=== PATIENT | female | born 1955 | race Caucasian/White ===

== ENCOUNTER → 2019-10-06 13:11 | Outpatient (CLI) | payer MEDICARE, SELFPAY ==
[2019-10-02 13:24] VITALS: BMI 34.9
--- NOTE | 2019-10-06 13:19 | CT_ITS ---
STUDY: CTA OF THE ABDOMINAL AORTA AND BILATERAL LOWER EXTREMITIES REASON FOR EXAM: Female, 64 years old. ATHEROSCLEROSIS OF AORTA, LT LEG PAIN/CRAMPING, PVD, LT LEG WORSE THAN RT, TOES ON LT FOOT TURNING BLACK, DIABETIC ULCER ON LT FOOT, HX-CVA X 2, HTN, DB -- UNABLE TO TRACE A RT PERONEAL RADIATION DOSAGE (If Supplied By Facility): CTDIvol = ( 5.81 ) mGy, DLP = ( 1579.8 ) mGycm TECHNIQUE: Axial CT angiography multi-detector data acquisition was obtained from the lung bases to the toes following intravenous administration of 75ML ISOVUE 370. Axial images and MIP images were reconstructed from the axial data set. Post-processing of the angiographic images was performed, with multiplanar reformation and 3D reconstruction. Individualized dose optimization techniques were used for this CT. TECHNICAL QUALITY: Good COMPARISON: None. Descriptors of Narrowing: None (0%) Mild (< 50%) Moderate (50-70%) Severe (70-90%) Subtotal/Total Occlusion (90-100%) Non-Evaluable (technically non-diagnostic FINDINGS: Abdominal aorta: There is mild diffuse narrowing. Celiac and superior mesenteric arteries: No demonstrated narrowing. Inferior mesenteric artery: No demonstrated narrowing. Right renal artery(arteries): No demonstrated narrowing. Left renal artery(arteries): No demonstrated narrowing. Small accessory left renal artery is patent as well. Right common iliac artery: No demonstrated narrowing. Right external iliac artery: No demonstrated narrowing. Right internal iliac artery: There is mild diffuse narrowing. Left common iliac artery: No demonstrated narrowing. Left external iliac artery: No demonstrated narrowing. Left internal iliac artery: There is mild diffuse narrowing. RIGHT LOWER EXTREMITY Right common femoral artery: There is mild diffuse narrowing. Right profundus femoris: No demonstrated narrowing. Right superficial femoral: Moderately diseased right superficial femoral artery with a focal severe (80%) stenosis of the adductor canal. Right popliteal artery: Moderately diseased right popliteal artery with a focal severe (80%) stenosis at the superior pole of the patella. Right tibioperoneal trunk: No demonstrated narrowing. Right anterior tibial artery: No demonstrated narrowing. Right posterior tibial artery: Occluded posterior tibial artery with reconstitution at the ankle by the peroneal artery. Right peroneal artery: No demonstrated narrowing. LEFT LOWER EXTREMITY Left common femoral artery: There is mild diffuse narrowing. Left profundus femoris: No demonstrated narrowing. Left superficial femoral: Moderately diffusely diseased left superficial femoral artery with a long segment occlusion at the adductor canal extending to the above-knee popliteal artery. Left popliteal artery: There is moderate diffuse narrowing. Left tibioperoneal trunk: No demonstrated narrowing. Left anterior tibial artery: No demonstrated narrowing. Left posterior tibial artery: No demonstrated narrowing. Left peroneal artery: No demonstrated narrowing. CT/CTA Abd w/Runoff W/WO Contrast IMPRESSION: 1. Mildly diseased abdominal aorta and iliac arteries. 2. No chronic mesenteric ischemia renal artery stenosis. 3. Moderately diseased right superficial femoral artery with a focal severe (80%) stenosis at the adductor canal and a moderately diseased right popliteal artery with another focal severe (80%) stenosis at the superior pole of the patella. Two-vessel runoff on the right with an occluded right posterior tibial artery with reconstitution by the peroneal artery at the ankle. 4. Moderately diseased left superficial femoral artery with a long segment occlusion extending from the adductor canal to the above-knee popliteal artery. Moderately diseased left popliteal artery. Three-vessel runoff. Electronically Signed: Andrade Ratliff MD at 16:49 EST Tel , Service support ,
[2019-10-06 13:46] LABS: CREATININE FINGERSTICK 1.8 mg/dL (0.55-1.02)
== END ==
PROVIDERS: Family Provider Internal Medicine; PCP Internal Medicine; Referring Provider Surgery Vascular Surgery; Visit Provider Surgery Vascular Surgery
DX: I70.0 Atherosclerosis of aorta (principal); I73.9 Peripheral vascular disease, unspecified
CPT/HCPCS: 75635; Q9967

== ENCOUNTER → 2019-10-10 09:51 | Outpatient (CLI) | payer MEDICARE, SELFPAY ==
[2019-10-02 13:24] VITALS: BMI 34.9
[2019-10-09 09:44] LABS: AST(SGOT) 16 U/L (15-37); Alanine Aminotransfer ALT/SGPT 29 U/L (13-56); Albumin, Serum 3.2 g/dL (3.2-5.0); Alkaline Phosphatase 103 U/L (45-117); Anion Gap 2 (5-15); BUN 45 mg/dL (7-18); BUN/Creat Ratio 26.5 RATIO (10-20); Bilirubin, Direct 0.09 mg/dL (0.00-0.30); Calcium,Total 10.1 mg/dL (8.5-10.1); Chloride 109 mmol/L (98-107); Cholesterol 193 mg/dL (200); EST Glomerular Filtration Rate 32 mL/min (>60); Est Glom Filt Rate - Afr Amer 39 mL/min (>60); Globulin 4.4 g/dL (2.2-4.2); Glucose 127 mg/dL (74-106); High Density Lipoprotein 56 mg/dL; Potassium 4.6 mmol/L (3.5-5.1); Protein, Total 7.6 g/dL (6.4-8.2); Sodium Level 140 mmol/L (136-145); Triglycerides 186 mg/dL; Very Low Density Lipoprotein 37 mg/dL (5-40)
--- NOTE | 2019-10-10 09:52 | CDU_ITS ---
Reason For Study: CVA Rt. Velocities/BP Lt. Velocities/BP Prox CCA 128.4/9.7 cm/sec. Prox CCA 88.8/16.3 cm/sec. Mid CCA 91.2/15.1 cm/sec. Mid CCA 92.5/18.8 cm/sec. Dist CCA 70.7/16.8 cm/sec. Dist CCA 68.5/16.8 cm/sec. Prox ICA 143/33.4 cm/sec. Prox ICA 64.2/20 cm/sec. Mid ICA 124.7/37.1 cm/sec. Mid ICA 102.3/32.3 cm/sec. Dist ICA 79/22.5 cm/sec. Dist ICA 109.7/32.3 cm/sec. Rt. ICA/CCA = 1.57. Lt. ICA/CCA = 1.24. Prox ECA 133.9/9.7 cm/sec. Prox ECA 112.1/6.5 cm/sec. Rt. Vert. 39.9/9.1 cm/sec. Lt. Vert. 52.2/14.5 cm/sec. Right Extracranial There is intimal thickening but no significant atherosclerotic plaque noted in the right common carotid artery. There is heterogeneous, irregular atherosclerotic plaque noted in the right internal carotid artery. There is intimal thickening but no significant atherosclerotic plaque noted in the right external carotid artery. Antegrade flow is noted in the right vertebral artery. Left Extracranial There is homogeneous, smooth atherosclerotic plaque noted in the left common carotid artery. There is intimal thickening but no significant atherosclerotic plaque noted in the left internal carotid artery. There is intimal thickening but no significant atherosclerotic plaque noted in the left external carotid artery. Antegrade flow is noted in the left vertebral artery. Procedure Carotid Duplex [id number]. Exam performed in department. Interpretation Summary Heterogenous calcific plaque with shadowing at the proximal right internal carotid 50-69% stenosis right internal carotid <50% stenosis right external carotid No hemodynamically significant plaque left internal carotid with <50% stenosis <50% stenosis left external carotid Patent, antegrade, <50% stenosis bilateral vertebrals Ordering Physician: Cristhian Glover Referring Physician: Pili Crespo M.D. Performed By: Shirley Polk RVT
== END ==
PROVIDERS: Family Provider Internal Medicine; PCP Internal Medicine; Referring Provider Internal Medicine Cardiovascular Disease; Visit Provider Internal Medicine Cardiovascular Disease
DX: E11.9 Type 2 diabetes mellitus without complications (principal); I10 Essential (primary) hypertension; E78.5 Hyperlipidemia, unspecified; Z79.4 Long term (current) use of insulin; Z86.73 Personal history of transient ischemic attack (TIA), and cerebral infarction without residual deficits
CPT/HCPCS: 36415; 80048; 80061; 80076; 93880

== ENCOUNTER → 2019-10-14 14:54 | Outpatient (CLI) | payer MEDICARE, SELFPAY ==
[2019-10-02 13:24] VITALS: BMI 34.9
--- NOTE | 2019-10-14 14:59 | ECHOD_ITS ---
Reason For Study: Abnormal EKG Procedure This was a 2D Doppler, Color Flow transthoracic echocardiogram. Exam performed in department. Left Ventricle Normal size and thickness. The estimated ejection fraction is 65 %. Stage 1 diastolic dysfunction. No regional wall motion abnormalities noted. Right Ventricle Normal size and thickness. Normal systolic function. Atria Normal left atrium. Normal right atrium. Normal atrial septum. Mitral Valve The mitral valve is structurally normal. No prolapse or stenosis seen. Mild mitral annular calcification extending into the posterior leaflet. Tricuspid Valve Normal tricuspid valve. Unable to estimate RV systolic pressure due to insufficient tricuspid regurgitant envelope. Pulmonic Valve Normal pulmonic valve. Great Vessels Normal aortic root. Normal arch. Normal inferior vena cava. Inferior vena cava collapse with sniff. Pericardium/Pleural No pericardial effusion. MMode/2D Measurements & Calculations LVIDd: 4.2 cm IVSd: 1.5 cm Ao root diam: 3.3 cm LVIDs: 2.7 cm LVPWd: 1.4 cm LA dimension: 3.5 cm RVDd: 2.7 cm FS: 35.4 % LAV(MOD-bp): 35.0 ml LA A4 area: 14.6 cm2 RA A4 area: 9.5 cm2 LAV(MOD-bp) Indexed: 18.9 ml/m2 LAV(MOD-sp2): 32.3 ml LAV(MOD-sp4): 37.2 ml Time Measurements MV dec time: 0.15 sec Doppler Measurements & Calculations MV E max fabrice: 94.8 cm/sec Lat Peak E' Fabrice: 6.8 cm/sec Med Peak E' Fabrice: 6.5 cm/sec MV A max fabrice: 124.2 cm/sec E/E' lat: 13.9 E/E' med: 14.5 MV E/A: 0.76 MV V2 max: 133.9 cm/sec MV P1/2t max fabrice: 103.0 cm/sec Ao V2 max: 142.5 cm/sec MV max P.2 mmHg MV P1/2t: 62.8 msec Ao max P.1 mmHg MV V2 mean: 74.6 cm/sec Ao V2 mean: 85.3 cm/sec MV mean P.6 mmHg MV dec slope: 480.7 cm/sec2 Ao mean P.4 mmHg MV V2 VTI: 22.0 cm MVA(P1/2t): 3.5 cm2 Ao V2 VTI: 25.2 cm LV V1 max: 109.4 cm/sec PA V2 max: 82.8 cm/sec LV V1 max P.8 mmHg LV V1 mean P.2 mmHg LV V1 mean: 68.1 cm/sec LV V1 VTI: 21.0 cm Interpretation Summary The estimated ejection fraction is 65 %. Stage 1 diastolic dysfunction. Unable to estimate RV systolic pressure due to insufficient tricuspid regurgitant envelope. Ordering Physician: Cristhian Glover Referring Physician: Cristhian Glover Performed By: Maxi Grossman RCS
== END ==
PROVIDERS: Family Provider Internal Medicine; PCP Internal Medicine; Referring Provider Internal Medicine Cardiovascular Disease; Visit Provider Internal Medicine Cardiovascular Disease
DX: R94.31 Abnormal electrocardiogram [ECG] [EKG] (principal); Z86.73 Personal history of transient ischemic attack (TIA), and cerebral infarction without residual deficits; E11.9 Type 2 diabetes mellitus without complications; G47.33 Obstructive sleep apnea (adult) (pediatric); Z79.4 Long term (current) use of insulin
CPT/HCPCS: 93306

== ENCOUNTER → 2019-10-24 10:17 | Outpatient (CLI) | payer MEDICARE, SELFPAY ==
[2019-10-02 13:24] VITALS: BMI 34.9
--- NOTE | 2019-10-24 10:20 | STEWCON_ITS ---
Reason For Study: PRE OPERATIVE Stress Results Protocol: Dobutamine Stress Echo With Definity Maximum Predicted HR: 158 bpm Target HR: 134 bpm % Maximum Predicted HR: 85 % DurationHeart Rate Stage (mm:ss) (bpm) BP Dose Comment BASELINE 87 170/70 8 CC DEFINITY FOR TEST STAGE 1 3:00 96 178/6010.00 STAGE 2 3:00 121 182/6020.00 STAGE 3 3:10 134 186/5830.00 RECOVERY 94 142/70 Stress Duration: 9:10 mm:ss Maximum Stress HR: 134 bpm Baseline Echocardiogram Findings The estimated ejection fraction is 65 %. Stress Echo Wall motion Data Resting WM Intermediate WM Stress WM Resting Wall Motion Wall Motion Stress No regional wall motion No regional wall motion abnormalities noted. abnormalities noted. EKG Data The baseline ECG displays normal sinus rhythm. The patient was titrated from 10 mcg to a maximun of 30 mcg of dobutamine during the stress. The maximum heart rate attained was 136 beats per minute. This was 86% of maximum predicted heart rate. During dobutamine infusion, there were no ST or T wave changes noted to suggest ischemia. No clinical angina was noted. No arrhythmias noted. Interpretation Summary The estimated ejection fraction is 65 %. Normal, adequate, dobutamine echocardiogram. Negative for ischemia by EKG and echocardiographic criteria. No anginal symptoms noted. No arrhythmias noted. Hypertensive blood pressure response to dobutamine. Final LVEF is 75%. Test terminated due to the attainment target heart rate. Decrease sensitivity due to poor echo windows requiring Definity agent. No complications. The study was technically difficult. Contrast injection was performed. Ordering Physician: Cristhian Glover Referring Physician: Cristhian Glover Performed By: Mila Max, JOURDAN, RVT
== END ==
PROVIDERS: Family Provider Internal Medicine; PCP Internal Medicine; Referring Provider Internal Medicine Cardiovascular Disease; Visit Provider Internal Medicine Cardiovascular Disease
DX: Z01.810 Encounter for preprocedural cardiovascular examination (principal); E11.40 Type 2 diabetes mellitus with diabetic neuropathy, unspecified; E11.65 Type 2 diabetes mellitus with hyperglycemia; E11.9 Type 2 diabetes mellitus without complications; I10 Essential (primary) hypertension; E78.5 Hyperlipidemia, unspecified; I69.359 Hemiplegia and hemiparesis following cerebral infarction affecting unspecified side; I73.9 Peripheral vascular disease, unspecified; G47.33 Obstructive sleep apnea (adult) (pediatric); Z79.4 Long term (current) use of insulin
CPT/HCPCS: 93017; 93350; J7040; Q9957; A4216; C8928

== ENCOUNTER 2019-11-27 12:27 | Emergency (ER) | payer MEDICARE, SELFPAY ==
[2019-10-02 13:24] VITALS: BMI 34.9
[2019-11-27 12:29] VITALS: BP 124/58; PULSE 85; RESP 16; TEMP 36.1; O2SAT 98; BMI 34.2
--- NOTE | 2019-11-27 12:46 | ED.VIS.GEN ---
History of Present Illness Chief Complaint: Abn Labs Detail of Chief Complaint: Dyspnea, fatigue and hemoglobin of 6.1 Informant: Patient, Significant Other, PCP Onset: Days Context: Gradual Onset Timing: Continuous Quality: Symptomatic anemia Location: Patient reports bleeding from external hemorrhoid several days ago Current Severity: No active bleeding past several days Maximum Severity: Moderate Worsened by: Blood with bowel movement Relieved by: Nothing Associated Symptoms: Fatigue, dyspnea, generalized weakness Narrative: Patient is 64-year-old woman with history of peripheral disease secondary diabetes who underwent revascularization of her left lower extremity at [facility]. She was admitted from November 05 to November 12. She was [facility]. Hemoglobin today 6.1. Was 7.5. Patient states she had significant bleeding per rectum with bright red blood secondary to hemorrhoids. She states it was much more than prior. She apparently passed clots. She complains of generalized fatigue. She does not give orthostatic symptoms. She denies anginal symptoms. She does report dyspnea with exertion. She denies bleeding from her gums. She denies blood in her urine. She is on Plavix and Eliquis because of recent surgery with placement of stent and revascularization of the left lower extremity. 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 Prior similar symptoms: No Recent Illness/Hospitalization: Yes - Past Medical History (1) Diabetic neuropathy Status: Acute (2) Constitutional obesity Status: Chronic (3) Diabetes mellitus, type II, insulin dependent Status: Chronic (4) Essential hypertension Status: Chronic (5) GERD (gastroesophageal reflux disease) Status: Chronic (6) Gastroparesis Status: Chronic (7) Hemiparesis affecting dominant side as late effect of stroke Status: Chronic (8) Hyperlipidemia Status: Chronic (9) Obstructive sleep apnea Status: Chronic Comment: Uses CPAP (10) Peripheral vascular disease Status: Chronic (11) Proliferative diabetic retinopathy associated with type 2 diabetes mellitus Status: Chronic Past Medical History - Allergies and Home Meds Allergies/Adverse Reactions: Allergies meloxicam Adverse Reaction (Intermediate, Verified 09/29/19 11:59) GI upset Sulfa (Sulfonamide Antibiotics) Adverse Reaction (Intermediate, Verified 09/29/19 11:59) Swelling Primary Care Physician: Pili Crespo MD [Primary Care Provider] - Prior records reviewed: Yes Surgical History: - - Recent placement of stent and graft left lower extremity secondary to peripheral arterial disease Lives: Spouse/ Significant Other Smoking Status: Never smoker Alcohol: None Drugs: None Review of Systems General: Reports: Malaise. Denies: Chills, Fever, Subjective, Sweats Eyes: Denies: Visual changes - bilaterally, Blurred Vision - bilaterally ENT: Denies: Rhinorrhea, Sore throat Cardiovascular: Denies: Chest pain, Palpitations Respiratory: Reports: Dyspnea, Dyspnea on exertion. Denies: Cough, Sputum, Orthopnea Gastrointestinal: Denies: Abdominal pain, Nausea, Vomiting, Diarrhea, Melena, Hematochezia Genitourinary: Denies: Dysuria, Hematuria, Frequency Musculoskeletal: Denies: Myalgias, Arthralgias, Neck pain, Back pain, Swelling, Extremity Pain, -, - Skin: Reports: Wounds - Secondary to surgery which are healing without evidence of infection. Denies: Rash Neurological: Reports: Weakness. Denies: Headache Hematologic: Reports: Easy bruising, Easy bleeding Allergy: Denies: Uticaria, Swelling of the mouth Physical Exam Vital Signs/Narrative: Vital Signs Temp Pulse Resp BP Pulse Ox 11/27/19 12:29 97 F L 85 16 124/58 H 98 Inital Vital Signs reviewed: Yes General: Well nourished, Well developed, Obese, No Acute Distress Head: Normocephalic, Atraumatic Eyes: Perrl, EOMI, Pale conjunctiva. Negative for: Scleral icterus ENT: Moist mucous membranes, No rhinorrhea, TM's clear Neck: Supple, Nontender, No lymphadenopathy, No JVD Cardiovascular: Regular rate, Regular rhythm, No murmurs, Normal S1, Normal S2 Respiratory: No distress, CTA bilaterally, Chest nontender Abdomen: Soft, Nontender, Nondistended, Normal bowel sounds Rectal: - - Evidence of external hemorrhoids. No active bleeding. Stool was brown. Back: Nontender, Normal Inspection Extremities: Nontender, No edema Skin: No rash, Pallor, - - Green of left great, fourth and fifth toe. Negative for: Cyanosis, Diaphoresis, Jaundice Neurological: Alert, Oriented x3, Cranial nerves II-XII grossly intact, Normal Strength, Normal DTR. Negative for: Normal Sensation, Normal Gait Psychological: Normal affect Diagnostic/Tx/Re-eval 11/27/19 13:00 Stool Stool Occult Blood (ANICETO) - Final Laboratory Results 11/27/19 11/27/19 11/27/19 12:54 12:54 13:00 WBC 10.2 RBC 2.43 L Hgb 6.8 L Hct 22.9 L MCV 94.2 MCH 28.0 MCHC 29.7 L RDW Std Deviation 57.4 H RDW Coeff of Petar 17.3 H Plt Count 348 MPV 10.1 Sodium 140 Potassium 4.6 Chloride 109 H Carbon Dioxide 25.0 Anion Gap 6 BUN 50 H Creatinine 1.70 H Estim Creat Clear Calc 27.14 Est GFR (MDRD) Af Amer 39 L Est GFR (MDRD) Non-Af 32 L BUN/Creatinine Ratio 29.4 H Glucose 141 H Calcium 9.6 Blood Type A POSITIVE Antibody Screen NEGATIVE Crossmatch See Detail For occult blood negative. Patient received 1 unit of blood in the emergency department. Will discharge to home. - Medical Decision Making Patient with symptomatic anemia. Will type and cross and transfuse. Suspect the anemia is due to recent surgery and bright red blood per rectum due to hemorrhoids. ED Disposition - Plan for ED Patient: Disposition: Home or Assisted Living Diagnosis: Signs and symptoms of anemia, Bleeding external hemorrhoids Instructions: Hemorrhoids Referrals: Pili Crespo MD [Primary Care Provider] - 3-5 Days if not improving
[2019-11-27 12:58] LABS: Hematocrit 22.9 % (37-47); Hemoglobin 6.8 g/dL (12.0-15.0); Mean Corp Hgb Conc 29.7 g/dL (32-36); Mean Corpuscular Volume 94.2 fL (81-99); Mean Platelet Vol. 10.1 fl (6.2-12.0); Platelet Count 348 K/mm3 (150-450); RBC Distribution Width CV 17.3 % (11.6-14.6); RBC Distribution Width SD 57.4 fl (35.1-43.9); Red Blood Count 2.43 M/mm3 (4.2-5.4); White Blood Count 10.2 K/mm3 (4.4-11.0)
[2019-11-27] MEDS: 0.9% Normal Saline 1,000 ML 150 ML IV (13:05)
[2019-11-27 13:12] LABS: Anion Gap 6 (5-15); BUN 50 mg/dL (7-18); BUN/Creat Ratio 29.4 RATIO (10-20); Calcium,Total 9.6 mg/dL (8.5-10.1); Chloride 109 mmol/L (98-107); EST Glomerular Filtration Rate 32 mL/min (>60); Est Glom Filt Rate - Afr Amer 39 mL/min (>60); Estimated Creatinine Clearance 27.14 ml/min; Glucose 141 mg/dL (74-106); Potassium 4.6 mmol/L (3.5-5.1); Sodium Level 140 mmol/L (136-145)
[2019-11-27 14:01] VITALS: BP 154/68; PULSE 89; RESP 16; TEMP 36.8; O2SAT 98
[2019-11-27 14:16] VITALS: BP 150/71; PULSE 89; RESP 18; TEMP 36.7; O2SAT 98
[2019-11-27 15:10] VITALS: BP 164/71; PULSE 85; RESP 16; TEMP 36.6; O2SAT 98
== END 2019-11-27 16:21 | disposition home or self-care (01) ==
PROVIDERS: Emergency Provider Emergency Medicine; PCP Internal Medicine
DX: D64.9 Anemia, unspecified (principal); K62.5 Hemorrhage of anus and rectum; K64.9 Unspecified hemorrhoids; E11.40 Type 2 diabetes mellitus with diabetic neuropathy, unspecified; E11.51 Type 2 diabetes mellitus with diabetic peripheral angiopathy without gangrene; E11.3599 Type 2 diabetes mellitus with proliferative diabetic retinopathy without macular edema, unspecified eye; I10 Essential (primary) hypertension; I69.359 Hemiplegia and hemiparesis following cerebral infarction affecting unspecified side; E78.5 Hyperlipidemia, unspecified; G47.33 Obstructive sleep apnea (adult) (pediatric); K21.9 Gastro-esophageal reflux disease without esophagitis; Z79.82 Long term (current) use of aspirin; Z79.4 Long term (current) use of insulin; Z79.1 Long term (current) use of non-steroidal anti-inflammatories (NSAID); Z79.899 Other long term (current) drug therapy; Z79.02 Long term (current) use of antithrombotics/antiplatelets; E66.8 Other obesity; Z88.8 Allergy status to other drugs, medicaments and biological substances; Z88.2 Allergy status to sulfonamides
CPT/HCPCS: 36430; 80048; 82274; 85027; 86850; 86900; 86901; 86920; 86922; 96360; 96361; 99284; J7030; J7040; P9016; A4216

== ENCOUNTER 2020-05-14 08:52 | Outpatient (RCR) | payer MEDICARE, SELFPAY ==
[2020-05-14 09:06] VITALS: BP 161/61; PULSE 82; RESP 16; TEMP 36.2; BMI 33.3
--- NOTE | 2020-05-14 12:00 | RAD_ITS ---
STUDY: X-RAY - LEFT FOOT CLINICAL: Female, 65 years old. non healing wound TECHNIQUE: 3 view(s) of the foot. COMPARISON: None. FINDINGS: Normal talus, calcaneus, and tarsal bones. Normal visualized subtalar, talonavicular, calcaneocuboid, tarsal and tarsometatarsal articulations. Metatarsals amputated. Normal metatarsophalangeal joint of the great toe. Normal tibial and fibular sesamoid bones. Normal interphalangeal joint of the great toe. Normal phalanges of the great toe. Normal second through fifth metatarsophalangeal joints. Normal interphalangeal joints and phalanges of the lesser toes. The soft tissue structures are unremarkable. Surgical clips anterior lower leg. Vascular calcifications. Soft tissue swelling and possible subcutaneous gas distal stump. Detail obscured by a dressing. RAD/Foot min 3 Views IMPRESSION: Subcutaneous gas cannot be excluded in the distal stump. Triple phase bone scan or MRI with contrast may be helpful. Electronically Signed: Titi Mariee MD at 17:06 EDT , Service support ,
--- NOTE | 2020-05-14 15:03 | HP.PCM_ITS ---
(1) Nonhealing surgical wound Status: Chronic Current Visit: Yes Qualifiers: Encounter type: subsequent encounter Qualified Code(s): T81.89XD - Other complications of procedures, not elsewhere classified, subsequent encounter Code(s): T81.89XA - Other complications of procedures, not elsewhere classified, initial encounter (2) Diabetic foot ulcer Status: Chronic Current Visit: Yes Qualifiers: Diabetic foot ulcer location: unspecified part of foot Diabetes mellitus type: type 2 Laterality: left Non-pressure ulcer stage: with fat layer exposed Qualified Code(s): E11.621 - Type 2 diabetes mellitus with foot ulcer; L97.522 - Non-pressure chronic ulcer of other part of left foot with fat layer exposed Code(s): E11.621 - Type 2 diabetes mellitus with foot ulcer; L97.509 - Non- pressure chronic ulcer of other part of unspecified foot with unspecified severity (3) Diabetic ulcer of foot with fat layer exposed Status: Chronic Current Visit: Yes Qualifiers: Diabetic foot ulcer location: unspecified part of foot Diabetes mellitus type: type 2 Laterality: left Qualified Code(s): E11.621 - Type 2 diabetes mellitus with foot ulcer; L97.522 - Non-pressure chronic ulcer of other part of left foot with fat layer exposed Code(s): E11.621 - Type 2 diabetes mellitus with foot ulcer; L97.502 - Non- pressure chronic ulcer of other part of unspecified foot with fat layer exposed (4) Diabetic neuropathy Status: Acute Current Visit: Yes Qualifiers: Diabetes mellitus type: type 2 Diabetes mellitus complication detail: diabetic polyneuropathy Qualified Code(s): E11.42 - Type 2 diabetes mellitus with diabetic polyneuropathy Code(s): E11.40 - Type 2 diabetes mellitus with diabetic neuropathy, unspecified (5) Diabetes mellitus, type II, insulin dependent Status: Chronic Current Visit: Yes Code(s): E11.9 - Type 2 diabetes mellitus without complications; Z79.4 - [facility] (current) use of insulin (6) History of stroke Status: Chronic Current Visit: No Code(s): Z86.73 - Personal history of transient ischemic attack (TIA), and cerebral infarction without residual deficits Comment: Left hemispheric 2004 (7) Proliferative diabetic retinopathy associated with type 2 diabetes mellitus Status: Chronic Current Visit: Yes Qualifiers: Proliferative retinopathy type: unspecified Laterality: unspecified laterality Qualified Code(s): E11.3599 - Type 2 diabetes mellitus with proliferative diabetic retinopathy without macular edema, unspecified eye Code(s): E11.3599 - Type 2 diabetes mellitus with proliferative diabetic retinopathy without macular edema, unspecified eye (8) Peripheral vascular disease Status: Chronic Current Visit: Yes Code(s): I73.9 - Peripheral vascular disease, unspecified (9) Hyperlipidemia Status: Chronic Current Visit: Yes Qualifiers: Hyperlipidemia type: unspecified Qualified Code(s): E78.5 - Hyperlipidemia, unspecified Code(s): E78.5 - Hyperlipidemia, unspecified (10) PAD (peripheral artery disease) Status: Chronic Current Visit: Yes Code(s): I73.9 - Peripheral vascular disease, unspecified (11) S/P bypass graft of extremity Status: Chronic Current Visit: Yes Code(s): Z95.828 - Presence of other vascular implants and grafts History of Present Illness Date of Service: 05/14/20 Chief Complaint: nonhealing surgical wound at site of left TMA History of Wound: Miriam is pleasant 65 yo female that presents to the wound healing center for evaluation and treatment of a dehiscence of her surgical wound site s/p left TMA which was done December 12, [address] Mendoza has been treating her since the surgery and the dehiscence of the wound. She has been treated with Aquacel Ag and Santyl most recently and has had several infections and treatment with antibiotics with a recent course of Augmentin ending a few days ago. The last xray of her foot was in March and she reports was normal. She has been seeing Dr. Mendoza every 2 weeks and she has been debriding the wound. Miriam reports that prior to surgery she underwent bypass graft of her left lower leg by Dr. Zavaleta for severe PAD and she also has a stent in her left lower leg which was also placed by Dr. Zavaleta. She also has a medical history of DM, CVA, IN and neuropathy. Her last A1C was in March 2020 and she reports that this was 6.5%. She denies any systemic signs of infection at this time. She has been wearing a surgical shoe for off loading and she had Home Health through [facility] previously but her has been doing dressings for her most recently. Past Medical History Past Medical History: Chronic Problems (Last Updated 10/02/19 @ 13:32 by Pushpa Spivey) Nonhealing surgical wound (Chronic) Diabetic foot ulcer (Chronic) Diabetic ulcer of foot with fat layer exposed (Chronic) PAD (peripheral artery disease) (Chronic) S/P bypass graft of extremity (Chronic) Diabetes mellitus, type II, insulin dependent (Chronic) Obstructive sleep apnea (Chronic) Uses CPAP Constitutional obesity (Chronic) History of stroke (Chronic 2004) Left hemispheric 2004 Abnormal EKG (Chronic) Proliferative diabetic retinopathy associated with type 2 diabetes mellitus (Chronic) Gastroparesis (Chronic) GERD (gastroesophageal reflux disease) (Chronic) Peripheral vascular disease (Chronic) Hyperlipidemia (Chronic) Essential hypertension (Chronic) 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) Balance problem (Chronic) Hemiparesis affecting dominant side as late effect of stroke (Chronic) Surgical History: - - Recent placement of stent and graft left lower extremity secondary to peripheral arterial disease Allergies/Adverse Reactions: Allergies meloxicam Adverse Reaction (Intermediate, Verified 05/14/20 09:34) GI upset Sulfa (Sulfonamide Antibiotics) Adverse Reaction (Intermediate, Verified 05/14/20 09:34) Swelling Home Medications: Ambulatory Orders Medication Instructions Recorded aspirin 325 mg tablet 325 mg PO DAILY 09/30/19 atorvastatin 20 mg tablet 20 mg PO DAILY 09/30/19 biotin 5,000 mcg disintegrating 10,000 mcg PO DAILY 09/30/19 tablet cholecalciferol (vitamin D3) 50 2,000 unit PO DAILY 09/30/19 mcg (2,000 unit) tablet ciclopirox 0.77 % topical cream 1 applic TOPICAL DAILY g 09/30/19 clobetasol 0.05 % topical ointment 1 applic TOPICAL DAILY 09/30/19 clotrimazole-betamethasone 1 1 applic TOPICAL BID 09/30/19 %-0.05 % topical cream docusate sodium 100 mg capsule 100 mg PO DAILY PRN 09/30/19 glucosamine 750 [id number] 1 tab PO DAILY tab 09/30/19 no.1 625 mg-C 30 [id number] tablet losartan 100 mg tablet 100 mg PO DAILY 09/30/19 nitroglycerin 0.4 mg sublingual 0.4 mg SUBLINGUAL Q5-15M PRN 09/30/19 tablet valacyclovir 500 mg tablet 500 mg PO DAILY 09/30/19 gabapentin 400 mg capsule 400 mg PO .COMPLEX 10/02/19 hydrochlorothiazide 12.5 mg tablet 12.5 mg PO DAILY #30 tab 10/02/19 insulin glargine 100 unit/mL (3 45 unit SC DAILY ml 10/02/19 mL) subcutaneous pen carvedilol 6.25 mg tablet 6.25 mg PO BID #180 tab 03/23/20 Apixaban [Eliquis] 5 mg PO BID 05/14/20 Ascorbic Acid [Vitamin C] 1,000 mg PO DAILY 05/14/20 Clopidogrel Bisulfate [Plavix] 75 mg PO DAILY 05/14/20 Cyanocobalamin [Vitamin B12] mcg PO DAILY@0800 05/14/20 Dulaglutide [Trulicity] mg SQ QWEEK 05/14/20 Insulin Lispro [Humalog KwikPen] 4 unit SQ TID 05/14/20 Zinc 50 mg PO DAILY 05/14/20 - Family History Maternal Family History: Family History (Last Updated 10/02/19 @ 13:24 by Pushpa Spivey) Father CAD (coronary artery disease) S/P CABG x 3 Diabetes Hypertension Myocardial infarction Mother CAD (coronary artery disease) Stented coronary artery Diabetes Myocardial infarction Hypertension Sister Diabetes Hypertension Lives: Spouse/ Significant Other Smoking Status: Never smoker Tobacco Use: Non-smoker Alcohol: None Drugs: None Review of Systems Constitutional: Denies: Chills, Fever, Weight Change Eyes: Denies: Pain, Vision Change HEENT: Denies: Difficulty Hearing, Difficulty Swallowing, Sinus Congestion Cardiovascular: Denies: Chest Pain, Palpitations Respiratory: Denies: Cough, Shortness of Breath Gastrointestinal: Denies: Diarrhea, Nausea, Vomiting Genitourinary: Denies: Dysuria, Hematuria Musculoskeletal: Reports: Foot Pain Neurological: Reports: Numbness, Tingling Hematologic/ Lymphatic: Reports: Easy Bleeding. Denies: Easy Bruising - Physical Exam Vital Signs Temp Pulse Resp BP 97.2 F L 82 16 161/61 H 05/14/20 09:06 05/14/20 09:06 05/14/20 09:06 05/14/20 09:06 General: Alert, Oriented x3, Cooperative, No apparent distress HEENT: Atraumatic, Normocephalic Oral: Moist Mucosa Lungs: Clear to auscultation Cardiovascular: Regular rate, Regular Rhythm Abdomen: Soft, Non Tender Extremities: Edema Skin: Ulcer/ Wound Wound Measurements and Assessment WC - Nurse 1 - General Ulcer Measurement Start: 05/14/20 09:06 Freq: Status: Active Protocol: Activity Type Activity Date Activity User E-Sign Co-Sign Detail Recorded Client Recorded Date Recorded By Document 05/14/20 09:06 [facility] [id number] 05/14/20 09:26 BM 05/14/20 09:06 Wound Center Nurse 1 [Ulcer Assessment] #1- L LATERAL TMA SITE -Combined with other wound No -Current Size (cm) - Length 2.4 -Current Size (cm) - Width 1.7 -Current Size (cm) - Depth 0.8 -Total Square Cm 4.08 -Date of Last Picture (Recall this 05/14/20 field) -Photo Taken Yes -Epithelialization None Present -Tunneling No -Undermining/Tunneling No -Circular Undermining No -Exudate Amt Small -Exudate Type Serous -Wound Margin Thickened -Granulation Amt None Present (0 %) -Slough/Fibrin Yes -Necrosis Amt Large (67-100%) -Necrotic Tissue Type Adherent Slough -Texture (Katarzyna-wound Skin Appearance) Assessed -Moisture (Katazryna-wound Skin Appearance Assessed ) -Color (Katarzyna-wound Skin Appearance) Assessed, Erythema -Temperature (Katarzyna-wound Skin No Abnormality Appearance) (Pt Warm) -Tenderness on Palpation (Katarzyna-wound No Skin Appearance) -Ulcer Cleansing Rinsed/ Irrigated with Saline -Foul Odor after Cleansing No -Anesthetic Used 4% Lidocaine Solution [Edema Assessment] -Lower Limb Edema Present No -Left Calf (cm) 33 -Left Ankle (cm) 21.5 WC - Nurse 2 - General Ulcer CM Notes Start: 05/14/20 09:06 Freq: Status: Active Protocol: Activity Type Activity Date Activity User E-Sign Co-Sign Detail Recorded Client Recorded Date Recorded By Document 05/14/20 10:12 MW [id number] 05/14/20 10:41 MW 05/14/20 10:12 Wound Center Nurse 2 [Procedure/Treatment] #2 left anterior / medial foot -Time 10:49 -Correct Patient Yes -Correct Side, Site, Position Yes -Correct Procedure Yes -Procedure Performed Yes -Type of Procedure Debridement -Clinical Debridement Subcutaneous -Post Debridement Size (cm) - Length 0.2 -Post Debridement Size (cm) - Width 0.4 -Post Debridement Size (cm) - Depth 0.1 -Total Square (cm) 0.08 -Wound/Ulcer Outcome Not Healed -Ulcer Cleansing Rinsed/ Irrigated with Saline -Foul Odor after Cleansing No -Bioengineered Tissue No -Bleeding Controlled with Pressure -Offloading No -Treatment Response Procedure Tolerated Well #1- L LATERAL TMA SITE -Time 10:19 -Correct Patient Yes -Correct Side, Site, Position Yes -Correct Procedure Yes -Procedure Performed Yes -Type of Procedure Debridement -Clinical Debridement Subcutaneous -Post Debridement Size (cm) - Length 2.3 -Post Debridement Size (cm) - Width 2.6 -Post Debridement Size (cm) - Depth 2.5 -Total Square (cm) 5.98 -Wound/Ulcer Outcome Not Healed -Ulcer Cleansing Rinsed/ Irrigated with Saline -Foul Odor after Cleansing No -Bioengineered Tissue No -Bleeding Controlled with Pressure -Offloading No -Treatment Response Procedure Tolerated Well [See Physician Procedure note for Specifics] Pain Scale: 0-10 Numeric [Pain] -Is Patient Pain Free? Yes Psych/Mental Status: Normal Affect, Appropriate Debridement Note Post-Debridement Measurements/Treatment WC - Nurse 2 - General Ulcer CM Notes Start: 05/14/20 09:06 Freq: Status: Active Protocol: Activity Type Activity Date Activity User E-Sign Co-Sign Detail Recorded Client Recorded Date Recorded By Document 05/14/20 10:12 MW [id number] 05/14/20 10:41 MW 05/14/20 10:12 Wound Center Nurse 2 #2 left anterior / medial foot -Time 10:49 -Correct Patient Yes -Correct Side, Site, Position Yes -Correct Procedure Yes -Procedure Performed Yes -Type of Procedure Debridement -Clinical Debridement Subcutaneous -Post Debridement Size (cm) - Length 0.2 -Post Debridement Size (cm) - Width 0.4 -Post Debridement Size (cm) - Depth 0.1 -Total Square (cm) 0.08 -Wound/Ulcer Outcome Not Healed -Ulcer Cleansing Rinsed/ Irrigated with Saline -Foul Odor after Cleansing No -Bioengineered Tissue No -Bleeding Controlled with Pressure -Offloading No -Treatment Response Procedure Tolerated Well #1- L LATERAL TMA SITE -Time 10:19 -Correct Patient Yes -Correct Side, Site, Position Yes -Correct Procedure Yes -Procedure Performed Yes -Type of Procedure Debridement -Clinical Debridement Subcutaneous -Post Debridement Size (cm) - Length 2.3 -Post Debridement Size (cm) - Width 2.6 -Post Debridement Size (cm) - Depth 2.5 -Total Square (cm) 5.98 -Wound/Ulcer Outcome Not Healed -Ulcer Cleansing Rinsed/ Irrigated with Saline -Foul Odor after Cleansing No -Bioengineered Tissue No -Bleeding Controlled with Pressure -Offloading No -Treatment Response Procedure Tolerated Well Pain Scale: 0-10 Numeric Is Patient Pain Free? Yes Wound debrided: left anterior/medial Laterality: Left Wound Grade/Stage: Kwong grade 1 Type of Debridement: Excisional debridement Anesthesia Used: 4% Lidocaine Solution Depth: Down to and including healthy tissue, in the subcutaneous layer Percentage of wound debrided: 100 Instrument Used: 3mm curette Tissue Removed: Yellow slough, devitalized tissue Severity: Fat Layer Exposed Amount of bleeding with debridement: Mild Bleeding Controlled with: Compression and gauze Patient tolerated procedure well - Additional Wound Wound debrided: Left lateral TMA site Laterality: Left Wound Grade/Stage: Kwong grade 1 Type of Debridement: Excisional debridement Anesthesia Used: 4% Lidocaine Solution Depth: Down to and including healthy tissue, in the subcutaneous layer Percentage of wound debrided: 100 Instrument Used: #15 blade, Forceps Tissue Removed: Yellow slough, devitalized tissue Severity: Fat Layer Exposed Amount of bleeding with debridement: Mild Bleeding Controlled with: Compression and gauze Patient tolerated procedure: Patient tolerated procedure well Assessment/Plan Active Problems (Last Updated 10/02/19 @ 13:32 by Pushpa Spivey) Diabetic neuropathy (Acute) Nonhealing surgical wound (Chronic) Diabetic foot ulcer (Chronic) Diabetic ulcer of foot with fat layer exposed (Chronic) PAD (peripheral artery disease) (Chronic) S/P bypass graft of extremity (Chronic) Diabetes mellitus, type II, insulin dependent (Chronic) Proliferative diabetic retinopathy associated with type 2 diabetes mellitus (Chronic) Peripheral vascular disease (Chronic) Hyperlipidemia (Chronic) Assessment: nonhealing surgical wound of left TMA complicated by diabetes and PAD s/p bypass graft of popliteal artery Plan: Kens wound was evaluated and debrided today at the wound center. Extensive fatty fibrotic tissue removed and she may need further surgical debridement under anesthesia. She was advised to contact Dr. Vergara, her podiatrists partner for possible evaluation regarding this and in the meantime we will plan on placing a wound vac to help manage heavy drainage from the wound as well as encourage granulation of the wound and ultimately healing. An xray was ordered to evaluate for any presence of osteomyelitis that may be inhibiting healing. Until approval of wound vac from insurance, will have her dress her wound with Aquacel Ag packed into the wound and then covered with ABD and gauze. She will also increase her protein intake to encourage healing. She was advised to continue offloading with surgical shoe. There was no evidence of infection at this time and she recently completed a course of Augmentin in the last few days for infection. If signs of infection present will perform wound culture. Most recent A1C from March was 6.5%. She will follow up in 1 week.
== END 2020-05-31 23:59 ==
LOC: WC 08:52
PROVIDERS: PCP Internal Medicine; Referring Provider Family Medicine; Visit Provider Family Medicine
DX: E11.621 Type 2 diabetes mellitus with foot ulcer (principal); L97.522 Non-pressure chronic ulcer of other part of left foot with fat layer exposed; E11.43 Type 2 diabetes mellitus with diabetic autonomic (poly)neuropathy; E11.3599 Type 2 diabetes mellitus with proliferative diabetic retinopathy without macular edema, unspecified eye; E11.51 Type 2 diabetes mellitus with diabetic peripheral angiopathy without gangrene; I10 Essential (primary) hypertension; E78.5 Hyperlipidemia, unspecified; K21.9 Gastro-esophageal reflux disease without esophagitis; I69.351 Hemiplegia and hemiparesis following cerebral infarction affecting right dominant side; G47.33 Obstructive sleep apnea (adult) (pediatric); Z79.4 Long term (current) use of insulin; Z79.01 Long term (current) use of anticoagulants; Z79.02 Long term (current) use of antithrombotics/antiplatelets; Z79.82 Long term (current) use of aspirin; Z79.899 Other long term (current) drug therapy; I25.2 Old myocardial infarction
CPT/HCPCS: 11042; 73630; 99213; G0463

== ENCOUNTER 2020-08-05 11:08 | Emergency (ER) | payer MEDICARE, SELFPAY ==
[2020-08-05 11:08] VITALS: BP 148/68; PULSE 69; RESP 16; TEMP 36.3; O2SAT 98; BMI 33.5
--- NOTE | 2020-08-05 11:27 | RAD_ITS ---
STUDY: X-RAY - RIGHT TIBIA AND FIBULA REASON FOR EXAM: Right tibial/fibular pain and anterior bruising after a fall today. TECHNIQUE: 2 view(s) of the tibia and fibula were obtained. COMPARISON: None. FINDINGS: Normal visualized tibia. Normal visualized fibula. There is vascular calcification. RAD/Tibia & Fibula 2 Views IMPRESSION: No demonstrated fracture. Electronically Signed: Mart Eller MD at 12:19 EST Tel , Service support ,
--- NOTE | 2020-08-05 11:27 | CT_ITS ---
STUDY: CT BRAIN WITHOUT CONTRAST REASON FOR EXAM: Female, 65 years old. TRAUMA, RECENT AMPUTATION, FELL THIS AM, HIT FACE RADIATION DOSAGE (If Supplied By Facility): CTDIvol = ( 44.99 ) mGy, DLP = ( 796.11 ) mGycm TECHNIQUE: Transaxial CT imaging of the brain was performed without administration of intravenous contrast material. Individualized dose optimization techniques were used for this CT. COMPARISON: No relevant priors. FINDINGS: Normal soft tissue structures. Normal calvarium. Normal size ventricles and extra-axial spaces for the patient''s age. Normal white matter tracts of the cerebral hemispheres. Normal basal ganglia and thalami. Normal brainstem. Normal cerebellum. There is no intracranial hemorrhage. There are no findings of an acute ischemic infarction. Normal visualized paranasal sinuses. CT/Brain/Head without Contrast IMPRESSION: Normal unenhanced CT scan of the brain. Electronically Signed: Ben Ruiz, at 12:31 EST , Service support ,
--- NOTE | 2020-08-05 11:27 | CT_ITS ---
STUDY: CT ABDOMEN AND PELVIS WITHOUT CONTRAST REASON FOR EXAM: Female, 65 years old. FALL, BRUISING ON LEFT HIP, RECENT LEFT LOWER LEG AMPUTATION, ON BLOOD THINNERS RADIATION DOSAGE (If Supplied By Facility): CTDIvol = ( 21.47 ) mGy, DLP = ( 1169.61 ) mGycm TECHNIQUE: Transaxial images were obtained from the dome of the diaphragm to the symphysis pubis without oral contrast, and without intravenous contrast. Sagittal and coronal images were reconstructed. Individualized dose optimization techniques were used for this CT. COMPARISON: None. FINDINGS: Minimal increased linear markings at the lung bases suggestive of atelectasis and/or scarring. Small pericardial effusion more prominent along the posterior aspect. Coronary artery calcification. Normal liver. Normal gallbladder and extrahepatic biliary system. Normal spleen. Normal pancreas. Normal bilateral adrenal glands. There are small bilateral nonobstructive intrarenal calculi. Normal visualized stomach. Normal small intestine. Normal colon. The appendix is visualized and appears normal. There is diffuse atherosclerotic calcification of the abdominal aorta, without a demonstrated aneurysm. Normal inferior vena cava. Normal retroperitoneum. Distended urinary bladder. Normal abdominal wall. There are diffuse degenerative changes of the visualized lumbar spine. CT/Abdomen/Pelvis without Cont IMPRESSION: Distended urinary bladder. Small pericardial effusion. Electronically Signed: Ben Ruiz, at 12:37 EST , Service support ,
--- NOTE | 2020-08-05 11:29 | ED.VIS.GEN ---
History of Present Illness Chief Complaint: Fall Narrative: Patient was discharged from the hospital yesterday after a left below the knee amputation. She was doing well however she sustained a mechanical fall while trying to transfer from the toilet. She hit her face, her right tib-fib and the left side of her abdomen. Past Medical History - Allergies and Home Meds Allergies/Adverse Reactions: Allergies meloxicam Adverse Reaction (Intermediate, Verified 08/05/20 11:08) GI upset Sulfa (Sulfonamide Antibiotics) Adverse Reaction (Intermediate, Verified 08/05/20 11:08) Swelling Primary Care Physician: Pili Crespo MD [Primary Care Provider] - Past Medical History: - - Hypertension, hypercholesterolemia, diabetes Surgical History: - - Recent placement of stent and graft left lower extremity secondary to peripheral arterial disease Smoking Status: Never smoker Review of Systems All systems negative except as indicated General: Denies: Fever Eyes: Denies: Visual changes - bilaterally Cardiovascular: Denies: Chest pain Respiratory: Denies: Dyspnea Gastrointestinal: Reports: Abdominal pain. Denies: Nausea Musculoskeletal: Denies: Myalgias Neurological: Reports: - - No loss of consciousness she has forehead abrasion with some tenderness but no headache. Denies: Headache, Weakness Endocrine: Denies: Polyuria Hematologic: Reports: Easy bruising, Easy bleeding Allergy: Denies: Swelling of the mouth, Swelling of the tongue Physical Exam Vital Signs/Narrative: Vital Signs Temp Pulse Resp BP Pulse Ox 08/05/20 11:08 97.3 F L 69 16 148/68 H 98 General: Well nourished, Well developed, - - Patient is initially sitting in the wheelchair and she appears comfortable. Head: Normocephalic Eyes: Perrl, EOMI. Negative for: Pale conjunctiva ENT: Moist mucous membranes, - - There is a left forehead abrasion which is mild Neck: Supple, - - No C-spine tenderness Cardiovascular: Regular rate, Regular rhythm Respiratory: No distress, CTA bilaterally. Negative for: Chest tenderness Abdomen: - - There is left lower small abdominal wall hematoma Back: Nontender, Normal Inspection. Negative for: CVA tenderness Extremities: - - Left below the knee amputation is wrapped I did not unwrap it since it was checked by the visiting nurse this morning. She has a right anterior tib-fib contusion Skin: Normal color, - - Abdominal wall hematoma as above Neurological: Normal Strength, Normal Sensation Diagnostic/Tx/Re-eval - Medical Decision Making Patient is a normal exam. No evidence of significant bleeding she appears well I will discharge with reassurance ED Disposition - Plan for ED Patient: Disposition: Home or Assisted Living Diagnosis: Fall, Contusion Instructions: ED Fall Uncertain Cause, ED Mechanical Fall Referrals: Pili Crespo MD [Primary Care Provider] - 3-5 Days
[2020-08-05 11:51] LABS: Absolute Lymphocyte Count 2.04 X10^3/uL (0.83-4.51); Absolute Neutrophil Count 9.9 X10^3/uL (2.0-7.7); Basophil# 0.07 X10^3/uL; Basophil% 0.5 % (0-1); Eosinophil# 0.42 X10^3/uL; Eosinophils% 3.2 % (0-5); Hematocrit 32.2 % (37-47); Hemoglobin 9.8 g/dL (12.0-15.0); Lymphocyte # 2.04 X10^3/ul (4.0); Lymphocyte % 15.6 % (19-41); Mean Corp Hgb Conc 30.4 g/dL (32-36); Mean Corpuscular Hgb 29.1 pg (27.0-32.0); Mean Corpuscular Volume 95.5 fL (81-99); Mean Platelet Vol. 9.7 fl (6.2-12.0); Monocyte# 0.65 X10^3/uL; NRBC Flagged by Analyzer 0 % (0-5); Neutrophil # 9.86 X10^3/uL (2.7-7.7); Neutrophil % 75.2 % (47-70); Platelet Count 360 K/mm3 (150-450); RBC Distribution Width CV 13.2 % (11.6-14.6); RBC Distribution Width SD 46.4 fl (35.1-43.9); Red Blood Count 3.37 M/mm3 (4.2-5.4); White Blood Count 13.1 K/mm3 (4.4-11.0)
[2020-08-05 12:08] LABS: ALB/GLOB Ratio 0.7 RATIO (0.9-2.4); AST(SGOT) 13 U/L (15-37); Alanine Aminotransfer ALT/SGPT 20 U/L (13-56); Albumin, Serum 3.2 g/dL (3.2-5.0); Alkaline Phosphatase 97 U/L (45-117); Anion Gap 6 (5-15); BUN 38 mg/dL (7-18); BUN/Creat Ratio 27.1 RATIO (10-20); Calcium,Total 9.9 mg/dL (8.5-10.1); Chloride 112 mmol/L (98-107); EST Glomerular Filtration Rate 40 mL/min (>60); Est Glom Filt Rate - Afr Amer 49 mL/min (>60); Estimated Creatinine Clearance 32.53 ml/min; Globulin 4.3 g/dL (2.2-4.2); Glucose 147 mg/dL (74-106); Potassium 4.5 mmol/L (3.5-5.1); Protein, Total 7.5 g/dL (6.4-8.2); Sodium Level 141 mmol/L (136-145)
[2020-08-05 14:15] VITALS: BP 151/63; PULSE 67; RESP 18; O2SAT 99
== END 2020-08-05 14:35 | disposition home or self-care (01) ==
PROVIDERS: Emergency Provider Emergency Medicine; PCP Internal Medicine
DX: S80.11XA Contusion of right lower leg, initial encounter (principal); S30.1XXA Contusion of abdominal wall, initial encounter; S00.81XA Abrasion of other part of head, initial encounter; W19.XXXA Unspecified fall, initial encounter; Y93.9 Activity, unspecified; Y92.9 Unspecified place or not applicable; Y99.9 Unspecified external cause status; Z79.01 Long term (current) use of anticoagulants; E11.51 Type 2 diabetes mellitus with diabetic peripheral angiopathy without gangrene; I10 Essential (primary) hypertension; E78.00 Pure hypercholesterolemia, unspecified; Z79.02 Long term (current) use of antithrombotics/antiplatelets; Z79.82 Long term (current) use of aspirin; Z79.4 Long term (current) use of insulin; Z79.899 Other long term (current) drug therapy; Z89.512 Acquired absence of left leg below knee
CPT/HCPCS: 70450; 73590; 74176; 80053; 85025; 99282; A4216

== ENCOUNTER 2021-01-03 08:37 | Inpatient (IN) | payer MEDICARE, SELFPAY ==
[2020-08-19 15:48] VITALS: BMI 33.5
[2021-01-03] VITALS (11 sets, daily range): BP systolic 122–206; BP diastolic 73–94; PULSE 76–89; RESP 12–16; TEMP 36.1–37; O2SAT 92–99; BMI 31.1; BMI 34.8; BMI 34.7
--- NOTE | 2021-01-03 08:54 | CT_ITS ---
STUDY: CT ABDOMEN AND PELVIS WITH CONTRAST REASON FOR EXAM: Female, 65 years old. Pain RADIATION DOSAGE (If Supplied By Facility): CTDIvol = ( 16.39 ) mGy, DLP = ( 1122.19 ) mGycm TECHNIQUE: Transaxial images were obtained from the dome of the diaphragm to the symphysis pubis without oral contrast. IV 100mL Isovue-300 was administered. Sagittal and coronal images were reconstructed. Individualized dose optimization techniques were used for this CT. COMPARISON: 08/05/2020. FINDINGS: Lung bases: Mild congestion/air trapping. Atelectasis/scar. Heart: Moderate volume pericardial effusion. Cardiomegaly. Coronary artery disease. Liver: Unremarkable. Gallbladder/biliary ducts: Gallbladder distended with phrygian cap. Nondilated biliary ducts. Pancreas: Unremarkable. Spleen: Unremarkable. Adrenal glands: Unremarkable. Kidneys/ureters/bladder: Obstructing right proximal 6 cm ureteral stone (axial image 55 series 2). Mild right hydroureteronephrosis. Right perinephric fat stranding and periureteral fat stranding. Distended urinary bladder without focal wall abnormality. Nondilated left ureter. Additional bilateral nonobstructing renal stones measuring up to 3 mm (axial image 32 series 2). Uterus/adnexa: Partial hysterectomy/atrophy. Large bowel/small bowel: No acute large bowel or small bowel process. Diverticulosis. Appendix: Unremarkable (axial image 81 series 2). Gastroesophageal junction/stomach: Unremarkable. Retroperitoneum/lymph nodes: No intra-abdominal free air. No ascites. No pathologically enlarged lymph nodes. Vascular: Vascular calcifications. No aneurysm. Osseous structures: Degenerative changes. No acute process. Subcutaneous/soft tissues: Minimal body wall edema/third spacing. CT/Abdomen/Pelvis W IV Cont ONLY IMPRESSION: Acute obstructing 6 mm right proximal ureteral stone with mild hydroureteronephrosis Perinephric/periureteral fat stranding concerning for infection (correlate urinalysis) Additional bilateral nonobstructing renal stones Moderate volume pericardial effusion with cardiovascular disease Mild body wall edema/third spacing Electronically Signed: Amauyr Downs DO at 10:12 EDT Tel , Service support ,
[2021-01-03] MEDS: Ondansetron 4 MG/2 ML Vial IV (09:17)
[2021-01-03] MEDS: Morphine 4 MG/ML Syringe IV ×2 (09:17→10:51)
[2021-01-03] MEDS: 0.9% Normal Saline 1,000 ML 1000 ML IV (09:17)
[2021-01-03 09:33] LABS: Absolute Lymphocyte Count 1.88 X10^3/uL (0.83-4.51); Absolute Neutrophil Count 13.8 X10^3/uL (2.0-7.7); Basophil# 0.06 X10^3/uL; Basophil% 0.4 % (0-1); Eosinophil# 0.47 X10^3/uL; Eosinophils% 2.8 % (0-5); Hematocrit 35.8 % (37-47); Hemoglobin 11.5 g/dL (12.0-15.0); Lymphocyte # 1.88 X10^3/ul (4.0); Lymphocyte % 11.1 % (19-41); Mean Corp Hgb Conc 32.1 g/dL (32-36); Mean Corpuscular Hgb 29.9 pg (27.0-32.0); Mean Platelet Vol. 10.5 fl (6.2-12.0); Monocyte# 0.66 X10^3/uL; Monocyte% 3.9 % (0-10); NRBC Flagged by Analyzer 0 % (0-5); Neutrophil # 13.82 X10^3/uL (2.7-7.7); Neutrophil % 81.3 % (47-70); Platelet Count 308 K/mm3 (150-450); RBC Distribution Width CV 14.5 % (11.6-14.6); Red Blood Count 3.85 M/mm3 (4.2-5.4)
[2021-01-03 09:43] LABS: ALB/GLOB Ratio 0.8 RATIO (0.9-2.4); AST(SGOT) 11 U/L (15-37); Alanine Aminotransfer ALT/SGPT 17 U/L (13-56); Albumin, Serum 3.4 g/dL (3.2-5.0); Alkaline Phosphatase 108 U/L (45-117); Anion Gap 3 (5-15); BUN 39 mg/dL (7-18); BUN/Creat Ratio 24.7 RATIO (10-20); Calcium,Total 10.1 mg/dL (8.5-10.1); Chloride 110 mmol/L (98-107); Creatinine, Serum 1.58 mg/dL (0.55-1.02); EST Glomerular Filtration Rate 35 mL/min (>60); Est Glom Filt Rate - Afr Amer 42 mL/min (>60); Estimated Creatinine Clearance 28.82 ml/min; Globulin 4.2 g/dL (2.2-4.2); Glucose 184 mg/dL (74-106); Potassium 4.7 mmol/L (3.5-5.1); Protein, Total 7.6 g/dL (6.4-8.2); Sodium Level 138 mmol/L (136-145)
[2021-01-03 09:50] LABS: Mucous, Urine 0 SEEN /hpf (<or=2+)
[2021-01-03 09:55] LABS: Color, Urine Yellow (Yellow); Glucose, Dipstick Normal (Normal); Ketone-Dipstick Negative (Negative); Leukocyte Esterase-Dipstick 500 /ul (Negative); Nitrite-Dipstick Negative (Negative); Occult Blood-Urine 250 /ul (Negative); Protein-Dipstick 100 mg/dl (Negative); Specific Gravity, Urine 1.015 (1.002-1.030); Urine Bilirubin Dipstick Negative (Negative); Urine Clarity Cloudy (Clear); Urine Urobilinogen Normal (Normal)
[2021-01-03 10:01] LABS: Bacteria 1+ /hpf (None Seen); Red Blood Cells-Urine 50-100 SEEN /hpf (0-5); Squamous Epithelial Cells - UA 0-5 SEEN /hpf (5-10); White Blood Cells 10-25 SEEN /hpf (0-5); Yeast-Urine 1+ /hpf (None Seen)
--- NOTE | 2021-01-03 10:01 | ED.VISSUMM ---
- ER Visit Summary Date of Service: 01/03/21 Chief Complaint: Abdominal pain History of Present Illness: The patient is a [address] Crespo. Patient reports that yesterday she had the abrupt onset of a right lower abdominal pain. She states the pain is sharp. Is 7 out of 10 currently and at worst. Nothing makes this better or worse. She has been nauseated and vomited once. No blood in her emesis. She has had dry heaves. She had 1 episode of diarrhea yesterday. No blood in her stools or black tarry stools. No dysuria or frequency. No personal history of kidney stones. She does have a family history of kidney stones. She is also still has her appendix and gallbladder. Physical Examination: Vitals: Stable. Afebrile. General: Well-nourished and well-developed. Head: Normocephalic atraumatic. Neck: Supple, no lymphadenopathy. No JVD. Nontender. Cardiovascular: Regular rate and rhythm. No murmurs. Respiratory: No respiratory distress. Clear to auscultation bilaterally. Abdominal: Soft, mild right lower quadrant tenderness to palpation, nondistended, normal bowel sounds. No guarding, rebound, or peritoneal signs. Back: Nontender. No CVA tenderness. Extremities: Nontender, no edema. Skin: Normal color, no rash. Neurologic: Alert and oriented ?3. Cranial nerves II through XII are intact. Normal strength and sensation. Psych: Normal affect. Test Results: CBC shows a white count of 17.0 with 81 segmented neutrophils, 11 lymphocytes. H&H is 11.5 and 35.8. Chem-7 shows a chloride of 110, glucose 24, BUN 39, creatinine 1.58. LFTs show an AST of 11. Urinalysis shows leukocytes, blood, 10-25 white blood cells, 50-100 red blood cells, 1+ bacteria. This was sent for culture. Lactic acid is 0.7. Clinical Impression(s) from Imaging Studies Abdomen/Pelvis CT 01/03/21 08:54 IMPRESSION: Acute obstructing 6 mm right proximal ureteral stone with mild hydroureteronephrosis Perinephric/periureteral fat stranding concerning for infection (correlate urinalysis) Additional bilateral nonobstructing renal stones Moderate volume pericardial effusion with cardiovascular disease Mild body wall edema/third spacing Electronically Signed: Amaury Downs DO at 10:12 EDT Tel , Service support , Emergency Department Course and Treatment: Patient had an IV placed. She was given a liter normal saline. She was given morphine and Zofran IV. She is resting more comfortably. She was given Rocephin IV. Treatment Plan: The patient was discussed with Dr. Carrillo and Dr. Hill. She will be admitted to the hospital for further evaluation and treatment. Disposition: Admitted in improved condition. Impression: 1. Right ureterolithiasis. 2. UTI. 3. Hypertension. This note was generated with [employer] dictation software. It may contain incorrect words, spelling, and punctuation that were not noted in review of the chart prior to signing ED Disposition - Plan for ED Patient: Referrals: Pili Crespo MD [Primary Care Provider] -
[2021-01-03] MEDS: Ceftriaxone 1 GM/50 ML BAG IV (10:51)
[2021-01-03 10:53] LABS: Lactic Acid 0.7 mmol/L (0.4-1.9)
--- NOTE | 2021-01-03 12:20 | PCM.HP.STD ---
Problem List (1) Calculus of proximal right ureter Status: Acute (2) Hydronephrosis, right Status: Acute (3) Pyelonephritis of right kidney Status: Acute Comment: Complicated pyelonephritis (4) JOSE on CPAP Status: Chronic (5) Diabetic neuropathy Status: Chronic Qualifiers: Diabetes mellitus type: type 1 Diabetes mellitus complication detail: diabetic polyneuropathy Qualified Code(s): E10.42 - Type 1 diabetes mellitus with diabetic polyneuropathy (6) Nonhealing surgical wound Status: Chronic Qualifiers: (7) Diabetic foot ulcer Status: Chronic Qualifiers: (8) Diabetic ulcer of foot with fat layer exposed Status: Chronic Qualifiers: (9) PAD (peripheral artery disease) Status: Chronic (10) S/P bypass graft of extremity Status: Chronic (11) Obstructive sleep apnea Status: Chronic Comment: Uses CPAP (12) Constitutional obesity Status: Chronic (13) History of stroke Status: Chronic Comment: Left hemispheric 2005 (14) Abnormal EKG Status: Chronic (15) Proliferative diabetic retinopathy associated with type 2 diabetes mellitus Status: Chronic Qualifiers: (16) Gastroparesis Status: Chronic (17) GERD (gastroesophageal reflux disease) Status: Chronic (18) Peripheral vascular disease Status: Chronic (19) Hyperlipidemia Status: Chronic Qualifiers: (20) Essential hypertension Status: Chronic (21) Uncontrolled type 2 diabetes with neuropathy Status: Chronic (22) Balance problem Status: Chronic (23) Hemiparesis affecting dominant side as late effect of stroke Status: Chronic (24) 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 She describes abdominal pain is constant 7-8/10 intensity with some exacerbations, localized, sharp without radiation to right groin/thigh. She had vomiting 3 times yesterday night and then dry heaving. Denies burning micturition, increased frequency, urgency or change in the amount of urine output. Denies fever chills or diaphoresis at home. In ED, blood pressure is high but no fever or chills. Blood pressure 201/87. CT abdomen shows acute obstructing 6 mm right proximal ureteral stone with mild hydroureter chronic versus and perinephric/periureteral fat stranding consistent with pyonephritis. Denies previous history of kidney stone. [] Patient has leukocytosis with left shift and elevated BUN/creatinine compared to baseline. UA positive of pyuria, RBC and LE. 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) JOSE on CPAP (Chronic) Diabetic neuropathy (Chronic) Nonhealing surgical wound (Chronic) Diabetic foot ulcer (Chronic) Diabetic ulcer of foot with fat layer exposed (Chronic) PAD (peripheral artery disease) (Chronic) S/P bypass graft of extremity (Chronic) Obstructive sleep apnea (Chronic) Uses CPAP Constitutional obesity (Chronic) History of stroke (Chronic 2004) Left hemispheric 2004 Abnormal EKG (Chronic) Proliferative diabetic retinopathy associated with type 2 diabetes mellitus (Chronic) Gastroparesis (Chronic) GERD (gastroesophageal reflux disease) (Chronic) Peripheral vascular disease (Chronic) Hyperlipidemia (Chronic) Essential hypertension (Chronic) 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) Balance problem (Chronic) Hemiparesis affecting dominant side as late effect of stroke (Chronic) Medical History: Medical History (Last Updated 08/19/20 @ 15:54 by Mariely Malhotra) JOSE on CPAP (Chronic) G47.33, Z99.89 Diabetes mellitus, type II, insulin dependent (Chronic) E11.9, Z79.4 Obstructive sleep apnea (Chronic) G47.33 Uses CPAP Constitutional obesity (Chronic) E66.8 History of stroke (Chronic) Onset Date: 2004 Z86.73 Left hemispheric 2004 Abnormal EKG (Chronic) R94.31 Proliferative diabetic retinopathy associated with type 2 diabetes mellitus (Chronic) E11.3599 Gastroparesis (Chronic) K31.84 GERD (gastroesophageal reflux disease) (Chronic) K21.9 Peripheral vascular disease (Chronic) I73.9 Hyperlipidemia (Chronic) E78.5 Essential hypertension (Chronic) I10 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) E11.40, E11.65 Balance problem (Chronic) R26.89 Hemiparesis affecting dominant side as late effect of stroke (Chronic) I69.359 Acute pain of left shoulder M25.512 Anxiety F41.9 Carpal tunnel syndrome, bilateral G56.03 Dupuytren's disease of palm M72.0 Genital herpes simplex type 1 infection A60.00 Lichen sclerosus L90.0 Reactive depression F32.9 Recurrent major depression in partial remission F33.41 Allergies meloxicam Adverse Reaction (Intermediate, Verified 01/03/21 08:37) GI upset Sulfa (Sulfonamide Antibiotics) Adverse Reaction (Intermediate, Verified 01/03/21 08:37) Swelling Home Medications: Ambulatory Orders Medication Instructions Recorded aspirin 325 mg tablet 325 mg PO DAILY 09/30/19 atorvastatin 20 mg tablet 20 mg PO QHS 09/30/19 biotin 5,000 mcg disintegrating 5,000 mcg PO QHS 09/30/19 tablet cholecalciferol (vitamin D3) 50 2,000 unit PO DAILY 09/30/19 mcg (2,000 unit) tablet ciclopirox 0.77 % topical cream 1 applic TOPICAL DAILY g 09/30/19 clobetasol 0.05 % topical ointment 1 applic TOPICAL DAILY 09/30/19 clotrimazole-betamethasone 1 1 applic TOPICAL BID 09/30/19 %-0.05 % topical cream glucosamine 750 [id number] 1 tab PO DAILY tab 09/30/19 no.1 625 mg-C 30 xe-[id number] tablet losartan 100 mg tablet 100 mg PO DAILY 09/30/19 nitroglycerin 0.4 mg sublingual 0.4 mg SUBLINGUAL Q5-15M PRN 09/30/19 tablet valacyclovir 500 mg tablet 500 mg PO DAILY 09/30/19 gabapentin 400 mg capsule 400 mg PO DAILY 10/02/19 insulin glargine 100 unit/mL (3 40 unit SC DAILY ml 10/02/19 mL) subcutaneous pen carvedilol 6.25 mg tablet 6.25 mg PO BID #180 tab 03/23/20 Apixaban [Eliquis] 5 mg PO BID 05/14/20 Ascorbic Acid [Vitamin C] 1,000 mg PO DAILY 05/14/20 Clopidogrel Bisulfate [Plavix] 75 mg PO DAILY 05/14/20 Cyanocobalamin [Vitamin B12] 1,000 mcg PO DAILY@0800 05/14/20 Insulin Lispro [Humalog KwikPen] See Protocol SQ UD 05/14/20 Zinc 50 mg PO DAILY 05/14/20 Escitalopram Oxalate [Lexapro] 20 mg PO DAILY 08/05/20 Ferrous Sulfate 325 mg PO TIDCM 08/05/20 Fluconazole [Diflucan] 200 mg PO DAILY 08/05/20 Gabapentin [Neurontin] 1,200 mg PO QHS 08/05/20 Tamsulosin HCl [Flomax] 0.4 mg PO DAILY 08/05/20 Amoxicillin/Potassium Clav 1 tablet PO BID 01/03/21 [Amox-Clav 875-125 mg Tablet] Surgical History: Surgical History (Last Reviewed 08/19/20 @ 15:49 by Mariely Malhotra) History of Z98.891 History of D&C Z98.890 Amputation of left lower extremity below knee Onset Date: ~07/20/20 S88.112A Surgical History: - - Recent placement of stent and graft left lower extremity secondary to peripheral arterial disease Smoking Status: Never smoker Tobacco Use: Non-smoker Alcohol: None Drugs: None Review of Systems Constitutional: Reports: Anorexia, Malaise, Weakness, Fatigue. Denies: Chills, Fever, Weight Change HEENT: Denies: Head Aches, Sinus Congestion, Sinus Drainage Cardiovascular: Denies: Chest Pain, Palpitations Respiratory: Denies: Cough, Shortness of breath at rest, Sputum production Gastrointestinal: Reports: Abdominal Pain, Diarrhea, Nausea, Vomiting. Denies: Hematemesis, Hematochezia, Melena Genitourinary: Denies: Dysuria, Frequency, Urgency Musculoskeletal: Reports: Foot Pain, Joint Pain, - - Left BKA. Denies: Joint Tenderness Skin: Denies: Rash, Wounds Neurological: Reports: Balance problems, Focal weakness, Incoordination, Numbness, Tingling, - - Mild right-sided weakness from previous stroke Psychiatric: Reports: Anxiety, Depression. Denies: Homicidal Ideations, Suicidal Ideations Hematologic/ Lymphatic: Denies: Easy Bruising, Easy Bleeding VTE Information - Inpt Only VTE Present on Admission: No VTE Mechan Device Prophylaxis: None VTE Pharm Prophylaxis ordered?: Yes Patient Problems: Active and Suspected Problems (Last Updated 08/19/20 @ 15:54 by Mariely Malhotra) Calculus of proximal right ureter (Acute) Hydronephrosis, right (Acute) Pyelonephritis of right kidney (Acute) Complicated pyelonephritis Objective: General: Alert, Oriented x3, Cooperative HEENT: Atraumatic, PERRLA, EOMI, Normocephalic Oral: Oral mucosa dry. No Gingival or Mucosal Lesions/ Ulcerations Neck: Supple, No JVD, Negative Carotid Bruits Lungs: Air entry diminished in bilateral lung bases. No crepitation/rhonchi. Cardiovascular: Regular rate, Regular Rhythm, Normal S1, Normal S2, No murmurs Abdomen: Bowel Sounds Present, Soft, Non Tender, Non-Distended : No renal angle tenderness. No suprapubic tenderness. Extremities: No edema, Capillary Refill Less than 3 Seconds Skin: No rashes, No breakdown Musculoskeletal: Left BKA. Mild residual right-sided weakness. Neurological:Mild weakness in right upper and lower extremity, 4/5 grade from previous stroke. Paresthesia in right leg and feet. Cranial nerves II-XII grossly intact. Psych/Mental Status: Normal Affect, Appropriate. - Physical Exam Vitals/I&O's: Vital Signs Temp Pulse Resp BP Pulse Ox 96.9 F L 89 16 201/87 H 95 01/03/21 08:37 01/03/21 08:37 01/03/21 08:37 01/03/21 08:37 01/03/21 08:37 Oxygen Delivery Method Room Air Weight: 170 lb Body Mass Index (BMI) 31.1 Intake and Output for Last 24 Hours 01/01/21 01/02/21 01/03/21 23:59 23:59 23:59 Intake Total 1000 / 1000 Balance 1000 / 1000 Laboratory Results 01/03/21 08:50: WBC 17.0 H, RBC 3.85 L, Hgb 11.5 L, Hct 35.8 L, MCV 93.0, MCH 29.9, MCHC 32.1, RDW Std Deviation 49.0 H, RDW Coeff of Petar 14.5, Plt Count 308, MPV 10.5, Immature Gran % (Auto) 0.500, Neut % (Auto) 81.3 H, Lymph % (Auto) 11.1 L, [place] % (Auto) 3.9, Eos % (Auto) 2.8, Baso % (Auto) 0.4, Absolute Neuts (auto) 13.8 H, Absolute Lymphs (auto) 1.88, Nucleated RBC % 0 01/03/21 08:50: Sodium 138, Potassium 4.7, Chloride 110 H, Carbon Dioxide 25.0, Anion Gap 3 L, BUN 39 H, Creatinine 1.58 H, Estim Creat Clear Calc 28.82, Est GFR (MDRD) Af Amer 42 L, Est GFR (MDRD) Non-Af 35 L, BUN/Creatinine Ratio 24.7 H, Glucose 184 H, Calcium 10.1, Total Bilirubin 0.40, AST 11 L, ALT 17, Alkaline Phosphatase 108, Total Protein 7.6, Albumin 3.4, Globulin 4.2, Albumin/Globulin Ratio 0.8 L 01/03/21 09:44: Urine Color Yellow, Urine Clarity Cloudy, Urine pH 6.0, Ur Specific [place] 1.015, Urine Protein 100 H, Urine Glucose (UA) Normal, Urine Ketones Negative, Urine Occult Blood 250 H, Urine Nitrite Negative, Urine Bilirubin Negative, Urine Urobilinogen Normal, Ur Leukocyte Esterase 500 H, Urine RBC 50-100 SEEN, Urine WBC 10-25 SEEN, Ur Squamous Epith Cells 0-5 SEEN, Urine Bacteria 1+, Urine Mucus 0 SEEN, Urine Yeast 1+ 01/03/21 10:25: Lactic Acid 0.7 Assessment/Plan All Active Problems (Last Updated 08/19/20 @ 15:54 by Mariely Malhotra) Calculus of proximal right ureter (Acute) Hydronephrosis, right (Acute) Pyelonephritis of right kidney (Acute) The patient is a 65 year old F with multiple comorbidities as listed above came to ED with right lumbar region abdominal pain that started yesterday evening along with nausea and vomiting since last night. CT abdomen consistent with right sided complicated pyelonephritis and right hydroureteronephrosis 1. Sepsis due to right-sided complicated pyelonephritis/upper UTI and hydronephrosis from acute obstructing 6 mm right proximal ureteric stone: Patient is being admitted in PCU. Patient lactic acid normal. Urine culture and blood culture x2 ordered. Dr. Carrillo has been consulted from ER for cystoscopy and possible right ureteric stent. IV ceftriaxone 1 g daily. IV fluid normal saline 75 mill per hour for hydration. 2. Hypertensive urgency: Patient has history of peripheral arterial disease, history of stroke: Last blood pressure 122/75. Monitor blood pressure and titrate antihypertensive medications accordingly. 3. Acute kidney injury probably from prerenal/sepsis/ATN on CKD stage IIIb : UA shows proteinuria. BUN/creatinine 39/1.58 elevated from the baseline 38/1.4. IV fluid for hydration. Monitor kidney function and electrolytes. Avoid nephrotoxic medications. 4. 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 Patient on aspirin 325 mg daily, Plavix, atorvastatin and carvedilol. Hold losartan as patient has CHAZ. 5. Diabetes mellitus type 1 complicated with diabetic nephropathy, neuropathy and retinopathy: Patient also has history of obstructive sleep apnea, dyslipidemia. History of mild coronary artery disease but never had heart cath. Last echo in October 2019 shows EF 65% with stage I diastolic dysfunction. Dobutamine stress echo negative for ischemia by EKG and echo criteria. On Lantus and short-acting insulin at home. Dose decreased according to the serum glucose in BMP. On gabapentin dosage discharge as per kidney function. 6. Multiple comorbidities include anemia of chronic disease. VTE prophylaxis: Patient on Eliquis 5 mg twice daily at home. Hold it for cystoscopy and imaging surgery but can resume after procedure. Bilateral SCDs. Living will/advanced directive/end of life care: Patient does not have living will or advanced directive. Her is power of deputy commonwealth's attorney for health. After discussion of benefits/risks procedures involved with full code, DNR CC arrest and DNR CC, the patient opted for full code but there is no improvement in 48 to 72 hours, did not wanted to be vegetable state and wanted withdrawal of life support measures. Initially, patient does want artificial life support including intubation, tube feed, ventilator and/chest compression, central venous catheter, vasopressor and DC shock if needed Total time spent in [id number] encounter in discussion of advanced directive 16 minutes. Inpatient E&M: 64522 Init Hosp L3 Procedures: 36005 Advncd Care Plan 30 Min
--- NOTE | 2021-01-03 13:42 | EKG12_ITS ---
Test Reason : Blood Pressure : / mmHG Vent. Rate : 085 BPM Atrial Rate : 085 BPM P-R Int : 216 ms QRS Dur : 082 ms QT Int : 390 ms P-R-T Axes : 054 009 100 degrees QTc Int : 464 ms Sinus rhythm with 1st degree A-V block Anterior infarct , age undetermined Abnormal ECG No previous ECGs available Confirmed by DIANNA ARCHULETA, JCARLOS ([id number]), purchase request editor CARLI WALKER ([id number]) on 01/07/2021 3:10:18 PM Referred By: LAWSON Confirmed By:JCARLOS BUSTAMANTE MD
[2021-01-03 14:02] LABS: Magnesium 2.1 mg/dL (1.6-2.6)
[2021-01-03] MEDS: 0.9% Saline Lock 10 ML Syringe IV (14:34)
[2021-01-03] MEDS: proCHLORPERazine 10 MG/2 ML Vial 5 MG IV (14:34)
[2021-01-03] MEDS: 0.9% Normal Saline 1,000 ML 75 ML IV (14:34)
[2021-01-03] MEDS: Morphine 2 MG/ML Syringe IV (14:34)
[2021-01-03] MEDS: Carvedilol 6.25 MG Tablet PO ×2 (14:53→22:02)
[2021-01-03 15:26] LABS: Bedside Glucose 202 mg/dL (70-110)
[2021-01-03] MEDS: Escitalopram Oxalate 20 MG Tablet PO (16:13)
[2021-01-03] MEDS: Cyanocobalamin 500 MCG Tablet 1000 MCG PO (16:13)
[2021-01-03] MEDS: Ascorbic Acid 500 MG Tablet 1000 MG PO (16:14)
[2021-01-03] MEDS: hydrALAZINE 50 MG Tablet PO (16:31)
[2021-01-03] MEDS: oxyCODONE 5 MG Tablet PO (16:34)
[2021-01-03] MEDS: Acetaminophen 325 MG Tablet 650 MG PO (16:34)
--- NOTE | 2021-01-03 18:02 | PCM.CONS.GEN ---
Problem List (1) Calculus of proximal right ureter Status: Acute (2) Hydronephrosis, right Status: Acute (3) Pyelonephritis of right kidney Status: Acute Comment: Complicated pyelonephritis Reason for Consult Date of Consultation: 01/03/21 Reason for Consultation: Right ureteral calculus with hydronephrosis and urinary tract infection/pyelonephritis History of Present Illness: The patient is a 65 year old F with diabetes developed acute onset right lower quadrant abdominal pain with nausea and vomiting that started yesterday. No fevers or chills. She has never had a urinary calculus prior to this. She has had intermittent urinary tract infections in the past. She denies hematuria, dysuria, urgency or frequency. She presented to the emergency room and on evaluation was identified as having a right ureteral calculus. 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) JOSE on CPAP (Chronic) Diabetic neuropathy (Chronic) Nonhealing surgical wound (Chronic) Diabetic foot ulcer (Chronic) Diabetic ulcer of foot with fat layer exposed (Chronic) PAD (peripheral artery disease) (Chronic) S/P bypass graft of extremity (Chronic) Obstructive sleep apnea (Chronic) Uses CPAP Constitutional obesity (Chronic) History of stroke (Chronic 2004) Left hemispheric 2004 Abnormal EKG (Chronic) Proliferative diabetic retinopathy associated with type 2 diabetes mellitus (Chronic) Gastroparesis (Chronic) GERD (gastroesophageal reflux disease) (Chronic) Peripheral vascular disease (Chronic) Hyperlipidemia (Chronic) Essential hypertension (Chronic) 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) E11.40, E11.65 Balance problem (Chronic) R26.89 Hemiparesis affecting dominant side as late effect of stroke (Chronic) I69.359 Acute pain of left shoulder M25.512 Anxiety F41.9 Carpal tunnel syndrome, bilateral G56.03 Dupuytren's disease of palm M72.0 Genital herpes simplex type 1 infection A60.00 Lichen sclerosus L90.0 Reactive depression F32.9 Recurrent major depression in partial remission F33.41 Allergies meloxicam Adverse Reaction (Intermediate, Verified 01/03/21 08:37) GI upset Sulfa (Sulfonamide Antibiotics) Adverse Reaction (Intermediate, Verified 01/03/21 08:37) Swelling Home Medications: Ambulatory Orders Medication Instructions Recorded aspirin 325 mg tablet 325 mg PO DAILY 09/30/19 atorvastatin 20 mg tablet 20 mg PO QHS 09/30/19 biotin 5,000 mcg disintegrating 5,000 mcg PO QHS 09/30/19 tablet cholecalciferol (vitamin D3) 50 2,000 unit PO DAILY 09/30/19 mcg (2,000 unit) tablet ciclopirox 0.77 % topical cream 1 applic TOPICAL DAILY g 09/30/19 clobetasol 0.05 % topical ointment 1 applic TOPICAL DAILY PRN 09/30/19 clotrimazole-betamethasone 1 1 applic TOPICAL BID 09/30/19 %-0.05 % topical cream glucosamine 750 do-ebukomijmb-vod 1 tab PO DAILY tab 09/30/19 no.1 625 mg-C 30 do-rown-azwz tablet losartan 100 mg tablet 100 mg PO DAILY 09/30/19 nitroglycerin 0.4 mg sublingual 0.4 mg SUBLINGUAL Q5-15M PRN 09/30/19 tablet valacyclovir 500 mg tablet 500 mg PO DAILY 09/30/19 gabapentin 400 mg capsule 400 mg PO DAILY 10/02/19 insulin glargine 100 unit/mL (3 40 unit SC DAILY ml 10/02/19 mL) subcutaneous pen carvedilol 6.25 mg tablet 6.25 mg PO BID #180 tab 03/23/20 Apixaban [Eliquis] 5 mg PO BID 05/14/20 Ascorbic Acid [Vitamin C] 1,000 mg PO DAILY 05/14/20 Clopidogrel Bisulfate [Plavix] 75 mg PO DAILY 05/14/20 Cyanocobalamin [Vitamin B12] 1,000 mcg PO DAILY@0800 05/14/20 Insulin Lispro [Humalog KwikPen] See Protocol SQ UD 05/14/20 Zinc 50 mg PO DAILY 05/14/20 Escitalopram Oxalate [Lexapro] 20 mg PO DAILY 08/05/20 Ferrous Sulfate 325 mg PO TIDCM 08/05/20 Fluconazole [Diflucan] 200 mg PO DAILY PRN 08/05/20 Gabapentin [Neurontin] 1,200 mg PO QHS 08/05/20 Surgical History: Surgical History (Last Reviewed 01/03/21 @ 18:[address] Yusra Carrillo MD) History of Z98.891 History of D&C Z98.890 Amputation of left lower extremity below knee Onset Date: ~07/20/20 S88.112A Surgical History: - - Recent placement of stent and graft left lower extremity secondary to peripheral arterial disease Smoking Status: Never smoker Tobacco Use: Non-smoker Alcohol: None Drugs: None Review of Systems Constitutional: Reports: Anorexia, Fatigue. Denies: Chills, Fever Eyes: Denies: Vision Change HEENT: Denies: Visual Changes Cardiovascular: Denies: Chest Pain, Chest Pressure Respiratory: Denies: Cough, Shortness of Breath Gastrointestinal: Reports: Abdominal Pain, Nausea, Vomiting. Denies: Constipation, Diarrhea Genitourinary: Denies: Dysuria, Frequency, Hematuria, Hesitancy, Retention, Urgency Skin: Denies: Wounds Neurological: Denies: Difficulty swallowing Endocrine: Denies: Change in Body Habitus Patient Problems: Active and Suspected Problems (Last Updated 08/19/20 @ 15:54 by Mariely Malhotra) Calculus of proximal right ureter (Acute) Hydronephrosis, right (Acute) Pyelonephritis of right kidney (Acute) Complicated pyelonephritis - Physical Exam Vitals/I&O's: Vital Signs Temp Pulse Resp BP Pulse Ox 98.5 F 78 16 174/76 H 98 01/03/21 17:22 01/03/21 17:22 01/03/21 17:22 01/03/21 17:22 01/03/21 17:22 Oxygen Flow Rate (L/min) 2 Oxygen Delivery Method Nasal Cannula Weight: 86.3 kg Body Mass Index (BMI) 34.7 Intake and Output for Last 24 Hours 01/01/21 01/02/21 01/03/21 23:59 23:59 23:59 Intake Total 1290 / 1290 Balance 1290 / 1290 General: Alert, Oriented x3, Cooperative HEENT: Atraumatic, Normocephalic Oral: Dry Mucosa Neck: Supple, Trachea Midline Lungs: Normal air movement Cardiovascular: Regular rate Abdomen: Soft, Non-Distended Skin: No rashes Musculoskeletal: No Muscle Wasting Neurological: Cranial nerves II-XII grossly intact, Neuro grossly intact Psych/Mental Status: Normal Affect, Alert and oriented to time, place, person, mood and affect Laboratory Results 01/03/21 08:50: WBC 17.0 H, RBC 3.85 L, Hgb 11.5 L, Hct 35.8 L, MCV 93.0, MCH 29.9, MCHC 32.1, RDW Std Deviation 49.0 H, RDW Coeff of Petar 14.5, Plt Count 308, MPV 10.5, Immature Gran % (Auto) 0.500, Neut % (Auto) 81.3 H, Lymph % (Auto) 11.1 L, [place] % (Auto) 3.9, Eos % (Auto) 2.8, Baso % (Auto) 0.4, Absolute Neuts (auto) 13.8 H, Absolute Lymphs (auto) 1.88, Nucleated RBC % 0 01/03/21 08:50: Sodium 138, Potassium 4.7, Chloride 110 H, Carbon Dioxide 25.0, Anion Gap 3 L, BUN 39 H, Creatinine 1.58 H, Estim Creat Clear Calc 28.82, Est GFR (MDRD) Af Amer 42 L, Est GFR (MDRD) Non-Af 35 L, BUN/Creatinine Ratio 24.7 H, Glucose 184 H, Calcium 10.1, Total Bilirubin 0.40, AST 11 L, ALT 17, Alkaline Phosphatase 108, Total Protein 7.6, Albumin 3.4, Globulin 4.2, Albumin/Globulin Ratio 0.8 L 01/03/21 08:50: Magnesium 2.1 01/03/21 09:44: Urine Color Yellow, Urine Clarity Cloudy, Urine pH 6.0, Ur Specific [place] 1.015, Urine Protein 100 H, Urine Glucose (UA) Normal, Urine Ketones Negative, Urine Occult Blood 250 H, Urine Nitrite Negative, Urine Bilirubin Negative, Urine Urobilinogen Normal, Ur Leukocyte Esterase 500 H, Urine RBC 50-100 SEEN, Urine WBC 10-25 SEEN, Ur Squamous Epith Cells 0-5 SEEN, Urine Bacteria 1+, Urine Mucus 0 SEEN, Urine Yeast 1+ 01/03/21 10:25: Lactic Acid 0.7 01/03/21 14:54: POC Glucose 202 H Current Medications Acetaminophen (Acetaminophen 325 Mg Tablet) 650 mg PO Q6H PRN PRN PRN Reason: Pain Score 1-10/Temp > 100.7 F Last Admin: 01/03/21 16:34 Dose: 650 mg Documented by: Al Hydroxide/Mg Hydroxide (Mag Hydrox/Al Hydrox/Simeth 30 Ml Udc) 30 ml PO Q6H PRN PRN PRN Reason: Gastric Burning Albuterol Sulfate (Albuterol 2.5 Mg/3 Ml Vial.Neb.) 2.5 mg INHALATION Q2H PRN PRN PRN Reason: SOB/Wheezing Apixaban (Apixaban 5 Mg Tablet) 5 mg PO BID [facility] Ascorbic Acid (Ascorbic Acid 500 Mg Tablet) 1,000 mg PO DAILY [facility] Last Admin: 01/03/21 16:14 Dose: 1,000 mg Documented by: Aspirin (Aspirin 81 Mg Tab.Chew) 81 mg [facility] Atorvastatin Calcium (Atorvastatin Calcium 20 Mg Tablet) 20 mg PO QHS [facility] Carvedilol (Carvedilol 6.25 Mg Tablet) 6.25 mg PO BID [facility] Last Admin: 01/03/21 14:53 Dose: 6.25 mg Documented by: Ciclopirox Olamine (Ciclopirox 15 Gm Tube) 1 applic TOPICAL DAILY [facility]; Protocol Clopidogrel Bisulfate (Clopidogrel Bisulfate 75 Mg Tablet) 75 mg PO DAILY [facility] Cyanocobalamin (Cyanocobalamin 500 Mcg Tablet) 1,000 mcg PO DAILY@0800 [facility] Last Admin: 01/03/21 16:13 Dose: 1,000 mcg Documented by: Escitalopram Oxalate (Escitalopram Oxalate 20 Mg Tablet) 20 mg PO DAILY [facility] Last Admin: 01/03/21 16:13 Dose: 20 mg Documented by: Ferrous Sulfate (Ferrous Sulfate 325 Mg Tablet) 325 mg PO DAILY@1200 [facility] Gabapentin (Gabapentin 400 Mg Capsule) 400 mg PO DAILY [facility] Gabapentin (Gabapentin 400 Mg Capsule) 400 mg PO QHS [facility] Hydralazine HCl (Hydralazine 20 Mg/Ml Vial) 10 mg IV Q6H PRN PRN PRN Reason: sbp>180 or dbp>120 Hydralazine HCl (Hydralazine 50 Mg Tablet) 50 mg PO TID [facility] Last Admin: 01/03/21 16:31 Dose: 50 mg Documented by: Sodium Chloride () 1,000 mls @ 75 mls/hr IV .[id number] [facility] Last Admin: 01/03/21 14:34 Dose: 75 mls/hr Documented by: Ceftriaxone Sodium (Rocephin) 1 gm in 50 mls @ 100 mls/hr IV Q24 [facility] Stop: 01/11/21 10:01 Sodium Chloride () 500 mls @ 15 mls/hr IV PRN PRN PRN Reason: Blood Transfusion Sodium Chloride () 250 mls @ 15 mls/hr IV .[id number] PRN PRN Reason: Saline Flush Sodium Chloride () 250 mls @ 15 mls/hr IV .[id number] PRN PRN Reason: Additional IVPB Infusion Insulin Glargine (Insulin Glargine 100 Units/Ml Pen) 20 units SC DAILY [facility] Morphine Sulfate (Morphine 2 Mg/Ml Syringe) 2 mg IV Q4H PRN PRN PRN Reason: Pain Score 6-10 Last Admin: 01/03/21 14:34 Dose: 2 mg Documented by: Nitroglycerin (Nitroglycerin (Inpatient Use) 0.4 Mg Tab.Subl) 0.4 mg SL Q5M PRN PRN Reason: CARDIAC/CHEST PAIN Oxycodone HCl (Oxycodone 5 Mg Tablet) 5 mg PO Q4H PRN PRN PRN Reason: Pain Score 4-5 Last Admin: 01/03/21 16:34 Dose: 5 mg Documented by: Prochlorperazine Edisylate (Prochlorperazine 10 Mg/2 Ml Vial) 5 mg IV Q4H PRN PRN PRN Reason: Breakthrough Nausea/Vomiting Last Admin: 01/03/21 14:34 Dose: 5 mg Documented by: Sodium Chloride (0.9% Saline Lock 10 Ml Syringe) 10 - 40 ml IV UD PRN PRN Reason: SALINE FLUSH Last Admin: 01/03/21 14:34 Dose: 10 ml Documented by: Tamsulosin HCl (Tamsulosin Hcl 0.4 Mg Capsule) 0.4 mg PO DAILY [facility] Assessment/Plan All Active Problems (Last Updated 08/19/20 @ 15:54 by Mariely Malhotra) Calculus of proximal right ureter (Acute) Hydronephrosis, right (Acute) Pyelonephritis of right kidney (Acute) Continue antibiotics Bladder scan postvoid residual, Howard catheter for more than 200 cc To the operating room tomorrow for cystoscopy with right ureteral stent insertion N.p.o. after midnight tonight
[2021-01-03] MEDS: 0.9% Normal Saline 1,000 ML 125 ML IV (18:56)
[2021-01-03] MEDS: Gabapentin 400 MG Capsule PO (22:02)
[2021-01-03] MEDS: Atorvastatin Calcium 20 MG Tablet PO (22:02)
[2021-01-03 23:06] LABS: Bedside Glucose 207 mg/dL (70-110)
[2021-01-04] VITALS (25 sets, daily range): BP systolic 137–174; BP diastolic 50–82; PULSE 72–105; RESP 11–18; TEMP 36.3–37.2; O2SAT 93–99; BMI 35.2
[2021-01-04] MEDS: proCHLORPERazine 10 MG/2 ML Vial 5 MG IV ×2 (01:36→05:44)
[2021-01-04] MEDS: oxyCODONE 5 MG Tablet PO (01:38)
[2021-01-04] MEDS: 0.9% Normal Saline 1,000 ML 125 ML IV ×2 (01:40→09:49)
--- NOTE | 2021-01-04 05:55 | EKG12_ITS ---
Test Reason : AM EKG Blood Pressure : / mmHG Vent. Rate : 093 BPM Atrial Rate : 093 BPM P-R Int : 208 ms QRS Dur : 070 ms QT Int : 346 ms P-R-T Axes : 046 028 099 degrees QTc Int : 430 ms Normal sinus rhythm Anteroseptal infarct , age undetermined Abnormal ECG When compared with ECG of 03-JAN-2021 14:12, MANUAL COMPARISON REQUIRED, DATA IS UNCONFIRMED Confirmed by DIANNA ARCHULETA, JCARLOS ([id number]), editorial manager CARLI WALKER ([id number]) on 01/07/2021 3:06:10 PM Referred By: LAWSON Confirmed By:JCARLOS BUSTAMATNE MD
[2021-01-04 06:20] LABS: Absolute Lymphocyte Count 1.15 X10^3/uL (0.83-4.51); Absolute Neutrophil Count 15.3 X10^3/uL (2.0-7.7); Basophil# 0.04 X10^3/uL; Basophil% 0.2 % (0-1); Eosinophil# 0.02 X10^3/uL; Eosinophils% 0.1 % (0-5); Hematocrit 32.4 % (37-47); Lymphocyte # 1.15 X10^3/ul (4.0); Lymphocyte % 6.6 % (19-41); Mean Corp Hgb Conc 30.9 g/dL (32-36); Mean Corpuscular Hgb 29.7 pg (27.0-32.0); Mean Corpuscular Volume 96.1 fL (81-99); Mean Platelet Vol. 10.2 fl (6.2-12.0); Monocyte# 0.76 X10^3/uL; Monocyte% 4.4 % (0-10); NRBC Flagged by Analyzer 0 % (0-5); Neutrophil # 15.26 X10^3/uL (2.7-7.7); Platelet Count 253 K/mm3 (150-450); RBC Distribution Width CV 14.9 % (11.6-14.6); RBC Distribution Width SD 52.8 fl (35.1-43.9); Red Blood Count 3.37 M/mm3 (4.2-5.4); White Blood Count 17.4 K/mm3 (4.4-11.0)
[2021-01-04 06:46] LABS: Anion Gap 3 (5-15); BUN 42 mg/dL (7-18); BUN/Creat Ratio 19.6 RATIO (10-20); Calcium,Total 9.7 mg/dL (8.5-10.1); Chloride 113 mmol/L (98-107); Cholesterol 146 mg/dL (200); Creatinine, Serum 2.14 mg/dL (0.55-1.02); EST Glomerular Filtration Rate 25 mL/min (>60); Est Glom Filt Rate - Afr Amer 30 mL/min (>60); Estimated Creatinine Clearance 21.28 ml/min; Glucose 233 mg/dL (74-106); High Density Lipoprotein 58 mg/dL; Potassium 5.2 mmol/L (3.5-5.1); Sodium Level 138 mmol/L (136-145); Triglycerides 147 mg/dL; Very Low Density Lipoprotein 29 mg/dL (5-40)
[2021-01-04 07:00] LABS: Bedside Glucose 225 mg/dL (70-110)
[2021-01-04] MEDS: Ceftriaxone 1 GM/50 ML BAG IV (08:55)
--- NOTE | 2021-01-04 09:31 | PCM.OPRPT ---
Problem List (1) Calculus of proximal right ureter Status: Acute (2) Hydronephrosis, right Status: Acute (3) Pyelonephritis of right kidney Status: Acute Comment: Complicated pyelonephritis Report of Operation Date of Procedure: 01/04/21 Pre-Operative Diagnosis: Right ureteral calculus with hydronephrosis and acute renal failure Post-Operative Diagnosis: Same Surgery/Procedure Performed:: Cystoscopy, right retrograde pyelogram, right ureteral stent insertion Type of Anesthesia:: None Description of Procedure: Patient is a 65-year-old female with a right ureteral calculus with hydronephrosis and renal acute renal insufficiency who presents for insertion of a right ureteral stent. Informed consent was obtained. Patient was taken to the operating room and placed on the operating room table. Anesthesia monitored the head, neck, airway, IV access and vital signs throughout the case. Once anesthesia was appropriately administered the patient was placed into dorsal lithotomy position was prepped and draped in usual sterile fashion. At this time the cystoscope was inserted through the urethra under direct visualization into the urinary bladder. At this time the right ureteral orifice was identified and intubated with a 0.035 Glidewire. The angle of the Glidewire along with blood coming from the ureteral orifice were concerning to me for appropriate positioning. I remove the Glidewire and performed a retrograde pyelogram using an 8 Pakistani cone-tip catheter and contrast. This confirmed the appropriate anatomic position of the Glidewire. The Glidewire was then reinserted, and a 6 Pakistani 24 cm stent was passed over the wire curling within the renal pelvis and the urinary bladder. The patient's bladder was then drained using an indwelling Howard catheter. The patient was then taken to the intensive care unit. There were no complications during the procedure. Grafts/Implants Used: [id number] JJ stent - Complications none - Admit VTE Documentation VTE Present on Admission: Yes VTE Mechan Device Prophylaxis: SCD's VTE Pharm Prophylaxis ordered?: Yes
[2021-01-04 09:32] LABS: Allen Test POS; Blood Gas Specimen Type ART; O2 Delivery Device ROOM AIR; SITE L RADIAL
[2021-01-04 09:34] LABS: Base Excess -5 mmol/L (-2 to +2); Bicarbonate 21.6 mmol/L (22-26); PO2 39 mmHG (75-100); Total Carbon Dioxide 23 mmol/L
--- NOTE | 2021-01-04 09:35 | NURSING ---
Gave report to Marly RHODES in ICU
[2021-01-04 09:37] LABS: SO2 67 % (95-99)
--- NOTE | 2021-01-04 10:05 | RAD_ITS ---
STUDY: X-RAY CHEST REASON FOR EXAM: Female, 65 years old. SOB TECHNIQUE: Single AP portable view of the chest. COMPARISON: None. FINDINGS: EKG leads overlie the chest The lungs are clear and expanded. There is no demonstrated pleural abnormality. Normal size heart. Normal mediastinum and andrez. Normal visualized pulmonary arteries. Normal visualized aortic arch and descending thoracic aorta. There are diffuse degenerative changes of the visualized thoracic spine. There is degenerative osteoarthritis of the bilateral shoulders. There is no demonstrated abnormality of the visualized soft tissue structures of the upper abdomen. RAD/Chest 1 View (Portable) IMPRESSION: No acute pulmonary process Electronically Signed: Ryan Cruz MD at 11:13 EDT , Service support ,
--- NOTE | 2021-01-04 10:17 | CON.PCM_ITS ---
Reason for Consult Date of Consultation: 01/04/21 Reason for Consultation: Sepsis History of Present Illness: The patient is a 65-year-old female, with a history as outlined below, who initially presented to the emergency department on January 03 with complaints of abdominal pain. Subsequent work-up including CT abdomen revealed an obstructing 6 mm right proximal ureteral stone with hydroureter and fat stranding consistent with pyelonephritis. The patient was admitted to the progressive care unit where she received supplemental IV fluids and antibiotics. In addition, she was noted to be profoundly hypertensive on admission. Nevertheless, she was maintaining appropriate oxygen saturations initially on room air. Laboratory evaluation revealed an elevated white blood cell count to 17,000. Chemistry profile was notable for a creatinine of 1.58. Urinalysis was positive for leukocyte esterase and 1+ urine bacteria. The patient was seen in consultation by urology and was taken to the OR on the morning of January 04, where she underwent cystoscopy and right ureteral stent insertion. For reasons that are not entirely clear, the patient was transferred to the medical intensive care unit postoperatively. Per the bedside anesthesia report given, the patient did receive Benadryl preoperatively for reported nausea. She was given propofol during the procedure. Postoperatively, the patient was apparently difficult to arouse and hypoxic. However, she does have a known history of sleep apnea. On arrival to the ICU, the patient was mentating appropriately, but was drowsy in keeping with having received Benadryl and propofol. She was able to be weaned quickly to 2 L/min of supplemental oxygen via nasal cannula. She is otherwise hemodynamically and clinically stable. Past Medical History Past Medical History (Chronic Problems): Chronic Problems (Last Reviewed 01/03/21 @ 18:[address] 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) JOSE on CPAP (Chronic) Diabetic neuropathy (Chronic) Nonhealing surgical wound (Chronic) Diabetic foot ulcer (Chronic) Diabetic ulcer of foot with fat layer exposed (Chronic) PAD (peripheral artery disease) (Chronic) S/P bypass graft of extremity (Chronic) Obstructive sleep apnea (Chronic) Uses CPAP Constitutional obesity (Chronic) History of stroke (Chronic 2004) Left hemispheric 2004 Abnormal EKG (Chronic) Proliferative diabetic retinopathy associated with type 2 diabetes mellitus (Chronic) Gastroparesis (Chronic) GERD (gastroesophageal reflux disease) (Chronic) Peripheral vascular disease (Chronic) Hyperlipidemia (Chronic) Essential hypertension (Chronic) 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) E11.40, E11.65 Balance problem (Chronic) R26.89 Hemiparesis affecting dominant side as late effect of stroke (Chronic) I69.359 Acute pain of left shoulder M25.512 Anxiety F41.9 Carpal tunnel syndrome, bilateral G56.03 Dupuytren's disease of palm M72.0 Genital herpes simplex type 1 infection A60.00 Lichen sclerosus L90.0 Reactive depression F32.9 Recurrent major depression in partial remission F33.41 Allergies meloxicam Adverse Reaction (Intermediate, Verified 01/03/21 08:37) GI upset Sulfa (Sulfonamide Antibiotics) Adverse Reaction (Intermediate, Verified 01/03/21 08:37) Swelling Home Medications: Ambulatory Orders Medication Instructions Recorded aspirin 325 mg tablet 325 mg PO DAILY 09/30/19 atorvastatin 20 mg tablet 20 mg PO QHS 09/30/19 biotin 5,000 mcg disintegrating 5,000 mcg PO QHS 09/30/19 tablet cholecalciferol (vitamin D3) 50 2,000 unit PO DAILY 09/30/19 mcg (2,000 unit) tablet ciclopirox 0.77 % topical cream 1 applic TOPICAL DAILY g 09/30/19 clobetasol 0.05 % topical ointment 1 applic TOPICAL DAILY PRN 09/30/19 clotrimazole-betamethasone 1 1 applic TOPICAL BID 09/30/19 %-0.05 % topical cream glucosamine 750 [id number] 1 tab PO DAILY tab 09/30/19 no.1 625 mg-C 30 lw-gmia-tpye tablet losartan 100 mg tablet 100 mg PO DAILY 09/30/19 nitroglycerin 0.4 mg sublingual 0.4 mg SUBLINGUAL Q5-15M PRN 09/30/19 tablet valacyclovir 500 mg tablet 500 mg PO DAILY 09/30/19 gabapentin 400 mg capsule 400 mg PO DAILY 10/02/19 insulin glargine 100 unit/mL (3 40 unit SC DAILY ml 10/02/19 mL) subcutaneous pen carvedilol 6.25 mg tablet 6.25 mg PO BID #180 tab 03/23/20 Apixaban [Eliquis] 5 mg PO BID 05/14/20 Ascorbic Acid [Vitamin C] 1,000 mg PO DAILY 05/14/20 Clopidogrel Bisulfate [Plavix] 75 mg PO DAILY 05/14/20 Cyanocobalamin [Vitamin B12] 1,000 mcg PO DAILY@0800 05/14/20 Insulin Lispro [Humalog KwikPen] See Protocol SQ UD 05/14/20 Zinc 50 mg PO DAILY 05/14/20 Escitalopram Oxalate [Lexapro] 20 mg PO DAILY 08/05/20 Ferrous Sulfate 325 mg PO TIDCM 08/05/20 Fluconazole [Diflucan] 200 mg PO DAILY PRN 08/05/20 Gabapentin [Neurontin] 1,200 mg PO QHS 08/05/20 Surgical History: Surgical History (Last Reviewed 01/03/21 @ 18:[address] Yusra Carrillo MD) History of Z98.891 History of D&C Z98.890 Amputation of left lower extremity below knee Onset Date: ~07/20/20 S88.112A Surgical History: - - Recent placement of stent and graft left lower extremity secondary to peripheral arterial disease Smoking Status: Never smoker Tobacco Use: Non-smoker Alcohol: None Drugs: None Review of Systems Constitutional: Denies: Chills, Fever Eyes: Denies: Blurred vision, Double vision HEENT: Denies: Head Aches, Sinus Congestion, Sinus Drainage Cardiovascular: Denies: Chest Pain, Palpitations Respiratory: Denies: Cough, Shortness of breath at rest, Sputum production Gastrointestinal: Reports: Abdominal Pain, Nausea Genitourinary: Denies: Dysuria Musculoskeletal: Reports: Back Pain. Denies: Joint Pain, Joint Tenderness Skin: Denies: Rash, Wounds Neurological: Denies: Numbness, Tingling, Focal weakness Psychiatric: Denies: Anxiety, Depression, Homicidal Ideations, Suicidal Ideations Hematologic/ Lymphatic: Denies: Easy Bruising, Easy Bleeding Patient Problems: Active and Suspected Problems (Last Reviewed 01/03/21 @ 18:[address] Yusra Carrillo MD) Calculus of proximal right ureter (Acute) Hydronephrosis, right (Acute) Pyelonephritis of right kidney (Acute) Complicated pyelonephritis Objective: The patient's most recent lab work, culture data and imaging studies have all been personally reviewed. Urine culture was positive for possible Enterococcus. Rapid coronavirus antigen testing was negative. Blood cultures are pending. - Physical Exam Vitals/I&O's: Vital Signs Temp Pulse Resp BP Pulse Ox 98.2 F 90 14 140/50 H 95 01/04/21 10:00 01/04/21 10:00 01/04/21 10:00 01/04/21 10:00 01/04/21 10:00 Oxygen Flow Rate (L/min) 2 Oxygen Delivery Method Nasal Cannula Weight: 192 lb 7.417 oz Body Mass Index (BMI) 35.2 Intake and Output for Last 24 Hours 01/02/21 01/03/21 01/04/21 23:59 23:59 23:59 Intake Total 1833.75 / 1833.75 1891.67 / 1891.67 Output Total 600 / 625 635 / 635 Balance 1233.75 / 1208.75 1256.67 / 1256.67 General: Alert, Cooperative, No apparent distress HEENT: Atraumatic, PERRLA, Normocephalic Oral: No Gingival or Mucosal Lesions/ Ulcerations Neck: Supple, No Nodes, Trachea Midline Lungs: No rhonchi, No wheeze, No rales, Diminished Cardiovascular: Regular rate, Regular Rhythm Abdomen: Bowel Sounds Present, Soft, Non Tender, Obese Extremities: No clubbing, No cyanosis, No edema, - - Lower extremity amputation Skin: No breakdown Musculoskeletal: No Tenderness to Palpation of Joints or Extremities Lymphatic: No Cervical, Supraclavicular, or Inguinal Adenopathy Neurological: Cranial nerves II-XII grossly intact, Neuro grossly intact Psych/Mental Status: Normal Affect Labs (Last 48 Hours) 01/03/21 01/03/21 01/03/21 08:50 08:50 08:50 WBC 17.0 H RBC 3.85 L Hgb 11.5 L Hct 35.8 L MCV 93.0 MCH 29.9 MCHC 32.1 RDW Std Deviation 49.0 H RDW Coeff of Petar 14.5 Plt Count 308 MPV 10.5 Immature Gran % (Auto) 0.500 Neut % (Auto) 81.3 H Lymph % (Auto) 11.1 L [place] % (Auto) 3.9 Eos % (Auto) 2.8 Baso % (Auto) 0.4 Absolute Neuts (auto) 13.8 H Absolute Lymphs (auto) 1.88 Nucleated RBC % 0 Specimen Type Sample Site pH Bicarbonate Actual Total CO2 Base Excess O2 Saturation ABG pCO2 ABG pO2 Tim Test O2 Delivery Device Crit Call To/Read Back Blood Gas Notified Whom Blood Gas Notified Time Sodium 138 Potassium 4.7 Chloride 110 H Carbon Dioxide 25.0 Anion Gap 3 L BUN 39 H Creatinine 1.58 H Estim Creat Clear Calc 28.82 Est GFR (MDRD) Af Amer 42 L Est GFR (MDRD) Non-Af 35 L BUN/Creatinine Ratio 24.7 H Glucose 184 H Lactic Acid Calcium 10.1 Magnesium 2.1 Total Bilirubin 0.40 AST 11 L ALT 17 Alkaline Phosphatase 108 Total Protein 7.6 Albumin 3.4 Globulin 4.2 Albumin/Globulin Ratio 0.8 L Triglycerides Cholesterol LDL Cholesterol VLDL Cholesterol HDL Cholesterol Urine Color Urine Clarity Urine pH Ur Specific [place] Urine Protein Urine Glucose (UA) Urine Ketones Urine Occult Blood Urine Nitrite Urine Bilirubin Urine Urobilinogen Ur Leukocyte Esterase Urine RBC Urine WBC Ur Squamous Epith Cells Urine Bacteria Urine Mucus Urine Yeast POC Glucose 01/03/21 01/03/21 01/03/21 09:44 10:25 14:54 WBC RBC Hgb Hct MCV MCH MCHC RDW Std Deviation RDW Coeff of Pet[place] Plt Count MPV Immature Gran % (Auto) Neut % (Auto) Lymph % (Auto) [place] % (Auto) Eos % (Auto) Baso % (Auto) Absolute Neuts (auto) Absolute Lymphs (auto) Nucleated RBC % Specimen Type Sample Site pH Bicarbonate Actual Total CO2 Base Excess O2 Saturation ABG pCO2 ABG pO2 Tim Test O2 Delivery Device Crit Call To/Read Back Blood Gas Notified Whom Blood Gas Notified Time Sodium Potassium Chloride Carbon Dioxide Anion Gap BUN Creatinine Estim Creat Clear Calc Est GFR (MDRD) Af Amer Est GFR (MDRD) Non-Af BUN/Creatinine Ratio Glucose Lactic Acid 0.7 Calcium Magnesium Total Bilirubin AST ALT Alkaline Phosphatase Total Protein Albumin Globulin Albumin/Globulin Ratio Triglycerides Cholesterol LDL Cholesterol VLDL Cholesterol HDL Cholesterol Urine Color Yellow Urine Clarity Cloudy Urine pH 6.0 Ur Specific [place] 1.015 Urine Protein 100 H Urine Glucose (UA) Normal Urine Ketones Negative Urine Occult Blood 250 H Urine Nitrite Negative Urine Bilirubin Negative Urine Urobilinogen Normal Ur Leukocyte Esterase 500 H Urine RBC 50-100 SEEN Urine WBC 10-25 SEEN Ur Squamous Epith Cells 0-5 SEEN Urine Bacteria 1+ Urine Mucus 0 SEEN Urine Yeast 1+ POC Glucose 202 H 01/03/21 01/04/21 01/04/21 22:00 06:05 06:05 WBC 17.4 H RBC 3.37 L Hgb 10.0 L Hct 32.4 L MCV 96.1 MCH 29.7 MCHC 30.9 L RDW Std Deviation 52.8 H RDW Coeff of Petar 14.9 H Plt Count 253 MPV 10.2 Immature Gran % (Auto) 0.700 Neut % (Auto) 88.0 H Lymph % (Auto) 6.6 L [place] % (Auto) 4.4 Eos % (Auto) 0.1 Baso % (Auto) 0.2 Absolute Neuts (auto) 15.3 H Absolute Lymphs (auto) 1.15 Nucleated RBC % 0 Specimen Type Sample Site pH Bicarbonate Actual Total CO2 Base Excess O2 Saturation ABG pCO2 ABG pO2 Tim Test O2 Delivery Device Crit Call To/Read Back Blood Gas Notified Whom Blood Gas Notified Time Sodium 138 Potassium 5.2 H Chloride 113 H Carbon Dioxide 22.0 Anion Gap 3 L BUN 42 H Creatinine 2.14 H Estim Creat Clear Calc 21.28 Est GFR (MDRD) Af Amer 30 L Est GFR (MDRD) Non-Af 25 L BUN/Creatinine Ratio 19.6 Glucose 233 H Lactic Acid Calcium 9.7 Magnesium Total Bilirubin AST ALT Alkaline Phosphatase Total Protein Albumin Globulin Albumin/Globulin Ratio Triglycerides 147 Cholesterol 146 LDL Cholesterol 59 VLDL Cholesterol 29 HDL Cholesterol 58 Urine Color Urine Clarity Urine pH Ur Specific [place] Urine Protein Urine Glucose (UA) Urine Ketones Urine Occult Blood Urine Nitrite Urine Bilirubin Urine Urobilinogen Ur Leukocyte Esterase Urine RBC Urine WBC Ur Squamous Epith Cells Urine Bacteria Urine Mucus Urine Yeast POC Glucose 207 H 01/04/21 01/04/21 06:39 08:55 WBC RBC Hgb Hct MCV MCH MCHC RDW Std Deviation RDW Coeff of [place] Plt Count MPV Immature Gran % (Auto) Neut % (Auto) Lymph % (Auto) [place] % (Auto) Eos % (Auto) Baso % (Auto) Absolute Neuts (auto) Absolute Lymphs (auto) Nucleated RBC % Specimen Type ART Sample Site L RADIAL pH 7.30 L Bicarbonate Actual 21.6 L Total CO2 23 Base Excess -5 L O2 Saturation 67 L ABG pCO2 44.0 ABG pO2 39 L* Tim Test POS O2 Delivery Device ROOM AIR Crit Call To/Read Back Yes Blood Gas Notified Whom DEHORTA Blood Gas Notified Time 0856 Sodium Potassium Chloride Carbon Dioxide Anion Gap BUN Creatinine Estim Creat Clear Calc Est GFR (MDRD) Af Amer Est GFR (MDRD) Non-Af BUN/Creatinine Ratio Glucose Lactic Acid Calcium Magnesium Total Bilirubin AST ALT Alkaline Phosphatase Total Protein Albumin Globulin Albumin/Globulin Ratio Triglycerides Cholesterol LDL Cholesterol VLDL Cholesterol HDL Cholesterol Urine Color Urine Clarity Urine pH Ur Specific [place] Urine Protein Urine Glucose (UA) Urine Ketones Urine Occult Blood Urine Nitrite Urine Bilirubin Urine Urobilinogen Ur Leukocyte Esterase Urine RBC Urine WBC Ur Squamous Epith Cells Urine Bacteria Urine Mucus Urine Yeast POC Glucose 225 H Microbiology 01/03/21 09:44 Urine, Clean Catch Urine Culture - Preliminary GPC Poss Enterococcus sp 01/04/21 06:40 Mucosa - Nose SARS-CoV-2 Antigen (Rapid) - Final Clinical Impression(s) from Imaging Studies Abdomen/Pelvis CT 01/03/21 08:54 IMPRESSION: Acute obstructing 6 mm right proximal ureteral stone with mild hydroureteronephrosis Perinephric/periureteral fat stranding concerning for infection (correlate urinalysis) Additional bilateral nonobstructing renal stones Moderate volume pericardial effusion with cardiovascular disease Mild body wall edema/third spacing Electronically Signed: Amaury Downs DO at 10:12 EDT Tel , Service support , Current Medications Acetaminophen (Acetaminophen 325 Mg Tablet) 650 mg PO Q6H PRN PRN PRN Reason: Pain Score 1-10/Temp > 100.7 F Last Admin: 01/03/21 16:34 Dose: 650 mg Documented by: Albuterol Sulfate (Albuterol 2.5 Mg/3 Ml Vial.Neb.) 2.5 mg INHALATION Q2H PRN PRN PRN Reason: SOB/Wheezing Apixaban (Apixaban 5 Mg Tablet) 5 mg PO BID [facility] Last Admin: 01/04/21 10:02 Dose: Not Given Documented by: Ascorbic Acid (Ascorbic Acid 500 Mg Tablet) 1,000 mg PO DAILY [facility] Last Admin: 01/03/21 16:14 Dose: 1,000 mg Documented by: Aspirin (Aspirin 81 Mg Tab.Chew) [facility] Atorvastatin Calcium (Atorvastatin Calcium 20 Mg Tablet) 20 mg PO QHS [facility] Last Admin: 01/03/21 22:02 Dose: 20 mg Documented by: Carvedilol (Carvedilol 6.25 Mg Tablet) 6.25 mg PO BID [facility] Last Admin: 01/03/21 22:02 Dose: 6.25 mg Documented by: Ciclopirox Olamine (Ciclopirox 15 Gm Tube) 1 applic TOPICAL DAILY [facility]; Protocol Clopidogrel Bisulfate (Clopidogrel Bisulfate 75 Mg Tablet) 75 mg PO DAILY [facility] Cyanocobalamin (Cyanocobalamin 500 Mcg Tablet) 1,000 mcg PO DAILY@0800 [facility] Last Admin: 01/03/21 16:13 Dose: 1,000 mcg Documented by: Escitalopram Oxalate (Escitalopram Oxalate 20 Mg Tablet) 20 mg PO DAILY [facility] Last Admin: 01/03/21 16:13 Dose: 20 mg Documented by: Ferrous Sulfate (Ferrous Sulfate 325 Mg Tablet) 325 mg PO DAILY@1200 [facility] Gabapentin (Gabapentin 400 Mg Capsule) 400 mg PO DAILY [facility] Gabapentin (Gabapentin 400 Mg Capsule) 400 mg PO QHS [facility] Last Admin: 01/03/21 22:02 Dose: 400 mg Documented by: Hydralazine HCl (Hydralazine 20 Mg/Ml Vial) 10 mg IV Q6H PRN PRN PRN Reason: sbp>180 or dbp>120 Hydralazine HCl (Hydralazine 50 Mg Tablet) 50 mg PO TID [facility] Last Admin: 01/04/21 06:46 Dose: Not Given Documented by: Sodium Chloride () 500 mls @ 15 mls/hr IV PRN PRN PRN Reason: Blood Transfusion Sodium Chloride () 250 mls @ 15 mls/hr IV .[id number] PRN PRN Reason: Saline Flush Sodium Chloride () 250 mls @ 15 mls/hr IV .[id number] PRN PRN Reason: Additional IVPB Infusion Sodium Chloride () 1,000 mls @ 125 mls/hr IV .Q8H [facility] Last Admin: 01/04/21 09:49 Dose: 125 mls/hr Documented by: Ampicillin Sodium/Sulbactam (Sodium 3 gm/ Sodium Chloride) 112 mls @ 150 mls/hr IV Q12 [facility] Insulin Glargine (Insulin Glargine 100 Units/Ml Pen) 20 units SC DAILY [facility] Morphine Sulfate (Morphine 2 Mg/Ml Syringe) 2 mg IV Q4H PRN PRN PRN Reason: Pain Score 6-10 Last Admin: 01/03/21 14:34 Dose: 2 mg Documented by: Nitroglycerin (Nitroglycerin (Inpatient Use) 0.4 Mg Tab.Subl) 0.4 mg SL Q5M PRN PRN Reason: CARDIAC/CHEST PAIN Nystatin (Nystatin Powder 15gm Bottle) 1 applic TOPICAL BID [facility]; Protocol Oxycodone HCl (Oxycodone 5 Mg Tablet) 5 mg PO Q4H PRN PRN PRN Reason: Pain Score 4-5 Last Admin: 01/04/21 01:38 Dose: 5 mg Documented by: Prochlorperazine Edisylate (Prochlorperazine 10 Mg/2 Ml Vial) 5 mg IV Q4H PRN PRN PRN Reason: Breakthrough Nausea/Vomiting Last Admin: 01/04/21 05:44 Dose: 5 mg Documented by: Sodium Chloride (0.9% Saline Lock 10 Ml Syringe) 10 - 40 ml IV UD PRN PRN Reason: SALINE FLUSH Last Admin: 01/03/21 14:34 Dose: 10 ml Documented by: Tamsulosin HCl (Tamsulosin Hcl 0.4 Mg Capsule) 0.4 mg PO DAILY [facility] Assessment/Plan Active and Suspected Problems (Last Reviewed 01/03/21 @ 18:[address] Yusra Carrillo MD) Calculus of proximal right ureter (Acute) Hydronephrosis, right (Acute) Pyelonephritis of right kidney (Acute) Complicated pyelonephritis RECOMMENDATIONS: 1. Continue antimicrobials while awaiting finalized infectious work-up. 2. Continue systemic anticoagulation. 3. Recommend discontinuation of morphine given renal insufficiency. 4. Wean oxygen to maintain saturations at or above 90%. 5. Encourage incentive spirometer use and mobilize patient as tolerated. 6. Nocturnal CPAP therapy can be offered to the patient while admitted to the hospital. 7. The patient is medically stable for transfer out of the intensive care unit. Will sign off from a critical care perspective. IMPRESSIONS: 1. Sepsis secondary to pyelonephritis The patient remains hemodynamically stable. Plan to continue current supportive measures including antimicrobials as ordered. The patient is now status post ureteral stent placement. 2. Post anesthesia somnolence and hypoxia I would anticipate the patient to be somnolent given that she received Benadryl and propofol for the procedure. Her hypoxia was likely secondary to respiratory depression produced by the aforementioned medications coupled with the fact that she has underlying sleep disordered breathing. Nevertheless, the patient recovered without any form of noninvasive positive pressure ventilatory support needing to be utilized. She is currently maintaining appropriate oxygen satura tions on 2 L/min. Recommend encouraging incentive spirometer use. Wean oxygen to maintain saturations at or above 90%. 3. Obesity/hypertension/peripheral arterial disease/diabetic foot ulcer/diabetes mellitus/obstructive sleep apnea Complicates care, management, recovery and prognosis. Continue home medications as indicated. Although the patient is currently prescribed nocturnal CPAP therapy, her use has been inconsistent. Nevertheless, empiric CPAP therapy can be utilized while the patient is admitted to the hospital on a nightly basis. This note was generated with [employer] dictation software. It may contain incorrect words, spelling, and punctuation that were not noted in checking the note before signing. Inpatient E&M: 15152 Init Hosp L2
[2021-01-04] MEDS: Nystatin Powder 15gm Bottle 1 APPLIC TOPICAL ×2 (11:07→22:11)
[2021-01-04] MEDS: Clopidogrel Bisulfate 75 MG Tablet PO (11:10)
[2021-01-04] MEDS: Aspirin 81 MG TAB.CHEW PO (11:10)
[2021-01-04] MEDS: Carvedilol 6.25 MG Tablet PO ×2 (11:11→22:11)
[2021-01-04] MEDS: Tamsulosin HCl 0.4 MG Capsule PO (11:11)
[2021-01-04] MEDS: Ferrous Sulfate 325 MG Tablet PO (11:12)
[2021-01-04] MEDS: Gabapentin 400 MG Capsule PO ×2 (11:12→22:11)
[2021-01-04] MEDS: Sodium Polystyrene Sulfonate 15 GM/60 ML UDC 30 GM PO (11:16)
[2021-01-04 12:26] LABS: Bedside Glucose 221 mg/dL (70-110)
--- NOTE | 2021-01-04 12:47 | PN_ITS ---
Patient Problems: Active and Suspected Problems (Last Reviewed 01/03/21 @ 18:[address] Yusra Carrillo MD) Calculus of proximal right ureter (Acute) Hydronephrosis, right (Acute) Pyelonephritis of right kidney (Acute) Complicated pyelonephritis Reason for Visit: Follow-up for sepsis secondary to pyelonephritis from infected obstructing right proximal ureteric stone Objective: Anesthesiologist Dr. Saleem called me from OR that patient oxygen dropped down in the 80s, patient short of breath and was put on 100% rebreather. Patient blood pressure was also elevated 174/82. ABG 7.3 0/44/39 on room air. Medically consistent with non-anion gap metabolic acidosis with mild respiratory acidosis. Patient history of obstructive sleep apnea usually she is good on CPAP. Patient was transferred to ICU. No ST changes stable, BP 144/74, heart rate 79, pulse ox 97% on 2 L of oxygen. Normal nonlabored respiratory On physical exam General: Alert, Oriented x3, Cooperative HEENT: Atraumatic, PERRLA, EOMI, Normocephalic Oral: Oral mucosa dry. No Gingival or Mucosal Lesions/ Ulcerations Neck: Supple, No JVD, Negative Carotid Bruits Lungs: Air entry diminished in bilateral lung bases. No crepitation/rhonchi. Cardiovascular: Regular rate, Regular Rhythm, Normal S1, Normal S2, No murmurs Abdomen: Bowel Sounds Present, Soft, Non Tender, Non-Distended : No renal angle tenderness. No suprapubic tenderness. Extremities: No edema, Capillary Refill Less than 3 Seconds Skin: No rashes, No breakdown Musculoskeletal: Left BKA. Mild residual right-sided weakness. Neurological:Mild weakness in right upper and lower extremity, 4/5 grade from previous stroke. Paresthesia in right leg and feet. Cranial nerves II-XII grossly intact. Psych/Mental Status: Normal Affect, Appropriate. Vitals/I&O's: Vital Signs Temp Pulse Resp BP Pulse Ox 98.9 F 79 12 144/74 H 97 01/04/21 12:00 01/04/21 12:00 01/04/21 12:00 01/04/21 12:00 01/04/21 12:00 Oxygen Flow Rate (L/min) 2 Oxygen Delivery Method Nasal Cannula Weight: 192 lb 7.417 oz Body Mass Index (BMI) 35.2 Intake and Output for Last 24 Hours 01/02/21 01/03/21 01/04/21 23:59 23:59 23:59 Intake Total 1833.75 / 1833.75 2399.92 / 2399.92 Output Total 600 / 625 705 / 705 Balance 1233.75 / 1208.75 1694.92 / 1694.92 Microbiology Past 72 Hours 01/03/21 09:44 Urine, Clean Catch Urine Culture - Preliminary GPC Poss Enterococcus sp 01/04/21 06:40 Mucosa - Nose SARS-CoV-2 Antigen (Rapid) - Final Laboratory Results 01/03/21 08:50: Magnesium 2.1 01/03/21 14:54: POC Glucose 202 H 01/03/21 22:00: POC Glucose 207 H 01/04/21 06:05: WBC 17.4 H, RBC 3.37 L, Hgb 10.0 L, Hct 32.4 L, MCV 96.1, MCH 29.7, MCHC 30.9 L, RDW Std Deviation 52.8 H, RDW Coeff of Petar 14.9 H, Plt Count 253, MPV 10.2, Immature Gran % (Auto) 0.700, Neut % (Auto) 88.0 H, Lymph % (Auto) 6.6 L, [place] % (Auto) 4.4, Eos % (Auto) 0.1, Baso % (Auto) 0.2, Absolute Neuts (auto) 15.3 H, Absolute Lymphs (auto) 1.15, Nucleated RBC % 0 01/04/21 06:05: Sodium 138, Potassium 5.2 H, Chloride 113 H, Carbon Dioxide 22.0, Anion Gap 3 L, BUN 42 H, Creatinine 2.14 H, Estim Creat Clear Calc 21.28, Est GFR (MDRD) Af Amer 30 L, Est GFR (MDRD) Non-Af 25 L, BUN/Creatinine Ratio 19.6, Glucose 233 H, Calcium 9.7, Triglycerides 147, Cholesterol 146, LDL Emelina sterol 59, VLDL Cholesterol 29, HDL Cholesterol 58 01/04/21 06:39: POC Glucose 225 H 01/04/21 08:55: Specimen Type ART, Sample Site L RADIAL, pH 7.30 L, Bicarbonate Actual 21.6 L, Total CO2 23, Base Excess -5 L, O2 Saturation 67 L, ABG pCO2 44.0, ABG pO2 39 L*, Tim Test POS, O2 Delivery Device ROOM AIR, Crit Call To/Read Back Yes, Blood Gas Notified Whom MARTHA Blood Gas Notified Time 0856 01/04/21 12:18: POC Glucose 221 H Current Medications Acetaminophen (Acetaminophen 325 Mg Tablet) 650 mg PO Q6H PRN PRN PRN Reason: Pain Score 1-10/Temp > 100.7 F Last Admin: 01/03/21 16:34 Dose: 650 mg Documented by: Albuterol Sulfate (Albuterol 2.5 Mg/3 Ml Vial.Neb.) 2.5 mg INHALATION Q2H PRN PRN PRN Reason: SOB/Wheezing Apixaban (Apixaban 5 Mg Tablet) 5 mg PO BID [facility] Last Admin: 01/04/21 10:02 Dose: Not Given Documented by: Ascorbic Acid (Ascorbic Acid 500 Mg Tablet) 1,000 mg PO DAILY [facility] Last Admin: 01/04/21 11:12 Dose: Not Given Documented by: Aspirin (Aspirin 81 Mg Tab.Chew) 81 mg PO DAILYCM [facility] Last Admin: 01/04/21 11:10 Dose: 81 mg Documented by: Atorvastatin Calcium (Atorvastatin Calcium 20 Mg Tablet) 20 mg PO QHS [facility] Last Admin: 01/03/21 22:02 Dose: 20 mg Documented by: Carvedilol (Carvedilol 6.25 Mg Tablet) 6.25 mg PO BID [facility] Last Admin: 01/04/21 11:11 Dose: 6.25 mg Documented by: Ciclopirox Olamine (Ciclopirox 15 Gm Tube) 1 applic TOPICAL DAILY [facility]; Protocol Clopidogrel Bisulfate (Clopidogrel Bisulfate 75 Mg Tablet) 75 mg PO DAILY [facility] Last Admin: 01/04/21 11:10 Dose: 75 mg Documented by: Cyanocobalamin (Cyanocobalamin 500 Mcg Tablet) 1,000 mcg PO DAILY@0800 [facility] Last Admin: 01/04/21 11:11 Dose: Not Given Documented by: Dextrose (Dextrose 50%-Water 25 Gm/50 Ml Disp.Syrin) 0 gm IV X1 PRN; Protocol PRN Reason: Hypoglycemia Escitalopram Oxalate (Escitalopram Oxalate 20 Mg Tablet) 20 mg PO DAILY [facility] Last Admin: 01/04/21 11:12 Dose: Not Given Documented by: Ferrous Sulfate (Ferrous Sulfate 325 Mg Tablet) 325 mg PO DAILY@1200 [facility] Last Admin: 01/04/21 11:12 Dose: 325 mg Documented by: Gabapentin (Gabapentin 400 Mg Capsule) 400 mg PO DAILY [facility] Last Admin: 01/04/21 11:12 Dose: 400 mg Documented by: Gabapentin (Gabapentin 400 Mg Capsule) 400 mg PO QHS [facility] Last Admin: 01/03/21 22:02 Dose: 400 mg Documented by: Glucagon (Glucagon 1 Mg/Ml Syringe) 1 mg IM .X1 PRN PRN Reason: Hypoglycemia Hydralazine HCl (Hydralazine 20 Mg/Ml Vial) 10 mg IV Q6H PRN PRN PRN Reason: sbp>180 or dbp>120 Hydralazine HCl (Hydralazine 50 Mg Tablet) 50 mg PO TID [facility] Last Admin: 01/04/21 06:46 Dose: Not Given Documented by: Sodium Chloride () 500 mls @ 15 mls/hr IV PRN PRN PRN Reason: Blood Transfusion Sodium Chloride () 250 mls @ 15 mls/hr IV .[id number] PRN PRN Reason: Saline Flush Sodium Chloride () 250 mls @ 15 mls/hr IV .[id number] PRN PRN Reason: Additional IVPB Infusion Sodium Chloride () 1,000 mls @ 125 mls/hr IV .Q8H [facility] Last Infusion: 01/04/21 11:50 Dose: 125 mls/hr Documented by: Ampicillin Sodium/Sulbactam (Sodium 3 gm/ Sodium Chloride) 112 mls @ 150 mls/hr IV Q12 [facility] Last Infusion: 01/04/21 11:50 Dose: Infused Documented by: Insulin Glargine (Insulin Glargine 100 Units/Ml Pen) 40 units SC DAILY [facility] Insulin Glargine (Insulin Glargine 100 Units/Ml Pen) 10 units SC X1 ONE Stop: 01/04/21 12:35 Insulin Human Lispro (Insulin Lispro 100 Unit/Ml Insuln.Pen) 0 unit SC ACHS [facility]; Protocol Morphine Sulfate (Morphine 2 Mg/Ml Syringe) 2 mg IV Q4H PRN PRN PRN Reason: Pain Score 6-10 Last Admin: 01/03/21 14:34 Dose: 2 mg Documented by: Nitroglycerin (Nitroglycerin (Inpatient Use) 0.4 Mg Tab.Subl) 0.4 mg SL Q5M PRN PRN Reason: CARDIAC/CHEST PAIN Nystatin (Nystatin Powder 15gm Bottle) 1 applic TOPICAL BID [facility]; Protocol Last Admin: 01/04/21 11:07 Dose: 1 applic Documented by: Oxycodone HCl (Oxycodone 5 Mg Tablet) 5 mg PO Q4H PRN PRN PRN Reason: Pain Score 4-5 Last Admin: 01/04/21 01:38 Dose: 5 mg Documented by: Prochlorperazine Edisylate (Prochlorperazine 10 Mg/2 Ml Vial) 5 mg IV Q4H PRN PRN PRN Reason: Breakthrough Nausea/Vomiting Last Admin: 01/04/21 05:44 Dose: 5 mg Documented by: Sodium Chloride (0.9% Saline Lock 10 Ml Syringe) 10 - 40 ml IV UD PRN PRN Reason: SALINE FLUSH Last Admin: 01/03/21 14:34 Dose: 10 ml Documented by: Tamsulosin HCl (Tamsulosin Hcl 0.4 Mg Capsule) 0.4 mg PO DAILY [facility] Last Admin: 01/04/21 11:11 Dose: 0.4 mg Documented by: STROKE Vital Signs/Narrative: Vital Signs Temp Pulse Resp BP BP Pulse Ox 01/04/21 12:00 98.9 F 79 12 144/74 H 97 01/04/21 11:38 77 01/04/21 11:00 82 13 137/64 H 96 01/04/21 10:30 98.1 F 85 12 138/71 H 96 01/04/21 10:15 98.4 F 87 13 141/55 H 96 01/04/21 10:00 98.2 F 90 14 140/50 H 95 01/04/21 09:50 93 01/04/21 09:45 98.4 F 90 14 148/70 H 94 01/04/21 09:35 98.6 F 94 17 153/60 H 99 Medical Necessity - Tobacco Use Smoking Status: Never smoker Tobacco Use: Non-smoker Assessment/Plan All Active Problems (Last Reviewed 01/03/21 @ 18:[address] Yusra Carrillo MD) Calculus of proximal right ureter (Acute) Hydronephrosis, right (Acute) Pyelonephritis of right kidney (Acute) The patient is a 65 year old F with multiple comorbidities as listed above came to ED with right lumbar region abdominal pain that started yesterday evening along with nausea and vomiting since last night. CT abdomen consistent with right sided complicated pyelonephritis and right hydroureteronephrosis 1. Sepsis due to right-sided complicated pyelonephritis/upper UTI and hydroureteronephrosis from acute obstructing 6 mm right proximal ureteric stone: Patient was initially admitted in PCU but transferred to ICU when she got hypoxic in PACU room.. Patient lactic acid normal. Dr. Carrillo was consulted. Initially started on IV ceftriaxone but changed to Unasyn today. On IV fluid for renal perfusion. 4: WBC count similar but urine culture shows GPC possible Enterococcus 1000- 10,000 colonies. Although count is not high but will treat with IV Unasyn to cover Enterococcus. Urine culture count may be low because of right ureteric obstruction and not proper drainage at time of urine collection. Blood cultures x2 are pending. Patient had cystoscopy with right ureteral stent insertion on 01/04. Discussed with ID. 2. Hypertensive urgency: Patient has history of peripheral arterial disease, history of stroke: Last blood pressure 122/75. Monitor blood pressure and titrate antihypertensive medications accordingly. /: Blood pressure is controlled. 12 Lead EKG showed sinus rhythm at 85 bpm with first-degree AV block with old anterior infarct. QTC 464 ms. 3. Acute kidney injury probably from prerenal/sepsis/ATN on CKD stage IIIb : UA shows proteinuria. BUN/creatinine 39/1.58 elevated from the baseline 38/1.4. IV fluid for hydration. Monitor kidney function and electrolytes. Avoid nephrotoxic medications. 01/04: BUN/creatinine elevated. Continue IV fluid normal saline. K5.2. Mild hyperkalemia, Kayexalate 30 g 1 dose given. 4. 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 Patient on aspirin 325 mg daily, Plavix, atorvastatin and carvedilol. Hold losartan as patient has CHAZ. Eliquis is temporarily held because patient had hematuria in Howadr catheter. Resume Eliquis once hematuria is controlled. 5. Diabetes mellitus type 1 complicated with diabetic nephropathy, neuropathy and retinopathy: Patient also has history of obstructive sleep apnea, dyslipide arielle. History of mild coronary artery disease but never had heart cath. Last echo in October 2019 shows EF 65% with stage I diastolic dysfunction. Dobutamine stress echo negative for ischemia by EKG and echo criteria. On Lantus and short-acting insulin at home. Dose decreased according to the serum glucose in BMP. On gabapentin dosage discharge as per kidney function. 01/04: Hyperglycemia: Lantus increased 6. Multiple comorbidities include anemia of chronic disease. VTE prophylaxis: Patient on Eliquis 5 mg twice daily at home. Hold it for cystoscopy and imaging surgery but can resume after procedure. Bilateral SCDs. Total time of the visit including total time spent in counseling or coordination of care, (more than 50% of the total time, spent in obtaining medical information from nurses and other ancillary care providers,explaining to the patient about labs, imaging, diagnosis and management), discussion with consultants none anesthesiologist, review of labs and imaging is 30 minutes. Living will/advanced directive/end of life care: Patient does not have living will or advanced directive. Her is power of trademark attorney for health. After discussion of benefits/risks procedures involved with full code, DNR CC arrest and DNR CC, the patient opted for full code but there is no improvement in 48 to 72 hours, did not wanted to be vegetable state and wanted withdrawal of life support measures. Initially, patient does want artificial life support including intubation, tube feed, ventilator and/chest compression, central venous catheter, vasopressor and DC shock if needed Inpatient E&M: 04123 [facility] L3
--- NOTE | 2021-01-04 13:41 | CON.PCM_ITS ---
Problem List (1) Pyelonephritis of right kidney Status: Acute Comment: Complicated pyelonephritis Reason for Consult: pyelo Consulted by: Dr. Hill History of Present Illness: The patient is a 65 year old F presented 01/03 with one day of not feeling well, nausea, R flank pain. No fever or chills. No dysuria. Urine was darker than usual. Came to ED, found to have CHAZ, obstructing R sided stone. Admitted on ceftriaxone, changed to unasyn, taken to OR by Dr. Carrillo today for stent placement. Now in icu, feeling better. Reports recently on 10 day course of augmentin, then changed to amoxicillin due to diarrhea, completed course for toenail infection on 01/02. Diarrhea resolved. Full ROS performed and neg except as noted above. - Medical History Past Medical History (Chronic Problems): Chronic Problems (Last Reviewed 01/03/21 @ 18:[address] 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) JOSE on CPAP (Chronic) Diabetic neuropathy (Chronic) Nonhealing surgical wound (Chronic) Diabetic foot ulcer (Chronic) Diabetic ulcer of foot with fat layer exposed (Chronic) PAD (peripheral artery disease) (Chronic) S/P bypass graft of extremity (Chronic) Obstructive sleep apnea (Chronic) Uses CPAP Constitutional obesity (Chronic) History of stroke (Chronic 2004) Left hemispheric 2004 Abnormal EKG (Chronic) Proliferative diabetic retinopathy associated with type 2 diabetes mellitus (Chronic) Gastroparesis (Chronic) GERD (gastroesophageal reflux disease) (Chronic) Peripheral vascular disease (Chronic) Hyperlipidemia (Chronic) Essential hypertension (Chronic) 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) Balance problem (Chronic) Hemiparesis affecting dominant side as late effect of stroke (Chronic) Allergies/Adverse Reactions: Allergies meloxicam Adverse Reaction (Intermediate, Verified 01/03/21 08:37) GI upset Sulfa (Sulfonamide Antibiotics) Adverse Reaction (Intermediate, Verified 01/03/21 08:37) Swelling Home Medications: Ambulatory Orders Medication Instructions Recorded aspirin 325 mg tablet 325 mg PO DAILY 09/30/19 atorvastatin 20 mg tablet 20 mg PO QHS 09/30/19 biotin 5,000 mcg disintegrating 5,000 mcg PO QHS 09/30/19 tablet cholecalciferol (vitamin D3) 50 2,000 unit PO DAILY 09/30/19 mcg (2,000 unit) tablet ciclopirox 0.77 % topical cream 1 applic TOPICAL DAILY g 09/30/19 clobetasol 0.05 % topical ointment 1 applic TOPICAL DAILY PRN 09/30/19 clotrimazole-betamethasone 1 1 applic TOPICAL BID 09/30/19 %-0.05 % topical cream glucosamine 750 [id number] 1 tab PO DAILY tab 09/30/19 no.1 625 mg-C 30 [id number] tablet losartan 100 mg tablet 100 mg PO DAILY 09/30/19 nitroglycerin 0.4 mg sublingual 0.4 mg SUBLINGUAL Q5-15M PRN 09/30/19 tablet valacyclovir 500 mg tablet 500 mg PO DAILY 09/30/19 gabapentin 400 mg capsule 400 mg PO DAILY 10/02/19 insulin glargine 100 unit/mL (3 40 unit SC DAILY ml 10/02/19 mL) subcutaneous pen carvedilol 6.25 mg tablet 6.25 mg PO BID #180 tab 03/23/20 Apixaban [Eliquis] 5 mg PO BID 05/14/20 Ascorbic Acid [Vitamin C] 1,000 mg PO DAILY 05/14/20 Clopidogrel Bisulfate [Plavix] 75 mg PO DAILY 05/14/20 Cyanocobalamin [Vitamin B12] 1,000 mcg PO DAILY@0800 05/14/20 Insulin Lispro [Humalog KwikPen] See Protocol SQ UD 05/14/20 Zinc 50 mg PO DAILY 05/14/20 Escitalopram Oxalate [Lexapro] 20 mg PO DAILY 08/05/20 Ferrous Sulfate 325 mg PO TIDCM 08/05/20 Fluconazole [Diflucan] 200 mg PO DAILY PRN 08/05/20 Gabapentin [Neurontin] 1,200 mg PO QHS 08/05/20 - Social History Tobacco Use: non-smoker Vital Signs Temp Pulse Resp BP Pulse Ox 98.9 F 78 12 155/71 H 97 01/04/21 12:00 01/04/21 13:00 01/04/21 13:00 01/04/21 13:00 01/04/21 13:00 Oxygen Flow Rate (L/min) 2 Oxygen Delivery Method Nasal Cannula Weight: 87.3 kg Body Mass Index (BMI) 35.2 Microbiology Past 72 Hours 01/03/21 09:44 Urine Culture - Preliminary Urine, Clean Catch GPC Poss Enterococcus sp 01/04/21 06:40 SARS-CoV-2 Antigen (Rapid) - Final Mucosa - Nose Laboratory Tests Past 24 Hrs 01/03/21 01/04/21 01/04/21 08:50 06:05 06:05 WBC 17.4 H RBC 3.37 L Hgb 10.0 L Hct 32.4 L MCV 96.1 MCH 29.7 MCHC 30.9 L RDW Std Deviation 52.8 H RDW Coeff of Petar 14.9 H Plt Count 253 MPV 10.2 Immature Gran % (Auto) 0.700 Neut % (Auto) 88.0 H Lymph % (Auto) 6.6 L [place] % (Auto) 4.4 Eos % (Auto) 0.1 Baso % (Auto) 0.2 Absolute Neuts (auto) 15.3 H Absolute Lymphs (auto) 1.15 Nucleated RBC % 0 Specimen Type Sample Site pH Bicarbonate Actual Total CO2 Base Excess O2 Saturation ABG pCO2 ABG pO2 Tim Test O2 Delivery Device Crit Call To/Read Back Blood Gas Notified Whom Blood Gas Notified Time Sodium 138 Potassium 5.2 H Chloride 113 H Carbon Dioxide 22.0 Anion Gap 3 L BUN 42 H Creatinine 2.14 H Estim Creat Clear Calc 21.28 Est GFR (MDRD) Af Amer 30 L Est GFR (MDRD) Non-Af 25 L BUN/Creatinine Ratio 19.6 Glucose 233 H Calcium 9.7 Magnesium 2.1 Triglycerides 147 Cholesterol 146 LDL Cholesterol 59 VLDL Cholesterol 29 HDL Cholesterol 58 01/04/21 08:55 WBC RBC Hgb Hct MCV MCH MCHC RDW Std Deviation RDW Coeff of Petar Plt Count MPV Immature Gran % (Auto) Neut % (Auto) Lymph % (Auto) [place] % (Auto) Eos % (Auto) Baso % (Auto) Absolute Neuts (auto) Absolute Lymphs (auto) Nucleated RBC % Specimen Type ART Sample Site L RADIAL pH 7.30 L Bicarbonate Actual 21.6 L Total CO2 23 Base Excess -5 L O2 Saturation 67 L ABG pCO2 44.0 ABG pO2 39 L* Tim Test POS O2 Delivery Device ROOM AIR Crit Call To/Read Back Yes Blood Gas Notified Whom DEHORTA Blood Gas Notified Time 0856 Sodium Potassium Chloride Carbon Dioxide Anion Gap BUN Creatinine Estim Creat Clear Calc Est GFR (MDRD) Af Amer Est GFR (MDRD) Non-Af BUN/Creatinine Ratio Glucose Calcium Magnesium Triglycerides Cholesterol LDL Cholesterol VLDL Cholesterol HDL Cholesterol - Other Studies Radiology: [] reviewed Other Studies: [] Route of nutrition/ use of supplements: [] Nutritional Intake: [] IV Site: [] Howard Catheter: [] - Physical Exam General: Alert, Oriented x3, Cooperative, No apparent distress HEENT: Atraumatic, PERRLA, EOMI Neck: Supple, No Nodes Lungs: Clear to auscultation, Normal air movement Cardiovascular: Regular rate, Regular Rhythm Abdomen: Soft, Non Tender, Non-Distended Extremities: No edema Skin: No rashes IV Site: Peripheral, without redness Musculoskeletal: No Tenderness to Palpation of Joints or Extremities Neurological: Cranial nerves II-XII grossly intact - Assessment/Plan Antibiotics: [] Assessment/Plan: [] Active and Suspected Problems (Last Reviewed 01/03/21 @ 18:[address] Yusra Carrillo MD) Calculus of proximal right ureter (Acute) Hydronephrosis, right (Acute) Pyelonephritis of right kidney (Acute) Complicated pyelonephritis R sided pyelo due to obstructing stone - small amount of enterococcus seen in urine cx. On 01/02, finished 2 weeks of augmentin and amoxicillin, so concern that any enterococcus would be resistant to PCNs. Taken to OR this AM 01/04/[address] Carrillo for R sided stent placement. Will check another urine cx to see if the yield is higher now that stent is in place. Cont unasyn, will add vanc. Has not gotten covid vaccine, test was neg here, no known recent exposures. Recommended she get vaccine. Will follow, thank you, d/w Dr. Hill.
--- NOTE | 2021-01-04 14:12 | CASEMGMT ---
CARMELO NUNEZ assessment: Face to Face with patient for initial transition planning/care coordination assessment. RN ENRIQUE introduced self and role at [facility], pt voices understanding and consents to assessment. Pt is sitting up in bed in no distress on 2L nc. Pt is A/Ox4 and answers all questions appropriately. Pt does fall back to sleep when not stimulated verbally. Care providers, pharmacy, and demographics verified. Presentation: Abd pain into right side, N/V that started yesterday after eating Admitting dx: Infected right ureteral stone, pyelo PCP: Zak Specialists: Lorena uro-will now f/u s/p surgery Preferred Pharmacy: [facility] Prescription Benefit: Anthem[facility] Living Will/HPOA: Pt states does not have LW/HPOA but states does have info at home and 'we just need to do it.' LNOK: Arvin Thomas, ; Wendie Castro, mother Living Arrangements: Pt states lives with in 1 story home and states no concerns at home. Pt states is independent with ADL's. Transportation: Pt states drives and states no transportation concerns. DME/HHC: Pt states has the following DME: cane, walker, w/c, grab bars, shower chair, and cpap but unsure what DME company it's set up through. Pt states no need for any further DME. Pt states has been to [facility], also states has had HHC in the past. Pt states no concerns with going home at time of discharge. Pt is disabled. Pt states does not smoke cigarettes or drink ETOH. Pt states no further concerns/needs. CM to follow for any further discharge planning/needs. Advised pt to ask for CM if any further questions/concerns/needs arise, voices understanding. Pt Goal: Home Plan[place] CARMELO NUNEZ
--- NOTE | 2021-01-04 14:33 | CASEMGMT ---
Palliative screening tool completed d/t pt being strata 3 and pt does not meet criteria for palliative c/s via [facility] palliative screening tool. Dario RHODES CM
--- NOTE | 2021-01-04 15:03 | PCM.RX.CS ---
Consult Pharmacy has been consulted to manage selected antiobiotic: Vancomycin Type of Consult: New start Suspected Infection: Other Labs: Sodium 138 mmol/L (136-145) 01/04/21 06:05 Potassium 5.2 mmol/L (3.5-5.1) H 01/04/21 06:05 Chloride 113 mmol/L (98-107) H 01/04/21 06:05 Carbon Dioxide 22.0 mmol/L (21.0-32.0) 01/04/21 06:05 Anion Gap 3 (5-15) L 01/04/21 06:05 BUN 42 mg/dL (7-18) H 01/04/21 06:05 Creatinine 2.14 mg/dL (0.55-1.02) H 01/04/21 06:05 Est GFR (MDRD) Af Amer 30 mL/min (>60) L 01/04/21 06:05 Est GFR (MDRD) Non-Af 25 mL/min (>60) L 01/04/21 06:05 BUN/Creatinine Ratio 19.6 RATIO (10-20) 01/04/21 06:05 Glucose 233 mg/dL (74-106) H 01/04/21 06:05 Microbiology: Microbiology 01/03/21 09:44 Urine, Clean Catch Urine Culture - Preliminary GPC Poss Enterococcus sp 01/04/21 06:40 Mucosa - Nose SARS-CoV-2 Antigen (Rapid) - Final Weight used for dosin.3 kg Estimated Creatinine Clearance: 27.6ML/MIN Goal Trough: 15-20 mcg/mL Pharmacy Plan for Drug Dosing: Give initial load dose (25mg/kg) of 2000mg IV x1, then continue with 1000mg IV q24h. Will check a trough level before the 3rd total dose. Pharmacy Service will continue to monitor and adjust dosing as required. Follow-Up Labs: Trough Vancomycin Labs to be done on [date and time ordered]: 01/06/21 14:30
[2021-01-04 16:51] LABS: Bedside Glucose 188 mg/dL (70-110)
[2021-01-04] MEDS: 0.9% Saline Lock 10 ML Syringe IV (16:56)
[2021-01-04] MEDS: Insulin Lispro 100 UNIT/ML INSULN.PEN SC (16:56)
[2021-01-04] MEDS: Atorvastatin Calcium 20 MG Tablet PO (22:11)
[2021-01-04] MEDS: hydrALAZINE 50 MG Tablet PO (22:11)
--- NOTE | 2021-01-04 22:13 | CPS ---
Patient's home PAP setup at bedside. Settings AutoPAP 5-15. Patient does not use oxygen with home setup, but with patient on oxygen currently OPERATIONS SYSTEMS SPECIALIST bled 2L O2 into her machine. Will monitor throughout night.
[2021-01-04 23:21] LABS: Bedside Glucose 120 mg/dL (70-110)
[2021-01-05] VITALS (13 sets, daily range): BP systolic 119–152; BP diastolic 51–67; PULSE 64–95; RESP 15–20; TEMP 36.8–37.6; O2SAT 85–95
[2021-01-05] MEDS: hydrALAZINE 50 MG Tablet PO ×2 (06:58→21:46)
[2021-01-05 07:10] LABS: Bedside Glucose 90 mg/dL (70-110)
[2021-01-05 08:58] LABS: Absolute Lymphocyte Count 2.09 X10^3/uL (0.83-4.51); Absolute Neutrophil Count 10.9 X10^3/uL (2.0-7.7); Basophil# 0.04 X10^3/uL; Basophil% 0.3 % (0-1); Eosinophil# 0.29 X10^3/uL; Hematocrit 27.8 % (37-47); Hemoglobin 8.7 g/dL (12.0-15.0); Lymphocyte # 2.09 X10^3/ul (4.0); Lymphocyte % 14.5 % (19-41); Mean Corp Hgb Conc 31.3 g/dL (32-36); Mean Corpuscular Hgb 29.9 pg (27.0-32.0); Mean Corpuscular Volume 95.5 fL (81-99); Mean Platelet Vol. 10.9 fl (6.2-12.0); Monocyte# 1.06 X10^3/uL; Monocyte% 7.3 % (0-10); NRBC Flagged by Analyzer 0 % (0-5); Neutrophil # 10.89 X10^3/uL (2.7-7.7); Neutrophil % 75.3 % (47-70); Platelet Count 145 K/mm3 (150-450); RBC Distribution Width SD 51.9 fl (35.1-43.9); Red Blood Count 2.91 M/mm3 (4.2-5.4); White Blood Count 14.5 K/mm3 (4.4-11.0)
[2021-01-05 09:14] LABS: Anion Gap 5 (5-15); BUN 44 mg/dL (7-18); BUN/Creat Ratio 21.9 RATIO (10-20); Calcium,Total 9.2 mg/dL (8.5-10.1); Chloride 112 mmol/L (98-107); Creatinine, Serum 2.01 mg/dL (0.55-1.02); EST Glomerular Filtration Rate 27 mL/min (>60); Est Glom Filt Rate - Afr Amer 32 mL/min (>60); Estimated Creatinine Clearance 22.66 ml/min; Glucose 94 mg/dL (74-106); Potassium 4.1 mmol/L (3.5-5.1); Sodium Level 139 mmol/L (136-145)
--- NOTE | 2021-01-05 09:43 | PN_ITS ---
Patient Problems: Active and Suspected Problems (Last Reviewed 01/03/21 @ 18:[address] Yusra Carrillo MD) Calculus of proximal right ureter (Acute) Hydronephrosis, right (Acute) Pyelonephritis of right kidney (Acute) Complicated pyelonephritis Reason for Visit: Follow-up for pyelonephritis. Hematuria and acute anemia due to blood loss. Objective: No fever or chills. T-max 99.6 Fahrenheit. On exam General: Alert, Oriented x3, Cooperative HEENT: Atraumatic, PERRLA, EOMI, Normocephalic Oral: No Gingival or Mucosal Lesions/ Ulcerations Neck: Supple, No JVD, Negative Carotid Bruits Lungs: Air entry diminished in bilateral lung bases. No crepitation/rhonchi Cardiovascular: Regular rate, Regular Rhythm, Normal S1, Normal S2, No murmurs Abdomen: Bowel Sounds Present, Soft, Non Tender, Non-Distended : Continuous bladder irrigation. Urine clear on Howard tube. No renal angle tenderness. Extremities: No edema, Capillary Refill Less than 3 Seconds Skin: No rashes, No breakdown Musculoskeletal: No Tenderness to Palpation of Joints or Extremities Neurological: Cranial nerves II-XII grossly intact, Deep Tendon Reflexes 2+/4 and Symmetrical, Neuro grossly intact Psych/Mental Status: Normal Affect, Appropriate. Vitals/I&O's: Vital Signs Temp Pulse Resp BP Pulse Ox 98.2 F 91 18 119/51 L 94 01/05/21 09:34 01/05/21 09:34 01/05/21 09:34 01/05/21 09:34 01/05/21 09:34 Oxygen Flow Rate (L/min) 4 Oxygen Delivery Method Nasal Cannula Weight: 197 lb 12.074 oz Body Mass Index (BMI) 35.2 Intake and Output for Last 24 Hours 01/03/21 01/04/21 01/05/21 23:59 23:59 23:59 Intake Total 1833.75 / 1833.75 3906.92 / 3906.92 240 / 240 Output Total 600 / 625 1205 / 1205 275 / 275 Balance 1233.75 / 1208.75 2701.92 / 2701.92 -35 / -35 Microbiology Past 72 Hours 01/03/21 09:44 Urine, Clean Catch Urine Culture - Preliminary GPC Poss Enterococcus sp 01/04/21 06:40 Mucosa - Nose SARS-CoV-2 Antigen (Rapid) - Final Laboratory Results 01/04/21 08:55: Specimen Type ART, Sample Site L RADIAL, pH 7.30 L, Bicarbonate Actual 21.6 L, Total CO2 23, Base Excess -5 L, O2 Saturation 67 L, ABG pCO2 44.0, ABG pO2 39 L*, Tim Test POS, O2 Delivery Device ROOM AIR, Crit Call To/Read Back Yes, Blood Gas Notified Whom MARTHA Blood Gas Notified Time 0856 01/04/21 12:18: POC Glucose 221 H 01/04/21 16:45: POC Glucose 188 H 01/04/21 22:09: POC Glucose 120 H 01/05/21 06:57: POC Glucose 90 01/05/21 08:32: WBC 14.5 H, RBC 2.91 L, Hgb 8.7 L, Hct 27.8 L, MCV 95.5, MCH 29.9, MCHC 31.3 L, RDW Std Deviation 51.9 H, RDW Coeff of Petar 15.0 H, Plt Count 145 L, MPV 10.9, Immature Gran % (Auto) 0.600, Neut % (Auto) 75.3 H, Lymph % (Auto) 14.5 L, [place] % (Auto) 7.3, Eos % (Auto) 2.0, Baso % (Auto) 0.3, Absolute Neuts (auto) 10.9 H, Absolute Lymphs (auto) 2.09, Nucleated RBC % 0 01/05/21 08:32: Sodium 139, Potassium 4.1, Chloride 112 H, Carbon Dioxide 22.0, Anion Gap 5, BUN 44 H, Creatinine 2.01 H, Estim Creat Clear Calc 22.66, Est GFR (MDRD) Af Amer 32 L, Est GFR (MDRD) Non-Af 27 L, BUN/Creatinine Ratio 21.9 H, Glucose 94, Calcium 9.2 Current Medications Acetaminophen (Acetaminophen 325 Mg Tablet) 650 mg PO Q6H PRN PRN PRN Reason: Pain Score 1-10/Temp > 100.7 F Last Admin: 01/03/21 16:34 Dose: 650 mg Documented by: Albuterol Sulfate (Albuterol 2.5 Mg/3 Ml Vial.Neb.) 2.5 mg INHALATION Q2H PRN PRN PRN Reason: SOB/Wheezing Ascorbic Acid (Ascorbic Acid 500 Mg Tablet) 1,000 mg PO DAILY [facility] Last Admin: 01/04/21 11:12 Dose: Not Given Documented by: Aspirin (Aspirin 81 Mg Tab.Chew) 81 mg PO DAILY [facility] Atorvastatin Calcium (Atorvastatin Calcium 20 Mg Tablet) 20 mg PO QHS [facility] Last Admin: 01/04/21 22:11 Dose: 20 mg Documented by: Carvedilol (Carvedilol 6.25 Mg Tablet) 6.25 mg PO BID [facility] Last Admin: 01/04/21 22:11 Dose: 6.25 mg Documented by: Cyanocobalamin (Cyanocobalamin 500 Mcg Tablet) 1,000 mcg PO DAILY@0800 [facility] Last Admin: 01/04/21 11:11 Dose: Not Given Documented by: Dextrose (Dextrose 50%-Water 25 Gm/50 Ml Disp.Syrin) 0 gm IV X1 PRN; Protocol PRN Reason: Hypoglycemia Escitalopram Oxalate (Escitalopram Oxalate 20 Mg Tablet) 20 mg PO DAILY [facility] Last Admin: 01/04/21 11:12 Dose: Not Given Documented by: Ferrous Sulfate (Ferrous Sulfate 325 Mg Tablet) 325 mg PO DAILY@1200 [facility] Last Admin: 01/04/21 11:12 Dose: 325 mg Documented by: Gabapentin (Gabapentin 400 Mg Capsule) 400 mg PO DAILY [facility] Last Admin: 01/04/21 11:12 Dose: 400 mg Documented by: Gabapentin (Gabapentin 400 Mg Capsule) 400 mg PO QHS [facility] Last Admin: 01/04/21 22:11 Dose: 400 mg Documented by: Glucagon (Glucagon 1 Mg/Ml Syringe) 1 mg IM .X1 PRN PRN Reason: Hypoglycemia Hydralazine HCl (Hydralazine 20 Mg/Ml Vial) 10 mg IV Q6H PRN PRN PRN Reason: sbp>180 or dbp>120 Hydralazine HCl (Hydralazine 50 Mg Tablet) 50 mg PO TID [facility] Last Admin: 01/05/21 06:58 Dose: 50 mg Documented by: Sodium Chloride () 500 mls @ 15 mls/hr IV PRN PRN PRN Reason: Blood Transfusion Sodium Chloride () 250 mls @ 15 mls/hr IV .[id number] PRN PRN Reason: Saline Flush Sodium Chloride () 250 mls @ 15 mls/hr IV .[id number] PRN PRN Reason: Additional IVPB Infusion Ampicillin Sodium/Sulbactam (Sodium 3 gm/ Sodium Chloride) 112 mls @ 150 mls/hr IV Q12 [facility] Last Infusion: 01/04/21 22:51 Dose: Infused Documented by: Vancomycin IV Pharmacy to Dose (1 each/ Sodium Chloride) 500 mls @ 250 mls/hr IV X1 PRN; Protocol PRN Reason: Rx to Dose Vancomycin HCl (Vancomycin) 1,000 mg in 200 mls @ 200 mls/hr IV Q24H [facility] Iron Sucrose 200 mg/ Sodium (Chloride) 110 mls @ 220 mls/hr IV X1 [facility] Stop: 01/05/21 10:11 Insulin Glargine (Insulin Glargine 100 Units/Ml Pen) 30 units SC DAILY [facility] Insulin Human Lispro (Insulin Lispro 100 Unit/Ml Insuln.Pen) 0 unit SC ACHS [facility]; Protocol Last Admin: 01/05/21 06:59 Dose: Not Given Documented by: Morphine Sulfate (Morphine 2 Mg/Ml Syringe) 2 mg IV Q4H PRN PRN PRN Reason: Pain Score 6-10 Last Admin: 01/03/21 14:34 Dose: 2 mg Documented by: Nitroglycerin (Nitroglycerin (Inpatient Use) 0.4 Mg Tab.Subl) 0.4 mg SL Q5M PRN PRN Reason: CARDIAC/CHEST PAIN Nystatin (Nystatin Powder 15gm Bottle) 1 applic TOPICAL BID [facility]; Protocol Last Admin: 01/04/21 22:11 Dose: 1 applic Documented by: Oxycodone HCl (Oxycodone 5 Mg Tablet) 5 mg PO Q4H PRN PRN PRN Reason: Pain Score 4-5 Last Admin: 01/04/21 01:38 Dose: 5 mg Documented by: Pantoprazole Sodium (Pantoprazole Sodium 40 Mg Tablet) 40 mg PO DAILY [facility] Prochlorperazine Edisylate (Prochlorperazine 10 Mg/2 Ml Vial) 5 mg IV Q4H PRN PRN PRN Reason: Breakthrough Nausea/Vomiting Last Admin: 01/04/21 05:44 Dose: 5 mg Documented by: Senna/Docusate Sodium (Senna/Docusate Sodium 1 Tablet) 2 tablet PO BID [facility] Stop: 01/07/21 10:01 Sodium Chloride (0.9% Saline Lock 10 Ml Syringe) 10 - 40 ml IV UD PRN PRN Reason: SALINE FLUSH Last Admin: 01/04/21 16:56 Dose: 10 ml Documented by: Tamsulosin HCl (Tamsulosin Hcl 0.4 Mg Capsule) 0.4 mg PO DAILY [facility] Last Admin: 01/04/21 11:11 Dose: 0.4 mg Documented by: STROKE Vital Signs/Narrative: Vital Signs Temp Pulse Resp BP Pulse Ox 01/05/21 09:34 98.2 F 91 18 119/51 L 94 01/05/21 07:51 64 01/05/21 07:01 95 01/05/21 06:58 88 Medical Necessity - Tobacco Use Smoking Status: Never smoker Tobacco Use: Non-smoker Assessment/Plan All Active Problems (Last Reviewed 01/03/21 @ 18:[address] Yusra Carrillo MD) Calculus of proximal right ureter (Acute) Hydronephrosis, right (Acute) Pyelonephritis of right kidney (Acute) The patient is a 65 year old F with multiple comorbidities as listed above came to ED with right lumbar region abdominal pain that started yesterday evening along with nausea and vomiting since last night. CT abdomen consistent with right sided complicated pyelonephritis and right hydroureteronephrosis 1. Sepsis due to right-sided complicated pyelonephritis/upper UTI and hydroureteronephrosis from acute obstructing 6 mm right proximal ureteric stone: Patient was initially admitted in PCU but transferred to ICU when she got hypoxic in PACU room.. Patient lactic acid normal. Dr. Carrillo was consulted. Initially started on IV ceftriaxone but changed to Unasyn today. On IV fluid for renal perfusion. 01/04: WBC count similar but urine culture shows GPC possible Enterococcus 1000- 10,000 colonies. Although count is not high but will treat with IV Unasyn to cover Enterococcus. Urine culture count may be low because of right ureteric obstruction and not proper drainage at time of urine collection. Blood cultures x2 are pending. Patient had cystoscopy with right ureteral stent insertion on 01/04. 01/05: ID note reviewed. Continue antibiotic. Repeat urine culture preliminary shows no growth. 2. Acute anemia due to blood loss, hematuria after stent placement: Hemoglobin dropped from 11.5-8.1. 200 mg IV iron sucrose given. Plavix discontinued. Eliquis already discontinued yesterday. Continue baby aspirin for now. Urine is almost clear. Hopefully, H&H is stabilized. Monitor H&H at night and then daily tomorrow a.m. Hypertensive urgency: Patient has history of peripheral arterial disease, history of stroke: Last blood pressure 122/75. Monitor blood pressure and titrate antihypertensive medications accordingly. 01/04: Blood pressure is controlled. 12 Lead EKG showed sinus rhythm at 85 bpm with first-degree AV block with old anterior infarct. QTC 464 ms. 3. Acute kidney injury probably from prerenal/sepsis/ATN on CKD stage IIIb : UA shows proteinuria. BUN/creatinine 39/1.58 elevated from the baseline 38/1.4. IV fluid for hydration. Monitor kidney function and electrolytes. Avoid nephrotoxic medications. 01/04: BUN/creatinine elevated. Continue IV fluid normal saline. K5.2. Mild hyperkalemia, Kayexalate 30 g 1 dose given. 01/05: Improvement in creatinine trend. 4. 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 Patient on aspirin 325 mg daily, Plavix, atorvastatin and carvedilol. Hold losartan as patient has CHAZ. Eliquis is temporarily held because patient had hematuria in Howard catheter. Resume Eliquis once hematuria is controlled. 5. Diabetes mellitus type 1 complicated with diabetic nephropathy, neuropathy and retinopathy: Patient also has history of obstructive sleep apnea, dyslipidemia. History of mild coronary artery disease but never had heart cath. Last echo in October 2019 shows EF 65% with stage I diastolic dysfunction. Dobutamine stress echo negative for ischemia by EKG and echo criteria. On Lantus and short-acting insulin at home. Dose decreased according to the serum glucose in BMP. On gabapentin dosage discharge as per kidney function. 01/04: Hyperglycemia: Lantus increased 01/05 glucose is controlled. 6. Multiple comorbidities include anemia of chronic disease. VTE prophylaxis: Patient on Eliquis 5 mg twice daily at home. Hold it for cystoscopy and imaging surgery but can resume after procedure. Bilateral SCDs. Living will/advanced directive/end of life care: Patient does not have living will or advanced directive. Her is power of erisa attorney for health. After discussion of benefits/risks procedures involved with full code, DNR CC arrest and DNR CC, the patient opted for full code but there is no improvement in 48 to 72 hours, did not wanted to be vegetable state and wanted withdrawal of life support measures. Initially, patient does want artificial life support including intubation, tube feed, ventilator and/chest compression, central venous catheter, vasopressor and DC shock if needed Inpatient E&M: 78618 Subs Hosp L2
[2021-01-05] MEDS: Cyanocobalamin 500 MCG Tablet 1000 MCG PO (09:55)
[2021-01-05] MEDS: Tamsulosin HCl 0.4 MG Capsule PO (09:58)
[2021-01-05] MEDS: Ascorbic Acid 500 MG Tablet 1000 MG PO (09:58)
[2021-01-05] MEDS: Aspirin 81 MG TAB.CHEW PO (09:58)
[2021-01-05] MEDS: Senna/Docusate Sodium 1 Tablet 2 TABLET PO ×2 (09:58→21:48)
[2021-01-05] MEDS: Carvedilol 6.25 MG Tablet PO ×2 (09:58→21:46)
[2021-01-05] MEDS: Pantoprazole Sodium 40 MG Tablet PO (09:58)
[2021-01-05] MEDS: Escitalopram Oxalate 20 MG Tablet PO (09:58)
[2021-01-05] MEDS: Gabapentin 400 MG Capsule PO ×2 (09:59→21:48)
--- NOTE | 2021-01-05 10:02 | PCM.PN.ID ---
Patient Problems: Active and Suspected Problems (Last Reviewed 01/03/21 @ 18:[address] Yusra Carrillo MD) Calculus of proximal right ureter (Acute) Hydronephrosis, right (Acute) Pyelonephritis of right kidney (Acute) Complicated pyelonephritis Subjective: Feeling better today, R flank pain improved, no fever, no n/v/d - Physical Exam Vitals/I&O's: Vital Signs Temp Pulse Resp BP Pulse Ox 98.2 F 91 18 119/51 L 94 01/05/21 09:34 01/05/21 09:34 01/05/21 09:34 01/05/21 09:34 01/05/21 09:34 Oxygen Flow Rate (L/min) 4 Oxygen Delivery Method Nasal Cannula Weight: 89.7 kg Body Mass Index (BMI) 35.2 Intake and Output for Last 24 Hours 01/03/21 01/04/21 01/05/21 23:59 23:59 23:59 Intake Total 1833.75 / 1833.75 3906.92 / 3906.92 240 / 240 Output Total 600 / 625 1205 / 1205 275 / 275 Balance 1233.75 / 1208.75 2701.92 / 2701.92 -35 / -35 General: Alert, Cooperative, No apparent distress Lungs: Clear to auscultation, Normal air movement Cardiovascular: Regular rate, Regular Rhythm Abdomen: Soft, Non Tender, Non-Distended Skin: No rashes Microbiology Past 72 Hours 01/03/21 09:44 Urine, Clean Catch Urine Culture - Preliminary GPC Poss Enterococcus sp 01/04/21 06:40 Mucosa - Nose SARS-CoV-2 Antigen (Rapid) - Final Laboratory Results 01/04/21 12:18: POC Glucose 221 H 01/04/21 16:45: POC Glucose 188 H 01/04/21 22:09: POC Glucose 120 H 01/05/21 06:57: POC Glucose 90 01/05/21 08:32: WBC 14.5 H, RBC 2.91 L, Hgb 8.7 L, Hct 27.8 L, MCV 95.5, MCH 29.9, MCHC 31.3 L, RDW Std Deviation 51.9 H, RDW Coeff of Petar 15.0 H, Plt Count 145 L, MPV 10.9, Immature Gran % (Auto) 0.600, Neut % (Auto) 75.3 H, Lymph % (Auto) 14.5 L, [place] % (Auto) 7.3, Eos % (Auto) 2.0, Baso % (Auto) 0.3, Absolute Neuts (auto) 10.9 H, Absolute Lymphs (auto) 2.09, Nucleated RBC % 0 01/05/21 08:32: Sodium 139, Potassium 4.1, Chloride 112 H, Carbon Dioxide 22.0, Anion Gap 5, BUN 44 H, Creatinine 2.01 H, Estim Creat Clear Calc 22.66, Est GFR (MDRD) Af Amer 32 L, Est GFR (MDRD) Non-Af 27 L, BUN/Creatinine Ratio 21.9 H, Glucose 94, Calcium 9.2 Current Medications Acetaminophen (Acetaminophen 325 Mg Tablet) 650 mg PO Q6H PRN PRN PRN Reason: Pain Score 1-10/Temp > 100.7 F Last Admin: 01/03/21 16:34 Dose: 650 mg Documented by: Albuterol Sulfate (Albuterol 2.5 Mg/3 Ml Vial.Neb.) 2.5 mg INHALATION Q2H PRN PRN PRN Reason: SOB/Wheezing Ascorbic Acid (Ascorbic Acid 500 Mg Tablet) 1,000 mg PO DAILY [facility] Last Admin: 01/05/21 09:58 Dose: 1,000 mg Documented by: Aspirin (Aspirin 81 Mg Tab.Chew) 81 mg PO DAILY [facility] Last Admin: 01/05/21 09:58 Dose: 81 mg Documented by: Atorvastatin Calcium (Atorvastatin Calcium 20 Mg Tablet) 20 mg PO QHS [facility] Last Admin: 01/04/21 22:11 Dose: 20 mg Documented by: Carvedilol (Carvedilol 6.25 Mg Tablet) 6.25 mg PO BID [facility] Last Admin: 01/05/21 09:58 Dose: 6.25 mg Documented by: Cyanocobalamin (Cyanocobalamin 500 Mcg Tablet) 1,000 mcg PO DAILY@0800 [facility] Last Admin: 01/05/21 09:55 Dose: 1,000 mcg Documented by: Dextrose (Dextrose 50%-Water 25 Gm/50 Ml Disp.Syrin) 0 gm IV X1 PRN; Protocol PRN Reason: Hypoglycemia Escitalopram Oxalate (Escitalopram Oxalate 20 Mg Tablet) 20 mg PO DAILY [facility] Last Admin: 01/05/21 09:58 Dose: 20 mg Documented by: Ferrous Sulfate (Ferrous Sulfate 325 Mg Tablet) 325 mg PO DAILY@1200 [facility] Last Admin: 01/04/21 11:12 Dose: 325 mg Documented by: Gabapentin (Gabapentin 400 Mg Capsule) 400 mg PO DAILY [facility] Last Admin: 01/05/21 09:59 Dose: 400 mg Documented by: Gabapentin (Gabapentin 400 Mg Capsule) 400 mg PO QHS [facility] Last Admin: 01/04/21 22:11 Dose: 400 mg Documented by: Glucagon (Glucagon 1 Mg/Ml Syringe) 1 mg IM .X1 PRN PRN Reason: Hypoglycemia Hydralazine HCl (Hydralazine 20 Mg/Ml Vial) 10 mg IV Q6H PRN PRN PRN Reason: sbp>180 or dbp>120 Hydralazine HCl (Hydralazine 50 Mg Tablet) 50 mg PO TID [facility] Last Admin: 01/05/21 06:58 Dose: 50 mg Documented by: Sodium Chloride () 500 mls @ 15 mls/hr IV PRN PRN PRN Reason: Blood Transfusion Sodium Chloride () 250 mls @ 15 mls/hr IV .[id number] PRN PRN Reason: Saline Flush Sodium Chloride () 250 mls @ 15 mls/hr IV .[id number] PRN PRN Reason: Additional IVPB Infusion Ampicillin Sodium/Sulbactam (Sodium 3 gm/ Sodium Chloride) 112 mls @ 150 mls/hr IV Q12 [facility] Last Admin: 01/05/21 10:01 Dose: 150 mls/hr Documented by: Vancomycin IV Pharmacy to Dose (1 each/ Sodium Chloride) 500 mls @ 250 mls/hr IV X1 PRN; Protocol PRN Reason: Rx to Dose Vancomycin HCl (Vancomycin) 1,000 mg in 200 mls @ 200 mls/hr IV Q24H [facility] Ferric Sodium Gluconate Complex 250 mg/ Sodium Chloride 270 mls @ 135 mls/hr IV X1 [facility] Stop: 01/05/21 12:59 Insulin Glargine (Insulin Glargine 100 Units/Ml Pen) 30 units SC DAILY [facility] Insulin Human Lispro (Insulin Lispro 100 Unit/Ml Insuln.Pen) 0 unit SC ACHS [facility]; Protocol Last Admin: 01/05/21 06:59 Dose: Not Given Documented by: Morphine Sulfate (Morphine 2 Mg/Ml Syringe) 2 mg IV Q4H PRN PRN PRN Reason: Pain Score 6-10 Last Admin: 01/03/21 14:34 Dose: 2 mg Documented by: Nitroglycerin (Nitroglycerin (Inpatient Use) 0.4 Mg Tab.Subl) 0.4 mg SL Q5M PRN PRN Reason: CARDIAC/CHEST PAIN Nystatin (Nystatin Powder 15gm Bottle) 1 applic TOPICAL BID [facility]; Protocol Last Admin: 01/04/21 22:11 Dose: 1 applic Documented by: Oxycodone HCl (Oxycodone 5 Mg Tablet) 5 mg PO Q4H PRN PRN PRN Reason: Pain Score 4-5 Last Admin: 01/04/21 01:38 Dose: 5 mg Documented by: Pantoprazole Sodium (Pantoprazole Sodium 40 Mg Tablet) 40 mg PO DAILY [facility] Last Admin: 01/05/21 09:58 Dose: 40 mg Documented by: Prochlorperazine Edisylate (Prochlorperazine 10 Mg/2 Ml Vial) 5 mg IV Q4H PRN PRN PRN Reason: Breakthrough Nausea/Vomiting Last Admin: 01/04/21 05:44 Dose: 5 mg Documented by: Senna/Docusate Sodium (Senna/Docusate Sodium 1 Tablet) 2 tablet PO BID [facility] Stop: 01/07/21 10:01 Last Admin: 01/05/21 09:58 Dose: 2 tablet Documented by: Sodium Chloride (0.9% Saline Lock 10 Ml Syringe) 10 - 40 ml IV UD PRN PRN Reason: SALINE FLUSH Last Admin: 01/04/21 16:56 Dose: 10 ml Documented by: Tamsulosin HCl (Tamsulosin Hcl 0.4 Mg Capsule) 0.4 mg PO DAILY [facility] Last Admin: 01/05/21 09:58 Dose: 0.4 mg Documented by: Medical Necessity - Tobacco Use Smoking Status: Never smoker Tobacco Use: Non-smoker Route of nutrition/ use of supplements: [] Nutritional Intake: [] IV Site: [] Howard Catheter: [] - Assessment/Plan Antibiotics: [] Assessment/Plan: [] Active and Suspected Problems (Last Reviewed 01/03/21 @ 18:[address] Yusra Carrillo MD) Calculus of proximal right ureter (Acute) Hydronephrosis, right (Acute) Pyelonephritis of right kidney (Acute) Complicated pyelonephritis R sided pyelo due to obstructing stone - small amount of enterococcus seen in urine cx. On 01/02, finished 2 weeks of augmentin and amoxicillin, so concern that any enterococcus would be resistant to PCNs. Taken to OR 01/04/[address] Carrillo for R sided stent placement. Ordered another urine cx to see if the yield is higher now that stent is in place. Cont unasyn, vanc. Plan on narrowing abx once susc are back and d/c home on po abx. Cr slightly improved this AM. Has not gotten covid vaccine, test was neg here, no known recent exposures. Recommended she get vaccine. Will follow
[2021-01-05] MEDS: Ferrous Sulfate 325 MG Tablet PO (10:05)
[2021-01-05] MEDS: Nystatin Powder 15gm Bottle 1 APPLIC TOPICAL ×2 (10:10→21:47)
[2021-01-05 11:36] LABS: Bedside Glucose 124 mg/dL (70-110)
[2021-01-05] MEDS: Sodium Ferric Gluconat 250 MG in 0.9% Normal Saline 250 ML 135 MG IV (11:41)
[2021-01-05 13:20] LABS: Hematocrit 26.3 % (37-47); Hemoglobin 8.1 g/dL (12.0-15.0)
[2021-01-05] MEDS: Vancomycin IV 1,000 MG/200 ML BAG 200 MG IV (14:59)
--- NOTE | 2021-01-05 15:39 | PCM.PN.GU ---
Physical Exam Subjective: Feeling much better today. Nausea resolved, flank pain decreased to dull pain. Eating now. Not short of breath. - Physical Exam Vital Signs Temp 99.6 F H 01/05/21 14:45 Pulse 87 01/05/21 15:00 Resp 15 01/05/21 14:45 BP 120/55 L 01/05/21 14:45 Pulse Ox 92 01/05/21 14:45 Intake & Output 01/03/21 01/04/21 01/05/21 23:59 23:59 23:59 Intake Total 1833.75 / 1833.75 3906.92 / 3906.92 862 / 862 Output Total 600 / 625 1205 / 1205 955 / 955 Balance 1233.75 / 1208.75 2701.92 / 2701.92 -93 / -93 Weight: 86.3 kg 87.3 kg 89.7 kg Intake: Oral 460 / 460 720 / 720 480 / 480 Intake, IV Amount 1373.75 / 1373.75 3186.92 / 3186.92 382 / 382 0.9% Normal Saline 1,000 ML @ 1000 / 1000 1000 mls/hr IV .Q1H [facility] Rx#: [id number] 0.9% Normal Saline 1,000 ML @ 2372.92 / 2372.92 125 mls/hr IV .Q8H [facility] Rx#: [id number] 0.9% Normal Saline 1,000 ML @ 323.75 / 323.75 75 mls/hr IV .[id number] [facility] Rx#: [id number] Ferrlecit (GEQ) 250 MG In 0.9% 270 / 270 Normal Saline 250 ML @ 135 mls/ hr IV X1 [facility] Rx#:[id number] Rocephin 1 gm In 50 ml @ 100 50 / 50 mls/hr IV Q24 [facility] Rx#:[id number] Rocephin 1 gm In 50 ml @ 100 50 / 50 mls/hr IV X1 [facility] Rx#:[id number] Unasyn 3 GM In 0.9% Normal 224 / 224 112 / 112 Saline 100 ML @ 150 mls/hr IV Q12 [facility] Rx#:[id number] Vancomycin IV 1,000 MG/20 ML In 540 / 540 0.9% Normal Saline 500 ML @ 250 mls/hr IV X1 [facility] Rx#: [id number] Output: Urine 600 / 625 1205 / 1205 955 / 955 Other: Intake, Continuous Bladder 2,700 Irrigation Output, Continuous Bladder 2,615 Irrigation General: Alert, Oriented x3, Cooperative, No apparent distress HEENT: Atraumatic, Normocephalic Oral: Moist Mucosa Neck: Supple, Trachea Midline Lungs: Normal air movement Cardiovascular: Regular rate Abdomen: Soft, Non Tender Rectal: Exam deferred Groin: - - reaves with pink tinged fluid, CBI at slow drip Extremities: - - left BKA. Skin: No rashes Neurological: Neuro grossly intact Psych/Mental Status: Normal Affect Microbiology Past 72 Hours 01/03/21 15:13 Blood Culture - Preliminary Blood Culture (Wb) - Anticubital Right No growth in 48 hours. 01/03/21 09:44 Urine Culture - Preliminary Urine, Clean Catch GPC Poss Enterococcus sp Yeast Like Organism 01/04/21 13:40 Urine Culture - Preliminary Urine Catheter - Reaves Culture exhibits no growth. 01/04/21 06:40 SARS-CoV-2 Antigen (Rapid) - Final Mucosa - Nose Laboratory Tests Past 24 Hrs 01/05/21 01/05/21 01/05/21 08:32 08:32 13:05 WBC 14.5 H RBC 2.91 L Hgb 8.7 L 8.1 L Hct 27.8 L 26.3 L MCV 95.5 MCH 29.9 MCHC 31.3 L RDW Std Deviation 51.9 H RDW Coeff of Petar 15.0 H Plt Count 145 L MPV 10.9 Immature Gran % (Auto) 0.600 Neut % (Auto) 75.3 H Lymph % (Auto) 14.5 L [place] % (Auto) 7.3 Eos % (Auto) 2.0 Baso % (Auto) 0.3 Absolute Neuts (auto) 10.9 H Absolute Lymphs (auto) 2.09 Nucleated RBC % 0 Sodium 139 Potassium 4.1 Chloride 112 H Carbon Dioxide 22.0 Anion Gap 5 BUN 44 H Creatinine 2.01 H Estim Creat Clear Calc 22.66 Est GFR (MDRD) Af Amer 32 L Est GFR (MDRD) Non-Af 27 L BUN/Creatinine Ratio 21.9 H Glucose 94 Calcium 9.2 Medical Necessity - Tobacco Use Smoking Status: Never smoker Tobacco Use: Non-smoker Assessment/Plan All Active Problems (Last Reviewed 01/03/21 @ 18:[address] Yusra Carrillo MD) Calculus of proximal right ureter (Acute) Hydronephrosis, right (Acute) Pyelonephritis of right kidney (Acute) CBI turned off, will plan to keep reaves catheter until tomorrow morning if urine remains clear continue antibiotics per ID continue supportive care, follow labs will need surgical intervention for stone in 2-3 weeks
[2021-01-05 16:35] LABS: Bedside Glucose 147 mg/dL (70-110)
[2021-01-05 20:45] LABS: Hematocrit 25.1 % (37-47); Hemoglobin 7.6 g/dL (12.0-15.0)
[2021-01-05] MEDS: Atorvastatin Calcium 20 MG Tablet PO (21:48)
[2021-01-05] MEDS: 0.9% Saline Lock 10 ML Syringe IV (21:51)
[2021-01-05 22:25] LABS: Bedside Glucose 123 mg/dL (70-110)
[2021-01-06] VITALS (12 sets, daily range): BP systolic 111–151; BP diastolic 55–72; PULSE 63–95; RESP 16–18; TEMP 36.7–37; O2SAT 92–98
[2021-01-06 00:02] LABS: Hemoglobin 7.4 g/dL (12.0-15.0)
--- NOTE | 2021-01-06 00:27 | NURSING ---
CBI restarted after discussion with charge nurse and reviewing Dr Carrillo's notes. Assessments on hematuria at time of ceasing CBI described as pink in both Dr's note and shift assessment, whereas this shift, hematuria has been dark red. Order to restart CBI if hematuria returns. CBI therefore restarted and running slow. Within 5 minutes pink in color.
[2021-01-06 05:34] LABS: Absolute Lymphocyte Count 2.04 X10^3/uL (0.83-4.51); Absolute Neutrophil Count 9.1 X10^3/uL (2.0-7.7); Basophil# 0.03 X10^3/uL; Basophil% 0.2 % (0-1); Eosinophil# 0.26 X10^3/uL; Eosinophils% 2.1 % (0-5); Hematocrit 25.9 % (37-47); Hemoglobin 7.7 g/dL (12.0-15.0); Lymphocyte # 2.04 X10^3/ul (4.0); Lymphocyte % 16.6 % (19-41); Mean Corp Hgb Conc 29.7 g/dL (32-36); Mean Corpuscular Hgb 29.2 pg (27.0-32.0); Mean Corpuscular Volume 98.1 fL (81-99); Mean Platelet Vol. 10.9 fl (6.2-12.0); Monocyte# 0.83 X10^3/uL; Monocyte% 6.7 % (0-10); NRBC Flagged by Analyzer 0 % (0-5); Neutrophil # 9.07 X10^3/uL (2.7-7.7); Neutrophil % 73.8 % (47-70); Platelet Count 176 K/mm3 (150-450); RBC Distribution Width CV 14.6 % (11.6-14.6); RBC Distribution Width SD 52.3 fl (35.1-43.9); Red Blood Count 2.64 M/mm3 (4.2-5.4); White Blood Count 12.3 K/mm3 (4.4-11.0)
[2021-01-06 05:52] LABS: Anion Gap 6 (5-15); BUN 51 mg/dL (7-18); BUN/Creat Ratio 23.4 RATIO (10-20); Chloride 112 mmol/L (98-107); Creatinine, Serum 2.18 mg/dL (0.55-1.02); EST Glomerular Filtration Rate 24 mL/min (>60); Est Glom Filt Rate - Afr Amer 29 mL/min (>60); Estimated Creatinine Clearance 20.89 ml/min; Glucose 99 mg/dL (74-106); Sodium Level 139 mmol/L (136-145)
[2021-01-06] MEDS: Morphine 2 MG/ML Syringe IV ×2 (06:31→15:33)
[2021-01-06] MEDS: 0.9% Saline Lock 10 ML Syringe IV ×2 (06:32→08:36)
[2021-01-06] MEDS: proCHLORPERazine 10 MG/2 ML Vial 5 MG IV ×2 (06:32→15:37)
[2021-01-06] MEDS: hydrALAZINE 50 MG Tablet PO ×3 (06:39→21:43)
[2021-01-06 07:00] LABS: Bedside Glucose 95 mg/dL (70-110)
--- NOTE | 2021-01-06 08:10 | PN_ITS ---
Physical Exam Subjective: Feeling ok this morning. Not drinking very much. Had a little more flank pain this morning, but it has subsided. We talked about stent pain and bladder spasms. - Physical Exam Vital Signs Temp 98.3 F 01/06/21 03:11 Pulse 88 01/06/21 06:39 Resp 18 01/06/21 03:11 BP 151/66 H 01/06/21 06:39 Pulse Ox 98 01/06/21 07:40 Intake & Output 01/04/21 01/05/21 01/06/21 23:59 23:59 23:59 Intake Total 3906.92 / 3906.92 1574 / 1874 300 / 300 Output Total 1205 / 1205 1080 / 1330 800 / 800 Balance 2701.92 / 2701.92 494 / 544 -500 / -500 Weight: 87.3 kg 89.7 kg 92.6 kg Intake: Oral 720 / 720 880 / 1180 300 / 300 Intake, IV Amount 3186.92 / 3186.92 694 / 694 0.9% Normal Saline 1,000 ML @ 2372.92 / 2372.92 125 mls/hr IV .Q8H [facility] Rx#: [id number] Ferrlecit (GEQ) 250 MG In 0.9% 270 / 270 Normal Saline 250 ML @ 135 mls/ hr IV X1 ONE Rx#:[id number] Rocephin 1 gm In 50 ml @ 100 50 / 50 mls/hr IV Q24 [facility] Rx#:[id number] Unasyn 3 GM In 0.9% Normal 224 / 224 224 / 224 Saline 100 ML @ 150 mls/hr IV Q12 [facility] Rx#:[id number] Vancomycin 1,000 mg In 200 ml @ 200 / 200 200 mls/hr IV Q24H [facility] Rx#: [id number] Vancomycin IV 1,000 MG/20 ML In 540 / 540 0.9% Normal Saline 500 ML @ 250 mls/hr IV X1 ONE Rx#: [id number] Output: Urine 1205 / 1205 1080 / 1330 800 / 800 Other: Intake, Continuous Bladder 2,700 3,000 Irrigation Output, Continuous Bladder 2,615 3,550 Irrigation General: Alert, Oriented x3, Cooperative, No apparent distress HEENT: Atraumatic, Normocephalic Oral: Dry Mucosa Neck: Supple, Trachea Midline Lungs: Normal air movement Cardiovascular: Regular rate Abdomen: Soft, Non Tender Rectal: Exam deferred Extremities: - - SCD on right lower extremity Skin: No rashes Musculoskeletal: No Muscle Wasting Neurological: Cranial nerves II-XII grossly intact, Neuro grossly intact Psych/Mental Status: Normal Affect Comment: urine clear CBI slow drip Microbiology Past 72 Hours 01/03/21 16:09 Blood Culture - Preliminary Blood Culture (Wb) - Anticubital Right No growth in 48 hours. 01/03/21 15:13 Blood Culture - Preliminary Blood Culture (Wb) - Anticubital Right No growth in 48 hours. 01/03/21 09:44 Urine Culture - Preliminary Urine, Clean Catch GPC Poss Enterococcus sp Yeast Like Organism 01/04/21 13:40 Urine Culture - Preliminary Urine Catheter - Reaves Culture exhibits no growth. 01/04/21 06:40 SARS-CoV-2 Antigen (Rapid) - Final Mucosa - Nose Laboratory Tests Past 24 Hrs 01/05/21 01/05/21 01/05/21 08:32 08:32 13:05 WBC 14.5 H RBC 2.91 L Hgb 8.7 L 8.1 L Hct 27.8 L 26.3 L MCV 95.5 MCH 29.9 MCHC 31.3 L RDW Std Deviation 51.9 H RDW Coeff of Petar 15.0 H Plt Count 145 L MPV 10.9 Immature Gran % (Auto) 0.600 Neut % (Auto) 75.3 H Lymph % (Auto) 14.5 L Wilson % (Auto) 7.3 Eos % (Auto) 2.0 Baso % (Auto) 0.3 Absolute Neuts (auto) 10.9 H Absolute Lymphs (auto) 2.09 Nucleated RBC % 0 Sodium 139 Potassium 4.1 Chloride 112 H Carbon Dioxide 22.0 Anion Gap 5 BUN 44 H Creatinine 2.01 H Estim Creat Clear Calc 22.66 Est GFR (MDRD) Af Amer 32 L Est GFR (MDRD) Non-Af 27 L BUN/Creatinine Ratio 21.9 H Glucose 94 Calcium 9.2 01/05/21 01/06/21 01/06/21 20:35 00:00 05:22 WBC 12.3 H RBC 2.64 L Hgb 7.6 L 7.4 L 7.7 L Hct 25.1 L 24.0 L 25.9 L MCV 98.1 MCH 29.2 MCHC 29.7 L D RDW Std Deviation 52.3 H RDW Coeff of Petar 14.6 Plt Count 176 MPV 10.9 Immature Gran % (Auto) 0.600 Neut % (Auto) 73.8 H Lymph % (Auto) 16.6 L Wilson % (Auto) 6.7 Eos % (Auto) 2.1 Baso % (Auto) 0.2 Absolute Neuts (auto) 9.1 H Absolute Lymphs (auto) 2.04 Nucleated RBC % 0 Sodium Potassium Chloride Carbon Dioxide Anion Gap BUN Creatinine Estim Creat Clear Calc Est GFR (MDRD) Af Amer Est GFR (MDRD) Non-Af BUN/Creatinine Ratio Glucose Calcium 01/06/21 05:22 WBC RBC Hgb Hct MCV MCH MCHC RDW Std Deviation RDW Coeff of Petar Plt Count MPV Immature Gran % (Auto) Neut % (Auto) Lymph % (Auto) Wilson % (Auto) Eos % (Auto) Baso % (Auto) Absolute Neuts (auto) Absolute Lymphs (auto) Nucleated RBC % Sodium 139 Potassium 4.0 Chloride 112 H Carbon Dioxide 21.0 Anion Gap 6 BUN 51 H Creatinine 2.18 H Estim Creat Clear Calc 20.89 Est GFR (MDRD) Af Amer 29 L Est GFR (MDRD) Non-Af 24 L BUN/Creatinine Ratio 23.4 H Glucose 99 Calcium 9.0 Medical Necessity - Tobacco Use Smoking Status: Never smoker Tobacco Use: Non-smoker Assessment/Plan All Active Problems (Last Reviewed 01/03/21 @ 18:[address] Yusra Carrillo MD) Calculus of proximal right ureter (Acute) Hydronephrosis, right (Acute) Pyelonephritis of right kidney (Acute) Increase hydration and follow hgb will order labs for this afternoon 500cc bolus now and await further recommendations per hospitalist CBI stopped again. Will recheck at noon and if still clear, will consider reaves removal with post-void residual
[2021-01-06] MEDS: Cyanocobalamin 500 MCG Tablet 1000 MCG PO (08:39)
[2021-01-06] MEDS: Carvedilol 6.25 MG Tablet PO ×2 (09:03→21:42)
[2021-01-06] MEDS: Senna/Docusate Sodium 1 Tablet 2 TABLET PO ×2 (09:03→21:42)
[2021-01-06] MEDS: Pantoprazole Sodium 40 MG Tablet PO (09:03)
[2021-01-06] MEDS: Ascorbic Acid 500 MG Tablet 1000 MG PO (09:03)
[2021-01-06] MEDS: Tamsulosin HCl 0.4 MG Capsule PO (09:03)
[2021-01-06] MEDS: Gabapentin 400 MG Capsule PO ×2 (09:03→21:42)
[2021-01-06] MEDS: Escitalopram Oxalate 20 MG Tablet PO (09:03)
[2021-01-06] MEDS: Aspirin 81 MG TAB.CHEW PO (09:04)
[2021-01-06] MEDS: Nystatin Powder 15gm Bottle 1 APPLIC TOPICAL ×2 (09:04→21:42)
[2021-01-06] MEDS: Sodium Ferric Gluconat 250 MG in 0.9% Normal Saline 250 ML 135 MG IV (10:50)
[2021-01-06] MEDS: Ferrous Sulfate 325 MG Tablet PO (11:12)
[2021-01-06] MEDS: Insulin Lispro 100 UNIT/ML INSULN.PEN SC ×3 (11:13→21:47)
[2021-01-06 11:21] LABS: Bedside Glucose 158 mg/dL (70-110)
[2021-01-06 14:23] LABS: Hematocrit 25.8 % (37-47)
[2021-01-06] MEDS: Vancomycin IV 1,000 MG/200 ML BAG 200 MG IV (14:46)
[2021-01-06 15:03] LABS: Anion Gap 6 (5-15); BUN 52 mg/dL (7-18); BUN/Creat Ratio 25.5 RATIO (10-20); Calcium,Total 9.1 mg/dL (8.5-10.1); Chloride 111 mmol/L (98-107); Creatinine, Serum 2.04 mg/dL (0.55-1.02); EST Glomerular Filtration Rate 26 mL/min (>60); Est Glom Filt Rate - Afr Amer 32 mL/min (>60); Estimated Creatinine Clearance 22.32 ml/min; Glucose 147 mg/dL (74-106); Potassium 3.9 mmol/L (3.5-5.1); Sodium Level 137 mmol/L (136-145)
--- NOTE | 2021-01-06 15:16 | PCM.PN.HOSP ---
Patient Problems: Active and Suspected Problems (Last Reviewed 01/03/21 @ 18:[address] Yusra Carrillo MD) Calculus of proximal right ureter (Acute) Hydronephrosis, right (Acute) Pyelonephritis of right kidney (Acute) Complicated pyelonephritis Objective: No fever or chills. No tachycardia. Urine is dark yellow/pinkish in color but no clot. CBI is discontinued by urologist. Complains of pain right lumbar area probably ureteric spasm. On exam General: Alert, Oriented x3, Cooperative HEENT: Atraumatic, PERRLA, EOMI, Normocephalic Oral: No Gingival or Mucosal Lesions/ Ulcerations Neck: Supple, No JVD, Negative Carotid Bruits Lungs: Air entry diminished in bilateral lung bases. No crepitation/rhonchi Cardiovascular: Regular rate, Regular Rhythm, Normal S1, Normal S2, No murmurs Abdomen: Bowel Sounds Present, Soft, Non Tender, Non-Distended : Dark-colored urine. No renal angle tenderness. Extremities: No edema, Capillary Refill Less than 3 Seconds Skin: No rashes, No breakdown Musculoskeletal: No Tenderness to Palpation of Joints or Extremities Neurological: Cranial nerves II-XII grossly intact, Deep Tendon Reflexes 2+/4 and Symmetrical, Neuro grossly intact Psych/Mental Status: Normal Affect, Appropriate. Vitals/I&O's: Vital Signs Temp Pulse Resp BP Pulse Ox 98.5 F 95 18 126/67 H 95 01/06/21 09:10 01/06/21 11:12 01/06/21 09:10 01/06/21 09:10 01/06/21 09:10 Oxygen Flow Rate (L/min) 3 Oxygen Delivery Method Room Air Weight: 204 lb 2.369 oz Body Mass Index (BMI) 35.2 Intake and Output for Last 24 Hours 01/04/21 01/05/21 01/06/21 23:59 23:59 23:59 Intake Total 3906.92 / 3906.92 1574 / 1874 1682 / 1682 Output Total 1205 / 1205 1080 / 1330 1000 / 1000 Balance 2701.92 / 2701.92 494 / 544 682 / 682 Microbiology Past 72 Hours 01/03/21 09:44 Urine, Clean Catch Urine Culture - Final GPC Poss Enterococcus sp Yeast, not Sury albicans 01/03/21 16:09 Blood Culture (Wb) - Anticubital Right Blood Culture - Preliminary No growth in 48 hours. 01/03/21 15:13 Blood Culture (Wb) - Anticubital Right Blood Culture - Preliminary No growth in 48 hours. 01/04/21 13:40 Urine Catheter - Howard Urine Culture - Preliminary Culture exhibits no growth. 01/04/21 06:40 Mucosa - Nose SARS-CoV-2 Antigen (Rapid) - Final Laboratory Results 01/05/21 16:14: POC Glucose 147 H 01/05/21 20:35: Hgb 7.6 L, Hct 25.1 L 01/05/21 21:45: POC Glucose 123 H 01/06/21 00:00: Hgb 7.4 L, Hct 24.0 L 01/06/21 05:22: WBC 12.3 H, RBC 2.64 L, Hgb 7.7 L, Hct 25.9 L, MCV 98.1, MCH 29.2, MCHC 29.7 L D, RDW Std Deviation 52.3 H, RDW Coeff of Petar 14.6, Plt Count 176, MPV 10.9, Immature Gran % (Auto) 0.600, Neut % (Auto) 73.8 H, Lymph % (Auto) 16.6 L, [place] % (Auto) 6.7, Eos % (Auto) 2.1, Baso % (Auto) 0.2, Absolute Neuts (auto) 9.1 H, Absolute Lymphs (auto) 2.04, Nucleated RBC % 0 01/06/21 05:22: Sodium 139, Potassium 4.0, Chloride 112 H, Carbon Dioxide 21.0, Anion Gap 6, BUN 51 H, Creatinine 2.18 H, Estim Creat Clear Calc 20.89, Est GFR (MDRD) Af Amer 29 L, Est GFR (MDRD) Non-Af 24 L, BUN/Creatinine Ratio 23.4 H, Glucose 99, Calcium 9.0 01/06/21 06:44: POC Glucose 95 01/06/21 11:07: POC Glucose 158 H 01/06/21 14:15: Vancomycin Trough 22.0 H 01/06/21 14:15: Hgb 8.0 L, Hct 25.8 L 01/06/21 14:15: Sodium 137, Potassium 3.9, Chloride 111 H, Carbon Dioxide 20.0 L, Anion Gap 6, BUN 52 H, Creatinine 2.04 H, Estim Creat Clear Calc 22.32, Est GFR (MDRD) Af Amer 32 L, Est GFR (MDRD) Non-Af 26 L, BUN/Creatinine Ratio 25.5 H, Glucose 147 H, Calcium 9.1 Current Medications Acetaminophen (Acetaminophen 325 Mg Tablet) 650 mg PO Q6H PRN PRN PRN Reason: Pain Score 1-10/Temp > 100.7 F Last Admin: 01/03/21 16:34 Dose: 650 mg Documented by: Albuterol Sulfate (Albuterol 2.5 Mg/3 Ml Vial.Neb.) 2.5 mg INHALATION Q2H PRN PRN PRN Reason: SOB/Wheezing Ascorbic Acid (Ascorbic Acid 500 Mg Tablet) 1,000 mg PO DAILY [facility] [place] Last Admin: 01/06/21 09:03 Dose: 1,000 mg Documented by: Aspirin (Aspirin 81 Mg Tab.Chew) 81 mg PO DAILY [facility] [place] Last Admin: 01/06/21 09:04 Dose: 81 mg Documented by: Atorvastatin Calcium (Atorvastatin Calcium 20 Mg Tablet) 20 mg PO QHS [facility] [place] Last Admin: 01/05/21 21:48 Dose: 20 mg Documented by: Carvedilol (Carvedilol 6.25 Mg Tablet) 6.25 mg PO BID [facility] [place] Last Admin: 01/06/21 09:03 Dose: 6.25 mg Documented by: Cyanocobalamin (Cyanocobalamin 500 Mcg Tablet) 1,000 mcg PO DAILY@0800 [facility] [place] Last Admin: 01/06/21 08:39 Dose: 1,000 mcg Documented by: Dextrose (Dextrose 50%-Water 25 Gm/50 Ml Disp.Syrin) 0 gm IV X1 PRN; Protocol PRN Reason: Hypoglycemia Escitalopram Oxalate (Escitalopram Oxalate 20 Mg Tablet) 20 mg PO DAILY [facility] [place] Last Admin: 01/06/21 09:03 Dose: 20 mg Documented by: Ferrous Sulfate (Ferrous Sulfate 325 Mg Tablet) 325 mg PO DAILY@1200 [facility] [place] Last Admin: 01/06/21 11:12 Dose: 325 mg Documented by: Gabapentin (Gabapentin 400 Mg Capsule) 400 mg PO DAILY [facility] [place] Last Admin: 01/06/21 09:03 Dose: 400 mg Documented by: Gabapentin (Gabapentin 400 Mg Capsule) 400 mg PO QHS [facility] [place] Last Admin: 01/05/21 21:48 Dose: 400 mg Documented by: Glucagon (Glucagon 1 Mg/Ml Syringe) 1 mg IM .X1 PRN PRN Reason: Hypoglycemia Hydralazine HCl (Hydralazine 20 Mg/Ml Vial) 10 mg IV Q6H PRN PRN PRN Reason: sbp>180 or dbp>120 Hydralazine HCl (Hydralazine 50 Mg Tablet) 50 mg PO TID [facility] [place] Last Admin: 01/06/21 11:12 Dose: 50 mg Documented by: Sodium Chloride () 250 mls @ 15 mls/hr IV .[id number] PRN PRN Reason: Saline Flush Sodium Chloride () 250 mls @ 15 mls/hr IV .[id number] PRN PRN Reason: Additional IVPB Infusion Ampicillin Sodium/Sulbactam (Sodium 3 gm/ Sodium Chloride) 112 mls @ 150 mls/hr IV Q12 [facility] [place] Last Infusion: 01/06/21 10:00 Dose: Infused Documented by: Vancomycin IV Pharmacy to Dose (1 each/ Sodium Chloride) 500 mls @ 250 mls/hr IV X1 PRN; Protocol PRN Reason: Rx to Dose Vancomycin HCl (Vancomycin) 1,000 mg in 200 mls @ 200 mls/hr IV Q24H [facility] [place] Last Admin: 01/06/21 14:46 Dose: 200 mls/hr Documented by: Insulin Glargine (Insulin Glargine 100 Units/Ml Pen) 30 units SC DAILY [facility] [place] Last Admin: 01/06/21 09:01 Dose: 30 u Documented by: Insulin Human Lispro (Insulin Lispro 100 Unit/Ml Insuln.Pen) 0 unit SC ACHS [facility] [place]; Protocol Last Admin: 01/06/21 11:13 Dose: 2 u Documented by: Morphine Sulfate (Morphine 2 Mg/Ml Syringe) 2 mg IV Q4H PRN PRN PRN Reason: Pain Score 6-10 Last Admin: 01/06/21 06:31 Dose: 2 mg Documented by: Nitroglycerin (Nitroglycerin (Inpatient Use) 0.4 Mg Tab.Subl) 0.4 mg SL Q5M PRN PRN Reason: CARDIAC/CHEST PAIN Nystatin (Nystatin Powder 15gm Bottle) 1 applic TOPICAL BID [facility] [place]; Protocol Last Admin: 01/06/21 09:04 Dose: 1 applic Documented by: Oxycodone HCl (Oxycodone 5 Mg Tablet) 5 mg PO Q4H PRN PRN PRN Reason: Pain Score 4-5 Last Admin: 01/04/21 01:38 Dose: 5 mg Documented by: Pantoprazole Sodium (Pantoprazole Sodium 40 Mg Tablet) 40 mg PO DAILY [facility] [place] Last Admin: 01/06/21 09:03 Dose: 40 mg Documented by: Prochlorperazine Edisylate (Prochlorperazine 10 Mg/2 Ml Vial) 5 mg IV Q4H PRN PRN PRN Reason: Breakthrough Nausea/Vomiting Last Admin: 01/06/21 06:32 Dose: 5 mg Documented by: Senna/Docusate Sodium (Senna/Docusate Sodium 1 Tablet) 2 tablet PO BID [facility] [place] Stop: 01/07/21 10:01 Last Admin: 01/06/21 09:03 Dose: 2 tablet Documented by: Sodium Chloride (0.9% Saline Lock 10 Ml Syringe) 10 - 40 ml IV UD PRN PRN Reason: SALINE FLUSH Last Admin: 01/06/21 08:36 Dose: 10 ml Documented by: Tamsulosin HCl (Tamsulosin Hcl 0.4 Mg Capsule) 0.4 mg PO DAILY [facility] [place] Last Admin: 01/06/21 09:03 Dose: 0.4 mg Documented by: Medical Necessity - Tobacco Use Smoking Status: Never smoker Tobacco Use: Non-smoker Assessment/Plan All Active Problems (Last Reviewed 01/03/21 @ 18:[address] Yusra Carrillo MD) Calculus of proximal right ureter (Acute) Hydronephrosis, right (Acute) Pyelonephritis of right kidney (Acute) The patient is a 65 year old F with multiple comorbidities as listed above came to ED with right lumbar region abdominal pain that started yesterday evening along with nausea and vomiting since last night. CT abdomen consistent with right sided complicated pyelonephritis and right hydroureteronephrosis 1. Sepsis due to right-sided complicated pyelonephritis/upper UTI and hydroureteronephrosis from acute obstructing 6 mm right proximal ureteric stone: Patient was initially admitted in PCU but transferred to ICU when she got hypoxic in PACU room.. Patient lactic acid normal. Dr. Carrillo was consulted. Initially started on IV ceftriaxone but changed to Unasyn today. On IV fluid for renal perfusion. 01/04: WBC count similar but urine culture shows GPC possible Enterococcus 1000-10,000 colonies. Although count is not high but will treat with IV Unasyn to cover Enterococcus. Urine culture count may be low because of right ureteric obstruction and not proper drainage at time of urine collection. Blood cultures x2 are pending. Patient had cystoscopy with right ureteral stent insertion on 01/04. 01/05: ID note reviewed. Continue antibiotic. Repeat urine culture preliminary shows no growth. 01/06: Urine culture shows GPC possible Enterococcus and yeast with repeat urine culture no growth. Antibiotic changed to Unasyn. Vancomycin discontinued as patient did not had fever chills, leukocytosis improving. 2. Acute anemia due to blood loss, hematuria after stent placement: Hemoglobin dropped from 11.5-8.1. 200 mg IV iron sucrose given. Plavix discontinued. Eliquis already discontinued yesterday. Continue baby aspirin for now. Urine is almost clear. Hopefully, H&H is stabilized. Monitor H&H at night and then daily tomorrow a.m. 01/06: H&H is stable at 8.0. Iron infusion given. Hypertensive urgency: Patient has history of peripheral arterial disease, history of stroke: Last blood pressure 122/75. Monitor blood pressure and titrate antihypertensive medications accordingly. 01/04: Blood pressure is controlled. 12 Lead EKG showed sinus rhythm at 85 bpm with first-degree AV block with old anterior infarct. QTC 464 ms. 3. Acute kidney injury probably from prerenal/sepsis/ATN on CKD stage IIIb : UA shows proteinuria. BUN/creatinine 39/1.58 elevated from the baseline 38/1.4. IV fluid for hydration. Monitor kidney function and electrolytes. Avoid nephrotoxic medications. 01/04: BUN/creatinine elevated. Continue IV fluid normal saline. K5.2. Mild hyperkalemia, Kayexalate 30 g 1 dose given. 01/05: Improvement in creatinine trend. 01/06: Improvement in creatinine. Continue IV fluid half-normal saline 4. 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 Patient on aspirin 325 mg daily, Plavix, atorvastatin and carvedilol. Hold losartan as patient has CHAZ. Eliquis is temporarily held because patient had hematuria in Howard catheter. Resume Eliquis once hematuria is controlled. 5. Diabetes mellitus type 1 complicated with diabetic nephropathy, neuropathy and retinopathy: Patient also has history of obstructive sleep apnea, dyslipidemia. History of mild coronary artery disease but never had heart cath. Last echo in October 2019 shows EF 65% with stage I diastolic dysfunction. Dobutamine stress echo negative for ischemia by EKG and echo criteria. On Lantus and short-acting insulin at home. Dose decreased according to the serum glucose in BMP. On gabapentin dosage discharge as per kidney function. 01/06: Glucose is controlled. 6. Multiple comorbidities include anemia of chronic disease. VTE prophylaxis: Patient on Eliquis 5 mg twice daily at home. Hold it for cystoscopy and imaging surgery but can resume after procedure. Bilateral SCDs. Living will/advanced directive/end of life care: Patient does not have living will or advanced directive. Her is power of geothermal field technician for health. After discussion of benefits/risks procedures involved with full code, DNR CC arrest and DNR CC, the patient opted for full code but there is no improvement in 48 to 72 hours, did not wanted to be vegetable state and wanted withdrawal of life support measures. Initially, patient does want artificial life support including intubation, tube feed, ventilator and/chest compression, central venous catheter, vasopressor and DC shock if needed Inpatient E&M: [id number] [facility] L2
[2021-01-06] MEDS: 0.45% Normal Saline 1,000 ML 75 ML IV (15:52)
[2021-01-06 17:20] LABS: Bedside Glucose 174 mg/dL (70-110)
[2021-01-06] MEDS: Acetaminophen 325 MG Tablet 650 MG PO (17:30)
[2021-01-06] MEDS: oxyCODONE 5 MG Tablet PO (17:30)
[2021-01-06] MEDS: Atorvastatin Calcium 20 MG Tablet PO (21:52)
[2021-01-06 22:10] LABS: Bedside Glucose 164 mg/dL (70-110)
[2021-01-07] VITALS (19 sets, daily range): BP systolic 106–162; BP diastolic 47–76; PULSE 64–88; RESP 15–18; TEMP 36.6–37.1; O2SAT 91–97
[2021-01-07] MEDS: hydrALAZINE 50 MG Tablet PO ×2 (05:50→21:29)
[2021-01-07 06:17] LABS: Absolute Lymphocyte Count 2.18 X10^3/uL (0.83-4.51); Absolute Neutrophil Count 7.7 X10^3/uL (2.0-7.7); Basophil# 0.03 X10^3/uL; Basophil% 0.3 % (0-1); Eosinophils% 5.2 % (0-5); Hemoglobin 7.1 g/dL (12.0-15.0); Lymphocyte # 2.18 X10^3/ul (4.0); Lymphocyte % 18.8 % (19-41); Mean Corp Hgb Conc 29.6 g/dL (32-36); Mean Corpuscular Hgb 29.3 pg (27.0-32.0); Mean Corpuscular Volume 99.2 fL (81-99); Mean Platelet Vol. 11.1 fl (6.2-12.0); Monocyte# 0.99 X10^3/uL; Monocyte% 8.5 % (0-10); NRBC Flagged by Analyzer 0 % (0-5); Neutrophil % 66.5 % (47-70); Platelet Count 191 K/mm3 (150-450); RBC Distribution Width CV 14.7 % (11.6-14.6); RBC Distribution Width SD 53.5 fl (35.1-43.9); Red Blood Count 2.42 M/mm3 (4.2-5.4); White Blood Count 11.6 K/mm3 (4.4-11.0)
[2021-01-07 06:46] LABS: Bedside Glucose 84 mg/dL (70-110)
[2021-01-07 06:59] LABS: Anion Gap 9 (5-15); BUN 51 mg/dL (7-18); BUN/Creat Ratio 24.8 RATIO (10-20); Calcium,Total 8.9 mg/dL (8.5-10.1); Chloride 109 mmol/L (98-107); Creatinine, Serum 2.06 mg/dL (0.55-1.02); EST Glomerular Filtration Rate 26 mL/min (>60); Est Glom Filt Rate - Afr Amer 31 mL/min (>60); Estimated Creatinine Clearance 22.11 ml/min; Glucose 74 mg/dL (74-106); Potassium 3.7 mmol/L (3.5-5.1); Sodium Level 137 mmol/L (136-145)
[2021-01-07] MEDS: Lactated Ringers 1,000 ML 999 ML IV (08:01)
[2021-01-07] MEDS: Nystatin Powder 15gm Bottle 1 APPLIC TOPICAL ×2 (08:04→21:31)
[2021-01-07] MEDS: Ascorbic Acid 500 MG Tablet 1000 MG PO (08:04)
[2021-01-07] MEDS: Pantoprazole Sodium 40 MG Tablet PO (08:04)
[2021-01-07] MEDS: Gabapentin 400 MG Capsule PO ×2 (08:04→21:29)
[2021-01-07] MEDS: Tamsulosin HCl 0.4 MG Capsule PO (08:04)
[2021-01-07] MEDS: Carvedilol 6.25 MG Tablet PO ×2 (08:05→21:28)
[2021-01-07] MEDS: Cyanocobalamin 500 MCG Tablet 1000 MCG PO (08:05)
[2021-01-07] MEDS: Escitalopram Oxalate 20 MG Tablet PO (08:06)
[2021-01-07] MEDS: Furosemide 100 MG/10 ML Vial 60 MG IV (08:21)
--- NOTE | 2021-01-07 08:56 | PCM.PN.HOSP ---
Patient Problems: Active and Suspected Problems (Last Reviewed 01/03/21 @ 18:[address] Yusra Carrillo MD) Calculus of proximal right ureter (Acute) Hydronephrosis, right (Acute) Pyelonephritis of right kidney (Acute) Complicated pyelonephritis CHAZ (acute kidney injury) (Acute) Reason for Visit: Follow-up for right pyelonephritis from infected stone, anemia and acute kidney injury on CKD Objective: No fever or chills. T-max 99.6 Fahrenheit on 01/05. No hypotension. No hypoxia or tachypnea. Patient is retaining fluid and is more puffy. Had 100 mL output in the last 12 hours. Discussed with the multimedia coordinator and urologist. Hemoglobin is low 7.1, dropped from 8 even the patient had 2 iron infusion. 1 L of Ringer lactate bolus, Lasix 60 mg IV 1 dose ordered. 1 unit of PRBC transfusion ordered. Baby aspirin on hold. Physical exam General: Alert, Oriented x3, Cooperative HEENT: Atraumatic, PERRLA, EOMI, Normocephalic Oral: No Gingival or Mucosal Lesions/ Ulcerations Neck: Supple, No JVD, Negative Carotid Bruits Lungs: Air entry diminished in bilateral lung bases. No crepitation/rhonchi Cardiovascular: Regular rate, Regular Rhythm, Normal S1, Normal S2, No murmurs Abdomen: Bowel Sounds Present, Soft, Non Tender, Non-Distended : Good urine output after irrigation, light yellow color. No renal angle tenderness. No suprapubic tenderness. Extremities: Edematous upper extremities and lower legs. Mild periorbital edema. Capillary Refill Less than 3 Seconds Skin: No rashes, No breakdown Musculoskeletal: No Tenderness to Palpation of Joints or Extremities Neurological: Cranial nerves II-XII grossly intact, Deep Tendon Reflexes 2+/4 and Symmetrical, Neuro grossly intact Psych/Mental Status: Normal Affect, Appropriate. Vitals/I&O's: Vital Signs Temp Pulse Resp BP Pulse Ox 98.1 F 78 18 106/47 L 92 01/07/21 07:59 01/07/21 07:59 01/07/21 07:59 01/07/21 07:59 01/07/21 07:59 Oxygen Flow Rate (L/min) 3 Oxygen Delivery Method Room Air Weight: 208 lb 15.971 oz Body Mass Index (BMI) 35.2 Intake and Output for Last 24 Hours 01/05/21 01/06/21 01/07/21 23:59 23:59 23:59 Intake Total 1574 / 1874 2451.5 / 2451.5 542.5 / 542.5 Output Total 1080 / 1330 1250 / 1250 400 / 400 Balance 494 / 544 1201.5 / 1201.5 142.5 / 142.5 Microbiology Past 72 Hours 01/03/21 09:44 Urine, Clean Catch Urine Culture - Final GPC Poss Enterococcus sp Yeast, not Sury albicans 01/04/21 13:40 Urine Catheter - Howard Urine Culture - Final Culture exhibits no growth. 01/03/21 16:09 Blood Culture (Wb) - Anticubital Right Blood Culture - Preliminary No growth in 48 hours. 01/03/21 15:13 Blood Culture (Wb) - Anticubital Right Blood Culture - Preliminary No growth in 48 hours. 01/04/21 06:40 Mucosa - Nose SARS-CoV-2 Antigen (Rapid) - Final Laboratory Results 01/06/21 11:07: POC Glucose 158 H 01/06/21 14:15: Vancomycin Trough 22.0 H 01/06/21 14:15: Hgb 8.0 L, Hct 25.8 L 01/06/21 14:15: Sodium 137, Potassium 3.9, Chloride 111 H, Carbon Dioxide 20.0 L, Anion Gap 6, BUN 52 H, Creatinine 2.04 H, Estim Creat Clear Calc 22.32, Est GFR (MDRD) Af Amer 32 L, Est GFR (MDRD) Non-Af 26 L, BUN/Creatinine Ratio 25.5 H, Glucose 147 H, Calcium 9.1 01/06/21 17:13: POC Glucose 174 H 01/06/21 21:41: POC Glucose 164 H 01/07/21 05:30: WBC 11.6 H, RBC 2.42 L, Hgb 7.1 L, Hct 24.0 L, MCV 99.2 H, MCH 29.3, MCHC 29.6 L, RDW Std Deviation 53.5 H, RDW Coeff of Petar 14.7 H, Plt Count 191, MPV 11.1, Immature Gran % (Auto) 0.700, Neut % (Auto) 66.5, Lymph % (Auto) 18.8 L, Jack % (Auto) 8.5, Eos % (Auto) 5.2 H, Baso % (Auto) 0.3, Absolute Neuts (auto) 7.7, Absolute Lymphs (auto) 2.18, Nucleated RBC % 0 01/07/21 05:30: Sodium 137, Potassium 3.7, Chloride 109 H, Carbon Dioxide 19.0 L, Anion Gap 9, BUN 51 H, Creatinine 2.06 H, Estim Creat Clear Calc 22.11, Est GFR (MDRD) Af Amer 31 L, Est GFR (MDRD) Non-Af 26 L, BUN/Creatinine Ratio 24.8 H, Glucose 74, Calcium 8.9 01/07/21 06:38: POC Glucose 84 Current Medications Acetaminophen (Acetaminophen 325 Mg Tablet) 650 mg PO Q6H PRN PRN PRN Reason: Pain Score 1-10/Temp > 100.7 F Last Admin: 01/06/21 17:30 Dose: 650 mg Documented by: Albuterol Sulfate (Albuterol 2.5 Mg/3 Ml Vial.Neb.) 2.5 mg INHALATION Q2H PRN PRN PRN Reason: SOB/Wheezing Ascorbic Acid (Ascorbic Acid 500 Mg Tablet) 1,000 mg PO DAILY [facility] Last Admin: 01/07/21 08:04 Dose: 1,000 mg Documented by: Atorvastatin Calcium (Atorvastatin Calcium 20 Mg Tablet) 20 mg PO QHS [facility] Last Admin: 01/06/21 21:52 Dose: 20 mg Documented by: Carvedilol (Carvedilol 6.25 Mg Tablet) 6.25 mg PO BID [facility] Last Admin: 01/07/21 08:05 Dose: 6.25 mg Documented by: Cyanocobalamin (Cyanocobalamin 500 Mcg Tablet) 1,000 mcg PO DAILY@0800 [facility] Last Admin: 01/07/21 08:05 Dose: 1,000 mcg Documented by: Dextrose (Dextrose 50%-Water 25 Gm/50 Ml Disp.Syrin) 0 gm IV X1 PRN; Protocol PRN Reason: Hypoglycemia Escitalopram Oxalate (Escitalopram Oxalate 20 Mg Tablet) 20 mg PO DAILY [facility] Last Admin: 01/07/21 08:06 Dose: 20 mg Documented by: Ferrous Sulfate (Ferrous Sulfate 325 Mg Tablet) 325 mg PO DAILY@1200 [facility] Last Admin: 01/06/21 11:12 Dose: 325 mg Documented by: Gabapentin (Gabapentin 400 Mg Capsule) 400 mg PO DAILY [facility] Last Admin: 01/07/21 08:04 Dose: 400 mg Documented by: Gabapentin (Gabapentin 400 Mg Capsule) 400 mg PO QHS [facility] Last Admin: 01/06/21 21:42 Dose: 400 mg Documented by: Glucagon (Glucagon 1 Mg/Ml Syringe) 1 mg IM .X1 PRN PRN Reason: Hypoglycemia Hydralazine HCl (Hydralazine 20 Mg/Ml Vial) 10 mg IV Q6H PRN PRN PRN Reason: sbp>180 or dbp>120 Hydralazine HCl (Hydralazine 50 Mg Tablet) 50 mg PO TID [facility] Last Admin: 01/07/21 05:50 Dose: 50 mg Documented by: Sodium Chloride () 250 mls @ 15 mls/hr IV .[id number] PRN PRN Reason: Saline Flush Sodium Chloride () 250 mls @ 15 mls/hr IV .[id number] PRN PRN Reason: Additional IVPB Infusion Ampicillin Sodium/Sulbactam (Sodium 3 gm/ Sodium Chloride) 112 mls @ 150 mls/hr IV Q12 [facility] Last Admin: 01/07/21 08:17 Dose: 150 mls/hr Documented by: Insulin Glargine (Insulin Glargine 100 Units/Ml Pen) 30 units SC DAILY [facility] Last Admin: 01/07/21 08:09 Dose: 30 u Documented by: Insulin Human Lispro (Insulin Lispro 100 Unit/Ml Insuln.Pen) 0 unit SC ACHS [facility]; Protocol Last Admin: 01/07/21 06:39 Dose: Not Given Documented by: Morphine Sulfate (Morphine 2 Mg/Ml Syringe) 2 mg IV Q4H PRN PRN PRN Reason: Pain Score 6-10 Last Admin: 01/06/21 15:33 Dose: 2 mg Documented by: Nitroglycerin (Nitroglycerin (Inpatient Use) 0.4 Mg Tab.Subl) 0.4 mg SL Q5M PRN PRN Reason: CARDIAC/CHEST PAIN Nystatin (Nystatin Powder 15gm Bottle) 1 applic TOPICAL BID [facility]; Protocol Last Admin: 01/07/21 08:04 Dose: 1 applic Documented by: Oxycodone HCl (Oxycodone 5 Mg Tablet) 5 mg PO Q4H PRN PRN PRN Reason: Pain Score 4-5 Last Admin: 01/06/21 17:30 Dose: 5 mg Documented by: Pantoprazole Sodium (Pantoprazole Sodium 40 Mg Tablet) 40 mg PO DAILY [facility] Last Admin: 01/07/21 08:04 Dose: 40 mg Documented by: Prochlorperazine Edisylate (Prochlorperazine 10 Mg/2 Ml Vial) 5 mg IV Q4H PRN PRN PRN Reason: Breakthrough Nausea/Vomiting Last Admin: 01/06/21 15:37 Dose: 5 mg Documented by: Senna/Docusate Sodium (Senna/Docusate Sodium 1 Tablet) 2 tablet PO BID [facility] Stop: 01/07/21 10:01 Last Admin: 01/07/21 08:01 Dose: Not Given Documented by: Sodium Chloride (0.9% Saline Lock 10 Ml Syringe) 10 - 40 ml IV UD PRN PRN Reason: SALINE FLUSH Last Admin: 01/06/21 08:36 Dose: 10 ml Documented by: Tamsulosin HCl (Tamsulosin Hcl 0.4 Mg Capsule) 0.4 mg PO DAILY [facility] Last Admin: 01/07/21 08:04 Dose: 0.4 mg Documented by: STROKE Vital Signs/Narrative: Vital Signs Temp Pulse Resp BP Pulse Ox 01/07/21 07:59 98.1 F 78 18 106/47 L 92 01/07/21 07:52 76 01/07/21 06:51 76 01/07/21 05:50 69 111/58 L Medical Necessity - Tobacco Use Smoking Status: Never smoker Tobacco Use: Non-smoker Assessment/Plan All Active Problems (Last Reviewed 01/03/21 @ 18:[address] Yusra Carrillo MD) Calculus of proximal right ureter (Acute) Hydronephrosis, right (Acute) Pyelonephritis of right kidney (Acute) CHAZ (acute kidney injury) (Acute) The patient is a 65 year old F with multiple comorbidities as listed above came to ED with right lumbar region abdominal pain that started yesterday evening along with nausea and vomiting since last night. CT abdomen consistent with right sided complicated pyelonephritis and right hydroureteronephrosis 1. Sepsis due to right-sided complicated pyelonephritis/upper UTI and hydroureteronephrosis from acute obstructing 6 mm right proximal ureteric stone: Patient was initially admitted in PCU but transferred to ICU when she got hypoxic in PACU room.. Patient lactic acid normal. Dr. Carrillo was consulted. Initially started on IV ceftriaxone but changed to Unasyn today. On IV fluid for renal perfusion. 01/04: WBC count similar but urine culture shows GPC possible Enterococcus 1000-10,000 colonies. Although count is not high but will treat with IV Unasyn to cover Enterococcus. Urine culture count may be low because of right ureteric obstruction and not proper drainage at time of urine collection. Blood cultures x2 are pending. Patient had cystoscopy with right ureteral stent insertion on 01/04. 01/05: ID note reviewed. Continue antibiotic. Repeat urine culture preliminary shows no growth. 01/06: Urine culture shows GPC possible Enterococcus and yeast with repeat urine culture no growth. Antibiotic changed to Unasyn. Vancomycin discontinued as patient did not had fever chills, leukocytosis improving. 01/07: Seen by ID, continue Unasyn. I called microbiology lab and it seems Enterococcus is vancomycin sensitive. 2. Acute anemia due to blood loss, hematuria after stent placement: Hemoglobin dropped from 11.5-8.1. 200 mg IV iron sucrose given. Plavix discontinued. Eliquis already discontinued yesterday. Continue baby aspirin for now. Urine is almost clear. Hopefully, H&H is stabilized. Monitor H&H at night and then daily tomorrow a.m. 01/06: H&H is stable at 8.0. Iron infusion given. 01/07: Severe anemia, hemoglobin 7.1. 1 unit of PRBC ordered and transfused. Monitor CBC. Aspirin discontinued for now . Hypertensive urgency: Patient has history of peripheral arterial disease, history of stroke: Last blood pressure 122/75. Monitor blood pressure and titrate antihypertensive medications accordingly. 01/04: Blood pressure is controlled. 12 Lead EKG showed sinus rhythm at 85 bpm with first-degree AV block with old anterior infarct. QTC 464 ms. 4. Acute kidney injury probably from prerenal/sepsis/ATN/CIARAN on CKD stage IIIb : UA shows proteinuria. BUN/creatinine 39/1.58 elevated from the baseline 38/1.4. IV fluid for hydration. Monitor kidney function and electrolytes. Avoid nephrotoxic medications. 01/04: BUN/creatinine elevated. Continue IV fluid normal saline. K5.2. Mild hyperkalemia, Kayexalate 30 g 1 dose given. 01/05: Improvement in creatinine trend. 01/06: Improvement in creatinine. Continue IV fluid half-normal saline 01/07: Creatinine remains same but patient oliguric 100 mL in last 24 hours. Superintendent Pier consulted. 1 L of LR bolus, Lasix 60 mg IV and Howard catheter was flushed/irrigated. 1200 mL urine output since morning. 5. 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 Patient on aspirin 325 mg daily, Plavix, atorvastatin and carvedilol. Hold losartan as patient has CHAZ. Eliquis is temporarily held because patient had hematuria in Howard catheter. Resume Eliquis once hematuria is controlled. 6. Diabetes mellitus type 1 complicated with diabetic nephropathy, neuropathy and retinopathy: Patient also has history of obstructive sleep apnea, dyslipidemia. History of mild coronary artery disease but never had heart cath. Last echo in October 2019 shows EF 65% with stage I diastolic dysfunction. Dobutamine stress echo negative for ischemia by EKG and echo criteria. On Lantus and short-acting insulin at home. Dose decreased according to the serum glucose in BMP. On gabapentin dosage discharge as per kidney function. 01/06: Glucose is controlled. 7. Multiple comorbidities include anemia of chronic disease. VTE prophylaxis: Patient on Eliquis 5 mg twice daily at home. Hold it for cystoscopy and imaging surgery but can resume after procedure. Bilateral SCDs. Total time of the visit including total time spent in counseling or coordination of care, (more than 50% of the total time, spent in obtaining medical information from nurses and other ancillary care providers,explaining to the patient about labs, imaging, diagnosis and management), discussion with multimedia coordinator, urologist and ID, review of labs and imaging is 30 minutes. Living will/advanced directive/end of life care: Patient does not have living will or advanced directive. Her is power of research attorney for health. After discussion of benefits/risks procedures involved with full code, DNR CC arrest and DNR CC, the patient opted for full code but there is no improvement in 48 to 72 hours, did not wanted to be vegetable state and wanted withdrawal of life support measures. Initially, patient does want artificial life support including intubation, tube feed, ventilator and/chest compression, central venous catheter, vasopressor and DC shock if needed Inpatient E&M: 42347 Subs Hosp L3
--- NOTE | 2021-01-07 09:10 | PCM.CONS.R ---
Problem List (1) CHAZ (acute kidney injury) Status: Acute Consultation - Renal 01/07/21 PCP/ Referring MD: Requesting physician: [] Primary care physician: Dr. Pili Crespo MD Reason for Consultation:: CHAZ - History of Present Illness History of Present Illness: The patient is a 65 year old F Who was admitted to the hospital few days ago with abdominal pain and flank pain. Nephrology consultation for acute renal failure. Ongoing diagnosis including right-sided pyelonephritis, obstructive nephropathy status post stenting, enterococcus UTI, acute renal failure. She was also in the ICU briefly due to lactic acidosis but now on the floor. Today she denies any complaints. Appears edematous - Allergies Allergies: Allergies meloxicam Adverse Reaction (Intermediate, Verified 01/03/21 08:37) GI upset Sulfa (Sulfonamide Antibiotics) Adverse Reaction (Intermediate, Verified 01/03/21 08:37) Swelling - Current Medications Current Medications: Current Medications Acetaminophen (Acetaminophen 325 Mg Tablet) 650 mg PO Q6H PRN PRN PRN Reason: Pain Score 1-10/Temp > 100.7 F Last Admin: 01/06/21 17:30 Dose: 650 mg Documented by: Albuterol Sulfate (Albuterol 2.5 Mg/3 Ml Vial.Neb.) 2.5 mg INHALATION Q2H PRN PRN PRN Reason: SOB/Wheezing Ascorbic Acid (Ascorbic Acid 500 Mg Tablet) 1,000 mg PO DAILY [facility] Last Admin: 01/07/21 08:04 Dose: 1,000 mg Documented by: Atorvastatin Calcium (Atorvastatin Calcium 20 Mg Tablet) 20 mg PO QHS [facility] Last Admin: 01/06/21 21:52 Dose: 20 mg Documented by: Carvedilol (Carvedilol 6.25 Mg Tablet) 6.25 mg PO BID [facility] Last Admin: 01/07/21 08:05 Dose: 6.25 mg Documented by: Cyanocobalamin (Cyanocobalamin 500 Mcg Tablet) 1,000 mcg PO DAILY@0800 [facility] Last Admin: 01/07/21 08:05 Dose: 1,000 mcg Documented by: Dextrose (Dextrose 50%-Water 25 Gm/50 Ml Disp.Syrin) 0 gm IV X1 PRN; Protocol PRN Reason: Hypoglycemia Escitalopram Oxalate (Escitalopram Oxalate 20 Mg Tablet) 20 mg PO DAILY [facility] Last Admin: 01/07/21 08:06 Dose: 20 mg Documented by: Ferrous Sulfate (Ferrous Sulfate 325 Mg Tablet) 325 mg PO DAILY@1200 [facility] Last Admin: 01/06/21 11:12 Dose: 325 mg Documented by: Gabapentin (Gabapentin 400 Mg Capsule) 400 mg PO DAILY [facility] Last Admin: 01/07/21 08:04 Dose: 400 mg Documented by: Gabapentin (Gabapentin 400 Mg Capsule) 400 mg PO QHS [facility] Last Admin: 01/06/21 21:42 Dose: 400 mg Documented by: Glucagon (Glucagon 1 Mg/Ml Syringe) 1 mg IM .X1 PRN PRN Reason: Hypoglycemia Hydralazine HCl (Hydralazine 20 Mg/Ml Vial) 10 mg IV Q6H PRN PRN PRN Reason: sbp>180 or dbp>120 Hydralazine HCl (Hydralazine 50 Mg Tablet) 50 mg PO TID [facility] Last Admin: 01/07/21 05:50 Dose: 50 mg Documented by: Sodium Chloride () 250 mls @ 15 mls/hr IV .[id number] PRN PRN Reason: Saline Flush Sodium Chloride () 250 mls @ 15 mls/hr IV .[id number] PRN PRN Reason: Additional IVPB Infusion Ampicillin Sodium/Sulbactam (Sodium 3 gm/ Sodium Chloride) 112 mls @ 150 mls/hr IV Q12 [facility] Last Admin: 01/07/21 08:17 Dose: 150 mls/hr Documented by: Insulin Glargine (Insulin Glargine 100 Units/Ml Pen) 30 units SC DAILY [facility] Last Admin: 01/07/21 08:09 Dose: 30 u Documented by: Insulin Human Lispro (Insulin Lispro 100 Unit/Ml Insuln.Pen) 0 unit SC ACHS [facility]; Protocol Last Admin: 01/07/21 06:39 Dose: Not Given Documented by: Morphine Sulfate (Morphine 2 Mg/Ml Syringe) 2 mg IV Q4H PRN PRN PRN Reason: Pain Score 6-10 Last Admin: 01/06/21 15:33 Dose: 2 mg Documented by: Nitroglycerin (Nitroglycerin (Inpatient Use) 0.4 Mg Tab.Subl) 0.4 mg SL Q5M PRN PRN Reason: CARDIAC/CHEST PAIN Nystatin (Nystatin Powder 15gm Bottle) 1 applic TOPICAL BID [facility]; Protocol Last Admin: 01/07/21 08:04 Dose: 1 applic Documented by: Oxycodone HCl (Oxycodone 5 Mg Tablet) 5 mg PO Q4H PRN PRN PRN Reason: Pain Score 4-5 Last Admin: 01/06/21 17:30 Dose: 5 mg Documented by: Pantoprazole Sodium (Pantoprazole Sodium 40 Mg Tablet) 40 mg PO DAILY [facility] Last Admin: 01/07/21 08:04 Dose: 40 mg Documented by: Prochlorperazine Edisylate (Prochlorperazine 10 Mg/2 Ml Vial) 5 mg IV Q4H PRN PRN PRN Reason: Breakthrough Nausea/Vomiting Last Admin: 01/06/21 15:37 Dose: 5 mg Documented by: Senna/Docusate Sodium (Senna/Docusate Sodium 1 Tablet) 2 tablet PO BID [facility] Stop: 01/07/21 10:01 Last Admin: 01/07/21 08:01 Dose: Not Given Documented by: Sodium Chloride (0.9% Saline Lock 10 Ml Syringe) 10 - 40 ml IV UD PRN PRN Reason: SALINE FLUSH Last Admin: 01/06/21 08:36 Dose: 10 ml Documented by: Tamsulosin HCl (Tamsulosin Hcl 0.4 Mg Capsule) 0.4 mg PO DAILY [facility] Last Admin: 01/07/21 08:04 Dose: 0.4 mg Documented by: - Past Medical History Past Medical History (Chronic Problems): Chronic Problems (Last Reviewed 01/03/21 @ 18:[address] 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) JOSE on CPAP (Chronic) Diabetic neuropathy (Chronic) Nonhealing surgical wound (Chronic) Diabetic foot ulcer (Chronic) Diabetic ulcer of foot with fat layer exposed (Chronic) PAD (peripheral artery disease) (Chronic) S/P bypass graft of extremity (Chronic) Obstructive sleep apnea (Chronic) Uses CPAP Constitutional obesity (Chronic) History of stroke (Chronic 2004) Left hemispheric 2004 Abnormal EKG (Chronic) Proliferative diabetic retinopathy associated with type 2 diabetes mellitus (Chronic) Gastroparesis (Chronic) GERD (gastroesophageal reflux disease) (Chronic) Peripheral vascular disease (Chronic) Hyperlipidemia (Chronic) Essential hypertension (Chronic) 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) Balance problem (Chronic) Hemiparesis affecting dominant side as late effect of stroke (Chronic) - Past Surgical History Surgical History: - - Recent placement of stent and graft left lower extremity secondary to peripheral arterial disease - Social History Smoking Status: Never smoker Alcohol: None Drugs: None Review of Systems Constitutional: Denies: Chills, Fever, Weight Change HEENT: Denies: Head Aches, Sinus Congestion, Sinus Drainage Cardiovascular: Denies: Chest Pain, Palpitations Respiratory: Denies: Cough, Shortness of breath at rest, Sputum production Gastrointestinal: Denies: Abdominal Pain, Nausea, Vomiting Genitourinary: Denies: Dysuria Musculoskeletal: Denies: Joint Pain, Joint Tenderness Skin: Denies: Rash, Wounds Neurological: Denies: Numbness, Tingling, Focal weakness Psychiatric: Denies: Anxiety, Depression, Homicidal Ideations, Suicidal Ideations Hematologic/ Lymphatic: Denies: Easy Bruising, Easy Bleeding Patient Problems: Active and Suspected Problems (Last Reviewed 01/03/21 @ 18:[address] Yusra Carrillo MD) Calculus of proximal right ureter (Acute) Hydronephrosis, right (Acute) Pyelonephritis of right kidney (Acute) Complicated pyelonephritis - Physical Exam Vitals/I&O's: Vital Signs Temp Pulse Resp BP Pulse Ox 98.1 F 78 18 106/47 L 92 01/07/21 07:59 01/07/21 07:59 01/07/21 07:59 01/07/21 07:59 01/07/21 07:59 Oxygen Flow Rate (L/min) 3 Oxygen Delivery Method Room Air Weight: 94.8 kg Body Mass Index (BMI) 35.2 Intake and Output for Last 24 Hours 01/05/21 01/06/21 01/07/21 23:59 23:59 23:59 Intake Total 1574 / 1874 2451.5 / 2451.5 542.5 / 542.5 Output Total 1080 / 1330 1250 / 1250 400 / 400 Balance 494 / 544 1201.5 / 1201.5 142.5 / 142.5 General: Alert, Oriented x3, Cooperative HEENT: Atraumatic, PERRLA, EOMI, Normocephalic Neck: Supple, No JVD, Negative Carotid Bruits Lungs: Clear to auscultation, Normal air movement Cardiovascular: Regular rate, No murmurs Abdomen: Bowel Sounds Present, Soft, Non Tender Extremities: Capillary Refill Less than 3 Seconds, Edema Skin: No rashes, No breakdown Musculoskeletal: No Tenderness to Palpation of Joints or Extremities Neurological: Cranial nerves II-XII grossly intact Psych/Mental Status: Normal Affect, Appropriate Microbiology Past 72 Hours 01/03/21 09:44 Urine, Clean Catch Urine Culture - Final GPC Poss Enterococcus sp Yeast, not Sury albicans 01/04/21 13:40 Urine Catheter - Howard Urine Culture - Final Culture exhibits no growth. 01/03/21 16:09 Blood Culture (Wb) - Anticubital Right Blood Culture - Preliminary No growth in 48 hours. 01/03/21 15:13 Blood Culture (Wb) - Anticubital Right Blood Culture - Preliminary No growth in 48 hours. 01/04/21 06:40 Mucosa - Nose SARS-CoV-2 Antigen (Rapid) - Final Laboratory Results 01/06/21 11:07: POC Glucose 158 H 01/06/21 14:15: Vancomycin Trough 22.0 H 01/06/21 14:15: Hgb 8.0 L, Hct 25.8 L 01/06/21 14:15: Sodium 137, Potassium 3.9, Chloride 111 H, Carbon Dioxide 20.0 L, Anion Gap 6, BUN 52 H, Creatinine 2.04 H, Estim Creat Clear Calc 22.32, Est GFR (MDRD) Af Amer 32 L, Est GFR (MDRD) Non-Af 26 L, BUN/Creatinine Ratio 25.5 H, Glucose 147 H, Calcium 9.1 01/06/21 17:13: POC Glucose 174 H 01/06/21 21:41: POC Glucose 164 H 01/07/21 05:30: WBC 11.6 H, RBC 2.42 L, Hgb 7.1 L, Hct 24.0 L, MCV 99.2 H, MCH 29.3, MCHC 29.6 L, RDW Std Deviation 53.5 H, RDW Coeff of Petar 14.7 H, Plt Count 191, MPV 11.1, Immature Gran % (Auto) 0.700, Neut % (Auto) 66.5, Lymph % (Auto) 18.8 L, [place] % (Auto) 8.5, Eos % (Auto) 5.2 H, Baso % (Auto) 0.3, Absolute Neuts (auto) 7.7, Absolute Lymphs (auto) 2.18, Nucleated RBC % 0 01/07/21 05:30: Sodium 137, Potassium 3.7, Chloride 109 H, Carbon Dioxide 19.0 L, Anion Gap 9, BUN 51 H, Creatinine 2.06 H, Estim Creat Clear Calc 22.11, Est GFR (MDRD) Af Amer 31 L, Est GFR (MDRD) Non-Af 26 L, BUN/Creatinine Ratio 24.8 H, Glucose 74, Calcium 8.9 01/07/21 06:38: POC Glucose 84 Current Medications Acetaminophen (Acetaminophen 325 Mg Tablet) 650 mg PO Q6H PRN PRN PRN Reason: Pain Score 1-10/Temp > 100.7 F Last Admin: 01/06/21 17:30 Dose: 650 mg Documented by: Albuterol Sulfate (Albuterol 2.5 Mg/3 Ml Vial.Neb.) 2.5 mg INHALATION Q2H PRN PRN PRN Reason: SOB/Wheezing Ascorbic Acid (Ascorbic Acid 500 Mg Tablet) 1,000 mg PO DAILY [facility] Last Admin: 01/07/21 08:04 Dose: 1,000 mg Documented by: Atorvastatin Calcium (Atorvastatin Calcium 20 Mg Tablet) 20 mg PO QHS [facility] Last Admin: 01/06/21 21:52 Dose: 20 mg Documented by: Carvedilol (Carvedilol 6.25 Mg Tablet) 6.25 mg PO BID [facility] Last Admin: 01/07/21 08:05 Dose: 6.25 mg Documented by: Cyanocobalamin (Cyanocobalamin 500 Mcg Tablet) 1,000 mcg PO DAILY@0800 [facility] Last Admin: 01/07/21 08:05 Dose: 1,000 mcg Documented by: Dextrose (Dextrose 50%-Water 25 Gm/50 Ml Disp.Syrin) 0 gm IV X1 PRN; Protocol PRN Reason: Hypoglycemia Escitalopram Oxalate (Escitalopram Oxalate 20 Mg Tablet) 20 mg PO DAILY [facility] Last Admin: 01/07/21 08:06 Dose: 20 mg Documented by: Ferrous Sulfate (Ferrous Sulfate 325 Mg Tablet) 325 mg PO DAILY@1200 [facility] Last Admin: 01/06/21 11:12 Dose: 325 mg Documented by: Gabapentin (Gabapentin 400 Mg Capsule) 400 mg PO DAILY [facility] Last Admin: 01/07/21 08:04 Dose: 400 mg Documented by: Gabapentin (Gabapentin 400 Mg Capsule) 400 mg PO QHS [facility] Last Admin: 01/06/21 21:42 Dose: 400 mg Documented by: Glucagon (Glucagon 1 Mg/Ml Syringe) 1 mg IM .X1 PRN PRN Reason: Hypoglycemia Hydralazine HCl (Hydralazine 20 Mg/Ml Vial) 10 mg IV Q6H PRN PRN PRN Reason: sbp>180 or dbp>120 Hydralazine HCl (Hydralazine 50 Mg Tablet) 50 mg PO TID [facility] Last Admin: 01/07/21 05:50 Dose: 50 mg Documented by: Sodium Chloride () 250 mls @ 15 mls/hr IV .[id number] PRN PRN Reason: Saline Flush Sodium Chloride () 250 mls @ 15 mls/hr IV .[id number] PRN PRN Reason: Additional IVPB Infusion Ampicillin Sodium/Sulbactam (Sodium 3 gm/ Sodium Chloride) 112 mls @ 150 mls/hr IV Q12 [facility] Last Admin: 01/07/21 08:17 Dose: 150 mls/hr Documented by: Insulin Glargine (Insulin Glargine 100 Units/Ml Pen) 30 units SC DAILY [facility] Last Admin: 01/07/21 08:09 Dose: 30 u Documented by: Insulin Human Lispro (Insulin Lispro 100 Unit/Ml Insuln.Pen) 0 unit SC ACHS [facility]; Protocol Last Admin: 01/07/21 06:39 Dose: Not Given Documented by: Morphine Sulfate (Morphine 2 Mg/Ml Syringe) 2 mg IV Q4H PRN PRN PRN Reason: Pain Score 6-10 Last Admin: 01/06/21 15:33 Dose: 2 mg Documented by: Nitroglycerin (Nitroglycerin (Inpatient Use) 0.4 Mg Tab.Subl) 0.4 mg SL Q5M PRN PRN Reason: CARDIAC/CHEST PAIN Nystatin (Nystatin Powder 15gm Bottle) 1 applic TOPICAL BID [facility]; Protocol Last Admin: 01/07/21 08:04 Dose: 1 applic Documented by: Oxycodone HCl (Oxycodone 5 Mg Tablet) 5 mg PO Q4H PRN PRN PRN Reason: Pain Score 4-5 Last Admin: 01/06/21 17:30 Dose: 5 mg Documented by: Pantoprazole Sodium (Pantoprazole Sodium 40 Mg Tablet) 40 mg PO DAILY [facility] Last Admin: 01/07/21 08:04 Dose: 40 mg Documented by: Prochlorperazine Edisylate (Prochlorperazine 10 Mg/2 Ml Vial) 5 mg IV Q4H PRN PRN PRN Reason: Breakthrough Nausea/Vomiting Last Admin: 01/06/21 15:37 Dose: 5 mg Documented by: Senna/Docusate Sodium (Senna/Docusate Sodium 1 Tablet) 2 tablet PO BID [facility] Stop: 01/07/21 10:01 Last Admin: 01/07/21 08:01 Dose: Not Given Documented by: Sodium Chloride (0.9% Saline Lock 10 Ml Syringe) 10 - 40 ml IV UD PRN PRN Reason: SALINE FLUSH Last Admin: 01/06/21 08:36 Dose: 10 ml Documented by: Tamsulosin HCl (Tamsulosin Hcl 0.4 Mg Capsule) 0.4 mg PO DAILY [facility] Last Admin: 01/07/21 08:04 Dose: 0.4 mg Documented by: Assessment/Plan All Active Problems (Last Reviewed 01/03/21 @ 18:[address] Yusra Carrillo MD) Calculus of proximal right ureter (Acute) Hydronephrosis, right (Acute) Pyelonephritis of right kidney (Acute) CHAZ (acute kidney injury) (Acute) Acute renal failure. CKD stage IIIa. Baseline creatinine seems to be around 1.4 as of August 2020. Admitted with a creatinine of 2.0 and has stayed on the same. She was on bladder irrigation until yesterday, stopped today. Since yesterday there is not much urine output. A bladder scan was done and as per staff there was only about 1 50 cc of urine Urine analysis shows leukocytes consistent with urinary tract infection She did get a contrast study on admission which was a CT study She is also on vancomycin with levels at 22 Possible ATN. We'll try Lasix challenge. Flush Howard catheter.
[2021-01-07 11:26] LABS: Bedside Glucose 124 mg/dL (70-110)
--- NOTE | 2021-01-07 11:28 | NURSING ---
this rn into pts room to get consent for blood. pt states she does not want blood unless we can verify that the donated blood is free of the covid 19 vaccine. informed pt that this rn will call blood bank to see what can be found out. blood bank states they will call the [facility] and get back to me with what they find out.
--- NOTE | 2021-01-07 12:00 | NURSING ---
pt has talked with and agrees to receive blood
--- NOTE | 2021-01-07 12:45 | PN_ITS ---
Physical Exam Subjective: Feeling much better today. No nausea. Minimal irritation from reaves catheter. Lots of urine out after reaves was irrigated. - Physical Exam Vital Signs Temp 98.1 F 01/07/21 07:59 Pulse 78 01/07/21 07:59 Resp 18 01/07/21 07:59 BP 106/47 L 01/07/21 07:59 Pulse Ox 91 01/07/21 11:28 Intake & Output 01/05/21 01/06/21 01/07/21 23:59 23:59 23:59 Intake Total 1574 / 1874 2451.5 / 2451.5 1654.5 / 1654.5 Output Total 1080 / 1330 1250 / 1250 400 / 400 Balance 494 / 544 1201.5 / 1201.5 1254.5 / 1254.5 Weight: 89.7 kg 92.6 kg 94.8 kg Intake: Oral 880 / 1180 300 / 300 Intake, IV Amount 694 / 694 2151.5 / 2151.5 1654.5 / 1654.5 0.45% Normal Saline 1,000 ML @ 457.5 / 457.5 542.5 / 542.5 75 mls/hr IV .[id number] [facility] Rx#: [id number] 0.9% Normal Saline 500 ML @ 999 500 / 500 mls/hr IV Q30M ONE Rx#: [id number] 0.9% Normal Saline 500 ML @ 999 500 / 500 mls/hr IV X1 ONE Rx#:[id number] Ferrlecit (GEQ) 250 MG In 0.9% 270 / 270 Normal Saline 250 ML @ 135 mls/ hr IV X1 ONE Rx#:[id number] Ferrlecit (GEQ) 250 MG In 0.9% 270 / 270 Normal Saline 250 ML @ 135 mls/ hr IV X1 ONE Rx#:[id number] Lactated Ringers 1,000 ML @ 999 1000 / 1000 mls/hr IV .Q1H1M [facility] Rx#: [id number] Unasyn 3 GM In 0.9% Normal 224 / 224 224 / 224 112 / 112 Saline 100 ML @ 150 mls/hr IV Q12 [facility] Rx#:[id number] Vancomycin 1,000 mg In 200 ml @ 200 / 200 200 / 200 200 mls/hr IV Q24H [facility] Rx#: [id number] Output: Urine 1080 / 1330 1250 / 1250 400 / 400 Other: Intake, Continuous Bladder 2,700 3,000 Irrigation Output, Continuous Bladder 2,615 3,550 Irrigation General: Alert, Oriented x3, Cooperative, No apparent distress HEENT: Atraumatic, Normocephalic Oral: Moist Mucosa Neck: Supple, Trachea Midline Lungs: Normal air movement Cardiovascular: Regular rate Abdomen: Soft, - - urine clear, CBI is off since yesterday Musculoskeletal: No Muscle Wasting Neurological: Cranial nerves II-XII grossly intact, Neuro grossly intact Psych/Mental Status: Normal Affect Microbiology Past 72 Hours 01/03/21 09:44 Urine Culture - Final Urine, Clean Catch GPC Poss Enterococcus sp Yeast, not Sury albicans 01/04/21 13:40 Urine Culture - Final Urine Catheter - Reaves Culture exhibits no growth. 01/03/21 16:09 Blood Culture - Preliminary Blood Culture (Wb) - Anticubital Right No growth in 48 hours. 01/03/21 15:13 Blood Culture - Preliminary Blood Culture (Wb) - Anticubital Right No growth in 48 hours. Laboratory Tests Past 24 Hrs 01/06/21 01/06/21 01/06/21 14:15 14:15 14:15 WBC RBC Hgb 8.0 L Hct 25.8 L MCV MCH MCHC RDW Std Deviation RDW Coeff of Petar Plt Count MPV Immature Gran % (Auto) Neut % (Auto) Lymph % (Auto) [place] % (Auto) Eos % (Auto) Baso % (Auto) Absolute Neuts (auto) Absolute Lymphs (auto) Nucleated RBC % Sodium 137 Potassium 3.9 Chloride 111 H Carbon Dioxide 20.0 L Anion Gap 6 BUN 52 H Creatinine 2.04 H Estim Creat Clear Calc 22.32 Est GFR (MDRD) Af Amer 32 L Est GFR (MDRD) Non-Af 26 L BUN/Creatinine Ratio 25.5 H Glucose 147 H Calcium 9.1 Vancomycin Trough 22.0 H Blood Type Antibody Screen Crossmatch 01/07/21 01/07/21 01/07/21 05:30 05:30 09:19 WBC 11.6 H RBC 2.42 L Hgb 7.1 L Hct 24.0 L MCV 99.2 H MCH 29.3 MCHC 29.6 L RDW Std Deviation 53.5 H RDW Coeff of Petar 14.7 H Plt Count 191 MPV 11.1 Immature Gran % (Auto) 0.700 Neut % (Auto) 66.5 Lymph % (Auto) 18.8 L [place] % (Auto) 8.5 Eos % (Auto) 5.2 H Baso % (Auto) 0.3 Absolute Neuts (auto) 7.7 Absolute Lymphs (auto) 2.18 Nucleated RBC % 0 Sodium 137 Potassium 3.7 Chloride 109 H Carbon Dioxide 19.0 L Anion Gap 9 BUN 51 H Creatinine 2.06 H Estim Creat Clear Calc 22.11 Est GFR (MDRD) Af Amer 31 L Est GFR (MDRD) Non-Af 26 L BUN/Creatinine Ratio 24.8 H Glucose 74 Calcium 8.9 Vancomycin Trough Blood Type A POSITIVE Antibody Screen NEGATIVE Crossmatch See Detail Medical Necessity - Tobacco Use Smoking Status: Never smoker Tobacco Use: Non-smoker Assessment/Plan All Active Problems (Last Reviewed 01/03/21 @ 18:[address] Yusra Carrillo MD) Calculus of proximal right ureter (Acute) Hydronephrosis, right (Acute) Pyelonephritis of right kidney (Acute) CHAZ (acute kidney injury) (Acute) D/C reaves when ok with nephrology and will check bladder scan PVR afterwards will plan to schedule for ureteroscopy and laser lithotripsy for 2-3 weeks after discharge
[2021-01-07] MEDS: Ferrous Sulfate 325 MG Tablet PO (13:56)
--- NOTE | 2021-01-07 14:11 | PN.ID_ITS ---
Patient Problems: Active and Suspected Problems (Last Reviewed 01/03/21 @ 18:[address] Yusra Carrillo MD) Calculus of proximal right ureter (Acute) Hydronephrosis, right (Acute) Pyelonephritis of right kidney (Acute) Complicated pyelonephritis CHAZ (acute kidney injury) (Acute) Subjective: Patient is alert overall clinically stable out of bed to a chair. On Unasyn 3 g IV every 12 hours. Microbiological data reviewed. The most recent urine culture was no growth. Patient currently has a three-way Howard catheter in place Objective: Alert does not appear toxic lungs are clear heart exam S1-S2 abdomen is obese but soft. - Physical Exam Vitals/I&O's: Vital Signs Temp Pulse Resp BP Pulse Ox 98.2 F 84 18 135/61 H 92 01/07/21 13:48 01/07/21 13:57 01/07/21 13:48 01/07/21 13:57 01/07/21 13:48 Oxygen Flow Rate (L/min) 3 Oxygen Delivery Method Room Air Weight: 94.8 kg Body Mass Index (BMI) 35.2 Intake and Output for Last 24 Hours 01/05/21 01/06/21 01/07/21 23:59 23:59 23:59 Intake Total 1574 / 1874 2451.5 / 2451.5 1654.5 / 1654.5 Output Total 1080 / 1330 1250 / 1250 1200 / 1200 Balance 494 / 544 1201.5 / 1201.5 454.5 / 454.5 Microbiology Past 72 Hours 01/03/21 09:44 Urine, Clean Catch Urine Culture - Final GPC Poss Enterococcus sp Yeast, not Sury albicans 01/04/21 13:40 Urine Catheter - Howard Urine Culture - Final Culture exhibits no growth. 01/03/21 16:09 Blood Culture (Wb) - Anticubital Right Blood Culture - Preliminary No growth in 48 hours. 01/03/21 15:13 Blood Culture (Wb) - Anticubital Right Blood Culture - Preliminary No growth in 48 hours. Laboratory Results 01/06/21 14:15: Vancomycin Trough 22.0 H 01/06/21 14:15: Hgb 8.0 L, Hct 25.8 L 01/06/21 14:15: Sodium 137, Potassium 3.9, Chloride 111 H, Carbon Dioxide 20.0 L , Anion Gap 6, BUN 52 H, Creatinine 2.04 H, Estim Creat Clear Calc 22.32, Est GFR (MDRD) Af Amer 32 L, Est GFR (MDRD) Non-Af 26 L, BUN/Creatinine Ratio 25.5 H , Glucose 147 H, Calcium 9.1 01/06/21 17:13: POC Glucose 174 H 01/06/21 21:41: POC Glucose 164 H 01/07/21 05:30: WBC 11.6 H, RBC 2.42 L, Hgb 7.1 L, Hct 24.0 L, MCV 99.2 H, MCH 29.3, MCHC 29.6 L, RDW Std Deviation 53.5 H, RDW Coeff of Petar 14.7 H, Plt Count 191, MPV 11.1, Immature Gran % (Auto) 0.700, Neut % (Auto) 66.5, Lymph % (Auto) 18.8 L, [place] % (Auto) 8.5, Eos % (Auto) 5.2 H, Baso % (Auto) 0.3, Absolute Neuts (auto) 7.7, Absolute Lymphs (auto) 2.18, Nucleated RBC % 0 01/07/21 05:30: Sodium 137, Potassium 3.7, Chloride 109 H, Carbon Dioxide 19.0 L , Anion Gap 9, BUN 51 H, Creatinine 2.06 H, Estim Creat Clear Calc 22.11, Est GFR (MDRD) Af Amer 31 L, Est GFR (MDRD) Non-Af 26 L, BUN/Creatinine Ratio 24.8 H , Glucose 74, Calcium 8.9 01/07/21 06:38: POC Glucose 84 01/07/21 09:19: Blood Type A POSITIVE, Antibody Screen NEGATIVE, Crossmatch See Detail 01/07/21 11:21: POC Glucose 124 H Current Medications Acetaminophen (Acetaminophen 325 Mg Tablet) 650 mg PO Q6H PRN PRN PRN Reason: Pain Score 1-10/Temp > 100.7 F Last Admin: 01/06/21 17:30 Dose: 650 mg Documented by: Albuterol Sulfate (Albuterol 2.5 Mg/3 Ml Vial.Neb.) 2.5 mg INHALATION Q2H PRN PRN PRN Reason: SOB/Wheezing Ascorbic Acid (Ascorbic Acid 500 Mg Tablet) 1,000 mg PO DAILY [facility] Last Admin: 01/07/21 08:04 Dose: 1,000 mg Documented by: Atorvastatin Calcium (Atorvastatin Calcium 20 Mg Tablet) 20 mg PO QHS [facility] Last Admin: 01/06/21 21:52 Dose: 20 mg Documented by: Carvedilol (Carvedilol 6.25 Mg Tablet) 6.25 mg PO BID [facility] Last Admin: 01/07/21 08:05 Dose: 6.25 mg Documented by: Cyanocobalamin (Cyanocobalamin 500 Mcg Tablet) 1,000 mcg PO DAILY@0800 [facility] Last Admin: 01/07/21 08:05 Dose: 1,000 mcg Documented by: Dextrose (Dextrose 50%-Water 25 Gm/50 Ml Disp.Syrin) 0 gm IV X1 PRN; Protocol PRN Reason: Hypoglycemia Escitalopram Oxalate (Escitalopram Oxalate 20 Mg Tablet) 20 mg PO DAILY [facility] Last Admin: 01/07/21 08:06 Dose: 20 mg Documented by: Ferrous Sulfate (Ferrous Sulfate 325 Mg Tablet) 325 mg PO DAILY@1200 [facility] Last Admin: 01/07/21 13:56 Dose: 325 mg Documented by: Gabapentin (Gabapentin 400 Mg Capsule) 400 mg PO DAILY [facility] Last Admin: 01/07/21 08:04 Dose: 400 mg Documented by: Gabapentin (Gabapentin 400 Mg Capsule) 400 mg PO QHS [facility] Last Admin: 01/06/21 21:42 Dose: 400 mg Documented by: Glucagon (Glucagon 1 Mg/Ml Syringe) 1 mg IM .X1 PRN PRN Reason: Hypoglycemia Hydralazine HCl (Hydralazine 20 Mg/Ml Vial) 10 mg IV Q6H PRN PRN PRN Reason: sbp>180 or dbp>120 Hydralazine HCl (Hydralazine 50 Mg Tablet) 50 mg PO TID [facility] Last Admin: 01/07/21 13:57 Dose: Not Given Documented by: Sodium Chloride () 250 mls @ 15 mls/hr IV .[id number] PRN PRN Reason: Saline Flush Sodium Chloride () 250 mls @ 15 mls/hr IV .[id number] PRN PRN Reason: Additional IVPB Infusion Ampicillin Sodium/Sulbactam (Sodium 3 gm/ Sodium Chloride) 112 mls @ 150 mls/hr IV Q12 [facility] Last Infusion: 01/07/21 09:05 Dose: Infused Documented by: Insulin Glargine (Insulin Glargine 100 Units/Ml Pen) 30 units SC DAILY [facility] Last Admin: 01/07/21 08:09 Dose: 30 u Documented by: Insulin Human Lispro (Insulin Lispro 100 Unit/Ml Insuln.Pen) 0 unit SC ACHS [facility]; Protocol Last Admin: 01/07/21 11:27 Dose: Not Given Documented by: Morphine Sulfate (Morphine 2 Mg/Ml Syringe) 2 mg IV Q4H PRN PRN PRN Reason: Pain Score 6-10 Last Admin: 01/06/21 15:33 Dose: 2 mg Documented by: Nitroglycerin (Nitroglycerin (Inpatient Use) 0.4 Mg Tab.Subl) 0.4 mg SL Q5M PRN PRN Reason: CARDIAC/CHEST PAIN Nystatin (Nystatin Powder 15gm Bottle) 1 applic TOPICAL BID [facility]; Protocol Last Admin: 01/07/21 08:04 Dose: 1 applic Documented by: Oxycodone HCl (Oxycodone 5 Mg Tablet) 5 mg PO Q4H PRN PRN PRN Reason: Pain Score 4-5 Last Admin: 01/06/21 17:30 Dose: 5 mg Documented by: Pantoprazole Sodium (Pantoprazole Sodium 40 Mg Tablet) 40 mg PO DAILY [facility] Last Admin: 01/07/21 08:04 Dose: 40 mg Documented by: Prochlorperazine Edisylate (Prochlorperazine 10 Mg/2 Ml Vial) 5 mg IV Q4H PRN PRN PRN Reason: Breakthrough Nausea/Vomiting Last Admin: 01/06/21 15:37 Dose: 5 mg Documented by: Sodium Chloride (0.9% Saline Lock 10 Ml Syringe) 10 - 40 ml IV UD PRN PRN Reason: SALINE FLUSH Last Admin: 01/06/21 08:36 Dose: 10 ml Documented by: Tamsulosin HCl (Tamsulosin Hcl 0.4 Mg Capsule) 0.4 mg PO DAILY [facility] Last Admin: 01/07/21 08:04 Dose: 0.4 mg Documented by: Medical Necessity - Tobacco Use Smoking Status: Never smoker Tobacco Use: Non-smoker Route of nutrition/ use of supplements: [] Nutritional Intake: [] IV Site: [] Howard Catheter: [] - Assessment/Plan Antibiotics: [] Assessment/Plan: [] Active and Suspected Problems (Last Reviewed 01/03/21 @ 18:[address] Yusra Carrillo MD) Calculus of proximal right ureter (Acute) Hydronephrosis, right (Acute) Pyelonephritis of right kidney (Acute) Complicated pyelonephritis CHAZ (acute kidney injury) (Acute) Currently on Unasyn. Continue supportive care.
[2021-01-07] MEDS: proCHLORPERazine 10 MG/2 ML Vial 5 MG IV (14:20)
[2021-01-07] MEDS: 0.9% Saline Lock 10 ML Syringe IV ×2 (14:21→17:09)
[2021-01-07] MEDS: Morphine 2 MG/ML Syringe IV (14:22)
[2021-01-07 17:20] LABS: Bedside Glucose 93 mg/dL (70-110)
[2021-01-07] MEDS: Atorvastatin Calcium 20 MG Tablet PO (21:28)
[2021-01-07 22:15] LABS: Bedside Glucose 130 mg/dL (70-110)
[2021-01-08] VITALS (14 sets, daily range): BP systolic 139–154; BP diastolic 55–87; PULSE 69–91; RESP 15–18; TEMP 36.6–36.9; O2SAT 96–97
[2021-01-08] MEDS: hydrALAZINE 50 MG Tablet PO ×2 (06:44→21:53)
[2021-01-08 07:05] LABS: Bedside Glucose 74 mg/dL (70-110)
[2021-01-08] MEDS: Cyanocobalamin 500 MCG Tablet 1000 MCG PO (08:11)
[2021-01-08] MEDS: Carvedilol 6.25 MG Tablet PO ×2 (08:11→21:52)
[2021-01-08] MEDS: Tamsulosin HCl 0.4 MG Capsule PO (08:12)
[2021-01-08] MEDS: Nystatin Powder 15gm Bottle 1 APPLIC TOPICAL ×2 (08:13→21:54)
[2021-01-08] MEDS: Escitalopram Oxalate 20 MG Tablet PO (08:13)
[2021-01-08] MEDS: Ascorbic Acid 500 MG Tablet 1000 MG PO (08:14)
[2021-01-08] MEDS: Gabapentin 400 MG Capsule PO ×2 (08:14→21:54)
[2021-01-08] MEDS: Pantoprazole Sodium 40 MG Tablet PO (08:14)
[2021-01-08 09:42] LABS: Absolute Lymphocyte Count 1.21 X10^3/uL (0.83-4.51); Absolute Neutrophil Count 10.2 X10^3/uL (2.0-7.7); Basophil# 0.03 X10^3/uL; Basophil% 0.2 % (0-1); Eosinophil# 0.49 X10^3/uL; Eosinophils% 3.8 % (0-5); Hemoglobin 8.5 g/dL (12.0-15.0); Lymphocyte # 1.21 X10^3/ul (4.0); Lymphocyte % 9.4 % (19-41); Mean Corp Hgb Conc 31.5 g/dL (32-36); Mean Corpuscular Hgb 29.7 pg (27.0-32.0); Mean Corpuscular Volume 94.4 fL (81-99); Mean Platelet Vol. 10.8 fl (6.2-12.0); Monocyte# 0.87 X10^3/uL; Monocyte% 6.7 % (0-10); NRBC Flagged by Analyzer 0 % (0-5); Neutrophil # 10.24 X10^3/uL (2.7-7.7); Neutrophil % 79.1 % (47-70); Platelet Count 213 K/mm3 (150-450); RBC Distribution Width CV 14.7 % (11.6-14.6); RBC Distribution Width SD 50.7 fl (35.1-43.9); Red Blood Count 2.86 M/mm3 (4.2-5.4); White Blood Count 12.9 K/mm3 (4.4-11.0)
[2021-01-08 11:31] LABS: Bedside Glucose 138 mg/dL (70-110)
[2021-01-08] MEDS: Acetaminophen 325 MG Tablet 650 MG PO (11:45)
--- NOTE | 2021-01-08 12:39 | PCM.PN.REN ---
Patient Problems: Active and Suspected Problems (Last Reviewed 01/03/21 @ 18:[address] Yusra Carrillo MD) Calculus of proximal right ureter (Acute) Hydronephrosis, right (Acute) Pyelonephritis of right kidney (Acute) Complicated pyelonephritis CHAZ (acute kidney injury) (Acute) Subjective: Patient is doing well. hematuria resolved No N/V/SOB - Physical Exam Vitals/I&O's: Vital Signs Temp Pulse Resp BP Pulse Ox 97.9 F 87 18 143/81 H 97 01/08/21 09:00 01/08/21 09:00 01/08/21 09:00 01/08/21 09:00 01/08/21 09:00 Oxygen Flow Rate (L/min) 3 Oxygen Delivery Method Room Air Weight: 94.8 kg Body Mass Index (BMI) 35.2 Intake and Output for Last 24 Hours 01/06/21 01/07/21 01/08/21 23:59 23:59 23:59 Intake Total 2451.5 / 2451.5 2166.5 / 2266.5 552 / 552 Output Total 1250 / 1250 1200 / 1450 750 / 750 Balance 1201.5 / 1201.5 966.5 / 816.5 -198 / -198 General: Alert, Oriented x3 HEENT: Atraumatic Oral: Moist Mucosa Neck: Supple, No JVD Lungs: Clear to auscultation, Normal air movement, No rhonchi Cardiovascular: Regular rate, Regular Rhythm, Normal S1, Normal S2 Abdomen: Bowel Sounds Present, Soft, Non Tender, Non-Distended Extremities: No clubbing, No cyanosis, Edema - +1 edema Skin: No rashes Neurological: Cranial nerves II-XII grossly intact, Neuro grossly intact Psych/Mental Status: Normal Affect Microbiology Past 72 Hours 01/03/21 09:44 Urine, Clean Catch Urine Culture - Final GPC Poss Enterococcus sp Yeast, not Sury albicans 01/04/21 13:40 Urine Catheter - Howard Urine Culture - Final Culture exhibits no growth. 01/03/21 16:09 Blood Culture (Wb) - Anticubital Right Blood Culture - Preliminary No growth in 48 hours. 01/03/21 15:13 Blood Culture (Wb) - Anticubital Right Blood Culture - Preliminary No growth in 48 hours. Laboratory Results 01/07/21 09:19: Blood Type A POSITIVE, Antibody Screen NEGATIVE, Crossmatch See Detail 01/07/21 16:26: POC Glucose 93 01/07/21 21:50: POC Glucose 130 H 01/08/21 06:46: POC Glucose 74 01/08/21 09:11: WBC 12.9 H, RBC 2.86 L, Hgb 8.5 L, Hct 27.0 L, MCV 94.4, MCH 29.7, MCHC 31.5 L D, RDW Std Deviation 50.7 H, RDW Coeff of Petar 14.7 H, Plt Count 213, MPV 10.8, Immature Gran % (Auto) 0.800, Neut % (Auto) 79.1 H, Lymph % (Auto) 9.4 L, [place] % (Auto) 6.7, Eos % (Auto) 3.8, Baso % (Auto) 0.2, Absolute Neuts (auto) 10.2 H, Absolute Lymphs (auto) 1.21, Nucleated RBC % 0 01/08/21 09:11: Sodium Pending, Potassium Pending, Chloride Pending, Carbon Dioxide Pending, Anion Gap Pending, BUN Pending, Creatinine Pending, Est GFR (MDRD) Af Amer Pending, Est GFR (MDRD) Non-Af Pending, BUN/Creatinine Ratio Pending, Glucose Pending, Calcium Pending, Magnesium Pending, Total Bilirubin Pending, AST Pending, ALT Pending, Alkaline Phosphatase Pending, Total Protein Pending, Albumin Pending 01/08/21 11:24: POC Glucose 138 H Current Medications Acetaminophen (Acetaminophen 325 Mg Tablet) 650 mg PO Q6H PRN PRN PRN Reason: Pain Score 1-10/Temp > 100.7 F Last Admin: 01/08/21 11:45 Dose: 650 mg Documented by: Albuterol Sulfate (Albuterol 2.5 Mg/3 Ml Vial.Neb.) 2.5 mg INHALATION Q2H PRN PRN PRN Reason: SOB/Wheezing Ascorbic Acid (Ascorbic Acid 500 Mg Tablet) 1,000 mg PO DAILY [facility] Last Admin: 01/08/21 08:14 Dose: 1,000 mg Documented by: Aspirin (Aspirin E.C. 81 Mg Tablet) 81 mg PO DAILY@0800 [facility] Aspirin (Aspirin E.C. 81 Mg Tablet) 81 mg PO X1 ONE Stop: 01/08/21 12:37 Atorvastatin Calcium (Atorvastatin Calcium 20 Mg Tablet) 20 mg PO QHS [facility] Last Admin: 01/07/21 21:28 Dose: 20 mg Documented by: Carvedilol (Carvedilol 6.25 Mg Tablet) 6.25 mg PO BID [facility] Last Admin: 01/08/21 08:11 Dose: 6.25 mg Documented by: Cyanocobalamin (Cyanocobalamin 500 Mcg Tablet) 1,000 mcg PO DAILY@0800 [facility] Last Admin: 01/08/21 08:11 Dose: 1,000 mcg Documented by: Dextrose (Dextrose 50%-Water 25 Gm/50 Ml Disp.Syrin) 0 gm IV X1 PRN; Protocol PRN Reason: Hypoglycemia Escitalopram Oxalate (Escitalopram Oxalate 20 Mg Tablet) 20 mg PO DAILY [facility] Last Admin: 01/08/21 08:13 Dose: 20 mg Documented by: Ferrous Sulfate (Ferrous Sulfate 325 Mg Tablet) 325 mg PO DAILY@1200 [facility] Last Admin: 01/07/21 13:56 Dose: 325 mg Documented by: Gabapentin (Gabapentin 400 Mg Capsule) 400 mg PO DAILY [facility] Last Admin: 01/08/21 08:14 Dose: 400 mg Documented by: Gabapentin (Gabapentin 400 Mg Capsule) 400 mg PO QHS [facility] Last Admin: 01/07/21 21:29 Dose: 400 mg Documented by: Glucagon (Glucagon 1 Mg/Ml Syringe) 1 mg IM .X1 PRN PRN Reason: Hypoglycemia Hydralazine HCl (Hydralazine 20 Mg/Ml Vial) 10 mg IV Q6H PRN PRN PRN Reason: sbp>180 or dbp>120 Hydralazine HCl (Hydralazine 50 Mg Tablet) 50 mg PO TID [facility] Last Admin: 01/08/21 06:44 Dose: 50 mg Documented by: Sodium Chloride () 250 mls @ 15 mls/hr IV .[id number] PRN PRN Reason: Saline Flush Sodium Chloride () 250 mls @ 15 mls/hr IV .[id number] PRN PRN Reason: Additional IVPB Infusion Ampicillin Sodium/Sulbactam (Sodium 3 gm/ Sodium Chloride) 112 mls @ 150 mls/hr IV Q12 [facility] Last Infusion: 01/08/21 10:23 Dose: Infused Documented by: Insulin Glargine (Insulin Glargine 100 Units/Ml Pen) 30 units SC DAILY [facility] Last Admin: 01/08/21 08:17 Dose: 74 u Documented by: Insulin Human Lispro (Insulin Lispro 100 Unit/Ml Insuln.Pen) 0 unit SC [facility]; Protocol Last Admin: 01/08/21 11:41 Dose: Not Given Documented by: Morphine Sulfate (Morphine 2 Mg/Ml Syringe) 2 mg IV Q4H PRN PRN PRN Reason: Pain Score 6-10 Last Admin: 01/07/21 14:22 Dose: 2 mg Documented by: Nitroglycerin (Nitroglycerin (Inpatient Use) 0.4 Mg Tab.Subl) 0.4 mg SL Q5M PRN PRN Reason: CARDIAC/CHEST PAIN Nystatin (Nystatin Powder 15gm Bottle) 1 applic TOPICAL BID [facility]; Protocol Last Admin: 01/08/21 08:13 Dose: 1 applic Documented by: Oxycodone HCl (Oxycodone 5 Mg Tablet) 5 mg PO Q4H PRN PRN PRN Reason: Pain Score 4-5 Last Admin: 01/06/21 17:30 Dose: 5 mg Documented by: Pantoprazole Sodium (Pantoprazole Sodium 40 Mg Tablet) 40 mg PO DAILY [facility] Last Admin: 01/08/21 08:14 Dose: 40 mg Documented by: Prochlorperazine Edisylate (Prochlorperazine 10 Mg/2 Ml Vial) 5 mg IV Q4H PRN PRN PRN Reason: Breakthrough Nausea/Vomiting Last Admin: 01/07/21 14:20 Dose: 5 mg Documented by: Sodium Chloride (0.9% Saline Lock 10 Ml Syringe) 10 - 40 ml IV UD PRN PRN Reason: SALINE FLUSH Last Admin: 01/07/21 17:09 Dose: 10 ml Documented by: Tamsulosin HCl (Tamsulosin Hcl 0.4 Mg Capsule) 0.4 mg PO DAILY [facility] Last Admin: 01/08/21 08:12 Dose: 0.4 mg Documented by: Medical Necessity - Tobacco Use Smoking Status: Never smoker Tobacco Use: Non-smoker Assessment/Plan All Active Problems (Last Reviewed 01/03/21 @ 18:[address] 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 urology is following. resolved. UTI: Abx as per primary service Will continue to follow d/w Dr. Sergio Alicia MD .
[2021-01-08 13:16] LABS: ALB/GLOB Ratio 0.7 RATIO (0.9-2.4); AST(SGOT) 11 U/L (15-37); Alanine Aminotransfer ALT/SGPT 11 U/L (13-56); Albumin, Serum 2.5 g/dL (3.2-5.0); Alkaline Phosphatase 73 U/L (45-117); Anion Gap 6 (5-15); BUN 48 mg/dL (7-18); BUN/Creat Ratio 24.9 RATIO (10-20); Calcium,Total 9.3 mg/dL (8.5-10.1); Chloride 108 mmol/L (98-107); Creatinine, Serum 1.93 mg/dL (0.55-1.02); EST Glomerular Filtration Rate 28 mL/min (>60); Est Glom Filt Rate - Afr Amer 34 mL/min (>60); Globulin 3.8 g/dL (2.2-4.2); Glucose 132 mg/dL (74-106); Magnesium 2.1 mg/dL (1.6-2.6); Potassium 3.8 mmol/L (3.5-5.1); Protein, Total 6.3 g/dL (6.4-8.2); Sodium Level 136 mmol/L (136-145)
[2021-01-08] MEDS: Ferrous Sulfate 325 MG Tablet PO (13:29)
[2021-01-08] MEDS: APIXABAN 2.5 MG TABLET PO ×2 (13:59→21:53)
[2021-01-08] MEDS: oxyCODONE 5 MG Tablet PO (14:23)
--- NOTE | 2021-01-08 16:28 | PCM.PN.HOSP ---
Patient Problems: Active and Suspected Problems (Last Reviewed 01/03/21 @ 18:[address] Yusra Carrillo MD) Calculus of proximal right ureter (Acute) Hydronephrosis, right (Acute) Pyelonephritis of right kidney (Acute) Complicated pyelonephritis CHAZ (acute kidney injury) (Acute) Reason for Visit: Follow-up for secondary right proximal ureteric stone, Enterococcus UTI, CHAZ and acute anemia from blood loss Objective: Hematuria has resolved. Urine is clear on the catheter. H&H improved to 8.5. General: Alert, Oriented x3, Cooperative HEENT: Atraumatic, PERRLA, EOMI, Normocephalic Oral: No Gingival or Mucosal Lesions/ Ulcerations Neck: Supple, No JVD, Negative Carotid Bruits Lungs: Air entry diminished in bilateral lung bases. No crepitation/rhonchi Cardiovascular: Regular rate, Regular Rhythm, Normal S1, Normal S2, No murmurs Abdomen: Bowel Sounds Present, Soft, Non Tender, Non-Distended : Catheter clear urine. CBI is stopped. Extremities: Mild edema however right leg and upper extremities., Capillary Refill Less than 3 Seconds Skin: No rashes, No breakdown Musculoskeletal: No Tenderness to Palpation of Joints or Extremities Neurological: Cranial nerves II-XII grossly intact, Deep Tendon Reflexes 2+/4 and Symmetrical, Neuro grossly intact Psych/Mental Status: Normal Affect, Appropriate. Vitals/I&O's: Vital Signs Temp Pulse Resp BP Pulse Ox 97.8 F 81 18 139/87 H 96 01/08/21 15:00 01/08/21 15:00 01/08/21 15:00 01/08/21 15:00 01/08/21 15:00 Oxygen Flow Rate (L/min) 3 Oxygen Delivery Method Room Air Weight: 208 lb 15.971 oz Body Mass Index (BMI) 35.2 Intake and Output for Last 24 Hours 01/06/21 01/07/21 01/08/21 23:59 23:59 23:59 Intake Total 2451.5 / 2451.5 2166.5 / 2266.5 552 / 552 Output Total 1250 / 1250 1200 / 1450 750 / 750 Balance 1201.5 / 1201.5 966.5 / 816.5 -198 / -198 Microbiology Past 72 Hours 01/03/21 16:09 Blood Culture (Wb) - Anticubital Right Blood Culture - Final No growth in 5 days. 01/03/21 15:13 Blood Culture (Wb) - Anticubital Right Blood Culture - Final No growth in 5 days. 01/03/21 09:44 Urine, Clean Catch Urine Culture - Final GPC Poss Enterococcus sp Yeast, not Sury albicans 01/04/21 13:40 Urine Catheter - Howard Urine Culture - Final Culture exhibits no growth. Laboratory Results 01/07/21 16:26: POC Glucose 93 01/07/21 21:50: POC Glucose 130 H 01/08/21 06:46: POC Glucose 74 01/08/21 09:11: WBC 12.9 H, RBC 2.86 L, Hgb 8.5 L, Hct 27.0 L, MCV 94.4, MCH 29.7, MCHC 31.5 L D, RDW Std Deviation 50.7 H, RDW Coeff of Petar 14.7 H, Plt Count 213, MPV 10.8, Immature Gran % (Auto) 0.800, Neut % (Auto) 79.1 H, Lymph % (Auto) 9.4 L, [place] % (Auto) 6.7, Eos % (Auto) 3.8, Baso % (Auto) 0.2, Absolute Neuts (auto) 10.2 H, Absolute Lymphs (auto) 1.21, Nucleated RBC % 0 01/08/21 09:11: Sodium 136, Potassium 3.8, Chloride 108 H, Carbon Dioxide 22.0, Anion Gap 6, BUN 48 H, Creatinine 1.93 H, Estim Creat Clear Calc 23.60, Est GFR (MDRD) Af Amer 34 L, Est GFR (MDRD) Non-Af 28 L, BUN/Creatinine Ratio 24.9 H, Glucose 132 H, Calcium 9.3, Magnesium 2.1, Total Bilirubin 0.40, AST 11 L, ALT 11 L, Alkaline Phosphatase 73, Total Protein 6.3 L, Albumin 2.5 L, Globulin 3.8, Albumin/Globulin Ratio 0.7 L 01/08/21 11:24: POC Glucose 138 H Current Medications Acetaminophen (Acetaminophen 325 Mg Tablet) 650 mg PO Q6H PRN PRN PRN Reason: Pain Score 1-10/Temp > 100.7 F Last Admin: 01/08/21 11:45 Dose: 650 mg Documented by: Albuterol Sulfate (Albuterol 2.5 Mg/3 Ml Vial.Neb.) 2.5 mg INHALATION Q2H PRN PRN PRN Reason: SOB/Wheezing Apixaban (Apixaban 2.5 Mg Tablet) 2.5 mg PO Q12 [facility] Last Admin: 01/08/21 13:59 Dose: 2.5 mg Documented by: Ascorbic Acid (Ascorbic Acid 500 Mg Tablet) 1,000 mg PO DAILY [facility] Last Admin: 01/08/21 08:14 Dose: 1,000 mg Documented by: Atorvastatin Calcium (Atorvastatin Calcium 20 Mg Tablet) 20 mg PO QHS [facility] Last Admin: 01/07/21 21:28 Dose: 20 mg Documented by: Carvedilol (Carvedilol 6.25 Mg Tablet) 6.25 mg PO BID [facility] Last Admin: 01/08/21 08:11 Dose: 6.25 mg Documented by: Cyanocobalamin (Cyanocobalamin 500 Mcg Tablet) 1,000 mcg PO DAILY@0800 [facility] Last Admin: 01/08/21 08:11 Dose: 1,000 mcg Documented by: Dextrose (Dextrose 50%-Water 25 Gm/50 Ml Disp.Syrin) 0 gm IV X1 PRN; Protocol PRN Reason: Hypoglycemia Escitalopram Oxalate (Escitalopram Oxalate 20 Mg Tablet) 20 mg PO DAILY [facility] Last Admin: 01/08/21 08:13 Dose: 20 mg Documented by: Ferrous Sulfate (Ferrous Sulfate 325 Mg Tablet) 325 mg PO DAILY@1200 [facility] Last Admin: 01/08/21 13:29 Dose: 325 mg Documented by: Furosemide (Furosemide 40 Mg Tablet) 40 mg PO DAILY [facility] Gabapentin (Gabapentin 400 Mg Capsule) 400 mg PO DAILY [facility] Last Admin: 01/08/21 08:14 Dose: 400 mg Documented by: Gabapentin (Gabapentin 400 Mg Capsule) 400 mg PO QHS [facility] Last Admin: 01/07/21 21:29 Dose: 400 mg Documented by: Glucagon (Glucagon 1 Mg/Ml Syringe) 1 mg IM .X1 PRN PRN Reason: Hypoglycemia Hydralazine HCl (Hydralazine 20 Mg/Ml Vial) 10 mg IV Q6H PRN PRN PRN Reason: sbp>180 or dbp>120 Hydralazine HCl (Hydralazine 50 Mg Tablet) 50 mg PO TID [facility] Last Admin: 01/08/21 14:00 Dose: Not Given Documented by: Sodium Chloride () 250 mls @ 15 mls/hr IV .[id number] PRN PRN Reason: Saline Flush Sodium Chloride () 250 mls @ 15 mls/hr IV .[id number] PRN PRN Reason: Additional IVPB Infusion Ampicillin Sodium/Sulbactam (Sodium 3 gm/ Sodium Chloride) 112 mls @ 150 mls/hr IV Q12 [facility] Last Infusion: 01/08/21 10:23 Dose: Infused Documented by: Insulin Glargine (Insulin Glargine 100 Units/Ml Pen) 30 units SC DAILY [facility] Last Admin: 01/08/21 08:17 Dose: 74 u Documented by: Insulin Human Lispro (Insulin Lispro 100 Unit/Ml Insuln.Pen) 0 unit SC ACHS [facility]; Protocol Last Admin: 01/08/21 11:41 Dose: Not Given Documented by: Morphine Sulfate (Morphine 2 Mg/Ml Syringe) 2 mg IV Q4H PRN PRN PRN Reason: Pain Score 6-10 Last Admin: 01/07/21 14:22 Dose: 2 mg Documented by: Nitroglycerin (Nitroglycerin (Inpatient Use) 0.4 Mg Tab.Subl) 0.4 mg SL Q5M PRN PRN Reason: CARDIAC/CHEST PAIN Nystatin (Nystatin Powder 15gm Bottle) 1 applic TOPICAL BID [facility]; Protocol Last Admin: 01/08/21 08:13 Dose: 1 applic Documented by: Oxycodone HCl (Oxycodone 5 Mg Tablet) 5 mg PO Q4H PRN PRN PRN Reason: Pain Score 4-5 Last Admin: 01/08/21 14:23 Dose: 5 mg Documented by: Pantoprazole Sodium (Pantoprazole Sodium 40 Mg Tablet) 40 mg PO DAILY [facility] Last Admin: 01/08/21 08:14 Dose: 40 mg Documented by: Prochlorperazine Edisylate (Prochlorperazine 10 Mg/2 Ml Vial) 5 mg IV Q4H PRN PRN PRN Reason: Breakthrough Nausea/Vomiting Last Admin: 01/07/21 14:20 Dose: 5 mg Documented by: Sodium Chloride (0.9% Saline Lock 10 Ml Syringe) 10 - 40 ml IV UD PRN PRN Reason: SALINE FLUSH Last Admin: 01/07/21 17:09 Dose: 10 ml Documented by: Tamsulosin HCl (Tamsulosin Hcl 0.4 Mg Capsule) 0.4 mg PO DAILY [facility] Last Admin: 01/08/21 08:12 Dose: 0.4 mg Documented by: STROKE Vital Signs/Narrative: Vital Signs Temp Pulse Resp BP Pulse Ox 01/08/21 15:00 97.8 F 81 18 139/87 H 96 Medical Necessity - Tobacco Use Smoking Status: Never smoker Tobacco Use: Non-smoker Assessment/Plan All Active Problems (Last Reviewed 01/03/21 @ 18:[address] Yusra Carrillo MD) Calculus of proximal right ureter (Acute) Hydronephrosis, right (Acute) Pyelonephritis of right kidney (Acute) CHAZ (acute kidney injury) (Acute) The patient is a 65 year old F with multiple comorbidities as listed above came to ED with right lumbar region abdominal pain that started yesterday evening along with nausea and vomiting since last night. CT abdomen consistent with right sided complicated pyelonephritis and right hydroureteronephrosis 1. Sepsis due to right-sided complicated pyelonephritis/upper UTI and hydroureteronephrosis from acute obstructing 6 mm right proximal ureteric stone: Patient was initially admitted in PCU but transferred to ICU when she got hypoxic in PACU room.. Patient lactic acid normal. Dr. Carrillo was consulted. Initially started on IV ceftriaxone but changed to Unasyn today. On IV fluid for renal perfusion. 01/04: WBC count similar but urine culture shows GPC possible Enterococcus 1000-10,000 colonies. Although count is not high but will treat with IV Unasyn to cover Enterococcus. Urine culture count may be low because of right ureteric obstruction and not proper drainage at time of urine collection. Blood cultures x2 are pending. Patient had cystoscopy with right ureteral stent insertion on 01/04. 01/05: ID note reviewed. Continue antibiotic. Repeat urine culture preliminary shows no growth. 01/06: Urine culture shows GPC possible Enterococcus and yeast with repeat urine culture no growth. Antibiotic changed to Unasyn. Vancomycin discontinued as patient did not had fever chills, leukocytosis improving. 01/07: Seen by ID, continue Unasyn. I called microbiology lab and it seems Enterococcus is vancomycin sensitive. 2. Acute anemia due to blood loss, hematuria after stent placement: Hemoglobin dropped from 11.5-8.1. 200 mg IV iron sucrose given. Plavix discontinued. Eliquis already discontinued yesterday. Continue baby aspirin for now. Urine is almost clear. Hopefully, H&H is stabilized. Monitor H&H at night and then daily tomorrow a.m. 01/06: H&H is stable at 8.0. Iron infusion given. 01/07: Severe anemia, hemoglobin 7.1. 1 unit of PRBC ordered and transfused. Monitor CBC. Aspirin discontinued for now 01/08: Hemoglobin is improved to 8.5. Started on low-dose Eliquis 2.5 mg twice daily with plan to increase to therapeutic 5 mg twice daily tomorrow. Consider starting aspirin after 3 days of full dose of Eliquis to be on the cautious side. . Hypertensive urgency: Patient has history of peripheral arterial disease, history of stroke: Last blood pressure 122/75. Monitor blood pressure and titrate antihypertensive medications accordingly. 01/04: Blood pressure is controlled. 12 Lead EKG showed sinus rhythm at 85 bpm with first-degree AV block with old anterior infarct. QTC 464 ms. 4. Acute kidney injury probably from prerenal/sepsis/ATN/CIARAN on CKD stage IIIb : UA shows proteinuria. BUN/creatinine 39/1.58 elevated from the baseline 38/1.4. IV fluid for hydration. Monitor kidney function and electrolytes. Avoid nephrotoxic medications. 01/04: BUN/creatinine elevated. Continue IV fluid normal saline. K5.2. Mild hyperkalemia, Kayexalate 30 g 1 dose given. 01/05: Improvement in creatinine trend. 01/06: Improvement in creatinine. Continue IV fluid half-normal saline 01/07: Creatinine remains same but patient oliguric 100 mL in last 24 hours. Associate Professor Of English consulted. 1 L of LR bolus, Lasix 60 mg IV and Howard catheter was flushed/irrigated. 1200 mL urine output since morning. 01/08: Improvement in creatinine 1.9. Watch for hematuria after start of Eliquis with plan to remove catheter tomorrow a.m. and discharge if no hematuria. 5. 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 Patient on aspirin 325 mg daily, Plavix, atorvastatin and carvedilol. Hold losartan as patient has CHAZ. Eliquis is temporarily held because patient had hematuria in Howard catheter. 6. Diabetes mellitus type 1 complicated with diabetic nephropathy, neuropathy and retinopathy: Patient also has history of obstructive sleep apnea, dyslipidemia. History of mild coronary artery disease but never had heart cath. Last echo in October 2019 shows EF 65% with stage I diastolic dysfunction. Dobutamine stress echo negative for ischemia by EKG and echo criteria. On Lantus and short-acting insulin at home. Dose decreased according to the serum glucose in BMP. On gabapentin dosage discharge as per kidney function. 01/06: Glucose is controlled. 7. Multiple comorbidities include anemia of chronic disease. VTE prophylaxis: Patient on Eliquis 5 mg twice daily at home. Hold it for cystoscopy and imaging surgery but can resume after procedure. Bilateral SCDs. Total time of the visit including total time spent in counseling or coordination of care, (more than 50% of the total time, spent in obtaining medical information from nurses and other ancillary care providers,explaining to the patient about labs, imaging, diagnosis and management), discussion with merchandise flow team leader, urologist and ID, review of labs and imaging is 30 minutes. Living will/advanced directive/end of life care: Patient does not have living will or advanced directive. Her is power of assistant county attorney for health. After discussion of benefits/risks procedures involved with full code, DNR CC arrest and DNR CC, the patient opted for full code but there is no improvement in 48 to 72 hours, did not wanted to be vegetable state and wanted withdrawal of life support measures. Initially, patient does want artificial life support including intubation, tube feed, ventilator and/chest compression, central venous catheter, vasopressor and DC shock if needed Microbiology Past 72 Hours 01/03/21 16:09 Blood Culture (Wb) - Anticubital Right Blood Culture - Final No growth in 5 days. 01/03/21 15:13 Blood Culture (Wb) - Anticubital Right Blood Culture - Final No growth in 5 days. 01/03/21 09:44 Urine, Clean Catch Urine Culture - Final GPC Poss Enterococcus sp Yeast, not Sury albicans 01/04/21 13:40 Urine Catheter - Howard Urine Culture - Final Culture exhibits no growth. Laboratory Results 01/07/21 16:26: POC Glucose 93 01/07/21 21:50: POC Glucose 130 H 01/08/21 06:46: POC Glucose 74 01/08/21 09:11: WBC 12.9 H, RBC 2.86 L, Hgb 8.5 L, Hct 27.0 L, MCV 94.4, MCH 29.7, MCHC 31.5 L D, RDW Std Deviation 50.7 H, RDW Coeff of Petar 14.7 H, Plt Count 213, MPV 10.8, Immature Gran % (Auto) 0.800, Neut % (Auto) 79.1 H, Lymph % (Auto) 9.4 L, [place] % (Auto) 6.7, Eos % (Auto) 3.8, Baso % (Auto) 0.2, Absolute Neuts (auto) 10.2 H, Absolute Lymphs (auto) 1.21, Nucleated RBC % 0 01/08/21 09:11: Sodium 136, Potassium 3.8, Chloride 108 H, Carbon Dioxide 22.0, Anion Gap 6, BUN 48 H, Creatinine 1.93 H, Estim Creat Clear Calc 23.60, Est GFR (MDRD) Af Amer 34 L, Est GFR (MDRD) Non-Af 28 L, BUN/Creatinine Ratio 24.9 H, Glucose 132 H, Calcium 9.3, Magnesium 2.1, Total Bilirubin 0.40, AST 11 L, ALT 11 L, Alkaline Phosphatase 73, Total Protein 6.3 L, Albumin 2.5 L, Globulin 3.8, Albumin/Globulin Ratio 0.7 L 01/08/21 11:24: POC Glucose 138 H Inpatient E&M: 99562 Subs Hosp L2
[2021-01-08 16:50] LABS: Bedside Glucose 137 mg/dL (70-110)
[2021-01-08] MEDS: Atorvastatin Calcium 20 MG Tablet PO (21:53)
[2021-01-08 22:21] LABS: Bedside Glucose 120 mg/dL (70-110)
[2021-01-09] VITALS (7 sets, daily range): BP systolic 138–157; BP diastolic 49–59; PULSE 75–81; RESP 18; TEMP 36.2–36.8; O2SAT 92–95
[2021-01-09] MEDS: 0.9% Saline Lock 10 ML Syringe IV (06:28)
[2021-01-09] MEDS: hydrALAZINE 50 MG Tablet PO (06:29)
[2021-01-09 06:33] LABS: Absolute Lymphocyte Count 1.21 X10^3/uL (0.83-4.51); Absolute Neutrophil Count 11.8 X10^3/uL (2.0-7.7); Basophil# 0.03 X10^3/uL; Basophil% 0.2 % (0-1); Eosinophil# 0.29 X10^3/uL; Hematocrit 26.1 % (37-47); Hemoglobin 8.2 g/dL (12.0-15.0); Lymphocyte # 1.21 X10^3/ul (4.0); Lymphocyte % 8.2 % (19-41); Mean Corp Hgb Conc 31.4 g/dL (32-36); Mean Corpuscular Hgb 29.7 pg (27.0-32.0); Mean Corpuscular Volume 94.6 fL (81-99); Mean Platelet Vol. 10.5 fl (6.2-12.0); Monocyte# 1.28 X10^3/uL; Monocyte% 8.7 % (0-10); NRBC Flagged by Analyzer 0 % (0-5); Neutrophil # 11.77 X10^3/uL (2.7-7.7); Neutrophil % 80.2 % (47-70); Platelet Count 218 K/mm3 (150-450); RBC Distribution Width CV 14.6 % (11.6-14.6); RBC Distribution Width SD 50.4 fl (35.1-43.9); Red Blood Count 2.76 M/mm3 (4.2-5.4); White Blood Count 14.7 K/mm3 (4.4-11.0)
[2021-01-09 06:55] LABS: Bedside Glucose 95 mg/dL (70-110)
[2021-01-09 07:08] LABS: Anion Gap 8 (5-15); BUN 45 mg/dL (7-18); Calcium,Total 9.3 mg/dL (8.5-10.1); Chloride 108 mmol/L (98-107); EST Glomerular Filtration Rate 30 mL/min (>60); Est Glom Filt Rate - Afr Amer 37 mL/min (>60); Glucose 94 mg/dL (74-106); Potassium 3.6 mmol/L (3.5-5.1); Sodium Level 136 mmol/L (136-145)
[2021-01-09] MEDS: Acetaminophen 325 MG Tablet 650 MG PO (08:34)
[2021-01-09] MEDS: Cyanocobalamin 500 MCG Tablet 1000 MCG PO (08:35)
--- NOTE | 2021-01-09 10:04 | DCINST_ITS ---
- Discharge Diagnoses Current Active Problems: Current Active and Chronic Problems (Last Reviewed 01/03/21 @ 18:[address] Yusra Carrillo MD) Calculus of proximal right ureter (Acute) Hydronephrosis, right (Acute) Pyelonephritis of right kidney (Acute) Complicated pyelonephritis Diabetes mellitus type 1 with atherosclerosis of arteries of extremities (Chronic) CHAZ (acute kidney injury) (Acute) JOSE on CPAP (Chronic) Diabetic neuropathy (Chronic) Nonhealing surgical wound (Chronic) Diabetic foot ulcer (Chronic) Diabetic ulcer of foot with fat layer exposed (Chronic) PAD (peripheral artery disease) (Chronic) S/P bypass graft of extremity (Chronic) Obstructive sleep apnea (Chronic) Uses CPAP Constitutional obesity (Chronic) History of stroke (Chronic 2004) Left hemispheric 2004 Abnormal EKG (Chronic) Proliferative diabetic retinopathy associated with type 2 diabetes mellitus (Chronic) Gastroparesis (Chronic) GERD (gastroesophageal reflux disease) (Chronic) Peripheral vascular disease (Chronic) Hyperlipidemia (Chronic) Essential hypertension (Chronic) 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) Balance problem (Chronic) Hemiparesis affecting dominant side as late effect of stroke (Chronic) You will use the following diet at home:: Calorie/Carbohydrate Controlled (specify 1200, 1400, etc), Cardiac Your food should be the consistency of: Regular Discharge Activity: May Not Drive Call your doctor if you observe: Fever of 101 or Higher, Numbness or Tingling, Inability to urinate, Inability to have a bowel movement, Shortness of breath, Dizziness, Fainting spells, Swelling in the ankles, Chest pain, Prolonged hicc oughing, Increased palpitations (irregular heartbeat), Calf discomfort, Uncontrolled pain Allergies/Adverse Reactions: Allergies meloxicam Adverse Reaction (Intermediate, Verified 01/03/21 08:37) GI upset Sulfa (Sulfonamide Antibiotics) Adverse Reaction (Intermediate, Verified 01/03/21 08:37) Swelling Medications to take at Discharge atorvastatin 20 mg tablet 20 mg PO QHS 09/30/19 biotin 5,000 mcg disintegrating tablet 5,000 mcg PO QHS 09/30/19 cholecalciferol (vitamin D3) 50 mcg (2,000 unit) tablet 2,000 unit PO DAILY 09/30/19 clobetasol 0.05 % topical ointment 1 applic TOPICAL DAILY PRN 09/30/19 glucosamine 750 [id number] no.1 625 mg-C 30 [id number] tablet 1 tab PO DAILY tab 09/30/19 nitroglycerin 0.4 mg sublingual tablet 0.4 mg SUBLINGUAL Q5-15M PRN 09/30/19 valacyclovir 500 mg tablet 500 mg PO DAILY 09/30/19 gabapentin 400 mg capsule 400 mg PO DAILY 10/02/19 carvedilol 6.25 mg tablet 6.25 mg PO BID #180 tab 03/23/20 Apixaban [Eliquis] 5 mg PO BID 05/14/20 Cyanocobalamin [Vitamin B12] 1,000 mcg PO DAILY@0800 05/14/20 Insulin Lispro [Humalog KwikPen] See Protocol SQ UD 05/14/20 Zinc 50 mg PO DAILY 05/14/20 Escitalopram Oxalate [Lexapro] 20 mg PO DAILY 08/05/20 Gabapentin [Neurontin] 1,200 mg PO QHS 08/05/20 Ascorbic Acid [Vitamin C] 1,000 mg PO DAILY #30 tablet 01/09/21 Aspirin [Aspirin EC] 81 mg PO DAILY #30 tablet. 01/09/21 Ferrous Sulfate 325 mg PO DAILY@1200 #60 tablet 01/09/21 Furosemide [Lasix] 40 mg PO DAILY #10 tablet 01/09/21 Insulin Glargine [Lantus SoloStar Pen] 30 unit SC DAILY #0 ml 01/09/21 Losartan Potassium 100 mg PO DAILY #0 01/09/21 Nystatin Powder [Mycostatin Powder] 1 applic TOPICAL BID #1 bottle 01/09/21 Oxycodone [Oxyir] 5 mg PO Q4H PRN PRN 2 Days #7 tablet 01/09/21 Pantoprazole Sodium [Protonix] 40 mg PO DAILY #30 tablet 01/09/21 Tamsulosin HCl [Flomax] 0.4 mg PO DAILY #30 capsule 01/09/21 hydrALAZINE [Apresoline] 50 mg PO BID #60 tablet 01/09/21 The following prescriptions were given: hydrALAZINE [Apresoline] 50 mg PO BID #60 tablet Transmission Status: Pending to [facility] Aspirin [Aspirin EC] 81 mg PO DAILY #30 tablet. Transmission Status: Pending to [facility] Ferrous Sulfate 325 mg PO DAILY@1200 #60 tablet Transmission Status: Pending to [facility] Tamsulosin HCl [Flomax] 0.4 mg PO DAILY #30 capsule Transmission Status: Pending to [facility] Furosemide [Lasix] 40 mg PO DAILY #10 tablet Transmission Status: Pending to [facility] Nystatin Powder [Mycostatin Powder] 1 applic TOPICAL BID #1 bottle Transmission Status: Pending to [facility] Oxycodone [Oxyir] 5 mg PO Q4H PRN PRN 2 Days #7 tablet PRN Reason: Pain Score 6-10 Transmission Status: Sent to [facility] Pantoprazole Sodium [Protonix] 40 mg PO DAILY #30 tablet Transmission Status: Pending to [facility] Ascorbic Acid [Vitamin C] 1,000 mg PO DAILY #30 tablet Transmission Status: Pending to [facility] Primary Care Physician: Pili Crespo MD [Primary Care Provider] - Please follow up with your Primary Care Physician in: in 2-3 weeks Test Results: Test results from this visit will be discussed in further detail at your follow- up appointment, if applicable. Please Follow Up With: Yusra Carrillo MD When: in 1-2 weeks Please Follow Up With: Aldo Maria MD When: in 2 weeks
--- NOTE | 2021-01-09 10:06 | DS.PCM_ITS ---
Discharge Date and Diagnosis - Problem List Patient Problems: Active and Suspected Problems (Last Reviewed 01/03/21 @ 18:[address] Yusra Carrillo MD) Calculus of proximal right ureter (Acute) Hydronephrosis, right (Acute) Pyelonephritis of right kidney (Acute) Complicated pyelonephritis CHAZ (acute kidney injury) (Acute) Date of Admission: 01/03/21 Date of Discharge: 01/09/21 - Primary Discharge Diagnosis Acute Problems: Active Problems (Last Reviewed 01/03/21 @ 18:[address] Yusra Carrillo MD) Calculus of proximal right ureter (Acute) Hydronephrosis, right (Acute) Pyelonephritis of right kidney (Acute) Complicated pyelonephritis CHAZ (acute kidney injury) (Acute) - Secondary Discharge Diagnosis Chronic Problems: Chronic Problems (Last Reviewed 01/03/21 @ 18:[address] 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) JOSE on CPAP (Chronic) Diabetic neuropathy (Chronic) Nonhealing surgical wound (Chronic) Diabetic foot ulcer (Chronic) Diabetic ulcer of foot with fat layer exposed (Chronic) PAD (peripheral artery disease) (Chronic) S/P bypass graft of extremity (Chronic) Obstructive sleep apnea (Chronic) Uses CPAP Constitutional obesity (Chronic) History of stroke (Chronic 2004) Left hemispheric 2004 Abnormal EKG (Chronic) Proliferative diabetic retinopathy associated with type 2 diabetes mellitus (Chronic) Gastroparesis (Chronic) GERD (gastroesophageal reflux disease) (Chronic) Peripheral vascular disease (Chronic) Hyperlipidemia (Chronic) Essential hypertension (Chronic) 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 CT abdomen consistent with right sided complicated pyelonephritis and right hydroureteronephrosis 1. Sepsis due to right-sided complicated pyelonephritis/upper UTI and hydroureteronephrosis from acute obstructing 6 mm right proximal ureteric stone: Patient was initially admitted in PCU but transferred to ICU when she got hypoxic in PACU room.. Patient lactic acid normal. Dr. Carrillo was consulted. Initially started on IV ceftriaxone but changed to Unasyn today. On IV fluid for renal perfusion. First urine culture shows Enterococcus faecalis [id number] colonies was thought low because of right ureteric obstruction therefore repeat urine culture obtained but did show no growth. Patient had antibiotic initially ceftriaxone which changed to Unasyn after seeing Enterococcus. ID changed to vancomycin and then subsequently again to Unasyn. I talked to ID Dr. Gallegos and he said patient does not need any antibiotic further. 2. Acute anemia due to blood loss, hematuria after stent placement: Hemoglobin dropped from 11.5-8.1. 200 mg IV iron sucrose given. Plavix discontinued. Eliquis already discontinued yesterday. Continue baby aspirin for now. Urine is almost clear. Subsequently patient had hematuria after the procedure, right ureteric stent and required iron infusion and 1 unit of PRBC transfusion. After that hemoglobin remained stable. Her anticoagulant regimen aspirin, Plavix and Eliquis were discontinued and then Eliquis resumed on 01/08 and she tolerated well without hematuria. Discharged on full dose of Eliquis 5 mg twice daily and advised to add baby aspirin on 01/01:14 days if there is no further hematuria. 3. Hypertensive urgency: Patient has history of peripheral arterial disease, history of stroke: Last blood pressure 122/75. Monitor blood pressure and titrate antihypertensive medications accordingly. Blood pressure is controlled. 12 Lead EKG showed sinus rhythm at 85 bpm with first-degree AV block with old anterior infarct. QTC 464 ms. 4. Acute kidney injury probably from prerenal/sepsis/ATN/CIARAN on CKD stage IIIb : UA shows proteinuria. BUN/creatinine 39/1.58 elevated from the baseline 38/1.4. IV fluid for hydration. Monitor kidney function and electrolytes. Avoid nephrotoxic medications. Patient had mild hyperkalemia for which Kayexalate 30 g was given. Patient might have CHAZ from ATN, CIARAN/sepsis and oil producer was consulted. Patient had Ringer lactate and half-normal saline boluses. After that, started on IV Lasix by oil producer. Discharged on 10 days more of Lasix with instruction to follow-up [place] oil producer in about 2 weeks to repeat outpatient CBC and BMP. Triple-lumen Howard catheter removed 5. 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 Patient on aspirin 325 mg daily, Plavix, atorvastatin and carvedilol. Hold losartan as patient has CHAZ. Anticoagulants, aspirin, Plavix and Eliquis were hold due to hematuria and subsequently Eliquis resumed as mentioned above 6. Diabetes mellitus type 1 complicated with diabetic nephropathy, neuropathy and retinopathy: Patient also has history of obstructive sleep apnea, dyslipidemia. History of mild coronary artery disease but never had heart cath. Last echo in October 2019 shows EF 65% with stage I diastolic dysfunction. Dobutamine stress echo negative for ischemia by EKG and echo criteria. On Lantus and short-acting insulin at home. Dose decreased according to the serum glucose in BMP. On gabapentin dosage discharge as per kidney function. Glucose is controlled. 7. Multiple comorbidities include anemia of chronic disease. VTE prophylaxis: Patient on Eliquis 5 mg twice daily at home. Hold it for cystoscopy and imaging surgery but can resume after procedure. Bilateral SCDs. Discharge medication reconciliation done. Discharge follow-up instructions completed. Discharge process discussed with the patient and all questions were answered to patient's satisfaction. Total time spent, exact 35 minutes on discharge meds reconciliation, exa mination, discussion about anticoagulant resumption, no further requirement of antibiotic, coordination of care with nurses and ancillary staff, review of imaging and blood test and discussion with the patient on follow-up instructions Living will/advanced directive/end of life care: Patient does not have living will or advanced directive. Her is power of litigation attorney associate for health. After discussion of benefits/risks procedures involved with full code, DNR CC arrest and DNR CC, the patient opted for full code but there is no improvement in 48 to 72 hours, did not wanted to be vegetable state and wanted withdrawal of life support measures. Initially, patient does want artificial life support including intubation, tube feed, ventilator and/chest compression, central venous catheter, vasopressor and DC shock if needed Patient Problems: Active and Suspected Problems (Last Reviewed 01/03/21 @ 18:[address] Yusra Carrillo MD) Calculus of proximal right ureter (Acute) Hydronephrosis, right (Acute) Pyelonephritis of right kidney (Acute) Complicated pyelonephritis CHAZ (acute kidney injury) (Acute) Objective: Hematuria has resolved. Urine on the catheter has dark sediment, but no blood/hematuria. H&H is stable. Physical exam: General: Alert, Oriented x3, Cooperative HEENT: Atraumatic, PERRLA, EOMI, Normocephalic Oral: No Gingival or Mucosal Lesions/ Ulcerations Neck: Supple, No JVD, Negative Carotid Bruits Lungs: Air entry diminished in bilateral lung bases. No crepitation/rhonchi Cardiovascular: Regular rate, Regular Rhythm, Normal S1, Normal S2, No murmurs Abdomen: Bowel Sounds Present, Soft, Non Tender, Non-Distended : Howard catheter with thick sediment but no hematuria. Howard catheter removed Extremities: Edema over upper and lower extremity improved., Capillary Refill Less than 3 Seconds Skin: No rashes, No breakdown Musculoskeletal: No Tenderness to Palpation of Joints or Extremities Neurological: Cranial nerves II-XII grossly intact, Deep Tendon Reflexes 2+/4 and Symmetrical, Neuro grossly intact Psych/Mental Status: Normal Affect, Appropriate. - Physical Exam Vitals/I&O's: Vital Signs Temp Pulse Resp BP Pulse Ox 97.2 F L 75 18 140/49 H 92 01/09/21 10:02 01/09/21 10:02 01/09/21 10:02 01/09/21 10:02 01/09/21 10:02 Oxygen Flow Rate (L/min) 3 Oxygen Delivery Method Room Air Weight: 208 lb 1.862 oz Body Mass Index (BMI) 35.2 Intake and Output for Last 24 Hours 01/07/21 01/08/21 01/09/21 23:59 23:59 23:59 Intake Total 2166.5 / 2266.5 1024 / 1524 1200 / 1200 Output Total 1200 / 1450 1225 / 1525 550 / 550 Balance 966.5 / 816.5 -201 / -1 650 / 650 Microbiology Past 72 Hours 01/03/21 09:44 Urine, Clean Catch Urine Culture - Final Enterococcus faecalis Yeast, not Sury albicans 01/03/21 16:09 Blood Culture (Wb) - Anticubital Right Blood Culture - Final No growth in 5 days. 01/03/21 15:13 Blood Culture (Wb) - Anticubital Right Blood Culture - Final No growth in 5 days. 01/04/21 13:40 Urine Catheter - Howard Urine Culture - Final Culture exhibits no growth. Laboratory Results 01/08/21 09:11: Sodium 136, Potassium 3.8, Chloride 108 H, Carbon Dioxide 22.0, Anion Gap 6, BUN 48 H, Creatinine 1.93 H, Estim Creat Clear Calc 23.60, Est GFR (MDRD) Af Amer 34 L, Est GFR (MDRD) Non-Af 28 L, BUN/Creatinine Ratio 24.9 H, Glucose 132 H, Calcium 9.3, Magnesium 2.1, Total Bilirubin 0.40, AST 11 L, ALT 11 L, Alkaline Phosphatase 73, Total Protein 6.3 L, Albumin 2.5 L, Globulin 3.8, Albumin/Globulin Ratio 0.7 L 01/08/21 11:24: POC Glucose 138 H 01/08/21 15:58: POC Glucose 137 H 01/08/21 21:46: POC Glucose 120 H 01/09/21 05:57: WBC 14.7 H, RBC 2.76 L, Hgb 8.2 L, Hct 26.1 L, MCV 94.6, MCH 29.7, MCHC 31.4 L, RDW Std Deviation 50.4 H, RDW Coeff of Petar 14.6, Plt Count 218, MPV 10.5, Immature Gran % (Auto) 0.700, Neut % (Auto) 80.2 H, Lymph % (Auto) 8.2 L, [place] % (Auto) 8.7, Eos % (Auto) 2.0, Baso % (Auto) 0.2, Absolute Neuts (auto) 11.8 H, Absolute Lymphs (auto) 1.21, Nucleated RBC % 0 01/09/21 05:57: Sodium 136, Potassium 3.6, Chloride 108 H, Carbon Dioxide 20.0 L , Anion Gap 8, BUN 45 H, Creatinine 1.80 H, Estim Creat Clear Calc 25.30, Est GFR (MDRD) Af Amer 37 L, Est GFR (MDRD) Non-Af 30 L, BUN/Creatinine Ratio 25.0 H , Glucose 94, Calcium 9.3 01/09/21 06:31: POC Glucose 95 Current Medications Acetaminophen (Acetaminophen 325 Mg Tablet) 650 mg PO Q6H PRN PRN PRN Reason: Pain Score 1-10/Temp > 100.7 F Last Admin: 01/09/21 08:34 Dose: 650 mg Documented by: Albuterol Sulfate (Albuterol 2.5 Mg/3 Ml Vial.Neb.) 2.5 mg INHALATION Q2H PRN PRN PRN Reason: SOB/Wheezing Apixaban (Apixaban 5 Mg Tablet) 5 mg PO Q12 ON LICENSE OF [facility] Ascorbic Acid (Ascorbic Acid 500 Mg Tablet) 1,000 mg PO DAILY ON LICENSE OF [facility] Last Admin: 01/08/21 08:14 Dose: 1,000 mg Documented by: Atorvastatin Calcium (Atorvastatin Calcium 20 Mg Tablet) 20 mg PO QHS ON LICENSE OF [facility] Last Admin: 01/08/21 21:53 Dose: 20 mg Documented by: Carvedilol (Carvedilol 6.25 Mg Tablet) 6.25 mg PO BID ON LICENSE OF [facility] Last Admin: 01/08/21 21:52 Dose: 6.25 mg Documented by: Cyanocobalamin (Cyanocobalamin 500 Mcg Tablet) 1,000 mcg PO DAILY@0800 ON LICENSE OF [facility] Last Admin: 01/09/21 08:35 Dose: 1,000 mcg Documented by: Dextrose (Dextrose 50%-Water 25 Gm/50 Ml Disp.Syrin) 0 gm IV X1 PRN; Protocol PRN Reason: Hypoglycemia Escitalopram Oxalate (Escitalopram Oxalate 20 Mg Tablet) 20 mg PO DAILY ON LICENSE OF [facility] Last Admin: 01/08/21 08:13 Dose: 20 mg Documented by: Ferrous Sulfate (Ferrous Sulfate 325 Mg Tablet) 325 mg PO DAILY@1200 ON LICENSE OF [facility] Last Admin: 01/08/21 13:29 Dose: 325 mg Documented by: Furosemide (Furosemide 40 Mg Tablet) 40 mg PO DAILY ON LICENSE OF [facility] Gabapentin (Gabapentin 400 Mg Capsule) 400 mg PO DAILY ON LICENSE OF [facility] Last Admin: 01/08/21 08:14 Dose: 400 mg Documented by: Gabapentin (Gabapentin 400 Mg Capsule) 400 mg PO QHS ON LICENSE OF [facility] Last Admin: 01/08/21 21:54 Dose: 400 mg Documented by: Glucagon (Glucagon 1 Mg/Ml Syringe) 1 mg IM .X1 PRN PRN Reason: Hypoglycemia Hydralazine HCl (Hydralazine 20 Mg/Ml Vial) 10 mg IV Q6H PRN PRN PRN Reason: sbp>180 or dbp>120 Hydralazine HCl (Hydralazine 50 Mg Tablet) 50 mg PO TID ON LICENSE OF [facility] Last Admin: 01/09/21 06:29 Dose: 50 mg Documented by: Sodium Chloride () 250 mls @ 15 mls/hr IV .[id number] PRN PRN Reason: Saline Flush Sodium Chloride () 250 mls @ 15 mls/hr IV .[id number] PRN PRN Reason: Additional IVPB Infusion Ampicillin Sodium/Sulbactam (Sodium 3 gm/ Sodium Chloride) 112 mls @ 150 mls/hr IV Q12 ON LICENSE OF [facility] Last Infusion: 01/08/21 23:00 Dose: Infused Documented by: Insulin Glargine (Insulin Glargine 100 Units/Ml Pen) 30 units SC DAILY ON LICENSE OF [facility] Last Admin: 01/08/21 08:17 Dose: 74 u Documented by: Insulin Human Lispro (Insulin Lispro 100 Unit/Ml Insuln.Pen) 0 unit SC ACHS ON LICENSE OF [facility]; Protocol Last Admin: 01/09/21 06:35 Dose: Not Given Documented by: Morphine Sulfate (Morphine 2 Mg/Ml Syringe) 2 mg IV Q4H PRN PRN PRN Reason: Pain Score 6-10 Last Admin: 01/07/21 14:22 Dose: 2 mg Documented by: Nitroglycerin (Nitroglycerin (Inpatient Use) 0.4 Mg Tab.Subl) 0.4 mg SL Q5M PRN PRN Reason: CARDIAC/CHEST PAIN Nystatin (Nystatin Powder 15gm Bottle) 1 applic TOPICAL BID ON LICENSE OF [facility]; Protocol Last Admin: 01/08/21 21:54 Dose: 1 applic Documented by: Oxycodone HCl (Oxycodone 5 Mg Tablet) 5 mg PO Q4H PRN PRN PRN Reason: Pain Score 4-5 Last Admin: 01/08/21 14:23 Dose: 5 mg Documented by: Pantoprazole Sodium (Pantoprazole Sodium 40 Mg Tablet) 40 mg PO DAILY ON LICENSE OF [facility] Last Admin: 01/08/21 08:14 Dose: 40 mg Documented by: Prochlorperazine Edisylate (Prochlorperazine 10 Mg/2 Ml Vial) 5 mg IV Q4H PRN PRN PRN Reason: Breakthrough Nausea/Vomiting Last Admin: 01/07/21 14:20 Dose: 5 mg Documented by: Sodium Chloride (0.9% Saline Lock 10 Ml Syringe) 10 - 40 ml IV UD PRN PRN Reason: SALINE FLUSH Last Admin: 01/09/21 06:28 Dose: 10 ml Documented by: Tamsulosin HCl (Tamsulosin Hcl 0.4 Mg Capsule) 0.4 mg PO DAILY ON LICENSE OF [facility] Last Admin: 01/08/21 08:12 Dose: 0.4 mg Documented by: Discharge Activity: May Not Drive Call your doctor if you observe: Fever of 101 or Higher, Numbness or Tingling, Inability to urinate, Inability to have a bowel movement, Shortness of breath, Dizziness, Fainting spells, Swelling in the ankles, Chest pain, Prolonged hiccoughing, Increased palpitations (irregular heartbeat), Calf discomfort, Uncontrolled pain Home Medications: Medications to take at Discharge atorvastatin 20 mg tablet 20 mg PO QHS 09/30/19 biotin 5,000 mcg disintegrating tablet 5,000 mcg PO QHS 09/30/19 cholecalciferol (vitamin D3) 50 mcg (2,000 unit) tablet 2,000 unit PO DAILY 09/30/19 clobetasol 0.05 % topical ointment 1 applic TOPICAL DAILY PRN 09/30/19 glucosamine 750 [id number]-neo no.1 625 mg-C 30 dd-rhsh-bxnd tablet 1 tab PO DAILY tab 09/30/19 nitroglycerin 0.4 mg sublingual tablet 0.4 mg SUBLINGUAL Q5-15M PRN 09/30/19 valacyclovir 500 mg tablet 500 mg PO DAILY 09/30/19 gabapentin 400 mg capsule 400 mg PO DAILY 10/02/19 carvedilol 6.25 mg tablet 6.25 mg PO BID #180 tab 03/23/20 Apixaban [Eliquis] 5 mg PO BID 05/14/20 Cyanocobalamin [Vitamin B12] 1,000 mcg PO DAILY@0800 05/14/20 Insulin Lispro [Humalog KwikPen] See Protocol SQ UD 05/14/20 Zinc 50 mg PO DAILY 05/14/20 Escitalopram Oxalate [Lexapro] 20 mg PO DAILY 08/05/20 Gabapentin [Neurontin] 1,200 mg PO QHS 08/05/20 Ascorbic Acid [Vitamin C] 1,000 mg PO DAILY #30 tablet 01/09/21 Aspirin [Aspirin EC] 81 mg PO DAILY #30 tablet. 01/09/21 Ferrous Sulfate 325 mg PO DAILY@1200 #60 tablet 01/09/21 Furosemide [Lasix] 40 mg PO DAILY #10 tablet 01/09/21 Insulin Glargine [Lantus SoloStar Pen] 30 unit SC DAILY #0 ml 01/09/21 Losartan Potassium 100 mg PO DAILY #0 04/11/21 Nystatin Powder [Mycostatin Powder] 1 applic TOPICAL BID #1 bottle 01/09/21 Oxycodone [Oxyir] 5 mg PO Q4H PRN PRN 2 Days #7 tablet 01/09/21 Pantoprazole Sodium [Protonix] 40 mg PO DAILY #30 tablet 01/09/21 Tamsulosin HCl [Flomax] 0.4 mg PO DAILY #30 capsule 01/09/21 hydrALAZINE [Apresoline] 50 mg PO BID #60 tablet 01/09/21 Following Prescriptions Were Given to Patient: hydrALAZINE [Apresoline] 50 mg PO BID #60 tablet Transmission Status: Received by [facility] Aspirin [Aspirin EC] 81 mg PO DAILY #30 tablet.dr Transmission [facility] Ferrous Sulfate 325 mg PO DAILY@1200 #60 tablet Transmission Status: [facility] Tamsulosin HCl [Flomax] 0.4 mg PO DAILY #30 capsule Transmission [facility]: [facility] Furosemide [Lasix] 40 mg PO DAILY #10 tablet Transmission Status: [facility] Nystatin Powder [Mycostatin Powder] 1 applic TOPICAL BID #1 bottle Transmission Status: [facility] Oxycodone [Oxyir] 5 mg PO Q4H PRN PRN 2 Days #7 tablet PRN Reason: Pain Score 6-10 Transmission Status: [facility] Pantoprazole Sodium [Protonix] 40 mg PO DAILY #30 tablet Transmission Status: [facility] Ascorbic Acid [Vitamin C] 1,000 mg PO DAILY #30 tablet Transmission Status: [facility] Primary Care Physician: Pili Crespo MD [Primary Care Provider] - Please follow up with your Primary Care Physician in: in 2-3 weeks Please Follow Up With: Yusra Carrillo MD When: in 1-2 weeks Please Follow Up With: Aldo Maria MD When: in 2 weeks Medical Necessity - Tobacco Use Smoking Status: Never smoker Tobacco Use: Non-smoker Meaningful Use Info Meaningful Use Diagnoses (Choose all that apply): None applicable Inpatient E&M: [id number] [facility]
[2021-01-09] MEDS: Carvedilol 6.25 MG Tablet PO (10:08)
[2021-01-09] MEDS: Nystatin Powder 15gm Bottle 1 APPLIC TOPICAL (10:08)
[2021-01-09] MEDS: Tamsulosin HCl 0.4 MG Capsule PO (10:08)
[2021-01-09] MEDS: Furosemide 40 MG Tablet PO (10:08)
[2021-01-09] MEDS: Pantoprazole Sodium 40 MG Tablet PO (10:08)
[2021-01-09] MEDS: Gabapentin 400 MG Capsule PO (10:08)
[2021-01-09] MEDS: Ascorbic Acid 500 MG Tablet 1000 MG PO (10:09)
[2021-01-09] MEDS: APIXABAN 5 MG TABLET PO (10:10)
[2021-01-09] MEDS: Escitalopram Oxalate 20 MG Tablet PO (10:38)
[2021-01-09] MEDS: Ferrous Sulfate 325 MG Tablet PO (11:21)
[2021-01-09 11:40] LABS: Bedside Glucose 143 mg/dL (70-110)
--- NOTE | 2021-01-10 15:38 | CASEMGMT ---
CARMELO NUNEZ Discharge Follow-up Phone Call: LIN: Kade Strata: 3 Call Date: 01/10/21 Discharge Date: 01/09/21 Time of Call: 1540 Duration: 3 min Admitting Diagnosis: Infected right ureteric stone CARMELO NUNEZ completed follow-up phone call after recent hospitalization. Patient states she thinks she came home too soon. States she has been needing assistance with transfers and had to call rescue squad last night to get patient off [facility]. Patient states she is doing better to today. Rates her pain 2/10. Patient had no questions or concerns regarding discharge instructions. Patient was able to fill prescriptions without any issues. Patient has follow-up appt scheduled with PCP and will make appts with urologist and structural engineer. Patient had no further questions or concerns at this time.
== END 2021-01-09 12:06 | disposition home or self-care (01) | DRG 854 ==
LOC: ED 09:26 → PCU 11:55 → ICU 01-04 09:32 → PCU 01-04 17:38
PROVIDERS: Internal Medicine Infectious Disease; Nurse Practitioner Family; Urology; Admitting Provider Internal Medicine; Emergency Provider Emergency Medicine; PCP Internal Medicine; Visit Provider Internal Medicine
PROC: 0T768DZ Dilation of Right Ureter with Intraluminal Device, Via Natural or Artificial Opening Endoscopic (ICD-10-PCS; principal; 2021-01-04 08:40)
DX: A41.9 Sepsis, unspecified organism (principal); N13.6 Pyonephrosis; I69.351 Hemiplegia and hemiparesis following cerebral infarction affecting right dominant side; D62 Acute posthemorrhagic anemia; N13.8 Other obstructive and reflux uropathy; N17.9 Acute kidney failure, unspecified; B95.2 Enterococcus as the cause of diseases classified elsewhere; R09.02 Hypoxemia; T41.1X5A Adverse effect of intravenous anesthetics, initial encounter; Y92.234 Operating room of hospital as the place of occurrence of the external cause; E87.5 Hyperkalemia; I16.0 Hypertensive urgency; I12.9 Hypertensive chronic kidney disease with stage 1 through stage 4 chronic kidney disease, or unspecified chronic kidney disease; E10.22 Type 1 diabetes mellitus with diabetic chronic kidney disease; N18.32 Chronic kidney disease, stage 3b; D63.8 Anemia in other chronic diseases classified elsewhere; E10.65 Type 1 diabetes mellitus with hyperglycemia; E10.51 Type 1 diabetes mellitus with diabetic peripheral angiopathy without gangrene; E10.42 Type 1 diabetes mellitus with diabetic polyneuropathy; E10.3599 Type 1 diabetes mellitus with proliferative diabetic retinopathy without macular edema, unspecified eye; Z20.822 Contact with and (suspected) exposure to COVID-19; I25.10 Atherosclerotic heart disease of native coronary artery without angina pectoris; E78.5 Hyperlipidemia, unspecified; K21.9 Gastro-esophageal reflux disease without esophagitis; F33.41 Major depressive disorder, recurrent, in partial remission; G47.33 Obstructive sleep apnea (adult) (pediatric); E66.8 Other obesity; Z68.35 Body mass index [BMI] 35.0-35.9, adult; Z79.01 Long term (current) use of anticoagulants; Z79.4 Long term (current) use of insulin; Z79.82 Long term (current) use of aspirin; Z79.02 Long term (current) use of antithrombotics/antiplatelets; Z79.899 Other long term (current) drug therapy; I25.2 Old myocardial infarction; Z87.440 Personal history of urinary (tract) infections; Z86.31 Personal history of diabetic foot ulcer; Z89.512 Acquired absence of left leg below knee
CPT/HCPCS: 36415; 36600; 71045; 74177; 76000; 80048; 80053; 80061; 80202; 81001; 82803; 82962; 83605; 83735; 85014; 85018; 85025; 86850; 86900; 86901; 86920; 86922; 87040; 87086; 87088; 87186; 87426; 93005; 97110; 97116; 97162; 97167; 97530; 97535; 99251; 99283; J7030; J7040; J7050; J7120; P9016; Q9967; A4216; C2617; G0463; J0295; J1940; J2405; J2916

== ENCOUNTER → 2021-01-18 07:10 | Outpatient (CLI) | payer MEDICARE, SELFPAY ==
[2021-01-04 08:30] VITALS: BMI 35.2
--- NOTE | 2021-01-18 07:17 | CT_ITS ---
STUDY: CT ABDOMEN AND PELVIS WITHOUT CONTRAST REASON FOR EXAM: Female, 65 years old. URETERAL STONES/HYDRONEPHROSIS RADIATION DOSAGE (If Supplied By Facility): CTDIvol = ( 19.42 ) mGy, DLP = ( 984.85 ) mGycm TECHNIQUE: Transaxial images were obtained from the dome of the diaphragm to the symphysis pubis without oral contrast, and without intravenous contrast. Sagittal and coronal images were reconstructed. Individualized dose optimization techniques were used for this CT. COMPARISON: Comparison is made with prior study 01/03/2021. FINDINGS: Stable mild increased markings at the lung bases slightly more prominent on the left side. Small pericardial effusion. Coronary artery calcification. Normal liver. Normal gallbladder and extrahepatic biliary system. Normal spleen. Normal pancreas. Normal bilateral adrenal glands. A right-sided double-J stent catheter is in situ. There is a 3 mm calculus in the posterior calyx of the midportion of the right kidney. No significant hydronephrosis is seen. Tiny calculus in the upper pole calyx of the left kidney. Tiny calculi in the mid and lower pole calyces of the left kidney. Normal visualized stomach. Normal small intestine. Normal colon. The appendix is visualized and appears normal. There is diffuse atherosclerotic calcification of the abdominal aorta and its major visceral branches, without a demonstrated aneurysm. Normal inferior vena cava. Normal retroperitoneum. Normal urinary bladder. The distal tip of the right double-J stent catheter is seen within the right side of the bladder. Normal abdominal wall. There are diffuse degenerative changes of the visualized lumbar spine. CT/Abdomen/Pelvis without Cont IMPRESSION: Small bilateral nonobstructive intrarenal calculi. Status post placement of a right-sided double-J stent catheter. The previously seen calculus in the mid right ureter is not seen at this time. Electronically Signed: Ben Ruiz MD at 8:38 EDT , Service support ,
[2021-01-18 08:23] LABS: Absolute Lymphocyte Count 2.03 X10^3/uL (0.83-4.51); Absolute Neutrophil Count 8.9 X10^3/uL (2.0-7.7); Basophil# 0.05 X10^3/uL; Basophil% 0.4 % (0-1); Eosinophil# 0.59 X10^3/uL; Eosinophils% 4.8 % (0-5); Hematocrit 30.9 % (37-47); Hemoglobin 9.2 g/dL (12.0-15.0); Lymphocyte # 2.03 X10^3/ul (0.83-4.51); Lymphocyte % 16.3 % (19-41); Mean Corp Hgb Conc 29.8 g/dL (32-36); Mean Corpuscular Hgb 29.7 pg (27.0-32.0); Mean Corpuscular Volume 99.7 fL (81-99); Monocyte% 6.4 % (0-10); NRBC Flagged by Analyzer 0 % (0-5); Neutrophil # 8.87 X10^3/uL (2.7-7.7); Neutrophil % 71.5 % (47-70); Platelet Count 300 K/mm3 (150-450); RBC Distribution Width CV 14.1 % (11.6-14.6); White Blood Count 12.4 K/mm3 (4.4-11.0)
[2021-01-18 08:46] LABS: ALB/GLOB Ratio 0.6 RATIO (0.9-2.4); AST(SGOT) 12 U/L (15-37); Alanine Aminotransfer ALT/SGPT 18 U/L (13-56); Albumin, Serum 2.7 g/dL (3.2-5.0); Alkaline Phosphatase 82 U/L (45-117); Anion Gap 5 (5-15); BUN 26 mg/dL (7-18); Calcium,Total 9.6 mg/dL (8.5-10.1); Chloride 106 mmol/L (98-107); Creatinine, Serum 1.63 mg/dL (0.55-1.02); EST Glomerular Filtration Rate 34 mL/min (>60); Est Glom Filt Rate - Afr Amer 41 mL/min (>60); Globulin 4.2 g/dL (2.2-4.2); Glucose 115 mg/dL (74-106); Potassium 4.1 mmol/L (3.5-5.1); Protein, Total 6.9 g/dL (6.4-8.2); Sodium Level 141 mmol/L (136-145)
== END ==
PROVIDERS: PCP Internal Medicine; Referring Provider Urology; Visit Provider Urology
DX: N13.2 Hydronephrosis with renal and ureteral calculous obstruction (principal)
CPT/HCPCS: 36415; 74176; 80053; 85025

== ENCOUNTER 2021-01-25 08:58 | Day surgery (SDC) | payer MEDICARE, SELFPAY ==
[2021-01-04 08:30] VITALS: BMI 35.2
--- NOTE | 2021-01-25 | CALC_PTH ---
PATIENT: TRISTAN WHITEHEAD [place] [facility] [id number] AGE/SX: 65/F ROOM: RE01/25/[address]: Dr. Yusra Carrillo MD : 1955 BED: DIS: 01/25/2021 SPEC #: [id number] RECD: 01/25/21 13:18 STATUS: CHARLOTTE GUSMAN #: [id number] STEFANIA: 01/25/21 00:[address]: Yusra Carrillo DEPT: SURGICAL PATHOLOGY RECD BY: Diomedes Mccormick ENTERED: 01/26/21 09:30 SP TYPE: Calculi OTHR DR: Dr. Pili Crespo MD Tissues: CALCULI Procedures: Surgery Specimen Level I HEADER OPERATION: Cysto, ureteroscopy, later lithotripsy, ureteral stent change PRE-OP DIAGNOSIS: Calculus of proximal right ureter; hydronephrosis TISSUE SUBMITTED: Right ureteral calculi GROSS DIAGNOSIS Fragments of stone, clinically right ureteral calculi. SJ:ivette 01/26/21 COMMENT The calculus is submitted in its entirety for chemical stone analysis. The results from this study will be reported separately. GROSS DESCRIPTION Received without fixative labeled with the patient's name and designated right ureteral calculi. The specimen consists of three fragments of brownish-black stone measuring in aggregate 0.5 x 0.5 x 0.2 cm. The entire specimen is submitted for stone analysis. / CHIQUITA:ivette 01/26/21 CPT: 68657
[2021-01-25 09:41] LABS: Bedside Glucose 113 mg/dL (70-110)
--- NOTE | 2021-01-25 10:13 | HP.PCM_ITS ---
HPI - General General Date of Admission: 01/03/21 HPI Narrative TRISTAN WHITEHEAD, is a 65 F who presents for definitive intervention for right ureteral stone [facility] Medical History Abnormal EKG Acute pain of left shoulder Anxiety Balance problem Carpal tunnel syndrome, bilateral Constitutional obesity Dupuytren's disease of palm Essential hypertension Gastroparesis Genital herpes simplex type 1 infection GERD (gastroesophageal reflux disease) Hemiparesis affecting dominant side as late effect of stroke History of stroke (2004) Hyperlipidemia Lichen sclerosus Obstructive sleep apnea JOSE on CPAP Peripheral vascular disease Proliferative diabetic retinopathy associated with type 2 diabetes mellitus Reactive depression Recurrent major 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 Home Medications atorvastatin 20 mg tablet 20 mg PO QHS 09/30/19 [History Last Taken 01/02/21] biotin 5,000 mcg disintegrating tablet 5,000 mcg PO QHS 09/30/19 [History Last Taken 01/02/21] cholecalciferol (vitamin D3) 50 mcg (2,000 unit) tablet 2,000 unit PO DAILY 09/30/19 [History Last Taken 01/02/21] clobetasol 0.05 % topical ointment 1 applic TOPICAL DAILY PRN 09/30/19 [History Last Taken 01/02/21] glucosamine 750 ys-neodjayrda-fau no.1 625 mg-C 30 [id number]-kqqz-[id number] tablet 1 tab PO DAILY tab 09/30/19 [History Last Taken 01/02/21] nitroglycerin 0.4 mg sublingual tablet 0.4 mg SUBLINGUAL Q5-15M PRN 09/30/19 [History Last Taken Unknown] valacyclovir 500 mg tablet 500 mg PO DAILY 09/30/19 [History Last Taken 01/19] gabapentin 400 mg capsule 400 mg PO DAILY 10/02/19 [History Last Taken 08/05/20] carvedilol 6.25 mg tablet 6.25 mg PO BID #180 tab 03/23/20 [Rx Last Taken 01/02/21] apixaban 5 mg PO BID 05/14/20 [History Last Taken 01/02/21] cyanocobalamin (vitamin B-12) 1,000 mcg PO DAILY@0800 05/14/20 [History Last Taken 01/02/21] insulin lispro See Protocol SQ UD 05/14/20 [History Last Taken Unknown] zinc 50 mg PO DAILY 05/14/20 [History Last Taken 01/02/21] escitalopram oxalate 20 mg PO DAILY 08/05/20 [History Last Taken 01/02/21] gabapentin 1,200 mg PO QHS 08/05/20 [History Last Taken 01/02/21] ascorbic acid (vitamin C) 1,000 mg PO DAILY #30 tablet 01/09/21 [Rx Last Taken Unknown] aspirin 81 mg PO DAILY #30 tablet. 01/09/21 [Rx Last Taken Unknown] ferrous sulfate 325 mg PO DAILY@1200 #60 tablet 01/09/21 [Rx Last Taken Unknown] furosemide 40 mg PO DAILY #10 tablet 01/09/21 [Rx Last Taken Unknown] hydralazine 50 mg PO BID #60 tablet 01/09/21 [Rx Last Taken Unknown] insulin glargine 30 unit SC DAILY #0 ml 01/09/21 [Rx Last Taken 01/02/21] nystatin 1 applic TOPICAL BID #1 bottle 01/09/21 [Rx Last Taken Unknown] pantoprazole 40 mg PO DAILY #30 tablet 01/09/21 [Rx Last Taken Unknown] tamsulosin 0.4 mg PO DAILY #30 capsule 01/09/21 [Rx Last Taken Unknown] Allergy/AdvReac Type Severity Reaction Status Date / Time meloxicam AdvReac Intermediate GI upset Verified 01/21/21 15:41 Sulfa (Sulfonamide AdvReac Intermediate Swelling Verified 01/21/21 15:41 Antibiotics) Family History Father CAD (coronary artery disease) S/P CABG x 3 Diabetes Hypertension Myocardial infarction Mother CAD (coronary artery disease) Stented coronary artery Diabetes Myocardial infarction several Hypertension Sister Diabetes Hypertension Surgical History Amputation of left lower extremity below knee (~07/20/20) History of History of D&C Social History Smoking Status: Never smoker ROS Constitutional Constitutional: Reports systems reviewed and no addt'l complaints, except as documented Eyes Eyes: Reports systems reviewed and no addt'l complaints, except as documented ENT HEENT: Reports systems reviewed and no addt'l complaints, except as documented Cardiovascular Cardiovascular: Reports systems reviewed and no addt'l complaints, except as documented Respiratory/Chest Respiratory/Chest: Reports systems reviewed and no addt'l complaints, except as documented Gastrointestinal Gastrointestinal: Reports abdominal pain, nausea and vomiting Genitourinary Genitourinary: Reports flank pain and urinary urgency Musculoskeletal Musculoskeletal: Reports systems reviewed and no addt'l complaints, except as documented Integumentary Integumentary: Reports systems reviewed and no addt'l complaints, except as documented Neurologic Neurologic: Reports systems reviewed and no addt'l complaints, except as d ocumented Psychiatric Psychiatric: Reports systems reviewed and no addt'l complaints, except as documented Allergic/Immunologic Allergic/Immunologic: Reports systems reviewed and no addt'l complaints, except as documented Physical Exam Const alert and oriented x3 General Appearance: cooperative and comfortable Orientation / Consciousness: awake, oriented to person, oriented to place and oriented to time HEENT normocephalic, head/scalp atraumatic and hearing grossly normal bilaterally Head and Scalp: normocephalic and atraumatic Eyes General Eye: normal appearance of both eyes Eyelid: eyelids normal Conjunctiva: conjunctiva normal Neck General: normal visual inspection Resp normal respiratory effort and normal air movement Effort and Inspection: able to speak in complete sentences and symmetric chest movement Cardio regular rate and regular rhythm GI soft to palpation, non-tender and non-distended Palpation: soft Rectal Exam: deferred Narrative: right CVA tenderness Skin no rashes or lesions noted General Skin Exam: no breakdown Hair: normal Nails: normal Neuro oriented x3 and CN's II-XII intact bilaterally Sensorium / Orientation: awake, alert, oriented to person and oriented to place Psych mental status grossly normal Lab / Micro Data Labs: Laboratory Results - last 24 hr 01/25/21 09:35 POC Glucose 113 H Micro: Microbiology 01/24/21 10:05 SARS-CoV-2 Antigen (Rapid) - Final Interface Orders Assessment & Plan Assessment/Plan (1) Calculus of proximal right ureter: Status: Acute Code(s): N20.1 - Calculus of ureter Plan: plan for cystoscopy, ureteroscopy and laser lithotripy with stent change on the right side. informed consent obtained. (2) Hydronephrosis, right: Status: Acute Code(s): N13.30 - Unspecified hydronephrosis Procedure Criteria Procedure Type: Elective COVID Risk Discussion: The surgeon/proceduralist and patient have discussed in detail the risk of exposure to and/or potential harm posed by the COVID-19 virus with having a surgery/procedure at this time versus the risk of delaying the surgery/procedure. It is not possible to know either the risk of delaying the surgery or procedure or chance of getting an infection with perfect accuracy, but a joint decision was made between the patient and the surgeon/proceduralist to proceed at this time with the scheduled surgery/procedure as indicated on the consent form.
[2021-01-25] MEDS: Cefazolin 2 GM in 0.9% Normal Saline 100 ML IV (10:22)
--- NOTE | 2021-01-25 11:16 | PCM.OPRPT ---
Problems Associated Problem List Diagnoses (1) Calculus of proximal right ureter: (2) Hydronephrosis, right: Report of Operation Date of Procedure: 01/25/21 Pre-Operative Diagnosis: Right ureteral calculus, hydronephrosis Post-Operative Diagnosis: Same Surgery/Procedure Performed:: Cystoscopy, left retrograde pyelogram, left ureteroscopy, holmium laser lithotripsy and left ureteral stent change Type of Anesthesia: General Specimen's removed: Ureteral stones Description of Procedure: The patient is a 65-year-old female who previously underwent a cystoscopy with right ureteral stent insertion for a right ureteral stone with obstruction and infection. She now presents for definitive management of her stone. Her preoperative culture was negative. Informed consent was obtained. The patient was taken to the operating room and placed on the operating room table. Anesthesia monitored the head, neck, airway, IV access and vital signs throughout the case. Once anesthesia was appropriately ministered the patient was placed into dorsal lithotomy position was prepped and draped in usual sterile fashion. A cystoscope was inserted through the urethra under direct visualization into the urinary bladder. The right ureteral stent was observed and pulled to the urethral meatus. A 0.035 Glidewire was inserted through the stent into the renal pelvis without difficulty. This stent was then removed. A retrograde pyelogram was then performed under fluoroscopic visualization using a Pollack catheter. There is a question of a proximal stone identified. A second 0.035 Glidewire was passed into the ureteral orifice with access to the renal pelvis as well. The flexible ureteroscope was inserted over the wire into the ureter without difficulty. The stone was identified in the proximal ureter. It was lasered with the holmium laser fiber into small fragments which then passed into the urinary bladder. Ureteroscopy revealed no further ureteral calculi. At this time the safety wire was used along with the cystoscope to place a new 6 x 24 JJ stent. Good positioning was achieved in the renal pelvis as well as the urinary bladder is visualized on fluoroscopy and directly. Patient's bladder was then emptied and the case was terminated. The cystoscope was removed. The patient was awakened and taken to the recovery room in good condition. There were no complications during this procedure. Grafts/Implants Used: 6 x 24 JJ stent Complications None Admit VTE Documentation VTE Present on Admission: Yes VTE Mechan Device Prophylaxis: SCD's VTE Pharm Prophylaxis ordered?: No Reason prophylaxis not ordered:: Treatment Not Indicated
[2021-01-25 11:18] VITALS: BP 142/66; BP 153/67; PULSE 80; RESP 14; TEMP 36.1; O2SAT 87
--- NOTE | 2021-01-25 11:21 | PCM.DC ---
Discharge Instructions Outpatient Procedure Reason For Visit: RT CYSTO URETEROSCOPY RETRO LASER STENT CHANGE Diet Discharge Diet: 1999 Calorie Control Diet Activity Discharge Activity: Return to Normal Activity and May not drive while taking narcotic pain medications. May resume sexual activity in: No Restrictions Dressing / Incision Call your doctor if you observe: Fever of 101 or Higher, Inability to urinate, Inability to have a bowel movement, Calf discomfort and Uncontrolled pain Follow Up Care Please Follow Up With: Yusra Carrillo MD When: Call office for appointment to be seen in 2 weeks for stent removal Test Results: Test results from this visit will be discussed in further detail at your follow-up appointment, if applicable. Discharge Plan Admission Attending Provider: Yusra Carrillo Primary Care Provider: Pili Crespo Discharge Orders/Prescriptions Prescriptions: New ciprofloxacin HCl [Cipro] 250 mg tablet 250 mg PO BID 5 Days Qty: 10 RF: 0 oxycodone-acetaminophen [Percocet] 5-325 mg tablet 2 tab PO Q8H PRN (Reason: pain) 3 Days Qty: 10 RF: 0 Continued valacyclovir [Valtrex] 500 mg tablet 500 mg PO DAILY RF: 0 nitroglycerin 0.4 mg tablet, sublingual 0.4 mg SUBLINGUAL Q5-15M PRN (Reason: CHEST PAIN) RF: 0 atorvastatin 20 mg tablet 20 mg PO QHS RF: 0 clobetasol 0.05 % ointment 1 applic TOPICAL DAILY PRN (Reason: vaginal bleeding) RF: 0 biotin 5,000 mcg tablet,disintegrating 5,000 mcg PO QHS RF: 0 [id number]-vyzq-[id number]-gianluca-bosw [Glucosamine-Chondroitin Complx] 750-625-30 mg tablet 1 tab PO DAILY RF: 0 cholecalciferol (vitamin D3) 2,000 unit tablet 2,000 unit PO DAILY RF: 0 gabapentin 400 mg capsule 400 mg PO DAILY RF: 0 cyanocobalamin (vitamin B-12) 500 MCG tablet 1,000 mcg PO DAILY@0800 RF: 0 zinc 50 MG tablet 50 mg PO DAILY RF: 0 insulin lispro 100 UNIT/ML insulin pen See Protocol unit SQ UD RF: 0 apixaban 5 MG tablet 5 mg PO BID RF: 0 gabapentin 400 MG capsule 1,200 mg PO QHS RF: 0 escitalopram oxalate 20 MG tablet 20 mg PO DAILY RF: 0 furosemide 40 MG tablet 40 mg PO DAILY Qty: 10 RF: 0 tamsulosin 0.4 MG capsule 0.4 mg PO DAILY Qty: 30 RF: 0 pantoprazole 40 MG tablet 40 mg PO DAILY Qty: 30 RF: 0 ferrous sulfate 325 MG tablet 325 mg PO DAILY@1200 Qty: 60 RF: 0 hydralazine 50 MG tablet 50 mg PO BID Qty: 60 RF: 0 nystatin 1 APPLIC bottle 1 applic TOPICAL BID Qty: 1 RF: 0 ascorbic acid (vitamin C) 1,000 MG tablet 1,000 mg PO DAILY Qty: 30 RF: 0 insulin glargine 100 unit/mL (3 mL) insulin pen 30 unit SC DAILY Qty: 0 RF: 0 aspirin 81 MG tablet,delayed release (DR/EC) 81 mg PO DAILY Qty: 30 RF: 0 carvedilol 6.25 mg tablet 6.25 mg PO BID Qty: 180 RF: 3 Referrals: Pili Crespo MD [Primary Care Provider] - Disposition Patient Disposition: Home, self care
[2021-01-25 11:30] VITALS: BP 130/60; BP 153/67; PULSE 78; RESP 16; O2SAT 92
[2021-01-25 11:45] VITALS: BP 132/61; BP 153/67; PULSE 79; RESP 16; TEMP 36.2; O2SAT 95
[2021-01-25 12:45] VITALS: BP 127/55; BP 153/67; PULSE 81; RESP 16; TEMP 36.1; O2SAT 92
[2021-01-25 14:30] VITALS: BP 151/70; BP 153/67; PULSE 63; RESP 16; TEMP 36.2; O2SAT 99
[2021-02-03 11:25] LABS: Source RIGHT URETER
[2021-02-03 11:34] LABS: Ca Oxalate, Monohydrate 80
[2021-02-03 11:36] LABS: Ca Oxalate, Dihydrate 20
== END 2021-01-25 15:05 | disposition home or self-care (01) ==
LOC: SDC 08:59 → AC 10:16
PROVIDERS: PCP Internal Medicine; Referring Provider Urology; Visit Provider Urology
PROC: 0TJ98ZZ Inspection of Ureter, Via Natural or Artificial Opening Endoscopic (ICD-10-PCS; CPT 52352; principal; 2021-01-25 10:25)
DX: N13.2 Hydronephrosis with renal and ureteral calculous obstruction (principal); Z20.822 Contact with and (suspected) exposure to COVID-19; I12.9 Hypertensive chronic kidney disease with stage 1 through stage 4 chronic kidney disease, or unspecified chronic kidney disease; E11.22 Type 2 diabetes mellitus with diabetic chronic kidney disease; N18.30 Chronic kidney disease, stage 3 unspecified; I69.351 Hemiplegia and hemiparesis following cerebral infarction affecting right dominant side; I69.319 Unspecified symptoms and signs involving cognitive functions following cerebral infarction; E11.51 Type 2 diabetes mellitus with diabetic peripheral angiopathy without gangrene; E11.65 Type 2 diabetes mellitus with hyperglycemia; E11.40 Type 2 diabetes mellitus with diabetic neuropathy, unspecified; E78.5 Hyperlipidemia, unspecified; G47.33 Obstructive sleep apnea (adult) (pediatric); K21.9 Gastro-esophageal reflux disease without esophagitis; F33.41 Major depressive disorder, recurrent, in partial remission; F41.9 Anxiety disorder, unspecified; Z78.0 Asymptomatic menopausal state; Z79.4 Long term (current) use of insulin; Z79.01 Long term (current) use of anticoagulants; Z79.82 Long term (current) use of aspirin; Z79.899 Other long term (current) drug therapy
CPT/HCPCS: 00918; 52356; 76000; 82360; 82962; 87426; 88300; C9803; J7120; C2617; J2405

== ENCOUNTER → 2024-07-28 | Outpatient (CLI) | payer MEDICARE, SELFPAY | END | disposition home or self-care (01) | LOC: LAB 12:26 | PROVIDERS: PCP Internal Medicine; Referring Provider Internal Medicine Nephrology; Visit Provider Internal Medicine Nephrology | DX: N18.32 Chronic kidney disease, stage 3b (principal) | CPT/HCPCS: 82043; 82570 ==

== ENCOUNTER → 2024-11-12 | Outpatient (CLI) | payer MEDICARE, SELFPAY ==
[2024-11-12 12:14] LABS: Albumin, Serum 3.1 g/dL (3.2-5.0); BUN 38 mg/dL (7-18); Calcium,Total 9.9 mg/dL (8.5-10.1); Chloride 110 mmol/L (98-107); Creatinine, Serum 1.46 mg/dL (0.55-1.02); EST Glomerular Filtration Rate 38 mL/min (>60); Est Glom Filt Rate - Afr Amer 46 mL/min (>60); Glucose 120 mg/dL (74-106); Phosphorus 2.4 mg/dL (2.5-4.9); Potassium 4.5 mmol/L (3.5-5.1); Sodium Level 142 mmol/L (136-145)
[2024-11-12 12:15] LABS: PTHIN 286.9 pg/mL (18.4-80.1)
[2024-11-12 12:19] LABS: Vitamin D,25 Hydroxy 35.4 ng/mL
== END | disposition home or self-care (01) ==
LOC: LAB 10:59
PROVIDERS: PCP Internal Medicine; Referring Provider Internal Medicine Nephrology; Visit Provider Internal Medicine Nephrology
DX: N18.32 Chronic kidney disease, stage 3b (principal); E83.52 Hypercalcemia
CPT/HCPCS: 36415; 80069; 82306; 83970

== ENCOUNTER 2024-12-21 14:02 | Emergency (ER) | payer MEDICARE, SELFPAY ==
[2024-12-21 14:03] VITALS: BP 167/78; PULSE 95; RESP 16; TEMP 37.4; O2SAT 95; BMI 32.1
--- NOTE | 2024-12-21 14:22 | EX.ED.DYSGE1 ---
HPI <MADELYN Reyes - Last Filed: 12/21/24 18:11> History of Present Illness Chief Complaint: Nausea/Vomiting Narrative Narrative: Patient presenting today due to nausea and vomiting she has had intermittently over the past 2 weeks. She does have a history of gastroparesis, CKD, HTN, HLD, GERD, and T2DM. She has seen gastroenterology in the past but does not currently follow with them. She has been taking Zofran with minimal relief of her symptoms. She also reports a cough over the last few days, her is currently sick with flulike symptoms. She reports that she has also had a mild cough. She denies fevers, chills, abdominal pain, previous abdominal surgeries, hematemesis, blood in the stool, diarrhea, and urinary symptoms. [facility] <MADELYN Reyes - Last Filed: 12/21/24 18:11> [facility] Medical History JOSE on CPAP Obstructive sleep apnea Constitutional obesity History of stroke (2004) Abnormal EKG Anxiety Recurrent major depression in partial remission Reactive depression Lichen sclerosus Genital herpes simplex type 1 infection Dupuytren's disease of palm Proliferative diabetic retinopathy associated with type 2 diabetes mellitus Gastroparesis GERD (gastroesophageal reflux disease) Peripheral vascular disease Hyperlipidemia Essential hypertension Acute pain of left shoulder Carpal tunnel syndrome, bilateral Uncontrolled type 2 diabetes with neuropathy Balance problem Hemiparesis affecting dominant side as late effect of stroke Home Medications ?Medication ?Instructions ?Recorded ?Last Taken ?Type atorvastatin 20 mg tablet 20 mg PO QHS cholesterol 09/30/19 01/02/21 History biotin 5,000 mcg disintegrating 5,000 mcg PO QHS dry skin 09/30/19 01/02/21 History tablet cholecalciferol (vitamin D3) 50 2,000 unit PO DAILY supplement 09/30/19 01/02/21 History mcg (2,000 unit) tablet clobetasol 0.05 % topical ointment 1 applic topical DAILY PRN vaginal 09/30/19 01/02/21 History bleeding glucosamine 750 [id number] 1 tab PO DAILY joint pain 09/30/19 01/02/21 History no.1 625 mg-C 30 [id number] tablet (Glucosamine-Chondroitin Complex) nitroglycerin 0.4 mg sublingual 0.4 mg sublingual Q5-15M PRN CHEST 09/30/19 Unknown History tablet PAIN valacyclovir 500 mg tablet 500 mg PO DAILY herpes simplex 1 09/30/19 01/02/21 History (Valtrex) gabapentin 400 mg capsule 400 mg PO DAILY neuropathy 10/02/19 08/05/20 History cyanocobalamin (vitamin B-12) 500 1,000 mcg PO DAILY@0800 supplement 05/14/20 01/02/21 History mcg tablet insulin lispro 100 unit/mL See Protocol SQ UD 05/14/20 Unknown History subcutaneous pen zinc 50 mg tablet 50 mg PO DAILY supplement 05/14/20 01/02/21 History escitalopram oxalate 20 mg tablet 20 mg PO DAILY mood stabilizer 08/05/20 01/02/21 History gabapentin 400 mg capsule 1,200 mg PO QHS neuropathy 08/05/20 01/02/21 History ascorbic acid (vitamin C) 1,000 mg 1,000 mg PO DAILY supplement #30 01/09/21 Unknown Rx tablet tabs aspirin 81 mg tablet,delayed 81 mg PO DAILY ##30 01/09/21 Unknown Rx release ferrous sulfate 325 mg (65 mg 325 mg PO DAILY@1200 #60 tabs 01/09/21 Unknown Rx iron) tablet furosemide 40 mg tablet 40 mg PO DAILY #10 tabs 01/09/21 Unknown Rx hydralazine 50 mg tablet 50 mg PO BID #60 tabs 01/09/21 Unknown Rx insulin glargine 100 unit/mL (3 30 unit (0.3 mL) subcut DAILY 01/09/21 01/02/21 Rx mL) subcutaneous pen insulin #0 mL nystatin 100,000 unit/gram topical 1 applic topical BID #1 BOTTLE 01/09/21 Unknown Rx powder pantoprazole 40 mg tablet,delayed 40 mg PO DAILY #30 tabs 01/09/21 Unknown Rx release tamsulosin 0.4 mg capsule 0.4 mg PO DAILY #30 CAPSULES 01/09/21 Unknown Rx ciprofloxacin HCl 250 mg tablet 250 mg PO BID 5 days #10 tabs 01/25/21 Unknown Rx (Cipro) oxycodone-acetaminophen 5 mg-325 2 tab PO Q8H PRN pain 3 days #10 01/25/21 Unknown Rx mg tablet (Percocet) tabs cetirizine 10 mg capsule (All Day 10 mg PO DAILY PRN 02/10/21 Unknown History Allergy (cetirizine)) carvedilol 6.25 mg tablet 6.25 mg PO BID #180 tabs 02/25/21 Unknown Rx apixaban 5 mg tablet 5 mg PO BID blood thinner #180 tabs 05/30/21 Unknown Rx metoclopramide HCl 10 mg tablet 10 mg PO Q6H PRN nausea and 12/21/24 Unknown Rx (Reglan) vomiting 5 days #20 tabs Allergy/AdvReac Type Severity Reaction Status Date / Time meloxicam AdvReac Intermediate GI upset Verified 12/21/24 14:03 Sulfa (Sulfonamide AdvReac Intermediate Swelling Verified 12/21/24 14:03 Antibiotics) Family History Father CAD (coronary artery disease) S/P CABG x 3 Diabetes Hypertension Myocardial infarction Mother CAD (coronary artery disease) Stented coronary artery Diabetes Myocardial infarction several Hypertension Sister Diabetes Hypertension Surgical History Amputation of left lower extremity below knee (~07/20/20) History of D&C History of Social History Smoking Status: Never smoker ROS <MADELYN Reyes - Last Filed: 12/21/24 18:11> ROS ED Constitutional Constitutional ED: Denies chills or fever(s) Cardiovascular Cardiovascular: Denies chest pain Respiratory/Chest Respiratory/Chest: Reports cough; Denies dyspnea Gastrointestinal Gastrointestinal: Reports nausea and vomiting; Denies abdominal pain or diarrhea Genitourinary Genitourinary ED: Denies dysuria, hematuria or urinary urgency Musculoskeletal Musculoskeletal: Denies arthralgias or myalgias Integumentary Denies rash Neurologic Neurologic: Denies weakness EXAM <MADELYN Reyes - Last Filed: 12/21/24 18:11> Physical Exam Const Vital Signs: 12/21/24 14:03 12/21/24 15:54 Temperature 99.3 F H 98.5 F Temperature Source Oral Pulse Rate 95 87 Respiratory Rate 16 16 Blood Pressure 167/78 H 147/65 H Blood Pressure Mean 107 92 Pulse Ox 95 96 Oxygen Delivery Method Room Air Positive well nourished, well developed and no apparent distress General Appearance ED: well developed HEENT Reports normocephalic, head/scalp atraumatic and dry mucous membranes Mouth ED: Yes dry mucous membranes Mouth: dry mucous membranes Eyes PERRL and EOMs intact bilaterally Neck full ROM and supple Chest Wall inspection of chest normal Resp normal respiratory effort and clear to auscultation bilaterally Cardio regular rate and regular rhythm GI soft to palpation, non-distended and no masses GI Narrative: Minimal generalized tenderness to palpation, no rigidity or guarding. Back/Spine normal ROM and normal to inspection Extremity normal to inspection and full ROM Neuro oriented x3, CN's II-XII intact bilaterally, moves all extremities, no focal motor deficits and no sensory deficits noted Sensorium / Orientation: awake and alert Psych mental status grossly normal and thought process normal Skin no rashes or lesions noted and no wounds <Dr. Cristopher Aparicio MD - Last Filed: 12/21/24 18:14> Physical Exam Const Vital Signs: 12/21/24 14:03 12/21/24 15:54 Temperature 99.3 F H 98.5 F Temperature Source Oral Pulse Rate 95 87 Respiratory Rate 16 16 Blood Pressure 167/78 H 147/65 H Blood Pressure Mean 107 92 Pulse Ox 95 96 Oxygen Delivery Method Room Air MDM <MADELYN Reyes - Last Filed: 12/21/24 18:11> [facility] Narrative Medical decision making narrative: Patient presenting today due to nausea and intermittent vomiting she has had over the past 2 weeks or so. She reports that she did have some vomiting at the beginning of her illness but now is just having dry heaves intermittently. She has had no recent vomiting. She does report decreased appetite. She does have a history of gastroparesis. She reports that this has happened in the past, she has been taking Zofran with minimal relief of her symptoms. She does appear dry, she will be given IV fluids and Reglan. She does have minimal abdominal tenderness on exam but denies having any abdominal pain. I do not feel that abdominal imaging is indicated at this time. CBC shows a hemoglobin of 9.6, this is consistent with previous labs. Her CO2 is slightly low at 18.3, creatinine 1.38 which is consistent with previous labs. No CHAZ, no electrolyte derangement. On examination she does report improvement of her symptoms, she is tolerating p.o. fluids. I do suspect that she has a viral illness given her has also been sick, COVID/influenza/RSV swab obtained and is positive for COVID-19. I will give her a prescription for Reglan. Supportive care measures were discussed, recommended she follow-up with her PCP in the next 5 to 7 days. She will be discharged home in stable condition. I have personally performed a face to face assessment of the patient and have reviewed the KIANNA Note. I performed a substantive portion of the visit including all aspects of the following. My garcia findings include: History is remarkable for not feeling well for the past 2 to 3 weeks. She has extreme nausea with poor p.o. intake. She does endorse thirst dry mouth decreased urine output. She denies vomiting. She states her is ill with viral-like symptoms. She denies headache, visual, ocular auditory symptoms. Denies cough or shortness of breath. She denies dysuria, frequency, urgency or hematuria. Exam is remarkable for no eye contact during the history and physical. Blood pressure is elevated. Temperature is 99.3. This is elevated but not a fever by definition. HEENT exam is remarkable dry mucosa. Lungs are good auscultation with symmetric breath sounds. Heart is regular. Rate is normal. There is no murmur, gallop or rub. Abdomen reveals minimal tenderness. There is no guarding or peritoneal findings. Bowel sounds are slightly diminished. She has a nonfocal neurologic exam. There are no dermatologic lesions noted. Medical Decision Making clinically patient appears deep hydrated and depressed. Appropriate blood work was obtained to assess renal function, electrolytes as well as white count differential. Other additions or changes: Patient is seen by nephrology Dr. Sharon Barnes for kidney disease due to hypertension. She also has been seen by urology for calculus of the proximal right ureter. She has history of kidney injury on multiple visits. Lab Data Attestation: I reviewed the patient's lab results. Labs: Laboratory Results - last 24 hr 12/21/24 14:07 WBC 9.7 RBC 3.42 L Hgb 9.6 L Hct 30.2 L MCV 88.3 MCH 28.1 MCHC 31.8 L RDW Std Deviation 45.8 H RDW Coeff of Petar 14.2 Plt Count 257 MPV 9.9 Immature Gran % (Auto) 0.600 Neut % (Auto) 80.9 H Lymph % (Auto) 10.0 L Kenedy % (Auto) 8.2 Eos % (Auto) 0.1 Baso % (Auto) 0.2 Absolute Neuts (auto) 7.9 H Absolute Lymphs (auto) 0.97 Nucleated RBC % 0 Sodium 135 Potassium 4.4 Chloride 102 Carbon Dioxide 18.3 L Anion Gap 15 BUN 22 H Creatinine 1.38 H Estim Creat Clear Calc 38.66 L Est GFR (MDRD) Non-Af 42 L BUN/Creatinine Ratio 15.9 Glucose 143 H Calcium 9.9 Total Bilirubin 0.35 AST 15 ALT 5 Alkaline Phosphatase 73 Total Protein 6.5 Albumin 3.4 Globulin 3.2 Albumin/Globulin Ratio 1.1 Lipase 22 <Dr. Cristopher Aparicio MD - Last Filed: 12/21/24 18:14> MDM MDM Narrative Medical decision making narrative: I have personally performed a face to face assessment of the patient and have reviewed the KIANNA Note. I performed a substantive portion of the visit including all aspects of the following. My garcia findings include: History is remarkable for not feeling well for the past 2 to 3 weeks. She has extreme nausea with poor p.o. intake. She does endorse thirst dry mouth decreased urine output. She denies vomiting. She states her is ill with viral-like symptoms. She denies headache, visual, ocular auditory symptoms. Denies cough or shortness of breath. She denies dysuria, frequency, urgency or hematuria. Exam is remarkable for no eye contact during the history and physical. Blood pressure is elevated. Temperature is 99.3. This is elevated but not a fever by definition. HEENT exam is remarkable dry mucosa. Lungs are good auscultation with symmetric breath sounds. Heart is regular. Rate is normal. There is no murmur, gallop or rub. Abdomen reveals minimal tenderness. There is no guarding or peritoneal findings. Bowel sounds are slightly diminished. She has a nonfocal neurologic exam. There are no dermatologic lesions noted. Medical Decision Making clinically patient appears deep hydrated and depressed. Appropriate blood work was obtained to assess renal function, electrolytes as well as white count differential. Other additions or changes: Patient is seen by nephrology Dr. Sharon Barnes for kidney disease due to hypertension. She also has been seen by urology for calculus of the proximal right ureter. She has history of kidney injury on multiple visits. History & Record Review Additional record(s) reviewed:: Prior outpatient record, Prior ED visit and Prior labs Lab Data Lab results narrative: CBC reveals a anemia with microcytic indices. BUN and creatinine are elevated at 22 and 1.38. CO2 is 18.3 with an anion gap of 15.Prior creatinine on November 12, 2024 was 1.46. Rapid antigen for COVID, RSV and influenza was positive for COVID. Labs: Laboratory Results - last 24 hr 12/21/24 14:07 WBC 9.7 RBC 3.42 L Hgb 9.6 L Hct 30.2 L MCV 88.3 MCH 28.1 MCHC 31.8 L RDW Std Deviation 45.8 H RDW Coeff of Petar 14.2 Plt Count 257 MPV 9.9 Immature Gran % (Auto) 0.600 Neut % (Auto) 80.9 H Lymph % (Auto) 10.0 L Kenedy % (Auto) 8.2 Eos % (Auto) 0.1 Baso % (Auto) 0.2 Absolute Neuts (auto) 7.9 H Absolute Lymphs (auto) 0.97 Nucleated RBC % 0 Sodium 135 Potassium 4.4 Chloride 102 Carbon Dioxide 18.3 L Anion Gap 15 BUN 22 H Creatinine 1.38 H Estim Creat Clear Calc 38.66 L Est GFR (MDRD) Non-Af 42 L BUN/Creatinine Ratio 15.9 Glucose 143 H Calcium 9.9 Total Bilirubin 0.35 AST 15 ALT 5 Alkaline Phosphatase 73 Total Protein 6.5 Albumin 3.4 Globulin 3.2 Albumin/Globulin Ratio 1.1 Lipase 22 Discharge Plan Triage Chief Complaint: Nausea/Vomiting ED Midlevel Provider: Sultana Leroy ED Provider: Cristopher Aparicio Dx/Rx/DC Orders Clinical Impression: COVID-19 virus infection, Uncontrolled type 2 diabetes with neuropathy, Essential hypertension, Creatinine elevation, Metabolic acidosis, Nausea, Gastroparesis Instructions: Coronavirus Disease 2019 (COVID-19): Caring for Yourself or Others, ED Vomiting (Adult) Prescriptions: New metoclopramide HCl [Reglan] 10 mg tablet 10 mg PO Q6H PRN (Reason: nausea and vomiting) 5 Days Qty: 20 0RF No Action valacyclovir [Valtrex] 500 mg tablet 500 mg PO DAILY nitroglycerin 0.4 mg tablet, sublingual 0.4 mg sublingual Q5-15M PRN (Reason: CHEST PAIN) Rx Instructions: until response; do not exceed 3 doses per episode atorvastatin 20 mg tablet 20 mg PO QHS clobetasol 0.05 % ointment 1 applic TOPICAL DAILY PRN (Reason: vaginal bleeding) Rx Instructions: perineium biotin 5,000 mcg tablet,disintegrating 5,000 mcg PO QHS [id number] [Glucosamine-Chondroitin Complx] 750-625-30 mg tablet 1 tab PO DAILY Rx Instructions: give after food/meal cholecalciferol (vitamin D3) 2,000 unit tablet 2,000 unit PO DAILY gabapentin 400 mg capsule 400 mg PO DAILY All Day Allergy (cetirizine) 10 mg capsule 10 mg PO DAILY PRN cyanocobalamin (vitamin B-12) 500 MCG tablet 1,000 mcg PO DAILY@0800 zinc 50 MG tablet 50 mg PO DAILY insulin lispro 100 UNIT/ML insulin pen See Protocol SQ UD Protocol: 6. Sliding Scale Insulin Custom Condition: 150-200 Dose/Route: 2 Condition: 201-250 Dose/Route: 4 Condition: 251-300 Dose/Route: 6 Condition: 301 Dose/Route: CALL DR Protocol Text: Custom Sliding Scale gabapentin 400 MG capsule 1,200 mg PO QHS escitalopram oxalate 20 MG tablet 20 mg PO DAILY furosemide 40 MG tablet 40 mg PO DAILY Qty: 10 0RF tamsulosin 0.4 MG capsule 0.4 mg PO DAILY Qty: 30 0RF pantoprazole 40 MG tablet 40 mg PO DAILY Qty: 30 0RF ferrous sulfate 325 MG tablet 325 mg PO DAILY@1200 Qty: 60 0RF hydralazine 50 MG tablet 50 mg PO BID Qty: 60 0RF Rx Instructions: Hold for SBP less than 120 mmHg Patient on hydralazine in place of losartan which is on hold nystatin 1 APPLIC bottle 1 applic TOPICAL BID Qty: 1 0RF Protocol: *Topical Application Instructions APPLICATION INSTRUCTIONS: apply to abd/groin area ascorbic acid (vitamin C) 1,000 MG tablet 1,000 mg PO DAILY Qty: 30 0RF insulin glargine 100 unit/mL (3 mL) insulin pen 30 unit SC DAILY Qty: 0 0RF Rx Instructions: Hold if glucose less than 130 mg/dl aspirin 81 MG tablet,delayed release (DR/EC) 81 mg PO DAILY Qty: 30 0RF Rx Instructions: Start from 01/13/2021 if no bleeding from urine ciprofloxacin HCl [Cipro] 250 mg tablet 250 mg PO BID 5 Days Qty: 10 0RF oxycodone-acetaminophen [Percocet] 5-325 mg tablet 2 tab PO Q8H PRN (Reason: pain) 3 Days Qty: 10 0RF carvedilol 6.25 mg tablet 6.25 mg PO BID Qty: 180 3RF Rx Instructions: must administer with a meal/food apixaban 5 mg tablet 5 mg PO BID Qty: 180 3RF Primary Care Provider: Pili Crespo Referrals: Pili Crespo MD [Primary Care Provider] - 3-5 Days if not improving Activity Restrictions/Additional Instructions: Follow-up with your PCP. Stay well-hydrated. Return for any worsening symptoms. Print Language: German Disposition Disposition: Home, Self Care Discharge Date/Time: 12/21/24 15:55
[2024-12-21 14:39] LABS: Absolute Lymphocyte Count 0.97 X10^3/uL (0.83-4.51); Absolute Neutrophil Count 7.9 X10^3/uL (2.0-7.7); Basophil# 0.02 X10^3/uL; Basophil% 0.2 % (0-1); Eosinophil# 0.01 X10^3/uL; Eosinophils% 0.1 % (0-5); Hematocrit 30.2 % (37-47); Hemoglobin 9.6 g/dL (12.0-15.0); Lymphocyte # 0.97 X10^3/ul (0.83-4.51); Mean Corp Hgb Conc 31.8 g/dL (32-36); Mean Corpuscular Hgb 28.1 pg (27.0-32.0); Mean Corpuscular Volume 88.3 fL (81-99); Mean Platelet Vol. 9.9 fl (6.2-12.0); Monocyte% 8.2 % (0-10); NRBC Flagged by Analyzer 0 % (0-5); Neutrophil # 7.87 X10^3/uL (2.7-7.7); Neutrophil % 80.9 % (47-70); POSITIVE MORPHOLOGY YES; Platelet Count 257 K/mm3 (150-450); RBC Distribution Width CV 14.2 % (11.6-14.6); RBC Distribution Width SD 45.8 fl (35.1-43.9); Red Blood Count 3.42 M/mm3 (4.2-5.4); White Blood Count 9.7 K/mm3 (4.4-11.0)
[2024-12-21] MEDS: 0.9% Normal Saline (1000mL) 1,000 ML 999 ML IV (14:39)
[2024-12-21] MEDS: Metoclopramide 10 MG/2 ML Vial 5 MG IV (14:39)
[2024-12-21 14:41] LABS: Differential Indicated SCAN CRITERIA MET
[2024-12-21 14:57] LABS: Lipase 22 U/L (13-75)
[2024-12-21 15:04] LABS: ALB/GLOB Ratio 1.1 RATIO (0.9-2.4); AST(SGOT) 15 U/L (<=31); Alanine Aminotransfer ALT/SGPT 5 U/L (<=34); Albumin, Serum 3.4 g/dL (3.4-4.8); Alkaline Phosphatase 73 U/L (35-104); Anion Gap 15 (5-15); BUN 22 mg/dL (4-19); BUN/Creat Ratio 15.9 RATIO (10-20); Calcium,Total 9.9 mg/dL (7.6-11.0); Carbon Dioxide 18.3 mmol/L (21.0-32.0); Chloride 102 mmol/L (98-108); Creatinine, Serum 1.38 mg/dL (0.70-1.20); EST Glomerular Filtration Rate 42 (>60); Estimated Creatinine Clearance 38.66 ml/min (50-250); Globulin 3.2 g/dL (2.2-4.2); Glucose 143 mg/dL (70-99); Potassium 4.4 mmol/L (3.3-5.1); Protein, Total 6.5 g/dL (5.9-8.4); Sodium Level 135 mmol/L (133-145); Total Bilirubin 0.35 mg/dL (0.00-1.30)
[2024-12-21 15:54] VITALS: BP 147/65; PULSE 87; RESP 16; TEMP 36.9; O2SAT 96
== END 2024-12-21 15:55 | disposition home or self-care (01) ==
PROVIDERS: Physician Assistant; Emergency Provider Emergency Medicine; PCP Internal Medicine; Visit Provider Emergency Medicine
DX: U07.1 COVID-19 (principal); E11.3599 Type 2 diabetes mellitus with proliferative diabetic retinopathy without macular edema, unspecified eye; I69.359 Hemiplegia and hemiparesis following cerebral infarction affecting unspecified side; E11.43 Type 2 diabetes mellitus with diabetic autonomic (poly)neuropathy; E11.22 Type 2 diabetes mellitus with diabetic chronic kidney disease; E11.51 Type 2 diabetes mellitus with diabetic peripheral angiopathy without gangrene; E87.20 Acidosis, unspecified; I12.9 Hypertensive chronic kidney disease with stage 1 through stage 4 chronic kidney disease, or unspecified chronic kidney disease; N18.9 Chronic kidney disease, unspecified; K31.84 Gastroparesis; R10.819 Abdominal tenderness, unspecified site; E78.5 Hyperlipidemia, unspecified; R79.89 Other specified abnormal findings of blood chemistry; G47.33 Obstructive sleep apnea (adult) (pediatric); K21.9 Gastro-esophageal reflux disease without esophagitis
CPT/HCPCS: 80053; 83690; 85025; 87631; 96361; 96374; 99285

== ENCOUNTER → 2025-02-09 | Outpatient (CLI) | payer MEDICARE, SELFPAY ==
[2025-02-09 14:58] LABS: Hematocrit 30.5 % (37-47); Hemoglobin 9.3 g/dL (12.0-15.0); Mean Corp Hgb Conc 30.5 g/dL (32-36); Mean Corpuscular Hgb 27.5 pg (27.0-32.0); Mean Corpuscular Volume 90.2 fL (81-99); Mean Platelet Vol. 9.7 fl (6.2-12.0); Platelet Count 218 K/mm3 (150-450); RBC Distribution Width CV 15.5 % (11.6-14.6); RBC Distribution Width SD 51.1 fl (35.1-43.9); Red Blood Count 3.38 M/mm3 (4.2-5.4); White Blood Count 6.6 K/mm3 (4.4-11.0)
[2025-02-09 15:41] LABS: PTHIN 208 pg/mL (11-61)
[2025-02-09 15:58] LABS: Albumin, Serum 3.9 g/dL (3.4-4.8); Anion Gap 10 (5-15); BUN 32 mg/dL (4-19); BUN/Creat Ratio 19.9 RATIO (10-20); Calcium,Total 10.4 mg/dL (7.6-11.0); Carbon Dioxide 22.5 mmol/L (21.0-32.0); Chloride 107 mmol/L (98-108); EST Glomerular Filtration Rate 35 (>60); Glucose 65 mg/dL (70-99); Phosphorus 3.6 mg/dL (2.7-4.5); Potassium 4.8 mmol/L (3.3-5.1); Sodium Level 140 mmol/L (133-145)
== END | disposition home or self-care (01) ==
PROVIDERS: PCP Internal Medicine; Referring Provider Internal Medicine Nephrology; Visit Provider Internal Medicine Nephrology
DX: N18.32 Chronic kidney disease, stage 3b (principal); E83.52 Hypercalcemia; N25.81 Secondary hyperparathyroidism of renal origin
CPT/HCPCS: 36415; 80069; 82306; 83970; 85027

== ENCOUNTER → 2025-06-13 | Outpatient (CLI) | payer MEDICARE, SELFPAY ==
--- OUTSIDE RECORDS SUMMARY | 2025-06-13 10:43 | XMS RPT_ITS | CCD ---
Author Organization [facility] Care Team Providers Care Ground Service Equipment Mechanic Name Role Phone Earl Shepherd MD Primary Care Provider [facility], Keti Unavailable Testrake, Frederic Unavailable Kishman DPM, Leti Unavailable Kishman DPM, Leti Unavailable Kishman DPM, Leti Unavailable Armond Chapa Unavailable Ibrahima Ng RN Unavailable Unavailabl e Earl Shepherd MD Primary Care Provider [facility], Keti Unavailable Testraandres, Frederic Unavailable Kishman DPM, Leti Unavailable Kishman DPM, Leti Unavailable Kishman DPM, Leti Unavailable Armond Chapa Unavailable William RHODES, Alexandre Unavailable Earl Shepherd MD Primary Care Provider [facility], Keti Unavailable Testraandres, Frederic Unavailable Kishman DPM, Leti Unavailable Kishman DPM, Leti Unavailable Kishman DPM, Leti Unavailable Armond Chapa Unavailable Ibrahima RHODES, Stan Keen Unavailable Unavailabl e William RN, Alexandre Unavailable William RN, Alexandre Unavailable Stella RN, Alexandre A Unavailable Felipe Carranza RN Unavailable Unavailable January RN, Francisca Velázquez Unavailable January RN, Francisca Velázquez Unavailable [facility], Keti Unavailable Felipe Carranza RN Unavailable Unavailable Stella RN, Alexandre A Unavailable Sammi ARCHULETA, Armond Davis Unavailable Earl Shepherd MD Primary Care Provider [facility], [place] Unavailable Moses BODY ART TECHNICIAN, Prabhakar Unavailable Unavailable Villatoro SHEAR OPERATOR AUTOMATIC.FILLING HAULER WEAVING, Nichelle Unavailable Brooke SHEAR OPERATOR AUTOMATIC.COMMUNICABLE DISEASE SPECIALIST, Rhina Unavailable PROVIDER, UNKNOWN Referring Unavailable TALAMPAS, EARL D Primary Care Unavailable ODIN DOBBINS Admitting Unavailable ODIN DOBBINS Attending Unavailable TALAMPAS, EARL D Primary Care Unavailable LETI ROGER Attending Unavailable TALAMPAS, EARL D Primary Care Unavailable LETI ROGER Attending Unavailable TALAMPAS, EARL D Primary Care Unavailable LETI ROGER Referring Unavailable TALAMPAS, EARL D Primary Care Unavailable LETI ROGER Attending Unavailable TALAMPAS, EARL D Primary Care Unavailable ODIN DOBBINS Attending Unavailable JAY JAYSHMAN, LETI Referring Unavailable TALAMPAS, EARL D Primary Care Unavailable LETI ROGER Referring Unavailable TALAMPAS, EARL D Primary Care Unavailable Brooke SHEAR OPERATOR AUTOMATIC.COMMUNICABLE DISEASE SPECIALIST, Rhina Unavailable Brooke SHEAR OPERATOR AUTOMATIC.COMMUNICABLE DISEASE SPECIALIST, Rhina Unavailable Brooke SHEAR OPERATOR AUTOMATIC.COMMUNICABLE DISEASE SPECIALIST, Rhina Unavailable Zak ARCHULETA, Dr. Earl Holguin Primary Care Provider Dr. Sharon Barnes DO Attending Provider Dr. Sharon Barnes DO Referring Provider Dr. Cristopher Aparicio MD Emergency Provider Dr. Cristopher Aparicio MD Attending Provider [phone] SHEAR OPERATOR AUTOMATIC.FILLING HAULER WEAVING, Nichelle Unavailable TALAMPAS, EARL D Primary Care Unavailable VILLATORO, NICHELLE Referring Unavailable TALAMPAS, EARL D Primary Care Unavailable VILLATORONICHELLE Attending Unavailable VILLATORO, NICHELLE Referring Unavailable TALAMPAS, EARL D Primary Care Unavailable ODIN DOBBNIS Attending Unavailable TALAMPAS, EARL D Primary Care Unavailable LETI ROGER Referring Unavailable TALAMPAS, EARL D Primary Care Unavailable TALAMPAS, EARL D Primary Care Unavailable REJI GORE Referring Unavailable TALAMPAS, EARL D Primary Care Unavailable VILLATORODIANEI Attending Unavailable TALAMPAS, EARL D Primary Care Unavailable TALAMPAS, EARL D Primary Care Unavailable TALAMPAS, EARL D Attending Unavailable TALAMPAS, EARL D Primary Care Unavailable TALAMPAS, EARL D Attending Unavailable TALAMPAS, EARL D Primary Care Unavailable TALAMPAS, EARL D Referring Unavailable TALAMPAS, EARL D Primary Care Unavailable RHINA CARRASCO Attending Unavailable TALAMPAS, EARL D Primary Care Unavailable TALAMPAS, EARL D Referring Unavailable TALAMPAS, EARL D Primary Care Unavailable TALAMPAS, EARL D Primary Care Unavailable VILLATORODIANEI Attending Unavailable TALAMPAS, EARL D Primary Care Unavailable VILLATORONICHELLE Attending Unavailable VILLATORO, NICHELLE Referring Unavailable TALAMPAS, EARL D Primary Care Unavailable TALAMPAS, EARL D Referring Unavailable TALAMPAS, EARL D Primary Care Unavailable ODIN DOBBINS Referring Unavailable TALAMPAS, EARL D Primary Care Unavailable ODIN DOBBINS Referring Unavailable TALAMPAS, EARL D Primary Care Unavailable ODIN DOBBINS Attending Unavailable TALAMPAS, EARL D Primary Care Unavailable Sharon Barnes Referring Unavailable Sharon Barnes Attending Unavailable Talampas, Earl D Primary Care Unavailable Cristopher Aparicio Attending Unavailable Talampas, Earl D Primary Care Unavailable Talampas, Earl D Primary Care Unavailable Sharon Barnes Attending Unavailable Sharon Barnes Referring Unavailable Sharon Barnse Attending Unavailable Talampas, Earl D Primary Care Unavailable Sharon Barnes Referring Unavailable Sharon Barnes Attending Unavailable Talampas, Earl D Primary Care Unavailable Allergies Allergy Classification Reported Allergen(s) Allergy Type Date of Onset Reaction(s) Facility NSAIDs (3 sources) meloxicam Drug Allergy 6 GI Upset [facility] Work Phone: Sulfonamides (antibiotic) (3 sources) Sulfonamides (Antibiotic) Drug Allergy 5 [facility] Work Phone: (20 sources) meloxicam; Translations: [MELOXICAM] Drug Allergy 6 GI Upset [facility] Work Phone: (20 sources) Sulfonamides (Antibiotic); Translations: [SULFA (SULFONAMIDE ANTIBIOTICS)] Drug Allergy 5 [facility] Work Phone: (2 sources) Sulfonamides (Antibiotic) Propensity to adverse reactions 5 [facility] (1 source) meloxicam Drug Allergy 5 [facility] (1 source) Sulfonamides (Antibiotic) Drug allergy (disorder) 5 [facility] Medications Current Medications Medication Drug Class(es) Dates Sig (Normalized) Sig (Original) acetaminophen 325 mg / oxyCODONE hydrochloride 5 mg oral tablet (2 sources) Opioid Agonist Start: 01-25-2021 take 2 tablets by mouth every eight hours as needed for pain Oxycodone-Acetam inophen (Percocet) 5-325 mg tablet Active 2 {tbl} PO Q8H as needed for pain 10 3 January 25, 2021 acyclovir 400 mg oral tablet (20 sources) Herpesvirus Nucleoside Analog DNA Polymerase Inhibitor, Herpes Simplex Virus Nucleoside Analog DNA Polymerase Inhibitor, Herpes Zoster Virus Nucleoside Analog DNA Polymerase Inhibitor Start: 01-16-2025 End: 03-30-2025 take 1 tablet by mouth twice daily acyclovir (ZOVIRAX) 400 mg tablet Indications: Genital herpes simplex type 1 infection Take 1 tablet by mouth two times a day. 60 tablet 3 03/30/2025 Active Start: 03-17-2024 End: 01-14-2025 take 1 tablet by mouth twice daily acyclovir (ZOVIRAX) 400 mg tablet Indications: Genital herpes simplex type 1 infection Take 1 tablet by mouth two times a day. 180 tablet 3 03/17/2024 01/14/2025 Discontinued [id number] 200 actuat albuterol 0.09 mg/actuat metered dose inhaler (20 sources) beta2-Adrenergic Agonist Start: 10-27-2024 take 1-2 puff(s) by inhalation four times daily as needed for wheezing albuterol HFA (PROVENTIL HFA) 90 mcg/actuation inhaler Indications: Pneumonia of left lower lobe due to infectious organism Inhale 1-2 Puffs as instructed four times a day as needed for wheezing/shortness of breath. 1 Each 10/27/2024 Active amoxicillin 875 mg / clavulanate 125 mg oral tablet (8 sources) Penicillin-class Antibacterial Start: 10-23-2024 End: 11-01-2024 take 1 tablet by mouth twice daily amoxicillin-clavulanat e potassium (AUGMENTIN) 875-125 mg per tablet Indications: Pneumonia of left lower lobe due to infectious organism Take 1 tablet by mouth two times a day for 5 days. 10 tablet 10/27/2024 11/01/2024 Active Start: 09-17-2024 End: 09-27-2024 take 1 tablet by mouth every twelve hours amoxicillin-clavulanate potassium (AUGMENTIN) 500-125 mg per tablet Take 1 tablet by mouth every 12 hours for 10 days. 20 tablet 09/17/2024 09/27/2024 Active apixaban 5 mg oral tablet (20 sources) Factor Xa Inhibitor Start: 05-14-2020 End: 10-10-2024 take 1 tablet by mouth twice daily Apixaban 5 mg tablet Active 5 mg PO TWICE A DAY May 30, 2021 3:30pm Comment on above: Take 1 tablet by maximus twice daily. Take 1 tablet by maximus th two times a day. ascorbic acid 1000 mg oral tablet (20 sources) Vitamin C Start: 05-14-2020 End: 01-09-2021 take 1 tablet by mouth once daily Ascorbic Acid (Vitamin C) 1,000 MG tablet Active 1000 mg PO DAILY January 09, 2021 10:00am take 2 tablets by mouth once annmarie ly ascorbic acid, vitamin C, (VITAMIN C) 500 mg tablet Take 1,000 mg by mouth once daily. Active Comment on above: Take 1,000 mg by maximus once daily. aspirin 81 mg delayed release oral tablet (20 sources) Platelet Aggregation Inhibitor, Nonsteroidal Anti-inflammatory Drug Start: 01-09-2021 take 1 tablet by mouth once daily aspirin, enteric coated (ASPIRIN, ENTERIC COATED) 81 mg EC tablet Indications: Hemiparesis affecting dominant side as late effect of stroke (HCC) Take 1 tablet by mouth once daily. 01/14/2021 Active Start: 09-30-2019 End: 01-09-2021 take 1 tablet by mouth once daily Aspirin 325 mg tablet Discontinued 325 mg PO DAILY September 30, 2019 1:00am January 09, 2021 9:52am Comment on above: Take 1 tablet by maximus th once daily. atorvastatin 40 mg oral tablet (20 sources) HMG-CoA Reductase Inhibitor Start: 06-19-20 End: 03-30-20 take 1 tablet by mouth once daily at bedtime for hyperlipidemia atorvastatin (LIPITOR) 40 mg tablet Take 1 tablet by mouth daily at bedtime. For cholesterol. 30 tablet 3 03/30/2025 Active Start: 05-07-2024 End: 08-11-2024 take 2 tablets by mouth once daily atorvastatin (LIPITOR) 20 mg tablet Take 2 tablets by mouth once daily. 90 tablet 3 05/07/2024 08/11/2024 Discontinued (Duplicate Entry) Start: 09-30-2019 End: 05-07-2024 take 1 tablet by mouth at bedtime Atorvastatin 20 mg tablet Active 20 mg PO AT BEDTIME September 30, 2019 1:00am Comment on above: Take 1 tablet by maximus th once daily. B complex w-C no.20/folic acid (B COMPLEX WITH C 20-FOLIC ACID ORAL) (20 sources) take 1 tablet by mouth once daily B complex w-C no.20/folic acid (B COMPLEX WITH C 20-FOLIC ACID ORAL) Take 1 tablet by mouth once daily. Suspended take 1 tablet by mouth once dale y B complex w-C no.20/folic acid (B COMPLEX WITH C 20-FOLIC ACID ORAL) Take 1 tablet by mouth once daily. Active take 1 tablet by mouth once dale y B complex w-C no.20/folic acid (B COMPLEX WITH C 20-FOLIC ACID ORAL) Take 1 tablet by mouth once daily. 0 Active Comment on above: Take 1 tablet by maximus th once daily. bacitracin zinc 0.5 unt/mg topical ointment (20 sources) Start: 2 bacitracin zinc 500 unit/gram ointment Apply to affected area twice daily. As directed for affected area till healed 28 g 10/12/2021 Active Comment on above: Apply to affected ar ea twice daily. As directed for affected area till healed biotin 5 mg disintegrating oral tablet (20 sources) Start: 9 End: 5 take 1 tablet by mouth at bedtime Biotin 5,000 mcg tablet,disintegrati ng Active 5000 ug PO AT BEDTIME September 30, 2019 1:00am Comment on above: Take 1 tablet by maximus th once daily. Blood-Glucose Meter,Continuous (DEXCOM G7 ENVELOPE SEALER) misc (20 sources) Start: 3 Blood-Glucose Meter,Continuous (DEXCOM G7 ENVELOPE SEALER) misc Indications: Type 2 diabetes mellitus with stage 3b chronic kidney disease, with long-term current use of insulin (HCC) Use to check blood sugar at least four (4) times daily. 1 Each 01/02/2023 Suspended Start: 01-02-2023 Blood-Glucose Meter,Continuous (DEXCOM G7 ENVELOPE SEALER) misc Indications: Type 2 diabetes mellitus with stage 3b chronic kidney disease, with long-term current use of insulin (HCC) Use to check blood sugar at least four (4) times daily. 1 Each 01/02/2023 Active Start: 01-02-2023 Blood-Glucose Meter,Continuous (DEXCOM G7 ENVELOPE SEALER) misc Indications: Type 2 diabetes mellitus with stage 3b chronic kidney disease, with long-term current use of insulin (HCC) Use to check blood sugar at least four (4) times daily. 1 Each 0 01/02/2023 Active Comment on above: Use to check blood s ugar at least four (4) times daily. Blood-Glucose Sensor (DEXCOM G7 SENSOR) jackson (20 sources) Start: 04-16-2025 Blood-Glucose Sensor (DEXCOM G7 SENSOR) jackson Indications: Type 2 diabetes mellitus with stage 3b chronic kidney disease, with long-term current use of insulin (HCC) Apply new sensor every ten (10) days. 9 each 3 04/16/2025 Active Start: 03-19-2024 End: 04-16-2025 Blood-Glucose Sensor (DEXCOM G7 SENSOR) jackson Indications: Type 2 diabetes mellitus with stage 3b chronic kidney disease, with long-term current use of insulin (HCC) Apply new sensor every ten (10) days. 9 Each 03/19/2024 04/16/2025 Discontinued Start: 03-19-2024 Blood-Glucose Sensor (DEXCOM G7 SENSOR) jackson Indications: Type 2 diabetes mellitus with stage 3b chronic kidney disease, with long-term current use of insulin (HCC) Apply new sensor every ten (10) days. 9 Each 03/19/2024 Suspended Start: 03-19-2024 Blood-Glucose Sensor (DEXCOM G7 SENSOR) jackson Indications: Type 2 diabetes mellitus with stage 3b chronic kidney disease, with long-term current use of insulin (HCC) Apply new sensor every ten (10) days. 9 Each 03/19/2024 Active Start: 12-12-2023 End: 03-19-2024 Blood-Glucose Sensor (DEXCOM G7 SENSOR) jackson Indications: Type 2 diabetes mellitus with stage 3b chronic kidney disease, with long-term current use of insulin (HCC) Apply new sensor every ten (10) days. 9 Each 12/12/2023 03/19/2024 Discontinued Start: 12-12-2023 Blood-Glucose Sensor (DEXCOM G7 SENSOR) jackson Indications: Type 2 diabetes mellitus with stage 3b chronic kidney disease, with long-term current use of insulin (HCC) Apply new sensor every ten (10) days. 9 Each 12/12/2023 Active Start: 01-02-2023 End: 12-12-2023 Blood-Glucose Sensor (DEXCOM G7 SENSOR) jackson Indications: Type 2 diabetes mellitus with stage 3b chronic kidney disease, with long-term current use of insulin (HCC) Apply new sensor every ten (10) days. 9 Each 01/02/2023 12/12/2023 Discontinued Start: 01-02-2023 Blood-Glucose Sensor (DEXCOM G7 SENSOR) jackson Indications: Type 2 diabetes mellitus with stage 3b chronic kidney disease, with long-term current use of insulin (HCC) Apply new sensor every ten (10) days. 9 Each 01/02/2023 Active Comment on above: Apply new sensor kar ry ten (10) days. 24 hr buPROPion hydrochloride 150 mg extended release oral tablet (20 sources) Aminoketone Start: End: 5 take 1 tablet by mouth once daily buPROPion XL (WELLBUTRIN XL) 150 mg 24 hr tablet Indications: Moderate episode of recurrent major depressive disorder (HCC) Take 1 tablet by mouth once daily. 30 tablet 3 03/30/2025 Active Start: 03-28-2021 End: 12-12-2023 take 1 tablet by mouth once daily in the morning buPROPion SR (WELLBUTRIN SR) 150 mg 12 hr tablet Indications: Moderate episode of recurrent major depressive disorder (HCC) Take 1 tablet by mouth every morning. 90 tablet 3 03/30/2022 12/12/2023 Discontinued Comment on above: Take 1 tablet by maximus every morning. carvedilol 6.25 mg oral tablet (20 sources) alpha-Adrenergic Coty, beta-Adrenergic Coty Start: 0 End: 5 take 1 tablet by mouth twice daily at mealtime carvedilol (COREG) 6.25 mg tablet Indications: Essential hypertension , Hemiparesis affecting dominant side as late effect of stroke (HCC) Take 1 tablet by mouth two times a day with meals. 60 tablet 3 03/30/2025 Active Start: 10-02-2019 End: 10-28-2019 take 1 tablet by mouth twice daily at mealtime Carvedilol 3.125 mg tablet Discontinued 3.125 mg PO TWICE A DAY 180 October 24, 2019 11:32am October 28, 2019 2:55pm must administer with a meal/food Comment on above: Take 1 tablet by maximus twice daily with meals. Take 1 tablet by maximus two times a day with meals. cetirizine hydrochloride 10 mg oral tablet (20 sources) Histamine-1 Receptor Antagonist Start: 2 take 1 tablet by mouth once daily as needed cetirizine (ZYRTEC) 10 mg tablet Take 1 tablet by mouth once daily as needed. 10/12/2021 Active Start: 02-10-2021 take 1 capsule by mo [facility] once daily as needed Cetirizine (All Day Allergy (Cetirizine)) 10 mg capsule Active 10 mg PO DAILY as needed February 10, 2021 12:00am Comment on above: Take 1 tablet by maximus once daily as needed. cholecalciferol 0.05 mg oral tablet (20 sources) Vitamin D Start: 09-30-20 19 take 1 tablet by mouth once daily Cholecalciferol (Vitamin D3) 2,000 unit tablet Active 2000 U PO DAILY September 30, 2019 1:00am End: 08-11-2024 take 1 capsule by mouth once daily Cholecalciferol, Vitamin D3, 50 mcg (2,000 unit) cap Take 1 capsule by mouth once daily. 08/11/2024 Discontinued Comment on above: Take 1 capsule by [facility] once daily. ciclopirox 7.7 mg/ml topical cream (20 sources) Start: 03-17-2024 ciclopirox (LOPROX) 0.77 % cream Indications: Candidal intertrigo Apply to affected area two times a day. For 2 to 4 weeks till rash resolves. May treat recurrences for rash under abdominal pannus 30 g 1 03/17/2024 Active Start: 09-20-2020 End: 03-17-2024 ciclopirox (LOPROX) 0.77 % s fpc Apply 1 application to affected area once daily. Okay in skin folds as discussed. 60 mL 1 09/20/2020 03/17/2024 Discontinued Start: 09-30-2019 End: 01-09-2021 Ciclopirox (Loprox (As Olami ne)) 0.77 % cream Discontinued 1 NMA TOPICAL DAILY September 30, 2019 1:00am January 09, 2021 9:55am Comment on above: Apply 1 application to affected area once daily. Okay in skin folds as discussed. ciprofloxacin 250 mg oral tablet (2 sources) Quinolone Antimicrobial Start: 01-26-20 21 take 1 tablet by mouth twice daily Ciprofloxacin Hcl (Cipro) 250 mg tablet Active 250 mg PO TWICE A DAY 10 January 25, 2021 12:00am clobetasol propionate 0.0005 mg/mg topical ointment (20 sources) Corticosteroid Start: 04-04-20 End: 12-12-19 24 clobetasol (TEMOVATE) 0.05 % ointment Apply nightly to affected area for 8-12 weeks, then 1-3x weekly for maintenance 30 g 5 12/12/2023 Active Start: 10-13-2019 End: 04-01-2023 clobetasol (TEMOVATE) 0.05 % ointment Apply nightly to affected area for 8-12 weeks, then 1-3x weekly for maintenance 30 g 5 10/13/2019 04/01/2023 Discontinued Start: 09-30-2019 Clobetasol 0.0 5 % ointment Active 1 NMA TOPICAL DAILY as needed for vaginal bleeding September 30, 2019 1:00am perineium Comment on above: Apply nightly to aff ected area for 8-12 weeks, then 1-3x weekly for maintenance clopidogrel 75 mg oral tablet (20 sources) P2Y12 Platelet Inhibitor Start: End: take 1 tablet by mouth once daily clopidogrel (PLAVIX) 75 mg tablet Take 1 tablet by mouth once daily. 30 tablet 3 03/30/2025 07/28/2025 Active Start: 05-14-2020 End: 01-09-2021 take 1 tablet by mouth once daily Clopidogrel 75 MG tablet Discontinued 75 mg PO DAILY May 14, 2020 12:00am January 09, 2021 9:52am doxycycline monohydrate 100 mg oral tablet (4 sources) Tetracycline-class Drug Start: 10-23-2024 End: 11-01-2024 take 1 tablet by mouth twice daily doxycycline monohydrate 100 mg tablet Indications: Pneumonia of left lower lobe due to infectious organism Take 1 tablet by mouth two times a day for 5 days. 10 tablet 10/27/2024 11/01/2024 Active dulaglutide (TRULICITY) 4.5 mg/0.5 mL pen injector (20 sources) Start: 09-10-2024 inject 4.5 mg by subcutaneous injection every week dulaglutide (TRULICITY) 4.5 mg/0.5 mL pen injector Indications: Type 2 diabetes mellitus with stage 3b chronic kidney disease, with long-term current use of insulin (HCC) Inject 4.5 mg subcutaneously one time a week. Gets through [facility]. 8 mL 3 09/10/2024 Suspended Start: 09-10-2024 inject 4.5 mg by sub cutaneous injection every week dulaglutide (TRULICITY) 4.5 mg/0.5 mL pen injector Indications: Type 2 diabetes mellitus with stage 3b chronic kidney disease, with long-term current use of insulin (HCC) Inject 4.5 mg subcutaneously one time a week. Gets through [facility]. 8 mL 3 09/10/2024 Active Start: 09-01-2024 End: 09-10-2024 inject 4.5 mg by subcutaneous injection every week dulaglutide (TRULICITY) 4.5 mg/0.5 mL pen injector Indications: Type 2 diabetes mellitus with stage 3b chronic kidney disease, with long-term current use of insulin (HCC) Inject 4.5 mg subcutaneously one time a week. Gets through [facility]. 8 mL 3 09/01/2024 09/10/2024 Discontinued Start: 09-01-2024 inject 4.5 mg by sub cutaneous injection every week dulaglutide (TRULICITY) 4.5 mg/0.5 mL pen injector Indications: Type 2 diabetes mellitus with stage 3b chronic kidney disease, with long-term current use of insulin (HCC) Inject 4.5 mg subcutaneously one time a week. Gets through [facility]. 8 mL 3 09/01/2024 Active Start: 06-04-2024 End: 09-01-2024 inject 4.5 mg by subcutaneous injection every week dulaglutide (TRULICITY) 4.5 mg/0.5 mL pen injector Indications: Type 2 diabetes mellitus with stage 3b chronic kidney disease, with long-term current use of insulin (HCC) Inject 4.5 mg subcutaneously one time a week. Gets through [facility] [employer]. 8 mL 2 06/04/2024 09/01/2024 Discontinued Start: 06-04-2024 inject 4.5 mg by sub cutaneous injection every week dulaglutide (TRULICITY) 4.5 mg/0.5 mL pen injector Indications: Type 2 diabetes mellitus with stage 3b chronic kidney disease, with long-term current use of insulin (HCC) Inject 4.5 mg subcutaneously one time a week. Gets through [facility]. 8 mL 2 06/04/2024 Active escitalopram 20 mg oral tablet (20 sources) Serotonin Reuptake Inhibitor Start: 01-07-2025 End: 03-30-2025 take 1 tablet by mouth once daily escitalopram oxalate (LEXAPRO) 20 mg tablet Indications: Moderate episode of recurrent major depressive disorder (HCC) Take 1 tablet by mouth once daily. 30 tablet 3 03/30/2025 Active Start: 07-22-2024 End: 12-19-2024 take 1 tablet by mouth once daily escitalopram oxalate (LEXAPRO) 20 mg tablet Indications: Moderate episode of recurrent major depressive disorder (HCC) Take 1 tablet by mouth once daily. 30 tablet 3 07/22/2024 12/19/2024 Discontinued (Discontinued by Patient) Start: 06-13-2024 End: 07-22-2024 take 1 tablet by mouth once daily escitalopram oxalate (LEXAPRO) 10 mg tablet Indications: Moderate episode of recurrent major depressive disorder (HCC) Take 1 tablet by mouth once daily. 90 tablet 3 06/13/2024 07/22/2024 Discontinued Start: 08-05-2020 End: 05-07-2024 take 1 tablet by mouth once daily escitalopram oxalate (LEXAPRO) 20 mg tablet Indications: Moderate episode of recurrent major depressive disorder (HCC) Take 1 tablet by mouth once daily. 90 tablet 3 12/12/2023 05/07/2024 Discontinued (Course of therapy completed) Comment on above: Take 1 tablet by maximus th once daily. fluticasone propionate 0.05 mg/actuat metered dose nasal spray (20 sources) Corticosteroid Start: 10-27-19 take 2 spray(s) by mouth once daily fluticasone (FLONASE) 50 mcg/actuation nasal spray Indications: Pneumonia of left lower lobe due to infectious organism Use 2 Sprays in each nostril once daily. Rinse mouth after use. 1 Each 10/27/2024 Active furosemide 40 mg oral tablet (20 sources) Loop Diuretic Start: 01-10-20 End: 08-11-20 24 take 1 tablet by mouth once daily Furosemide 40 MG tablet Active 40 mg PO DAILY January 09, 2021 12:00am Comment on above: Take 1 tablet by maximus th once daily. gabapentin 400 mg oral capsule (20 sources) Anti-epileptic Agent Start: 03-19-20 End: 11-10-19 26 take 2 capsules by mouth once, then take 2 capsules by mouth once daily at bedtime gabapentin (NEURONTIN) 400 mg capsule Indications: Type 2 diabetes mellitus with diabetic neuropathy, with long-term current use of insulin (HCC) , 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) , Pain of left lower extremity , Unilateral complete BKA, left, sequela (HCC) Take 2 capsules by mouth every afternoon AND 2 capsules daily at bedtime. Do all this for 180 days. 360 capsule 1 05/14/2025 11/10/2025 Active Start: 10-29-2023 End: 09-12-2024 take 1 capsule by mouth twice daily, then take 2 capsules by mouth once daily at bedtime gabapentin (NEURONTIN) 400 mg capsule Indications: Type 2 diabetes mellitus with diabetic neuropathy, with long-term current use of insulin (HCC) Take 1 capsule by mouth two times a day AND 2 capsules daily at bedtime. Do all this for 90 days. 360 capsule 05/02/2024 Active Start: 05-23-2023 End: 08-21-2023 take 1 capsule by mouth twice daily, then take 2 capsules by mouth once daily at bedtime gabapentin (NEURONTIN) 400 mg capsule Take 1 capsule by mouth twice daily AND 2 capsules daily at bedtime. Do all this for 90 days. 360 capsule 0 05/23/2023 Active Start: 08-05-2020 take 3 capsules by m outh at bedtime Gabapentin 400 MG capsule Active 1200 mg PO AT BEDTIME August 05, 2020 1:00am Start: 10-02-2019 End: 05-05-2025 take 1 capsule by mouth once, then take 2 capsules by mouth once daily at bedtime gabapentin (NEURONTIN) 400 mg capsule Indications: Type 2 diabetes mellitus with diabetic neuropathy, with long-term current use of insulin (HCC) Take 1 capsule by mouth every afternoon AND 2 capsules daily at bedtime. Do all this for 180 days. 270 capsule 1 11/06/2024 03/19/2025 Discontinued Start: 09-30-2019 End: 10-02-2019 take 3 capsules by mouth in the evening Gabapentin 400 mg capsule Discontinued 400 mg PO .COMPLEX September 30, 2019 1:00am October 02, 2019 2:29pm 400 mg PO 2 capsules in the am and 3 capsules in the evening; Comment on above: Take 1 capsule by mo uth every morning AND 3 capsules daily at bedtime. Take 1 capsule by mo uth every afternoon AND 2 capsules daily at bedtime. Take 1 capsule by mo uth twice daily AND 2 capsules daily at bedtime. Do all this for 90 days. Take 1 capsule by mo uth two times a day AND 2 capsules daily at bedtime. Do all this for 90 days. Take 1 capsule by mo uth two times a day AND 2 capsules daily at bedtime. Do all this for 15 days. [id number] ang-Bosw (Glucosamine-Chondroit in Complx) 750-625-30 mg tablet (2 sources) Start: [id number] -Dank-Bosw (Glucosamine-Chondro itin Complx) 750-625-30 mg tablet Active 1 {tbl} PO DAILY September 30, 2019 1:00am give after food/meal hydrALAZINE hydrochloride 50 mg oral tablet (20 sources) Arteriolar Vasodilator Start: take 1 tablet by mouth twice daily hydrALAZINE (APRESOLINE) 50 mg tablet Indications: Essential hypertension Take 1 tablet by mouth two times a day. Hold for SBP less than 120mm HG 180 tablet 3 04/19/2025 Active Start: 01-14-2021 End: 11-05-2024 take 1 tablet by mouth twice daily hydrALAZINE (APRESOLINE) 50 mg tablet Indications: Essential hypertension Take 1 tablet by mouth two times a day. Hold for SBP less than 120mm HG 180 tablet 3 11/06/2024 Active Start: 01-09-2021 Hydralazine 50 MG tablet Active 50 mg PO TWICE A DAY 60 January 09, 2021 12:00am Hold for SBP less than 120 mmHg Patient on hydralazine in place of losartan which is on hold Comment on above: Take 1 tablet by maximus th twice daily. Hold for SBP less than 120mm HG Take 1 tablet by maximus th two times a day. Hold for SBP less than 120mm HG hydrocortisone 25 mg/ml topical cream (1 source) Corticosteroid Start: 2021 End: 2021 hydrocortisone (ANUSOL-HC) 2.5 % rectal cream by RECTAL route twice daily for 7 days. 28 g 0 05/25/2022 06/01/2022 Active Comment on above: by RECTAL route twic e daily for 7 days. 3 ml insulin glargine 100 unt/ml pen injector (20 sources) Insulin Analog Start: 2023 End: 2023 inject 26 [IU] by subcutaneous injection once daily in the morning insulin glargine 100 unit/mL (3 mL) Indications: Type 2 diabetes mellitus with diabetic neuropathy, with long-term current use of insulin (HCC) Inject 26 Units subcutaneously every morning. (Basaglar) Patient assistance medication. 30 mL 3 09/10/2024 Active Start: 06-08-2021 End: 06-04-2024 insulin glargine (LANTUS IDA OSTAR, BASAGLAR KWIKPEN) 100 unit/mL (3 mL) Indications: Type 2 diabetes mellitus with diabetic neuropathy, with long-term current use of insulin (HCC) Inject 30 Units subcutaneously every morning. 15 mL 5 06/08/2021 06/04/2024 Discontinued (Adjust Sig - Block E-Cancel) Start: 06-08-2021 insulin glargi ne (LANTUS SOLOSTAR, BASAGLAR KWIKPEN) 100 unit/mL (3 mL) Indications: Type 2 diabetes mellitus with diabetic neuropathy, with long-term current use of insulin (HCC) Inject 30 Units subcutaneously every morning. 15 mL 5 06/08/2021 Active Start: 01-09-2021 Insulin Glargi ne 100 unit/mL (3 mL) insulin pen Active 30 U SC DAILY 0 January 09, 2021 10:00am Hold if glucose less than 130 mg/dl Start: 10-02-2019 End: 01-09-2021 Insulin Glargine (Lantus Ida ostar U-100 Insulin) 100 unit/mL (3 mL) insulin pen Discontinued 40 U SC DAILY October 02, 2019 2:28pm January 09, 2021 10:00am Start: 09-30-2019 End: 10-02-2019 Insulin Glargine (Lantus Ida ostar U-100 Insulin) 100 unit/mL (3 mL) insulin pen Discontinued 23 U SC .at bedtime September 30, 2019 1:00am October 02, 2019 2:29pm Comment on above: Inject 30 Units subc utaneously every morning. 3 ml insulin lispro 100 unt/ml pen injector (20 sources) Insulin Analog Start: 08-13-2024 End: 09-10-2024 insulin lispro (HUMALOG KWIKPEN) 100 unit/mL Indications: Type 2 diabetes mellitus with diabetic neuropathy, with long-term current use of insulin (HCC) Inject 8 units with breakfast and 4 units with evening meal as directed. Patient assistance medication. 15 mL 3 09/10/2024 Active Start: 05-07-2024 End: 08-13-2024 insulin lispro (HUMALOG KWIK PEN) 100 unit/mL Indications: Type 2 diabetes mellitus with diabetic neuropathy, with long-term current use of insulin (HCC) Inject 10 units with breakfast and 4 units with evening meal as directed. Patient assistance medication. 05/07/2024 08/13/2024 Discontinued (Adjust Sig - Block E-Cancel) Start: 05-14-2020 End: 05-07-2024 Insulin Lispro 100 UNIT/ML i nsulin pen Active 0 U SQ DIRECTED May 14, 2020 12:00am Please contact the information source for Protocol details. Comment on above: Inject 4 Units subcu taneously three times daily before meals. Utilize per sliding scale, max of 20 units per day. Pt assistance med magnesium oxide 500 mg oral tablet (20 sources) take 1 tablet by mouth once daily for constipation Magnesium Oxide 500 mg tab Take 1 tablet by mouth once daily. For constipation Active Comment on above: Take 1 tablet by maximus th once daily. For constipation metoclopramide 10 mg oral tablet (2 sources) Dopamine-2 Receptor Antagonist Start: 2024 take 1 tablet by mouth every six hours as needed for nausea and vomiting Metoclopramide Hcl (Reglan) 10 mg tablet Active 10 mg PO EVERY 6 HOURS as needed for nausea and vomiting 17 02December 21, 2024 12:00am nitroglycerin 0.4 mg sublingual tablet (20 sources) Nitrate Vasodilator Start: 2018 End: 2024 nitroglycerin sublingual (NITROQUICK) 0.4 mg SL tablet Dissolve 1 tablet under the tongue as needed. As directed 25 tablet 1 03/30/2025 Active Start: 09-30-2019 Nitroglycerin 0.4 mg tablet, sublingual Active 0.4 mg SL every 5 to 15 minutes as needed for CHEST PAIN September 30, 2019 1:00am until response; do not exceed 3 doses per episode Comment on above: Dissolve 0.4 mg unde r the tongue as needed. As directed Dissolve 1 tablet un kimmie the tongue as needed. As directed nystatin 100 unt/mg topical powder (20 sources) Polyene Antifungal Start: 04-09-2025 nystatin (MYCOSTATIN) powder Indications: Candidal intertrigo Apply 1 application to affected area two times a day as needed. For prevention 60 g 3 04/09/2025 Active Start: 01-07-2025 End: 03-30-2025 nystatin (MYCOSTATIN) powder Indications: Candidal intertrigo Apply 1 application to affected area two times a day as needed. For prevention 60 g 3 01/07/2025 03/30/2025 Discontinued Start: 07-27-2021 End: 06-13-2023 nystatin (MYCOSTATIN) powder Apply 1 application to affected area twice daily as needed. For prevention 60 g 3 06/13/2023 Active Start: 01-09-2021 Nystatin 1 FAISAL LIC bottle Active 1 NMA TOPICAL TWICE A DAY January 09, 2021 12:00am Please contact the information source for Protocol details. Comment on above: Apply 1 application to affected area twice daily as needed. For prevention ondansetron 4 mg oral tablet (15 sources) Serotonin-3 Receptor Antagonist Start: take 1 tablet by mouth every eight hours as needed for nausea ondansetron (ZOFRAN) 4 mg tablet Indications: Nausea and vomiting, unspecified vomiting type Take 1 tablet by mouth every 8 hours as needed for nausea/vomiting. 20 tablet 12/19/2024 Active pantoprazole 40 mg delayed release oral tablet (20 sources) Proton Pump Inhibitor Start: End: take 1 tablet by mouth once daily pantoprazole DR (PROTONIX) 40 mg tablet Indications: Gastroesophageal reflux disease without esophagitis Take 1 tablet by mouth once daily. 30 tablet 3 03/30/2025 Active Comment on above: Take 1 tablet by maximus once daily. polyethylene glycol 3350 02974 mg powder for oral solution (20 sources) Osmotic Laxative Start: polyethylene glycol 3350 (MIRALAX) 17 gram/dose powder Take 17 g by mouth as directed. 08/07/2017 Active Comment on above: Take 17 g by mouth a s directed. saccharomyces boulardii 250 mg oral capsule (20 sources) Start: End: take 1 capsule by mouth twice daily Saccharomyces boulardii (FLORASTOR) 250 mg capsule Indications: Pneumonia of left lower lobe due to infectious organism Take 1 capsule by mouth two times a day. 60 capsule 11/03/2024 Active tamsulosin hydrochloride 0.4 mg oral capsule (20 sources) alpha-Adrenergic Coty Start: 024 End: 025 take 2 capsules by mouth once daily tamsulosin (FLOMAX) 0.4 mg Take 2 capsules by mouth once daily. 60 capsule 3 03/30/2025 Active Start: 01-09-2021 End: 06-13-2024 take 1 capsule by mouth once daily Tamsulosin 0.4 MG capsule Active 0.4 mg PO DAILY January 09, 2021 12:00am Comment on above: Take 1 capsule by mo [facility] once daily. tirzepatide (MOUNJARO) 5 mg/0.5 mL pen injector (2 sources) Start: 04-02-20 inject 5 mg by subcutaneous injection every week tirzepatide (MOUNJARO) 5 mg/0.5 mL pen injector Inject 5 mg subcutaneously one time a week. 2 mL 3 04/02/2024 Active traMADol hydrochloride 50 mg oral tablet (4 sources) Opioid Agonist Start: 03-17-20 End: 03-24-20 take 1 tablet by mouth twice daily as needed for pain traMADol (ULTRAM) 50 mg tablet Indications: Right hip pain Take 1 tablet by mouth two times a day as needed for pain for up to 7 days. 14 tablet 0 03/17/2024 03/24/2024 Active Start: 06-13-2023 End: 06-20-2023 take 1 tablet by mouth twice daily as needed for pain traMADol (ULTRAM) 50 mg tablet Indications: Right hip pain Take 1 tablet by mouth twice daily as needed for pain for up to 7 days. 14 tablet 0 06/13/2023 06/20/2023 Active Comment on above: Take 1 tablet by maximus twice daily as needed for pain for up to 7 days. valACYclovir 500 mg oral tablet (20 sources) Herpesvirus Nucleoside Analog DNA Polymerase Inhibitor, Herpes Simplex Virus Nucleoside Analog DNA Polymerase Inhibitor, Herpes Zoster Virus Nucleoside Analog DNA Polymerase Inhibitor Start: 09-30-20 End: 03-17-20 take 1 tablet by mouth once daily Valacyclovir (Valtrex) 500 mg tablet Active 500 mg PO DAILY September 30, 2019 1:00am Comment on above: Take 1 tablet by maximus once daily. May increase to 2 pills twice daily for 5 days as directed for acute outbreaks. vitamin b12 0.5 mg oral tablet (20 sources) Vitamin B12 Start: 05-14-20 20 take 2 tablets by mouth once daily Cyanocobalamin (Vitamin B-12) 500 MCG tablet Active 1000 ug PO DAILY@0800 May 14, 2020 12:00am cyanocobalamin, vitamin B-12, 5,000 mcg subl Dissolve under the tongue once daily. Active Comment on above: Dissolve under the t ongue once daily. Zinc (20 sources) Start: 05-14-2020 take 1 tablet by mouth once daily Zinc 50 MG tablet Active 50 mg PO DAILY May 14, 2020 12:00am End: 08-11-2024 Zinc 50 mg tab Take by mouth once daily. 08/11/2024 Discontinued Zinc 50 mg tab T ligia by mouth once daily. Active Zinc 50 mg tab T ligia by mouth once daily. 0 Active Comment on above: Take by mouth once d aily. Completed/Discontinued Medications Medication Drug Class(es) Dates Sig (Normalized) Sig (Original) alendronic acid 70 mg oral tablet (11 sources) Bisphosphonate Start: 01-02-2023 End: 06-13-2023 take 1 tablet by mouth every week in the morning alendronate (FOSAMAX) 70 mg tablet Indications: Osteoporosis without current pathological fracture, unspecified osteoporosis type Take 1 tablet by mouth one time a week. In AM with cup of water on empty stomach. Nothing else by mouth and stay upright for 30 min. 12 tablet 2 01/02/2023 06/13/2023 Discontinued Comment on above: Take 1 tablet by maxmius th one time a week. In AM with cup of water on empty stomach. Nothing else by mouth and stay upright for 30 min. benzonatate 100 mg oral capsule (14 sources) Non-narcotic Antitussive Start: 10-27-2024 End: 03-19-2025 take 1 capsule by mouth three times daily as needed benzonatate (TESSALON PERLE) 100 mg capsule Indications: Nausea and vomiting, unspecified vomiting type Take 1-2 capsules by mouth three times a day as needed. 60 capsule 1 12/19/2024 03/19/2025 Discontinued berberine/herbal complex no.18 (BERBERINE-HERBAL COMB NO.18 ORAL) (20 sources) End: 10-09-2024 take 1200 mg by mouth once daily berberine/herbal complex no.18 (BERBERINE-HERBAL COMB NO.18 ORAL) Take 1,200 mg by mouth once daily. 10/09/2024 Discontinued take 1200 mg by mouth once daily berberine/herbal complex no.18 (BERBERINE- HERBAL COMB NO.18 ORAL) Take 1,200 mg by mouth once daily. Active take 1200 mg by mouth once daily berberine/herbal complex no.18 (BERBERINE- HERBAL COMB NO.18 ORAL) Take 1,200 mg by mouth once daily. 0 Active Comment on above: Take 1,200 mg by maximus th once daily. betamethasone 0.5 mg/ml / clotrimazole 10 mg/ml topical cream (20 sources) Azole Antifungal, Corticosteroid Start: 09-20-2020 End: 06-13-2023 clotrimazole-betamethas one (LOTRISONE) cream Apply 1 application to affected area twice daily. Avoid skin folds 15 g 1 09/20/2020 06/13/2023 Discontinued Start: 09-30-2019 End: 01-09-2021 Clotrimazole-Betamethasone ( Lotrisone) 1-0.05 % cream Discontinued 1 NMA TOPICAL TWICE A DAY September 30, 2019 1:00am January 09, 2021 9:54am Comment on above: Apply 1 application to affected area twice daily. Avoid skin folds 0.5 ml dulaglutide 3 mg/ml auto-injector (20 sources) GLP-1 Receptor Agonist Start: End: inject 1.5 mg by subcutaneous injection once dulaglutide (TRULICITY) 1.5 mg/0.5 mL pen injector Inject 1.5 mg subcutaneously every Sunday. Patient assistance medication 2 mL 11 06/13/2021 04/02/2024 Discontinued Comment on above: Inject 1.5 mg subcut aneously every Sunday. Patient assistance medication dulaglutide (TRULICITY) 3 mg/0.5 mL pen injector (9 sources) Start: End: inject 3 mg by subcutaneous injection every week dulaglutide (TRULICITY) 3 mg/0.5 mL pen injector Indications: Type 2 diabetes mellitus with stage 3b chronic kidney disease, with long-term current use of insulin (HCC) Inject 3 mg subcutaneously one time a week. 8 mL 2 04/04/2024 06/04/2024 Discontinued Start: 04-04-2024 inject 3 mg by subcu taneous injection every week dulaglutide (TRULICITY) 3 mg/0.5 mL pen injector Indications: Type 2 diabetes mellitus with stage 3b chronic kidney disease, with long-term current use of insulin (HCC) Inject 3 mg subcutaneously one time a week. 8 mL 2 04/04/2024 Active ferrous sulfate 325 mg oral tablet (20 sources) Start: 01-09-2021 End: 08-11-2024 take 1 tablet by mouth once ferrous sulfate 325 mg (65 mg iron) tablet Take 1 tablet by mouth every Sunday, Sunday, and Sunday. 12/12/2023 08/11/2024 Discontinued Start: 01-09-2021 take 1 tablet by maximus th once daily Ferrous Sulfate 325 MG tablet Active 325 mg PO DAILY@1200 60 January 09, 2021 12:00am Start: 08-05-2020 End: 01-09-2021 take 1 tablet by mouth three times daily at mealtime Ferrous Sulfate 325 MG tablet Discontinued 325 mg PO 3 TIMES DAILY WITH MEALS August 05, 2020 1:00am January 09, 2021 9:58am Comment on above: Take 1 tablet by maximus th once daily. Take 1 tablet by maximus th every Sunday,Sunday,Sunday. Take 1 tablet by maximus th every Sunday, Sunday, and Sunday. fluconazole 150 mg oral tablet (3 sources) Azole Antifungal Start: End: take 1 tablet by mouth once fluconazole (DIFLUCAN) 150 mg tablet Take 1 tablet by mouth one time only for 1 dose. 1 tablet 09/17/2024 09/17/2024 Start: 08-05-2020 End: 01-09-2021 take 1 tablet by mouth once daily as needed Fluconazole 200 MG tablet Discontinued 200 mg PO DAILY as needed for yeast infection August 05, 2020 1:00am January 09, 2021 9:53am GLUC PETIT/CHONDRO PETIT A/VIT C/M N (GLUCOSAMINE 1500 COMPLEX ORAL) (20 sources) End: 06-13-2024 GLUC PETIT/CHONDRO PETIT A/VIT C/M N (GLUCOSAMINE 1500 COMPLEX ORAL) Take 1 tablet by mouth once daily. 06/13/2024 Discontinued GLUC PETIT/CHONDRO PETIT A/VIT C/MN (GLUCOSAMINE 1500 COMPLEX ORAL) Take 1 tablet by mouth once daily. Active GLUC PETIT/CHONDRO PETIT A/VIT C/MN (GLUCOSAMINE 1500 COMPLEX ORAL) Take 1 tablet by mouth once daily. 0 Active Comment on above: Take 1 tablet by maximus th once daily. guaifenesin/pseudoephe drne HCl (MUCINEX D ORAL) (8 sources) End: 12-19-2024 guaifenesin/pseudoephedrne HCl (MUCINEX D ORAL) Take by mouth. 12/19/2024 Discontinued guaifenesin/pseu doephedrne HCl (MUCINEX D ORAL) Take by mouth. Active insulin lispro (HUMALOG KWIKPEN) 100 unit/mL (20 sources) Start: 09-21-2021 inject 4 [IU] by subcutaneous injection three times daily before mealtime, then inject 20 [IU] by subcutaneous injection once daily insulin lispro (HUMALOG KWIKPEN) 100 unit/mL Indications: Type 2 diabetes mellitus with diabetic neuropathy, with long-term current use of insulin (HCC) Inject 4 Units subcutaneously three times daily before meals. Utilize per sliding scale, max of 20 units per day. Pt assistance med 5 Pen 2 09/21/2021 Active Comment on above: Inject 4 Units subcu taneously three times daily before meals. Utilize per sliding scale, max of 20 units per day. Pt assistance med 10 ml lidocaine hydrochloride 10 mg/ml injection (2 sources) Antiarrhythmic, Amide Local Anesthetic Start: 01-24-2023 End: 01-24-2023 lidocaine (PF) 10 mg/mL (1 %) 1 mL injection (XYLOCAINE) Start: 01-24-2023 End: 01-24-2023 lidocaine (PF) 10 mg/mL (1 % ) 1 mL injection (XYLOCAINE) losartan potassium 100 mg oral tablet (2 sources) Angiotensin 2 Receptor Coty Start: 09-30-2019 End: 01-09-2021 take 1 tablet by mouth once daily Losartan 100 mg tablet Discontinued 100 mg PO DAILY September 30, 2019 1:00am January 09, 2021 10:00am mupirocin 0.02 mg/mg topical ointment (20 sources) RNA Synthetase Inhibitor Antibacterial Start: 12-10-2020 End: 06-13-2023 mupirocin (BACTROBAN) 2 % ointment Apply to affected area once daily. 30 g 1 12/10/2020 06/13/2023 Discontinued Comment on above: Apply to affected ar ea once daily. oxyCODONE hydrochloride 5 mg oral tablet (20 sources) Opioid Agonist Start: 01-09-2021 End: 12-11-2022 take 1 tablet by mouth every four hours as needed for pain Oxycodone 5 MG tablet Discontinued 5 mg PO EVERY 4 HOURS NEEDED as needed for Pain Score 6-10 7 2 January 09, 2021 January 10, 2021 12:00am January 11, 2021 12:03am Comment on above: Take 1 tablet by maximus th every 4 hours as needed. predniSONE 10 mg oral tablet (8 sources) Start: 11-03-2024 End: 12-19-2024 predniSONE (DELTASONE) 10 mg tablet Indications: Pneumonia of left lower lobe due to infectious organism Take 40 mg x 3 days, 20 mg x 3 days, 10 mg x 3 days. Take with food, once daily 21 tablet 11/03/2024 12/19/2024 Discontinued 1 ml triamcinolone acetonide 40 mg/ml injection (2 sources) Corticosteroid Start: 01-24-2023 End: 01-24-2023 triamcinolone acetonide 40 mg injection (KeNALog 40) Start: 01-24-2023 End: 01-24-2023 triamcinolone acetonide 40 m g injection (KeNALog 40) Problems Active Problems Problem Classification Problem Date Documented Date Episodic/Chronic Acute and unspecified renal failure (2 sources) Acute renal failure syndrome; Translations: [Acute kidney failure, unspecified] 01-07-2021 Episodic Administrative/social admission (2 sources) Financial circumstances change; Translations: [Problem related to housing and economic circumstances, unspecified] 05-01-2024 Episodic Anxiety disorders (20 sources) Anxiety; Translations: [Anxiety disorder, unspecified] Onset: 5 06-11-2020 Chronic Calculus of urinary tract (2 sources) Ureteric stone; Translations: [Calculus of ureter] 01-03-2021 Episodic Chronic kidney disease (2 sources) Chronic kidney disease; Translations: [Chronic kidney disease, stage 3b] Onset: Chronic ulcer of skin (4 sources) Non-pressure chronic ulcer of other part of right foot limited to breakdown of skin; Translations: [Ulcer of other part of foot] Onset: 4 11-20-2024 Chronic Complications of surgical procedures or medical care (2 sources) Non-healing surgical wound; Translations: [Other complications of procedures, not elsewhere classified, initial encounter] 01-03-2021 Episodic Deficiency and other anemia (1 source) Anemia; Translations: [Anemia, unspecified] 2024 Episodic Deficiency and other anemia (1 source) Anemia, unspecified; Translations: [Anemia, unspecified] Onset: 5 Episodic Diabetes mellitus with complications (20 sources) Type 2 diabetes mellitus; Translations: [Type 2 diabetes mellitus with diabetic neuropathy, unspecified] Onset: 5 Resolved: 1 06-11-2020 Chronic Diabetes mellitus without complication (1 source) Insulin treated type 2 diabetes mellitus 03-19-2025 Chronic Diabetes mellitus without complication (1 source) Hyperglycemia; Translations: [Hyperglycemia, unspecified] Episodic Diabetes mellitus without complication (1 source) Diabetes mellitus without complication; Translations: [Type 2 diabetes mellitus with stage 3b chronic kidney disease, with long-term current use of insulin (HCC)] Onset: 2 Diseases of white blood cells (20 sources) Leukocytosis; Translations: [Elevated white blood cell count, unspecified] Onset: 0 12-11-2019 Chronic Disorders of lipid metabolism (20 sources) Hyperlipidemia; Translations: [Hyperlipidemia, unspecified] Onset: 6 06-11-2020 Chronic E Codes: Fall (2 sources) Fall; Translations: [Unspecified fall, initial encounter] 08-06-2020 Episodic Esophageal disorders (20 sources) Gastroesophageal reflux disease; Translations: [Gastro-esophageal reflux disease without esophagitis] Onset: 8 06-11-2020 Chronic Essential hypertension (20 sources) Essential hypertension; Translations: [Essential (primary) hypertension] Onset: 6 06-11-2020 Chronic Fluid and electrolyte disorders (2 sources) Metabolic acidosis; Translations: [Metabolic acidosis] 12-21-2024 Episodic Hemorrhoids (2 sources) Bleeding external hemorrhoids; Translations: [Residual hemorrhoidal skin tags] 11-28-2019 Episodic Hypertension with complications and secondary hypertension (20 sources) Chronic kidney disease due to hypertension; Translations: [Hypertensive chronic kidney disease with stage 1 through stage 4 chronic kidney disease, or unspecified chronic kidney disease] Onset: 2 09-21-2022 Chronic Infective arthritis and osteomyelitis (except that caused by tuberculosis or sexually transmitted disease) (3 sources) Acute osteomyelitis of right foot; Translations: [Other acute osteomyelitis, right ankle and foot] Onset: 5 09-25-2024 Chronic Late effects of cerebrovascular disease (20 sources) 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; Translations: [Hemiplegia and hemiparesis following cerebral infarction affecting unspecified side] Onset: 5 Chronic Malaise and fatigue (2 sources) Fatigue; Translations: [Other fatigue] 02-10-2021 Episodic Mood disorders (20 sources) Recurrent major depression in partial remission; Translations: [Major depressive disorder, recurrent, in partial remission] Onset: 6 Resolved: 0 06-11-2020 Chronic Open wounds of extremities (3 sources) Amputated left lower limb below knee; Translations: [Complete traumatic amputation at level between knee and ankle, left lower leg, sequela] Onset: 5 03-19-2025 Chronic Osteoporosis (3 sources) Osteoporosis; Translations: [Age-related osteoporosis without current pathological fracture] Onset: 4 Chronic Other aftercare (7 sources) Patient encounter status; Translations: [Encounter for therapeutic drug level monitoring] 06-13-2023 Episodic Other bone disease and musculoskeletal deformities (20 sources) 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; Translations: [Acquired absence of left leg below knee] Onset: 0 07-20-2020 Chronic Other bone disease and musculoskeletal deformities (5 sources) Amputee; Translations: [Acquired absence of limb, unspecified] 09-17-2024 Chronic Other bone disease and musculoskeletal deformities (1 source) Absence of lower limb; Translations: [Acquired absence of left leg below knee] 09-29-2024 Chronic Other bone disease and musculoskeletal deformities (2 sources) Acquired absence of limb, unspecified; Translations: [Hx of amputation] Onset: 4 Chronic Other bone disease and musculoskeletal deformities (2 sources) Acquired absence of left leg below knee; Translations: [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)] Onset: 0 Chronic Other circulatory disease (2 sources) History of cardiovascular surgery; Translations: [Presence of other vascular implants and grafts] 05-14-2020 Chronic Other connective tissue disease (20 sources) Disorder of skeletal muscle; Translations: [Other symptoms and signs involving the musculoskeletal system] 04-09-2021 Episodic Other connective tissue disease (5 sources) Triggering of digit; Translations: [Trigger finger, right middle finger] Episodic Other connective tissue disease (3 sources) Pain in left lower limb; Translations: [Pain in left leg] 03-19-2025 Episodic Other connective tissue disease (1 source) Pain in left leg; Translations: [Pain of left lower extremity] Onset: 5 Episodic Other diseases of kidney and ureters (1 source) Secondary hyperparathyroidism of renal origin; Translations: [Secondary hyperparathyroidism of renal origin] Onset: 5 Chronic Other diseases of kidney and ureters (2 sources) Hydronephrosis; Translations: [Unspecified hydronephrosis] 01-03-2021 Episodic Other disorders of stomach and duodenum (2 sources) Gastroparesis syndrome; Translations: [Gastroparesis] 09-29-2019 Episodic Other eye disorders (1 source) Obstruction of lacrimal canaliculus; Translations: [Acquired stenosis of bilateral nasolacrimal duct] 06-13-2023 Episodic Other eye disorders (1 source) Red eye; Translations: [Other specified disorders of eye and adnexa] 04-03-2024 Episodic Other gastrointestinal disorders (1 source) Constipation; Translations: [Constipation, unspecified] 2024 Episodic Other gastrointestinal disorders (1 source) Abdominal bloating; Translations: [Abdominal distension (gaseous)] 2024 Episodic Other injuries and conditions due to external causes (2 sources) Contusion; Translations: [Other injury of unspecified body region, initial encounter] 08-06-2020 Episodic Other lower respiratory disease (2 sources) Cough; Translations: [Acute cough] 10-23-2024 Episodic Other nervous system disorders (20 sources) Bilateral carpal tunnel syndrome; Translations: [Carpal tunnel syndrome, bilateral upper limbs] Onset: 6 05-04-2016 Chronic Other nervous system disorders (2 sources) Phantom limb syndrome with pain; Translations: [Phantom limb syndrome with pain] 03-19-2025 Chronic Other nervous system disorders (1 source) Phantom limb syndrome with pain; Translations: [Phantom limb syndrome with pain (HCC)] Onset: 5 Chronic Other non-traumatic joint disorders (2 sources) Pain in right hip joint; Translations: [Pain in right hip] 06-13-2023 Episodic Other nutritional; endocrine; and metabolic disorders (20 sources) Obese class I; Translations: [Obesity, unspecified] Onset: 0 12-11-2019 Chronic Other nutritional; endocrine; and metabolic disorders (4 sources) Severe obesity; Translations: [Morbid (severe) obesity due to excess calories] Onset: 5 2024 Chronic Other nutritional; endocrine; and metabolic disorders (1 source) Hypercalcemia; Translations: [Hypercalcemia] 2024 Chronic Other nutritional; endocrine; and metabolic disorders (1 source) Morbid (severe) obesity due to excess calories; Translations: [Class 2 severe obesity due to excess calories with serious comorbidity and body mass index (BMI) of 36.0 to 36.9 in adult ([facility])] Onset: 5 Chronic Other nutritional; endocrine; and metabolic disorders (1 source) Body mass index (BMI) 36.0-36.9, adult; Translations: [Class 2 severe obesity due to excess calories with serious comorbidity and body mass index (BMI) of 36.0 to 36.9 in adult ([facility])] Onset: 5 Chronic Other nutritional; endocrine; and metabolic disorders (1 source) Hypercalcemia; Translations: [Hypercalcemia] Onset: 4 Chronic Other nutritional; endocrine; and metabolic disorders (1 source) Weight gain; Translations: [Abnormal weight gain] 2024 Episodic Other skin disorders (20 sources) Lichen sclerosus et atrophicus; Translations: [Circumscribed scleroderma] Onset: 8 03-19-2018 Chronic Other skin disorders (2 sources) Skin eschar; Translations: [Changes in skin texture] 11-20-2024 Episodic Other skin disorders (1 source) Changes in skin texture; Translations: [Eschar] Onset: 5 Episodic Peripheral and visceral atherosclerosis (20 sources) Peripheral vascular disease; Translations: [Peripheral vascular disease, unspecified] Onset: 6 06-11-2020 Chronic Residual codes; unclassified (20 sources) Obstructive sleep apnea syndrome; Translations: [Obstructive sleep apnea (adult) (pediatric)] Onset: 5 10-09-2024 Chronic Comment on above: Uses CPAP Residual codes; unclassified (2 sources) Postmenopausal state; Translations: [Asymptomatic menopausal state] Episodic Residual codes; unclassified (3 sources) Other specified health status; Translations: [Other specified conditions influencing health status] Onset: 5 05-14-2024 Episodic Residual codes; unclassified (1 source) Needs assistance with community resources; Translations: [Other specified health status] 05-27-2024 Episodic Residual codes; unclassified (2 sources) Creatinine level - finding 12-21-2024 Episodic Residual codes; unclassified (2 sources) Sign; Translations: [Other general symptoms and signs] 11-28-2019 Episodic Residual codes; unclassified (1 source) Does not perform personal care activity; Translations: [Other specified health status] 03-19-2025 Episodic Unclassified (1 source) New Patient Onset: 4 Unclassified (1 source) Patient encounter status 06-02-2025 Unclassified (1 source) Class 2 severe obesity due to excess calories with serious comorbidity and body mass index (BMI) of 36.0 to 36.9 in adult (HCC); Translations: [Class 2 severe obesity due to excess calories with serious comorbidity and body mass index (BMI) of 36.0 to 36.9 in adult (HCC)] Onset: 5 Unclassified (1 source) Acute cough; Translations: [Acute cough] Onset: 5 Urinary tract infections (2 sources) Pyelonephritis; Translations: [Tubulo-interstitial nephritis, not specified as acute or chronic] 01-03-2021 Episodic Comment on above: Complicated pyelonep hritis Viral infection (20 sources) Genital Herpes simplex type 1 infection; Translations: [Herpesviral infection of urogenital system, unspecified] Onset: 5 Chronic Viral infection (3 sources) Acute viral disease; Translations: [Viral infection, unspecified] 12-19-2024 Episodic Past or Other Problems Problem Classification Problem Date Documented Da te Episodic/Chronic Abdominal pain (20 sources) Epigastric pain; Translations: [Epigastric pain] Onset: 8 Resolved: 0 03-05-2020 Episodic Gangrene (20 sources) Gangrenous disorder; Translations: [Gangrene, not elsewhere classified] Onset: 0 Resolved: 0 03-05-2020 Episodic Genitourinary symptoms and ill-defined conditions (20 sources) Retention of urine; Translations: [Retention of urine, unspecified] Onset: 0 07-24-2020 Episodic Immunizations and screening for infectious disease (1 source) Encounter for immunization; Translations: [Encounter for immunization] Onset: 5 Episodic Mycoses (3 sources) Candidal intertrigo; Translations: [Candidiasis of skin and nail] Onset: 5 2024 Episodic Nausea and vomiting (5 sources) Nausea and vomiting; Translations: [Nausea with vomiting, unspecified] Onset: 5 12-19-2024 Episodic Other aftercare (4 sources) longterm (current) use of insulin; Translations: [Type 2 diabetes mellitus with diabetic neuropathy, with long-term current use of insulin (HCC)] Onset: 0 Episodic Other circulatory disease (20 sources) History of cerebrovascular accident; Translations: [Personal history of transient ischemic attack (TIA), and cerebral infarction without residual deficits] Onset: 5 02-03-2016 Episodic Comment on above: Left hemispheric 200 5 Other circulatory disease (20 sources) Lower limb ischemia; Translations: [Other disorder of circulatory system] Onset: 0 Resolved: 0 11-12-2019 Episodic Other connective tissue disease (20 sources) Dupuytren's disease of palm; Translations: [Palmar fascial fibromatosis [Dupuytren]] Onset: 5 10-15-2014 Episodic Other connective tissue disease (1 source) Other symptoms and signs involving the musculoskeletal system; Translations: [Muscular deconditioning] Onset: 1 Episodic Other disorders of stomach and duodenum (20 sources) Nonulcer dyspepsia; Translations: [Functional dyspepsia] Onset: 8 11-20-2017 Episodic Other gastrointestinal disorders (20 sources) Diarrhea of presumed infectious origin; Translations: [Diarrhea, unspecified] Onset: 0 Resolved: 0 03-05-2020 Episodic Other gastrointestinal disorders (1 source) Constipation, unspecified; Translations: [Constipation, unspecified constipation type] Onset: 5 Episodic Other nervous system disorders (20 sources) Impairment of balance; Translations: [Other abnormalities of gait and mobility] Onset: 5 Resolved: 0 03-05-2020 Episodic Other non-traumatic joint disorders (20 sources) Pain in left shoulder; Translations: [Pain in joint, shoulder region] Onset: 7 Resolved: 0 03-05-2020 Episodic Other nutritional; endocrine; and metabolic disorders (20 sources) Constitutional obesity; Translations: [Other obesity] Onset: 6 Resolved: 0 03-05-2020 Chronic Other nutritional; endocrine; and metabolic disorders (1 source) Abnormal weight gain; Translations: [Weight gain] Onset: 4 Episodic Other screening for suspected conditions (not mental disorders or infectious disease) (20 sources) Electrocardiogram abnormal; Translations: [Abnormal electrocardiogram [ECG] [EKG]] Onset: 6 02-03-2016 Episodic Pneumonia (except that caused by tuberculosis or sexually transmitted disease) (5 sources) Community acquired pneumonia; Translations: [Pneumonia, unspecified organism] Onset: 5 10-23-2024 Episodic Unclassified (1 source) PAD (peripheral artery disease) ([facility]) 11-20-2024 Unclassified (1 source) Ulcer of toe of right foot, limited to breakdown of skin ([facility]) 11-20-2024 Unclassified (1 source) 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 03-19-2025 Unclassified (1 source) Amputated left lower limb below knee 03-19-2025 Results Test Name Value Interpretation Reference Range Facility CNOVon 06-02-2025 CNOV Office Visit ([facility]) MIRIAM THOMAS ([id number]) 1955 F Date Time Provider Department 06/02/25 10:00 AM NICHELLE VILLATORO [facility] During your visit today, we recorded the following information about you: Pulse Respiration Blood pressure 75/minute 16/minute 130/58 Nichelle Villatoro, SHEAR [employer]ATOR [employer] 06/02/2025 10:34 AM Signed SUBJECTIVE: RSV Vaccine(1 - Risk 60-74 years 1-dose series) Never done DTaP,Tdap,Td Vaccine(2 - Td or Tdap) due on 10/01/2018 Diabetic Foot Exam due on 06/13/2024 HbA1C due on 12/11/2024 Dilated Retinal Exam due on 05/21/2025 Influenza Vaccine(1) due on 06/01/2025 LDL Cholesterol due on 06/13/2025 Mammogram Screening due on 09/05/2025 HPI Miriam Thomas is a 70 year old female. 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 (Hcc) Recurrent Major Depression in Partial Remission Functional Dyspepsia Gastroesophageal Reflux Disease Diabetic Gastroparesis (Hcc) Lichen Sclerosus Type 2 Diabetes Mellitus With Diabetic Peripheral Angiopathy and Gangrene, With Long-Term Current Use of Insulin ([facility]) Obesity, Class I, Bmi 30-34.9 Leukocytosis Type 2 Diabetes Mellitus With Stage 3b Chronic Kidney Disease, With Long-Term Current Use of Insulin ([facility]) Hx of Bka, Left ([facility]) Urinary Retention Muscular Deconditioning Moderate Episode of Recurrent Major Depressive Disorder (Hcc) Hypertensive Ckd (Chronic Kidney Disease) Jose (Obstructive Sleep Apnea) Class 2 Severe Obesity Due to Excess Calories With Serious Comorbidity and Body Mass Index (Bmi) of 36.0 to 36.9 in Adult (Hcc) The patient is a 70-year-old female with chronic kidney disease, depression, and status post left lower extremity amputation, presenting for routine follow-up and medication management. Angioplasty: - Miriam Thomas underwent angioplasty with balloon angioplasty performed by Dr. Dobbins at [facility] in [place]. - Currently on dual antiplatelet therapy with Plavix and aspirin, as well as atorvastatin. - Previously on Eliquis, switched to Plavix post-procedure. - Advised to continue Plavix for 6 months and aspirin indefinitely. - Follow-up appointment with Dr. Dobbins scheduled for June 11. Depression: - Miriam reports improvement in depressive symptoms, stating depression is kind of lifted. Amputation: - Miriam has a history of leg amputation approximately 5 years ago. She has done well with home health care PT and OT, feeling well. Patient's last HgA1C was Hemoglobin A1C (%) Date Value 06/13/2024 6.1 12/11/2023 6.1 05/09/2021 5.4 06/09/2020 6.3 ) Last 14 Encounter BP Readings: Date: BP: 06/02/2025 130/58 03/19/2025 137/71 01/07/2025 130/58 12/05/2024 118/52 11/03/2024 118/70 10/27/2024 110/66 10/23/2024 102/67 10/09/2024 132/66 09/30/2024 159/70 09/29/2024 122/62 06/13/2024 157/70 04/03/2024 146/68 03/17/2024 108/58 06/13/2023 130/54 Hyperlipidemia. Ms. Thomas reports doing well on current therapy. Her most recent lipid panels are: Cholesterol, Total (mg/dL) Date Value 12/11/2023 157 12/07/2022 151 09/20/2020 145 05/31/2019 198 Total Cholesterol, Nonfasting (mg/dL) Date Value 06/13/2024 153 HDL Cholesterol (mg/dL) Date Value 12/11/2023 55 12/07/2022 44 09/20/2020 51 05/31/2019 54 HDL Cholesterol, Nonfasting (mg/dL) Date Value 06/13/2024 48 LDL Cholesterol, Calculated (mg/dL) Date Value 12/11/2023 78 12/07/2022 83 09/20/2020 71 05/31/2019 91 LDL Cholesterol Calculated, Nonfasting (mg/dL) Date Value 06/13/2024 72 Triglyceride (mg/dL) Date Value 12/11/2023 119 12/07/2022 118 09/20/2020 114 05/31/2019 263 Triglycerides, Nonfasting (mg/dL) Date Value 06/13/2024 167 ROS Objective BP 130/58 Pulse 75 Resp 16 SpO2 97% Physical Exam Vitals and nursing note reviewed. Constitutional: Appearance: Normal appearance. HENT: Head: Normocephalic and atraumatic. Right Ear: Tympanic membrane and ear canal normal. Left Ear: Ear canal normal. Mouth/Throat: Lips: [place]. Mouth: Mucous membranes are moist. Pharynx: Oropharynx is clear. Tonsils: No tonsillar exudate. Eyes: Conjunctiva/sclera: Conjunctivae normal. Cardiovascular: Rate and Rhythm: Normal rate and regular rhythm. Heart sounds: Normal heart sounds. Pulmonary: Effort: Pulmonary effort is normal. Breath sounds: Normal breath sounds. Skin: General: Skin is warm and dry. Neurologic (more content not included)... Normal [facility] 03-30-2025 [facility] MIRIAM THOMAS ([id number]) 1955 F Date Time Provider Department 03/30/25 EARL SHEPHERD [facility] During your visit today, we recorded the following information about you: Justyna Stewart LPN 03/30/2025 3:29 PM Signed Serina moctezuma [facility] calls to report they would like to get pt's meds that are not prn or insulin, synced. Serina is requesting orders to go to [facility]. Please review Nystatin powder order and change to a 30 day supply. Prescription Refill Information The patient has been identified by name and date of : Yes Caregiver verified no other encounters exist for this prescription request: Yes Caregiver confirmed with patient/requestor that no other refills are due, in the near future, with this provider at this time: Yes The last office visit in the department: 03/19/25 Does the patient have a future office visit with this provider/department: Yes 06/02/25 Requested Prescriptions Pending Prescriptions Disp Refills acyclovir (ZOVIRAX) 400 mg tablet 60 tablet 3 Sig: Take 1 tablet by mouth two times a day. atorvastatin (LIPITOR) 40 mg tablet 30 tablet 3 Sig: Take 1 tablet by mouth daily at bedtime. For cholesterol. buPROPion XL (WELLBUTRIN XL) 150 mg 24 hr tablet 30 tablet 3 Sig: Take 1 tablet by mouth once daily. carvedilol (COREG) 6.25 mg tablet 60 tablet 3 Sig: Take 1 tablet by mouth two times a day with meals. clopidogrel (PLAVIX) 75 mg tablet 30 tablet 3 Sig: Take 1 tablet by mouth once daily. escitalopram oxalate (LEXAPRO) 20 mg tablet 30 tablet 3 Sig: Take 1 tablet by mouth once daily. nystatin (MYCOSTATIN) powder 60 g 3 Sig: Apply 1 application to affected area two times a day as needed. For prevention pantoprazole DR (PROTONIX) 40 mg tablet 30 tablet 3 Sig: Take 1 tablet by mouth once daily. tamsulosin (FLOMAX) 0.4 mg 60 capsule 3 Sig: Take 2 capsules by mouth once daily. Justyna Stewart LPN March 30, 2025 3:28 PM Earl Shepherd MD 03/30/2025 8:29 PM Signed Amount for nystatin powder depends on how much she needs per week and/or month--how long dose current amount dispensed last? The following approved medication requests have been transmitted electronically. Requested Prescriptions Pending Prescriptions Disp Refills nystatin (MYCOSTATIN) powder 60 g 3 Sig: Apply 1 application to affected area two times a day as needed. For prevention Signed Prescriptions Disp Refills acyclovir (ZOVIRAX) 400 mg tablet 60 tablet 3 Sig: Take 1 tablet by mouth two times a day. Authorizing Provider: EARL SHEPHERD atorvastatin (LIPITOR) 40 mg tablet 30 tablet 3 Sig: Take 1 tablet by mouth daily at bedtime. For cholesterol. Authorizing Provider: EARL SHEPHERD buPROPion XL (WELLBUTRIN XL) 150 mg 24 hr tablet 30 tablet 3 Sig: Take 1 tablet by mouth once daily. Authorizing Provider: EARL SHEPHERD carvedilol (COREG) 6.25 mg tablet 60 tablet 3 Sig: Take 1 tablet by mouth two times a day with meals. Authorizing Provider: EARL SHEPHERD clopidogrel (PLAVIX) 75 mg tablet 30 tablet 3 Sig: Take 1 tablet by mouth once daily. Authorizing Provider: EARL SHEPHERD escitalopram oxalate (LEXAPRO) 20 mg tablet 30 tablet 3 Sig: Take 1 tablet by mouth once daily. Authorizing Provider: EARL SHEPHERD pantoprazole DR (PROTONIX) 40 mg tablet 30 tablet 3 Sig: Take 1 tablet by mouth once daily. Authorizing Provider: EARL SHEPHERD tamsulosin (FLOMAX) 0.4 mg 60 capsule 3 Sig: Take 2 capsules by mouth once daily. Authorizing Provider: EARL SHEPHERD MD Russell, Julia, LPN 03/31/2025 9:55 AM Signed Attempted to contact patient. Call was answered but noted a lot of static and call was dropped during conversation. Message left asking for Counts include [facility] beds at the [facility] nurse to return call. Earl Shepherd MD 04/09/2025 3:23 PM Signed Sent the nystatin powder as was pended since no reply from HH regarding how much needed per month. Can update RX in the future if determine needs more per month The following approved medication requests have been transmitted electronically. Requested Prescriptions Signed Prescriptions Disp Refills acyclovir (ZOVIRAX) 400 mg tablet 60 tablet 3 Sig: Take 1 tablet by mouth two times a day. Authorizing Provider: EARL SHEPHERD atorvastatin (LIPITOR) 40 mg tablet 30 tablet 3 Sig: Take 1 tablet by mouth daily at bedtime. For cholesterol. Authorizing Provider: EARL SHEPHERD buPROPion XL (WELLBUTRIN XL) 150 mg 24 hr tablet 30 tablet 3 Sig: Take 1 tablet by mouth once daily. Authorizing Provider: EARL SHEPHERD carvedilol (COREG) 6.25 mg tablet 60 tablet 3 Sig: Take 1 tablet by mouth two times a day with meals. Authorizing Provider: EARL SHEPHERD clopidogrel (PLAVIX) 75 mg tablet 30 tablet 3 Sig: Take 1 tablet by mouth once daily. Authorizing Provider: EARL SHEPHERD (more content not included)... Normal [facility] 03-26-2025 [facility] Telephone ([facility]) MIRIAM THOMAS ([id number]) 1955 F Date Time Provider Department 03/26/25 EARL SHEPHERD [facility] During your visit today, we recorded the following information about you: Lizzie Mason RN 03/26/2025 12:24 PM Signed Pushpa from [facility] calls and states that she visited patient today and opened skilled service for detention, PT, and OT. Pushpa added OT when she visited patient. No call back needed unless there are questions. CARMELO Mooney Terri, SHEAR [employer] 03/26/2025 1:10 PM Signed ANIL Szymanski [facility]. Allergies As of Date: 03/26/2025 Noted Allergy Reaction MELOXICAM 06/22/2016 8 - GI Upset SULFA (SULFONAMIDE ANTIBIOTICS) 10/15/2014 7 - Swelling Comments: Facial swelling, shortness of breath. Date Reviewed: 03/19/2025 Reviewed by: Kayla Cardozo LPN - Fully Assessed Reason for Visit: Home Health Orders [Other] Prescriptions as of 03/26/2025 - gabapentin (NEURONTIN) 400 mg capsule Take 2 capsules by mouth every afternoon AND 2 capsules daily at bedtime. Do all this for 180 days. - buPROPion XL (WELLBUTRIN XL) 150 mg 24 hr tablet Take 1 tablet by mouth once daily. - acyclovir (ZOVIRAX) 400 mg tablet Take 1 tablet by mouth two times a day. - escitalopram oxalate (LEXAPRO) 20 mg tablet Take 1 tablet by mouth once daily. - nystatin (MYCOSTATIN) powder Apply 1 application to affected area two times a day as needed. For prevention - ondansetron (ZOFRAN) 4 mg tablet Take 1 tablet by mouth every 8 hours as needed for nausea/vomiting. - carvedilol (COREG) 6.25 mg tablet Take 1 tablet by mouth two times a day with meals. - hydrALAZINE (APRESOLINE) 50 mg tablet Take 1 tablet by mouth two times a day. Hold for SBP less than 120mm HG - Saccharomyces boulardii (FLORASTOR) 250 mg capsule Take 1 capsule by mouth two times a day. - albuterol HFA (PROVENTIL HFA) 90 mcg/actuation inhaler Inhale 1-2 Puffs as instructed four times a day as needed for wheezing/shortness of breath. - fluticasone (FLONASE) 50 mcg/actuation nasal spray Use 2 Sprays in each nostril once daily. Rinse mouth after use. - clopidogrel (PLAVIX) 75 mg tablet Take 1 tablet by mouth once daily. - dulaglutide (TRULICITY) 4.5 mg/0.5 mL pen injector Inject 4.5 mg subcutaneously one time a week. Gets [facility]. - insulin glargine 100 unit/mL (3 mL) Inject 26 Units subcutaneously every morning. (Basaglar) Patient assistance medication. - insulin lispro (HUMALOG KWIKPEN) 100 unit/mL Inject 8 units with breakfast and 4 units with evening meal as directed. Patient assistance medication. - atorvastatin (LIPITOR) 40 mg tablet Take 1 tablet by mouth daily at bedtime. For cholesterol. - tamsulosin (FLOMAX) 0.4 mg Take 2 capsules by mouth once daily. - Blood-Glucose Sensor (Planspot G7 SENSOR) jackson Apply new sensor every ten (10) days. - ciclopirox (LOPROX) 0.77 % cream Apply to affected area two times a day. For 2 to 4 weeks till rash resolves. May treat recurrences for rash under abdominal pannus - blood sugar diagnostic (BLOOD GLUCOSE TEST) test strip Test blood sugar(s) 3 to 4 times daily. Dx: Other DM Code E11.51 Insulin: Yes One touch or Accucheck strips or strips covered by her insurance. - Lancets Test blood sugar(s) 3 to 4 times daily. Dx: Other DM Code E11.51 Insulin: Yes - clobetasol (TEMOVATE) 0.05 % ointment Apply nightly to affected area for 8-12 weeks, then 1-3x weekly for maintenance - pantoprazole DR (PROTONIX) 40 mg tablet Take 1 tablet by mouth once daily. - B complex w-C no.20/folic acid (B COMPLEX WITH C 20-FOLIC ACID ORAL) Take 1 tablet by mouth once daily. - Magnesium Oxide 500 mg tab Take 1 tablet by mouth once daily. For constipation - Blood-Glucose Meter,Continuous (DEXCOM G7 ENVELOPE SEALER) [facility] Use to check blood sugar at least four (4) times daily. - nitroglycerin sublingual (NITROQUICK) 0.4 mg SL tablet Dissolve 1 tablet under the tongue as needed. As directed - insulin needles, DISPOSABLE, (PEN NEEDLE) 31 gauge x 5/16 Use one needle per dose. 5 per day. - bacitracin zinc 500 unit/gram ointment Apply to affected area twice daily. As directed for affected area till healed - cetirizine (ZYRTEC) 10 mg tablet Take 1 tablet by mouth once daily as needed. - aspirin, enteric coated (ASPIRIN, ENTERIC COATED) 81 mg EC tablet Take 1 tablet by mouth once daily. - cyanocobalamin, vitamin B-12, 5,000 mcg subl Dissolve under the tongue once daily. - ascorbic acid, vitamin C, (VITAMIN C) 500 mg tablet Take 1,000 mg by mouth once daily. - polyethylene glycol 3350 (MIRALAX) 17 gram/dose powder Take 17 g by mouth as directed. Meds Comments as of 12/16/2019: 12/16/19 The medications are managed by this patient by: PATIENT Zulay Tejeda Pharm-T Problem List As Of Date 03/26/2025 Noted Resolved Hemiparesis affecting domin (more content not included)... Normal [facility] Janice 03-23-2025 BGN Telephone (MAYANKWSSu) MIRIAM THOMAS ([id number]) 1955 F Date Time Provider Department 03/23/25 SAUNDRA JOHNSON During your visit today, we recorded the following information about you: Saundra Johnson, DIRECTOR OF HOUSING AND ENERGY SERVICES 03/23/2025 10:17 AM Signed Sw connected with patient and noted that she would mail patient home care coordinator, [facility] Older Adult Resource Guide, and Care [employer], [employer] information. Patient notes that she is looking at services to help with light meal prep and light housekeeping. Sw will mail info to patient home to make connection with different resources to find out about assistance options that would be beneficial. Allergies As of Date: 03/23/2025 Noted Allergy Reaction MELOXICAM 06/22/2016 8 - GI Upset SULFA (SULFONAMIDE ANTIBIOTICS) 10/15/2014 7 - Swelling Comments: Facial swelling, shortness of breath. Date Reviewed: 03/19/2025 Reviewed by: Kayla Cardozo LPN - Fully Assessed Prescriptions as of 03/23/2025 - gabapentin (NEURONTIN) 400 mg capsule Take 2 capsules by mouth every afternoon AND 2 capsules daily at bedtime. Do all this for 180 days. - buPROPion XL (WELLBUTRIN XL) 150 mg 24 hr tablet Take 1 tablet by mouth once daily. - acyclovir (ZOVIRAX) 400 mg tablet Take 1 tablet by mouth two times a day. - escitalopram oxalate (LEXAPRO) 20 mg tablet Take 1 tablet by mouth once daily. - nystatin (MYCOSTATIN) powder Apply 1 application to affected area two times a day as needed. For prevention - ondansetron (ZOFRAN) 4 mg tablet Take 1 tablet by mouth every 8 hours as needed for nausea/vomiting. - carvedilol (COREG) 6.25 mg tablet Take 1 tablet by mouth two times a day with meals. - hydrALAZINE (APRESOLINE) 50 mg tablet Take 1 tablet by mouth two times a day. Hold for SBP less than 120mm HG - Saccharomyces boulardii (FLORASTOR) 250 mg capsule Take 1 capsule by mouth two times a day. - albuterol HFA (PROVENTIL HFA) 90 mcg/actuation inhaler Inhale 1-2 Puffs as instructed four times a day as needed for wheezing/shortness of breath. - fluticasone (FLONASE) 50 mcg/actuation nasal spray Use 2 Sprays in each nostril once daily. Rinse mouth after use. - clopidogrel (PLAVIX) 75 mg tablet Take 1 tablet by mouth once daily. - dulaglutide (TRULICITY) 4.5 mg/0.5 mL pen injector Inject 4.5 mg subcutaneously one time a week. Gets through [facility]. - insulin glargine 100 unit/mL (3 mL) Inject 26 Units subcutaneously every morning. (Basaglar) Patient assistance medication. - insulin lispro (HUMALOG KWIKPEN) 100 unit/mL Inject 8 units with breakfast and 4 units with evening meal as directed. Patient assistance medication. - atorvastatin (LIPITOR) 40 mg tablet Take 1 tablet by mouth daily at bedtime. For cholesterol. - tamsulosin (FLOMAX) 0.4 mg Take 2 capsules by mouth once daily. - Blood-Glucose Sensor (DEXCOM G7 SENSOR) jackson Apply new sensor every ten (10) days. - ciclopirox (LOPROX) 0.77 % cream Apply to affected area two times a day. For 2 to 4 weeks till rash resolves. May treat recurrences for rash under abdominal pannus - blood sugar diagnostic (BLOOD GLUCOSE TEST) test strip Test blood sugar(s) 3 to 4 times daily. Dx: Other DM Code E11.51 Insulin: Yes One touch or Accucheck strips or strips covered by her insurance. - Lancets Test blood sugar(s) 3 to 4 times daily. Dx: Other DM Code E11.51 Insulin: Yes - clobetasol (TEMOVATE) 0.05 % ointment Apply nightly to affected area for 8-12 weeks, then 1-3x weekly for maintenance - pantoprazole DR (PROTONIX) 40 mg tablet Take 1 tablet by mouth once daily. - B complex w-C no.20/folic acid (B COMPLEX WITH C 20-FOLIC ACID ORAL) Take 1 tablet by mouth once daily. - Magnesium Oxide 500 mg tab Take 1 tablet by mouth once daily. For constipation - Blood-Glucose Meter,Continuous (DEXCOM G7 ENVELOPE SEALER) misc Use to check blood sugar at least four (4) times daily. - nitroglycerin sublingual (NITROQUICK) 0.4 mg SL tablet Dissolve 1 tablet under the tongue as needed. As directed - insulin needles, DISPOSABLE, (PEN NEEDLE) 31 gauge x 5/16 Use one needle per dose. 5 per day. - bacitracin zinc 500 unit/gram ointment Apply to affected area twice daily. As directed for affected area till healed - cetirizine (ZYRTEC) 10 mg tablet Take 1 tablet by mouth once daily as needed. - aspirin, enteric coated (ASPIRIN, ENTERIC COATED) 81 mg EC tablet Take 1 tablet by mouth once daily. - cyanocobalamin, vitamin B-12, 5,000 mcg subl Dissolve under the tongue once daily. - ascorbic acid, vitamin C, (VITAMIN C) 500 mg tablet Take 1,000 mg by mouth once daily. - polyethylene glycol 3350 (MIRALAX) 17 gram/dose powder Take 17 g by mouth as directed. Meds Comments as of 12/16/2019: 12/16/19 The medications are managed by this patient by: PATIENT Zulay Tejeda Pharm-T Problem List As Of Date (more content not included)... Normal [facility] CNOVon 03-19-2025 CNOV Office Visit (INTMWS) MIRIAM THOMAS ([id number]) 1955 F Date Time Provider Department 03/19/25 9:00 AM NICHELLE VILLATORO INTMWS During your visit today, we recorded the following information about you: Pulse Respiration Blood pressure 80/minute 16/minute 137/71 Nichelle Villatoro APRN.[employer] 03/19/2025 10:07 AM Signed SUBJECTIVE: RSV Vaccine(1 - Risk 60-74 years 1-dose series) Never done DTaP,Tdap,Td Vaccine(2 - Td or Tdap) due on 10/01/2018 Diabetic Foot Exam due on 06/13/2024 HbA1C due on 12/11/2024 Mammogram Screening due on 09/05/2025 HPI Miriam Thomas is a 70 year old female. 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 (Hcc) Recurrent Major Depression in Partial Remission Functional Dyspepsia Gastroesophageal Reflux Disease Diabetic Gastroparesis (Hcc) Lichen Sclerosus Type 2 Diabetes Mellitus With Diabetic Peripheral Angiopathy and Gangrene, With Long-Term Current Use of Insulin ([facility]) Obesity, Class I, Bmi 30-34.9 Leukocytosis Type 2 Diabetes Mellitus With Stage 3b Chronic Kidney Disease, With Long-Term Current Use of Insulin ([facility]) Hx of Bka, Left ([facility]) Urinary Retention Muscular Deconditioning Moderate Episode of Recurrent Major Depressive Disorder ([facility]) Hypertensive Ckd (Chronic Kidney Disease) Jose (Obstructive Sleep Apnea) Presents for a follow-up visit. Miriam Thomas is a 70-year-old female with a history of stage 4 CKD, DM, and depression, presenting for evaluation of home care needs and management of phantom limb pain. Home Care Needs: - Miriam requires assistance with meal preparation and light housekeeping. - , age 77 with heart disease function, currently provides most assistance, adversely affecting his health. - Difficulty ambulating due to unilateral leg amputation; uses a wheelchair. - Has a prosthetic leg but experiences significant pain and phantom limb pain when using it. - Needs assistance with dressing and some bathroom activities. - House is not set up for wheelchair accessibility; experiences difficulty in the kitchen. - Sleeps in a recliner chair; does not use a walker. - Has made medication errors; requests assistance with medication management. Phantom Limb Pain: - Experiences phantom limb pain when using prosthetic leg. - Currently taking gabapentin 400 mg in the morning and 800 mg at bedtime; sometimes takes an additional 400 mg in the afternoon. - Reports gabapentin is not providing adequate relief. Depression: - Feels that health issues are a burden on her and marriage. - Taking bupropion 150 mg in the evening and Lexapro in the morning. Patient's last HgA1C was Hemoglobin A1C (%) Date Value 06/13/2024 6.1 12/11/2023 6.1 05/09/2021 5.4 06/09/2020 6.3 ) Last 14 Encounter BP Readings: Date: BP: 03/19/2025 137/71 01/07/2025 130/58 12/05/2024 118/52 11/03/2024 118/70 10/27/2024 110/66 10/23/2024 102/67 10/09/2024 132/66 09/30/2024 159/70 09/29/2024 122/62 06/13/2024 157/70 04/03/2024 146/68 03/17/2024 108/58 06/13/2023 130/54 05/15/2023 118/68 ROS Constitutional: (+) weakness, (+) fatigue, (+) drowsiness Respiratory: (+) exertional dyspnea Musculoskeletal: (+) ambulation difficulty, (+) leg pain, (+) falls Neurological: (+) phantom limb pain, (+) limb twitching Psychiatric: (+) depressed mood Objective BP 137/71 Pulse 80 Resp 16 Physical Exam Vitals and nursing note reviewed. Constitutional: Appearance: Normal appearance. HENT: Head: Normocephalic and atraumatic. Right Ear: Tympanic membrane and ear canal normal. Left Ear: Ear canal normal. A middle ear effusion (serous) is present. Nose: Mucosal edema present. Mouth/Throat: Lips: [place]. Mouth: Mucous membranes are moist. Pharynx: Oropharynx is clear. Tonsils: No tonsillar exudate. Eyes: Conjunctiva/sclera: Conjunctivae normal. Cardiovascular: Rate and Rhythm: Normal rate and regular rhythm. Heart sounds: Normal heart sounds. Pulmonary: Effort: Pulmonary effort is normal. Breath sounds: Normal breath sounds. Skin: General: Skin is warm and dry. Neurological: General: No focal deficit present. Mental Status: She is alert and oriented to person, place, and time. ALLERGIES Allergen Reactions Meloxicam GI Upset Sulfa (Sulfonamide * Swelling Facial swelling, shortness of breath. Medications acyclovir (ZOVIRAX) 400 mg tablet Take 1 tablet by mout (more content not included)... [facility] Tele[facility] (HCSIND) MIRIAM THOMAS ([id number]) 1955 F Date Time Provider Department 03/19/25 DONOVAN HARMONIND During your visit today, we recorded the following information about you: Donovan Harmon, PSS 03/19/2025 11:51 AM Signed Thank you for the referral of your patient to [facility]. At this time, we are at capacity and are unable to accept your patient. In order to help your patient receive quality home care, we have included reputable agencies that service this area: [facility] - , [place] [address] [facility] - . Please contact this agency and they will work with your patient to arrange timely services. Thank you, Donovan Harmon, PSS 03/19/2025 11:50 AM Nichelle Villatoro APRN.[employer] 03/19/2025 5:01 PM Signed Please see below, send referral as noted Kayla Cardozo LPN 03/19/2025 5:17 PM Signed Referral sent to [facility] at fax number provided. Allergies As of Date: 03/19/2025 Noted Allergy Reaction MELOXICAM 06/22/2016 8 - GI Upset SULFA (SULFONAMIDE ANTIBIOTICS) 10/15/2014 7 - Swelling Comments: Facial swelling, shortness of breath. Date Reviewed: 03/19/2025 Reviewed by: Kayla Cardozo LPN - Fully Assessed Reason for Visit: Home Care [[id number]] Cmt: Declined Prescriptions as of 03/19/2025 - gabapentin (NEURONTIN) 400 mg capsule Take 2 capsules by mouth every afternoon AND 2 capsules daily at bedtime. Do all this for 180 days. - buPROPion XL (WELLBUTRIN XL) 150 mg 24 hr tablet Take 1 tablet by mouth once daily. - acyclovir (ZOVIRAX) 400 mg tablet Take 1 tablet by mouth two times a day. - escitalopram oxalate (LEXAPRO) 20 mg tablet Take 1 tablet by mouth once daily. - nystatin (MYCOSTATIN) powder Apply 1 application to affected area two times a day as needed. For prevention - ondansetron (ZOFRAN) 4 mg tablet Take 1 tablet by mouth every 8 hours as needed for nausea/vomiting. - carvedilol (COREG) 6.25 mg tablet Take 1 tablet by mouth two times a day with meals. - hydrALAZINE (APRESOLINE) 50 mg tablet Take 1 tablet by mouth two times a day. Hold for SBP less than 120mm HG - Saccharomyces boulardii (FLORASTOR) 250 mg capsule Take 1 capsule by mouth two times a day. - albuterol HFA (PROVENTIL HFA) 90 mcg/actuation inhaler Inhale 1-2 Puffs as instructed four times a day as needed for wheezing/shortness of breath. - fluticasone (FLONASE) 50 mcg/actuation nasal spray Use 2 Sprays in each nostril once daily. Rinse mouth after use. - clopidogrel (PLAVIX) 75 mg tablet Take 1 tablet by mouth once daily. - dulaglutide (TRULICITY) 4.5 mg/0.5 mL pen injector Inject 4.5 mg subcutaneously one time a week. Gets through [facility]. - insulin glargine 100 unit/mL (3 mL) Inject 26 Units subcutaneously every morning. (Basaglar) Patient assistance medication. - insulin lispro (HUMALOG KWIKPEN) 100 unit/mL Inject 8 units with breakfast and 4 units with evening meal as directed. Patient assistance medication. - atorvastatin (LIPITOR) 40 mg tablet Take 1 tablet by mouth daily at bedtime. For cholesterol. - tamsulosin (FLOMAX) 0.4 mg Take 2 capsules by mouth once daily. - Blood-Glucose Sensor (Planspot G7 SENSOR) jackson Apply new sensor every ten (10) days. - ciclopirox (LOPROX) 0.77 % cream Apply to affected area two times a day. For 2 to 4 weeks till rash resolves. May treat recurrences for rash under abdominal pannus - blood sugar diagnostic (BLOOD GLUCOSE TEST) test strip Test blood sugar(s) 3 to 4 times daily. Dx: Other DM Code E11.51 Insulin: Yes One touch or Accucheck strips or strips covered by her insurance. - Lancets Test blood sugar(s) 3 to 4 times daily. Dx: Other DM Code E11.51 Insulin: Yes - clobetasol (TEMOVATE) 0.05 % ointment Apply nightly to affected area for 8-12 weeks, then 1-3x weekly for maintenance - pantoprazole DR (PROTONIX) 40 mg tablet Take 1 tablet by mouth once daily. - B complex w-C no.20/folic acid (B COMPLEX WITH C 20-FOLIC ACID ORAL) Take 1 tablet by mouth once daily. - Magnesium Oxide 500 mg tab Take 1 tablet by mouth once daily. For constipation - Blood-Glucose Meter,Continuous (DEXB2B-Center G7 ENVELOPE SEALER) misc Use to check blood sugar at least four (4) times daily. - nitroglycerin sublingual (NITROQUICK) 0.4 mg SL tablet Dissolve 1 tablet under the tongue as needed. As directed - insulin needles, DISPOSABLE, (PEN NEEDLE) 31 gauge x 5/16 Use one needle per dose. 5 per day. - bacitracin zinc 500 unit/gram ointment Apply to affected area twice daily. As directed for affected area till healed - cetirizine (ZYRTEC) 10 mg tablet Take 1 tablet by mouth once daily as needed. - aspirin, enteric coated (ASPIRIN, ENTERIC COATED) 81 mg EC tablet Take 1 tablet by mouth once daily. - cyanocobalamin, vitamin B-12, 5,000 mcg subl Disso (more content not included)... Normal [facility] Anion gap in Serum or Plasma Ordered By: Sharon Barnes on 02-09-2025 Anion gap [Moles/Vol] 10 mmol/L - [facility] BUN/creatinine ratioOrdered By: Sharon Barnes on 02-09-2025 Urea nitrogen/Creatinine [Mass ratio] 19.9 mg/mg - [facility] CBC-Complete Blood Cnt No Di ffon 02-09-2025 Erythrocyte distribution width (RBC) [Ratio] 15.5 % High 11.6-14.6 [facility] Comment on above: Performed By: #### L 509.1000, L500.3600, L100.0500, L506.1001 #### [facility] [address] [place], [address] Hematocrit (Bld) [Volume fraction] 30.5 % Low 37-47 [facility] Comment on above: Performed By: #### L 509.1000, L500.3600, L100.0500, L506.1001 #### [facility] [address] [place], [address] Hemoglobin (Bld) [Mass/Vol] 9.3 g/dL Low 12.0-15.0 [facility] Comment on above: Performed By: #### L 509.1000, L500.3600, L100.0500, L506.1001 #### [facility] [address] [place], [address] MCH (RBC) [Entitic mass] 27.5 pg Normal 27.0-32.0 [facility] Comment on above: Performed By: #### L 509.1000, L500.3600, L100.0500, L506.1001 #### [facility] [address] [place], [address] MCHC (RBC) [Mass/Vol] 30.5 g/dL Low 32-36 [facility] Comment on above: Performed By: #### L 509.1000, L500.3600, L100.0500, L506.1001 #### [facility] [address] [place], [address] MCV (RBC) [Entitic vol] 90.2 fL Normal 81-99 [facility] Comment on above: Performed By: #### L 509.1000, L500.3600, L100.0500, L506.1001 #### [facility] [address] [place], [address] Platelet mean volume (Bld) [Entitic vol] 9.7 fL Normal 6.2-12.0 [facility] Comment on above: Performed By: #### L 509.1000, L500.3600, L100.0500, L506.1001 #### [facility] [address] [place], [address] Platelets (Bld) [#/Vol] 218 10*3/uL Normal 150-450 [facility] Comment on above: Performed By: #### L 509.1000, L500.3600, L100.0500, L506.1001 #### [facility] [address] [place], [address] RBC (Bld) [#/Vol] 3.38 10*6/uL Low 4.2-5.4 [facility] Comment on above: Performed By: #### L 509.1000, L500.3600, L100.0500, L506.1001 #### [facility] [address] [place], [address] RDW SD 51.1 fl High 35.1-43.9 [facility] Comment on above: Performed By: #### L 509.1000, L500.3600, L100.0500, L506.1001 #### [facility] [address] [place], [address] WBC (Bld) [#/Vol] 6.6 10*3/uL Normal 4.4-11.0 [facility] Comment on above: Performed By: #### L 509.1000, L500.3600, L100.0500, L506.1001 #### [facility] [address] [place], [address] Carbon dioxide, total [Moles /volume] in Central venous bloodOrdered By: Sharon Barnes on 02-09-2025 CO2 [Moles/Vol] 22.5 mmol/L 21.0-32.0 [facility] Chloride assayOrdered By: Mare Barnes on 02-09-2025 Chloride [Moles/Vol] 107 mmol/L 98-108 [facility] Erythrocyte distribution wid th ratioOrdered By: Sharon Barnes on 02-09-2025 Erythrocyte distribution width (RBC) [Ratio] 15.5 % High 11.6-14.6 [facility] Erythrocyte distribution wid th standard deviationOrdered By: Sharon Barnes on 02-09-2025 Erythrocyte distribution width (RBC) [Ratio] 51.1 fl High 35.1-43.9 [facility] Glomerular filtration rate ( GFR) estimation/1.73 sq m using serum, plasma, or whole bOrdered By: Sharon Barnes on 02-09-2025 GFR/1.73 sq M.predicted among non-blacks MDRD (S/P/Bld) [Vol rate/Area] 35 mL/min/{1.73_m2} Low >60 [facility] Comment on above: mL/min/1.73m2 CKD-EP I Creatinine Equation (2020) Hematocrit Auto (Bld) [Volum e fraction]Ordered By: Sharon Barnes on 02-09-2025 Hematocrit (Bld) [Volume fraction] 30.5 % Low 37-47 [facility] Hemoglobin measurementOrdere d By: Sharon Barnes on 02-09-2025 Hemoglobin (Bld) [Mass/Vol] 9.3 g/dL Low 12.0-15.0 [facility] MCV (mean corpuscular volume ) determinationOrdered By: Sharon Barnes on 02-09-2025 MCV (RBC) [Entitic vol] 90.2 fL 81-99 [facility] Mean corpuscular hemoglobin (MCH) determinationOrdered By: Sharon Barnes on 02-09-2025 MCH (RBC) [Entitic mass] 27.5 pg 27.0-32.0 [facility] Mean corpuscular hemoglobin concentration (MCHC) determinationOrdered By: Sharon Barnes on 02-09-2025 MCHC (RBC) [Mass/Vol] 30.5 g/dL Low 32-36 [facility] Mean platelet volume determi nationOrdered By: Sharon Barnes on 02-09-2025 Platelet mean volume (Bld) [Entitic vol] 9.7 fL 6.2-12.0 [facility] PTHINon 02-09-2025 PTH 208 pg/mL High 11-61 [facility] Comment on above: Performed By: #### L 500.3600, L506.1000, L509.1000 #### [facility] [address] [place], [address] Platelet countOrdered By: Mare Barnes on 02-09-2025 Platelets (Bld) [#/Vol] 218 10*3/uL 150-450 [facility] Potassium measurement (mass/ volume)Ordered By: Sharon Barnes on 02-09-2025 Potassium (Unsp spec) [Mass/Vol] 4.8 mmol/L 3.3-5.1 [facility] RBC Auto (Bld) [#/Vol]Ordere d By: Sharon Barnes on 02-09-2025 RBC (Bld) [#/Vol] 3.38 10*6/uL Low 4.2-5.4 [facility] Renal Profileon 02-09-2025 Albumin [Mass/Vol] 3.9 g/dL Normal 3.4-4.8 [facility] Comment on above: Performed By: #### L 500.3600, L506.1000, L509.1000 #### [facility] [address] [place], [address] BUN/CRE 19.9 RATIO Normal 10-20 [facility] Comment on above: Performed By: #### L 500.3600, L506.1000, L509.1000 #### [facility] [address] [place], [address] Calcium [Mass/Vol] 10.4 mg/dL Normal 7.6-11.0 [facility] Comment on above: Performed By: #### L 500.3600, L506.1000, L509.1000 #### [facility] [address] [place], [address] Chloride [Moles/Vol] 107 mmol/L Normal 98-108 [facility] Comment on above: Performed By: #### L 500.3600, L506.1000, L509.1000 #### [facility] [address] [place], [address] CO2 [Moles/Vol] 22.5 mmol/L Normal 21.0-32.0 [facility] Comment on above: Performed By: #### L 500.3600, L506.1000, L509.1000 #### [facility] [address] [place], [address] Creatinine [Mass/Vol] 1.60 mg/dL High 0.70-1.20 [facility] Comment on above: Performed By: #### L 500.3600, L506.1000, L509.1000 #### [facility] [address] [place], [address] GAP 10 Normal 5-15 [facility] Comment on above: Performed By: #### L 500.3600, L506.1000, L509.1000 #### [facility] [address] [place], [address] GFR/1.73 sq M.predicted among non-blacks MDRD (S/P/Bld) [Vol rate/Area] 35 mL/min/{1.73_m2} Low >60 [facility] [facility] Comment on above: Result Comment: mL/m in/1.73m2 CKD-EPI Creatinine Equation (2020) Performed By: #### L 500.3600, L506.1000, L509.1000 #### [facility] [address] [place], [address] Glucose [Mass/Vol] 65 mg/dL Low 70-99 [facility] Comment on above: Performed By: #### L 500.3600, L506.1000, L509.1000 #### [facility] [address] [place], [address] Phosphate [Mass/Vol] 3.6 mg/dL Normal 2.7-4.5 [facility] Comment on above: Performed By: #### L 500.3600, L506.1000, L509.1000 #### [facility] [address] [place], [address] Potassium [Moles/Vol] 4.8 mmol/L Normal 3.3-5.1 [facility] Comment on above: Performed By: #### L 500.3600, L506.1000, L509.1000 #### [facility] [address] [place], [address] Sodium [Moles/Vol] 140 mmol/L Normal 133-145 [facility] Comment on above: Performed By: #### L 500.3600, L506.1000, L509.1000 #### [facility] [address] [place], [address] Urea nitrogen [Mass/Vol] 32 mg/dL High 01-17 [facility] Comment on above: Performed By: #### L 500.3600, L506.1000, L509.1000 #### [facility] [address] [place], [address] Serum creatinine measurement (mass/volume)Ordered By: Sharon Barnes on 02-09-2025 Creatinine [Mass/Vol] 1.60 mg/dL High 0.70-1.20 [facility] Serum glucose measurement (m ass/volume)Ordered By: Sharon Barnes on 02-09-2025 Glucose [Mass/Vol] 65 mg/dL Low 70-99 [facility] Serum or plasma albumin ishaan urement (mass/volume)Ordered By: Sharon Barnes on 02-09-2025 Albumin [Mass/Vol] 3.9 g/dL 3.4-4.8 [facility] Serum or plasma calcium ishaan urement (mass/volume)Ordered By: Sharon Barnes on 02-09-2025 Calcium [Mass/Vol] 10.4 mg/dL 7.6-11.0 [facility] Serum or plasma urea nitroge n measurement (mass/volume)Ordered By: Sharon Barnes on 02-09-2025 Urea nitrogen [Mass/Vol] 32 mg/dL High 01-17 [facility] Sodium levelOrdered By: Alena Barnes on 02-09-2025 Sodium [Moles/Vol] 140 mmol/L 133-145 [facility] Vitamin D,25 Hydroxyon 02-09 Vitamin D 25-OH 39.0 ng/mL Normal 30-100 [facility] Comment on above: Result Comment: Cesilia min D Status Deficiency: <20 ng/mL (50nmol/L) Insufficiency: 20-30 ng/mL (50-75 nmol/L) Sufficiency: 30-100 ng/mL (75-250 nmol/L) Toxicity: >100 ng/mL (>250 nmol/L) Performed By: #### L 500.3600, L506.1000, L509.1000 #### [facility] [address] [place], [place], [address] White blood cell (WBC) count Ordered By: Sharon Barnes on 02-09-2025 WBC (Bld) [#/Vol] 6.6 10*3/uL 4.4-11.0 [facility] ALBUMIN/CREATININE RATIO, UR INEon 01-23-2025 Albumin DL <= 20 mg/L (U) [Mass/Vol] 33.8 mg/L Normal [facility] Comment on above: Order Comment: Speci men Type: URINE SPECIMENOrdering Facility: [facility] Address: [address] [place] [address] Performed By: #### U ACR ####[facility] LABCLIA [id number] [place] [address] [place] Albumin/Creatinine (U) [Mass ratio] 48 mg/g High <30 [facility] Comment on above: Order Comment: Speci men Type: URINE SPECIMENOrdering Facility: [facility] Address: [address] [place] [address] Result Comment: Adul t Male and Female Nephrotic Criteria: <30 mg/g is considered normal to mildly increased 30-300 mg/g is considered moderately increased >300 mg/g is considered severely increased KDIGO. (2013). KDIGO 2012 Clinical Practice Guideline for the Evaluation and Management of Chronic Kidney Disease. Official Journal of the International Society of Nephrology, 3(1), 1-150. Performed By: #### U ACR ####[facility] LABCLIA [id number] [address] [place] [address] [place] Creatinine (U) [Mass/Vol] 69.7 mg/dL Normal 20.0-300.0 [facility] Comment on above: Order Comment: Speci men Type: URINE SPECIMENOrdering Facility: [facility] Address: [address] [place] [address] Performed By: #### U ACR ####[facility] LABCLIA [id number] [address] [place] [address] [place] Bacteria Ur Culton Bacteria identified Cx Nom (U) ORGANISM ID: 1 >=100,000 CFU/ml Mixed microbiota No further workup. Mixed microbiota can be due to???urine???contami nation with skin bacteria at time of collection or presence of a long-term urinary catheter. If a new culture is needed, please consider re-education of the patient on proper midstream co llection technique or straight catheterization for???urine???collec tion. Normal [facility] Comment on above: Performed By: #### 6 30-4 ####[facility] LABCLIA [id number] [address] [place] [address] [place] Urinalysis complete panel (U )on 01-23-2025 BACTERIA UL >9821 High Negative [facility] Comment on above: Order Comment: Speci men Type: URINE SPECIMENOrdering Facility: [facility] Address: [address] [place] [address] Performed By: #### 2 4356-8 ####[facility] LABCLIA [id number] [address] [place] [address] [place] Bilirubin Ql (U) Negative Normal Negative [facility] Comment on above: Order Comment: Speci men Type: URINE SPECIMENOrdering Facility: [facility] Address: [address] [place] [address] Performed By: #### 2 4356-8 ####[facility] LABCLIA [id number] [facility] [address] [place] [address] [place] Clarity (Unsp spec) Cloudy Abnormal Clear [facility] Comment on above: Order Comment: Speci men Type: URINE SPECIMENOrdering Facility: [facility] Address: [address] [place] [address] Performed By: #### 2 4356-8 ####[facility] LABCLIA [id number] [address], [facility] [place] Color (U) Yellow Normal Yellow [facility] Comment on above: Order Comment: Speci men Type: URINE SPECIMENOrdering Facility: [facility] Address: [address] [place] [address] Performed By: #### 2 4356-8 ####[facility] LABCLIA [id number] [place] [address] [place] Epithelial cells LM.HPF (Urine sed) [#/Area] None Seen Normal [facility] Comment on above: Order Comment: Speci men Type: URINE SPECIMENOrdering Facility: [facility] Address: [address] [place] [address] Performed By: #### 2 4356-8 ####[facility] LABCLIA [id number] [place] [address] [place] Glucose Test strip (U) [Mass/Vol] Negative Normal Negative [facility] Comment on above: Order Comment: Speci men Type: URINE SPECIMENOrdering Facility: [facility] Address: [address] [place], [place] [address] Performed By: #### 2 4356-8 ####[facility] LABCLIA [id number] [place] [address] [place] Hemoglobin Ql (U) Negative Normal Negative [facility] Comment on above: Order Comment: Speci men Type: URINE SPECIMENOrdering Facility: [facility] Address: [address] [place] [address] Performed By: #### 2 4356-8 ####[facility] LABCLIA [id number] [place] [address] [place] Hyaline casts (Urine sed) [#/Area] 1-3 /LPF Abnormal 0 /LPF [facility] Comment on above: Order Comment: Speci men Type: URINE SPECIMENOrdering Facility: [facility] Address: [address] [place] [address] Performed By: #### 2 4356-8 ####[facility] LABCLIA [id number] [place] [address] [place] Ketones Ql (U) Negative Normal Negative [facility] Comment on above: Order Comment: Speci men Type: URINE SPECIMENOrdering Facility: [facility] Address: [address] [place] [address] Performed By: #### 2 4356-8 ####[facility] LABCLIA [id number] [place] [address] [place] Leukocyte esterase Test strip Ql (U) 3+ Abnormal Negative [facility] Comment on above: Order Comment: Speci men Type: URINE SPECIMENOrdering Facility: [facility] Address: [address] [place] [address] Performed By: #### 2 4356-8 ####[facility] LABCLIA [id number] [place] [address] [place] Nitrite Ql (U) Negative Normal Negative [facility] Comment on above: Order Comment: Speci men Type: URINE SPECIMENOrdering Facility: [facility] Address: [address] [place] [address] Performed By: #### 2 4356-8 ####[facility] LABCLIA [id number] [place] [address] [place] pH (U) 5.5 [pH] Normal <8.5 [facility] Comment on above: Order Comment: Speci men Type: URINE SPECIMENOrdering Facility: [facility] Address: [address] [place] [address] Performed By: #### 2 4356-8 ####[facility] LABIA [id number] [place] [address] [place] Protein (U) [Mass/Vol] Negative Normal Negative [facility] Comment on above: Order Comment: Speci men Type: URINE SPECIMENOrdering Facility: [facility] Address: [address] [place] [address] Performed By: #### 2 4356-8 ####[facility] [id number] [place] [address] [place] RBC LM.HPF (Urine sed) [#/Area] 0-2 /HPF Normal 0-2 /HPF [facility] Comment on above: Order Comment: Speci men Type: URINE SPECIMENOrdering Facility: [facility] Address: [address] [place] [address] Performed By: #### 2 4356-8 ####[facility] [id number] [place] [address] [place] Specific gravity (U) [Rel density] 1.012 Normal 1.005-1.030 [facility] Comment on above: Order Comment: Speci men Type: URINE SPECIMENOrdering Facility: [facility] Address: [address] [place] [address] Performed By: #### 2 4356-8 ####[facility] LABIA [id number] [place] [address] [place] Urobilinogen Ql (U) 0.2 EU/dL Normal 0.2-1.0 EU/dL [facility] Comment on above: Order Comment: Speci men Type: URINE SPECIMENOrdering Facility: [facility] Address: [address] [place] [address] Performed By: #### 2 4356-8 ####[facility] LABIA [id number] [place] [address] [place] WBC LM.HPF (Urine sed) [#/Area] /[HPF] Abnormal 0-5 /HPF [facility] Comment on above: Order Comment: Speci men Type: URINE SPECIMENOrdering Facility: [facility] Address: [address] [facility] [place] [address] Performed By: #### 2 4356-8 ####[facility] LABCLIA [id number] [place] [id number] [facility] [place] CNOVon 01-07-2025 CNOV Office Visit (INTMWS) MIRIAM THOMAS ([id number]) 1955 F Date Time Provider Department 01/07/25 3:40 PM EARL SHEPHERD INTMWS During your visit today, we recorded the following information about you: Pulse Respiration Blood pressure Weight 89/minute 14/minute 130/58 79.9 kg Earl Shepherd MD 01/23/2025 1:20 AM Signed This note was created using [employer]. Subjective HISTORY Miriam Thomas is a 69 year old lady here for Medicare Annual Wellness Visit , yearly exam and follow up appointment. Miriam is a 69-year-old female, with a history of depression, lichen sclerosus, and chronic pain, presenting for a Medicare Annual Wellness Visit. Miriam reports persistent discomfort and pressure in the rectal and vaginal areas, exacerbated by prolonged sitting. She uses a lift chair at home and frequently shifts positions to alleviate discomfort. She has tried various cushions, including a donut pillow, but finds them only partially effective. She denies any prolapse issues. Miriam has experienced multiple health issues since October, starting with an angioplasty on October 10. She subsequently developed pneumonia and COVID-19, leading to a prolonged period of illness. She reports a loss of taste and a significant decrease in appetite during this time. She also reports a recent episode of severe constipation about two weeks ago, which was unresponsive to four days of Miralax. She eventually achieved relief after increasing the dosage as advised by a pharmacist. She attributes the constipation to decreased mobility and plans to continue using Miralax to prevent recurrence. Miriam also notes chronic cloudy urine without associated dysuria or urgency. She took Azo for a few days, but the cloudiness persisted after discontinuation. She is currently taking Wellbutrin in the evening for depression. She was previously on escitalopram but is unsure why she stopped taking it. She reports feeling better in the spring due to increased sunlight exposure. She also uses nystatin powder for intertrigo in skin folds, including under the breasts, and has been using cornstarch to keep these areas dry. She inquires about the use of antiperspirant for this purpose. She follows up with a job spotter, Dr. Barnes, at [facility], who monitors her kidney function and anemia. She reports that her blood glucose levels were elevated while on a steroid for lichen sclerosus but are usually well-controlled. She expresses interest in making her new puppy a therapy dog to help with anxiety when her is not around. She reports feeling like an easy target when alone in public places. PAST MEDICAL HISTORY Diagnosis Date Anxiety Arthritis Depression MARITZA exposure in utero Diabetes mellitus ([facility]) 1986 Diabetic neuropathy ([facility]) Gangrene ([facility]) Heart attack ([facility]) [address] [facility] Herniated disc Hypertension Muscular deconditioning PVD (peripheral vascular disease) 10/2019 S/P BKA (below knee amputation) unilateral, left ([facility]) Sleep apnea cpap Snoring Stroke ([facility]) 11/2004 and 05/2005 x 2, right sided weakness Current Outpatient Medications Medication Sig ondansetron (ZOFRAN) 4 mg tablet Take 1 tablet by mouth every 8 hours as needed for nausea/vomiting. benzonatate (TESSALON PERLE) 100 mg capsule Take 1-2 capsules by mouth three times a day as needed. carvedilol (COREG) 6.25 mg tablet Take 1 tablet by mouth two times a day with meals. hydrALAZINE (APRESOLINE) 50 mg tablet Take 1 tablet by mouth two times a day. Hold for SBP less than 120mm HG gabapentin (NEURONTIN) 400 mg capsule Take 1 capsule by mouth every afternoon AND 2 capsules daily at bedtime. Do all this for 180 days. Saccharomyces boulardii (FLORASTOR) 250 mg capsule Take 1 capsule by mouth two times a day. albuterol HFA (PROVENTIL HFA) 90 mcg/actuation inhaler Inhale 1-2 Puffs as instructed four times a day as needed for wheezing/shortness of breath. fluticasone (FLONASE) 50 mcg/actuation nasal spray Use 2 Sprays in each nostril once daily. Rinse mouth after use. clopidogrel (PLAVIX) 75 mg tablet Take 1 tablet by mouth once daily. dulaglutide (TRULICITY) 4.5 mg/0.5 mL pen injector Inject 4.5 mg subcutaneously one time a week. Gets through [employer]. insulin glargine 100 unit/mL (3 mL) Inject 26 Units subcutaneously every morning. (Basaglar) Patient assistance medication. insulin lispro (HUMALOG KWIKPEN) 100 unit/mL Inject 8 units with breakfast and 4 units with evening meal as directed. Patient assistance medication. atorvastatin (LIPITOR) 40 mg tablet Take 1 tablet by mouth daily at bedtime. For cholesterol. buPROPion XL (WELLBUTRIN XL) 150 mg 24 hr tablet Take 1 tablet by mouth once daily. tamsulosin (FLOMAX) 0.4 mg Take 2 capsules by mouth once daily. Blood-Glucose Sensor (DEXCOM G7 SENSO (more content not included)... Normal [facility] Absolute lymphocyte countOrd ered By: Sultana Leroy on 12-21-2024 Lymphocytes Auto (Unsp spec) [#/Vol] 0.97 10*3/uL 0.83-4.51 [facility] Absolute neutrophil countOrd ered By: Sultana Leroy on 12-21-2024 Neutrophils (Bld) [#/Vol] 7.9 10*3/uL High 2.0-7.7 [facility] Anion gap in Serum or Plasma Ordered By: Sultana Leroy on 12-21-2024 Anion gap [Moles/Vol] 15 mmol/L 5-15 [facility] Automated lymphocyte count a s percentage of total leukocytesOrdered By: Sultana Leroy on 12-21-2024 Lymphocytes/100 WBC Auto (Unsp spec) 10.0 % Low 19-41 [facility] BUN/creatinine ratioOrdered By: Sultana Leroy on 12-21-2024 Urea nitrogen/Creatinine [Mass ratio] 15.9 mg/mg 10-20 [facility] Basophil percentageOrdered B y: Sultana Leroy on 12-21-2024 Basophils/100 WBC (Bld) 0.2 % 0-1 [facility] Bilirubin, totalOrdered By: Sultana Leroy on 12-21-2024 Bilirubin [Mass/Vol] 0.35 mg/dL 0.00-1.30 [facility] CBC W/Diff, Automatedon 11-30 Absolute Lymph 0.97 X10 3/uL Normal 0.83-4.51 [facility] Comment on above: Performed By: #### L 100.0100, L500.4050, L501.2450 #### [facility] [address] [place], [address] Absolute Neut 7.9 X10 3/uL High 2.0-7.7 [facility] Comment on above: Performed By: #### L 100.0100, L500.4050, L501.2450 #### [facility] [address] [place], [address] Basophils/100 WBC (Bld) 0.2 % Normal 0-1 [facility] Comment on above: Performed By: #### L 100.0100, L500.4050, L501.2450 #### [facility] [address] [place], [address] Eosinophils/100 WBC (Bld) 0.1 % Normal 0-5 [facility] Comment on above: Performed By: #### L 100.0100, L500.4050, L501.2450 #### [facility] [address] [place], [address] Erythrocyte distribution width (RBC) [Ratio] 14.2 % Normal 11.6-14.6 [facility] Comment on above: Performed By: #### L 100.0100, L500.4050, L501.2450 #### [facility] [address] [place], [address] Hematocrit (Bld) [Volume fraction] 30.2 % Low 37-47 [facility] Comment on above: Performed By: #### L 100.0100, L500.4050, L501.2450 #### [facility] [address] [place], [address] Hemoglobin (Bld) [Mass/Vol] 9.6 g/dL Low 12.0-15.0 [facility] Comment on above: Performed By: #### L 100.0100, L500.4050, L501.2450 #### [facility] [address] [place], [address] IG% 0.600 Normal 0.0-0.9 [facility] Comment on above: Result Comment: IG% - Immature Granulocytes (promyelocytes, myelocytes and metamyelocytes) > 1% indicates that a LEFT SHIFT is Present. Performed By: #### L 100.0100, L500.4050, L501.2450 #### [facility] [address] [place], [address] Lymphocytes/100 WBC (Bld) 10.0 % Low 19-41 [facility] Comment on above: Performed By: #### L 100.0100, L500.4050, L501.2450 #### [facility] [address] [place], [address] MCH (RBC) [Entitic mass] 28.1 pg Normal 27.0-32.0 [facility] Comment on above: Performed By: #### L 100.0100, L500.4050, L501.2450 #### [facility] [address] [place], [address] MCHC (RBC) [Mass/Vol] 31.8 g/dL Low 32-36 [facility] Comment on above: Performed By: #### L 100.0100, L500.4050, L501.2450 #### [facility] [address] [place], [address] MCV (RBC) [Entitic vol] 88.3 fL Normal 81-99 [facility] Comment on above: Performed By: #### L 100.0100, L500.4050, L501.2450 #### [facility] [address] [place], [address] Monocytes/100 WBC (Bld) 8.2 % Normal 0-10 [facility] Comment on above: Performed By: #### L 100.0100, L500.4050, L501.2450 #### [facility] [address] [place], [address] Neutrophils/100 WBC (Bld) 80.9 % High 47-70 [facility] Comment on above: Performed By: #### L 100.0100, L500.4050, L501.2450 #### [facility] [address] [place], [address] Nucleated RBC (Bld) [#/Vol] 0 10*3/uL Normal 0-5 [facility] Comment on above: Performed By: #### L 100.0100, L500.4050, L501.2450 #### [facility] [address] [place], [address] Platelet mean volume (Bld) [Entitic vol] 9.9 fL Normal 6.2-12.0 [facility] Comment on above: Performed By: #### L 100.0100, L500.4050, L501.2450 #### [facility] [address] [place], [address] Platelets (Bld) [#/Vol] 257 10*3/uL Normal 150-450 [facility] Comment on above: Performed By: #### L 100.0100, L500.4050, L501.2450 #### [facility] [address] [place], [address] RBC (Bld) [#/Vol] 3.42 10*6/uL Low 4.2-5.4 [facility] Comment on above: Performed By: #### L 100.0100, L500.4050, L501.2450 #### [facility] [address] [place], [address] RDW SD 45.8 fl High 35.1-43.9 [facility] Comment on above: Performed By: #### L 100.0100, L500.4050, L501.2450 #### [facility] [address] [place], [address] WBC (Bld) [#/Vol] 9.7 10*3/uL Normal 4.4-11.0 [facility] Comment on above: Performed By: #### L 100.0100, L500.4050, L501.2450 #### [facility] [address] [place], [address] Carbon dioxide, total [Moles /volume] in Central venous bloodOrdered By: Sultana Leroy on 12-21-2024 CO2 [Moles/Vol] 18.3 mmol/L Low 21.0-32.0 [facility] Chloride assayOrdered By: Britnay Leroy on 12-21-2024 Chloride [Moles/Vol] 102 mmol/L 98-108 [facility] Comprehensive Metabolic Prof ilon 12-21-2024 Albumin [Mass/Vol] 3.4 g/dL Normal 3.4-4.8 [facility] Comment on above: Performed By: #### L 100.0100, L500.4050, L501.2450 #### [facility] [address] [place], [address] Albumin/Globulin [Mass ratio] 1.1 {ratio} Normal 0.9-2.4 [facility] Comment on above: Performed By: #### L 100.0100, L500.4050, L501.2450 #### [facility] [address] [place], [address] ALK PHOS 73 U/L Normal 35-104 [facility] [facility] Comment on above: Performed By: #### L 100.0100, L500.4050, L501.2450 #### [facility] [address] [place], [address] ALT [Catalytic activity/Vol] 5 U/L Normal <=34 [facility] Comment on above: Performed By: #### L 100.0100, L500.4050, L501.2450 #### [facility] [address] [place], [address] AST [Catalytic activity/Vol] 15 U/L Normal <=31 [facility] Comment on above: Performed By: #### L 100.0100, L500.4050, L501.2450 #### [facility] [address] [place], [address] Bilirubin [Mass/Vol] 0.35 mg/dL Normal 0.00-1.30 [facility] Comment on above: Performed By: #### L 100.0100, L500.4050, L501.2450 #### [facility] [address] [place], [address] BUN/CRE 15.9 RATIO Normal 10-20 [facility] Comment on above: Performed By: #### L 100.0100, L500.4050, L501.2450 #### [facility] [address] [place], [address] Calcium [Mass/Vol] 9.9 mg/dL Normal 7.6-11.0 [facility] Comment on above: Performed By: #### L 100.0100, L500.4050, L501.2450 #### [facility] [address] [place], [address] Chloride [Moles/Vol] 102 mmol/L Normal 98-108 [facility] Comment on above: Performed By: #### L 100.0100, L500.4050, L501.2450 #### [facility] [address] [place], [address] CO2 [Moles/Vol] 18.3 mmol/L Low 21.0-32.0 [facility] Comment on above: Performed By: #### L 100.0100, L500.4050, L501.2450 #### [facility] [address] [place], [address] Creatinine [Mass/Vol] 1.38 mg/dL High 0.70-1.20 [facility] Comment on above: Performed By: #### L 100.0100, L500.4050, L501.2450 #### [facility] [address] [place], [address] ECRCL 38.66 ml/min Low 50-250 [facility] Comment on above: Performed By: #### L 100.0100, L500.4050, L501.2450 #### [facility] [address] [place], [address] GAP 15 Normal 5-15 [facility] Comment on above: Performed By: #### L 100.0100, L500.4050, L501.2450 #### [facility] [address] [place], [address] GFR/1.73 sq M.predicted among non-blacks MDRD (S/P/Bld) [Vol rate/Area] 42 mL/min/{1.73_m2} Low >60 [facility] Comment on above: Result Comment: mL/m in/1.73m2 CKD-EPI Creatinine Equation (2020) Performed By: #### L 100.0100, L500.4050, L501.2450 #### [facility] [address] [place], [address] Globulin (S) [Mass/Vol] 3.2 g/dL Normal 2.2-4.2 [facility] Comment on above: Performed By: #### L 100.0100, L500.4050, L501.2450 #### [facility] [address] [place], [address] Glucose [Mass/Vol] 143 mg/dL High 70-99 [facility] Comment on above: Performed By: #### L 100.0100, L500.4050, L501.2450 #### [facility] [address] [place], [address] Potassium [Moles/Vol] 4.4 mmol/L Normal 3.3-5.1 [facility] Comment on above: Performed By: #### L 100.0100, L500.4050, L501.2450 #### [facility] [address] [place], [address] Sodium [Moles/Vol] 135 mmol/L Normal 133-145 [facility] Comment on above: Performed By: #### L 100.0100, L500.4050, L501.2450 #### [facility] [address] [place], [address] T PROT 6.5 g/dL Normal 5.9-8.4 [facility] Comment on above: Performed By: #### L 100.0100, L500.4050, L501.2450 #### [facility] [address] [place], [address] Urea nitrogen [Mass/Vol] 22 mg/dL High 4-19 [facility] Comment on above: Performed By: #### L 100.0100, L500.4050, L501.2450 #### [facility] [address] [place], [address] Emergency Department Summary on 12-21-2024 Emergency Department Summary [facility] Medical Records Department [address] [place] [address] Emergency Department Summary 12/21/24 MR#: [id number] Acct: [id number] Name: MIRIAM THOMAS Rep #: [id number] : 1955 69 From: Sultana JOSHI PCP: Dr. Earl Shepherd MD Status:DEP ER Location: ED HPI History of Present Illness Chief Complaint: Nausea/Vomiting Narrative Narrative: Patient presenting today due to nausea and vomiting she has had intermittently over the past 2 weeks. She does have a history of gastroparesis, CKD, HTN, HLD, GERD, and T2DM. She has seen gastroenterology in the past but does not currently follow with them. She has been taking Zofran with minimal relief of her symptoms. She also reports a cough over the last few days, her is currently sick with flulike symptoms. She reports that she has also had a mild cough. She denies fevers, chills, abdominal pain, previous abdominal surgeries, hematemesis, blood in the stool, diarrhea, and urinary symptoms. [facility] Medical History JOSE on CPAP Obstructive sleep apnea Constitutional obesity History of stroke (2004) Abnormal EKG Anxiety Recurrent major depression in partial remission Reactive depression Lichen sclerosus Genital herpes simplex type 1 infection Dupuytren's disease of palm Proliferative diabetic retinopathy associated with type 2 diabetes mellitus Gastroparesis GERD (gastroesophageal reflux disease) Peripheral vascular disease Hyperlipidemia Essential hypertension Acute pain of left shoulder Carpal tunnel syndrome, bilateral Uncontrolled type 2 diabetes with neuropathy Balance problem Hemiparesis affecting dominant side as late effect of stroke Home Medications ???Medication ???Instructions ???Recorded ???Last Taken ???Type atorvastatin 20 mg tablet 20 mg PO QHS cholesterol 09/30/19 01/02/21 History biotin 5,000 mcg disintegrating 5,000 mcg PO QHS dry skin 09/30/19 01/02/21 History tablet cholecalciferol (vitamin D3) 50 2,000 unit PO DAILY supplement 01/02/21 History mcg (2,000 unit) tablet clobetasol 0.05 % topical ointment 1 applic topical DAILY PRN vagin al 09/30/19 01/02/21 History bleeding glucosamine 750 [id number] 1 tab PO DAILY joint pain 9 01/02/21 History no.1 625 mg-C 30 rx-tewl-nroy tablet (Glucosamine-Chondro itin Complex) nitroglycerin 0.4 mg sublingual 0.4 mg sublingual Q5-15M PRN CHEST 09/30/19 Unknown History tablet PAIN valacyclovir 500 mg tablet 500 mg PO DAILY herpes simplex 1 1 01/02/21 History (Valtrex) gabapentin 400 mg capsule 400 mg PO DAILY neuropathy 0 08/05/20 History cyanocobalamin (vitamin B-12) 500 1,000 mcg PO DAILY@0800 supplemen t 05/14/20 01/02/21 History mcg tablet insulin lispro 100 unit/mL See Protocol SQ UD 05/14/20 Unknow n History subcutaneous pen zinc 50 mg tablet 50 mg PO DAILY supplement 05/14/20 01/02/21 History escitalopram oxalate 20 mg tablet 20 mg PO DAILY mood stabilizer 01/02/21 History gabapentin 400 mg capsule 1,200 mg PO QHS neuropathy 0 01/02/21 History ascorbic acid (vitamin C) 1,000 mg 1,000 mg PO DAILY supplement #30 01/09/21 Unknown Rx tablet tabs aspirin 81 mg tablet,delayed 81 mg PO DAILY ##30 01/09/21 Unkno wn Rx release ferrous sulfate 325 mg (65 mg 325 mg PO DAILY@1200 #60 tabs 12/30 10/21 Unknown Rx iron) tablet furosemide 40 mg tablet 40 mg PO DAILY #10 tabs 01/09/21 U nknown Rx hydralazine 50 mg tablet 50 mg PO BID #60 tabs 01/09/21 Unk nown Rx insulin glargine 100 unit/mL (3 30 unit (0.3 mL) subcut DAILY 12/3001/02/21 Rx mL) subcutaneous pen insulin #0 mL nystatin 100,000 unit/gram topical 1 applic topical BID #1 BOTTLE 0 01/09/21 Unknown Rx powder pantoprazole 40 mg tablet,delayed 40 mg PO DAILY #30 tabs 01/09/21 Unknown Rx release tamsulosin 0.4 mg capsule 0.4 mg PO DAILY #30 CAPSULES 01/09 Unknown Rx ciprofloxacin HCl 250 mg tablet 250 mg PO BID 5 days #10 tabs 12/31 04/20 Unknown Rx (Cipro) oxycodone-acetaminop hen 5 mg-325 2 tab PO Q8H PRN pain 3 days #10 0 01/25/21 Unknown Rx mg tablet (Percocet) tabs cetirizine 10 mg capsule (All Day 10 mg PO DAILY PRN 02/10/21 Unkno wn History Allergy (cetirizine)) carvedilol 6.25 mg tablet 6.25 mg PO BID #180 tabs 02/25/21 Unknown Rx apixaban 5 mg tablet 5 mg PO BID blood thinner #180 tab s 05/30/21 Unknown Rx metoclopramide HCl 10 mg tablet 10 mg PO Q6H PRN nausea and Unknown Rx (Reglan) vomiting 5 days #20 tabs Allergy/AdvReac Type Severity Reaction Status Date / Time meloxicam AdvReac Intermediate GI upset Verified 12/21/24 14:03 Sulfa (Sulfonamide AdvReac Intermediate Swelli (more content not included)... Normal [facility] Eosinophil percentageOrdered By: Sultana Leroy on 12-21-2024 Eosinophils/100 WBC (Bld) 0.1 % 0-5 [facility] Erythrocyte distribution wid th ratioOrdered By: Sultana Leroy on 12-21-2024 Erythrocyte distribution width (RBC) [Ratio] 14.2 % 11.6-14.6 [facility] Erythrocyte distribution wid th standard deviationOrdered By: Sultana Leroy on 12-21-2024 Erythrocyte distribution width (RBC) [Entitic vol] 45.8 fL High 35.1-43.9 [facility] Erythrocyte distribution width (RBC) [Ratio] 45.8 fl High 35.1-43.9 [facility] Estimation of creatinine lisa aranceOrdered By: Sultana Leroy on 12-21-2024 Estimated Creatinine Clearance Calc 38.66 ml/min Low 50-250 [facility] GFR/1.73 sq M.predicted jenaro g non-blacks MDRD (S/P/Bld) [Vol rate/Area]Ordered By: Sultana Leroy on 12-21-2024 Estimated GFR (MDRD) Non-Af Amer 42 Low >60 [facility] Comment on above: mL/min/1.73m2 CKD-EP I Creatinine Equation (2020) Glomerular filtration rate ( GFR) estimation/1.73 sq m using serum, plasma, or whole bOrdered By: Sultana Leroy on 12-21-2024 GFR/1.73 sq M.predicted among non-blacks MDRD (S/P/Bld) [Vol rate/Area] 42 mL/min/{1.73_m2} Low >60 [facility] Comment on above: mL/min/1.73m2 CKD-EP I Creatinine Equation (2020) Hematocrit Auto (Bld) [Volum e fraction]Ordered By: Sultana Leroy on 12-21-2024 Hematocrit (Bld) [Volume fraction] 30.2 % Low 37-47 [facility] Hemoglobin measurementOrdere d By: Sultana Leroy on 12-21-2024 Hemoglobin (Bld) [Mass/Vol] 9.6 g/dL Low 12.0-15.0 [facility] Immature granulocytes/100 WB C Auto (Bld)Ordered By: Sultana Leroy on 12-21-2024 Immature granulocytes/100 WBC (Bld) 0.600 % 0.0-0.9 [facility] Comment on above: IG% - Immature Granu locytes (promyelocytes, myelocytes and metamyelocytes) > 1% indicates that a LEFT SHIFT is Present. Influenza virus A and B and SARS-CoV-2 (COVID-19) and Respiratory syncytial virus RNAOrdered By: Sultana Leroy on 12-21-2024 SARS-CoV-2 (COVID-19) RNA SOFY+probe Ql (Unsp spec) [facility] - Chemistry and C hemistry - challengeOrdered By: Sultana Leroy on 12-21-2024 AST [Catalytic activity/Vol] 15 U/L <32 [facility] Lipaseon 12-21-2024 Lipase [Catalytic activity/Vol] 22 U/L Normal 13-75 [facility] Comment on above: Result Comment: Promies alvarez note: LIPASE revised reference range effective 23. New Lipase methodology. Expected to produce lower values than the previous assay method. NEW Reference Range: 13 - 75 U/L Performed By: #### L 100.0100, L500.4050, L501.2450 #### [facility] [address] [place], [address] Lipase measurementOrdered By : Sultana Leroy on 12-21-2024 Lipase [Catalytic activity/Vol] 22 U/L 13-75 [facility] Comment on above: Please note:LIPASE r evised reference range effective 23. New Lipase methodology. Expected to produce lower values than the previous assay method. NEW Reference Range: 13 - 75 U/L Lymphocytes Auto (Unsp spec) [#/Vol]Ordered By: Sultana Leroy on 12-21-2024 Lymphocytes (Bld) [#/Vol] 0.97 10*3/uL 0.83-4.51 [facility] Lymphocytes/100 WBC Auto (Un sp spec)Ordered By: Sultana Leroy on 12-21-2024 Lymphocytes/100 WBC (Bld) 10.0 % Low 19-41 [facility] M100.678on 12-21-2024 M100.678 Pending SARS-CoV-2 (COVID 19) A Positive A INFLUENZA A Negative INFLUENZA B Negative RSV PCR Negative Normal [facility] Comment on above: Performed By: #### M 100.678 #### [facility] [address] [place], [address] MCV (mean corpuscular volume ) determinationOrdered By: Sultana Leroy on 12-21-2024 MCV (RBC) [Entitic vol] 88.3 fL 81-99 [facility] Mean corpuscular hemoglobin (MCH) determinationOrdered By: Sultana Leroy on 12-21-2024 MCH (RBC) [Entitic mass] 28.1 pg 27.0-32.0 [facility] Mean corpuscular hemoglobin concentration (MCHC) determinationOrdered By: Sultana Leroy on 12-21-2024 MCHC (RBC) [Mass/Vol] 31.8 g/dL Low 32-36 [facility] Mean platelet volume determi nationOrdered By: Sultana Leroy on 12-21-2024 Platelet mean volume (Bld) [Entitic vol] 9.9 fL 6.2-12.0 [facility] Monocyte percentageOrdered B y: Sultana Leroy on 12-21-2024 Monocytes/100 WBC (Bld) 8.2 % 0-10 [facility] Neutrophil percentageOrdered By: Sultana Leroy on 12-21-2024 Neutrophils/100 WBC (Bld) 80.9 % High 47-70 [facility] Nucleated red blood cell per centageOrdered By: Sultana Leroy on 12-21-2024 Nucleated RBC/100 WBC (Bld) [Ratio] 0 % 0-5 [facility] Platelet countOrdered By: Britany Leroy on 12-21-2024 Platelets (Bld) [#/Vol] 257 10*3/uL 150-450 [facility] Potassium (Unsp spec) [Mass/ Vol]Ordered By: Sultana Leroy on 12-21-2024 Potassium [Moles/Vol] 4.4 mmol/L 3.3-5.1 [facility] Potassium measurement (mass/ volume)Ordered By: Sultana Leroy on 12-21-2024 Potassium (Unsp spec) [Mass/Vol] 4.4 mmol/L 3.3-5.1 [facility] RBC Auto (Bld) [#/Vol]Ordere d By: Sultana Leroy on 12-21-2024 RBC (Bld) [#/Vol] 3.42 10*6/uL Low 4.2-5.4 [facility] Serum creatinine measurement (mass/volume)Ordered By: Sultana Leroy on 12-21-2024 Creatinine [Mass/Vol] 1.38 mg/dL High 0.70-1.20 [facility] Serum globulin measurementOr dered By: Sultana Leroy on 12-21-2024 Globulin (S) [Mass/Vol] 3.2 g/dL 2.2-4.2 [facility] Serum glucose measurement (m ass/volume)Ordered By: Sultana Leroy on 12-21-2024 Glucose [Mass/Vol] 143 mg/dL High 70-99 [facility] Serum or plasma alanine gay otransferase (ALT) measurementOrdered By: Sultana Leroy on 12-21-2024 ALT [Catalytic activity/Vol] 5 U/L <35 [facility] Serum or plasma albumin ishaan urement (mass/volume)Ordered By: Sultana Leroy on 12-21-2024 Albumin [Mass/Vol] 3.4 g/dL 3.4-4.8 [facility] Serum or plasma albumin/glob ulin mass ratioOrdered By: Sultana Leroy on 12-21-2024 Albumin/Globulin [Mass ratio] 1.1 {ratio} 0.9-2.4 [facility] Serum or plasma alkaline carolyn sphatase measurementOrdered By: Sultana Leroy on 12-21-2024 ALP [Catalytic activity/Vol] 73 U/L 35-104 [facility] Serum or plasma calcium ishaan urement (mass/volume)Ordered By: Sultana Leroy on 12-21-2024 Calcium [Mass/Vol] 9.9 mg/dL 7.6-11.0 [facility] Serum or plasma urea nitroge n measurement (mass/volume)Ordered By: Sultana Leroy on 12-21-2024 Urea nitrogen [Mass/Vol] 22 mg/dL High 4-19 [facility] Sodium levelOrdered By: Rashid Leroy on 12-21-2024 Sodium [Moles/Vol] 135 mmol/L 133-145 [facility] Total proteinOrdered By: Cruzito Leroy on 12-21-2024 Protein [Mass/Vol] 6.5 g/dL 5.9-8.4 [facility] White blood cell (WBC) count Ordered By: Sultana Leroy on 12-21-2024 WBC (Bld) [#/Vol] 9.7 10*3/uL 4.4-11.0 [facility] CNOVon 12-05-2024 CNOV Office Visit ([facility]) MIRIAM THOMAS ([id number]) 1955 F Date Time Provider Department 12/05/24 9:15 AM ODIN DOBBINS During your visit today, we recorded the following information about you: Odin Dobbins MD 12/27/2024 7:02 PM Signed Duplicate encounter Allergies As of Date: 12/05/2024 Noted Allergy Reaction MELOXICAM 06/22/2016 8 - GI Upset SULFA (SULFONAMIDE ANTIBIOTICS) 10/15/2014 7 - Swelling Comments: Facial swelling, shortness of breath. Date Reviewed: 12/05/2024 Reviewed by: Asia Mcginnis O[facility] - Fully Assessed Reason for Visit: Established Patient [175] Primary Visit Diagnosis:PVD (peripheral vascular disease) [I73.9] Prescriptions as of 12/27/2024 - ondansetron (ZOFRAN) 4 mg tablet Take 1 tablet by mouth every 8 hours as needed for nausea/vomiting. - benzonatate (TESSALON PERLE) 100 mg capsule Take 1-2 capsules by mouth three times a day as needed. - carvedilol (COREG) 6.25 mg tablet Take 1 tablet by mouth two times a day with meals. - hydrALAZINE (APRESOLINE) 50 mg tablet Take 1 tablet by mouth two times a day. Hold for SBP less than 120mm HG - gabapentin (NEURONTIN) 400 mg capsule Take 1 capsule by mouth every afternoon AND 2 capsules daily at bedtime. Do all this for 180 days. - Saccharomyces boulardii (FLORASTOR) 250 mg capsule Take 1 capsule by mouth two times a day. - albuterol HFA (PROVENTIL HFA) 90 mcg/actuation inhaler Inhale 1-2 Puffs as instructed four times a day as needed for wheezing/shortness of breath. - fluticasone (FLONASE) 50 mcg/actuation nasal spray Use 2 Sprays in each nostril once daily. Rinse mouth after use. - clopidogrel (PLAVIX) 75 mg tablet Take 1 tablet by mouth once daily. - dulaglutide (TRULICITY) 4.5 mg/0.5 mL pen injector Inject 4.5 mg subcutaneously one time a week. Gets through [facility]. - insulin glargine 100 unit/mL (3 mL) Inject 26 Units subcutaneously every morning. (Basaglar) Patient assistance medication. - insulin lispro (HUMALOG KWIKPEN) 100 unit/mL Inject 8 units with breakfast and 4 units with evening meal as directed. Patient assistance medication. - atorvastatin (LIPITOR) 40 mg tablet Take 1 tablet by mouth daily at bedtime. For cholesterol. - buPROPion XL (WELLBUTRIN XL) 150 mg 24 hr tablet Take 1 tablet by mouth once daily. - tamsulosin (FLOMAX) 0.4 mg Take 2 capsules by mouth once daily. - Blood-Glucose Sensor (Planspot G7 SENSOR) jackson Apply new sensor every ten (10) days. - ciclopirox (LOPROX) 0.77 % cream Apply to affected area two times a day. For 2 to 4 weeks till rash resolves. May treat recurrences for rash under abdominal pannus - acyclovir (ZOVIRAX) 400 mg tablet Take 1 tablet by mouth two times a day. - blood sugar diagnostic (BLOOD GLUCOSE TEST) test strip Test blood sugar(s) 3 to 4 times daily. Dx: Other DM Code E11.51 Insulin: Yes One touch or Accucheck strips or strips covered by her insurance. - Lancets Test blood sugar(s) 3 to 4 times daily. Dx: Other DM Code E11.51 Insulin: Yes - clobetasol (TEMOVATE) 0.05 % ointment Apply nightly to affected area for 8-12 weeks, then 1-3x weekly for maintenance - pantoprazole DR (PROTONIX) 40 mg tablet Take 1 tablet by mouth once daily. - nystatin (MYCOSTATIN) powder Apply 1 application to affected area twice daily as needed. For prevention - B complex w-C no.20/folic acid (B COMPLEX WITH C 20-FOLIC ACID ORAL) Take 1 tablet by mouth once daily. - Magnesium Oxide 500 mg tab Take 1 tablet by mouth once daily. For constipation - Blood-Glucose Meter,Continuous (DEXCOM G7 ENVELOPE SEALER) misc Use to check blood sugar at least four (4) times daily. - nitroglycerin sublingual (NITROQUICK) 0.4 mg SL tablet Dissolve 1 tablet under the tongue as needed. As directed - insulin needles, DISPOSABLE, (PEN NEEDLE) 31 gauge x 5/16 Use one needle per dose. 5 per day. - bacitracin zinc 500 unit/gram ointment Apply to affected area twice daily. As directed for affected area till healed - cetirizine (ZYRTEC) 10 mg tablet Take 1 tablet by mouth once daily as needed. - aspirin, enteric coated (ASPIRIN, ENTERIC COATED) 81 mg EC tablet Take 1 tablet by mouth once daily. - cyanocobalamin, vitamin B-12, 5,000 mcg subl Dissolve under the tongue once daily. - ascorbic acid, vitamin C, (VITAMIN C) 500 mg tablet Take 1,000 mg by mouth once daily. - polyethylene glycol 3350 (MIRALAX) 17 gram/dose powder Take 17 g by mouth as directed. 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 Normal [facility] CNOV Office Visit ([facility]) MIRIAM THOMAS ([id number]) 1955 F Date Time Provider Department 12/05/24 9:00 AM ODIN DOBBINS During your visit today, we recorded the following information about you: Pulse Blood pressure 71/minute 118/52 Odin Dobbins MD 12/27/2024 6:19 PM Signed Surgery/Procedure Date: 10/10/2024 Surgeon(s)/Procedura list(s) and Tubular Stock Glass Bulb Machine Former(s): Surgeons and Role: * Odin Dobbins MD - Primary INTERVENTIONAL PROCEDURE: Ultrasound-guided left common femoral access Aorta and pelvic angiogram with CO2, radiographic interpretation Right lower extremity angiogram with CO2, radiographic interpretation Balloon angioplasty of right Mid popliteal artery with 6x60 [facility] ESTABLISHED CLINIC VISIT Miriam Thomas [id number] HISTORY OF PRESENT ILLNESS: Ms. Thomas is a 69 year old female seen in clinic today for follow up for PAD s/p RLE angiogram with popliteal DCB. Depression has improved from 25 to 52 status post. No new rest pain or wounds. Improved color and warmth to foot. Vascular health status: Antiplatelet / Anticoagulation: ASA 81 mg and Clopidogrel (Plavix) 75 mg Statin or PCSK9i: atorvastatin Past Vascular Surgeries: Recent Surgeries this specialty 10/10/2024 (8w) ANGIOGRAM EXTREMITY UNILATERAL RADIOLOGICAL (Right) Odin Dobbins MD - Posted 07/20/2020 (4yr) AMPUTATION BELOW KNEE EXTREMITY LOWER (Left) Stacy Salomon; Livier Garza (Res); Jeanmarie Senior (Res) - Posted 11/04/2019 (5yr) EVACUATION CLOT ARTERIAL WITH INCISION LOWER EXTREMITY (Left), EMBOLECTOMY AORTOILIAC ARTERY VIA LEG INCISION (Left), REVASC ENDOVASC PERCUT FEM/POP ART W/TRANS STENT PLAC?T W/ANGIO/W/IN THE SAME VESSEL WHEN PERFORM (Left), TRANSCATHETER THERAPY ARTERIAL INFUSION FOR THROMBOLYSIS OTHER THAN CORONARY W/ RADIOLOGICAL SUPERVISION/INTERPRE TATION INITIAL TREATMENT DAY (Left), ANGIOGRAM EXTREMITY BILATERAL RADIOLOGICAL (Left), AORTOGRAM ABDOMINAL (Left) Mart Zavaleta - Posted MEDICATIONS: carvedilol (COREG) 6.25 mg tablet Take 1 tablet by mouth two times a day with meals. hydrALAZINE (APRESOLINE) 50 mg tablet Take 1 tablet by mouth two times a day. Hold for SBP less than 120mm HG gabapentin (NEURONTIN) 400 mg capsule Take 1 capsule by mouth every afternoon AND 2 capsules daily at bedtime. Do all this for 180 days. benzonatate (TESSALON PERLE) 100 mg capsule Take 1-2 capsules by mouth three times a day as needed. albuterol HFA (PROVENTIL HFA) 90 mcg/actuation inhaler Inhale 1-2 Puffs as instructed four times a day as needed for wheezing/shortness of breath. fluticasone (FLONASE) 50 mcg/actuation nasal spray Use 2 Sprays in each nostril once daily. Rinse mouth after use. clopidogrel (PLAVIX) 75 mg tablet Take 1 tablet by mouth once daily. dulaglutide (TRULICITY) 4.5 mg/0.5 mL pen injector Inject 4.5 mg subcutaneously one time a week. Gets through [employer] [facility]. insulin glargine 100 unit/mL (3 mL) Inject 26 Units subcutaneously every morning. (Basaglar) Patient assistance medication. insulin lispro (HUMALOG KWIKPEN) 100 unit/mL Inject 8 units with breakfast and 4 units with evening meal as directed. Patient assistance medication. atorvastatin (LIPITOR) 40 mg tablet Take 1 tablet by mouth daily at bedtime. For cholesterol. buPROPion XL (WELLBUTRIN XL) 150 mg 24 hr tablet Take 1 tablet by mouth once daily. tamsulosin (FLOMAX) 0.4 mg Take 2 capsules by mouth once daily. Blood-Glucose Sensor (Planspot G7 SENSOR) jackson Apply new sensor every ten (10) days. ciclopirox (LOPROX) 0.77 % cream Apply to affected area two times a day. For 2 to 4 weeks till rash resolves. May treat recurrences for rash under abdominal pannus acyclovir (ZOVIRAX) 400 mg tablet Take 1 tablet by mouth two times a day. blood sugar diagnostic (BLOOD GLUCOSE TEST) test strip Test blood sugar(s) 3 to 4 times daily. Dx: Other DM Code E11.51 Insulin: Yes One touch or Accucheck strips or strips covered by her insurance. Lancets Test blood sugar(s) 3 to 4 times daily. Dx: Other DM Code E11.51 Insulin: Yes clobetasol (TEMOVATE) 0.05 % ointment Apply nightly to affected area for 8-12 weeks, then 1-3x weekly for maintenance pantoprazole DR (PROTONIX) 40 mg tablet Take 1 tablet by mouth once daily. nystatin (MYCOSTATIN) powder Apply 1 application to affected area twice daily as needed. For prevention B complex w-C no.20/folic acid (B COMPLEX WITH C 20-FOLIC ACID ORAL) Take 1 tablet by mouth once daily. Magnesium Oxide 500 mg tab Take 1 tablet by mouth once daily. For constipation Blood-Glucose Meter,Continuous (DEXCOM G7 ENVELOPE SEALER) misc Use to check blood sugar at least four (4) times daily. nitroglycerin sublingual (NITROQUICK) 0.4 mg SL tablet Dissolve 1 tablet under the tongue as needed. As directed insulin needles, DISPOSABLE, (PEN NEEDLE) 31 gauge x 5/16 (more content not included)... Normal [facility] C-REACTIVE PROTEINon 025 CRP [Mass/Vol] 1.9 mg/dL High NINF - 0.9 mg/dL [facility] CBC panel Auto (Bld)on 11-20 Erythrocyte distribution width (RBC) [Ratio] 15 % 11.5 - 15.0 % [facility] Hematocrit (Bld) [Volume fraction] 30.6 % Low 36.0 - 46.0 % [facility] Hemoglobin (Bld) [Mass/Vol] 9.2 g/dL Low 11.5 - 15.5 g/dL [facility] Interpretation and review of laboratory results Abnormal [facility] MCH (RBC) [Entitic mass] 27.8 pg 26.0 - 34.0 pg [facility] MCHC (RBC) [Mass/Vol] 30.1 g/dL Low 30.5 - 36.0 g/dL [facility] MCV (RBC) [Entitic vol] 92.4 fL 80.0 - 100.0 fL [facility] Nucleated RBC (Bld) [#/Vol] NINF [facility] Platelet mean volume (Bld) [Entitic vol] 10.4 fL 9.0 - 12.7 fL [facility] Platelets (Bld) [#/Vol] 230 10*3/uL [facility] RBC (Bld) [#/Vol] 3.31 10*6/uL Low 3.90 - 5.2 0 m/uL [facility] WBC (Bld) [#/Vol] 8.43 10*3/uL [facility] Erythrocyte distribution width (RBC) [Ratio] 15.0 % Normal 11.5-15.0 [facility] Comment on above: Order Comment: Speci men Type: BLOOD SPECIMENOrdering Facility: [facility] Address: [address] [place] [address] Performed By: #### 5 8410-2 ####[facility] LABORATORYCLIA [id number] [address] OF [facility] Hematocrit (Bld) [Volume fraction] 30.6 % Low 36.0-46.0 [facility] Comment on above: Order Comment: Speci men Type: BLOOD SPECIMENOrdering Facility: [facility] Address: [address] [place] [address] Performed By: #### 5 8410-2 ####[facility] LABORATORYCLIA [id number] [address] [place] Hemoglobin (Bld) [Mass/Vol] 9.2 g/dL Low 11.5-15.5 [facility] Comment on above: Order Comment: Speci men Type: BLOOD SPECIMENOrdering Facility: [facility] Address: [address] [place] [address] Performed By: #### 5 8410-2 ####[facility] LABORATORYCLIA [id number] [address] [place] MCH (RBC) [Entitic mass] 27.8 pg Normal 26.0-34.0 [facility] Comment on above: Order Comment: Speci men Type: BLOOD SPECIMENOrdering Facility: [facility] Address: [address] [place] [address] Performed By: #### 5 8410-2 ####[facility] LABORATORYCLIA [id number] [address] [place] MCHC (RBC) [Mass/Vol] 30.1 g/dL Low 30.5-36.0 [facility] Comment on above: Order Comment: Speci men Type: BLOOD SPECIMENOrdering Facility: [facility] Address: [address] [place] [address] Performed By: #### 5 8410-2 ####[facility] LABORATORYCLIA [id number] [address] MCV (RBC) [Entitic vol] 92.4 fL Normal 80.0-100.0 [facility] Comment on above: Order Comment: Speci men Type: BLOOD SPECIMENOrdering Facility: [facility] Address: [address] [place] [address] Performed By: #### 5 8410-2 ####[facility] LABORATORYCLIA [id number] [address] OF [place] Nucleated RBC (Bld) [#/Vol] 10*3/uL Normal <0.01 [facility] Comment on above: Order Comment: Speci men Type: BLOOD SPECIMENOrdering Facility: [facility] Address: [address] [place] [address] Performed By: #### 5 8410-2 ####[facility] LABORATORYCLIA [id number] [address] Platelet mean volume (Bld) [Entitic vol] 10.4 fL Normal 9.0-12.7 [facility] Comment on above: Order Comment: Speci men Type: BLOOD SPECIMENOrdering Facility: [facility] Address: [address] [place] [address] Performed By: #### 5 8410-2 ####[facility] LABORATORYCLIA [id number] [address] [place] Platelets (Bld) [#/Vol] 230 10*3/uL Normal 150-400 [facility] Comment on above: Order Comment: Speci men Type: BLOOD SPECIMENOrdering Facility: [facility] Address: [address] [place] [address] Performed By: #### 5 8410-2 ####[facility] LABORATORYCLIA [id number] [address] [place] RBC (Bld) [#/Vol] 3.31 10*6/uL Low 3.90-5.20 [facility] Comment on above: Order Comment: Specana maria hess Type: BLOOD SPECIMENOrdering Facility: [facility] Address: [address] [place], [place] [id number] Performed By: #### 5 8410-2 ####[facility] LABORATORYCLIA [id number] [address] OF [facility] WBC (Bld) [#/Vol] 8.43 10*3/uL Normal 3.70-11.00 [facility] Comment on above: Order Comment: Specana maria hess Type: BLOOD SPECIMENOrdering Facility: [facility] Address: [address] [id number] Performed By: #### 5 8410-2 ####[facility] LABORATORYCLIA [id number] [place] [id number] [facility] CNOVon 11-20-2024 CNOV Office Visit ([id number]) MIRIAM THOMAS ([id number]) 1955 F Date Time Provider Department 11/20/24 3:15 PM LETI ROGER [id number] During your visit today, we recorded the following information about you: Respiration Weight Height 18/minute 82.1 kg 1.575 m Leti Roger DPM 11/20/2024 5:30 PM Signed Chief Complaint: Right 2nd digit wound/discoloration HPI: This 69 year old female with PMH indicated below presents for follow up right foot. Patient has missed or cancelled last appointments due to weather and then pneumonia. States that did have surgery with vascular, Dr Dobbins on 10/10/24 with balloon angioplasty of the popliteal right LE. States that foot has been improving since that time. Coloration has improved. Did have MRI completed. States that was on a couple rounds of antibiotics for her pneumonia. States she has been ambulating in normal shoe gear. She denies constitutional symptoms at this time. No other pedal complaints. Last HgbA1c% is 5.7% PCP: Earl Shepherd MD: PAST MEDICAL HISTORY Diagnosis Date Anxiety Arthritis Depression MARITZA exposure in utero Diabetes mellitus ([facility]) 1986 Diabetic neuropathy ([facility]) Gangrene ([facility]) Heart attack ([facility]) [address] [employer] [address] Adalberto Power [place] Herniated disc Hypertension Muscular deconditioning PVD (peripheral vascular disease) ([facility]) 10/2019 S/P BKA (below knee amputation) unilateral, left ([facility]) Sleep apnea cpap Snoring Stroke ([facility]) 11/2004 and 05/2005 x 2, right sided weakness : Current Outpatient Medications Medication Sig carvedilol (COREG) 6.25 mg tablet Take 1 tablet by mouth two times a day with meals. hydrALAZINE (APRESOLINE) 50 mg tablet Take 1 tablet by mouth two times a day. Hold for SBP less than 120mm HG gabapentin (NEURONTIN) 400 mg capsule Take 1 capsule by mouth every afternoon AND 2 capsules daily at bedtime. Do all this for 180 days. guaifenesin/pseudoep hedrne HCl (MUCINEX D ORAL) Take by mouth. Saccharomyces boulardii (FLORASTOR) 250 mg capsule Take 1 capsule by mouth two times a day. predniSONE (DELTASONE) 10 mg tablet Take 40 mg x 3 days, 20 mg x 3 days, 10 mg x 3 days. Take with food, once daily benzonatate (TESSALON PERLE) 100 mg capsule Take 1-2 capsules by mouth three times a day as needed. albuterol HFA (PROVENTIL HFA) 90 mcg/actuation inhaler Inhale 1-2 Puffs as instructed four times a day as needed for wheezing/shortness of breath. fluticasone (FLONASE) 50 mcg/actuation nasal spray Use 2 Sprays in each nostril once daily. Rinse mouth after use. clopidogrel (PLAVIX) 75 mg tablet Take 1 tablet by mouth once daily. dulaglutide (TRULICITY) 4.5 mg/0.5 mL pen injector Inject 4.5 mg subcutaneously one time a week. Gets through [employer]. insulin glargine 100 unit/mL (3 mL) Inject 26 Units subcutaneously every morning. (Basaglar) Patient assistance medication. insulin lispro (HUMALOG KWIKPEN) 100 unit/mL Inject 8 units with breakfast and 4 units with evening meal as directed. Patient assistance medication. escitalopram oxalate (LEXAPRO) 20 mg tablet Take 1 tablet by mouth once daily. atorvastatin (LIPITOR) 40 mg tablet Take 1 tablet by mouth daily at bedtime. For cholesterol. buPROPion XL (WELLBUTRIN XL) 150 mg 24 hr tablet Take 1 tablet by mouth once daily. tamsulosin (FLOMAX) 0.4 mg Take 2 capsules by mouth once daily. Blood-Glucose Sensor (DEXCOM G7 SENSOR) jackson Apply new sensor every ten (10) days. ciclopirox (LOPROX) 0.77 % cream Apply to affected area two times a day. For 2 to 4 weeks till rash resolves. May treat recurrences for rash under abdominal pannus acyclovir (ZOVIRAX) 400 mg tablet Take 1 tablet by mouth two times a day. blood sugar diagnostic (BLOOD GLUCOSE TEST) test strip Test blood sugar(s) 3 to 4 times daily. Dx: Other DM Code E11.51 Insulin: Yes One touch or Accucheck strips or strips covered by her insurance. Lancets Test blood sugar(s) 3 to 4 times daily. Dx: Other DM Code E11.51 Insulin: Yes clobetasol (TEMOVATE) 0.05 % ointment Apply nightly to affected area for 8-12 weeks, then 1-3x weekly for maintenance pantoprazole DR (PROTONIX) 40 mg tablet Take 1 tablet by mouth once daily. nystatin (MYCOSTATIN) powder Apply 1 application to affected area twice daily as needed. For prevention B complex w-C no.20/folic acid (B COMPLEX WITH C 20-FOLIC ACID ORAL) Take 1 tablet by mouth once daily. Magnesium Oxide 500 mg tab Take 1 tablet by mouth once daily. For constipation Blood-Glucose Meter,Continuous (DEXCOM G7 ENVELOPE SEALER) [facility] Use to check blood sugar at least four (4) times daily. nitroglycerin sublingual (NITROQUICK) 0.4 mg SL tablet Dissolve 1 tablet under the tongue as needed. As directed insulin needles, DISPOSABLE, (PEN NEEDLE) 31 gauge x 5/16 Use one needle per dose. 5 per day. bacitracin zinc 500 unit/gram ointment Apply to affected area twice (more content not included)... Normal [facility] CRP [facility]20[facility] CRP [Mass/Vol] 1.9 mg/dL High <0.9 [facility] Comment on above: Order Comment: Speci men Type: BLOOD SPECIMEN [facility] Address: [address] [place] [address] Performed By: #### 1 988-5 #### [facility] CLIA [id number] [address] [place], [place] [id number] [place] [address] [place] OF [facility] CRP [Mass/Vol]on 11-20-2024 Interpretation and review of laboratory results Abnormal [facility] ESR Westergren method (Bld) [Velocity]on 11-20-2024 ESR (Bld) [Velocity] 27 mm/h High 0-20 [facility] Comment on above: Order Comment: Speci men Type: BLOOD SPECIMEN [facility] Address: [address] [place] [address] Performed By: #### 4 537-7 #### [facility] CLIA [id number] [address] [place] [address] [place] XR Foot - right AP and Later al and obliqueon 11-20-2024 [facility] Radiology Study observation (narrative) [facility] 34-YF-Addusec DOrdered By: Dank Barnes on 11-12-2024 Vitamin D 25-Hydroxy 35.4 ng/mL [facility] Comment on above: Vitamin D 25(OH) Sta tus Range Deficiency <20 ng/mL (50nmol/L) Insufficiency 20 - 30 ng/mL (50 - 75 nmol/L) Sufficiency 30 - 100 ng/mL (75 - 250 nmol/L) Toxicity >100 ng/mL (>250 nmol/L) Blood urea nitrogen (BUN)/cr eatinine ratioOrdered By: Sharon Barnes on 11-12-2024 Urea nitrogen/Creatinine [Mass ratio] 26.0 mg/mg High 07-20 [facility] Carbon dioxide measurementOr dered By: Sharon Barnes on 11-12-2024 CO2 [Moles/Vol] 26.0 mmol/L 21.0-32.0 [facility] Chloride measurementOrdered By: Sharon Barnes on 11-12-2024 Chloride [Moles/Vol] 110 mmol/L High 98-107 [facility] Estimated glomerular filtrat ion rate (GFR) AmericanOrdered By: Sharon Barnes on 11-12-2024 Estimated GFR (MDRD) Amer 46 mL/min Low >60 [facility] Comment on above: GFR Calc Glomerular filtration rate ( GFR) estimationOrdered By: Sharon Barnes on 11-12-2024 Estimated GFR (MDRD) Non-Af Amer 38 mL/min Low >60 [facility] Comment on above: Non- GFR Calc GFR/1.73 sq M.predicted among non-blacks MDRD (S/P/Bld) [Vol rate/Area] 38 mL/min/{1.73_m2} Low >60 [facility] Comment on above: Non- GFR Calc Glucose measurementOrdered B y: Sharon Barnes on 11-12-2024 Glucose [Mass/Vol] 120 mg/dL High 74-106 [facility] Comment on above: Fasting Glucose resu lt from 100 to 125 mg/dL suggests IMPAIRED HOMEOSTASIS per A.D.A. criteria. Intact parathyroid hormone ( iPTH) measurementOrdered By: Sharon Barnes on 11-12-2024 Parathyroid Hormone (Intact) 286.9 pg/mL High 18.4-80.1 [facility] PTHINon 11-12-2024 PTH 286.9 pg/mL High 18.4-80.1 [facility] Comment on above: Performed By: #### L 500.3600, L506.1000, L509.1000 #### [facility] Laboratory [address] [place], [place] [address], [address] PVR ANK PRESS UNL VAS LABon 11-12-2024 PVR ANK PRESS UNL VAS LAB Non-Invasive Vascular Laboratory [facility] Lower Extremity Arterial Physiology Study Unilateral - Right Date of service/time: 11/12/2024 9:55:41 AM Name: MRS. MIRIAM THOMAS Date of : 1955 Age: 69 years Gender: F Clinical Indication Right popliteal artery angioplasty 10/10/2024. TECHNIQUE -------- An arterial physiological examination was performed, including measurement of blood pressures using continuous wave Doppler and recording of plethysmographic with or without Doppler waveforms at the below-mentioned limb segments. FINDINGS -------- RIGHT SIDE AT REST Right Doppler Waveforms Dorsalis pedis: Monophasic. Right Pressures Brachial: 165 mmHg Ankle dorsalis pedis: 255 mmHg AYDEE: 1.55 Non-compressible arteries. Ankle posterior tibial: 255 mmHg AYDEE: 1.55 Non-compressible arteries. Digit: 52 mmHg Right PVR Waveforms Ankle: Mildly dampened. Digit: Mildly dampened. LEFT SIDE AT REST Left Pressures Brachial: 162 mmHg Left PVR Waveforms Ankle: Below knee amputation. IMPRESSION RIGHT SIDE Resting right ankle brachial index: 1.55 Non-compressible arteries, AYDEE not accurate. Right toe brachial index: 0.32 Non-compressible vessels, results called by PVR tracings. Abnormal toe brachial index at rest is evidence of peripheral artery disease. Right ankle: Mild disease at rest. LEFT SIDE Resting left ankle brachial index: Below knee amputation. Technologist: Gina Schneider RVT, [facility] Ordering physician: ODIN DOBBINS Interpreting physician: Lauro Caputo MD, CARLA [employer] Medical Image : [id number] [employer] See Link below for Image Normal [facility] Phosphorus measurementOrdere d By: Sharon Barnes on 11-12-2024 Phosphorus Level 2.4 mg/dL Low 2.5-4.9 [facility] Potassium measurementOrdered By: Sharon Barnes on 11-12-2024 Potassium [Moles/Vol] 4.5 mmol/L 3.5-5.1 [facility] Renal Profileon 11-12-2024 Albumin [Mass/Vol] 3.1 g/dL Low 3.2-5.0 [facility] Comment on above: Performed By: #### L 500.3600, L506.1000, L509.1000 #### [facility] Laboratory [address] [place], [address] BUN/CRE 26.0 RATIO High 10-20 [facility] Comment on above: Performed By: #### L 500.3600, L506.1000, L509.1000 #### [facility] Laboratory [address] [place], [address] CA,Total 9.9 mg/dL Normal 8.5-10.1 [facility] Comment on above: Performed By: #### L 500.3600, L506.1000, L509.1000 #### [facility] Laboratory [address] [place], [address] Chloride [Moles/Vol] 110 mmol/L High 98-107 [facility] Comment on above: Performed By: #### L 500.3600, L506.1000, L509.1000 #### [facility] [address] [place], [address] CO2 [Moles/Vol] 26.0 mmol/L Normal 21.0-32.0 [facility] Comment on above: Performed By: #### L 500.3600, L506.1000, L509.1000 #### [facility] Laboratory [address] [place], [address] Creatinine [Mass/Vol] 1.46 mg/dL High 0.55-1.02 [facility] Comment on above: Result Comment: The validity of the calculated GFR GFRAA in patients over 70 years has not been determined. Clinical correlation is essential. Performed By: #### L 500.3600, L506.1000, L509.1000 #### [facility] [address] [place], [address] EST GFR - AA 46 mL/min Low >60 [facility] Comment on above: Result Comment: Afri can [place] GFR Calc Performed By: #### L 500.3600, L506.1000, L509.1000 #### [facility] Laboratory [address] [place], [address] GFR/1.73 sq M.predicted among non-blacks MDRD (S/P/Bld) [Vol rate/Area] 38 mL/min/{1.73_m2} Low >60 [facility] Comment on above: Result Comment: Non- GFR Calc Performed By: #### L 500.3600, L506.1000, L509.1000 #### [facility] Laboratory [address] [place], [address] Glucose [Mass/Vol] 120 mg/dL High 74-106 [facility] Comment on above: Result Comment: Fast ing Glucose result from 100 to 125 mg/dL suggests IMPAIRED HOMEOSTASIS per A.D.A. criteria. Performed By: #### L 500.3600, L506.1000, L509.1000 #### [facility] [address] [place], [address] Phosphate [Mass/Vol] 2.4 mg/dL Low 2.5-4.9 [facility] Comment on above: Performed By: #### L 500.3600, L506.1000, L509.1000 #### [facility] [address] [place], [address] Potassium [Moles/Vol] 4.5 mmol/L Normal 3.5-5.1 [facility] Comment on above: Performed By: #### L 500.3600, L506.1000, L509.1000 #### [facility] [address] [place], [address] Sodium [Moles/Vol] 142 mmol/L Normal 136-145 [facility] Comment on above: Performed By: #### L 500.3600, L506.1000, L509.1000 #### [facility] [address] [place], [address] Urea nitrogen [Mass/Vol] 38 mg/dL High 7-18 [facility] Comment on above: Performed By: #### L 500.3600, L506.1000, L509.1000 #### [facility] Laboratory [address] [place], [address] Serum or plasma albumin ishaan urement (mass/volume)Ordered By: Sharon Barnes on 11-12-2024 Albumin [Mass/Vol] 3.1 g/dL Low 3.2-5.0 [facility] Serum or plasma calcium ishaan urement (mass/volume)Ordered By: Sharon Barnes on 11-12-2024 Calcium [Mass/Vol] 9.9 mg/dL 8.5-10.1 [facility] Serum or plasma creatinine m easurement (mass/volume)Ordered By: Sharon Barnes on 11-12-2024 Creatinine [Mass/Vol] 1.46 mg/dL High 0.55-1.02 [facility] Comment on above: The validity of the calculated GFR & GFRAA in patients over 70 years has not been determined. Clinical correlation is essential. Serum or plasma urea nitroge n measurement (mass/volume)Ordered By: Sharon Barnes on 11-12-2024 Urea nitrogen [Mass/Vol] 38 mg/dL High 04-17 [facility] Sodium levelOrdered By: Alena Barnes on 11-12-2024 Sodium [Moles/Vol] 142 mmol/L 136-145 [facility] US LEG ARTERIAL PERIPH UNL V LABon 11-12-2024 US LEG ARTERIAL PERIPH UNL VAS LAB Non-Invasive Vascular Laboratory [facility] Lower Extremity Arterial Duplex Unilateral - Right Date of service/time: 11/12/2024 9:56:31 AM Name: MIRIAM THOMAS Date of : 1955 Age: 69 years Gender: F Clinical Indication Right popliteal artery angioplasty 10/10/2024. TECHNIQUE -------- An arterial duplex ultrasound examination was performed, including grayscale imaging and color Doppler and spectral Doppler examination of the below mentioned arteries. FINDINGS -------- RIGHT ARTERIES External iliac distal: PSV: 154 cm/s. EDV: 21 cm/s. Multiphasic waveform. Common femoral proximal: PSV: 165 cm/s. EDV: 20 cm/s. Multiphasic waveform. Common femoral mid: PSV: 158 cm/s. EDV: 0 cm/s. Multiphasic waveform. Common femoral distal: PSV: 143 cm/s. EDV: 15 cm/s. Multiphasic waveform. Profunda femoral proximal: PSV: 110 cm/s. EDV: 0 cm/s. Multiphasic waveform. Superficial femoral origin: PSV: 139 cm/s. EDV: 9 cm/s. Multiphasic waveform. Superficial femoral proximal: PSV: 171 cm/s. EDV: 0 cm/s. Multiphasic waveform. Superficial femoral mid: PSV: 148 cm/s. EDV: 0 cm/s. Multiphasic waveform. Superficial femoral distal: PSV: 106 cm/s. EDV: 0 cm/s. Multiphasic waveform. Popliteal proximal: PSV: 178 cm/s. EDV: 11 cm/s. Multiphasic waveform. Popliteal mid: PSV: 134 cm/s. EDV: 0 cm/s. Multiphasic waveform. Popliteal distal: PSV: 110 cm/s. EDV: 14 cm/s. Multiphasic waveform. Posterior tibial mid: PSV: 42 cm/s. EDV: 10 cm/s. Monophasic, intermediate resistive waveform. Posterior tibial distal: PSV: 90 cm/s. EDV: 22 cm/s. Monophasic, intermediate resistive waveform. Peroneal proximal: PSV: 73 cm/s. EDV: 11 cm/s. Multiphasic waveform. Peroneal mid: PSV: 72 cm/s. EDV: 11 cm/s. Multiphasic waveform. Peroneal distal: PSV: 28 cm/s. EDV: 8 cm/s. Monophasic, intermediate resistive waveform. Anterior tibial proximal: PSV: 103 cm/s. EDV: 14 cm/s. Monophasic, high resistive waveform. Anterior tibial mid: PSV: 94 cm/s. EDV: 17 cm/s. Monophasic, intermediate resistive waveform. Anterior tibial distal: PSV: 130 cm/s. EDV: 27 cm/s. Monophasic, intermediate resistive waveform. VESSEL/GRAFT Tibioperoneal trunk mid: PSV: 76 cm/s. EDV: 0 cm/s. Multiphasic waveform. IMPRESSION RIGHT SIDE External iliac artery distal: plaque noted without evidence of hemodynamically significant stenosis . Common femoral artery : plaque noted without evidence of hemodynamically significant stenosis . Profunda femoral artery proximal: plaque noted without evidence of hemodynamically significant stenosis . Superficial femoral artery, Popliteal artery and Tibioperoneal trunk : plaque noted without evidence of hemodynamically significant stenosis . Posterior tibial artery proximal: occluded . Reconstitutes mid calf. Collaterals mid to distal calf. Peroneal artery and Anterior tibial artery : plaque noted without evidence of hemodynamically significant stenosis . Technologist: Gina Schneider RVT, [facility] Ordering physician: ODIN DOBBINS Interpreting physician: Lauro Caputo MD, CARLA Final [employer] Medical Image : [id number] [employer]ISUID See Link below for Image Normal [facility] Vitamin D,25 Hydroxyon 11-12 Vitamin D 25-OH 35.4 ng/mL Normal [facility] Comment on above: Result Comment: Cesilia min D 25(OH) Status Range Deficiency <20 ng/mL (50nmol/L) Insufficiency 20 - 30 ng/mL (50 - 75 nmol/L) Sufficiency 30 - 100 ng/mL (75 - 250 nmol/L) Toxicity >100 ng/mL (>250 nmol/L) Performed By: #### L 500.3600, L506.1000, L509.1000 #### [facility] [address] [place], [address] CNOVon 11-03-2024 CNOV Office Visit (INTMWS) MIRIAM THOMAS ([id number]) 1955 F Date Time Provider Department 11/03/24 2:00 PM NICHELLE VILLATORO INTMWS During your visit today, we recorded the following information about you: Pulse Respiration Blood pressure 80/minute 16/minute 118/70 Nichelle Villatoro, SHEAR OPERATOR [employer] 11/03/2024 4:07 PM Addendum SUBJECTIVE: Pneumococcal Vaccine: 50+(2 of 2 - PCV) due on 10/01/2005 RSV Vaccine(1 - Risk 60-74 years 1-dose series) Never done DTaP,Tdap,Td Vaccine(2 - Td or Tdap) due on 10/01/2018 Influenza Vaccine(1) due on 06/01/2024 Diabetic Foot Exam due on 06/13/2024 Advance Directive Discussion due on 10/01/2024 HPI Miriam Thomas is a 69 year old female. 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 (Hcc) Recurrent Major Depression in Partial Remission ([facility]) Functional Dyspepsia Gastroesophageal Reflux Disease Diabetic Gastroparesis (Hcc) ([facility]) Lichen Sclerosus Type 2 Diabetes Mellitus With Diabetic Peripheral Angiopathy and Gangrene, With Long-Term Current Use of Insulin ([facility]) Obesity, Class I, Bmi 30-34.9 Leukocytosis Type 2 Diabetes Mellitus With Stage 3b Chronic Kidney Disease, With Long-Term Current Use of Insulin ([facility]) Hx of Bka, Left ([facility]) Urinary Retention Muscular Deconditioning Moderate Episode of Recurrent Major Depressive Disorder (Hcc) Hypertensive Ckd (Chronic Kidney Disease) Jose (Obstructive Sleep Apnea) Presents for a follow-up visit regarding pneumonia. Since last seen she underwent lower extremity angiogram 10/10/2024 wit Odin Dobbins MD at [facility]. Seen at [facility] 10/23/2024 for an acute cough. Chest x-ray completed and concerning for pneumonia, patchy left lower lobe opacities. She was treated with doxycycline and Augmentin. Today notes she continues to cough a lot, disrupting sleep. Unable to sleep in her bed due to coughing. Has been sleeping in a recliner. Currently without fever. Notes shortness of breath on exertion. No orthopnea. No current wheezing. Some ear fullness. No pain. Has completed antibiotics. Notes some loose stools/diarrhea with this. No history of asthma or COPD. S Uses CGM, glucose has been well-controlled. Uses CGM, glucose has been well controlled. Patient's last HgA1C was Hemoglobin A1C (%) Date Value 06/13/2024 6.1 12/11/2023 6.1 05/09/2021 5.4 06/09/2020 6.3 ) Last 3 Encounter BP Readings: Date: BP: 10/23/2024 102/67 10/09/2024 132/66 09/30/2024 159/70 Review of Systems Constitutional: Negative. Objective BP 118/70 Pulse 80 Resp 16 Physical Exam Vitals and nursing note reviewed. Constitutional: Appearance: Normal appearance. HENT: Head: Normocephalic and atraumatic. Right Ear: Tympanic membrane and ear canal normal. Left Ear: Ear canal normal. A middle ear effusion (serous) is present. Nose: Mucosal edema present. Mouth/Throat: Lips: [place]. Mouth: Mucous membranes are moist. Pharynx: Oropharynx is clear. Tonsils: No tonsillar exudate. Eyes: Conjunctiva/sclera: Conjunctivae normal. Cardiovascular: Rate and Rhythm: Normal rate and regular rhythm. Heart sounds: Normal heart sounds. Pulmonary: Effort: Pulmonary effort is normal. Breath sounds: Normal breath sounds. Skin: General: Skin is warm and dry. Neurological: General: No focal deficit present. Mental Status: She is alert and oriented to person, place, and time. ALLERGIES Allergen Reactions Meloxicam GI Upset Sulfa (Sulfonamide * Swelling Facial swelling, shortness of breath. Medications guaifenesin/pseudoep hedrne HCl (MUCINEX D ORAL) Take by mouth. benzonatate (TESSALON PERLE) 100 mg capsule Take 1-2 capsules by mouth three times a day as needed. albuterol HFA (PROVENTIL HFA) 90 mcg/actuation inhaler Inhale 1-2 Puffs as instructed four times a day as needed for wheezing/shortness of breath. fluticasone (FLONASE) 50 mcg/actuation nasal spray Use 2 Sprays in each nostril once daily. Rinse mouth after use. clopidogrel (PLAVIX) 75 mg tablet Take 1 tablet by mouth once daily. dulaglutide (TRULICITY) 4.5 mg/0.5 mL pen injector Inject 4.5 mg subcutaneously one time a week. Gets through [facility]. insulin glargine 100 unit/mL (3 mL) Inject 26 Units subcutaneously every morning. (Basaglar) Patient assistance medication. insulin lispro (HUMALOG KWIKPEN) 100 unit/mL Inject 8 units with breakfast and 4 units with evening meal as directed. Patient (more content not included)... Normal [facility] XR CHEST 2V FRONTAL/LATon XR CHEST 2V FRONTAL/LAT * * *Final Repor t* * * DATE OF EXAM: Nov 03 2024 3:08PM WOX [id number] - XR CHEST 2V FRONTAL/LAT / PROCEDURE REASON: Pneumonia of left lower lobe due to infectious organism * * * * Physician Interpretation * * * * EXAMINATION: CHEST RADIOGRAPH (2 VIEW FRONTAL and LATERAL) CLINICAL HISTORY: Pneumonia of left lower lobe due to infectious organism MQ: XC2_6 EXAM DATE/TIME: 11/03/2024 3:08 PM COMPARISON: 10/23/2024 RESULT: Lines, tubes, and devices: None. Lungs and pleura: No consolidation. No lung mass. No pleural effusion. No pneumothorax. Cardiomediastinal silhouette: Normal cardiomediastinal silhouette. Bones and soft tissues: Unremarkable. IMPRESSION: No residual infiltrate. Chemical Process Operator: PSCB Transcribe Date/Time: Nov 03 2024 3:16P Dictated by : DEEDEE LILLY MD This examination was interpreted and the report reviewed and electronically signed by: DEEDEE LILLY MD on Nov 03 2024 3:18PM EST [id number] Normal [facility] XR Chest PA and Lateralon IMPRESSION: No residual infiltrate. Chemical Process Operator: SARA Transcribe Date/Time: Nov 03 2024 3:16P Dictated by : DEEDEE LILLY MD This examination was interpreted and the report reviewed and electronically signed by: DEEDEE LILLY MD on Nov 03 2024 3:18PM [facility] DIVISION OF RADIOLOGY * * *Final Report* * * DATE OF EXAM: Nov 03 2024 3:08PM WOX [id number] - XR CHEST 2V FRONTAL/LAT / PROCEDURE REASON: Pneumonia of left lower lobe due to infectious organism * * * * Physician Interpretation * * * * EXAMINATION: CHEST RADIOGRAPH (2 VIEW FRONTAL & LATERAL) CLINICAL HISTORY: Pneumonia of left lower lobe due to infectious organism MQ: XC2_6 EXAM DATE/TIME: 11/03/2024 3:08 PM COMPARISON: 10/23/2024 RESULT: Lines, tubes, and devices: None. Lungs and pleura: No consolidation. No lung mass. No pleural effusion. No pneumothorax. Cardiomediastinal silhouette: Normal cardiomediastinal silhouette. Bones and soft tissues: Unremarkable. DIVISION OF RADIOLOGY Provider, [facility] [place] - 11/03/2024 * * *Final Report* * * DATE OF EXAM: Nov 03 2024 3:08PM WOX [id number] - XR CHEST 2V FRONTAL/LAT / PROCEDURE REASON: Pneumonia of left lower lobe due to infectious organism * * * * Physician Interpretation * * * * EXAMINATION: CHEST RADIOGRAPH (2 VIEW FRONTAL & LATERAL) CLINICAL HISTORY: Pneumonia of left lower lobe due to infectious organism MQ: XC2_6 EXAM DATE/TIME: 11/03/2024 3:08 PM COMPARISON: 10/23/2024 RESULT: Lines, tubes, and devices: None. Lungs and pleura: No consolidation. No lung mass. No pleural effusion. No pneumothorax. Cardiomediastinal silhouette: Normal cardiomediastinal silhouette. Bones and soft tissues: Unremarkable. IMPRESSION IMPRESSION: No residual infiltrate. Chemical Process Operator: SARA Transcribe Date/Time: Nov 03 2024 3:16P Dictated by : DEEDEE LILLY MD This examination was interpreted and the report reviewed and electronically signed by: DEEDEE LILLY MD on Nov 03 2024 3:18PM [facility] Radiology Study observation (narrative) [facility] XR Chest PA and LateralOrder ed By: [facility] Provider on 11-03-2024 [facility] CNOVon 10-27-2024 CNOV Office Visit (INTMWS) MIRIAM THOMAS ([id number]) 1955 F Date Time Provider Department 10/27/24 12:00 PM NICHELLE VILLATORO INTMWS During your visit today, we recorded the following information about you: Pulse Blood pressure 73/minute 110/66 Nichelle Villatoro, TONIA.FILLING [employer] 10/27/2024 12:54 PM Signed SUBJECTIVE: Pneumococcal Vaccine: 50+(2 of 2 - PCV) due on 10/01/2005 RSV Vaccine(1 - Risk 60-74 years 1-dose series) Never done DTaP,Tdap,Td Vaccine(2 - Td or Tdap) due on 10/01/2018 Influenza Vaccine(1) due on 06/01/2024 Diabetic Foot Exam due on 06/13/2024 Advance Directive Discussion due on 10/01/2024 HPI Miriam Thomas is a 69 year old female. 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 ([facility]) Recurrent Major Depression in Partial Remission ([facility]) Functional Dyspepsia Gastroesophageal Reflux Disease Diabetic Gastroparesis ([facility]) ([facility]) Lichen Sclerosus Type 2 Diabetes Mellitus With Diabetic Peripheral Angiopathy and Gangrene, With Long-Term Current Use of Insulin ([facility]) Obesity, Class I, Bmi 30-34.9 Leukocytosis Type 2 Diabetes Mellitus With Stage 3b Chronic Kidney Disease, With Long-Term Current Use of Insulin (Hcc) Hx of Bka, Left (Hcc) Urinary Retention Muscular Deconditioning Moderate Episode of Recurrent Major Depressive Disorder (Hcc) Hypertensive Ckd (Chronic Kidney Disease) Jose (Obstructive Sleep Apnea) Presents for routine visit today. Since last seen she underwent lower extremity angiogram 10/10/2024 wit Odin Dobbins MD at [facility]. Seen at [facility] 10/23/2024 for an acute cough. Chest x-ray completed and concerning for pneumonia, patchy left lower lobe opacities. She was treated with doxycycline and Augmentin. Today notes she continues to cough a lot, disrupting sleep. Unable to sleep in her bed due to coughing. Has been sleeping in a recliner. Currently without fever. Notes shortness of breath on exertion. No orthopnea. Occasionally wheezing. No history of asthma or COPD. She notes left ear is popping. Uses CGM, glucose has been well-controlled. Uses CGM, glucose has been well controlled. Patient's last HgA1C was Hemoglobin A1C (%) Date Value 06/13/2024 6.1 12/11/2023 6.1 05/09/2021 5.4 06/09/2020 6.3 ) Last 3 Encounter BP Readings: Date: BP: 10/23/2024 102/67 10/09/2024 132/66 09/30/2024 159/70 Review of Systems Constitutional: Negative. Objective BP 110/66 Pulse 73 SpO2 96% Physical Exam Vitals and nursing note reviewed. Constitutional: Appearance: Normal appearance. HENT: Head: Normocephalic and atraumatic. Right Ear: Tympanic membrane and ear canal normal. Left Ear: Ear canal normal. A middle ear effusion (serous) is present. Nose: Mucosal edema and rhinorrhea present. Rhinorrhea is clear. Mouth/Throat: Lips: [place]. Mouth: Mucous membranes are moist. Pharynx: Oropharynx is clear. Tonsils: No tonsillar exudate. Eyes: Conjunctiva/sclera: Conjunctivae normal. Cardiovascular: Rate and Rhythm: Normal rate and regular rhythm. Heart sounds: Normal heart sounds. Pulmonary: Effort: Pulmonary effort is normal. Breath sounds: Rhonchi present. Comments: scattered rhonchi, diminished at bases Skin: General: Skin is warm and dry. Neurological: General: No focal deficit present. Mental Status: She is alert and oriented to person, place, and time. ALLERGIES Allergen Reactions Meloxicam GI Upset Sulfa (Sulfonamide * Swelling Facial swelling, shortness of breath. Medications clopidogrel (PLAVIX) 75 mg tablet Take 1 tablet by mouth once daily. dulaglutide (TRULICITY) 4.5 mg/0.5 mL pen injector Inject 4.5 mg subcutaneously one time a week. Gets through [facility]. insulin glargine 100 unit/mL (3 mL) Inject 26 Units subcutaneously every morning. (Basaglar) Patient assistance medication. insulin lispro (HUMALOG KWIKPEN) 100 unit/mL Inject 8 units with breakfast and 4 units with evening meal as directed. Patient assistance medication. escitalopram oxalate (LEXAPRO) 20 mg tablet Take 1 tablet by mouth once daily. atorvastatin (LIPITOR) 40 mg tablet Take 1 tablet by mouth daily at bedtime. For cholesterol. buPROPion XL (WELLBUTRIN XL) 150 mg 24 hr tablet Take 1 tablet by mouth once daily. tamsulosin (FLOMAX) 0.4 mg Take 2 capsules by mouth once daily. gabapentin (NEURONTIN) 400 mg capsule Take 1 capsule by mouth two times a day AND 2 capsules daily at be (more content not included)... Normal [facility] CNOVon 10-23-2024 CNOV Office Visit (UCTR) MIRIAM THOMAS ([id number]) 1955 F Date Time Provider Department 10/23/24 9:45 AM REJI GORE [facility] During your visit today, we recorded the following information about you: Temperature Pulse Respiration Blood pressure 97 degrees 75/minute 20/minute 102/67 Reji Gore APRN.COMMUNICABLE DISEASE SPECIALIST 10/23/2024 10:54 AM Signed Subjective HPI Nontoxic-appearing 69-year-old female presents urgent care chief complaint cough chest congestion sinus pressure. Duration of symptoms 1 week. Associated symptoms listed above. was sick previously with similar signs symptoms. Presents today because it feels like it is moving into her chest. States cough is becoming productive. Denies any chest pain shortness of breath or hemoptysis. No pleuritic pain. No fevers. Past medical history prescription medications allergies reviewed. .Patient presents with: Cough: Head and chest congestion x1 week PAST MEDICAL HISTORY Diagnosis Date Anxiety Arthritis Depression MARITZA exposure in utero Diabetes mellitus ([facility]) 1986 Diabetic neuropathy ([facility]) Gangrene ([facility]) Heart attack ([facility]) [address] Adalberto Power [place] Herniated disc Hypertension Muscular deconditioning PVD (peripheral vascular disease) ([facility]) 10/2019 S/P BKA (below knee amputation) unilateral, left ([facility]) Sleep apnea cpap Snoring Stroke ([facility]) 11/2004 and 05/2005 x 2, right sided weakness PAST SURGICAL HISTORY Procedure Laterality Date AMPUTATION OF LOWER LEG Left 07/20/2020 L BKA ANESTH,BRACHIAL/FEMO RAL ARTERIOGRAM Left 11/04/2019 Left femoral arteriogram with stenting of left superficial femoral artery. Attempted left popliteal artery thromboembolectomy. Left anterior tibial thromboembolectomy @ [facility] by Dr. Zavaleta AORTOGRAM AND LEG RUNOFF 11/04/2019 1. Abdominal aortogram with bilateral selective lower extremity carbon dioxide runoff @ [facility] by Dr Zavaleta DELIVERY ONLY 1980, 1983, 1985 , low transverse, x 3 COLONOSCOPY FLX DX W/COLLJ SPEC WHEN PFRMD 02/17/16 Colonoscopy (MAC) ESOPHAGOGASTRODUODEN OSCOPY TRANSORAL DIAGNOSTIC 11/26/2017 EGD ESOPHAGOGASTRODUODEN OSCOPY TRANSORAL DIAGNOSTIC 01/14/2018 EGD PAST SURGICAL HISTORY OF last one in 2006 DANDC, multiple x4 PAST SURGICAL HISTORY OF Left 2000 ganglion cyst removed left wrist PAST SURGICAL HISTORY OF Bilateral 07/2013 cataracts TRANSMETATARSAL AMPUTATION/OANDP Left 12/12/2019 Transmetatarsal amputation with tendoachilles lengthening left lower extremity ALLERGIES Meloxicam and Sulfa (Sulfonamide Antibiotics) MEDICATIONS clopidogrel (PLAVIX) 75 mg tablet Take 1 tablet by mouth once daily. dulaglutide (TRULICITY) 4.5 mg/0.5 mL pen injector Inject 4.5 mg subcutaneously one time a week. Gets through [employer]. insulin glargine 100 unit/mL (3 mL) Inject 26 Units subcutaneously every morning. (Basaglar) Patient assistance medication. insulin lispro (HUMALOG KWIKPEN) 100 unit/mL Inject 8 units with breakfast and 4 units with evening meal as directed. Patient assistance medication. escitalopram oxalate (LEXAPRO) 20 mg tablet Take 1 tablet by mouth once daily. atorvastatin (LIPITOR) 40 mg tablet Take 1 tablet by mouth daily at bedtime. For cholesterol. buPROPion XL (WELLBUTRIN XL) 150 mg 24 hr tablet Take 1 tablet by mouth once daily. tamsulosin (FLOMAX) 0.4 mg Take 2 capsules by mouth once daily. gabapentin (NEURONTIN) 400 mg capsule Take 1 capsule by mouth two times a day AND 2 capsules daily at bedtime. Do all this for 90 days. (Patient taking differently: Take 1 capsule by mouth in the afternoon AND 2 capsules daily at bedtime. Do all this for 90 days.) Blood-Glucose Sensor (Planspot G7 SENSOR) jackson Apply new sensor every ten (10) days. ciclopirox (LOPROX) 0.77 % cream Apply to affected area two times a day. For 2 to 4 weeks till rash resolves. May treat recurrences for rash under abdominal pannus acyclovir (ZOVIRAX) 400 mg tablet Take 1 tablet by mouth two times a day. blood sugar diagnostic (BLOOD GLUCOSE TEST) test strip Test blood sugar(s) 3 to 4 times daily. Dx: Other DM Code E11.51 Insulin: Yes One touch or Accucheck strips or strips covered by her insurance. Lancets Test blood sugar(s) 3 to 4 times daily. Dx: Other DM Code E11.51 Insulin: Yes clobetasol (TEMOVATE) 0.05 % ointment Apply nightly to affected area for 8-12 weeks, then 1-3x weekly for maintenance hydrALAZINE (APRESOLINE) 50 mg tablet Take 1 tablet by mouth two times a day. Hold for SBP less than 120mm HG pantoprazole DR (PROTONIX) 40 mg tablet Take 1 tablet by mouth once daily. carvedilol (COREG) 6.25 mg tablet Take 1 tablet by mouth two times a day with meals. nystatin (MYCOSTATIN) powder Apply 1 application to affected area twice daily as needed. For prevention B complex w-C no.20/folic acid (B COMPLEX W (more content not included)... Normal [facility] Janice 10-23-2024 CNPN Telephone (AGWG1) MIRIAM THOMAS ([id number]) 1955 F Date Time Provider Department 10/23/24 LETI ROGER AGHWG1 During your visit today, we recorded the following information about you: Leti Roger DPM 10/23/2024 12:19 PM Signed Can you please call patient and see how she is doing? I have not seen her since had vascular procedure and MRI was concerning for infection to the tip of the toes. Looks like she cancelled appointment with me today and may have pneumonia. How are the toes looking? INGE Enriquez Karuna 10/23/2024 1:59 PM Signed Toes are not wet still have black scab and are warm and she is scheduled for another pvr on nov 12 [place] location then see Dr Cohen on nov 17 Do you want to see after these or do you want to see sooner if she is feeling better Leit Macdonald DPM 10/23/2024 2:05 PM Signed Sooner if she is feeling better. INGE Enriquez Patty 10/23/2024 2:08 PM Signed Spoke with patient told her to call me when she is feeling better and I would work her in to be seen Karuna Mims Allergies As of Date: 10/23/2024 Noted Allergy Reaction MELOXICAM 06/22/2016 8 - GI Upset SULFA (SULFONAMIDE ANTIBIOTICS) 10/15/2014 7 - Swelling Comments: Facial swelling, shortness of breath. Date Reviewed: 10/23/2024 Reviewed by: Reji Gore APRN.COMMUNICABLE DISEASE SPECIALIST - Fully Assessed Prescriptions as of 10/23/2024 - amoxicillin-clavulan ate potassium (AUGMENTIN) 875-125 mg per tablet Take 1 tablet by mouth two times a day for 5 days. - doxycycline monohydrate 100 mg tablet Take 1 tablet by mouth two times a day for 5 days. - clopidogrel (PLAVIX) 75 mg tablet Take 1 tablet by mouth once daily. - dulaglutide (TRULICITY) 4.5 mg/0.5 mL pen injector Inject 4.5 mg subcutaneously one time a week. Gets through [facility]. - insulin glargine 100 unit/mL (3 mL) Inject 26 Units subcutaneously every morning. (Basaglar) Patient assistance medication. - insulin lispro (HUMALOG KWIKPEN) 100 unit/mL Inject 8 units with breakfast and 4 units with evening meal as directed. Patient assistance medication. - escitalopram oxalate (LEXAPRO) 20 mg tablet Take 1 tablet by mouth once daily. - atorvastatin (LIPITOR) 40 mg tablet Take 1 tablet by mouth daily at bedtime. For cholesterol. - buPROPion XL (WELLBUTRIN XL) 150 mg 24 hr tablet Take 1 tablet by mouth once daily. - tamsulosin (FLOMAX) 0.4 mg Take 2 capsules by mouth once daily. - gabapentin (NEURONTIN) 400 mg capsule Take 1 capsule by mouth two times a day AND 2 capsules daily at bedtime. Do all this for 90 days. - Blood-Glucose Sensor (Planspot G7 SENSOR) jackson Apply new sensor every ten (10) days. - ciclopirox (LOPROX) 0.77 % cream Apply to affected area two times a day. For 2 to 4 weeks till rash resolves. May treat recurrences for rash under abdominal pannus - acyclovir (ZOVIRAX) 400 mg tablet Take 1 tablet by mouth two times a day. - blood sugar diagnostic (BLOOD GLUCOSE TEST) test strip Test blood sugar(s) 3 to 4 times daily. Dx: Other DM Code E11.51 Insulin: Yes One touch or Accucheck strips or strips covered by her insurance. - Lancets Test blood sugar(s) 3 to 4 times daily. Dx: Other DM Code E11.51 Insulin: Yes - clobetasol (TEMOVATE) 0.05 % ointment Apply nightly to affected area for 8-12 weeks, then 1-3x weekly for maintenance - hydrALAZINE (APRESOLINE) 50 mg tablet Take 1 tablet by mouth two times a day. Hold for SBP less than 120mm HG - pantoprazole DR (PROTONIX) 40 mg tablet Take 1 tablet by mouth once daily. - carvedilol (COREG) 6.25 mg tablet Take 1 tablet by mouth two times a day with meals. - nystatin (MYCOSTATIN) powder Apply 1 application to affected area twice daily as needed. For prevention - B complex w-C no.20/folic acid (B COMPLEX WITH C 20-FOLIC ACID ORAL) Take 1 tablet by mouth once daily. - Magnesium Oxide 500 mg tab Take 1 tablet by mouth once daily. For constipation - Blood-Glucose Meter,Continuous (DEXCOM G7 ENVELOPE SEALER) [facility] Use to check blood sugar at least four (4) times daily. - nitroglycerin sublingual (NITROQUICK) 0.4 mg SL tablet Dissolve 1 tablet under the tongue as needed. As directed - insulin needles, DISPOSABLE, (PEN NEEDLE) 31 gauge x 5/16 Use one needle per dose. 5 per day. - bacitracin zinc 500 unit/gram ointment Apply to affected area twice daily. As directed for affected area till healed - cetirizine (ZYRTEC) 10 mg tablet Take 1 tablet by mouth once daily as needed. - aspirin, enteric coated (ASPIRIN, ENTERIC COATED) 81 mg EC tablet Take 1 tablet by mouth once daily. - cyanocobalamin, vitamin B-12, 5,000 mcg subl Dissolve under the tongue once daily. - ascorbic acid, vitamin C, (VITAMIN C) 500 mg tablet Take 1,000 mg by mouth once daily. - biotin 5,000 mcg ODT (more content not included)... Normal [facility] XR CHEST 2V FRONTAL/LATon XR CHEST 2V FRONTAL/LAT * * *Final Repor t* * * DATE OF EXAM: Oct 23 2024 10:31AM WOX 5291 - XR CHEST 2V FRONTAL/LAT / PROCEDURE REASON: Acute cough * * * * Physician Interpretation * * * * EXAMINATION: CHEST RADIOGRAPH (2 VIEW FRONTAL and LATERAL) CLINICAL HISTORY: Acute cough MQ: XC2_6 EXAM DATE/TIME: 10/23/2024 10:31 AM COMPARISON: Radiograph 07/22/2020 RESULT: Lines, tubes, and devices: None. Lungs and pleura: Patchy left lower lobe opacity, concerning for pneumonia. Cardiomediastinal silhouette: Normal cardiomediastinal silhouette. Bones and soft tissues: Multilevel degenerative changes of the thoracic spine. IMPRESSION: Patchy left lower lobe opacities concerning for pneumonia. COMMUNICATION: Communicated with REJI GORE on 10/23/2024 10:39 AM via My[employer] staff message. Chemical Process Operator: PSCB Transcribe Date/Time: Oct 23 2024 10:35A Dictated by : AMADA WYATT MD This examination was interpreted and the report reviewed and electronically signed by: AMADA WYATT MD on Oct 23 2024 10:42AM EST [id number] Normal [facility] XR Chest PA and Lateralon IMPRESSION: Patchy left lower lobe opacities concerning for pneumonia. COMMUNICATION: Communicated with REJI GORE on 10/23/2024 10:39 AM via My[employer] staff message. Chemical Process Operator: PSCB Transcribe Date/Time: Oct 23 2024 10:35A Dictated by : AMADA WYATT MD This examination was interpreted and the report reviewed and electronically signed by: AMADA WYATT MD on Oct 23 2024 10:42AM EST DIVISION OF RADIOLOGY * * *Final Report* * * DATE OF EXAM: Oct 23 2024 10:31AM WOX 5291 - XR CHEST 2V FRONTAL/LAT / PROCEDURE REASON: Acute cough * * * * Physician Interpretation * * * * EXAMINATION: CHEST RADIOGRAPH (2 VIEW FRONTAL & LATERAL) CLINICAL HISTORY: Acute cough MQ: XC2_6 EXAM DATE/TIME: 10/23/2024 10:31 AM COMPARISON: Radiograph 07/22/2020 RESULT: Lines, tubes, and devices: None. Lungs and pleura: Patchy left lower lobe opacity, concerning for pneumonia. Cardiomediastinal silhouette: Normal cardiomediastinal silhouette. Bones and soft tissues: Multilevel degenerative changes of the thoracic spine. DIVISION OF RADIOLOGY Provider, [facility] [place] - 10/23/2024 * * *Final Report* * * DATE OF EXAM: Oct 23 2024 10:31AM WOX 5291 - XR CHEST 2V FRONTAL/LAT / PROCEDURE REASON: Acute cough * * * * Physician Interpretation * * * * EXAMINATION: CHEST RADIOGRAPH (2 VIEW FRONTAL & LATERAL) CLINICAL HISTORY: Acute cough MQ: XC2_6 EXAM DATE/TIME: 10/23/2024 10:31 AM COMPARISON: Radiograph 07/22/2020 RESULT: Lines, tubes, and devices: None. Lungs and pleura: Patchy left lower lobe opacity, concerning for pneumonia. Cardiomediastinal silhouette: Normal cardiomediastinal silhouette. Bones and soft tissues: Multilevel degenerative changes of the thoracic spine. IMPRESSION IMPRESSION: Patchy left lower lobe opacities concerning for pneumonia. COMMUNICATION: Communicated with REJI GORE on 10/23/2024 10:39 AM via My[employer] staff message. Chemical Process Operator: SARA Transcribe Date/Time: Oct 23 2024 10:35A Dictated by : AMADA WYATT MD This examination was interpreted and the report reviewed and electronically signed by: AMADA WYATT MD on Oct 23 2024 10:42AM EST [facility] Radiology Study observation (narrative) Krystina holguin [facility] XR Chest PA and LateralOrder ed By: [facility] Provider on 10-23-2024 [facility] CNPNon 10-17-2024 CNPN Telephone (INTMWS) MIRIAM THOMAS ([id number]) 1955 F Date Time Provider Department 10/17/24 EARL SHEPHERD INTMWS During your visit today, we recorded the following information about you: Elana Paredes LPN 10/17/2024 10:56 AM Signed Pt calling to check status on the [employer] Parking Permit. Pt advised was done on 10-15-24. Pt will watch her mail for this. Elana Paredes LPN Allergies As of Date: 10/17/2024 Noted Allergy Reaction MELOXICAM 06/22/2016 8 - GI Upset SULFA (SULFONAMIDE ANTIBIOTICS) 10/15/2014 7 - Swelling Comments: Facial swelling, shortness of breath. Date Reviewed: 10/10/2024 Reviewed by: Samanta Rutledge RN - Fully Assessed Reason for Visit: handicap placard [Other] Prescriptions as of 10/17/2024 - clopidogrel (PLAVIX) 75 mg tablet Take 1 tablet by mouth once daily. - dulaglutide (TRULICITY) 4.5 mg/0.5 mL pen injector Inject 4.5 mg subcutaneously one time a week. Gets through [facility]. - insulin glargine 100 unit/mL (3 mL) Inject 26 Units subcutaneously every morning. (Basaglar) Patient assistance medication. - insulin lispro (HUMALOG KWIKPEN) 100 unit/mL Inject 8 units with breakfast and 4 units with evening meal as directed. Patient assistance medication. - escitalopram oxalate (LEXAPRO) 20 mg tablet Take 1 tablet by mouth once daily. - atorvastatin (LIPITOR) 40 mg tablet Take 1 tablet by mouth daily at bedtime. For cholesterol. - buPROPion XL (WELLBUTRIN XL) 150 mg 24 hr tablet Take 1 tablet by mouth once daily. - tamsulosin (FLOMAX) 0.4 mg Take 2 capsules by mouth once daily. - gabapentin (NEURONTIN) 400 mg capsule Take 1 capsule by mouth two times a day AND 2 capsules daily at bedtime. Do all this for 90 days. - Blood-Glucose Sensor (Planspot G7 SENSOR) jackson Apply new sensor every ten (10) days. - ciclopirox (LOPROX) 0.77 % cream Apply to affected area two times a day. For 2 to 4 weeks till rash resolves. May treat recurrences for rash under abdominal pannus - acyclovir (ZOVIRAX) 400 mg tablet Take 1 tablet by mouth two times a day. - blood sugar diagnostic (BLOOD GLUCOSE TEST) test strip Test blood sugar(s) 3 to 4 times daily. Dx: Other DM Code E11.51 Insulin: Yes One touch or Accucheck strips or strips covered by her insurance. - Lancets Test blood sugar(s) 3 to 4 times daily. Dx: Other DM Code E11.51 Insulin: Yes - clobetasol (TEMOVATE) 0.05 % ointment Apply nightly to affected area for 8-12 weeks, then 1-3x weekly for maintenance - hydrALAZINE (APRESOLINE) 50 mg tablet Take 1 tablet by mouth two times a day. Hold for SBP less than 120mm HG - pantoprazole DR (PROTONIX) 40 mg tablet Take 1 tablet by mouth once daily. - carvedilol (COREG) 6.25 mg tablet Take 1 tablet by mouth two times a day with meals. - nystatin (MYCOSTATIN) powder Apply 1 application to affected area twice daily as needed. For prevention - B complex w-C no.20/folic acid (B COMPLEX WITH C 20-FOLIC ACID ORAL) Take 1 tablet by mouth once daily. - Magnesium Oxide 500 mg tab Take 1 tablet by mouth once daily. For constipation - Blood-Glucose Meter,Continuous (DEXCOM G7 ENVELOPE SEALER) misc Use to check blood sugar at least four (4) times daily. - nitroglycerin sublingual (NITROQUICK) 0.4 mg SL tablet Dissolve 1 tablet under the tongue as needed. As directed - insulin needles, DISPOSABLE, (PEN NEEDLE) 31 gauge x 5/16 Use one needle per dose. 5 per day. - bacitracin zinc 500 unit/gram ointment Apply to affected area twice daily. As directed for affected area till healed - cetirizine (ZYRTEC) 10 mg tablet Take 1 tablet by mouth once daily as needed. - aspirin, enteric coated (ASPIRIN, ENTERIC COATED) 81 mg EC tablet Take 1 tablet by mouth once daily. - cyanocobalamin, vitamin B-12, 5,000 mcg subl Dissolve under the tongue once daily. - ascorbic acid, vitamin C, (VITAMIN C) 500 mg tablet Take 1,000 mg by mouth once daily. - biotin 5,000 mcg ODT Take 1 tablet by mouth once daily. - polyethylene glycol 3350 (MIRALAX) 17 gram/dose powder Take 17 g by mouth as directed. 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 Normal [facility] BRIEF OP NOTon 10-10-2024 BRIEF OP NOT HNO ID: [id number] Author: ODIN DOBBINS MD Service: Vascular Surgery Author Type: Physician Type: Brief Op Note Filed: 10/10/2024 16:11 Note Text: BRIEF OPERATIVE / PROCEDURE NOTE LOG ID: [id number] Surgery/Procedure Date: 10/10/2024 Incision/Procedure Start Time: 9:23 AM Incision Close/Procedure End Time: 10:21 AM Surgeon(s)/Procedura list(s) and Tubular Stock Glass Bulb Machine Former(s): Surgeons and Role: * Odin Dobbins MD - Primary No Additional Staff Procedure(s): ANGIOGRAM EXTREMITY UNILATERAL RADIOLOGICAL: 02014 (CPT?) [place] Angio: Access: L NARROW GAUGE OPERATOR Closure: Angioseal Contrast: 10 cc Fluorotime: 7.7 min, 57.4 mGy Anesthesia: Procedural Sedation Findings: see op note Pulses: LLE: Palpable DP / BiP PT Medications: Current Outpatient Medications on File Prior to Encounter Medication Sig insulin glargine 100 unit/mL (3 mL) Inject 26 Units subcutaneously every morning. (Basaglar) Patient assistance medication. insulin lispro (HUMALOG KWIKPEN) 100 unit/mL Inject 8 units with breakfast and 4 units with evening meal as directed. Patient assistance medication. escitalopram oxalate (LEXAPRO) 20 mg tablet Take 1 tablet by mouth once daily. atorvastatin (LIPITOR) 40 mg tablet Take 1 tablet by mouth daily at bedtime. For cholesterol. buPROPion XL (WELLBUTRIN XL) 150 mg 24 hr tablet Take 1 tablet by mouth once daily. tamsulosin (FLOMAX) 0.4 mg Take 2 capsules by mouth once daily. gabapentin (NEURONTIN) 400 mg capsule Take 1 capsule by mouth two times a day AND 2 capsules daily at bedtime. Do all this for 90 days. (Patient taking differently: Take 1 capsule by mouth in the afternoon AND 2 capsules daily at bedtime. Do all this for 90 days.) acyclovir (ZOVIRAX) 400 mg tablet Take 1 tablet by mouth two times a day. blood sugar diagnostic (BLOOD GLUCOSE TEST) test strip Test blood sugar(s) 3 to 4 times daily. Dx: Other DM Code E11.51 Insulin: Yes One touch or Accucheck strips or strips covered by her insurance. hydrALAZINE (APRESOLINE) 50 mg tablet Take 1 tablet by mouth two times a day. Hold for SBP less than 120mm HG pantoprazole DR (PROTONIX) 40 mg tablet Take 1 tablet by mouth once daily. carvedilol (COREG) 6.25 mg tablet Take 1 tablet by mouth two times a day with meals. B complex w-C no.20/folic acid (B COMPLEX WITH C 20-FOLIC ACID ORAL) Take 1 tablet by mouth once daily. Magnesium Oxide 500 mg tab Take 1 tablet by mouth once daily. For constipation Blood-Glucose Meter,Continuous (DEXCOM G7 ENVELOPE SEALER) misc Use to check blood sugar at least four (4) times daily. aspirin, enteric coated (ASPIRIN, ENTERIC COATED) 81 mg EC tablet Take 1 tablet by mouth once daily. cyanocobalamin, vitamin B-12, 5,000 mcg subl Dissolve under the tongue once daily. ascorbic acid, vitamin C, (VITAMIN C) 500 mg tablet Take 1,000 mg by mouth once daily. biotin 5,000 mcg ODT Take 1 tablet by mouth once daily. dulaglutide (TRULICITY) 4.5 mg/0.5 mL pen injector Inject 4.5 mg subcutaneously one time a week. Gets through [facility]. Blood-Glucose Sensor (DEXCOM G7 SENSOR) jackson Apply new sensor every ten (10) days. ciclopirox (LOPROX) 0.77 % cream Apply to affected area two times a day. For 2 to 4 weeks till rash resolves. May treat recurrences for rash under abdominal pannus Lancets Test blood sugar(s) 3 to 4 times daily. Dx: Other DM Code E11.51 Insulin: Yes clobetasol (TEMOVATE) 0.05 % ointment Apply nightly to affected area for 8-12 weeks, then 1-3x weekly for maintenance apixaban (ELIQUIS) 5 mg tab(s) Take 1 tablet by mouth two times a day. (Patient not taking: Reported on 10/09/2024) nystatin (MYCOSTATIN) powder Apply 1 application to affected area twice daily as needed. For prevention nitroglycerin sublingual (NITROQUICK) 0.4 mg SL tablet Dissolve 1 tablet under the tongue as needed. As directed insulin needles, DISPOSABLE, (PEN NEEDLE) 31 gauge x 5/16 Use one needle per dose. 5 per day. bacitracin zinc 500 unit/gram ointment Apply to affected area twice daily. As directed for affected area till healed cetirizine (ZYRTEC) 10 mg tablet Take 1 tablet by mouth once daily as needed. polyethylene glycol 3350 (MIRALAX) 17 gram/dose powder Take 17 g by mouth as directed. Estimated Blood Loss: Minimal Specimens: * No specimens in log * Implants: Implant Name Type Inv. Item Serial No. Vp Biology Lot No. LRB No. Used Action DEVICE ANGIO-SEAL VIP 6FR .035IN COLLAGEN 70CM CLOSURE VALUELINK GUIDEWIRE - [id number] Implant DEVICE ANGIO-SEAL VIP 6FR .035IN COLLAGEN 70CM CLOSURE VALUELINK GUIDEWIRE [employer] [facility] [facility] [id number] Left 1 Implanted Complications: None Pre-Op/Pre-Procedure Diagnosis: PAD with gangrene Post-Op/Post-Procedu re Diagnosis: Same as Preop SIGNATURE: Odin Dobbins MD PATIENT NAME: Miriam Thomas DATE: October 10, 2024 TIME: 10:30 AM PAGER/CONTACT #: Vascular Surgery Normal [facility] Basic metabolic 2000 panelon 10-10-2024 Anion gap [Moles/Vol] 11 mmol/L Normal 8-15 [facility] Comment on above: Order Comment: Speci men Type: BLOOD SPECIMEN Ordering Facility: [facility] Address: [address] [place] [address] Performed By: #### 2 4321-2 #### [facility] CLIA [id number] [address] [place] [address] [place] Calcium [Mass/Vol] 10.6 mg/dL High 8.5-10.2 [facility] Comment on above: Order Comment: Tari hess Type: BLOOD SPECIMEN Ordering Facility: [facility] Address: [address] [place] [address] Performed By: #### 2 4321-2 #### [facility] CLIA [id number] [address] Chloride [Moles/Vol] 106 mmol/L Normal 98-107 [facility] Comment on above: Order Comment: Tari hess Type: BLOOD SPECIMEN Ordering Facility: [facility] Address: [address] [place] [address] Performed By: #### 2 4321-2 #### [facility] CLIA [id number] [address] [place] CO2 [Moles/Vol] 23 mmol/L Normal 22-30 [facility] Comment on above: Order Comment: Tari men Type: BLOOD SPECIMEN Ordering Facility: [facility] Address: [address] [place] [address] Performed By: #### 2 4321-2 #### [facility] CLIA [id number] [address] Creatinine [Mass/Vol] 1.61 mg/dL High 0.58-0.96 [facility] Comment on above: Order Comment: Tari men Type: BLOOD SPECIMEN Ordering Facility: [facility] Address: [address] [place] [address] Performed By: #### 2 4321-2 #### [facility] CLIA [id number] [address] Creatinine and Glomerular filtration rate.predicted panel (S/P/Bld) 35 mL/min/1.73m??? Low >=60 [facility] Comment on above: Order Comment: Tari hess Type: BLOOD SPECIMEN Ordering Facility: [facility] Address: [address] [place] [address] Result Comment: Conchita mated Glomerular Filtration Rate (eGFR) is calculated using the 2020 CKD-EPI creatinine equation. This equation utilizes serum creatinine, sex, and age as parameters. The creatinine assay has traceable calibration to isotope dilution-mass spectrometry. Refer to KDIGO guidelines for clinical interpretation. In patients with unstable renal function, e.g. those with acute kidney injury, the eGFR may not accurately reflect actual GFR. Performed By: #### 2 4321-2 #### [facility] CLIA [id number] [address] [place] [address] [place] Glucose [Mass/Vol] 148 mg/dL High 74-99 [facility] Comment on above: Order Comment: Tari hess Type: BLOOD SPECIMEN Ordering Facility: [facility] Address: [address] [place] [address] Result Comment: The [place] Diabetes Association (ADA) provides guidance for cutoff values for fasting glucose and random glucose. The ADA defines fasting as no caloric intake for at least 8 hours. Fasting plasma glucose results between 100 to 125 mg/dL indicate increased risk for diabetes (prediabetes). Fasting plasma glucose results greater than or equal to 126 mg/dL meet the criteria for diagnosis of diabetes. In the absence of unequivocal hyperglycemia, results should be confirmed by repeat testing. In a patient with classic symptoms of hyperglycemia or hyperglycemic crisis, random plasma glucose results greater than or equal to 200 mg/dL meet the criteria for diagnosis of diabetes. Reference: Standards of Medical Care in Diabetes 2016, [place] [employer]. Diabetes Care. 2016.39(Suppl 1). Performed By: #### 2 4321-2 #### [facility] CLIA [id number] [address] [place] [address] [place] Potassium [Moles/Vol] 4.5 mmol/L Normal 3.7-5.1 [facility] Comment on above: Order Comment: Tari hess Type: BLOOD SPECIMEN Ordering Facility: [facility] Address: [address] [place] [address] Performed By: #### 2 4321-2 #### [facility] CLIA [id number] [address] [place] [address] [place] Sodium [Moles/Vol] 140 mmol/L Normal 136-144 [facility] Comment on above: Order Comment: Tari hess Type: BLOOD SPECIMEN Ordering Facility: [facility] Address: [address] [place] [address] Performed By: #### 2 4321-2 #### [facility] CLIA [id number] [address] [place] [address] [place] Urea nitrogen [Mass/Vol] 25 mg/dL High 7-21 [facility] Comment on above: Order Comment: Tari hess Type: BLOOD SPECIMEN Ordering Facility: [facility] Address: [address] [place] [address] Performed By: #### 2 4321-2 #### [facility] CLIA [id number] [address] CBC panel Auto (Bld)on 10-10 Erythrocyte distribution width (RBC) [Ratio] 14.5 % Normal 11.5-15.0 [facility] Comment on above: Order Comment: Speci men Type: BLOOD SPECIMEN Ordering Facility: [facility] Address: [address] [place] [address] Performed By: #### 5 8410-2 #### [facility] CLIA [id number] [address] Hematocrit (Bld) [Volume fraction] 29.4 % Low 36.0-46.0 [facility] Comment on above: Order Comment: Speci men Type: BLOOD SPECIMEN Ordering Facility: [facility] Address: [address] [place] [address] Performed By: #### 5 8410-2 #### [facility] CLIA [id number] [address] Hemoglobin (Bld) [Mass/Vol] 9.2 g/dL Low 11.5-15.5 [facility] Comment on above: Order Comment: Speci men Type: BLOOD SPECIMEN Ordering Facility: [facility] Address: [address] [place] [address] Performed By: #### 5 8410-2 #### [facility] CLIA [id number] [address] MCH (RBC) [Entitic mass] 28.7 pg Normal 26.0-34.0 [facility] Comment on above: Order Comment: Speci men Type: BLOOD SPECIMEN Ordering Facility: [facility] Address: [address] [place] [address] Performed By: #### 5 8410-2 #### [facility] CLIA [id number] [address] MCHC (RBC) [Mass/Vol] 31.3 g/dL Normal 30.5-36.0 [facility] Comment on above: Order Comment: Speci men Type: BLOOD SPECIMEN Ordering Facility: [facility] Address: [address] [place] [address] Performed By: #### 5 8410-2 #### [facility] CLIA [id number] [address] MCV (RBC) [Entitic vol] 91.6 fL Normal 80.0-100.0 M [facility] Comment on above: Order Comment: Speci men Type: BLOOD SPECIMEN Ordering Facility: [facility] Address: [address] [place] [address] Performed By: #### 5 8410-2 #### [facility] CLIA [id number] [address] Nucleated RBC (Bld) [#/Vol] 10*3/uL Normal <0.01 [facility] Comment on above: Order Comment: Speci men Type: BLOOD SPECIMEN Ordering Facility: [facility] Address: [address] [place] [address] Performed By: #### 5 8410-2 #### [facility] CLIA [id number] [address] [place] Platelet mean volume (Bld) [Entitic vol] 10.4 fL Normal 9.0-12.7 [facility] Comment on above: Order Comment: Speci men Type: BLOOD SPECIMEN Ordering Facility: [facility] Address: [address] [place] [address] Performed By: #### 5 8410-2 #### [facility] CLIA [id number] [address] Platelets (Bld) [#/Vol] 257 10*3/uL Normal 150-400 [facility] Comment on above: Order Comment: Speci men Type: BLOOD SPECIMEN Ordering Facility: [facility] Address: [address] [place] [address] Performed By: #### 5 8410-2 #### [facility] CLIA [id number] [address] [place] RBC (Bld) [#/Vol] 3.21 10*6/uL Low 3.90-5.20 [facility] Comment on above: Order Comment: Speci men Type: BLOOD SPECIMEN Ordering Facility: [facility] Address: [address] [place] [address] Performed By: #### 5 8410-2 #### [facility] CLIA [id number] [address] WBC (Bld) [#/Vol] 8.70 10*3/uL Normal 3.70-11.00 [facility] Comment on above: Order Comment: Speci men Type: BLOOD SPECIMEN Ordering Facility: [facility] Address: [address] [place] [id number] Performed By: #### 5 8410-2 #### [facility] CLIA [id number] [address] OPERATIVE NOon 10-10-2024 OPERATIVE NO HNO ID: [id number] Author: ODIN DOBBINS MD Service: Vascular Surgery Author Type: Physician Type: Operative Report Filed: 10/10/2024 12:16 Note Text: OPERATIVE/PROCEDURE REPORT LOG ID: [id number] Surgery/Procedure Date: 10/10/2024 Incision/Procedure Start Time: 9:23 AM Incision Close/Procedure End Time: 10:21 AM Surgeon(s)/Procedura list(s) and Tubular Stock Glass Bulb Machine Former(s): Surgeons and Role: * Odin Dobbins MD - Primary No Additional Staff INTERVENTIONAL PROCEDURE: Ultrasound-guided left common femoral access Aorta and pelvic angiogram with CO2, radiographic interpretation Right lower extremity angiogram with CO2, radiographic interpretation Balloon angioplasty of right Mid popliteal artery with 6x60 IN.PACT PROCEDURE INDICATION: 69 year old female who presents for angiogram with possible intervention for PAD with right digit gangrene. Prior to performing right lower extremity arteriogram with possible endovascular revascularization (atherectomy/yacht captain/roberth nt) the risks and benefits of this planned approach were discussed with the patient in detail including but not limited to bleeding, arterial injury, infection, TX, contrast nephropathy, distal embolization and limb loss. We also discussed that the outcome of the arteriogram may be that open surgery to address the arterial disease. Alternatives of continued medical therapy and observation were discussed as well. Ms. Thomas expressed a clear understanding of our discussion as well as the procedure and alternatives and agreed to proceed with an arteriogram. Anesthesia: Procedural Sedation PROCEDURAL DETAILS The patient was taken to the endovascular suite and laid supine on the table. A huddle was performed with the surgery and nursing teams confirming the patient as Miriam Thomas with a date of 1955, the correct medical record number, allergies, as well as and nature and laterality of the procedure. The patient received IV sedation performed by the nurse and overseen by the performing physician. The patient received preoperative antibiotics. The bilateral groins were prepped and draped in the usual sterile fashion. Ultrasound guidance was used during the procedure to establish and assess the patency of the common femoral artery to be punctured. Using local anesthesia and a micropuncture system the left common femoral artery was accessed using real-time sonography. Needle entry into the artery was visualized with ultrasound and permanent ultrasound images were obtained. A 5-Yemeni sheath was exchanged into the NARROW GAUGE OPERATOR over a stiff glide wire. The wire and a curved flush catheter were advanced into the distal abdominal aorta and a diagnostic aorto-biiliac arteriogram was performed. Next, up and over access was obtained. With the catheter positioned in the contralateral external iliac artery, angiography with runoff to the foot was performed with selected DSA runs completed in a stepwise fashion. A 6F sheath was then exchanged up and over the aortic bifurcation into the contralateral common femoral artery. Systemic heparin was administered with redosing as appropriate for the remainder of the case. There was a focal short segment greater than 70% stenosis at the mid above-knee popliteal artery and P1. The right popliteal stenosis was crossed with a glidewire wire and ballooned with a 6 mm X 60 mm DCB Completion arteriogram revealed flow through the intervened upon segment improved with a technically satisfactory result and no evidence of significant residual stenosis. The long sheath was exchanged for a short sheath and the wire was removed. Protamine was administered to reverse the anticoagulation. A Angioseal closure device was used and additional manual pressure was held until hemostasis achieved. On-table duplex ultrasound was performed confirming no access site pseudoaneurysm, dissection, or occlusion. The patient tolerated the procedure well and was taken to the PACU in stable condition. ARTERIOGRAM FINDINGS: Aorta: No Stenosis Right Lower Extremity: Common iliac artery: No Stenosis, Diffuse, Calcified External iliac artery:No Stenosis, Calcified Common femoral artery: No Stenosis, Calcified Profunda femoral artery: No Stenosis Superficial femoral artery: No Stenosis, Calcified Popliteal artery: Focal 70% stenosis at P1 Lower leg and foot runoff: Anterior tibial artery: No Stenosis, Calcified Tibioperoneal trunk: No Stenosis Peroneal artery: No Stenosis Posterior tibial artery: Chronic Total Occlusion, recannulation through the peroneal collateral at the ankle Left Lower Extremity: Common iliac artery: No Stenosis External iliac artery: No Stenosis Common femoral artery: No Stenosis Pre-Op/Pre-Procedure Diagnosis: PAD with digit gangrene Post-Op/Post-Procedu re Diagnosis: Same Estimated Blood Loss: 5 mls Specimens: None Implantable Devices: Implant Name Type Inv. Item Serial No. Manufac (more content not included)... [facility] 10-09-2024 [facility] Tele[facility] ([facility]) MIRIAM THOMAS ([id number]) 1955 F Date Time Provider Department 10/09/24 DANYELL GRIER [facility] During your visit today, we recorded the following information about you: Danyell Grier RN 10/09/2024 9:56 AM Signed LM with patient. NPO after MN, may takes meds with sips of water. You will receive a call the day before with an arrival and procedure time. Will need someone to bring you and take you home. Entrance A to the 1st floor surg area. Follow any instructions given regarding blood thinner and Trulicity. Allergies As of Date: 10/09/2024 Noted Allergy Reaction MELOXICAM 06/22/2016 8 - GI Upset SULFA (SULFONAMIDE ANTIBIOTICS) 10/15/2014 7 - Swelling Comments: Facial swelling, shortness of breath. Date Reviewed: 10/09/2024 Reviewed by: Holly James APRN.COMMUNICABLE DISEASE SPECIALIST - Fully Assessed Prescriptions as of 10/09/2024 - dulaglutide (TRULICITY) 4.5 mg/0.5 mL pen injector Inject 4.5 mg subcutaneously one time a week. Gets through [employer]. - insulin glargine 100 unit/mL (3 mL) Inject 26 Units subcutaneously every morning. (Basaglar) Patient assistance medication. - insulin lispro (HUMALOG KWIKPEN) 100 unit/mL Inject 8 units with breakfast and 4 units with evening meal as directed. Patient assistance medication. - escitalopram oxalate (LEXAPRO) 20 mg tablet Take 1 tablet by mouth once daily. - atorvastatin (LIPITOR) 40 mg tablet Take 1 tablet by mouth daily at bedtime. For cholesterol. - buPROPion XL (WELLBUTRIN XL) 150 mg 24 hr tablet Take 1 tablet by mouth once daily. - tamsulosin (FLOMAX) 0.4 mg Take 2 capsules by mouth once daily. - gabapentin (NEURONTIN) 400 mg capsule Take 1 capsule by mouth two times a day AND 2 capsules daily at bedtime. Do all this for 90 days. - Blood-Glucose Sensor (Planspot G7 SENSOR) jackson Apply new sensor every ten (10) days. - ciclopirox (LOPROX) 0.77 % cream Apply to affected area two times a day. For 2 to 4 weeks till rash resolves. May treat recurrences for rash under abdominal pannus - acyclovir (ZOVIRAX) 400 mg tablet Take 1 tablet by mouth two times a day. - blood sugar diagnostic (BLOOD GLUCOSE TEST) test strip Test blood sugar(s) 3 to 4 times daily. Dx: Other DM Code E11.51 Insulin: Yes One touch or Accucheck strips or strips covered by her insurance. - Lancets Test blood sugar(s) 3 to 4 times daily. Dx: Other DM Code E11.51 Insulin: Yes - clobetasol (TEMOVATE) 0.05 % ointment Apply nightly to affected area for 8-12 weeks, then 1-3x weekly for maintenance - apixaban (ELIQUIS) 5 mg tab(s) Take 1 tablet by mouth two times a day. - hydrALAZINE (APRESOLINE) 50 mg tablet Take 1 tablet by mouth two times a day. Hold for SBP less than 120mm HG - pantoprazole DR (PROTONIX) 40 mg tablet Take 1 tablet by mouth once daily. - carvedilol (COREG) 6.25 mg tablet Take 1 tablet by mouth two times a day with meals. - nystatin (MYCOSTATIN) powder Apply 1 application to affected area twice daily as needed. For prevention - B complex w-C no.20/folic acid (B COMPLEX WITH C 20-FOLIC ACID ORAL) Take 1 tablet by mouth once daily. - Magnesium Oxide 500 mg tab Take 1 tablet by mouth once daily. For constipation - Blood-Glucose Meter,Continuous (DEXCOM G7 ENVELOPE SEALER) misc Use to check blood sugar at least four (4) times daily. - nitroglycerin sublingual (NITROQUICK) 0.4 mg SL tablet Dissolve 1 tablet under the tongue as needed. As directed - insulin needles, DISPOSABLE, (PEN NEEDLE) 31 gauge x 5/16 Use one needle per dose. 5 per day. - bacitracin zinc 500 unit/gram ointment Apply to affected area twice daily. As directed for affected area till healed - cetirizine (ZYRTEC) 10 mg tablet Take 1 tablet by mouth once daily as needed. - aspirin, enteric coated (ASPIRIN, ENTERIC COATED) 81 mg EC tablet Take 1 tablet by mouth once daily. - cyanocobalamin, vitamin B-12, 5,000 mcg subl Dissolve under the tongue once daily. - ascorbic acid, vitamin C, (VITAMIN C) 500 mg tablet Take 1,000 mg by mouth once daily. - biotin 5,000 mcg ODT Take 1 tablet by mouth once daily. - polyethylene glycol 3350 (MIRALAX) 17 gram/dose powder Take 17 g by mouth as directed. Meds Comments as of 12/16/2019: 12/16/19 The medications are managed by this patient by: PATIENT Zulay Tejeda Pharm-T Problem List As Of Date 10/09/2024 Noted Resolved Hemiparesis affecting dominant side as late eff*10/15/2014 Type 2 diabetes mellitus with peripheral neurop*10/15/2014 01/16/2019 Dupuytren's disease of palm [M72.0] 10/15/2014 Genital herpes simplex type 1 infection [A60.00]10/15/2014 Anxiety [F41.9] 10/15/2014 Balance problem [R26.89] 10/15/2014 03/05/2020 Diabetic ulcer of left foot associated with tristen*12/21/2015 01/31/2017 Type 2 diabetes mellitus with diabetic neuropat*12/22/2015 Reactive depression [F32.9] 12/28/2015 03/05/2020 Essential hypertension [I (more content not included)... [facility] Telephone ([facility]) MIRIAM THOMAS ([id number]) 1955 F Date Time Provider Department 10/09/24 HOLLY JAMES During your visit today, we recorded the following information about you: Holly James APRN.BG 10/09/2024 10:16 AM Signed Please request most recent OV and cardiac testing, DOS is tomorrow, please request urgent if possible. [facility] Sari Meredith LPN 10/09/2024 12:19 PM Signed Phoned [facility] and they will be faxing over records. Sari Meredith LPN Awaiting fax Sari Meredith LPN 10/09/2024 1:03 PM Signed Office visit and cardiac testing received and placed on providers desk. Sari Meredith LPN Allergies As of Date: 10/09/2024 Noted Allergy Reaction MELOXICAM 06/22/2016 8 - GI Upset SULFA (SULFONAMIDE ANTIBIOTICS) 10/15/2014 7 - Swelling Comments: Facial swelling, shortness of breath. Date Reviewed: 10/09/2024 Reviewed by: Holly James APRN.BG - Fully Assessed Reason for Visit: Request Outside Medical Records [[id number]] Prescriptions as of 10/16/2024 - clopidogrel (PLAVIX) 75 mg tablet Take 1 tablet by mouth once daily. - dulaglutide (TRULICITY) 4.5 mg/0.5 mL pen injector Inject 4.5 mg subcutaneously one time a week. Gets through [employer]. - insulin glargine 100 unit/mL (3 mL) Inject 26 Units subcutaneously every morning. (Basaglar) Patient assistance medication. - insulin lispro (HUMALOG KWIKPEN) 100 unit/mL Inject 8 units with breakfast and 4 units with evening meal as directed. Patient assistance medication. - escitalopram oxalate (LEXAPRO) 20 mg tablet Take 1 tablet by mouth once daily. - atorvastatin (LIPITOR) 40 mg tablet Take 1 tablet by mouth daily at bedtime. For cholesterol. - buPROPion XL (WELLBUTRIN XL) 150 mg 24 hr tablet Take 1 tablet by mouth once daily. - tamsulosin (FLOMAX) 0.4 mg Take 2 capsules by mouth once daily. - gabapentin (NEURONTIN) 400 mg capsule Take 1 capsule by mouth two times a day AND 2 capsules daily at bedtime. Do all this for 90 days. - Blood-Glucose Sensor (Planspot G7 SENSOR) jackson Apply new sensor every ten (10) days. - ciclopirox (LOPROX) 0.77 % cream Apply to affected area two times a day. For 2 to 4 weeks till rash resolves. May treat recurrences for rash under abdominal pannus - acyclovir (ZOVIRAX) 400 mg tablet Take 1 tablet by mouth two times a day. - blood sugar diagnostic (BLOOD GLUCOSE TEST) test strip Test blood sugar(s) 3 to 4 times daily. Dx: Other DM Code E11.51 Insulin: Yes One touch or Accucheck strips or strips covered by her insurance. - Lancets Test blood sugar(s) 3 to 4 times daily. Dx: Other DM Code E11.51 Insulin: Yes - clobetasol (TEMOVATE) 0.05 % ointment Apply nightly to affected area for 8-12 weeks, then 1-3x weekly for maintenance - hydrALAZINE (APRESOLINE) 50 mg tablet Take 1 tablet by mouth two times a day. Hold for SBP less than 120mm HG - pantoprazole DR (PROTONIX) 40 mg tablet Take 1 tablet by mouth once daily. - carvedilol (COREG) 6.25 mg tablet Take 1 tablet by mouth two times a day with meals. - nystatin (MYCOSTATIN) powder Apply 1 application to affected area twice daily as needed. For prevention - B complex w-C no.20/folic acid (B COMPLEX WITH C 20-FOLIC ACID ORAL) Take 1 tablet by mouth once daily. - Magnesium Oxide 500 mg tab Take 1 tablet by mouth once daily. For constipation - Blood-Glucose Meter,Continuous (DEXB2B-Center G7 ENVELOPE SEALER) [facility] Use to check blood sugar at least four (4) times daily. - nitroglycerin sublingual (NITROQUICK) 0.4 mg SL tablet Dissolve 1 tablet under the tongue as needed. As directed - insulin needles, DISPOSABLE, (PEN NEEDLE) 31 gauge x 5/16 Use one needle per dose. 5 per day. - bacitracin zinc 500 unit/gram ointment Apply to affected area twice daily. As directed for affected area till healed - cetirizine (ZYRTEC) 10 mg tablet Take 1 tablet by mouth once daily as needed. - aspirin, enteric coated (ASPIRIN, ENTERIC COATED) 81 mg EC tablet Take 1 tablet by mouth once daily. - cyanocobalamin, vitamin B-12, 5,000 mcg subl Dissolve under the tongue once daily. - ascorbic acid, vitamin C, (VITAMIN C) 500 mg tablet Take 1,000 mg by mouth once daily. - biotin 5,000 mcg ODT Take 1 tablet by mouth once daily. - polyethylene glycol 3350 (MIRALAX) 17 gram/dose powder Take 17 g by mouth as directed. Meds Comments as of 12/16/2019: 12/16/19 The medications are managed by this patient by: PATIENT Zulay Eber Tejeda Pharm-T Problem List As Of Date 10/09/2024 Noted Resolved Hemiparesis affecting dominant side as late eff*10/15/2014 Type 2 diabetes mellitus with peripheral neurop*10/15/2014 01/16/2019 Dupuytren's disease of palm [M72.0] 10/15/2014 Genital herpes simplex type 1 infection [A60.00]10/15/2014 Anxiety [F41.9] 10/15/2014 Balance problem [R26.89] 10/15/2014 03/05/2020 Diabetic ulcer of left foot ass (more content not included)... Normal [facility] HISTORY PHYSICALon 5 HISTORY PHYSICAL HNO ID: [id number] Author: HOLLY JAMES APRN.BG Service: ? 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 ([facility]) Assessment: hx, and with left BKA, pt can transfer with stand by assist Essential hypertension Assessment: controlled on rx Last 14 BP Last 14 Encounter BP Readings: Date: BP: 10/09/2024 132/66 09/29/2024 122/62 06/13/2024 157/70 04/03/2024 146/68 03/17/2024 108/58 06/13/2023 130/54 05/15/2023 118/68 04/10/2023 136/82 12/11/2022 122/64 10/12/2021 132/62 10/05/2020 130/70 09/20/2020 150/90 08/31/2020 118/64 08/16/2020 106/58 Hyperlipidemia Assessment: c/w statin Hypertensive CKD (chronic kidney disease) Assessment: Creatinine Date Value Ref Range Status 06/13/2024 1.78 (H) 0.58 - 0.96 mg/dL Final 12/11/2023 1.68 (H) 0.58 - 0.96 mg/dL Final 12/07/2022 1.93 (H) 0.58 - 0.96 mg/dL Final 05/09/2021 1.77 (H) 0.58 - 0.96 mg/dL Final PVD (peripheral vascular disease) ([facility]) Assessment: following vascular, pending procedure, Most recent PVRs showing a TBI on the right of 0.15 with severely diminished waveforms. Previously underwent left leg angiogram with intervention SFA stenting with Dr. 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 Gastroesophageal reflux disease Assessment: controlled on rx Urinary retention Assessment: controlled on rx Type 2 diabetes mellitus with stage 3b chronic kidney disease, with long-term current use of insulin ([facility]) Assessment: IDDM Hemoglobin A1C (%) Date Value 06/13/2024 6.1 05/09/2021 5.4 Leukocytosis Assessment: chronic WBC Date Value Ref Range Status 12/11/2023 9.99 3.70 - 11.00 k/uL Final Recurrent major depression in partial remission ([facility]) Assessment: stable on rx per pt Obesity, Class I, BMI 30-34.9 Assessment: Body mass index is 33.11 kg/m?. JOSE (obstructive sleep apnea) Assessment: cwcp Olsen Activity Status Index: METS: Climb a flight of stairs or walk up a hill (5.50 METs) DASI Score: 5.5 Patient denies any chest pain or undue shortness of breath with the above physical activity. Clinical Frailty Scale: 1. Very fit STOP-Bang Score: Denies snoring loudly Denies feeling tired, fatigued, or sleepy during the daytime Has not been observed to stop breathing or choking/gasping during sleep Denies having high blood pressure BMI less than or equal to 35 kg/m2 Patient 50 years old or younger Does not have a large neck STOP-Bang Score: 0 [id number] Score: Hypertension history: Yes Stroke/TIA/thromboem bolism history: Yes Vascular disease history: Yes Diabetes history: Yes [id number] Score: ANESTHESIA FINDINGS: Intubation History: No history of difficult intubation Significant Anesthesia Considerations: none Airway History: No history of difficult airway I - PHYSICAL EVALUATION AIRWAY Patient intubated: No. Tracheostomy tube not present Mallampati: II. TM distance: >3 FB. Neck ROM: full ROM without neurological symptoms. Mouth opening: adequate. Short neck: no. Thick neck: no Ortiz present: no Lip Bite Test: I Microretrognathia/Mi cronagthia/Recessed Chin: No DENTAL Dental findings: teeth intact. Additional comments: +caps/back. II - ANESTHESIA PLAN Anesthetic Plan: other Beta Coty Monitoring Plan Post Procedure Analgesic Plan Prepared for Surgery: optimally prepared for surgery, pending [see comment]. CONSULTS: Patient does not require consults for optimization at this time Planned Anesthetic: other anesthesia choice The Following Tests/Procedures Have Been Initiated: No orders of the defined types were placed in this encounter. REASON FOR VISIT: Miriam Thomas is a 69 year old female who is scheduled for Procedure(s): ANGIOGRAM EXTREMITY UNILATERAL RADIOLOGICAL (Right) at the request of Odin Hanley MD for consultation. My final recommendation will be communicated back to the requesting physician by way of shared medical record or letter. Subjective The patient has the following: COVID-19 Immunization Status Discontinued - Covid-19 Vaccine Discontinued 12/12/2023 Frequency changed to Never by Earl Shepherd MD (Patient Preference - Does not want COVID vaccine. Never had COVID infection) 12/11/2022 Postponed until 12/12/2023 by Earl Shepherd MD (Declined at this time) 04/09/2021 Postponed until 04/09/2022 by Earl Shepherd MD (Declined at this time - Woried about potential side effects; depression and anxiety also) (more content not included)... Normal [facility] MR Foot - right WO contrasto n 10-09-2024 IMPRESSION: 1. Marrow signal abnormality in the tuft of the second toe consistent with osteomyelitis. 2. Marrow signal abnormality in the the third toe tuft, nonspecific, and can be seen with early osteomyelitis. 3. Minimal marrow signal changes in the saulo of the first, fourth and fifth toes likely reactive in nature. Chemical Process Operator: PSYCHIATRICB Transcribe Date/Time: Oct 09 2024 10:35A Dictated by : ARINA DELANEY MD This examination was interpreted and the report reviewed and electronically signed by: ARINA DELANEY MD on Oct 09 2024 10:49AM [facility] DIVISION OF RADIOLOGY * * *Final Report* * * DATE OF EXAM: Oct 09 2024 9:55AM [facility] 0195 - MRI FOOT/TOES WO IVCON RT / PROCEDURE REASON: Other acute osteomyelitis of right foot (HCC) * * * * Physician Interpretation * * * * MRI FOOT/TOES WO IVCON RT HISTORY: Ulcers on the first through third toes. TECHNIQUE: Routine MRI of the forefoot ; COMPARISON: Foot radiographs dated 09/17/2024 RESULT: BONE MARROW: There is homogeneously decreased T1 signal in the tuft of the second toe and increased T2 signal throughout the distal phalanx of the second toe. There is discordant marrow signal in the tuft of the third toe with mildly decreased patchy T1 signal and increased T2 signal in the tuft of the third toe. Minimal amount of increased T2 signal without T1 signal changes are noted at the saulo of the first, fourth and fifth toes. Bone marrow signal intensity is otherwise within normal limits without evidence of fracture, osteomyelitis or marrow replacing lesion. CARTILAGE: No discrete articular cartilage abnormalities seen. TENDONS: The flexor and extensor tendons are intact and normal appearing. PLANTAR PLATES: The plantar plates are intact appearing. JOINT FLUID: No significant joint effusion seen. INTERMETATARSAL SPACES: No evidence of Peter's neuroma. LISFRANC LIGAMENT: Intact PLANTAR APONEUROSIS: The visualized portions of the plantar aponeurosis in within normal limits. MUSCLES: Increased T2 signal and fatty atrophy likely due to chronic diabetic changes. OTHER: No other significant abnormality identified. DIVISION OF RADIOLOGY Provider, [facility] [place] - 10/09/2024 * * *Final Report* * * DATE OF EXAM: Oct 09 2024 9:55AM [facility] 0195 - MRI FOOT/TOES WO IVCON RT / PROCEDURE REASON: Other acute osteomyelitis of right foot (HCC) * * * * Physician Interpretation * * * * MRI FOOT/TOES WO IVCON RT HISTORY: Ulcers on the first through third toes. TECHNIQUE: Routine MRI of the forefoot ; COMPARISON: Foot radiographs dated 09/17/2024 RESULT: BONE MARROW: There is homogeneously decreased T1 signal in the tuft of the second toe and increased T2 signal throughout the distal phalanx of the second toe. There is discordant marrow signal in the tuft of the third toe with mildly decreased patchy T1 signal and increased T2 signal in the tuft of the third toe. Minimal amount of increased T2 signal without T1 signal changes are noted at the saulo of the first, fourth and fifth toes. Bone marrow signal intensity is otherwise within normal limits without evidence of fracture, osteomyelitis or marrow replacing lesion. CARTILAGE: No discrete articular cartilage abnormalities seen. TENDONS: The flexor and extensor tendons are intact and normal appearing. PLANTAR PLATES: The plantar plates are intact appearing. JOINT FLUID: No significant joint effusion seen. INTERMETATARSAL SPACES: No evidence of Peter's neuroma. LISFRANC LIGAMENT: Intact PLANTAR APONEUROSIS: The visualized portions of the plantar aponeurosis in within normal limits. MUSCLES: Increased T2 signal and fatty atrophy likely due to chronic diabetic changes. OTHER: No other significant abnormality identified. IMPRESSION IMPRESSION: 1. Marrow signal abnormality in the tuft of the second toe consistent with osteomyelitis. 2. Marrow signal abnormality in the the third toe tuft, nonspecific, and can be seen with early osteomyelitis. 3. Minimal marrow signal changes in the saulo of the first, fourth and fifth toes likely reactive in nature. Chemical Process Operator: SARA Transcribe Date/Time: Oct 09 2024 10:35A Dictated by : ARINA DELANEY MD This examination was interpreted and the report reviewed and electronically signed by: ARINA DELANEY MD on Oct 09 2024 10:49AM EST [facility] Radiology Study observation (narrative) [facility] MR Foot - right WO contrastO rdered By: [facility] Provider on 10-09-2024 [facility] MRI FOOT/TOES WO IVCON RTon 10-09-2024 MRI FOOT/TOES WO IVCON RT * * *Final Report* * * DATE OF EXAM: Oct 09 2024 9:55AM [facility] 0195 - MRI FOOT/TOES WO IVCON RT / PROCEDURE REASON: Other acute osteomyelitis of right foot (HCC) * * * * Physician Interpretation * * * * MRI FOOT/TOES WO IVCON RT HISTORY: Ulcers on the first through third toes. TECHNIQUE: Routine MRI of the forefoot ; COMPARISON: Foot radiographs dated 09/17/2024 RESULT: BONE MARROW: There is homogeneously decreased T1 signal in the tuft of the second toe and increased T2 signal throughout the distal phalanx of the second toe. There is discordant marrow signal in the tuft of the third toe with mildly decreased patchy T1 signal and increased T2 signal in the tuft of the third toe. Minimal amount of increased T2 signal without T1 signal changes are noted at the saulo of the first, fourth and fifth toes. Bone marrow signal intensity is otherwise within normal limits without evidence of fracture, osteomyelitis or marrow replacing lesion. CARTILAGE: No discrete articular cartilage abnormalities seen. TENDONS: The flexor and extensor tendons are intact and normal appearing. PLANTAR PLATES: The plantar plates are intact appearing. JOINT FLUID: No significant joint effusion seen. INTERMETATARSAL SPACES: No evidence of Peter's neuroma. LISFRANC LIGAMENT: Intact PLANTAR APONEUROSIS: The visualized portions of the plantar aponeurosis in within normal limits. MUSCLES: Increased T2 signal and fatty atrophy likely due to chronic diabetic changes. OTHER: No other significant abnormality identified. IMPRESSION: 1. Marrow signal abnormality in the tuft of the second toe consistent with osteomyelitis. 2. Marrow signal abnormality in the the third toe tuft, nonspecific, and can be seen with early osteomyelitis. 3. Minimal marrow signal changes in the saulo of the first, fourth and fifth toes likely reactive in nature. Chemical Process Operator: PSCB Transcribe Date/Time: Oct 09 2024 10:35A Dictated by : ARINA DELANEY MD This examination was interpreted and the report reviewed and electronically signed by: ARINA DELANEY MD on Oct 09 2024 10:49AM EST [id number] Normal [facility] CNPNon 10-08-2024 CNPN Telephone (VASSMD) MIRIAM THOMAS ([id number]) 1955 F Date Time Provider Department 10/08/24 ODIN DOBBINS During your visit today, we recorded the following information about you: Ina Rankin 10/08/2024 12:01 PM Signed PT is requesting a return call to go over medication and insulin instructions for the morning of her up coming procedure. Call [phone]. Lyudmila Tijerina RN 10/08/2024 1:22 PM Signed Spoke with patient medication instructions reviewed. Per Dr. Dobbins ok to take 1/2 her normal am dose of long acting insulin. Will hold short acting insulin and has been holding Eliquis as advised. Patient will have PAT testing tomorrow. Allergies As of Date: 10/08/2024 Noted Allergy Reaction MELOXICAM 06/22/2016 8 - GI Upset SULFA (SULFONAMIDE ANTIBIOTICS) 10/15/2014 7 - Swelling Comments: Facial swelling, shortness of breath. Date Reviewed: 10/02/2024 Reviewed by: Leti Roger DPM - Fully Assessed Reason for Visit: Patient Question [5777] Prescriptions as of 10/09/2024 - dulaglutide (TRULICITY) 4.5 mg/0.5 mL pen injector Inject 4.5 mg subcutaneously one time a week. Gets through [facility]. - insulin glargine 100 unit/mL (3 mL) Inject 26 Units subcutaneously every morning. (Basaglar) Patient assistance medication. - insulin lispro (HUMALOG KWIKPEN) 100 unit/mL Inject 8 units with breakfast and 4 units with evening meal as directed. Patient assistance medication. - escitalopram oxalate (LEXAPRO) 20 mg tablet Take 1 tablet by mouth once daily. - atorvastatin (LIPITOR) 40 mg tablet Take 1 tablet by mouth daily at bedtime. For cholesterol. - buPROPion XL (WELLBUTRIN XL) 150 mg 24 hr tablet Take 1 tablet by mouth once daily. - tamsulosin (FLOMAX) 0.4 mg Take 2 capsules by mouth once daily. - gabapentin (NEURONTIN) 400 mg capsule Take 1 capsule by mouth two times a day AND 2 capsules daily at bedtime. Do all this for 90 days. - Blood-Glucose Sensor (Planspot G7 SENSOR) jackson Apply new sensor every ten (10) days. - ciclopirox (LOPROX) 0.77 % cream Apply to affected area two times a day. For 2 to 4 weeks till rash resolves. May treat recurrences for rash under abdominal pannus - acyclovir (ZOVIRAX) 400 mg tablet Take 1 tablet by mouth two times a day. - blood sugar diagnostic (BLOOD GLUCOSE TEST) test strip Test blood sugar(s) 3 to 4 times daily. Dx: Other DM Code E11.51 Insulin: Yes One touch or Accucheck strips or strips covered by her insurance. - Lancets Test blood sugar(s) 3 to 4 times daily. Dx: Other DM Code E11.51 Insulin: Yes - clobetasol (TEMOVATE) 0.05 % ointment Apply nightly to affected area for 8-12 weeks, then 1-3x weekly for maintenance - apixaban (ELIQUIS) 5 mg tab(s) Take 1 tablet by mouth two times a day. - hydrALAZINE (APRESOLINE) 50 mg tablet Take 1 tablet by mouth two times a day. Hold for SBP less than 120mm HG - pantoprazole DR (PROTONIX) 40 mg tablet Take 1 tablet by mouth once daily. - carvedilol (COREG) 6.25 mg tablet Take 1 tablet by mouth two times a day with meals. - nystatin (MYCOSTATIN) powder Apply 1 application to affected area twice daily as needed. For prevention - B complex w-C no.20/folic acid (B COMPLEX WITH C 20-FOLIC ACID ORAL) Take 1 tablet by mouth once daily. - Magnesium Oxide 500 mg tab Take 1 tablet by mouth once daily. For constipation - Blood-Glucose Meter,Continuous (DEXCOM G7 ENVELOPE SEALER) misc Use to check blood sugar at least four (4) times daily. - nitroglycerin sublingual (NITROQUICK) 0.4 mg SL tablet Dissolve 1 tablet under the tongue as needed. As directed - insulin needles, DISPOSABLE, (PEN NEEDLE) 31 gauge x 5/16 Use one needle per dose. 5 per day. - bacitracin zinc 500 unit/gram ointment Apply to affected area twice daily. As directed for affected area till healed - cetirizine (ZYRTEC) 10 mg tablet Take 1 tablet by mouth once daily as needed. - aspirin, enteric coated (ASPIRIN, ENTERIC COATED) 81 mg EC tablet Take 1 tablet by mouth once daily. - cyanocobalamin, vitamin B-12, 5,000 mcg subl Dissolve under the tongue once daily. - ascorbic acid, vitamin C, (VITAMIN C) 500 mg tablet Take 1,000 mg by mouth once daily. - biotin 5,000 mcg ODT Take 1 tablet by mouth once daily. - polyethylene glycol 3350 (MIRALAX) 17 gram/dose powder Take 17 g by mouth as directed. 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 Normal [facility] Janice 10-03-2024 CNPN Telephone (INTMWS) MIRIAM THOMAS ([id number]) 1955 F Date Time Provider Department 10/03/24 EARL SHEPHERD During your visit today, we recorded the following information about you: Haley Huang RN 10/03/2024 11:56 AM Signed Patient requesting handicap placard renewal. Patient would like this mailed to her once completed. Address on record has been verified as correct. CARMELO Dinero [place], [place] 10/15/2024 10:25 AM Signed Mailed to patient Ana Worley MA Allergies As of Date: 10/03/2024 Noted Allergy Reaction MELOXICAM 06/22/2016 8 - GI Upset SULFA (SULFONAMIDE ANTIBIOTICS) 10/15/2014 7 - Swelling Comments: Facial swelling, shortness of breath. Date Reviewed: 10/02/2024 Reviewed by: Leti Roger DPM - Fully Assessed Reason for Visit: Handicap Placard Request [Other] Prescriptions as of 10/15/2024 - clopidogrel (PLAVIX) 75 mg tablet Take 1 tablet by mouth once daily. - dulaglutide (TRULICITY) 4.5 mg/0.5 mL pen injector Inject 4.5 mg subcutaneously one time a week. Gets through [facility]. - insulin glargine 100 unit/mL (3 mL) Inject 26 Units subcutaneously every morning. (Basaglar) Patient assistance medication. - insulin lispro (HUMALOG KWIKPEN) 100 unit/mL Inject 8 units with breakfast and 4 units with evening meal as directed. Patient assistance medication. - escitalopram oxalate (LEXAPRO) 20 mg tablet Take 1 tablet by mouth once daily. - atorvastatin (LIPITOR) 40 mg tablet Take 1 tablet by mouth daily at bedtime. For cholesterol. - buPROPion XL (WELLBUTRIN XL) 150 mg 24 hr tablet Take 1 tablet by mouth once daily. - tamsulosin (FLOMAX) 0.4 mg Take 2 capsules by mouth once daily. - gabapentin (NEURONTIN) 400 mg capsule Take 1 capsule by mouth two times a day AND 2 capsules daily at bedtime. Do all this for 90 days. - Blood-Glucose Sensor (DEXCOM G7 SENSOR) jackson Apply new sensor every ten (10) days. - ciclopirox (LOPROX) 0.77 % cream Apply to affected area two times a day. For 2 to 4 weeks till rash resolves. May treat recurrences for rash under abdominal pannus - acyclovir (ZOVIRAX) 400 mg tablet Take 1 tablet by mouth two times a day. - blood sugar diagnostic (BLOOD GLUCOSE TEST) test strip Test blood sugar(s) 3 to 4 times daily. Dx: Other DM Code E11.51 Insulin: Yes One touch or Accucheck strips or strips covered by her insurance. - Lancets Test blood sugar(s) 3 to 4 times daily. Dx: Other DM Code E11.51 Insulin: Yes - clobetasol (TEMOVATE) 0.05 % ointment Apply nightly to affected area for 8-12 weeks, then 1-3x weekly for maintenance - hydrALAZINE (APRESOLINE) 50 mg tablet Take 1 tablet by mouth two times a day. Hold for SBP less than 120mm HG - pantoprazole DR (PROTONIX) 40 mg tablet Take 1 tablet by mouth once daily. - carvedilol (COREG) 6.25 mg tablet Take 1 tablet by mouth two times a day with meals. - nystatin (MYCOSTATIN) powder Apply 1 application to affected area twice daily as needed. For prevention - B complex w-C no.20/folic acid (B COMPLEX WITH C 20-FOLIC ACID ORAL) Take 1 tablet by mouth once daily. - Magnesium Oxide 500 mg tab Take 1 tablet by mouth once daily. For constipation - Blood-Glucose Meter,Continuous (DEXCOM G7 ENVELOPE SEALER) [facility] Use to check blood sugar at least four (4) times daily. - nitroglycerin sublingual (NITROQUICK) 0.4 mg SL tablet Dissolve 1 tablet under the tongue as needed. As directed - insulin needles, DISPOSABLE, (PEN NEEDLE) 31 gauge x 5/16 Use one needle per dose. 5 per day. - bacitracin zinc 500 unit/gram ointment Apply to affected area twice daily. As directed for affected area till healed - cetirizine (ZYRTEC) 10 mg tablet Take 1 tablet by mouth once daily as needed. - aspirin, enteric coated (ASPIRIN, ENTERIC COATED) 81 mg EC tablet Take 1 tablet by mouth once daily. - cyanocobalamin, vitamin B-12, 5,000 mcg subl Dissolve under the tongue once daily. - ascorbic acid, vitamin C, (VITAMIN C) 500 mg tablet Take 1,000 mg by mouth once daily. - biotin 5,000 mcg ODT Take 1 tablet by mouth once daily. - polyethylene glycol 3350 (MIRALAX) 17 gram/dose powder Take 17 g by mouth as directed. 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 Normal [facility] CNOVon 10-02-2024 CNOV Office Visit (AGHWG1) MIRIAM THOMAS ([id number]) 1955 F Date Time Provider Department 10/02/24 2:00 PM LETI ROGER [id number] During your visit today, we recorded the following information about you: Respiration Weight Height 18/minute 82.1 kg 1.575 m Leti Roger DPM 10/06/2024 2:10 PM Signed Chief Complaint: Right 2nd digit wound/discoloration HPI: This 69 year old female with PMH indicated below presents complaining of changes to her right 2nd digit. Patient is here to review her PVRs and discuss plan for right second digit ulcer. Of note she is status post BKA to the left lower extremity due to PAD. Patient was referred to vascular since last visit by me due to her PVR results. She is scheduled for angiogram for October 10. She states that since last visit the hallux cut from her cutting her nails has now turned into a small wound. She is also concerned that the third toe is also starting to change colors too. She denies any pain to the site. She states she has been applying Betadine and covering with bandage daily. States she has been ambulating in normal shoe gear. She denies constitutional symptoms at this time. No other pedal complaints. Last HgbA1c% is 5.7% PCP: Earl Shepherd MD: PAST MEDICAL HISTORY Diagnosis Date Anxiety Arthritis Depression MARITZA exposure in utero Diabetes mellitus ([facility]) 1986 Diabetic neuropathy ([facility]) Gangrene ([facility]) Heart attack ([facility]) [address] Adalberto Power [place] Herniated disc Hypertension Muscular deconditioning PVD (peripheral vascular disease) ([facility]) 10/2019 S/P BKA (below knee amputation) unilateral, left ([facility]) Sleep apnea cpap Snoring Stroke ([facility]) 11/2004 and 05/2005 x 2, right sided weakness : Current Outpatient Medications Medication Sig dulaglutide (TRULICITY) 4.5 mg/0.5 mL pen injector Inject 4.5 mg subcutaneously one time a week. Gets through [facility]. insulin glargine 100 unit/mL (3 mL) Inject 26 Units subcutaneously every morning. (Basaglar) Patient assistance medication. insulin lispro (HUMALOG KWIKPEN) 100 unit/mL Inject 8 units with breakfast and 4 units with evening meal as directed. Patient assistance medication. escitalopram oxalate (LEXAPRO) 20 mg tablet Take 1 tablet by mouth once daily. atorvastatin (LIPITOR) 40 mg tablet Take 1 tablet by mouth daily at bedtime. For cholesterol. buPROPion XL (WELLBUTRIN XL) 150 mg 24 hr tablet Take 1 tablet by mouth once daily. tamsulosin (FLOMAX) 0.4 mg Take 2 capsules by mouth once daily. Blood-Glucose Sensor (Planspot G7 SENSOR) jackson Apply new sensor every ten (10) days. ciclopirox (LOPROX) 0.77 % cream Apply to affected area two times a day. For 2 to 4 weeks till rash resolves. May treat recurrences for rash under abdominal pannus acyclovir (ZOVIRAX) 400 mg tablet Take 1 tablet by mouth two times a day. blood sugar diagnostic (BLOOD GLUCOSE TEST) test strip Test blood sugar(s) 3 to 4 times daily. Dx: Other DM Code E11.51 Insulin: Yes One touch or Accucheck strips or strips covered by her insurance. Lancets Test blood sugar(s) 3 to 4 times daily. Dx: Other DM Code E11.51 Insulin: Yes clobetasol (TEMOVATE) 0.05 % ointment Apply nightly to affected area for 8-12 weeks, then 1-3x weekly for maintenance apixaban (ELIQUIS) 5 mg tab(s) Take 1 tablet by mouth two times a day. hydrALAZINE (APRESOLINE) 50 mg tablet Take 1 tablet by mouth two times a day. Hold for SBP less than 120mm HG pantoprazole DR (PROTONIX) 40 mg tablet Take 1 tablet by mouth once daily. carvedilol (COREG) 6.25 mg tablet Take 1 tablet by mouth two times a day with meals. nystatin (MYCOSTATIN) powder Apply 1 application to affected area twice daily as needed. For prevention B complex w-C no.20/folic acid (B COMPLEX WITH C 20-FOLIC ACID ORAL) Take 1 tablet by mouth once daily. Magnesium Oxide 500 mg tab Take 1 tablet by mouth once daily. For constipation Blood-Glucose Meter,Continuous (DEXCOM G7 ENVELOPE SEALER) [facility] Use to check blood sugar at least four (4) times daily. nitroglycerin sublingual (NITROQUICK) 0.4 mg SL tablet Dissolve 1 tablet under the tongue as needed. As directed insulin needles, DISPOSABLE, (PEN NEEDLE) 31 gauge x 5/16 Use one needle per dose. 5 per day. bacitracin zinc 500 unit/gram ointment Apply to affected area twice daily. As directed for affected area till healed cetirizine (ZYRTEC) 10 mg tablet Take 1 tablet by mouth once daily as needed. aspirin, enteric coated (ASPIRIN, ENTERIC COATED) 81 mg EC tablet Take 1 tablet by mouth once daily. cyanocobalamin, vitamin B-12, 5,000 mcg subl Dissolve under the tongue once daily. ascorbic acid, vitamin C, (VITAMIN C) 500 mg tablet Take 1,000 mg by mouth once daily. biotin 5,000 mcg ODT Take 1 tablet by mouth once daily. polyethylene glycol 3350 (MIRALAX) 17 gram/dose powder Take 17 g by mouth as directed. g (more content not included)... Normal [facility] CNCOon 09-30-2024 CNCO Letter Text Normal [facility] CNOVon 09-29-2024 CNOV Office Visit (AGVASACC) MIRIAM THOMAS ([id number]) 1955 F Date Time Provider Department 09/29/24 1:30 PM ODIN DOBBINS During your visit today, we recorded the following information about you: Pulse Blood pressure Weight Height 70/minute 122/62 82.2 kg 1.575 m Odin Dobbins MD 09/29/2024 5:00 PM Signed [facility] [place] DEPARTMENT OF VASCULAR SURGERY OUTPATIENT VISIT DATE September 29, 2024 OUTPATIENT VISIT TYPE CONSULTATION PRIMARY CARE PHYSICIAN: Earl Shepherd MD REFERRING PROVIDER: Leti Roger [address] [facility] [address] [facility] [address] Consult requested for an opinion regarding the evaluation and treatment of the above. My final impression and recommendations will be communicated back to the requesting physician by way of the shared medical record or letter via US mail. CHIEF COMPLAINT: Right digit dry gangrene HISTORY OF PRESENT ILLNESS: The patient is a 69-year-old female presenting with a non-healing wound and vascular insufficiency in the right lower extremity. The wound began as a red deedee on the toe months ago and has since been treated with antibiotic creams and bandages without significant improvement. Most recent PVRs showing a TBI on the right of 0.15 with severely diminished waveforms. Previously underwent left leg angiogram with intervention SFA stenting with Dr. 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 History of Type 2 Diabetes and previous strokes with residual weakness predominantly affecting her left side. Additionally, there is chronic kidney disease limiting the use of contrast in vascular imaging studies. Vascular health status: Antiplatelet / Anticoagulation: Coumadin Statin or PCSK9i: atorvastatin Past Vascular Surgeries: Recent Surgeries this specialty 07/20/2020 (4yr) AMPUTATION BELOW KNEE EXTREMITY LOWER (Left) Stacy Salomon MD; Livier Garza MD; Jeanmarie Senior DO - Posted 11/04/2019 (4yr) EVACUATION CLOT ARTERIAL WITH INCISION LOWER EXTREMITY; EMBOLECTOMY AORTOILIAC ARTERY VIA LEG INCISION; REVASC ENDOVASC PERCUT FEM/POP ART W/TRANS STENT PLAC?T W/ANGIO/W/IN THE SAME VESSEL WHEN PERFORM; TRANSCATHETER THERAPY ARTERIAL INFUSION FOR THROMBOLYSIS OTHER THAN CORONARY W/ RADIOLOGICAL SUPERVISION/INTERPRE TATION INITIAL TREATMENT DAY; ANGIOGRAM EXTREMITY BILATERAL RADIOLOGICAL; AORTOGRAM ABDOMINAL (Left; Left; Left; Left; Left; Left) Mart Zavaleta MD - Posted MEDICATIONS: dulaglutide (TRULICITY) 4.5 mg/0.5 mL pen injector Inject 4.5 mg subcutaneously one time a week. Gets through [facility]. insulin glargine 100 unit/mL (3 mL) Inject 26 Units subcutaneously every morning. (Basaglar) Patient assistance medication. insulin lispro (HUMALOG KWIKPEN) 100 unit/mL Inject 8 units with breakfast and 4 units with evening meal as directed. Patient assistance medication. escitalopram oxalate (LEXAPRO) 20 mg tablet Take 1 tablet by mouth once daily. atorvastatin (LIPITOR) 40 mg tablet Take 1 tablet by mouth daily at bedtime. For cholesterol. buPROPion XL (WELLBUTRIN XL) 150 mg 24 hr tablet Take 1 tablet by mouth once daily. tamsulosin (FLOMAX) 0.4 mg Take 2 capsules by mouth once daily. gabapentin (NEURONTIN) 400 mg capsule Take 1 capsule by mouth two times a day AND 2 capsules daily at bedtime. Do all this for 90 days. (Patient taking differently: Take 1 capsule by mouth in the afternoon AND 2 capsules daily at bedtime. Do all this for 90 days.) Blood-Glucose Sensor (Planspot G7 SENSOR) jackson Apply new sensor every ten (10) days. ciclopirox (LOPROX) 0.77 % cream Apply to affected area two times a day. For 2 to 4 weeks till rash resolves. May treat recurrences for rash under abdominal pannus acyclovir (ZOVIRAX) 400 mg tablet Take 1 tablet by mouth two times a day. blood sugar diagnostic (BLOOD GLUCOSE TEST) test strip Test blood sugar(s) 3 to 4 times daily. Dx: Other DM Code E11.51 Insulin: Yes One touch or Accucheck strips or strips covered by her insurance. Lancets Test blood sugar(s) 3 to 4 times daily. Dx: Other DM Code E11.51 Insulin: Yes clobetasol (TEMOVATE) 0.05 % ointment Apply nightly to affected area for 8-12 weeks, then 1-3x weekly for maintenance apixaban (ELIQUIS) 5 mg tab(s) Take 1 tablet by mouth two times a day. hydrALAZINE (APRESOLINE) 50 mg tablet Take 1 tablet by mouth two times a day. Hold for SBP less than 120mm HG pantoprazole DR (PROTONIX) 40 mg tablet Take 1 tablet by mouth once daily. carvedilol (COREG) 6.25 mg tablet Take 1 tablet by mouth two times a day with meals. nystatin (MYCOSTATIN) powder Apply 1 application to affected area twice daily as needed. For prevention B complex w-C no.20/folic acid (B COMPLEX WITH C 20-FOLIC ACID ORAL) Take 1 tablet by mouth once daily. Magnesium Oxide 500 mg tab Take 1 tablet by mouth o (more content not included)... Normal [facility] 09-25-2024 BGN Telephone (AGPOB1) MIRIAM THOMAS ([id number]) 1955 F Date Time Provider Department 09/25/24 LETI ROGER During your visit today, we recorded the following information about you: Leti Roger DPM 09/25/2024 10:13 AM Signed Phoned pt to review results of xray as well as PVRs. Radiologist read xray as concerning for bone infection of the distal phalanx. Pt with superficial wound without dactylitis. No systemic signs of infection. PVRs concerning for significant PAD. Needs vascular evaluation. Discussed options for the above. DIscussed that inpt work up would be the most efficient for these issues. Pt wants to avoid being admitted at this point. Understands that this could delay care. MRI ordered for right foot to eval for OM. Consult placed with vascular for further eval INGE Enriquez Plug Wirer Karuna Mims 09/25/2024 10:47 AM Signed Vascular can see Saturday 09/29 at 130pm and mri 10/09/24 at 930am Patient notified Karuna Johnson Plug Wirer Ppg Allergies As of Date: 09/25/2024 Noted Allergy Reaction MELOXICAM 06/22/2016 8 - GI Upset SULFA (SULFONAMIDE ANTIBIOTICS) 10/15/2014 7 - Swelling Comments: Facial swelling, shortness of breath. Date Reviewed: 09/17/2024 Reviewed by: Roosevelt Montoya MA - Fully Assessed Reason for Visit: Results [95] Primary Visit Diagnosis:PAD (peripheral artery disease) ([facility]) [I73.9] Other Visit Diagnoses:Diabetic ulcer of toe of right foot associated with type 2 diabetes mellitus, limited to breakdown of skin ([facility]) [E11.621, L97.511] Type 2 diabetes mellitus with diabetic neuropathy, with long-term current use of insulin ([facility]) [E11.40, Z79.4] Other acute osteomyelitis of right foot ([facility]) [M86.171] Order(s):CONSULT TO VASCULAR SURGERY [9042] Order #: [id number]: 1 FUTURE MRI FOOT/TOES WO IVCON RIGHT [4986488] Order #: [id number] FUTURE Prescriptions as of 09/25/2024 - amoxicillin-clavulan ate potassium (AUGMENTIN) 500-125 mg per tablet Take 1 tablet by mouth every 12 hours for 10 days. - dulaglutide (TRULICITY) 4.5 mg/0.5 mL pen injector Inject 4.5 mg subcutaneously one time a week. Gets through [facility]. - insulin glargine 100 unit/mL (3 mL) Inject 26 Units subcutaneously every morning. (Basaglar) Patient assistance medication. - insulin lispro (HUMALOG KWIKPEN) 100 unit/mL Inject 8 units with breakfast and 4 units with evening meal as directed. Patient assistance medication. - escitalopram oxalate (LEXAPRO) 20 mg tablet Take 1 tablet by mouth once daily. - atorvastatin (LIPITOR) 40 mg tablet Take 1 tablet by mouth daily at bedtime. For cholesterol. - buPROPion XL (WELLBUTRIN XL) 150 mg 24 hr tablet Take 1 tablet by mouth once daily. - tamsulosin (FLOMAX) 0.4 mg Take 2 capsules by mouth once daily. - gabapentin (NEURONTIN) 400 mg capsule Take 1 capsule by mouth two times a day AND 2 capsules daily at bedtime. Do all this for 90 days. - Blood-Glucose Sensor (Planspot G7 SENSOR) jackson Apply new sensor every ten (10) days. - ciclopirox (LOPROX) 0.77 % cream Apply to affected area two times a day. For 2 to 4 weeks till rash resolves. May treat recurrences for rash under abdominal pannus - acyclovir (ZOVIRAX) 400 mg tablet Take 1 tablet by mouth two times a day. - blood sugar diagnostic (BLOOD GLUCOSE TEST) test strip Test blood sugar(s) 3 to 4 times daily. Dx: Other DM Code E11.51 Insulin: Yes One touch or Accucheck strips or strips covered by her insurance. - Lancets Test blood sugar(s) 3 to 4 times daily. Dx: Other DM Code E11.51 Insulin: Yes - clobetasol (TEMOVATE) 0.05 % ointment Apply nightly to affected area for 8-12 weeks, then 1-3x weekly for maintenance - apixaban (ELIQUIS) 5 mg tab(s) Take 1 tablet by mouth two times a day. - hydrALAZINE (APRESOLINE) 50 mg tablet Take 1 tablet by mouth two times a day. Hold for SBP less than 120mm HG - pantoprazole DR (PROTONIX) 40 mg tablet Take 1 tablet by mouth once daily. - carvedilol (COREG) 6.25 mg tablet Take 1 tablet by mouth two times a day with meals. - nystatin (MYCOSTATIN) powder Apply 1 application to affected area twice daily as needed. For prevention - B complex w-C no.20/folic acid (B COMPLEX WITH C 20-FOLIC ACID ORAL) Take 1 tablet by mouth once daily. - berberine/herbal complex no.18 (BERBERINE-HERBAL COMB NO.18 ORAL) Take 1,200 mg by mouth once daily. - Magnesium Oxide 500 mg tab Take 1 tablet by mouth once daily. For constipation - Blood-Glucose Meter,Continuous (DEXCOM G7 ENVELOPE SEALER) misc Use to check blood sugar at least four (4) times daily. - nitroglycerin sublingual (NITROQUICK) 0.4 mg SL tablet Dissolve 1 tablet under the tongue as needed. As directed - insulin needles, DISPOSABLE, (PEN NEEDLE) 31 gauge x 5/16 Use one needle per dose. 5 per day. - bacitracin zinc 500 unit/gram ointment Apply to affected area twice daily. A (more content not included)... Normal [facility] US ARTERIAL PVR LOWERon 12-2 US ARTERIAL PVR LOWER * * *Final Report* * * DATE OF EXAM: Sep 22 2024 2:46PM MDU 1107 - US ARTERIAL PVR LOWER / PROCEDURE REASON: multiple diagnoses * * * * Physician Interpretation * * * * BILATERAL LOWER EXTREMITY ARTERIAL PVR INDICATION:Diabetic ulcer of toe of right foot associated with type 2 diabetes mellitus, limited to breakdown of skin TECHNIQUE: Bilateral lower extremity arterial PVR. Pulse volume recording was performed at the level of the second digit of both hands with and without radial artery compression. RESULT: Right side: Ankle (DP) index:Noncompressibl e. Ankle (PT) index:Noncompressibl e Digit index: 0.15, markedly abnormally diminished Left side: Status post left below the knee amputation DOPPLER ARTERIAL FLOW SIGNALS: Right-sided Doppler tracings are markedly abnormally widened in the posterior tibial and dorsalis pedis arteries and moderately abnormally dampened and widened in the femoral and popliteal arteries. Doppler tracings were obtained on the left for the femoral and popliteal arteries. Left femoral artery Doppler tracing is mildly abnormally widened but otherwise appears normal. The left popliteal artery Doppler tracing is moderately abnormally widened and dampened. PULSE VOLUME RECORDINGS (PVR): Right post volume recordings shows slowed rise times and some abnormal dampening at all levels. The right digit pulse volume recording is markedly abnormally flattened. The left low thigh pulse volume recording is mildly abnormally dampened. IMPRESSION: MODERATE TO MARKED DIFFUSE DISEASE ON THE RIGHT INCREASING DISTALLY. Comparison with 12/13/2020 pulse volume recording shows marked worsening of right digit pressure index at 0.15 now, versus 0.65 previously. Comparison of right pulse volume recordings shows marked dampening and slowing of rise times at all levels compared with previously Chemical Process Operator: SARA Transcribe Date/Time: Sep 22 2024 3:03P Dictated by : JACI JACKSON MD This examination was interpreted and the report reviewed and electronically signed by: JACI JACKSON MD on Sep 22 2024 3:24PM EST [id number] [facility] Lower extremity arteryon 09-22-2024 IMPRESSION: MODERATE TO MARKED DIFFUSE DISEASE ON THE RIGHT INCREASING DISTALLY. Comparison with 12/13/2020 pulse volume recording shows marked worsening of right digit pressure index at 0.15 now, versus 0.65 previously. Comparison of right pulse volume recordings shows marked dampening and slowing of rise times at all levels compared with previously Chemical Process Operator: SARA Transcribe Date/Time: Sep 22 2024 3:03P Dictated by : JACI JACKSON MD This examination was interpreted and the report reviewed and electronically signed by: JACI JACKSON MD on Sep 22 2024 3:24PM [facility] * * *Final Report* * * DATE OF EXAM: Sep 22 2024 2:46PM JOSTIN 1107 - ARTERIAL PVR LOWER / PROCEDURE REASON: multiple diagnoses * * * * Physician Interpretation * * * * BILATERAL LOWER EXTREMITY ARTERIAL PVR INDICATION:Diabetic ulcer of toe of right foot associated with type 2 diabetes mellitus, limited to breakdown of skin TECHNIQUE: Bilateral lower extremity arterial PVR. Pulse volume recording was performed at the level of the second digit of both hands with and without radial artery compression. RESULT: Right side: Ankle (DP) index:Noncompressibl e. Ankle (PT) index:Noncompressibl e Digit index: 0.15, markedly abnormally diminished Left side: Status post left below the knee amputation DOPPLER ARTERIAL FLOW SIGNALS: Right-sided Doppler tracings are markedly abnormally widened in the posterior tibial and dorsalis pedis arteries and moderately abnormally dampened and widened in the femoral and popliteal arteries. Doppler tracings were obtained on the left for the femoral and popliteal arteries. Left femoral artery Doppler tracing is mildly abnormally widened but otherwise appears normal. The left popliteal artery Doppler tracing is moderately abnormally widened and dampened. PULSE VOLUME RECORDINGS (PVR): Right post volume recordings shows slowed rise times and some abnormal dampening at all levels. The right digit pulse volume recording is markedly abnormally flattened. The left low thigh pulse volume recording is mildly abnormally dampened. [facility] Provider, [facility] [place] - 09/22/2024 * * *Final Report* * * DATE OF EXAM: Sep 22 2024 2:46PM MDU 1107 - US ARTERIAL PVR LOWER / PROCEDURE REASON: multiple diagnoses * * * * Physician Interpretation * * * * BILATERAL LOWER EXTREMITY ARTERIAL PVR INDICATION:Diabetic ulcer of toe of right foot associated with type 2 diabetes mellitus, limited to breakdown of skin TECHNIQUE: Bilateral lower extremity arterial PVR. Pulse volume recording was performed at the level of the second digit of both hands with and without radial artery compression. RESULT: Right side: Ankle (DP) index:Noncompressibl e. Ankle (PT) index:Noncompressibl e Digit index: 0.15, markedly abnormally diminished Left side: Status post left below the knee amputation DOPPLER ARTERIAL FLOW SIGNALS: Right-sided Doppler tracings are markedly abnormally widened in the posterior tibial and dorsalis pedis arteries and moderately abnormally dampened and widened in the femoral and popliteal arteries. Doppler tracings were obtained on the left for the femoral and popliteal arteries. Left femoral artery Doppler tracing is mildly abnormally widened but otherwise appears normal. The left popliteal artery Doppler tracing is moderately abnormally widened and dampened. PULSE VOLUME RECORDINGS (PVR): Right post volume recordings shows slowed rise times and some abnormal dampening at all levels. The right digit pulse volume recording is markedly abnormally flattened. The left low thigh pulse volume recording is mildly abnormally dampened. IMPRESSION IMPRESSION: MODERATE TO MARKED DIFFUSE DISEASE ON THE RIGHT INCREASING DISTALLY. Comparison with 12/13/2020 pulse volume recording shows marked worsening of right digit pressure index at 0.15 now, versus 0.65 previously. Comparison of right pulse volume recordings shows marked dampening and slowing of rise times at all levels compared with previously Chemical Process Operator: SARA Transcribe Date/Time: Sep 22 2024 3:03P Dictated by : JACI JACKSON MD This examination was interpreted and the report reviewed and electronically signed by: JACI JACKSON MD on Sep 22 2024 3:24PM [facility] Radiology Study observation (narrative) [facility] US Lower extremity arteryOrd ered By: [facility]cf Provider on 09-22-2024 [facility] XR Foot - right AP and Later al and obliqueOrdered By: Ccf Provider on 09-21-2024 Interpretation and review of laboratory results Abnormal [facility] Radiology Result ACTIONABLE Abnormal [facility] Comment on above: This report contains an incidental or actionable finding. This finding may be a new finding separate from the reason your provider ordered the imaging test or it may be an already known finding that needs additional or continued follow-up. Because of this incidental or actionable finding, you may need another test (imaging or a different type of test). Please contact your provider for the next steps. [facility] XR Foot - right AP and Later al and obliqueon 09-21-2024 IMPRESSION: Osteomyelitis 2nd toe distal phalanx tuft. Appropriate clinical follow-up recommended ACTIONABLE RESULT: FOLLOW-UP Acuity: Actionable Findings: Musculoskeletal/Rheu matologic System Routing Code: MSK_1 Recommendation: Unlisted Recommendation (see report) Time Frame: Additional evaluation as described in the impression COMMUNICATION: Results will be communicated with the ordering provider via [email or web address] staff message or phone message by [facility] within 2 business days of report finalization. --END OF FINDING-- Chemical Process Operator: SARA Transcribe Date/Time: Sep 21 2024 1:34A Dictated by : ALIA ERICKSON MD This examination was interpreted and the report reviewed and electronically signed by: ALIA ERICKSON MD on Sep 21 2024 1:39AM [facility] [place] * * *Final Report* * * DATE OF EXAM: Sep 17 2024 10:36AM ATX [id number] - XR FOOT 3V AP/LAT/OBL RT / PROCEDURE REASON: multiple diagnoses * * * * Physician Interpretation * * * * TECHNIQUE: XR FOOT 3V AP/LAT/OBL RT EXAM DATE: 09/17/2024 10:36 AM COMPARISON STUDIES: 03/24/2021 CLINICAL HISTORY: 2nd toe wound RESULT: Osseous erosion involving the distal tuft of the 2nd toe distal phalanx with adjacent soft tissue defect, concerning for osteomyelitis. Mild 1st MTP joint degenerative change. Chronic periosteal thickening 4th metatarsal. No acute fracture or dislocation. Lateral deviation of the 1st toe distal phalanx at the IP joint. Arterial calcifications. Large Achilles enthesophyte and plantar heel spur. [facility] [place] Provider, [facility] [place] - 09/21/2024 * * *Final Report* * * DATE OF EXAM: Sep 17 2024 10:36AM KERI [id number] - XR FOOT 3V AP/LAT/OBL RT / PROCEDURE REASON: multiple diagnoses * * * * Physician Interpretation * * * * TECHNIQUE: XR FOOT 3V AP/LAT/OBL RT EXAM DATE: 09/17/2024 10:36 AM COMPARISON STUDIES: 03/24/2021 CLINICAL HISTORY: 2nd toe wound RESULT: Osseous erosion involving the distal tuft of the 2nd toe distal phalanx with adjacent soft tissue defect, concerning for osteomyelitis. Mild 1st MTP joint degenerative change. Chronic periosteal thickening 4th metatarsal. No acute fracture or dislocation. Lateral deviation of the 1st toe distal phalanx at the IP joint. Arterial calcifications. Large Achilles enthesophyte and plantar heel spur. IMPRESSION IMPRESSION: Osteomyelitis 2nd toe distal phalanx tuft. Appropriate clinical follow-up recommended ACTIONABLE RESULT: FOLLOW-UP Acuity: Actionable Findings: Musculoskeletal/Rheu matologic System Routing Code: MSK_1 Recommendation: Unlisted Recommendation (see report) Time Frame: Additional evaluation as described in the impression COMMUNICATION: Results will be communicated with the ordering provider via [email or web address] staff message or phone message by [facility] within 2 business days of report finalization. --END OF FINDING-- Chemical Process Operator: SARA Transcribe Date/Time: Sep 21 2024 1:34A Dictated by : ALIA ERICKSON MD This examination was interpreted and the report reviewed and electronically signed by: ALIA ERICKSON MD on Sep 21 2024 1:39AM [facility] CNOVon 09-17-2024 CNOV Office Visit (AGOTAL) MIRIAM THOMAS ([id number]) 1955 F Date Time Provider Department 09/17/24 9:30 AM DARSHANPARVIZLETI During your visit today, we recorded the following information about you: Respiration Weight Height 18/minute 90.7 kg 1.575 m Leti RogerULISESOsmani 09/21/2024 4:36 PM Signed Chief Complaint: Right 2nd digit wound/discoloration HPI: This 69 year old female with PMH indicated below presents complaining of changes to her right 2nd digit. . patient is accompanied to visit by her . She relates that a couple months ago she started developing a wound to the distal tip of her right second digit after trimming her toenail and noticing that the toenail was digging into her skin. She was treating it with an antibiotic ointment, and it seemed to be healing appropriately. However, over the past several days, she noticed increased redness,/dark purple discoloration to her second digit. She relates no pain with the digit and minimal drainage. She denies fevers, chills, nausea, vomiting or other acute signs of infection. She does admit to having a history of PAD, which led to a left below-knee amputation in the past on the left. No other pedal complaints. Last HgbA1c% is 5.7% PCP: Earl Shepherd MD: PAST MEDICAL HISTORY Diagnosis Date Anxiety Arthritis Depression MARITZA exposure in utero Diabetes mellitus ([facility]) 1986 Diabetic neuropathy ([facility]) Gangrene ([facility]) Heart attack ([facility]) [address] Adalberto Power [place] Herniated disc Hypertension Muscular deconditioning PVD (peripheral vascular disease) ([facility]) 10/2019 S/P BKA (below knee amputation) unilateral, left ([facility]) Sleep apnea cpap Snoring Stroke ([facility]) 11/2004 and 05/2005 x 2, right sided weakness : Current Outpatient Medications Medication Sig dulaglutide (TRULICITY) 4.5 mg/0.5 mL pen injector Inject 4.5 mg subcutaneously one time a week. Gets through [employer]. insulin glargine 100 unit/mL (3 mL) Inject 26 Units subcutaneously every morning. (Basaglar) Patient assistance medication. insulin lispro (HUMALOG KWIKPEN) 100 unit/mL Inject 8 units with breakfast and 4 units with evening meal as directed. Patient assistance medication. escitalopram oxalate (LEXAPRO) 20 mg tablet Take 1 tablet by mouth once daily. atorvastatin (LIPITOR) 40 mg tablet Take 1 tablet by mouth daily at bedtime. For cholesterol. buPROPion XL (WELLBUTRIN XL) 150 mg 24 hr tablet Take 1 tablet by mouth once daily. tamsulosin (FLOMAX) 0.4 mg Take 2 capsules by mouth once daily. Blood-Glucose Sensor (DEXCOM G7 SENSOR) jackson Apply new sensor every ten (10) days. ciclopirox (LOPROX) 0.77 % cream Apply to affected area two times a day. For 2 to 4 weeks till rash resolves. May treat recurrences for rash under abdominal pannus acyclovir (ZOVIRAX) 400 mg tablet Take 1 tablet by mouth two times a day. blood sugar diagnostic (BLOOD GLUCOSE TEST) test strip Test blood sugar(s) 3 to 4 times daily. Dx: Other DM Code E11.51 Insulin: Yes One touch or Accucheck strips or strips covered by her insurance. Lancets Test blood sugar(s) 3 to 4 times daily. Dx: Other DM Code E11.51 Insulin: Yes clobetasol (TEMOVATE) 0.05 % ointment Apply nightly to affected area for 8-12 weeks, then 1-3x weekly for maintenance apixaban (ELIQUIS) 5 mg tab(s) Take 1 tablet by mouth two times a day. hydrALAZINE (APRESOLINE) 50 mg tablet Take 1 tablet by mouth two times a day. Hold for SBP less than 120mm HG pantoprazole DR (PROTONIX) 40 mg tablet Take 1 tablet by mouth once daily. carvedilol (COREG) 6.25 mg tablet Take 1 tablet by mouth two times a day with meals. nystatin (MYCOSTATIN) powder Apply 1 application to affected area twice daily as needed. For prevention B complex w-C no.20/folic acid (B COMPLEX WITH C 20-FOLIC ACID ORAL) Take 1 tablet by mouth once daily. berberine/herbal complex no.18 (BERBERINE-HERBAL COMB NO.18 ORAL) Take 1,200 mg by mouth once daily. Magnesium Oxide 500 mg tab Take 1 tablet by mouth once daily. For constipation Blood-Glucose Meter,Continuous (DEXCOM G7 ENVELOPE SEALER) misc Use to check blood sugar at least four (4) times daily. nitroglycerin sublingual (NITROQUICK) 0.4 mg SL tablet Dissolve 1 tablet under the tongue as needed. As directed insulin needles, DISPOSABLE, (PEN NEEDLE) 31 gauge x 5/16 Use one needle per dose. 5 per day. bacitracin zinc 500 unit/gram ointment Apply to affected area twice daily. As directed for affected area till healed cetirizine (ZYRTEC) 10 mg tablet Take 1 tablet by mouth once daily as needed. aspirin, enteric coated (ASPIRIN, ENTERIC COATED) 81 mg EC tablet Take 1 tablet by mouth once daily. cyanocobalamin, vitamin B-12, 5,000 mcg subl Dissolve under the tongue once daily. ascorbic acid, vitamin C, (VITAMIN C) 500 mg tablet Take 1,000 mg by mouth once daily. biotin 5,000 mcg ODT (more content not included)... Normal [facility] XR FOOT 3V AP/LAT/OBL RTon 1 11-18-2023 XR FOOT 3V AP/LAT/OBL RT * * *Final Report* * * DATE OF EXAM: Sep 17 2024 10:36AM KERI [id number] - XR FOOT 3V AP/LAT/OBL RT / PROCEDURE REASON: multiple diagnoses * * * * Physician Interpretation * * * * TECHNIQUE: XR FOOT 3V AP/LAT/OBL RT EXAM DATE: 09/17/2024 10:36 AM COMPARISON STUDIES: 03/24/2021 CLINICAL HISTORY: 2nd toe wound RESULT: Osseous erosion involving the distal tuft of the 2nd toe distal phalanx with adjacent soft tissue defect, concerning for osteomyelitis. Mild 1st MTP joint degenerative change. Chronic periosteal thickening 4th metatarsal. No acute fracture or dislocation. Lateral deviation of the 1st toe distal phalanx at the IP joint. Arterial calcifications. Large Achilles enthesophyte and plantar heel spur. IMPRESSION: Osteomyelitis 2nd toe distal phalanx tuft. Appropriate clinical follow-up recommended ACTIONABLE RESULT: FOLLOW-UP Acuity: Actionable Findings: Musculoskeletal/Rheu matologic System Routing Code: MSK_1 Recommendation: Unlisted Recommendation (see report) Time Frame: Additional evaluation as described in the impression COMMUNICATION: Results will be communicated with the ordering provider via [email or web address] staff message or phone message by [facility] within 2 business days of report finalization. --END OF FINDING-- Chemical Process Operator: SARA Transcribe Date/Time: Sep 21 2024 1:34A Dictated by : ALIA ERICKOSN MD This examination was interpreted and the report reviewed and electronically signed by: ALIA ERICKSON MD on Sep 21 2024 1:39AM EST [id number] CN ACTIONABLE Invalid Interpretation Code [facility] XR Foot - right AP and Later al and obliqueon 09-17-2024 Radiology Study observation (narrative) Krystina holguni [facility] 09-16-2024 CNPN Telephone (AGPOB1) MIRIAM THOMAS ([id number]) 1955 F Date Time Provider Department 09/16/24 AG ORTH AGPOB1 During your visit today, we recorded the following information about you: Elizabeth Plug Wirer FelicitaKaruna 09/16/2024 9:32 AM Signed ----- Message from Brigitte Weems sent at 09/16/2024 9:18 AM EST ----- Regarding: Orthopedics / Foot: RFV Not Found / RFV Not Found In Schd Tool Contact: Orthopedics / Foot: RFV Not Found / RFV Not Found In Schd Tool Patient has been identified by name and Date of (Y/N): y Patient: Miriam Thomas Date of : 1955 Previous Provider Seen: Dr Roger Body Part(s) Identified: R 2nd toe Diagnosis/Reason For Visit: patient wants to see Dr Roger for R 2nd toe; thinks it may be dying as it is blackening Reason for the call/escalation: per sched tool If reason for call/escalation is discharge from ED/ER or Hospital, which facility was the patient seen at: n/a Was an appointment scheduled (Y/N): n Person calling if other than patient: n/a Return call to if other than patient: n/a Best contact number: [phone] Thank you, Brigitte Fairchild September 16, 2024 9:18 AM Elizabeth Plug Wirer FelicitaKaruna 09/16/2024 9:32 AM Signed Spoke with patient and appointment was made Karuna Johnson [place] [facility] Allergies As of Date: 09/16/2024 Noted Allergy Reaction MELOXICAM 06/22/2016 8 - GI Upset SULFA (SULFONAMIDE ANTIBIOTICS) 10/15/2014 7 - Swelling Comments: Facial swelling, shortness of breath. Date Reviewed: 06/13/2024 Reviewed by: Rhina Carrasco APRN.COMMUNICABLE DISEASE SPECIALIST - Fully Assessed Prescriptions as of 09/16/2024 - dulaglutide (TRULICITY) 4.5 mg/0.5 mL pen injector Inject 4.5 mg subcutaneously one time a week. Gets through [employer]. - insulin glargine 100 unit/mL (3 mL) Inject 26 Units subcutaneously every morning. (Basaglar) Patient assistance medication. - insulin lispro (HUMALOG KWIKPEN) 100 unit/mL Inject 8 units with breakfast and 4 units with evening meal as directed. Patient assistance medication. - escitalopram oxalate (LEXAPRO) 20 mg tablet Take 1 tablet by mouth once daily. - atorvastatin (LIPITOR) 40 mg tablet Take 1 tablet by mouth daily at bedtime. For cholesterol. - buPROPion XL (WELLBUTRIN XL) 150 mg 24 hr tablet Take 1 tablet by mouth once daily. - tamsulosin (FLOMAX) 0.4 mg Take 2 capsules by mouth once daily. - gabapentin (NEURONTIN) 400 mg capsule Take 1 capsule by mouth two times a day AND 2 capsules daily at bedtime. Do all this for 90 days. - Blood-Glucose Sensor ([employer] G7 SENSOR) jackson Apply new sensor every ten (10) days. - ciclopirox (LOPROX) 0.77 % cream Apply to affected area two times a day. For 2 to 4 weeks till rash resolves. May treat recurrences for rash under abdominal pannus - acyclovir (ZOVIRAX) 400 mg tablet Take 1 tablet by mouth two times a day. - blood sugar diagnostic (BLOOD GLUCOSE TEST) test strip Test blood sugar(s) 3 to 4 times daily. Dx: Other DM Code E11.51 Insulin: Yes One touch or Accucheck strips or strips covered by her insurance. - Lancets Test blood sugar(s) 3 to 4 times daily. Dx: Other DM Code E11.51 Insulin: Yes - clobetasol (TEMOVATE) 0.05 % ointment Apply nightly to affected area for 8-12 weeks, then 1-3x weekly for maintenance - apixaban (ELIQUIS) 5 mg tab(s) Take 1 tablet by mouth two times a day. - hydrALAZINE (APRESOLINE) 50 mg tablet Take 1 tablet by mouth two times a day. Hold for SBP less than 120mm HG - pantoprazole DR (PROTONIX) 40 mg tablet Take 1 tablet by mouth once daily. - carvedilol (COREG) 6.25 mg tablet Take 1 tablet by mouth two times a day with meals. - nystatin (MYCOSTATIN) powder Apply 1 application to affected area twice daily as needed. For prevention - B complex w-C no.20/folic acid (B COMPLEX WITH C 20-FOLIC ACID ORAL) Take 1 tablet by mouth once daily. - berberine/herbal complex no.18 (BERBERINE-HERBAL COMB NO.18 ORAL) Take 1,200 mg by mouth once daily. - Magnesium Oxide 500 mg tab Take 1 tablet by mouth once daily. For constipation - Blood-Glucose Meter,Continuous (DEXCOM G7 ENVELOPE SEALER) [facility] Use to check blood sugar at least four (4) times daily. - nitroglycerin sublingual (NITROQUICK) 0.4 mg SL tablet Dissolve 1 tablet under the tongue as needed. As directed - insulin needles, DISPOSABLE, (PEN NEEDLE) 31 gauge x 5/16 Use one needle per dose. 5 per day. - bacitracin zinc 500 unit/gram ointment Apply to affected area twice daily. As directed for affected area till healed - cetirizine (ZYRTEC) 10 mg tablet Take 1 tablet by mouth once daily as needed. - aspirin, enteric coated (ASPIRIN, ENTERIC COATED) 81 mg EC tablet Take 1 tablet by mouth once daily. - cyanocobalamin, vitamin B-12, 5,000 mcg subl Dissolve under the tongue once daily. - ascorbic acid, vitamin C, (VITAMIN C) 500 mg tablet Take 1,000 mg (more content not included)... Normal [facility] SCREENINGon 09-05-2024 [facility] SCREENING * * *Final Report* * * DATE OF EXAM: Sep 05 2024 12:57PM [facility] 0581 - [facility] SCREENING / PROCEDURE REASON: Encounter for screening mammogram for breast cancer * * * * Physician Interpretation * * * * RESULT: [facility] [address] [id number] #[id number] - [facility] SCREENING HISTORY: Patient is 69 years old and is seen for screening,is asymptomatic in the left breast and a palpable abnormality in the right breast. Patient states no personal history of breast cancer. Patient states no personal history of other cancers. COMPARISON STUDIES: The present examination has been compared to prior imaging studies dated 09/17/2018 (mammogram), 09/18/2019 (mammogram), 10/13/2020 (mammogram) and 08/07/2022 (mammogram). MAMMOGRAM TECHNIQUE: The study was acquired using full field digital technology and interpreted from soft copy. Computer-aided detection was utilized by the radiologist in the interpretation of this examination. MAMMOGRAM FINDINGS: There are scattered areas of fibroglandular density. No suspicious masses, calcifications or other abnormalities are seen in either breast. There are no significant changes from the prior study. IMPRESSION: There is no mammographic evidence of malignancy. Routine screening mammogram is recommended. Annual mammogram will be due in 1 year. BI-RADS Category 1: Negative RISK: Based on the Tyrer-Cuzick (TC) risk assessment model, this patient has a 3.0% lifetime risk of developing breast cancer, meaning they are at average risk for developing breast cancer. However, this is only an estimate based on available history provided on the patient's questionnaire. We encourage all patients to talk with their providers about these results, further recommendations for managing breast health, and appropriate supplemental screening options if the patient has dense breast tissue. Interpreting Radiologist: Sandi Calles M.D. Electronically signed on: 09/08/2024 Chemical Process Operator: MAGDA Transcribe Date/Time: Sep 05 2024 12:32P Dictated by: SANDI CALLES MD This examination was interpreted and the report reviewed and electronically signed by: SANDI CALLES MD on Sep 08 2024 12:47PM EST [id number] CN Normal [facility] 07-30-2024 CNPN Telephone ([facility]) MIRIAM THOMAS ([id number]) 1955 F Date Time Provider Department 07/30/24 ADELAIDE ANN During your visit today, we recorded the following information about you: Adelaide Ann [facility] 07/30/2024 9:12 AM Signed Patient was scheduled with PharmD for a virtual visit on 07/23 but had to cancel. Sent Talkablehart message earlier though has not yet reviewed. Primary Care Pharmacy Rescheduling Outreach Call center, please contact patient and reschedule telephone and virtual visit for Diabetes management within ~3 week(s). (Visit length: 30 minutes) Thank you, Adelaide Ann [facility] 07/30/2024 9:11 AM Long [place] 07/30/2024 9:28 AM Signed 1st attempt to reschedule. Called and lmom. Long [facility] 07/31/2024 9:24 AM Signed 2nd attempt to reschedule. Called and lmom. Sent Talkablehart message. Disha Martines [facility] 07/31/2024 10:20 AM Signed Pt. tammy'd call and was scheduled for 08/11/24. Allergies As of Date: 07/30/2024 Noted Allergy Reaction MELOXICAM 06/22/2016 8 - GI Upset SULFA (SULFONAMIDE ANTIBIOTICS) 10/15/2014 7 - Swelling Comments: Facial swelling, shortness of breath. Date Reviewed: 06/13/2024 Reviewed by: Rhina Carrasco APRN.COMMUNICABLE DISEASE SPECIALIST - Fully Assessed Reason for Visit: Appointment [186] Cmt: Primary care reschedule Prescriptions as of 07/31/2024 - escitalopram oxalate (LEXAPRO) 20 mg tablet Take 1 tablet by mouth once daily. - atorvastatin (LIPITOR) 40 mg tablet Take 1 tablet by mouth daily at bedtime. For cholesterol. - buPROPion XL (WELLBUTRIN XL) 150 mg 24 hr tablet Take 1 tablet by mouth once daily. - tamsulosin (FLOMAX) 0.4 mg Take 2 capsules by mouth once daily. - dulaglutide (TRULICITY) 4.5 mg/0.5 mL pen injector Inject 4.5 mg subcutaneously one time a week. Gets through [facility]. - insulin glargine 100 unit/mL (3 mL) Inject 26 Units subcutaneously every morning. - atorvastatin (LIPITOR) 20 mg tablet Take 2 tablets by mouth once daily. - insulin lispro (HUMALOG KWIKPEN) 100 unit/mL Inject 10 units with breakfast and 4 units with evening meal as directed. Patient assistance medication. - gabapentin (NEURONTIN) 400 mg capsule Take 1 capsule by mouth two times a day AND 2 capsules daily at bedtime. Do all this for 90 days. - Blood-Glucose Sensor (Planspot G7 SENSOR) jcakson Apply new sensor every ten (10) days. - ciclopirox (LOPROX) 0.77 % cream Apply to affected area two times a day. For 2 to 4 weeks till rash resolves. May treat recurrences for rash under abdominal pannus - acyclovir (ZOVIRAX) 400 mg tablet Take 1 tablet by mouth two times a day. - blood sugar diagnostic (BLOOD GLUCOSE TEST) test strip Test blood sugar(s) 3 to 4 times daily. Dx: Other DM Code E11.51 Insulin: Yes One touch or Accucheck strips or strips covered by her insurance. - Lancets Test blood sugar(s) 3 to 4 times daily. Dx: Other DM Code E11.51 Insulin: Yes - clobetasol (TEMOVATE) 0.05 % ointment Apply nightly to affected area for 8-12 weeks, then 1-3x weekly for maintenance - apixaban (ELIQUIS) 5 mg tab(s) Take 1 tablet by mouth two times a day. - ferrous sulfate 325 mg (65 mg iron) tablet Take 1 tablet by mouth every Sunday, Sunday, and Sunday. - furosemide (LASIX) 40 mg tablet Take 1 tablet by mouth once daily. - hydrALAZINE (APRESOLINE) 50 mg tablet Take 1 tablet by mouth two times a day. Hold for SBP less than 120mm HG - pantoprazole DR (PROTONIX) 40 mg tablet Take 1 tablet by mouth once daily. - carvedilol (COREG) 6.25 mg tablet Take 1 tablet by mouth two times a day with meals. - nystatin (MYCOSTATIN) powder Apply 1 application to affected area twice daily as needed. For prevention - B complex w-C no.20/folic acid (B COMPLEX WITH C 20-FOLIC ACID ORAL) Take 1 tablet by mouth once daily. - berberine/herbal complex no.18 (BERBERINE-HERBAL COMB NO.18 ORAL) Take 1,200 mg by mouth once daily. - Magnesium Oxide 500 mg tab Take 1 tablet by mouth once daily. For constipation - Blood-Glucose Meter,Continuous (DEXCOM G7 ENVELOPE SEALER) [facility] Use to check blood sugar at least four (4) times daily. - nitroglycerin sublingual (NITROQUICK) 0.4 mg SL tablet Dissolve 1 tablet under the tongue as needed. As directed - insulin needles, DISPOSABLE, (PEN NEEDLE) 31 gauge x 5/16 Use one needle per dose. 5 per day. - bacitracin zinc 500 unit/gram ointment Apply to affected area twice daily. As directed for affected area till healed - cetirizine (ZYRTEC) 10 mg tablet Take 1 tablet by mouth once daily as needed. - aspirin, enteric coated (ASPIRIN, ENTERIC COATED) 81 mg EC tablet Take 1 tablet by mouth once daily. - Zinc 50 mg tab Take by mouth once daily. - cyanocobalamin, vitamin B-12, 5,000 mcg subl Dissolve under the tongue once daily. - ascorbic acid, vitamin C, (VITAMIN C) 500 mg tablet Take 1,000 mg by mouth once daily. - biotin 5,000 mcg OD (more content not included)... Normal [facility] Microalb:Creat Ratio,Random URon 07-28-2024 Creatinine [Mass/Vol] 100.00 mg/dL Normal NO RANGE EST . [facility] Comment on above: Performed By: #### L 502.0250 #### [facility] [address] [place], [address] MALB:CRE 185.0 mg/g CRE High <30 mg/g CRE [facility] Comment on above: Performed By: #### L 502.0250 #### [facility] [address] [place], [place], [id number] MICROALBUMIN,UR 185.0 mg/L Normal NO RANGE EST. [facility] Comment on above: Performed By: #### L 502.0250 #### [facility] [address] [place], [address] CNPNon 07-21-2024 CNPN Telephone (INT[facility]) MIRIAM THOMAS ([id number]) 1955 F Date Time Provider Department 07/21/24 EARL SHEPHERD INTMWS During your visit today, we recorded the following information about you: Haley Huang RN 07/21/2024 4:41 PM Signed Patient calling in with an update. States she was ordered and began Wellbutrin and Lexapro on 06/13/24 for depressed mood. Reports she has no improvement. Reports she has been in bed for 3 days. Little appetite. No N/V/D or other sx's. Has only had about 20 ounces of fluid all day (4:40pm in afternoon now).; 8 oz coffee and 12 oz jose water. Reports her blood sugars have been a little low and she plans to increase her healthy snacks. No SI/HI. She states she was told to call in if no improvement. Please advise patient. Thank you. Rhina Carrasco APRN.COMMUNICABLE DISEASE SPECIALIST 07/22/2024 7:23 AM Signed Please return call and let her know there is room to increase both Lexapro and Wellbutrin, I would recommend we start by increasing her Lexapro to 20 mg daily, please see if she is agreeable. Haley Huang RN 07/22/2024 8:31 AM Signed Patient given provider's message below and agreeable to Lexapro increase. Uses [employer]. Please call patient with any further updates. Thank you. Allergies As of Date: 07/21/2024 Noted Allergy Reaction MELOXICAM 06/22/2016 8 - GI Upset SULFA (SULFONAMIDE ANTIBIOTICS) 10/15/2014 7 - Swelling Comments: Facial swelling, shortness of breath. 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 - atorvastatin (LIPITOR) 40 mg tablet Take 1 tablet by mouth daily at bedtime. For cholesterol. - buPROPion XL (WELLBUTRIN XL) 150 mg 24 hr tablet Take 1 tablet by mouth once daily. - tamsulosin (FLOMAX) 0.4 mg Take 2 capsules by mouth once daily. - dulaglutide (TRULICITY) 4.5 mg/0.5 mL pen injector Inject 4.5 mg subcutaneously one time a week. Gets through [facility]. - insulin glargine 100 unit/mL (3 mL) Inject 26 Units subcutaneously every morning. - atorvastatin (LIPITOR) 20 mg tablet Take 2 tablets by mouth once daily. - insulin lispro (HUMALOG KWIKPEN) 100 unit/mL Inject 10 units with breakfast and 4 units with evening meal as directed. Patient assistance medication. - gabapentin (NEURONTIN) 400 mg capsule Take 1 capsule by mouth two times a day AND 2 capsules daily at bedtime. Do all this for 90 days. - Blood-Glucose Sensor (Planspot G7 SENSOR) jackson Apply new sensor every ten (10) days. - ciclopirox (LOPROX) 0.77 % cream Apply to affected area two times a day. For 2 to 4 weeks till rash resolves. May treat recurrences for rash under abdominal pannus - acyclovir (ZOVIRAX) 400 mg tablet Take 1 tablet by mouth two times a day. - blood sugar diagnostic (BLOOD GLUCOSE TEST) test strip Test blood sugar(s) 3 to 4 times daily. Dx: Other DM Code E11.51 Insulin: Yes One touch or Accucheck strips or strips covered by her insurance. - Lancets Test blood sugar(s) 3 to 4 times daily. Dx: Other DM Code E11.51 Insulin: Yes - clobetasol (TEMOVATE) 0.05 % ointment Apply nightly to affected area for 8-12 weeks, then 1-3x weekly for maintenance - apixaban (ELIQUIS) 5 mg tab(s) Take 1 tablet by mouth two times a day. - ferrous sulfate 325 mg (65 mg iron) tablet Take 1 tablet by mouth every Sunday, Sunday, and Sunday. - furosemide (LASIX) 40 mg tablet Take 1 tablet by mouth once daily. - hydrALAZINE (APRESOLINE) 50 mg tablet Take 1 tablet by mouth two times a day. Hold for SBP less than 120mm HG - pantoprazole DR (PROTONIX) 40 mg tablet Take 1 tablet by mouth once daily. - carvedilol (COREG) 6.25 mg tablet Take 1 tablet by mouth two times a day with meals. - nystatin (MYCOSTATIN) powder Apply 1 application to affected area twice daily as needed. For prevention - B complex w-C no.20/folic acid (B COMPLEX WITH C 20-FOLIC ACID ORAL) Take 1 tablet by mouth once daily. - berberine/herbal complex no.18 (BERBERINE-HERBAL COMB NO.18 ORAL) Take 1,200 mg by mouth once daily. - Magnesium Oxide 500 mg tab Take 1 tablet by mouth once daily. For constipation - Blood-Glucose Meter,Continuous (DEXCOM G7 ENVELOPE SEALER) [facility] Use to check blood sugar at least four (4) times daily. - nitroglycerin sublingual (NITROQUICK) 0.4 mg SL tablet Dissolve 1 tablet under the tongue as needed. As directed - insulin needles, DISPOSABLE, (PEN NEEDLE) 31 gauge x 5/16 Use one needle per dose. 5 per day. - bacitracin zinc 500 unit/gram ointment Apply to affected area twice dale (more content not included)... Normal [facility] Janice 06-24-2024 [facility] Telephone ([facility]) MIRIAM THOMAS ([id number]) 1955 F Date Time Provider Department 06/24/24 RHINA CARRASCO During your visit today, we recorded the following information about you: Rhina Carrasco APRN.CNP 06/24/2024 12:42 PM Signed Rhina Carrasco APRN.CNP 06/27/2024 4:12 PM Signed Addended by: RHINA CARRASCO on: 06/27/2024 04:12 PM Modules accepted: Orders Allergies As of Date: 06/24/2024 Noted Allergy Reaction MELOXICAM 06/22/2016 8 - GI Upset SULFA (SULFONAMIDE ANTIBIOTICS) 10/15/2014 7 - Swelling Comments: Facial swelling, shortness of breath. Date Reviewed: 06/13/2024 Reviewed by: Rhina Carrasco APRN.CNP - Fully Assessed Reason for Visit: Results [95] Primary Visit Diagnosis:Encounter for therapeutic drug monitoring [Z51.81] Other Visit Diagnosis:Hyperparat hyroid (HCC) [E21.3] Order(s):BASIC METABOLIC PANEL [SQBMP] Order #: [id number] FUTURE CONSULT TO ENDOCRINOLOGY [9007] Order #: [id number]: 1 FUTURE Prescriptions as of 06/27/2024 - atorvastatin (LIPITOR) 40 mg tablet Take 1 tablet by mouth daily at bedtime. For cholesterol. - escitalopram oxalate (LEXAPRO) 10 mg tablet Take 1 tablet by mouth once daily. - buPROPion XL (WELLBUTRIN XL) 150 mg 24 hr tablet Take 1 tablet by mouth once daily. - tamsulosin (FLOMAX) 0.4 mg Take 2 capsules by mouth once daily. - dulaglutide (TRULICITY) 4.5 mg/0.5 mL pen injector Inject 4.5 mg subcutaneously one time a week. Gets through [facility]. - insulin glargine 100 unit/mL (3 mL) Inject 26 Units subcutaneously every morning. - atorvastatin (LIPITOR) 20 mg tablet Take 2 tablets by mouth once daily. - insulin lispro (HUMALOG KWIKPEN) 100 unit/mL Inject 10 units with breakfast and 4 units with evening meal as directed. Patient assistance medication. - gabapentin (NEURONTIN) 400 mg capsule Take 1 capsule by mouth two times a day AND 2 capsules daily at bedtime. Do all this for 90 days. - Blood-Glucose Sensor (DEXCOM G7 SENSOR) jackson Apply new sensor every ten (10) days. - ciclopirox (LOPROX) 0.77 % cream Apply to affected area two times a day. For 2 to 4 weeks till rash resolves. May treat recurrences for rash under abdominal pannus - acyclovir (ZOVIRAX) 400 mg tablet Take 1 tablet by mouth two times a day. - blood sugar diagnostic (BLOOD GLUCOSE TEST) test strip Test blood sugar(s) 3 to 4 times daily. Dx: Other DM Code E11.51 Insulin: Yes One touch or Accucheck strips or strips covered by her insurance. - Lancets Test blood sugar(s) 3 to 4 times daily. Dx: Other DM Code E11.51 Insulin: Yes - clobetasol (TEMOVATE) 0.05 % ointment Apply nightly to affected area for 8-12 weeks, then 1-3x weekly for maintenance - apixaban (ELIQUIS) 5 mg tab(s) Take 1 tablet by mouth two times a day. - ferrous sulfate 325 mg (65 mg iron) tablet Take 1 tablet by mouth every Sunday, Sunday, and Sunday. - furosemide (LASIX) 40 mg tablet Take 1 tablet by mouth once daily. - hydrALAZINE (APRESOLINE) 50 mg tablet Take 1 tablet by mouth two times a day. Hold for SBP less than 120mm HG - pantoprazole DR (PROTONIX) 40 mg tablet Take 1 tablet by mouth once daily. - carvedilol (COREG) 6.25 mg tablet Take 1 tablet by mouth two times a day with meals. - nystatin (MYCOSTATIN) powder Apply 1 application to affected area twice daily as needed. For prevention - B complex w-C no.20/folic acid (B COMPLEX WITH C 20-FOLIC ACID ORAL) Take 1 tablet by mouth once daily. - berberine/herbal complex no.18 (BERBERINE-HERBAL COMB NO.18 ORAL) Take 1,200 mg by mouth once daily. - Magnesium Oxide 500 mg tab Take 1 tablet by mouth once daily. For constipation - Blood-Glucose Meter,Continuous (DEXCOM G7 ENVELOPE SEALER) misc Use to check blood sugar at least four (4) times daily. - nitroglycerin sublingual (NITROQUICK) 0.4 mg SL tablet Dissolve 1 tablet under the tongue as needed. As directed - insulin needles, DISPOSABLE, (PEN NEEDLE) 31 gauge x 5/16 Use one needle per dose. 5 per day. - bacitracin zinc 500 unit/gram ointment Apply to affected area twice daily. As directed for affected area till healed - cetirizine (ZYRTEC) 10 mg tablet Take 1 tablet by mouth once daily as needed. - aspirin, enteric coated (ASPIRIN, ENTERIC COATED) 81 mg EC tablet Take 1 tablet by mouth once daily. - Zinc 50 mg tab Take by mouth once daily. - cyanocobalamin, vitamin B-12, 5,000 mcg subl Dissolve under the tongue once daily. - ascorbic acid, vitamin C, (VITAMIN C) 500 mg tablet Take 1,000 mg by mouth once daily. - biotin 5,000 mcg ODT Take 1 tablet by mouth once daily. - Cholecalciferol, Vitamin D3, 50 mcg (2,000 unit) cap Take 1 capsule by mouth once daily. - polyethylene glycol 3350 (MIRALAX) 17 gram/dose powder Take 17 g by mouth as directed. Meds Comments as of 12/16/2019: 12/16/19 The medications are managed by this patient by: PATIENT Zulay Weems (more content not included)... Normal [facility] 25(OH)D3 SerPl-[facility] 2023 25-hydroxyvitamin D3 [Mass/Vol] 51.0 ng/mL Normal 31.0-80.0 [facility] Comment on above: Order Comment: Speci men Type: BLOOD SPECIMENOrdering Facility: [facility] Address: [address] [place] [address] Performed By: #### 1 989-3 ####[facility] LABCLIA [id number] [place] [address] [place] CNOVon 06-13-2024 CNOV Office Visit (INTMWS) MIRIAM THOMAS ([id number]) 1955 F Date Time Provider Department 06/13/24 1:00 PM RHINA CARRASCO During your visit today, we recorded the following information about you: Pulse Respiration Blood pressure Weight 82/minute 16/minute 157/70 90.7 kg Rhina Carrasco APRN.COMMUNICABLE DISEASE SPECIALIST 06/13/2024 1:58 PM Signed SUBJECTIVE Miriam Thomas is a 69 year old female here today for a check up on her medical problems. Chief Complaint Patient presents with: F/U 6 Month HPI Miriam Thomas is a 69 year old female. She is an established patient of Earl Shepherd MD. Here today for a 6 month follow up. Seen with Earl Shepherd MD 12/11. History of depression, type 2 DM, CKD, HTN, GERD, BKA. Having some eye issues lately, retinal issues. Right eye clear, left eye blurred. Following with pharmD for help with DM management. Some urinary issues still, trouble with starting stream, feels like she is emptying incompletely. Has been on tamsulosin for a while. Fall and winter are hard for her mood huerta, would like to start back on depression medication. Working on building strength and stamina, wants to be more mobile. Her medications were reviewed today and her list is now up to date. Medications Current Outpatient Medications Medication Sig dulaglutide (TRULICITY) 4.5 mg/0.5 mL pen injector Inject 4.5 mg subcutaneously one time a week. Gets through [facility]. insulin glargine 100 unit/mL (3 mL) Inject 26 Units subcutaneously every morning. atorvastatin (LIPITOR) 20 mg tablet Take 2 tablets by mouth once daily. insulin lispro (HUMALOG KWIKPEN) 100 unit/mL Inject 10 units with breakfast and 4 units with evening meal as directed. Patient assistance medication. gabapentin (NEURONTIN) 400 mg capsule Take 1 capsule by mouth two times a day AND 2 capsules daily at bedtime. Do all this for 90 days. (Patient taking differently: Take 1 capsule by mouth in the afternoon AND 2 capsules daily at bedtime. Do all this for 90 days.) Blood-Glucose Sensor (DEXCOM G7 SENSOR) jackson Apply new sensor every ten (10) days. ciclopirox (LOPROX) 0.77 % cream Apply to affected area two times a day. For 2 to 4 weeks till rash resolves. May treat recurrences for rash under abdominal pannus acyclovir (ZOVIRAX) 400 mg tablet Take 1 tablet by mouth two times a day. blood sugar diagnostic (BLOOD GLUCOSE TEST) test strip Test blood sugar(s) 3 to 4 times daily. Dx: Other DM Code E11.51 Insulin: Yes One touch or Accucheck strips or strips covered by her insurance. Lancets Test blood sugar(s) 3 to 4 times daily. Dx: Other DM Code E11.51 Insulin: Yes clobetasol (TEMOVATE) 0.05 % ointment Apply nightly to affected area for 8-12 weeks, then 1-3x weekly for maintenance apixaban (ELIQUIS) 5 mg tab(s) Take 1 tablet by mouth two times a day. furosemide (LASIX) 40 mg tablet Take 1 tablet by mouth once daily. hydrALAZINE (APRESOLINE) 50 mg tablet Take 1 tablet by mouth two times a day. Hold for SBP less than 120mm HG pantoprazole DR (PROTONIX) 40 mg tablet Take 1 tablet by mouth once daily. carvedilol (COREG) 6.25 mg tablet Take 1 tablet by mouth two times a day with meals. nystatin (MYCOSTATIN) powder Apply 1 application to affected area twice daily as needed. For prevention B complex w-C no.20/folic acid (B COMPLEX WITH C 20-FOLIC ACID ORAL) Take 1 tablet by mouth once daily. berberine/herbal complex no.18 (BERBERINE-HERBAL COMB NO.18 ORAL) Take 1,200 mg by mouth once daily. Magnesium Oxide 500 mg tab Take 1 tablet by mouth once daily. For constipation Blood-Glucose Meter,Continuous (DEXCOM G7 ENVELOPE SEALER) misc Use to check blood sugar at least four (4) times daily. nitroglycerin sublingual (NITROQUICK) 0.4 mg SL tablet Dissolve 1 tablet under the tongue as needed. As directed insulin needles, DISPOSABLE, (PEN NEEDLE) 31 gauge x 5/16 Use one needle per dose. 5 per day. bacitracin zinc 500 unit/gram ointment Apply to affected area twice daily. As directed for affected area till healed cetirizine (ZYRTEC) 10 mg tablet Take 1 tablet by mouth once daily as needed. aspirin, enteric coated (ASPIRIN, ENTERIC COATED) 81 mg EC tablet Take 1 tablet by mouth once daily. Zinc 50 mg tab Take by mouth once daily. cyanocobalamin, vitamin B-12, 5,000 mcg subl Dissolve under the tongue once daily. ascorbic acid, vitamin C, (VITAMIN C) 500 mg tablet Take 1,000 mg by mouth once daily. biotin 5,000 mcg ODT Take 1 tablet by mouth once daily. Cholecalciferol, Vitamin D3, 50 mcg (2,000 unit) cap Take 1 capsule by mouth once daily. polyethylene glycol 3350 (MIRALAX) 17 gram/dose powder Take 17 g by mouth as directed. escitalopram oxalate (LEXAPRO) 10 mg tablet Take 1 tablet by mouth once daily. buPROPion XL (WELLBUTRIN XL) 150 mg 24 hr tablet Take 1 tablet by mouth once daily. tamsulosin (FLOMAX) 0.4 mg Take 2 capsules by (more content not included)... Normal [facility] Calcium.ionized [Moles/Vol]o n 06-13-2024 Calcium.ionized (Bld) [Mass/Vol] 1.45 mmol/L High 1.08-1.30 [facility] Comment on above: Order Comment: Speci men Type: BLOOD SPECIMENOrdering Facility: [facility] Address: [address] [place] [address] Performed By: #### 1 995-0 ####[facility] LABIA [id number] [place] [address] [place] Calcium.ionized adjusted to pH 7.4 (Bld) [Moles/Vol] 1.46 mmol/L High 1.08-1.30 [facility] Comment on above: Order Comment: Speci men Type: BLOOD SPECIMENOrdering Facility: [facility] Address: [address] [place] [address] Performed By: #### 1 995-0 ####[facility] LABCLIA [id number] [id number], [place] [address] [place] Comprehensive metabolic 2000 panelon 06-13-2024 Albumin [Mass/Vol] 4.4 g/dL Normal 3.9-4.[address] [facility] Comment on above: Order Comment: Speci men Type: BLOOD SPECIMENOrdering Facility: [facility] Address: [address] [place] [address] Performed By: #### 2 4323-8, 2885-2, 2730-8 ####[facility] LABCLIA [id number] [place] [address] [place] ALP [Catalytic activity/Vol] 100 U/L Normal 34-123 [facility] Comment on above: Order Comment: Speci men Type: BLOOD SPECIMENOrdering Facility: [facility] Address: [address] [place] [address] Performed By: #### 2 4323-8, 2885-2, 2730-8 ####[facility] LABCLIA [id number] [place] [address] [place] ALT [Catalytic activity/Vol] 21 U/L Normal 7-38 [facility] Comment on above: Order Comment: Speci men Type: BLOOD SPECIMENOrdering Facility: [facility] Address: [address] [place] [address] Performed By: #### 2 4323-8, 2885-2, 2730-8 ####[facility] LABCLIA [id number] [place] [address] [place] Anion gap [Moles/Vol] 12 mmol/L Normal 8-15 [facility] Comment on above: Order Comment: Speci men Type: BLOOD SPECIMENOrdering Facility: [facility] Address: [address] [place] [address] Performed By: #### 2 4323-8, 2885-2, 273-8 ####[facility] LABCLIA [id number] [place] [id number] [place] AST [Catalytic activity/Vol] 15 U/L Normal 13-35 [facility] Comment on above: Order Comment: Speci men Type: BLOOD SPECIMENOrdering Facility: [facility] Address: [address] [place] [address] Performed By: #### 2 4323-8, 2884-2, 2731-05 ####[facility] LABCLIA [id number] [place] [address] [place] Bilirubin [Mass/Vol] 0.2 mg/dL Normal 0.2-1.3 [facility] Comment on above: Order Comment: Speci men Type: BLOOD SPECIMENOrdering Facility: [facility] Address: [address] [place] [address] Performed By: #### 2 4323-8, 2, 2731-05 ####[facility] LABCLIA [id number] [place] [address] [place] Calcium [Mass/Vol] 11.3 mg/dL High 8.5-10.[address] [facility] Comment on above: Order Comment: Speci men Type: BLOOD SPECIMENOrdering Facility: [facility] Address: [address] [place] [address] Performed By: #### 2 4323-8, 2, 2731-05 ####[facility] LABCLIA [id number] [place] [address] [place] Chloride [Moles/Vol] 107 mmol/L Normal 98-107 [facility] Comment on above: Order Comment: Speci men Type: BLOOD SPECIMENOrdering Facility: [facility] Address: [address] [place] [address] Performed By: #### 2 4323-8, 2, 2731-05 ####[facility] LABCLIA [id number] [address] [address] [place] CO2 [Moles/Vol] 24 mmol/L Normal 22-30 [facility] Comment on above: Order Comment: Speci men Type: BLOOD SPECIMENOrdering Facility: [facility] Address: [address] [place] [id number] Performed By: #### 2 4323-8, 2884-2, 2731-05 ####[facility] LABCLIA [id number] [address] [address] [place] Creatinine [Mass/Vol] 1.78 mg/dL High 0.58-0.96 [facility] Comment on above: Order Comment: Speci men Type: BLOOD SPECIMENOrdering Facility: [facility] Address: [address] [place] [address] Performed By: #### 2 4323-8, 2884-2, 2731-05 ####[facility] LABCLIA [id number] [place] [address] [place] Creatinine and Glomerular filtration rate.predicted panel (S/P/Bld) 31 mL/min/1.73m??? Low >=60 [facility] Comment on above: Order Comment: Speci men Type: BLOOD SPECIMENOrdering Facility: [facility] Address: [address] [place] [address] Result Comment: Conchita mated Glomerular Filtration Rate (eGFR) is calculated using the 2020 CKD-EPI creatinine equation. This equation utilizes serum creatinine, sex, and age as parameters. The creatinine assay has traceable calibration to isotope dilution-mass spectrometry. Refer to KDIGO guidelines for clinical interpretation. In patients with unstable renal function, e.g. those with acute kidney injury, the eGFR may not accurately reflect actual GFR. Performed By: #### 2 4323-8, 2884-2, 2731-05 ####[facility] LABIA [id number] [place] [id number] [place] Glucose [Mass/Vol] 125 mg/dL High 74-[address] [facility] Comment on above: Order Comment: Speci men Type: BLOOD SPECIMENOrdering Facility: [facility] Address: [address] [place] [address] Result Comment: The [place] Diabetes Association (ADA) provides guidance for cutoff values for fasting glucose and random glucose. The ADA defines fasting as no caloric intake for at least 8 hours. Fasting plasma glucose results between 100 to 125 mg/dL indicate increased risk for diabetes (prediabetes). Fasting plasma glucose results greater than or equal to 126 mg/dL meet the criteria for diagnosis of diabetes. In the absence of unequivocal hyperglycemia, results should be confirmed by repeat testing. In a patient with classic symptoms of hyperglycemia or hyperglycemic crisis, random plasma glucose results greater than or equal to 200 mg/dL meet the criteria for diagnosis of diabetes. Reference: Standards of Medical Care in Diabetes 2016, [place] Diabetes Association. Diabetes Care. 2016.39(Suppl 1). Performed By: #### 2 4323-8, 288-2, 2731-05 ####[facility] LABIA [id number] [place] [address] [place] Potassium [Moles/Vol] 5.2 mmol/L High 3.7-5.1 [facility] Comment on above: Order Comment: Speci men Type: BLOOD SPECIMENOrdering Facility: [facility] Address: [address] [place] [address] Performed By: #### 2 4323-8, 2882, 2731-05 ####[facility] [id number] [place] [address] [place] Sodium [Moles/Vol] 143 mmol/L Normal 136-[address] [facility] Comment on above: Order Comment: Speci men Type: BLOOD SPECIMENOrdering Facility: [facility] Address: [address] [place] [address] Performed By: #### 2 4323-8, 288-2, 2731-05 ####[facility] LABIA [id number] [place] [address] [place] Urea nitrogen [Mass/Vol] 38 mg/dL High 7-21 [facility] Comment on above: Order Comment: Speci men Type: BLOOD SPECIMENOrdering Facility: [facility] Address: [address] [place] [address] Performed By: #### 2 4323-8, 2885-2, 2731-8 ####[facility] LABIA [id number] [address] OF [facility] HbA1c (Bld)on 06-13-2024 Average glucose Estimated from glycated hemoglobin (Bld) [Mass/Vol] 128 mg/dL Normal [facility] Comment on above: Order Comment: Tari hess Type: BLOOD SPECIMENOrdering Facility: [facility] Address: [address] [place] [address] Result Comment: eAG: (Estimated average glucose) is a calculated value from HgbA1c and is financial services representative of the average blood glucose level in the last 2-3 month period. Performed By: #### 5 5454-3 ####[facility] [id number] [address] OF [facility] HbA1c (Bld) [Mass fraction] 6.1 % High 4.3-5.6 [facility] Comment on above: Order Comment: Tari hess Type: BLOOD SPECIMENOrdering Facility: [facility] Address: [address] [place] [address] Result Comment: [place] Diabetes Association guidelines indicate that patients with HgbA1c in the range 5.7-6.4% are at increased risk for development of diabetes, and intervention by lifestyle modification may be beneficial. HgbA1c greater or equal to 6.5% is considered diagnostic of diabetes. Performed By: #### 5 5454-3 ####[facility] LABIA [id number] [address] [place] LIPID PANEL, NONFASTINGon Cholesterol [Mass/Vol] 153 mg/dL Normal <200 [facility] Comment on above: Order Comment: Tari hess Type: BLOOD SPECIMENOrdering Facility: [facility] Address: [address] [place] [address] Result Comment: <200 mg/dL, Desirable 200-239 mg/dL, Borderline high >239 mg/dL, High Performed By: #### L IPNF, 2776-1, 3023-, 3050-0 ####[facility] LABCLIA [id number] [address] [place] HDL CHOLESTEROL, NF 48 mg/dL Normal >39 [facility] Comment on above: Order Comment: Speci men Type: BLOOD SPECIMENOrdering Facility: [facility] Address: [address] [place] [address] Result Comment: 40-5 9 mg/dL, Acceptable >59 mg/dL, High: Negative risk factor for coronary heart disease <40 mg/dL, Low: Positive risk factor for coronary heart disease Performed By: #### L IPNF, 2776-, 3024-03, 0 ####[facility] LABCLIA [id number] [address] OF [facility] LDL CHOLESTEROL, NF 72 mg/dL Normal <100 [facility] Comment on above: Order Comment: Speci men Type: BLOOD SPECIMENOrdering Facility: [facility] Address: [address] [place] [address] Result Comment: <100 mg/dL, Optimal 100-129 mg/dL, Near optimal/above optimal 130-159 mg/dL, Borderline high 160-189 mg/dL, High >189 mg/dL, Very high Secondary prevention optimal LDL Cholesterol levels are recommended to be < 70 mg/dL Performed By: #### L IPNF, 2776-, 3024-03, 3050-0 ####[facility] LABCLIA [id number] [address] [place] LDL/HDL RATIO, NF 1.50 mg/dL Normal <2.54 [facility] Comment on above: Order Comment: Speci men Type: BLOOD SPECIMENOrdering Facility: [facility] Address: [address] [place] [address] Result Comment: Refe rence: 1. National Cholesterol Education Program ATP III Guideline At-A-Glance Quick Desk Reference: National Heart, Lung, and Blood [place]. National Institutes of Health. 2001: NIH Publication No. 01-3305. 2. An International Atherosclerosis Society position paper: global recommendations for the management of dyslipidemia: executive summary, Atherosclerosis. 2014: 232(2):410-413. Performed By: #### L JASS, 7-1, 3023-7, 305-0 ####[facility] LABCLIA [id number] [address] [address] [place] NON HDL CHOL, NF 105 mg/dL Normal <130 [facility] Comment on above: Order Comment: Speci men Type: BLOOD SPECIMENOrdering Facility: [facility] Address: [address] [place] [address] Result Comment: <130 mg/dL, Optimal 130-159 mg/dL, Near optimal/above optimal 160-189 mg/dL, Borderline high 190-219 mg/dL, High >219 mg/dL, Very high Secondary prevention optimal non HDL Cholesterol levels are recommended to be <100 mg/dL Performed By: #### L JASS, 2776-, 3024-03, 305-0 ####[facility] LABCLIA [id number] [place] [address] [place] T CHOL/HDL RATIO NF 3.19 mg/dL Normal <5.10 [facility] Comment on above: Order Comment: Tari hess Type: BLOOD SPECIMENOrdering Facility: [facility] Address: [address] [place] [address] Performed By: #### L JASS, 2776-, 3024-03, 305-0 ####[facility] LABCLIA [id number] [address] [address] [place] TRIGLYCERIDES, NF 167 mg/dL High <150 [facility] Comment on above: Order Comment: Tari hess Type: BLOOD SPECIMENOrdering Facility: [facility] Address: [address] [place] [address] Result Comment: <150 mg/dL, Normal 150-199 mg/dL, Borderline high 200-499 mg/dL, High >499 mg/dL, Very high Performed By: #### L IPNF, 2777-1, 3024-7, 3051-0 ####[facility] LABCLIA [id number] [address] [address] [place] VLDL CHOLESTEROL, NF 33 mg/dL High <30 [facility] Comment on above: Order Comment: Speci men Type: BLOOD SPECIMENOrdering Facility: [facility] Address: [address] [place] [address] Performed By: #### L IPNF, 2777-1, 3024-7, 3051-0 ####[facility] LABCLIA [id number] [place] [address] [place] PROTEIN ELECTROPHORESIS SERU M (P)on 06-13-2024 Albumin [Mass/Vol] 4.20 g/dL Normal 3.43-5.[address] [facility] Comment on above: Order Comment: Speci men Type: BLOOD SPECIMENOrdering Facility: [facility] Address: [address] [place] [address] Performed By: #### L [id number] ####[facility] LABCLIA [id number] [place] [address] [place] Alpha 1 globulin Elph [Mass/Vol] 0.35 g/dL Normal 0.18-0.43 [facility] Comment on above: Order Comment: Speci men Type: BLOOD SPECIMENOrdering Facility: [facility] Address: [address] [place] [address] Performed By: #### L [id number] ####[facility] LABCLIA [id number] [address] [address] [place] Alpha 2 globulin Elph [Mass/Vol] 0.82 g/dL Normal 0.42-0.98 [facility] Comment on above: Order Comment: Speci men Type: BLOOD SPECIMENOrdering Facility: [facility] Address: [address] [place] [address] Performed By: #### L [id number] ####[facility] LABCLIA [id number] [place] [address] [place] Beta globulin Elph [Mass/Vol] 0.79 g/dL Normal 0.61-1.17 [facility] Comment on above: Order Comment: Speci men Type: BLOOD SPECIMENOrdering Facility: [facility] Address: [address] [place] [address] Performed By: #### L [id number] ####[facility] LABCLIA [id number] [place] [address] [place] Gamma globulin Elph [Mass/Vol] 0.83 g/dL Normal 0.53-1.51 [facility] Comment on above: Order Comment: Speci men Type: BLOOD SPECIMENOrdering Facility: [facility] Address: [address] [place] [address] Performed By: #### L [id number] ####[facility] LABIA [id number] [place] [address] [place] M-PROTEIN LOCATION Normal [facility] Comment on above: Order Comment: Speci men Type: BLOOD SPECIMENOrdering Facility: [facility] Address: [address] [place] [address] Result Comment: Not Applicable. Performed By: #### L [id number] ####[facility] LABIA [id number] [place] [address] [place] Protein Fractions [Interp] No definitive M protein is identified on protein electrophoresis. Normal No definitive M protein is identified on protein electrophores is. [facility] Comment on above: Order Comment: Speci men Type: BLOOD SPECIMENOrdering Facility: [facility] Address: [address] [place] [address] Performed By: #### L [id number] ####[facility] LABIA [id number] [place] [address] [place] Protein.monoclonal Elph [Mass/Vol] 0.00 g/dL Normal <=0.00 [facility] Comment on above: Order Comment: Speci men Type: BLOOD SPECIMENOrdering Facility: [facility] Address: [address] [place] [address] Performed By: #### L [id number] ####[facility] LABCLIA [id number] [place] [address] [place] SPE STAFF REVIEW Reviewed by Dr. Davy Agarwal MD [facility] [place] Comment on above: Order Comment: Speci men Type: BLOOD SPECIMENOrdering Facility: [facility] Address: [address] [place] [address] Performed By: #### L [id number] ####[facility] LABIA [id number] [place] [address] [place] PTH-Intact SerPl-mCncon - Parathyrin.intact [Mass/Vol] 151 pg/mL High 15-65 [facility] Comment on above: Order Comment: Speci men Type: BLOOD SPECIMENOrdering Facility: [facility] Address: [address] [place] [address] Performed By: #### 2 4323-8, 2885-2, 2731-8 ####[facility] LABIA [id number] [place] [address] [place] Phosphate SerPl-mCncon 06-13 Phosphate [Mass/Vol] 3.1 mg/dL Normal 2.7-4.8 [facility] Comment on above: Order Comment: Speci men Type: BLOOD SPECIMENOrdering Facility: [facility] Address: [address] [place] [address] Performed By: #### L IPNF, 2777-1, 3024-7, 3051-0 ####[facility] LABCLIA [id number] [place] [address] [place] Prot SerPl-mCncon 06-13-2024 Protein [Mass/Vol] 7.0 g/dL Normal 6.3-8.[address] [facility] Comment on above: Order Comment: Speci men Type: BLOOD SPECIMENOrdering Facility: [facility] Address: [address] [place] [address] Performed By: #### 2 4323-8, 2885-2, 2731-8 ####[facility] LABCLIA [id number] [place] [address] [place] Prot Ur-mCncon 06-13-2024 Protein (U) [Mass/Vol] 12 mg/dL Normal 0-20 [facility] Comment on above: Order Comment: Speci men Type: URINE SPECIMENOrdering Facility: [facility] Address: [address] [place] [address] Performed By: #### 2 888-6 ####[facility] LABCLIA [id number] [place] [address] [place] T3Free SerPl-mCncon 06-13-20 24 Free T3 [Mass/Vol] 2.2 pg/mL Low 2.3-4.[address] [facility] Comment on above: Order Comment: Speci men Type: BLOOD SPECIMENOrdering Facility: [facility] Address: [address] [place] [address] Performed By: #### L IPNF, 2777-1, 3024-7, 3051-0 ####[facility] LABCLIA [id number] [place] [address] [place] T4 Free SerPl-mCncon 024 Free T4 [Mass/Vol] 1.2 ng/dL Normal 0.9-1.[address] [facility] Comment on above: Order Comment: Speci men Type: BLOOD SPECIMENOrdering Facility: [facility] Address: [address] [place] [address] Performed By: #### L IPNF, 2777-1, 3024-7, 3051-0 ####[facility] LABCLIA [id number] [place] [address] [place] URINE PROTEIN ELECTROPHORESI S RANDOM (P)on 06-13-2024 Albumin Elph (U) [Mass fraction] 54.99 % Normal [facility] Comment on above: Order Comment: Speci men Type: URINE SPECIMENOrdering Facility: [facility] Address: [address] [place] [address] Performed By: #### L [id number] ####[facility] LABCLIA [id number] [place] [address] [place] Alpha 1 globulin Elph (U) [Mass fraction] 5.55 % Normal [facility] Comment on above: Order Comment: Speci men Type: URINE SPECIMENOrdering Facility: [facility] Address: [address] [place] [address] Performed By: #### L [id number] ####[facility] LABCLIA [id number] [place] [address] [place] Alpha 2 globulin Elph (U) [Mass fraction] 13.75 % Normal [facility] Comment on above: Order Comment: Speci men Type: URINE SPECIMENOrdering Facility: [facility] Address: [address] [place] [address] Performed By: #### L [id number] ####[facility] LABIA [id number] [place] [address] [place] Beta globulin Elph (U) [Mass fraction] 13.37 % Normal [facility] Comment on above: Order Comment: Speci men Type: URINE SPECIMENOrdering Facility: [facility] Address: [address] [place] [address] Performed By: #### L [id number] ####[facility] LABCLIA [id number] [place] [address] [place] Gamma globulin Elph (U) [Mass fraction] 12.34 % Normal [facility] Comment on above: Order Comment: Speci men Type: URINE SPECIMENOrdering Facility: [facility] Address: [address] [place] [address] Performed By: #### L [id number] ####[facility] LABIA [id number] [address] STATES OF [facility] INTERPRETATION COMMENT FOR PROTEIN ELECTROPHORESIS The absence of M-protein on urine protein electrophoresis does not entirely exclude the presence of monoclonal gammopathy in urine. Monoclonal protein analysis (immunofixation), a more definitive test to exclude monoclonal gammopathy, may be requested on this specimen if clinically indicated. Normal [facility] Comment on above: Order Comment: Speci men Type: URINE SPECIMENOrdering Facility: [facility] Address: [address] [place] [address] Performed By: #### L [id number] ####[facility] [id number] [address] [place] Protein Fractions Elph Octavio (U) [Interp] No definitive M protein is identified on protein electrophoresis. Normal No definitive M protein is identified on protein electrophores is. [facility] Comment on above: Order Comment: Speci men Type: URINE SPECIMENOrdering Facility: [facility] Address: [address] [place] [address] Performed By: #### L [id number] ####[facility] [id number] [address] [place] STAFF REVIEW (URINE ELECTRO) Reviewed by Dr. Davy Agarwal MD Normal [facility] Comment on above: Order Comment: Speci men Type: URINE SPECIMENOrdering Facility: [facility] Address: [address] [place] [address] Performed By: #### L [id number] ####[facility] [id number] [address] [place] CNPShari 04-25-2024 CNPCharley Telephone (AGPOB1) MIRIAM THOMAS ([id number]) 1955 F Date Time Provider Department 04/25/24 AG ORTH AGPOB1 During your visit today, we recorded the following information about you: Karuna Jaramillo 04/25/2024 1:07 PM Signed ----- Message from Bindu Medina sent at 04/25/2024 12:16 PM EDT ----- Regarding: Orthopedics / Leti Roger (INGE) Foot: Wound / Unable To Schedule Dx Patient has been identified by name and Date of (Y/N): y Patient: Miriam Thomas Date of : 1955 Previous Provider Seen: Kelly Body Part(s) Identified: Right foot Diagnosis/Reason For Visit: pressure sores/wounds Reason for the call/escalation: patient needs to be seen by Kelly for right foot pressure sores. Per scheduling tool appointment center cannot schedule. If reason for call/escalation is discharge from ED/ER or Hospital, which facility was the patient seen at: na Was an appointment scheduled (Y/N): no Person calling if other than patient: patient Return call to if other than patient: patient Best contact number: [phone] Thank you, Bindu Medina April 25, 2024 12:17 PM Karuna Jaramillo 04/25/2024 1:[address] Roger wants patient seen at the wound center next week Serina Samaniego 04/25/2024 1:40 PM Signed Patient is scheduled for 8-1@915am. I called and talked with the patient. Serina Nunes Allergies As of Date: 04/25/2024 Noted Allergy Reaction MELOXICAM 06/22/2016 8 - GI Upset SULFA (SULFONAMIDE ANTIBIOTICS) 10/15/2014 7 - Swelling Comments: Facial swelling, shortness of breath. Date Reviewed: 04/03/2024 Reviewed by: Inna Roblero - Fully Assessed Reason for Visit: Appointment [186] Prescriptions as of 04/25/2024 - dulaglutide (TRULICITY) 3 mg/0.5 mL pen injector Inject 3 mg subcutaneously one time a week. - Blood-Glucose Sensor (Planspot G7 SENSOR) jackson Apply new sensor every ten (10) days. - ciclopirox (LOPROX) 0.77 % cream Apply to affected area two times a day. For 2 to 4 weeks till rash resolves. May treat recurrences for rash under abdominal pannus - acyclovir (ZOVIRAX) 400 mg tablet Take 1 tablet by mouth two times a day. - blood sugar diagnostic (BLOOD GLUCOSE TEST) test strip Test blood sugar(s) 3 to 4 times daily. Dx: Other DM Code E11.51 Insulin: Yes One touch or Accucheck strips or strips covered by her insurance. - Lancets Test blood sugar(s) 3 to 4 times daily. Dx: Other DM Code E11.51 Insulin: Yes - atorvastatin (LIPITOR) 20 mg tablet Take 1 tablet by mouth once daily. - clobetasol (TEMOVATE) 0.05 % ointment Apply nightly to affected area for 8-12 weeks, then 1-3x weekly for maintenance - escitalopram oxalate (LEXAPRO) 20 mg tablet Take 1 tablet by mouth once daily. - apixaban (ELIQUIS) 5 mg tab(s) Take 1 tablet by mouth two times a day. - ferrous sulfate 325 mg (65 mg iron) tablet Take 1 tablet by mouth every Sunday, Sunday, and Sunday. - furosemide (LASIX) 40 mg tablet Take 1 tablet by mouth once daily. - hydrALAZINE (APRESOLINE) 50 mg tablet Take 1 tablet by mouth two times a day. Hold for SBP less than 120mm HG - pantoprazole DR (PROTONIX) 40 mg tablet Take 1 tablet by mouth once daily. - gabapentin (NEURONTIN) 400 mg capsule Take 1 capsule by mouth two times a day AND 2 capsules daily at bedtime. Do all this for 90 days. - carvedilol (COREG) 6.25 mg tablet Take 1 tablet by mouth two times a day with meals. - tamsulosin (FLOMAX) 0.4 mg Take 1 capsule by mouth once daily. - nystatin (MYCOSTATIN) powder Apply 1 application to affected area twice daily as needed. For prevention - B complex w-C no.20/folic acid (B COMPLEX WITH C 20-FOLIC ACID ORAL) Take 1 tablet by mouth once daily. - berberine/herbal complex no.18 (BERBERINE-HERBAL COMB NO.18 ORAL) Take 1,200 mg by mouth once daily. - Magnesium Oxide 500 mg tab Take 1 tablet by mouth once daily. For constipation - Blood-Glucose Meter,Continuous (DEXCOM G7 ENVELOPE SEALER) misc Use to check blood sugar at least four (4) times daily. - nitroglycerin sublingual (NITROQUICK) 0.4 mg SL tablet Dissolve 1 tablet under the tongue as needed. As directed - insulin needles, DISPOSABLE, (PEN NEEDLE) 31 gauge x 5/16 Use one needle per dose. 5 per day. - bacitracin zinc 500 unit/gram ointment Apply to affected area twice daily. As directed for affected area till healed - cetirizine (ZYRTEC) 10 mg tablet Take 1 tablet by mouth once daily as needed. - insulin lispro (HUMALOG KWIKPEN) 100 unit/mL Inject 4 Units subcutaneously three times daily before meals. Utilize per sliding scale, max of 20 units per day. Pt assistance med - insulin glargine (LANTUS SOLOSTAR, BASAGLAR KWIKPEN) 100 unit/mL (3 mL) Inject 30 Units subcutaneously every morning. - aspirin, enteric coated (ASPIRIN, ENTERIC COATED) 8 (more content not included)... Normal [facility] No Panel Informationon 12-18 [facility] ARNULFO SCREENINGon 08-07-2022 [facility] US ARTERIAL PVR LOWERon 11-29 US ARTERIAL PVR LOWER Final Report DATE OF EXAM: Dec 13 2020 10:14AM [id number] - US ARTERIAL PVR LOWER / PROCEDURE REASON: pad Physician Interpretation Non-Invasive Vascular Laboratory [facility] Lower Extremity Arterial Physiology Study Bilateral/Complete Date of service/time: 12/13/2020 9:26:00 AM Name: MRS. MIRIAM THOMAS Date of : 1955 Age: 65 years Gender: F Medical History Tobacco: No Myocardial infarction: Yes Stroke: Yes PAD: Yes Hypertension: Yes Diabetes: Yes Clinical Indication Leg/foot ulceration. TECHNIQUE -------- An arterial physiological examination was performed, including measurement of blood pressures using continuous wave Doppler and recording of plethysmographic with or without Doppler waveforms at the below-mentioned limb segments. FINDINGS -------- RIGHT SIDE AT REST Right Pressures Brachial: 176 mmHg High thigh: greater than 254 mmHg Non-compressible arteries. Low thigh: 229 mmHg Partially non-compressible arteries. Calf: greater than 254 mmHg Non-compressible arteries. Ankle dorsalis pedis: 181 mmHg AYDEE: 1.03 Ankle posterior tibial: 191 mmHg AYDEE: 1.09 Digit: 114 mmHg Right PVR Waveforms High thigh: Normal. Low thigh: Normal. Calf: Normal. Ankle: Mildly dampened. Transmetatarsal: Mildly dampened. Digit: Mildly dampened. LEFT SIDE AT REST Left Pressures Brachial: 170 mmHg High thigh: greater than 254 mmHg Non-compressible arteries. Low thigh: 140 mmHg Calf: 69 mmHg Ankle dorsalis pedis: Below knee amputation. Ankle posterior tibial: Below knee amputation. Left PVR Waveforms High thigh: Normal. Low thigh: Mildly dampened. Calf: Moderately dampened. Ankle: Below knee amputation. IMPRESSION RIGHT SIDE Resting right ankle brachial index: 1.09 Right toe brachial index: 0.65 Normal ankle brachial index at rest in the right leg. Abnormal toe brachial index at rest is evidence of peripheral artery disease. Right ankle: Borderline abnormal at rest. Right small vessel disease versus vasoconstriction. LEFT SIDE Left ankle: Unable to determine severity of disease. Left BKA. Left distal superficial femoral and/or popliteal disease. Left infrapopliteal disease. Technologist: Saundra Joaquin T Ordering physician: LETI ROGER Interpreting physician: Stacy Salomon MD Final RP Chemical Process Operator: GEETA Transcribe Date/Time: Dec 13 2020 9:26A Dictated by : STACY SALOMON MD This examination was interpreted and the report reviewed and electronically signed by: STACY SALOMON MD on Dec 13 2020 1:38PM EST Normal [facility] XR CHEST 1V FRONTALon 2019 XR CHEST 1V FRONTAL Final Report DATE OF EXAM: Jul 22 2020 12:37PM [id number] - XR CHEST 1V FRONTAL / PROCEDURE REASON: Shortness of breath Physician Interpretation EXAMINATION: CHEST RADIOGRAPH (SINGLE VIEW AP OR PA) CLINICAL HISTORY: Shortness of breath MQ: XC1_5 Comparison: 12/10/2019 RESULT: Lines, tubes, and devices: None. Lungs and pleura: Linear band of subsegmental atelectasis at the right lower lobe. There is slight elevation of the right hemidiaphragm. No pneumonia or sizable pleural effusion. Cardiomediastinal silhouette: Normal cardiomediastinal silhouette. Other: No acute bony abnormality. IMPRESSION: No acute radiographic abnormality. Chemical Process Operator: SARA Transcribe Date/Time: Jul 22 2020 1:04P Dictated by : AIDE GROSSMAN MD This examination was interpreted and the report reviewed and electronically signed by: AIDE GROSSMAN MD on Jul 22 2020 1:07PM EST Normal [facility] Basic Metabolic Panelon 06-01 Anion gap [Moles/Vol] 8 mmol/L Low 9-18 [facility] Comment on above: Performed By: #### B MP #### [facility] [address] [place], [place] [address] Calcium [Mass/Vol] 10.0 mg/dL Normal 8.5-10.2 [facility] Comment on above: Performed By: #### B MP #### [facility] [address] [place], [place] [address] Chloride [Moles/Vol] 110 mmol/L High 97-105 [facility] Comment on above: Performed By: #### B MP #### [facility] [address] [place], [place] [address] CO2 [Moles/Vol] 24 mmol/L Normal 22-30 [facility] Comment on above: Performed By: #### B MP #### [facility] [address] [place], [place] [address] Creatinine [Mass/Vol] 1.53 mg/dL High 0.58-0.96 [facility] Comment on above: Performed By: #### B MP #### [facility] [address] [place], [place] [address] Glucose [Mass/Vol] 86 mg/dL Normal 74-99 [facility] Comment on above: Result Comment: The [place] Diabetes Association (ADA) provides guidance for cutoff values for fasting glucose and random glucose. The ADA defines fasting as no caloric intake for at least 8 hours.Fasting plasma glucose results between 100 to 125 mg/dL indicate increased risk for diabetes (prediabetes). Fasting plasma glucose results greater than or equal to 126 mg/dL meet the criteria for diagnosis of diabetes. In the absence of unequivocal hyperglycemia, results should be confirmed by repeat testing. In a patient with classic symptoms of hyperglycemia or hyperglycemic crisis, random plasma glucose results greater than or equal to 200 mg/dL meet the criteria for diagnosis of diabetes. Reference: Standards of Medical Care in Diabetes 2016; [place] [employer]. Diabetes Care. 2016;39(Suppl 1). Performed By: #### B MP #### [address] [address] Potassium [Moles/Vol] 4.4 mmol/L Normal 3.7-5.1 [facility] Comment on above: Performed By: #### B MP #### [facility] [address] [place], [place] [address] Sodium [Moles/Vol] 142 mmol/L Normal 136-144 [facility] Comment on above: Performed By: #### B MP #### [address] [address] Urea nitrogen [Mass/Vol] 37 mg/dL High 7-21 [facility] Comment on above: Performed By: #### B MP #### [facility] [address] [place], [place] [address] Glucose Meteron 06-11-2020 Glucose [Mass/Vol] 105 mg/dL High 70-99 [facility] Comment on above: Result Comment: CARMELO WRIGHT Performed By: #### C RP3 #### [facility] [address] [place], [place] [address] Hemogramon 06-11-2020 Erythrocyte distribution width (RBC) [Ratio] 13.2 % Normal 11.7-14.4 [facility] Comment on above: Performed By: #### C RP3 #### [facility] [address] [place] [address] Hematocrit (Bld) [Volume fraction] 26.8 % Low 34.1-44.9 [facility] Comment on above: Performed By: #### C RP3 #### [facility] [address] [place], [place] [address] Hemoglobin (Bld) [Mass/Vol] 8.4 g/dL Low 11.2-15.7 [facility] Comment on above: Performed By: #### C RP3 #### [facility] [address] [place] [address] MCH (RBC) [Entitic mass] 29.9 pg Normal 25.6-32.2 [facility] Comment on above: Performed By: #### C RP3 #### [facility] [address] [place] [address] MCHC 31.3 % Low 31.6-34.8 [facility] Comment on above: Performed By: #### C RP3 #### [facility] [address] [place] [address] MCV (RBC) [Entitic vol] 95.4 fL High 79.4-94.8 [facility] Comment on above: Performed By: #### C RP3 #### [facility] [address] [place] [address] Platelet mean volume (Bld) [Entitic vol] 9.7 fL Normal 9.4-12.3 [facility] Comment on above: Performed By: #### C RP3 #### [facility] [address] [place] [address] Platelets (Bld) [#/Vol] 305 10*3/uL Normal 182-369 [facility] Comment on above: Performed By: #### C RP3 #### [facility] [address] [place] [address] RBC 2.81 mil/cmm Low 3.93-5.22 [facility] Comment on above: Performed By: #### C RP3 #### [facility] [address] [place] [address] RDW SD 45.6 fl Normal 36.4-46.3 [facility] Comment on above: Performed By: #### C RP3 #### [facility] [address] [place], [place] [address] WBC (Bld) [#/Vol] 11.15 10*3/uL High 3.98-10.04 [facility] Comment on above: Performed By: #### C RP3 #### [place] [address] MDRD GFRon 06-11-2020 GFR/1.73 sq M.predicted among non-blacks MDRD (S/P/Bld) [Vol rate/Area] 34.25 mL/min/{1.73_m2} Normal >60mL/min/1.7 3m2 [facility] Comment on above: Result Comment: If t he patient is , multiply the result by 1.210. Performed By: #### G FR #### [place] [address] Basic Metabolic Panelon 06-01 Anion gap [Moles/Vol] 9 mmol/L Normal 9-18 [facility] Comment on above: Performed By: #### B MP #### [place] [address] Calcium [Mass/Vol] 10.3 mg/dL High 8.5-10.2 [facility] Comment on above: Performed By: #### B MP #### [place] [address] Chloride [Moles/Vol] 106 mmol/L High 97-105 [facility] Comment on above: Performed By: #### B MP #### [place] [address] CO2 [Moles/Vol] 24 mmol/L Normal 22-30 [facility] Comment on above: Performed By: #### B MP #### [address] [address] Creatinine [Mass/Vol] 1.52 mg/dL High 0.58-0.96 [facility] Comment on above: Performed By: #### B MP #### [facility] [address] [place], [place] [address] Glucose [Mass/Vol] 90 mg/dL Normal 74-99 [facility] Comment on above: Result Comment: The [place] Diabetes Association (ADA) provides guidance for cutoff values for fasting glucose and random glucose. The ADA defines fasting as no caloric intake for at least 8 hours.Fasting plasma glucose results between 100 to 125 mg/dL indicate increased risk for diabetes (prediabetes). Fasting plasma glucose results greater than or equal to 126 mg/dL meet the criteria for diagnosis of diabetes. In the absence of unequivocal hyperglycemia, results should be confirmed by repeat testing. In a patient with classic symptoms of hyperglycemia or hyperglycemic crisis, random plasma glucose results greater than or equal to 200 mg/dL meet the criteria for diagnosis of diabetes. Reference: Standards of Medical Care in Diabetes 2016; [place] [employer]. Diabetes Care. 2016;39(Suppl 1). Performed By: #### B MP #### [address] [address] Potassium [Moles/Vol] 4.2 mmol/L Normal 3.7-5.1 [facility] Comment on above: Performed By: #### B MP #### [facility] [address] [place], [place] [address] Sodium [Moles/Vol] 139 mmol/L Normal 136-144 [facility] Comment on above: Performed By: #### B MP #### [facility] [address] [place], [place] [address] Urea nitrogen [Mass/Vol] 34 mg/dL High 7-21 [facility] Comment on above: Performed By: #### B MP #### [facility] [address] [place], [place] [address] Hemogramon 06-10-2020 Erythrocyte distribution width (RBC) [Ratio] 13.2 % Normal 11.7-14.4 [facility] Comment on above: Performed By: #### C BC1 #### [facility] [address] [place], [place] [address] Hematocrit (Bld) [Volume fraction] 29.5 % Low 34.1-44.9 [facility] Comment on above: Performed By: #### C BC1 #### [facility] [address] [place] [address] Hemoglobin (Bld) [Mass/Vol] 9.4 g/dL Low 11.2-15.7 [facility] Comment on above: Performed By: #### C BC1 #### [facility] [address] [place] [address] MCH (RBC) [Entitic mass] 30.5 pg Normal 25.6-32.2 [facility] Comment on above: Performed By: #### C BC1 #### [facility] [address] [place] [address] MCHC 31.9 % Normal 31.6-34.8 [facility] Comment on above: Performed By: #### C BC1 #### [facility] [address] [place] [address] MCV (RBC) [Entitic vol] 95.8 fL High 79.4-94.8 [facility] Comment on above: Performed By: #### C BC1 #### [facility] [address] [place] [address] Platelet mean volume (Bld) [Entitic vol] 9.6 fL Normal 9.4-12.3 [facility] Comment on above: Performed By: #### C BC1 #### [facility] [address] [place] [address] Platelets (Bld) [#/Vol] 331 10*3/uL Normal 182-369 [facility] Comment on above: Performed By: #### C BC1 #### [facility] [address] [place] [address] RBC 3.08 mil/cmm Low 3.93-5.22 [facility] Comment on above: Performed By: #### C BC1 #### [facility] [address] [place] [address] RDW SD 46.0 fl Normal 36.4-46.3 [facility] Comment on above: Performed By: #### C BC1 #### [place] [address] WBC (Bld) [#/Vol] 10.10 10*3/uL High 3.98-10.04 [facility] Comment on above: Performed By: #### C BC1 #### [facility] [address] [place], [place] [address] Vancomycin,Randomon 06-10-20 20 Vancomycin,Random 14.3 ug/mL Normal 10.0-20.0 [facility] Comment on above: Result Comment: Refe rence ranges and high/low indicator flags are provided as general guidelines only. The treating physician must determine appropriate target levels/dosing based on the specific clinical situation. Performed By: #### C BC1 #### [facility] [address] [place], [place] [address] Basic Metabolic Panelon Anion gap [Moles/Vol] 8 mmol/L Low 9-18 [facility] Comment on above: Performed By: #### C RP3 #### [facility] [address] [place], [place] [address] Calcium [Mass/Vol] 9.9 mg/dL Normal 8.5-10.2 [facility] Comment on above: Performed By: #### C RP3 #### [facility] [address] [place], [place] [address] Chloride [Moles/Vol] 110 mmol/L High 97-105 [facility] Comment on above: Performed By: #### C RP3 #### [facility] [address] [place], [place] [address] CO2 [Moles/Vol] 23 mmol/L Normal 22-30 [facility] Comment on above: Performed By: #### C RP3 #### [facility] [address] [place], [place] [address] Creatinine [Mass/Vol] 1.53 mg/dL High 0.58-0.96 [facility] Comment on above: Performed By: #### C RP3 #### [facility] [address] [place], [place] [address] Glucose [Mass/Vol] 118 mg/dL High 74-99 [facility] Comment on above: Result Comment: The [place] Diabetes Association (ADA) provides guidance for cutoff values for fasting glucose and random glucose. The ADA defines fasting as no caloric intake for at least 8 hours.Fasting plasma glucose results between 100 to 125 mg/dL indicate increased risk for diabetes (prediabetes). Fasting plasma glucose results greater than or equal to 126 mg/dL meet the criteria for diagnosis of diabetes. In the absence of unequivocal hyperglycemia, results should be confirmed by repeat testing. In a patient with classic symptoms of hyperglycemia or hyperglycemic crisis, random plasma glucose results greater than or equal to 200 mg/dL meet the criteria for diagnosis of diabetes. Reference: Standards of Medical Care in Diabetes 2016; [place] [employer]. Diabetes Care. 2016;39(Suppl 1). Performed By: #### C RP3 #### [facility] [address] [place], [place] [address] Potassium [Moles/Vol] 4.4 mmol/L Normal 3.7-5.1 [facility] Comment on above: Performed By: #### C RP3 #### [facility] [address] [place], [place] [address] Sodium [Moles/Vol] 141 mmol/L Normal 136-144 [facility] Comment on above: Performed By: #### C RP3 #### [facility] [address] [place], [place] [address] Urea nitrogen [Mass/Vol] 37 mg/dL High 7-21 [facility] Comment on above: Performed By: #### C RP3 #### [address] [address] Coronavirus 2019on 0 SARS-CoV-2 (COVID-19) RNA SOFY+probe Ql (Unsp spec) Negative Normal [facility] Comment on above: Result Comment: Nega tive for COVID19 (SARS CoV2) by PCR. This test was developed and its performance characteristics determined by [facility]'s [facility] [place]. This test has been authorized by FDA under an Emergency Use Authorization (EUA). This test has been validated in accordance with the FDA's Guidance Document Policy for Diagnostics Testing in Laboratories Certified to Perform High Complexity Testing under CLIA prior to Emergency use Authorization for Coronavirus Disease 2019 during the Public Health Emergency issued on November 29, 2019. Performing Laboratory: [facility] [address] [place] [address] Performed By: #### C RP3 #### [facility] [address] [place] [address] Hemogramon 06-09-2020 Erythrocyte distribution width (RBC) [Ratio] 13.2 % Normal 11.7-14.4 [facility] Comment on above: Performed By: #### C BC1 #### [facility] [address] [place] [address] Hematocrit (Bld) [Volume fraction] 27.6 % Low 34.1-44.9 [facility] Comment on above: Performed By: #### C BC1 #### [facility] [address] [place] [address] Hemoglobin (Bld) [Mass/Vol] 8.9 g/dL Low 11.2-15.7 [facility] Comment on above: Performed By: #### C BC1 #### [place] [address] MCH (RBC) [Entitic mass] 30.8 pg Normal 25.6-32.2 [facility] Comment on above: Performed By: #### C BC1 #### [facility] [address] [place] [address] MCHC 32.2 % Normal 31.6-34.8 [facility] Comment on above: Performed By: #### C BC1 #### [place] [address] MCV (RBC) [Entitic vol] 95.5 fL High 79.4-94.8 [facility] Comment on above: Performed By: #### C BC1 #### [facility] [address] [place] [address] Platelet mean volume (Bld) [Entitic vol] 9.7 fL Normal 9.4-12.3 [facility] Comment on above: Performed By: #### C BC1 #### [place] [address] Platelets (Bld) [#/Vol] 320 10*3/uL Normal 182-369 [facility] Comment on above: Performed By: #### C BC1 #### [facility] [address] [place] [address] RBC 2.89 mil/cmm Low 3.93-5.22 [facility] Comment on above: Performed By: #### C BC1 #### [facility] [address] [place] [id number] RDW SD 46.4 fl High 36.4-46.3 [facility] Comment on above: Performed By: #### C BC1 #### [facility] [address] [place] [address] WBC (Bld) [#/Vol] 11.24 10*3/uL High 3.98-10.04 [facility] Comment on above: Performed By: #### C BC1 #### [facility] [address] [place] [address] Hgb A1con 06-09-2020 Glucose [Mass/Vol] 134 mg/dL Normal [facility] Comment on above: Performed By: #### H A1C #### [facility] [address] [place] [address] HbA1c (Bld) [Mass fraction] 6.3 % High 4.0-5.6 [facility] Comment on above: Result Comment: [place] Diabetes Association guidelines indicate that the patients with HgA1c in the range 5.7 ? 6.4% are at increased risk for development of diabetes, and intervention by lifestyle modification may be beneficial. HgA1c greater or equal to 6.5% is considered diagnostic of diabetes. Performed By: #### H A1C #### [facility] [address] [place] [id number] Protimeon 06-09-2020 INR Coag (PPP) [Relative time] 1.05 {INR} Normal 0.90-1.30 [facility] Comment on above: Result Comment: Cesilia min K Antagonist (VKA) Therapeutic Range: INR 2 to 3 (Target INR of 2.5) Note: For patients treated with VKA drugs, such as warfarin, the [place] [employer] 2012 Guideline recommends a therapeutic INR range of 2 to 3 (target INR of 2.5). This recommendation includes high-risk patients with antiphospholipid syndrome with previous arterial or venous thromboembolism, current-generation mechanical or bioprosthetic aortic heart valve replacement. Note: Patients with mechanical aortic valve replacement and additional risk factors for thromboembolic events (atrial fibrillation, previous thromboembolism, LV dysfunction, hypercoagulable conditions) or an older generation mechanical AVR (i.e., ball in-Cage) or any mechanical MVR should have a INR therapeutic range of 2.5 to 3.5 target INR of 3). Brittany GH, et al. Chest 2012; 141:7S-47S Gwen RA et al. [facility] 2017; 70: 252-289 Performed By: #### C BC1 #### [place] [address] PT Coag (PPP) [Time] 10.9 s Normal 9.7-13.0 [facility] Comment on above: Performed By: #### C BC1 #### [place] [address] Type and Screenon 06-09-2020 ABO group Nom (Bld) A Normal [facility] Comment on above: Performed By: #### T &S #### [place] [address] Comment See Below Normal [facility] Comment on above: Result Comment: Scre en &/or Xmatch expires in 3 days at 12 midnight. Redraw patient at that time. Performed By: #### T &S #### [place] [address] RH Type Positive Normal [facility] Comment on above: Performed By: #### T &S #### [place] [address] Basic Metabolic Panelon Anion gap [Moles/Vol] 10 mmol/L Normal 9-18 [facility] Comment on above: Performed By: #### B MP #### [place] [address] Calcium [Mass/Vol] 10.7 mg/dL High 8.5-10.2 [facility] Comment on above: Performed By: #### B MP #### [facility] [address] [place], [place] [address] Chloride [Moles/Vol] 106 mmol/L High 97-105 [facility] Comment on above: Performed By: #### B MP #### [facility] [address] [place], [place] [address] CO2 [Moles/Vol] 24 mmol/L Normal 22-30 [facility] Comment on above: Performed By: #### B MP #### [facility] [address] [place], [place] [address] Creatinine [Mass/Vol] 1.31 mg/dL High 0.58-0.96 [facility] Comment on above: Performed By: #### B MP #### [facility] [address] [place], [place] [address] Glucose [Mass/Vol] 143 mg/dL High 74-99 [facility] Comment on above: Result Comment: The [place] Diabetes Association (ADA) provides guidance for cutoff values for fasting glucose and random glucose. The ADA defines fasting as no caloric intake for at least 8 hours.Fasting plasma glucose results between 100 to 125 mg/dL indicate increased risk for diabetes (prediabetes). Fasting plasma glucose results greater than or equal to 126 mg/dL meet the criteria for diagnosis of diabetes. In the absence of unequivocal hyperglycemia, results should be confirmed by repeat testing. In a patient with classic symptoms of hyperglycemia or hyperglycemic crisis, random plasma glucose results greater than or equal to 200 mg/dL meet the criteria for diagnosis of diabetes. Reference: Standards of Medical Care in Diabetes 2016; [place] [employer]. Diabetes Care. 2016;39(Suppl 1). Performed By: #### B MP #### [facility] [address] [place], [place] [address] Potassium [Moles/Vol] 4.9 mmol/L Normal 3.7-5.1 [facility] Comment on above: Performed By: #### B MP #### [facility] [address] [place], [place] [address] Sodium [Moles/Vol] 140 mmol/L Normal 136-144 [facility] Comment on above: Performed By: #### B MP #### [facility] [address] [place], [place] [address] Urea nitrogen [Mass/Vol] 40 mg/dL High 7-21 [facility] Comment on above: Performed By: #### B MP #### [facility] [address] [place] [address] CRPon 06-08-2020 CRP 1.9 mg/dL High 0.0-0.8 [facility] Comment on above: Performed By: #### C RP3 #### [facility] [address] [place] [address] Cult Bloodon 06-08-2020 Cult Blood Test performed at [facility] No growth Normal [facility] Comment on above: Performed By: #### C _BLO #### [place] [address] Performed By: #### C BC1 #### [place] [address] Cult and Smr MELBA and AERon 0 06-08-2020 Cult and Smr MELBA and AER Test performed at [facility] Moderate Mixed skin jason. Moderate Mixed anaerobic jason. No Bacteroides fragilis group isolated. No Clostridium perfringens isolated. Many Mixed jason Few Polymorphonuclear leukocytes Rare Mononuclear cells ORGANISM: *Staphylococcus aureus (ID: 1) Rare Oxacillin-susceptibl e staphylococci are susceptible to other penicillinase-stable penicillins, beta-lactam/beta-lac tamase inhibitor combinations, anti-staphylococcal cephems and carbapenems. ORGANISM: *Haemophilus parainfluenzae (ID: 2) Many Beta-lactamase negative Normal [facility] Comment on above: Performed By: #### C _ANA #### [facility] [address] [place] [address] Hemogramon 06-08-2020 Erythrocyte distribution width (RBC) [Ratio] 13.1 % Normal 11.7-14.4 [facility] Comment on above: Performed By: #### C BC1 #### [place] [address] Hematocrit (Bld) [Volume fraction] 32.5 % Low 34.1-44.9 [facility] Comment on above: Performed By: #### C BC1 #### [address] [address] Hemoglobin (Bld) [Mass/Vol] 10.6 g/dL Low 11.2-15.7 [facility] Comment on above: Performed By: #### C BC1 #### [facility] [address] [place] [address] MCH (RBC) [Entitic mass] 30.9 pg Normal 25.6-32.2 [facility] Comment on above: Performed By: #### C BC1 #### [facility] [address] [place] [address] MCHC 32.6 % Normal 31.6-34.8 [facility] Comment on above: Performed By: #### C BC1 #### [facility] [address] [place] [address] MCV (RBC) [Entitic vol] 94.8 fL Normal 79.4-94.8 [facility] Comment on above: Performed By: #### C BC1 #### [facility] [address] [place] [address] Platelet mean volume (Bld) [Entitic vol] 9.8 fL Normal 9.4-12.3 [facility] Comment on above: Performed By: #### C BC1 #### [facility] [address] [place] [address] Platelets (Bld) [#/Vol] 375 10*3/uL High 182-369 [facility] Comment on above: Performed By: #### C BC1 #### [facility] [address] [place] [address] RBC 3.43 mil/cmm Low 3.93-5.22 [facility] Comment on above: Performed By: #### C BC1 #### [facility] [address] [place] [address] RDW SD 44.9 fl Normal 36.4-46.3 [facility] Comment on above: Performed By: #### C BC1 #### [place] [address] WBC (Bld) [#/Vol] 13.01 10*3/uL High 3.98-10.04 [facility] Comment on above: Performed By: #### C BC1 #### [facility] [address] [place], [place] [address] Sed Rateon 06-08-2020 Sed Rate 60 mm/hr High 0-20 [facility] Comment on above: Performed By: #### C BC1 #### [facility] [address] [place], [place] [address] MRI FOOT/TOES WO IVCON LTon 05-26-2020 MRI FOOT/TOES WO IVCON LT Final Report DATE OF EXAM: May 26 2020 6:39PM GRM [id number] - MRI FOOT/TOES WO IVCON LT / PROCEDURE REASON: multiple diagnoses Physician Interpretation EXAMINATION: MRI FOOT/TOES WO IVCON LT CLINICAL HISTORY: Inpatient / ED: Infection Outpatient: Gangrene (HCC) Skin ulcer of left foot with fat layer exposed (HCC) Pt s/p TMA - eval for possible OM distal amp sites non-healing wound left foot s/p TMA 20, eval for OM +DM Technique: Multiplanar multisequence noncontrast imaging of the left foot. Exam Date: 05/26/2020 6:39 PM Comparison: Radiograph Contrast: None RESULT: There has been prior transmetatarsal amputation. There is mildly increased T2/edema like signal within the remaining stump of the first metatarsal. No significant loss of normal fatty marrow signal. This is therefore likely reactive. Mildly increased T2/edema like signal within the distal aspect of the remaining second metatarsal without loss of normal fatty marrow signal. There is moderately increased T2 signal/edema within the residual portion of the third metatarsal. The distal third demonstrates diminished T1 signal. This may represent osteomyelitis. (Series 2 image 13 and series 6 image 15). There is abnormal increased T2 signal/marrow edema of the fourth metatarsal with corresponding decreased T1 fatty marrow signal. This may also represent osteomyelitis. Minimally increased T2/edema like signal of the residual fifth metatarsal without loss of normal T1 fatty marrow signal. There appears to be a soft tissue ulceration along the lateral aspect of the amputation stump. Within the limited constraints of a noncontrast MRI, there is no obvious abscess collection. The hindfoot demonstrates no specific marrow signal abnormality. IMPRESSION: 1. Signal abnormality of the distal aspect of the residual of the third and fourth metatarsals as detailed above. This may represent osteomyelitis. 2. Additional findings as detailed above Chemical Process Operator: PSCB Transcribe Date/Time: May 27 2020 12:05P Dictated by : HAWK LING MD This examination was interpreted and the report reviewed and electronically signed by: HAWK LING MD on May 27 2020 12:13PM EST Normal [facility] US ARTERIAL PVR LOWERon 08-2 US ARTERIAL PVR LOWER Final Report DATE OF EXAM: May 26 2020 1:26PM [id number] - US ARTERIAL PVR LOWER / PROCEDURE REASON: PAD Physician Interpretation Non-Invasive Vascular Laboratory [facility] Lower Extremity Arterial Physiology Study Bilateral/Complete Date of service/time: 05/26/2020 12:19:00 PM Name: MRS. MIRIAM THOMAS Date of : 1955 Age: 65 years Gender: F Medical History Tobacco: No Myocardial infarction: Yes Stroke: Yes PAD: Yes Hypertension: Yes Diabetes: Yes Clinical Indication PAD. Post procedure surveillance left SFA stent, left Popliteal and EMMANUEL thrombectomy. TECHNIQUE -------- An arterial physiological examination was performed, including measurement of blood pressures using continuous wave Doppler and recording of plethysmographic with or without Doppler waveforms at the below-mentioned limb segments. FINDINGS -------- RIGHT SIDE AT REST Right Pressures Brachial: 180 mmHg Calf: greater than 254 mmHg Ankle dorsalis pedis: 199 mmHg AYDEE: 1.11 Ankle posterior tibial: greater than 254 mmHg AYDEE: 1.41 Non-compressible arteries, AYDEE not accurate. Right PVR Waveforms Calf: Mildly dampened. Ankle: Mildly dampened. Digit: Mildly dampened. LEFT SIDE AT REST Left Pressures Brachial: 179 mmHg Calf: greater than 254 mmHg Ankle dorsalis pedis: 98 mmHg AYDEE: 0.54 Ankle posterior tibial: 105 mmHg AYDEE: 0.58 Digit: Transmetatarsal amputation. Left PVR Waveforms Calf: Moderately dampened. Ankle: Moderately dampened. Transmetatarsal: Transmetatarsal amputation. Digit: Transmetatarsal amputation. IMPRESSION Compared to prior study of 12/10/2019, post op right AYDEE 1.1, left AYDEE 1.04. RIGHT SIDE Resting right ankle brachial index: 1.41 Non-compressible arteries, AYDEE not accurate. Normal ankle brachial index at rest in the right leg. Right ankle: Normal at rest. LEFT SIDE Resting left ankle brachial index: 0.58 Abnormal ankle brachial index at rest diagnostic of peripheral artery disease. Left ankle: Moderate disease at rest. Left distal superficial femoral and/or popliteal disease. Technologist: Lola Rodriguez RVT Ordering physician: LETI ROGER Interpreting physician: Crystal Hooper MD Final RP Chemical Process Operator: GEETA Transcribe Date/Time: May 26 2020 12:19P Dictated by : CRYSTAL HOOPER MD This examination was interpreted and the report reviewed and electronically signed by: CRYSTAL HOOPER MD on May 26 2020 5:10PM EST Normal [facility] Cult and Smr MELBA and AERon 0 04-22-2020 Cult and Smr MELBA and AER Test performed at [facility] Many Mixed skin jason. No anaerobic organisms cultured Rare Mixed jason Rare Mononuclear cells Normal [facility] Comment on above: Performed By: #### C RP3 #### [place] [address] No Panel Information [facility] Vital Signs Date Time Vital Sign Value Performing Clinician Facility 06-11-2025 13:04-0400 Diastolic blood pressure 67 mm[Hg] Odin Dobbins MD Work Phone: [facility] 06-11-2025 13:04-0400 Heart rate 75 /min Odin Dobbins MD Work Phone: [facility] 06-11-2025 13:04-0400 SaO2% (BldA) [Mass fraction] 95 % Odin Dobbins MD Work Phone: [facility] 06-11-2025 13:04-0400 Systolic blood pressure 146 mm[Hg] Odin Dobbins MD Work Phone: [facility] 06-02-2025 09:52-0400 Diastolic blood pressure 58 mm[Hg] Nichelle Villatoro SHEAR OPERATOR AUTOMATIC[employer] Work Phone: [facility] 06-02-2025 09:52-0400 Heart rate 75 /min Nichelle Villatoro SHEAR OPERATOR AUTOMATIC.[employer] Work Phone: [facility] 06-02-2025 09:52-0400 Respiratory rate 16 /min Nichelle Villatoro SHEAR OPERATOR AUTOMATIC.[employer] Work Phone: [facility] 06-02-2025 09:52-0400 SaO2% (BldA) [Mass fraction] 97 % Nichelle Villatoro SHEAR OPERATOR AUTOMATIC.[employer] Work Phone: [facility] 06-02-2025 09:52-0400 Systolic blood pressure 130 mm[Hg] Nichelle Villatoro SHEAR OPERATOR AUTOMATIC.[employer] Work Phone: [facility] 03-19-2025 09:15-0400 Diastolic blood pressure 71 mm[Hg] Nichelle Villatoro SHEAR OPERATOR AUTOMATIC.[employer] Work Phone: [facility] 03-19-2025 09:15-0400 Heart rate 80 /min Nichelle Villatoro SHEAR OPERATOR AUTOMATIC.[employer] Work Phone: [facility] 03-19-2025 09:15-0400 Respiratory rate 16 /min Nichelle Villatoro SHEAR OPERATOR AUTOMATIC.[employer] Work Phone: [facility] 03-19-2025 09:15-0400 Systolic blood pressure 137 mm[Hg] Nichelle Villatoro SHEAR OPERATOR AUTOMATIC.[employer] Work Phone: [facility] 12-21-2024 15:54-0400 Body temperature 98.5 [degF] Dr. Earl Shepherd MD Work Phone: [facility] 12-21-2024 15:54-0400 Diastolic blood pressure 65 mm[Hg] Dr. Earl Shepherd MD Work Phone: [facility] 12-21-2024 15:54-0400 Heart rate 87 /min Dr. Earl Shepherd MD Work Phone: [facility] 12-21-2024 15:54-0400 Respiratory rate 16 /min Dr. Earl Shepherd MD Work Phone: [facility] 12-21-2024 15:54-0400 SaO2% (BldA) [Mass fraction] 96 % Dr. Earl Shepherd MD Work Phone: [facility] 12-21-2024 15:54-0400 Systolic blood pressure 147 mm[Hg] Dr. Earl Shepherd MD Work Phone: [facility] 12-21-2024 14:03-0400 Body height 157.[address] Earl Shepherd MD Work Phone: [facility] 12-21-2024 14:03-0400 Body mass index (BMI) [Ratio] 32.1 kg/m2 Dr. Earl Shepherd MD Work Phone: [facility] 12-21-2024 14:03-0400 Body weight 79.[address] Earl Shepherd MD Work Phone: [facility] 12-05-2024 09:05-0500 Diastolic blood pressure 52 mm[Hg] Odin Dobbins MD Work Phone: [facility] 12-05-2024 09:05-0500 Heart rate 71 /min Odin Dobbins MD Work Phone: [facility] 12-05-2024 09:05-0500 SaO2% (BldA) [Mass fraction] 94 % Odin Dobbins MD Work Phone: [facility] 12-05-2024 09:05-0500 Systolic blood pressure 118 mm[Hg] Odin Dobbins MD Work Phone: [facility] 11-20-2024 15:11-0500 Body height 157.5 cm Leti Roger DPM Work Phone: [facility] 11-20-2024 15:11-0500 Body mass index (BMI) [Ratio] 33.11 kg/m2 Leti Roger DPM Work Phone: [facility] 11-20-2024 15:11-0500 Body weight 82.1 kg Leti Roger DPM Work Phone: [facility] 11-20-2024 15:11-0500 Respiratory rate 18 /min Leti Roger DPM Work Phone: [facility] 11-03-2024 14:00-0500 Diastolic blood pressure 70 mm[Hg] Nichelle Villatoro SHEAR OPERATOR AUTOMATIC.[employer] Work Phone: [facility] 11-03-2024 14:00-0500 Heart rate 80 /min Nichelle Villatoro SHEAR OPERATOR AUTOMATIC.[employer] Work Phone: [facility] 11-03-2024 14:00-0500 Respiratory rate 16 /min Nichelle Villatoro SHEAR OPERATOR AUTOMATIC.[employer] Work Phone: [facility] 11-03-2024 14:00-0500 Systolic blood pressure 118 mm[Hg] Nichelle Villatoro SHEAR OPERATOR AUTOMATIC.[employer] Work Phone: [facility] 10-27-2024 11:56-0500 Diastolic blood pressure 66 mm[Hg] Nichelle Villatoro SHEAR OPERATOR AUTOMATIC.[employer] Work Phone: [facility] 10-27-2024 11:56-0500 Heart rate 73 /min Nichelle Villatoro SHEAR OPERATOR AUTOMATIC.[employer] Work Phone: [facility] 10-27-2024 11:56-0500 SaO2% (BldA) [Mass fraction] 96 % Nichelle Villatoro SHEAR OPERATOR AUTOMATIC.[employer] Work Phone: [facility] 10-27-2024 11:56-0500 Systolic blood pressure 110 mm[Hg] Nichelle Villatoro SHEAR OPERATOR AUTOMATIC.[employer] Work Phone: [facility] 10-23-2024 10:01-0500 Body temperature 97 [degF] Reji Gore SHEAR OPERATOR AUTOMATIC.COMMUNICABLE DISEASE SPECIALIST Work Phone: [facility] 10-23-2024 10:01-0500 Diastolic blood pressure 67 mm[Hg] Reji Gore SHEAR OPERATOR AUTOMATIC.COMMUNICABLE DISEASE SPECIALIST Work Phone: [facility] 10-23-2024 10:01-0500 Heart rate 75 /min Reji Gore SHEAR OPERATOR AUTOMATIC.COMMUNICABLE DISEASE SPECIALIST Work Phone: [facility] 10-23-2024 10:01-0500 Respiratory rate 20 /min Reji Gore SHEAR OPERATOR AUTOMATIC.COMMUNICABLE DISEASE SPECIALIST Work Phone: [facility] 10-23-2024 10:01-0500 SaO2% (BldA) [Mass fraction] 95 % Reji Gore SHEAR OPERATOR AUTOMATIC.COMMUNICABLE DISEASE SPECIALIST Work Phone: [facility] 10-23-2024 10:01-0500 Systolic blood pressure 102 mm[Hg] Reji Gore SHEAR OPERATOR AUTOMATIC.COMMUNICABLE DISEASE SPECIALIST Work Phone: [facility] 10-09-2024 08:27-0500 Body height 157.5 cm Pacc 1 Work Phone: [facility] 10-09-2024 08:27-0500 Body mass index (BMI) [Ratio] 33.11 kg/m2 Pacc 1 Work Phone: [facility] 10-09-2024 08:27-0500 Body temperature 98.2 [degF] Pacc 1 Work Phone: [facility] 10-09-2024 08:27-0500 Body weight 82.1 kg Pacc 1 Work Phone: [facility] 10-09-2024 08:27-0500 Diastolic blood pressure 66 mm[Hg] Pacc 1 Work Phone: [facility] 10-09-2024 08:27-0500 Heart rate 84 /min Pacc 1 Work Phone: [facility] 10-09-2024 08:27-0500 Respiratory rate 14 /min Pacc 1 Work Phone: [facility] 10-09-2024 08:27-0500 SaO2% (BldA) [Mass fraction] 97 % Pacc 1 Work Phone: [facility] 10-09-2024 08:27-0500 Systolic blood pressure 132 mm[Hg] Pacc 1 Work Phone: [facility] 10-02-2024 14:13-0500 Body height 157.5 cm Leti Kiconcetta DPM Work Phone: [facility] 10-02-2024 14:13-0500 Body mass index (BMI) [Ratio] 33.11 kg/m2 Leti Zamarripaconcetta DPM Work Phone: [facility] 10-02-2024 14:13-0500 Body weight 82.1 kg Leti Zamarripaconcetta DPM Work Phone: [facility] 10-02-2024 14:13-0500 Respiratory rate 18 /min Leti Jay Jayconcetta DPM Work Phone: [facility] 09-29-2024 13:35-0500 Body height 157.5 cm Odin Dobbins MD Work Phone: [facility] Comment on above: patient reports 09-29-2024 13:35-0500 Body mass index (BMI) [Ratio] 33.14 kg/m2 Odin Dobbins MD Work Phone: [facility] 09-29-2024 13:35-0500 Body weight 82.19 kg Odin Dobbins MD Work Phone: [facility] 09-29-2024 13:35-0500 Diastolic blood pressure 62 mm[Hg] Odin Dobbins MD Work Phone: [facility] 09-29-2024 13:35-0500 Heart rate 70 /min Odin Dobbins MD Work Phone: [facility] 09-29-2024 13:35-0500 SaO2% (BldA) [Mass fraction] 96 % Odin Dobbins MD Work Phone: [facility] 09-29-2024 13:35-0500 Systolic blood pressure 122 mm[Hg] Odin Dobbins MD Work Phone: [facility] 09-17-2024 09:38-0500 Body height 157.5 cm Leti Jay Jayconcetta DPM Work Phone: [facility] 09-17-2024 09:38-0500 Body mass index (BMI) [Ratio] 36.58 kg/m2 Leti Roger DPM Work Phone: [facility] 09-17-2024 09:38-0500 Body weight 90.72 kg Leti Roger DPM Work Phone: [facility] 09-17-2024 09:38-0500 Respiratory rate 18 /min Leti Roger DPM Work Phone: [facility] 06-13-2024 13:02-0400 Diastolic blood pressure 70 mm[Hg] Rhina Brooke SHEAR OPERATOR AUTOMATIC.COMMUNICABLE DISEASE SPECIALIST Work Phone: [facility] 06-13-2024 13:02-0400 Heart rate 82 /min Rhina Brooke SHEAR OPERATOR AUTOMATIC.COMMUNICABLE DISEASE SPECIALIST Work Phone: [facility] 06-13-2024 13:02-0400 Systolic blood pressure 157 mm[Hg] Rhina Brooke SHEAR OPERATOR AUTOMATIC.COMMUNICABLE DISEASE SPECIALIST Work Phone: [facility] 06-13-2024 12:56-0400 Body mass index (BMI) [Ratio] 36.57 kg/m2 Rhina Brooke SHEAR OPERATOR AUTOMATIC.COMMUNICABLE DISEASE SPECIALIST Work Phone: [facility] 06-13-2024 12:56-0400 Body weight 90.7 kg Rhina Brooke SHEAR OPERATOR AUTOMATIC.COMMUNICABLE DISEASE SPECIALIST Work Phone: [facility] 06-13-2024 12:56-0400 Respiratory rate 16 /min Rhina Brooke SHEAR OPERATOR AUTOMATIC.COMMUNICABLE DISEASE SPECIALIST Work Phone: [facility] 04-03-2024 09:25-0400 Body temperature 97.81 [degF] Anju Darien SHEAR OPERATOR AUTOMATIC.COMMUNICABLE DISEASE SPECIALIST Work Phone: [facility] 04-03-2024 09:25-0400 Diastolic blood pressure 68 mm[Hg] Anju Darien SHEAR OPERATOR AUTOMATIC.COMMUNICABLE DISEASE SPECIALIST Work Phone: [facility] 04-03-2024 09:25-0400 Heart rate 78 /min Anju Darien SHEAR OPERATOR AUTOMATIC.COMMUNICABLE DISEASE SPECIALIST Work Phone: [facility] 04-03-2024 09:25-0400 Respiratory rate 16 /min Anju Ledezma SHEAR OPERATOR AUTOMATIC.COMMUNICABLE DISEASE SPECIALIST Work Phone: [facility] 04-03-2024 09:25-0400 SaO2% (BldA) [Mass fraction] 95 % Anju Ledezma SHEAR OPERATOR AUTOMATIC.COMMUNICABLE DISEASE SPECIALIST Work Phone: [facility] 04-03-2024 09:25-0400 Systolic blood pressure 146 mm[Hg] Anju Ledezma SHEAR OPERATOR AUTOMATIC.COMMUNICABLE DISEASE SPECIALIST Work Phone: [facility] 03-17-2024 17:42-0400 Body mass index (BMI) [Ratio] 36.95 kg/m2 Earl Shepherd MD Work Phone: [facility] 03-17-2024 17:42-0400 Body temperature 97.7 [degF] Earl Shepherd MD Work Phone: [facility] 03-17-2024 17:42-0400 Body weight 91.63 kg Earl Shepherd MD Work Phone: [facility] 03-17-2024 17:42-0400 Diastolic blood pressure 58 mm[Hg] Earl Shepherd MD Work Phone: [facility] 03-17-2024 17:42-0400 Heart rate 82 /min Earl Shepherd MD Work Phone: [facility] 03-17-2024 17:42-0400 Respiratory rate 18 /min Earl Shepherd MD Work Phone: [facility] 03-17-2024 17:42-0400 SaO2% (BldA) [Mass fraction] 98 % Earl Shepherd MD Work Phone: [facility] 03-17-2024 17:42-0400 Systolic blood pressure 108 mm[Hg] Earl Shepherd MD Work Phone: [facility] 06-13-2023 13:06-0400 Body weight 89.36 kg Rhina Carrasco SHEAR OPERATOR AUTOMATIC.COMMUNICABLE DISEASE SPECIALIST Work Phone: [facility] 06-13-2023 13:06-0400 Diastolic blood pressure 54 mm[Hg] Rhina Brooke SHEAR OPERATOR AUTOMATIC.COMMUNICABLE DISEASE SPECIALIST Work Phone: [facility] 06-13-2023 13:06-0400 Heart rate 77 /min Rhina Brooke SHEAR OPERATOR AUTOMATIC.COMMUNICABLE DISEASE SPECIALIST Work Phone: [facility] 06-13-2023 13:06-0400 SaO2% (BldA) [Mass fraction] 96 % Rhina Brooke SHEAR OPERATOR AUTOMATIC.COMMUNICABLE DISEASE SPECIALIST Work Phone: [facility] 06-13-2023 13:06-0400 Systolic blood pressure 130 mm[Hg] Rhina Brooke SHEAR OPERATOR AUTOMATIC.COMMUNICABLE DISEASE SPECIALIST Work Phone: [facility] 01-24-2023 14:41-0400 Body height 157.5 cm Moiz Ritter Jr., MD Work Phone: [facility] 01-24-2023 14:41-0400 Body weight 78.93 kg Moiz Ritter Jr., MD Work Phone: [facility] 01-24-2023 14:41-0400 Respiratory rate 18 /min Moiz Ritter Jr., MD Work Phone: [facility] 12-11-2022 15:52-0400 Body temperature 97.3 [degF] Earl Shepherd MD Work Phone: [facility] 12-11-2022 15:52-0400 Diastolic blood pressure 64 mm[Hg] Earl Shepherd MD Work Phone: [facility] 12-11-2022 15:52-0400 Heart rate 76 /min Earl Shepherd MD Work Phone: [facility] 12-11-2022 15:52-0400 Respiratory rate 18 /min Earl Shepherd MD Work Phone: [facility] 12-11-2022 15:52-0400 SaO2% (BldA) [Mass fraction] 99 % Earl Shepherd MD Work Phone: [facility] 12-11-2022 15:52-0400 Systolic blood pressure 122 mm[Hg] Earl Shehperd MD Work Phone: [facility] Encounters Encounter Date Encounter Type Care Provider Facility Start: 06-11-2025 End: 06-11-2025 Patient encounter procedure Odin Dobbins MD Work Phone: [facility] Comment on above: PVD (peripheral vasc ular disease) (Primary Dx) Start: 06-08-2025 ambulatory Earl Shepherd [facility] y:[facility] Start: 06-02-2025 End: 06-02-2025 Office outpatient visit 25 minutes Nichelle Villatoro APRN.[employer] Work Phone: [facility] [place] Comment on above: Type 2 diabetes dariana itus with stage 3b chronic kidney disease, with long-term current use of insulin (HCC) (Primary Dx); Screening for diabetic retinopathy; Encounter for immunization; Encounter for screening mammogram for breast cancer; Class 2 severe obesity due to excess calories with serious comorbidity and body mass index (BMI) of 36.0 to 36.9 in adult ([facility]); Proliferative diabetic retinopathy associated with type 2 diabetes mellitus, macular edema presence unspecified, unspecified laterality ([facility]) Start: 06-02-2025 End: 06-02-2025 ambulatory NICHELLE VILLATORO Facility:[facility] Start: 05-14-2025 End: 05-14-2025 Refill Earl Shepherd MD Work Phone: [facility] [place] Comment on above: Refill Request (NEW PHARMACY/) Start: 04-16-2025 End: 04-16-2025 Refill Earl Shepherd MD Work Phone: [facility] [place] Comment on above: Refill Request Start: 04-15-2025 End: 04-16-2025 Refill Nichelle Villatoro APRN.[employer] Work Phone: [facility] [place] Comment on above: Refill Request Start: 03-30-2025 End: 04-09-2025 Refill Earl Shepherd MD Work Phone: [facility] [place] Comment on above: Refill Request Medication Question Start: 03-26-2025 End: 03-26-2025 Telephone encounter Earl Shepherd MD Work Phone: [facility] [place] Comment on above: Home Health Orders Start: 03-23-2025 End: 03-23-2025 Telephone encounter Saundra VILLANUEVA Navigation Start: 03-19-2025 End: 03-19-2025 Telephone encounter Donovan Harmon PSS [facility] [place] [facility] Comment on above: Home Care (Declined) Start: 03-19-2025 End: 03-19-2025 Office outpatient visit 25 minutes Nichelle Villatoro SHEAR OPERATOR AUTOMATIC.[employer] Work Phone: Internal Medicine [place] Comment on above: Self-care deficit (P rimary Dx); Moderate episode of recurrent major depressive disorder (HCC); Type 2 diabetes mellitus with diabetic neuropathy, with long-term current use of insulin (HCC); 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); Pain of left lower extremity; Type 2 diabetes mellitus with stage 3b chronic kidney disease, with long-term current use of insulin (HCC); Phantom limb syndrome with pain (HCC); Unilateral complete BKA, left, sequela (HCC) Start: 03-19-2025 End: 03-19-2025 ambulatory NICHELLE VILLATORO Facility:[facility] Start: 02-11-2025 End: 02-11-2025 Refill Earl Shepherd MD Work Phone: Internal Medicine [place] Comment on above: Refill Request Start: 02-09-2025 End: 02-09-[address] Earl Shepherd MD Work Phone: [facility] Work Phone: Start: 02-09-2025 End: 02-09-[address] Sharon Barnes DO -Laboratory Work Phone: Start: 02-09-2025 End: 02-09-2025 ambulatory Sharon Barnes Facility:[facility] Start: 01-23-2025 End: 01-23-2025 ambulatory EARL SHEPHERD Facility:[facility] Start: 01-14-2025 End: 01-16-2025 Refill Earl Shepherd MD Work Phone: Internal Medicine [place] Comment on above: Refill Request Start: 01-07-2025 End: 01-07-2025 ambulatory EARL SHEPHERD Facility:[facility] Start: 01-07-2025 Patient encounter procedure EARL SHEPHERD [facility] Start: 12-27-2024 End: 12-27-2024 ambulatory Earl Shepherd MD Work Phone: Internal Medicine [place] Comment on above: Urinary Symptoms Start: 12-21-2024 End: 12-21-2024 Emergency department patient visit Dr. Earl Shepherd MD Work Phone: -Emergency Department Work Phone: Start: 12-19-2024 End: 12-19-2024 ambulatory EARL SHEPHERD Facility:[facility] Start: 12-19-2024 End: 12-19-2024 Office outpatient visit 25 minutes Earl Shepherd MD Work Phone: Internal Medicine [place] Comment on above: Acute viral syndrome (Primary Dx); Nausea and vomiting, unspecified vomiting type; Hemiparesis affecting dominant side as late effect of stroke ([facility]); Type 2 diabetes mellitus with stage 3b chronic kidney disease, with long-term current use of insulin ([facility]) Start: 12-05-2024 End: 12-05-2024 Patient encounter procedure Odin Dobbins MD Work Phone: Vascular Surgery Comment on above: PVD (peripheral vasc ular disease) (Primary Dx) Start: 12-05-2024 End: 12-05-2024 ambulatory ODIN DOBBINS Facility:[facility] Start: 11-20-2024 End: 11-20-2024 ambulatory LETI ROGER Facility:[facility] Start: 11-20-2024 End: 11-20-2024 Patient encounter procedure Leti Roger DPM Work Phone: [facility] Comment on above: Eschar (Primary Dx); PAD (peripheral artery disease) ([facility]); Type 2 diabetes mellitus with diabetic neuropathy, with long-term current use of insulin ([facility]); Hx of amputation; Ulcer of toe of right foot, limited to breakdown of skin ([facility]); Type 2 diabetes mellitus with diabetic peripheral angiopathy without gangrene, unspecified whether alf insulin use (HCC) [E11.51] Start: 11-20-2024 End: 11-20-2024 ambulatory LETI ROGER [facility] Start: 11-19-2024 End: 11-21-2024 Refill Nichelle Villatoro SHEAR OPERATOR [employer] Work Phone: Internal Medicine [place] Comment on above: Refill Request Start: 11-12-2024 End: 11-12-[address] Sharon Barnes DO -Laboratory Work Phone: Start: 11-12-2024 End: 11-12-2024 ambulatory ODIN DOBBINS Facility:[facility] Start: 11-12-2024 End: 11-12-2024 ambulatory Sharon Barnes Facility:[facility] Start: 11-05-2024 End: 11-07-2024 Refill Earl Shepherd MD Work Phone: Internal Medicine [place] Comment on above: Refill Request Start: 11-03-2024 End: 11-03-2024 Subsequent hospital visit by physician Xr [facility] [place] Work Phone: Radiology Comment on above: Pneumonia of left lo wer lobe due to infectious organism [J18.9] Start: 11-03-2024 End: 11-03-2024 Office outpatient visit 15 minutes Nichelle Villatoro SHEAR OPERATOR AUT[employer]AT[employer] Work Phone: Internal Medicine [place] Comment on above: Pneumonia of left lo wer lobe due to infectious organism (Primary Dx) Start: 11-03-2024 End: 11-03-2024 ambulatory [facility] Facility:[facility] Start: 10-27-2024 End: 10-27-2024 ambulatory [facility] Facility:[facility] Start: 10-27-2024 End: 10-27-2024 Office outpatient visit 15 minutes Nichelle Villatoro SHEAR OPERATOR AUTOMAT[employer] Work Phone: Internal Medicine [place] Comment on above: Pneumonia of left lo wer lobe due to infectious organism (Primary Dx) Start: 10-23-2024 End: 10-23-2024 Telephone encounter Leti Roger DPM Work Phone: [facility] Start: 10-23-2024 End: 10-23-2024 Subsequent hospital visit by physician Xr [facility] [place] Work Phone: Radiology Comment on above: Acute cough [R05.1] Start: 10-23-2024 End: 10-23-2024 ambulatory EARL SHPEHERD Facility:[facility] Start: 10-23-2024 End: 10-23-2024 Office outpatient visit 25 minutes Reji Gore APRN.COMMUNICABLE DISEASE SPECIALIST Work Phone: [facility] Comment on above: Acute cough (Primary Dx); Community acquired pneumonia, unspecified laterality Start: 10-17-2024 End: 10-17-2024 Telephone encounter Earl Shepherd MD Work Phone: Internal Medicine [place] Comment on above: handicap placard Start: 10-10-2024 End: 10-10-2024 Orders Only Odin Dobbins MD Work Phone: Vascular Surgery Comment on above: PVD (peripheral vasc ular disease) (HCC) (Primary Dx) Start: 10-09-2024 End: 10-16-2024 Telephone encounter Danyell Grier RN [facility] Record Tester Comment on above: Request Outside [facility] Start: 10-09-2024 End: 10-09-2024 Admission to establishment [facility] [place] 1 Work Phone: Pre Anesthesia Start: 10-09-2024 End: 10-09-2024 ambulatory EARL Ezio [facility] Facility:[facility] Start: 10-09-2024 End: 10-09-2024 Anesthesia consultation [facility] [place] 1 Work Phone: Pre Anesthesia Comment on above: Pre-operative examin ation (Primary Dx); Diabetic gastroparesis (HCC) (HCC); Hemiparesis affecting dominant side as late effect of stroke (HCC); Essential hypertension; Mixed hyperlipidemia; Hypertensive chronic kidney disease, unspecified CKD stage; PVD (peripheral vascular disease) (HCC); Gastroesophageal reflux disease, unspecified whether esophagitis present; Urinary retention; Type 2 diabetes mellitus with stage 3b chronic kidney disease, with long-term current use of insulin (HCC); Leukemoid reaction; Recurrent major depression in partial remission (HCC); Obesity, Class I, BMI 30-34.9; JOSE (obstructive sleep apnea) Start: 10-09-2024 End: 10-09-2024 Preprocedural examination done [facility] [place] 1 Work Phone: [facility] Start: 10-09-2024 End: 10-09-2024 Subsequent hospital visit by physician Mri Radio [facility] (I-Stat/1.5t) Work Phone: Radiology Comment on above: Other acute osteomye litis of right foot ([facility]) [M86.171] Start: 10-08-2024 End: 10-08-2024 Telephone encounter Odin Dobbins MD Work Phone: Vascular Surgery Comment on above: Patient Question Start: 10-03-2024 End: 10-13-2024 Telephone encounter Earl Shepherd MD Work Phone: Internal Medicine [place] Comment on above: Handicap Placard Req uest Start: 10-02-2024 End: 10-02-2024 ambulatory LETI ROGER Facility:[facility] Start: 10-02-2024 End: 10-02-2024 Patient encounter procedure Leti Roger DPM Work Phone: [facility] Comment on above: PAD (peripheral elver ry disease) ([facility]) (Primary Dx); Type 2 diabetes mellitus with diabetic neuropathy, with long-term current use of insulin (HCC); Diabetic ulcer of toe of right foot associated with type 2 diabetes mellitus, limited to breakdown of skin (HCC) Start: 09-30-2024 End: 09-30-2024 Orders Only Odin Dobbins MD Work Phone: Vascular Surgery Comment on above: PAD (peripheral elver ry disease) (HCC) (Primary Dx) Start: 09-29-2024 End: 09-29-2024 Patient encounter procedure Odin Dobbins MD Work Phone: [facility] Comment on above: PVD (peripheral vasc ular disease) (HCC) (Primary Dx); Type 2 diabetes mellitus with stage 3b chronic kidney disease, with long-term current use of insulin (HCC); Type 2 diabetes mellitus with diabetic peripheral angiopathy with gangrene; Acquired absence of left leg below knee Start: 09-29-2024 End: 09-29-2024 ambulatory ODIN DOBBINS Facility:[facility] Start: 09-25-2024 End: 09-25-2024 Telephone encounter Leti Roger DPM Work Phone: [facility] Comment on above: Results Start: 09-22-2024 ambulatory UNKNOWN PROVIDER Facili ty:[facility] Start: 09-22-2024 End: 09-22-2024 Subsequent hospital visit by physician [facility] 1 Work Phone: Radiology Comment on above: Type 2 diabetes dariana itus with diabetic neuropathy, with long- term current use of insulin (HCC) [E11.40, Z79.4] Start: 09-17-2024 End: 09-17-2024 Subsequent hospital visit by physician Joanne Mirza [facility] Comment on above: Type 2 diabetes dariana itus with diabetic neuropathy, with long- term current use of insulin (HCC) [E11.40, Z79.4] Start: 09-17-2024 End: 09-17-2024 ambulatory LETI ROGER Facility:[facility] Start: 09-17-2024 End: 09-17-2024 Patient encounter procedure Leti Roger DPM Work Phone: [facility] Comment on above: Diabetic ulcer of to e of right foot associated with type 2 diabetes mellitus, limited to breakdown of skin (HCC) (Primary Dx); Type 2 diabetes mellitus with diabetic neuropathy, with long-term current use of insulin (HCC); PAD (peripheral artery disease) ([facility]); Hx of amputation Start: 09-16-2024 End: 09-16-2024 Telephone encounter Tucker Sanchez Work Phone: [facility] Start: 09-08-2024 End: 09-09-2024 ambulatory Francisca Neslon RN Work Phone: Online Marketing Coordinator Management Comment on above: CDM (Chronic Disease Management routine call/) Start: 09-05-2024 End: 09-05-2024 ambulatory EARL SHEPHERD Facility:[facility] Start: 09-05-2024 End: 09-05-2024 Subsequent hospital visit by physician Screen Mammo [facility] Comment on above: Encounter for screen ing mammogram for breast cancer [Z12.31] Start: 08-20-2024 End: 09-10-2024 ambulatory Earl Shepherd MD Work Phone: Internal Medicine [place] [phone] Comment on above: Patient Assistance P randolph (Basaglar Kwikpen u100 Humalog Kwikpen U100 Trulicity 4.5mg/0.5mL (SHILOH RENEWAL)) Start: 08-13-2024 End: 08-13-2024 Orders Only Adelaide Ann [facility] Work Phone: [facility] Comment on above: Type 2 diabetes dariana itus with diabetic neuropathy, with long- term current use of insulin (HCC) Start: 08-11-2024 End: 08-11-2024 Patient encounter procedure Adelaide Ann [facility] Work Phone: [facility] Comment on above: Type 2 diabetes dariana itus with stage 3b chronic kidney disease, with long-term current use of insulin (HCC) (Primary Dx); Medication management Start: 08-11-2024 End: 08-11-2024 Telemedicine consultation with patient Adelaide Ann [facility] Work Phone: [facility] Start: 08-11-2024 End: 08-11-2024 ambulatory Francisca Nelson RN Work Phone: Online Marketing Coordinator Management Comment on above: CDM (Chronic Disease Management routine call/) Start: 07-30-2024 End: 07-30-2024 Telephone encounter Adelaide Ann [facility] Work Phone: [facility] Comment on above: Appointment (Primary care reschedule) Start: 07-28-2024 End: 07-28-2024 E-mail encounter from caregiver Adelaide Ann [facility] Work Phone: [facility] Start: 07-28-2024 End: 07-28-2024 Patient encounter procedure Adelaide Ann [facility] Work Phone: [facility] Comment on above: Diabetes visit with pharmacist Start: 07-28-2024 End: 07-28-2024 ambulatory Sharon Barnes Facility:[facility] Start: 07-25-2024 End: 07-28-2024 ambulatory Francisca Nelson RN Work Phone: Online Marketing Coordinator Management Comment on above: CDM (Chronic Disease Management routine call/) Start: 07-21-2024 End: 07-22-2024 Telephone encounter Earl Shepherd MD Work Phone: Internal Medicine [place] Comment on above: Patient Update Start: 06-26-2024 End: 06-27-2024 ambulatory Francisca Nelson RN Work Phone: Online Marketing Coordinator Management Comment on above: CDM (Chronic Disease Management routine call/) Start: 06-24-2024 End: 06-24-2024 Telephone encounter Rhina Carrasco APRN.COMMUNICABLE DISEASE SPECIALIST Work Phone: Internal Medicine [place] Comment on above: Results Start: 06-19-2024 End: 06-19-2024 Refill Earl Shepherd MD Work Phone: Internal Medicine [place] Comment on above: Refill Request Start: 06-13-2024 End: 06-13-2024 Patient encounter procedure Rhina Carrasco APRN.COMMUNICABLE DISEASE SPECIALIST Work Phone: Internal Medicine [place] Comment on above: Type 2 diabetes dariana itus with stage 3b chronic kidney disease, with long-term current use of insulin (HCC) (Primary Dx); Moderate episode of recurrent major depressive disorder (HCC); Essential hypertension; Gastroesophageal reflux disease without esophagitis; Mixed hyperlipidemia; Proliferative diabetic retinopathy associated with type 2 diabetes mellitus, macular edema presence unspecified, unspecified laterality (HCC); Muscular deconditioning; Hx of BKA, left ([facility]) Start: 06-13-2024 End: 06-13-2024 ambulatory EARL SHEPHERD Facility:[facility] Start: 06-04-2024 End: 06-04-2024 Patient encounter procedure Adelaide Ann [facility] Work Phone: [facility] Comment on above: Type 2 diabetes dariana itus with stage 3b chronic kidney disease, with long-term current use of insulin (HCC) (Primary Dx); Type 2 diabetes mellitus with diabetic neuropathy, with long-term current use of insulin (HCC) Start: 06-04-2024 End: 06-04-2024 Telemedicine consultation with patient Adelaide [facility] Work Phone: [facility] Start: 06-04-2024 End: 06-04-2024 ambulatory EARL SHEPHERD Facility:[facility] Start: 05-29-2024 End: 05-30-2024 ambulatory Francisca Nelson RN Work Phone: Online Marketing Coordinator Management Comment on above: CDM (Chronic Disease Management routine call/) Start: 05-27-2024 End: 05-27-2024 Follow-up encounter Prabhakar NGUYEN [facility] Social Work Comment on above: Need for follow-up b y health care social worker (Primary Dx); Needs assistance with community resources Start: 05-14-2024 Follow-up encounter Prabhakar BAILEY [facility] Social Work Comment on above: Need for follow-up b y health care social worker (Primary Dx) Start: 05-07-2024 End: 05-07-2024 Patient encounter procedure Adelaide Ann [facility] Work Phone: [facility] Comment on above: Type 2 diabetes dariana itus with stage 3b chronic kidney disease, with long-term current use of insulin (HCC) (Primary Dx); Medication management; Type 2 diabetes mellitus with diabetic neuropathy, with long-term current use of insulin (HCC) Start: 05-07-2024 End: 05-07-2024 Telemedicine consultation with patient Adelaide [facility] Work Phone: [facility] Start: 05-02-2024 Refill Nichelle Villatoro APRN.CNS Work Phone: Internal Medicine [place] Comment on above: Refill Request Start: 05-01-2024 Social Work [address]ar NGUYEN [facility] Social Work Comment on above: Change in financial circumstances (Primary Dx) Start: 04-29-2024 ambulatory Francisca J May R N Work Phone: Online Marketing Coordinator Management Comment on above: CDM (Chronic Disease Management routine call/) Start: 04-25-2024 Telephone encounter Ag Orth Work Phone: [facility] Comment on above: Appointment Start: 04-03-2024 End: 04-03-2024 Patient encounter procedure Anju Ledezma APRN.COMMUNICABLE DISEASE SPECIALIST Work Phone: [facility] Comment on above: Red eye (Primary Dx) Start: 04-02-2024 Telephone encounter Adelaide domínguez [facility] Work Phone: [facility] Comment on above: Mounjaro Start: 04-02-2024 End: 04-02-2024 Patient encounter procedure Adelaide Ann [facility] Work Phone: [facility] Comment on above: Type 2 diabetes dariana itus with stage 3b chronic kidney disease, with long-term current use of insulin ([facility]) (Primary Dx); Medication management Start: 04-02-2024 End: 04-02-2024 Telemedicine consultation with patient [facility] Work Phone: [facility] Start: 04-01-2024 ambulatory Francisca Velázquez May R N Work Phone: Online Marketing Coordinator Management Comment on above: CDM (Chronic Disease Management routine call/) Start: 03-19-2024 Refill Earl mayfield MD Work Phone: Internal Medicine [place] Comment on above: Refill Request Start: 2024 Telephone encounter Earl hull MD Work Phone: [facility] Comment on above: Primary Care Pha[employer] cy Start: 03-17-2024 End: 03-17-2024 Office outpatient visit 40 minutes Earl Shepherd MD Work Phone: Internal Medicine [place] Comment on above: Trigger middle finge r of right hand (Primary Dx); Trigger ring finger of right hand; Class 2 severe obesity due to excess calories with serious comorbidity and body mass index (BMI) of 36.0 to 36.9 in adult (HCC); Type 2 diabetes mellitus with diabetic neuropathy, with long-term current use of insulin ([facility]); Weight gain; Constipation, unspecified constipation type; Candidal intertrigo; Genital herpes simplex type 1 infection; Right hip pain; Anemia, unspecified type; Osteoporosis without current pathological fracture, unspecified osteoporosis type; Type 2 diabetes mellitus with stage 3b chronic kidney disease, with long-term current use of insulin ([facility]); Hypercalcemia; Abdominal bloating; Hx of BKA, left ([facility]); PVD (peripheral vascular disease) ([facility]) Start: 03-14-2024 Telephone encounter Earl hull MD Work Phone: Internal Medicine [place] Comment on above: Appointment Start: 03-12-2024 ambulatory [facility] [place] Start: 03-12-2024 Patient encounter procedure [facility] [place] Comment on above: Population Health Na vigation Outreach ( Care Gaps) Start: 03-03-2024 ambulatory Francisca Velázquez May R N Work Phone: Online Marketing Coordinator Management Comment on above: CDM (Chronic Disease Management routine call/) Start: 02-01-2024 ambulatory Francisca Nelson R N Work Phone: Online Marketing Coordinator Management Comment on above: CDM (Chronic Disease Management routine call/) Start: 01-10-2024 Telephone encounter Earl hull MD Work Phone: Internal Medicine [place] Comment on above: Orders Start: 01-01-2024 ambulatory Khushboo Graves RN Work Phone: [facility] Start: 01-01-2024 Follow-up encounter Khushboo rivera RN Work Phone: Online Marketing Coordinator Management Comment on above: Community Monitoring Outreach (Follow up ) Start: 12-31-2023 ambulatory Khushboo Graves RN Work Phone: [facility] Start: 12-31-2023 Follow-up encounter Khushboo rivera RN Work Phone: Online Marketing Coordinator Management Comment on above: Community Monitoring Outreach (Follow up) Start: 12-21-2023 Telephone encounter Earl hull MD Work Phone: Internal Medicine [place] Comment on above: Patient Request Start: 12-12-2023 End: 12-12-2023 Office outpatient visit 25 minutes Earl Shepherd MD Work Phone: Internal Medicine [place] Comment on above: Moderate episode of recurrent major depressive disorder (HCC) (Primary Dx); Type 2 diabetes mellitus with stage 3b chronic kidney disease, with long-term current use of insulin (HCC); Essential hypertension; Hemiparesis affecting dominant side as late effect of stroke (HCC); Gastroesophageal reflux disease without esophagitis; Genital herpes simplex type 1 infection; Encounter for immunization Start: 12-03-2023 ambulatory Francisca Michel RN Ambul atory Care Management Comment on above: CDM (Community Monit oring Outreach Call) Start: 11-19-2023 ambulatory Khushboo Graves RN Work Phone: [email or web address] [email or web address] Start: 11-19-2023 Follow-up encounter Khushobo rivera RN Work Phone: Online Marketing Coordinator Management Comment on above: Community Monitoring Outreach (Follow up ) Start: 11-16-2023 ambulatory Khushboo Graves RN Work Phone: [facility] [employer] Start: 11-16-2023 Follow-up encounter Khushboo rivera RN Work Phone: Online Marketing Coordinator Management Comment on above: Community Monitoring Outreach (Follow up ) Start: 11-05-2023 Refill Nichelle Villatoro SHEAR OPERATOR AUTOMATIC.FILLING [employer] Work Phone: Internal Medicine [place] Comment on above: Refill Request Start: 09-14-2023 ambulatory Felipe Carranza RN Amb ulatory Care Management Comment on above: CDM (Telephonic Outr each ) Start: 08-02-2023 Refill Rhina Brooke SHEAR OPERATOR AUTOMATIC.COMMUNICABLE DISEASE SPECIALIST Work Phone: Online Marketing Coordinator Management Comment on above: Refill Request Start: 07-22-2023 Refill Rhina Cristobalr SHEAR OPERATOR AUTOMATIC.COMMUNICABLE DISEASE SPECIALIST Work Phone: Online Marketing Coordinator Management Comment on above: Refill Request Start: 07-18-2023 ambulatory Francisca Peterson Work Phone: Online Marketing Coordinator Management Comment on above: CDM (Check in call ) Start: 06-13-2023 End: 06-13-2023 Patient encounter procedure Rhina Carrasco APRN.COMMUNICABLE DISEASE SPECIALIST Work Phone: Internal Medicine [place] Comment on above: Right hip pain (Prim parker Dx); Hypertensive chronic kidney disease, unspecified CKD stage; Hx of BKA, left (HCC); Obstruction of tear duct of both sides; Type 2 diabetes mellitus with diabetic neuropathy, with long-term current use of insulin (HCC); Proliferative diabetic retinopathy of both 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, unspecified proliferative retinopathy type (HCC); PVD (peripheral vascular disease) (HCC); Mixed hyperlipidemia; Encounter for therapeutic drug monitoring Start: 05-18-2023 Telephone encounter Twyla hopson APRN.COMMUNICABLE DISEASE SPECIALIST Work Phone: OB/Gynecology Comment on above: Results Start: 05-17-2023 ambulatory Francisca J May R N Work Phone: Online Marketing Coordinator Management Comment on above: CDM (Check in call/) Start: 05-12-2023 ambulatory Earl mayfield MD Work Phone: Internal Medicine [place] Comment on above: Gabapentin Start: 05-10-2023 Refill Ealr mayfield MD Work Phone: Internal Medicine [place] Comment on above: Refill Request Start: 04-19-2023 ambulatory Francisca J May R N Work Phone: Online Marketing Coordinator Management Comment on above: CDM (Check in call/) Start: 04-01-2023 Refill Earl mayfield MD Work Phone: Internal Medicine [place] Comment on above: Refill Request Start: 03-21-2023 ambulatory Francisca J May R N Work Phone: Online Marketing Coordinator Management Comment on above: CDM (Check in call/) Start: 01-25-2023 ambulatory Felipe Carranza RN Amb ulatory Care Management Comment on above: CDM (Telephonic Outr each) Start: 01-24-2023 End: 01-24-2023 Patient encounter procedure Moiz Ritter MD Work Phone: [facility] Comment on above: Trigger middle finge r of right hand (Primary Dx); Trigger ring finger of right hand Start: 01-02-2023 Telephone encounter Earl hull MD Work Phone: [facility] [place] Comment on above: Patient Update Start: 12-27-2022 ambulatory Felipe Carranza RN Amb ulatory Care Management Comment on above: CDM (Telephonic Outr each) Start: 12-27-2022 Telephone encounter Earl hull MD Work Phone: [facility] [place] Comment on above: results Start: 12-26-2022 ambulatory Felipe Carranza RN Amb ulatory Care Management Comment on above: CDM (Telephonic Outr each) Start: 12-18-2022 End: 12-18-2022 Subsequent hospital visit by physician Bone Density [facility] Work Phone: Radiology Comment on above: Asymptomatic postmen opausal status [Z78.0] Start: 12-11-2022 End: 12-11-2022 Office outpatient visit 40 minutes Earl Shepherd MD Work Phone: [facility] [place] Comment on above: Type 2 diabetes dariana itus with stage 3b chronic kidney disease, with long-term current use of insulin (HCC) (Primary Dx); Moderate episode of recurrent major depressive disorder (HCC); Essential hypertension; Hemiparesis affecting dominant side as late effect of stroke (HCC); Gastroesophageal reflux disease without esophagitis; Genital herpes simplex type 1 infection; Asymptomatic postmenopausal status Start: 12-07-2022 Telephone encounter Nichelle marte SHEAR OPERATOR AUTOMATIC.[employer] Work Phone: [facility] [place] Comment on above: Lab Orders Start: 11-11-2022 ambulatory Alexandre Douglas RN Work Phone: Online Marketing Coordinator Management Comment on above: CDM outreach (CDM te lephonic outreach ) Start: 11-07-2022 Refill Nichelle Villatoro APRN.[employer]ING [employer] Work Phone: [facility] [place] Comment on above: Refill Request Start: 10-19-2022 ambulatory Alexandre Douglas RN Work Phone: Online Marketing Coordinator Management Comment on above: CDM outreach (CDM es calation f/u ) Start: 10-19-2022 Telephone encounter Pedro preston COMMUNICABLE DISEASE SPECIALIST Work Phone: [facility] Comment on above: Initial Consult (Urg ent Dispatch) Start: 10-18-2022 ambulatory Maria Guadalupe Barlow MD Work Phone: Virtual Medicine Comment on above: Hyperglycemia (Prima ry Dx) Start: 10-18-2022 Telemedicine consult ation with patient Maria Guadalupe Barlow MD Work Phone: MAIN VIRTUAL VISIT Start: 09-11-2022 ambulatory Alexandre Thomas RN Work Phone: Online Marketing Coordinator Management Comment on above: CDM outreach (CDM te lephonic outreach ) Start: 08-30-2022 Telephone encounter Saundra BAILEY Navigation Comment on above: Patient Assistance Start: 08-09-2022 Refill Alexandre Thomas RN Work Phone: Online Marketing Coordinator Management Comment on above: Refill Request Start: 08-07-2022 End: 08-07-2022 Refill Earl Shepherd MD Work Phone: [facility] [place] Comment on above: Medication Problem Community monitoring outreach (CDM telephonic outreach ) Encounter for screen ing mammogram for breast cancer [Z12.31] Start: 07-24-2022 ambulatory Alexia Chav[facility] Comment on above: Population Health Na vigation Outreach (/[place] Care Gaps) Start: 07-20-2022 ambulatory Ibrahima Ng RN Am bulatory Care Management Comment on above: Community Monitoring Outreach Start: 07-04-2022 ambulatory Ibrahima Ng RN Am bulatory Care Management Comment on above: Community Monitoring Outreach Start: 07-03-2022 ambulatory Ibrahima Ng RN Am bulatory Care Management Comment on above: Community Monitoring Outreach Start: 06-02-2022 ambulatory Ibrahima Ng RN Am bulatory Care Management Comment on above: Community Monitoring Outreach Start: 05-25-2022 Telephone encounter Earl hull MD Work Phone: [facility] [place] Comment on above: Patient Question Start: 05-19-2022 Refill Nichelle Villatoro APRN.CNS Work Phone: [facility] [place] Comment on above: Refill Request Start: 05-15-2022 ambulatory Ibrahima Ng RN Am [facility] Comment on above: Community Monitoring Outreach Start: 04-28-2022 ambulatory Ibrahima Ng RN [facility] Comment on above: Community Monitoring Outreach (CKD Telephonic CDM Outreach) Start: 04-12-2022 ambulatory Ibrahima Ng RN Am [facility] Comment on above: Community Monitoring Outreach (CKD Telephonic CDM Outreach) Start: 04-11-2022 Refill Earl mayfield MD Work Phone: [facility] [place] Comment on above: Refill Request Start: 03-30-2022 Refill Earl mayfield MD Work Phone: [facility] [place] Comment on above: Refill Request Start: 03-23-2022 Telephone encounter Earl hull MD Work Phone: [facility] [place] Comment on above: Prescription Quest[facility] n Start: 03-20-2022 ambulatory Ibrahima Ng RN Am bul[facility] Care Management Comment on above: Community Monitoring Outreach (CKD CDM Outreach) Start: 03-02-2022 ambulatory [facility] Comment on above: Refill Request Start: 02-24-2022 ambulatory Ibrahima Ng RN Am bul[facility] Care Management Comment on above: Community Monitoring Outreach (CKD Telephonic CDM Outreach) Start: 01-30-2022 ambulatory Ibrahima Ng RN Am bulatory Care Management Comment on above: Community Monitoring Outreach (CKD CDM Outreach) Start: 01-24-2022 Refill Earl mayfield MD Work Phone: [facility] [place] Comment on above: Refill Request Start: 12-30-2021 Refill Earl mayfield MD Work Phone: [facility] [place] Comment on above: Refill Request Procedures Date Procedure Procedure Detail Performing Clinician Start: 02-09-[address] Earl Shepherd MD Work Phone: Start: 02-09-2025 Serum inorganic phos phate measurement Dr. Earl Shepherd MD Work Phone: Start: 02-09-2025 Vitamin D, 25-hydrox y measurement Dr. Earl Shepherd MD Work Phone: Comment on above: Vitamin D StatusDefi ciency: <20 ng/mL (50nmol/L)Insufficiency: 20-30 ng/mL (50-75 nmol/L)Sufficiency: 30-100 ng/mL (75-250 nmol/L)Toxicity: >100 ng/mL (>250 nmol/L) Start: 12-21-[address] Earl Shepherd MD Work Phone: Start: 12-21-2024 SARS-CoV-2, Influenz a & RSV (PCR) Dr. Earl Shepherd MD Work Phone: Start: 11-20-2024 Radex foot complete minimum 3 views Leti Roger DPM Work Phone: Start: 11-12-2024 Assay of phosphorus inorganic Dr. Earl Shepherd MD Work Phone: Start: 11-12-2024 Measurement of renal function Dr. Earl Shepherd MD Work Phone: Comment on above: GFR Calc Start: 11-12-[address] Earl Shepherd MD Work Phone: Start: 11-12-2024 Vitamin D, 25-hydrox y measurement Dr. Earl Shepherd MD Work Phone: Comment on above: Vitamin D 25(OH) Sta tus Range Deficiency <20 ng/mL (50nmol/L) Insufficiency 20 - 30 ng/mL (50 - 75 nmol/L) Sufficiency 30 - 100 ng/mL (75 - 250 nmol/L) Toxicity >100 ng/mL (>250 nmol/L) Start: 11-03-2024 Radiologic exam ches t 2 views Nichelle Villatoro SHEAR OPERATOR AUTOMATIC.[employer] Work Phone: Start: 10-23-2024 Radiologic exam ches t 2 views Reji Coffeyasha SHEAR OPERATOR AUTOMATIC.COMMUNICABLE DISEASE SPECIALIST Work Phone: Start: 10-09-2024 Mri lower extrem oth /thn jt w/o contr matrl Leti Roger DPM Work Phone: Start: 09-22-2024 Non-invasive physiol ogic study extremity 3 levls Leti Roger DPM Work Phone: Start: 01-24-2023 End: 01-24-2023 Injection 1 tendon sheath/ligament aponeurosis Moiz Ritter MD Work Phone: Start: 12-18-2022 Dxa bone density esteban dy 1/> sites axial skel Earl Shepherd MD Work Phone: Start: 08-07-2022 End: 08-07-2022 Mammography Bulk Order Provider Start: 10-13-2020 Mammography Earl camara MD Work Phone: Start: 06-09-2020 Antibody screen Comment on above: Performed By: #### T &S #### [place] [id number] Start: 02-17-2016 Colonoscopy Earl camara MD Work Phone: Plan of Treatment Date Care Activity Detail Author Start: 06-11-2026 End: 06-11-2026 US Lower extremity artery US LEG ARTERIAL PERIPH UNL [facility] Vascular Lab Routine PVD (peripheral vascular disease) Expected: 06/11/2026 (Approximate), Expires: 06/11/2026 [facility] Work Phone: Comment on above: Expected: 06/11/2026 (Approximate), Expi res: 06/11/2026 Start: 06-11-2026 End: 06-11-2026 US.doppler Extremity arteries - bilateral for physiologic artery study PVR ANK PRESS KIRSTIE [facility] Vascular Lab Routine PVD (peripheral vascular disease) Expected: 06/11/2026, Expires: 06/11/2026 [facility] Comment on above: Expected: 06/11/2026, Expires: Start: 06-02-2026 Annual PCP Team Chronic Disease Visit Annual PCP Team Chronic Disease Visit [facility] Start: 03-19-2026 Annual PCP Team Chronic Disease Visit Annual PCP Team Chronic Disease Visit [facility] Start: 02-16-2026 Colonoscopy COLONOSCOPY [facility] Start: 02-16-2026 COLORECTAL CANCER SCREENING COLORECTAL CANCER SCREENING [facility] Start: 02-16-2026 Screening for malignant neoplasm of colon [facility] Start: 01-23-2026 Hepatitis B screening Urine Albumin:Creatinine Ratio [facility] Start: 01-07-2026 Annual PCP Team Chronic Disease Visit Annual PCP Team Chronic Disease Visit [facility] Start: 01-07-2026 Pneumococcal Vaccine: 50+ (2 of 2 - PCV) Pneumococcal Vaccine: 50+ (2 of 2 - PCV) [facility] Comment on above: Postponed from 10/01/2005 (Declined at t his time) Start: 12-19-2025 Annual PCP Team Chronic Disease Visit Annual PCP Team Chronic Disease Visit [facility] Start: 12-18-2025 End: 12-18-2025 Patient encounter procedure 12/18/2025 11:00 AM EDT Office Visit [facility] [place] [address] [place] [address] Earl Shepherd MD [address] [place], [place] [address] 3 month f/u [facility] [place] Comment on above: 3 month f/u Start: 12-05-2025 BP Controlled (<130/80) BP Controlled (<130/80) [facility] Start: 11-20-2025 Complete blood count Hemoglobin/Hematocrit [facility] Start: 11-03-2025 BP Controlled (<130/80) BP Controlled (<130/80) [facility] Start: 10-27-2025 BP Controlled (<130/80) BP Controlled (<130/80) [facility] Start: 10-23-2025 BP Controlled (<130/80) BP Controlled (<130/80) [facility] Start: 10-10-2025 Complete blood count Hemoglobin/Hematocrit [facility] Start: 10-10-2025 Creatinine measurement Serum Creatinine [facility] Start: 09-29-2025 BP Controlled (<130/80) BP Controlled (<130/80) [facility] Start: 09-29-2025 End: 09-29-2025 Patient encounter procedure 09/29/2025 1:10 PM EST Appointment Mammogram [address] [place] [address] Mammogram Start: 09-18-2025 End: 09-18-2025 Patient encounter procedure 09/18/2025 11:00 AM EST Office Visit [facility] [place] [address] [facility] [place] [address] Nichelle Villatoro APRN.[employer]LLING [employer] [address] [place] [address] 3 month f/u [facility] [place] Comment on above: 3 month f/u Start: 09-05-2025 Screening for malignant neoplasm of breast Mammogram Screening [facility] Start: 06-13-2025 Annual PCP Team Chronic Disease Visit Annual PCP Team Chronic Disease Visit [facility] Start: 06-13-2025 Creatinine measurement Serum Creatinine [facility] Start: 06-13-2025 Hepatitis B surface antibody level LDL Cholesterol [facility] Start: 06-11-2025 End: 06-11-2025 Patient encounter procedure Vascular Surgery Comment on above: PVR AND 6 MONTH FOLLOW UP Start: 06-07-2025 End: 12-05-2025 US Lower extremity artery - bilateral PVR ANK/LOPEZ/TOE [facility] Vascular Lab Routine PVD (peripheral vascular disease) (HCC) Expected: 06/07/2025, Expires: 12/05/2025 [facility] Work Phone: Comment on above: Expected: 06/07/2025, Expires: Start: 06-02-2025 End: 09-01-2025 Hemoglobin A1c in Blood HEMOGLOBIN A1C Lab Routine Type 2 diabetes mellitus with stage 3b chronic kidney disease, with long-term current use of insulin (HCC) Expected: 06/02/2025, Expires: 09/01/2025 [facility] Work Phone: Comment on above: Expected: 06/02/2025, Expires: Start: 06-02-2025 End: 09-01-2025 LIPID PANEL, NONFASTING LIPID PANEL, NONFASTING Lab Routine Type 2 diabetes mellitus with stage 3b chronic kidney disease, with long-term current use of insulin (HCC) Expected: 06/02/2025, Expires: 09/01/2025 [facility] Comment on above: Expected: 06/02/2025, Expires: Start: 06-02-2025 End: 06-02-2025 Patient encounter procedure [facility] [place] Comment on above: 3 month f/u Start: 06-01-2025 Influenza vaccination [facility] Start: 05-21-2025 Glaucoma screening Dilated Retinal Exam [facility] Start: 03-30-2025 Influenza vaccination Influenza Vaccine (#1) [facility] Comment on above: Postponed from 06/01/2024 (Declined at t his time) Start: 03-17-2025 Annual PCP Team Chronic Disease Visit Annual PCP Team Chronic Disease Visit [facility] Start: 03-17-2025 BP Controlled (<130/80) BP Controlled (<130/80) [facility] Start: 02-09-2025 End: 02-09-2025 Patient encounter procedure 02/09/2025 1:00 PM EDT [facility] [address] [place], [place] [id number] Adelaide Ann, [facility] [address] [place] [id number] DM f/up [facility] Comment on above: DM f/up Start: 02-06-2025 Glaucoma screening Dilated Retinal Exam [facility] Start: 01-07-2025 End: 01-07-2025 Patient encounter procedure 01/07/2025 3:40 PM EDT Office Visit [facility] [place] [address] [place], [place] [id number] Earl Shepherd MD [address] [place] [address] yearly medicare wellness exam [facility] [place] Comment on above: yearly medicare wellness exam Start: 12-21-2024 [facility] Start: 12-19-2024 End: 12-19-2024 Patient encounter procedure 12/19/2024 1:00 PM EDT Office Visit [facility] [place] [address] [place] [address] Earl Shepherd MD [address] [place] [address] 1 year follow up [facility] [place] Comment on above: 1 year follow up Start: 12-18-2024 End: 12-18-2024 Patient encounter procedure 12/18/2024 2:30 PM EDT Office Visit [facility] [address] [place], [place] [id number] Leti Roger DPM [address] [address] rt foot time ok'd by LK [facility] Comment on above: rt foot time ok'd by LK Start: 12-11-2024 Annual PCP Team Chronic Disease Visit Annual PCP Team Chronic Disease Visit [facility] Start: 12-11-2024 Hemoglobin A1c measurement HbA1C [facility] Start: 12-10-2024 Complete blood count Hemoglobin/Hematocrit [facility] Start: 12-10-2024 Creatinine measurement Serum Creatinine [facility] Start: 12-10-2024 Hepatitis B screening Urine Albumin:Creatinine Ratio [facility] Start: 12-10-2024 Hepatitis B surface antibody level LDL Cholesterol [facility] Start: 12-05-2024 End: 12-05-2024 Patient encounter procedure 12/05/2024 9:15 AM EST Office Visit Vascular Surgery [address] [address] Odin Dobbins MD [address] [place] [address] Follow up from surgery Vascular Surgery Comment on above: Follow up from surgery Start: 11-20-2024 End: 02-19-2025 Erythrocyte sedimentation rate [facility] Work Phone: Comment on above: Expected: 11/20/2024, Expires: Start: 11-17-2024 End: 11-17-2024 Patient encounter procedure 11/17/2024 10:30 AM EST Office Visit [facility] [address] [place], [place] [phone] Twila Petit, SHEAR OPERATOR AUTOMATIC.COMMUNICABLE DISEASE SPECIALIST [facility] [address] [place], [place] [phone] PO to review testing [facility] Comment on above: PO to review testing Start: 11-12-2024 End: 11-12-2024 Patient encounter procedure Vasculary Surgery Comment on above: PVD (peripheral vascular disease) ([facility]) [I73.9] Start: 11-10-2024 End: 10-10-2025 US Lower extremity artery US LEG ARTERIAL PERIPH UNL [facility] Vascular Lab Routine PVD (peripheral vascular disease) (HCC) Expected: 11/10/2024 (Approximate), Expires: 10/10/2025 [facility] Work Phone: Comment on above: Expected: 11/10/2024 (Approximate), Expi res: 10/10/2025 Start: 11-10-2024 End: 10-10-2025 US.doppler Extremity arteries - bilateral for physiologic artery study PVR ANK PRESS KIRSTIE [facility] Vascular Lab Routine PVD (peripheral vascular disease) (HCC) Expected: 11/10/2024 (Approximate), Expires: 10/10/2025 [facility] Comment on above: Expected: 11/10/2024 (Approximate), Expi res: 10/10/2025 Start: 11-10-2024 End: 11-10-2024 Patient encounter procedure 11/10/2024 1:40 PM EST Office Visit [facility] [place] [address] [place], [place] [id number] Xochitl Gavin, SHEAR OPERATOR AUTOMATIC.COMMUNICABLE DISEASE SPECIALIST [address] [place] [address] follow up [facility] [place] Comment on above: follow up Start: 11-03-2024 End: 11-03-2024 Patient encounter procedure 11/03/2024 2:00 PM EST Office Visit [facility] [place] [address] [facility] [place] [address] Nichelle Villatoro, SHEAR OPERATOR AUTOMATIC.[employer] [address] [facility] [address] follow up [facility] [place] Comment on above: follow up Start: 10-27-2024 End: 10-27-2024 Patient encounter procedure 10/27/2024 12:00 PM EST Office Visit [facility] [place] [address] [place] [address] Nichelle Villatoro, SHEAR OPERATOR AUTOMATIC.[employer] [address] [facility] [place] [address] f/u chest congestion and cough [facility] [place] Comment on above: f/u chest congestion and cough Start: 10-23-2024 End: 10-23-2024 Patient encounter procedure 10/23/2024 11:00 AM EST Office Visit [facility] [address] [place] [address] Leti Roger, ULISESM [address] [phone] rt foot 2nd and 3rd toes [facility] Comment on above: rt foot 2nd and 3rd toes Start: 10-16-2024 End: 10-16-2024 Patient encounter procedure 10/16/2024 1:00 PM EST Office Visit [facility] [address] [place] [address] Leti Roger, DPM [address] [phone] rt foot 2nd and 3rd toes [facility] Comment on above: rt foot 2nd and 3rd toes Start: 10-10-2024 End: 10-10-2024 Admission to same day surgery center 10/10/2024 9:00 AM EST - 10/10/2024 11:20 AM EST [facility] Record Tester [address] [place] [address], [place] [address] Odin Dobbins MD [address] [place] [address] ANGIOGRAM EXTREMITY UNILATERAL RADIOLOGICAL [facility] Record Tester Comment on above: ANGIOGRAM EXTREMITY UNILATERAL RADIOLOGI [facility] Start: 10-10-2024 Subsequent hospital visit by physician 10/10/2024 9:00 AM EST Hospital Encounter [facility] [address] [place] [address] Odin Dobbins MD [address] [place] [address] PAD (peripheral artery disease) (HCC) [I73.9] [facility] Record Tester Comment on above: PAD (peripheral artery disease) (HCC) [I 73.9] Start: 10-10-2024 End: 10-10-2024 Angiography extremity unilateral rs&i ME CATH Start: 10-09-2024 End: 10-09-2024 Patient encounter procedure 10/09/2024 9:30 AM EST Appointment Radiology [address] [place] [address] MRI FOOT/TOES WO IVCON Other acute osteomyelitis of right foot (HCC) [M86.171] *SCHEDULED W/ GAYATHRI IN OFFICE Radiology Comment on above: MRI FOOT/TOES WO IVCON Other acute osteo myelitis of right foot (HCC) [M86.171] *SCHEDULED W/ GAYATHRI IN OFFICE Start: 10-09-2024 Subsequent hospital visit by physician 10/09/2024 9:30 AM EST Hospital Encounter Radiology [address] [place] [address] Other acute osteomyelitis of right foot (HCC) [M86.171] Radiology Comment on above: Other acute osteomyelitis of right foot (HCC) [M86.171] Start: 10-09-2024 End: 10-09-2024 Anesthesia consultation 10/09/2024 8:40 AM EST PAT Pre Anesthesia [address] [facility] [place] [address] 1, [facility] [place] [address] [place] [address] pre op Pre Anesthesia Comment on above: pre op Start: 10-02-2024 End: 10-02-2024 Patient encounter procedure 10/02/2024 2:00 PM EST Office Visit [facility] [address] [place] [address] Leti Roger, INGE [address] [facility] [place] [address] [place], [place] [phone] R 2nd toe- PVR results- ok Karuna R [facility] Comment on above: R 2nd toe- PVR results- ok Karuna R Start: 10-01-2024 Advance Directive Discussion Advance Directive Discussion [facility] Start: 09-29-2024 End: 09-29-2024 Patient encounter procedure 09/29/2024 1:30 PM EST Office Visit [facility] [address] [place] [address] Odin Dobbins MD [address] [facility], [address] [address] PVD, Diabetic ulcer of toe of right foot ref by Dr Roger; 09/25/2024 MRI foot toes w/o IV con right [facility] Comment on above: PVD, Diabetic ulcer of toe of right foot ref by Dr Roger; 09/25/2024 MRI foot toes w/o IV con right Start: 09-22-2024 End: 09-22-2024 Patient encounter procedure 09/22/2024 1:15 PM EST Appointment Radiology [address] [place] [address] US ARTERIAL PVR LOWER, Type 2 diabetes mellitus with diabetic neuropathy, with long-term current use of... Radiology Comment on above: US ARTERIAL PVR LOWER, Type 2 diabetes m ellitus with diabetic neuropathy, with long-term current use of... Start: 09-17-2024 End: 09-17-2024 Patient encounter procedure 09/17/2024 9:30 AM EST Office Visit [facility] [address] [place] [address] [address] [place] [phone] Leti Roger, INGE [address] [place] [address] [place] [id number] R 2nd toe [facility] Comment on above: R 2nd toe Start: 09-05-2024 End: 09-05-2024 Patient encounter procedure 09/05/2024 12:30 PM EST Appointment Mammogram [address] [place] [address] Mammogram Start: 07-23-2024 End: 07-23-2024 Patient encounter procedure 07/23/2024 1:00 PM EDT [facility] [address] [place], [place] [phone] Adelaide Ann, [facility] [address] [place] [phone] DM f/up [facility] Comment on above: DM f/up Start: 07-08-2024 End: 10-07-2024 Basic metabolic 2000 panel - Serum or Plasma BASIC METABOLIC PANEL Lab Routine Encounter for therapeutic drug monitoring Expected: 07/08/2024, Expires: 10/07/2024 [facility] Work Phone: Comment on above: Expected: 07/08/2024, Expires: Start: 06-13-2024 3 comp foot exam completed Diabetic Foot Exam [facility] Start: 06-13-2024 Annual PCP Team Chronic Disease Visit Annual PCP Team Chronic Disease Visit [facility] Start: 06-13-2024 BP Controlled (<130/80) BP Controlled (<130/80) [facility] Start: 06-13-2024 Diabetic foot examination Diabetic Foot Exam [facility] Start: 06-13-2024 End: 09-12-2024 Hemoglobin A1c in Blood [facility] Work Phone: Comment on above: Expected: 06/13/2024, Expires: Start: 06-13-2024 End: 09-12-2024 LIPID PANEL, NONFASTING [facility] Comment on above: Expected: 06/13/2024, Expires: 4 Start: 06-13-2024 End: 06-13-2024 Patient encounter procedure 06/13/2024 1:00 PM EDT Office Visit [facility] [place] [address] [place] [address] Rhina Carrasco APRN.COMMUNICABLE DISEASE SPECIALIST [address] [place], [place] [id number] 6 month follow up [facility] [place] Comment on above: 6 month follow up Start: 06-12-2024 Hemoglobin A1c measurement HbA1C [facility] Start: 06-07-2024 End: 09-06-2024 Comprehensive metabolic 2000 panel - Serum or Plasma COMPREHENSIVE METABOLIC PANEL Lab Routine Type 2 diabetes mellitus with stage 3b chronic kidney disease, with long-term current use of insulin (HCC) Expected: 06/07/2024, Expires: 09/06/2024 [facility] Comment on above: Expected: 06/07/2024, Expires: 4 Start: 06-07-2024 End: 09-06-2024 Lipid 1996 panel - Serum or Plasma LIPID PANEL BASIC Lab Routine Type 2 diabetes mellitus with stage 3b chronic kidney disease, with long-term current use of insulin (HCC) Expected: 06/07/2024, Expires: 09/06/2024 [facility] Work Phone: Comment on above: Expected: 06/07/2024, Expires: Start: 06-04-2024 End: 06-04-2024 Patient encounter procedure 06/04/2024 2:00 PM EDT [facility] [address] [place] [address] Adelaide Ann, [facility] [address] [place] [address] DM [facility] Comment on above: DM f/up Start: 06-01-2024 Influenza vaccination [facility] Start: 05-15-2024 BP CONTROLLED (<130/80) BP CONTROLLED (<130/80) [facility] Start: 05-15-2024 Glaucoma screening Dilated Retinal Exam [facility] Start: 05-15-2024 Hepatitis C antibody, confirmatory test Dilated Retinal Exam [facility] Start: 05-07-2024 End: 05-07-2024 Patient encounter procedure 05/07/2024 1:00 PM EDT [facility] [address] [place] [address] [place] [place] [id number] DM and med review; 60 mins per [facility] Comment on above: DM and med review; 60 mins per [place] Start: 05-01-2024 End: 05-01-2024 Patient encounter procedure 05/01/2024 9:30 AM EDT Office Visit [facility] [address] [place] [address] Hugo December,N.COMMUNICABLE DISEASE SPECIALIST [address] [place], [place] [id number] right foot [facility] Comment on above: right foot Start: 04-02-2024 End: 04-02-2024 Patient encounter procedure 04/02/2024 11:00 AM EDT [facility] [address] [place] [address] [place] [address] [place] [address] [facility] Comment on above: [facility] Start: 03-30-2024 Influenza vaccination Influenza Vaccine (#1) [facility] Comment on above: Postponed from 06/01/2023 (Declined at t his time) Start: 03-17-2024 End: 03-17-2024 Patient encounter procedure 03/17/2024 6:00 PM EDT Office Visit [facility] [address] [place] [address] Earl Shepherd MD [address], [place] [phone] personal matter. Okay'd by [facility] Comment on above: personal matter. Okay'd by T Start: 03-17-2024 End: 06-16-2024 25-hydroxyvitamin D3 [Mass/volume] in Serum or Plasma VITAMIN D 25 HYDROXY Lab Routine Osteoporosis without current pathological fracture, unspecified osteoporosis type Type 2 diabetes mellitus with stage 3b chronic kidney disease, with long-term current use of insulin (HCC) Expected: 03/17/2024, Expires: 06/16/2024 [facility] Comment on above: Expected: 03/17/2024, Expires: Start: 03-17-2024 End: 06-16-2024 Calcium.ionized [Moles/volume] in Blood CALCIUM, IONIZED Lab Routine Hypercalcemia Expected: 03/17/2024, Expires: 06/16/2024 [facility] Comment on above: Expected: 03/17/2024, Expires: Start: 03-17-2024 End: 06-16-2024 CBC panel - Blood by Automated count COMPLETE BLOOD COUNT Lab Routine Anemia, unspecified type Expected: 03/17/2024, Expires: 06/16/2024 [facility] Comment on above: Expected: 03/17/2024, Expires: Start: 03-17-2024 End: 06-16-2024 Cobalamin (Vitamin B12) [Mass/volume] in Serum or Plasma VITAMIN B12 Lab Routine Anemia, unspecified type Expected: 03/17/2024, Expires: 06/16/2024 [facility] Comment on above: Expected: 03/17/2024, Expires: Start: 03-17-2024 End: 06-16-2024 Comprehensive metabolic 2000 panel - Serum or Plasma COMPREHENSIVE METABOLIC PANEL Lab Routine Type 2 diabetes mellitus with diabetic neuropathy, with long-term current use of insulin (HCC) Expected: 03/17/2024, Expires: 06/16/2024 [facility] Work Phone: Comment on above: Expected: 03/17/2024, Expires: 4 Start: 03-17-2024 End: 06-16-2024 Ferritin [Mass/volume] in Serum or Plasma FERRITIN Lab Routine Anemia, unspecified type Expected: 03/17/2024, Expires: 06/16/2024 [facility] Comment on above: Expected: 03/17/2024, Expires: Start: 03-17-2024 End: 06-16-2024 Folate [Mass/volume] in Serum or Plasma FOLATE, SERUM Lab Routine Anemia, unspecified type Expected: 03/17/2024, Expires: 06/16/2024 [facility] Comment on above: Expected: 03/17/2024, Expires: Start: 03-17-2024 End: 06-16-2024 Iron and Iron binding capacity panel - Serum or Plasma IRON AND TIBC Lab Routine Anemia, unspecified type Expected: 03/17/2024, Expires: 06/16/2024 [facility] Comment on above: Expected: 03/17/2024, Expires: Start: 03-17-2024 End: 06-16-2024 Parathyrin.intact [Mass/volume] in Serum or Plasma PTH INTACT Lab Routine Hypercalcemia Expected: 03/17/2024, Expires: 06/16/2024 [facility] Comment on above: Expected: 03/17/2024, Expires: Start: 03-17-2024 End: 06-16-2024 Phosphate [Mass/volume] in Serum or Plasma PHOSPHORUS INORGANIC Lab Routine Hypercalcemia Expected: 03/17/2024, Expires: 06/16/2024 [facility] Comment on above: Expected: 03/17/2024, Expires: 4 Start: 03-17-2024 End: 06-16-2024 PROTEIN ELECT RND UR W/INTERP PROTEIN ELECT RND UR W/INTERP Lab Routine Hypercalcemia Expected: 03/17/2024, Expires: 06/16/2024 [facility] Comment on above: Expected: 03/17/2024, Expires: Start: 03-17-2024 End: 06-16-2024 PROTEIN ELECTROPHORESIS SERUM W/INTERP PROTEIN ELECTROPHORESIS SERUM W/INTERP Lab Routine Hypercalcemia Expected: 03/17/2024, Expires: 06/16/2024 [facility] Comment on above: Expected: 03/17/2024, Expires: Start: 03-17-2024 End: 06-16-2024 Thyrotropin [Units/volume] in Serum or Plasma THYROID STIMULATING HORMONE Lab Routine Weight gain Constipation, unspecified constipation type Expected: 03/17/2024, Expires: 06/16/2024 [facility] Comment on above: Expected: 03/17/2024, Expires: 4 Start: 03-17-2024 End: 06-16-2024 Thyroxine (T4) free [Mass/volume] in Serum or Plasma T4 FREE/FREE THYROXINE Lab Routine Weight gain Constipation, unspecified constipation type Expected: 03/17/2024, Expires: 06/16/2024 [facility] Comment on above: Expected: 03/17/2024, Expires: Start: 03-17-2024 End: 06-16-2024 Triiodothyronine (T3) Free [Mass/volume] in Serum or Plasma T3, FREE Lab Routine Weight gain Constipation, unspecified constipation type Expected: 03/17/2024, Expires: 06/16/2024 [facility] Comment on above: Expected: 03/17/2024, Expires: Start: 12-12-2023 ANNUAL PCP TEAM CHRONIC DISEASE VISIT ANNUAL PCP TEAM CHRONIC DISEASE VISIT [facility] Start: 12-12-2023 BP CONTROLLED (<130/80) BP CONTROLLED (<130/80) [facility] Start: 12-12-2023 COVID-19 VACCINE (#1) COVID-19 VACCINE (#1) [facility] Comment on above: Postponed from 1957 (Declined at t his time) Start: 12-12-2023 Pneumococcal Vaccine: 65+ (2 - PCV) Pneumococcal Vaccine: 65+ (2 - PCV) [facility] Comment on above: Postponed from 10/01/2005 (Declined at t his time) Start: 12-12-2023 Pneumococcal Vaccine: 65+ (2 of 2 - PCV) Pneumococcal Vaccine: 65+ (2 of 2 - PCV) [facility] Comment on above: Postponed from 10/01/2005 (Declined at t his time) Start: 12-12-2023 PNEUMOCOCCAL: 65+ (2 - PCV) PNEUMOCOCCAL: 65+ (2 - PCV) [facility] Comment on above: Postponed from 10/01/2005 (Declined at t his time) Start: 12-12-2023 Urine microalbumin profile [facility] Comment on above: Postponed from 10/01/2018 (Declined at t his time) Start: 12-08-2023 Complete blood count Hemoglobin/Hematocrit [facility] Start: 12-08-2023 Creatinine measurement Serum Creatinine [facility] Start: 12-08-2023 HEMOGLOBIN/HEMATOCRIT HEMOGLOBIN/HEMATOCRIT [facility] Start: 12-08-2023 Hepatitis B surface antibody level LDL CHOLESTEROL [facility] Start: 12-08-2023 SERUM CREATININE SERUM CREATININE [facility] Start: 11-30-2023 End: 01-30-2024 ALBUMIN/CREAT RATIO RND UR ALBUMIN/CREAT RATIO RND UR Lab Routine Type 2 diabetes mellitus with diabetic neuropathy, with long-term current use of insulin (HCC) Expected: 11/30/2023, Expires: 01/30/2024 [facility] Work Phone: Comment on above: Expected: 11/30/2023, Expires: 4 Start: 11-30-2023 End: 01-30-2024 CBC W Auto Differential panel - Blood CBC + DIFF Lab Routine Encounter for therapeutic drug monitoring Expected: 11/30/2023, Expires: 01/30/2024 [facility] Work Phone: Comment on above: Expected: 11/30/2023, Expires: 4 Start: 11-30-2023 End: 01-30-2024 Comprehensive metabolic 2000 panel - Serum or Plasma COMP METABOLIC PANEL Lab Routine Encounter for therapeutic drug monitoring Expected: 11/30/2023, Expires: 01/30/2024 [facility] Work Phone: Comment on above: Expected: 11/30/2023, Expires: 4 Start: 11-30-2023 End: 01-30-2024 Hemoglobin A1c in Blood HGB A1C Lab Routine Type 2 diabetes mellitus with diabetic neuropathy, with long-term current use of insulin (HCC) Encounter for therapeutic drug monitoring Expected: 11/30/2023, Expires: 01/30/2024 [facility] Work Phone: Comment on above: Expected: 11/30/2023, Expires: 4 Start: 11-30-2023 End: 01-30-2024 Lipid 1996 panel - Serum or Plasma LIPID PANEL BASIC Lab Routine Type 2 diabetes mellitus with diabetic neuropathy, with long-term current use of insulin (HCC) Mixed hyperlipidemia Expected: 11/30/2023, Expires: 01/30/2024 [facility] Work Phone: Comment on above: Expected: 11/30/2023, Expires: 4 Start: 11-30-2023 End: 01-30-2024 Magnesium [Mass/volume] in Serum or Plasma MAGNESIUM BLD Lab Routine Encounter for therapeutic drug monitoring Expected: 11/30/2023, Expires: 01/30/2024 [facility] Work Phone: Comment on above: Expected: 11/30/2023, Expires: 4 Start: 10-01-2023 Advance Directive Discussion Advance Directive Discussion [facility] Start: 08-07-2023 Mammography [facility] Start: 08-07-2023 Screening for malignant neoplasm of breast Mammogram Screening [facility] Start: 06-09-2023 Hemoglobin A1c measurement HbA1C [facility] Start: 06-09-2023 Hemoglobin A1c/Hemoglobin.total in Blood HBA1C [facility] Start: 06-01-2023 Influenza vaccination [facility] Start: 03-30-2023 Influenza vaccination INFLUENZA (#1) [facility] Comment on above: Postponed from 06/01/2022 (Declined at t his time) Start: 12-07-2022 End: 02-06-2023 ALBUMIN/CREAT RATIO RND UR [facility] Work Phone: Comment on above: Expected: 12/07/2022, Expires: 3 Start: 12-07-2022 End: 02-06-2023 CBC panel - Blood by Automated count [facility] Work Phone: Comment on above: Expected: 12/07/2022, Expires: 3 Start: 12-07-2022 End: 02-06-2023 Comprehensive metabolic 2000 panel - Serum or Plasma [facility] Work Phone: Comment on above: Expected: 12/07/2022, Expires: 3 Start: 12-07-2022 End: 02-06-2023 Hemoglobin A1c in Blood [facility] Work Phone: Comment on above: Expected: 12/07/2022, Expires: 3 Start: 12-07-2022 End: 02-06-2023 Lipid 1996 panel - Serum or Plasma [facility] Work Phone: Comment on above: Expected: 12/07/2022, Expires: 3 Start: 10-12-2022 ANNUAL PCP TEAM CHRONIC DISEASE VISIT ANNUAL PCP TEAM CHRONIC DISEASE VISIT [facility] Start: 10-01-2022 ADVANCE DIRECTIVE DISCUSSION ADVANCE DIRECTIVE DISCUSSION [facility] Start: 07-26-2022 End: 09-25-2022 ALBUMIN/CREAT RATIO RND UR ALBUMIN/CREAT RATIO RND UR Lab Routine Type 2 diabetes mellitus with diabetic neuropathy, with long-term current use of insulin (HCC) Expected: 07/26/2022, Expires: 09/25/2022 [facility] Work Phone: Comment on above: Expected: 07/26/2022, Expires: 2 Start: 07-26-2022 End: 09-25-2022 CBC panel - Blood by Automated count CBC Lab Routine Essential hypertension Expected: 07/26/2022, Expires: 09/25/2022 [facility] Work Phone: Comment on above: Expected: 07/26/2022, Expires: 2 Start: 07-26-2022 End: 09-25-2022 Comprehensive metabolic 2000 panel - Serum or Plasma COMP METABOLIC PANEL Lab Routine Mixed hyperlipidemia Essential hypertension Expected: 07/26/2022, Expires: 09/25/2022 [facility] Work Phone: Comment on above: Expected: 07/26/2022, Expires: 2 Start: 07-26-2022 End: 09-25-2022 Hemoglobin A1c in Blood HGB A1C Lab Routine Type 2 diabetes mellitus with diabetic neuropathy, with long-term current use of insulin (HCC) Expected: 07/26/2022 (Approximate), Expires: 09/25/2022 [facility] Work Phone: Comment on above: Expected: 07/26/2022 (Approximate), Expi res: 09/25/2022 Start: 07-26-2022 End: 09-25-2022 Lipid 1996 panel - Serum or Plasma LIPID PANEL BASIC Lab Routine Mixed hyperlipidemia Expected: 07/26/2022, Expires: 09/25/2022 [facility] Work Phone: Comment on above: Expected: 07/26/2022, Expires: 2 Start: 06-01-2022 Influenza vaccination [facility] Start: 05-09-2022 HEMOGLOBIN/HEMATOCRIT HEMOGLOBIN/HEMATOCRIT [facility] Start: 05-09-2022 SERUM CREATININE SERUM CREATININE [facility] Start: 04-09-2022 COVID-19 VACCINE (#1) COVID-19 VACCINE (#1) [facility] Comment on above: Postponed from 1962 (Declined at t his time) Start: 04-09-2022 COVID-19 VACCINE (1) COVID-19 VACCINE (1) [facility] Comment on above: Postponed from 1962 (Declined at t his time) Start: 03-28-2022 BP CONTROLLED (<130/80) BP CONTROLLED (<130/80) [facility] Start: 2022 ADVANCE DIRECTIVE DISCUSSION ADVANCE DIRECTIVE DISCUSSION [facility] Start: 2022 BONE DENSITY BONE DENSITY [facility] Start: 12-10-2021 3 comp foot exam completed DIABETIC FOOT EXAM [facility] Start: 11-09-2021 Hemoglobin A1c/Hemoglobin.total in Blood HBA1C [facility] Start: 10-13-2021 Mammography MAMMOGRAM [facility] Start: 09-20-2021 Hepatitis B surface antibody level LDL CHOLESTEROL [facility] Start: 08-11-2021 Hepatitis C antibody, confirmatory test DILATED RETINAL EXAM [facility] Start: 03-01-2021 HPV TESTING HPV TESTING [facility] Start: 03-01-2021 PAP TESTING PAP TESTING [facility] Start: 10-01-2018 Urine microalbumin profile [facility] Start: 2017 Hepatitis B Vaccine (1 of 3 - Risk 3-dose series) Hepatitis B Vaccine (1 of 3 - Risk 3-dose series) [facility] Start: 2017 RSV Vaccine (1 - 1-dose 60+ series) RSV Vaccine (1 - 1-dose 60+ series) [facility] Start: 2017 RSV Vaccine (1 - Risk 60-74 years 1-dose series) RSV Vaccine (1 - Risk 60-74 years 1-dose series) [facility] Start: 10-01-2005 PNEUMOCOCCAL (2 - PCV) PNEUMOCOCCAL (2 - PCV) [facility] Start: 10-01-2005 Pneumococcal Vaccine: 50+ (2 of 2 - PCV) Pneumococcal Vaccine: 50+ (2 of 2 - PCV) [facility] Start: 10-01-2005 Pneumococcal Vaccine: 65+ (2 of 2 - PCV) Pneumococcal Vaccine: 65+ (2 of 2 - PCV) [facility] Start: 10-01-2005 PNEUMOCOCCAL: 65+ (2 - PCV) PNEUMOCOCCAL: 65+ (2 - PCV) [facility] Start: 2002 COLOGUARD (FIT-DNA) COLOGUARD (FIT-DNA) [facility] Start: [address] COLONOGRAPHY [facility] Start: 2002 FECAL OCCULT BLOOD FECAL OCCULT BLOOD [facility] Start: 2002 Screening for malignant neoplasm of colon [facility] Start: 2002 SIGMOIDOSCOPY SIGMOIDOSCOPY [facility] Start: 1975 HIV SCREENING HIV SCREENING [facility] Start: 1957 COVID-19 VACCINE (#1) COVID-19 VACCINE (#1) [facility] End: 09-19-2025 DBT Breast - bilateral screening ARNULFO SCREENING W MISHA Radiology Routine Encounter for screening mammogram for breast cancer 1 Occurrences starting 08/20/2024 until 09/19/2025 [facility] Work Phone: Comment on above: 1 Occurrences starting 08/20/2024 until 09/19/2025 End: 07-02-2026 DBT Breast - bilateral screening ARNULFO SCREENING W MISHA Radiology Routine Encounter for screening mammogram for breast cancer 1 Occurrences starting 06/02/2025 until 07/02/2026 [facility] Comment on above: 1 Occurrences starting 06/02/2025 until 07/02/2026 MG Breast Screening ARNULFO SCREENIN G Radiology Routine Encounter for screening mammogram for breast cancer 09/05/2024 12:57 PM EST [facility] Work Phone: End: 10-25-2025 MR Foot - right WO contrast MRI FOOT/TOES WO IVCON RIGHT Radiology IVAN Other acute osteomyelitis of right foot (HCC) 1 Occurrences starting 09/25/2024 until 10/25/2025 [facility] Work Phone: Comment on above: 1 Occurrences starting 09/25/2024 until 10/25/2025 Patient Education Coronavirus Di sease 2019 (COVID-19): Caring for Yourself or Others ED Vomiting (Adult) [facility] Work Phone: Patient referral [facility] Work Phone: End: 10-17-2025 US Lower extremity artery US ARTERIAL PVR LOWER Radiology IVAN Type 2 diabetes mellitus with diabetic neuropathy, with long-term current use of insulin (HCC) PAD (peripheral artery disease) (HCC) Diabetic ulcer of toe of right foot associated with type 2 diabetes mellitus, 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 1 Occurrences starting 09/17/2024 until 10/17/2025 [facility] Work Phone: Comment on above: 1 Occurrences starting 09/17/2024 until 10/17/2025 End: 11-26-2025 XR Chest PA and Lateral XR CHEST 2V FRONTAL/LAT Radiology STAT Pneumonia of left lower lobe due to infectious organism 1 Occurrences starting 10/27/2024 until 11/26/2025 [facility] Work Phone: Comment on above: 1 Occurrences starting 10/27/2024 until 11/26/2025 End: 09-17-2024 XR Foot - right AP and Lateral and oblique [facility] Work Phone: Comment on above: 1 Occurrences starting 09/17/2024 until 09/17/2024 [facility] Immunizations Immunization Date Immunization Notes Care Provider Therese eckert 09-20-2020 influenza, injectabl e, quadrivalent, contains preservative Earl Shepherd MD Work Phone: [facility] Work Phone: 09-20-2020 influenza virus vacc ine, unspecified formulation Rhina Carrasco APRN.CNP Work Phone: [facility] 08-01-2019 zoster vaccine recombinant Earl Shepherd MD Work Phone: [facility] 07-11-2019 influenza (HD-IIV4) vaccine, age 65+ yr, high dose, quadrivalent, PF (FLUZONE HIGH-DOSE) Felipe Carranza RN [facility] 05-03-2019 zoster vaccine recombinant Earl Shepherd MD Work Phone: [facility] 07-06-2018 influenza, seasonal, injectable Earl Shepherd MD Work Phone: [facility] 06-30-2017 influenza, injectabl e, quadrivalent, contains preservative Earl Shepherd MD Work Phone: [facility] 07-03-2016 influenza, injectabl e, quadrivalent, contains preservative Earl Shepherd MD Work Phone: [facility] 07-10-2014 influenza virus vacc ine, whole virus Earl Shepherd MD Work Phone: [facility] 07-23-2013 influenza, seasonal, injectable Earl Shepherd MD Work Phone: [facility] 06-11-2012 influenza, seasonal, injectable Earl Shepherd MD Work Phone: [facility] 10-01-2008 tetanus toxoid, redu sana diphtheria toxoid, and acellular pertussis vaccine, adsorbed Earl Shepherd MD Work Phone: [facility] 10-01-2004 pneumococcal polysaccharide vaccine, 23 valent Earl Shepherd MD Work Phone: [facility] 10-01-1996 pneumococcal polysaccharide vaccine, 23 valent Earl Shepherd MD Work Phone: [facility] Payers Date Payer Category Payer Self-pay 2023 Medicare (Managed Care) [employer]en [employer] HMO [id number] 2019 Medicare [employer] [id number] 2019-Present [phone] [address] [place] [address] Medicare [id number] 2017 Unknown [id number] 2017 Unknown 2015 Medicare [id number] Unknown [id number] Unknown [id number] Unknown [id number] Unknown [id number] Unknown [id number] Social History Date Type Detail Facility Start: 10-15-2014 End: 01-24-2023 Tobacco smoking status NHIS Never smoked tobacco [facility] Start: 10-15-2014 End: 01-24-2023 Tobacco use and exposure Smokeless tobacco non-user [facility] Start: 11-09-2021 End: 06-11-2025 Alcohol intake Current drinker of alcohol (finding) [facility] Start: 03-26-2021 End: 12-08-2022 History SDOH Alcohol Frequency 1 [facility] Start: 03-01-2016 History SDOH Alcohol Comment Rarely [facility] Start: 03-26-2021 End: 12-08-2022 History SDOH Social Connections Phone 5 [facility] Start: 03-26-2021 End: 12-08-2022 History SDOH Social Connections Get Together 2 [facility] Start: 03-26-2021 End: 12-08-2022 History SDOH Social Connections Living 3 [facility] Start: 03-26-2021 End: 12-08-2022 History SDOH Physical Activity DPW 0 [facility] Start: 03-26-2021 Education 12 [facility] Start: 1955 Sex Assigned At Not on file [facility] Start: 07-28-2022 End: 08-07-2022 Exposure to SARS-CoV-2 (event) Not sure [facility] Start: 12-08-2022 History SDOH Financial 4 [facility] Start: 12-07-2022 End: 06-13-2023 History of Social function [facility] Start: 12-07-2022 End: 06-13-2023 Social connection and isolation panel [facility] Do you belong to any clubs or organizations such as episcopalian groups, unions, fraternal or athletic groups, or school groups? No [facility] Are you now , , , , never or living with a partner? [facility] How often to you hav e a drink containing alcohol? Monthly or less [facility] Start: 09-01-2012 How many standard drinks containing alcohol do you have on a typical day? Patient does not drink [facility] How often do you hav e 6 or more drinks on 1 occasion? Never [facility] How hard is it for y ou to pay for the very basics like food, housing, medical care, and heating Not very hard [facility] Do you feel stress - tense, restless, nervous, or anxious, or unable to sleep at night because your mind is troubled all the time - these days [OSQ] Very much [facility] (I/We) worried wheth er (my/our) food would run out before (I/we) got money to buy more. Never true [facility] How hard is it for y ou to pay for the very basics like food, housing, medical care, and heating Somewhat hard [facility] Do you feel stress - tense, restless, nervous, or anxious, or unable to sleep at night because your mind is troubled all the time - these days [OSQ] To some extent [facility] Do you feel stress - tense, restless, nervous, or anxious, or unable to sleep at night because your mind is troubled all the time - these days [OSQ] Rather much [facility] Start: 01-03-2021 None None [facility] Start: 05-14-2020 Spouse/ Significant Other Spouse/ Significant Other [facility] Start: 01-21-2021 Non-smoker Non-smoker [facility] Start: 12-21-2024 Sex Female (finding) [facility] Start: 1955 Sex Assigned At Female [facility] Medical Equipment Procedure Code Equipment Code Equipment Origin al Text Equipment Identifier Dates Cystoscopy, with retrograde pyelogram, ureteroscopy, laser procedure, and stent inser STENT,URETERAL PIGTAIL [id number] FDA Start: 01-25-2021 Cystoscopy, with retrograde pyelogram, ureteroscopy, laser procedure, and stent inser STENT,URETERAL PIGTAIL [id number] FDA Start: 01-25-2021 Cystoscopic insertion of stent STENT,URETERAL PIGTAIL [id number] FDA Start: 01-04-2021 Cystoscopic insertion of stent STENT,URETERAL PIGTAIL [id number] FDA Start: 01-04-2021 Stent Innova 6mm 150mm 130cm Vascular Self Expand Radiopaque Hybrid Cell - [id number] Start: 11-04-2019 [id number], [id number], [id number], [id number], [id number] Start: 09-02-2020 End: 01-11-2024 Comment on above: Test blood sugar(s) 3 to 4 times daily. Dx: Other DM Code E11.51 Insulin: Yes One touch or Accucheck Use one needle per d ose. 5 per day. Test blood sugar(s) 3 to 4 times daily. Dx: Other DM Code E11.51 Insulin: Yes Test blood sugar(s) 3 to 4 times daily. Dx: Other DM Code E11.51 Insulin: Yes One touch or Accucheck strips or strips covered by her insurance. Device Angio-Sea l Vip 6fr .035in Collagen 70cm Closure Valuelink Guidewire - [id number] Start: 10-10-2024 Goals Date Patient Goal Desired Activity /State Personal health goal Comment on above: Formatting of this n ote might be different from the original. Patient has the following Chronic Kidney Disease goals: Two PCP visits annually, Nephrology visit annually, and Renal panel twice annually Education provided and reviewed with patient - sent on 02/22/23 CKD LAI Education - CKD (ALL) Patient will meet these goals by: 02-23-24 (describe interventions done by PCC) Formatting of this n ote might be different from the original. Patient has the following general goals: Two PCP visits annually Patient Stated goal: To become more Independent. Patient is trying to use the prosthesis more and wheelchair less. Patient will meet these goals by 02-23-24 (describe interventions done by PCC) Formatting of this n ote might be different from the original. Patient has the following Chronic Kidney Disease goals: Two PCP visits annually, Nephrology visit annually, and Renal panel twice annually Education provided and reviewed with patient - sent on 02/22/23 CKD LAI Education - CKD (ALL) Patient will meet these goals by: 02-23-24 (describe interventions done by PCC) Instructed on adequate hydration. Francisca Nelson RN July 18, 2023 Personal health goal Comment on above: Formatting of this n ote might be different from the original. Patient has the following High Blood Pressure/Hypertension Goals: Two PCP Visits annually HTN Education given and reviewed with patient --sent on 03/21/23 Checking your Blood Pressure at Home Patient will meet these goals by (describe interventions done by PCC) Formatting of this n ote might be different from the original. Patient has the following High Blood Pressure/Hypertension Goals: Two PCP Visits annually HTN Education given and reviewed with patient --sent on 03/21/23 Checking your Blood Pressure at Home Patient will meet these goals by (describe interventions done by PCC) Personal health goal Comment on above: Formatting of this n ote might be different from the original. This patient has the following Diabetes Health Maintenance goals: HBA1C drawn in last 10 months, Annual PCP visit, HBA1C < 8, Diabetic yearly eye screening, Diabetic foot exam, Medication Adherence, Consult to Diabetes education., and If Hba1c >= 8 referral to pharmacy This patient has the following education goals: Diet Modification: Plate Method, Diet Modification: Added Sugars in Drinks, Blood Sugar Monitoring: How to, Blood Sugar Monitoring: Importance of, Signs and Symptoms of low blood sugar/how to manage low blood sugar , Medication Compliance, and Understanding Medication Patient will meet these goals by: 09/30/24 (describe interventions done by PCC) Formatting of this n ote is different from the original. This patient has the following Diabetes Health Maintenance goals: HBA1C drawn in last 10 months, Annual PCP visit, HBA1C < 8, Diabetic yearly eye screening, Diabetic foot exam, Medication Adherence, Consult to Diabetes education., and If Hba1c >= 8 referral to pharmacy This patient has the following education goals: Diet Modification: Plate Method, Diet Modification: Added Sugars in Drinks, Blood Sugar Monitoring: How to, Blood Sugar Monitoring: Importance of, Signs and Symptoms of low blood sugar/how to manage low blood sugar , Medication Compliance, and Understanding Medication Patient will meet these goals by: 09/30/24 (describe interventions done by PCC) Hemoglobin A1C (%) Date Value 12/07/2022 5.7 05/09/2021 5.4 Personal health goal Personal health goal Comment on above: Formatting of this n ote might be different from the original. Patient has the following general goals: Two PCP visits annually Patient Stated goal: to lose weight and get better DM control Patient will meet these goals by 09/30/24 (describe interventions done by PCC) Comment on above: Formatting of this n ote might be different from the original. 11/19/20 Pt stated Improved Health and physical functioning Comment on above: Formatting of this n ote might be different from the original. Improved Health and physical functioning, prevent falls Comment on above: Formatting of this n ote might be different from the original. Strengthen upper body Comment on above: Formatting of this n ote might be different from the original. Patient has the following Chronic Kidney Disease goals: Two PCP visits annually, Nephrology visit annually, and Renal panel twice annually Education provided and reviewed with patient - sent on 02/22/23 CKD LAI Education - CKD (ALL) Patient will meet these goals by: 02-23-24 (describe interventions done by PCC) Comment on above: Formatting of this n ote might be different from the original. Patient has the following general goals: Two PCP visits annually Patient Stated goal: To become more Independent. Patient is trying to use the prosthesis more and wheelchair less. Patient will meet these goals by 02-23-24 (describe interventions done by PCC) Comment on above: Formatting of this n ote might be different from the original. Patient has the following High Blood Pressure/Hypertension Goals: Two PCP Visits annually HTN Education given and reviewed with patient --sent on 03/21/23 Checking your Blood Pressure at Home Patient will meet these goals by (describe interventions done by PCC) Functional Status Date Assessment Result Facility 12-17-2024 Total score [AUDIT-C] 0 12/18/19 25 9:28 AM Abimbola Corcoran LPN [facility] 12-17-2024 How often to you hav e a drink containing alcohol? Never 12/17/2024 9:28 AM Abimbola Corcoran LPN Never [facility] 12-17-2024 Functional status Patient does n ot drink 12/17/2024 9:28 AM Abimbola Corcoran LPN Patient does not drink [facility] 12-17-2024 How often do you hav e 6 or more drinks on 1 occasion? Never 12/17/2024 9:28 AM Abimbola Corcoran LPN Never [facility] 07-24-2020 Are you deaf, or do you have serious difficulty hearing No 07/24/2020 2:31 PM Brianna Sanchez RN No [facility] 07-24-2020 Are you blind, or do you have serious difficulty seeing, even when wearing glasses No 07/24/2020 2:31 PM Brianna Sanchez RN No [facility] 07-24-2020 Do you have serious difficulty walking or climbing stairs Yes 07/24/2020 2:31 PM Brianna Sanchez, CARMELO Yes [facility] 07-24-2020 Do you have difficul ty dressing or bathing No 07/24/2020 2:31 PM EDT Brianna Lorenzo, CARMELO No [facility] 07-24-2020 Because of a physica l, mental, or emotional condition, do you have difficulty doing errands alone such as visiting a physician's office or shopping Yes 07/24/2020 2:31 PM EDT Brianna Lorenzo, RN Yes [facility] Mental Status Date Assessment Result Facility 07-24-2020 Because of a physica l, mental, or emotional condition, do you have serious difficulty concentrating, remembering, or making decisions No 07/24/2020 2:31 PM EDT Brianna Lorenzo, CARMELO No [facility] Clinical Notes 06-08-2020 to 06-11-2025 Odin Dobbins MD - 06/11/2025 1:09 PM EDTPatient InstructionsNichelle Villatoro APRN.[employer] - 06/02/2025 10:00 AM EDTTelephone Encounter - Nichelle Villatoro APRN.[employer] - 05/14/2025 4:41 PM EDT Note Date & Type Note Facility 06-11-2025 History of Present illness Narrative Images from the original note were not included. Surgery/Procedure Date: 10/10/2024 Surgeon(s)/Proceduralist(s) and Tubular Stock Glass Bulb Machine Former(s): Surgeons and Role: * Odin Dobbins MD - Primary INTERVENTIONAL PROCEDURE: Ultrasound-guided left common femoral access Aorta and pelvic angiogram with CO2, radiographic interpretation Right lower extremity angiogram with CO2, radiographic interpretation Balloon angioplasty of right Mid popliteal artery with 6x60 [facility] ESTABLISHED CLINIC VISIT Miriam Thomas [id number] HISTORY OF PRESENT ILLNESS: Ms. Thomas is a 70 year old female seen in clinic today for follow up for PAD 8 months status post right lower extremity angiogram with mid popliteal DCB. Preoperative toe pressure was 25 normal TBI and waveforms on PVR today with a toe pressure of 152 mmHg. No new complaints at this time. Vascular health status: Antiplatelet / Anticoagulation: ASA 81 mg and Clopidogrel (Plavix) 75 mg Statin or PCSK9i: atorvastatin Past Vascular Surgeries: Recent Surgeries this specialty 10/10/2024 (8mo) ANGIOGRAM EXTREMITY UNILATERAL RADIOLOGICAL (Right) Odin Dobbins MD - Posted 07/20/2020 (4yr) AMPUTATION BELOW KNEE EXTREMITY LOWER (Left) Stacy Salomon; Livier Garza (Res); Jeanmarie Senior (Res) - Posted 11/04/2019 (5yr) EVACUATION CLOT ARTERIAL WITH INCISION LOWER EXTREMITY (Left), EMBOLECTOMY AORTOILIAC ARTERY VIA LEG INCISION (Left), REVASC ENDOVASC PERCUT FEM/POP ART W/TRANS STENT PLAC T W/ANGIO/W/IN THE SAME VESSEL WHEN PERFORM (Left), TRANSCATHETER THERAPY ARTERIAL INFUSION FOR THROMBOLYSIS OTHER THAN CORONARY W/ RADIOLOGICAL SUPERVISION/INTERPRETATION INITIAL TREATMENT DAY (Left), ANGIOGRAM EXTREMITY BILATERAL RADIOLOGICAL (Left), AORTOGRAM ABDOMINAL (Left) Mart Zavaleta - Posted MEDICATIONS: gabapentin (NEURONTIN) 400 mg capsule Take 2 capsules by mouth every afternoon AND 2 capsules daily at bedtime. Do all this for 180 days. hydrALAZINE (APRESOLINE) 50 mg tablet Take 1 tablet by mouth two times a day. Hold for SBP less than 120mm HG Blood-Glucose Sensor (Planspot G7 SENSOR) jackson Apply new sensor every ten (10) days. nystatin (MYCOSTATIN) powder Apply 1 application to affected area two times a day as needed. For prevention nitroglycerin sublingual (NITROQUICK) 0.4 mg SL tablet Dissolve 1 tablet under the tongue as needed. As directed acyclovir (ZOVIRAX) 400 mg tablet Take 1 tablet by mouth two times a day. atorvastatin (LIPITOR) 40 mg tablet Take 1 tablet by mouth daily at bedtime. For cholesterol. buPROPion XL (WELLBUTRIN XL) 150 mg 24 hr tablet Take 1 tablet by mouth once daily. carvedilol (COREG) 6.25 mg tablet Take 1 tablet by mouth two times a day with meals. escitalopram oxalate (LEXAPRO) 20 mg tablet Take 1 tablet by mouth once daily. pantoprazole DR (PROTONIX) 40 mg tablet Take 1 tablet by mouth once daily. tamsulosin (FLOMAX) 0.4 mg Take 2 capsules by mouth once daily. ondansetron (ZOFRAN) 4 mg tablet Take 1 tablet by mouth every 8 hours as needed for nausea/vomiting. Saccharomyces boulardii (FLORASTOR) 250 mg capsule Take 1 capsule by mouth two times a day. albuterol HFA (PROVENTIL HFA) 90 mcg/actuation inhaler Inhale 1-2 Puffs as instructed four times a day as needed for wheezing/shortness of breath. fluticasone (FLONASE) 50 mcg/actuation nasal spray Use 2 Sprays in each nostril once daily. Rinse mouth after use. dulaglutide (TRULICITY) 4.5 mg/0.5 mL pen injector Inject 4.5 mg subcutaneously one time a week. Gets through [facility]. insulin glargine 100 unit/mL (3 mL) Inject 26 Units subcutaneously every morning. (Basaglar) Patient assistance medication. insulin lispro (HUMALOG KWIKPEN) 100 unit/mL Inject 8 units with breakfast and 4 units with evening meal as directed. Patient assistance medication. ciclopirox (LOPROX) 0.77 % cream Apply to affected area two times a day. For 2 to 4 weeks till rash resolves. May treat recurrences for rash under abdominal pannus blood sugar diagnostic (BLOOD GLUCOSE TEST) test strip Test blood sugar(s) 3 to 4 times daily. Dx: Other DM Code E11.51 Insulin: Yes One touch or Accucheck strips or strips covered by her insurance. Lancets Test blood sugar(s) 3 to 4 times daily. Dx: Other DM Code E11.51 Insulin: Yes clobetasol (TEMOVATE) 0.05 % ointment Apply nightly to affected area for 8-12 weeks, then 1-3x weekly for maintenance B complex w-C no.20/folic acid (B COMPLEX WITH C 20-FOLIC ACID ORAL) Take 1 tablet by mouth once daily. Magnesium Oxide 500 mg tab Take 1 tablet by mouth once daily. For constipation Blood-Glucose Meter,Continuous (DEXCOM G7 ENVELOPE SEALER) misc Use to check blood sugar at least four (4) times daily. insulin needles, DISPOSABLE, (PEN NEEDLE) 31 gauge x 5/16 Use one needle per dose. 5 per day. bacitracin zinc 500 unit/gram ointment Apply to affected area twice daily. As directed for affected area till healed cetirizine (ZYRTEC) 10 mg tablet Take 1 tablet by mouth once daily as needed. aspirin, enteric coated (ASPIRIN, ENTERIC COATED) 81 mg EC tablet Take 1 tablet by mouth once daily. cyanocobalamin, vitamin B-12, 5,000 mcg subl Dissolve under the tongue once daily. ascorbic acid, vitamin C, (VITAMIN C) 500 mg tablet Take 1,000 mg by mouth once daily. polyethylene glycol 3350 (MIRALAX) 17 gram/dose powder Take 17 g by mouth as directed. clopidogrel (PLAVIX) 75 mg tablet Take 1 tablet by mouth once daily. SOCIAL HISTORY: SOCIAL HISTORY[1] PAST MEDICAL HISTORY: PAST MEDICAL HISTORY Diagnosis Date Anxiety Arthritis Depression MARITZA exposure in utero Diabetes mellitus ([facility]) 1986 Diabetic neuropathy ([facility]) Gangrene ([facility]) Heart attack ([facility]) [address] [facility] Herniated disc Hypertension Muscular deconditioning PVD (peripheral vascular disease) 10/2019 S/P BKA (below knee amputation) unilateral, left ([facility]) Sleep apnea cpap Snoring Stroke ([facility]) 11/2004 and 05/2005 x 2, right sided weakness PAST SURGICAL HISTORY: PAST SURGICAL HISTORY Procedure Laterality Date AMPUTATION OF LOWER LEG Left 07/20/2020 L BKA ANESTH,BRACHIAL/FEMORAL ARTERIOGRAM Left 11/04/2019 Left femoral arteriogram with stenting of left superficial femoral artery. Attempted left popliteal artery thromboembolectomy. Left anterior tibial thromboembolectomy @ [facility] by Dr. Zavaleta ANGIO ABDOMINAL AORTA LOW EXTR 10/10/2024 1. Aorta and pelvic angiogram with CO2, radiographic interpretation 2. Right lower extremity angiogram with CO2, radiographic interpretation 3. Balloon angioplasty of right Mid popliteal artery with 6x60 IN.PACT AORTOGRAM AND LEG RUNOFF 11/04/2019 1. Abdominal aortogram with bilateral selective lower extremity carbon dioxide runoff @ [facility] by Dr Zavaleta DELIVERY ONLY 1980, 1983, 1985 , low transverse, x 3 COLONOSCOPY FLX DX W/COLLJ SPEC WHEN PFRMD 02/17/2016 Colonoscopy (MAC) ESOPHAGOGASTRODUODENOSCOPY TRANSORAL DIAGNOSTIC 11/26/2017 EGD ESOPHAGOGASTRODUODENOSCOPY TRANSORAL DIAGNOSTIC 01/14/2018 EGD PAST SURGICAL HISTORY OF last one in 2006 D&C, multiple x4 PAST SURGICAL HISTORY OF Left 2000 ganglion cyst removed left wrist PAST SURGICAL HISTORY OF Bilateral 07/2013 cataracts TRANSMETATARSAL AMPUTATION/O&P Left 12/12/2019 Transmetatarsal amputation with tendoachilles lengthening left lower extremity ALLERGIES: ALLERGIES Allergen Reactions Meloxicam GI Upset Sulfa (Sulfonamide * Swelling Facial swelling, shortness of breath. Targeted ROS Comprehensive system review of systems did not reveal any pertinent positives or negatives except per HPI PHYSICAL EXAM: Focused Physical Exam: BP 146/67 Pulse 75 SpO2 95% General: WDWN in NAD Pulmonary: Non-labored on RA Coronary: Regular rate, no CAMERON or JVD Extremities: Normal range of motion Vascular: Biphasic right popliteal PT, palpable DP DIAGNOSTIC TESTS REVIEWED FOR TODAY'S VISIT: Most recent labs and imaging results IMAGING RESULTS: 06/11/2025 PVR 11/12/2024 Arterial duplex and PVR ASSESSMENT AND PLAN: Miriam Thomas is a 70 year old female seen in follow up for PAD with R digit wound. Normal TBI on PVR today. No wound or rest pain. Palpable DP pulse. We discussed the options for management and all questions answered, Ms. Thomas reflected understanding and agreement to the plan as outlined below. - Continue aspirin 81 mg daily indefinitely as well as high dose statin - Continue cardiovascular risk factor modification with blood pressure control and asa/statin therapy as tolerated at the direction of Earl Shepherd MD - Follow up in 1 year with right lower extremity arterial duplex and PVR, sooner if symptoms develop Odin Dobbins MD Vascular Surgery Staff Medical Decision Making: Problems: Low: Stable chronic illness Data: Unique test(s) ordered: 2 Risk: Moderate: Drug management Medical Decision Making Level: 3 - Low This note may have been partially generated using the Miew voice recognition system as well as artificial intelligence technology. While every effort was made to correct voice recognition errors, kindly be aware that some errors may occasionally occur. [1] Social History Tobacco Use Smoking status: Never Smokeless tobacco: Never Vaping Use Vaping status: Never Used Substance Use Topics Alcohol use: Yes Comment: Rarely Drug use: No documented in this encounter [facility] 06-02-2025 Instructions Nichelle Villatoro APRN.[employer] - 06/02/2025 10:27 AM EDT - Continue taking Plavix and aspirin (dual antiplatelet therapy) through June, completing six months of therapy as prescribed by your vascular surgeon at [facility] in [place]. - After finishing Plavix, stay on aspirin indefinitely as recommended. - Keep taking your high-dose atorvastatin (cholesterol medicine) every day. - Attend your follow-up visit with Dr. Dobbins on June 11 at [facility] in [place] to review your progress and next steps. - Blood was drawn today for A1c and cholesterol checks (non-fasting); we will review these results at your next appointment. - Consider getting your annual flu shot at a pharmacy or clinic--Medicare usually covers it. documented in this encounter [facility] 06-02-2025 History of Present illness Narrative SUBJECTIVE: RSV Vaccine(1 - Risk 60-74 years 1-dose series) Never done DTaP,Tdap,Td Vaccine(2 - Td or Tdap) due on 10/01/2018 Diabetic Foot Exam due on 06/13/2024 HbA1C due on 12/11/2024 Dilated Retinal Exam due on 05/21/2025 Influenza Vaccine(1) due on 06/01/2025 LDL Cholesterol due on 06/13/2025 Mammogram Screening due on 09/05/2025 HPI Miriam Thomas is a 70 year old female. 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 ([facility]) Recurrent Major Depression in Partial Remission Functional Dyspepsia Gastroesophageal Reflux Disease Diabetic Gastroparesis ([facility]) Lichen Sclerosus Type 2 Diabetes Mellitus With Diabetic Peripheral Angiopathy and Gangrene, With Long-Term Current Use of Insulin ([facility]) Obesity, Class I, Bmi 30-34.9 Leukocytosis Type 2 Diabetes Mellitus With Stage 3b Chronic Kidney Disease, With Long-Term Current Use of Insulin ([facility]) Hx of Bka, Left ([facility]) Urinary Retention Muscular Deconditioning Moderate Episode of Recurrent Major Depressive Disorder ([facility]) Hypertensive Ckd (Chronic Kidney Disease) Jose (Obstructive Sleep Apnea) Class 2 Severe Obesity Due to Excess Calories With Serious Comorbidity and Body Mass Index (Bmi) of 36.0 to 36.9 in Adult ([facility]) The patient is a 70-year-old female with chronic kidney disease, depression, and status post left lower extremity amputation, presenting for routine follow-up and medication management. Angioplasty: - Miriam Thomas underwent angioplasty with balloon angioplasty performed by Dr. Dobbins at [facility] in [place]. - Currently on dual antiplatelet therapy with Plavix and aspirin, as well as atorvastatin. - Previously on Eliquis, switched to Plavix post-procedure. - Advised to continue Plavix for 6 months and aspirin indefinitely. - Follow-up appointment with Dr. Dobbins scheduled for June 11. Depression: - Miriam reports improvement in depressive symptoms, stating depression is kind of lifted. Amputation: - Miriam has a history of leg amputation approximately 5 years ago. She has done well with home health care PT and OT, feeling well. Patient's last HgA1C was Hemoglobin A1C (%) Date Value 06/13/2024 6.1 12/11/2023 6.1 05/09/2021 5.4 06/09/2020 6.3 ) Last 14 Encounter BP Readings: Date: BP: 06/02/2025 130/58 03/19/2025 137/71 01/07/2025 130/58 12/05/2024 118/52 11/03/2024 118/70 10/27/2024 110/66 10/23/2024 102/67 10/09/2024 132/66 09/30/2024 159/70 09/29/2024 122/62 06/13/2024 157/70 04/03/2024 146/68 03/17/2024 108/58 06/13/2023 130/54 Hyperlipidemia. Ms. Thomas reports doing well on current therapy. Her most recent lipid panels are: Cholesterol, Total (mg/dL) Date Value 12/11/2023 157 12/07/2022 151 09/20/2020 145 05/31/2019 198 Total Cholesterol, Nonfasting (mg/dL) Date Value 06/13/2024 153 HDL Cholesterol (mg/dL) Date Value 12/11/2023 55 12/07/2022 44 09/20/2020 51 05/31/2019 54 HDL Cholesterol, Nonfasting (mg/dL) Date Value 06/13/2024 48 LDL Cholesterol, Calculated (mg/dL) Date Value 12/11/2023 78 12/07/2022 83 09/20/2020 71 05/31/2019 91 LDL Cholesterol Calculated, Nonfasting (mg/dL) Date Value 06/13/2024 72 Triglyceride (mg/dL) Date Value 12/11/2023 119 12/07/2022 118 09/20/2020 114 05/31/2019 263 Triglycerides, Nonfasting (mg/dL) Date Value 06/13/2024 167 ROS Objective BP 130/58 Pulse 75 Resp 16 SpO2 97% Physical Exam Vitals and nursing note reviewed. Constitutional: Appearance: Normal appearance. HENT: Head: Normocephalic and atraumatic. Right Ear: Tympanic membrane and ear canal normal. Left Ear: Ear canal normal. Mouth/Throat: Lips: [place]. Mouth: Mucous membranes are moist. Pharynx: Oropharynx is clear. Tonsils: No tonsillar exudate. Eyes: Conjunctiva/sclera: Conjunctivae normal. Cardiovascular: Rate and Rhythm: Normal rate and regular rhythm. Heart sounds: Normal heart sounds. Pulmonary: Effort: Pulmonary effort is normal. Breath sounds: Normal breath sounds. Skin: General: Skin is warm and dry. Neurological: General: No focal deficit present. Mental Status: She is alert and oriented to person, place, and time. ALLERGIES Allergen Reactions Meloxicam GI Upset Sulfa (Sulfonamide * Swelling Facial swelling, shortness of breath. Medications gabapentin (NEURONTIN) 400 mg capsule Take 2 capsules by mouth every afternoon AND 2 capsules daily at bedtime. Do all this for 180 days. hydrALAZINE (APRESOLINE) 50 mg tablet Take 1 tablet by mouth two times a day. Hold for SBP less than 120mm HG Blood-Glucose Sensor (DEXCOM G7 SENSOR) jackson Apply new sensor every ten (10) days. nystatin (MYCOSTATIN) powder Apply 1 application to affected area two times a day as needed. For prevention nitroglycerin sublingual (NITROQUICK) 0.4 mg SL tablet Dissolve 1 tablet under the tongue as needed. As directed acyclovir (ZOVIRAX) 400 mg tablet Take 1 tablet by mouth two times a day. atorvastatin (LIPITOR) 40 mg tablet Take 1 tablet by mouth daily at bedtime. For cholesterol. buPROPion XL (WELLBUTRIN XL) 150 mg 24 hr tablet Take 1 tablet by mouth once daily. carvedilol (COREG) 6.25 mg tablet Take 1 tablet by mouth two times a day with meals. escitalopram oxalate (LEXAPRO) 20 mg tablet Take 1 tablet by mouth once daily. pantoprazole DR (PROTONIX) 40 mg tablet Take 1 tablet by mouth once daily. tamsulosin (FLOMAX) 0.4 mg Take 2 capsules by mouth once daily. ondansetron (ZOFRAN) 4 mg tablet Take 1 tablet by mouth every 8 hours as needed for nausea/vomiting. albuterol HFA (PROVENTIL HFA) 90 mcg/actuation inhaler Inhale 1-2 Puffs as instructed four times a day as needed for wheezing/shortness of breath. fluticasone (FLONASE) 50 mcg/actuation nasal spray Use 2 Sprays in each nostril once daily. Rinse mouth after use. dulaglutide (TRULICITY) 4.5 mg/0.5 mL pen injector Inject 4.5 mg subcutaneously one time a week. Gets through [facility]. insulin glargine 100 unit/mL (3 mL) Inject 26 Units subcutaneously every morning. (Basaglar) Patient assistance medication. insulin lispro (HUMALOG KWIKPEN) 100 unit/mL Inject 8 units with breakfast and 4 units with evening meal as directed. Patient assistance medication. ciclopirox (LOPROX) 0.77 % cream Apply to affected area two times a day. For 2 to 4 weeks till rash resolves. May treat recurrences for rash under abdominal pannus blood sugar diagnostic (BLOOD GLUCOSE TEST) test strip Test blood sugar(s) 3 to 4 times daily. Dx: Other DM Code E11.51 Insulin: Yes One touch or Accucheck strips or strips covered by her insurance. Lancets Test blood sugar(s) 3 to 4 times daily. Dx: Other DM Code E11.51 Insulin: Yes clobetasol (TEMOVATE) 0.05 % ointment Apply nightly to affected area for 8-12 weeks, then 1-3x weekly for maintenance B complex w-C no.20/folic acid (B COMPLEX WITH C 20-FOLIC ACID ORAL) Take 1 tablet by mouth once daily. Magnesium Oxide 500 mg tab Take 1 tablet by mouth once daily. For constipation Blood-Glucose Meter,Continuous (DEXCOM G7 ENVELOPE SEALER) misc Use to check blood sugar at least four (4) times daily. insulin needles, DISPOSABLE, (PEN NEEDLE) 31 gauge x 02/13 Use one needle per dose. 5 per day. bacitracin zinc 500 unit/gram ointment Apply to affected area twice daily. As directed for affected area till healed cetirizine (ZYRTEC) 10 mg tablet Take 1 tablet by mouth once daily as needed. aspirin, enteric coated (ASPIRIN, ENTERIC COATED) 81 mg EC tablet Take 1 tablet by mouth once daily. cyanocobalamin, vitamin B-12, 5,000 mcg subl Dissolve under the tongue once daily. ascorbic acid, vitamin C, (VITAMIN C) 500 mg tablet Take 1,000 mg by mouth once daily. polyethylene glycol 3350 (MIRALAX) 17 gram/dose powder Take 17 g by mouth as directed. clopidogrel (PLAVIX) 75 mg tablet Take 1 tablet by mouth once daily. Saccharomyces boulardii (FLORASTOR) 250 mg capsule Take 1 capsule by mouth two times a day. PAST MEDICAL HISTORY Diagnosis Date Anxiety Arthritis Depression MARITZA exposure in utero Diabetes mellitus (HCC) 1986 Diabetic neuropathy (HCC) Gangrene (HCC) Heart attack ([facility]) [address] Adalberto Power [place] Herniated disc Hypertension Muscular deconditioning PVD (peripheral vascular disease) 10/2019 S/P BKA (below knee amputation) unilateral, left (HCC) Sleep apnea cpap Snoring Stroke ([facility]) 11/2004 and 05/2005 x 2, right sided weakness Social History Tobacco Use Smoking status: Never Smokeless tobacco: Never Vaping Use Vaping status: Never Used Substance Use Topics Alcohol use: Yes Comment: Rarely Drug use: No Latest Ref Rng 12/11/2023 06/13/2024 10/10/2024 WBC 3.70 - 11.00 k/uL 9.99 8.70 RBC 3.90 - 5.20 m/uL 3.17 (L) 3.21 (L) Hemoglobin 11.5 - 15.5 g/dL 9.6 (L) 9.2 (L) Hematocrit 36.0 - 46.0 % 31.0 (L) 29.4 (L) MCV 80.0 - 100.0 fL 97.8 91.6 MCH 26.0 - 34.0 pg 30.3 28.7 MCHC 30.5 - 36.0 g/dL 31.0 31.3 RDW-CV 11.5 - 15.0 % 14.2 14.5 Platelet Count 150 - 400 k/uL 256 257 MPV 9.0 - 12.7 fL 10.5 10.4 Neut% % 65.1 Abs Neut (ANC) 1.45 - 7.50 k/uL 6.50 Lymph% % 22.1 Abs Lymph 1.00 - 4.00 k/uL 2.21 [place]% % 6.8 Abs [place] <0.87 k/uL 0.68 Eosin% % 5.1 Abs Eosin <0.46 k/uL 0.51 (H) Baso% % 0.4 Abs Baso <0.11 k/uL 0.04 Immature Gran % % 0.5 IMMATURE GRANS (ABS) <0.10 k/uL 0.05 NRBC /100 WBC 0.0 Absolute nRBC <0.01 k/uL <0.01 <0.01 DTYPE Auto Protein, Total 6.3 - 8.0 g/dL 6.8 7.0 Protein, Total 6.3 - 8.0 g/dL 7.0 Albumin 3.9 - 4.9 g/dL 4.1 4.4 Calcium 8.5 - 10.2 mg/dL 11.0 (H) 11.3 (H) 10.6 (H) Bilirubin, Total 0.2 - 1.3 mg/dL 0.2 0.2 Alkaline Phosphatase 34 - 123 U/L 83 100 AST 13 - 35 U/L 19 15 ALT 7 - 38 U/L 18 21 Glucose 74 - 99 mg/dL 133 (H) 125 (H) 148 (H) BUN 7 - 21 mg/dL 37 (H) 38 (H) 25 (H) Creatinine 0.58 - 0.96 mg/dL 1.68 (H) 1.78 (H) 1.61 (H) Sodium 136 - 144 mmol/L 142 143 140 Potassium 3.7 - 5.1 mmol/L 4.9 5.2 (H) 4.5 Chloride 98 - 107 mmol/L 106 (H) 107 106 CO2 22 - 30 mmol/L 25 24 23 Anion Gap 8 - 15 mmol/L 11 12 11 eGFR >=60 mL/min/1.73m 33 (L) 31 (L) 35 (L) Cholesterol, Total <200 mg/dL 157 Triglyceride <150 mg/dL 119 HDL Cholesterol >39 mg/dL 55 Non HDL Cholesterol <130 mg/dL 102 Fasting Time hrs 11 VLDL Cholesterol <30 mg/dL 24 TC:HDL Ratio <5.10 2.85 LDL Cholesterol <100 mg/dL 78 LDL:HDL Ratio <2.54 1.42 Albumin 3.43 - 5.41 g/dL 4.20 Alpha 1 Globulin 0.18 - 0.43 g/dL 0.35 Alpha 2 Globulin 0.42 - 0.98 g/dL 0.82 Beta Globulin 0.61 - 1.17 g/dL 0.79 Gamma Globulin 0.53 - 1.51 g/dL 0.83 Interpretation (Prot Electro) No definitive M protein is identified on protein electrophoresis. No definitive M protein is identified on protein electrophoresis. M-Protein Location -- M-Protein Concentration <=0.00 g/dL 0.00 SPE Staff Review Reviewed by Dr. Davy Agarwal MD Total Cholesterol, Nonfasting <200 mg/dL 153 Triglycerides, Nonfasting <150 mg/dL 167 (H) HDL Cholesterol, Nonfasting >39 mg/dL 48 LDL Cholesterol, Nonfasting <100 mg/dL 72 Non HDL Cholesterol, Nonfasting <130 mg/dL 105 VLDL Cholesterol, Nonfasting <30 mg/dL 33 (H) Total Chol/HDL Ratio, Nonfasting <5.10 mg/dL 3.19 LDL/HDL Ratio, Nonfasting <2.54 mg/dL 1.50 Albumin, Urine (Prot Electro) % 54.99 Alpha 1 Globulin, Urine % 5.55 Alpha 2 Globulin, Urine % 13.75 Beta Globulin, Urine % 13.37 Gamma Globulin, Urine % 12.34 Interpretation (Urine Electro) No definitive M protein is identified on protein electrophoresis. No definitive M protein is identified on protein electrophoresis. Interpretation Comment for Protein Electrophoresis The absence of M-protein on urine protein electrophoresis does not entirely exclude the presence of monoclonal gammopathy in urine. Monoclonal protein analysis (immunofixation), a more definitive test to exclude monoclonal gammopathy, may be requested on this specimen if clinically indicated. Staff Review (Urine Electro) Reviewed by Dr. Davy Agarwal MD Creatinine, Ur Random (UCRR) 20.0 - 300.0 mg/dL 63.7 Albumin, Urine Random mg/L 71.8 Albumin/Creat Ratio <30 mg/g 113 (H) Hemoglobin A1C 4.3 - 5.6 % 6.1 (H) 6.1 (H) Estimated Average Glucose mg/dL 128 128 Normalized Calcium 1.08 - 1.30 mmol/L 1.46 (H) Ionized Calcium 1.08 - 1.30 mmol/L 1.45 (H) Magnesium 1.7 - 2.3 mg/dL 2.4 (H) Free T4 0.9 - 1.7 ng/dL 1.2 Free T3 2.3 - 4.1 pg/mL 2.2 (L) Vitamin D 25 Hydroxy 31.0 - 80.0 ng/mL 51.0 PTH, Intact 15 - 65 pg/mL 151 (H) Phosphorus 2.7 - 4.8 mg/dL 3.1 Protein, Urine Random 0 - 20 mg/dL 12 Glucose, Point of Care 74 - 99 mg/dL 194 ! 1. Type 2 diabetes mellitus with stage 3b chronic kidney disease, with long-term current use of insulin ([facility]) (E11.22) - Order A1c and cholesterol labs today. 2. Screening for diabetic retinopathy (Z13.5) 3. Proliferative diabetic retinopathy associated with type 2 diabetes mellitus, macular edema presence unspecified, unspecified laterality ([facility]) (E11.3599) - is under regular ophthalmologic care. 4. Encounter for immunization (Z23) - Discussed flu vaccine, including rationale for annual updates based on global surveillance and strain prediction; reviewed typical efficacy range and timing of flu season. - Advised to consider flu vaccination, which is covered by Medicare; can be obtained at local pharmacy. - Reviewed additional infection prevention strategies: hand hygiene, use of hand farm machinery mechanic, and avoiding close contact with symptomatic individuals. 5. Encounter for screening mammogram for breast cancer (Z12.31) 6. Class 2 severe obesity due to excess calories with serious comorbidity and body mass index (BMI) of 36.0 to 36.9 in adult ([facility]) (E66.812) Endorse portion control, plant-based diet such as Mediterranean diet, and activity as tolerated. Nichelle Villatoro APRN.CNS Medical Decision Making: Problems: Moderate: 2+ stable chronic illnesses Data: Unique test result(s) reviewed: 3+ Unique test(s) ordered: 2 Risk: Low: Low risk from testing/treatment Medical Decision Making Level: 4 - Moderate documented in this encounter [facility] 06-02-2025 Note HNO ID: [id number] Author: NICHELLE VLILATORO APRN.[employer] Service: ? Author Type: Nurse Specialist Type: Progress Notes Filed: 06/02/2025 10:34 Note Text: SUBJECTIVE: RSV Vaccine(1 - Risk 60-74 years 1-dose series) Never done DTaP,Tdap,Td Vaccine(2 - Td or Tdap) due on 10/01/2018 Diabetic Foot Exam due on 06/13/2024 HbA1C due on 12/11/2024 Dilated Retinal Exam due on 05/21/2025 Influenza Vaccine(1) due on 06/01/2025 LDL Cholesterol due on 06/13/2025 Mammogram Screening due on 09/05/2025 HPI Miriam Thomas is a 70 year old female. 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 ([facility]) Recurrent Major Depression in Partial Remission Functional Dyspepsia Gastroesophageal Reflux Disease Diabetic Gastroparesis ([facility]) Lichen Sclerosus Type 2 Diabetes Mellitus With Diabetic Peripheral Angiopathy and Gangrene, With Long-Term Current Use of Insulin ([facility]) Obesity, Class I, Bmi 30-34.9 Leukocytosis Type 2 Diabetes Mellitus With Stage 3b Chronic Kidney Disease, With Long-Term Current Use of Insulin ([facility]) Hx of Bka, Left ([facility]) Urinary Retention Muscular Deconditioning Moderate Episode of Recurrent Major Depressive Disorder ([facility]) Hypertensive Ckd (Chronic Kidney Disease) Jose (Obstructive Sleep Apnea) Class 2 Severe Obesity Due to Excess Calories With Serious Comorbidity and Body Mass Index (Bmi) of 36.0 to 36.9 in Adult ([facility]) The patient is a 70-year-old female with chronic kidney disease, depression, and status post left lower extremity amputation, presenting for routine follow-up and medication management. Angioplasty: - Miriam Thomas underwent angioplasty with balloon angioplasty performed by Dr. Dobbins at [facility] in [place]. - Currently on dual antiplatelet therapy with Plavix and aspirin, as well as atorvastatin. - Previously on Eliquis, switched to Plavix post-procedure. - Advised to continue Plavix for 6 months and aspirin indefinitely. - Follow-up appointment with Dr. Dobbins scheduled for June 11. Depression: - Miriam reports improvement in depressive symptoms, stating depression is kind of lifted. Amputation: - Miriam has a history of leg amputation approximately 5 years ago. She has done well with home health care PT and OT, feeling well. Patient's last HgA1C was Hemoglobin A1C (%) Date Value 06/13/2024 6.1 12/11/2023 6.1 05/09/2021 5.4 06/09/2020 6.3 ) Last 14 Encounter BP Readings: Date: BP: 06/02/2025 130/58 03/19/2025 137/71 01/07/2025 130/58 12/05/2024 118/52 11/03/2024 118/70 10/27/2024 110/66 10/23/2024 102/67 10/09/2024 132/66 09/30/2024 159/70 09/29/2024 122/62 06/13/2024 157/70 04/03/2024 146/68 03/17/2024 108/58 06/13/2023 130/54 Hyperlipidemia. Ms. Thomas reports doing well on current therapy. Her most recent lipid panels are: Cholesterol, Total (mg/dL) Date Value 12/11/2023 157 12/07/2022 151 09/20/2020 145 05/31/2019 198 Total Cholesterol, Nonfasting (mg/dL) Date Value 06/13/2024 153 HDL Cholesterol (mg/dL) Date Value 12/11/2023 55 12/07/2022 44 09/20/2020 51 05/31/2019 54 HDL Cholesterol, Nonfasting (mg/dL) Date Value 06/13/2024 48 LDL Cholesterol, Calculated (mg/dL) Date Value 12/11/2023 78 12/07/2022 83 09/20/2020 71 05/31/2019 91 LDL Cholesterol Calculated, Nonfasting (mg/dL) Date Value 06/13/2024 72 Triglyceride (mg/dL) Date Value 12/11/2023 119 12/07/2022 118 09/20/2020 114 05/31/2019 263 Triglycerides, Nonfasting (mg/dL) Date Value 06/13/2024 167 ROS Objective BP 130/58 Pulse 75 Resp 16 SpO2 97% Physical Exam Vitals and nursing note reviewed. Constitutional: Appearance: Normal appearance. HENT: Head: Normocephalic and atraumatic. Right Ear: Tympanic membrane and ear canal normal. Left Ear: Ear canal normal. Mouth/Throat: Lips: [place]. Mouth: Mucous membranes are moist. Pharynx: Oropharynx is clear. Tonsils: No tonsillar exudate. Eyes: Conjunctiva/sclera: Conjunctivae normal. Cardiovascular: Rate and Rhythm: Normal rate and regular rhythm. Heart sounds: Normal heart sounds. Pulmonary: Effort: Pulmonary effort is normal. Breath sounds: Normal breath sounds. Skin: General: Skin is warm and dry. Neurological: General: No focal deficit present. Mental Status: She is alert and oriented to person, place, and time. ALLERGIES Allergen Reactions Meloxicam GI Upset Sulfa (Sulfonamide * Swelling Facial swelling, shortness of breath. Medica (more content not included)... [facility] 05-14-2025 Telephone encounter Note ok [facility] 05-14-2025 Miscellaneous Notes ok Patient wanting RX transferred to [facility]. Patient has been identified by name and date of : Yes Patient phones for refill(s): Requested Prescriptions Pending Prescriptions Disp Refills gabapentin (NEURONTIN) 400 mg capsule 360 capsule 1 Sig: Take 2 capsules by mouth every afternoon AND 2 capsules daily at bedtime. Do all this for 180 days. Date of last office visit in primary care: 03/19/2025 Date of next office visit in primary care: 06/02/2025 Please advise. Thank you. Didi Chawla LPN. Prescription Refill Information The patient has been identified by name and date of : Yes Caregiver verified no other encounters exist for this prescription request: Yes Caregiver confirmed with patient/requestor that no other refills are due, in the near future, with this provider at this time: Yes The last office visit in the department: 03/19/25 Does the patient have a future office visit with this provider/department: Yes Requested Prescriptions Pending Prescriptions Disp Refills gabapentin (NEURONTIN) 400 mg capsule 360 capsule 1 Sig: Take 2 capsules by mouth every afternoon AND 2 capsules daily at bedtime. Do all this for 180 days. Briseyda Santana May 14, 2025 11:51 AM documented in this encounter [facility] 05-14-2025 Telephone encounter Note Patient wanting RX transferred to [facility]. Patient has been identified by name and date of : Yes Patient phones for refill(s): Requested Prescriptions Pending Prescriptions Disp Refills gabapentin (NEURONTIN) 400 mg capsule 360 capsule 1 Sig: Take 2 capsules by mouth every afternoon AND 2 capsules daily at bedtime. Do all this for 180 days. Date of last office visit in primary care: 03/19/2025 Date of next office visit in primary care: 06/02/2025 Please advise. Thank you. Didi Chawla LPN. [facility] 05-14-2025 Telephone encounter Note Prescription Refill Information The patient has been identified by name and date of : Yes Caregiver verified no other encounters exist for this prescription request: Yes Caregiver confirmed with patient/requestor that no other refills are due, in the near future, with this provider at this time: Yes The last office visit in the department: 03/19/25 Does the patient have a future office visit with this provider/department: Yes Requested Prescriptions Pending Prescriptions Disp Refills gabapentin (NEURONTIN) 400 mg capsule 360 capsule 1 Sig: Take 2 capsules by mouth every afternoon AND 2 capsules daily at bedtime. Do all this for 180 days. Briseyda Santana May 14, 2025 11:51 AM [facility] 04-16-2025 Telephone encounter Note Patient has been identified by name and date of : Yes Patient phones for refill(s): Requested Prescriptions Pending Prescriptions Disp Refills Blood-Glucose Sensor (DEXCOM G7 SENSOR) jackson 9 each 3 Sig: Apply new sensor every ten (10) days. Date of last office visit in primary care: 03/19/2025 Date of next office visit in primary care: 06/02/2025 Please advise. Thank you. Didi Chawla LPN. [facility] 04-16-2025 Miscellaneous Notes Patient has been identified by name and date of : Yes Patient phones for refill(s): Requested Prescriptions Pending Prescriptions Disp Refills Blood-Glucose Sensor (DEXCOM G7 SENSOR) jackson 9 each 3 Sig: Apply new sensor every ten (10) days. Date of last office visit in primary care: 03/19/2025 Date of next office visit in primary care: 06/02/2025 Please advise. Thank you. Didi Chawla LPN. documented in this encounter [facility] 04-09-2025 Telephone encounter Note Sent the nystatin powder as was pended since no reply from HH regarding how much needed per month. Can update RX in the future if determine needs more per month The following approved medication requests have been transmitted electronically. Requested Prescriptions Signed Prescriptions Disp Refills acyclovir (ZOVIRAX) 400 mg tablet 60 tablet 3 Sig: Take 1 tablet by mouth two times a day. Authorizing Provider: EARL SHPEHERD atorvastatin (LIPITOR) 40 mg tablet 30 tablet 3 Sig: Take 1 tablet by mouth daily at bedtime. For cholesterol. Authorizing Provider: EARL SHEPHERD buPROPion XL (WELLBUTRIN XL) 150 mg 24 hr tablet 30 tablet 3 Sig: Take 1 tablet by mouth once daily. Authorizing Provider: EARL SHEPHERD carvedilol (COREG) 6.25 mg tablet 60 tablet 3 Sig: Take 1 tablet by mouth two times a day with meals. Authorizing Provider: EARL SHEPHERD clopidogrel (PLAVIX) 75 mg tablet 30 tablet 3 Sig: Take 1 tablet by mouth once daily. Authorizing Provider: EARL SHEPHERD escitalopram oxalate (LEXAPRO) 20 mg tablet 30 tablet 3 Sig: Take 1 tablet by mouth once daily. Authorizing Provider: EARL SHEPHERD nystatin (MYCOSTATIN) powder 60 g 3 Sig: Apply 1 application to affected area two times a day as needed. For prevention Authorizing Provider: EARL SHEPHERD pantoprazole DR (PROTONIX) 40 mg tablet 30 tablet 3 Sig: Take 1 tablet by mouth once daily. Authorizing Provider: EARL SHEPHERD tamsulosin (FLOMAX) 0.4 mg 60 capsule 3 Sig: Take 2 capsules by mouth once daily. Authorizing Provider: EARL SHEPHERD MD [facility] 04-09-2025 Miscellaneous Notes Sent the nystatin powder as was pended since no reply from regarding how much needed per month. Can update RX in the future if determine needs more per month The following approved medication requests have been transmitted electronically. Requested Prescriptions Signed Prescriptions Disp Refills acyclovir (ZOVIRAX) 400 mg tablet 60 tablet 3 Sig: Take 1 tablet by mouth two times a day. Authorizing Provider: EARL SHEPHERD atorvastatin (LIPITOR) 40 mg tablet 30 tablet 3 Sig: Take 1 tablet by mouth daily at bedtime. For cholesterol. Authorizing Provider: EARL SHEPHERD buPROPion XL (WELLBUTRIN XL) 150 mg 24 hr tablet 30 tablet 3 Sig: Take 1 tablet by mouth once daily. Authorizing Provider: EARL SHEPHERD carvedilol (COREG) 6.25 mg tablet 60 tablet 3 Sig: Take 1 tablet by mouth two times a day with meals. Authorizing Provider: EARL SHEPHERD clopidogrel (PLAVIX) 75 mg tablet 30 tablet 3 Sig: Take 1 tablet by mouth once daily. Authorizing Provider: EARL SHEPHERD escitalopram oxalate (LEXAPRO) 20 mg tablet 30 tablet 3 Sig: Take 1 tablet by mouth once daily. Authorizing Provider: EARL SHEPHERD nystatin (MYCOSTATIN) powder 60 g 3 Sig: Apply 1 application to affected area two times a day as needed. For prevention Authorizing Provider: EARL SHEPHERD pantoprazole DR (PROTONIX) 40 mg tablet 30 tablet 3 Sig: Take 1 tablet by mouth once daily. Authorizing Provider: EARL SHEPHERD tamsulosin (FLOMAX) 0.4 mg 60 capsule 3 Sig: Take 2 capsules by mouth once daily. Authorizing Provider: EARL SHEPHERD MD Attempted to contact patient. Call was answered but noted a lot of static and call was dropped during conversation. Message left asking for [facility] health nurse to return call. Amount for nystatin powder depends on how much she needs per week and/or month--how long dose current amount dispensed last? The following approved medication requests have been transmitted electronically. Requested Prescriptions Pending Prescriptions Disp Refills nystatin (MYCOSTATIN) powder 60 g 3 Sig: Apply 1 application to affected area two times a day as needed. For prevention Signed Prescriptions Disp Refills acyclovir (ZOVIRAX) 400 mg tablet 60 tablet 3 Sig: Take 1 tablet by mouth two times a day. Authorizing Provider: EARL SHEPHERD atorvastatin (LIPITOR) 40 mg tablet 30 tablet 3 Sig: Take 1 tablet by mouth daily at bedtime. For cholesterol. Authorizing Provider: EARL SHEPHERD buPROPion XL (WELLBUTRIN XL) 150 mg 24 hr tablet 30 tablet 3 Sig: Take 1 tablet by mouth once daily. Authorizing Provider: EARL SHEPHERD carvedilol (COREG) 6.25 mg tablet 60 tablet 3 Sig: Take 1 tablet by mouth two times a day with meals. Authorizing Provider: EARL SHEPHERD clopidogrel (PLAVIX) 75 mg tablet 30 tablet 3 Sig: Take 1 tablet by mouth once daily. Authorizing Provider: EARL SHEPHERD escitalopram oxalate (LEXAPRO) 20 mg tablet 30 tablet 3 Sig: Take 1 tablet by mouth once daily. Authorizing Provider: EARL SHEPHERD pantoprazole DR (PROTONIX) 40 mg tablet 30 tablet 3 Sig: Take 1 tablet by mouth once daily. Authorizing Provider: EARL SHEPHERD tamsulosin (FLOMAX) 0.4 mg 60 capsule 3 Sig: Take 2 capsules by mouth once daily. Authorizing Provider: EARL SHEPHERD MD Serina with [facility] calls to report they would like to get pt's meds that are not prn or insulin, synced. Serina is requesting orders to go to [facility]. Please review Nystatin powder order and change to a 30 day supply. Prescription Refill Information The patient has been identified by name and date of : Yes Caregiver verified no other encounters exist for this prescription request: Yes Caregiver confirmed with patient/requestor that no other refills are due, in the near future, with this provider at this time: Yes The last office visit in the department: 03/19/25 Does the patient have a future office visit with this provider/department: Yes 06/02/25 Requested Prescriptions Pending Prescriptions Disp Refills acyclovir (ZOVIRAX) 400 mg tablet 60 tablet 3 Sig: Take 1 tablet by mouth two times a day. atorvastatin (LIPITOR) 40 mg tablet 30 tablet 3 Sig: Take 1 tablet by mouth daily at bedtime. For cholesterol. buPROPion XL (WELLBUTRIN XL) 150 mg 24 hr tablet 30 tablet 3 Sig: Take 1 tablet by mouth once daily. carvedilol (COREG) 6.25 mg tablet 60 tablet 3 Sig: Take 1 tablet by mouth two times a day with meals. clopidogrel (PLAVIX) 75 mg tablet 30 tablet 3 Sig: Take 1 tablet by mouth once daily. escitalopram oxalate (LEXAPRO) 20 mg tablet 30 tablet 3 Sig: Take 1 tablet by mouth once daily. nystatin (MYCOSTATIN) powder 60 g 3 Sig: Apply 1 application to affected area two times a day as needed. For prevention pantoprazole DR (PROTONIX) 40 mg tablet 30 tablet 3 Sig: Take 1 tablet by mouth once daily. tamsulosin (FLOMAX) 0.4 mg 60 capsule 3 Sig: Take 2 capsules by mouth once daily. Justyna Stewart LPN March 30, 2025 3:28 PM documented in this encounter [facility] 03-31-2025 Telephone encounter Note Attempted to contact patient. Call was answered but noted a lot of static and call was dropped during conversation. Message left asking for Counts include [facility] beds at the [facility] nurse to return call. [facility] 03-30-2025 Telephone encounter Note Amount for nystatin powder depends on how much she needs per week and/or month--how long dose current amount dispensed last? The following approved medication requests have been transmitted electronically. Requested Prescriptions Pending Prescriptions Disp Refills nystatin (MYCOSTATIN) powder 60 g 3 Sig: Apply 1 application to affected area two times a day as needed. For prevention Signed Prescriptions Disp Refills acyclovir (ZOVIRAX) 400 mg tablet 60 tablet 3 Sig: Take 1 tablet by mouth two times a day. Authorizing Provider: EARL SHEPHERD atorvastatin (LIPITOR) 40 mg tablet 30 tablet 3 Sig: Take 1 tablet by mouth daily at bedtime. For cholesterol. Authorizing Provider: EARL SHEPHERD buPROPion XL (WELLBUTRIN XL) 150 mg 24 hr tablet 30 tablet 3 Sig: Take 1 tablet by mouth once daily. Authorizing Provider: EARL SHEPHERD carvedilol (COREG) 6.25 mg tablet 60 tablet 3 Sig: Take 1 tablet by mouth two times a day with meals. Authorizing Provider: EARL SHEPHERD clopidogrel (PLAVIX) 75 mg tablet 30 tablet 3 Sig: Take 1 tablet by mouth once daily. Authorizing Provider: EARL SHEPHERD escitalopram oxalate (LEXAPRO) 20 mg tablet 30 tablet 3 Sig: Take 1 tablet by mouth once daily. Authorizing Provider: EARL SHEPHERD pantoprazole DR (PROTONIX) 40 mg tablet 30 tablet 3 Sig: Take 1 tablet by mouth once daily. Authorizing Provider: ERAL SHEPHERD tamsulosin (FLOMAX) 0.4 mg 60 capsule 3 Sig: Take 2 capsules by mouth once daily. Authorizing Provider: EARL SHEPHERD MD [facility] 03-30-2025 Telephone encounter Note Serina with [facility] calls to report they would like to get pt's meds that are not prn or insulin, synced. Serina is requesting orders to go to [facility]. Please review Nystatin powder order and change to a 30 day supply. Prescription Refill Information The patient has been identified by name and date of : Yes Caregiver verified no other encounters exist for this prescription request: Yes Caregiver confirmed with patient/requestor that no other refills are due, in the near future, with this provider at this time: Yes The last office visit in the department: 03/19/25 Does the patient have a future office visit with this provider/department: Yes 06/02/25 Requested Prescriptions Pending Prescriptions Disp Refills acyclovir (ZOVIRAX) 400 mg tablet 60 tablet 3 Sig: Take 1 tablet by mouth two times a day. atorvastatin (LIPITOR) 40 mg tablet 30 tablet 3 Sig: Take 1 tablet by mouth daily at bedtime. For cholesterol. buPROPion XL (WELLBUTRIN XL) 150 mg 24 hr tablet 30 tablet 3 Sig: Take 1 tablet by mouth once daily. carvedilol (COREG) 6.25 mg tablet 60 tablet 3 Sig: Take 1 tablet by mouth two times a day with meals. clopidogrel (PLAVIX) 75 mg tablet 30 tablet 3 Sig: Take 1 tablet by mouth once daily. escitalopram oxalate (LEXAPRO) 20 mg tablet 30 tablet 3 Sig: Take 1 tablet by mouth once daily. nystatin (MYCOSTATIN) powder 60 g 3 Sig: Apply 1 application to affected area two times a day as needed. For prevention pantoprazole DR (PROTONIX) 40 mg tablet 30 tablet 3 Sig: Take 1 tablet by mouth once daily. tamsulosin (FLOMAX) 0.4 mg 60 capsule 3 Sig: Take 2 capsules by mouth once daily. Justyna Stewart LPN March 30, 2025 3:28 PM [facility] 03-30-2025 Telephone encounter Note Prescription Refill Information The patient has been identified by name and date of : Yes Caregiver verified no other encounters exist for this prescription request: Yes Caregiver confirmed with patient/requestor that no other refills are due, in the near future, with this provider at this time: Yes The last office visit in the department: 03/19/25 Does the patient have a future office visit with this provider/department: Yes Requested Prescriptions Pending Prescriptions Disp Refills nitroglycerin sublingual (NITROQUICK) 0.4 mg SL tablet 25 tablet 1 Sig: Dissolve 1 tablet under the tongue as needed. As directed Kayla Cardozo LPN March 30, 2025 1:49 PM [facility] 03-30-2025 Miscellaneous Notes Prescription Refill Information The patient has been identified by name and date of : Yes Caregiver verified no other encounters exist for this prescription request: Yes Caregiver confirmed with patient/requestor that no other refills are due, in the near future, with this provider at this time: Yes The last office visit in the department: 03/19/25 Does the patient have a future office visit with this provider/department: Yes Requested Prescriptions Pending Prescriptions Disp Refills nitroglycerin sublingual (NITROQUICK) 0.4 mg SL tablet 25 tablet 1 Sig: Dissolve 1 tablet under the tongue as needed. As directed Kayla Cardozo LPN March 30, 2025 1:49 PM documented in this encounter [facility] 03-26-2025 Telephone encounter Note Noted, [facility]. [facility] 03-26-2025 Miscellaneous Notes Noted, [facility]. Pushpa from [employer] calls and states that she visited patient today and opened skilled service for detention, PT, and OT. Pushpa added OT when she visited patient. No call back needed unless there are questions. Lizzie Mason RN documented in this encounter [facility] 03-26-2025 Telephone encounter Note Pushpa from [facility] calls and states that she visited patient today and opened skilled service for detention, PT, and OT. Pushpa added OT when she visited patient. No call back needed unless there are questions. Lizzie Mason RN [facility] 03-23-2025 Telephone encounter Note Sw connected with patient and noted that she would mail patient home care coordinator, [employer] [facility] Adult Resource Guide, and Care Patrol, [facility] information. Patient notes that she is looking at services to help with light meal prep and light housekeeping. Sw will mail info to patient home to make connection with different resources to find out about assistance options that would be beneficial. [facility] 03-23-2025 Miscellaneous Notes Faby connected with patient and noted that she would mail patient home care coordinator, [facility] Older Adult Resource Guide, and Care Patdina, [facility] information. Patient notes that she is looking at services to help with light meal prep and light housekeeping. Sw will mail info to patient home to make connection with different resources to find out about assistance options that would be beneficial. documented in this encounter [facility] 03-19-2025 Telephone encounter Note Referral sent to [facility] at fax number provided. [facility] 03-19-2025 Miscellaneous Notes Referral sent to [facility] at fax number provided. Please see below, send referral as noted Thank you for the referral of your patient to [facility]. At this time, we are at capacity and are unable to accept your patient. In order to help your patient receive quality home care, we have included reputable agencies that service this area: [facility] - , [place] [facility] - . Please contact this agency and they will work with your patient to arrange timely services. Thank you, TASHA Estrada 03/19/2025 11:50 AM documented in this encounter [facility] 03-19-2025 Telephone encounter Note Please see below, send referral as noted [facility] 03-19-2025 Telephone encounter Note Thank you for the referral of your patient to [facility]. At this time, we are at capacity and are unable to accept your patient. In order to help your patient receive quality home care, we have included reputable agencies that service this area: [facility] - , [place] [facility] - . Please contact this agency and they will work with your patient to arrange timely services. Thank you, TASHA Estrada 03/19/2025 11:50 AM [facility] 03-19-2025 Instructions Nichelle Villatoro APRN.CNS - 03/19/2025 10:00 AM EDT - Increase your gabapentin to two tablets in the morning and two tablets at bedtime; monitor for any increased drowsiness or other side effects and call our office in one week to report how you re tolerating it. - Expect a call from health care social worker Saundra Jhaveri within the next few days. [facility] Home care should call to arrange home care services, including light housekeeping, meal preparation, and assistance with filling your morning/evening pill organizer. - Arrange home-based physical therapy through the home health service to rebuild strength, improve transfers, and support ongoing prosthetic use. - Contact Maylin (your prosthetic provider) to schedule a follow-up appointment for adjustment of your leg prosthesis and management of phantom-limb pain. - Aim for about 64 ounces of fluid (water or other kidney-friendly beverages) each day to help support your kidney function. Will hold off on increasing bupropion for now. documented in this encounter [facility] 03-19-2025 Note HNO ID: [id number] Author: NICHELLE VILLATORO APRN.CNS Service: ? Author Type: Nurse Specialist Type: Progress Notes Filed: 03/19/2025 10:07 Note Text: SUBJECTIVE: RSV Vaccine(1 - Risk 60-74 years 1-dose series) Never done DTaP,Tdap,Td Vaccine(2 - Td or Tdap) due on 10/01/2018 Diabetic Foot Exam due on 06/13/2024 HbA1C due on 12/11/2024 Mammogram Screening due on 09/05/2025 HPI Miriam Thomas is a 70 year old female. 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 (Hcc) Recurrent Major Depression in Partial Remission Functional Dyspepsia Gastroesophageal Reflux Disease Diabetic Gastroparesis (Hcc) Lichen Sclerosus Type 2 Diabetes Mellitus With Diabetic Peripheral Angiopathy and Gangrene, With Long-Term Current Use of Insulin ([facility]) Obesity, Class I, Bmi 30-34.9 Leukocytosis Type 2 Diabetes Mellitus With Stage 3b Chronic Kidney Disease, With Long-Term Current Use of Insulin ([facility]) Hx of Bka, Left ([facility]) Urinary Retention Muscular Deconditioning Moderate Episode of Recurrent Major Depressive Disorder ([facility]) Hypertensive Ckd (Chronic Kidney Disease) Jose (Obstructive Sleep Apnea) Presents for a follow-up visit. Miriam Thomas is a 70-year-old female with a history of stage 4 CKD, DM, and depression, presenting for evaluation of home care needs and management of phantom limb pain. Home Care Needs: - Miriam requires assistance with meal preparation and light housekeeping. - , age 77 with heart disease function, currently provides most assistance, adversely affecting his health. - Difficulty ambulating due to unilateral leg amputation; uses a wheelchair. - Has a prosthetic leg but experiences significant pain and phantom limb pain when using it. - Needs assistance with dressing and some bathroom activities. - House is not set up for wheelchair accessibility; experiences difficulty in the kitchen. - Sleeps in a recliner chair; does not use a walker. - Has made medication errors; requests assistance with medication management. Phantom Limb Pain: - Experiences phantom limb pain when using prosthetic leg. - Currently taking gabapentin 400 mg in the morning and 800 mg at bedtime; sometimes takes an additional 400 mg in the afternoon. - Reports gabapentin is not providing adequate relief. Depression: - Feels that health issues are a burden on her and marriage. - Taking bupropion 150 mg in the evening and Lexapro in the morning. Patient's last HgA1C was Hemoglobin A1C (%) Date Value 06/13/2024 6.1 12/11/2023 6.1 05/09/2021 5.4 06/09/2020 6.3 ) Last 14 Encounter BP Readings: Date: BP: 03/19/2025 137/71 01/07/2025 130/58 12/05/2024 118/52 11/03/2024 118/70 10/27/2024 110/66 10/23/2024 102/67 10/09/2024 132/66 09/30/2024 159/70 09/29/2024 122/62 06/13/2024 157/70 04/03/2024 146/68 03/17/2024 108/58 06/13/2023 130/54 05/15/2023 118/68 ROS Constitutional: (+) weakness, (+) fatigue, (+) drowsiness Respiratory: (+) exertional dyspnea Musculoskeletal: (+) ambulation difficulty, (+) leg pain, (+) falls Neurological: (+) phantom limb pain, (+) limb twitching Psychiatric: (+) depressed mood Objective BP 137/71 Pulse 80 Resp 16 Physical Exam Vitals and nursing note reviewed. Constitutional: Appearance: Normal appearance. HENT: Head: Normocephalic and atraumatic. Right Ear: Tympanic membrane and ear canal normal. Left Ear: Ear canal normal. A middle ear effusion (serous) is present. Nose: Mucosal edema present. Mouth/Throat: Lips: [place]. Mouth: Mucous membranes are moist. Pharynx: Oropharynx is clear. Tonsils: No tonsillar exudate. Eyes: Conjunctiva/sclera: Conjunctivae normal. Cardiovascular: Rate and Rhythm: Normal rate and regular rhythm. Heart sounds: Normal heart sounds. Pulmonary: Effort: Pulmonary effort is normal. Breath sounds: Normal breath sounds. Skin: General: Skin is warm and dry. Neurological: General: No focal deficit present. Mental Status: She is alert and oriented to person, place, and time. ALLERGIES Allergen Reactions Meloxicam GI Upset Sulfa (Sulfonamide * Swelling Facial swelling, shortness of breath. Medications acyclovir (ZOVIRAX) 400 mg tablet Take 1 tablet by mouth two times a day. escitalopram oxalate (LEXAPRO) 20 mg tablet Take 1 tablet by mouth once daily. nystatin (MYCOSTATIN) powder Apply 1 application to affected area two times a day as needed. For prevention ondansetron (ZOFRAN) 4 mg tablet (more content not included)... [facility] 03-19-2025 History of Present illness Narrative SUBJECTIVE: RSV Vaccine(1 - Risk 60-74 years 1-dose series) Never done DTaP,Tdap,Td Vaccine(2 - Td or Tdap) due on 10/01/2018 Diabetic Foot Exam due on 06/13/2024 HbA1C due on 12/11/2024 Mammogram Screening due on 09/05/2025 HPI Miriam Thomas is a 70 year old female. 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 (Hcc) Recurrent Major Depression in Partial Remission Functional Dyspepsia Gastroesophageal Reflux Disease Diabetic Gastroparesis (Hcc) Lichen Sclerosus Type 2 Diabetes Mellitus With Diabetic Peripheral Angiopathy and Gangrene, With Long-Term Current Use of Insulin (Hcc) Obesity, Class I, Bmi 30-34.9 Leukocytosis Type 2 Diabetes Mellitus With Stage 3b Chronic Kidney Disease, With Long-Term Current Use of Insulin (Hcc) Hx of Bka, Left (Hcc) Urinary Retention Muscular Deconditioning Moderate Episode of Recurrent Major Depressive Disorder (Hcc) Hypertensive Ckd (Chronic Kidney Disease) Jose (Obstructive Sleep Apnea) Presents for a follow-up visit. Miriam Thomas is a 70-year-old female with a history of stage 4 CKD, DM, and depression, presenting for evaluation of home care needs and management of phantom limb pain. Home Care Needs: - Miriam requires assistance with meal preparation and light housekeeping. - , age 77 with heart disease function, currently provides most assistance, adversely affecting his health. - Difficulty ambulating due to unilateral leg amputation; uses a wheelchair. - Has a prosthetic leg but experiences significant pain and phantom limb pain when using it. - Needs assistance with dressing and some bathroom activities. - House is not set up for wheelchair accessibility; experiences difficulty in the kitchen. - Sleeps in a recliner chair; does not use a walker. - Has made medication errors; requests assistance with medication management. Phantom Limb Pain: - Experiences phantom limb pain when using prosthetic leg. - Currently taking gabapentin 400 mg in the morning and 800 mg at bedtime; sometimes takes an additional 400 mg in the afternoon. - Reports gabapentin is not providing adequate relief. Depression: - Feels that health issues are a burden on her and marriage. - Taking bupropion 150 mg in the evening and Lexapro in the morning. Patient's last HgA1C was Hemoglobin A1C (%) Date Value 06/13/2024 6.1 12/11/2023 6.1 05/09/2021 5.4 06/09/2020 6.3 ) Last 14 Encounter BP Readings: Date: BP: 03/19/2025 137/71 01/07/2025 130/58 12/05/2024 118/52 11/03/2024 118/70 10/27/2024 110/66 10/23/2024 102/67 10/09/2024 132/66 09/30/2024 159/70 09/29/2024 122/62 06/13/2024 157/70 04/03/2024 146/68 03/17/2024 108/58 06/13/2023 130/54 05/15/2023 118/68 ROS Constitutional: (+) weakness, (+) fatigue, (+) drowsiness Respiratory: (+) exertional dyspnea Musculoskeletal: (+) ambulation difficulty, (+) leg pain, (+) falls Neurological: (+) phantom limb pain, (+) limb twitching Psychiatric: (+) depressed mood Objective BP 137/71 Pulse 80 Resp 16 Physical Exam Vitals and nursing note reviewed. Constitutional: Appearance: Normal appearance. HENT: Head: Normocephalic and atraumatic. Right Ear: Tympanic membrane and ear canal normal. Left Ear: Ear canal normal. A middle ear effusion (serous) is present. Nose: Mucosal edema present. Mouth/Throat: Lips: [place]. Mouth: Mucous membranes are moist. Pharynx: Oropharynx is clear. Tonsils: No tonsillar exudate. Eyes: Conjunctiva/sclera: Conjunctivae normal. Cardiovascular: Rate and Rhythm: Normal rate and regular rhythm. Heart sounds: Normal heart sounds. Pulmonary: Effort: Pulmonary effort is normal. Breath sounds: Normal breath sounds. Skin: General: Skin is warm and dry. Neurological: General: No focal deficit present. Mental Status: She is alert and oriented to person, place, and time. ALLERGIES Allergen Reactions Meloxicam GI Upset Sulfa (Sulfonamide * Swelling Facial swelling, shortness of breath. Medications acyclovir (ZOVIRAX) 400 mg tablet Take 1 tablet by mouth two times a day. escitalopram oxalate (LEXAPRO) 20 mg tablet Take 1 tablet by mouth once daily. nystatin (MYCOSTATIN) powder Apply 1 application to affected area two times a day as needed. For prevention ondansetron (ZOFRAN) 4 mg tablet Take 1 tablet by mouth every 8 hours as needed for nausea/vomiting. carvedilol (COREG) 6.25 mg tablet Take 1 tablet by mouth two times a day with meals. hydrALAZINE (APRESOLINE) 50 mg tablet Take 1 tablet by mouth two times a day. Hold for SBP less than 120mm HG gabapentin (NEURONTIN) 400 mg capsule Take 1 capsule by mouth every afternoon AND 2 capsules daily at bedtime. Do all this for 180 days. albuterol HFA (PROVENTIL HFA) 90 mcg/actuation inhaler Inhale 1-2 Puffs as instructed four times a day as needed for wheezing/shortness of breath. fluticasone (FLONASE) 50 mcg/actuation nasal spray Use 2 Sprays in each nostril once daily. Rinse mouth after use. clopidogrel (PLAVIX) 75 mg tablet Take 1 tablet by mouth once daily. dulaglutide (TRULICITY) 4.5 mg/0.5 mL pen injector Inject 4.5 mg subcutaneously one time a week. Gets through [facility]. insulin glargine 100 unit/mL (3 mL) Inject 26 Units subcutaneously every morning. (Basaglar) Patient assistance medication. insulin lispro (HUMALOG KWIKPEN) 100 unit/mL Inject 8 units with breakfast and 4 units with evening meal as directed. Patient assistance medication. atorvastatin (LIPITOR) 40 mg tablet Take 1 tablet by mouth daily at bedtime. For cholesterol. buPROPion XL (WELLBUTRIN XL) 150 mg 24 hr tablet Take 1 tablet by mouth once daily. tamsulosin (FLOMAX) 0.4 mg Take 2 capsules by mouth once daily. Blood-Glucose Sensor (DEXCOM G7 SENSOR) jackson Apply new sensor every ten (10) days. ciclopirox (LOPROX) 0.77 % cream Apply to affected area two times a day. For 2 to 4 weeks till rash resolves. May treat recurrences for rash under abdominal pannus blood sugar diagnostic (BLOOD GLUCOSE TEST) test strip Test blood sugar(s) 3 to 4 times daily. Dx: Other DM Code E11.51 Insulin: Yes One touch or Accucheck strips or strips covered by her insurance. Lancets Test blood sugar(s) 3 to 4 times daily. Dx: Other DM Code E11.51 Insulin: Yes clobetasol (TEMOVATE) 0.05 % ointment Apply nightly to affected area for 8-12 weeks, then 1-3x weekly for maintenance pantoprazole DR (PROTONIX) 40 mg tablet Take 1 tablet by mouth once daily. B complex w-C no.20/folic acid (B COMPLEX WITH C 20-FOLIC ACID ORAL) Take 1 tablet by mouth once daily. Magnesium Oxide 500 mg tab Take 1 tablet by mouth once daily. For constipation Blood-Glucose Meter,Continuous (DEXCOM G7 ENVELOPE SEALER) misc Use to check blood sugar at least four (4) times daily. nitroglycerin sublingual (NITROQUICK) 0.4 mg SL tablet Dissolve 1 tablet under the tongue as needed. As directed insulin needles, DISPOSABLE, (PEN NEEDLE) 31 gauge x 5/16 Use one needle per dose. 5 per day. bacitracin zinc 500 unit/gram ointment Apply to affected area twice daily. As directed for affected area till healed cetirizine (ZYRTEC) 10 mg tablet Take 1 tablet by mouth once daily as needed. aspirin, enteric coated (ASPIRIN, ENTERIC COATED) 81 mg EC tablet Take 1 tablet by mouth once daily. cyanocobalamin, vitamin B-12, 5,000 mcg subl Dissolve under the tongue once daily. ascorbic acid, vitamin C, (VITAMIN C) 500 mg tablet Take 1,000 mg by mouth once daily. polyethylene glycol 3350 (MIRALAX) 17 gram/dose powder Take 17 g by mouth as directed. benzonatate (TESSALON PERLE) 100 mg capsule Take 1-2 capsules by mouth three times a day as needed. (Patient not taking: Reported on 01/07/2025) Saccharomyces boulardii (FLORASTOR) 250 mg capsule Take 1 capsule by mouth two times a day. PAST MEDICAL HISTORY Diagnosis Date Anxiety Arthritis Depression MARITZA exposure in utero Diabetes mellitus (HCC) 1986 Diabetic neuropathy (HCC) Gangrene (HCC) Heart attack (HCC) [address] [employer] [place] Herniated disc Hypertension Muscular deconditioning PVD (peripheral vascular disease) 10/2019 S/P BKA (below knee amputation) unilateral, left (HCC) Sleep apnea cpap Snoring Stroke ([facility]) 11/2004 and 05/2005 x 2, right sided weakness Social History Tobacco Use Smoking status: Never Smokeless tobacco: Never Vaping Use Vaping status: Never Used Substance Use Topics Alcohol use: Yes Comment: Rarely Drug use: No Latest Ref Rng 12/11/2023 06/13/2024 10/10/2024 WBC 3.70 - 11.00 k/uL 9.99 8.70 RBC 3.90 - 5.20 m/uL 3.17 (L) 3.21 (L) Hemoglobin 11.5 - 15.5 g/dL 9.6 (L) 9.2 (L) Hematocrit 36.0 - 46.0 % 31.0 (L) 29.4 (L) MCV 80.0 - 100.0 fL 97.8 91.6 MCH 26.0 - 34.0 pg 30.3 28.7 MCHC 30.5 - 36.0 g/dL 31.0 31.3 RDW-CV 11.5 - 15.0 % 14.2 14.5 Platelet Count 150 - 400 k/uL 256 257 MPV 9.0 - 12.7 fL 10.5 10.4 Neut% % 65.1 Abs Neut (ANC) 1.45 - 7.50 k/uL 6.50 Lymph% % 22.1 Abs Lymph 1.00 - 4.00 k/uL 2.21 [place]% % 6.8 Abs [place] <0.87 k/uL 0.68 Eosin% % 5.1 Abs Eosin <0.46 k/uL 0.51 (H) Baso% % 0.4 Abs Baso <0.11 k/uL 0.04 Immature Gran % % 0.5 IMMATURE GRANS (ABS) <0.10 k/uL 0.05 NRBC /100 WBC 0.0 Absolute nRBC <0.01 k/uL <0.01 <0.01 DTYPE Auto Protein, Total 6.3 - 8.0 g/dL 6.8 7.0 Protein, Total 6.3 - 8.0 g/dL 7.0 Albumin 3.9 - 4.9 g/dL 4.1 4.4 Calcium 8.5 - 10.2 mg/dL 11.0 (H) 11.3 (H) 10.6 (H) Bilirubin, Total 0.2 - 1.3 mg/dL 0.2 0.2 Alkaline Phosphatase 34 - 123 U/L 83 100 AST 13 - 35 U/L 19 15 ALT 7 - 38 U/L 18 21 Glucose 74 - 99 mg/dL 133 (H) 125 (H) 148 (H) BUN 7 - 21 mg/dL 37 (H) 38 (H) 25 (H) Creatinine 0.58 - 0.96 mg/dL 1.68 (H) 1.78 (H) 1.61 (H) Sodium 136 - 144 mmol/L 142 143 140 Potassium 3.7 - 5.1 mmol/L 4.9 5.2 (H) 4.5 Chloride 98 - 107 mmol/L 106 (H) 107 106 CO2 22 - 30 mmol/L 25 24 23 Anion Gap 8 - 15 mmol/L 11 12 11 eGFR >=60 mL/min/1.73m 33 (L) 31 (L) 35 (L) Cholesterol, Total <200 mg/dL 157 Triglyceride <150 mg/dL 119 HDL Cholesterol >39 mg/dL 55 Non HDL Cholesterol <130 mg/dL 102 Fasting Time hrs 11 VLDL Cholesterol <30 mg/dL 24 TC:HDL Ratio <5.10 2.85 LDL Cholesterol <100 mg/dL 78 LDL:HDL Ratio <2.54 1.42 Albumin 3.43 - 5.41 g/dL 4.20 Alpha 1 Globulin 0.18 - 0.43 g/dL 0.35 Alpha 2 Globulin 0.42 - 0.98 g/dL 0.82 Beta Globulin 0.61 - 1.17 g/dL 0.79 Gamma Globulin 0.53 - 1.51 g/dL 0.83 Interpretation (Prot Electro) No definitive M protein is identified on protein electrophoresis. No definitive M protein is identified on protein electrophoresis. M-Protein Location -- M-Protein Concentration <=0.00 g/dL 0.00 SPE Staff Review Reviewed by Dr. Davy Agarwal MD Total Cholesterol, Nonfasting <200 mg/dL 153 Triglycerides, Nonfasting <150 mg/dL 167 (H) HDL Cholesterol, Nonfasting >39 mg/dL 48 LDL Cholesterol, Nonfasting <100 mg/dL 72 Non HDL Cholesterol, Nonfasting <130 mg/dL 105 VLDL Cholesterol, Nonfasting <30 mg/dL 33 (H) Total Chol/HDL Ratio, Nonfasting <5.10 mg/dL 3.19 LDL/HDL Ratio, Nonfasting <2.54 mg/dL 1.50 Albumin, Urine (Prot Electro) % 54.99 Alpha 1 Globulin, Urine % 5.55 Alpha 2 Globulin, Urine % 13.75 Beta Globulin, Urine % 13.37 Gamma Globulin, Urine % 12.34 Interpretation (Urine Electro) No definitive M protein is identified on protein electrophoresis. No definitive M protein is identified on protein electrophoresis. Interpretation Comment for Protein Electrophoresis The absence of M-protein on urine protein electrophoresis does not entirely exclude the presence of monoclonal gammopathy in urine. Monoclonal protein analysis (immunofixation), a more definitive test to exclude monoclonal gammopathy, may be requested on this specimen if clinically indicated. Staff Review (Urine Electro) Reviewed by Dr. Davy Agarwal MD Creatinine, Ur Random (UCRR) 20.0 - 300.0 mg/dL 63.7 Albumin, Urine Random mg/L 71.8 Albumin/Creat Ratio <30 mg/g 113 (H) Hemoglobin A1C 4.3 - 5.6 % 6.1 (H) 6.1 (H) Estimated Average Glucose mg/dL 128 128 Normalized Calcium 1.08 - 1.30 mmol/L 1.46 (H) Ionized Calcium 1.08 - 1.30 mmol/L 1.45 (H) Magnesium 1.7 - 2.3 mg/dL 2.4 (H) Free T4 0.9 - 1.7 ng/dL 1.2 Free T3 2.3 - 4.1 pg/mL 2.2 (L) Vitamin D 25 Hydroxy 31.0 - 80.0 ng/mL 51.0 PTH, Intact 15 - 65 pg/mL 151 (H) Phosphorus 2.7 - 4.8 mg/dL 3.1 Protein, Urine Random 0 - 20 mg/dL 12 Glucose, Point of Care 74 - 99 mg/dL 194 ! 1. Moderate episode of recurrent major depressive disorder (HCC) (F33.1) - Current treatment includes bupropion 150 mg in the evening and escitalopram in the morning. Increased gabapentin which should help with anxiety. Will hold off on additional changes at this time. Bupropion at current dose, would not increase at this time due to kidney function 2. Type 2 diabetes mellitus with diabetic neuropathy, with long-term current use of insulin (HCC) (E11.40) 3. Type 2 diabetes mellitus with stage 3b chronic kidney disease, with long-term current use of insulin ([facility]) (E11.22) - Managed with Trulicity and Basaglar. - Advised to maintain adequate hydration, aiming for approximately 64 ounces of fluid daily to support kidney function. - Patient has attended dialysis education classes; discussed the importance of hydration to potentially delay progression to dialysis. - Follow-up with job spotter Dr. Barnes. 4. Self-care deficit (Z78.9) - requires assistance with dressing, toileting, and meal preparation. - Referral to [facility] for evaluation and initiation of home health services. - best worker Saundra Jhaveri will contact the patient to discuss additional community resources for light housekeeping and medication management. 5. 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) (Z89.512) 6. Unilateral complete BKA, left, sequela (HCC) (S88.112S) - experiences difficulty using prosthetic limb due to pain and deconditioning. - Referral to physical therapy for home-based rehabilitation to improve strength and mobility. - Advised to follow up with prosthetic provider [employer] for adjustments and guidance on prosthetic use. 7. Pain of left lower extremity (M79.605) 8. Phantom limb syndrome with pain (HCC) (G54.6) - Current medication includes gabapentin 400 mg in the morning and 800 mg at bedtime. - Increased gabapentin to 800 mg BID to improve pain management. - Discussed the importance of consistent medication use to stay ahead of pain and facilitate increased activity levels. Nichelle Villatoro, SHEAR OPERATOR [employer] Medical Decision Making: Problems: Moderate: 1+ chronic illnesses with change and 2+ stable chronic illnesses Risk: Moderate: Drug management Medical Decision Making Level: 4 - Moderate documented in this encounter [facility] 01-15-2025 Telephone encounter Note Patient has been identified by name and date of : Yes Patient phones for refill(s): Requested Prescriptions Pending Prescriptions Disp Refills acyclovir (ZOVIRAX) 400 mg tablet 180 tablet 3 Sig: Take 1 tablet by mouth two times a day. Date of last office visit in primary care: 01/07/2025 Date of next office visit in primary care: Visit date not found Please advise. Thank you. Didi Chawla LPN. [facility] 01-15-2025 Miscellaneous Notes Patient has been identified by name and date of : Yes Patient phones for refill(s): Requested Prescriptions Pending Prescriptions Disp Refills acyclovir (ZOVIRAX) 400 mg tablet 180 tablet 3 Sig: Take 1 tablet by mouth two times a day. Date of last office visit in primary care: 01/07/2025 Date of next office visit in primary care: Visit date not found Please advise. Thank you. Didi Chawla LPN. documented in this encounter [facility] 01-07-2025 Note HNO ID: [id number] Author: EARL SHEPHERD MD Service: ? Author Type: Physician Type: Progress Notes Filed: 01/23/2025 01:20 Note Text: This note was created using Men Rock[employer]. Subjective HISTORY Miriam Thomas is a 69 year old lady here for Medicare Annual Wellness Visit , yearly exam and follow up appointment. Miriam is a 69-year-old female, with a history of depression, lichen sclerosus, and chronic pain, presenting for a Medicare Annual Wellness Visit. Miriam reports persistent discomfort and pressure in the rectal and vaginal areas, exacerbated by prolonged sitting. She uses a lift chair at home and frequently shifts positions to alleviate discomfort. She has tried various cushions, including a donut pillow, but finds them only partially effective. She denies any prolapse issues. Miriam has experienced multiple health issues since October, starting with an angioplasty on October 10. She subsequently developed pneumonia and COVID-19, leading to a prolonged period of illness. She reports a loss of taste and a significant decrease in appetite during this time. She also reports a recent episode of severe constipation about two weeks ago, which was unresponsive to four days of Miralax. She eventually achieved relief after increasing the dosage as advised by a pharmacist. She attributes the constipation to decreased mobility and plans to continue using Miralax to prevent recurrence. Miriam also notes chronic cloudy urine without associated dysuria or urgency. She took Azo for a few days, but the cloudiness persisted after discontinuation. She is currently taking Wellbutrin in the evening for depression. She was previously on escitalopram but is unsure why she stopped taking it. She reports feeling better in the spring due to increased sunlight exposure. She also uses nystatin powder for intertrigo in skin folds, including under the breasts, and has been using cornstarch to keep these areas dry. She inquires about the use of antiperspirant for this purpose. She follows up with a job spotter, Dr. Barnes, at [facility], who monitors her kidney function and anemia. She reports that her blood glucose levels were elevated while on a steroid for lichen sclerosus but are usually well-controlled. She expresses interest in making her new puppy a therapy dog to help with anxiety when her is not around. She reports feeling like an easy target when alone in public places. PAST MEDICAL HISTORY Diagnosis Date Anxiety Arthritis Depression MARITZA exposure in utero Diabetes mellitus ([facility]) 1986 Diabetic neuropathy ([facility]) Gangrene ([facility]) Heart attack ([facility]) [address] Adalberto Power [place] Herniated disc Hypertension Muscular deconditioning PVD (peripheral vascular disease) 10/2019 S/P BKA (below knee amputation) unilateral, left (HCC) Sleep apnea cpap Snoring Stroke ([facility]) 11/2004 and 05/2005 x 2, right sided weakness Current Outpatient Medications Medication Sig ondansetron (ZOFRAN) 4 mg tablet Take 1 tablet by mouth every 8 hours as needed for nausea/vomiting. benzonatate (TESSALON PERLE) 100 mg capsule Take 1-2 capsules by mouth three times a day as needed. carvedilol (COREG) 6.25 mg tablet Take 1 tablet by mouth two times a day with meals. hydrALAZINE (APRESOLINE) 50 mg tablet Take 1 tablet by mouth two times a day. Hold for SBP less than 120mm HG gabapentin (NEURONTIN) 400 mg capsule Take 1 capsule by mouth every afternoon AND 2 capsules daily at bedtime. Do all this for 180 days. Saccharomyces boulardii (FLORASTOR) 250 mg capsule Take 1 capsule by mouth two times a day. albuterol HFA (PROVENTIL HFA) 90 mcg/actuation inhaler Inhale 1-2 Puffs as instructed four times a day as needed for wheezing/shortness of breath. fluticasone (FLONASE) 50 mcg/actuation nasal spray Use 2 Sprays in each nostril once daily. Rinse mouth after use. clopidogrel (PLAVIX) 75 mg tablet Take 1 tablet by mouth once daily. dulaglutide (TRULICITY) 4.5 mg/0.5 mL pen injector Inject 4.5 mg subcutaneously one time a week. Gets [facility]. insulin glargine 100 unit/mL (3 mL) Inject 26 Units subcutaneously every morning. (Basaglar) Patient assistance medication. insulin lispro (HUMALOG KWIKPEN) 100 unit/mL Inject 8 units with breakfast and 4 units with evening meal as directed. Patient assistance medication. atorvastatin (LIPITOR) 40 mg tablet Take 1 tablet by mouth daily at bedtime. For cholesterol. buPROPion XL (WELLBUTRIN XL) 150 mg 24 hr tablet Take 1 tablet by mouth once daily. tamsulosin (FLOMAX) 0.4 mg Take 2 capsules by mouth once daily. Blood-Glucose Sensor (Planspot G7 SENSOR) jackson Apply new sensor every ten (10) days. ciclopirox (LOPROX) 0.77 % cream Apply to affected area two times a day. For 2 to 4 weeks till rash resolves. May treat recurrences for rash under abdominal pannus acyclovir (ZOVIRAX) 400 mg tablet Take 1 tablet by m (more content not included)... [facility] 12-27-2024 Note HNO ID: [id number] Author: ODIN DOBBINS MD Service: ? Author Type: Physician Type: Progress Notes Filed: 12/27/2024 19:02 Note Text: Duplicate encounter [facility] 12-27-2024 Telephone encounter Note Patient calls to request antibiotic for possible UTI. Nurse triage completed. Protocol recommends see provider within 24 hours. Offered same day with available provider. Patient declines. Will go to [facility] at her convenience. Care advice reviewed with verbalized understanding. Reason for Disposition [1] Pain or burning with passing urine (urination) AND [2] female Age > 50 years Answer Assessment - Initial Assessment Questions 1. SYMPTOM: Cloudy urine and Pain with urination. Using Azo with some relief. 2. ONSET: In the night. 3. PAIN: Moderate 4. CAUSE: Patient believes a UTI. 5. OTHER SYMPTOMS: Pain with urination. No blood in urine, fever, flank pain. Answer Assessment - Initial Assessment Questions 1. SYMPTOM: Cloudy urine and Pain with urination. Using Azo with some relief. 2. ONSET: In the night. 3. PAIN: Moderate 4. CAUSE: Patient believes a UTI. 5. OTHER SYMPTOMS: Pain with urination. No blood in urine, fever, flank pain. Protocols used: Urinary [id number], Urination Pain - Yyicfr-SMSOO-[id number] [facility] 12-27-2024 Miscellaneous Notes Patient calls to request antibiotic for possible UTI. Nurse triage completed. Protocol recommends see provider within 24 hours. Offered same day with available provider. Patient declines. Will go to [facility] at her convenience. Care advice reviewed with verbalized understanding. Reason for Disposition [1] Pain or burning with passing urine (urination) AND [2] female Age > 50 years Answer Assessment - Initial Assessment Questions 1. SYMPTOM: Cloudy urine and Pain with urination. Using Azo with some relief. 2. ONSET: In the night. 3. PAIN: Moderate 4. CAUSE: Patient believes a UTI. 5. OTHER SYMPTOMS: Pain with urination. No blood in urine, fever, flank pain. Answer Assessment - Initial Assessment Questions 1. SYMPTOM: Cloudy urine and Pain with urination. Using Azo with some relief. 2. ONSET: In the night. 3. PAIN: Moderate 4. CAUSE: Patient believes a UTI. 5. OTHER SYMPTOMS: Pain with urination. No blood in urine, fever, flank pain. Protocols used: Urinary Hsabuabu-EMJVQ-AK, Urination Pain - Fkttak-[id number]-KO documented in this encounter [facility] 12-19-2024 Instructions Earl Shepherd MD - 12/19/2024 1:27 PM EDT - Take Zofran 4 mg tablets for nausea as needed, up to every 8 hours; prescription sent to [facility] in [place]. - Take Tessalon Perles for cough as needed; prescription sent to [facility] in [place]. - Stay hydrated by sipping fluids like broth, juice, or Gatorade with sugar every 15-30 minutes. - Avoid dairy products containing lactose to help manage diarrhea. - Monitor your symptoms; if you become too weak to eat or drink, go to the ER. - Next appointment is on January 07. documented in this encounter [facility] 12-19-2024 Note HNO ID: [id number] Author: EARL SHEPHERD MD Service: ? Author Type: Physician Type: Progress Notes Filed: 12/19/2024 13:36 Note Text: VIRTUAL VISIT PROGRESS NOTE This is a virtual visit using ZipZapom Video Visit. It required patient-provider interaction for the medical decision making as documented below. I have communicated my name and active licensure. The patient's identity and physical location were verified at the time of this visit. Either the patient or their legal financial services representative has been informed of the risks and benefits of -- and alternatives to -- treatment through a remote evaluation and consents to proceed with the evaluation remotely. Miriam Thomas is a 69 year old female seen for acute illness: Miriam is a 69-year-old female, with a recent history of pneumonia, presenting with symptoms of nasal congestion, nausea, emesis, and diarrhea. Miriam reports onset of symptoms beginning approximately 1.5 weeks ago, initially presenting with a cough that progressed to nasal congestion. Over the past week, she has experienced nausea, emesis, and diarrhea, accompanied by chills. She notes persistent nasal congestion with significant drainage and postnasal drip, as well as a productive cough. She denies otalgia, otic pressure, pharyngitis, or wheezing. She reports frontal sinus pressure with associated cephalalgia and mild tenderness in the maxillary sinuses. She denies dyspnea but reports fatigue from coughing and prolonged recumbency. Miriam has been unable to maintain adequate hydration and nutrition, finding it difficult to consume fluids such as Gatorade and 7-Up, and unable to tolerate nutritional drinks like Ensure or Boost due to nausea. She has managed to ingest small amounts of food, including three saltine crackers last night, but experienced gagging several hours later. She denies current use of antiemetic medications. Diarrhea is reported at a frequency of 2-3 times per day, with watery and very soft stools. She denies abdominal pain or pressure. Miriam has a recent history of pneumonia in October and November, from which she was recovering before the onset of current symptoms. She also mentions that her 's father is similarly ill. HISTORY REVIEWED (electronic chart updated): PAST MEDICAL HISTORY Diagnosis Date Anxiety Arthritis Depression MARITZA exposure in utero Diabetes mellitus ([facility]) 1986 Diabetic neuropathy ([facility]) Gangrene ([facility]) Heart attack ([facility]) [address] Adalberto Power [place] Herniated disc Hypertension Muscular deconditioning PVD (peripheral vascular disease) ([facility]) 10/2019 S/P BKA (below knee amputation) unilateral, left ([facility]) Sleep apnea cpap Snoring Stroke ([facility]) 11/2004 and 05/2005 x 2, right sided weakness PAST SURGICAL HISTORY Procedure Laterality Date AMPUTATION OF LOWER LEG Left 07/20/2020 L BKA ANESTH,BRACHIAL/FEMORAL ARTERIOGRAM Left 11/04/2019 Left femoral arteriogram with stenting of left superficial femoral artery. Attempted left popliteal artery thromboembolectomy. Left anterior tibial thromboembolectomy @ [facility] by Dr. Zavaleta ANGIO ABDOMINAL AORTA LOW EXTR 10/10/2024 1. Aorta and pelvic angiogram with CO2, radiographic interpretation 2. Right lower extremity angiogram with CO2, radiographic interpretation 3. Balloon angioplasty of right Mid popliteal artery with 6x60 IN.PACT AORTOGRAM AND LEG RUNOFF 11/04/2019 1. Abdominal aortogram with bilateral selective lower extremity carbon dioxide runoff @ [facility] by Dr Zavaleta DELIVERY ONLY 1980, 1983, 1985 , low transverse, x 3 COLONOSCOPY FLX DX W/COLLJ SPEC WHEN PFRMD 02/17/2016 Colonoscopy (MAC) ESOPHAGOGASTRODUODENOSCOPY TRANSORAL DIAGNOSTIC 11/26/2017 EGD ESOPHAGOGASTRODUODENOSCOPY TRANSORAL DIAGNOSTIC 01/14/2018 EGD PAST SURGICAL HISTORY OF last one in 2006 DANDC, multiple x4 PAST SURGICAL HISTORY OF Left 2000 ganglion cyst removed left wrist PAST SURGICAL HISTORY OF Bilateral 07/2013 cataracts TRANSMETATARSAL AMPUTATION/OANDP Left 12/12/2019 Transmetatarsal amputation with tendoachilles lengthening left lower extremity FAMILY HISTORY Problem Relation Age of Onset Hypertension Mother Diabetes Mother Lipids Mother Hypertension Father Diabetes Father Lipids Father Heart Father Triple bypass other (AAA) Father Cancer Paternal Grandmother uterine cancer Social History Tobacco Use Smoking status: Never Smokeless tobacco: Never Vaping Use Vaping status: Never Used Substance Use Topics Alcohol use: Yes Comment: Rarely Drug use: No Current Outpatient Medications Medication Sig carvedilol (COREG) 6.25 mg tablet Take 1 tablet by mouth two times a day with meals. hydrALAZINE (APRESOLINE) 50 mg tablet Take 1 tablet by mouth two times a day. Hold for SBP less than 120mm HG gabapentin (NEURONTIN) 400 mg capsule Take 1 capsule by mouth every afternoon AND (more content not included)... [facility] 12-19-2024 History of Present illness Narrative VIRTUAL VISIT PROGRESS NOTE This is a virtual visit using Unirisx Zoom Video Visit. It required patient-provider interaction for the medical decision making as documented below. I have communicated my name and active licensure. The patient's identity and physical location were verified at the time of this visit. Either the patient or their legal financial services representative has been informed of the risks and benefits of -- and alternatives to -- treatment through a remote evaluation and consents to proceed with the evaluation remotely. Miriam Thomas is a 69 year old female seen for acute illness: Miriam is a 69-year-old female, with a recent history of pneumonia, presenting with symptoms of nasal congestion, nausea, emesis, and diarrhea. Miriam reports onset of symptoms beginning approximately 1.5 weeks ago, initially presenting with a cough that progressed to nasal congestion. Over the past week, she has experienced nausea, emesis, and diarrhea, accompanied by chills. She notes persistent nasal congestion with significant drainage and postnasal drip, as well as a productive cough. She denies otalgia, otic pressure, pharyngitis, or wheezing. She reports frontal sinus pressure with associated cephalalgia and mild tenderness in the maxillary sinuses. She denies dyspnea but reports fatigue from coughing and prolonged recumbency. Miriam has been unable to maintain adequate hydration and nutrition, finding it difficult to consume fluids such as Gatorade and 7-Up, and unable to tolerate nutritional drinks like Ensure or Boost due to nausea. She has managed to ingest small amounts of food, including three saltine crackers last night, but experienced gagging several hours later. She denies current use of antiemetic medications. Diarrhea is reported at a frequency of 2-3 times per day, with watery and very soft stools. She denies abdominal pain or pressure. Miriam has a recent history of pneumonia in October and November, from which she was recovering before the onset of current symptoms. She also mentions that her 's father is similarly ill. HISTORY REVIEWED (electronic chart updated): PAST MEDICAL HISTORY Diagnosis Date Anxiety Arthritis Depression MARITZA exposure in utero Diabetes mellitus ([facility]) 1986 Diabetic neuropathy ([facility]) Gangrene ([facility]) Heart attack ([facility]) [address] Adalberto Power [place] Herniated disc Hypertension Muscular deconditioning PVD (peripheral vascular disease) ([facility]) 10/2019 S/P BKA (below knee amputation) unilateral, left ([facility]) Sleep apnea cpap Snoring Stroke ([facility]) 11/2004 and 05/2005 x 2, right sided weakness PAST SURGICAL HISTORY Procedure Laterality Date AMPUTATION OF LOWER LEG Left 07/20/2020 L BKA ANESTH,BRACHIAL/FEMORAL ARTERIOGRAM Left 11/04/2019 Left femoral arteriogram with stenting of left superficial femoral artery. Attempted left popliteal artery thromboembolectomy. Left anterior tibial thromboembolectomy @ [facility] by Dr. Zavaleta ANGIO ABDOMINAL AORTA LOW EXTR 10/10/2024 1. Aorta and pelvic angiogram with CO2, radiographic interpretation 2. Right lower extremity angiogram with CO2, radiographic interpretation 3. Balloon angioplasty of right Mid popliteal artery with 6x60 IN.PACT AORTOGRAM AND LEG RUNOFF 11/04/2019 1. Abdominal aortogram with bilateral selective lower extremity carbon dioxide runoff @ [facility] by Dr Zavaleta DELIVERY ONLY 1980, 1983, 1985 , low transverse, x 3 COLONOSCOPY FLX DX W/COLLJ SPEC WHEN PFRMD 02/17/2016 Colonoscopy (MAC) ESOPHAGOGASTRODUODENOSCOPY TRANSORAL DIAGNOSTIC 11/26/2017 EGD ESOPHAGOGASTRODUODENOSCOPY TRANSORAL DIAGNOSTIC 01/14/2018 EGD PAST SURGICAL HISTORY OF last one in 2006 D&C, multiple x4 PAST SURGICAL HISTORY OF Left 2000 ganglion cyst removed left wrist PAST SURGICAL HISTORY OF Bilateral 07/2013 cataracts TRANSMETATARSAL AMPUTATION/O&P Left 12/12/2019 Transmetatarsal amputation with tendoachilles lengthening left lower extremity FAMILY HISTORY Problem Relation Age of Onset Hypertension Mother Diabetes Mother Lipids Mother Hypertension Father Diabetes Father Lipids Father Heart Father Triple bypass other (AAA) Father Cancer Paternal Grandmother uterine cancer Social History Tobacco Use Smoking status: Never Smokeless tobacco: Never Vaping Use Vaping status: Never Used Substance Use Topics Alcohol use: Yes Comment: Rarely Drug use: No Current Outpatient Medications Medication Sig carvedilol (COREG) 6.25 mg tablet Take 1 tablet by mouth two times a day with meals. hydrALAZINE (APRESOLINE) 50 mg tablet Take 1 tablet by mouth two times a day. Hold for SBP less than 120mm HG gabapentin (NEURONTIN) 400 mg capsule Take 1 capsule by mouth every afternoon AND 2 capsules daily at bedtime. Do all this for 180 days. guaifenesin/pseudoephedrne HCl (MUCINEX D ORAL) Take by mouth. Saccharomyces boulardii (FLORASTOR) 250 mg capsule Take 1 capsule by mouth two times a day. predniSONE (DELTASONE) 10 mg tablet Take 40 mg x 3 days, 20 mg x 3 days, 10 mg x 3 days. Take with food, once daily benzonatate (TESSALON PERLE) 100 mg capsule Take 1-2 capsules by mouth three times a day as needed. albuterol HFA (PROVENTIL HFA) 90 mcg/actuation inhaler Inhale 1-2 Puffs as instructed four times a day as needed for wheezing/shortness of breath. fluticasone (FLONASE) 50 mcg/actuation nasal spray Use 2 Sprays in each nostril once daily. Rinse mouth after use. clopidogrel (PLAVIX) 75 mg tablet Take 1 tablet by mouth once daily. dulaglutide (TRULICITY) 4.5 mg/0.5 mL pen injector Inject 4.5 mg subcutaneously one time a week. Gets through [facility]. insulin glargine 100 unit/mL (3 mL) Inject 26 Units subcutaneously every morning. (Basaglar) Patient assistance medication. insulin lispro (HUMALOG KWIKPEN) 100 unit/mL Inject 8 units with breakfast and 4 units with evening meal as directed. Patient assistance medication. escitalopram oxalate (LEXAPRO) 20 mg tablet Take 1 tablet by mouth once daily. atorvastatin (LIPITOR) 40 mg tablet Take 1 tablet by mouth daily at bedtime. For cholesterol. buPROPion XL (WELLBUTRIN XL) 150 mg 24 hr tablet Take 1 tablet by mouth once daily. tamsulosin (FLOMAX) 0.4 mg Take 2 capsules by mouth once daily. Blood-Glucose Sensor (Planspot G7 SENSOR) jackson Apply new sensor every ten (10) days. ciclopirox (LOPROX) 0.77 % cream Apply to affected area two times a day. For 2 to 4 weeks till rash resolves. May treat recurrences for rash under abdominal pannus acyclovir (ZOVIRAX) 400 mg tablet Take 1 tablet by mouth two times a day. blood sugar diagnostic (BLOOD GLUCOSE TEST) test strip Test blood sugar(s) 3 to 4 times daily. Dx: Other DM Code E11.51 Insulin: Yes One touch or Accucheck strips or strips covered by her insurance. Lancets Test blood sugar(s) 3 to 4 times daily. Dx: Other DM Code E11.51 Insulin: Yes clobetasol (TEMOVATE) 0.05 % ointment Apply nightly to affected area for 8-12 weeks, then 1-3x weekly for maintenance pantoprazole DR (PROTONIX) 40 mg tablet Take 1 tablet by mouth once daily. nystatin (MYCOSTATIN) powder Apply 1 application to affected area twice daily as needed. For prevention B complex w-C no.20/folic acid (B COMPLEX WITH C 20-FOLIC ACID ORAL) Take 1 tablet by mouth once daily. Magnesium Oxide 500 mg tab Take 1 tablet by mouth once daily. For constipation Blood-Glucose Meter,Continuous (DEXCOM G7 ENVELOPE SEALER) [facility] Use to check blood sugar at least four (4) times daily. nitroglycerin sublingual (NITROQUICK) 0.4 mg SL tablet Dissolve 1 tablet under the tongue as needed. As directed insulin needles, DISPOSABLE, (PEN NEEDLE) 31 gauge x 5/16 Use one needle per dose. 5 per day. bacitracin zinc 500 unit/gram ointment Apply to affected area twice daily. As directed for affected area till healed cetirizine (ZYRTEC) 10 mg tablet Take 1 tablet by mouth once daily as needed. aspirin, enteric coated (ASPIRIN, ENTERIC COATED) 81 mg EC tablet Take 1 tablet by mouth once daily. cyanocobalamin, vitamin B-12, 5,000 mcg subl Dissolve under the tongue once daily. ascorbic acid, vitamin C, (VITAMIN C) 500 mg tablet Take 1,000 mg by mouth once daily. biotin 5,000 mcg ODT Take 1 tablet by mouth once daily. polyethylene glycol 3350 (MIRALAX) 17 gram/dose powder Take 17 g by mouth as directed. No current facility-administered medications for this visit. ALLERGIES Allergen Reactions Meloxicam GI Upset Sulfa (Sulfonamide * Swelling Facial swelling, shortness of breath. REVIEW OF SYSTEMS: As noted in HPI Constitutional: (-) fever, (+) chills, (+) fatigue Head: (+) headache Ears/Nose/Mouth/Throat: (+) congestion, (+) post nasal drip, (-) ear pain, (-) sore throat Respiratory: (+) cough, (+) phlegm, (-) wheezing, (-) shortness of breath Gastrointestinal: (+) nausea, (+) vomiting, (+) diarrhea, (-) abdominal pain PHYSICAL EXAMINATION: VIDEO EXAM: (if completed, performed via video enabled technology) GENERAL: alert and appropriate, in no distress, well-hydrated, well nourished, appears tired, and coughs occasionally HEAD: normocephalic, no abnormality or lesion noted EYES: no injection and visual acuity is grossly normal RESPIRATORY: breathing non-labored ASSESSMENT and PLAN: # Acute viral syndrome (B34.9) # Nausea and vomiting, unspecified vomiting type (R11.2) - Symptoms include nasal congestion, cough, nausea, vomiting, and diarrhea; onset approximately one week ago. - No otalgia, wheezing, or dyspnea reported; mild frontal and maxillary sinus tenderness noted. - Differential diagnosis includes viral etiology such as norovirus or influenza; bacterial infection less likely due to absence of severe pain, pressure, and fever. - Prescribed Zofran 4 mg tablets, to be taken every 8 hours as needed for nausea; 20 tablets dispensed. - Prescribed Tessalon Perles, 60 capsules with one refill, for cough management. - Advised to maintain hydration with small, frequent sips of fluids such as broth and juice; avoid lactose-containing products. - Monitor for signs of dehydration or inability to maintain oral intake; instructed to seek emergency care if symptoms worsen. - Follow-up appointment scheduled for January 07. There are no Patient Instructions on file for this visit. Earl Shepherd MD documented in this encounter [facility] 12-05-2024 Note HNO ID: [id number] Author: ODIN DOBBINS MD Service: ? Author Type: Physician Type: Progress Notes Filed: 12/27/2024 18:19 Note Text: Surgery/Procedure Date: 10/10/2024 Surgeon(s)/Proceduralist(s) and Tubular Stock Glass Bulb Machine Former(s): Surgeons and Role: * Odin Dobbins MD - Primary INTERVENTIONAL PROCEDURE: Ultrasound-guided left common femoral access Aorta and pelvic angiogram with CO2, radiographic interpretation Right lower extremity angiogram with CO2, radiographic interpretation Balloon angioplasty of right Mid popliteal artery with 6x60 [facility] EST[facility]LISHED CLINIC VISIT Miriam Thomas [id number] HISTORY OF PRESENT ILLNESS: Ms. Thomas is a 69 year old female seen in clinic today for follow up for PAD s/p RLE angiogram with popliteal DCB. Depression has improved from 25 to 52 status post. No new rest pain or wounds. Improved color and warmth to foot. Vascular health status: Antiplatelet / Anticoagulation: ASA 81 mg and Clopidogrel (Plavix) 75 mg Statin or PCSK9i: atorvastatin Past Vascular Surgeries: Recent Surgeries this specialty 10/10/2024 (8w) ANGIOGRAM EXTREMITY UNILATERAL RADIOLOGICAL (Right) Odin Dobbins MD - Posted 07/20/2020 (4yr) AMPUTATION BELOW KNEE EXTREMITY LOWER (Left) Stacy Salomon; Livier Garza (Res); Jeanmarie Senior (Res) - Posted 11/04/2019 (5yr) EVACUATION CLOT ARTERIAL WITH INCISION LOWER EXTREMITY (Left), EMBOLECTOMY AORTOILIAC ARTERY VIA LEG INCISION (Left), REVASC ENDOVASC PERCUT FEM/POP ART W/TRANS STENT PLAC?T W/ANGIO/W/IN THE SAME VESSEL WHEN PERFORM (Left), TRANSCATHETER THERAPY ARTERIAL INFUSION FOR THROMBOLYSIS OTHER THAN CORONARY W/ RADIOLOGICAL SUPERVISION/INTERPRETATION INITIAL TREATMENT DAY (Left), ANGIOGRAM EXTREMITY BILATERAL RADIOLOGICAL (Left), AORTOGRAM ABDOMINAL (Left) Mart Zavaleta - Posted MEDICATIONS: carvedilol (COREG) 6.25 mg tablet Take 1 tablet by mouth two times a day with meals. hydrALAZINE (APRESOLINE) 50 mg tablet Take 1 tablet by mouth two times a day. Hold for SBP less than 120mm HG gabapentin (NEURONTIN) 400 mg capsule Take 1 capsule by mouth every afternoon AND 2 capsules daily at bedtime. Do all this for 180 days. benzonatate (TESSALON PERLE) 100 mg capsule Take 1-2 capsules by mouth three times a day as needed. albuterol HFA (PROVENTIL HFA) 90 mcg/actuation inhaler Inhale 1-2 Puffs as instructed four times a day as needed for wheezing/shortness of breath. fluticasone (FLONASE) 50 mcg/actuation nasal spray Use 2 Sprays in each nostril once daily. Rinse mouth after use. clopidogrel (PLAVIX) 75 mg tablet Take 1 tablet by mouth once daily. dulaglutide (TRULICITY) 4.5 mg/0.5 mL pen injector Inject 4.5 mg subcutaneously one time a week. Gets through [facility]. insulin glargine 100 unit/mL (3 mL) Inject 26 Units subcutaneously every morning. (Basaglar) Patient assistance medication. insulin lispro (HUMALOG KWIKPEN) 100 unit/mL Inject 8 units with breakfast and 4 units with evening meal as directed. Patient assistance medication. atorvastatin (LIPITOR) 40 mg tablet Take 1 tablet by mouth daily at bedtime. For cholesterol. buPROPion XL (WELLBUTRIN XL) 150 mg 24 hr tablet Take 1 tablet by mouth once daily. tamsulosin (FLOMAX) 0.4 mg Take 2 capsules by mouth once daily. Blood-Glucose Sensor (DEXCOM G7 SENSOR) jackson Apply new sensor every ten (10) days. ciclopirox (LOPROX) 0.77 % cream Apply to affected area two times a day. For 2 to 4 weeks till rash resolves. May treat recurrences for rash under abdominal pannus acyclovir (ZOVIRAX) 400 mg tablet Take 1 tablet by mouth two times a day. blood sugar diagnostic (BLOOD GLUCOSE TEST) test strip Test blood sugar(s) 3 to 4 times daily. Dx: Other DM Code E11.51 Insulin: Yes One touch or Accucheck strips or strips covered by her insurance. Lancets Test blood sugar(s) 3 to 4 times daily. Dx: Other DM Code E11.51 Insulin: Yes clobetasol (TEMOVATE) 0.05 % ointment Apply nightly to affected area for 8-12 weeks, then 1-3x weekly for maintenance pantoprazole DR (PROTONIX) 40 mg tablet Take 1 tablet by mouth once daily. nystatin (MYCOSTATIN) powder Apply 1 application to affected area twice daily as needed. For prevention B complex w-C no.20/folic acid (B COMPLEX WITH C 20-FOLIC ACID ORAL) Take 1 tablet by mouth once daily. Magnesium Oxide 500 mg tab Take 1 tablet by mouth once daily. For constipation Blood-Glucose Meter,Continuous (DEXCOM G7 ENVELOPE SEALER) misc Use to check blood sugar at least four (4) times daily. nitroglycerin sublingual (NITROQUICK) 0.4 mg SL tablet Dissolve 1 tablet under the tongue as needed. As directed insulin needles, DISPOSABLE, (PEN NEEDLE) 31 gauge x 5/16 Use one needle per dose. 5 per day. bacitracin zinc 500 unit/gram ointment Apply to affected area twice daily. As directed for affected area till healed cetirizine (ZYRTEC) 10 mg tablet Take 1 tablet by mouth once daily a (more content not included)... [facility] 12-05-2024 History of Present illness Narrative Images from the original note were not included. Surgery/Procedure Date: 10/10/2024 Surgeon(s)/Proceduralist(s) and Tubular Stock Glass Bulb Machine Former(s): Surgeons and Role: * Odin Dobbins MD - Primary INTERVENTIONAL PROCEDURE: Ultrasound-guided left common femoral access Aorta and pelvic angiogram with CO2, radiographic interpretation Right lower extremity angiogram with CO2, radiographic interpretation Balloon angioplasty of right Mid popliteal artery with 6x60 [facility]IN[facility] VISIT Miriam Thomas [id number] HISTORY OF PRESENT ILLNESS: Ms. Thomas is a 69 year old female seen in clinic today for follow up for PAD s/p RLE angiogram with popliteal DCB. Depression has improved from 25 to 52 status post. No new rest pain or wounds. Improved color and warmth to foot. Vascular health status: Antiplatelet / Anticoagulation: ASA 81 mg and Clopidogrel (Plavix) 75 mg Statin or PCSK9i: atorvastatin Past Vascular Surgeries: Recent Surgeries this specialty 10/10/2024 (8w) ANGIOGRAM EXTREMITY UNILATERAL RADIOLOGICAL (Right) Odin Dobbins MD - Posted 07/20/2020 (4yr) AMPUTATION BELOW KNEE EXTREMITY LOWER (Left) Stacy Salomon; Livier Garza (Res); Jeanmarie Senior (Res) - Posted 11/04/2019 (5yr) EVACUATION CLOT ARTERIAL WITH INCISION LOWER EXTREMITY (Left), EMBOLECTOMY AORTOILIAC ARTERY VIA LEG INCISION (Left), REVASC ENDOVASC PERCUT FEM/POP ART W/TRANS STENT PLAC T W/ANGIO/W/IN THE SAME VESSEL WHEN PERFORM (Left), TRANSCATHETER THERAPY ARTERIAL INFUSION FOR THROMBOLYSIS OTHER THAN CORONARY W/ RADIOLOGICAL SUPERVISION/INTERPRETATION INITIAL TREATMENT DAY (Left), ANGIOGRAM EXTREMITY BILATERAL RADIOLOGICAL (Left), AORTOGRAM ABDOMINAL (Left) Mart Zavaleta - Posted MEDICATIONS: carvedilol (COREG) 6.25 mg tablet Take 1 tablet by mouth two times a day with meals. hydrALAZINE (APRESOLINE) 50 mg tablet Take 1 tablet by mouth two times a day. Hold for SBP less than 120mm HG gabapentin (NEURONTIN) 400 mg capsule Take 1 capsule by mouth every afternoon AND 2 capsules daily at bedtime. Do all this for 180 days. benzonatate (TESSALON PERLE) 100 mg capsule Take 1-2 capsules by mouth three times a day as needed. albuterol HFA (PROVENTIL HFA) 90 mcg/actuation inhaler Inhale 1-2 Puffs as instructed four times a day as needed for wheezing/shortness of breath. fluticasone (FLONASE) 50 mcg/actuation nasal spray Use 2 Sprays in each nostril once daily. Rinse mouth after use. clopidogrel (PLAVIX) 75 mg tablet Take 1 tablet by mouth once daily. dulaglutide (TRULICITY) 4.5 mg/0.5 mL pen injector Inject 4.5 mg subcutaneously one time a week. Gets through [facility]. insulin glargine 100 unit/mL (3 mL) Inject 26 Units subcutaneously every morning. (Basaglar) Patient assistance medication. insulin lispro (HUMALOG KWIKPEN) 100 unit/mL Inject 8 units with breakfast and 4 units with evening meal as directed. Patient assistance medication. atorvastatin (LIPITOR) 40 mg tablet Take 1 tablet by mouth daily at bedtime. For cholesterol. buPROPion XL (WELLBUTRIN XL) 150 mg 24 hr tablet Take 1 tablet by mouth once daily. tamsulosin (FLOMAX) 0.4 mg Take 2 capsules by mouth once daily. Blood-Glucose Sensor (DEXCOM G7 SENSOR) jackson Apply new sensor every ten (10) days. ciclopirox (LOPROX) 0.77 % cream Apply to affected area two times a day. For 2 to 4 weeks till rash resolves. May treat recurrences for rash under abdominal pannus acyclovir (ZOVIRAX) 400 mg tablet Take 1 tablet by mouth two times a day. blood sugar diagnostic (BLOOD GLUCOSE TEST) test strip Test blood sugar(s) 3 to 4 times daily. Dx: Other DM Code E11.51 Insulin: Yes One touch or Accucheck strips or strips covered by her insurance. Lancets Test blood sugar(s) 3 to 4 times daily. Dx: Other DM Code E11.51 Insulin: Yes clobetasol (TEMOVATE) 0.05 % ointment Apply nightly to affected area for 8-12 weeks, then 1-3x weekly for maintenance pantoprazole DR (PROTONIX) 40 mg tablet Take 1 tablet by mouth once daily. nystatin (MYCOSTATIN) powder Apply 1 application to affected area twice daily as needed. For prevention B complex w-C no.20/folic acid (B COMPLEX WITH C 20-FOLIC ACID ORAL) Take 1 tablet by mouth once daily. Magnesium Oxide 500 mg tab Take 1 tablet by mouth once daily. For constipation Blood-Glucose Meter,Continuous (DEXCOM G7 ENVELOPE SEALER) [facility] Use to check blood sugar at least four (4) times daily. nitroglycerin sublingual (NITROQUICK) 0.4 mg SL tablet Dissolve 1 tablet under the tongue as needed. As directed insulin needles, DISPOSABLE, (PEN NEEDLE) 31 gauge x /16 Use one needle per dose. 5 per day. bacitracin zinc 500 unit/gram ointment Apply to affected area twice daily. As directed for affected area till healed cetirizine (ZYRTEC) 10 mg tablet Take 1 tablet by mouth once daily as needed. aspirin, enteric coated (ASPIRIN, ENTERIC COATED) 81 mg EC tablet Take 1 tablet by mouth once daily. cyanocobalamin, vitamin B-12, 5,000 mcg subl Dissolve under the tongue once daily. ascorbic acid, vitamin C, (VITAMIN C) 500 mg tablet Take 1,000 mg by mouth once daily. polyethylene glycol 3350 (MIRALAX) 17 gram/dose powder Take 17 g by mouth as directed. guaifenesin/pseudoephedrne HCl (MUCINEX D ORAL) Take by mouth. Saccharomyces boulardii (FLORASTOR) 250 mg capsule Take 1 capsule by mouth two times a day. predniSONE (DELTASONE) 10 mg tablet Take 40 mg x 3 days, 20 mg x 3 days, 10 mg x 3 days. Take with food, once daily escitalopram oxalate (LEXAPRO) 20 mg tablet Take 1 tablet by mouth once daily. biotin 5,000 mcg ODT Take 1 tablet by mouth once daily. SOCIAL HISTORY: Social History Tobacco Use Smoking status: Never Smokeless tobacco: Never Vaping Use Vaping status: Never Used Substance Use Topics Alcohol use: Yes Comment: Rarely Drug use: No PAST MEDICAL HISTORY: PAST MEDICAL HISTORY Diagnosis Date Anxiety Arthritis Depression MARITZA exposure in utero Diabetes mellitus ([facility]) 1986 Diabetic neuropathy ([facility]) Gangrene ([facility]) Heart attack ([facility]) [address] [employer] [address] Adalberto Power [place] Herniated disc Hypertension Muscular deconditioning PVD (peripheral vascular disease) ([facility]) 10/2019 S/P BKA (below knee amputation) unilateral, left ([facility]) Sleep apnea cpap Snoring Stroke ([facility]) 11/2004 and 05/2005 x 2, right sided weakness PAST SURGICAL HISTORY: PAST SURGICAL HISTORY Procedure Laterality Date AMPUTATION OF LOWER LEG Left 07/20/2020 L BKA ANESTH,BRACHIAL/FEMORAL ARTERIOGRAM Left 11/04/2019 Left femoral arteriogram with stenting of left superficial femoral artery. Attempted left popliteal artery thromboembolectomy. Left anterior tibial thromboembolectomy @ [facility] by Dr. Zavaleta ANGIO ABDOMINAL AORTA LOW EXTR 10/10/2024 1. Aorta and pelvic angiogram with CO2, radiographic interpretation 2. Right lower extremity angiogram with CO2, radiographic interpretation 3. Balloon angioplasty of right Mid popliteal artery with 6x60 IN.PACT AORTOGRAM AND LEG RUNOFF 11/04/2019 1. Abdominal aortogram with bilateral selective lower extremity carbon dioxide runoff @ [facility] by Dr Zavaleta DELIVERY ONLY 1980, 1983, 1985 , low transverse, x 3 COLONOSCOPY FLX DX W/COLLJ SPEC WHEN PFRMD 02/17/2016 Colonoscopy (MAC) ESOPHAGOGASTRODUODENOSCOPY TRANSORAL DIAGNOSTIC 11/26/2017 EGD ESOPHAGOGASTRODUODENOSCOPY TRANSORAL DIAGNOSTIC 01/14/2018 EGD PAST SURGICAL HISTORY OF last one in 2006 D&C, multiple x4 PAST SURGICAL HISTORY OF Left 2000 ganglion cyst removed left wrist PAST SURGICAL HISTORY OF Bilateral 07/2013 cataracts TRANSMETATARSAL AMPUTATION/O&P Left 12/12/2019 Transmetatarsal amputation with tendoachilles lengthening left lower extremity ALLERGIES: ALLERGIES Allergen Reactions Meloxicam GI Upset Sulfa (Sulfonamide * Swelling Facial swelling, shortness of breath. Targeted ROS Comprehensive system review of systems did not reveal any pertinent positives or negatives except per HPI PHYSICAL EXAM: Focused Physical Exam: BP 118/52 Pulse 71 SpO2 94% General: WDWN in NAD Pulmonary: Non-labored on RA Coronary: Regular rate, no CAMERON or JVD Extremities: Normal range of motion Vascular: Strong biphasic right popliteal, PT, DP DIAGNOSTIC TESTS REVIEWED FOR TODAY'S VISIT: Most recent labs and imaging results IMAGING RESULTS: 11/12/2024 Arterial duplex and PVR 09/22/2025 PVR right digit pressure index at 0.15 absolute pressure 25 ASSESSMENT AND PLAN: Miriam Thomas is a 69 year old female seen in follow up for PAD status post right lower extremity angiogram with intervention. Doing well postoperatively without rest pain or wound. Noted improved warmth, odor and the patient to right foot. We discussed the options for management and all questions answered, Ms. Thomas reflected understanding and agreement to the plan as outlined below. -Continue DAPT for 6 months and aspirin 81 mg indefinitely as well as high-dose statin at direction of PCP - Follow up in 6 months with repeat testing, sooner if symptoms develop or worsen. Odin Dobbins MD Vascular Surgery Staff 12/05/2024 documented in this encounter [facility] 11-20-2024 Note HNO ID: [id number] Author: LETI ROGER DPM Service: ? Author Type: Physician Type: Progress Notes Filed: 11/20/2024 17:30 Note Text: Chief Complaint: Right 2nd digit wound/discoloration HPI: This 69 year old female with PMH indicated below presents for follow up right foot. Patient has missed or cancelled last appointments due to weather and then pneumonia. States that did have surgery with vascular, Dr Dobbins on 10/10/24 with balloon angioplasty of the popliteal right LE. States that foot has been improving since that time. Coloration has improved. Did have MRI completed. States that was on a couple rounds of antibiotics for her pneumonia. States she has been ambulating in normal shoe gear. She denies constitutional symptoms at this time. No other pedal complaints. Last HgbA1c% is 5.7% PCP: Earl Shepherd MD: PAST MEDICAL HISTORY Diagnosis Date Anxiety Arthritis Depression MARITZA exposure in utero Diabetes mellitus ([facility]) 1986 Diabetic neuropathy ([facility]) Gangrene ([facility]) Heart attack ([facility]) [address] Glover Marcelle [place] Herniated disc Hypertension Muscular deconditioning PVD (peripheral vascular disease) ([facility]) 10/2019 S/P BKA (below knee amputation) unilateral, left ([facility]) Sleep apnea cpap Snoring Stroke ([facility]) 11/2004 and 05/2005 x 2, right sided weakness : Current Outpatient Medications Medication Sig carvedilol (COREG) 6.25 mg tablet Take 1 tablet by mouth two times a day with meals. hydrALAZINE (APRESOLINE) 50 mg tablet Take 1 tablet by mouth two times a day. Hold for SBP less than 120mm HG gabapentin (NEURONTIN) 400 mg capsule Take 1 capsule by mouth every afternoon AND 2 capsules daily at bedtime. Do all this for 180 days. guaifenesin/pseudoephedrne HCl (MUCINEX D ORAL) Take by mouth. Saccharomyces boulardii (FLORASTOR) 250 mg capsule Take 1 capsule by mouth two times a day. predniSONE (DELTASONE) 10 mg tablet Take 40 mg x 3 days, 20 mg x 3 days, 10 mg x 3 days. Take with food, once daily benzonatate (TESSALON PERLE) 100 mg capsule Take 1-2 capsules by mouth three times a day as needed. albuterol HFA (PROVENTIL HFA) 90 mcg/actuation inhaler Inhale 1-2 Puffs as instructed four times a day as needed for wheezing/shortness of breath. fluticasone (FLONASE) 50 mcg/actuation nasal spray Use 2 Sprays in each nostril once daily. Rinse mouth after use. clopidogrel (PLAVIX) 75 mg tablet Take 1 tablet by mouth once daily. dulaglutide (TRULICITY) 4.5 mg/0.5 mL pen injector Inject 4.5 mg subcutaneously one time a week. Gets through [employer]. insulin glargine 100 unit/mL (3 mL) Inject 26 Units subcutaneously every morning. (Basaglar) Patient assistance medication. insulin lispro (HUMALOG KWIKPEN) 100 unit/mL Inject 8 units with breakfast and 4 units with evening meal as directed. Patient assistance medication. escitalopram oxalate (LEXAPRO) 20 mg tablet Take 1 tablet by mouth once daily. atorvastatin (LIPITOR) 40 mg tablet Take 1 tablet by mouth daily at bedtime. For cholesterol. buPROPion XL (WELLBUTRIN XL) 150 mg 24 hr tablet Take 1 tablet by mouth once daily. tamsulosin (FLOMAX) 0.4 mg Take 2 capsules by mouth once daily. Blood-Glucose Sensor (Planspot G7 SENSOR) jackson Apply new sensor every ten (10) days. ciclopirox (LOPROX) 0.77 % cream Apply to affected area two times a day. For 2 to 4 weeks till rash resolves. May treat recurrences for rash under abdominal pannus acyclovir (ZOVIRAX) 400 mg tablet Take 1 tablet by mouth two times a day. blood sugar diagnostic (BLOOD GLUCOSE TEST) test strip Test blood sugar(s) 3 to 4 times daily. Dx: Other DM Code E11.51 Insulin: Yes One touch or Accucheck strips or strips covered by her insurance. Lancets Test blood sugar(s) 3 to 4 times daily. Dx: Other DM Code E11.51 Insulin: Yes clobetasol (TEMOVATE) 0.05 % ointment Apply nightly to affected area for 8-12 weeks, then 1-3x weekly for maintenance pantoprazole DR (PROTONIX) 40 mg tablet Take 1 tablet by mouth once daily. nystatin (MYCOSTATIN) powder Apply 1 application to affected area twice daily as needed. For prevention B complex w-C no.20/folic acid (B COMPLEX WITH C 20-FOLIC ACID ORAL) Take 1 tablet by mouth once daily. Magnesium Oxide 500 mg tab Take 1 tablet by mouth once daily. For constipation Blood-Glucose Meter,Continuous (DEXCOM G7 ENVELOPE SEALER) misc Use to check blood sugar at least four (4) times daily. nitroglycerin sublingual (NITROQUICK) 0.4 mg SL tablet Dissolve 1 tablet under the tongue as needed. As directed insulin needles, DISPOSABLE, (PEN NEEDLE) 31 gauge x 5/16 Use one needle per dose. 5 per day. bacitracin zinc 500 unit/gram ointment Apply to affected area twice daily. As directed for affected area till healed cetirizine (ZYRTEC) 10 mg tablet Take 1 tablet by mouth once daily as needed. aspirin, enteric coated (ASPIRIN, ENTERIC COATED) 81 mg EC tablet Take 1 tablet by mouth once daily. cyanocob (more content not included)... [facility] 11-20-2024 History of Present illness Narrative Chief Complaint: Right 2nd digit wound/discoloration HPI: This 69 year old female with PMH indicated below presents for follow up right foot. Patient has missed or cancelled last appointments due to weather and then pneumonia. States that did have surgery with vascular, Dr Dobbins on 10/10/24 with balloon angioplasty of the popliteal right LE. States that foot has been improving since that time. Coloration has improved. Did have MRI completed. States that was on a couple rounds of antibiotics for her pneumonia. States she has been ambulating in normal shoe gear. She denies constitutional symptoms at this time. No other pedal complaints. Last HgbA1c% is 5.7% PCP: Earl Shepherd MD: PAST MEDICAL HISTORY Diagnosis Date Anxiety Arthritis Depression MARITZA exposure in utero Diabetes mellitus (HCC) 1986 Diabetic neuropathy (HCC) Gangrene (HCC) Heart attack (HCC) [address] [address] Adalberto Power [place] Herniated disc Hypertension Muscular deconditioning PVD (peripheral vascular disease) ([facility]) 10/2019 S/P BKA (below knee amputation) unilateral, left ([facility]) Sleep apnea cpap Snoring Stroke ([facility]) 11/2004 and 05/2005 x 2, right sided weakness : Current Outpatient Medications Medication Sig carvedilol (COREG) 6.25 mg tablet Take 1 tablet by mouth two times a day with meals. hydrALAZINE (APRESOLINE) 50 mg tablet Take 1 tablet by mouth two times a day. Hold for SBP less than 120mm HG gabapentin (NEURONTIN) 400 mg capsule Take 1 capsule by mouth every afternoon AND 2 capsules daily at bedtime. Do all this for 180 days. guaifenesin/pseudoephedrne HCl (MUCINEX D ORAL) Take by mouth. Saccharomyces boulardii (FLORASTOR) 250 mg capsule Take 1 capsule by mouth two times a day. predniSONE (DELTASONE) 10 mg tablet Take 40 mg x 3 days, 20 mg x 3 days, 10 mg x 3 days. Take with food, once daily benzonatate (TESSALON PERLE) 100 mg capsule Take 1-2 capsules by mouth three times a day as needed. albuterol HFA (PROVENTIL HFA) 90 mcg/actuation inhaler Inhale 1-2 Puffs as instructed four times a day as needed for wheezing/shortness of breath. fluticasone (FLONASE) 50 mcg/actuation nasal spray Use 2 Sprays in each nostril once daily. Rinse mouth after use. clopidogrel (PLAVIX) 75 mg tablet Take 1 tablet by mouth once daily. dulaglutide (TRULICITY) 4.5 mg/0.5 mL pen injector Inject 4.5 mg subcutaneously one time a week. Gets through [facility]. insulin glargine 100 unit/mL (3 mL) Inject 26 Units subcutaneously every morning. (Basaglar) Patient assistance medication. insulin lispro (HUMALOG KWIKPEN) 100 unit/mL Inject 8 units with breakfast and 4 units with evening meal as directed. Patient assistance medication. escitalopram oxalate (LEXAPRO) 20 mg tablet Take 1 tablet by mouth once daily. atorvastatin (LIPITOR) 40 mg tablet Take 1 tablet by mouth daily at bedtime. For cholesterol. buPROPion XL (WELLBUTRIN XL) 150 mg 24 hr tablet Take 1 tablet by mouth once daily. tamsulosin (FLOMAX) 0.4 mg Take 2 capsules by mouth once daily. Blood-Glucose Sensor (DEXCOM G7 SENSOR) jackson Apply new sensor every ten (10) days. ciclopirox (LOPROX) 0.77 % cream Apply to affected area two times a day. For 2 to 4 weeks till rash resolves. May treat recurrences for rash under abdominal pannus acyclovir (ZOVIRAX) 400 mg tablet Take 1 tablet by mouth two times a day. blood sugar diagnostic (BLOOD GLUCOSE TEST) test strip Test blood sugar(s) 3 to 4 times daily. Dx: Other DM Code E11.51 Insulin: Yes One touch or Accucheck strips or strips covered by her insurance. Lancets Test blood sugar(s) 3 to 4 times daily. Dx: Other DM Code E11.51 Insulin: Yes clobetasol (TEMOVATE) 0.05 % ointment Apply nightly to affected area for 8-12 weeks, then 1-3x weekly for maintenance pantoprazole DR (PROTONIX) 40 mg tablet Take 1 tablet by mouth once daily. nystatin (MYCOSTATIN) powder Apply 1 application to affected area twice daily as needed. For prevention B complex w-C no.20/folic acid (B COMPLEX WITH C 20-FOLIC ACID ORAL) Take 1 tablet by mouth once daily. Magnesium Oxide 500 mg tab Take 1 tablet by mouth once daily. For constipation Blood-Glucose Meter,Continuous (DEXCOM G7 ENVELOPE SEALER) misc Use to check blood sugar at least four (4) times daily. nitroglycerin sublingual (NITROQUICK) 0.4 mg SL tablet Dissolve 1 tablet under the tongue as needed. As directed insulin needles, DISPOSABLE, (PEN NEEDLE) 31 gauge x 5/16 Use one needle per dose. 5 per day. bacitracin zinc 500 unit/gram ointment Apply to affected area twice daily. As directed for affected area till healed cetirizine (ZYRTEC) 10 mg tablet Take 1 tablet by mouth once daily as needed. aspirin, enteric coated (ASPIRIN, ENTERIC COATED) 81 mg EC tablet Take 1 tablet by mouth once daily. cyanocobalamin, vitamin B-12, 5,000 mcg subl Dissolve under the tongue once daily. ascorbic acid, vitamin C, (VITAMIN C) 500 mg tablet Take 1,000 mg by mouth once daily. biotin 5,000 mcg ODT Take 1 tablet by mouth once daily. polyethylene glycol 3350 (MIRALAX) 17 gram/dose powder Take 17 g by mouth as directed. No current facility-administered medications for this visit. : ALLERGIES Allergen Reactions Meloxicam GI Upset Sulfa (Sulfonamide * Swelling Facial swelling, shortness of breath. : REVIEW OF SYSTEMS See tech note MSK: + as noted in HPI. Physical Exam: Patient is alert and oriented x 3 in NAD. Patient is a 69 year old female who appears well developed, well nourished and with good attention to hygiene and body habitus. Resp 18 Ht 157.5 cm (5' 2) Wt 82.1 kg (181 lb) BMI 33.11 kg/m Right lower extremity focused examination, left below-knee amputation. Vascular: DP and PT pulses are nonpalpable. CFT less than 5 seconds to all digits. Skin temperature is warm to warm from proximal to distal. Hair growth is absent. No significant edema. No varicosities noted. No increase in warmth noted to the right second digit Neuro: Light touch intact. Protective sensation absent pedal sites via [place] 5.07 monofilament. Derm: Skin texture and turgor within normal limits. Toenails 1 through 5 of the right foot are mildly elongated. Webspaces 1-4 clean, dry, intact. Small area of hemorrhagic tissue to the distal medial aspect of the right distal tip of the hallux. Loose eschar noted to the distal tip of the second digit under the nail plate. Upon debridement, no wound is noted. Intact skin underlying. Previously noted purpura discoloration noted to the distal tip of the third digit right foot has resolved. No drainage noted. No malodor. No exposed bone or tendon. No cellulitis. No acute signs of infection. Musculoskeletal/Orthopaedic: General foot morphology: Decreased medial longitudinal arch +5/5 muscle strength Dorsiflexion, Plantarflexion, Inversion, Eversion ROM of the 1st MTPJ is decreased without pain or crepitus. ROM of the MTJ/STJ is decreased without pain or crepitus. Ankle joint ROM is decreased no pain on palpation to the right second digit BKA left LE PVR: 11/12/2024 INDINGS -------- RIGHT SIDE AT REST Right Doppler Waveforms Dorsalis pedis: Monophasic. Right Pressures Brachial: 165 mmHg Ankle dorsalis pedis: 255 mmHg AYDEE: 1.55 Non-compressible arteries. Ankle posterior tibial: 255 mmHg AYDEE: 1.55 Non-compressible arteries. Digit: 52 mmHg Right PVR Waveforms Ankle: Mildly dampened. Digit: Mildly dampened. LEFT SIDE AT REST Left Pressures Brachial: 162 mmHg Left PVR Waveforms Ankle: Below knee amputation. IMPRESSION RIGHT SIDE Resting right ankle brachial index: 1.55 Non-compressible arteries, AYDEE not accurate. Right toe brachial index: 0.32 Non-compressible vessels, results called by PVR tracings. Abnormal toe brachial index at rest is evidence of peripheral artery disease. Right ankle: Mild disease at rest. LEFT SIDE Resting left ankle brachial index: Below knee amputation. MRI right foot: 10/09/2024 IMPRESSION: 1. Marrow signal abnormality in the tuft of the second toe consistent with osteomyelitis. 2. Marrow signal abnormality in the the third toe tuft, nonspecific, and can be seen with early osteomyelitis. 3. Minimal marrow signal changes in the saulo of the first, fourth and fifth toes likely reactive in nature. Radiographs: 3 views right foot were obtained and evaluated Radiographic evaluation: Area of bony lysis to the distal 2nd digit distal phalanx is again noted without significant change. + significant vascular calcifications are noted. Degenerative changes noted to the 1st MTPJ and midfoot. ASSESSMENT: This 69 year old female patient presents today with PAD, status post left lower extremity BKA, with healed wounds to the 2nd toe, and eschar hallux Plan: - A history and physical examination were preformed. The patient was educated on clinical and radiographic findings, diagnosis and treatment plans. Patient state that she understands all that has been explained and all questions were answered to her apparent satisfaction. - Etiology and treatment options were discussed with the patient. -Patient appears much improved today. No open wounds - Reviewed MRI with patient. Question of osteomyelitis to distal phalanx of 2nd toe - xrays appear stable and wound has healed. May have been ischemic necrosis. Will obtain ESR, CRP and CBC for screening. -Educated on signs and symptoms to watch for and instructed to call if any should arise. Follow-up 3-4 weeks. Consider repeat MRI pending clinical eval Leti Roger DPM documented in this encounter [facility] 11-20-2024 Note Radiographs: 3 views right foot were obtained and evaluated Radiographic evaluation: Area of bony lysis to the distal 2nd digit distal phalanx is again noted without significant change. + significant vascular calcifications are noted. Degenerative changes noted to the 1st MTPJ and midfoot. [facility] 11-20-2024 Telephone encounter Note The following approved medication requests have been transmitted electronically. Requested Prescriptions Pending Prescriptions Disp Refills carvedilol (COREG) 6.25 mg tablet 180 tablet 3 Sig: Take 1 tablet by mouth two times a day with meals. Earl Shepherd MD [facility] 11-20-2024 Miscellaneous Notes The following approved medication requests have been transmitted electronically. Requested Prescriptions Pending Prescriptions Disp Refills carvedilol (COREG) 6.25 mg tablet 180 tablet 3 Sig: Take 1 tablet by mouth two times a day with meals. Earl Shepherd MD Patient has been identified by name and date of : Yes Patient phones for refill(s): Requested Prescriptions Pending Prescriptions Disp Refills carvedilol (COREG) 6.25 mg tablet 180 tablet 3 Sig: Take 1 tablet by mouth two times a day with meals. Date of last office visit in primary care: 11/03/2024 Date of next office visit in primary care: 12/19/2024 Please advise. Thank you. Didi Chawla LPN.\ documented in this encounter [facility] 11-20-2024 Telephone encounter Note Patient has been identified by name and date of : Yes Patient phones for refill(s): Requested Prescriptions Pending Prescriptions Disp Refills carvedilol (COREG) 6.25 mg tablet 180 tablet 3 Sig: Take 1 tablet by mouth two times a day with meals. Date of last office visit in primary care: 11/03/2024 Date of next office visit in primary care: 12/19/2024 Please advise. Thank you. Didi Chawla LPN.\ [facility] 11-06-2024 Telephone encounter Note Sent as noted how patient taking it Correct me if wrong The following approved medication requests have been transmitted electronically. Requested Prescriptions Signed Prescriptions Disp Refills gabapentin (NEURONTIN) 400 mg capsule 270 capsule 1 Sig: Take 1 capsule by mouth every afternoon AND 2 capsules daily at bedtime. Do all this for 180 days. Authorizing Provider: EARL SHEPHERD MD [facility] 11-06-2024 Miscellaneous Notes Sent as noted how patient taking it Correct me if wrong The following approved medication requests have been transmitted electronically. Requested Prescriptions Signed Prescriptions Disp Refills gabapentin (NEURONTIN) 400 mg capsule 270 capsule 1 Sig: Take 1 capsule by mouth every afternoon AND 2 capsules daily at bedtime. Do all this for 180 days. Authorizing Provider: EARL SHEPHERD MD The patient has been identified by name and date of : Yes Caregiver verified no other encounters exist for this prescription request: Yes Caregiver confirmed with patient/requestor that no other refills are due, in the near future, with this provider at this time: Yes The last office visit in the department: 11/03/2024 Does the patient have a future office visit with this provider/department: Yes 11/10/2024 Requested Prescriptions Pending Prescriptions Disp Refills gabapentin (NEURONTIN) 400 mg capsule 270 capsule 1 Sig: Take 1 capsule by mouth in the afternoon AND 2 capsules daily at bedtime. Do all this for 90 days. Elana Paredes LPN November 06, 2024 7:50 AM documented in this encounter [facility] 11-06-2024 Telephone encounter Note The following approved medication requests have been transmitted electronically. Requested Prescriptions Signed Prescriptions Disp Refills hydrALAZINE (APRESOLINE) 50 mg tablet 180 tablet 3 Sig: Take 1 tablet by mouth two times a day. Hold for SBP less than 120mm HG Authorizing Provider: EARL SHEPHERD MD [facility] 11-06-2024 Miscellaneous Notes The following approved medication requests have been transmitted electronically. Requested Prescriptions Signed Prescriptions Disp Refills hydrALAZINE (APRESOLINE) 50 mg tablet 180 tablet 3 Sig: Take 1 tablet by mouth two times a day. Hold for SBP less than 120mm HG Authorizing Provider: EARL SHEPHERD MD documented in this encounter [facility] 11-06-2024 Telephone encounter Note The patient has been identified by name and date of : Yes Caregiver verified no other encounters exist for this prescription request: Yes Caregiver confirmed with patient/requestor that no other refills are due, in the near future, with this provider at this time: Yes The last office visit in the department: 11/03/2024 Does the patient have a future office visit with this provider/department: Yes 11/10/2024 Requested Prescriptions Pending Prescriptions Disp Refills gabapentin (NEURONTIN) 400 mg capsule 270 capsule 1 Sig: Take 1 capsule by mouth in the afternoon AND 2 capsules daily at bedtime. Do all this for 90 days. Elana Paredes LPN November 06, 2024 7:50 AM [facility] 11-03-2024 History of Present illness Narrative Radiology Service Progress Note PATIENT NAME: Miriam Thomas DATE OF SERVICE: November 03, 2024 TIME: 3:08 PM PATIENT IDENTITY VERIFICATION COMPLETED USING TWO (2) IDENTIFIERS: Name and Date of confirmed by patient verbally. FALL SCREENING: Has the patient had 2 falls in the last year or 1 fall with injury or currently using an Ambulatory Assistive Device (Walker, Cane, Wheelchair, Crutches, etc.)? Yes, Patient High Risk for Falls What interventions were put in place to prevent falls during this visit? Offered Assistance with Transfers/Clothing, Instructed Patient to Remain Seated (Not on Exam Table) Until Exam, and Increased Observations by Caregivers PATIENT GENDER DATA: Assigned female at . status: : No status: NO. PATIENT RELEVANT IMPLANT DATA REVIEWED: Not Applicable PATIENT PRESENTS WITH AN IMPLANTABLE OR ATTACHED URGENT CARE: No RADIOLOGY DEPARTMENT: General X-ray: Exam(s) Completed: Chest X-Ray PERIPHERAL IV DATA: Not applicable SIGNED BY: Myron Quiroga November 03, 2024 3:08 PM documented in this encounter [facility] 11-03-2024 Note HNO ID: [id number] Author: RHONA ESTEVEZ Tech Service: ? Author Type: Technologist Type: Progress Notes Filed: 11/03/2024 15:09 Note Text: Radiology Service Progress Note PATIENT NAME: Miriam Thomas DATE OF SERVICE: November 03, 2024 TIME: 3:08 PM PATIENT IDENTITY VERIFICATION COMPLETED USING TWO (2) IDENTIFIERS: Name and Date of confirmed by patient verbally. FALL SCREENING: Has the patient had 2 falls in the last year or 1 fall with injury or currently using an Ambulatory Assistive Device (Walker, Cane, Wheelchair, Crutches, etc.)? Yes, Patient High Risk for Falls What interventions were put in place to prevent falls during this visit? Offered Assistance with Transfers/Clothing, Instructed Patient to Remain Seated (Not on Exam Table) Until Exam, and Increased Observations by Caregivers PATIENT GENDER DATA: Assigned female at . status: : No status: NO. PATIENT RELEVANT IMPLANT DATA REVIEWED: Not Applicable PATIENT PRESENTS WITH AN IMPLANTABLE OR ATTACHED URGENT CARE: No RADIOLOGY DEPARTMENT: General X-ray: Exam(s) Completed: Chest X-Ray PERIPHERAL IV DATA: Not applicable SIGNED BY: Myron Quiroga November 03, 2024 3:08 PM [facility] 11-03-2024 Note HNO ID: [id number] Author: NICHELLE VILLATORO APRN.[employer] Service: ? Author Type: Nurse Specialist Type: Progress Notes Filed: 11/03/2024 16:07 Note Text: SUBJECTIVE: Pneumococcal Vaccine: 50+(2 of 2 - PCV) due on 10/01/2005 RSV Vaccine(1 - Risk 60-74 years 1-dose series) Never done DTaP,Tdap,Td Vaccine(2 - Td or Tdap) due on 10/01/2018 Influenza Vaccine(1) due on 06/01/2024 Diabetic Foot Exam due on 06/13/2024 Advance Directive Discussion due on 10/01/2024 HPI Miriam Thomas is a 69 year old female. 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 ([facility]) Recurrent Major Depression in Partial Remission ([facility]) Functional Dyspepsia Gastroesophageal Reflux Disease Diabetic Gastroparesis ([facility]) ([facility]) Lichen Sclerosus Type 2 Diabetes Mellitus With Diabetic Peripheral Angiopathy and Gangrene, With Long-Term Current Use of Insulin ([facility]) Obesity, Class I, Bmi 30-34.9 Leukocytosis Type 2 Diabetes Mellitus With Stage 3b Chronic Kidney Disease, With Long-Term Current Use of Insulin ([facility]) Hx of Bka, Left ([facility]) Urinary Retention Muscular Deconditioning Moderate Episode of Recurrent Major Depressive Disorder ([facility]) Hypertensive Ckd (Chronic Kidney Disease) Jose (Obstructive Sleep Apnea) Presents for a follow-up visit regarding pneumonia. Since last seen she underwent lower extremity angiogram 10/10/2024 wit Odin Dobbins MD at [facility]. Seen at [facility] 10/23/2024 for an acute cough. Chest x-ray completed and concerning for pneumonia, patchy left lower lobe opacities. She was treated with doxycycline and Augmentin. Today notes she continues to cough a lot, disrupting sleep. Unable to sleep in her bed due to coughing. Has been sleeping in a recliner. Currently without fever. Notes shortness of breath on exertion. No orthopnea. No current wheezing. Some ear fullness. No pain. Has completed antibiotics. Notes some loose stools/diarrhea with this. No history of asthma or COPD. S Uses CGM, glucose has been well-controlled. Uses CGM, glucose has been well controlled. Patient's last HgA1C was Hemoglobin A1C (%) Date Value 06/13/2024 6.1 12/11/2023 6.1 05/09/2021 5.4 06/09/2020 6.3 ) Last 3 Encounter BP Readings: Date: BP: 10/23/2024 102/67 10/09/2024 132/66 09/30/2024 159/70 Review of Systems Constitutional: Negative. Objective BP 118/70 Pulse 80 Resp 16 Physical Exam Vitals and nursing note reviewed. Constitutional: Appearance: Normal appearance. HENT: Head: Normocephalic and atraumatic. Right Ear: Tympanic membrane and ear canal normal. Left Ear: Ear canal normal. A middle ear effusion (serous) is present. Nose: Mucosal edema present. Mouth/Throat: Lips: [place]. Mouth: Mucous membranes are moist. Pharynx: Oropharynx is clear. Tonsils: No tonsillar exudate. Eyes: Conjunctiva/sclera: Conjunctivae normal. Cardiovascular: Rate and Rhythm: Normal rate and regular rhythm. Heart sounds: Normal heart sounds. Pulmonary: Effort: Pulmonary effort is normal. Breath sounds: Normal breath sounds. Skin: General: Skin is warm and dry. Neurological: General: No focal deficit present. Mental Status: She is alert and oriented to person, place, and time. ALLERGIES Allergen Reactions Meloxicam GI Upset Sulfa (Sulfonamide * Swelling Facial swelling, shortness of breath. Medications guaifenesin/pseudoephedrne HCl (MUCINEX D ORAL) Take by mouth. benzonatate (TESSALON PERLE) 100 mg capsule Take 1-2 capsules by mouth three times a day as needed. albuterol HFA (PROVENTIL HFA) 90 mcg/actuation inhaler Inhale 1-2 Puffs as instructed four times a day as needed for wheezing/shortness of breath. fluticasone (FLONASE) 50 mcg/actuation nasal spray Use 2 Sprays in each nostril once daily. Rinse mouth after use. clopidogrel (PLAVIX) 75 mg tablet Take 1 tablet by mouth once daily. dulaglutide (TRULICITY) 4.5 mg/0.5 mL pen injector Inject 4.5 mg subcutaneously one time a week. Gets through [facility]. insulin glargine 100 unit/mL (3 mL) Inject 26 Units subcutaneously every morning. (Basaglar) Patient assistance medication. insulin lispro (HUMALOG KWIKPEN) 100 unit/mL Inject 8 units with breakfast and 4 units with evening meal as directed. Patient assistance medication. escitalopram oxalate (LEXAPRO) 20 mg tablet Take 1 tablet by mouth once daily. atorvastatin (LIPITOR) 40 mg tablet Take 1 tablet by mouth daily at bedtime. For cholesterol. buPROPion XL (WELLBUTRIN XL) 150 mg 24 hr (more content not included)... [facility] 11-03-2024 History of Present illness Narrative SUBJECTIVE: Pneumococcal Vaccine: 50+(2 of 2 - PCV) due on 10/01/2005 RSV Vaccine(1 - Risk 60-74 years 1-dose series) Never done DTaP,Tdap,Td Vaccine(2 - Td or Tdap) due on 10/01/2018 Influenza Vaccine(1) due on 06/01/2024 Diabetic Foot Exam due on 06/13/2024 Advance Directive Discussion due on 10/01/2024 HPI Miriam Thomas is a 69 year old female. 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 ([facility]) Recurrent Major Depression in Partial Remission ([facility]) Functional Dyspepsia Gastroesophageal Reflux Disease Diabetic Gastroparesis ([facility]) ([facility]) Lichen Sclerosus Type 2 Diabetes Mellitus With Diabetic Peripheral Angiopathy and Gangrene, With Long-Term Current Use of Insulin (Hcc) Obesity, Class I, Bmi 30-34.9 Leukocytosis Type 2 Diabetes Mellitus With Stage 3b Chronic Kidney Disease, With Long-Term Current Use of Insulin (Hcc) Hx of Bka, Left (Hcc) Urinary Retention Muscular Deconditioning Moderate Episode of Recurrent Major Depressive Disorder (Hcc) Hypertensive Ckd (Chronic Kidney Disease) Jose (Obstructive Sleep Apnea) Presents for a follow-up visit regarding pneumonia. Since last seen she underwent lower extremity angiogram 10/10/2024 wit Odin Dobbins MD at [facility]. Seen at [facility] 10/23/2024 for an acute cough. Chest x-ray completed and concerning for pneumonia, patchy left lower lobe opacities. She was treated with doxycycline and Augmentin. Today notes she continues to cough a lot, disrupting sleep. Unable to sleep in her bed due to coughing. Has been sleeping in a recliner. Currently without fever. Notes shortness of breath on exertion. No orthopnea. No current wheezing. Some ear fullness. No pain. Has completed antibiotics. Notes some loose stools/diarrhea with this. No history of asthma or COPD. S Uses CGM, glucose has been well-controlled. Uses CGM, glucose has been well controlled. Patient's last HgA1C was Hemoglobin A1C (%) Date Value 06/13/2024 6.1 12/11/2023 6.1 05/09/2021 5.4 06/09/2020 6.3 ) Last 3 Encounter BP Readings: Date: BP: 10/23/2024 102/67 10/09/2024 132/66 09/30/2024 159/70 Review of Systems Constitutional: Negative. Objective BP 118/70 Pulse 80 Resp 16 Physical Exam Vitals and nursing note reviewed. Constitutional: Appearance: Normal appearance. HENT: Head: Normocephalic and atraumatic. Right Ear: Tympanic membrane and ear canal normal. Left Ear: Ear canal normal. A middle ear effusion (serous) is present. Nose: Mucosal edema present. Mouth/Throat: Lips: [place]. Mouth: Mucous membranes are moist. Pharynx: Oropharynx is clear. Tonsils: No tonsillar exudate. Eyes: Conjunctiva/sclera: Conjunctivae normal. Cardiovascular: Rate and Rhythm: Normal rate and regular rhythm. Heart sounds: Normal heart sounds. Pulmonary: Effort: Pulmonary effort is normal. Breath sounds: Normal breath sounds. Skin: General: Skin is warm and dry. Neurological: General: No focal deficit present. Mental Status: She is alert and oriented to person, place, and time. ALLERGIES Allergen Reactions Meloxicam GI Upset Sulfa (Sulfonamide * Swelling Facial swelling, shortness of breath. Medications guaifenesin/pseudoephedrne HCl (MUCINEX D ORAL) Take by mouth. benzonatate (TESSALON PERLE) 100 mg capsule Take 1-2 capsules by mouth three times a day as needed. albuterol HFA (PROVENTIL HFA) 90 mcg/actuation inhaler Inhale 1-2 Puffs as instructed four times a day as needed for wheezing/shortness of breath. fluticasone (FLONASE) 50 mcg/actuation nasal spray Use 2 Sprays in each nostril once daily. Rinse mouth after use. clopidogrel (PLAVIX) 75 mg tablet Take 1 tablet by mouth once daily. dulaglutide (TRULICITY) 4.5 mg/0.5 mL pen injector Inject 4.5 mg subcutaneously one time a week. Gets through [facility]. insulin glargine 100 unit/mL (3 mL) Inject 26 Units subcutaneously every morning. (Basaglar) Patient assistance medication. insulin lispro (HUMALOG KWIKPEN) 100 unit/mL Inject 8 units with breakfast and 4 units with evening meal as directed. Patient assistance medication. escitalopram oxalate (LEXAPRO) 20 mg tablet Take 1 tablet by mouth once daily. atorvastatin (LIPITOR) 40 mg tablet Take 1 tablet by mouth daily at bedtime. For cholesterol. buPROPion XL (WELLBUTRIN XL) 150 mg 24 hr tablet Take 1 tablet by mouth once daily. tamsulosin (FLOMAX) 0.4 mg Take 2 capsules by mouth once daily. Blood-Glucose Sensor (ClickFoxCOM G7 SENSOR) jackson Apply new sensor every ten (10) days. ciclopirox (LOPROX) 0.77 % cream Apply to affected area two times a day. For 2 to 4 weeks till rash resolves. May treat recurrences for rash under abdominal pannus acyclovir (ZOVIRAX) 400 mg tablet Take 1 tablet by mouth two times a day. blood sugar diagnostic (BLOOD GLUCOSE TEST) test strip Test blood sugar(s) 3 to 4 times daily. Dx: Other DM Code E11.51 Insulin: Yes One touch or Accucheck strips or strips covered by her insurance. Lancets Test blood sugar(s) 3 to 4 times daily. Dx: Other DM Code E11.51 Insulin: Yes clobetasol (TEMOVATE) 0.05 % ointment Apply nightly to affected area for 8-12 weeks, then 1-3x weekly for maintenance hydrALAZINE (APRESOLINE) 50 mg tablet Take 1 tablet by mouth two times a day. Hold for SBP less than 120mm HG pantoprazole DR (PROTONIX) 40 mg tablet Take 1 tablet by mouth once daily. carvedilol (COREG) 6.25 mg tablet Take 1 tablet by mouth two times a day with meals. nystatin (MYCOSTATIN) powder Apply 1 application to affected area twice daily as needed. For prevention B complex w-C no.20/folic acid (B COMPLEX WITH C 20-FOLIC ACID ORAL) Take 1 tablet by mouth once daily. Magnesium Oxide 500 mg tab Take 1 tablet by mouth once daily. For constipation Blood-Glucose Meter,Continuous (DEXCOM G7 ENVELOPE SEALER) [facility] Use to check blood sugar at least four (4) times daily. nitroglycerin sublingual (NITROQUICK) 0.4 mg SL tablet Dissolve 1 tablet under the tongue as needed. As directed insulin needles, DISPOSABLE, (PEN NEEDLE) 31 gauge x 5/16 Use one needle per dose. 5 per day. bacitracin zinc 500 unit/gram ointment Apply to affected area twice daily. As directed for affected area till healed cetirizine (ZYRTEC) 10 mg tablet Take 1 tablet by mouth once daily as needed. aspirin, enteric coated (ASPIRIN, ENTERIC COATED) 81 mg EC tablet Take 1 tablet by mouth once daily. cyanocobalamin, vitamin B-12, 5,000 mcg subl Dissolve under the tongue once daily. ascorbic acid, vitamin C, (VITAMIN C) 500 mg tablet Take 1,000 mg by mouth once daily. biotin 5,000 mcg ODT Take 1 tablet by mouth once daily. polyethylene glycol 3350 (MIRALAX) 17 gram/dose powder Take 17 g by mouth as directed. gabapentin (NEURONTIN) 400 mg capsule Take 1 capsule by mouth two times a day AND 2 capsules daily at bedtime. Do all this for 90 days. (Patient taking differently: Take 1 capsule by mouth in the afternoon AND 2 capsules daily at bedtime. Do all this for 90 days.) PAST MEDICAL HISTORY Diagnosis Date Anxiety Arthritis Depression MARITZA exposure in utero Diabetes mellitus ([facility]) 1986 Diabetic neuropathy ([facility]) Gangrene ([facility]) Heart attack ([facility]) [address] Adalberto [employer] [place] Herniated disc Hypertension Muscular deconditioning PVD (peripheral vascular disease) ([facility]) 10/2019 S/P BKA (below knee amputation) unilateral, left ([facility]) Sleep apnea cpap Snoring Stroke ([facility]) 11/2004 and 05/2005 x 2, right sided weakness Social History Tobacco Use Smoking status: Never Smokeless tobacco: Never Vaping Use Vaping status: Never Used Substance Use Topics Alcohol use: Yes Comment: Rarely Drug use: No Latest Ref Rng 12/11/2023 06/13/2024 10/10/2024 WBC 3.70 - 11.00 k/uL 9.99 8.70 RBC 3.90 - 5.20 m/uL 3.17 (L) 3.21 (L) Hemoglobin 11.5 - 15.5 g/dL 9.6 (L) 9.2 (L) Hematocrit 36.0 - 46.0 % 31.0 (L) 29.4 (L) MCV 80.0 - 100.0 fL 97.8 91.6 MCH 26.0 - 34.0 pg 30.3 28.7 MCHC 30.5 - 36.0 g/dL 31.0 31.3 RDW-CV 11.5 - 15.0 % 14.2 14.5 Platelet Count 150 - 400 k/uL 256 257 MPV 9.0 - 12.7 fL 10.5 10.4 Neut% % 65.1 Abs Neut (ANC) 1.45 - 7.50 k/uL 6.50 Lymph% % 22.1 Abs Lymph 1.00 - 4.00 k/uL 2.21 [place]% % 6.8 Abs [place] <0.87 k/uL 0.68 Eosin% % 5.1 Abs Eosin <0.46 k/uL 0.51 (H) Baso% % 0.4 Abs Baso <0.11 k/uL 0.04 Immature Gran % % 0.5 IMMATURE GRANS (ABS) <0.10 k/uL 0.05 NRBC /100 WBC 0.0 Absolute nRBC <0.01 k/uL <0.01 <0.01 DTYPE Auto Protein, Total 6.3 - 8.0 g/dL 6.8 7.0 Protein, Total 6.3 - 8.0 g/dL 7.0 Albumin 3.9 - 4.9 g/dL 4.1 4.4 Calcium 8.5 - 10.2 mg/dL 11.0 (H) 11.3 (H) 10.6 (H) Bilirubin, Total 0.2 - 1.3 mg/dL 0.2 0.2 Alkaline Phosphatase 34 - 123 U/L 83 100 AST 13 - 35 U/L 19 15 ALT 7 - 38 U/L 18 21 Glucose 74 - 99 mg/dL 133 (H) 125 (H) 148 (H) BUN 7 - 21 mg/dL 37 (H) 38 (H) 25 (H) Creatinine 0.58 - 0.96 mg/dL 1.68 (H) 1.78 (H) 1.61 (H) Sodium 136 - 144 mmol/L 142 143 140 Potassium 3.7 - 5.1 mmol/L 4.9 5.2 (H) 4.5 Chloride 98 - 107 mmol/L 106 (H) 107 106 CO2 22 - 30 mmol/L 25 24 23 Anion Gap 8 - 15 mmol/L 11 12 11 eGFR >=60 mL/min/1.73m 33 (L) 31 (L) 35 (L) Cholesterol, Total <200 mg/dL 157 Triglyceride <150 mg/dL 119 HDL Cholesterol >39 mg/dL 55 Non HDL Cholesterol <130 mg/dL 102 Fasting Time hrs 11 VLDL Cholesterol <30 mg/dL 24 TC:HDL Ratio <5.10 2.85 LDL Cholesterol <100 mg/dL 78 LDL:HDL Ratio <2.54 1.42 Albumin 3.43 - 5.41 g/dL 4.20 Alpha 1 Globulin 0.18 - 0.43 g/dL 0.35 Alpha 2 Globulin 0.42 - 0.98 g/dL 0.82 Beta Globulin 0.61 - 1.17 g/dL 0.79 Gamma Globulin 0.53 - 1.51 g/dL 0.83 Interpretation (Prot Electro) No definitive M protein is identified on protein electrophoresis. No definitive M protein is identified on protein electrophoresis. M-Protein Location -- M-Protein Concentration <=0.00 g/dL 0.00 SPE Staff Review Reviewed by Dr. Davy Agarwal MD Total Cholesterol, Nonfasting <200 mg/dL 153 Triglycerides, Nonfasting <150 mg/dL 167 (H) HDL Cholesterol, Nonfasting >39 mg/dL 48 LDL Cholesterol, Nonfasting <100 mg/dL 72 Non HDL Cholesterol, Nonfasting <130 mg/dL 105 VLDL Cholesterol, Nonfasting <30 mg/dL 33 (H) Total Chol/HDL Ratio, Nonfasting <5.10 mg/dL 3.19 LDL/HDL Ratio, Nonfasting <2.54 mg/dL 1.50 Albumin, Urine (Prot Electro) % 54.99 Alpha 1 Globulin, Urine % 5.55 Alpha 2 Globulin, Urine % 13.75 Beta Globulin, Urine % 13.37 Gamma Globulin, Urine % 12.34 Interpretation (Urine Electro) No definitive M protein is identified on protein electrophoresis. No definitive M protein is identified on protein electrophoresis. Interpretation Comment for Protein Electrophoresis The absence of M-protein on urine protein electrophoresis does not entirely exclude the presence of monoclonal gammopathy in urine. Monoclonal protein analysis (immunofixation), a more definitive test to exclude monoclonal gammopathy, may be requested on this specimen if clinically indicated. Staff Review (Urine Electro) Reviewed by Dr. Davy Agarwal MD Creatinine, Ur Random (UCRR) 20.0 - 300.0 mg/dL 63.7 Albumin, Urine Random mg/L 71.8 Albumin/Creat Ratio <30 mg/g 113 (H) Hemoglobin A1C 4.3 - 5.6 % 6.1 (H) 6.1 (H) Estimated Average Glucose mg/dL 128 128 Normalized Calcium 1.08 - 1.30 mmol/L 1.46 (H) Ionized Calcium 1.08 - 1.30 mmol/L 1.45 (H) Magnesium 1.7 - 2.3 mg/dL 2.4 (H) Free T4 0.9 - 1.7 ng/dL 1.2 Free T3 2.3 - 4.1 pg/mL 2.2 (L) Vitamin D 25 Hydroxy 31.0 - 80.0 ng/mL 51.0 PTH, Intact 15 - 65 pg/mL 151 (H) Phosphorus 2.7 - 4.8 mg/dL 3.1 Protein, Urine Random 0 - 20 mg/dL 12 Glucose, Point of Care 74 - 99 mg/dL 194 ! ASSESSMENT/PLAN: 1. Pneumonia of left lower lobe due to infectious organism - ICD9: 486, ICD10: J18.9 Endorse supportive care. She has completed antibiotics. Will complete chest x-ray today, can extend or add alternate if needed. Chest x-ray looks clear, no residual infiltrate is noted. Continue with Flonase for nasal congestion and left ear fullness. Continue with benzonatate for cough suppression. Has only used albuterol once since last year. Recommend every 6 hours as needed for cough. Will add prednisone tapering dose for poorly controlled cough at this time. She will let us know if blood sugars are running greater than 200, can add 2 units of long-acting insulin if needed for glucose greater than 200. . Recheck in 1 week. Nichelle Villatoro APRN.[employer] Medical Decision Making: Problems: Low: Acute, uncomplicated illness or injury Data: Unique test result(s) reviewed: 1 Risk: Moderate: Drug management Medical Decision Making Level: 3 - Low documented in this encounter [facility] 10-27-2024 History of Present illness Narrative SUBJECTIVE: Pneumococcal Vaccine: 50+(2 of 2 - PCV) due on 10/01/2005 RSV Vaccine(1 - Risk 60-74 years 1-dose series) Never done DTaP,Tdap,Td Vaccine(2 - Td or Tdap) due on 10/01/2018 Influenza Vaccine(1) due on 06/01/2024 Diabetic Foot Exam due on 06/13/2024 Advance Directive Discussion due on 10/01/2024 HPI Miriam Thomas is a 69 year old female. 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 ([facility]) Recurrent Major Depression in Partial Remission ([facility]) Functional Dyspepsia Gastroesophageal Reflux Disease Diabetic Gastroparesis ([facility]) ([facility]) Lichen Sclerosus Type 2 Diabetes Mellitus With Diabetic Peripheral Angiopathy and Gangrene, With Long-Term Current Use of Insulin ([facility]cc) Obesity, Class I, Bmi 30-34.9 Leukocytosis Type 2 Diabetes Mellitus With Stage 3b Chronic Kidney Disease, With Long-Term Current Use of Insulin (Hcc) Hx of Bka, Left (Hcc) Urinary Retention Muscular Deconditioning Moderate Episode of Recurrent Major Depressive Disorder (Hcc) Hypertensive Ckd (Chronic Kidney Disease) Jose (Obstructive Sleep Apnea) Presents for routine visit today. Since last seen she underwent lower extremity angiogram 10/10/2024 wit Odin Dobbins MD at [facility]. Seen at [facility] 10/23/2024 for an acute cough. Chest x-ray completed and concerning for pneumonia, patchy left lower lobe opacities. She was treated with doxycycline and Augmentin. Today notes she continues to cough a lot, disrupting sleep. Unable to sleep in her bed due to coughing. Has been sleeping in a recliner. Currently without fever. Notes shortness of breath on exertion. No orthopnea. Occasionally wheezing. No history of asthma or COPD. She notes left ear is popping. Uses CGM, glucose has been well-controlled. Uses CGM, glucose has been well controlled. Patient's last HgA1C was Hemoglobin A1C (%) Date Value 06/13/2024 6.1 12/11/2023 6.1 05/09/2021 5.4 06/09/2020 6.3 ) Last 3 Encounter BP Readings: Date: BP: 10/23/2024 102/67 10/09/2024 132/66 09/30/2024 159/70 Review of Systems Constitutional: Negative. Objective BP 110/66 Pulse 73 SpO2 96% Physical Exam Vitals and nursing note reviewed. Constitutional: Appearance: Normal appearance. HENT: Head: Normocephalic and atraumatic. Right Ear: Tympanic membrane and ear canal normal. Left Ear: Ear canal normal. A middle ear effusion (serous) is present. Nose: Mucosal edema and rhinorrhea present. Rhinorrhea is clear. Mouth/Throat: Lips: [place]. Mouth: Mucous membranes are moist. Pharynx: Oropharynx is clear. Tonsils: No tonsillar exudate. Eyes: Conjunctiva/sclera: Conjunctivae normal. Cardiovascular: Rate and Rhythm: Normal rate and regular rhythm. Heart sounds: Normal heart sounds. Pulmonary: Effort: Pulmonary effort is normal. Breath sounds: Rhonchi present. Comments: scattered rhonchi, diminished at bases Skin: General: Skin is warm and dry. Neurological: General: No focal deficit present. Mental Status: She is alert and oriented to person, place, and time. ALLERGIES Allergen Reactions Meloxicam GI Upset Sulfa (Sulfonamide * Swelling Facial swelling, shortness of breath. Medications clopidogrel (PLAVIX) 75 mg tablet Take 1 tablet by mouth once daily. dulaglutide (TRULICITY) 4.5 mg/0.5 mL pen injector Inject 4.5 mg subcutaneously one time a week. Gets through [facility]. insulin glargine 100 unit/mL (3 mL) Inject 26 Units subcutaneously every morning. (Basaglar) Patient assistance medication. insulin lispro (HUMALOG KWIKPEN) 100 unit/mL Inject 8 units with breakfast and 4 units with evening meal as directed. Patient assistance medication. escitalopram oxalate (LEXAPRO) 20 mg tablet Take 1 tablet by mouth once daily. atorvastatin (LIPITOR) 40 mg tablet Take 1 tablet by mouth daily at bedtime. For cholesterol. buPROPion XL (WELLBUTRIN XL) 150 mg 24 hr tablet Take 1 tablet by mouth once daily. tamsulosin (FLOMAX) 0.4 mg Take 2 capsules by mouth once daily. gabapentin (NEURONTIN) 400 mg capsule Take 1 capsule by mouth two times a day AND 2 capsules daily at bedtime. Do all this for 90 days. (Patient taking differently: Take 1 capsule by mouth in the afternoon AND 2 capsules daily at bedtime. Do all this for 90 days.) Blood-Glucose Sensor (ClickFox[employer] G7 SENSOR) jackson Apply new sensor every ten (10) days. ciclopirox (LOPROX) 0.77 % cream Apply to affected area two times a day. For 2 to 4 weeks till rash resolves. May treat recurrences for rash under abdominal pannus acyclovir (ZOVIRAX) 400 mg tablet Take 1 tablet by mouth two times a day. blood sugar diagnostic (BLOOD GLUCOSE TEST) test strip Test blood sugar(s) 3 to 4 times daily. Dx: Other DM Code E11.51 Insulin: Yes One touch or Accucheck strips or strips covered by her insurance. Lancets Test blood sugar(s) 3 to 4 times daily. Dx: Other DM Code E11.51 Insulin: Yes clobetasol (TEMOVATE) 0.05 % ointment Apply nightly to affected area for 8-12 weeks, then 1-3x weekly for maintenance hydrALAZINE (APRESOLINE) 50 mg tablet Take 1 tablet by mouth two times a day. Hold for SBP less than 120mm HG pantoprazole DR (PROTONIX) 40 mg tablet Take 1 tablet by mouth once daily. carvedilol (COREG) 6.25 mg tablet Take 1 tablet by mouth two times a day with meals. nystatin (MYCOSTATIN) powder Apply 1 application to affected area twice daily as needed. For prevention B complex w-C no.20/folic acid (B COMPLEX WITH C 20-FOLIC ACID ORAL) Take 1 tablet by mouth once daily. Magnesium Oxide 500 mg tab Take 1 tablet by mouth once daily. For constipation Blood-Glucose Meter,Continuous (Planspot G7 ENVELOPE SEALER) misc Use to check blood sugar at least four (4) times daily. nitroglycerin sublingual (NITROQUICK) 0.4 mg SL tablet Dissolve 1 tablet under the tongue as needed. As directed insulin needles, DISPOSABLE, (PEN NEEDLE) 31 gauge x 5/16 Use one needle per dose. 5 per day. bacitracin zinc 500 unit/gram ointment Apply to affected area twice daily. As directed for affected area till healed cetirizine (ZYRTEC) 10 mg tablet Take 1 tablet by mouth once daily as needed. aspirin, enteric coated (ASPIRIN, ENTERIC COATED) 81 mg EC tablet Take 1 tablet by mouth once daily. cyanocobalamin, vitamin B-12, 5,000 mcg subl Dissolve under the tongue once daily. ascorbic acid, vitamin C, (VITAMIN C) 500 mg tablet Take 1,000 mg by mouth once daily. biotin 5,000 mcg ODT Take 1 tablet by mouth once daily. polyethylene glycol 3350 (MIRALAX) 17 gram/dose powder Take 17 g by mouth as directed. amoxicillin-clavulanate potassium (AUGMENTIN) 875-125 mg per tablet Take 1 tablet by mouth two times a day for 5 days. doxycycline monohydrate 100 mg tablet Take 1 tablet by mouth two times a day for 5 days. benzonatate (TESSALON PERLE) 100 mg capsule Take 1-2 capsules by mouth three times a day as needed. albuterol HFA (PROVENTIL HFA) 90 mcg/actuation inhaler Inhale 1-2 Puffs as instructed four times a day as needed for wheezing/shortness of breath. fluticasone (FLONASE) 50 mcg/actuation nasal spray Use 2 Sprays in each nostril once daily. Rinse mouth after use. PAST MEDICAL HISTORY Diagnosis Date Anxiety Arthritis Depression MARITZA exposure in utero Diabetes mellitus ([facility]) 1986 Diabetic neuropathy ([facility]) Gangrene ([facility]) Heart attack ([facility]) [address] Adalberto Power [place] Herniated disc Hypertension Muscular deconditioning PVD (peripheral vascular disease) ([facility]) 10/2019 S/P BKA (below knee amputation) unilateral, left ([facility]) Sleep apnea cpap Snoring Stroke ([facility]) 11/2004 and 05/2005 x 2, right sided weakness Social History Tobacco Use Smoking status: Never Smokeless tobacco: Never Vaping Use Vaping status: Never Used Substance Use Topics Alcohol use: Yes Comment: Rarely Drug use: No Latest Ref Rng 12/11/2023 06/13/2024 10/10/2024 WBC 3.70 - 11.00 k/uL 9.99 8.70 RBC 3.90 - 5.20 m/uL 3.17 (L) 3.21 (L) Hemoglobin 11.5 - 15.5 g/dL 9.6 (L) 9.2 (L) Hematocrit 36.0 - 46.0 % 31.0 (L) 29.4 (L) MCV 80.0 - 100.0 fL 97.8 91.6 MCH 26.0 - 34.0 pg 30.3 28.7 MCHC 30.5 - 36.0 g/dL 31.0 31.3 RDW-CV 11.5 - 15.0 % 14.2 14.5 Platelet Count 150 - 400 k/uL 256 257 MPV 9.0 - 12.7 fL 10.5 10.4 Neut% % 65.1 Abs Neut (ANC) 1.45 - 7.50 k/uL 6.50 Lymph% % 22.1 Abs Lymph 1.00 - 4.00 k/uL 2.21 [place]% % 6.8 Abs [place] <0.87 k/uL 0.68 Eosin% % 5.1 Abs Eosin <0.46 k/uL 0.51 (H) Baso% % 0.4 Abs Baso <0.11 k/uL 0.04 Immature Gran % % 0.5 IMMATURE GRANS (ABS) <0.10 k/uL 0.05 NRBC /100 WBC 0.0 Absolute nRBC <0.01 k/uL <0.01 <0.01 DTYPE Auto Protein, Total 6.3 - 8.0 g/dL 6.8 7.0 Protein, Total 6.3 - 8.0 g/dL 7.0 Albumin 3.9 - 4.9 g/dL 4.1 4.4 Calcium 8.5 - 10.2 mg/dL 11.0 (H) 11.3 (H) 10.6 (H) Bilirubin, Total 0.2 - 1.3 mg/dL 0.2 0.2 Alkaline Phosphatase 34 - 123 U/L 83 100 AST 13 - 35 U/L 19 15 ALT 7 - 38 U/L 18 21 Glucose 74 - 99 mg/dL 133 (H) 125 (H) 148 (H) BUN 7 - 21 mg/dL 37 (H) 38 (H) 25 (H) Creatinine 0.58 - 0.96 mg/dL 1.68 (H) 1.78 (H) 1.61 (H) Sodium 136 - 144 mmol/L 142 143 140 Potassium 3.7 - 5.1 mmol/L 4.9 5.2 (H) 4.5 Chloride 98 - 107 mmol/L 106 (H) 107 106 CO2 22 - 30 mmol/L 25 24 23 Anion Gap 8 - 15 mmol/L 11 12 11 eGFR >=60 mL/min/1.73m 33 (L) 31 (L) 35 (L) Cholesterol, Total <200 mg/dL 157 Triglyceride <150 mg/dL 119 HDL Cholesterol >39 mg/dL 55 Non HDL Cholesterol <130 mg/dL 102 Fasting Time hrs 11 VLDL Cholesterol <30 mg/dL 24 TC:HDL Ratio <5.10 2.85 LDL Cholesterol <100 mg/dL 78 LDL:HDL Ratio <2.54 1.42 Albumin 3.43 - 5.41 g/dL 4.20 Alpha 1 Globulin 0.18 - 0.43 g/dL 0.35 Alpha 2 Globulin 0.42 - 0.98 g/dL 0.82 Beta Globulin 0.61 - 1.17 g/dL 0.79 Gamma Globulin 0.53 - 1.51 g/dL 0.83 Interpretation (Prot Electro) No definitive M protein is identified on protein electrophoresis. No definitive M protein is identified on protein electrophoresis. M-Protein Location -- M-Protein Concentration <=0.00 g/dL 0.00 SPE Staff Review Reviewed by Dr. Davy Agarwal MD Total Cholesterol, Nonfasting <200 mg/dL 153 Triglycerides, Nonfasting <150 mg/dL 167 (H) HDL Cholesterol, Nonfasting >39 mg/dL 48 LDL Cholesterol, Nonfasting <100 mg/dL 72 Non HDL Cholesterol, Nonfasting <130 mg/dL 105 VLDL Cholesterol, Nonfasting <30 mg/dL 33 (H) Total Chol/HDL Ratio, Nonfasting <5.10 mg/dL 3.19 LDL/HDL Ratio, Nonfasting <2.54 mg/dL 1.50 Albumin, Urine (Prot Electro) % 54.99 Alpha 1 Globulin, Urine % 5.55 Alpha 2 Globulin, Urine % 13.75 Beta Globulin, Urine % 13.37 Gamma Globulin, Urine % 12.34 Interpretation (Urine Electro) No definitive M protein is identified on protein electrophoresis. No definitive M protein is identified on protein electrophoresis. Interpretation Comment for Protein Electrophoresis The absence of M-protein on urine protein electrophoresis does not entirely exclude the presence of monoclonal gammopathy in urine. Monoclonal protein analysis (immunofixation), a more definitive test to exclude monoclonal gammopathy, may be requested on this specimen if clinically indicated. Staff Review (Urine Electro) Reviewed by Dr. Davy Agarwal MD Creatinine, Ur Random (UCRR) 20.0 - 300.0 mg/dL 63.7 Albumin, Urine Random mg/L 71.8 Albumin/Creat Ratio <30 mg/g 113 (H) Hemoglobin A1C 4.3 - 5.6 % 6.1 (H) 6.1 (H) Estimated Average Glucose mg/dL 128 128 Normalized Calcium 1.08 - 1.30 mmol/L 1.46 (H) Ionized Calcium 1.08 - 1.30 mmol/L 1.45 (H) Magnesium 1.7 - 2.3 mg/dL 2.4 (H) Free T4 0.9 - 1.7 ng/dL 1.2 Free T3 2.3 - 4.1 pg/mL 2.2 (L) Vitamin D 25 Hydroxy 31.0 - 80.0 ng/mL 51.0 PTH, Intact 15 - 65 pg/mL 151 (H) Phosphorus 2.7 - 4.8 mg/dL 3.1 Protein, Urine Random 0 - 20 mg/dL 12 Glucose, Point of Care 74 - 99 mg/dL 194 ! ASSESSMENT/PLAN: 1. Pneumonia of left lower lobe due to infectious organism - ICD9: 486, ICD10: J18.9 Endorse supportive care. Extend antibiotics an additional 5 days for a total of 10 days of treatment. Add Flonase for nasal congestion and left ear fullness. Add benzonatate and albuterol inhaler for difficult to control cough. Consider addition of prednisone if not sufficient, will let us know in 1-2 days. Recheck in 1 week. - XR CHEST 2V FRONTAL/LAT - AMOXICILLIN 875 MG-POTASSIUM CLAVULANATE 125 MG TABLET - DOXYCYCLINE MONOHYDRATE 100 MG TABLET - BENZONATATE 100 MG CAPSULE - ALBUTEROL SULFATE HFA 90 MCG/ACTUATION AEROSOL INHALER - FLUTICASONE PROPIONATE 50 MCG/ACTUATION NASAL SPRAY,SUSPENSION Nichelle Villatoro APRN.[employer] Medical Decision Making: Problems: Low: Acute, uncomplicated illness or injury Data: Unique test result(s) reviewed: 1 Unique test(s) ordered: 1 Risk: Moderate: Drug management Medical Decision Making Level: 3 - Low documented in this encounter [facility] 10-27-2024 Note HNO ID: [id number] Author: NICHELLE VILLATORO APRN.[employer] Service: ? Author Type: Nurse Specialist Type: Progress Notes Filed: 10/27/2024 12:54 Note Text: SUBJECTIVE: Pneumococcal Vaccine: 50+(2 of 2 - PCV) due on 10/01/2005 RSV Vaccine(1 - Risk 60-74 years 1-dose series) Never done DTaP,Tdap,Td Vaccine(2 - Td or Tdap) due on 10/01/2018 Influenza Vaccine(1) due on 06/01/2024 Diabetic Foot Exam due on 06/13/2024 Advance Directive Discussion due on 10/01/2024 EKATERINA Miriam Thomas is a 69 year old female. 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 ([facility]) Recurrent Major Depression in Partial Remission ([facility]) Functional Dyspepsia Gastroesophageal Reflux Disease Diabetic Gastroparesis ([facility]) ([facility]) Lichen Sclerosus Type 2 Diabetes Mellitus With Diabetic Peripheral Angiopathy and Gangrene, With Long-Term Current Use of Insulin ([facility]) Obesity, Class I, Bmi 30-34.9 Leukocytosis Type 2 Diabetes Mellitus With Stage 3b Chronic Kidney Disease, With Long-Term Current Use of Insulin ([facility]) Hx of Bka, Left ([facility]) Urinary Retention Muscular Deconditioning Moderate Episode of Recurrent Major Depressive Disorder ([facility]) Hypertensive Ckd (Chronic Kidney Disease) Jose (Obstructive Sleep Apnea) Presents for routine visit today. Since last seen she underwent lower extremity angiogram 10/10/2024 wit Odin Dobbins MD at [facility]. Seen at [facility] 10/23/2024 for an acute cough. Chest x-ray completed and concerning for pneumonia, patchy left lower lobe opacities. She was treated with doxycycline and Augmentin. Today notes she continues to cough a lot, disrupting sleep. Unable to sleep in her bed due to coughing. Has been sleeping in a recliner. Currently without fever. Notes shortness of breath on exertion. No orthopnea. Occasionally wheezing. No history of asthma or COPD. She notes left ear is popping. Uses CGM, glucose has been well-controlled. Uses CGM, glucose has been well controlled. Patient's last HgA1C was Hemoglobin A1C (%) Date Value 06/13/2024 6.1 12/11/2023 6.1 05/09/2021 5.4 06/09/2020 6.3 ) Last 3 Encounter BP Readings: Date: BP: 10/23/2024 102/67 10/09/2024 132/66 09/30/2024 159/70 Review of Systems Constitutional: Negative. Objective BP 110/66 Pulse 73 SpO2 96% Physical Exam Vitals and nursing note reviewed. Constitutional: Appearance: Normal appearance. HENT: Head: Normocephalic and atraumatic. Right Ear: Tympanic membrane and ear canal normal. Left Ear: Ear canal normal. A middle ear effusion (serous) is present. Nose: Mucosal edema and rhinorrhea present. Rhinorrhea is clear. Mouth/Throat: Lips: [place]. Mouth: Mucous membranes are moist. Pharynx: Oropharynx is clear. Tonsils: No tonsillar exudate. Eyes: Conjunctiva/sclera: Conjunctivae normal. Cardiovascular: Rate and Rhythm: Normal rate and regular rhythm. Heart sounds: Normal heart sounds. Pulmonary: Effort: Pulmonary effort is normal. Breath sounds: Rhonchi present. Comments: scattered rhonchi, diminished at bases Skin: General: Skin is warm and dry. Neurological: General: No focal deficit present. Mental Status: She is alert and oriented to person, place, and time. ALLERGIES Allergen Reactions Meloxicam GI Upset Sulfa (Sulfonamide * Swelling Facial swelling, shortness of breath. Medications clopidogrel (PLAVIX) 75 mg tablet Take 1 tablet by mouth once daily. dulaglutide (TRULICITY) 4.5 mg/0.5 mL pen injector Inject 4.5 mg subcutaneously one time a week. Gets through [employer]. insulin glargine 100 unit/mL (3 mL) Inject 26 Units subcutaneously every morning. (Basaglar) Patient assistance medication. insulin lispro (HUMALOG KWIKPEN) 100 unit/mL Inject 8 units with breakfast and 4 units with evening meal as directed. Patient assistance medication. escitalopram oxalate (LEXAPRO) 20 mg tablet Take 1 tablet by mouth once daily. atorvastatin (LIPITOR) 40 mg tablet Take 1 tablet by mouth daily at bedtime. For cholesterol. buPROPion XL (WELLBUTRIN XL) 150 mg 24 hr tablet Take 1 tablet by mouth once daily. tamsulosin (FLOMAX) 0.4 mg Take 2 capsules by mouth once daily. gabapentin (NEURONTIN) 400 mg capsule Take 1 capsule by mouth two times a day AND 2 capsules daily at bedtime. Do all this for 90 days. (Patient taking differently: Take 1 capsule by mouth in the afternoon AND 2 capsules daily at bedtime. Do all this for 90 days.) Blood-Glucose Sensor (DEXCOM G7 SENSOR) jackson Apply new sens (more content not included)... [facility] 10-23-2024 Miscellaneous Notes Spoke with patient told her to call me when she is feeling better and I would work her in to be seen Karuna Mims Sooner if she is feeling better. Leti Roger DPM Toes are not wet still have black scab and are warm and she is scheduled for another pvr on nov [address] [place] [address] then see Dr Cohen on nov 17 Do you want to see after these or do you want to see sooner if she is feeling better Karuna Mims Can you please call patient and see how she is doing? I have not seen her since had vascular procedure and MRI was concerning for infection to the tip of the toes. Looks like she cancelled appointment with me today and may have pneumonia. How are the toes looking? Leti Roger DPM documented in this encounter [facility] 10-23-2024 Telephone encounter Note Spoke with patient told her to call me when she is feeling better and I would work her in to be seen Karuna Mims [facility] 10-23-2024 Telephone encounter Note Sooner if she is feeling better. Leti Roger DPM [facility] Work Phone: 10-23-2024 Telephone encounter Note Toes are not wet still have black scab and are warm and she is scheduled for another pvr on nov [address] [place] [address] see [address] Cohen on nov 17 Do you want to see after these or do you want to see sooner if she is feeling better Karuna [place] [facility] 10-23-2024 Telephone encounter Note Can you please call patient and see how she is doing? I have not seen her since had vascular procedure and MRI was concerning for infection to the tip of the toes. Looks like she cancelled appointment with me today and may have pneumonia. How are the toes looking? Leti Roger DPM [facility] 10-23-2024 History of Present illness Narrative Radiology Service Progress Note PATIENT NAME: Miriam Thomas DATE OF SERVICE: October 23, 2024 TIME: 10:20 AM PATIENT IDENTITY VERIFICATION COMPLETED USING TWO (2) IDENTIFIERS: Name and Date of confirmed by patient verbally. FALL SCREENING: Has the patient had 2 falls in the last year or 1 fall with injury or currently using an Ambulatory Assistive Device (Walker, Cane, Wheelchair, Crutches, etc.)? Yes, Patient High Risk for Falls What interventions were put in place to prevent falls during this visit? done in electric chair PATIENT GENDER DATA: Assigned female at . status: : No status: NO. PATIENT RELEVANT IMPLANT DATA REVIEWED: Not Applicable PATIENT PRESENTS WITH AN IMPLANTABLE OR ATTACHED URGENT CARE: No RADIOLOGY DEPARTMENT: General X-ray: Exam(s) Completed: Chest X-Ray PERIPHERAL IV DATA: Not applicable SIGNED BY: RT Tania(Zach) October 23, 2024 10:31 AM documented in this encounter [facility] 10-23-2024 Note HNO ID: [id number] Author: STAN JAMES RT(R) Service: Radiology Author Type: Technologist Type: Progress Notes Filed: 10/23/2024 10:31 Note Text: Radiology Service Progress Note PATIENT NAME: Miriam Thomas DATE OF SERVICE: October 23, 2024 TIME: 10:20 AM PATIENT IDENTITY VERIFICATION COMPLETED USING TWO (2) IDENTIFIERS: Name and Date of confirmed by patient verbally. FALL SCREENING: Has the patient had 2 falls in the last year or 1 fall with injury or currently using an Ambulatory Assistive Device (Walker, Cane, Wheelchair, Crutches, etc.)? Yes, Patient High Risk for Falls What interventions were put in place to prevent falls during this visit? done in electric chair PATIENT GENDER DATA: Assigned female at . status: : No status: NO. PATIENT RELEVANT IMPLANT DATA REVIEWED: Not Applicable PATIENT PRESENTS WITH AN IMPLANTABLE OR ATTACHED URGENT CARE: No RADIOLOGY DEPARTMENT: General X-ray: Exam(s) Completed: Chest X-Ray PERIPHERAL IV DATA: Not applicable SIGNED BY: RT Tania(R) October 23, 2024 10:31 AM [facility] 10-23-2024 Note HNO ID: [id number] Author: REJI GORE APRN.COMMUNICABLE DISEASE SPECIALIST Service: ? Author Type: Nurse Practitioner Type: Progress Notes Filed: 10/23/2024 10:54 Note Text: Subjective HPI Nontoxic-appearing 69-year-old female presents urgent care chief complaint cough chest congestion sinus pressure. Duration of symptoms 1 week. Associated symptoms listed above. was sick previously with similar signs symptoms. Presents today because it feels like it is moving into her chest. States cough is becoming productive. Denies any chest pain shortness of breath or hemoptysis. No pleuritic pain. No fevers. Past medical history prescription medications allergies reviewed. .Patient presents with: Cough: Head and chest congestion x1 week PAST MEDICAL HISTORY Diagnosis Date Anxiety Arthritis Depression MARITZA exposure in utero Diabetes mellitus ([facility]) 1986 Diabetic neuropathy ([facility]) Gangrene ([facility]) Heart attack ([facility]) [address] Adalberto Power [place] Herniated disc Hypertension Muscular deconditioning PVD (peripheral vascular disease) ([facility]) 10/2019 S/P BKA (below knee amputation) unilateral, left ([facility]) Sleep apnea cpap Snoring Stroke ([facility]) 11/2004 and 05/2005 x 2, right sided weakness PAST SURGICAL HISTORY Procedure Laterality Date AMPUTATION OF LOWER LEG Left 07/20/2020 L BKA ANESTH,BRACHIAL/FEMORAL ARTERIOGRAM Left 11/04/2019 Left femoral arteriogram with stenting of left superficial femoral artery. Attempted left popliteal artery thromboembolectomy. Left anterior tibial thromboembolectomy @ [facility] by Dr. Zavaleta AORTOGRAM AND LEG RUNOFF 11/04/2019 1. Abdominal aortogram with bilateral selective lower extremity carbon dioxide runoff @ [facility] by Dr Zavaleta DELIVERY ONLY 1980, 1983, 1985 , low transverse, x 3 COLONOSCOPY FLX DX W/COLLJ SPEC WHEN PFRMD 02/17/16 Colonoscopy (MAC) ESOPHAGOGASTRODUODENOSCOPY TRANSORAL DIAGNOSTIC 11/26/2017 EGD ESOPHAGOGASTRODUODENOSCOPY TRANSORAL DIAGNOSTIC 01/14/2018 EGD PAST SURGICAL HISTORY OF last one in 2006 DANDC, multiple x4 PAST SURGICAL HISTORY OF Left 2000 ganglion cyst removed left wrist PAST SURGICAL HISTORY OF Bilateral 07/2013 cataracts TRANSMETATARSAL AMPUTATION/OANDP Left 12/12/2019 Transmetatarsal amputation with tendoachilles lengthening left lower extremity ALLERGIES Meloxicam and Sulfa (Sulfonamide Antibiotics) MEDICATIONS clopidogrel (PLAVIX) 75 mg tablet Take 1 tablet by mouth once daily. dulaglutide (TRULICITY) 4.5 mg/0.5 mL pen injector Inject 4.5 mg subcutaneously one time a week. Gets through [employer]. insulin glargine 100 unit/mL (3 mL) Inject 26 Units subcutaneously every morning. (Basaglar) Patient assistance medication. insulin lispro (HUMALOG KWIKPEN) 100 unit/mL Inject 8 units with breakfast and 4 units with evening meal as directed. Patient assistance medication. escitalopram oxalate (LEXAPRO) 20 mg tablet Take 1 tablet by mouth once daily. atorvastatin (LIPITOR) 40 mg tablet Take 1 tablet by mouth daily at bedtime. For cholesterol. buPROPion XL (WELLBUTRIN XL) 150 mg 24 hr tablet Take 1 tablet by mouth once daily. tamsulosin (FLOMAX) 0.4 mg Take 2 capsules by mouth once daily. gabapentin (NEURONTIN) 400 mg capsule Take 1 capsule by mouth two times a day AND 2 capsules daily at bedtime. Do all this for 90 days. (Patient taking differently: Take 1 capsule by mouth in the afternoon AND 2 capsules daily at bedtime. Do all this for 90 days.) Blood-Glucose Sensor (Pl[employer] G7 SENSOR) jackson Apply new sensor every ten (10) days. ciclopirox (LOPROX) 0.77 % cream Apply to affected area two times a day. For 2 to 4 weeks till rash resolves. May treat recurrences for rash under abdominal pannus acyclovir (ZOVIRAX) 400 mg tablet Take 1 tablet by mouth two times a day. blood sugar diagnostic (BLOOD GLUCOSE TEST) test strip Test blood sugar(s) 3 to 4 times daily. Dx: Other DM Code E11.51 Insulin: Yes One touch or Accucheck strips or strips covered by her insurance. Lancets Test blood sugar(s) 3 to 4 times daily. Dx: Other DM Code E11.51 Insulin: Yes clobetasol (TEMOVATE) 0.05 % ointment Apply nightly to affected area for 8-12 weeks, then 1-3x weekly for maintenance hydrALAZINE (APRESOLINE) 50 mg tablet Take 1 tablet by mouth two times a day. Hold for SBP less than 120mm HG pantoprazole DR (PROTONIX) 40 mg tablet Take 1 tablet by mouth once daily. carvedilol (COREG) 6.25 mg tablet Take 1 tablet by mouth two times a day with meals. nystatin (MYCOSTATIN) powder Apply 1 application to affected area twice daily as needed. For prevention B complex w-C no.20/folic acid (B COMPLEX WITH C 20-FOLIC ACID ORAL) Take 1 tablet by mouth once daily. Magnesium Oxide 500 mg tab Take 1 tablet by mouth once daily. For constipation Blood-Glucose Meter,Continuous (DEXCOM G7 ENVELOPE SEALER) [facility] Use to check blood sugar at least four (4) times daily. nitroglycer (more content not included)... [facility] 10-23-2024 History of Present illness Narrative Subjective HPI Nontoxic-appearing 69-year-old female presents urgent care chief complaint cough chest congestion sinus pressure. Duration of symptoms 1 week. Associated symptoms listed above. was sick previously with similar signs symptoms. Presents today because it feels like it is moving into her chest. States cough is becoming productive. Denies any chest pain shortness of breath or hemoptysis. No pleuritic pain. No fevers. Past medical history prescription medications allergies reviewed. .Patient presents with: Cough: Head and chest congestion x1 week PAST MEDICAL HISTORY Diagnosis Date Anxiety Arthritis Depression MARITZA exposure in utero Diabetes mellitus ([facility]) 1986 Diabetic neuropathy ([facility]) Gangrene ([facility]) Heart attack ([facility]) [address] Adalberto Power [place] Herniated disc Hypertension Muscular deconditioning PVD (peripheral vascular disease) ([facility]) 10/2019 S/P BKA (below knee amputation) unilateral, left ([facility]) Sleep apnea cpap Snoring Stroke ([facility]) 11/2004 and 05/2005 x 2, right sided weakness PAST SURGICAL HISTORY Procedure Laterality Date AMPUTATION OF LOWER LEG Left 07/20/2020 L BKA ANESTH,BRACHIAL/FEMORAL ARTERIOGRAM Left 11/04/2019 Left femoral arteriogram with stenting of left superficial femoral artery. Attempted left popliteal artery thromboembolectomy. Left anterior tibial thromboembolectomy @ [facility] by Dr. Zavaleta AORTOGRAM AND LEG RUNOFF 11/04/2019 1. Abdominal aortogram with bilateral selective lower extremity carbon dioxide runoff @ [facility] by Dr Zavaleta DELIVERY ONLY 1980, 1983, 1985 , low transverse, x 3 COLONOSCOPY FLX DX W/COLLJ SPEC WHEN PFRMD 02/17/16 Colonoscopy (MAC) ESOPHAGOGASTRODUODENOSCOPY TRANSORAL DIAGNOSTIC 11/26/2017 EGD ESOPHAGOGASTRODUODENOSCOPY TRANSORAL DIAGNOSTIC 01/14/2018 EGD PAST SURGICAL HISTORY OF last one in 2006 D&C, multiple x4 PAST SURGICAL HISTORY OF Left 2000 ganglion cyst removed left wrist PAST SURGICAL HISTORY OF Bilateral 07/2013 cataracts TRANSMETATARSAL AMPUTATION/O&P Left 12/12/2019 Transmetatarsal amputation with tendoachilles lengthening left lower extremity ALLERGIES Meloxicam and Sulfa (Sulfonamide Antibiotics) MEDICATIONS clopidogrel (PLAVIX) 75 mg tablet Take 1 tablet by mouth once daily. dulaglutide (TRULICITY) 4.5 mg/0.5 mL pen injector Inject 4.5 mg subcutaneously one time a week. Gets through [facility]. insulin glargine 100 unit/mL (3 mL) Inject 26 Units subcutaneously every morning. (Basaglar) Patient assistance medication. insulin lispro (HUMALOG KWIKPEN) 100 unit/mL Inject 8 units with breakfast and 4 units with evening meal as directed. Patient assistance medication. escitalopram oxalate (LEXAPRO) 20 mg tablet Take 1 tablet by mouth once daily. atorvastatin (LIPITOR) 40 mg tablet Take 1 tablet by mouth daily at bedtime. For cholesterol. buPROPion XL (WELLBUTRIN XL) 150 mg 24 hr tablet Take 1 tablet by mouth once daily. tamsulosin (FLOMAX) 0.4 mg Take 2 capsules by mouth once daily. gabapentin (NEURONTIN) 400 mg capsule Take 1 capsule by mouth two times a day AND 2 capsules daily at bedtime. Do all this for 90 days. (Patient taking differently: Take 1 capsule by mouth in the afternoon AND 2 capsules daily at bedtime. Do all this for 90 days.) Blood-Glucose Sensor (DEXCOM G7 SENSOR) jackson Apply new sensor every ten (10) days. ciclopirox (LOPROX) 0.77 % cream Apply to affected area two times a day. For 2 to 4 weeks till rash resolves. May treat recurrences for rash under abdominal pannus acyclovir (ZOVIRAX) 400 mg tablet Take 1 tablet by mouth two times a day. blood sugar diagnostic (BLOOD GLUCOSE TEST) test strip Test blood sugar(s) 3 to 4 times daily. Dx: Other DM Code E11.51 Insulin: Yes One touch or Accucheck strips or strips covered by her insurance. Lancets Test blood sugar(s) 3 to 4 times daily. Dx: Other DM Code E11.51 Insulin: Yes clobetasol (TEMOVATE) 0.05 % ointment Apply nightly to affected area for 8-12 weeks, then 1-3x weekly for maintenance hydrALAZINE (APRESOLINE) 50 mg tablet Take 1 tablet by mouth two times a day. Hold for SBP less than 120mm HG pantoprazole DR (PROTONIX) 40 mg tablet Take 1 tablet by mouth once daily. carvedilol (COREG) 6.25 mg tablet Take 1 tablet by mouth two times a day with meals. nystatin (MYCOSTATIN) powder Apply 1 application to affected area twice daily as needed. For prevention B complex w-C no.20/folic acid (B COMPLEX WITH C 20-FOLIC ACID ORAL) Take 1 tablet by mouth once daily. Magnesium Oxide 500 mg tab Take 1 tablet by mouth once daily. For constipation Blood-Glucose Meter,Continuous (DEXCOM G7 ENVELOPE SEALER) misc Use to check blood sugar at least four (4) times daily. nitroglycerin sublingual (NITROQUICK) 0.4 mg SL tablet Dissolve 1 tablet under the tongue as needed. As directed insulin needles, DISPOSABLE, (PEN NEEDLE) 31 gauge x 5/16 Use one needle per dose. 5 per day. bacitracin zinc 500 unit/gram ointment Apply to affected area twice daily. As directed for affected area till healed cetirizine (ZYRTEC) 10 mg tablet Take 1 tablet by mouth once daily as needed. aspirin, enteric coated (ASPIRIN, ENTERIC COATED) 81 mg EC tablet Take 1 tablet by mouth once daily. cyanocobalamin, vitamin B-12, 5,000 mcg subl Dissolve under the tongue once daily. ascorbic acid, vitamin C, (VITAMIN C) 500 mg tablet Take 1,000 mg by mouth once daily. biotin 5,000 mcg ODT Take 1 tablet by mouth once daily. polyethylene glycol 3350 (MIRALAX) 17 gram/dose powder Take 17 g by mouth as directed. FAMILY HISTORY Problem Relation Age of Onset Hypertension Mother Diabetes Mother Lipids Mother Hypertension Father Diabetes Father Lipids Father Heart Father Triple bypass other (AAA) Father Cancer Paternal Grandmother uterine cancer Social History Tobacco Use Smoking status: Never Smokeless tobacco: Never Vaping Use Vaping status: Never Used Substance Use Topics Alcohol use: Yes Comment: Rarely Drug use: No BP 102/67 Pulse 75 Temp 36.1 C (97 F) Resp 20 SpO2 95% Review of Systems Constitutional: Positive for malaise/fatigue. Negative for chills and fever. HENT: Positive for congestion and sinus pain. Negative for ear discharge, ear pain and sore throat. Eyes: Negative for blurred vision, pain, discharge and redness. Respiratory: Positive for cough and sputum production. Negative for hemoptysis, shortness of breath, wheezing and stridor. Cardiovascular: Negative for chest pain. Gastrointestinal: Negative for abdominal pain, diarrhea, nausea and vomiting. Musculoskeletal: Positive for myalgias. Skin: Negative for itching and rash. Neurological: Negative for dizziness and headaches. Objective Physical Exam Constitutional: General: She is not in acute distress. Appearance: She is not diaphoretic. HENT: Head: Normocephalic. Jaw: No trismus, tenderness, swelling or pain on movement. Right Ear: Tympanic membrane, ear canal and external ear normal. Left Ear: Tympanic membrane, ear canal and external ear normal. Nose: Congestion present. Right Sinus: Maxillary sinus tenderness present. Left Sinus: Maxillary sinus tenderness present. Mouth/Throat: Mouth: Mucous membranes are moist. Pharynx: Oropharynx is clear. Uvula midline. No pharyngeal swelling, oropharyngeal exudate, posterior oropharyngeal erythema or uvula swelling. Eyes: Conjunctiva/sclera: Conjunctivae normal. Pupils: Pupils are equal, round, and reactive to light. Cardiovascular: Rate and Rhythm: Normal rate and regular rhythm. Heart sounds: Normal heart sounds. Pulmonary: Effort: Pulmonary effort is normal. No tachypnea, accessory muscle usage or respiratory distress. Breath sounds: No stridor. Rhonchi present. No wheezing or rales. Abdominal: General: There is no distension. Palpations: Abdomen is soft. Tenderness: There is no abdominal tenderness. There is no guarding or rebound. Musculoskeletal: Cervical back: Normal range of motion and neck supple. No edema, erythema, rigidity or tenderness. No pain with movement. Normal range of motion. Lymphadenopathy: Cervical: No cervical adenopathy. Skin: General: Skin is warm and dry. Neurological: Mental Status: She is alert and oriented to person, place, and time. ASSESSMENT/PLAN: 1. Acute cough - ICD9: 786.2, ICD10: R05.1 (primary diagnosis) - XR CHEST 2V FRONTAL/LAT 2. Community acquired pneumonia, unspecified laterality - ICD9: 486, ICD10: J18.9 IMPRESSION: Patchy left lower lobe opacities concerning for pneumonia. COMMUNICATION: Communicated with REJI GORE on 10/23/2024 10:39 AM via [employer] staff message. Diagnosed with CAP. Placed on dual therapy due to comorbidities. GFR of 35 on October 10. Placed on Augmentin doxycycline. Follow-up with PCP 2 to 3 days reevaluation. Red flags discussed. Patient was educated on supportive therapies. Patient will follow up with primary care provider as needed. Patient was instructed to immediately proceed to emergency room for any new, worsening, or symptoms lasting longer than anticipated. The patient's clinical presentation is otherwise unremarkable at this time. Based on exam and clinical finding, the patient is stable for discharge. Plan of care was discussed with patient. Patient verbalizes understanding and agrees to plan of care. This note was generated using Miew software. It may contain errors in wording, punctuation, or spelling. Reji Gore APRN.BG documented in this encounter [facility] 10-17-2024 Telephone encounter Note Pt calling to check status on the Handicap Parking Permit. Pt advised was done on 10-15-24. Pt will watch her mail for this. Elana Paredes LPN [facility] 10-17-2024 Miscellaneous Notes Pt calling to check status on the Handicap Parking Permit. Pt advised was done on 10-15-24. Pt will watch her mail for this. Elana Paredes LPN documented in this encounter [facility] 10-09-2024 Telephone encounter Note Office visit and cardiac testing received and placed on providers desk. Sari Meredith LPN [facility] 10-09-2024 Miscellaneous Notes Office visit and cardiac testing received and placed on providers desk. Sari Meredith LPN Phoned [facility] and they will be faxing over records. Sari Meredith LPN Awaiting fax Please request most recent OV and cardiac testing, DOS is tomorrow, please request urgent if possible. [facility] documented in this encounter [facility] 10-09-2024 Telephone encounter Note Phoned [facility] and they will be faxing over records. Sari Meredith LPN Awaiting fax [facility] 10-09-2024 Telephone encounter Note Please request most recent OV and cardiac testing, DOS is tomorrow, please request urgent if possible. [facility] 10-09-2024 Telephone encounter Note LM with patient. NPO after MN, may takes meds with sips of water. You will receive a call the day before with an arrival and procedure time. Will need someone to bring you and take you home. Entrance A to the 1st floor surg area. Follow any instructions given regarding blood thinner and Trulicity. [facility] 10-09-2024 Miscellaneous Notes LM with patient. NPO after MN, may takes meds with sips of water. You will receive a call the day before with an arrival and procedure time. Will need someone to bring you and take you home. Entrance A to the 1st floor surg area. Follow any instructions given regarding blood thinner and Trulicity. documented in this encounter [facility] 10-09-2024 History of Present illness Narrative Radiology Service Progress Note PATIENT NAME: Miriam Thomas DATE OF SERVICE: October 09, 2024 TIME: 9:45 AM PATIENT IDENTITY VERIFICATION COMPLETED USING TWO (2) IDENTIFIERS: Name and Date of confirmed by patient verbally. FALL SCREENING: Has the patient had 2 falls in the last year or 1 fall with injury or currently using an Ambulatory Assistive Device (Walker, Cane, Wheelchair, Crutches, etc.)? Yes, Patient High Risk for Falls What interventions were put in place to prevent falls during this visit? Instructed Patient to Call for Help if Needed, Offered Assistance with Transfers/Clothing, Instructed Patient to Remain Seated (Not on Exam Table) Until Exam, and Increased Observations by Caregivers PATIENT GENDER DATA: Female. status: : No status: NO. PATIENT RELEVANT IMPLANT DATA REVIEWED: Yes PATIENT PRESENTS WITH AN IMPLANTABLE OR ATTACHED URGENT CARE: No RADIOLOGY DEPARTMENT: MR; Exam(s) Completed: Lower MSK: Forefoot/Midfoot, right PERIPHERAL IV DATA: Not applicable SIGNED BY: RT Adenike(Zach) October 09, 2024 9:45 AM documented in this encounter [facility] 10-09-2024 Note HNO ID: [id number] Author: BRITTNEY LIANG RT(R) Service: ? Author Type: Technologist Type: Progress Notes Filed: 10/09/2024 09:46 Note Text: Radiology Service Progress Note PATIENT NAME: Miriam Thomas DATE OF SERVICE: October 09, 2024 TIME: 9:45 AM PATIENT IDENTITY VERIFICATION COMPLETED USING TWO (2) IDENTIFIERS: Name and Date of confirmed by patient verbally. FALL SCREENING: Has the patient had 2 falls in the last year or 1 fall with injury or currently using an Ambulatory Assistive Device (Walker, Cane, Wheelchair, Crutches, etc.)? Yes, Patient High Risk for Falls What interventions were put in place to prevent falls during this visit? Instructed Patient to Call for Help if Needed, Offered Assistance with Transfers/Clothing, Instructed Patient to Remain Seated (Not on Exam Table) Until Exam, and Increased Observations by Caregivers PATIENT GENDER DATA: Female. status: : No status: NO. PATIENT RELEVANT IMPLANT DATA REVIEWED: Yes PATIENT PRESENTS WITH AN IMPLANTABLE OR ATTACHED URGENT CARE: No RADIOLOGY DEPARTMENT: MR; Exam(s) Completed: Lower MSK: Forefoot/Midfoot, right PERIPHERAL IV DATA: Not applicable SIGNED BY: RT Adenike(Zach) October 09, 2024 9:45 AM [facility] 10-09-2024 Instructions Holly James APRN.BG - 10/09/2024 8:45 AM EST Images from the original note were not included. [facility] PATIENT PREOPERATIVE INSTRUCTIONS No ref. provider found has scheduled you for your procedure at this surgery center: [facility]: [phone] -- [address] [facility] [id number]. Please read below carefully for your personalized instructions. Dietary Restrictions: - Nothing to eat or drink after midnight except for a sip of water with approved medications. No red/purple coloring and no creamer/sugar Medications: Unless instructed differently below, stay on all of your medications until your surgery. If you start any new medications after today's visit, please contact your surgeon. Pre-Surgery Med Instructions Medication Instructions dulaglutide (TRULICITY) 4.5 mg/0.5 mL pen injector Stop 7 days before surgery insulin glargine 100 unit/mL (3 mL) Insulin: Do not take the morning of surgery. Take 75% of your usual dose the night before surgery if possible. If not possible, take full dose the night before surgery. insulin lispro (HUMALOG KWIKPEN) 100 unit/mL Do not take the day of surgery escitalopram oxalate (LEXAPRO) 20 mg tablet Take the day of surgery with a small sip of water atorvastatin (LIPITOR) 40 mg tablet Take the day of surgery with a small sip of water buPROPion XL (WELLBUTRIN XL) 150 mg 24 hr tablet Take the day of surgery with a small sip of water tamsulosin (FLOMAX) 0.4 mg Take the day of surgery with a small sip of water gabapentin (NEURONTIN) 400 mg capsule Take the day of surgery with a small sip of water Blood-Glucose Sensor (DEXCOM G7 SENSOR) jackson ciclopirox (LOPROX) 0.77 % cream Do not take the day of surgery acyclovir (ZOVIRAX) 400 mg tablet IF needed blood sugar diagnostic (BLOOD GLUCOSE TEST) test strip clobetasol (TEMOVATE) 0.05 % ointment Do not take the day of surgery hydrALAZINE (APRESOLINE) 50 mg tablet Take the day of surgery with a small sip of water pantoprazole DR (PROTONIX) 40 mg tablet Take the day of surgery with a small sip of water carvedilol (COREG) 6.25 mg tablet Take the day of surgery with a small sip of water nystatin (MYCOSTATIN) powder Do not take the day of surgery B complex w-C no.20/folic acid (B COMPLEX WITH C 20-FOLIC ACID ORAL) Stop 7 days before surgery Magnesium Oxide 500 mg tab Stop 7 days before surgery Blood-Glucose Meter,Continuous (DEXCOM G7 ENVELOPE SEALER) misc nitroglycerin sublingual (NITROQUICK) 0.4 mg SL tablet IF needed bacitracin zinc 500 unit/gram ointment Do not take the day of surgery cetirizine (ZYRTEC) 10 mg tablet IF needed aspirin, enteric coated (ASPIRIN, ENTERIC COATED) 81 mg EC tablet Stop 7 days before surgery cyanocobalamin, vitamin B-12, 5,000 mcg subl Stop 7 days before surgery ascorbic acid, vitamin C, (VITAMIN C) 500 mg tablet Stop 7 days before surgery biotin 5,000 mcg ODT Stop 7 days before surgery polyethylene glycol 3350 (MIRALAX) 17 gram/dose powder Do not take the day of surgery If you start any new medications after today's visit, please contact the surgeon's office. If you are currently using a [id number] injectable or oral medication for diabetes or weight loss such as Dulaglutide (Trulicity), Exenatide (Byetta, Bydureon), Liraglutide (Victoza, Saxenda), Semaglutide (Ozempic, Wegovy, Rybelsus), or Tirzepatide (Mounjaro), the medicine should be stopped at least 7 days before surgery. These medicines can cause food to remain in your stomach for a very long time and increase the risks from surgery and anesthesia. Not stopping the medication for a long enough time may result in your surgery being rescheduled. Blood Thinning Medications: - Stop NSAIDS (Ibuprofen, Advil, Aleve, Motrin, Celebrex, Mobic, etc.) 7 days before surgery, as directed by your surgeon. - Stop Aspirin 7 days before surgery, as directed by your surgeon. - Stop ALL herbal and dietary supplements 7 days before surgery. - You may take Tylenol (Acetaminophen) or any of your pain medications that do not contain aspirin or NSAIDS as needed. Important Reminders: - Candy, mints, and tobacco products are NOT permitted the morning of surgery. - Hearing aids, dentures and glasses may be worn the morning of surgery. - NO jewelry, body piercings, makeup, hairpins or contacts are to be worn the day of surgery. If you develop symptoms such as a fever, cold, or flu, or have other changes to your health within TWO DAYS of scheduled surgery or the morning of surgery, please contact the surgery center above. Personal Belongings: -Please have photo ID and insurance cards. -If you do not have a copy of advance directives on file with us, please bring a copy with you on the day of surgery. - Leave ALL valuables and money at home or with family members. - Please bring high-quality footwear, such as sneakers, to the hospital for ambulating post-surgery. For Outpatient Procedures: - YOU MUST HAVE A RESPONSIBLE GARNETTER TAKE YOU HOME. A LINE PULLER OR CAFE LEAD CANNOT BE MADE A RESPONSIBLE GARNETTER. - We recommend that a responsible person stays with you overnight to take care of you. - You cannot stay in a hotel alone after outpatient surgery. You will not be permitted to have your surgery, if you do not have someone to take care of you. Arrival Time for Surgery: - The Surgery Center or hospital where you are having surgery will call the afternoon before surgery (or Sunday for Sunday surgery) with a scheduled arrival time. - If you have not heard by 4 pm, please contact the surgery center above. Please be aware that emergency situations arise, which may delay or change your surgical time. If this happens, we will notify you as soon as possible and regret any inconvenience. If you already have an Advance Directive, please fax a copy to [phone] or email to for it to be added to your chart. If you do not have an Advance Directive, you can find the appropriate form and more information at [email or web address]. We recommend that you complete the Advance Directive form found on the website and bring it with you the day of your surgery. It can be witnessed and scanned into your chart that day. Holly James APRN.BG documented in this encounter [facility] 10-09-2024 History and physical note Images from the original note were not included. [facility] HISTORY AND PHYSICAL EXAMINATION SERVICE DATE: 10/09/2024 SERVICE TIME: 6:52 AM PRIMARY CARE PHYSICIAN: Earl Shepherd MD Assessment Patient has the following medical conditions which may affect raphael-operative course: Diabetic gastroparesis (HCC) Assessment: NPO after MN Hemiparesis affecting dominant side as late effect of stroke (HCC) Assessment: hx, and with left BKA, pt can transfer with stand by assist Essential hypertension Assessment: controlled on rx Last 14 BP Last 14 Encounter BP Readings: Date: BP: 10/09/2024 132/66 09/29/2024 122/62 06/13/2024 157/70 04/03/2024 146/68 03/17/2024 108/58 06/13/2023 130/54 05/15/2023 118/68 04/10/2023 136/82 12/11/2022 122/64 10/12/2021 132/62 10/05/2020 130/70 09/20/2020 150/90 08/31/2020 118/64 08/16/2020 106/58 Hyperlipidemia Assessment: c/w statin Hypertensive CKD (chronic kidney disease) Assessment: Creatinine Date Value Ref Range Status 06/13/2024 1.78 (H) 0.58 - 0.96 mg/dL Final 12/11/2023 1.68 (H) 0.58 - 0.96 mg/dL Final 12/07/2022 1.93 (H) 0.58 - 0.96 mg/dL Final 05/09/2021 1.77 (H) 0.58 - 0.96 mg/dL Final PVD (peripheral vascular disease) ([facility]) Assessment: following vascular, pending procedure, Most recent PVRs showing a TBI on the right of 0.15 with severely diminished waveforms. Previously underwent left leg angiogram with intervention SFA stenting with Dr. 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 Gastroesophageal reflux disease Assessment: controlled on rx Urinary retention Assessment: controlled on rx Type 2 diabetes mellitus with stage 3b chronic kidney disease, with long-term current use of insulin (HCC) Assessment: IDDM Hemoglobin A1C (%) Date Value 06/13/2024 6.1 05/09/2021 5.4 Leukocytosis Assessment: chronic WBC Date Value Ref Range Status 12/11/2023 9.99 3.70 - 11.00 k/uL Final Recurrent major depression in partial remission (HCC) Assessment: stable on rx per pt Obesity, Class I, BMI 30-34.9 Assessment: Body mass index is 33.11 kg/m . JOSE (obstructive sleep apnea) Assessment: cwcp Olsen Activity Status Index: METS: Climb a flight of stairs or walk up a hill (5.50 METs) DASI Score: 5.5 Patient denies any chest pain or undue shortness of breath with the above physical activity. Clinical Frailty Scale: 1. Very fit STOP-Bang Score: Denies snoring loudly Denies feeling tired, fatigued, or sleepy during the daytime Has not been observed to stop breathing or choking/gasping during sleep Denies having high blood pressure BMI less than or equal to 35 kg/m^2 Patient 50 years old or younger Does not have a large neck STOP-Bang Score: 0 [id number] Score: Hypertension history: Yes Stroke/TIA/thromboembolism history: Yes Vascular disease history: Yes Diabetes history: Yes [id number] Score: ANESTHESIA FINDINGS: Intubation History: No history of difficult intubation Significant Anesthesia Considerations: none Airway History: No history of difficult airway I - PHYSICAL EVALUATION AIRWAY Patient intubated: No. Tracheostomy tube not present Mallampati: II. TM distance: >3 FB. Neck ROM: full ROM without neurological symptoms. Mouth opening: adequate. Short neck: no. Thick neck: no Ortiz present: no Lip Bite Test: I Microretrognathia/Micronagthia/Re cessed Chin: No DENTAL Dental findings: teeth intact. Additional comments: +caps/back. II - ANESTHESIA PLAN Anesthetic Plan: other Beta Coty Monitoring Plan Post Procedure Analgesic Plan Prepared for Surgery: optimally prepared for surgery, pending [see comment]. CONSULTS: Patient does not require consults for optimization at this time Planned Anesthetic: other anesthesia choice The Following Tests/Procedures Have Been Initiated: No orders of the defined types were placed in this encounter. REASON FOR VISIT: Miriam Thomas is a 69 year old female who is scheduled for Procedure(s): ANGIOGRAM EXTREMITY UNILATERAL RADIOLOGICAL (Left) at the request of @[email or web address]@ for consultation. My final recommendation will be communicated back to the requesting physician by way of shared medical record or letter. Subjective The patient has the following: COVID-19 Immunization Status Discontinued - Covid-19 Vaccine Discontinued 12/12/2023 Frequency changed to Never by Earl Shepherd MD (Patient Preference - Does not want COVID vaccine. Never had COVID infection) 12/11/2022 Postponed until 12/12/2023 by Earl Shepherd MD (Declined at this time) 04/09/2021 Postponed until 04/09/2022 by Earl Shepherd MD (Declined at this time - Woried about potential side effects; depression and anxiety also) Only the first 3 history entries have been loaded, but more history exists. CHIEF COMPLAINT: Pre-op exam HPI: Miriam Thomas is a 69 year old seen for PAC due to scheduled above surgery because of PAD. 09/29/24, Odin Hanley MD HISTORY OF PRESENT ILLNESS: The patient is a 69-year-old female presenting with a non-healing wound and vascular insufficiency in the right lower extremity. The wound began as a red deedee on the toe months ago and has since been treated with antibiotic creams and bandages without significant improvement. Most recent PVRs showing a TBI on the right of 0.15 with severely diminished waveforms. Previously underwent left leg angiogram with intervention SFA stenting with Dr. 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 History of Type 2 Diabetes and previous strokes with residual weakness predominantly affecting her left side. Additionally, there is chronic kidney disease limiting the use of contrast in vascular imaging studies. Vascular health status: Antiplatelet / Anticoagulation: Coumadin Statin or PCSK9i: atorvastatin REVIEW OF SYSTEMS: General: No weight loss, malaise or fevers. Neurological: Positive for: strokes. Patient's stroke is with residual deficits. Negative for: cerebral palsy, delirium, dementia, headaches, impaired sensorium, multiple sclerosis, Parkinson's disease, peripheral neuropathy, seizures and TIA. Respiratory: Positive for: obstructive sleep apnea and CPAP/BiPAP compliant. Negative for: asthma, COPD, pneumonia within 6 weeks, tobacco use and URI < 2 weeks. Cardiovascular: See HPI. Positive for: hyperlipidemia (on rx), hypertension (on rx) and PVD (revascularization) Negative for: abdominal aortic aneurysm, AICD/PPM, angina, anticoagulation therapy, arrhythmia, atrial fibrillation, CAD, chest pain, CHF, congenital heart defect, DVT/PE, open heart surgery and valve surgery. GI: Positive for: dysphagia (intermittently when eating and talking at the same time) and GERD Negative for: abdominal pain, esophageal stricture, hepatitis, irritable bowel syndrome, inflammatory bowel disease, liver disease, nausea, vomiting and ETOH >2 drinks/day. : +retention, on rx Positive for: urinary incontinence (OAB) and renal failure (following nephro). Patient's renal failure is chronic. Negative for: nephrolithiasis and urinary tract infection. OFFICE RN: Negative for abnormal vaginal bleeding, abnormal vaginal discharge. Endocrine: Positive for: diabetes mellitus. Patient's diabetes mellitus is controlled by insulin and weekly injectable. Negative for: hypothyroidism. Hematology: Positive for: bruises/bleeds easily and chronic anti-coagulation/platelet meds. Patient is on anti-coagulation/platelet medication(s): DOAC and Aspirin. Negative for: anemia and transfusion of at least 4 units within 72 hours prior to surgery. Oncology: No history of CA metastasis, chemo within 30 days, or radiotherapy within 90 days. No history of oncological symptoms or problems. Psych: Positive for: anxiety (on rx) and depression (on rx). Negative for: Marijuana Use. Musculoskeletal: Left BKA Positive for: joint pain. Skin: +toes, diabetic ulcer, following wound care Implanted Devices: No implanted devices. PAST MEDICAL HISTORY Diagnosis Date Anxiety Arthritis Depression MARITZA exposure in utero Diabetes mellitus ([facility]) 1986 Diabetic neuropathy ([facility]) Gangrene ([facility]) Heart attack ([facility]) [address] Adalberto Power [place] Herniated disc Hypertension Muscular deconditioning PVD (peripheral vascular disease) ([facility]) 10/2019 S/P BKA (below knee amputation) unilateral, left ([facility]) Sleep apnea cpap Snoring Stroke ([facility]) 11/2004 and 05/2005 x 2, right sided weakness PAST SURGICAL HISTORY Procedure Laterality Date AMPUTATION OF LOWER LEG Left 07/20/2020 L BKA ANESTH,BRACHIAL/FEMORAL ARTERIOGRAM Left 11/04/2019 Left femoral arteriogram with stenting of left superficial femoral artery. Attempted left popliteal artery thromboembolectomy. Left anterior tibial thromboembolectomy @ [facility] by Dr. Zavaleta AORTOGRAM AND LEG RUNOFF 11/04/2019 1. Abdominal aortogram with bilateral selective lower extremity carbon dioxide runoff @ [facility] by Dr Zavaleta DELIVERY ONLY 1980, 1983, 1985 , low transverse, x 3 COLONOSCOPY FLX DX W/COLLJ SPEC WHEN PFRMD 02/17/16 Colonoscopy (MAC) ESOPHAGOGASTRODUODENOSCOPY TRANSORAL DIAGNOSTIC 11/26/2017 EGD ESOPHAGOGASTRODUODENOSCOPY TRANSORAL DIAGNOSTIC 01/14/2018 EGD PAST SURGICAL HISTORY OF last one in 2006 D&C, multiple x4 PAST SURGICAL HISTORY OF Left 2000 ganglion cyst removed left wrist PAST SURGICAL HISTORY OF Bilateral 07/2013 cataracts TRANSMETATARSAL AMPUTATION/O&P Left 12/12/2019 Transmetatarsal amputation with tendoachilles lengthening left lower extremity FAMILY HISTORY Problem Relation Age of Onset Hypertension Mother Diabetes Mother Lipids Mother Hypertension Father Diabetes Father Lipids Father Heart Father Triple bypass other (AAA) Father Cancer Paternal Grandmother uterine cancer Social History Tobacco Use Smoking status: Never Smokeless tobacco: Never Vaping Use Vaping status: Never Used Substance Use Topics Alcohol use: Yes Comment: Rarely Drug use: No Prior to Admission medications as of 10/09/24 1003 Medication Sig Last Dose Taking dulaglutide (TRULICITY) 4.5 mg/0.5 mL pen injector Inject 4.5 mg subcutaneously one time a week. Gets through [facility] Cares. Taking Yes insulin glargine 100 unit/mL (3 mL) Inject 26 Units subcutaneously every morning. (Basaglar) Patient assistance medication. Taking Yes insulin lispro (HUMALOG KWIKPEN) 100 unit/mL Inject 8 units with breakfast and 4 units with evening meal as directed. Patient assistance medication. Taking Yes escitalopram oxalate (LEXAPRO) 20 mg tablet Take 1 tablet by mouth once daily. Taking Yes atorvastatin (LIPITOR) 40 mg tablet Take 1 tablet by mouth daily at bedtime. For cholesterol. Taking Yes buPROPion XL (WELLBUTRIN XL) 150 mg 24 hr tablet Take 1 tablet by mouth once daily. Taking Yes tamsulosin (FLOMAX) 0.4 mg Take 2 capsules by mouth once daily. Taking Yes gabapentin (NEURONTIN) 400 mg capsule Take 1 capsule by mouth two times a day AND 2 capsules daily at bedtime. Do all this for 90 days. Patient taking differently: Take 1 capsule by mouth in the afternoon AND 2 capsules daily at bedtime. Do all this for 90 days. Yes Blood-Glucose Sensor ([employer] G7 SENSOR) jackson Apply new sensor every ten (10) days. Taking Yes ciclopirox (LOPROX) 0.77 % cream Apply to affected area two times a day. For 2 to 4 weeks till rash resolves. May treat recurrences for rash under abdominal pannus Taking Yes acyclovir (ZOVIRAX) 400 mg tablet Take 1 tablet by mouth two times a day. Taking Yes blood sugar diagnostic (BLOOD GLUCOSE TEST) test strip Test blood sugar(s) 3 to 4 times daily. Dx: Other DM Code E11.51 Insulin: Yes One touch or Accucheck strips or strips covered by her insurance. Taking Yes clobetasol (TEMOVATE) 0.05 % ointment Apply nightly to affected area for 8-12 weeks, then 1-3x weekly for maintenance Taking Yes hydrALAZINE (APRESOLINE) 50 mg tablet Take 1 tablet by mouth two times a day. Hold for SBP less than 120mm HG Taking Yes pantoprazole DR (PROTONIX) 40 mg tablet Take 1 tablet by mouth once daily. Taking Yes carvedilol (COREG) 6.25 mg tablet Take 1 tablet by mouth two times a day with meals. Taking Yes nystatin (MYCOSTATIN) powder Apply 1 application to affected area twice daily as needed. For prevention Taking Yes B complex w-C no.20/folic acid (B COMPLEX WITH C 20-FOLIC ACID ORAL) Take 1 tablet by mouth once daily. Taking Yes Magnesium Oxide 500 mg tab Take 1 tablet by mouth once daily. For constipation Taking Yes Blood-Glucose Meter,Continuous (DEXCOM G7 ENVELOPE SEALER) misc Use to check blood sugar at least four (4) times daily. Taking Yes nitroglycerin sublingual (NITROQUICK) 0.4 mg SL tablet Dissolve 1 tablet under the tongue as needed. As directed Taking Yes bacitracin zinc 500 unit/gram ointment Apply to affected area twice daily. As directed for affected area till healed Taking Yes cetirizine (ZYRTEC) 10 mg tablet Take 1 tablet by mouth once daily as needed. Taking Yes aspirin, enteric coated (ASPIRIN, ENTERIC COATED) 81 mg EC tablet Take 1 tablet by mouth once daily. Taking Yes cyanocobalamin, vitamin B-12, 5,000 mcg subl Dissolve under the tongue once daily. Taking Yes ascorbic acid, vitamin C, (VITAMIN C) 500 mg tablet Take 1,000 mg by mouth once daily. Taking Yes biotin 5,000 mcg ODT Take 1 tablet by mouth once daily. Taking Yes polyethylene glycol 3350 (MIRALAX) 17 gram/dose powder Take 17 g by mouth as directed. Taking Yes Lancets Test blood sugar(s) 3 to 4 times daily. Dx: Other DM Code E11.51 Insulin: Yes apixaban (ELIQUIS) 5 mg tab(s) Take 1 tablet by mouth two times a day. Patient not taking: Reported on 10/09/2024 Not Taking insulin needles, DISPOSABLE, (PEN NEEDLE) 31 gauge x 02/13 Use one needle per dose. 5 per day. Medication Comments documented by Zulay Tejeda on 12/16/2019 at 0947. 12/16/19 The medications are managed by this patient by: PATIENT Zulay Tejeda Pharm-T ALLERGIES Allergen Reactions Meloxicam GI Upset Sulfa (Sulfonamide * Swelling Facial swelling, shortness of breath. Objective PHYSICAL EXAM: General: alert and oriented (x3) and healthy appearance. Pertinent negatives noted - not distressed. Skin: normal color, no rash or lesions. HEENT: EOM intact and pupils equal round. Pertinent negatives noted - no carotid bruit. Cardiovascular: regular rate and rhythm, normal S1 and S2, no rub, murmurs, or gallop. Respiratory: normal breath sounds, no wheezes or crackles. No chest wall deformity or tenderness. Abdomen: soft. Pertinent negatives noted - not tender. Extremities: no deformity, no edema or tenderness, no joint swelling or clubbing. Neurological: normal cognition and motor skills. Gait normal. No weakness or sensory deficit. PAIN ASSESSMENT: VITALS: BP 132/66 Pulse 84 Temp (Src) 98.2 (Temporal) Resp 14 Ht 5' 2 (1.58m) Wt 181 lb (82.1kg) SpO2 97% BMI 33.10 kg/(m^2). Diagnostic tests reviewed for today's visit: Lab Value Units Date High Low HB No results within date range. HCT No results within date range. WBC No results within date range. PLT No results within date range. NA 143 mmol/L 06/13/2024 144 136 K 5.2 mmol/L 06/13/2024 5.1 3.7 GLUC 125 mg/dL 06/13/2024 99 74 BUN 38 mg/dL 06/13/2024 21 7 CREAT 1.78 mg/dL 06/13/2024 0.96 0.58 PTSEC No results within date range. INR No results within date range. APTT No results within date range. ALT 21 U/L 06/13/2024 38 7 AST 15 U/L 06/13/2024 35 13 TBILI 0.2 mg/dL 06/13/2024 1.3 0.2 TSH No results within date range. Lab Value Units Date High Low HCGQT No results within date range. UHCG No results within date range. HCG, BODY* No results within date range. Lab Value Units Date High Low ABORHD No results within date range. ABSCREEN No results within date range. Hemoglobin A1C (%) Date Value 06/13/2024 6.1 12/11/2023 6.1 12/07/2022 5.7 05/09/2021 5.4 06/09/2020 6.3 03/02/2020 6.7 12/05/2019 6.1 05/31/2019 9.3 Hemoglobin A1C (POCT) (%) Date Value 09/03/2019 11.3 No results found for this or any previous visit (from the past 8760 hour(s)). No results found for this or any previous visit (from the past 62819 hour(s)). Instructions Given to Patient: Instructions located in the after visit summary. Patient given verbal and written preop instructions and voices comprehension and compliance. SIGNATURE: Holly James APRN.CNP PATIENT NAME: Miriam Thomas DATE: October 09, 2024 TIME: 8:42 AM PAGER/CONTACT #: [facility] 10-09-2024 History and physical note Images from the original note were not included. [facility] HISTORY AND PHYSICAL EXAMINATION SERVICE DATE: 10/09/2024 SERVICE TIME: 6:52 AM PRIMARY CARE PHYSICIAN: Earl Shepherd MD Assessment Patient has the following medical conditions which may affect raphael-operative course: Diabetic gastroparesis (HCC) Assessment: NPO after MN Hemiparesis affecting dominant side as late effect of stroke (HCC) Assessment: hx, and with left BKA, pt can transfer with stand by assist Essential hypertension Assessment: controlled on rx Last 14 BP Last 14 Encounter BP Readings: Date: BP: 10/09/2024 132/66 09/29/2024 122/62 06/13/2024 157/70 04/03/2024 146/68 03/17/2024 108/58 06/13/2023 130/54 05/15/2023 118/68 04/10/2023 136/82 12/11/2022 122/64 10/12/2021 132/62 10/05/2020 130/70 09/20/2020 150/90 08/31/2020 118/64 08/16/2020 106/58 Hyperlipidemia Assessment: c/w statin Hypertensive CKD (chronic kidney disease) Assessment: Creatinine Date Value Ref Range Status 06/13/2024 1.78 (H) 0.58 - 0.96 mg/dL Final 12/11/2023 1.68 (H) 0.58 - 0.96 mg/dL Final 12/07/2022 1.93 (H) 0.58 - 0.96 mg/dL Final 05/09/2021 1.77 (H) 0.58 - 0.96 mg/dL Final PVD (peripheral vascular disease) ([facility]) Assessment: following vascular, pending procedure, Most recent PVRs showing a TBI on the right of 0.15 with severely diminished waveforms. Previously underwent left leg angiogram with intervention SFA stenting with Dr. 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 Gastroesophageal reflux disease Assessment: controlled on rx Urinary retention Assessment: controlled on rx Type 2 diabetes mellitus with stage 3b chronic kidney disease, with long-term current use of insulin ([facility]) Assessment: IDDM Hemoglobin A1C (%) Date Value 06/13/2024 6.1 05/09/2021 5.4 Leukocytosis Assessment: chronic WBC Date Value Ref Range Status 12/11/2023 9.99 3.70 - 11.00 k/uL Final Recurrent major depression in partial remission (HCC) Assessment: stable on rx per pt Obesity, Class I, BMI 30-34.9 Assessment: Body mass index is 33.11 kg/m . JOSE (obstructive sleep apnea) Assessment: [facility] Activity Status Index: METS: Climb a flight of stairs or walk up a hill (5.50 METs) DASI Score: 5.5 Patient denies any chest pain or undue shortness of breath with the above physical activity. Clinical Frailty Scale: 1. Very fit STOP-Bang Score: Denies snoring loudly Denies feeling tired, fatigued, or sleepy during the daytime Has not been observed to stop breathing or choking/gasping during sleep Denies having high blood pressure BMI less than or equal to 35 kg/m^2 Patient 50 years old or younger Does not have a large neck STOP-Bang Score: 0 [id number] Score: Hypertension history: Yes Stroke/TIA/thromboembolism history: Yes Vascular disease history: Yes Diabetes history: Yes [id number] Score: ANESTHESIA FINDINGS: Intubation History: No history of difficult intubation Significant Anesthesia Considerations: none Airway History: No history of difficult airway I - PHYSICAL EVALUATION AIRWAY Patient intubated: No. Tracheostomy tube not present Mallampati: II. TM distance: >3 FB. Neck ROM: full ROM without neurological symptoms. Mouth opening: adequate. Short neck: no. Thick neck: no Ortiz present: no Lip Bite Test: I Microretrognathia/Micronagthia/Re cessed Chin: No DENTAL Dental findings: teeth intact. Additional comments: +caps/back. II - ANESTHESIA PLAN Anesthetic Plan: other Beta Coty Monitoring Plan Post Procedure Analgesic Plan Prepared for Surgery: optimally prepared for surgery, pending [see comment]. CONSULTS: Patient does not require consults for optimization at this time Planned Anesthetic: other anesthesia choice The Following Tests/Procedures Have Been Initiated: No orders of the defined types were placed in this encounter. REASON FOR VISIT: Miriam Thomas is a 69 year old female who is scheduled for Procedure(s): ANGIOGRAM EXTREMITY UNILATERAL RADIOLOGICAL (Left) at the request of @[email or web address]@ for consultation. My final recommendation will be communicated back to the requesting physician by way of shared medical record or letter. Subjective The patient has the following: COVID-19 Immunization Status Discontinued - Covid-19 Vaccine Discontinued 12/12/2023 Frequency changed to Never by Earl Shepherd MD (Patient Preference - Does not want COVID vaccine. Never had COVID infection) 12/11/2022 Postponed until 12/12/2023 by Earl Shepherd MD (Declined at this time) 04/09/2021 Postponed until 04/09/2022 by Earl Shepherd MD (Declined at this time - Woried about potential side effects; depression and anxiety also) Only the first 3 history entries have been loaded, but more history exists. CHIEF COMPLAINT: Pre-op exam HPI: Miriam Thomas is a 69 year old seen for PAC due to scheduled above surgery because of PAD. 09/29/24, Odin Hanley MD HISTORY OF PRESENT ILLNESS: The patient is a 69-year-old female presenting with a non-healing wound and vascular insufficiency in the right lower extremity. The wound began as a red deedee on the toe months ago and has since been treated with antibiotic creams and bandages without significant improvement. Most recent PVRs showing a TBI on the right of 0.15 with severely diminished waveforms. Previously underwent left leg angiogram with intervention SFA stenting with Dr. 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 History of Type 2 Diabetes and previous strokes with residual weakness predominantly affecting her left side. Additionally, there is chronic kidney disease limiting the use of contrast in vascular imaging studies. Vascular health status: Antiplatelet / Anticoagulation: Coumadin Statin or PCSK9i: atorvastatin REVIEW OF SYSTEMS: General: No weight loss, malaise or fevers. Neurological: Positive for: strokes. Patient's stroke is with residual deficits. Negative for: cerebral palsy, delirium, dementia, headaches, impaired sensorium, multiple sclerosis, Parkinson's disease, peripheral neuropathy, seizures and TIA. Respiratory: Positive for: obstructive sleep apnea and CPAP/BiPAP compliant. Negative for: asthma, COPD, pneumonia within 6 weeks, tobacco use and URI < 2 weeks. Cardiovascular: See HPI. Positive for: hyperlipidemia (on rx), hypertension (on rx) and PVD (revascularization) Negative for: abdominal aortic aneurysm, AICD/PPM, angina, anticoagulation therapy, arrhythmia, atrial fibrillation, CAD, chest pain, CHF, congenital heart defect, DVT/PE, open heart surgery and valve surgery. GI: Positive for: dysphagia (intermittently when eating and talking at the same time) and GERD Negative for: abdominal pain, esophageal stricture, hepatitis, irritable bowel syndrome, inflammatory bowel disease, liver disease, nausea, vomiting and ETOH >2 drinks/day. : +retention, on rx Positive for: urinary incontinence (OAB) and renal failure (following nephro). Patient's renal failure is chronic. Negative for: nephrolithiasis and urinary tract infection. OFFICE RN: Negative for abnormal vaginal bleeding, abnormal vaginal discharge. Endocrine: Positive for: diabetes mellitus. Patient's diabetes mellitus is controlled by insulin and weekly injectable. Negative for: hypothyroidism. Hematology: Positive for: bruises/bleeds easily and chronic anti-coagulation/platelet meds. Patient is on anti-coagulation/platelet medication(s): DOAC and Aspirin. Negative for: anemia and transfusion of at least 4 units within 72 hours prior to surgery. Oncology: No history of CA metastasis, chemo within 30 days, or radiotherapy within 90 days. No history of oncological symptoms or problems. Psych: Positive for: anxiety (on rx) and depression (on rx). Negative for: Marijuana Use. Musculoskeletal: Left BKA Positive for: joint pain. Skin: +toes, diabetic ulcer, following wound care Implanted Devices: No implanted devices. PAST MEDICAL HISTORY Diagnosis Date Anxiety Arthritis Depression MARITZA exposure in utero Diabetes mellitus ([facility]) 1986 Diabetic neuropathy ([facility]) Gangrene ([facility]) Heart attack ([facility]) [address] [address] Adalberto Power [place] Herniated disc Hypertension Muscular deconditioning PVD (peripheral vascular disease) ([facility]) 10/2019 S/P BKA (below knee amputation) unilateral, left ([facility]) Sleep apnea cpap Snoring Stroke ([facility]) 11/2004 and 05/2005 x 2, right sided weakness PAST SURGICAL HISTORY Procedure Laterality Date AMPUTATION OF LOWER LEG Left 07/20/2020 L BKA ANESTH,BRACHIAL/FEMORAL ARTERIOGRAM Left 11/04/2019 Left femoral arteriogram with stenting of left superficial femoral artery. Attempted left popliteal artery thromboembolectomy. Left anterior tibial thromboembolectomy @ [facility] by Dr. Zavaleta AORTOGRAM AND LEG RUNOFF 11/04/2019 1. Abdominal aortogram with bilateral selective lower extremity carbon dioxide runoff @ [facility] by Dr Zavaleta DELIVERY ONLY 1980, 1983, 1985 , low transverse, x 3 COLONOSCOPY FLX DX W/COLLJ SPEC WHEN PFRMD 02/17/16 Colonoscopy (MAC) ESOPHAGOGASTRODUODENOSCOPY TRANSORAL DIAGNOSTIC 11/26/2017 EGD ESOPHAGOGASTRODUODENOSCOPY TRANSORAL DIAGNOSTIC 01/14/2018 EGD PAST SURGICAL HISTORY OF last one in 2006 D&C, multiple x4 PAST SURGICAL HISTORY OF Left 2000 ganglion cyst removed left wrist PAST SURGICAL HISTORY OF Bilateral 07/2013 cataracts TRANSMETATARSAL AMPUTATION/O&P Left 12/12/2019 Transmetatarsal amputation with tendoachilles lengthening left lower extremity FAMILY HISTORY Problem Relation Age of Onset Hypertension Mother Diabetes Mother Lipids Mother Hypertension Father Diabetes Father Lipids Father Heart Father Triple bypass other (AAA) Father Cancer Paternal Grandmother uterine cancer Social History Tobacco Use Smoking status: Never Smokeless tobacco: Never Vaping Use Vaping status: Never Used Substance Use Topics Alcohol use: Yes Comment: Rarely Drug use: No Prior to Admission medications as of 10/09/24 1003 Medication Sig Last Dose Taking dulaglutide (TRULICITY) 4.5 mg/0.5 mL pen injector Inject 4.5 mg subcutaneously one time a week. Gets through [employer]. Taking Yes insulin glargine 100 unit/mL (3 mL) Inject 26 Units subcutaneously every morning. (Basaglar) Patient assistance medication. Taking Yes insulin lispro (HUMALOG KWIKPEN) 100 unit/mL Inject 8 units with breakfast and 4 units with evening meal as directed. Patient assistance medication. Taking Yes escitalopram oxalate (LEXAPRO) 20 mg tablet Take 1 tablet by mouth once daily. Taking Yes atorvastatin (LIPITOR) 40 mg tablet Take 1 tablet by mouth daily at bedtime. For cholesterol. Taking Yes buPROPion XL (WELLBUTRIN XL) 150 mg 24 hr tablet Take 1 tablet by mouth once daily. Taking Yes tamsulosin (FLOMAX) 0.4 mg Take 2 capsules by mouth once daily. Taking Yes gabapentin (NEURONTIN) 400 mg capsule Take 1 capsule by mouth two times a day AND 2 capsules daily at bedtime. Do all this for 90 days. Patient taking differently: Take 1 capsule by mouth in the afternoon AND 2 capsules daily at bedtime. Do all this for 90 days. Yes Blood-Glucose Sensor (Click[employer] G7 SENSOR) jackson Apply new sensor every ten (10) days. Taking Yes ciclopirox (LOPROX) 0.77 % cream Apply to affected area two times a day. For 2 to 4 weeks till rash resolves. May treat recurrences for rash under abdominal pannus Taking Yes acyclovir (ZOVIRAX) 400 mg tablet Take 1 tablet by mouth two times a day. Taking Yes blood sugar diagnostic (BLOOD GLUCOSE TEST) test strip Test blood sugar(s) 3 to 4 times daily. Dx: Other DM Code E11.51 Insulin: Yes One touch or Accucheck strips or strips covered by her insurance. Taking Yes clobetasol (TEMOVATE) 0.05 % ointment Apply nightly to affected area for 8-12 weeks, then 1-3x weekly for maintenance Taking Yes hydrALAZINE (APRESOLINE) 50 mg tablet Take 1 tablet by mouth two times a day. Hold for SBP less than 120mm HG Taking Yes pantoprazole DR (PROTONIX) 40 mg tablet Take 1 tablet by mouth once daily. Taking Yes carvedilol (COREG) 6.25 mg tablet Take 1 tablet by mouth two times a day with meals. Taking Yes nystatin (MYCOSTATIN) powder Apply 1 application to affected area twice daily as needed. For prevention Taking Yes B complex w-C no.20/folic acid (B COMPLEX WITH C 20-FOLIC ACID ORAL) Take 1 tablet by mouth once daily. Taking Yes Magnesium Oxide 500 mg tab Take 1 tablet by mouth once daily. For constipation Taking Yes Blood-Glucose Meter,Continuous (Planspot G7 ENVELOPE SEALER) misc Use to check blood sugar at least four (4) times daily. Taking Yes nitroglycerin sublingual (NITROQUICK) 0.4 mg SL tablet Dissolve 1 tablet under the tongue as needed. As directed Taking Yes bacitracin zinc 500 unit/gram ointment Apply to affected area twice daily. As directed for affected area till healed Taking Yes cetirizine (ZYRTEC) 10 mg tablet Take 1 tablet by mouth once daily as needed. Taking Yes aspirin, enteric coated (ASPIRIN, ENTERIC COATED) 81 mg EC tablet Take 1 tablet by mouth once daily. Taking Yes cyanocobalamin, vitamin B-12, 5,000 mcg subl Dissolve under the tongue once daily. Taking Yes ascorbic acid, vitamin C, (VITAMIN C) 500 mg tablet Take 1,000 mg by mouth once daily. Taking Yes biotin 5,000 mcg ODT Take 1 tablet by mouth once daily. Taking Yes polyethylene glycol 3350 (MIRALAX) 17 gram/dose powder Take 17 g by mouth as directed. Taking Yes Lancets Test blood sugar(s) 3 to 4 times daily. Dx: Other DM Code E11.51 Insulin: Yes apixaban (ELIQUIS) 5 mg tab(s) Take 1 tablet by mouth two times a day. Patient not taking: Reported on 10/09/2024 Not Taking insulin needles, DISPOSABLE, (PEN NEEDLE) 31 gauge x 5/16 Use one needle per dose. 5 per day. Medication Comments documented by Zulay Tejeda on 12/16/2019 at 0947. 12/16/19 The medications are managed by this patient by: PATIENT Zulay Velázquez Nikhil Pharm-T ALLERGIES Allergen Reactions Meloxicam GI Upset Sulfa (Sulfonamide * Swelling Facial swelling, shortness of breath. Objective PHYSICAL EXAM: General: alert and oriented (x3) and healthy appearance. Pertinent negatives noted - not distressed. Skin: normal color, no rash or lesions. HEENT: EOM intact and pupils equal round. Pertinent negatives noted - no carotid bruit. Cardiovascular: regular rate and rhythm, normal S1 and S2, no rub, murmurs, or gallop. Respiratory: normal breath sounds, no wheezes or crackles. No chest wall deformity or tenderness. Abdomen: soft. Pertinent negatives noted - not tender. Extremities: no deformity, no edema or tenderness, no joint swelling or clubbing. Neurological: normal cognition and motor skills. Gait normal. No weakness or sensory deficit. PAIN ASSESSMENT: VITALS: BP 132/66 Pulse 84 Temp (Src) 98.2 (Temporal) Resp 14 Ht 5' 2 (1.58m) Wt 181 lb (82.1kg) SpO2 97% BMI 33.10 kg/(m^2). Diagnostic tests reviewed for today's visit: Lab Value Units Date High Low HB No results within date range. HCT No results within date range. WBC No results within date range. PLT No results within date range. NA 143 mmol/L 06/13/2024 144 136 K 5.2 mmol/L 06/13/2024 5.1 3.7 GLUC 125 mg/dL 06/13/2024 99 74 BUN 38 mg/dL 06/13/2024 21 7 CREAT 1.78 mg/dL 06/13/2024 0.96 0.58 PTSEC No results within date range. INR No results within date range. APTT No results within date range. ALT 21 U/L 06/13/2024 38 7 AST 15 U/L 06/13/2024 35 13 TBILI 0.2 mg/dL 06/13/2024 1.3 0.2 TSH No results within date range. Lab Value Units Date High Low HCGQT No results within date range. UHCG No results within date range. HCG, BODY* No results within date range. Lab Value Units Date High Low ABORHD No results within date range. ABSCREEN No results within date range. Hemoglobin A1C (%) Date Value 06/13/2024 6.1 12/11/2023 6.1 12/07/2022 5.7 05/09/2021 5.4 06/09/2020 6.3 03/02/2020 6.7 12/05/2019 6.1 05/31/2019 9.3 Hemoglobin A1C (POCT) (%) Date Value 09/03/2019 11.3 No results found for this or any previous visit (from the past 8760 hour(s)). No results found for this or any previous visit (from the past 18869 hour(s)). Instructions Given to Patient: Instructions located in the after visit summary. Patient given verbal and written preop instructions and voices comprehension and compliance. SIGNATURE: Holly James APRN.CNP PATIENT NAME: Miriam Thomas DATE: October 09, 2024 TIME: 8:42 AM PAGER/CONTACT #: documented in this encounter [facility] 10-08-2024 Telephone encounter Note Spoke with patient medication instructions reviewed. Per Dr. Alexandria castro to take 1/2 her normal am dose of long acting insulin. Will hold short acting insulin and has been holding Eliquis as advised. Patient will have PAT testing tomorrow. [facility] 10-08-2024 Miscellaneous Notes Spoke with patient medication instructions reviewed. Per Dr. Alexandria castro to take 1/2 her normal am dose of long acting insulin. Will hold short acting insulin and has been holding Eliquis as advised. Patient will have PAT testing tomorrow. PT is requesting a return call to go over medication and insulin instructions for the morning of her up coming procedure. Call [phone]. documented in this encounter [facility] 10-08-2024 Telephone encounter Note PT is requesting a return call to go over medication and insulin instructions for the morning of her up coming procedure. Call [phone]. [facility] 10-03-2024 Telephone encounter Note Patient requesting handicap placard renewal. Patient would like this mailed to her once completed. Address on record has been verified as correct. Haley Huang RN [facility] 10-03-2024 Miscellaneous Notes Patient requesting handicap placard renewal. Patient would like this mailed to her once completed. Address on record has been verified as correct. Haley Huang RN documented in this encounter [facility] 10-02-2024 Instructions Maddi Gordon DPM - 10/02/2024 2:51 PM EST Continue betadine to the toe wounds Please follow up with the MRI Please monitor feet for any changes to the feet including more drainage, swelling, redness. Follow up with Vascular surgery for angiogram on 10/10/2023 documented in this encounter [facility] 10-02-2024 Note HNO ID: [id number] Author: LETI ROGER DPM Service: ? Author Type: Physician Type: Progress Notes Filed: 10/06/2024 14:10 Note Text: Chief Complaint: Right 2nd digit wound/discoloration HPI: This 69 year old female with PMH indicated below presents complaining of changes to her right 2nd digit. Patient is here to review her PVRs and discuss plan for right second digit ulcer. Of note she is status post BKA to the left lower extremity due to PAD. Patient was referred to vascular since last visit by me due to her PVR results. She is scheduled for angiogram for October 10. She states that since last visit the hallux cut from her cutting her nails has now turned into a small wound. She is also concerned that the third toe is also starting to change colors too. She denies any pain to the site. She states she has been applying Betadine and covering with bandage daily. States she has been ambulating in normal shoe gear. She denies constitutional symptoms at this time. No other pedal complaints. Last HgbA1c% is 5.7% PCP: Earl Shepherd MD: PAST MEDICAL HISTORY Diagnosis Date Anxiety Arthritis Depression MARITZA exposure in utero Diabetes mellitus ([facility]) 1986 Diabetic neuropathy ([facility]) Gangrene ([facility]) Heart attack ([facility]) [address] Adalberto Power [place] Herniated disc Hypertension Muscular deconditioning PVD (peripheral vascular disease) ([facility]) 10/2019 S/P BKA (below knee amputation) unilateral, left ([facility]) Sleep apnea cpap Snoring Stroke ([facility]) 11/2004 and 05/2005 x 2, right sided weakness : Current Outpatient Medications Medication Sig dulaglutide (TRULICITY) 4.5 mg/0.5 mL pen injector Inject 4.5 mg subcutaneously one time a week. Gets through [employer]. insulin glargine 100 unit/mL (3 mL) Inject 26 Units subcutaneously every morning. (Basaglar) Patient assistance medication. insulin lispro (HUMALOG KWIKPEN) 100 unit/mL Inject 8 units with breakfast and 4 units with evening meal as directed. Patient assistance medication. escitalopram oxalate (LEXAPRO) 20 mg tablet Take 1 tablet by mouth once daily. atorvastatin (LIPITOR) 40 mg tablet Take 1 tablet by mouth daily at bedtime. For cholesterol. buPROPion XL (WELLBUTRIN XL) 150 mg 24 hr tablet Take 1 tablet by mouth once daily. tamsulosin (FLOMAX) 0.4 mg Take 2 capsules by mouth once daily. Blood-Glucose Sensor (ClickFoxCOM G7 SENSOR) jackson Apply new sensor every ten (10) days. ciclopirox (LOPROX) 0.77 % cream Apply to affected area two times a day. For 2 to 4 weeks till rash resolves. May treat recurrences for rash under abdominal pannus acyclovir (ZOVIRAX) 400 mg tablet Take 1 tablet by mouth two times a day. blood sugar diagnostic (BLOOD GLUCOSE TEST) test strip Test blood sugar(s) 3 to 4 times daily. Dx: Other DM Code E11.51 Insulin: Yes One touch or Accucheck strips or strips covered by her insurance. Lancets Test blood sugar(s) 3 to 4 times daily. Dx: Other DM Code E11.51 Insulin: Yes clobetasol (TEMOVATE) 0.05 % ointment Apply nightly to affected area for 8-12 weeks, then 1-3x weekly for maintenance apixaban (ELIQUIS) 5 mg tab(s) Take 1 tablet by mouth two times a day. hydrALAZINE (APRESOLINE) 50 mg tablet Take 1 tablet by mouth two times a day. Hold for SBP less than 120mm HG pantoprazole DR (PROTONIX) 40 mg tablet Take 1 tablet by mouth once daily. carvedilol (COREG) 6.25 mg tablet Take 1 tablet by mouth two times a day with meals. nystatin (MYCOSTATIN) powder Apply 1 application to affected area twice daily as needed. For prevention B complex w-C no.20/folic acid (B COMPLEX WITH C 20-FOLIC ACID ORAL) Take 1 tablet by mouth once daily. Magnesium Oxide 500 mg tab Take 1 tablet by mouth once daily. For constipation Blood-Glucose Meter,Continuous (DEXCOM G7 ENVELOPE SEALER) misc Use to check blood sugar at least four (4) times daily. nitroglycerin sublingual (NITROQUICK) 0.4 mg SL tablet Dissolve 1 tablet under the tongue as needed. As directed insulin needles, DISPOSABLE, (PEN NEEDLE) 31 gauge x 5/16 Use one needle per dose. 5 per day. bacitracin zinc 500 unit/gram ointment Apply to affected area twice daily. As directed for affected area till healed cetirizine (ZYRTEC) 10 mg tablet Take 1 tablet by mouth once daily as needed. aspirin, enteric coated (ASPIRIN, ENTERIC COATED) 81 mg EC tablet Take 1 tablet by mouth once daily. cyanocobalamin, vitamin B-12, 5,000 mcg subl Dissolve under the tongue once daily. ascorbic acid, vitamin C, (VITAMIN C) 500 mg tablet Take 1,000 mg by mouth once daily. biotin 5,000 mcg ODT Take 1 tablet by mouth once daily. polyethylene glycol 3350 (MIRALAX) 17 gram/dose powder Take 17 g by mouth as directed. gabapentin (NEURONTIN) 400 mg capsule Take 1 capsule by mouth two times a day AND 2 capsules daily at bedtime. Do all this for 90 days. (Patient taking differently: Take 1 capsule by mouth in the afternoon AND 2 capsules daily at bedtime. (more content not included)... [facility] 10-02-2024 History of Present illness Narrative Chief Complaint: Right 2nd digit wound/discoloration HPI: This 69 year old female with PMH indicated below presents complaining of changes to her right 2nd digit. Patient is here to review her PVRs and discuss plan for right second digit ulcer. Of note she is status post BKA to the left lower extremity due to PAD. Patient was referred to vascular since last visit by me due to her PVR results. She is scheduled for angiogram for October 10. She states that since last visit the hallux cut from her cutting her nails has now turned into a small wound. She is also concerned that the third toe is also starting to change colors too. She denies any pain to the site. She states she has been applying Betadine and covering with bandage daily. States she has been ambulating in normal shoe gear. She denies constitutional symptoms at this time. No other pedal complaints. Last HgbA1c% is 5.7% PCP: Earl Shepherd MD: PAST MEDICAL HISTORY Diagnosis Date Anxiety Arthritis Depression MARITZA exposure in utero Diabetes mellitus ([facility]) 1986 Diabetic neuropathy ([facility]) Gangrene ([facility]) Heart attack ([facility]) [address] [employer] [address] Adalberto Power [place] Herniated disc Hypertension Muscular deconditioning PVD (peripheral vascular disease) ([facility]) 10/2019 S/P BKA (below knee amputation) unilateral, left ([facility]) Sleep apnea cpap Snoring Stroke ([facility]) 11/2004 and 05/2005 x 2, right sided weakness : Current Outpatient Medications Medication Sig dulaglutide (TRULICITY) 4.5 mg/0.5 mL pen injector Inject 4.5 mg subcutaneously one time a week. Gets through [facility]. insulin glargine 100 unit/mL (3 mL) Inject 26 Units subcutaneously every morning. (Basaglar) Patient assistance medication. insulin lispro (HUMALOG KWIKPEN) 100 unit/mL Inject 8 units with breakfast and 4 units with evening meal as directed. Patient assistance medication. escitalopram oxalate (LEXAPRO) 20 mg tablet Take 1 tablet by mouth once daily. atorvastatin (LIPITOR) 40 mg tablet Take 1 tablet by mouth daily at bedtime. For cholesterol. buPROPion XL (WELLBUTRIN XL) 150 mg 24 hr tablet Take 1 tablet by mouth once daily. tamsulosin (FLOMAX) 0.4 mg Take 2 capsules by mouth once daily. Blood-Glucose Sensor (Planspot G7 SENSOR) jackson Apply new sensor every ten (10) days. ciclopirox (LOPROX) 0.77 % cream Apply to affected area two times a day. For 2 to 4 weeks till rash resolves. May treat recurrences for rash under abdominal pannus acyclovir (ZOVIRAX) 400 mg tablet Take 1 tablet by mouth two times a day. blood sugar diagnostic (BLOOD GLUCOSE TEST) test strip Test blood sugar(s) 3 to 4 times daily. Dx: Other DM Code E11.51 Insulin: Yes One touch or Accucheck strips or strips covered by her insurance. Lancets Test blood sugar(s) 3 to 4 times daily. Dx: Other DM Code E11.51 Insulin: Yes clobetasol (TEMOVATE) 0.05 % ointment Apply nightly to affected area for 8-12 weeks, then 1-3x weekly for maintenance apixaban (ELIQUIS) 5 mg tab(s) Take 1 tablet by mouth two times a day. hydrALAZINE (APRESOLINE) 50 mg tablet Take 1 tablet by mouth two times a day. Hold for SBP less than 120mm HG pantoprazole DR (PROTONIX) 40 mg tablet Take 1 tablet by mouth once daily. carvedilol (COREG) 6.25 mg tablet Take 1 tablet by mouth two times a day with meals. nystatin (MYCOSTATIN) powder Apply 1 application to affected area twice daily as needed. For prevention B complex w-C no.20/folic acid (B COMPLEX WITH C 20-FOLIC ACID ORAL) Take 1 tablet by mouth once daily. Magnesium Oxide 500 mg tab Take 1 tablet by mouth once daily. For constipation Blood-Glucose Meter,Continuous (DEXCOM G7 ENVELOPE SEALER) misc Use to check blood sugar at least four (4) times daily. nitroglycerin sublingual (NITROQUICK) 0.4 mg SL tablet Dissolve 1 tablet under the tongue as needed. As directed insulin needles, DISPOSABLE, (PEN NEEDLE) 31 gauge x 5/16 Use one needle per dose. 5 per day. bacitracin zinc 500 unit/gram ointment Apply to affected area twice daily. As directed for affected area till healed cetirizine (ZYRTEC) 10 mg tablet Take 1 tablet by mouth once daily as needed. aspirin, enteric coated (ASPIRIN, ENTERIC COATED) 81 mg EC tablet Take 1 tablet by mouth once daily. cyanocobalamin, vitamin B-12, 5,000 mcg subl Dissolve under the tongue once daily. ascorbic acid, vitamin C, (VITAMIN C) 500 mg tablet Take 1,000 mg by mouth once daily. biotin 5,000 mcg ODT Take 1 tablet by mouth once daily. polyethylene glycol 3350 (MIRALAX) 17 gram/dose powder Take 17 g by mouth as directed. gabapentin (NEURONTIN) 400 mg capsule Take 1 capsule by mouth two times a day AND 2 capsules daily at bedtime. Do all this for 90 days. (Patient taking differently: Take 1 capsule by mouth in the afternoon AND 2 capsules daily at bedtime. Do all this for 90 days.) berberine/herbal complex no.18 (BERBERINE-HERBAL COMB NO.18 ORAL) Take 1,200 mg by mouth once daily. No current facility-administered medications for this visit. : ALLERGIES Allergen Reactions Meloxicam GI Upset Sulfa (Sulfonamide * Swelling Facial swelling, shortness of breath. : REVIEW OF SYSTEMS See tech note MSK: + as noted in HPI. Physical Exam: Patient is alert and oriented x 3 in NADPatient is a 69 year old female who appears well developed, well nourished and with good attention to hygiene and body habitus. Resp 18 Ht 157.5 cm (5' 2) Wt 82.1 kg (181 lb) BMI 33.11 kg/m Right lower extremity focused examination, left below-knee amputation. Vascular: DP and PT pulses are nonpalpable. CFT less than 5 seconds to all digits. Skin temperature is warm to cool from proximal to distal. Hair growth is absent. Minimal edema to right second digit. No varicosities noted. No increase in warmth noted to the right second digit Neuro: Light touch intact. Protective sensation absent pedal sites via [place] 5.07 monofilament. Derm: Skin texture and turgor within normal limits. Toenails 1 through 5 of the right foot are mildly thickened. Webspaces 1-4 clean, dry, intact. There is a small wound noted to the medial aspect of the right distal tip of the hallux that is starting to form an eschar, there is a stable eschar noted to the distal tip of the second digit to the level of the DIPJ. There is also purpura discoloration noted to the distal tip of the third digit right foot. No drainage noted. No malodor. No exposed bone or tendon. No cellulitis. No acute signs of infection. Musculoskeletal/Orthopaedic: General foot morphology: Decreased medial longitudinal arch +5/5 muscle strength Dorsiflexion, Plantarflexion, Inversion, Eversion ROM of the 1st MTPJ is decreased without pain or crepitus. ROM of the MTJ/STJ is decreased without pain or crepitus. Ankle joint ROM is decreased no pain on palpation to the right second digit BKA left LE Last XR Foot - Impression Only XR FOOT GENERAL 3V AP/LAT/OBL RIGHT Exam End: 09/17/2024 10:36 AM (Final result) Impression: IMPRESSION: Osteomyelitis 2nd toe distal phalanx tuft. Appropriate clinical follow-up recommended ACTIONABLE RESULT: FOLLOW-UP Acuity: Actionable Findings: Musculoskeletal/Rheumatologic System Routing Code: MSK_1 Recommendation: Unlisted Recommendation (see report) Time Frame: Additional evaluation as described in the impression... PVR September 22, 2024 IMPRESSION: MODERATE TO MARKED DIFFUSE DISEASE ON THE RIGHT INCREASING DISTALLY. Comparison with 12/13/2020 pulse volume recording shows marked worsening of right digit pressure index at 0.15 now, versus 0.65 previously. Comparison of right pulse volume recordings shows marked dampening and slowing of rise times at all levels compared with previously ASSESSMENT: This 69 year old female patient presents today with PAD, status post left lower extremity BKA, with stable necrotic changes to distal tips of digits 1 and 2 now with concerns for changes to digit 3 to the right foot. Plan: - A history and physical examination were preformed. The patient was educated on clinical and radiographic findings, diagnosis and treatment plans. Patient state that she understands all that has been explained and all questions were answered to her apparent satisfaction. - Etiology and treatment options were discussed with the patient. -Reviewed PVRs with patient showing arterial disease to the right lower extremity. Has seen vascular and is scheduled for angio -Continue local wound care with Betadine DSD daily. Advised patient to keep site clean and dry. -We will obtain MRI as x-ray did show concern for osteomyelitis to the distal tip of the second digit. Clinical does not appear like osteo. -Educated on signs and symptoms to watch for and instructed to call if any should arise. Follow-up 2 weeks. Maddi Gordon DPM PGY3 Patient was seen, evaluated, discussed and treated with the above resident, all garcia components of the exam and treatment were reviewed. I agree with the findings and treatment plan as outlined the above note. Leti Roger DPM documented in this encounter [facility] 09-29-2024 Note HNO ID: [id number] Author: ODIN DOBBINS MD Service: ? Author Type: Physician Type: Progress Notes Filed: 09/29/2024 17:00 Note Text: Heart , Vascular and Thoracic [place] DEPARTMENT OF VASCULAR SURGERY OUTPATIENT VISIT DATE September 29, 2024 OUTPATIENT VISIT TYPE CONSULTATION PRIMARY CARE PHYSICIAN: Earl Shepherd MD REFERRING PROVIDER: Leti Roger [address] [address] Consult requested for an opinion regarding the evaluation and treatment of the above. My final impression and recommendations will be communicated back to the requesting physician by way of the shared medical record or letter via US mail. CHIEF COMPLAINT: Right digit dry gangrene HISTORY OF PRESENT ILLNESS: The patient is a 69-year-old female presenting with a non-healing wound and vascular insufficiency in the right lower extremity. The wound began as a red deedee on the toe months ago and has since been treated with antibiotic creams and bandages without significant improvement. Most recent PVRs showing a TBI on the right of 0.15 with severely diminished waveforms. Previously underwent left leg angiogram with intervention SFA stenting with Dr. 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 History of Type 2 Diabetes and previous strokes with residual weakness predominantly affecting her left side. Additionally, there is chronic kidney disease limiting the use of contrast in vascular imaging studies. Vascular health status: Antiplatelet / Anticoagulation: Coumadin Statin or PCSK9i: atorvastatin Past Vascular Surgeries: Recent Surgeries this specialty 07/20/2020 (4yr) AMPUTATION BELOW KNEE EXTREMITY LOWER (Left) Stacy Salomon MD; Livier Garza MD; Jeanmarie Senior DO - Posted 11/04/2019 (4yr) EVACUATION CLOT ARTERIAL WITH INCISION LOWER EXTREMITY; EMBOLECTOMY AORTOILIAC ARTERY VIA LEG INCISION; REVASC ENDOVASC PERCUT FEM/POP ART W/TRANS STENT PLAC?T W/ANGIO/W/IN THE SAME VESSEL WHEN PERFORM; TRANSCATHETER THERAPY ARTERIAL INFUSION FOR THROMBOLYSIS OTHER THAN CORONARY W/ RADIOLOGICAL SUPERVISION/INTERPRETATION INITIAL TREATMENT DAY; ANGIOGRAM EXTREMITY BILATERAL RADIOLOGICAL; AORTOGRAM ABDOMINAL (Left; Left; Left; Left; Left; Left) Mart Zavaleta MD - Posted MEDICATIONS: dulaglutide (TRULICITY) 4.5 mg/0.5 mL pen injector Inject 4.5 mg subcutaneously one time a week. Gets through [facility]. insulin glargine 100 unit/mL (3 mL) Inject 26 Units subcutaneously every morning. (Basaglar) Patient assistance medication. insulin lispro (HUMALOG KWIKPEN) 100 unit/mL Inject 8 units with breakfast and 4 units with evening meal as directed. Patient assistance medication. escitalopram oxalate (LEXAPRO) 20 mg tablet Take 1 tablet by mouth once daily. atorvastatin (LIPITOR) 40 mg tablet Take 1 tablet by mouth daily at bedtime. For cholesterol. buPROPion XL (WELLBUTRIN XL) 150 mg 24 hr tablet Take 1 tablet by mouth once daily. tamsulosin (FLOMAX) 0.4 mg Take 2 capsules by mouth once daily. gabapentin (NEURONTIN) 400 mg capsule Take 1 capsule by mouth two times a day AND 2 capsules daily at bedtime. Do all this for 90 days. (Patient taking differently: Take 1 capsule by mouth in the afternoon AND 2 capsules daily at bedtime. Do all this for 90 days.) Blood-Glucose Sensor (Planspot G7 SENSOR) jackson Apply new sensor every ten (10) days. ciclopirox (LOPROX) 0.77 % cream Apply to affected area two times a day. For 2 to 4 weeks till rash resolves. May treat recurrences for rash under abdominal pannus acyclovir (ZOVIRAX) 400 mg tablet Take 1 tablet by mouth two times a day. blood sugar diagnostic (BLOOD GLUCOSE TEST) test strip Test blood sugar(s) 3 to 4 times daily. Dx: Other DM Code E11.51 Insulin: Yes One touch or Accucheck strips or strips covered by her insurance. Lancets Test blood sugar(s) 3 to 4 times daily. Dx: Other DM Code E11.51 Insulin: Yes clobetasol (TEMOVATE) 0.05 % ointment Apply nightly to affected area for 8-12 weeks, then 1-3x weekly for maintenance apixaban (ELIQUIS) 5 mg tab(s) Take 1 tablet by mouth two times a day. hydrALAZINE (APRESOLINE) 50 mg tablet Take 1 tablet by mouth two times a day. Hold for SBP less than 120mm HG pantoprazole DR (PROTONIX) 40 mg tablet Take 1 tablet by mouth once daily. carvedilol (COREG) 6.25 mg tablet Take 1 tablet by mouth two times a day with meals. nystatin (MYCOSTATIN) powder Apply 1 application to affected area twice daily as needed. For prevention B complex w-C no.20/folic acid (B COMPLEX WITH C 20-FOLIC ACID ORAL) Take 1 tablet by mouth once daily. Magnesium Oxide 500 mg tab Take 1 tablet by mouth once daily. For constipation Blood-Glucose Meter,Continuous (DEXCOM G7 ENVELOPE SEALER) misc Use to check blood sugar at least four (4) times daily. nitroglycerin sublingual (NITROQUICK) 0.4 mg SL tablet Dissolve 1 tablet under the tongue as needed. As directed insulin (more content not included)... [facility] 09-29-2024 History of Present illness Narrative Images from the original note were not included. Heart , Vascular and Thoracic [place] DEPARTMENT OF VASCULAR SURGERY OUTPATIENT VISIT DATE September 29, 2024 OUTPATIENT VISIT TYPE CONSULTATION PRIMARY CARE PHYSICIAN: Earl Shepherd MD REFERRING PROVIDER: Leit Roger [address] [facility] [address] [facility] [id number] Consult requested for an opinion regarding the evaluation and treatment of the above. My final impression and recommendations will be communicated back to the requesting physician by way of the shared medical record or letter via [place] mail. CHIEF COMPLAINT: Right digit dry gangrene HISTORY OF PRESENT ILLNESS: The patient is a 69-year-old female presenting with a non-healing wound and vascular insufficiency in the right lower extremity. The wound began as a red deedee on the toe months ago and has since been treated with antibiotic creams and bandages without significant improvement. Most recent PVRs showing a TBI on the right of 0.15 with severely diminished waveforms. Previously underwent left leg angiogram with intervention SFA stenting with Dr. 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 History of Type 2 Diabetes and previous strokes with residual weakness predominantly affecting her left side. Additionally, there is chronic kidney disease limiting the use of contrast in vascular imaging studies. Vascular health status: Antiplatelet / Anticoagulation: Coumadin Statin or PCSK9i: atorvastatin Past Vascular Surgeries: Recent Surgeries this specialty 07/20/2020 (4yr) AMPUTATION BELOW KNEE EXTREMITY LOWER (Left) Stacy Salomon MD; Livier Garza MD; Jeanmarie Senior DO - Posted 11/04/2019 (4yr) EVACUATION CLOT ARTERIAL WITH INCISION LOWER EXTREMITY; EMBOLECTOMY AORTOILIAC ARTERY VIA LEG INCISION; REVASC ENDOVASC PERCUT FEM/POP ART W/TRANS STENT PLAC T W/ANGIO/W/IN THE SAME VESSEL WHEN PERFORM; TRANSCATHETER THERAPY ARTERIAL INFUSION FOR THROMBOLYSIS OTHER THAN CORONARY W/ RADIOLOGICAL SUPERVISION/INTERPRETATION INITIAL TREATMENT DAY; ANGIOGRAM EXTREMITY BILATERAL RADIOLOGICAL; AORTOGRAM ABDOMINAL (Left; Left; Left; Left; Left; Left) Mart Zavaleta MD - Posted MEDICATIONS: dulaglutide (TRULICITY) 4.5 mg/0.5 mL pen injector Inject 4.5 mg subcutaneously one time a week. Gets through [facility]. insulin glargine 100 unit/mL (3 mL) Inject 26 Units subcutaneously every morning. (Basaglar) Patient assistance medication. insulin lispro (HUMALOG KWIKPEN) 100 unit/mL Inject 8 units with breakfast and 4 units with evening meal as directed. Patient assistance medication. escitalopram oxalate (LEXAPRO) 20 mg tablet Take 1 tablet by mouth once daily. atorvastatin (LIPITOR) 40 mg tablet Take 1 tablet by mouth daily at bedtime. For cholesterol. buPROPion XL (WELLBUTRIN XL) 150 mg 24 hr tablet Take 1 tablet by mouth once daily. tamsulosin (FLOMAX) 0.4 mg Take 2 capsules by mouth once daily. gabapentin (NEURONTIN) 400 mg capsule Take 1 capsule by mouth two times a day AND 2 capsules daily at bedtime. Do all this for 90 days. (Patient taking differently: Take 1 capsule by mouth in the afternoon AND 2 capsules daily at bedtime. Do all this for 90 days.) Blood-Glucose Sensor (DEXCOM G7 SENSOR) jackson Apply new sensor every ten (10) days. ciclopirox (LOPROX) 0.77 % cream Apply to affected area two times a day. For 2 to 4 weeks till rash resolves. May treat recurrences for rash under abdominal pannus acyclovir (ZOVIRAX) 400 mg tablet Take 1 tablet by mouth two times a day. blood sugar diagnostic (BLOOD GLUCOSE TEST) test strip Test blood sugar(s) 3 to 4 times daily. Dx: Other DM Code E11.51 Insulin: Yes One touch or Accucheck strips or strips covered by her insurance. Lancets Test blood sugar(s) 3 to 4 times daily. Dx: Other DM Code E11.51 Insulin: Yes clobetasol (TEMOVATE) 0.05 % ointment Apply nightly to affected area for 8-12 weeks, then 1-3x weekly for maintenance apixaban (ELIQUIS) 5 mg tab(s) Take 1 tablet by mouth two times a day. hydrALAZINE (APRESOLINE) 50 mg tablet Take 1 tablet by mouth two times a day. Hold for SBP less than 120mm HG pantoprazole DR (PROTONIX) 40 mg tablet Take 1 tablet by mouth once daily. carvedilol (COREG) 6.25 mg tablet Take 1 tablet by mouth two times a day with meals. nystatin (MYCOSTATIN) powder Apply 1 application to affected area twice daily as needed. For prevention B complex w-C no.20/folic acid (B COMPLEX WITH C 20-FOLIC ACID ORAL) Take 1 tablet by mouth once daily. Magnesium Oxide 500 mg tab Take 1 tablet by mouth once daily. For constipation Blood-Glucose Meter,Continuous (DEXCOM G7 ENVELOPE SEALER) misc Use to check blood sugar at least four (4) times daily. nitroglycerin sublingual (NITROQUICK) 0.4 mg SL tablet Dissolve 1 tablet under the tongue as needed. As directed insulin needles, DISPOSABLE, (PEN NEEDLE) 31 gauge x 5/16 Use one needle per dose. 5 per day. cetirizine (ZYRTEC) 10 mg tablet Take 1 tablet by mouth once daily as needed. aspirin, enteric coated (ASPIRIN, ENTERIC COATED) 81 mg EC tablet Take 1 tablet by mouth once daily. cyanocobalamin, vitamin B-12, 5,000 mcg subl Dissolve under the tongue once daily. ascorbic acid, vitamin C, (VITAMIN C) 500 mg tablet Take 1,000 mg by mouth once daily. polyethylene glycol 3350 (MIRALAX) 17 gram/dose powder Take 17 g by mouth as directed. berberine/herbal complex no.18 (BERBERINE-HERBAL COMB NO.18 ORAL) Take 1,200 mg by mouth once daily. bacitracin zinc 500 unit/gram ointment Apply to affected area twice daily. As directed for affected area till healed (Patient not taking: Reported on 09/29/2024) biotin 5,000 mcg ODT Take 1 tablet by mouth once daily. (Patient not taking: Reported on 09/29/2024) SOCIAL HISTORY: - Functional Status: Limited mobility, utilizes RLE for transferring - Family: Present with , Ed, who provides support. Social History Tobacco Use Smoking status: Never Smokeless tobacco: Never Vaping Use Vaping status: Never Used Substance Use Topics Alcohol use: Yes Comment: Rarely Drug use: No PAST MEDICAL HISTORY: PAST MEDICAL HISTORY Diagnosis Date Anxiety Arthritis Depression MARITZA exposure in utero Diabetes mellitus ([facility]) 1986 Diabetic neuropathy ([facility]) Gangrene ([facility]) Heart attack ([facility]) [address] Adalberto Power [place] Herniated disc Hypertension Muscular deconditioning PVD (peripheral vascular disease) ([facility]) 10/2019 S/P BKA (below knee amputation) unilateral, left ([facility]) Sleep apnea cpap Snoring Stroke ([facility]) 11/2004 and 05/2005 x 2, right sided weakness PAST SURGICAL HISTORY: PAST SURGICAL HISTORY Procedure Laterality Date AMPUTATION OF LOWER LEG Left 07/20/2020 L BKA ANESTH,BRACHIAL/FEMORAL ARTERIOGRAM Left 11/04/2019 Left femoral arteriogram with stenting of left superficial femoral artery. Attempted left popliteal artery thromboembolectomy. Left anterior tibial thromboembolectomy @ [facility] by Dr. Zavaleta AORTOGRAM AND LEG RUNOFF 11/04/2019 1. Abdominal aortogram with bilateral selective lower extremity carbon dioxide runoff @ [facility] by Dr Zavaleta DELIVERY ONLY 1980, 1983, 1985 , low transverse, x 3 COLONOSCOPY FLX DX W/COLLJ SPEC WHEN PFRMD 02/17/16 Colonoscopy (MAC) ESOPHAGOGASTRODUODENOSCOPY TRANSORAL DIAGNOSTIC 11/26/2017 EGD ESOPHAGOGASTRODUODENOSCOPY TRANSORAL DIAGNOSTIC 01/14/2018 EGD PAST SURGICAL HISTORY OF last one in 2006 D&C, multiple x4 PAST SURGICAL HISTORY OF Left 2000 ganglion cyst removed left wrist PAST SURGICAL HISTORY OF Bilateral 07/2013 cataracts TRANSMETATARSAL AMPUTATION/O&P Left 12/12/2019 Transmetatarsal amputation with tendoachilles lengthening left lower extremity FAMILY HISTORY FAMILY HISTORY Problem Relation Age of Onset Hypertension Mother Diabetes Mother Lipids Mother Hypertension Father Diabetes Father Lipids Father Heart Father Triple bypass other (AAA) Father Cancer Paternal Grandmother uterine cancer ALLERGIES: ALLERGIES Allergen Reactions Meloxicam GI Upset Sulfa (Sulfonamide * Swelling Facial swelling, shortness of breath. COMPLETE REVIEW OF SYSTEMS Comprehensive 11 system review of systems did not reveal any pertinent positives or negatives except per HPI PHYSICAL EXAM: VITALS: BP 122/62 Pulse 70 Ht 5' 2[patient reports[ (1.58m) Wt 181 lb 3.2 oz (82.2kg) SpO2 96% BMI 33.13 kg/(m^2). General: WDWN in NAD Neurologic: Awake, alert and oriented Skin: Normal color HEENT: NCAT, No icterus Carotid: Bruits - none. Pulmonary: Clear to auscultation, non-labored on RA Coronary: Regular rate, no murmurs, JVD Abdomen: Soft, non-tender Extremities: Dry gangrene with ulceration of the right second digit as well as right hallux, L BKA clean, dry, incision intact. No s/s of infection Vascular: Brachial Radial Femoral Popliteal Dorsalis Pedis Posterior Tibial Right Palpable +2 Palpable +2 Palpable +2 Biphasic Signal Biphasic Signal Monophasic Signal Left Palpable +2 Palpable +2 Palpable +1 Palpable 0 BKA BKA DIAGNOSTIC TESTS REVIEWED FOR TODAY'S VISIT: Most recent labs and imaging results IMAGING RESULTS: 09/22/2024 ultrasound PVR IMPRESSION: MODERATE TO MARKED DIFFUSE DISEASE ON THE RIGHT INCREASING DISTALLY. Comparison with 12/13/2020 pulse volume recording shows marked worsening of right digit pressure index at 0.15 now absolute pressure 25, versus 0.65 (114 mmHg) previously. Comparison of right pulse volume recordings shows marked dampening and slowing of rise times at all levels compared with previously 12/13/2020 ultrasound arterial PVR IMPRESSION RIGHT SIDE Resting right ankle brachial index: 1.09 Right toe brachial index: 0.65 Normal ankle brachial index at rest in the right leg. Abnormal toe brachial index at rest is evidence of peripheral artery disease. Right small vessel disease versus vasoconstriction. LEFT SIDE Left ankle: Unable to determine severity of disease. Left BKA. Left distal superficial femoral and/or popliteal disease. Left infrapopliteal disease. ASSESSMENT AND PLAN: 69-year-old female with a history of peripheral artery disease and type 2 diabetes mellitus presenting with non-healing wounds and vascular insufficiency in the right lower extremity. The patient's previous vascular interventions, including left SFA stent and subsequent BKA. Will plan for CO2 angiography to mitigate renal toxicity given patient's most recent GFR places her at CKD 3B. Given the chronicity and progressive nature of the disease, an invasive intervention could be necessary contingent upon angiographic studies to inform a therapeutic approach, possibly involving further endovascular treatment or bypass grafting if suitable targets are viable. Non-Healing Wound On Toenail: Peripheral Artery Disease: Chronic kidney disease, stage 3 unspecified (N18.30): - RLE angiogram with CO2 and possible intervention - Discussed alternatives include bypass surgery if significant targets exist. Patient was informed about the potential risks, including vessel injury and need for further intervention versus amputation. Consent obtained after discussing risks and benefits with the patient. -Patient instructed to hold Eliquis for 3 days prior to intervention Type 2 diabetes mellitus with diabetic peripheral angiopathy with gangrene (E11.52): Glycemic control remains critical in facilitating wound healing and managing peripheral vascular progression. We discussed the options for management and all questions answered, Ms. Thomas reflected understanding and agreement to the plan as outlined above. Thank you for the opportunity to contribute to Ms. Thomas's care. Please do not hesitate to call with any questions or concerns. Odin Dobbins MD Vascular Surgery Staff This note may have been partially generated using the Miew voice recognition system as well as artificial intelligence technology. While every effort was made to correct voice recognition errors, kindly be aware that some errors may occasionally occur. Medical Decision Making: Problems: High: Chronic illness with severe change Data: Unique source(s) for external note(s) reviewed: 1 Unique test result(s) reviewed: 2 Risk: High: Decision on elective major surgery w/ risk factors Medical Decision Making Level: 5 - High documented in this encounter [facility] 09-25-2024 Telephone encounter Note Vascular can see Saturday 09/29 at 130pm and mri 10/09/24 at 930am Patient notified Karuna Johnson [place] [facility] 09-25-2024 Miscellaneous Notes Vascular can see Saturday 09/29 at 130pm and mri 10/09/24 at 930am Patient notified Karuna Johnson [place] [facility] Phoned pt to review results of xray as well as PVRs. Radiologist read xray as concerning for bone infection of the distal phalanx. Pt with superficial wound without dactylitis. No systemic signs of infection. PVRs concerning for significant PAD. Needs vascular evaluation. Discussed options for the above. DIscussed that inpt work up would be the most efficient for these issues. Pt wants to avoid being admitted at this point. Understands that this could delay care. MRI ordered for right foot to eval for OM. Consult placed with vascular for further eval Leti Roger DPM documented in this encounter [facility] 09-25-2024 Telephone encounter Note Phoned pt to review results of xray as well as PVRs. Radiologist read xray as concerning for bone infection of the distal phalanx. Pt with superficial wound without dactylitis. No systemic signs of infection. PVRs concerning for significant PAD. Needs vascular evaluation. Discussed options for the above. DIscussed that inpt work up would be the most efficient for these issues. Pt wants to avoid being admitted at this point. Understands that this could delay care. MRI ordered for right foot to eval for OM. Consult placed with vascular for further eval Leti Roger DPM [facility] 09-22-2024 History of Present illness Narrative Radiology Service Progress Note PATIENT NAME: Miriam Thomas DATE OF SERVICE: September 22, 2024 TIME: 2:47 PM PATIENT IDENTITY VERIFICATION COMPLETED USING TWO (2) IDENTIFIERS: Name and Date of confirmed by patient verbally. FALL SCREENING: Has the patient had 2 falls in the last year or 1 fall with injury or currently using an Ambulatory Assistive Device (Walker, Cane, Wheelchair, Crutches, etc.)? Yes, Patient High Risk for Falls What interventions were put in place to prevent falls during this visit? [place] Risk Wristband Applied, Instructed Patient to Call for Help if Needed, Offered Assistance with Transfers/Clothing, Instructed Patient to Remain Seated (Not on Exam Table) Until Exam, and Increased Observations by Caregivers PATIENT GENDER DATA: Female. status: : No status: NO. PATIENT RELEVANT IMPLANT DATA REVIEWED: Not Applicable PATIENT PRESENTS WITH AN IMPLANTABLE OR ATTACHED URGENT CARE: No RADIOLOGY DEPARTMENT: Ultrasound PERIPHERAL IV DATA: Not applicable SIGNED BY: Jeff Hunter RDMS September 22, 2024 2:47 PM documented in this encounter [facility] 09-22-2024 Note HNO ID: [id number] Author: JEFF HUNTER RDMS Service: ? Author Type: Technologist Type: Progress Notes Filed: 09/22/2024 14:48 Note Text: Radiology Service Progress Note PATIENT NAME: Miriam Thomas DATE OF SERVICE: September 22, 2024 TIME: 2:47 PM PATIENT IDENTITY VERIFICATION COMPLETED USING TWO (2) IDENTIFIERS: Name and Date of confirmed by patient verbally. FALL SCREENING: Has the patient had 2 falls in the last year or 1 fall with injury or currently using an Ambulatory Assistive Device (Walker, Cane, Wheelchair, Crutches, etc.)? Yes, Patient High Risk for Falls What interventions were put in place to prevent falls during this visit? [place] Risk Wristband Applied, Instructed Patient to Call for Help if Needed, Offered Assistance with Transfers/Clothing, Instructed Patient to Remain Seated (Not on Exam Table) Until Exam, and Increased Observations by Caregivers PATIENT GENDER DATA: Female. status: : No status: NO. PATIENT RELEVANT IMPLANT DATA REVIEWED: Not Applicable PATIENT PRESENTS WITH AN IMPLANTABLE OR ATTACHED URGENT CARE: No RADIOLOGY DEPARTMENT: Ultrasound PERIPHERAL IV DATA: Not applicable SIGNED BY: Jeff Hunter RDMS September 22, 2024 2:47 PM [facility] 09-17-2024 History of Present illness Narrative Radiology Service Progress Note PATIENT NAME: Miriam Thomas DATE OF SERVICE: September 17, 2024 TIME: 10:26 AM PATIENT IDENTITY VERIFICATION COMPLETED USING TWO (2) IDENTIFIERS: Name and Date of confirmed by patient verbally and Name and Date of confirmed by identification band. FALL SCREENING: Has the patient had 2 falls in the last year or 1 fall with injury or currently using an Ambulatory Assistive Device (Walker, Cane, Wheelchair, Crutches, etc.)? No PATIENT GENDER DATA: Female. status: : No status: NO. PATIENT RELEVANT IMPLANT DATA REVIEWED: Yes PATIENT PRESENTS WITH AN IMPLANTABLE OR ATTACHED URGENT CARE: No RADIOLOGY DEPARTMENT: General X-ray: Exam(s) Completed: Lower Extremity X-Ray(s): Foot, Right PERIPHERAL IV DATA: Not applicable SIGNED BY: RT Lovely(Zach) September 17, 2024 10:26 AM documented in this encounter [facility] 09-17-2024 Note HNO ID: [id number] Author: BRITTNEY SOTO RT(R) Service: Radiology Author Type: Technologist Type: Progress Notes Filed: 09/17/2024 10:27 Note Text: Radiology Service Progress Note PATIENT NAME: Miriam Thomas DATE OF SERVICE: September 17, 2024 TIME: 10:26 AM PATIENT IDENTITY VERIFICATION COMPLETED USING TWO (2) IDENTIFIERS: Name and Date of confirmed by patient verbally and Name and Date of confirmed by identification band. FALL SCREENING: Has the patient had 2 falls in the last year or 1 fall with injury or currently using an Ambulatory Assistive Device (Walker, Cane, Wheelchair, Crutches, etc.)? No PATIENT GENDER DATA: Female. status: : No status: NO. PATIENT RELEVANT IMPLANT DATA REVIEWED: Yes PATIENT PRESENTS WITH AN IMPLANTABLE OR ATTACHED URGENT CARE: No RADIOLOGY DEPARTMENT: General X-ray: Exam(s) Completed: Lower Extremity X-Ray(s): Foot, Right PERIPHERAL IV DATA: Not applicable SIGNED BY: RT Lovely(R) September 17, 2024 10:26 AM [facility] 09-17-2024 Note HNO ID: [id number] Author: LETI ROGER DPM Service: ? Author Type: Physician Type: Progress Notes Filed: 09/21/2024 16:36 Note Text: Chief Complaint: Right 2nd digit wound/discoloration HPI: This 69 year old female with PMH indicated below presents complaining of changes to her right 2nd digit. . patient is accompanied to visit by her . She relates that a couple months ago she started developing a wound to the distal tip of her right second digit after trimming her toenail and noticing that the toenail was digging into her skin. She was treating it with an antibiotic ointment, and it seemed to be healing appropriately. However, over the past several days, she noticed increased redness,/dark purple discoloration to her second digit. She relates no pain with the digit and minimal drainage. She denies fevers, chills, nausea, vomiting or other acute signs of infection. She does admit to having a history of PAD, which led to a left below-knee amputation in the past on the left. No other pedal complaints. Last HgbA1c% is 5.7% PCP: Earl Shepherd MD: PAST MEDICAL HISTORY Diagnosis Date Anxiety Arthritis Depression MARITZA exposure in utero Diabetes mellitus ([facility]) 1986 Diabetic neuropathy ([facility]) Gangrene ([facility]) Heart attack ([facility]) [address] [address] Adalberto Power [place] Herniated disc Hypertension Muscular deconditioning PVD (peripheral vascular disease) ([facility]) 10/2019 S/P BKA (below knee amputation) unilateral, left ([facility]) Sleep apnea cpap Snoring Stroke ([facility]) 11/2004 and 05/2005 x 2, right sided weakness : Current Outpatient Medications Medication Sig dulaglutide (TRULICITY) 4.5 mg/0.5 mL pen injector Inject 4.5 mg subcutaneously one time a week. Gets through [facility]. insulin glargine 100 unit/mL (3 mL) Inject 26 Units subcutaneously every morning. (Basaglar) Patient assistance medication. insulin lispro (HUMALOG KWIKPEN) 100 unit/mL Inject 8 units with breakfast and 4 units with evening meal as directed. Patient assistance medication. escitalopram oxalate (LEXAPRO) 20 mg tablet Take 1 tablet by mouth once daily. atorvastatin (LIPITOR) 40 mg tablet Take 1 tablet by mouth daily at bedtime. For cholesterol. buPROPion XL (WELLBUTRIN XL) 150 mg 24 hr tablet Take 1 tablet by mouth once daily. tamsulosin (FLOMAX) 0.4 mg Take 2 capsules by mouth once daily. Blood-Glucose Sensor (Planspot G7 SENSOR) jackson Apply new sensor every ten (10) days. ciclopirox (LOPROX) 0.77 % cream Apply to affected area two times a day. For 2 to 4 weeks till rash resolves. May treat recurrences for rash under abdominal pannus acyclovir (ZOVIRAX) 400 mg tablet Take 1 tablet by mouth two times a day. blood sugar diagnostic (BLOOD GLUCOSE TEST) test strip Test blood sugar(s) 3 to 4 times daily. Dx: Other DM Code E11.51 Insulin: Yes One touch or Accucheck strips or strips covered by her insurance. Lancets Test blood sugar(s) 3 to 4 times daily. Dx: Other DM Code E11.51 Insulin: Yes clobetasol (TEMOVATE) 0.05 % ointment Apply nightly to affected area for 8-12 weeks, then 1-3x weekly for maintenance apixaban (ELIQUIS) 5 mg tab(s) Take 1 tablet by mouth two times a day. hydrALAZINE (APRESOLINE) 50 mg tablet Take 1 tablet by mouth two times a day. Hold for SBP less than 120mm HG pantoprazole DR (PROTONIX) 40 mg tablet Take 1 tablet by mouth once daily. carvedilol (COREG) 6.25 mg tablet Take 1 tablet by mouth two times a day with meals. nystatin (MYCOSTATIN) powder Apply 1 application to affected area twice daily as needed. For prevention B complex w-C no.20/folic acid (B COMPLEX WITH C 20-FOLIC ACID ORAL) Take 1 tablet by mouth once daily. berberine/herbal complex no.18 (BERBERINE-HERBAL COMB NO.18 ORAL) Take 1,200 mg by mouth once daily. Magnesium Oxide 500 mg tab Take 1 tablet by mouth once daily. For constipation Blood-Glucose Meter,Continuous (DEXCOM G7 ENVELOPE SEALER) misc Use to check blood sugar at least four (4) times daily. nitroglycerin sublingual (NITROQUICK) 0.4 mg SL tablet Dissolve 1 tablet under the tongue as needed. As directed insulin needles, DISPOSABLE, (PEN NEEDLE) 31 gauge x 5/16 Use one needle per dose. 5 per day. bacitracin zinc 500 unit/gram ointment Apply to affected area twice daily. As directed for affected area till healed cetirizine (ZYRTEC) 10 mg tablet Take 1 tablet by mouth once daily as needed. aspirin, enteric coated (ASPIRIN, ENTERIC COATED) 81 mg EC tablet Take 1 tablet by mouth once daily. cyanocobalamin, vitamin B-12, 5,000 mcg subl Dissolve under the tongue once daily. ascorbic acid, vitamin C, (VITAMIN C) 500 mg tablet Take 1,000 mg by mouth once daily. biotin 5,000 mcg ODT Take 1 tablet by mouth once daily. polyethylene glycol 3350 (MIRALAX) 17 gram/dose powder Take 17 g by mouth as directed. gabapentin (NEURONTIN) 400 mg capsule Take 1 capsule by mouth two times a day AND 2 capsules daily at bedtime. Do all (more content not included)... [facility] 09-17-2024 History of Present illness Narrative Chief Complaint: Right 2nd digit wound/discoloration HPI: This 69 year old female with PMH indicated below presents complaining of changes to her right 2nd digit. . patient is accompanied to visit by her . She relates that a couple months ago she started developing a wound to the distal tip of her right second digit after trimming her toenail and noticing that the toenail was digging into her skin. She was treating it with an antibiotic ointment, and it seemed to be healing appropriately. However, over the past several days, she noticed increased redness,/dark purple discoloration to her second digit. She relates no pain with the digit and minimal drainage. She denies fevers, chills, nausea, vomiting or other acute signs of infection. She does admit to having a history of PAD, which led to a left below-knee amputation in the past on the left. No other pedal complaints. Last HgbA1c% is 5.7% PCP: Earl Shepherd MD: PAST MEDICAL HISTORY Diagnosis Date Anxiety Arthritis Depression MARITZA exposure in utero Diabetes mellitus ([facility]) 1986 Diabetic neuropathy ([facility]) Gangrene ([facility]) Heart attack ([facility]) [address] [address] Adalberto Power [place] Herniated disc Hypertension Muscular deconditioning PVD (peripheral vascular disease) ([facility]) 10/2019 S/P BKA (below knee amputation) unilateral, left ([facility]) Sleep apnea cpap Snoring Stroke ([facility]) 11/2004 and 05/2005 x 2, right sided weakness : Current Outpatient Medications Medication Sig dulaglutide (TRULICITY) 4.5 mg/0.5 mL pen injector Inject 4.5 mg subcutaneously one time a week. Gets through [facility]. insulin glargine 100 unit/mL (3 mL) Inject 26 Units subcutaneously every morning. (Basaglar) Patient assistance medication. insulin lispro (HUMALOG KWIKPEN) 100 unit/mL Inject 8 units with breakfast and 4 units with evening meal as directed. Patient assistance medication. escitalopram oxalate (LEXAPRO) 20 mg tablet Take 1 tablet by mouth once daily. atorvastatin (LIPITOR) 40 mg tablet Take 1 tablet by mouth daily at bedtime. For cholesterol. buPROPion XL (WELLBUTRIN XL) 150 mg 24 hr tablet Take 1 tablet by mouth once daily. tamsulosin (FLOMAX) 0.4 mg Take 2 capsules by mouth once daily. Blood-Glucose Sensor (Planspot G7 SENSOR) jackson Apply new sensor every ten (10) days. ciclopirox (LOPROX) 0.77 % cream Apply to affected area two times a day. For 2 to 4 weeks till rash resolves. May treat recurrences for rash under abdominal pannus acyclovir (ZOVIRAX) 400 mg tablet Take 1 tablet by mouth two times a day. blood sugar diagnostic (BLOOD GLUCOSE TEST) test strip Test blood sugar(s) 3 to 4 times daily. Dx: Other DM Code E11.51 Insulin: Yes One touch or Accucheck strips or strips covered by her insurance. Lancets Test blood sugar(s) 3 to 4 times daily. Dx: Other DM Code E11.51 Insulin: Yes clobetasol (TEMOVATE) 0.05 % ointment Apply nightly to affected area for 8-12 weeks, then 1-3x weekly for maintenance apixaban (ELIQUIS) 5 mg tab(s) Take 1 tablet by mouth two times a day. hydrALAZINE (APRESOLINE) 50 mg tablet Take 1 tablet by mouth two times a day. Hold for SBP less than 120mm HG pantoprazole DR (PROTONIX) 40 mg tablet Take 1 tablet by mouth once daily. carvedilol (COREG) 6.25 mg tablet Take 1 tablet by mouth two times a day with meals. nystatin (MYCOSTATIN) powder Apply 1 application to affected area twice daily as needed. For prevention B complex w-C no.20/folic acid (B COMPLEX WITH C 20-FOLIC ACID ORAL) Take 1 tablet by mouth once daily. berberine/herbal complex no.18 (BERBERINE-HERBAL COMB NO.18 ORAL) Take 1,200 mg by mouth once daily. Magnesium Oxide 500 mg tab Take 1 tablet by mouth once daily. For constipation Blood-Glucose Meter,Continuous (DEXCOM G7 ENVELOPE SEALER) [facility] Use to check blood sugar at least four (4) times daily. nitroglycerin sublingual (NITROQUICK) 0.4 mg SL tablet Dissolve 1 tablet under the tongue as needed. As directed insulin needles, DISPOSABLE, (PEN NEEDLE) 31 gauge x 5/16 Use one needle per dose. 5 per day. bacitracin zinc 500 unit/gram ointment Apply to affected area twice daily. As directed for affected area till healed cetirizine (ZYRTEC) 10 mg tablet Take 1 tablet by mouth once daily as needed. aspirin, enteric coated (ASPIRIN, ENTERIC COATED) 81 mg EC tablet Take 1 tablet by mouth once daily. cyanocobalamin, vitamin B-12, 5,000 mcg subl Dissolve under the tongue once daily. ascorbic acid, vitamin C, (VITAMIN C) 500 mg tablet Take 1,000 mg by mouth once daily. biotin 5,000 mcg ODT Take 1 tablet by mouth once daily. polyethylene glycol 3350 (MIRALAX) 17 gram/dose powder Take 17 g by mouth as directed. gabapentin (NEURONTIN) 400 mg capsule Take 1 capsule by mouth two times a day AND 2 capsules daily at bedtime. Do all this for 90 days. (Patient taking differently: Take 1 capsule by mouth in the afternoon AND 2 capsules daily at bedtime. Do all this for 90 days.) No current facility-administered medications for this visit. : ALLERGIES Allergen Reactions Meloxicam GI Upset Sulfa (Sulfonamide * Swelling Facial swelling, shortness of breath. : PAST SURGICAL HISTORY Procedure Laterality Date AMPUTATION OF LOWER LEG Left 07/20/2020 L BKA ANESTH,BRACHIAL/FEMORAL ARTERIOGRAM Left 11/04/2019 Left femoral arteriogram with stenting of left superficial femoral artery. Attempted left popliteal artery thromboembolectomy. Left anterior tibial thromboembolectomy @ [facility] by Dr. Zavaleta AORTOGRAM AND LEG RUNOFF 11/04/2019 1. Abdominal aortogram with bilateral selective lower extremity carbon dioxide runoff @ [facility] by Dr Zavaleta DELIVERY ONLY 1980, 1983, 1985 , low transverse, x 3 COLONOSCOPY FLX DX W/COLLJ SPEC WHEN PFRMD 02/17/16 Colonoscopy (MAC) ESOPHAGOGASTRODUODENOSCOPY TRANSORAL DIAGNOSTIC 11/26/2017 EGD ESOPHAGOGASTRODUODENOSCOPY TRANSORAL DIAGNOSTIC 01/14/2018 EGD PAST SURGICAL HISTORY OF last one in 2006 D&C, multiple x4 PAST SURGICAL HISTORY OF Left 2000 ganglion cyst removed left wrist PAST SURGICAL HISTORY OF Bilateral 07/2013 cataracts TRANSMETATARSAL AMPUTATION/O&P Left 12/12/2019 Transmetatarsal amputation with tendoachilles lengthening left lower extremity FAMILY HISTORY Problem Relation Age of Onset Hypertension Mother Diabetes Mother Lipids Mother Hypertension Father Diabetes Father Lipids Father Heart Father Triple bypass other (AAA) Father Cancer Paternal Grandmother uterine cancer : Social History Tobacco Use Smoking status: Never Smokeless tobacco: Never Vaping Use Vaping status: Never Used Substance Use Topics Alcohol use: Yes Comment: Rarely Drug use: No REVIEW OF SYSTEMS See tech note MSK: + as noted in HPI. Physical Exam: Patient is alert and oriented x 3 in NADPatient is a 69 year old female who appears well developed, well nourished and with good attention to hygiene and body habitus. Resp 18 Ht 157.5 cm (5' 2) Wt 90.7 kg (200 lb) BMI 36.58 kg/m Right lower extremity focused examination, left below-knee amputation. Vascular: DP and PT pulses are nonpalpable. CFT less than 5 seconds to all digits. Skin temperature is warm to warm from proximal to distal. Hair growth is absent. Minimal edema to right second digit. No varicosities noted. Mild increase in warmth noted to the right second digit Neuro: Light touch intact. Protective sensation absent pedal sites via [place] 5.07 monofilament. Derm: Skin texture and turgor within normal limits. Toenails 1 through 5 of the right foot are mildly thickened. The right second digit toenail is thickened and incurvated distally, and loosely attached to the nailbed distally. Webspaces 1-4 clean, dry, intact. There is a small wound to the distal tip of the right second digit that is superficial in nature and does not probe to bone. Minimal serous drainage appreciated. The distal tip of the right second digit is erythematous and a deep violaceous color that extends to the level of the proximal interphalangeal joint. No other rashes, subcutaneous nodules or open lesions noted. No ascending cellulitis or lymphangitis Musculoskeletal/Orthopaedic: General foot morphology: Decreased medial longitudinal arch +5/5 muscle strength Dorsiflexion, Plantarflexion, Inversion, Eversion ROM of the 1st MTPJ is decreased without pain or crepitus. ROM of the MTJ/STJ is decreased without pain or crepitus. Ankle joint ROM is decreased no pain on palpation to the right second digit BKA left LE Radiographs: 3 views right foot were ordered ASSESSMENT: This 69 year old female patient presents today with PAD vs cellulitic changes to the right 2nd digit. Plan: - A comprehensive history and physical examination were preformed. The patient was educated on clinical and radiographic findings, diagnosis and treatment plans. Patient state that she understands all that has been explained and all questions were answered to her apparent satisfaction. - Etiology and treatment options were discussed with the patient. -Recommend patient obtain xrays to evaluation for bone infection following the visit today. Radiographs ordered. Suspicion of bone infection is low due to clinical appearance of the toe - does not appear dactylic and wound appears superficial -Concern for PAD. Order placed for noninvasive vascular studies (PVR's, TBIs). -Due to concern for infection, prescription placed for Augmentin. Take as prescribed. -Continue painting the right second digit with Betadine daily. Return to clinic in 2 weeks. Go to ED with worsening signs of infection, systemic signs of infection. Aries Mahmood DPM, PGY2 Patient was seen, evaluated, discussed and treated with the above resident, all garcia components of the exam and treatment were reviewed. I agree with the findings and treatment plan as outlined the above note. Leti Roger DPM documented in this encounter [facility] 09-16-2024 Telephone encounter Note Spoke with patient and appointment was made Karuna Mims [facility] 09-16-2024 Telephone encounter Note ----- Message from Brigitte Weems sent at 09/16/2024 9:18 AM EST ----- Regarding: Orthopedics / Foot: RFV Not Found / RFV Not Found In Schd Tool Contact: Orthopedics / Foot: RFV Not Found / RFV Not Found In Schd Tool Patient has been identified by name and Date of (Y/N): y Patient: Miriam Thomas Date of : 1955 Previous Provider Seen: Dr Roger Body Part(s) Identified: R 2nd toe Diagnosis/Reason For Visit: patient wants to see Dr Roger for R 2nd toe; thinks it may be dying as it is blackening Reason for the call/escalation: per sched tool If reason for call/escalation is discharge from ED/ER or Hospital, which facility was the patient seen at: n/a Was an appointment scheduled (Y/N): n Person calling if other than patient: n/a Return call to if other than patient: n/a Best contact number: [phone] Thank you, Brigitte Fairchild September 16, 2024 9:18 AM [facility] 09-16-2024 Miscellaneous Notes Spoke with patient and appointment was made Karuna Mims ----- Message from Brigitte Weems sent at 09/16/2024 9:18 AM EST ----- Regarding: Orthopedics / Foot: RFV Not Found / RFV Not Found In Schd Tool Contact: Orthopedics / Foot: RFV Not Found / RFV Not Found In Schd Tool Patient has been identified by name and Date of (Y/N): y Patient: Miriam Thomas Date of : 1955 Previous Provider Seen: Dr Roger Body Part(s) Identified: R 2nd toe Diagnosis/Reason For Visit: patient wants to see Dr Roger for R 2nd toe; thinks it may be dying as it is blackening Reason for the call/escalation: per sched tool If reason for call/escalation is discharge from ED/ER or Hospital, which facility was the patient seen at: n/a Was an appointment scheduled (Y/N): n Person calling if other than patient: n/a Return call to if other than patient: n/a Best contact number: [phone] Thank you, Brigitte Fairchild September 16, 2024 9:18 AM documented in this encounter [facility] 09-10-2024 Note HNO ID: [id number] Author: ?, ?, ? Service: ? Author Type: ? Type: Progress Notes Filed: 09/10/2024 11:07 Note Text: Patient has been approved with [facility] for medication(s) Basaglar,Trulicity, and Humalog through 09/30/25. Patient [facility] ID is : PAE- [id number] Below is fax sent to PAP Team alerting of patient approval in program through 09/30/25. PAP Team will reach out to [facility] to make aware of approval. [facility] 09-10-2024 History of Present illness Narrative Images from the original note were not included. Patient has been approved with [facility] for medication(s) Basaglar,Trulicity, and Humalog through 09/30/25. Patient [facility] ID is : PAE- [id number] Below is fax sent to PAP Team alerting of patient approval in program through 09/30/25. PAP Team will reach out to [facility] to make aware of approval. Signed form faxed back to Patient Assistance Program as requested. Form printed and on PCP desk for signature. Images from the original note were not included. 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 STATUS OF APPLICATION: Can be viewed under the encounter Additional Documentation > SmartForms: [facility] RX AMB CLINIC PATIENT ASSISTANCE Completed forms sent to providers for signatures and/or to scorer helper will be available under Scanned Documents. The finalized form can be found under PAP_Medication Name_Complete. PAP Solar Sales Consultant Team will submit and track progress on the completed PAP application. Please do NOT fax to scorer helper unless directed by the PAP Solar Sales Consultant Team. Please see SmartForm described above for specifics. Please DO NOT close this encounter. Sent to patient: Sent mychart to be signed 08/20/24 - Sent to prescriber: Scanned and routed to provider 08/20/24 - (will need [facility] to send rxs to [facility]) Sent to scorer helper: faxed to [facility] 09/01/24 - not received sent 09/09/24 Scripts for Basaglar, Humalog, and Trulicity sent to [facility] at electronics warfare technician's request. The following approved medication requests have been transmitted electronically. Requested Prescriptions Signed Prescriptions Disp Refills dulaglutide (TRULICITY) 4.5 mg/0.5 mL pen injector 8 mL 3 Sig: Inject 4.5 mg subcutaneously one time a week. Gets through [facility] [employer]. insulin glargine 100 unit/mL (3 mL) 45 mL 2 Sig: Inject 26 Units subcutaneously every morning. (Basaglar) Patient assistance medication. insulin lispro (HUMALOG KWIKPEN) 100 unit/mL 15 mL 3 Sig: Inject 8 units with breakfast and 4 units with evening meal as directed. Patient assistance medication. Adelaide Ann RPh Called patient and informed her that [facility] Cares meds (Basaglar, Humalog, Trulicity) were approved through 2024. She appreciated the call. Scripts sent to [facility]. The following approved medication requests have been transmitted electronically. Requested Prescriptions Signed Prescriptions Disp Refills dulaglutide (TRULICITY) 4.5 mg/0.5 mL pen injector 8 mL 3 Sig: Inject 4.5 mg subcutaneously one time a week. Gets through [employer]. insulin glargine 100 unit/mL (3 mL) 30 mL 3 Sig: Inject 26 Units subcutaneously every morning. (Basaglar) Patient assistance medication. insulin lispro (HUMALOG KWIKPEN) 100 unit/mL 15 mL 3 Sig: Inject 8 units with breakfast and 4 units with evening meal as directed. Patient assistance medication. Adelaide Ann RPh documented in this encounter [facility] 09-09-2024 Note HNO ID: [id number] Author: FRANCISCA NELSON RN Service: ? Author Type: Registered Nurse Type: Progress Notes Filed: 09/09/2024 15:44 Note Text: CDM Telephonic Outreach Provider Action/FYI CDM Outreach notes: CKD3 , HTN, DM 2nd attempt this cycle 06/26/24 last [facility] CDM contact. Contacted for: Routine Telephonic Outreach Contact made with patient: No, left message. Francisca Nelson RN September 09, 2024 3:43 PM [facility] 09-09-2024 History of Present illness Narrative CDM Telephonic Outreach Provider Action/FYI CDM Outreach notes: CKD3 , HTN, DM 2nd attempt this cycle 06/26/24 last [facility] CDM contact. Contacted for: Routine Telephonic Outreach Contact made with patient: No, left message. Francisca Nelson RN September 09, 2024 3:43 PM CDM Telephonic Outreach Provider Action/FYI Contacted for: Routine Telephonic Outreach Contact made with patient: No, left message. Francisca Nelson RN September 08, 2024 1:02 PM documented in this encounter [facility] 09-08-2024 Note HNO ID: [id number] Author: FRANCISCA NELSON RN Service: ? Author Type: Registered Nurse Type: Progress Notes Filed: 09/09/2024 15:44 Note Text: CDM Telephonic Outreach Provider Action/FYI Contacted for: Routine Telephonic Outreach Contact made with patient: No, left message. Francisca Nelson RN September 08, 2024 1:02 PM [facility] 09-08-2024 Note Patient Outreach (AM [facility]) MIRIAM THOMAS ([id number]) 1955 F Date Time Provider Department 09/08/24 FRANCISCA NELSON [facility] During your visit today, we recorded the following information about you: Francisca Nelson RN 09/09/2024 3:44 PM Signed CDM Telephonic Outreach Provider Action/FYI Contacted for: Routine Telephonic Outreach Contact made with patient: No, left message. Francisca Nelson RN September 08, 2024 1:02 PM Francisca Nelson RN 09/09/2024 3:44 PM Signed CDM Telephonic Outreach Provider Action/FYI CDM Outreach notes: CKD3 , HTN, DM 2nd attempt this cycle 06/26/24 last [facility] CDM contact. Contacted for: Routine Telephonic Outreach Contact made with patient: No, left message. Francisca Nelson RN September 09, 2024 3:43 PM Allergies As of Date: 09/08/2024 Noted Allergy Reaction MELOXICAM 06/22/2016 8 - GI Upset SULFA (SULFONAMIDE ANTIBIOTICS) 10/15/2014 7 - Swelling Comments: Facial swelling, shortness of breath. Date Reviewed: 06/13/2024 Reviewed by: Rhina Carrasco APRN.COMMUNICABLE DISEASE SPECIALIST - Fully Assessed Reason for Visit: CDM [Other] Cmt: Chronic Disease Management routine call Prescriptions as of 09/29/2024 - dulaglutide (TRULICITY) 4.5 mg/0.5 mL pen injector Inject 4.5 mg subcutaneously one time a week. Gets through [facility]. - insulin glargine 100 unit/mL (3 mL) Inject 26 Units subcutaneously every morning. (Basaglar) Patient assistance medication. - insulin lispro (HUMALOG KWIKPEN) 100 unit/mL Inject 8 units with breakfast and 4 units with evening meal as directed. Patient assistance medication. - escitalopram oxalate (LEXAPRO) 20 mg tablet Take 1 tablet by mouth once daily. - atorvastatin (LIPITOR) 40 mg tablet Take 1 tablet by mouth daily at bedtime. For cholesterol. - buPROPion XL (WELLBUTRIN XL) 150 mg 24 hr tablet Take 1 tablet by mouth once daily. - tamsulosin (FLOMAX) 0.4 mg Take 2 capsules by mouth once daily. - gabapentin (NEURONTIN) 400 mg capsule Take 1 capsule by mouth two times a day AND 2 capsules daily at bedtime. Do all this for 90 days. - Blood-Glucose Sensor (Planspot G7 SENSOR) jackson Apply new sensor every ten (10) days. - ciclopirox (LOPROX) 0.77 % cream Apply to affected area two times a day. For 2 to 4 weeks till rash resolves. May treat recurrences for rash under abdominal pannus - acyclovir (ZOVIRAX) 400 mg tablet Take 1 tablet by mouth two times a day. - blood sugar diagnostic (BLOOD GLUCOSE TEST) test strip Test blood sugar(s) 3 to 4 times daily. Dx: Other DM Code E11.51 Insulin: Yes One touch or Accucheck strips or strips covered by her insurance. - Lancets Test blood sugar(s) 3 to 4 times daily. Dx: Other DM Code E11.51 Insulin: Yes - clobetasol (TEMOVATE) 0.05 % ointment Apply nightly to affected area for 8-12 weeks, then 1-3x weekly for maintenance - apixaban (ELIQUIS) 5 mg tab(s) Take 1 tablet by mouth two times a day. - hydrALAZINE (APRESOLINE) 50 mg tablet Take 1 tablet by mouth two times a day. Hold for SBP less than 120mm HG - pantoprazole DR (PROTONIX) 40 mg tablet Take 1 tablet by mouth once daily. - carvedilol (COREG) 6.25 mg tablet Take 1 tablet by mouth two times a day with meals. - nystatin (MYCOSTATIN) powder Apply 1 application to affected area twice daily as needed. For prevention - B complex w-C no.20/folic acid (B COMPLEX WITH C 20-FOLIC ACID ORAL) Take 1 tablet by mouth once daily. - berberine/herbal complex no.18 (BERBERINE-HERBAL COMB NO.18 ORAL) Take 1,200 mg by mouth once daily. - Magnesium Oxide 500 mg tab Take 1 tablet by mouth once daily. For constipation - Blood-Glucose Meter,Continuous (DEXCOM G7 ENVELOPE SEALER) misc Use to check blood sugar at least four (4) times daily. - nitroglycerin sublingual (NITROQUICK) 0.4 mg SL tablet Dissolve 1 tablet under the tongue as needed. As directed - insulin needles, DISPOSABLE, (PEN NEEDLE) 31 gauge x 5/16 Use one needle per dose. 5 per day. - bacitracin zinc 500 unit/gram ointment Apply to affected area twice daily. As directed for affected area till healed - cetirizine (ZYRTEC) 10 mg tablet Take 1 tablet by mouth once daily as needed. - aspirin, enteric coated (ASPIRIN, ENTERIC COATED) 81 mg EC tablet Take 1 tablet by mouth once daily. - cyanocobalamin, vitamin B-12, 5,000 mcg subl Dissolve under the tongue once daily. - ascorbic acid, vitamin C, (VITAMIN C) 500 mg tablet Take 1,000 mg by mouth once daily. - biotin 5,000 mcg ODT Take 1 tablet by mouth once daily. - polyethylene glycol 3350 (MIRALAX) 17 gram/dose powder Take 17 g by mouth as directed. 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 [facility] 09-05-2024 History of Present illness Narrative Radiology Service Progress Note PATIENT NAME: Miriam Thomas DATE OF SERVICE: September 05, 2024 TIME: 2:56 PM PATIENT IDENTITY VERIFICATION COMPLETED USING TWO (2) IDENTIFIERS: Name and Date of confirmed by patient verbally. FALL SCREENING: Has the patient had 2 falls in the last year or 1 fall with injury or currently using an Ambulatory Assistive Device (Walker, Cane, Wheelchair, Crutches, etc.)? No PATIENT GENDER DATA: Female. status: : No status: NO. PATIENT RELEVANT IMPLANT DATA REVIEWED: Not Applicable PATIENT PRESENTS WITH AN IMPLANTABLE OR ATTACHED URGENT CARE: No RADIOLOGY DEPARTMENT: Mammography PERIPHERAL IV DATA: Not applicable SIGNED BY: RT Ovidio(Zach) September 05, 2024 2:56 PM documented in this encounter [facility] 09-05-2024 Note HNO ID: [id number] Author: CARLIE SMITH RT(Zach) Service: ? Author Type: Technologist Type: Progress Notes Filed: 09/05/2024 14:56 Note Text: Radiology Service Progress Note PATIENT NAME: Miriam Thomas DATE OF SERVICE: September 05, 2024 TIME: 2:56 PM PATIENT IDENTITY VERIFICATION COMPLETED USING TWO (2) IDENTIFIERS: Name and Date of confirmed by patient verbally. FALL SCREENING: Has the patient had 2 falls in the last year or 1 fall with injury or currently using an Ambulatory Assistive Device (Walker, Cane, Wheelchair, Crutches, etc.)? No PATIENT GENDER DATA: Female. status: : No status: NO. PATIENT RELEVANT IMPLANT DATA REVIEWED: Not Applicable PATIENT PRESENTS WITH AN IMPLANTABLE OR ATTACHED URGENT CARE: No RADIOLOGY DEPARTMENT: Mammography PERIPHERAL IV DATA: Not applicable SIGNED BY: RT Ovidio(R) September 05, 2024 2:56 PM [facility] 08-25-2024 Note HNO ID: [id number] Author: ABIMBOLA DEWEY LPN Service: ? Author Type: LICENSED NURSE Type: Progress Notes Filed: 09/10/2024 11:07 Note Text: Signed form faxed back to Patient Assistance Program as requested. [facility] 08-22-2024 Note HNO ID: [id number] Author: ABIMBOLA DEWEY LPN Service: ? Author Type: LICENSED NURSE Type: Progress Notes Filed: 08/22/2024 09:33 Note Text: Form printed and on PCP desk for signature. [facility] 08-20-2024 Note HNO ID: [id number] Author: ?, ?, ? Service: ? Author Type: ? 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 STATUS OF APPLICATION: Can be viewed under the encounter Additional Documentation > SmartForms: [facility] PATIENT ASSISTANCE Completed forms sent to providers for signatures and/or to scorer helper will be available under Scanned Documents. The finalized form can be found under PAP_Medication Name_Complete. PAP Solar Sales Consultant Team will submit and track progress on the completed PAP application. Please do NOT fax to scorer helper unless directed by the PAP Solar Sales Consultant Team. Please see SmartForm described above for specifics. Please DO NOT close this encounter. Sent to patient: Sent mychart to be signed 08/20/24 - Sent to prescriber: Scanned and routed to provider 08/20/24 [facility] (will need [facility] to send rxs to [facility]) Sent to scorer helper: faxed to [facility] 09/01/24 not received sent 09/09/24 -[facility] 08-20-2024 Miscellaneous Notes Addended by: ADELAIDE ANN on: 09/10/2024 04:18 PM Modules accepted: Orders documented in this encounter [facility] 08-20-2024 Note Addended by: ADELAIDE ANN on: 09/10/2024 04:18 PM Modules accepted: Orders [facility] 08-20-2024 Note HNO ID: [id number] Author: ADELAIDE ANN RPh Service: ? Author Type: Pharmacist Type: Progress Notes Filed: 09/10/2024 11:07 Note Text: Scripts for Basaglar, Humalog, and Trulicity sent to [facility] at electronics warfare technician's request. The following approved medication requests have been transmitted electronically. Requested Prescriptions Signed Prescriptions Disp Refills dulaglutide (TRULICITY) 4.5 mg/0.5 mL pen injector 8 mL 3 Sig: Inject 4.5 mg subcutaneously one time a week. Gets through [facility] [employer]. insulin glargine 100 unit/mL (3 mL) 45 mL 2 Sig: Inject 26 Units subcutaneously every morning. (Basaglar) Patient assistance medication. insulin lispro (HUMALOG KWIKPEN) 100 unit/mL 15 mL 3 Sig: Inject 8 units with breakfast and 4 units with evening meal as directed. Patient assistance medication. Adelaide Ann RPh [facility] 08-20-2024 Note HNO ID: [id number] Author: ADELAIDE ANN RPh Service: ? Author Type: Pharmacist Type: Progress Notes Filed: 09/10/2024 16:18 Note Text: Called patient and informed her that [facility] Cares meds (Basaglar, Humalog, Trulicity) were approved through 2024. She appreciated the call. Scripts sent to [facility]. The following approved medication requests have been transmitted electronically. Requested Prescriptions Signed Prescriptions Disp Refills dulaglutide (TRULICITY) 4.5 mg/0.5 mL pen injector 8 mL 3 Sig: Inject 4.5 mg subcutaneously one time a week. Gets through [facility] [employer]. insulin glargine 100 unit/mL (3 mL) 30 mL 3 Sig: Inject 26 Units subcutaneously every morning. (Basaglar) Patient assistance medication. insulin lispro (HUMALOG KWIKPEN) 100 unit/mL 15 mL 3 Sig: Inject 8 units with breakfast and 4 units with evening meal as directed. Patient assistance medication. Adelaide Landinfabby [facility] 08-20-2024 Note Patient Outreach (AM [facility]) MIRIAM THOMAS ([id number]) 1955 F Date Time Provider Department 08/20/24 ADELAIDE ANN RADHA During your visit today, we recorded the following information about you: Seth, Adelaide [facility] 09/10/2024 11:07 AM Signed Scripts for Basaglar, Humalog, and Trulicity sent to [facility] at electronics warfare technician's request. The following approved medication requests have been transmitted electronically. Requested Prescriptions Signed Prescriptions Disp Refills dulaglutide (TRULICITY) 4.5 mg/0.5 mL pen injector 8 mL 3 Sig: Inject 4.5 mg subcutaneously one time a week. Gets through [facility] [employer]. insulin glargine 100 unit/mL (3 mL) 45 mL 2 Sig: Inject 26 Units subcutaneously every morning. (Basaglar) Patient assistance medication. insulin lispro (HUMALOG KWIKPEN) 100 unit/mL 15 mL 3 Sig: Inject 8 units with breakfast and 4 units with evening meal as directed. Patient assistance medication. Adelaide Ann [facility] Seth, Adelaide [facility] 09/10/2024 4:18 PM Signed Called patient and informed her that [facility] C[employer] meds (Basaglar, Humalog, Trulicity) were approved through 2024. She appreciated the call. Scripts sent to [facility]. The following approved medication requests have been transmitted electronically. Requested Prescriptions Signed Prescriptions Disp Refills dulaglutide (TRULICITY) 4.5 mg/0.5 mL pen injector 8 mL 3 Sig: Inject 4.5 mg subcutaneously one time a week. Gets through [facility] [employer]. insulin glargine 100 unit/mL (3 mL) 30 mL 3 Sig: Inject 26 Units subcutaneously every morning. (Basaglar) Patient assistance medication. insulin lispro (HUMALOG KWIKPEN) 100 unit/mL 15 mL 3 Sig: Inject 8 units with breakfast and 4 units with evening meal as directed. Patient assistance medication. 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 STATUS OF APPLICATION: Can be viewed under the encounter Additional Documentation > SmartForms: [facility] RX AMB CLINIC PATIENT ASSISTANCE Completed forms sent to providers for signatures and/or to scorer helper will be available under Scanned Documents. The finalized form can be found under PAP_Medication Name_Complete. PAP Solar Sales Consultant Team will submit and track progress on the completed PAP application. Please do NOT fax to scorer helper unless directed by the PAP Solar Sales Consultant Team. Please see SmartForm described above for specifics. Please DO NOT close this encounter. Sent to patient: Sent mychart to be signed 08/20/24 - Sent to prescriber: Scanned and routed to provider 08/20/24 - (will need [facility] to send rxs to [facility]) Sent to scorer helper: faxed to [facility] 09/01/24 - not received sent 09/09/24 - Abimbola Dewey LPN 08/22/2024 9:33 AM Signed Form printed and on PCP desk for signature. Abimbola Dewey LPN 09/10/2024 11:07 AM Signed Signed form faxed back to Patient Assistance Program as requested. Hayley Gudino 09/10/2024 11:07 AM Signed Patient has been approved with [facility] for medication(s) Basaglar,Trulicity, and Humalog through 09/30/25. Patient [facility] ID is : PAE- [id number] Below is fax sent to PAP Team alerting of patient approval in program through 09/30/25. PAP Team will reach out to [facility] to make aware of approval. Allergies As of Date: 08/20/2024 Noted Allergy Reaction MELOXICAM 06/22/2016 8 - GI Upset SULFA (SULFONAMIDE ANTIBIOTICS) 10/15/2014 7 - Swelling Comments: Facial swelling, shortness of breath. Date Reviewed: 06/13/2024 Reviewed by: Rhina Carrasco APRN.COMMUNICABLE DISEASE SPECIALIST - Fully Assessed Reason for Visit: Patient Assistance Program [Other] Cmt: Basaglar Kwikpen u100 Humalog Kwikpen U100 Trulicity 4.5mg/0.5mL ([facility] RENEWAL) Visit Diagnoses:Type 2 diabetes mellitus with stage 3b chronic kidney disease, with long-term current use of insulin (HCC) [E11.22, N18.32, Z79.4] Type 2 diabetes mellitus with diabetic neuropathy, with long-term current use of insulin (HCC) [E11.40, Z79.4] Order(s):Order #: [id number] Order #: [id number] Order #: [id number] Prescriptions as of 04/07/2025 - nitroglycerin sublingual (NITROQUICK) 0.4 mg SL tablet Dissolve 1 tablet under the tongue as needed. As directed - acyclovir (ZOVIRAX) 400 mg tablet Take 1 tablet by mouth two times a day. - atorvastatin (LIPITOR) 40 mg tablet Take 1 tablet by mouth daily at bedtime. For cholesterol. - buPROPion XL (WELLBUTRIN XL) 150 mg 24 hr tablet Take 1 tablet by mouth once daily. - carvedilol (COREG) 6.25 mg tablet Take 1 tablet by mouth two times a day with meals. - clopidogrel (PLAVIX) 75 mg tablet Take 1 tablet by mouth once daily. - escitalopram oxalate (LEXAPRO) 20 mg tablet Take 1 tab (more content not included)... [facility] 08-20-2024 Note Patient Outreach (IN [facility]) MIRIAM THOMAS ([id number]) 1955 F Date Time Provider Department 08/20/24 EARL SHEPHERD During your visit today, we recorded the following information about you: Allergies As of Date: 08/20/2024 Noted Allergy Reaction MELOXICAM 06/22/2016 8 - GI Upset SULFA (SULFONAMIDE ANTIBIOTICS) 10/15/2014 7 - Swelling Comments: Facial swelling, shortness of breath. Date Reviewed: 06/13/2024 Reviewed by: Rhina Carrasco APRN.COMMUNICABLE DISEASE SPECIALIST - Fully Assessed Visit Diagnosis:Encounter for screening mammogram for breast cancer [Z12.31] Order(s):[facility] SCREENING [facility] MISHA [[id number]] Order #: [id number] FUTURE Prescriptions as of 08/25/2024 - insulin lispro (HUMALOG KWIKPEN) 100 unit/mL Inject 8 units with breakfast and 4 units with evening meal as directed. Patient assistance medication. - escitalopram oxalate (LEXAPRO) 20 mg tablet Take 1 tablet by mouth once daily. - atorvastatin (LIPITOR) 40 mg tablet Take 1 tablet by mouth daily at bedtime. For cholesterol. - buPROPion XL (WELLBUTRIN XL) 150 mg 24 hr tablet Take 1 tablet by mouth once daily. - tamsulosin (FLOMAX) 0.4 mg Take 2 capsules by mouth once daily. - dulaglutide (TRULICITY) 4.5 mg/0.5 mL pen injector Inject 4.5 mg subcutaneously one time a week. Gets through [facility]. - insulin glargine 100 unit/mL (3 mL) Inject 26 Units subcutaneously every morning. - gabapentin (NEURONTIN) 400 mg capsule Take 1 capsule by mouth two times a day AND 2 capsules daily at bedtime. Do all this for 90 days. - Blood-Glucose Sensor (DEXCOM G7 SENSOR) jackson Apply new sensor every ten (10) days. - ciclopirox (LOPROX) 0.77 % cream Apply to affected area two times a day. For 2 to 4 weeks till rash resolves. May treat recurrences for rash under abdominal pannus - acyclovir (ZOVIRAX) 400 mg tablet Take 1 tablet by mouth two times a day. - blood sugar diagnostic (BLOOD GLUCOSE TEST) test strip Test blood sugar(s) 3 to 4 times daily. Dx: Other DM Code E11.51 Insulin: Yes One touch or Accucheck strips or strips covered by her insurance. - Lancets Test blood sugar(s) 3 to 4 times daily. Dx: Other DM Code E11.51 Insulin: Yes - clobetasol (TEMOVATE) 0.05 % ointment Apply nightly to affected area for 8-12 weeks, then 1-3x weekly for maintenance - apixaban (ELIQUIS) 5 mg tab(s) Take 1 tablet by mouth two times a day. - hydrALAZINE (APRESOLINE) 50 mg tablet Take 1 tablet by mouth two times a day. Hold for SBP less than 120mm HG - pantoprazole DR (PROTONIX) 40 mg tablet Take 1 tablet by mouth once daily. - carvedilol (COREG) 6.25 mg tablet Take 1 tablet by mouth two times a day with meals. - nystatin (MYCOSTATIN) powder Apply 1 application to affected area twice daily as needed. For prevention - B complex w-C no.20/folic acid (B COMPLEX WITH C 20-FOLIC ACID ORAL) Take 1 tablet by mouth once daily. - berberine/herbal complex no.18 (BERBERINE-HERBAL COMB NO.18 ORAL) Take 1,200 mg by mouth once daily. - Magnesium Oxide 500 mg tab Take 1 tablet by mouth once daily. For constipation - Blood-Glucose Meter,Continuous (DEXCOM G7 ENVELOPE SEALER) [facility] Use to check blood sugar at least four (4) times daily. - nitroglycerin sublingual (NITROQUICK) 0.4 mg SL tablet Dissolve 1 tablet under the tongue as needed. As directed - insulin needles, DISPOSABLE, (PEN NEEDLE) 31 gauge x 5/16 Use one needle per dose. 5 per day. - bacitracin zinc 500 unit/gram ointment Apply to affected area twice daily. As directed for affected area till healed - cetirizine (ZYRTEC) 10 mg tablet Take 1 tablet by mouth once daily as needed. - aspirin, enteric coated (ASPIRIN, ENTERIC COATED) 81 mg EC tablet Take 1 tablet by mouth once daily. - cyanocobalamin, vitamin B-12, 5,000 mcg subl Dissolve under the tongue once daily. - ascorbic acid, vitamin C, (VITAMIN C) 500 mg tablet Take 1,000 mg by mouth once daily. - biotin 5,000 mcg ODT Take 1 tablet by mouth once daily. - polyethylene glycol 3350 (MIRALAX) 17 gram/dose powder Take 17 g by mouth as directed. Meds Comments as of 12/16/2019: 12/16/19 The medications are managed by this patient by: PATIENT Zulay J Cortelli Pharm-T Problem List As Of Date 08/20/2024 Noted Resolved Hemiparesis affecting dominant side as late eff*10/15/2014 Type 2 diabetes mellitus with peripheral neurop*10/15/2014 01/16/2019 Dupuytren's disease of palm [M72.0] 10/15/2014 Genital herpes simplex type 1 infection [A60.00]10/15/2014 Anxiety [F41.9] 10/15/2014 Balance problem [R26.89] 10/15/2014 03/05/2020 Diabetic ulcer of left foot associated with tristen*12/21/2015 01/31/2017 Type 2 diabetes mellitus with diabetic neuropat*12/22/2015 Reactive depression [F32.9] 12/28/2015 03/05/2020 Essential hypertension [I10] 02/03/2016 Hyperlipidemia [E78.5] 02/03/2016 Constitutional obesity [E66.89] 02/03/2016 03/05/2020 PVD (peripheral va (more content not included)... [facility] 08-11-2024 History of Present illness Narrative Primary Care Pharmacy Visit CC (Reason for Consult): Diabetes (E11.22, N18.32, Z79.4) Type 2 diabetes mellitus with stage 3b chronic kidney disease, with long-term current use of insulin ([facility]) (primary encounter diagnosis) Goal: A1c < 8% Last Collaborating Provider Visit: 06/13/24 Miriam Thomas is a 69 year old female presenting for follow up visit virtually. Patient consents to pharmacy collaborative practice agreement. Interim Events: 03/17: PCP referred to pharmacy. 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 Barnes, with [facility]. She suggested getting off vitamin D3, calcium citrate, furosemide. States she was told she could get off tamsulosin if she wanted to - said it was started when she was in a [facility] and was experiencing urinary retention. Currently taking 1 capsule daily. Started in 2019 for urinary retention. She isn't sure if she still needs it and nephro told her she could try without. Often wakes up sometime between 3-4 AM. Takes a couple hours to fall asleep. Wondering if any of her meds make her drowsy (she gets drowsy after taking medication). Feels tired most mornings. Has had this for a while but seems to be getting worse. Not sure if it is an ADR of medication, a side effect of depression, or because she doesn't sleep well. Current DM Medications: Dulaglutide (Trulicity) 4.5mg weekly on Mondays Insulin glargine (Basaglar) 26 units daily QAM Insulin lispro (Humalog) 10 units with breakfast and 4 units with dinner Past DM medications: Metformin (GI upset) Glipizide Jardiance (yeast infxns) CGM Data Sensor usage: ? (Goal >70%) Hypoglycemia events: 3%, ? events; has had some low sugars reach 56 mg/dL; usually happens before lunch, has confirmed with fingerstick, still <70 mg/dL Date range Overall AVG 12a-6a 6a-12p 12p-6p 6p-12a TIME IN RANGE 14 day (%) 7 day ABOVE 1 14 day IN (80-180) 96 30 day BELOW 3 90 day Preventative Medications: On HEIDI/ARB: No On Statin: Yes ROS: Patient denies CP, SOB, RANDLE, blurred vision, dizziness or lightheadedness Patient denies symptoms of hypoglycemia (sweating, anxiety, palpitations, hunger, and tremor) Patient denies symptoms of hyperglycemia (polyuria, polydipsia, polyphagia) Patient denies potential medication adverse effects MEDICATIONS: Pill bottles are not present. Adherence: denies missed doses. Pharmacy: [facility] [address] [place] [phone] [facility] [phone] Rx coverage: Payor: [facility] [facility] [employer] / Plan: [employer] [facility] MEDICARE ADVANTAGE HMO / Product Type: HMO / Medications affordable? 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 ([facility]) Recurrent Major Depression in Partial Remission ([facility]) Functional Dyspepsia Gastroesophageal Reflux Disease Diabetic Gastroparesis ([facility]) ([facility]) Lichen Sclerosus Type 2 Diabetes Mellitus With Diabetic Peripheral Angiopathy Without Gangrene, With Long-Term Current Use of Insulin ([facility]) Obesity, Class I, Bmi 30-34.9 Leukocytosis Type 2 Diabetes Mellitus With Stage 3b Chronic Kidney Disease, With Long-Term Current Use of Insulin ([facility]) Hx of Bka, Left ([facility]) Urinary Retention Muscular Deconditioning Moderate Episode of Recurrent Major Depressive Disorder ([facility]) Hypertensive Ckd (Chronic Kidney Disease) PAST MEDICAL HISTORY Diagnosis Date Anxiety Arthritis Depression MARITZA exposure in utero Diabetes mellitus ([facility]) 1986 Diabetic neuropathy ([facility]) Gangrene ([facility]) Heart attack ([facility]) [address] Adalberto [employer] [place] Herniated disc Hypertension Muscular deconditioning PVD (peripheral vascular disease) ([facility]) 10/2019 S/P BKA (below knee amputation) unilateral, left ([facility]) Sleep apnea cpap Snoring Stroke ([facility]) 11/2004 and 05/2005 x 2, right sided weakness Past medical history reviewed. ALLERGIES Allergen Reactions Meloxicam GI Upset Sulfa (Sulfonamide * Swelling Facial swelling, shortness of breath. Medication List Medication Directions Comments Action/Plan acyclovir (ZOVIRAX) 400 mg tablet Take 1 tablet by mouth two times a day. Taking BID apixaban (ELIQUIS) 5 mg tab(s) Take 1 tablet by mouth two times a day. Taking BID ascorbic acid, vitamin C, (VITAMIN C) 500 mg tablet Take 1,000 mg by mouth once daily. Taking QAM aspirin, enteric coated (ASPIRIN, ENTERIC COATED) 81 mg EC tablet Take 1 tablet by mouth once daily. Taking QAM atorvastatin (LIPITOR) 20 mg tablet Take 2 tablets by mouth once daily. Thinks she has a 40mg tablet Removed from med list atorvastatin (LIPITOR) 40 mg tablet Take 1 tablet by mouth daily at bedtime. For cholesterol. Taking 40mg QPM B complex w-C no.20/folic acid (B COMPLEX WITH C 20-FOLIC ACID ORAL) Take 1 tablet by mouth once daily. Taking QAM bacitracin zinc 500 unit/gram ointment Apply to affected area twice daily. As directed for affected area till healed Uses PRN berberine/herbal complex no.18 (BERBERINE-HERBAL COMB NO.18 ORAL) Take 1,200 mg by mouth once daily. Taking QAM biotin 5,000 mcg ODT Take 1 tablet by mouth once daily. Taking QPM blood sugar diagnostic (BLOOD GLUCOSE TEST) test strip Test blood sugar(s) 3 to 4 times daily. Dx: Other DM Code E11.51 Insulin: Yes One touch or Accucheck strips or strips covered by her insurance. supplies Blood-Glucose Meter,Continuous (DEXCOM G7 ENVELOPE SEALER) [facility] Use to check blood sugar at least four (4) times daily. supplies Blood-Glucose Sensor (DEXCOM G7 SENSOR) jackson Apply new sensor every ten (10) days. supplies buPROPion XL (WELLBUTRIN XL) 150 mg 24 hr tablet Take 1 tablet by mouth once daily. Taking QAM carvedilol (COREG) 6.25 mg tablet Take 1 tablet by mouth two times a day with meals. Taking BID cetirizine (ZYRTEC) 10 mg tablet Take 1 tablet by mouth once daily as needed. Using PRN Cholecalciferol, Vitamin D3, 50 mcg (2,000 unit) cap Take 1 capsule by mouth once daily. Not taking; stopped by nephro ciclopirox (LOPROX) 0.77 % cream Apply to affected area two times a day. For 2 to 4 weeks till rash resolves. May treat recurrences for rash under abdominal pannus PRN clobetasol (TEMOVATE) 0.05 % ointment Apply nightly to affected area for 8-12 weeks, then 1-3x weekly for maintenance PRN cyanocobalamin, vitamin B-12, 5,000 mcg subl Dissolve under the tongue once daily. Taking QAM dulaglutide (TRULICITY) 4.5 mg/0.5 mL pen injector Inject 4.5 mg subcutaneously one time a week. Gets through [facility]. taking escitalopram oxalate (LEXAPRO) 20 mg tablet Take 1 tablet by mouth once daily. Taking QAM ferrous sulfate 325 mg (65 mg iron) tablet Take 1 tablet by mouth every Sunday, Sunday, and Sunday. Patient not taking: Reported on 03/17/2024 Not taking, caused too much constipation and GI pain Removed from med list furosemide (LASIX) 40 mg tablet Take 1 tablet by mouth once daily. Nephro stopped Removed from med list gabapentin (NEURONTIN) 400 mg capsule Take 1 capsule by mouth two times a day AND 2 capsules daily at bedtime. Do all this for 90 days. Patient taking differently: Take 1 capsule by mouth in the afternoon AND 2 capsules daily at bedtime. Do all this for 90 days. Taking 1 cap in the afternoon and 2 at night; will sometimes take an extra tablet hydrALAZINE (APRESOLINE) 50 mg tablet Take 1 tablet by mouth two times a day. Hold for SBP less than 120mm HG Taking as directed BID, taking it most days insulin glargine 100 unit/mL (3 mL) Inject 26 Units subcutaneously every morning. taking insulin lispro (HUMALOG KWIKPEN) 100 unit/mL Inject 10 units with breakfast and 4 units with evening meal as directed. Patient assistance medication. taking insulin needles, DISPOSABLE, (PEN NEEDLE) 31 gauge x 5/16 Use one needle per dose. 5 per day. supplies Lancets Test blood sugar(s) 3 to 4 times daily. Dx: Other DM Code E11.51 Insulin: Yes supplies Magnesium Oxide 500 mg tab Take 1 tablet by mouth once daily. For constipation Taking QAM nitroglycerin sublingual (NITROQUICK) 0.4 mg SL tablet Dissolve 1 tablet under the tongue as needed. As directed PRN nystatin (MYCOSTATIN) powder Apply 1 application to affected area twice daily as needed. For prevention PRN pantoprazole DR (PROTONIX) 40 mg tablet Take 1 tablet by mouth once daily. Taking QAM polyethylene glycol 3350 (MIRALAX) 17 gram/dose powder Take 17 g by mouth as directed. PRN tamsulosin (FLOMAX) 0.4 mg Take 2 capsules by mouth once daily. Taking 1 capsule QAM Zinc 50 mg tab Take by mouth once daily. Stopped taking Removed from med list Rx meds not listed in EPIC: none OTCs: none Herbals: none Exam: There were no vitals taken for this visit. Last 3 Encounter BP Readings: Date: BP: 06/13/2024 157/70 04/03/2024 146/68 03/17/2024 108/58 Wt: 90.7 kg (199 lb 15.3 oz) BMI: 36.57 kg/(m^2) LABS: Reviewed Lab Results Component Value Date HBA1C 6.1 06/13/2024 HBA1C 6.1 12/11/2023 HBA1C 5.7 12/07/2022 HBA1C 5.4 05/09/2021 HBA1C 6.3 06/09/2020 HBA1C 6.7 03/02/2020 CMP: Glucose 125 06/13/2024 BUN 38 06/13/2024 Creatinine 1.78 06/13/2024 Sodium (I-STAT) 143 06/13/2024 Potassium (I-STAT) 5.2 06/13/2024 Chloride 107 06/13/2024 CO2 24 06/13/2024 Protein, Total 7.0 06/13/2024 Albumin 4.4 06/13/2024 Calcium 11.3 06/13/2024 Alkaline Phosphatase 100 06/13/2024 Bilirubin, Total 0.2 06/13/2024 AST 15 06/13/2024 ALT 21 06/13/2024 eGFR 31 Lab Results Component Value Date CHOL 153 06/13/2024 CHOL 157 12/11/2023 CHOL 145 09/20/2020 LDL 72 06/13/2024 LDL 71 09/20/2020 HDL 48 06/13/2024 HDL 55 12/11/2023 HDL 51 09/20/2020 TG 167 06/13/2024 TG 119 12/11/2023 TG 114 09/20/2020 The ASCVD Risk score (Tiera EDGE, et al., 2019) failed to calculate for the following reasons: The patient has a prior TX or stroke diagnosis Albumin/Creat Ratio (mg/g) Date Value 12/11/2023 113 (H) PHARMACOTHERAPY ASSESSMENT/PLAN: 1. Type 2 diabetes mellitus with stage 3b chronic kidney disease, with long-term current use of insulin ([facility]) - ICD9: 250.40, 585.3, V58.67, ICD10: E11.22, N18.32, Z79.4 A1c goal < 8%; controlled (last A1c 6.1%); TIR at goal; having some lows before lunch so will decrease breakfast insulin; overall feeling well; f/up in 6 mo or sooner if needed DECREASE breakfast Humalog dose to 8 units (new regimen is 8 units with breakfast and 4 units with dinner) Continue current medications Advised to let me know if still having issues with low sugar Will reach out to PAP electronics warfare technician to make sure patient on PAP renewal list for 2024 (Basaglar, Trulicity, Humalog) 2. Medication management - ICD9: V58.69, ICD10: Z79.899 Reviewed all medications, indications, dosing, frequency, administration with patient. Medication list updated as described above. Drowsiness as possible ADR --> Patient feels tired mid-morning after taking AM medications. Did med review, suggested switching escitalopram to evening to see if that helps Nephro recently stopped furosemide, vitamin D, and calcium --> med list updated. Neprho also suggested getting off tamsulosin --> suggested to patient to try decreasing to 1 capsule every other day for 1 week then stop and monitor if sx of urinary retention return Follow-up Patient is scheduled to see PCP team on 12/19. Patient to have f/up with PharmD team on 02/09. Patient verbalized understanding of instructions. Adelaide Ann PharmD, [facility] Primary Care Clinical Pharmacist Time spent: 24 mins documented in this encounter [facility] 08-11-2024 Note HNO ID: [id number] Author: ADELAIDE ANN RPh Service: ? Author Type: Pharmacist Type: Progress Notes Filed: 08/11/2024 15:42 Note Text: Primary Care Pharmacy Visit CC (Reason for Consult): Diabetes (E11.22, N18.32, Z79.4) Type 2 diabetes mellitus with stage 3b chronic kidney disease, with long-term current use of insulin ([facility]) (primary encounter diagnosis) Goal: A1c < 8% Last Collaborating Provider Visit: 06/13/24 Miriam Thomas is a 69 year old female presenting for follow up visit virtually. Patient consents to pharmacy collaborative practice agreement. Interim Events: 03/17: PCP referred to pharmacy. 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 Barnes, with [facility]. She suggested getting off vitamin D3, calcium citrate, furosemide. States she was told she could get off tamsulosin if she wanted to - said it was started when she was in a [facility] and was experiencing urinary retention. Currently taking 1 capsule daily. Started in 2019 for urinary retention. She isn't sure if she still needs it and nephro told her she could try without. Often wakes up sometime between 3-4 AM. Takes a couple hours to fall asleep. Wondering if any of her meds make her drowsy (she gets drowsy after taking medication). Feels tired most mornings. Has had this for a while but seems to be getting worse. Not sure if it is an ADR of medication, a side effect of depression, or because she doesn't sleep well. Current DM Medications: Dulaglutide (Trulicity) 4.5mg weekly on Mondays Insulin glargine (Basaglar) 26 units daily QAM Insulin lispro (Humalog) 10 units with breakfast and 4 units with dinner Past DM medications: Metformin (GI upset) Glipizide Jardiance (yeast infxns) CGM Data Sensor usage: ? (Goal >70%) Hypoglycemia events: 3%, ? events; has had some low sugars reach 56 mg/dL; usually happens before lunch, has confirmed with fingerstick, still <70 mg/dL Date range Overall AVG 12a-6a 6a-12p 12p-6p 6p-12a TIME IN RANGE 14 day (%) 7 day ABOVE 1 14 day IN (80-180) 96 30 day BELOW 3 90 day Preventative Medications: On HEIDI/ARB: No On Statin: Yes ROS: Patient denies CP, SOB, RANDLE, blurred vision, dizziness or lightheadedness Patient denies symptoms of hypoglycemia (sweating, anxiety, palpitations, hunger, and tremor) Patient denies symptoms of hyperglycemia (polyuria, polydipsia, polyphagia) Patient denies potential medication adverse effects MEDICATIONS: Pill bottles are not present. Adherence: denies missed doses. Pharmacy: [facility] [address] [place] [phone] [facility] [phone] Rx coverage: Payor: [employer] / Plan: [employer] ADVANTAGE HMO / Product Type: HMO / Medications affordable? 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 ([facility]) Recurrent Major Depression in Partial Remission ([facility]) Functional Dyspepsia Gastroesophageal Reflux Disease Diabetic Gastroparesis ([facility]) ([facility]) Lichen Sclerosus Type 2 Diabetes Mellitus With Diabetic Peripheral Angiopathy Without Gangrene, With Long-Term Current Use of Insulin ([facility]) Obesity, Class I, Bmi 30-34.9 Leukocytosis Type 2 Diabetes Mellitus With Stage 3b Chronic Kidney Disease, With Long-Term Current Use of Insulin ([facility]) Hx of Bka, Left ([facility]) Urinary Retention Muscular Deconditioning Moderate Episode of Recurrent Major Depressive Disorder ([facility]) Hypertensive Ckd (Chronic Kidney Disease) PAST MEDICAL HISTORY Diagnosis Date Anxiety Arthritis Depression MARITZA exposure in utero Diabetes mellitus ([facility]) 1986 Diabetic neuropathy ([facility]) Gangrene ([facility]) Heart attack ([facility]) [address] Adalberto [employer] [place] Herniated disc Hypertension Muscular deconditioning PVD (peripheral vascular disease) ([facility]) 10/2019 S/P BKA (below knee amputation) unilateral, left ([facility]) Sleep apnea cpap Snoring Stroke ([facility]) 11/2004 and 05/2005 x 2, right sided weakness Past medical history reviewed. ALLERGIES Allergen Reactions Meloxicam GI Upset Sulfa (Sulfonamide * (more content not included)... [facility] 08-11-2024 Note HNO ID: [id number] Author: FRANCISCA NELSON RN Service: ? Author Type: Registered Nurse Type: Progress Notes Filed: 08/11/2024 11:20 Note Text: CDM Telephonic Outreach Provider Action/FYI CDM Outreach notes: CKD3 , HTN, DM 3rd attempt this cycle 06/26/24 last P[facility] CDM contact. Contacted for: Routine Telephonic Outreach Contact made with patient: No, left message. Francisca Nelson RN August 11, 2024 11:19 AM [facility] 08-11-2024 History of Present illness Narrative CDM Telephonic Outreach Provider Action/FYI CDM Outreach notes: CKD3 , HTN, DM 3rd attempt this cycle 06/26/24 last PCC CDM contact. Contacted for: Routine Telephonic Outreach Contact made with patient: No, left message. Francisca Nelson RN August 11, 2024 11:19 AM documented in this encounter [facility] 08-11-2024 Note Patient Outreach (AM [facility]) MIRIAM THOMAS ([id number]) 1955 F Date Time Provider Department 08/11/24 FRANCISCA NELSON [facility] [place] your visit today, we recorded the following information about you: Francisca Nelson RN 08/11/2024 11:20 AM Signed CDM Telephonic Outreach Provider Action/FYI CDM Outreach notes: CKD3 , HTN, DM 3rd attempt this cycle 06/26/24 last PCC CDM contact. Contacted for: Routine Telephonic Outreach Contact made with patient: No, left message. Francisca Nelson RN August 11, 2024 11:19 AM Allergies As of Date: 08/11/2024 Noted Allergy Reaction MELOXICAM 06/22/2016 8 - GI Upset SULFA (SULFONAMIDE ANTIBIOTICS) 10/15/2014 7 - Swelling Comments: Facial swelling, shortness of breath. Date Reviewed: 06/13/2024 Reviewed by: Rhina Carrasco APRN.COMMUNICABLE DISEASE SPECIALIST - Fully Assessed Reason for Visit: CDM [Other] Cmt: Chronic Disease Management routine call Prescriptions as of 08/11/2024 - escitalopram oxalate (LEXAPRO) 20 mg tablet Take 1 tablet by mouth once daily. - atorvastatin (LIPITOR) 40 mg tablet Take 1 tablet by mouth daily at bedtime. For cholesterol. - buPROPion XL (WELLBUTRIN XL) 150 mg 24 hr tablet Take 1 tablet by mouth once daily. - tamsulosin (FLOMAX) 0.4 mg Take 2 capsules by mouth once daily. - dulaglutide (TRULICITY) 4.5 mg/0.5 mL pen injector Inject 4.5 mg subcutaneously one time a week. Gets through [facility]. - insulin glargine 100 unit/mL (3 mL) Inject 26 Units subcutaneously every morning. - atorvastatin (LIPITOR) 20 mg tablet Take 2 tablets by mouth once daily. - insulin lispro (HUMALOG KWIKPEN) 100 unit/mL Inject 10 units with breakfast and 4 units with evening meal as directed. Patient assistance medication. - gabapentin (NEURONTIN) 400 mg capsule Take 1 capsule by mouth two times a day AND 2 capsules daily at bedtime. Do all this for 90 days. - Blood-Glucose Sensor (Planspot G7 SENSOR) jackson Apply new sensor every ten (10) days. - ciclopirox (LOPROX) 0.77 % cream Apply to affected area two times a day. For 2 to 4 weeks till rash resolves. May treat recurrences for rash under abdominal pannus - acyclovir (ZOVIRAX) 400 mg tablet Take 1 tablet by mouth two times a day. - blood sugar diagnostic (BLOOD GLUCOSE TEST) test strip Test blood sugar(s) 3 to 4 times daily. Dx: Other DM Code E11.51 Insulin: Yes One touch or Accucheck strips or strips covered by her insurance. - Lancets Test blood sugar(s) 3 to 4 times daily. Dx: Other DM Code E11.51 Insulin: Yes - clobetasol (TEMOVATE) 0.05 % ointment Apply nightly to affected area for 8-12 weeks, then 1-3x weekly for maintenance - apixaban (ELIQUIS) 5 mg tab(s) Take 1 tablet by mouth two times a day. - ferrous sulfate 325 mg (65 mg iron) tablet Take 1 tablet by mouth every Sunday, Sunday, and Sunday. - furosemide (LASIX) 40 mg tablet Take 1 tablet by mouth once daily. - hydrALAZINE (APRESOLINE) 50 mg tablet Take 1 tablet by mouth two times a day. Hold for SBP less than 120mm HG - pantoprazole DR (PROTONIX) 40 mg tablet Take 1 tablet by mouth once daily. - carvedilol (COREG) 6.25 mg tablet Take 1 tablet by mouth two times a day with meals. - nystatin (MYCOSTATIN) powder Apply 1 application to affected area twice daily as needed. For prevention - B complex w-C no.20/folic acid (B COMPLEX WITH C 20-FOLIC ACID ORAL) Take 1 tablet by mouth once daily. - berberine/herbal complex no.18 (BERBERINE-HERBAL COMB NO.18 ORAL) Take 1,200 mg by mouth once daily. - Magnesium Oxide 500 mg tab Take 1 tablet by mouth once daily. For constipation - Blood-Glucose Meter,Continuous ([employer] G7 ENVELOPE SEALER) misc Use to check blood sugar at least four (4) times daily. - nitroglycerin sublingual (NITROQUICK) 0.4 mg SL tablet Dissolve 1 tablet under the tongue as needed. As directed - insulin needles, DISPOSABLE, (PEN NEEDLE) 31 gauge x 5/16 Use one needle per dose. 5 per day. - bacitracin zinc 500 unit/gram ointment Apply to affected area twice daily. As directed for affected area till healed - cetirizine (ZYRTEC) 10 mg tablet Take 1 tablet by mouth once daily as needed. - aspirin, enteric coated (ASPIRIN, ENTERIC COATED) 81 mg EC tablet Take 1 tablet by mouth once daily. - Zinc 50 mg tab Take by mouth once daily. - cyanocobalamin, vitamin B-12, 5,000 mcg subl Dissolve under the tongue once daily. - ascorbic acid, vitamin C, (VITAMIN C) 500 mg tablet Take 1,000 mg by mouth once daily. - biotin 5,000 mcg ODT Take 1 tablet by mouth once daily. - Cholecalciferol, Vitamin D3, 50 mcg (2,000 unit) cap Take 1 capsule by mouth once daily. - polyethylene glycol 3350 (MIRALAX) 17 gram/dose powder Take 17 g by mouth as directed. Meds Comments as of 12/16/2019: 12/16/19 The medications are managed by this patient by: PATIENT Zulay Tejeda Pharm-T Problem List As Of Date 08/11/2024 Noted Resolved (more content not included)... [facility] 07-30-2024 Miscellaneous Notes 1st attempt to reschedule. Called and lmom. Patient was scheduled with PharmD for a virtual visit on 07/23 but had to cancel. Sent MyChart message earlier though has not yet reviewed. Primary Care Pharmacy Rescheduling Outreach Call center, please contact patient and reschedule telephone and virtual visit for Diabetes management within ~3 week(s). (Visit length: 30 minutes) Thank you, Adelaide Ann RP 07/30/2024 9:11 AM documented in this encounter [facility] 07-30-2024 Telephone encounter Note 1st attempt to reschedule. Called and lmom. [facility] 07-30-2024 Telephone encounter Note Patient was scheduled with PharmD for a virtual visit on 07/23 but had to cancel. Sent MyChart message earlier though has not yet reviewed. Primary Care Pharmacy Rescheduling Outreach Call center, please contact patient and reschedule telephone and virtual visit for Diabetes management within ~3 week(s). (Visit length: 30 minutes) Thank you, Adelaide Ann [facility] 07/30/2024 9:11 AM [facility] Work Phone: 07-28-2024 Note HNO ID: [id number] Author: FRANCISCA NELSON RN Service: ? Author Type: Registered Nurse Type: Progress Notes Filed: 07/28/2024 13:56 Note Text: CDM Telephonic Outreach Provider Action/FYI CDM Outreach notes: CKD3 , HTN, DM 2nd attempt this cycle 06/26/24 last PCC CDM contact. Contacted for: Routine Telephonic Outreach Contact made with patient: No, left message. Francisca Nelson RN July 28, 2024 1:56 PM [facility] 07-25-2024 Note HNO ID: [id number] Author: FRANCISCA NELSON RN Service: ? Author Type: Registered Nurse Type: Progress Notes Filed: 07/28/2024 13:56 Note Text: CDM Telephonic Outreach Provider Action/FYI Contacted for: Routine Telephonic Outreach Contact made with patient: No, left message. Francisca Nelson RN July 25, 2024 2:28 PM [facility] 07-25-2024 Note Patient Outreach (AM [facility]) MIRIAM THOMAS ([id number]) 1955 F Date Time Provider Department 07/25/24 FRANCISCA NELSON [facility] [place] During your visit today, we recorded the following information about you: Francisca Nelson RN 07/28/2024 1:56 PM Signed CDM Telephonic Outreach Provider Action/FYI Contacted for: Routine Telephonic Outreach Contact made with patient: No, left message. Francisca Nelson RN July 25, 2024 2:28 PM Francisca Nelson RN 07/28/2024 1:56 PM Signed CDM Telephonic Outreach Provider Action/FYI CDM Outreach notes: CKD3 , HTN, DM 2nd attempt this cycle 06/26/24 last PCC CDM contact. Contacted for: Routine Telephonic Outreach Contact made with patient: No, left message. Francisca Nelson RN July 28, 2024 1:56 PM Allergies As of Date: 07/25/2024 Noted Allergy Reaction MELOXICAM 06/22/2016 8 - GI Upset SULFA (SULFONAMIDE ANTIBIOTICS) 10/15/2014 7 - Swelling Comments: Facial swelling, shortness of breath. Date Reviewed: 06/13/2024 Reviewed by: Rhina Carrasco APRN.COMMUNICABLE DISEASE SPECIALIST - Fully Assessed Reason for Visit: CDM [Other] Cmt: Chronic Disease Management routine call Prescriptions as of 07/28/2024 - escitalopram oxalate (LEXAPRO) 20 mg tablet Take 1 tablet by mouth once daily. - atorvastatin (LIPITOR) 40 mg tablet Take 1 tablet by mouth daily at bedtime. For cholesterol. - buPROPion XL (WELLBUTRIN XL) 150 mg 24 hr tablet Take 1 tablet by mouth once daily. - tamsulosin (FLOMAX) 0.4 mg Take 2 capsules by mouth once daily. - dulaglutide (TRULICITY) 4.5 mg/0.5 mL pen injector Inject 4.5 mg subcutaneously one time a week. Gets through [facility]. - insulin glargine 100 unit/mL (3 mL) Inject 26 Units subcutaneously every morning. - atorvastatin (LIPITOR) 20 mg tablet Take 2 tablets by mouth once daily. - insulin lispro (HUMALOG KWIKPEN) 100 unit/mL Inject 10 units with breakfast and 4 units with evening meal as directed. Patient assistance medication. - gabapentin (NEURONTIN) 400 mg capsule Take 1 capsule by mouth two times a day AND 2 capsules daily at bedtime. Do all this for 90 days. - Blood-Glucose Sensor (Planspot G7 SENSOR) jackson Apply new sensor every ten (10) days. - ciclopirox (LOPROX) 0.77 % cream Apply to affected area two times a day. For 2 to 4 weeks till rash resolves. May treat recurrences for rash under abdominal pannus - acyclovir (ZOVIRAX) 400 mg tablet Take 1 tablet by mouth two times a day. - blood sugar diagnostic (BLOOD GLUCOSE TEST) test strip Test blood sugar(s) 3 to 4 times daily. Dx: Other DM Code E11.51 Insulin: Yes One touch or Accucheck strips or strips covered by her insurance. - Lancets Test blood sugar(s) 3 to 4 times daily. Dx: Other DM Code E11.51 Insulin: Yes - clobetasol (TEMOVATE) 0.05 % ointment Apply nightly to affected area for 8-12 weeks, then 1-3x weekly for maintenance - apixaban (ELIQUIS) 5 mg tab(s) Take 1 tablet by mouth two times a day. - ferrous sulfate 325 mg (65 mg iron) tablet Take 1 tablet by mouth every Sunday, Sunday, and Sunday. - furosemide (LASIX) 40 mg tablet Take 1 tablet by mouth once daily. - hydrALAZINE (APRESOLINE) 50 mg tablet Take 1 tablet by mouth two times a day. Hold for SBP less than 120mm HG - pantoprazole DR (PROTONIX) 40 mg tablet Take 1 tablet by mouth once daily. - carvedilol (COREG) 6.25 mg tablet Take 1 tablet by mouth two times a day with meals. - nystatin (MYCOSTATIN) powder Apply 1 application to affected area twice daily as needed. For prevention - B complex w-C no.20/folic acid (B COMPLEX WITH C 20-FOLIC ACID ORAL) Take 1 tablet by mouth once daily. - berberine/herbal complex no.18 (BERBERINE-HERBAL COMB NO.18 ORAL) Take 1,200 mg by mouth once daily. - Magnesium Oxide 500 mg tab Take 1 tablet by mouth once daily. For constipation - Blood-Glucose Meter,Continuous (Planspot G7 ENVELOPE SEALER) [facility] Use to check blood sugar at least four (4) times daily. - nitroglycerin sublingual (NITROQUICK) 0.4 mg SL tablet Dissolve 1 tablet under the tongue as needed. As directed - insulin needles, DISPOSABLE, (PEN NEEDLE) 31 gauge x 5/16 Use one needle per dose. 5 per day. - bacitracin zinc 500 unit/gram ointment Apply to affected area twice daily. As directed for affected area till healed - cetirizine (ZYRTEC) 10 mg tablet Take 1 tablet by mouth once daily as needed. - aspirin, enteric coated (ASPIRIN, ENTERIC COATED) 81 mg EC tablet Take 1 tablet by mouth once daily. - Zinc 50 mg tab Take by mouth once daily. - cyanocobalamin, vitamin B-12, 5,000 mcg subl Dissolve under the tongue once daily. - ascorbic acid, vitamin C, (VITAMIN C) 500 mg tablet Take 1,000 mg by mouth once daily. - biotin 5,000 mcg ODT Take 1 tablet by mouth once daily. - Cholecalciferol, Vitamin D3, 50 mcg (2,000 unit) cap Take 1 capsule by mouth once daily. - polyethylene glycol 3350 (MIRALAX) 17 gram/ (more content not included)... [facility] 07-22-2024 Telephone encounter Note Patient given provider's message below and agreeable to Lexapro increase. Uses [facility]. Please call patient with any further updates. Thank you. [facility] 07-22-2024 Miscellaneous Notes Patient given provider's message below and agreeable to Lexapro increase. Uses [facility]. Please call patient with any further updates. Thank you. Please return call and let her know there is room to increase both Lexapro and Wellbutrin, I would recommend we start by increasing her Lexapro to 20 mg daily, please see if she is agreeable. Patient calling in with an update. States she was ordered and began Wellbutrin and Lexapro on 06/13/24 for depressed mood. Reports she has no improvement. Reports she has been in bed for 3 days. Little appetite. No N/V/D or other sx's. Has only had about 20 ounces of fluid all day (4:40pm in afternoon now).; 8 oz coffee and 12 oz jose water. Reports her blood sugars have been a little low and she plans to increase her healthy snacks. No SI/HI. She states she was told to call in if no improvement. Please advise patient. Thank you. documented in this encounter [facility] 07-22-2024 Telephone encounter Note Please return call and let her know there is room to increase both Lexapro and Wellbutrin, I would recommend we start by increasing her Lexapro to 20 mg daily, please see if she is agreeable. [facility] 07-21-2024 Telephone encounter Note Patient calling in with an update. States she was ordered and began Wellbutrin and Lexapro on 06/13/24 for depressed mood. Reports she has no improvement. Reports she has been in bed for 3 days. Little appetite. No N/V/D or other sx's. Has only had about 20 ounces of fluid all day (4:40pm in afternoon now).; 8 oz coffee and 12 oz jose water. Reports her blood sugars have been a little low and she plans to increase her healthy snacks. No SI/HI. She states she was told to call in if no improvement. Please advise patient. Thank you. [facility] 06-27-2024 Note HNO ID: [id number] Author: FRANCISCA NELSON RN Service: ? Author Type: Registered Nurse Type: Progress Notes Filed: 06/27/2024 11:37 Note Text: CDM Telephonic Outreach Provider Action/FYI CDM Outreach notes: CKD3 , HTN, DM Patient reports restarted Wellbutrin and Lexapro - has appointments with pharmacist and Kidney Medicine Dr Barnes at [facility] hospital system Sleep provider noted SPO2 with CPAP 87% - patient scheduled for a breathing test. Endorses S[facility]. Discussed PULM rehabilitation and home SPO2 testing. Contacted for: Routine Telephonic Outreach Contact made with patient: Yes Patient identified by name and date of . Discussed care with patient Are you experiencing any new or worsening symptoms you need to talk about today? Yes Based on dispute resolution specialist, the following disposition is advised: No symptoms or symptoms present, not severe. Routed to: No Action Needed LAI Education Provided this Outreach: Yes Francisca Nelson RN June 27, 2024 11:34 AM [facility] 06-26-2024 Note HNO ID: [id number] Author: FRANCISCA NELSON RN Service: ? Author Type: Registered Nurse Type: Progress Notes Filed: 06/27/2024 11:37 Note Text: CDM Telephonic Outreach Provider Action/FYI Contacted for: Routine Telephonic Outreach Contact made with patient: No, left message. Francisca Nelson RN June 26, 2024 4:25 PM [facility] 06-26-2024 Note Patient Outreach (AM [facility]) MIRIAM THOMAS ([id number]) 1955 F Date Time Provider [facility] [place] your visit today, we recorded the following information about you: Francisca Nelson RN 06/27/2024 11:37 AM Signed CDM Telephonic Outreach Provider Action/FYI Contacted for: Routine Telephonic Outreach Contact made with patient: No, left message. Francisca Nelson RN June 26, 2024 4:25 PM Francisca Nelson RN 06/27/2024 11:37 AM Signed CD Telephonic Outreach Provider Action/FYI CDM Outreach notes: CKD3 , HTN, DM Patient reports restarted Wellbutrin and Lexapro - has appointments with pharmacist and Kidney Medicine Dr Barnes at [facility] Sleep provider noted SPO2 with CPAP 87% - patient scheduled for a breathing test. Endorses SILVA. Discussed PULM rehabilitation and home SPO2 testing. Contacted for: Routine Telephonic Outreach Contact made with patient: Yes Patient identified by name and date of . Discussed care with patient Are you experiencing any new or worsening symptoms you need to talk about today? Yes Based on dispute resolution specialist, the following disposition is advised: No symptoms or symptoms present, not severe. Routed to: No Action Needed LAI Education Provided this Outreach: Yes Francisca Nelson RN June 27, 2024 11:34 AM Allergies As of Date: 06/26/2024 Noted Allergy Reaction MELOXICAM 06/22/2016 8 - GI Upset SULFA (SULFONAMIDE ANTIBIOTICS) 10/15/2014 7 - Swelling Comments: Facial swelling, shortness of breath. Date Reviewed: 06/13/2024 Reviewed by: Rhina Carrasco APRN.COMMUNICABLE DISEASE SPECIALIST - Fully Assessed Reason for Visit: CDM [Other] Cmt: Chronic Disease Management routine call Prescriptions as of 06/27/2024 - atorvastatin (LIPITOR) 40 mg tablet Take 1 tablet by mouth daily at bedtime. For cholesterol. - escitalopram oxalate (LEXAPRO) 10 mg tablet Take 1 tablet by mouth once daily. - buPROPion XL (WELLBUTRIN XL) 150 mg 24 hr tablet Take 1 tablet by mouth once daily. - tamsulosin (FLOMAX) 0.4 mg Take 2 capsules by mouth once daily. - dulaglutide (TRULICITY) 4.5 mg/0.5 mL pen injector Inject 4.5 mg subcutaneously one time a week. Gets through [facility]. - insulin glargine 100 unit/mL (3 mL) Inject 26 Units subcutaneously every morning. - atorvastatin (LIPITOR) 20 mg tablet Take 2 tablets by mouth once daily. - insulin lispro (HUMALOG KWIKPEN) 100 unit/mL Inject 10 units with breakfast and 4 units with evening meal as directed. Patient assistance medication. - gabapentin (NEURONTIN) 400 mg capsule Take 1 capsule by mouth two times a day AND 2 capsules daily at bedtime. Do all this for 90 days. - Blood-Glucose Sensor (Planspot G7 SENSOR) jackson Apply new sensor every ten (10) days. - ciclopirox (LOPROX) 0.77 % cream Apply to affected area two times a day. For 2 to 4 weeks till rash resolves. May treat recurrences for rash under abdominal pannus - acyclovir (ZOVIRAX) 400 mg tablet Take 1 tablet by mouth two times a day. - blood sugar diagnostic (BLOOD GLUCOSE TEST) test strip Test blood sugar(s) 3 to 4 times daily. Dx: Other DM Code E11.51 Insulin: Yes One touch or Accucheck strips or strips covered by her insurance. - Lancets Test blood sugar(s) 3 to 4 times daily. Dx: Other DM Code E11.51 Insulin: Yes - clobetasol (TEMOVATE) 0.05 % ointment Apply nightly to affected area for 8-12 weeks, then 1-3x weekly for maintenance - apixaban (ELIQUIS) 5 mg tab(s) Take 1 tablet by mouth two times a day. - ferrous sulfate 325 mg (65 mg iron) tablet Take 1 tablet by mouth every Sunday, Sunday, and Sunday. - furosemide (LASIX) 40 mg tablet Take 1 tablet by mouth once daily. - hydrALAZINE (APRESOLINE) 50 mg tablet Take 1 tablet by mouth two times a day. Hold for SBP less than 120mm HG - pantoprazole DR (PROTONIX) 40 mg tablet Take 1 tablet by mouth once daily. - carvedilol (COREG) 6.25 mg tablet Take 1 tablet by mouth two times a day with meals. - nystatin (MYCOSTATIN) powder Apply 1 application to affected area twice daily as needed. For prevention - B complex w-C no.20/folic acid (B COMPLEX WITH C 20-FOLIC ACID ORAL) Take 1 tablet by mouth once daily. - berberine/herbal complex no.18 (BERBERINE-HERBAL COMB NO.18 ORAL) Take 1,200 mg by mouth once daily. - Magnesium Oxide 500 mg tab Take 1 tablet by mouth once daily. For constipation - Blood-Glucose Meter,Continuous (Planspot G7 ENVELOPE SEALER) [facility] Use to check blood sugar at least four (4) times daily. - nitroglycerin sublingual (NITROQUICK) 0.4 mg SL tablet Dissolve 1 tablet under the tongue as needed. As directed - insulin needles, DISPOSABLE, (PEN NEEDLE) 31 gauge x 5/16 Use one needle per dose. 5 per day. - bacitracin zinc 500 unit/gram ointment Apply to affected area twice daily. As directed for affected area till healed - cetirizine (ZY (more content not included)... [facility] 06-24-2024 Telephone encounter Note [facility] 06-24-2024 Miscellaneous Notes documented in this encounter [facility] 06-19-2024 Telephone encounter Note Patient calls and states that she needs a 90 day prescription for atorvastatin 40 mg to be sent to [facility]. Previous prescription was only for 45 days because it was 20 mg with directions to take 2 tablets daily. Atorvastatin 40 mg pended. The patient has been identified by name and date of : Yes Caregiver verified no other encounters exist for this prescription request: Yes Caregiver confirmed with patient/requestor that no other refills are due, in the near future, with this provider at this time: Yes The last office visit in the department: 06/13/2024 Does the patient have a future office visit with this provider/department: Yes 12/19/2024 Requested Prescriptions Pending Prescriptions Disp Refills atorvastatin (LIPITOR) 40 mg tablet 90 tablet 3 Sig: Take 1 tablet by mouth daily at bedtime. For cholesterol. Lizzie Mason RN June 19, 2024 9:54 AM [facility] 06-19-2024 Miscellaneous Notes Patient calls and states that she needs a 90 day prescription for atorvastatin 40 mg to be sent to [facility]. Previous prescription was only for 45 days because it was 20 mg with directions to take 2 tablets daily. Atorvastatin 40 mg pended. The patient has been identified by name and date of : Yes Caregiver verified no other encounters exist for this prescription request: Yes Caregiver confirmed with patient/requestor that no other refills are due, in the near future, with this provider at this time: Yes The last office visit in the department: 06/13/2024 Does the patient have a future office visit with this provider/department: Yes 12/19/2024 Requested Prescriptions Pending Prescriptions Disp Refills atorvastatin (LIPITOR) 40 mg tablet 90 tablet 3 Sig: Take 1 tablet by mouth daily at bedtime. For cholesterol. Lizzie Mason RN June 19, 2024 9:54 AM documented in this encounter [facility] 06-13-2024 Instructions Rhina Carrasco APRN.COMMUNICABLE DISEASE SPECIALIST - 06/13/2024 1:28 PM EDT We will add back Wellbutrin at 150 mg daily and Lexapro 10 mg daily to help with mood. Room to increase both if needed, just let us know. Increase the tamsulosin to 2 pills daily. If not helpful then let us know. Referral to the kidney doctor, Dr. Barnes. Get blood work today. documented in this encounter [facility] 06-13-2024 Note HNO ID: [id number] Author: RHINA CARRASCO APRN.BG Service: ? Author Type: Nurse Practitioner Type: Progress Notes Filed: 06/13/2024 13:58 Note Text: SUBJECTIVE Miriam Thomas is a 69 year old female here today for a check up on her medical problems. Chief Complaint Patient presents with: F/U 6 Month HPI Miriam Thomas is a 69 year old female. She is an established patient of Earl Shepherd MD. Here today for a 6 month follow up. Seen with Earl Shepherd MD 12/11. History of depression, type 2 DM, CKD, HTN, GERD, BKA. Having some eye issues lately, retinal issues. Right eye clear, left eye blurred. Following with pharmD for help with DM management. Some urinary issues still, trouble with starting stream, feels like she is emptying incompletely. Has been on tamsulosin for a while. Fall and winter are hard for her mood huerta, would like to start back on depression medication. Working on building strength and stamina, wants to be more mobile. Her medications were reviewed today and her list is now up to date. Medications Current Outpatient Medications Medication Sig dulaglutide (TRULICITY) 4.5 mg/0.5 mL pen injector Inject 4.5 mg subcutaneously one time a week. Gets through [facility]. insulin glargine 100 unit/mL (3 mL) Inject 26 Units subcutaneously every morning. atorvastatin (LIPITOR) 20 mg tablet Take 2 tablets by mouth once daily. insulin lispro (HUMALOG KWIKPEN) 100 unit/mL Inject 10 units with breakfast and 4 units with evening meal as directed. Patient assistance medication. gabapentin (NEURONTIN) 400 mg capsule Take 1 capsule by mouth two times a day AND 2 capsules daily at bedtime. Do all this for 90 days. (Patient taking differently: Take 1 capsule by mouth in the afternoon AND 2 capsules daily at bedtime. Do all this for 90 days.) Blood-Glucose Sensor (DEXCOM G7 SENSOR) jackson Apply new sensor every ten (10) days. ciclopirox (LOPROX) 0.77 % cream Apply to affected area two times a day. For 2 to 4 weeks till rash resolves. May treat recurrences for rash under abdominal pannus acyclovir (ZOVIRAX) 400 mg tablet Take 1 tablet by mouth two times a day. blood sugar diagnostic (BLOOD GLUCOSE TEST) test strip Test blood sugar(s) 3 to 4 times daily. Dx: Other DM Code E11.51 Insulin: Yes One touch or Accucheck strips or strips covered by her insurance. Lancets Test blood sugar(s) 3 to 4 times daily. Dx: Other DM Code E11.51 Insulin: Yes clobetasol (TEMOVATE) 0.05 % ointment Apply nightly to affected area for 8-12 weeks, then 1-3x weekly for maintenance apixaban (ELIQUIS) 5 mg tab(s) Take 1 tablet by mouth two times a day. furosemide (LASIX) 40 mg tablet Take 1 tablet by mouth once daily. hydrALAZINE (APRESOLINE) 50 mg tablet Take 1 tablet by mouth two times a day. Hold for SBP less than 120mm HG pantoprazole DR (PROTONIX) 40 mg tablet Take 1 tablet by mouth once daily. carvedilol (COREG) 6.25 mg tablet Take 1 tablet by mouth two times a day with meals. nystatin (MYCOSTATIN) powder Apply 1 application to affected area twice daily as needed. For prevention B complex w-C no.20/folic acid (B COMPLEX WITH C 20-FOLIC ACID ORAL) Take 1 tablet by mouth once daily. berberine/herbal complex no.18 (BERBERINE-HERBAL COMB NO.18 ORAL) Take 1,200 mg by mouth once daily. Magnesium Oxide 500 mg tab Take 1 tablet by mouth once daily. For constipation Blood-Glucose Meter,Continuous (DEXCOM G7 ENVELOPE SEALER) misc Use to check blood sugar at least four (4) times daily. nitroglycerin sublingual (NITROQUICK) 0.4 mg SL tablet Dissolve 1 tablet under the tongue as needed. As directed insulin needles, DISPOSABLE, (PEN NEEDLE) 31 gauge x 5/16 Use one needle per dose. 5 per day. bacitracin zinc 500 unit/gram ointment Apply to affected area twice daily. As directed for affected area till healed cetirizine (ZYRTEC) 10 mg tablet Take 1 tablet by mouth once daily as needed. aspirin, enteric coated (ASPIRIN, ENTERIC COATED) 81 mg EC tablet Take 1 tablet by mouth once daily. Zinc 50 mg tab Take by mouth once daily. cyanocobalamin, vitamin B-12, 5,000 mcg subl Dissolve under the tongue once daily. ascorbic acid, vitamin C, (VITAMIN C) 500 mg tablet Take 1,000 mg by mouth once daily. biotin 5,000 mcg ODT Take 1 tablet by mouth once daily. Cholecalciferol, Vitamin D3, 50 mcg (2,000 unit) cap Take 1 capsule by mouth once daily. polyethylene glycol 3350 (MIRALAX) 17 gram/dose powder Take 17 g by mouth as directed. escitalopram oxalate (LEXAPRO) 10 mg tablet Take 1 tablet by mouth once daily. buPROPion XL (WELLBUTRIN XL) 150 mg 24 hr tablet Take 1 tablet by mouth once daily. tamsulosin (FLOMAX) 0.4 mg Take 2 capsules by mouth once daily. ferrous sulfate 325 mg (65 mg iron) tablet Take 1 tablet by mouth every Sunday, Sunday, and Sunday. (Patient not taking: Reported on 03/17/2024) No current facility-administered medications for this visit. ALLERGIES Allergen Reac (more content not included)... [facility] 06-13-2024 History of Present illness Narrative SUBJECTIVE Miriam Thomas is a 69 year old female here today for a check up on her medical problems. Chief Complaint Patient presents with: F/U 6 Month HPI Miriam Thomas is a 69 year old female. She is an established patient of Earl Shepherd MD. Here today for a 6 month follow up. Seen with Earl Shepherd MD 12/11. History of depression, type 2 DM, CKD, HTN, GERD, BKA. Having some eye issues lately, retinal issues. Right eye clear, left eye blurred. Following with pharmD for help with DM management. Some urinary issues still, trouble with starting stream, feels like she is emptying incompletely. Has been on tamsulosin for a while. Fall and winter are hard for her mood huerta, would like to start back on depression medication. Working on building strength and stamina, wants to be more mobile. Her medications were reviewed today and her list is now up to date. \ Medications Current Outpatient Medications Medication Sig dulaglutide (TRULICITY) 4.5 mg/0.5 mL pen injector Inject 4.5 mg subcutaneously one time a week. Gets through [facility]. insulin glargine 100 unit/mL (3 mL) Inject 26 Units subcutaneously every morning. atorvastatin (LIPITOR) 20 mg tablet Take 2 tablets by mouth once daily. insulin lispro (HUMALOG KWIKPEN) 100 unit/mL Inject 10 units with breakfast and 4 units with evening meal as directed. Patient assistance medication. gabapentin (NEURONTIN) 400 mg capsule Take 1 capsule by mouth two times a day AND 2 capsules daily at bedtime. Do all this for 90 days. (Patient taking differently: Take 1 capsule by mouth in the afternoon AND 2 capsules daily at bedtime. Do all this for 90 days.) Blood-Glucose Sensor (ClickFoxCOM G7 SENSOR) jackson Apply new sensor every ten (10) days. ciclopirox (LOPROX) 0.77 % cream Apply to affected area two times a day. For 2 to 4 weeks till rash resolves. May treat recurrences for rash under abdominal pannus acyclovir (ZOVIRAX) 400 mg tablet Take 1 tablet by mouth two times a day. blood sugar diagnostic (BLOOD GLUCOSE TEST) test strip Test blood sugar(s) 3 to 4 times daily. Dx: Other DM Code E11.51 Insulin: Yes One touch or Accucheck strips or strips covered by her insurance. Lancets Test blood sugar(s) 3 to 4 times daily. Dx: Other DM Code E11.51 Insulin: Yes clobetasol (TEMOVATE) 0.05 % ointment Apply nightly to affected area for 8-12 weeks, then 1-3x weekly for maintenance apixaban (ELIQUIS) 5 mg tab(s) Take 1 tablet by mouth two times a day. furosemide (LASIX) 40 mg tablet Take 1 tablet by mouth once daily. hydrALAZINE (APRESOLINE) 50 mg tablet Take 1 tablet by mouth two times a day. Hold for SBP less than 120mm HG pantoprazole DR (PROTONIX) 40 mg tablet Take 1 tablet by mouth once daily. carvedilol (COREG) 6.25 mg tablet Take 1 tablet by mouth two times a day with meals. nystatin (MYCOSTATIN) powder Apply 1 application to affected area twice daily as needed. For prevention B complex w-C no.20/folic acid (B COMPLEX WITH C 20-FOLIC ACID ORAL) Take 1 tablet by mouth once daily. berberine/herbal complex no.18 (BERBERINE-HERBAL COMB NO.18 ORAL) Take 1,200 mg by mouth once daily. Magnesium Oxide 500 mg tab Take 1 tablet by mouth once daily. For constipation Blood-Glucose Meter,Continuous (DEXCOM G7 ENVELOPE SEALER) misc Use to check blood sugar at least four (4) times daily. nitroglycerin sublingual (NITROQUICK) 0.4 mg SL tablet Dissolve 1 tablet under the tongue as needed. As directed insulin needles, DISPOSABLE, (PEN NEEDLE) 31 gauge x 5/16 Use one needle per dose. 5 per day. bacitracin zinc 500 unit/gram ointment Apply to affected area twice daily. As directed for affected area till healed cetirizine (ZYRTEC) 10 mg tablet Take 1 tablet by mouth once daily as needed. aspirin, enteric coated (ASPIRIN, ENTERIC COATED) 81 mg EC tablet Take 1 tablet by mouth once daily. Zinc 50 mg tab Take by mouth once daily. cyanocobalamin, vitamin B-12, 5,000 mcg subl Dissolve under the tongue once daily. ascorbic acid, vitamin C, (VITAMIN C) 500 mg tablet Take 1,000 mg by mouth once daily. biotin 5,000 mcg ODT Take 1 tablet by mouth once daily. Cholecalciferol, Vitamin D3, 50 mcg (2,000 unit) cap Take 1 capsule by mouth once daily. polyethylene glycol 3350 (MIRALAX) 17 gram/dose powder Take 17 g by mouth as directed. escitalopram oxalate (LEXAPRO) 10 mg tablet Take 1 tablet by mouth once daily. buPROPion XL (WELLBUTRIN XL) 150 mg 24 hr tablet Take 1 tablet by mouth once daily. tamsulosin (FLOMAX) 0.4 mg Take 2 capsules by mouth once daily. ferrous sulfate 325 mg (65 mg iron) tablet Take 1 tablet by mouth every Sunday, Sunday, and Sunday. (Patient not taking: Reported on 03/17/2024) No current facility-administered medications for this visit. ALLERGIES Allergen Reactions Meloxicam GI Upset Sulfa (Sulfonamide * Swelling Facial swelling, shortness of breath. ACTIVE PROBLEM LIST Hypertensive Ckd (Chronic Kidney Disease) - 09/21/2022 Moderate Episode of Recurrent Major Depressive Disorder ([facility]) - 04/09/2021 Comment: Exacerbated with ongoing medical issues,financial stressors,etc (see HPI). Muscular Deconditioning Urinary Retention - 07/24/2020 Hx of Bka, Left ([facility]) - 07/20/2020 Type 2 Diabetes Mellitus With Stage 3b Chronic Kidney Disease, With Long-Term Current Use of Insulin ([facility]) - 03/05/2020 Leukocytosis - 12/11/2019 Obesity, Class I, Bmi 30-34.9 - 12/09/2019 Type 2 Diabetes Mellitus With Diabetic Peripheral Angiopathy Without Gangrene, With Long-Term Current Use of Insulin ([facility]) - 01/20/2019 Lichen Sclerosus - 03/19/2018 Diabetic Gastroparesis ([facility]) ([facility]) - 12/26/2017 Functional Dyspepsia - 11/20/2017 Comment: Added automatically from request for surgery [id number] Gastroesophageal Reflux Disease - 11/20/2017 Comment: Added automatically from request for surgery [id number] Recurrent Major Depression in Partial Remission ([facility]) - 11/15/2017 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 ([facility]) - 07/30/2017 Carpal Tunnel Syndrome, Bilateral - 05/04/2016 Essential Hypertension - 02/03/2016 Hyperlipidemia - 02/03/2016 Pvd (Peripheral Vascular Disease) ([facility]) - 02/03/2016 Abnormal Ekg - 02/03/2016 H/O: Stroke - 02/03/2016 Type 2 Diabetes Mellitus With Diabetic Neuropathy, With Long-Term Current Use of Insulin ([facility]) - 12/22/2015 Hemiparesis Affecting Dominant Side As Late Effect of Stroke ([facility]) - 10/15/2014 Dupuytren's Disease of Palm - 10/15/2014 Genital Herpes Simplex Type 1 Infection - 10/15/2014 Anxiety - 10/15/2014 Social History Tobacco Use Smoking status: Never Smokeless tobacco: Never Vaping Use Vaping status: Never Used Substance Use Topics Alcohol use: Yes Comment: Rarely Drug use: No Review of Systems Respiratory: Negative. Cardiovascular: Negative. OBJECTIVE BP 157/70 Pulse 82 Resp 16 Wt 199 lb 15.3 oz (90.7kg) Physical Exam Vitals and nursing note reviewed. Constitutional: General: She is awake. She is not in acute distress. Appearance: Normal appearance. She is well-developed and well-groomed. She is not ill-appearing, toxic-appearing or diaphoretic. HENT: Head: Normocephalic. Right Ear: External ear normal. Left Ear: External ear normal. Nose: Nose normal. Eyes: General: Vision grossly intact. Conjunctiva/sclera: Conjunctivae normal. Pupils: Pupils are equal, round, and reactive to light. Neck: Vascular: No JVD. Trachea: Trachea normal. Cardiovascular: Rate and Rhythm: Normal rate and regular rhythm. Pulses: Normal pulses. Heart sounds: Normal heart sounds. No murmur heard. Pulmonary: Effort: Pulmonary effort is normal. No accessory muscle usage, prolonged expiration or respiratory distress. Breath sounds: Normal breath sounds. Musculoskeletal: Cervical back: Neck supple. Left Lower Extremity: Left leg is amputated below knee. Skin: General: Skin is warm and dry. Capillary Refill: Capillary refill takes less than 2 seconds. Neurological: General: No focal deficit present. Mental Status: She is alert and oriented to person, place, and time. Mental status is at baseline. Psychiatric: Attention and Perception: Attention and perception normal. Mood and Affect: Mood and affect normal. Speech: Speech normal. Behavior: Behavior normal. Behavior is cooperative. Thought Content: Thought content normal. Cognition and Memory: Cognition and memory normal. Judgment: Judgment normal. ASSESSMENT/PLAN: 1. Type 2 diabetes mellitus with stage 3b chronic kidney disease, with long-term current use of insulin (HCC) - ICD9: 250.40, 585.3, V58.67, ICD10: E11.22, N18.32, Z79.4 (primary diagnosis) - Controlled, due for labs - Continue current medications - Counseled on healthy diet and regular exercise - Discussed need for and benefit of weight loss. BMI 36.57 kg/(m^2) - following with pharmD - eGFR: 33 Due for labs - Counseled on avoiding NSAIDs, adequate hydration - Counseled on low sodium diet - CONSULT TO NEPHROLOGY - HEMOGLOBIN A1C - LIPID PANEL, NONFASTING 2. Moderate episode of recurrent major depressive disorder (HCC) - ICD9: 296.32, ICD10: F33.1 Restart on Lexapro and Wellbutrin, tolerated well in the past. - ESCITALOPRAM 10 MG TABLET - BUPROPION XL 150 MG TAB 3. Essential hypertension - ICD9: 401.9, ICD10: I10 - Factors affecting control: lack of exercise - Continue current medications - Recommend home blood pressure monitoring, to bring results to next visit - Encouraged sodium restriction, DASH or Mediterranean diet - Recommend regular aerobic exercise 4. Gastroesophageal reflux disease without esophagitis - ICD9: 530.81, ICD10: K21.9 Stable. 5. Mixed hyperlipidemia - ICD9: 272.2, ICD10: E78.2 - Control undetermined, due for labs - Counseled on healthy diet and regular exercise 6. Proliferative diabetic retinopathy associated with type 2 diabetes mellitus, macular edema presence unspecified, unspecified laterality (HCC) - ICD9: 250.50, 362.02, ICD10: E11.3599 Following with eye provider. 7. Muscular deconditioning - ICD9: 781.99, ICD10: R29.898 Discussed strategies to implement at home to build strength and stability. 8. Hx of BKA, left (HCC) - ICD9: V49.75, ICD10: Z89.512 See above. Portions of this note have been entered by ancillary staff. I have reviewed and when necessary edited, so that they are an adequate record of my encounter with this patient Please note that parts of this document were created using voice recognition software and therefore may contain grammatical errors. Patient verbalizes understanding of instructions from today's visit and in agreement with treatment plan. Questions answered. Agrees to call the office if questions, concerns of issues with acute symptoms not improving or if they worsen. See diagnoses and orders for additional plan(s). Allergies and medications were reviewed, list was updated, and refills given if needed. Past medical, surgical, social, and family history reviewed and updated as appropriate. Encouraged proper diet & exercise as well as compliance with taking medications. Age-appropriate health preventative measures were discussed. Return if symptoms worsen or fail to improve, for Keep next scheduled appointment.. Rhina Carrasco APRN-BG documented in this encounter [facility] 06-04-2024 History of Present illness Narrative Primary Care Pharmacy Visit CC (Reason for Consult): Diabetes (E11.22, N18.32, Z79.4) Type 2 diabetes mellitus with stage 3b chronic kidney disease, with long-term current use of insulin (HCC) (primary encounter diagnosis) Goal: A1c < 8% Last Collaborating Provider Visit: 03/17/24 Miriam Thomas is a 69 year old female presenting for follow up visit telephone call. Patient consents to pharmacy collaborative practice agreement. Interim Events: 03/17: PCP referred to pharmacy. Referral comments = Work with PharmD to see if can help with med adjustment and help with weight loss 04/02: Trulicity switched to Mounjaro for better weight loss potential; patient later said Mounjaro was unaffordable so Trulicity increased to 3mg weekly 05/07: mealtime insulin shot added with dinner; atorvastatin increased HPI: Patient wants to continue to lose weight. Not feeling as bloated lately. Sugars have come down. Increased atorvastatin - no muscle aches or pains. Current DM Medications: Dulaglutide (Trulicity) 3mg weekly on Mondays Insulin glargine (Basaglar) 30 units daily QAM Insulin lispro (Humalog) 10 units with breakfast and 4 units with dinner Past DM medications: Metformin (GI upset) Glipizide Jardiance (yeast infxns) CGM Data Sensor usage: ? (Goal >70%) Hypoglycemia events: 1%, 1 events - Yesterday for breakfast had a sugar free applesauce, was delayed to eat lunch and started to feel low (59 mg/dL) Date range Overall AVG 12a-6a 6a-12p 12p-6p 6p-12a TIME IN RANGE 14 day (%) 7 day ABOVE 12 14 day 141 IN (70-180) 87 30 day BELOW 1 90 day Preventative Medications: On HEIDI/ARB: No On Statin: Yes ROS: Patient denies CP, SOB, RANDLE, blurred vision, dizziness or lightheadedness Patient denies symptoms of hypoglycemia (sweating, anxiety, palpitations, hunger, and tremor) Patient denies symptoms of hyperglycemia (polyuria, polydipsia, polyphagia) Patient denies potential medication adverse effects DIET/EXERCISE/SOCIAL Hx: At night, if needs a snack is eating rice cakes MEDICATIONS: Pill bottles are not present. Adherence: denies missed doses. Pharmacy: [facility] [address] [place] [phone] [facility] [phone] Rx coverage: Payor: [employer] / Plan: [employer] MEDICARE ADVANTAGE HMO / Product Type: HMO / Medications affordable? 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 ([facility]) Recurrent Major Depression in Partial Remission ([facility]) Functional Dyspepsia Gastroesophageal Reflux Disease Diabetic Gastroparesis ([facility]) ([facility]) Lichen Sclerosus Type 2 Diabetes Mellitus With Diabetic Peripheral Angiopathy Without Gangrene, With Long-Term Current Use of Insulin ([facility]) Obesity, Class I, Bmi 30-34.9 Leukocytosis Type 2 Diabetes Mellitus With Stage 3b Chronic Kidney Disease, With Long-Term Current Use of Insulin ([facility]) Hx of Bka, Left ([facility]) Urinary Retention Muscular Deconditioning Moderate Episode of Recurrent Major Depressive Disorder ([facility]) Hypertensive Ckd (Chronic Kidney Disease) PAST MEDICAL HISTORY No date: Anxiety No date: Arthritis No date: Depression No date: MARITZA exposure in utero 1986: Diabetes mellitus ([facility]) No date: Diabetic neuropathy ([facility]) No date: Gangrene ([facility]) 2009: Heart attack ([facility]) 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 [place] No date: Herniated disc No date: Hypertension No date: Muscular deconditioning 10/2019: PVD (peripheral vascular disease) ([facility]) No date: S/P BKA (below knee amputation) unilateral, left ([facility]) No date: Sleep apnea Comment: cpap No date: Snoring 11/2004 and 05/2005: Stroke ([facility]) Comment: x 2, right sided weakness Past medical history reviewed. ALLERGIES Allergen Reactions Meloxicam GI Upset Sulfa (Sulfonamide * Swelling Facial swelling, shortness of breath. Medication List Medication Directions Comments Action/Plan acyclovir (ZOVIRAX) 400 mg tablet Take 1 tablet by mouth two times a day. apixaban (ELIQUIS) 5 mg tab(s) Take 1 tablet by mouth two times a day. ascorbic acid, vitamin C, (VITAMIN C) 500 mg tablet Take 1,000 mg by mouth once daily. aspirin, enteric coated (ASPIRIN, ENTERIC COATED) 81 mg EC tablet Take 1 tablet by mouth once daily. atorvastatin (LIPITOR) 20 mg tablet Take 2 tablets by mouth once daily. B complex w-C no.20/folic acid (B COMPLEX WITH C 20-FOLIC ACID ORAL) Take 1 tablet by mouth once daily. bacitracin zinc 500 unit/gram ointment Apply to affected area twice daily. As directed for affected area till healed berberine/herbal complex no.18 (BERBERINE-HERBAL COMB NO.18 ORAL) Take 1,200 mg by mouth once daily. biotin 5,000 mcg ODT Take 1 tablet by mouth once daily. blood sugar diagnostic (BLOOD GLUCOSE TEST) test strip Test blood sugar(s) 3 to 4 times daily. Dx: Other DM Code E11.51 Insulin: Yes One touch or Accucheck strips or strips covered by her insurance. Blood-Glucose Meter,Continuous (DEXCOM G7 ENVELOPE SEALER) misc Use to check blood sugar at least four (4) times daily. Blood-Glucose Sensor (DEXCOM G7 SENSOR) jackson Apply new sensor every ten (10) days. carvedilol (COREG) 6.25 mg tablet Take 1 tablet by mouth two times a day with meals. cetirizine (ZYRTEC) 10 mg tablet Take 1 tablet by mouth once daily as needed. Cholecalciferol, Vitamin D3, 50 mcg (2,000 unit) cap Take 1 capsule by mouth once daily. ciclopirox (LOPROX) 0.77 % cream Apply to affected area two times a day. For 2 to 4 weeks till rash resolves. May treat recurrences for rash under abdominal pannus clobetasol (TEMOVATE) 0.05 % ointment Apply nightly to affected area for 8-12 weeks, then 1-3x weekly for maintenance cyanocobalamin, vitamin B-12, 5,000 mcg subl Dissolve under the tongue once daily. dulaglutide (TRULICITY) 3 mg/0.5 mL pen injector Inject 3 mg subcutaneously one time a week. ferrous sulfate 325 mg (65 mg iron) tablet Take 1 tablet by mouth every Sunday, Sunday, and Sunday. Patient not taking: Reported on 03/17/2024 furosemide (LASIX) 40 mg tablet Take 1 tablet by mouth once daily. gabapentin (NEURONTIN) 400 mg capsule Take 1 capsule by mouth two times a day AND 2 capsules daily at bedtime. Do all this for 90 days. Patient taking differently: Take 1 capsule by mouth in the afternoon AND 2 capsules daily at bedtime. Do all this for 90 days. GLUC PETIT/CHONDRO PETIT A/VIT C/MN (GLUCOSAMINE 1500 COMPLEX ORAL) Take 1 tablet by mouth once daily. hydrALAZINE (APRESOLINE) 50 mg tablet Take 1 tablet by mouth two times a day. Hold for SBP less than 120mm HG insulin glargine (LANTUS SOLOSTAR, BASAGLAR KWIKPEN) 100 unit/mL (3 mL) Inject 30 Units subcutaneously every morning. insulin lispro (HUMALOG KWIKPEN) 100 unit/mL Inject 10 units with breakfast and 4 units with evening meal as directed. Patient assistance medication. insulin needles, DISPOSABLE, (PEN NEEDLE) 31 gauge x 5/16 Use one needle per dose. 5 per day. Lancets Test blood sugar(s) 3 to 4 times daily. Dx: Other DM Code E11.51 Insulin: Yes Magnesium Oxide 500 mg tab Take 1 tablet by mouth once daily. For constipation nitroglycerin sublingual (NITROQUICK) 0.4 mg SL tablet Dissolve 1 tablet under the tongue as needed. As directed nystatin (MYCOSTATIN) powder Apply 1 application to affected area twice daily as needed. For prevention pantoprazole DR (PROTONIX) 40 mg tablet Take 1 tablet by mouth once daily. polyethylene glycol 3350 (MIRALAX) 17 gram/dose powder Take 17 g by mouth as directed. tamsulosin (FLOMAX) 0.4 mg Take 1 capsule by mouth once daily. Zinc 50 mg tab Take by mouth once daily. Exam: There were no vitals taken for this visit. Last 3 Encounter BP Readings: Date: BP: 04/03/2024 146/68 03/17/2024 108/58 06/13/2023 130/54 Wt: 91.6 kg (202 lb) BMI: 36.95 kg/(m^2) LABS: Reviewed Lab Results Component Value Date HBA1C 6.1 12/11/2023 HBA1C 5.7 12/07/2022 HBA1C 5.4 05/09/2021 HBA1C 6.3 06/09/2020 HBA1C 6.7 03/02/2020 CMP: Glucose 133 12/11/2023 BUN 37 12/11/2023 Creatinine 1.68 12/11/2023 Sodium (I-STAT) 142 12/11/2023 Potassium (I-STAT) 4.9 12/11/2023 Chloride 106 12/11/2023 CO2 25 12/11/2023 Protein, Total 6.8 12/11/2023 Albumin 4.1 12/11/2023 Calcium 11.0 12/11/2023 Alkaline Phosphatase 83 12/11/2023 Bilirubin, Total 0.2 12/11/2023 AST 19 12/11/2023 ALT 18 12/11/2023 eGFR 33 CrCl cannot be calculated (Unknown ideal weight.). Lab Results Component Value Date CHOL 157 12/11/2023 CHOL 145 09/20/2020 LDL 78 12/11/2023 LDL 71 09/20/2020 HDL 55 12/11/2023 HDL 51 09/20/2020 TG 119 12/11/2023 TG 114 09/20/2020 The ASCVD Risk score (Tiera EDGE, et al., 2019) failed to calculate for the following reasons: The patient has a prior TX or stroke diagnosis Albumin/Creat Ratio (mg/g) Date Value 12/11/2023 113 (H) PHARMACOTHERAPY ASSESSMENT/PLAN: 1. Type 2 diabetes mellitus with stage 3b chronic kidney disease, with long-term current use of insulin ([facility]) - ICD9: 250.40, 585.3, V58.67, ICD10: E11.22, N18.32, Z79.4 A1c goal < 8%; controlled (last A1c 6.1%); TIR improved and at goal; had 1 low BG when skipped meal; very interested in weight loss; will increase Trulicity and cut back on insulin; f/up in ~6 weeks INCREASE Trulicity to 4.5mg weekly Counseled on possible GI ADEs. Contact office if any sharp, stabbing abdominal pain If has any 1.5mg pens in addition to 3mg pens at home, can combine to take 2 pens weekly (for a total of 4.5mg weekly) to use up remaining pen supply. Otherwise will continue with 3mg weekly until receives shipment from [facility]. DECREASE Basaglar to 26 units daily (starting whenever she takes her first shot of the increased Trulicity dose) Advised to contact PharmD with any questions or concerns Educated not to skip meals Follow-up Patient is scheduled to see PCP team on 06/13. Patient to have f/up with PharmD team on 07/23. Patient verbalized understanding of instructions. Adelaide Ann PharmD, [facility] Primary Care Clinical Pharmacist Time spent: 30 mins documented in this encounter [facility] 06-04-2024 Note HNO ID: [id number] Author: ADELAIDE ANN RPh Service: ? Author Type: Pharmacist Type: Progress Notes Filed: 06/04/2024 15:13 Note Text: Primary Care Pharmacy Visit CC (Reason for Consult): Diabetes (E11.22, N18.32, Z79.4) Type 2 diabetes mellitus with stage 3b chronic kidney disease, with long-term current use of insulin (HCC) (primary encounter diagnosis) Goal: A1c < 8% Last Collaborating Provider Visit: 03/17/24 Miriam Thomas is a 69 year old female presenting for follow up visit telephone call. Patient consents to pharmacy collaborative practice agreement. Interim Events: 03/17: PCP referred to pharmacy. Referral comments = Work with PharmD to see if can help with med adjustment and help with weight loss 04/02: Trulicity switched to Mounjaro for better weight loss potential; patient later said Mounjaro was unaffordable so Trulicity increased to 3mg weekly 05/07: mealtime insulin shot added with dinner; atorvastatin increased HPI: Patient wants to continue to lose weight. Not feeling as bloated lately. Sugars have come down. Increased atorvastatin - no muscle aches or pains. Current DM Medications: Dulaglutide (Trulicity) 3mg weekly on Mondays Insulin glargine (Basaglar) 30 units daily QAM Insulin lispro (Humalog) 10 units with breakfast and 4 units with dinner Past DM medications: Metformin (GI upset) Glipizide Jardiance (yeast infxns) CGM Data Sensor usage: ? (Goal >70%) Hypoglycemia events: 1%, 1 events - Yesterday for breakfast had a sugar free applesauce, was delayed to eat lunch and started to feel low (59 mg/dL) Date range Overall AVG 12a-6a 6a-12p 12p-6p 6p-12a TIME IN RANGE 14 day (%) 7 day ABOVE 12 14 day 141 IN (70-180) 87 30 day BELOW 1 90 day Preventative Medications: On HEIDI/ARB: No On Statin: Yes ROS: Patient denies CP, SOB, RANDLE, blurred vision, dizziness or lightheadedness Patient denies symptoms of hypoglycemia (sweating, anxiety, palpitations, hunger, and tremor) Patient denies symptoms of hyperglycemia (polyuria, polydipsia, polyphagia) Patient denies potential medication adverse effects DIET/EXERCISE/SOCIAL Hx: At night, if needs a snack is eating rice cakes MEDICATIONS: Pill bottles are not present. Adherence: denies missed doses. Pharmacy: [facility] [address] [place] [phone] [facility] [phone] [id number] Rx coverage: Payor: [employer] / Plan: [employer]ARE ADVANTAGE HMO / Product Type: HMO / Medications affordable? 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 ([facility]) Recurrent Major Depression in Partial Remission ([facility]) Functional Dyspepsia Gastroesophageal Reflux Disease Diabetic Gastroparesis (Hcc) ([facility]) Lichen Sclerosus Type 2 Diabetes Mellitus With Diabetic Peripheral Angiopathy Without Gangrene, With Long-Term Current Use of Insulin ([facility]) Obesity, Class I, Bmi 30-34.9 Leukocytosis Type 2 Diabetes Mellitus With Stage 3b Chronic Kidney Disease, With Long-Term Current Use of Insulin ([facility]) Hx of Bka, Left ([facility]) Urinary Retention Muscular Deconditioning Moderate Episode of Recurrent Major Depressive Disorder ([facility]) Hypertensive Ckd (Chronic Kidney Disease) PAST MEDICAL HISTORY No date: Anxiety No date: Arthritis No date: Depression No date: MARITZA exposure in utero 1987: Diabetes mellitus ([facility]) No date: Diabetic neuropathy ([facility]) No date: Gangrene ([facility]) 2009: Heart attack ([facility]) 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 ALLERGIES Allergen Reactions Meloxicam GI Upset Sulfa (Sulfonamide * Swelling Facial swelling, shortness of breath. Medication List Medication Directions Comments Action/Plan acyclovir (ZOVIRAX) 400 mg tablet Take 1 tablet by mouth two times a day. apixaban (ELIQUIS) 5 mg tab(s) Take 1 tablet by mouth two times a day. ascorbic acid, vitamin C, (VITAMIN C) 500 mg tablet Take 1,000 mg by mouth once daily. aspirin, enteric coated (ASPIRIN, ENTERIC COATED) 81 mg EC tablet Take 1 tablet by mouth once daily. atorvastatin (LIPITOR) 20 mg tablet Take 2 tablets by mouth once daily. B com (more content not included)... [facility] 05-27-2024 History of Present illness Narrative PCSW Progress Note - Value Based Care Provider Action / FYI PCP Action No action needed at this time Date of Service: 05/27/2024 Patient identified by name/: Yes- via Telephone Referral Source: Referral Patient Outreach: Follow Up Mode of Outreach: Phone Call [phone] Response Time: Contact made Patient Needs: Food Insecurity-Additional options Other: Finance Assessment: Social supports Existing community support Action Taken: Provide Patient Resources Education Is Patient ready for discharge? Yes Social Barrier resolution or patient discharge reason: Patient self-managing with resources given Narrative: VBSW spoke with Pt and stated reason for follow up. Pt stated she did look at the email and they have used a couple of the resources. Pt used the [employer] faisal this week and it worked out well, talked with office and trying to get spouse to see [place] doctor so they can get additional support. Pt stated she had not gone to the pop-up food pantries. [facility] provided upcoming locations; [facility] at [facility] on 06/10 from 08-01 and [facility] on 06/13 from 08-01. Pt stated appreciation. VBSW encouraged her to use the email link because it will show the upcoming pantries and possibly other food opportunities. Pt stated much appreciation for the follow up and provided resources. Pt will follow up with this director underwriter sales as needed. Interventions: Assessment Discharge from PCSW panel Education Empowering/Coaching WENDY Suárez May 27, 2024 2:30 PM documented in this encounter [facility] 05-14-2024 History of Present illness Narrative PCSW Progress Note - Value Based Care Provider Action / FYI PCP Action No action needed at this time Date of Service: 05/14/2024 Patient identified by name/: Yes- via Telephone Referral Source: Referral Patient Outreach: Follow Up Mode of Outreach: Phone Call Response Time: VBSW will contact Pt in 7-14 days Narrative: SW spoke with Pt and she did receive and review the emailed information from 05/01/24. Pt was not able to talk and was tearful because she and her are taking their 15 yo dog today to put her to be euthanized due to kidney failure. Pt stated the mediations are so expensive and her dog is no longer responding to the treatment. Pt asked to be contacted another time to discuss. Interventions: Listening and responding with WENDY Ma May 14, 2024 9:57 AM documented in this encounter [facility] 05-07-2024 History of Present illness Narrative Primary Care Pharmacy Visit CC (Reason for Consult): Diabetes (E11.22, N18.32, Z79.4) Type 2 diabetes mellitus with stage 3b chronic kidney disease, with long-term current use of insulin (HCC) (primary encounter diagnosis) Goal: A1c < 8% Last Collaborating Provider Visit: 03/17/24 Miriam Thomas is a 69 year old female presenting for follow up visit virtually. Patient consents to pharmacy collaborative practice agreement. Interim Events: 03/17: PCP referred to pharmacy. Referral comments = Work with PharmD to see if can help with med adjustment and help with weight loss 04/02: Trulicity switched to Mounjaro for better weight loss potential; patient later said Mounjaro was unaffordable so Trulicity increased to 3mg weekly HPI: Was able to get Trulicity 3mg. Has had multiple doses (can't recall how many). Denies any ADRs or feeling differently. Not feeling as hungry, possibly is eating less. Gets through [facility]. Has 3 full boxes of the 3mg pens. Has noticed her Bgs really start to spike in the evening after dinner. Current DM Medications: Dulaglutide (Trulicity) 3mg weekly on Mondays Insulin glargine (Basaglar) 30 units daily QAM Insulin lispro (Humalog) 4 units + SSI TIDAC (currently taking 10 units with breakfast only; takes regardless of meals, even with skips eating) Past DM medications: Metformin (GI upset) Glipizide Jardiance (yeast infxns) CGM Data Date range Overall AVG 12a-6a 6a-12p 12p-6p 6p-12a TIME IN RANGE 14 day (%) 7 day ABOVE 36 14 day 167 IN (70-180) 62 30 day BELOW 2 90 day *Not having sx of lows. Sometimes gets alerts when in bed. Usually happens before a meal. Has double checked with fingerstick (one time CGM read 52, her fingerstick was in the 70s). Doesn't recall seeing any fingerstick reading <70 since last visit. Preventative Medications: On HEIDI/ARB: No On Statin: Yes ROS: Patient denies CP, SOB, RANDLE, blurred vision, dizziness or lightheadedness Patient denies symptoms of hypoglycemia (sweating, anxiety, palpitations, hunger, and tremor) Patient denies symptoms of hyperglycemia (polyuria, polydipsia, polyphagia) Patient denies potential medication adverse effects DIET/EXERCISE/SOCIAL Hx: Admits biggest downfall is eating late in the evening (chips, Fritos); she is trying to cut up peppers and eating those more. Also cheddar rice cakes Largest meal of day is lunch Breakfast: ~8:30 AM; eggs with veggies OR yogurt; often skips Lunch: ~2 PM; today will have pork tacos and cucumber salad Exercise: in wheelchair MEDICATIONS: Pill bottles are not present. Adherence: denies missed doses. Pharmacy: [facility] [address] [place] [phone] [facility] [phone] 1812 Rx coverage: Payor: [facility] [employer] / Plan: [facility] [facility] MEDICARE ADVANTAGE HMO / Product Type: HMO / Medications affordable? 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 ([facility]) Recurrent Major Depression in Partial Remission ([facility]) Functional Dyspepsia Gastroesophageal Reflux Disease Diabetic Gastroparesis ([facility]) ([facility]) Lichen Sclerosus Type 2 Diabetes Mellitus With Diabetic Peripheral Angiopathy Without Gangrene, With Long-Term Current Use of Insulin ([facility]) Obesity, Class I, Bmi 30-34.9 Leukocytosis Type 2 Diabetes Mellitus With Stage 3b Chronic Kidney Disease, With Long-Term Current Use of Insulin ([facility]) Hx of Bka, Left ([facility]) Urinary Retention Muscular Deconditioning Moderate Episode of Recurrent Major Depressive Disorder ([facility]) Hypertensive Ckd (Chronic Kidney Disease) PAST MEDICAL HISTORY No date: Anxiety No date: Arthritis No date: Depression No date: MARITZA exposure in utero 1986: Diabetes mellitus ([facility]) No date: Diabetic neuropathy ([facility]) No date: Gangrene ([facility]) 2009: Heart attack ([facility]) 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 Adalberto Power [place] No date: Herniated disc No date: Hypertension No date: Muscular deconditioning 10/2019: PVD (peripheral vascular disease) ([facility]) No date: S/P BKA (below knee amputation) unilateral, left ([facility]) No date: Sleep apnea Comment: cpap No date: Snoring 11/2004 and 05/2005: Stroke ([facility]) Comment: x 2, right sided weakness Past medical history reviewed. ALLERGIES Allergen Reactions Meloxicam GI Upset Sulfa (Sulfonamide * Swelling Facial swelling, shortness of breath. Medication List Medication Directions Comments Action/Plan acyclovir (ZOVIRAX) 400 mg tablet Take 1 tablet by mouth two times a day. Taking BID apixaban (ELIQUIS) 5 mg tab(s) Take 1 tablet by mouth two times a day. Taking BID; thinks was started on this after her amputation Advised to discuss with vascular if needs to continue ascorbic acid, vitamin C, (VITAMIN C) 500 mg tablet Take 1,000 mg by mouth once daily. aspirin, enteric coated (ASPIRIN, ENTERIC COATED) 81 mg EC tablet Take 1 tablet by mouth once daily. Taking daily atorvastatin (LIPITOR) 20 mg tablet Take 1 tablet by mouth once daily. Taking daily QPM; thinks she was on a higher dose at one time; thinks she had joint pain with higher dose Will increase dose, f/up to see if joint pain returns B complex w-C no.20/folic acid (B COMPLEX WITH C 20-FOLIC ACID ORAL) Take 1 tablet by mouth once daily. bacitracin zinc 500 unit/gram ointment Apply to affected area twice daily. As directed for affected area till healed berberine/herbal complex no.18 (BERBERINE-HERBAL COMB NO.18 ORAL) Take 1,200 mg by mouth once daily. biotin 5,000 mcg ODT Take 1 tablet by mouth once daily. blood sugar diagnostic (BLOOD GLUCOSE TEST) test strip Test blood sugar(s) 3 to 4 times daily. Dx: Other DM Code E11.51 Insulin: Yes One touch or Accucheck strips or strips covered by her insurance. Blood-Glucose Meter,Continuous (DEXCOM G7 ENVELOPE SEALER) misc Use to check blood sugar at least four (4) times daily. Blood-Glucose Sensor (DEXCOM G7 SENSOR) jackson Apply new sensor every ten (10) days. carvedilol (COREG) 6.25 mg tablet Take 1 tablet by mouth two times a day with meals. Taking BID cetirizine (ZYRTEC) 10 mg tablet Take 1 tablet by mouth once daily as needed. Cholecalciferol, Vitamin D3, 50 mcg (2,000 unit) cap Take 1 capsule by mouth once daily. ciclopirox (LOPROX) 0.77 % cream Apply to affected area two times a day. For 2 to 4 weeks till rash resolves. May treat recurrences for rash under abdominal pannus clobetasol (TEMOVATE) 0.05 % ointment Apply nightly to affected area for 8-12 weeks, then 1-3x weekly for maintenance cyanocobalamin, vitamin B-12, 5,000 mcg subl Dissolve under the tongue once daily. dulaglutide (TRULICITY) 3 mg/0.5 mL pen injector Inject 3 mg subcutaneously one time a week. taking escitalopram oxalate (LEXAPRO) 20 mg tablet Take 1 tablet by mouth once daily. Patient not taking: Reported on 03/17/2024 Stopped taking this spring Removed from med list ferrous sulfate 325 mg (65 mg iron) tablet Take 1 tablet by mouth every Sunday, Sunday, and Sunday. Patient not taking: Reported on 03/17/2024 furosemide (LASIX) 40 mg tablet Take 1 tablet by mouth once daily. Taking daily for fluid retention gabapentin (NEURONTIN) 400 mg capsule Take 1 capsule by mouth two times a day AND 2 capsules daily at bedtime. Do all this for 90 days. Taking 2 caps at night, will occasionally take 1 in the afternoon if needed Updated med list GLUC PETIT/CHONDRO PETIT A/VIT C/MN (GLUCOSAMINE 1500 COMPLEX ORAL) Take 1 tablet by mouth once daily. hydrALAZINE (APRESOLINE) 50 mg tablet Take 1 tablet by mouth two times a day. Hold for SBP less than 120mm HG Taking BID; admits she is not checking BP; denies any light-headedness or dizziness Advised to start home BP readings insulin glargine (LANTUS SOLOSTAR, BASAGLAR KWIKPEN) 100 unit/mL (3 mL) Inject 30 Units subcutaneously every morning. Taking, see above insulin lispro (HUMALOG KWIKPEN) 100 unit/mL Inject 4 Units subcutaneously three times daily before meals. Utilize per sliding scale, max of 20 units per day. Pt assistance med Patient taking differently: Inject 4 Units subcutaneously three times a day before meals. Patient took 10 units this am before breakfast Utilize per sliding scale, max of 20 units per day. Pt assistance med Taking, see above insulin needles, DISPOSABLE, (PEN NEEDLE) 31 gauge x 5/16 Use one needle per dose. 5 per day. supplies Lancets Test blood sugar(s) 3 to 4 times daily. Dx: Other DM Code E11.51 Insulin: Yes supplies Magnesium Oxide 500 mg tab Take 1 tablet by mouth once daily. For constipation nitroglycerin sublingual (NITROQUICK) 0.4 mg SL tablet Dissolve 1 tablet under the tongue as needed. As directed Has for PRN use nystatin (MYCOSTATIN) powder Apply 1 application to affected area twice daily as needed. For prevention pantoprazole DR (PROTONIX) 40 mg tablet Take 1 tablet by mouth once daily. Taking daily; was started on it during rehab, doesn't recall having issues with GERD Encouraged discussing with PCP to see if still needed. Cautioned on risk of rebound reflux with sudden discontinuation polyethylene glycol 3350 (MIRALAX) 17 gram/dose powder Take 17 g by mouth as directed. tamsulosin (FLOMAX) 0.4 mg Take 1 capsule by mouth once daily. Taking QAM; takes for urinary retention; still having issues; used to see urology at [facility]; denies issues with dizziness or light-headedness Advised to discuss with PCP to see if still getting benefit from med Zinc 50 mg tab Take by mouth once daily. Rx meds not listed in EPIC: - Tramadol 50mg tabs - taking PRN (doesn't think she has used any this year), has for leg pain because she overuses it due to amputation; current bottle was filled 09/17/23, still has 14 pills remaining Exam: There were no vitals taken for this visit. Last 3 Encounter BP Readings: Date: BP: 04/03/2024 146/68 03/17/2024 108/58 06/13/2023 130/54 Wt: 91.6 kg (202 lb) BMI: 36.95 kg/(m^2) LABS: Reviewed Lab Results Component Value Date HBA1C 6.1 12/11/2023 HBA1C 5.7 12/07/2022 HBA1C 5.4 05/09/2021 HBA1C 6.3 06/09/2020 HBA1C 6.7 03/02/2020 CMP: Glucose 133 12/11/2023 BUN 37 12/11/2023 Creatinine 1.68 12/11/2023 Sodium (I-STAT) 142 12/11/2023 Potassium (I-STAT) 4.9 12/11/2023 Chloride 106 12/11/2023 CO2 25 12/11/2023 Protein, Total 6.8 12/11/2023 Albumin 4.1 12/11/2023 Calcium 11.0 12/11/2023 Alkaline Phosphatase 83 12/11/2023 Bilirubin, Total 0.2 12/11/2023 AST 19 12/11/2023 ALT 18 12/11/2023 eGFR 33 Lab Results Component Value Date CHOL 157 12/11/2023 CHOL 145 09/20/2020 LDL 78 12/11/2023 LDL 71 09/20/2020 HDL 55 12/11/2023 HDL 51 09/20/2020 TG 119 12/11/2023 TG 114 09/20/2020 The ASCVD Risk score (Tiera EDGE, et al., 2019) failed to calculate for the following reasons: The patient has a prior TX or stroke diagnosis Albumin/Creat Ratio (mg/g) Date Value 12/11/2023 113 (H) PHARMACOTHERAPY ASSESSMENT/PLAN: 1. Type 2 diabetes mellitus with stage 3b chronic kidney disease, with long-term current use of insulin (HCC) - ICD9: 250.40, 585.3, V58.67, ICD10: E11.22, N18.32, Z79.4 (primary diagnosis) A1c goal < 8%; controlled (last A1c 6.1%); TIR not at goal; appears to be having PPG spikes in evening so will add mealtime insulin shot; tolerating increased trulicity well - has ~3 mo supply remaining of 3mg pens so will plan to increase further to 4.5mg in several months INITIATE Humalog 4 units with dinner (continue Humalog 10 units with breakfast) Counseled to skip insulin if skips a meal Continue other medications INCREASE atorvastatin to 40mg daily --> advised to let PharmD know if any muscle aches/pains or other ADRs (will only update med sig for now; will send new script to pharmacy for 40mg tab at next visit as long as tolerating dose adjustment well) CMP and lipid panel in 1-3 mo 2. Medication management - ICD9: V58.69, ICD10: Z79.899 Reviewed all medications, indications, dosing, frequency, administration with patient. Medication list updated as described above. Advised to start home BP monitoring Encouraged to discuss tamsulosin and pantoprazole with PCP to see if still indicated Suggested discussing Eliquis use with vascular surgeon to see if still indicated Reviewed med list for kidney function - doses are appropriate; pt with CKD + microalbuminuria, not on an HEIDI/ARB or SGLT2i inhibitor (per chart, did try SGLT2i >5 years ago and didn't tolerate due to increased frequency and yeast infxn) --> will recommend nephro referral to PCP Did not have time to review vitamins/supplements --> will plan to do at f/up visit Follow-up Patient is scheduled to see PCP team on 06/13. Patient to have f/up with PharmD team on 06/04. Patient verbalized understanding of instructions. Adelaide Ann PharmD, [facility] Primary Care Clinical Pharmacist Time spent: 60 mins documented in this encounter [facility] 05-02-2024 Telephone encounter Note Prescription Refill Information The patient has been identified by name and date of : Yes Caregiver verified no other encounters exist for this prescription request: Yes Caregiver confirmed with patient/requestor that no other refills are due, in the near future, with this provider at this time: Yes The last office visit in the department: 03/17/24 Does the patient have a future office visit with this provider/department: Yes 06/13/24 Requested Prescriptions Pending Prescriptions Disp Refills gabapentin (NEURONTIN) 400 mg capsule 360 capsule 0 Sig: Take 1 capsule by mouth two times a day AND 2 capsules daily at bedtime. Do all this for 90 days. Abimbola Dewey LPN May 02, 2024 3:05 PM [facility] 05-02-2024 Miscellaneous Notes Prescription Refill Information The patient has been identified by name and date of : Yes Caregiver verified no other encounters exist for this prescription request: Yes Caregiver confirmed with patient/requestor that no other refills are due, in the near future, with this provider at this time: Yes The last office visit in the department: 03/17/24 Does the patient have a future office visit with this provider/department: Yes 06/13/24 Requested Prescriptions Pending Prescriptions Disp Refills gabapentin (NEURONTIN) 400 mg capsule 360 capsule 0 Sig: Take 1 capsule by mouth two times a day AND 2 capsules daily at bedtime. Do all this for 90 days. Abimbola Dweey LPN May 02, 2024 3:05 PM documented in this encounter [facility] 05-01-2024 History of Present illness Narrative PCSW Progress Note - Value Based Care Provider Action / FYI PCP Action No action needed at this time Date of Service: 05/01/2024 Patient identified by name/: Yes- via Telephone Referral Source: Referral Patient Outreach: Initial Mode of Outreach: Phone Call Response Time: Contact made Patient Needs: Transportation - additional option should car not be operable Food Insecurity-Cost of food Med Affordability- MED AFORDABILITY: Unable to afford Copay Assessment: Payor Social supports status (including History of Combat Experience): Edezijpjke-whadshcoi-Xndzqlq Patient functional ability Cognitive status Existing community support Action Taken: Provide Patient Resources Education Is Patient ready for discharge? No Follow-up Plan [next steps] High [7-14 days] Narrative: VBSW received phone encounter from Kaitlin Nelson RNoil plant operator referral: Patient asks for assistance with 1.potentially applying for SS Disability (isability coverage was stopped from employer in March 2024) 2.concerns about future transportation challenges (car is very old)- discussed transportation options possibly offered by Prudencio 3. Currently in the donga hole and concerned about overall financial well being through the end of the year. VBSW reviewed Pt chart VBSW introduced self to Pt and stated reason for call. Pt had spouse, Ed, listening. Pt worked for [employer] and had a stroke and has been collecting disability through them since she was 48 yo and now she is 69 yo and it stopped when she was 69. Pt has been collecting SSI during that time but it was adjusted. Since that stopped they lost $1000/month of income. The couple have a car but it is 18 years old and would not be able to afford another car. VBSW explored some options to assist. Some programs they did not qualify for due to combined income. VBSW emailed resources Eliquis - https://www.bmspaf.org/#/ Transportation - https://www.Biogenic Reagents/adminis tration/transportation-assistance and https://www.Kaznacheywm.org/get-help/tra nsportation/[place]-subsidized.html #:~:text=Call%26088%2D264%7U1855% 20Monday,Participation%20requires %20proof%20of%20eligibility. [facility] - https://dvs.[place].gov/what-we-do/f ind-a-cvso/[facility] Service+Office Opportunities for [place] with Disabilities - https://ood.[place].gov/information- for-individuals Lyst Faisal - https://THE FASHION/ [employer] - https://www.Elastera.Looklet rg/btr-bevj-ltijkfxx SSI v SSDI - https://www.ABC Live.gov/redbook/eng/o verview-disability.htm? and https://www.[place].gov/social-securi ty-disability The couple stated much appreciation for the call, time and information. VBSW will follow up in a couple weeks but remain available should Pt/spouse have questions. VBSW placed name on Care Teams tab. Interventions: Assessment Education Empowering/Coaching Listening with WENDY Ma May 01, 2024 12:05 PM documented in this encounter [facility] 04-25-2024 Telephone encounter Note Patient is scheduled for 05-01@915am. I called and talked with the patient. Serina Nunes [facility] 04-25-2024 Miscellaneous Notes Patient is scheduled for 8@915am. I called and talked with the patient. Serina Nunes Dr Roger wants patient seen at the wound center next week Karuna Mims ----- Message from Bindu Medina sent at 04/25/2024 12:16 PM EDT ----- Regarding: Orthopedics / Leti Roger (DPM) Foot: Wound / Unable To Schedule Dx Patient has been identified by name and Date of (Y/N): y Patient: Miriam Thomas Date of : 1955 Previous Provider Seen: Kelly Body Part(s) Identified: Right foot Diagnosis/Reason For Visit: pressure sores/wounds Reason for the call/escalation: patient needs to be seen by Kelly for right foot pressure sores. Per scheduling tool appointment center cannot schedule. If reason for call/escalation is discharge from ED/ER or Hospital, which facility was the patient seen at: na Was an appointment scheduled (Y/N): no Person calling if other than patient: patient Return call to if other than patient: patient Best contact number: [phone] Thank you, Bindu Medina April 25, 2024 12:17 PM documented in this encounter [facility] 04-25-[address] Roger wants patient seen at the wound center next week Karuna Mims [facility] 04-25-2024 Telephone encounter Note ----- Message from Bindu Medina sent at 04/25/2024 12:16 PM EDT ----- Regarding: Orthopedics / Leti Roger (DPM) Foot: Wound / Unable To Schedule Dx Patient has been identified by name and Date of (Y/N): y Patient: Miriam Thomas Date of : 1955 Previous Provider Seen: Kishman Body Part(s) Identified: Right foot Diagnosis/Reason For Visit: pressure sores/wounds Reason for the call/escalation: patient needs to be seen by Kelly for right foot pressure sores. Per scheduling tool appointment center cannot schedule. If reason for call/escalation is discharge from ED/ER or Hospital, which facility was the patient seen at: na Was an appointment scheduled (Y/N): no Person calling if other than patient: patient Return call to if other than patient: patient Best contact number: [phone] Thank you, Bindu Medina April 25, 2024 12:17 PM [facility] 04-03-2024 Instructions Anju Ledezma APRN.BG - 04/03/2024 10:09 AM EDT Information on subconjunctival hemorrhage given from up to date. Would recommend recheck tomorrow with net software developer due to h/o eliquis use Go to ER for any sudden loss of vision or severe vision changes. documented in this encounter [facility] 04-03-2024 History of Present illness Narrative Images from the original note were not included. Subjective The history is provided by the patient and the spouse. No paleontology teacher was used. HPI Miriam Thomas is a 69 year old female who presents today for CC of red eye for 2 days. She denies any foreign body or sensation, photophobia. She does state that she has clear drainage. She denies any pain in eye, loss or change in vision. No loss of peripheral vision or sensation of curtain closing. She is on elequis BP 146/68 Pulse 78 Temp 36.6 C (97.8 F) Resp 16 SpO2 95% Eye Exam 20/25 OU Social History Tobacco Use Smoking status: Never Smokeless tobacco: Never Vaping Use Vaping Use: Never used Substance Use Topics Alcohol use: Yes Comment: Rarely Drug use: No PAST MEDICAL HISTORY Diagnosis Date Anxiety Arthritis Depression MARITZA exposure in utero Diabetes mellitus (HCC) 1986 Diabetic neuropathy (HCC) Gangrene ([facility]) Heart attack ([facility]) [address] Glover [place] Herniated disc Hypertension Muscular deconditioning PVD (peripheral vascular disease) ([facility]) 10/2019 S/P BKA (below knee amputation) unilateral, left ([facility]) Sleep apnea cpap Snoring Stroke ([facility]) 11/2004 and 05/2005 x 2, right sided weakness I have confirmed and edited as necessary, the [facility] Review of Systems Constitutional: Negative for chills and fever. HENT: Negative for ear pain and sore throat. Eyes: Positive for redness. Negative for blurred vision, double vision, photophobia, pain and discharge. Respiratory: Negative for cough. Objective Physical Exam Vitals and nursing note reviewed. Eyes: General: Lids are normal. Lids are everted, no foreign bodies appreciated. Vision grossly intact. No visual field deficit. Right eye: No foreign body or discharge. Left eye: No foreign body or discharge. Extraocular Movements: Extraocular movements intact. Conjunctiva/sclera: Left eye: Hemorrhage present. Pupils: Pupils are equal, round, and reactive to light. Funduscopic exam: Right eye: Red reflex present. Left eye: Red reflex present. Slit lamp exam: Right eye: No photophobia. Left eye: No photophobia. Pulmonary: Effort: Pulmonary effort is normal. Skin: General: Skin is warm and dry. Neurological: Mental Status: She is alert and oriented to person, place, and time. Psychiatric: Mood and Affect: Affect normal. ASSESSMENT/PLAN: 1. Red eye - ICD9: 379.93, ICD10: H57.89 Appears to be subconjunctival hemorrhage Discussed self limiting, no treatment Due to being on eliquis, recommend to call net software developer tomorrow for evaluation When to seek a higher level of care discussed. Diagnosis and treatment plan were discussed and questions were answered to the patient's satisfaction. Pt acknowledged understanding of concepts and follow up plan. Specific signs and symptoms that would indicate the need for higher level of care were discussed in detail warranting prompt ER evaluation. Anju Ledezma APRN.BG documented in this encounter [facility] 04-02-2024 Telephone encounter Note Patient currently taking Trulicity 1.5mg weekly (has been getting through [facility]). Would like to switch patient to Mounjaro 5mg weekly to assist with BG control and weight loss efforts. If not affordable, plan will be to resume Trulicity at a 3mg dose Mounjaro script pended for signature. Requested Prescriptions Pending Prescriptions Disp Refills tirzepatide (MOUNJARO) 5 mg/0.5 mL pen injector 2 mL 3 Sig: Inject 5 mg subcutaneously one time a week. Adelaide Ann RPh [facility] Work Phone: 04-02-2024 Miscellaneous Notes Patient currently taking Trulicity 1.5mg weekly (has been getting through [facility]). Would like to switch patient to Mounjaro 5mg weekly to assist with BG control and weight loss efforts. If not affordable, plan will be to resume Trulicity at a 3mg dose Mounjaro script pended for signature. Requested Prescriptions Pending Prescriptions Disp Refills tirzepatide (MOUNJARO) 5 mg/0.5 mL pen injector 2 mL 3 Sig: Inject 5 mg subcutaneously one time a week. Adelaide Ann RPh documented in this encounter [facility] 04-02-2024 History of Present illness Narrative Primary Care Pharmacy Visit CC (Reason for Consult): Diabetes (E11.22, N18.32, Z79.4) Type 2 diabetes mellitus with stage 3b chronic kidney disease, with long-term current use of insulin (HCC) (primary encounter diagnosis) Goal: A1c < 8% Last Collaborating Provider Visit: 03/17/24 Miriam Thomas is a 69 year old female presenting for initial visit: This initial consult was conducted telephone call with the patient where the consult agreement was explained. The patient may decline or cancel the agreement at any time. After consideration, the patient consented to the pharmacy consult agreement and agreed to allow medications be collaboratively managed by a pharmacist. Interim Events: 03/17: PCP referred to pharmacy. Referral comments = Work with PharmD to see if can help with med adjustment and help with weight loss HPI: Patient very interested in weight loss. States when she was younger, she was 135 lbs. After 7 pregnancies and 3 children she went up to 160s. Over the past 5 years, her weight gradually increased. Had some issues with legs and feet, unable to walk as well as she used to. [place] she had blockages in her legs which caused the cramping. Later had a blister on left foot. Had donated artery and stent placed in leg, which failed 3 mo later. Had another sore develop, became gangrenous and had all toes removed on left foot. Said incision never totally healed. Resulted in infection, has BKA on left side. Admits she hasn't quit gotten to walking yet. Had first prosthetic leg, it left a sore. Leg never fit right, was painful. Has since been in a wheel chair for 4-5 years. Just got a new leg ~2 months ago. It fits better, can walk with cane and walker. Not ready to walk outside yet, only walks in the house. Knows weight gain related to inactivity. Has cut back a lot on food. Frustrated she is eating so little but still gaining weight. Her belly really bothers her, she feels like she is 5 months . She cannot put on capris or pants by herself, needs assistance. She would like to lose weight to have more independence. Has Dexcom G7, finds it is not as accurate as fingerstick. Will have lows in the middle of the night on the sensor and finger stick reading will be higher. Sensor right now reading 122, fingerstick is 145 mg/dL. She is desperate for weight loss. Recently spent >$600 on supplements (from Dr. Whitfield). Only on Social Security, money is tight. Current DM Medications: Dulaglutide (Trulicity) 1.5mg weekly on Mondays Insulin glargine (Basaglar) 30 units daily Insulin lispro (Humalog) 4 units + SSI TIDAC (currently taking 10 units with breakfast, not taking with evening meal; notices PPG elevations after dinner usually go up to 170 or 180, occasionally will reach 200 but not often) Past DM medications: Metformin (GI upset) Glipizide Jardiance (yeast infxns) CGM Data Date range Overall AVG 12a-6a 6a-12p 12p-6p 6p-12a TIME IN RANGE 14 day (%) 7 day ABOVE 25 14 day 160 IN (80-180) 74 30 day BELOW 1 90 day Will get occasionally get low BG readings with sensor at night in bed, not low per fingerstick. Preventative Medications: On HEIDI/ARB: No On Statin: Yes DIET/EXERCISE/SOCIAL Hx: Goal is 30 carbs/meal, only eats 2 meals/day but will snack Breakfast: eggs! Egg salad with a little mayonnaise, uses Roxie Cameron low calorie bread (2 slices = 11 carbs each); sometimes will do a breakfast bowl or breakfast sandwich Late lunch (~3:30-5 PM): yesterday ate 1 soft taco, small tostada; 30 mins later had a kwabena cheeseburger (was out of the house) Bedtime: will eat a protein or chicken salad if sugar is <100 mg/dL Snacks: pumpkin seeds, sunflower seeds, vegetables; rarely will have chips (reads carbs and only eats 1 serving size) Beverages: flavored water Exercise: BKA, in wheelchair; trying to increase activity by getting in and out of car; occasionally does chair exercises MEDICATIONS: Pill bottles are not present. Adherence: denies missed doses. Pharmacy: [facility] [address] [place] [phone] [facility] [phone] 181 Rx coverage: Payor: [facility] [facility] / Plan: [facility] MEDICARE ADVANTAGE HMO / Product Type: HMO / Medications affordable? 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 ([facility]) Recurrent Major Depression in Partial Remission ([facility]) Functional Dyspepsia Gastroesophageal Reflux Disease Diabetic Gastroparesis (Hcc) ([facility]) Lichen Sclerosus Type 2 Diabetes Mellitus With Diabetic Peripheral Angiopathy Without Gangrene, With Long-Term Current Use of Insulin ([facility]) Obesity, Class I, Bmi 30-34.9 Leukocytosis Type 2 Diabetes Mellitus With Stage 3b Chronic Kidney Disease, With Long-Term Current Use of Insulin ([facility]) Hx of Bka, Left ([facility]) Urinary Retention Muscular Deconditioning Moderate Episode of Recurrent Major Depressive Disorder ([facility]) Hypertensive Ckd (Chronic Kidney Disease) PAST MEDICAL HISTORY Diagnosis Date Anxiety Arthritis Depression MARITZA exposure in utero Diabetes mellitus ([facility]) 1986 Diabetic neuropathy ([facility]) Gangrene ([facility]) Heart attack ([facility]) [address] Adalberto Power [place] Herniated disc Hypertension Muscular deconditioning PVD (peripheral vascular disease) ([facility]) 10/2019 S/P BKA (below knee amputation) unilateral, left ([facility]) Sleep apnea cpap Snoring Stroke ([facility]) 11/2004 and 05/2005 x 2, right sided weakness Past medical history reviewed. ALLERGIES Allergen Reactions Meloxicam GI Upset Sulfa (Sulfonamide * Swelling Facial swelling, shortness of breath. Medication List Medication Directions Comments Action/Plan acyclovir (ZOVIRAX) 400 mg tablet Take 1 tablet by mouth two times a day. apixaban (ELIQUIS) 5 mg tab(s) Take 1 tablet by mouth two times a day. ascorbic acid, vitamin C, (VITAMIN C) 500 mg tablet Take 1,000 mg by mouth once daily. aspirin, enteric coated (ASPIRIN, ENTERIC COATED) 81 mg EC tablet Take 1 tablet by mouth once daily. atorvastatin (LIPITOR) 20 mg tablet Take 1 tablet by mouth once daily. Patient not taking: Reported on 03/17/2024 B complex w-C no.20/folic acid (B COMPLEX WITH C 20-FOLIC ACID ORAL) Take 1 tablet by mouth once daily. bacitracin zinc 500 unit/gram ointment Apply to affected area twice daily. As directed for affected area till healed Patient not taking: Reported on 03/17/2024 berberine/herbal complex no.18 (BERBERINE-HERBAL COMB NO.18 ORAL) Take 1,200 mg by mouth once daily. biotin 5,000 mcg ODT Take 1 tablet by mouth once daily. blood sugar diagnostic (BLOOD GLUCOSE TEST) test strip Test blood sugar(s) 3 to 4 times daily. Dx: Other DM Code E11.51 Insulin: Yes One touch or Accucheck strips or strips covered by her insurance. Blood-Glucose Meter,Continuous (DEXCOM G7 ENVELOPE SEALER) mis Use to check blood sugar at least four (4) times daily. Blood-Glucose Sensor (DEXCOM G7 SENSOR) jackson Apply new sensor every ten (10) days. carvedilol (COREG) 6.25 mg tablet Take 1 tablet by mouth two times a day with meals. cetirizine (ZYRTEC) 10 mg tablet Take 1 tablet by mouth once daily as needed. Cholecalciferol, Vitamin D3, 50 mcg (2,000 unit) cap Take 1 capsule by mouth once daily. ciclopirox (LOPROX) 0.77 % cream Apply to affected area two times a day. For 2 to 4 weeks till rash resolves. May treat recurrences for rash under abdominal pannus clobetasol (TEMOVATE) 0.05 % ointment Apply nightly to affected area for 8-12 weeks, then 1-3x weekly for maintenance cyanocobalamin, vitamin B-12, 5,000 mcg subl Dissolve under the tongue once daily. dulaglutide (TRULICITY) 1.5 mg/0.5 mL pen injector Inject 1.5 mg subcutaneously every Sunday. Patient assistance medication escitalopram oxalate (LEXAPRO) 20 mg tablet Take 1 tablet by mouth once daily. Patient not taking: Reported on 03/17/2024 ferrous sulfate 325 mg (65 mg iron) tablet Take 1 tablet by mouth every Sunday, Sunday, and Sunday. Patient not taking: Reported on 03/17/2024 furosemide (LASIX) 40 mg tablet Take 1 tablet by mouth once daily. gabapentin (NEURONTIN) 400 mg capsule Take 1 capsule by mouth two times a day AND 2 capsules daily at bedtime. Do all this for 90 days. GLUC PETIT/CHONDRO PETIT A/VIT C/MN (GLUCOSAMINE 1500 COMPLEX ORAL) Take 1 tablet by mouth once daily. hydrALAZINE (APRESOLINE) 50 mg tablet Take 1 tablet by mouth two times a day. Hold for SBP less than 120mm HG insulin glargine (LANTUS SOLOSTAR, BASAGLAR KWIKPEN) 100 unit/mL (3 mL) Inject 30 Units subcutaneously every morning. insulin lispro (HUMALOG KWIKPEN) 100 unit/mL Inject 4 Units subcutaneously three times daily before meals. Utilize per sliding scale, max of 20 units per day. Pt assistance med Patient taking differently: Inject 4 Units subcutaneously three times a day before meals. Patient took 10 units this am before breakfast Utilize per sliding scale, max of 20 units per day. Pt assistance med insulin needles, DISPOSABLE, (PEN NEEDLE) 31 gauge x 5/16 Use one needle per dose. 5 per day. Lancets Test blood sugar(s) 3 to 4 times daily. Dx: Other DM Code E11.51 Insulin: Yes Magnesium Oxide 500 mg tab Take 1 tablet by mouth once daily. For constipation nitroglycerin sublingual (NITROQUICK) 0.4 mg SL tablet Dissolve 1 tablet under the tongue as needed. As directed nystatin (MYCOSTATIN) powder Apply 1 application to affected area twice daily as needed. For prevention pantoprazole DR (PROTONIX) 40 mg tablet Take 1 tablet by mouth once daily. polyethylene glycol 3350 (MIRALAX) 17 gram/dose powder Take 17 g by mouth as directed. tamsulosin (FLOMAX) 0.4 mg Take 1 capsule by mouth once daily. traMADol (ULTRAM) 50 mg tablet Take 1 tablet by mouth two times a day as needed for pain for up to 7 days. Zinc 50 mg tab Take by mouth once daily. Herbals: Prebiothrive supplement once weekly; MCT Wellness supplement daily; Vital Reds supplement daily (all from Dr. Whitfield) Exam: There were no vitals taken for this visit. Last 3 Encounter BP Readings: Date: BP: 03/17/2024 108/58 06/13/2023 130/54 05/15/2023 118/68 Wt: 91.6 kg (202 lb) BMI: 36.95 kg/(m^2) LABS: Reviewed Lab Results Component Value Date HBA1C 6.1 12/11/2023 HBA1C 5.7 12/07/2022 HBA1C 5.4 05/09/2021 HBA1C 6.3 06/09/2020 HBA1C 6.7 03/02/2020 CMP: Glucose 133 12/11/2023 BUN 37 12/11/2023 Creatinine 1.68 12/11/2023 Sodium (I-STAT) 142 12/11/2023 Potassium (I-STAT) 4.9 12/11/2023 Chloride 106 12/11/2023 CO2 25 12/11/2023 Protein, Total 6.8 12/11/2023 Albumin 4.1 12/11/2023 Calcium 11.0 12/11/2023 Alkaline Phosphatase 83 12/11/2023 Bilirubin, Total 0.2 12/11/2023 AST 19 12/11/2023 ALT 18 12/11/2023 eGFR 33 Lab Results Component Value Date CHOL 157 12/11/2023 CHOL 145 09/20/2020 LDL 78 12/11/2023 LDL 71 09/20/2020 HDL 55 12/11/2023 HDL 51 09/20/2020 TG 119 12/11/2023 TG 114 09/20/2020 The ASCVD Risk score (Tiera EDGE, et al., 2019) failed to calculate for the following reasons: The patient has a prior TX or stroke diagnosis Albumin/Creat Ratio (mg/g) Date Value 12/11/2023 113 (H) PHARMACOTHERAPY ASSESSMENT/PLAN: 1. Type 2 diabetes mellitus with stage 3b chronic kidney disease, with long-term current use of insulin (HCC) - ICD9: 250.40, 585.3, V58.67, ICD10: E11.22, N18.32, Z79.4 (primary diagnosis) A1c goal < 8%; controlled (last A1c 6.1%); TIR at goal; experiencing compression low BG alerts with Dexcom, verified with fingerstick that NOT having true hypoglycemia; pt's biggest priority is weight loss (feels desperate, recently spent >$600 on supplements; monitoring diet closely); exercise is limited given wheelchair use, s/p BKA; will try switching Trulicity to Mounjaro; if not covered, will plan to increase Trulicity to 3mg weekly (will need to order through [facility] since gets through [facility]); renal fxn limited DISCONTINUE Trulicity 1.5mg weekly INITIATE Mounjaro 5mg weekly (will need to get verbal from PCP to order) Discussed similar ADRs and warnings to Trulicity. Advised to contact office if any sharp/stabbing abdominal pain concerning for pancreatitis or gall bladder issues Advised to contact me via [employer] with status update of Mounjaro. If too expensive, will order Trulicity 3mg weekly Continue other medications Encouraged discussing with PCP a referral with PT to assist with strengthening leg and getting use to prosthetic, hope to improve mobility Discussed compression lows with CGM and lag times 2. Medication management - ICD9: V58.69, ICD10: Z79.899 Not enough time to address today, will plan for med review at f/up visit Follow-up Patient is scheduled to see PCP team on 06/13. Patient to have f/up with PharmD team on 05/07. Patient verbalized understanding of instructions. Adelaide Ann PharmD, [facility] Primary Care Clinical Pharmacist Time spent: 65 mins documented in this encounter [facility] 03-19-2024 Telephone encounter Note The patient has been identified by name and date of : Yes Caregiver verified no other encounters exist for this prescription request: Yes Caregiver confirmed with patient/requestor that no other refills are due, in the near future, with this provider at this time: Yes The last office visit in the department: 03/17/2024 Does the patient have a future office visit with this provider/department: Yes 06/13/2024 Requested Prescriptions Pending Prescriptions Disp Refills Blood-Glucose Sensor (DEXCOM G7 SENSOR) jackson 9 Each 3 Sig: Apply new sensor every ten (10) days. Elana Paredes LPN March 19, 2024 11:15 AM [facility] 03-19-2024 Miscellaneous Notes The patient has been identified by name and date of : Yes Caregiver verified no other encounters exist for this prescription request: Yes Caregiver confirmed with patient/requestor that no other refills are due, in the near future, with this provider at this time: Yes The last office visit in the department: 03/17/2024 Does the patient have a future office visit with this provider/department: Yes 06/13/2024 Requested Prescriptions Pending Prescriptions Disp Refills Blood-Glucose Sensor (DEXCOM G7 SENSOR) jackson 9 Each 3 Sig: Apply new sensor every ten (10) days. Elana Paredes LPN March 19, 2024 11:15 AM documented in this encounter [facility] 2024 Telephone encounter Note Telephoned the patient to schedule a new Primary Care pharmacy appt. Left a message. [facility] 2024 Miscellaneous Notes Telephoned the patient to schedule a new Primary Care pharmacy appt. Left a message. documented in this encounter [facility] 03-17-2024 Instructions Earl Shepherd MD - 03/17/2024 6:23 PM EDT Try Miralax every other day. May adjust dose to be able to get bowels moving daily. If this causes stools to be too runny, then add Metamucil at night. Use smaller amount than on label or find another substitute that helps to bulk up stool. May use Miralax every day if needed. Okay to stay on Magnesium daily. Working on getting bowels moving daily or at least no problems with hard stools and straining and bloating. documented in this encounter [facility] 03-17-2024 History of Present illness Narrative This note was created using [employer]. Subjective Miriam Thomas is a 68 year old female. Patient presents with: Established Patient: Personal matter SUBJECTIVE: Miriam Thomas is a 68 year old year old lady here today for follow up appointment for review of medical conditions. Gardening Enjoys lunch with . Weaned off lexapro in the spring after weaned off other med. Gaining weight and up to size 11 from 8. Feels bloated. Most of the time feels 9 months . Skin folds that smell. Using baby wipe. Using Nystatin powder. Lichen sclerosus form vagina to anus. Doing sitz bath. Using med routinely. Constant pain in left butt cheek from sitting in power wheelchair. Trying to be on better diet. Got on line and did test for Ozempic. States she is a candidate. Trying supplement to help with leaky gut. States it is to help fat to break down. Supposed to mimic ketosis. $600 for 6 months supply. Also another supplement. Eats 2 meals a day. Watches carbs Under 30 carbs for breakfast--usually 15 grams and with protein. Second meal between 2 and 4:30. Meat and veggies. Before was on Weight Watchers. Stopped due to program, kept checking. Not doing regular exercise. Constipation ongoing. If no BM in 3 days, takes Miralax. Takes magnesium daily. Got new leg-was not walking because needed new leg. Had sore on right foot too. Trigger finger right ring and middle finger and having swelling. Had 2 injections that helped but does not last more than a few months Hip pain noted. Needed refill for tramadol to have on hand when has increased pain from increased activity. PAST MEDICAL HISTORY Diagnosis Date Anxiety Arthritis Depression MARITZA exposure in utero Diabetes mellitus ([facility]) 1986 Diabetic neuropathy ([facility]) Gangrene ([facility]) Heart attack ([facility]) [address] Adalberto Power [place] Herniated disc Hypertension Muscular deconditioning PVD (peripheral vascular disease) ([facility]) 10/2019 S/P BKA (below knee amputation) unilateral, left ([facility]) Sleep apnea cpap Snoring Stroke ([facility]) 11/2004 and 05/2005 x 2, right sided weakness Current Outpatient Medications Medication Sig blood sugar diagnostic (BLOOD GLUCOSE TEST) test strip Test blood sugar(s) 3 to 4 times daily. Dx: Other DM Code E11.51 Insulin: Yes One touch or Accucheck strips or strips covered by her insurance. Lancets Test blood sugar(s) 3 to 4 times daily. Dx: Other DM Code E11.51 Insulin: Yes clobetasol (TEMOVATE) 0.05 % ointment Apply nightly to affected area for 8-12 weeks, then 1-3x weekly for maintenance apixaban (ELIQUIS) 5 mg tab(s) Take 1 tablet by mouth two times a day. furosemide (LASIX) 40 mg tablet Take 1 tablet by mouth once daily. hydrALAZINE (APRESOLINE) 50 mg tablet Take 1 tablet by mouth two times a day. Hold for SBP less than 120mm HG Blood-Glucose Sensor (DEXCOM G7 SENSOR) jackson Apply new sensor every ten (10) days. pantoprazole DR (PROTONIX) 40 mg tablet Take 1 tablet by mouth once daily. valACYclovir (VALTREX) 500 mg tablet Take 1 tablet by mouth once daily. May increase to 2 pills twice daily for 5 days as directed for acute outbreaks. gabapentin (NEURONTIN) 400 mg capsule Take 1 capsule by mouth two times a day AND 2 capsules daily at bedtime. Do all this for 90 days. carvedilol (COREG) 6.25 mg tablet Take 1 tablet by mouth two times a day with meals. tamsulosin (FLOMAX) 0.4 mg Take 1 capsule by mouth once daily. nystatin (MYCOSTATIN) powder Apply 1 application to affected area twice daily as needed. For prevention B complex w-C no.20/folic acid (B COMPLEX WITH C 20-FOLIC ACID ORAL) Take 1 tablet by mouth once daily. berberine/herbal complex no.18 (BERBERINE-HERBAL COMB NO.18 ORAL) Take 1,200 mg by mouth once daily. Magnesium Oxide 500 mg tab Take 1 tablet by mouth once daily. For constipation Blood-Glucose Meter,Continuous (DEXCOM G7 ENVELOPE SEALER) misc Use to check blood sugar at least four (4) times daily. nitroglycerin sublingual (NITROQUICK) 0.4 mg SL tablet Dissolve 1 tablet under the tongue as needed. As directed insulin needles, DISPOSABLE, (PEN NEEDLE) 31 gauge x 5/16 Use one needle per dose. 5 per day. cetirizine (ZYRTEC) 10 mg tablet Take 1 tablet by mouth once daily as needed. insulin lispro (HUMALOG KWIKPEN) 100 unit/mL Inject 4 Units subcutaneously three times daily before meals. Utilize per sliding scale, max of 20 units per day. Pt assistance med (Patient taking differently: Inject 4 Units subcutaneously three times a day before meals. Patient took 10 units this am before breakfast Utilize per sliding scale, max of 20 units per day. Pt assistance med) dulaglutide (TRULICITY) 1.5 mg/0.5 mL pen injector Inject 1.5 mg subcutaneously every Sunday. Patient assistance medication insulin glargine (LANTUS SOLOSTAR, BASAGLAR KWIKPEN) 100 unit/mL (3 mL) Inject 30 Units subcutaneously every morning. aspirin, enteric coated (ASPIRIN, ENTERIC COATED) 81 mg EC tablet Take 1 tablet by mouth once daily. ciclopirox (LOPROX) 0.77 % susp Apply 1 application to affected area once daily. Okay in skin folds as discussed. Zinc 50 mg tab Take by mouth once daily. cyanocobalamin, vitamin B-12, 5,000 mcg subl Dissolve under the tongue once daily. ascorbic acid, vitamin C, (VITAMIN C) 500 mg tablet Take 1,000 mg by mouth once daily. biotin 5,000 mcg ODT Take 1 tablet by mouth once daily. GLUC PETIT/CHONDRO PETIT A/VIT C/MN (GLUCOSAMINE 1500 COMPLEX ORAL) Take 1 tablet by mouth once daily. Cholecalciferol, Vitamin D3, 50 mcg (2,000 unit) cap Take 1 capsule by mouth once daily. polyethylene glycol 3350 (MIRALAX) 17 gram/dose powder Take 17 g by mouth as directed. atorvastatin (LIPITOR) 20 mg tablet Take 1 tablet by mouth once daily. (Patient not taking: Reported on 03/17/2024) escitalopram oxalate (LEXAPRO) 20 mg tablet Take 1 tablet by mouth once daily. (Patient not taking: Reported on 03/17/2024) ferrous sulfate 325 mg (65 mg iron) tablet Take 1 tablet by mouth every Sunday, Sunday, and Sunday. (Patient not taking: Reported on 03/17/2024) bacitracin zinc 500 unit/gram ointment Apply to affected area twice daily. As directed for affected area till healed (Patient not taking: Reported on 03/17/2024) No current facility-administered medications for this visit. Review of Systems Objective BP 108/58 Pulse 82 Temp 36.5 C (97.7 F) Resp 18 Wt 91.6 kg (202 lb) SpO2 98% BMI 36.95 kg/m Physical Exam Constitutional: Appearance: Normal appearance. She is obese. Eyes: Conjunctiva/sclera: Conjunctivae normal. Pulmonary: Effort: Pulmonary effort is normal. Musculoskeletal: Left Lower Extremity: Left leg is amputated below knee. Skin: Comments: Redness in abdominal skin folds mid abdomen consistent with candidal dermatitis; no signs of bacterial cellulitis. Healing sore on top of right food;almost completely healed. Neurological: Mental Status: She is alert. Psychiatric: Attention and Perception: Attention and perception normal. Mood and Affect: Affect normal. Mood is depressed. Speech: Speech normal. Behavior: Behavior normal. Thought Content: Thought content normal. Assessment and Plan Encounter Diagnosis ICD-10-CM 1. Trigger middle finger of right hand M65.331 Showed how to wrap with ashlyn to help prevent triggering. Discussed stretching exercise.Follow up with hand specialist/ortho as needed 2. Trigger ring finger of right hand M65.341 As noted above 3. Class 2 severe obesity due to excess calories with serious comorbidity and body mass index (BMI) of 36.0 to 36.9 in adult ([facility]) E66.01 Z68.36 Discussed weight gain and abdominal bloating.Will see if preventing and treating constipation helps.Work on better diet and regualr exercise goals. 4. Type 2 diabetes mellitus with diabetic neuropathy, with long-term current use of insulin ([facility]) E11.40 COMPREHENSIVE METABOLIC PANEL Z79.4 CONSULT TO PHARMACY Work with PharmD to see if can help with med adjustment and help with weight loss 5. Weight gain R63.5 THYROID STIMULATING HORMONE T4 FREE/FREE THYROXINE T3, FREE As noted above. Work on better diet and exercise. 6. Constipation, unspecified constipation type K59.00 THYROID STIMULATING HORMONE T4 FREE/FREE THYROXINE T3, FREE Discussed management.Goal to keep bowels moving regulary noted. See patient instruction 7. Candidal intertrigo B37.2 ciclopirox (LOPROX) 0.77 % cream Skin folds in pannus. Discussed options with topicals; reserve fluconazole for severe infection 8. Genital herpes simplex type 1 infection A60.00 acyclovir (ZOVIRAX) 400 mg tablet Needed refill for med and switch to covered med; valacyclovir was effective for suppression but no longer on formulary 9. Right hip pain M25.551 traMADol (ULTRAM) 50 mg tablet Continue present management 10. Anemia, unspecified type D64.9 COMPLETE BLOOD COUNT VITAMIN B12 IRON AND TIBC FOLATE, SERUM FERRITIN Follow up labs. Further evaluation and treatment as needed 11. Osteoporosis without current pathological fracture, unspecified osteoporosis type M81.0 VITAMIN D 25 HYDROXY Follow up labs and BMD when due 12. Type 2 diabetes mellitus with stage 3b chronic kidney disease, with long-term current use of insulin ([facility]) E11.22 VITAMIN D 25 HYDROXY N18.32 CONSULT TO PHARMACY Z79.4 13. Hypercalcemia E83.52 PTH INTACT PHOSPHORUS INORGANIC CALCIUM, IONIZED PROTEIN ELECTROPHORESIS SERUM W/INTERP PROTEIN ELECT RND UR W/INTERP Follow up labs as discussed 14. Abdominal bloating R14.0 Appears related to constipation but if not improving, consider CT abdomen, ultrasound, etc. 15. Hx of BKA, left ([facility]) Z89.512 Was not able to regularly exercise since waiting for new prosthesis.Further evaluation as needed 16. PVD (peripheral vascular disease) ([facility]CC) I73.9 Stable but noted taking a while for wound on right foot to heal.Further evaluation as needed Above issues addressed with patient. Patient involved in shared decision making for management of medical issues. History and medications reviewed. Epic updated as needed Refills and/or prescriptions taken care of and meds adjusted as indicated after reviewed history, exam and labs. Health Maintenance reviewed. Updated record and/or ordered tests as recorded. Encouraged on efforts at healthy diet and regular exercise and adequate sleep. I spent a total of 63 minutes on the date of the service which included [id number] patient care, completing clinical documentation, obtaining and/or reviewing separately obtained history, performing a medically appropriate examination, counseling and educating the patient/family/caregiver, ordering medications, tests, or procedures, independently interpreting results (not separately reported), and communicating results to the patient/family/caregiver. Earl Shepherd MD documented in this encounter [facility] 03-17-2024 Telephone encounter Note Patient contacted and agreed to 6:00pm appointment today. [facility] 03-17-2024 Miscellaneous Notes Patient contacted and agreed to 6:00pm appointment today. Is 6PM on Sunday too late? Maybe 3:00 if so. I have a meeting at 4 and there is another patient after that slot, so time would be limited (need to see if the 3:40 come a little sooner to make sure did not get late to 4PM meeting). Patient calling asking for appt with PCP today or Sunday. She said it is a private matter and will not discuss with anyone but PCP. First opening computer gives me is 7/11 and patient said can not wait that long. Please advise documented in this encounter [facility] 03-14-2024 Telephone encounter Note Is 6PM on Sunday too late? Maybe 3:00 if so. I have a meeting at 4 and there is another patient after that slot, so time would be limited (need to see if the 3:40 come a little sooner to make sure did not get late to 4PM meeting). [facility] 03-14-2024 Telephone encounter Note Patient calling asking for appt with PCP today or Sunday. She said it is a private matter and will not discuss with anyone but PCP. First opening computer gives me is 7/11 and patient said can not wait that long. Please advise [facility] 03-12-2024 History of Present illness Narrative POPULATION HEALTH NAVIGATION OUTREACH Action/FYI Contacted patient to schedule [place] Annual Wellness Visit, care gaps and HCCs due. 1st attempt: Left message with my direct number 2nd attempt: My Chart message sent Reason for Outreach Care Gap/HCC or Scheduling Wellness Visits Care Gaps due: Medicare Annual Wellness Visit Breast Cancer Screening Patient Contacted: Unable or unnecessary to reach patient: Left message MyChart message sent HCC related Navigation Signature: Jagruti Jacobson MA March 12, 2024 4:40 PM documented in this encounter [facility] 02-04-2024 History of Present illness Narrative 1st attempt: LVM for patient to schedule with occupational therapy. TASHA Sanderson Filed order [facility] Telephonic Outreach Provider Mere/HOPE Shepherd MD Mrs Thomas and I discussed her hx of trigger fingers with limited relief from steriod injections. We also discussed OT to help her with this chronic issue and she is interested. Would you consider an OT referral for this? I have pended an order to this encounter for your review. Please have your office reach out to the patient with further orders/instructions. Thank you, Francisca Nelson RN Glue Sprayer Information for next CDM Outreach: Consult to Physical Therapy on file dated 06/13/23 For an appointment call [facility]: [phone]. Patient asked for [employer] message with Physical Therapy scheduling number. Discussed hx of trigger fingers patient is interested in OT see message to PCP above Contacted for: Routine Telephonic Outreach Contact made with patient: Yes Patient identified by name and date of . Discussed care with patient Are you experiencing any new or worsening symptoms you need to talk about today? Yes Based on dispute resolution specialist, the following disposition is advised: No symptoms or symptoms present, not severe. Routed to: No Action NeededSEE NOTE ABOVE. LAI Education Provided this Outreach: No Francisca Nelson RN February 01, 2024 3:25 PM documented in this encounter [facility] 01-30-2024 History of Present illness Narrative CD Telephonic Outreach Provider Mere/HOPE 2nd attempt Information for next CDM Outreach: CKD , HTN, and DM Follow up from last CDM encounter: Discussed hx of trigger fingers Earl Shepherd MD ordered OT Patient going to [facility] Rehabilitation Needs Patient stated Goal(s), ADLs and Falls assessments updated. Needs SDOH for food and transportation updated. Contacted for: Routine Telephonic Outreach Contact made with patient: No, left message. Francisca Nelson RN March 04, 2024 10:08 AM [facility] Telephonic Outreach Provider Action/FYI Contacted for: Routine Telephonic Outreach Contact made with patient: No, left message. Francisca Nelson RN March 03, 2024 2:37 PM documented in this encounter [facility] 01-30-2024 History of Present illness Narrative [facility] Telephonic Outreach Provider Action/FYI CD Outreach notes: CKD , HTN, DM Patient has concerns about weight and DM medication - has Pharm visit tomorrow - wants to discuss accuracy of Dexcom OT copay is cost prohibitive. May possibly see a hand specialist for trigger finger and Dupuytren's contracture. Patient stated Goal, ADLs and Falls assessments updated. Contacted for: Routine Telephonic Outreach Contact made with patient: Yes Patient identified by name and date of . Discussed care with patient Are you experiencing any new or worsening symptoms you need to talk about today? Yes Based on dispute resolution specialist, the following disposition is advised: No symptoms or symptoms present, not severe. Routed to: No Action Needed LAI Education Provided this Outreach: No Francisca Nelson RN April 01, 2024 5:18 PM documented in this encounter [facility] 01-30-2024 History of Present illness Narrative [facility] Telephonic Outreach Provider Action/FYI Social Work referral: Patient asks for assistance with 1.potentially applying for SS Disability (isability coverage was stopped from employer in March 2024) 2.concerns about future transportation challenges (car is very old)- discussed transportation options possibly offered by [facility] 3. Currently in the donut hole and concerned about overall financial well being through the end of the year. Thank you, Francisca Nelson RN [employer] Spr[employer] CDM Outreach notes: CKD , HTN, DM Patient reports increased pain R leg radiating from buttock down the leg - trying to use it more recently. Encouraged gentle stretching, ice, pressure relief and to make appointment with PCP if worsening. Patient reports disability coverage was stopped from employer in March 2024 has questions about SS disability Contacted for: Routine Telephonic Outreach Contact made with patient: Yes Patient identified by name and date of . Discussed care with patient Are you experiencing any new or worsening symptoms you need to talk about today? Yes Based on dispute resolution specialist, the following disposition is advised: No symptoms or symptoms present, not severe. Routed to: Primary Care Social Work LAI Education Provided this Outreach: No Francisca Nelson RN April 30, 2024 10:51 AM [facility] Telephonic Outreach Provider Action/FYI Contacted for: Routine Telephonic Outreach Contact made with patient: No, left message. Patient asked for call tomorrow Francisca Nelson RN April 29, 2024 3:26 PM documented in this encounter [facility] 01-30-2024 History of Present illness Narrative [facility] Telephonic Outreach Provider Action/FYI CD Outreach notes: CKD3 , HTN, DM 2nd attempt this cycle Next CDM outreach planned after 06/13/24 INTM appointment Follow up from last CDM encounter: sciatica pain and SW referral Contacted for: Routine Telephonic Outreach Contact made with patient: No, left message. Francisca Nelson RN May 30, 2024 9:54 AM [facility] Telephonic Outreach Provider Action/FYI Contacted for: Routine Telephonic Outreach Contact made with patient: No, left message. Francisca Nelson RN May 29, 2024 3:32 PM documented in this encounter [facility] 01-30-2024 History of Present illness Narrative [facility] Telephonic Outreach Provider Action/FYI CDM Outreach notes: CKD3 , HTN, DM Patient reports restarted Wellbutrin and Lexapro - has appointments with pharmacist and [facility] Barnes [facility] Sleep provider noted SPO2 with CPAP 87% - patient scheduled for a breathing test. Endorses SILVA. Discussed PULM rehabilitation and home SPO2 testing. Contacted for: Routine Telephonic Outreach Contact made with patient: Yes Patient identified by name and date of . Discussed care with patient Are you experiencing any new or worsening symptoms you need to talk about today? Yes Based on dispute resolution specialist, the following disposition is advised: No symptoms or symptoms present, not severe. Routed to: No Action Needed LAI Education Provided this Outreach: Yes Francisca Nelson RN June 27, 2024 11:34 AM [facility] Telephonic Outreach Provider Action/FYI Contacted for: Routine Telephonic Outreach Contact made with patient: No, left message. Francisca Nelson RN June 26, 2024 4:25 PM documented in this encounter [facility] 01-30-2024 History of Present illness Narrative [facility] Telephonic Outreach Provider Action/FYI CDM Outreach notes: CKD3 , HTN, DM 2nd attempt this cycle 06/26/24 last [facility] CDM contact. Contacted for: Routine Telephonic Outreach Contact made with patient: No, left message. Francisca Nelson RN July 28, 2024 1:56 PM [facility] Telephonic Outreach Provider Action/FYI Contacted for: Routine Telephonic Outreach Contact made with patient: No, left message. Francisca Nelson RN July 25, 2024 2:28 PM documented in this encounter [facility] 01-14-2024 Miscellaneous Notes Patient notified of providers message and verbalized understanding. Okay for supplies. Ask her to please let us know how they compare next week. Patient calling with request for new glucose meter, test strips and lancets. Shante Call [facility]. She has a Dexcom CGM but says her Dexcom is giving false readings. She says her Dexcom meter is showing a blood glucose level of 202 and rising. She just used her 's meter to compare and the reading was 170. She said she also had some low reading warnings in the 50's and compared with her 's meter her readings were in the 100's. Meghan Huitron RN documented in this encounter [facility] 01-01-2024 History of Present illness Narrative CDM Telephonic Outreach Provider Action/FYI I just got a new prosthetic. Once I get it, I want to get some physical therapy for it to try and use it again. Pt educated to call her PCP office after getting her prosthetic to request an order for PT. Pt verbalized understanding. Contacted for: Routine Telephonic Outreach Contact made with patient: Yes Patient identified by name and date of . Discussed care with patient Are you experiencing any new or worsening symptoms you need to talk about today? Yes Based on dispute resolution specialist, the following disposition is advised: No symptoms or symptoms present, not severe. Routed to: No Action Needed LAI Education Provided this Outreach: No Khushboo Graves RN January 01, 2024 12:21 PM documented in this encounter [facility] 12-31-2023 History of Present illness Narrative CDM Telephonic Outreach Provider Action/FYI Contacted for: Routine Telephonic Outreach Contact made with patient: No, left message. Khushboo Graves RN December 31, 2023 2:36 PM documented in this encounter [facility] 12-22-2023 Miscellaneous Notes Phoned patient and left message of information below on voicemail. The following approved medication requests have been transmitted electronically. Requested Prescriptions Signed Prescriptions Disp Refills atorvastatin (LIPITOR) 20 mg tablet 90 tablet 3 Sig: Take 1 tablet by mouth once daily. Authorizing Provider: EARL SHEPHERD MD Patient reports she will be out of the medication on Sunday. Requested Prescriptions Pending Prescriptions Disp Refills atorvastatin (LIPITOR) 20 mg tablet 90 tablet 3 Sig: Take 1 tablet by mouth once daily. Date of last office visit in primary care: 12/12/2023 Date of next office visit in primary care: 06/13/2024 Haley Huang RN. documented in this encounter [facility] 12-12-2023 History of Present illness Narrative This note was created using [employer]. Subjective Miriam Thomas is a 68 year old female. HISTORY Miriam Thomas is a 68 year old lady here for yearly exam and follow up appointment. Overall doing well. Stable on meds. [facility] due to problems with getting meds on time. Had some increased constipation. Increased magnesium. Stopped Miralax was causing watery stools. Drinks enough water daily. Gets fiber in diet. Black coffee helps. Sometimes goes every 3 days but can have hard stool. Has had some lows at night. Most of the time okay. Does not have HCDPOA or LW. Surrogate decision maker is spouse. Given paperwork. PAST MEDICAL HISTORY Diagnosis Date Anxiety Arthritis Depression MARITZA exposure in utero Diabetes mellitus ([facility]) 1986 Diabetic neuropathy ([facility]) Gangrene ([facility]) Heart attack ([facility]) [address] Adalberto Power [place] Herniated disc Hypertension Muscular deconditioning PVD (peripheral vascular disease) ([facility]) 10/2019 S/P BKA (below knee amputation) unilateral, left ([facility]) Sleep apnea cpap Snoring Stroke ([facility]) 11/2004 and 05/2005 x 2, right sided weakness Current Outpatient Medications Medication Sig clobetasol (TEMOVATE) 0.05 % ointment Apply nightly to affected area for 8-12 weeks, then 1-3x weekly for maintenance escitalopram oxalate (LEXAPRO) 20 mg tablet Take 1 tablet by mouth once daily. apixaban (ELIQUIS) 5 mg tab(s) Take 1 tablet by mouth two times a day. ferrous sulfate 325 mg (65 mg iron) tablet Take 1 tablet by mouth every Sunday, Sunday, and Sunday. furosemide (LASIX) 40 mg tablet Take 1 tablet by mouth once daily. hydrALAZINE (APRESOLINE) 50 mg tablet Take 1 tablet by mouth two times a day. Hold for SBP less than 120mm HG pantoprazole DR (PROTONIX) 40 mg tablet Take 1 tablet by mouth once daily. valACYclovir (VALTREX) 500 mg tablet Take 1 tablet by mouth once daily. May increase to 2 pills twice daily for 5 days as directed for acute outbreaks. gabapentin (NEURONTIN) 400 mg capsule Take 1 capsule by mouth two times a day AND 2 capsules daily at bedtime. Do all this for 90 days. carvedilol (COREG) 6.25 mg tablet Take 1 tablet by mouth two times a day with meals. tamsulosin (FLOMAX) 0.4 mg Take 1 capsule by mouth once daily. nystatin (MYCOSTATIN) powder Apply 1 application to affected area twice daily as needed. For prevention B complex w-C no.20/folic acid (B COMPLEX WITH C 20-FOLIC ACID ORAL) Take 1 tablet by mouth once daily. berberine/herbal complex no.18 (BERBERINE-HERBAL COMB NO.18 ORAL) Take 1,200 mg by mouth once daily. Magnesium Oxide 500 mg tab Take 1 tablet by mouth once daily. For constipation Blood-Glucose Meter,Continuous (DEXCOM G7 ENVELOPE SEALER) misc Use to check blood sugar at least four (4) times daily. atorvastatin (LIPITOR) 20 mg tablet Take 1 tablet by mouth once daily. nitroglycerin sublingual (NITROQUICK) 0.4 mg SL tablet Dissolve 1 tablet under the tongue as needed. As directed blood sugar diagnostic (BLOOD GLUCOSE TEST) test strip Test blood sugar(s) 3 to 4 times daily. Dx: Other DM Code E11.51 Insulin: Yes One touch or Accucheck insulin needles, DISPOSABLE, (PEN NEEDLE) 31 gauge x /16 Use one needle per dose. 5 per day. bacitracin zinc 500 unit/gram ointment Apply to affected area twice daily. As directed for affected area till healed cetirizine (ZYRTEC) 10 mg tablet Take 1 tablet by mouth once daily as needed. insulin lispro (HUMALOG KWIKPEN) 100 unit/mL Inject 4 Units subcutaneously three times daily before meals. Utilize per sliding scale, max of 20 units per day. Pt assistance med dulaglutide (TRULICITY) 1.5 mg/0.5 mL pen injector Inject 1.5 mg subcutaneously every Sunday. Patient assistance medication insulin glargine (LANTUS SOLOSTAR, BASAGLAR KWIKPEN) 100 unit/mL (3 mL) Inject 30 Units subcutaneously every morning. aspirin, enteric coated (ASPIRIN, ENTERIC COATED) 81 mg EC tablet Take 1 tablet by mouth once daily. ciclopirox (LOPROX) 0.77 % susp Apply 1 application to affected area once daily. Okay in skin folds as discussed. Lancets lancets Test blood sugar(s) 3 to 4 times daily. Dx: Other DM Code E11.51 Insulin: Yes Zinc 50 mg tab Take by mouth once daily. cyanocobalamin, vitamin B-12, 5,000 mcg subl Dissolve under the tongue once daily. ascorbic acid, vitamin C, (VITAMIN C) 500 mg tablet Take 1,000 mg by mouth once daily. biotin 5,000 mcg ODT Take 1 tablet by mouth once daily. GLUC PETIT/CHONDRO PETIT A/VIT C/MN (GLUCOSAMINE 1500 COMPLEX ORAL) Take 1 tablet by mouth once daily. Cholecalciferol, Vitamin D3, 50 mcg (2,000 unit) cap Take 1 capsule by mouth once daily. polyethylene glycol 3350 (MIRALAX) 17 gram/dose powder Take 17 g by mouth as directed. Blood-Glucose Sensor (DEXCOM G7 SENSOR) jackson Apply new sensor every ten (10) days. No current facility-administered medications for this visit. ALLERGIES Allergen Reactions Meloxicam GI Upset Sulfa (Sulfonamide * Swelling Facial swelling, shortness of breath. FAMILY HISTORY Problem Relation Age of Onset Hypertension Mother Diabetes Mother Lipids Mother Hypertension Father Diabetes Father Lipids Father Heart Father Triple bypass other (AAA) Father Cancer Paternal Grandmother uterine cancer Social History Tobacco Use Smoking status: Never Smokeless tobacco: Never Vaping Use Vaping Use: Never used Substance Use Topics Alcohol use: Yes Comment: Rarely Drug use: No Review of Systems Objective BP (P) 146/73 (BP Site: Right Arm, BP Position: Sitting, BP Cuff Size: Large Adult) Resp (P) 16 Wt (P) 91.6 kg (202 lb) BMI (P) 36.95 kg/m Last 5 Encounter Wt Readings: Date: Wt: 06/13/2023 89.4 kg (197 lb) 05/15/2023 90.3 kg (199 lb) 04/10/2023 90.3 kg (199 lb) 01/24/2023 78.9 kg (174 lb) 11/09/2021 78.9 kg (174 lb) No waist measurement recorded Estimated body mass index is 36.95 kg/m (pended) as calculated from the following: Height as of 01/24/23: 157.5 cm (5' 2). Weight as of this encounter: (P) 91.6 kg (202 lb). Last 5 Encounter BP Readings: Date: BP: 06/13/2023 130/54 05/15/2023 118/68 04/10/2023 136/82 12/11/2022 122/64 10/12/2021 132/62 Physical Exam Vitals reviewed. Constitutional: Appearance: She is well-developed. HENT: Head: Normocephalic and atraumatic. Right Ear: External ear normal. Left Ear: External ear normal. Nose: Nose normal. Eyes: Conjunctiva/sclera: Conjunctivae normal. Neck: Thyroid: No thyromegaly. Cardiovascular: Rate and Rhythm: Normal rate and regular rhythm. Pulses: Normal pulses. Heart sounds: Normal heart sounds. No murmur heard. No friction rub. No gallop. Pulmonary: Effort: Pulmonary effort is normal. Breath sounds: Normal breath sounds. Abdominal: General: Bowel sounds are normal. There is no distension. Palpations: Abdomen is soft. There is no mass. Tenderness: There is no abdominal tenderness. Musculoskeletal: General: No deformity. Normal range of motion. Lymphadenopathy: Cervical: No cervical adenopathy. Skin: General: Skin is warm and dry. Coloration: Skin is not jaundiced or pale. Findings: No rash. Neurological: General: No focal deficit present. Mental Status: She is alert and oriented to person, place, and time. Cranial Nerves: No cranial nerve deficit. Sensory: No sensory deficit. Motor: No abnormal muscle tone. Coordination: Coordination normal. Deep Tendon Reflexes: Reflexes normal. Psychiatric: Mood and Affect: Mood normal. Behavior: Behavior normal. Thought Content: Thought content normal. Judgment: Judgment normal. Latest Ref Rng 05/09/2021 12/07/2022 12/11/2023 WBC 3.70 - 11.00 k/uL 7.52 9.49 9.99 RBC 3.90 - 5.20 m/uL 3.35 (L) 3.16 (L) 3.17 (L) Hemoglobin 11.5 - 15.5 g/dL 9.9 (L) 10.0 (L) 9.6 (L) Hematocrit 36.0 - 46.0 % 32.9 (L) 31.6 (L) 31.0 (L) MCV 80.0 - 100.0 fL 98.2 100.0 97.8 MCH 26.0 - 34.0 pg 29.6 31.6 30.3 MCHC 30.5 - 36.0 g/dL 30.1 (L) 31.6 31.0 RDW-CV 11.5 - 15.0 % 16.2 (H) 13.2 14.2 Platelet Count 150 - 400 k/uL 255 243 256 MPV 9.0 - 12.7 fL 10.9 10.6 10.5 Neut% % 65.1 Abs Neut (ANC) 1.45 - 7.50 k/uL 6.50 Lymph% % 22.1 Abs Lymph 1.00 - 4.00 k/uL 2.21 [place]% % 6.8 Abs [place] <0.87 k/uL 0.68 Eosin% % 5.1 Abs Eosin <0.46 k/uL 0.51 (H) Baso% % 0.4 Abs Baso <0.11 k/uL 0.04 Immature Gran % % 0.5 IMMATURE GRANS (ABS) <0.10 k/uL 0.05 NRBC /100 WBC 0.0 Absolute nRBC <0.01 k/uL <0.01 <0.01 <0.01 DTYPE Auto Protein, Total 6.3 - 8.0 g/dL 6.9 6.8 6.8 Albumin 3.9 - 4.9 g/dL 3.9 4.1 4.1 Calcium 8.5 - 10.2 mg/dL 10.4 (H) 10.5 (H) 11.0 (H) Bilirubin, Total 0.2 - 1.3 mg/dL 0.2 0.2 0.2 Alkaline Phosphatase 34 - 123 U/L 72 86 83 AST 13 - 35 U/L 18 9 (L) 19 Glucose 74 - 99 mg/dL 69 (L) 98 133 (H) BUN 7 - 21 mg/dL 33 (H) 38 (H) 37 (H) Creatinine 0.58 - 0.96 mg/dL 1.77 (H) 1.93 (H) 1.68 (H) Sodium 136 - 144 mmol/L 142 140 142 Potassium 3.7 - 5.1 mmol/L 4.5 4.7 4.9 Chloride 97 - 105 mmol/L 105 103 106 (H) CO2 22 - 30 mmol/L 26 26 25 Anion Gap 9 - 18 mmol/L 11 11 11 ALT 7 - 38 U/L 22 10 18 eGFR- 35 eGFR-All Other Races . 29 eGFR >=60 mL/min/1.73m 28 (L) 33 (L) Cholesterol, Total <200 mg/dL 151 157 Triglyceride <150 mg/dL 118 119 HDL Cholesterol >39 mg/dL 44 55 Non HDL Cholesterol <130 mg/dL 107 102 Fasting Time hrs 12 11 VLDL Cholesterol <30 mg/dL 24 24 TC:HDL Ratio <5.10 3.43 2.85 LDL Cholesterol <100 mg/dL 83 78 LDL:HDL Ratio <2.54 1.89 1.42 Creatinine, Ur Random (UCRR) 20.0 - 300.0 mg/dL 60.8 53.8 63.7 Albumin, Urine Random mg/L 195.3 44.7 71.8 Albumin/Creat Ratio <30 mg/g 321 (H) 83 (H) 113 (H) Hemoglobin A1C 4.3 - 5.6 % 5.4 5.7 (H) 6.1 (H) Estimated Average Glucose mg/dL 108 117 128 Magnesium 1.7 - 2.3 mg/dL 2.4 (H) Legend: (L) Low (H) High Assessment and Plan Encounter Diagnosis ICD-10-CM 1. Moderate episode of recurrent major depressive disorder (HCC) F33.1 escitalopram oxalate (LEXAPRO) 20 mg tablet Exacerbated with ongoing medical issues,financial stressors,etc (see HPI). 2. Type 2 diabetes mellitus with stage 3b chronic kidney disease, with long-term current use of insulin ([facility]) E11.22 Blood-Glucose Sensor (DEXCOM G7 SENSOR) jackson N18.32 Z79.4 Continue present management 3. Essential hypertension I10 hydrALAZINE (APRESOLINE) 50 mg tablet Continue present management 4. Hemiparesis affecting dominant side as late effect of stroke ([facility]) I69.359 apixaban (ELIQUIS) 5 mg tab(s) furosemide (LASIX) 40 mg tablet Continue present efforts at stroke prevention 5. Gastroesophageal reflux disease without esophagitis K21.[address] (PROTONIX) 40 mg tablet Continue present management 6. Genital herpes simplex type 1 infection A60.00 valACYclovir (VALTREX) 500 mg tablet Needed refill for med; effective for suppression. 7. Encounter for immunization Z23 RSV PRINTED PHARMACY INSTRUCTIONS Patient here for yearly exam and follow up. Above issues addressed with patient. Patient involved in shared decision making for management of medical issues. History and medications reviewed. Epic updated as needed Refills taken care of and meds adjusted as indicated after reviewed history, exam and labs. Health Maintenance reviewed. Updated record and/or ordered tests as recorded. Encouraged on efforts at healthy diet and regular exercise and adequate sleep. Earl Shepherd MD documented in this encounter [facility] 12-03-2023 History of Present illness Narrative [facility] Telephonic Outreach Provider Action/FYI Contacted for: Routine Telephonic Outreach Contact made with patient: No, left message. Francisca Michel RN December 03, 2023 1:58 PM documented in this encounter [facility] 11-19-2023 History of Present illness Narrative [facility] Telephonic Outreach Provider Action/FYI Needs [facility] for food and transportation completed. Contacted for: Routine Telephonic Outreach Contact made with patient: No, left message. Khushboo Graves RN November 19, 2023 12:14 PM documented in this encounter [facility] 11-16-2023 History of Present illness Narrative [facility] Telephonic Outreach Provider Action/FYI Contacted for: Routine Telephonic Outreach Contact made with patient: No, left message. Khushboo Graves RN November 16, 2023 1:09 PM documented in this encounter [facility] 11-05-2023 Miscellaneous Notes Pt calling back and she has 2 other medications she needs sent to [facility] because she is having problems with mailorder. See below. Elana Paredes LPN Patient calling her mail away pharmacy did not have rx for her Gabapentin. Patient decided she wants a 90 day rx sent to [facility] not using the mail away for this right now. Pending rx to file. Please advise Patient has been identified by name and date of : Patient phones for refill(s): Requested Prescriptions Pending Prescriptions Disp Refills gabapentin (NEURONTIN) 400 mg capsule 360 capsule 0 Sig: Take 1 capsule by mouth two times a day AND 2 capsules daily at bedtime. Do all this for 90 days. Date of last office visit in primary care: 06/13/2023 Date of next office visit in primary care: 12/12/2023 Please advise. Thank you. Aletha Fair LPN. documented in this encounter [facility] 09-14-2023 History of Present illness Narrative [facility] Telephonic Outreach Provider Action/FYI #1 attempt to contact patient. Contacted for: Routine Telephonic Outreach Contact made with patient: No, left message. Felipe Carranza RN September 14, 2023 3:57 PM documented in this encounter [facility] 08-03-2023 Miscellaneous Notes [place]: 06/13/2023 Last refill: 12/11/2022 QTY: 180 Refills: 3 documented in this encounter [facility] 08-03-2023 Miscellaneous Notes Patient has been identified by name and date of : Yes Patient phones for refill(s): Requested Prescriptions Pending Prescriptions Disp Refills tamsulosin (FLOMAX) 0.4 mg 90 capsule 3 Sig: Take 1 capsule by mouth once daily. carvedilol (COREG) 6.25 mg tablet 180 tablet 3 Sig: Take 1 tablet by mouth two times a day with meals. Date of last office visit in primary care: 06/13/23 Date of next office visit in primary care: Visit date not found Last 2 Encounter Wt Readings: Date: Wt: 06/13/2023 89.4 kg (197 lb) 05/15/2023 90.3 kg (199 lb) Previous labs/tests for medication: Not applicable Please advise. Thank you. Holly Vazquez LPN. documented in this encounter [facility] 06-13-2023 History of Present illness Narrative SUBJECTIVE Miriam Thomas is a 68 year old female here today for a check up on her medical problems. Chief Complaint Patient presents with: F/U 6 months Right Hip Pain Conjunctivitis: dx and treated with antibiotic drops and then ointment but due to vision interference did not like the ointment HPI Miriam Thomas is a 68 year old female established patient of Dr. Shepherd. Presents today for a 6 month follow up. Accompanied by her . Last seen for routine follow up 12/11 for DM, depression, HTN, hemiparesis from late effect of stroke, GERD. A few concerns. Seen in , diagnosed with pink eye. Finished drops sent in ointment. Still issues with crust, watery eye. Right hip pain. Left lower extremity amputee. Takes tylenol, not daily, just when needed. Does not make a whole lot of difference. Issues with trying to transfer from chair to car. Lots of pivoting and turning on the hip. Otherwise doing okay. Follows with eye provider and retina specialist regularly. No leg or foot pain. Taking her medications daily. Her medications were reviewed today and her list is now up to date. Medications Current Outpatient Medications Medication Sig gabapentin (NEURONTIN) 400 mg capsule Take 1 capsule by mouth twice daily AND 2 capsules daily at bedtime. Do all this for 90 days. B complex w-C no.20/folic acid (B COMPLEX WITH C 20-FOLIC ACID ORAL) Take 1 tablet by mouth once daily. berberine/herbal complex no.18 (BERBERINE-HERBAL COMB NO.18 ORAL) Take 1,200 mg by mouth once daily. Magnesium Oxide 500 mg tab Take 1 tablet by mouth once daily. For constipation clobetasol (TEMOVATE) 0.05 % ointment Apply nightly to affected area for 8-12 weeks, then 1-3x weekly for maintenance escitalopram oxalate (LEXAPRO) 20 mg tablet Take 1 tablet by mouth once daily. apixaban (ELIQUIS) 5 mg tab(s) Take 1 tablet by mouth twice daily. atorvastatin (LIPITOR) 20 mg tablet Take 1 tablet by mouth once daily. carvedilol (COREG) 6.25 mg tablet Take 1 tablet by mouth twice daily with meals. ferrous sulfate 325 mg (65 mg iron) tablet Take 1 tablet by mouth every Sunday,Sunday,Sunday. furosemide (LASIX) 40 mg tablet Take 1 tablet by mouth once daily. hydrALAZINE (APRESOLINE) 50 mg tablet Take 1 tablet by mouth twice daily. Hold for SBP less than 120mm HG nitroglycerin sublingual (NITROQUICK) 0.4 mg SL tablet Dissolve 1 tablet under the tongue as needed. As directed pantoprazole DR (PROTONIX) 40 mg tablet Take 1 tablet by mouth once daily. valACYclovir (VALTREX) 500 mg tablet Take 1 tablet by mouth once daily. May increase to 2 pills twice daily for 5 days as directed for acute outbreaks. tamsulosin (FLOMAX) 0.4 mg Take 1 capsule by mouth once daily. buPROPion SR (WELLBUTRIN SR) 150 mg 12 hr tablet Take 1 tablet by mouth every morning. cetirizine (ZYRTEC) 10 mg tablet Take 1 tablet by mouth once daily as needed. insulin lispro (HUMALOG KWIKPEN) 100 unit/mL Inject 4 Units subcutaneously three times daily before meals. Utilize per sliding scale, max of 20 units per day. Pt assistance med dulaglutide (TRULICITY) 1.5 mg/0.5 mL pen injector Inject 1.5 mg subcutaneously every Sunday. Patient assistance medication insulin glargine (LANTUS SOLOSTAR, BASAGLAR KWIKPEN) 100 unit/mL (3 mL) Inject 30 Units subcutaneously every morning. aspirin, enteric coated (ASPIRIN, ENTERIC COATED) 81 mg EC tablet Take 1 tablet by mouth once daily. ciclopirox (LOPROX) 0.77 % susp Apply 1 application to affected area once daily. Okay in skin folds as discussed. Zinc 50 mg tab Take by mouth once daily. cyanocobalamin, vitamin B-12, 5,000 mcg subl Dissolve under the tongue once daily. ascorbic acid, vitamin C, (VITAMIN C) 500 mg tablet Take 1,000 mg by mouth once daily. biotin 5,000 mcg ODT Take 1 tablet by mouth once daily. GLUC PETIT/CHONDRO PETIT A/VIT C/MN (GLUCOSAMINE 1500 COMPLEX ORAL) Take 1 tablet by mouth once daily. Cholecalciferol, Vitamin D3, 50 mcg (2,000 unit) cap Take 1 capsule by mouth once daily. polyethylene glycol 3350 (MIRALAX) 17 gram/dose powder Take 17 g by mouth as directed. nystatin (MYCOSTATIN) powder Apply 1 application to affected area twice daily as needed. For prevention traMADol (ULTRAM) 50 mg tablet Take 1 tablet by mouth twice daily as needed for pain for up to 7 days. Blood-Glucose Meter,Continuous (DEXCOM G7 ENVELOPE SEALER) misc Use to check blood sugar at least four (4) times daily. Blood-Glucose Sensor (DEXCOM G7 SENSOR) jackson Apply new sensor every ten (10) days. blood sugar diagnostic (BLOOD GLUCOSE TEST) test strip Test blood sugar(s) 3 to 4 times daily. Dx: Other DM Code E11.51 Insulin: Yes One touch or Accucheck insulin needles, DISPOSABLE, (PEN NEEDLE) 31 gauge x 5/16 Use one needle per dose. 5 per day. bacitracin zinc 500 unit/gram ointment Apply to affected area twice daily. As directed for affected area till healed Lancets lancets Test blood sugar(s) 3 to 4 times daily. Dx: Other DM Code E11.51 Insulin: Yes No current facility-administered medications for this visit. ALLERGIES Allergen Reactions Meloxicam GI Upset Sulfa (Sulfonamide * Swelling Facial swelling, shortness of breath. ACTIVE PROBLEM LIST Hypertensive Ckd (Chronic Kidney Disease) - 09/21/2022 Moderate Episode of Recurrent Major Depressive Disorder ([facility]) - 04/09/2021 Comment: Exacerbated with ongoing medical issues,financial stressors,etc (see HPI). Muscular Deconditioning Urinary Retention - 07/24/2020 Hx of Bka, Left ([facility]) - 07/20/2020 Type 2 Diabetes Mellitus With Stage 3b Chronic Kidney Disease, With Long-Term Current Use of Insulin ([facility]) - 03/05/2020 Leukocytosis - 12/11/2019 Obesity, Class I, Bmi 30-34.9 - 12/09/2019 Type 2 Diabetes Mellitus With Diabetic Peripheral Angiopathy Without Gangrene, With Long-Term Current Use of Insulin ([facility]) - 01/20/2019 Lichen Sclerosus - 03/19/2018 Diabetic Gastroparesis ([facility]) - 12/26/2017 Functional Dyspepsia - 11/20/2017 Comment: Added automatically from request for surgery [id number] Gastroesophageal Reflux Disease - 11/20/2017 Comment: Added automatically from request for surgery [id number] Recurrent Major Depression in Partial Remission ([facility]) - 11/15/2017 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 ([facility]) - 07/30/2017 Carpal Tunnel Syndrome, Bilateral - 05/04/2016 Essential Hypertension - 02/03/2016 Hyperlipidemia - 02/03/2016 Pvd (Peripheral Vascular Disease) ([facility]) - 02/03/2016 Abnormal Ekg - 02/03/2016 H/O: Stroke - 02/03/2016 Type 2 Diabetes Mellitus With Diabetic Neuropathy, With Long-Term Current Use of Insulin ([facility]) - 12/22/2015 Hemiparesis Affecting Dominant Side As Late Effect of Stroke ([facility]) - 10/15/2014 Dupuytren's Disease of Palm - 10/15/2014 Genital Herpes Simplex Type 1 Infection - 10/15/2014 Anxiety - 10/15/2014 Social History Tobacco Use Smoking status: Never Smokeless tobacco: Never Vaping Use Vaping Use: Never used Substance Use Topics Alcohol use: Yes Comment: Rarely Drug use: No Review of Systems Respiratory: Negative. Cardiovascular: Negative. Musculoskeletal: Positive for arthralgias, back pain, gait problem and myalgias. Negative for joint swelling. OBJECTIVE BP 130/54 Pulse 77 Wt 197 lb (89.4kg) SpO2 96% Physical Exam Vitals and nursing note reviewed. Constitutional: General: She is awake. She is not in acute distress. Appearance: Normal appearance. She is well-developed and well-groomed. She is not ill-appearing, toxic-appearing or diaphoretic. HENT: Head: Normocephalic. Right Ear: External ear normal. Left Ear: External ear normal. Nose: Nose normal. Eyes: General: Lids are normal. Vision grossly intact. Gaze aligned appropriately. Right eye: No foreign body, discharge or hordeolum. Left eye: No foreign body, discharge or hordeolum. Extraocular Movements: Extraocular movements intact. Conjunctiva/sclera: Conjunctivae normal. Right eye: Right conjunctiva is not injected. No exudate. Left eye: Left conjunctiva is not injected. No exudate. Pupils: Pupils are equal, round, and reactive to light. Comments: Few dried crusts to inner corner of eye near tear ducts Neck: Vascular: No JVD. Trachea: Trachea normal. Cardiovascular: Rate and Rhythm: Normal rate and regular rhythm. Pulses: Normal pulses. Heart sounds: Normal heart sounds. No murmur heard. Pulmonary: Effort: Pulmonary effort is normal. No accessory muscle usage, prolonged expiration or respiratory distress. Breath sounds: Normal breath sounds. Musculoskeletal: Cervical back: Neck supple. Right lower leg: No edema. Skin: General: Skin is warm and dry. Capillary Refill: Capillary refill takes less than 2 seconds. Neurological: General: No focal deficit present. Mental Status: She is alert and oriented to person, place, and time. Mental status is at baseline. Psychiatric: Attention and Perception: Attention and perception normal. Mood and Affect: Mood and affect normal. Speech: Speech normal. Behavior: Behavior normal. Behavior is cooperative. Thought Content: Thought content normal. Cognition and Memory: Cognition and memory normal. Judgment: Judgment normal. Diabetic Foot Exam: Right foot:Shoes and socks removed, Are you having foot pain no, No deformities, ulcers, calluses, and normal distal pulses ASSESSMENT/PLAN: 1. Right hip pain - ICD9: 719.45, ICD10: M25.551 (primary diagnosis) Discussed good transfer techniques and body mechanics, can try ice/heat, stretches, tylenol, TENs unit, lidocaine patch with bedtime. IF persistent given her CKD we will avoid NSAIDs and given her DM we will avoid steroids. Can try tramadol PRN. If pain still on going then recommend PT/OT to help with hip strength and transfer techniques. Discussed with patient that although Ultram/tramadol is not a narcotic it does carry the risk of addiction if taken over a long period of time. OARRS report reviewed and prescription is reasonable. Discussed that in addition this medicine can lower the seizure threshold and if patient had any history of seizures or seizure like activity which was not shared with provider today, they should not take this medicine. While taking ultram/tramadol patient was instructed to not drive or operate or be in vicinity of heavy machinery. - CONSULT TO PHYSICAL THERAPY - CONSULT TO MANAGER OFFICE - TRAMADOL 50 MG TABLET 2. Hypertensive chronic kidney disease, unspecified CKD stage - ICD9: 403.90, ICD10: I12.9 - Controlled - Continue current medications - Recommend home blood pressure monitoring, to bring results to next visit - Encouraged sodium restriction, DASH or Mediterranean diet - Recommend regular aerobic exercise 3. Hx of BKA, left (HCC) - ICD9: V49.75, ICD10: Z89.512 - CONSULT TO PHYSICAL THERAPY - CONSULT TO MANAGER OFFICE 4. Obstruction of tear duct of both sides - ICD9: 375.56, ICD10: H04.553 Discussed care. Follow up if not improving in x1 month. 5. Type 2 diabetes mellitus with diabetic neuropathy, with long-term current use of insulin (HCC) - ICD9: 250.60, 357.2, V58.67, ICD10: E11.40, Z79.4 - Controlled - HGB A1C - ALBUMIN/CREAT RATIO RND UR - LIPID PANEL BASIC 6. 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 PVD (peripheral vascular disease) (HCC) - ICD9: 443.9, ICD10: I73.9 8. Mixed hyperlipidemia - ICD9: 272.2, ICD10: E78.2 - LIPID PANEL BASIC 9. Encounter for therapeutic drug monitoring - ICD9: V58.83, ICD10: Z51.81 - MAGNESIUM BLD - HGB A1C - CBC + DIFF - COMP METABOLIC PANEL PDMP website checked and validated. All prescriptions have been APPROPRIATELY filled. No suspicious activity was identified. 06/13/2023 by Rhina Carrasco APRN.CNP Portions of this note have been entered by ancillary staff. I have reviewed and when necessary edited, so that they are an adequate record of my encounter with this patient Please note that parts of this document were created using voice recognition software and therefore may contain grammatical errors. Patient verbalizes understanding of instructions from today's visit and in agreement with treatment plan. Questions answered. Agrees to call the office if questions, concerns of issues with acute symptoms not improving or if they worsen. See diagnoses and orders for additional plan(s). Allergies and medications were reviewed, list was updated, and refills given if needed. Past medical, surgical, social, and family history reviewed and updated as appropriate. Encouraged proper diet & exercise as well as compliance with taking medications. Age-appropriate health preventative measures were discussed. Return if symptoms worsen or fail to improve, for Keep next scheduled appointment.. Rhina Carrasco APRN-BG documented in this encounter [facility] 05-18-2023 Miscellaneous Notes Patient notified Please the patient know that her biopsy shows only lichen sclerosus. She should continue to use the clobetasol twice a day for 2 to 4 weeks and then once a day for 2 weeks then follow by maintenance 2 to 3 days a week. Twyla Bhatia APRN.CNP documented in this encounter [facility] 04-04-2023 Miscellaneous Notes S[place]IO: 12/11/2022 lexapro Last refill: 03/30/2022 QTY: 90 Refills: 3 temovate Last refill: 10/13/2019 QTY: 30 g Refills: 5 documented in this encounter [facility] 01-29-2023 History of Present illness Narrative [facility] Telephonic Outreach Provider Action/FYI Contacted for: Routine Telephonic Outreach Contact made with patient: Yes Patient identified by name and date of . Discussed care with patient Are you experiencing any new or worsening symptoms you need to talk about today? No Disease Specific Do you check your blood pressure at home? No - patient not available to talk at length today Do you have new or worsening shortness of breath with activity? No Based on dispute resolution specialist, the following disposition is advised: No symptoms or symptoms present, not severe. Routed to: No Action Needed LAI Education Provided this Outreach: No Francisca Nelson RN March 22, 2023 1:37 PM [facility] Telephonic Outreach Provider Action/FYI Contacted for: Routine Telephonic Outreach Contact made with patient: No, left message. Francisca Nelson RN March 21, 2023 11:52 AM documented in this encounter [facility] 01-29-2023 History of Present illness Narrative [facility] Telephonic Outreach Provider Action/FYI Talampas, Earl D, MD Patient was prescribed polymyxin eye drops 04/10/23 for bilateral pink eye. Patient has taken drops as prescribed for 7 days. Still has yellow/green goopy drainage with watery irritated eyes. She has some polymyxin medication left Please have your staff reach out to patient with further orders/instructions. Thank you, Kaitlin Nelson RNpin drafting machine operatorGlue Sprayer Follow up on 04/10/23 Express care for pink eye Contacted for: Routine Telephonic Outreach Contact made with patient: Yes Patient identified by name and date of . Discussed care with patient Are you experiencing any new or worsening symptoms you need to talk about today? Yes Based on dispute resolution specialist, the following disposition is advised: No symptoms or symptoms present, not severe. Routed to: No Action Needed LAI Education Provided this Outreach: No Francisca Nelson RN April 19, 2023 9:24 AM documented in this encounter [facility] 01-29-2023 History of Present illness Narrative [facility] Teleonic Outreach Provider Mere/HOPE Patient reports sore on vagina - saw OBGYN this week. Reviewed recommended care of biopsy site. Next [facility] outreach after 06/13/23 INT SHEAR OPERATOR AUTOMATIC COMMUNICABLE DISEASE SPECIALIST appointment(s). Contacted for: Routine Telephonic Outreach Contact made with patient: Yes Patient identified by name and date of . Discussed care with patient Are you experiencing any new or worsening symptoms you need to talk about today? Yes Based on dispute resolution specialist, the following disposition is advised: No symptoms or symptoms present, not severe. Routed to: No Action Needed LAI Education Provided this Outreach: No Francisca Nelson RN May 17, 2023 2:00 PM documented in this encounter [facility] 01-29-2023 History of Present illness Narrative [facility] Telephonic Outreach Provider Mere/HOPE Patient reports congestion, taking OTC mucinex and tylenol since Sunday. No fever - declined need for virtualist. Will make an express care on line or in person visit if symptoms worsen. See Goals for chronic disease education provided at this outreach. Contacted for: Routine Telephonic Outreach Contact made with patient: Yes Patient identified by name and date of . Discussed care with patient Are you experiencing any new or worsening symptoms you need to talk about today? Yes Based on dispute resolution specialist, the following disposition is advised: No symptoms or symptoms present, not severe. Routed to: No Action Needed LAI Education Provided this Outreach: No Francisca Nelson RN July 18, 2023 1:12 PM documented in this encounter [facility] 01-25-2023 History of Present illness Narrative [facility] Telephonic Outreach Provider Action/FYI #2 attempt to contact patient. Contacted for: Routine Telephonic Outreach Contact made with patient: No, left message. Felipe Carranza RN January 25, 2023 10:24 AM documented in this encounter [facility] 01-24-2023 History of Present illness Narrative Prepared injections x2 per Dr. Ritter's order and handed to him. Yana Calderón LPN Associated Order(s): Additional Injections: R long A1; Additional Injections: R ring A1 Post-Procedure Diagnose(s): Trigger ring finger of right hand; Trigger middle finger of right hand TRIGGER FINGER 01/24/2023 : 1955 HISTORY OF CHIEF COMPLAINT: Miriam Thomas is a 67 year old female who is seeing me today for triggering of finger. COMPLAINTS: Triggering of fingers: Right middle finger ring finger DURATION: 2-6 months CHARACTER: Intermittent SEVERITY: Moderate TIMING: During day and All times DAILY ACTIVITIES: moderately PREVIOUS TREATMENT: None PAST MEDICAL HISTORY Diagnosis Date Anxiety Arthritis Depression MARITZA exposure in utero Diabetes mellitus ([facility]) 1986 Diabetic neuropathy ([facility]) Gangrene ([facility]) Heart attack ([facility]) [address] Adalberto Power [place] Herniated disc Hypertension Muscular deconditioning PVD (peripheral vascular disease) ([facility]) 10/2019 S/P BKA (below knee amputation) unilateral, left ([facility]) Sleep apnea cpap Snoring Stroke ([facility]) 11/2004 and 05/2005 x 2, right sided weakness PAST SURGICAL HISTORY Procedure Laterality Date AMPUTATION OF LOWER LEG Left 07/20/2020 L BKA ANESTH,BRACHIAL/FEMORAL ARTERIOGRAM Left 11/04/2019 Left femoral arteriogram with stenting of left superficial femoral artery. Attempted left popliteal artery thromboembolectomy. Left anterior tibial thromboembolectomy @ [facility] by Dr. Zavaleta AORTOGRAM AND LEG RUNOFF 11/04/2019 1. Abdominal aortogram with bilateral selective lower extremity carbon dioxide runoff @ [facility] by Dr Zavaleta DELIVERY ONLY 1980, 1983, 1985 , low transverse, x 3 COLONOSCOPY FLX DX W/COLLJ SPEC WHEN PFRMD 02/17/16 Colonoscopy (MAC) ESOPHAGOGASTRODUODENOSCOPY TRANSORAL DIAGNOSTIC 11/26/2017 EGD ESOPHAGOGASTRODUODENOSCOPY TRANSORAL DIAGNOSTIC 01/14/2018 EGD PAST SURGICAL HISTORY OF last one in 2006 D&C, multiple x4 PAST SURGICAL HISTORY OF Left 2000 ganglion cyst removed left wrist PAST SURGICAL HISTORY OF Bilateral 07/2013 cataracts TRANSMETATARSAL AMPUTATION/O&P Left 12/12/2019 Transmetatarsal amputation with tendoachilles lengthening left lower extremity Social History Tobacco Use Smoking status: Never Smokeless tobacco: Never Vaping Use Vaping Use: Never used Substance Use Topics Alcohol use: Yes Comment: Rarely Drug use: No Medications: Current Outpatient Medications Medication Sig Dispense Refill Blood-Glucose Meter,Continuous (DEXCOM G7 ENVELOPE SEALER) misc Use to check blood sugar at least four (4) times daily. 1 Each 0 Blood-Glucose Sensor (DEXCOM G7 SENSOR) jackson Apply new sensor every ten (10) days. 9 Each 3 alendronate (FOSAMAX) 70 mg tablet Take 1 tablet by mouth one time a week. In AM with cup of water on empty stomach. Nothing else by mouth and stay upright for 30 min. 12 tablet 2 atorvastatin (LIPITOR) 20 mg tablet Take 1 tablet by mouth once daily. 90 tablet 3 carvedilol (COREG) 6.25 mg tablet Take 1 tablet by mouth twice daily with meals. 180 tablet 3 ferrous sulfate 325 mg (65 mg iron) tablet Take 1 tablet by mouth every Sunday,Sunday,Sergei. furosemide (LASIX) 40 mg tablet Take 1 tablet by mouth once daily. 90 tablet 3 gabapentin (NEURONTIN) 400 mg capsule Take 1 capsule by mouth every afternoon AND 2 capsules daily at bedtime. 270 capsule 3 hydrALAZINE (APRESOLINE) 50 mg tablet Take 1 tablet by mouth twice daily. Hold for SBP less than 120mm HG 180 tablet 3 nitroglycerin sublingual (NITROQUICK) 0.4 mg SL tablet Dissolve 1 tablet under the tongue as needed. As directed 25 tablet 1 nystatin (MYCOSTATIN) powder Apply 1 application to affected area twice daily as needed. For prevention [address] (PROTONIX) 40 mg tablet Take 1 tablet by mouth once daily. 90 tablet 3 valACYclovir (VALTREX) 500 mg tablet Take 1 tablet by mouth once daily. May increase to 2 pills twice daily for 5 days as directed for acute outbreaks. 150 tablet 3 blood sugar diagnostic (BLOOD GLUCOSE TEST) test strip Test blood sugar(s) 3 to 4 times daily. Dx: Other DM Code E11.51 Insulin: Yes One touch or Accucheck 50 Strip 11 tamsulosin (FLOMAX) 0.4 mg Take 1 capsule by mouth once daily. 90 capsule 3 buPROPion SR (WELLBUTRIN SR) 150 mg 12 hr tablet Take 1 tablet by mouth every morning. 90 tablet 3 escitalopram oxalate (LEXAPRO) 20 mg tablet Take 1 tablet by mouth once daily. 90 tablet 3 apixaban (ELIQUIS) 5 mg tab(s) Take 1 tablet by mouth twice daily. 180 tablet 3 insulin needles, DISPOSABLE, (PEN NEEDLE) 31 gauge x 5/16 Use one needle per dose. 5 per day. 450 Each 3 bacitracin zinc 500 unit/gram ointment Apply to affected area twice daily. As directed for affected area till healed 28 g 0 cetirizine (ZYRTEC) 10 mg tablet Take 1 tablet by mouth once daily as needed. insulin lispro (HUMALOG KWIKPEN) 100 unit/mL Inject 4 Units subcutaneously three times daily before meals. Utilize per sliding scale, max of 20 units per day. Pt assistance med 5 Pen 2 dulaglutide (TRULICITY) 1.5 mg/0.5 mL pen injector Inject 1.5 mg subcutaneously every Sunday. Patient assistance medication 2 mL 11 insulin glargine (LANTUS SOLOSTAR, BASAGLAR KWIKPEN) 100 unit/mL (3 mL) Inject 30 Units subcutaneously every morning. 15 mL 5 aspirin, enteric coated (ASPIRIN, ENTERIC COATED) 81 mg EC tablet Take 1 tablet by mouth once daily. mupirocin (BACTROBAN) 2 % ointment Apply to affected area once daily. 30 g 1 clotrimazole-betamethasone (LOTRISONE) cream Apply 1 application to affected area twice daily. Avoid skin folds 15 g 1 ciclopirox (LOPROX) 0.77 % susp Apply 1 application to affected area once daily. Okay in skin folds as discussed. 60 mL 1 Lancets lancets Test blood sugar(s) 3 to 4 times daily. Dx: Other DM Code E11.51 Insulin: Yes 100 Each 11 Zinc 50 mg tab Take by mouth once daily. cyanocobalamin, vitamin B-12, 5,000 mcg subl Dissolve under the tongue once daily. ascorbic acid, vitamin C, (VITAMIN C) 500 mg tablet Take 1,000 mg by mouth once daily. clobetasol (TEMOVATE) 0.05 % ointment Apply nightly to affected area for 8-12 weeks, then 1-3x weekly for maintenance 30 g 5 biotin 5,000 mcg ODT Take 1 tablet by mouth once daily. GLUC PETIT/CHONDRO PETIT A/VIT C/MN (GLUCOSAMINE 1500 COMPLEX ORAL) Take 1 tablet by mouth once daily. (Patient not taking: Reported on 12/11/2022) Cholecalciferol, Vitamin D3, 50 mcg (2,000 unit) cap Take 1 capsule by mouth once daily. polyethylene glycol 3350 (MIRALAX) 17 gram/dose powder Take 17 g by mouth as directed. No current facility-administered medications for this visit. ALLERGIES Allergen Reactions Meloxicam GI Upset Sulfa (Sulfonamide * Swelling Facial swelling, shortness of breath. VITALS: There were no vitals taken for this visit. PHYSICAL EXAMINATION: General: No acute distress Psyche: she is alert and oriented and cooperative to our examination Skin: Skin condition is healthy without rashes or erythema. Cadiovascular: she has palpable radial pulse and brisk capillary refill distally. Neck: Supple with no JVD Lymph: There is no palpable epitrochlear or axillary lymphadenopathy Pulmonary: she has non labored breathing. There is no evidence of cyanosis. There is no clubbing of her fingernails. she has no pursed lips. Neuro: she is alert and oriented x3. There are no focal neurologic deficits. Head: Normocephalic and atraumatic Musculoskeletal: Hand: ROM: Full Atrophy: No Echymosis: No Triggering with Flexion- Extension: YES Hypertrophy of A1 dede: YES Synovitis: No Tenderness on palpation: YES Swelling: No Assessment: 1.Trigger middle finger of right hand 2.Trigger ring finger of right hand Plan: I did offer the patient a steroid injection of the Right middle finger and ring finger . I explained the risks, benefits, and potental complications of injection. Patient understands that it may take 3-5 days before experiencing resolution of symptoms and agrees with the plan to proceed. Additional Injections: R long A1 for trigger finger Informed Consent [place] Protocol A moment to CARE was completed. SIGN IN Personnel directly involved with the procedure wore the appropriate PPE. Patient/Surrogate Stated/Verified: Patient name, Date of , Relevant allergies and Intended procedure TIME OUT Relevant labs, photos, and/or imaging studies have been reviewed. Correct side/site marked and visible. Medications required for procedure verified. No implant(s) inserted. 01/24/2023 3:58 PM The procedure site was prepped in the usual sterile fashion. Medications: 40 mg triamcinolone acetonide 40 mg/mL Anesthetics: 1 mL lidocaine (PF) 10 mg/mL (1 %) Outcome: tolerated well, no immediate complications Post-injection instructions were reviewed with the patient and the patient voiced understanding of these instructions. SIGN OUT All instruments, equipment, possible retained foreign bodies accounted for. Additional Injections: R ring A1 for trigger finger Informed Consent [place] Protocol A moment to CARE was completed. SIGN IN Personnel directly involved with the procedure wore the appropriate PPE. Patient/Surrogate Stated/Verified: Patient name, Date of , Relevant allergies and Intended procedure TIME OUT Relevant labs, photos, and/or imaging studies have been reviewed. Correct side/site marked and visible. Medications required for procedure verified. No implant(s) inserted. 01/24/2023 3:58 PM The procedure site was prepped in the usual sterile fashion. Medications: 40 mg triamcinolone acetonide 40 mg/mL Anesthetics: 1 mL lidocaine (PF) 10 mg/mL (1 %) Outcome: tolerated well, no immediate complications Post-injection instructions were reviewed with the patient and the patient voiced understanding of these instructions. SIGN OUT All instruments, equipment, possible retained foreign bodies accounted for. Scribe Attestation: By signing my name below, I, Lola Conti MA, attest that this documentation has been prepared under the direction and in the presence of Moiz Ritter Jr., MD. Electronically Signed: Lola Conti MA, Scribe. January 24, 2023 3:03 PM. Clinician Attestation Statement: The information in this document, created by the medical editor for me, accurately reflects the services I personally performed and the decisions made by me. I have reviewed and approved this document for accuracy. Moiz Ritter MD Please note: This note has been produced using speech recognition software and may contain errors related to that system including grammar, punctuation, spelling, gender and words and phrases that may be inappropriate. documented in this encounter [facility] 01-02-2023 Miscellaneous Notes PATIENT NOTIFIED OF SAME. Please let her know I sent in for the Fosamax and the dexcom. She should make sure to take the fosamax on an empty stomach with a full glass of water and should not lay down for at least 30 minutes after taking it. Pt called in and reports she called her insurance on a couple things. She states for the Osteoporosis they will cover the Fosamax if the provider uses the generic form and only in tablet. She said she has talked with the provider about getting a Dexcom before. Her insurance said they will deny it, then require the provider to sign something and then they will consider it. I'm not sure if the provider would want to send in for the Dexcom 6 or 7. documented in this encounter [facility] 01-01-2023 Miscellaneous Notes Spoke with pt and information listed below given. Pt verbalizes understanding. Pt will check into the Fosamax with her insurance and let you know. Elana Paredes LPN PCP visit 12/11/2022. Bone density test shows osteoporosis. Continue with 1200 mg of calcium through diet or supplement daily, continue taking 2000 IU vitamin D3 daily and routine weight bearing exercise as able. Consider treatment of osteoporosis with medication such as fosamax if not already doing so. Pt calling for bone density test. Elana Paredes LPN documented in this encounter [facility] 12-27-2022 History of Present illness Narrative [facility] TELEPHONIC OUTREACH Provider Action/FYI: Contact made with patient. No new concerns or complaints related to chronic disease management. Patient with occasional stuffiness relieved with cetirizine. Patient asking if she needs to take the medication every day. Medication reviewed and is ordered prn. Patient advised can take when symptomatic. Patient also for the last months has had a few occasions where she will be straining to have a bowel movement and has felt lightheaded. She has only experienced the lightheadedness when constipated and has to bear down. Educated in regards to vagal stimulation that can occur when bearing down. Patient takes Miralax daily but sometimes will skip a dose which results in constipation. Patient will take her Miralax daily to see if that prevents constipation in the future. Contact made with patient: Yes Patient identified by name and . Discussed care with patient It s nice talking to you again. As a reminder, this is our monthly check-in where I will be asking you questions about your health. This will only take a few minutes of your time. Is this a good time? Yes Symptoms What Chronic Disease(s) does the patient have: CKD Do you check your blood pressures at home? Yes, Enter readings: periodically 130/60 Do you have new or worse shortness of breath with activity? No Do you feel like you are dehydrated for any reason, including not being able to eat or drink normally, or having less urine/much darker urine than normal for you? No Do you check your daily weight at home? No Are you having any other symptoms that your PCP needs to know about? No Symptom Escalation LAI Education Ordered -: No The patient required an escalation for symptom(s)? No Medications Do you have any questions about taking your medication or which medications you should be on? No Do you need any medication refills at this time, including any of the medications you might take only when needed? No Social We would like to make sure you have what you need so that your basic needs are met- including your personal safety, food, housing, transportation and medications? Would you like to speak with a social work meat service team member to help give you support for any of these needs? No It can be normal to feel anxious or down during a time like this. Would you like to talk to a mental health professional about how you have been feeling? No Closing Thank you for taking the time to talk with me today. We want to work with you to ensure that we are keeping your medical condition(s) well-controlled and to keep you healthy and out of the doctor's office or hospital. It s also not too late for me to sign you up for automated weekly questionnaires through [employer]. This is an easy way for us to stay connected each week. Are you interested? No, I understand. We can always sign you up in the future if you change your mind. Just as a reminder, will continue to call you every other week to check in on your health. Our calls should take 10-15 minutes or less. Remember, if you have concerns in between our calls, please call your PCP's office right away. Thank you. Enter next patient outreach date for two weeks on the same day of the week as today in the Track Pt Outreach and End outreach. documented in this encounter [facility] 12-26-2022 History of Present illness Narrative INSIGHT CDM TELEPHONIC OUTREACH Provider Action/FYI: #1 attempt to contact patient. Unable to contact. Left message on voicemail. Contact made with patient: No - Left message Bam my name is Felipe Carranza RN your Box Sealing Machine Catcher from the [facility] I am calling today for your bi-weekly check in. I am sorry I missed your call. I will reach out to you again tomorrow. Enter next patient outreach date for the following business day using the Track Pt Outreach. End outreach. documented in this encounter [facility] 12-18-2022 History of Present illness Narrative Radiology Service Progress Note PATIENT NAME: Miriam Thomas DATE OF SERVICE: December 18, 2022 TIME: 12:57 PM PATIENT IDENTITY VERIFICATION COMPLETED USING TWO (2) IDENTIFIERS: Name and Date of confirmed by patient verbally. FALL SCREENING: Has the patient had 2 falls in the last year or 1 fall with injury or currently using an Ambulatory Assistive Device (Walker, Cane, Wheelchair, Crutches, etc.)? No PATIENT GENDER DATA: Female. status: : No status: NO. PATIENT RELEVANT IMPLANT DATA REVIEWED: Not Applicable RADIOLOGY DEPARTMENT: Bone Density PERIPHERAL IV DATA: Not applicable SIGNED BY: RT Chio(R) December 18, 2022 12:57 PM documented in this encounter [facility] 12-18-2022 Miscellaneous Notes Osteoporosis documented in this encounter [facility] 12-11-2022 Instructions Earl Shepherd MD - 12/11/2022 4:18 PM EDT Since you get 2 to 3 cans of sparkling water (12 ounces each), work on getting 3 to 4 per day. Okay 2 cups of coffee. Try to be consistent with fluid intake at least 6 cups of fluids per day. Try to get soup in several days a week. Can try tapering Wellbutrin in the sprin every other day for a week then stop. If any problems with depression symptoms coming back, may slow taper more (1 every 3 days) then stop. May resume med at anytime, like in the winter. Can decrease Lexapro to 10 mg after tapered down or off the Wellbutrin. After about a week, can try every other day for a week then stop after that. If need to take every 3 days for a week or two, okay. May resume at anytime. BONE MINERAL DENSITY PATIENT INSTRUCTIONS ======== Bone mineral density testing measures the amount of calcium in certain parts of your bones. This information determines how strong your bones are. The test is used to detect osteoporosis, a disease in which the bone's mineral content and density are low, increasing a person's risk of fractures. The lumbar spine (lower back) and the hip are the skeletal sites usually examined. For the test, remember that: 1. You cannot take this test if you are . 2. Eat a normal diet on the day of the test. 3. Take your medications as you normally would. 4. DO NOT take calcium supplements (such as Tums) for 24 hours before the test. 5. On the day of the test, leave valuables (jewelry or credit cards) at home. 6. The test should be performed prior to oral, rectal or IV contrast studies, or at least 7 days after any of these studies. For the test, you may be asked to wear a hospital gown. You will lie on your back, on a padded table, in a comfortable position. Generally, you can resume your usual activities immediately. documented in this encounter [facility] 12-11-2022 History of Present illness Narrative This note was created using [employer]. Subjective Miriam Thomas is a 67 year old female. Patient presents with: F/U 6 months SUBJECTIVE: Miriam Thomas is a 67 year old year old lady here today for 6 month follow up appointment for review of medical conditions. Working on getting more fluids. 3 to 4 --12 ounce cans of carbonated water. 2 cups of coffee. Had backed off insulin so not getting to low. Gets protein at night. Last low in 70s was last August. Highest sugar in past month. 297--this is rare. Sinusitis symptoms October and November. Just treats symptoms. with cetirizine. Interested in CGM for DM management. Small bump (pea sized) near perineum on labia minora posteriorly on left side. Sometimes bleeds. Does not have current OFFICE RN. Used to follow with Dr. Han and also saw Felicitas Smith when at [email or web address] Doing well with depression symptoms. Would like to see if can go without during summer. Discussed waiting till days longer so has more sunshine. Working on completing mokonoPOA and LW--Spouse is her mokonoPOA. PAST MEDICAL HISTORY Diagnosis Date Anxiety Arthritis Depression MARITZA exposure in utero Diabetes mellitus ([facility]) 1986 Diabetic neuropathy ([facility]) Gangrene ([facility]) Heart attack ([facility]) [address] [facility] Herniated disc Hypertension Muscular deconditioning PVD (peripheral vascular disease) ([facility]) 10/2019 S/P BKA (below knee amputation) unilateral, left ([facility]) Sleep apnea cpap Snoring Stroke ([facility]) 11/2004 and 05/2005 x 2, right sided weakness Current Outpatient Medications Medication Sig blood sugar diagnostic (BLOOD GLUCOSE TEST) test strip Test blood sugar(s) 3 to 4 times daily. Dx: Other DM Code E11.51 Insulin: Yes One touch or Accucheck pantoprazole DR (PROTONIX) 40 mg tablet Take 1 tablet by mouth once daily. tamsulosin (FLOMAX) 0.4 mg Take 1 capsule by mouth once daily. nystatin (MYCOSTATIN) powder Apply 1 application to affected area twice daily as needed. For prevention carvedilol (COREG) 6.25 mg tablet Take 1 tablet by mouth twice daily with meals. buPROPion SR (WELLBUTRIN SR) 150 mg 12 hr tablet Take 1 tablet by mouth every morning. escitalopram oxalate (LEXAPRO) 20 mg tablet Take 1 tablet by mouth once daily. hydrALAZINE (APRESOLINE) 50 mg tablet Take 1 tablet by mouth twice daily. Hold for SBP less than 120mm HG furosemide (LASIX) 40 mg tablet Take 1 tablet by mouth once daily. valACYclovir (VALTREX) 500 mg tablet Take 1 tablet by mouth once daily. May increase to 2 pills twice daily for 5 days as directed for acute outbreaks. insulin needles, DISPOSABLE, (PEN NEEDLE) 31 gauge x 5/16 Use one needle per dose. 5 per day. bacitracin zinc 500 unit/gram ointment Apply to affected area twice daily. As directed for affected area till healed atorvastatin (LIPITOR) 20 mg tablet Take 1 tablet by mouth once daily. cetirizine (ZYRTEC) 10 mg tablet Take 1 tablet by mouth once daily as needed. insulin lispro (HUMALOG KWIKPEN) 100 unit/mL Inject 4 Units subcutaneously three times daily before meals. Utilize per sliding scale, max of 20 units per day. Pt assistance med dulaglutide (TRULICITY) 1.5 mg/0.5 mL pen injector Inject 1.5 mg subcutaneously every Sunday. Patient assistance medication insulin glargine (LANTUS SOLOSTAR, BASAGLAR KWIKPEN) 100 unit/mL (3 mL) Inject 30 Units subcutaneously every morning. ferrous sulfate 325 mg (65 mg iron) tablet Take 1 tablet by mouth once daily. nitroglycerin sublingual (NITROQUICK) 0.4 mg SL tablet Dissolve 0.4 mg under the tongue as needed. As directed aspirin, enteric coated (ASPIRIN, ENTERIC COATED) 81 mg EC tablet Take 1 tablet by mouth once daily. gabapentin (NEURONTIN) 400 mg capsule Take 1 capsule by mouth every morning AND 3 capsules daily at bedtime. mupirocin (BACTROBAN) 2 % ointment Apply to affected area once daily. clotrimazole-betamethasone (LOTRISONE) cream Apply 1 application to affected area twice daily. Avoid skin folds Lancets lancets Test blood sugar(s) 3 to 4 times daily. Dx: Other DM Code E11.51 Insulin: Yes Zinc 50 mg tab Take by mouth once daily. cyanocobalamin, vitamin B-12, 5,000 mcg subl Dissolve under the tongue once daily. ascorbic acid, vitamin C, (VITAMIN C) 500 mg tablet Take 1,000 mg by mouth once daily. clobetasol (TEMOVATE) 0.05 % ointment Apply nightly to affected area for 8-12 weeks, then 1-3x weekly for maintenance biotin 5,000 mcg ODT Take 1 tablet by mouth once daily. Cholecalciferol, Vitamin D3, 50 mcg (2,000 unit) cap Take 1 capsule by mouth once daily. polyethylene glycol 3350 (MIRALAX) 17 gram/dose powder Take 17 g by mouth as directed. apixaban (ELIQUIS) 5 mg tab(s) Take 1 tablet by mouth twice daily. (Patient not taking: Reported on 12/11/2022) apixaban (ELIQUIS) 5 mg tab(s) Take 1 tablet by mouth twice daily. oxyCODONE IR (ROXICODONE) 5 mg immediate release tablet Take 1 tablet by mouth every 4 hours as needed. (Patient not taking: Reported on 12/11/2022) ciclopirox (LOPROX) 0.77 % susp Apply 1 application to affected area once daily. Okay in skin folds as discussed. GLUC PETIT/CHONDRO PETIT A/VIT C/MN (GLUCOSAMINE 1500 COMPLEX ORAL) Take 1 tablet by mouth once daily. (Patient not taking: Reported on 12/11/2022) No current facility-administered medications for this visit. Review of Systems Objective BP 122/64 Pulse 76 Temp 36.3 C (97.3 F) Resp 18 SpO2 99% Physical Exam Constitutional: Appearance: Normal appearance. HENT: Head: Normocephalic. Eyes: Conjunctiva/sclera: Conjunctivae normal. Cardiovascular: Rate and Rhythm: Normal rate and regular rhythm. Heart sounds: Normal heart sounds. Pulmonary: Effort: Pulmonary effort is normal. Breath sounds: Normal breath sounds. Musculoskeletal: Right lower leg: No edema. Skin: General: Skin is warm and dry. Neurological: General: No focal deficit present. Mental Status: She is alert and oriented to person, place, and time. Psychiatric: Mood and Affect: Mood normal. Behavior: Behavior normal. Thought Content: Thought content normal. Judgment: Judgment normal. Assessment and Plan Encounter Diagnosis ICD-10-CM 1. Type 2 diabetes mellitus with stage 3b chronic kidney disease, with long-term current use of insulin (HCC) E11.22 N18.32 Z79.4 2. Moderate episode of recurrent major depressive disorder (HCC) F33.1 Exacerbated with ongoing medical issues,financial stressors,etc (see HPI). 3. Essential hypertension I10 carvedilol (COREG) 6.25 mg tablet hydrALAZINE (APRESOLINE) 50 mg tablet 4. Hemiparesis affecting dominant side as late effect of stroke (HCC) I69.359 carvedilol (COREG) 6.25 mg tablet furosemide (LASIX) 40 mg tablet 5. Gastroesophageal reflux disease without esophagitis K21.[address] (PROTONIX) 40 mg tablet 6. Genital herpes simplex type 1 infection A60.00 valACYclovir (VALTREX) 500 mg tablet Needed refill for med; effective for suppression. 7. Asymptomatic postmenopausal status Z78.0 DXA-AXIAL SKELETON Above issues addressed with patient. Patient involved in shared decision making for management of medical issues. History and medications reviewed. Epic updated as needed Refills and/or prescriptions taken care of and meds adjusted as indicated after reviewed history, exam and labs. Health Maintenance reviewed. Updated record and/or ordered tests as recorded. Encouraged on efforts at healthy diet and regular exercise and adequate sleep. She will let me know which CGM is covered with her insurance and which durable medical supplier. I spent a total of 51 minutes on the date of the service which included [id number] patient care, completing clinical documentation, obtaining and/or reviewing separately obtained history, performing a medically appropriate examination, counseling and educating the patient/family/caregiver, and ordering medications, tests, or procedures. Earl Shepherd MD documented in this encounter [facility] 12-07-2022 Miscellaneous Notes ok Patient is here to have labs done and orders have . New lab order pending if appropriate. documented in this encounter [facility] 11-13-2022 History of Present illness Narrative INSIGHT CDM TELEPHONIC OUTREACH Provider Action/FYI: No new concerns/complaints r/t chronic disease management Contact made with patient: Yes Patient identified by name and . Discussed care with patient It s nice talking to you again. As a reminder, this is our bi-weekly check-in where I will be asking you questions about your health. This will only take a few minutes of your time. Is this a good time? Yes Symptoms What Chronic Disease(s) does the patient have: CKD Do you check your blood pressures at home? No Do you have new or worse shortness of breath with activity? No Do you feel like you are dehydrated for any reason, including not being able to eat or drink normally, or having less urine/much darker urine than normal for you? No Do you check your daily weight at home? No Are you having any other symptoms that your PCP needs to know about? No Symptoms: Symptom Escalation LAI Education Ordered -: No The patient required an escalation for symptom(s)? No Medications Do you have any questions about taking your medication or which medications you should be on? No Do you need any medication refills at this time, including any of the medications you might take only when needed? No Social We would like to make sure you have what you need so that your basic needs are met- including your personal safety, food, housing, transportation and medications? Would you like to speak with a social work meat service team member to help give you support for any of these needs? No It can be normal to feel anxious or down during a time like this. Would you like to talk to a mental health professional about how you have been feeling? No Closing Thank you for taking the time to talk with me today. We want to work with you to ensure that we are keeping your medical condition(s) well-controlled and to keep you healthy and out of the doctor's office or hospital. It s also not too late for me to sign you up for automated weekly questionnaires through [employer]. This is an easy way for us to stay connected each week. Are you interested? No, I understand. We can always sign you up in the future if you change your mind. Just as a reminder, will continue to call you every other week to check in on your health. Our calls should take 10-15 minutes or less. Remember, if you have concerns in between our calls, please call your PCP's office right away. Thank you. Enter next patient outreach date for two weeks on the same day of the week as today in the Track Pt Outreach and End outreach. INSIGHT CDM TELEPHONIC OUTREACH Provider Action/FYI: Contact made with patient: No - Left message Nellygabbi my name is Alexandre Douglas RN your Box Sealing Machine Catcher from the [facility] I am calling today for your bi-weekly check in. I am sorry I missed your call. I will reach out to you again tomorrow. (if the third call I will reach out to you again next week) Enter next patient outreach date for the following day using the Track Pt Outreach. End outreach. documented in this encounter [facility] 11-07-2022 Miscellaneous Notes Patient has been identified by name and date of : Yes, Patient phones for refill(s): Requested Prescriptions Pending Prescriptions Disp Refills blood sugar diagnostic (BLOOD GLUCOSE TEST) test strip 50 Strip 11 Sig: Test blood sugar(s) 3 to 4 times daily. Dx: Other DM Code E11.51 Insulin: Yes One touch or Accucheck Date of last office visit in primary care: 10/12/2021 6 month follow-up: 12/11/2022 Last 2 Encounter Wt Readings: Date: Wt: 11/09/2021 78.9 kg (174 lb) 10/27/2021 78.9 kg (174 lb) Previous labs/tests for medication: Diabetes: Hemoglobin A1C (%) Date Value 05/09/2021 5.4 06/09/2020 6.3 Please advise. Thank you. Didi Chawla LPN documented in this encounter [facility] 10-19-2022 History of Present illness Narrative inSight CDM Escalation Follow Up Action/FYI: Mychart message sent Contact made with patient: Left Message: My name is Alexandre Douglas RN, from the [facility]. I am calling regarding your recent visit with our Virtual Provider. Sorry that I am not able to speak with you. If you have a problem that needs to addressed by your Physician, please contact your Primary Care Provider's office. - END OUTREACH inSight CDM Escalation Follow Up Action/FYI: Contact made with patient: Left Message: My name is Alexandre Douglas RN, from the [facility]. I am calling regarding your recent visit with our Virtual Provider. Sorry that I am not able to speak with you. If you have a problem that needs to addressed by your Physician, please contact your Primary Care Provider's office. - END OUTREACH documented in this encounter [facility] 10-19-2022 Miscellaneous Notes Consult received for Urgent Dispatch, however, patient resides outside of service territory. Discussed with referring provider. Spoke to patient and offered appointment with a provider at [facility] today at 9:40am. Patient states she is unsure if she will be able to attend appointment, but will reach out to discuss with PCP office if that is the case. [facility] Transitional Care Program - Intake Template - for interface Date Referral Received: 10/18/2022 Referral Source: CC Physician office TC Program: UD - Other [facility] Discharge Date: na TCM RN Name: na Date of : 1955 Age: [age] year old PCP: Earl Shepherd MD Visit address from [facility]: [address] [place], [place] [id number] Name of Physician who gave the order: Maria Guadalupe Barlow mD Other services ordered: None Primary Insurance Company: Payor: [employer] / Plan: [employer] HMO / Product Type: HMO / Primary Insurance ID Number: [id number] documented in this encounter [facility] 10-18-2022 History of Present illness Narrative Virtualist Distance Health Note (CDM/TCM//CC HC/H@[facility] escalations) Miriam Thomas has consented to this telephone encounter. Persons Present: patient Triage source: Chronic Disease Management Contacted by phone, [employer], Google Duo, Zoom, Doximity, other: phone History of present illness: 67 yo F CC stuffed up HPI since around October 07, over a week taking mucinex and tylenol which works for a few hours then symptoms come no cough, except for occasional drainage in throat a little bit of sputum. white sputum, nonsmoker no flu or covid shots no fever no nausea. vomiting, diarrhea one night was sweaty no temp taken no recent sweatiness no chest pain no SOB no chest pain is a diabetic, had a stroke with some residual weakness on right arm, but is getting better has HTN, is on meds for HTN, has been 160-180 and usually 105 -112 no pulse ox diabetes since age 37 BG have been 150 to 190, normal is 109-112 no UTI symptoms is urinating Past medical history, past surgical history, family history and social history reviewed and updated as indicated in EMR. Past Medical History PAST MEDICAL HISTORY Diagnosis Date Anxiety Arthritis Depression MARITZA exposure in utero Diabetes mellitus ([facility]) 1986 Diabetic neuropathy ([facility]) Gangrene ([facility]) Heart attack ([facility]) [address] [employer] [place] Herniated disc Hypertension Muscular deconditioning PVD (peripheral vascular disease) ([facility]) 10/2019 S/P BKA (below knee amputation) unilateral, left ([facility]) Sleep apnea cpap Snoring Stroke ([facility]) 11/2004 and 05/2005 x 2, right sided weakness REVIEW OF SYSTEMS: Review of Systems see hpi VITAL SIGNS: (if available) There were no vitals taken for this visit. Physical Exam (if video visit was performed) Physical Exam Assessment/Plan: HTN, DM, hyperglycemia, ?sinusitis Plan UD to check BP, BG, etc check BUN/creatinine to see if worsening renal function is causing elevated BP Disposition: Consult to Urgent Dispatch was ordered: Specialty Area: Consult from Virtualist team History of Present Illness: see hpi Disposition:Sending FAISAL Interventions Recommended by Ordering Provider: check BG, BP, adjust meds?, check for infection as cause of high BG and high BP A total of 16 minutes was spent providing medical care using telemedicine. Signed in as Primary Virtualist, Secondary Virtualist, or [facility] Telehealth provider: Primary SIGNATURE: Maria Guadalupe Barlow MD PATIENT NAME: Miriam Thomas DATE: October 18, 2022 documented in this encounter [facility] 09-11-2022 History of Present illness Narrative INSIGHT CDM TELEPHONIC OUTREACH Provider Action/FYI: States she developed a little cough the last couple of days States cough is intermittently productive w/whitish sputum States she has taken zyrtec the last couple of nights Denies any SOB or other symptoms Advised of fasting labs and reminded of upcoming appt with pcp Contact made with patient: Yes Patient identified by name and . Discussed care with patient It s nice talking to you again. As a reminder, this is our bi-weekly check-in where I will be asking you questions about your health. This will only take a few minutes of your time. Is this a good time? Yes Symptoms What Chronic Disease(s) does the patient have: CKD Do you check your blood pressures at home? No Do you have new or worse shortness of breath with activity? No Do you feel like you are dehydrated for any reason, including not being able to eat or drink normally, or having less urine/much darker urine than normal for you? No Do you check your daily weight at home? No Are you having any other symptoms that your PCP needs to know about? No Symptom Escalation The patient required an escalation for symptom(s)? No Medications Do you have any questions about taking your medication or which medications you should be on? No Do you need any medication refills at this time, including any of the medications you might take only when needed? No Social We would like to make sure you have what you need so that your basic needs are met- including your personal safety, food, housing and medications? Would you like to speak with a social work meat service team member to help give you support for any of these needs? No It can be normal to feel anxious or down during a time like this. Would you like to talk to a mental health professional about how you have been feeling? No Closing Thank you for taking the time to talk with me today. We want to work with you to ensure that we are keeping your medical condition(s) well-controlled and to keep you healthy and out of the doctor's office or hospital. It s also not too late for me to sign you up for automated weekly questionnaires through [employer]. This is an easy way for us to stay connected each week. Are you interested? No, I understand. We can always sign you up in the future if you change your mind. Just as a reminder, will continue to call you every other week to check in on your health. Our calls should take 10-15 minutes or less. Remember, if you have concerns in between our calls, please call your PCP's office right away. Thank you. Enter next patient outreach date for two weeks on the same day of the week as today in the Track Pt Outreach and End outreach. documented in this encounter [facility] 09-11-2022 Miscellaneous Notes a. Drug: Trulicity,Basaglar, and Humalog b. Vp Biology name:[employer] c. Submitted by Saundra Johnson via Fax d. Date:09/11/22 Patient spoke with FABY and will drop off HIPPA form today for SW. Faby notes that Sunday morning SW will fax total [employer] Patient Assistance application to [employer] for patient insulins. Sw left 2nd message asking for patient to return call regarding HIPPA release form for patient assistance forms. Faby has received prescriber portion of [employer] application from Dr. Shepherd. Faby has not received patient HIPPA form yet to send [employer] application to [employer]. Faby called patient to see if she was going to be dropping off HIPPA form soon. Left message for patient to call Faby back to discuss. Sw spoke with patient regarding [employer] patient assistance forms. Patient will need to sign HIPPA form to submit forms. Sw will mail HIPPA form to patient home. Patient notes that she will complete and have spouse drop off to the clinic for SW. Patient asking that Dr. Shepherd sign application forms for help with her Trulicity, Basaglar, and Humalog. Sw will take forms up to Dr. Shepherd to have her complete the prescription pages for above medications. [facility] then requests that forms be sent back to [employer] to await HIPPA form. Once Sw receives HIPPA form Sw will fax [place] application to [employer]. Patient also asking for assistance with Eliquis. Eliquis is through [employer]. [facility] does have 3% out of pocket on prescription requirement. Patient notes that she will check with [employer] to see if she is eligible to apply right now or if they say that she will need to apply beginning of next year. documented in this encounter [facility] 08-09-2022 Miscellaneous Notes Patient has been identified by name and date of : Yes Patient - notified for CDM outreach If there are any questions regarding this prescription request, call at home at: [phone] (home) [phone] (cell) RX INSTRUCTIONS: Patient aware RX will be sent to pharmacy. No need to notify patient. Date of last refill: Date of last office visit: [place] 10/12/21 Date of last [facility] visit: Visit date not found Date of future office visit: 08/15/22 Requested Prescriptions No prescriptions requested or ordered in this encounter Prescriptions are usually addressed within 24-48 business hours. If patient states they cannot wait 24-48 business hours, please document details. Last 2 Encounter Wt Readings: Date: Wt: 11/09/2021 78.9 kg (174 lb) 10/27/2021 78.9 kg (174 lb) Last 2 Encounter BP Readings: Date: BP: 10/12/2021 132/62 10/05/2020 130/70 CMP: Glucose 69 05/09/2021 BUN 33 05/09/2021 Creatinine 1.77 05/09/2021 Sodium (I-STAT) 142 05/09/2021 Potassium (I-STAT) 4.5 05/09/2021 Chloride 105 05/09/2021 CO2 26 05/09/2021 Protein, Total 6.9 05/09/2021 Albumin 3.9 05/09/2021 Calcium, Total 10.4 05/09/2021 Alkaline Phosphatase 72 05/09/2021 Bilirubin, Total 0.2 05/09/2021 AST 18 05/09/2021 ALT 22 05/09/2021 Cholesterol, Total (mg/dL) Date Value 09/20/2020 145 05/31/2019 198 HDL Cholesterol (mg/dL) Date Value 09/20/2020 51 05/31/2019 54 LDL Cholesterol (mg/dL) Date Value 09/20/2020 71 05/31/2019 91 Triglyceride (mg/dL) Date Value 09/20/2020 114 05/31/2019 263 TSH Date Value Ref Range Status 12/26/2017 3.140 0.400 - 5.500 uU/mL Final Hemoglobin A1C (%) Date Value 05/09/2021 5.4 Hemoglobin (g/dL) Date Value 05/09/2021 9.9 Hematocrit (%) Date Value 05/09/2021 32.9 WBC (k/uL) Date Value 05/09/2021 7.52 Platelet Count (k/uL) Date Value 05/09/2021 255 Alexandre Thomas RN documented in this encounter [facility] 08-07-2022 History of Present illness Narrative Radiology Service Progress Note PATIENT NAME: Miriam Thomas DATE OF SERVICE: August 07, 2022 TIME: 1:53 PM PATIENT IDENTITY VERIFICATION COMPLETED USING TWO (2) IDENTIFIERS: Name and Date of confirmed by patient verbally. FALL SCREENING: Has the patient had 2 falls in the last year or 1 fall with injury or currently using an Ambulatory Assistive Device (Walker, Cane, Wheelchair, Crutches, etc.)? No PATIENT GENDER DATA: Female. status: : No status: NO. PATIENT RELEVANT IMPLANT DATA REVIEWED: Not Applicable RADIOLOGY DEPARTMENT: Mammography PERIPHERAL IV DATA: Not applicable SIGNED BY: Desiree Maxwell [email or web address] August 07, 2022 1:53 PM documented in this encounter [facility] 08-07-2022 Miscellaneous Notes Pt reports the order for mail-in is just being processed and pt was advised it could take 10-14 days to process. Pt is asking for short term rx to go to [facility]. Patient has been identified by name and date of : Yes Requested Prescriptions Pending Prescriptions Disp Refills apixaban (ELIQUIS) 5 mg tab(s) 28 tablet 0 Sig: Take 1 tablet by mouth twice daily. RX INSTRUCTIONS: Patient aware RX will be sent to pharmacy. No need to notify patient. Justyna Stewart LPN documented in this encounter [facility] 08-07-2022 History of Present illness Narrative [facility] CD[facility] TELEPHONIC OUTREACH Provider Action/FYI: Having problems with prosthesis and will calling Gene from [employer] to assist PSS - please call and schedule annual Wellness visit w/pcp [place] 10/12/21 Refills requested and pended for pcp approval in TE Contact made with patient: Yes Patient identified by name and . Discussed care with patient It s nice talking to you again. As a reminder, this is our bi-weekly check-in where I will be asking you questions about your health. This will only take a few minutes of your time. Is this a good time? Yes Symptoms What Chronic Disease(s) does the patient have: CKD Do you check your blood pressures at home? No Do you have new or worse shortness of breath with activity? No Do you feel like you are dehydrated for any reason, including not being able to eat or drink normally, or having less urine/much darker urine than normal for you? No Do you check your daily weight at home? No Are you having any other symptoms that your PCP needs to know about? No Symptom Escalation The patient required an escalation for symptom(s)? No Medications Do you have any questions about taking your medication or which medications you should be on? No Do you need any medication refills at this time, including any of the medications you might take only when needed? Yes Social We would like to make sure you have what you need so that your basic needs are met- including your personal safety, food, housing and medications? Would you like to speak with a social work meat service team member to help give you support for any of these needs? No It can be normal to feel anxious or down during a time like this. Would you like to talk to a mental health professional about how you have been feeling? No Closing Thank you for taking the time to talk with me today. We want to work with you to ensure that we are keeping your medical condition(s) well-controlled and to keep you healthy and out of the doctor's office or hospital. It s also not too late for me to sign you up for automated weekly questionnaires through [employer]. This is an easy way for us to stay connected each week. Are you interested? No, I understand. We can always sign you up in the future if you change your mind. Just as a reminder, will continue to call you every other week to check in on your health. Our calls should take 10-15 minutes or less. Remember, if you have concerns in between our calls, please call your PCP's office right away. Thank you. Enter next patient outreach date for two weeks on the same day of the week as today in the Track Pt Outreach and End outreach. documented in this encounter [facility] 07-24-2022 History of Present illness Narrative POPULATION HEALTH NAVIGATION OUTREACH Action/I left message to call me back to schedule follow up pended HGBa1c please sign and add any other orders send back to me I will let patient know to get left message to call me back to schedule follow up my chart message sent with [employer] Pt identified by name and : NO Outreach Outcome/Action Unable to reach patient: Left message [employer] message sent Did you use a PCP flex slot to schedule this appointment? N/A Reason for Outreach Care Gap or Scheduling/Wellness visits Payer: Payor: [employer] / Plan: [employer] [place] HMO / Product Type: HMO / Care Gap Reviewed:: Follow-up appointment Breast Cancer screening Controlling Blood Pressure Diabetic Eye Exam HBA1C Flu vaccine Reminder: Reminder note to check Health Maintenance for items below Health Maintenance items due: COVID-19 VACCINE(1) Never done HIV SCREENING Never done PNEUMOCOCCAL: 65+(2 - PCV) due on 10/01/2005 DTAP,TDAP,TD(2 - Td or Tdap) due on 10/01/2018 DILATED RETINAL EXAM due on 08/11/2021 LDL CHOLESTEROL due on 09/20/2021 MAMMOGRAM due on 10/13/2021 HBA1C due on 11/09/2021 DIABETIC FOOT EXAM due on 12/10/2021 BONE DENSITY Never done ADVANCE DIRECTIVE DISCUSSION Never done BP CONTROLLED (<130/80) due on 03/28/2022 SERUM CREATININE due on 05/09/2022 HEMOGLOBIN/HEMATOCRIT due on 05/09/2022 INFLUENZA(1) due on 06/01/2022 Message Sent to Practice: No Navigation Signature: Alexia Chavira MA July 24, 2022 9:11 AM documented in this encounter [facility] 07-20-2022 History of Present illness Narrative [facility] TELEPHONIC OUTREACH Provider Action/FYI: Left a message to verify new or worsening CKD or other symptoms or needs. Contact made with patient: No - Left message Nellylo my name is Stan Alexandra RN your Box Sealing Machine Catcher from the [facility] I am calling today for your bi-weekly check in. I am sorry I missed your call. I will reach out to you again tomorrow. (if the third call I will reach out to you again next week) Enter next patient outreach date for the following day using the Track Pt Outreach. End outreach. Stan Alexandra RN July 20, 2022 8:39 AM documented in this encounter [facility] 07-05-2022 History of Present illness Narrative [facility] TELEPHONIC OUTREACH Provider Action/FYI: Called Pt left a message to verify CKD or other symptom status and needs. Contact made with patient: No - Left message Hello my name is Stan Alexandra RN your Box Sealing Machine Catcher from the [facility] I am calling today for your bi-weekly check in. I am sorry I missed your call. I will reach out to you again tomorrow. (if the third call I will reach out to you again next week) Enter next patient outreach date for the following business day using the Track Pt Outreach. End outreach. Stan Alexandra RN July 05, 2022 1:59 PM [facility] TELEPHONIC OUTREACH Provider Action/FYI: Called Pt left a message to verify CKD or other symptom status and needs. Contact made with patient: No - Left message Hello my name is Stan Alexandra RN your Box Sealing Machine Catcher from the [facility] I am calling today for your bi-weekly check in. I am sorry I missed your call. I will reach out to you again tomorrow. (if the third call I will reach out to you again next week) Enter next patient outreach date for the following business day using the Track Pt Outreach. End outreach. Stan Alexandra RN July 04, 2022 9:36 AM documented in this encounter [facility] 07-03-2022 History of Present illness Narrative [facility] TELEPHONIC OUTREACH Provider Action/FYI: Call to Pt left a message to verify CKD or other symptoms, unable to leave a message. Contact made with patient: No - Left message Hello my name is Stan Alexandra RN your Box Sealing Machine Catcher from the [facility] I am calling today for your bi-weekly check in. I am sorry I missed your call. I will reach out to you again tomorrow. (if the third call I will reach out to you again next week) Enter next patient outreach date for the following business day using the Track Pt Outreach. End outreach. Stan Alexandra RN July 03, 2022 9:05 AM documented in this encounter [facility] 06-02-2022 History of Present illness Narrative [facility] TELEPHONIC OUTREACH Provider Action/FYI: Call to Pt left a message to verify CKD or other symptoms, unable to leave a message. Contact made with patient: No - Unable to leave message Entered next patient outreach date for the following business day, if third call please enter next outreach date for one week in the Track Pt. Outreach - End Outreach Stan Alexandra RN June 02, 2022 10:15 AM documented in this encounter [facility] 05-25-2022 Miscellaneous Notes Patient notified of results and provider's instructions. Patient verbalizes understanding. Suzanna Nickerson LPN A small amount on TP would not be concerning. If large amount of blood or symptomatic complaints should let us know right away for recommendations. Recommend for now treating with topical hydrocortisone cream x7 days to see if this helps. Maintain adequate fluid and fiber intake to ease BM passage. Patient states that she has a history of hemorrhoids. Patient states that normally they only bleed for a day or 2. Patient states that this time she has been bleeding for 5 days. Patient is worried about this due to taking Eliquis twice a day and baby aspirin 81 mg daily. Please review and advise, Lizzie Mason RN documented in this encounter [facility] 05-16-2022 History of Present illness Narrative [facility] TELEPHONIC OUTREACH Call to Pt left a message to verify CKD or other symptoms, unable to leave a message. Contact made with patient: No - Unable to leave message Entered next patient outreach date for the following business day, if third call please enter next outreach date for one week in the Track Pt. Outreach - End Outreach Stan Alexandra RN May 16, 2022 9:48 AM [facility] TELEPHONIC OUTREACH Provider Action/FYI: Call to Pt spk with spouse Arvin, she not able to talk, is on the other phone with her mother. Contact made with patient: Yes Patient identified by name and . Discussed care with spouse It s nice talking to you again. As a reminder, this is our bi-weekly check-in where I will be asking you questions about your health. This will only take a few minutes of your time. Is this a good time? No - today is not a good time for the patient. Agree on a call back time and connect with the patient then. If applicable, update the next patient outreach date using the Track Pt Outreach. End outreach Stan Alexandra RN May 15, 2022 9:20 AM documented in this encounter [facility] 04-28-2022 History of Present illness Narrative [facility] TELEPHONIC OUTREACH Provider Action/FYI: Call to Pt to verify CKD or other symptom status and needs. Contact made with patient: No - Left message Hello my name is Stan Alexandra RN your Box Sealing Machine Catcher from the [facility] I am calling today for your bi-weekly check in. I am sorry I missed your call. I will reach out to you again tomorrow. (if the third call I will reach out to you again next week) Enter next patient outreach date for the following business day using the Track Pt Outreach. End outreach. Stan Alexandra RN April 28, 2022 9:40 AM documented in this encounter [facility] 04-13-2022 History of Present illness Narrative [facility] TELEPHONIC OUTREACH Provider Action/FYI: Call to Pt left a message to verify CKD symptom status or needs. Contact made with patient: No - Left message Bam my name is Stan Alexandra RN your Box Sealing Machine Catcher from the [facility] I am calling today for your bi-weekly check in. I am sorry I missed your call. I will reach out to you again tomorrow. (if the third call I will reach out to you again next week) Enter next patient outreach date for the following business day using the Track Pt Outreach. End outreach. Stan Alexandra RN April 13, 2022 1:37 PM [facility] TELEPHONIC OUTREACH Provider Action/FYI: Call to Pt left a message to verify CKD symptom status or needs Contact made with patient: No - Left message Hello my name is Stan Alexandra RN your Box Sealing Machine Catcher from the [facility] I am calling today for your bi-weekly check in. I am sorry I missed your call. I will reach out to you again tomorrow. (if the third call I will reach out to you again next week) Enter next patient outreach date for the following business day using the Track Pt Outreach. End outreach. Stan Alexandra RN April 12, 2022 10:34 AM documented in this encounter [facility] 04-11-2022 Miscellaneous Notes Last OV: 10/12/2021 Next OV: 05/05/2022 documented in this encounter [facility] 03-30-2022 Miscellaneous Notes Okayed Patient has been identified by name and date of : Yes Patient phones for refill(s): Pending Prescriptions Disp Refills BUPROPION HCL SR 150 MG TABLET,12 HR SUSTAINED-RELEASE 90 tablet 3 Sig: Take 1 tablet by mouth every morning. PHYLLIS: No ESCITALOPRAM 20 MG TABLET 90 tablet 3 Sig: Take 1 tablet by mouth once daily. PHYLLIS: No Date of last office visit in primary care: 10/12/21 next apt 05/05/22 Last 2 Encounter Wt Readings: Date: Wt: 11/09/2021 78.9 kg (174 lb) 10/27/2021 78.9 kg (174 lb) Previous labs/tests for medication: Not applicable Please advise. Thank you. Elana Paredes LPN documented in this encounter [facility] 03-23-2022 Miscellaneous Notes Patient calling to state [facility] states patient does not have any more refills on her atorvastatin medication. According to our record, she does have refills. This nurse contacted [facility] and clarified issue. Medication will be sent to patient. Patient updated. Haley Huang RN documented in this encounter [facility] 03-20-2022 History of Present illness Narrative [facility] CDM TELEPHONIC OUTREACH Provider Action/FYI: Spk with Pt she declines new or worsening CKD or other symptoms or needs Contact made with patient: Yes Patient identified by name and . Discussed care with patient It s nice talking to you again. As a reminder, this is our bi-weekly check-in where I will be asking you questions about your health. This will only take a few minutes of your time. Is this a good time? Yes Symptoms What Chronic Disease(s) does the patient have: CKD Do you check your blood pressures at home? No Do you have new or worse shortness of breath with activity? No Do you feel like you are dehydrated for any reason, including not being able to eat or drink normally, or having less urine/much darker urine than normal for you? No Do you check your daily weight at home? No Are you having any other symptoms that your PCP needs to know about? No Symptom Escalation The patient required an escalation for symptom(s)? No Medications Do you have any questions about taking your medication or which medications you should be on? No Do you need any medication refills at this time, including any of the medications you might take only when needed? No Social We would like to make sure you have what you need so that your basic needs are met- including your personal safety, food, housing and medications? Would you like to speak with a social work meat service team member to help give you support for any of these needs? No It can be normal to feel anxious or down during a time like this. Would you like to talk to a mental health professional about how you have been feeling? No Closing Thank you for taking the time to talk with me today. We want to work with you to ensure that we are keeping your medical condition(s) well-controlled and to keep you healthy and out of the doctor's office or hospital. It s also not too late for me to sign you up for automated weekly questionnaires through [employer]. This is an easy way for us to stay connected each week. Are you interested? No, I understand. We can always sign you up in the future if you change your mind. Just as a reminder, will continue to call you every other week to check in on your health. Our calls should take 10-15 minutes or less. Remember, if you have concerns in between our calls, please call your PCP's office right away. Thank you. Enter next patient outreach date for two weeks on the same day of the week as today in the Track Pt Outreach and End outreach. Stan Alexandra RN March 20, 2022 3:24 PM documented in this encounter [facility] 03-02-2022 Miscellaneous Notes Miriam we did receive your refill requests. Atorvastatin (Lipitor) was written 10/12/2021 for 90 tablets, 3 refills sent to [facility]. Please check with your pharmacy. I will put the Apixaban (Eliquis) request through. Patient has been identified by name and date of : Yes Patient phones for refill(s): Pending Prescriptions Disp Refills APIXABAN 5 MG TABLET 180 tablet 3 Sig: Take 1 tablet by mouth twice daily. PHYLLIS: No Date of last office visit in primary care: 10/12/2021 6 month follow-up: 05/05/2022 Last 2 Encounter Wt Readings: Date: Wt: 11/09/2021 78.9 kg (174 lb) 10/27/2021 78.9 kg (174 lb) Previous labs/tests for medication: Not applicable Please advise. Thank you. Didi Chawla LPN documented in this encounter [facility] 03-02-2022 History of Present illness Narrative POPULATION HEALTH NAVIGATION OUTREACH Action/FYI Patient already scheduled Pt identified by name and : NO Outreach Outcome/Action PCP field updated Did you use a PCP flex slot to schedule this appointment? No Reason for Outreach Care Gap or Scheduling/Wellness visits Payer: Payor: [employer] / Plan: [employer] HMO / Product Type: HMO / Care Gap Reviewed:: N/A Reminder: Reminder note to check Health Maintenance for items below Health Maintenance items due: HIV SCREENING Never done PNEUMOCOCCAL(2 - PCV) due on 10/01/2005 DTAP,TDAP,TD(2 - Td or Tdap) due on 10/01/2018 PAP TESTING due on 03/01/2021 HPV TESTING due on 03/01/2021 DILATED RETINAL EXAM due on 08/11/2021 LDL CHOLESTEROL due on 09/20/2021 MAMMOGRAM due on 10/13/2021 HBA1C due on 11/09/2021 DIABETIC FOOT EXAM due on 12/10/2021 Message Sent to Practice: No Navigation Signature: Meli Lindo March 02, 2022 11:52 AM documented in this encounter [facility] 02-24-2022 History of Present illness Narrative [facility] CDM Engagement Provider Action/FYI: Spk with Pt' s spouse he reports no new or worsening CKD or symptoms, she is hydrating well, denies needs or concerns. Contact Made with Patient: Yes Patient identified by name and . Discussed care with spouse Bam nelson name is Stan Alexandra RN your Box Sealing Machine Catcher from Earl Shepherd MD office at the [facility]. I am reaching out today because I noticed it has been a few weeks since I have seen any responses from you on your questionnaire. I wanted to check on you and make sure you are doing well, and to remind you that your Earl Shepherd MD recommended this program for you so that you can stay better connected to your health. I will be monitoring your responses on the questionnaire to make sure we are not seeing any changes in your health that your Primary Care Physician needs to know about, or looking for improvements and keeping Earl Shepherd MD informed about it all. You and I will check in together anytime a problem arises, and determine a solution. I am here to help you stay healthy, and stay connected to your doctor's office. How can I help you in this program? The patient informs that she forgot. Please take some time today to answer the questionnaire. I am looking forward to receiving your answers. If I do not receive your answers in the next 2 business days I will check back in. ---END CALL Stan Alexandra RN February 24, 2022 1:23 PM documented in this encounter [facility] 01-30-2022 History of Present illness Narrative [facility] CDM Engagement Provider Action/FYI: Spk with Pt who reports she is working on improving her hydration. Pt noted she lost her Father in August and she is having difficulty sleeping, Pt is taking Melatonin, will contact the office if she continues to have difficulty sleeping. Emotional support given. Pt noted appreciation for the call. Contact Made with Patient: Yes Patient identified by name and . Discussed care with patient Bam nelson name is Stan Alexandra RN your Box Sealing Machine Catcher from Earl Shepherd MD office at the [facility]. I am reaching out today because I noticed it has been a few weeks since I have seen any responses from you on your questionnaire. I wanted to check on you and make sure you are doing well, and to remind you that your Earl Shepherd MD recommended this program for you so that you can stay better connected to your health. I will be monitoring your responses on the questionnaire to make sure we are not seeing any changes in your health that your Primary Care Physician needs to know about, or looking for improvements and keeping Earl Shepherd MD informed about it all. You and I will check in together anytime a problem arises, and determine a solution. I am here to help you stay healthy, and stay connected to your doctor's office. How can I help you in this program? The patient informs that she forgot. Please take some time today to answer the questionnaire. I am looking forward to receiving your answers. If I do not receive your answers in the next 2 business days I will check back in. ---END CALL Stan Alexandra RN January 30, 2022 3:37 PM documented in this encounter [facility] 01-24-2022 Miscellaneous Notes Patient has been identified by name and date of : Yes Pharmacy phones for refill(s): Pending Prescriptions Disp Refills HYDRALAZINE 50 MG TABLET 180 tablet 3 Sig: Take 1 tablet by mouth twice daily. Hold for SBP less than 120mm HG PHYLLIS: No PANTOPRAZOLE 40 MG TABLET,DELAYED RELEASE 90 tablet 1 Sig: Take 1 tablet by mouth once daily. PHYLLIS: No Date of last office visit in primary care: 10/22/21 next apt 05/05/22 Last 2 Encounter Wt Readings: Date: Wt: 11/09/2021 78.9 kg (174 lb) 10/27/2021 78.9 kg (174 lb) Previous labs/tests for medication: Not applicable Thank you. Elana Paredes LPN documented in this encounter [facility] 12-30-2021 Miscellaneous Notes Last OV: 10/12/2021 Next OV: 05/05/2022 documented in this encounter [facility] 06-08-2020 History of Past i llness Narrative Problem Noted Date Resolved Date Diabetic foot ulcer 06/08/2020 01/03/2021 Diarrhea of presumed infectious origin 0 03/05/2020 Gangrene 12/09/2019 03/05/2020 Lower limb ischemia 11/04/2019 11/12/2019 Epigastric pain 11/20/2017 03/05/2020 Overview: Added automatically from request for surgery [id number] Acute pain of left shoulder 08/01/2017 06/0 01/2020 Constitutional obesity 02/03/2016 0 Reactive depression 12/28/2015 03/05/2020 Diabetic ulcer of left foot associated with diabetes mellitus due to underlying condition 12/21/2015 01/31/2017 Type 2 diabetes mellitus with peripheral neuropa thy 10/15/2014 01/16/2019 Balance problem 10/15/2014 03/05/2020 documented as of this encounter (statuses as of 12/30/2021) [facility] History of Past illness Narrative* Problem Noted Date Resolved Date Diabetic foot ulcer 06/08/2020 01/03/2021 Diarrhea of presumed infectious origin 0 03/05/2020 Gangrene 12/09/2019 03/05/2020 Lower limb ischemia 11/04/2019 11/12/2019 Epigastric pain 11/20/2017 03/05/2020 Overview: Added automatically from request for surgery [id number] Acute pain of left shoulder 08/01/2017 06/0 01/2020 Constitutional obesity 02/03/2016 0 Reactive depression 12/28/2015 03/05/2020 Diabetic ulcer of left foot associated with diabetes mellitus due to underlying condition 12/21/2015 01/31/2017 Type 2 diabetes mellitus with peripheral neuropa thy 10/15/2014 01/16/2019 Balance problem 10/15/2014 03/05/2020 documented as of this encounter (statuses as of 01/24/2022) [facility] History of Past illness Narrative* Problem Noted Date Resolved Date Diabetic foot ulcer 06/08/2020 01/03/2021 Diarrhea of presumed infectious origin 0 03/05/2020 Gangrene 12/09/2019 03/05/2020 Lower limb ischemia 11/04/2019 11/12/2019 Epigastric pain 11/20/2017 03/05/2020 Overview: Added automatically from request for surgery [id number] Acute pain of left shoulder 08/01/2017 06/0 01/2020 Constitutional obesity 02/03/2016 0 Reactive depression 12/28/2015 03/05/2020 Diabetic ulcer of left foot associated with diabetes mellitus due to underlying condition 12/21/2015 01/31/2017 Type 2 diabetes mellitus with peripheral neuropa thy 10/15/2014 01/16/2019 Balance problem 10/15/2014 03/05/2020 documented as of this encounter (statuses as of 01/30/2022) [facility] History of Past illness Narrative* Problem Noted Date Resolved Date Diabetic foot ulcer 06/08/2020 01/03/2021 Diarrhea of presumed infectious origin 0 03/05/2020 Gangrene 12/09/2019 03/05/2020 Lower limb ischemia 11/04/2019 11/12/2019 Epigastric pain 11/20/2017 03/05/2020 Overview: Added automatically from request for surgery [id number] Acute pain of left shoulder 08/01/2017 06/0 01/2020 Constitutional obesity 02/03/2016 0 Reactive depression 12/28/2015 03/05/2020 Diabetic ulcer of left foot associated with diabetes mellitus due to underlying condition 12/21/2015 01/31/2017 Type 2 diabetes mellitus with peripheral neuropa thy 10/15/2014 01/16/2019 Balance problem 10/15/2014 03/05/2020 documented as of this encounter (statuses as of 02/24/2022) [facility] History of Past illness Narrative* Problem Noted Date Resolved Date Diabetic foot ulcer 06/08/2020 01/03/2021 Diarrhea of presumed infectious origin 0 03/05/2020 Gangrene 12/09/2019 03/05/2020 Lower limb ischemia 11/04/2019 11/12/2019 Epigastric pain 11/20/2017 03/05/2020 Overview: Added automatically from request for surgery [id number] Acute pain of left shoulder 08/01/2017 06/0 01/2020 Constitutional obesity 02/03/2016 0 Reactive depression 12/28/2015 03/05/2020 Diabetic ulcer of left foot associated with diabetes mellitus due to underlying condition 12/21/2015 01/31/2017 Type 2 diabetes mellitus with peripheral neuropa thy 10/15/2014 01/16/2019 Balance problem 10/15/2014 03/05/2020 documented as of this encounter (statuses as of 03/02/2022) [facility] History of Past illness Narrative* Problem Noted Date Resolved Date Diabetic foot ulcer 06/08/2020 01/03/2021 Diarrhea of presumed infectious origin 0 03/05/2020 Gangrene 12/09/2019 03/05/2020 Lower limb ischemia 11/04/2019 11/12/2019 Epigastric pain 11/20/2017 03/05/2020 Overview: Added automatically from request for surgery [id number] Acute pain of left shoulder 08/01/2017 06/0 01/2020 Constitutional obesity 02/03/2016 0 Reactive depression 12/28/2015 03/05/2020 Diabetic ulcer of left foot associated with diabetes mellitus due to underlying condition 12/21/2015 01/31/2017 Type 2 diabetes mellitus with peripheral neuropa thy 10/15/2014 01/16/2019 Balance problem 10/15/2014 03/05/2020 documented as of this encounter (statuses as of 03/03/2022) [facility] History of Past illness Narrative* Problem Noted Date Resolved Date Diabetic foot ulcer 06/08/2020 01/03/2021 Diarrhea of presumed infectious origin 0 03/05/2020 Gangrene 12/09/2019 03/05/2020 Lower limb ischemia 11/04/2019 11/12/2019 Epigastric pain 11/20/2017 03/05/2020 Overview: Added automatically from request for surgery [id number] Acute pain of left shoulder 08/01/2017 06/0 01/2020 Constitutional obesity 02/03/2016 0 Reactive depression 12/28/2015 03/05/2020 Diabetic ulcer of left foot associated with diabetes mellitus due to underlying condition 12/21/2015 01/31/2017 Type 2 diabetes mellitus with peripheral neuropa thy 10/15/2014 01/16/2019 Balance problem 10/15/2014 03/05/2020 documented as of this encounter (statuses as of 03/20/2022) [facility] History of Past illness Narrative* Problem Noted Date Resolved Date Diabetic foot ulcer 06/08/2020 01/03/2021 Diarrhea of presumed infectious origin 0 03/05/2020 Gangrene 12/09/2019 03/05/2020 Lower limb ischemia 11/04/2019 11/12/2019 Epigastric pain 11/20/2017 03/05/2020 Overview: Added automatically from request for surgery [id number] Acute pain of left shoulder 08/01/2017 060 01/2020 Constitutional obesity 02/03/2016 0 Reactive depression 12/28/2015 03/05/2020 Diabetic ulcer of left foot associated with diabetes mellitus due to underlying condition 12/21/2015 01/31/2017 Type 2 diabetes mellitus with peripheral neuropa thy 10/15/2014 01/16/2019 Balance problem 10/15/2014 03/05/2020 documented as of this encounter (statuses as of 03/23/2022) [facility] History of Past illness Narrative* Problem Noted Date Resolved Date Diabetic foot ulcer 06/08/2020 01/03/2021 Diarrhea of presumed infectious origin 0 03/05/2020 Gangrene 12/09/2019 03/05/2020 Lower limb ischemia 11/04/2019 11/12/2019 Epigastric pain 11/20/2017 03/05/2020 Overview: Added automatically from request for surgery [id number] Acute pain of left shoulder 08/01/2017 060 01/2020 Constitutional obesity 02/03/2016 0 Reactive depression 12/28/2015 03/05/2020 Diabetic ulcer of left foot associated with diabetes mellitus due to underlying condition 12/21/2015 01/31/2017 Type 2 diabetes mellitus with peripheral neuropa thy 10/15/2014 01/16/2019 Balance problem 10/15/2014 03/05/2020 documented as of this encounter (statuses as of 03/30/2022) [facility] History of Past illness Narrative* Problem Noted Date Resolved Date Diabetic foot ulcer 06/08/2020 01/03/2021 Diarrhea of presumed infectious origin 0 03/05/2020 Gangrene 12/09/2019 03/05/2020 Lower limb ischemia 11/04/2019 11/12/2019 Epigastric pain 11/20/2017 03/05/2020 Overview: Added automatically from request for surgery [id number] Acute pain of left shoulder 08/01/2017 06/0 01/2020 Constitutional obesity 02/03/2016 0 Reactive depression 12/28/2015 03/05/2020 Diabetic ulcer of left foot associated with diabetes mellitus due to underlying condition 12/21/2015 01/31/2017 Type 2 diabetes mellitus with peripheral neuropa thy 10/15/2014 01/16/2019 Balance problem 10/15/2014 03/05/2020 documented as of this encounter (statuses as of 04/12/2022) [facility] History of Past illness Narrative* Problem Noted Date Resolved Date Diabetic foot ulcer 06/08/2020 01/03/2021 Diarrhea of presumed infectious origin 0 03/05/2020 Gangrene 12/09/2019 03/05/2020 Lower limb ischemia 11/04/2019 11/12/2019 Epigastric pain 11/20/2017 03/05/2020 Overview: Added automatically from request for surgery [id number] Acute pain of left shoulder 08/01/2017 06/0 01/2020 Constitutional obesity 02/03/2016 0 Reactive depression 12/28/2015 03/05/2020 Diabetic ulcer of left foot associated with diabetes mellitus due to underlying condition 12/21/2015 01/31/2017 Type 2 diabetes mellitus with peripheral neuropa thy 10/15/2014 01/16/2019 Balance problem 10/15/2014 03/05/2020 documented as of this encounter (statuses as of 04/13/2022) [facility] History of Past illness Narrative* Problem Noted Date Resolved Date Diabetic foot ulcer 06/08/2020 01/03/2021 Diarrhea of presumed infectious origin 0 03/05/2020 Gangrene 12/09/2019 03/05/2020 Lower limb ischemia 11/04/2019 11/12/2019 Epigastric pain 11/20/2017 03/05/2020 Overview: Added automatically from request for surgery [id number] Acute pain of left shoulder 08/01/2017 06/0 01/2020 Constitutional obesity 02/03/2016 0 Reactive depression 12/28/2015 03/05/2020 Diabetic ulcer of left foot associated with diabetes mellitus due to underlying condition 12/21/2015 01/31/2017 Type 2 diabetes mellitus with peripheral neuropa thy 10/15/2014 01/16/2019 Balance problem 10/15/2014 03/05/2020 documented as of this encounter (statuses as of 04/28/2022) [facility] History of Past illness Narrative* Problem Noted Date Resolved Date Diabetic foot ulcer 06/08/2020 01/03/2021 Diarrhea of presumed infectious origin 0 03/05/2020 Gangrene 12/09/2019 03/05/2020 Lower limb ischemia 11/04/2019 11/12/2019 Epigastric pain 11/20/2017 03/05/2020 Overview: Added automatically from request for surgery [id number] Acute pain of left shoulder 08/01/2017 06/0 01/2020 Constitutional obesity 02/03/2016 0 Reactive depression 12/28/2015 03/05/2020 Diabetic ulcer of left foot associated with diabetes mellitus due to underlying condition 12/21/2015 01/31/2017 Type 2 diabetes mellitus with peripheral neuropa thy 10/15/2014 01/16/2019 Balance problem 10/15/2014 03/05/2020 documented as of this encounter (statuses as of 05/16/2022) [facility] History of Past illness Narrative* Problem Noted Date Resolved Date Diabetic foot ulcer 06/08/2020 01/03/2021 Diarrhea of presumed infectious origin 0 03/05/2020 Gangrene 12/09/2019 03/05/2020 Lower limb ischemia 11/04/2019 11/12/2019 Epigastric pain 11/20/2017 03/05/2020 Overview: Added automatically from request for surgery [id number] Acute pain of left shoulder 08/01/2017 060 01/2020 Constitutional obesity 02/03/2016 0 Reactive depression 12/28/2015 03/05/2020 Diabetic ulcer of left foot associated with diabetes mellitus due to underlying condition 12/21/2015 01/31/2017 Type 2 diabetes mellitus with peripheral neuropa thy 10/15/2014 01/16/2019 Balance problem 10/15/2014 03/05/2020 documented as of this encounter (statuses as of 05/19/2022) [facility] History of Past illness Narrative* Problem Noted Date Resolved Date Diabetic foot ulcer 06/08/2020 01/03/2021 Diarrhea of presumed infectious origin 0 03/05/2020 Gangrene 12/09/2019 03/05/2020 Lower limb ischemia 11/04/2019 11/12/2019 Epigastric pain 11/20/2017 03/05/2020 Overview: Added automatically from request for surgery [id number] Acute pain of left shoulder 08/01/2017 06/0 01/2020 Constitutional obesity 02/03/2016 0 Reactive depression 12/28/2015 03/05/2020 Diabetic ulcer of left foot associated with diabetes mellitus due to underlying condition 12/21/2015 01/31/2017 Type 2 diabetes mellitus with peripheral neuropa thy 10/15/2014 01/16/2019 Balance problem 10/15/2014 03/05/2020 documented as of this encounter (statuses as of 05/25/2022) [facility] History of Past illness Narrative* Problem Noted Date Resolved Date Diabetic foot ulcer 06/08/2020 01/03/2021 Diarrhea of presumed infectious origin 0 03/05/2020 Gangrene 12/09/2019 03/05/2020 Lower limb ischemia 11/04/2019 11/12/2019 Epigastric pain 11/20/2017 03/05/2020 Overview: Added automatically from request for surgery [id number] Acute pain of left shoulder 08/01/2017 060 01/2020 Constitutional obesity 02/03/2016 0 Reactive depression 12/28/2015 03/05/2020 Diabetic ulcer of left foot associated with diabetes mellitus due to underlying condition 12/21/2015 01/31/2017 Type 2 diabetes mellitus with peripheral neuropa thy 10/15/2014 01/16/2019 Balance problem 10/15/2014 03/05/2020 documented as of this encounter (statuses as of 06/02/2022) [facility] History of Past illness Narrative* Problem Noted Date Resolved Date Diabetic foot ulcer 06/08/2020 01/03/2021 Diarrhea of presumed infectious origin 0 03/05/2020 Gangrene 12/09/2019 03/05/2020 Lower limb ischemia 11/04/2019 11/12/2019 Epigastric pain 11/20/2017 03/05/2020 Overview: Added automatically from request for surgery [id number] Acute pain of left shoulder 08/01/2017 060 01/2020 Constitutional obesity 02/03/2016 0 Reactive depression 12/28/2015 03/05/2020 Diabetic ulcer of left foot associated with diabetes mellitus due to underlying condition 12/21/2015 01/31/2017 Type 2 diabetes mellitus with peripheral neuropa thy 10/15/2014 01/16/2019 Balance problem 10/15/2014 03/05/2020 documented as of this encounter (statuses as of 07/03/2022) [facility] History of Past illness Narrative* Problem Noted Date Resolved Date Diabetic foot ulcer 06/08/2020 01/03/2021 Diarrhea of presumed infectious origin 0 03/05/2020 Gangrene 12/09/2019 03/05/2020 Lower limb ischemia 11/04/2019 11/12/2019 Epigastric pain 11/20/2017 03/05/2020 Overview: Added automatically from request for surgery [id number] Acute pain of left shoulder 08/01/2017 06/0 01/2020 Constitutional obesity 02/03/2016 0 Reactive depression 12/28/2015 03/05/2020 Diabetic ulcer of left foot associated with diabetes mellitus due to underlying condition 12/21/2015 01/31/2017 Type 2 diabetes mellitus with peripheral neuropa thy 10/15/2014 01/16/2019 Balance problem 10/15/2014 03/05/2020 documented as of this encounter (statuses as of 07/05/2022) [facility] History of Past illness Narrative* Problem Noted Date Resolved Date Diabetic foot ulcer 06/08/2020 01/03/2021 Diarrhea of presumed infectious origin 0 03/05/2020 Gangrene 12/09/2019 03/05/2020 Lower limb ischemia 11/04/2019 11/12/2019 Epigastric pain 11/20/2017 03/05/2020 Overview: Added automatically from request for surgery [id number] Acute pain of left shoulder 08/01/2017 06/0 01/2020 Constitutional obesity 02/03/2016 0 Reactive depression 12/28/2015 03/05/2020 Diabetic ulcer of left foot associated with diabetes mellitus due to underlying condition 12/21/2015 01/31/2017 Type 2 diabetes mellitus with peripheral neuropa thy 10/15/2014 01/16/2019 Balance problem 10/15/2014 03/05/2020 documented as of this encounter (statuses as of 07/20/2022) [facility] History of Past illness Narrative* Problem Noted Date Resolved Date Diabetic foot ulcer 06/08/2020 01/03/2021 Diarrhea of presumed infectious origin 0 03/05/2020 Gangrene 12/09/2019 03/05/2020 Lower limb ischemia 11/04/2019 11/12/2019 Epigastric pain 11/20/2017 03/05/2020 Overview: Added automatically from request for surgery [id number] Acute pain of left shoulder 08/01/2017 06/0 01/2020 Constitutional obesity 02/03/2016 0 Reactive depression 12/28/2015 03/05/2020 Diabetic ulcer of left foot associated with diabetes mellitus due to underlying condition 12/21/2015 01/31/2017 Type 2 diabetes mellitus with peripheral neuropa thy 10/15/2014 01/16/2019 Balance problem 10/15/2014 03/05/2020 documented as of this encounter (statuses as of 08/07/2022) [facility] History of Past illness Narrative* Problem Noted Date Resolved Date Diabetic foot ulcer 06/08/2020 01/03/2021 Diarrhea of presumed infectious origin 0 03/05/2020 Gangrene 12/09/2019 03/05/2020 Lower limb ischemia 11/04/2019 11/12/2019 Epigastric pain 11/20/2017 03/05/2020 Overview: Added automatically from request for surgery [id number] Acute pain of left shoulder 08/01/2017 06/0 01/2020 Constitutional obesity 02/03/2016 0 Reactive depression 12/28/2015 03/05/2020 Diabetic ulcer of left foot associated with diabetes mellitus due to underlying condition 12/21/2015 01/31/2017 Type 2 diabetes mellitus with peripheral neuropa thy 10/15/2014 01/16/2019 Balance problem 10/15/2014 03/05/2020 documented as of this encounter (statuses as of 08/09/2022) [facility] History of Past illness Narrative* Problem Noted Date Resolved Date Diabetic foot ulcer 06/08/2020 01/03/2021 Diarrhea of presumed infectious origin 0 03/05/2020 Gangrene 12/09/2019 03/05/2020 Lower limb ischemia 11/04/2019 11/12/2019 Epigastric pain 11/20/2017 03/05/2020 Overview: Added automatically from request for surgery [id number] Acute pain of left shoulder 08/01/2017 06/0 01/2020 Constitutional obesity 02/03/2016 0 Reactive depression 12/28/2015 03/05/2020 Diabetic ulcer of left foot associated with diabetes mellitus due to underlying condition 12/21/2015 01/31/2017 Type 2 diabetes mellitus with peripheral neuropa thy 10/15/2014 01/16/2019 Balance problem 10/15/2014 03/05/2020 documented as of this encounter (statuses as of 08/09/2022) [facility] of Past illness Narrative* Problem Noted Date Resolved Date Diabetic foot ulcer 06/08/2020 01/03/2021 Diarrhea of presumed infectious origin 0 03/05/2020 Gangrene 12/09/2019 03/05/2020 Lower limb ischemia 11/04/2019 11/12/2019 Epigastric pain 11/20/2017 03/05/2020 Overview: Added automatically from request for surgery [id number] Acute pain of left shoulder 08/01/2017 060 01/2020 Constitutional obesity 02/03/2016 0 Reactive depression 12/28/2015 03/05/2020 Diabetic ulcer of left foot associated with diabetes mellitus due to underlying condition 12/21/2015 01/31/2017 Type 2 diabetes mellitus with peripheral neuropa thy 10/15/2014 01/16/2019 Balance problem 10/15/2014 03/05/2020 documented as of this encounter (statuses as of 08/24/2022) [facility] History of Past illness Narrative* Problem Noted Date Resolved Date Diabetic foot ulcer 06/08/2020 01/03/2021 Diarrhea of presumed infectious origin 0 03/05/2020 Gangrene 12/09/2019 03/05/2020 Lower limb ischemia 11/04/2019 11/12/2019 Epigastric pain 11/20/2017 03/05/2020 Overview: Added automatically from request for surgery [id number] Acute pain of left shoulder 08/01/2017 06/0 01/2020 Constitutional obesity 02/03/2016 0 Reactive depression 12/28/2015 03/05/2020 Diabetic ulcer of left foot associated with diabetes mellitus due to underlying condition 12/21/2015 01/31/2017 Type 2 diabetes mellitus with peripheral neuropa thy 10/15/2014 01/16/2019 Balance problem 10/15/2014 03/05/2020 documented as of this encounter (statuses as of 09/11/2022) [facility] History of Past illness Narrative* Problem Noted Date Resolved Date Diabetic foot ulcer 06/08/2020 01/03/2021 Diarrhea of presumed infectious origin 0 03/05/2020 Gangrene 12/09/2019 03/05/2020 Lower limb ischemia 11/04/2019 11/12/2019 Epigastric pain 11/20/2017 03/05/2020 Overview: Added automatically from request for surgery [id number] Acute pain of left shoulder 08/01/2017 06/0 01/2020 Constitutional obesity 02/03/2016 0 Reactive depression 12/28/2015 03/05/2020 Diabetic ulcer of left foot associated with diabetes mellitus due to underlying condition 12/21/2015 01/31/2017 Type 2 diabetes mellitus with peripheral neuropa thy 10/15/2014 01/16/2019 Balance problem 10/15/2014 03/05/2020 documented as of this encounter (statuses as of 10/18/2022) [facility] History of Past illness Narrative* Problem Noted Date Resolved Date Diabetic foot ulcer 06/08/2020 01/03/2021 Diarrhea of presumed infectious origin 0 03/05/2020 Gangrene 12/09/2019 03/05/2020 Lower limb ischemia 11/04/2019 11/12/2019 Epigastric pain 11/20/2017 03/05/2020 Overview: Added automatically from request for surgery [id number] Acute pain of left shoulder 08/01/2017 060 01/2020 Constitutional obesity 02/03/2016 0 Reactive depression 12/28/2015 03/05/2020 Diabetic ulcer of left foot associated with diabetes mellitus due to underlying condition 12/21/2015 01/31/2017 Type 2 diabetes mellitus with peripheral neuropa thy 10/15/2014 01/16/2019 Balance problem 10/15/2014 03/05/2020 documented as of this encounter (statuses as of 10/19/2022) [facility] History of Past illness Narrative* Problem Noted Date Resolved Date Diabetic foot ulcer 06/08/2020 01/03/2021 Diarrhea of presumed infectious origin 0 03/05/2020 Gangrene 12/09/2019 03/05/2020 Lower limb ischemia 11/04/2019 11/12/2019 Epigastric pain 11/20/2017 03/05/2020 Overview: Added automatically from request for surgery [id number] Acute pain of left shoulder 08/01/2017 06/0 01/2020 Constitutional obesity 02/03/2016 0 Reactive depression 12/28/2015 03/05/2020 Diabetic ulcer of left foot associated with diabetes mellitus due to underlying condition 12/21/2015 01/31/2017 Type 2 diabetes mellitus with peripheral neuropa thy 10/15/2014 01/16/2019 Balance problem 10/15/2014 03/05/2020 documented as of this encounter (statuses as of 11/07/2022) [facility] History of Past illness Narrative* Problem Noted Date Resolved Date Diabetic foot ulcer 06/08/2020 01/03/2021 Diarrhea of presumed infectious origin 0 03/05/2020 Gangrene 12/09/2019 03/05/2020 Lower limb ischemia 11/04/2019 11/12/2019 Epigastric pain 11/20/2017 03/05/2020 Overview: Added automatically from request for surgery [id number] Acute pain of left shoulder 08/01/2017 06/0 01/2020 Constitutional obesity 02/03/2016 0 Reactive depression 12/28/2015 03/05/2020 Diabetic ulcer of left foot associated with diabetes mellitus due to underlying condition 12/21/2015 01/31/2017 Type 2 diabetes mellitus with peripheral neuropa thy 10/15/2014 01/16/2019 Balance problem 10/15/2014 03/05/2020 documented as of this encounter (statuses as of 11/13/2022) [facility] History of Past illness Narrative* Problem Noted Date Resolved Date Diabetic foot ulcer 06/08/2020 01/03/2021 Diarrhea of presumed infectious origin 0 03/05/2020 Gangrene 12/09/2019 03/05/2020 Lower limb ischemia 11/04/2019 11/12/2019 Epigastric pain 11/20/2017 03/05/2020 Overview: Added automatically from request for surgery [id number] Acute pain of left shoulder 08/01/2017 06/0 01/2020 Constitutional obesity 02/03/2016 0 Reactive depression 12/28/2015 03/05/2020 Diabetic ulcer of left foot associated with diabetes mellitus due to underlying condition 12/21/2015 01/31/2017 Type 2 diabetes mellitus with peripheral neuropa thy 10/15/2014 01/16/2019 Balance problem 10/15/2014 03/05/2020 documented as of this encounter (statuses as of 12/07/2022) [facility]2020 History of Past illness Narrative* Problem Noted Date Resolved Date Diabetic foot ulcer 06/08/2020 01/03/2021 Diarrhea of presumed infectious origin 0 03/05/2020 Gangrene 12/09/2019 03/05/2020 Lower limb ischemia 11/04/2019 11/12/2019 Epigastric pain 11/20/2017 03/05/2020 Overview: Added automatically from request for surgery [id number] Acute pain of left shoulder 08/01/2017 06/0 01/2020 Constitutional obesity 02/03/2016 0 Reactive depression 12/28/2015 03/05/2020 Diabetic ulcer of left foot associated with diabetes mellitus due to underlying condition 12/21/2015 01/31/2017 Type 2 diabetes mellitus with peripheral neuropa thy 10/15/2014 01/16/2019 Balance problem 10/15/2014 03/05/2020 documented as of this encounter (statuses as of 12/26/2022) [facility] History of Past illness Narrative* Problem Noted Date Resolved Date Diabetic foot ulcer 06/08/2020 01/03/2021 Diarrhea of presumed infectious origin 0 03/05/2020 Gangrene 12/09/2019 03/05/2020 Lower limb ischemia 11/04/2019 11/12/2019 Epigastric pain 11/20/2017 03/05/2020 Overview: Added automatically from request for surgery [id number] Acute pain of left shoulder 08/01/2017 06/0 01/2020 Constitutional obesity 02/03/2016 0 Reactive depression 12/28/2015 03/05/2020 Diabetic ulcer of left foot associated with diabetes mellitus due to underlying condition 12/21/2015 01/31/2017 Type 2 diabetes mellitus with peripheral neuropa thy 10/15/2014 01/16/2019 Balance problem 10/15/2014 03/05/2020 documented as of this encounter (statuses as of 12/27/2022) [facility] History of Past illness Narrative* Problem Noted Date Resolved Date Diabetic foot ulcer 06/08/2020 01/03/2021 Diarrhea of presumed infectious origin 0 03/05/2020 Gangrene 12/09/2019 03/05/2020 Lower limb ischemia 11/04/2019 11/12/2019 Epigastric pain 11/20/2017 03/05/2020 Overview: Added automatically from request for surgery [id number] Acute pain of left shoulder 08/01/2017 06/0 01/2020 Constitutional obesity 02/03/2016 0 Reactive depression 12/28/2015 03/05/2020 Diabetic ulcer of left foot associated with diabetes mellitus due to underlying condition 12/21/2015 01/31/2017 Type 2 diabetes mellitus with peripheral neuropa thy 10/15/2014 01/16/2019 Balance problem 10/15/2014 03/05/2020 documented as of this encounter (statuses as of 01/02/2023) [facility] History of Past illness Narrative* Problem Noted Date Resolved Date Diabetic foot ulcer 06/08/2020 01/03/2021 Diarrhea of presumed infectious origin 0 03/05/2020 Gangrene 12/09/2019 03/05/2020 Lower limb ischemia 11/04/2019 11/12/2019 Epigastric pain 11/20/2017 03/05/2020 Overview: Added automatically from request for surgery [id number] Acute pain of left shoulder 08/01/2017 06/0 01/2020 Constitutional obesity 02/03/2016 0 Reactive depression 12/28/2015 03/05/2020 Diabetic ulcer of left foot associated with diabetes mellitus due to underlying condition 12/21/2015 01/31/2017 Type 2 diabetes mellitus with peripheral neuropa thy 10/15/2014 01/16/2019 Balance problem 10/15/2014 03/05/2020 documented as of this encounter (statuses as of 01/02/2023) [facility] History of Past illness Narrative* Problem Noted Date Resolved Date Diabetic foot ulcer 06/08/2020 01/03/2021 Diarrhea of presumed infectious origin 0 03/05/2020 Gangrene 12/09/2019 03/05/2020 Lower limb ischemia 11/04/2019 11/12/2019 Epigastric pain 11/20/2017 03/05/2020 Overview: Added automatically from request for surgery [id number] Acute pain of left shoulder 08/01/2017 06/0 01/2020 Constitutional obesity 02/03/2016 0 Reactive depression 12/28/2015 03/05/2020 Diabetic ulcer of left foot associated with diabetes mellitus due to underlying condition 12/21/2015 01/31/2017 Type 2 diabetes mellitus with peripheral neuropa thy 10/15/2014 01/16/2019 Balance problem 10/15/2014 03/05/2020 documented as of this encounter (statuses as of 01/08/2023) [facility] History of Past illness Narrative* Problem Noted Date Resolved Date Diabetic foot ulcer 06/08/2020 01/03/2021 Diarrhea of presumed infectious origin 0 03/05/2020 Gangrene 12/09/2019 03/05/2020 Lower limb ischemia 11/04/2019 11/12/2019 Epigastric pain 11/20/2017 03/05/2020 Overview: Added automatically from request for surgery [id number] Acute pain of left shoulder 08/01/2017 060 01/2020 Constitutional obesity 02/03/2016 0 Reactive depression 12/28/2015 03/05/2020 Diabetic ulcer of left foot associated with diabetes mellitus due to underlying condition 12/21/2015 01/31/2017 Type 2 diabetes mellitus with peripheral neuropa thy 10/15/2014 01/16/2019 Balance problem 10/15/2014 03/05/2020 documented as of this encounter (statuses as of 01/25/2023) [facility] History of Past illness Narrative* Problem Noted Date Resolved Date Diabetic foot ulcer 06/08/2020 01/03/2021 Diarrhea of presumed infectious origin 0 03/05/2020 Gangrene 12/09/2019 03/05/2020 Lower limb ischemia 11/04/2019 11/12/2019 Epigastric pain 11/20/2017 03/05/2020 Overview: Added automatically from request for surgery [id number] Acute pain of left shoulder 08/01/2017 06/0 01/2020 Constitutional obesity 02/03/2016 0 Reactive depression 12/28/2015 03/05/2020 Diabetic ulcer of left foot associated with diabetes mellitus due to underlying condition 12/21/2015 01/31/2017 Type 2 diabetes mellitus with peripheral neuropa thy 10/15/2014 01/16/2019 Balance problem 10/15/2014 03/05/2020 documented as of this encounter (statuses as of 01/25/2023) [facility] History of Past illness Narrative* Problem Noted Date Resolved Date Diabetic foot ulcer 06/08/2020 01/03/2021 Diarrhea of presumed infectious origin 0 03/05/2020 Gangrene 12/09/2019 03/05/2020 Lower limb ischemia 11/04/2019 11/12/2019 Epigastric pain 11/20/2017 03/05/2020 Overview: Added automatically from request for surgery [id number] Acute pain of left shoulder 08/01/2017 06/0 01/2020 Constitutional obesity 02/03/2016 0 Reactive depression 12/28/2015 03/05/2020 Diabetic ulcer of left foot associated with diabetes mellitus due to underlying condition 12/21/2015 01/31/2017 Type 2 diabetes mellitus with peripheral neuropa thy 10/15/2014 01/16/2019 Balance problem 10/15/2014 03/05/2020 documented as of this encounter (statuses as of 03/22/2023) [facility] History of Past illness Narrative* Problem Noted Date Resolved Date Diabetic foot ulcer 06/08/2020 01/03/2021 Diarrhea of presumed infectious origin 0 03/05/2020 Gangrene 12/09/2019 03/05/2020 Lower limb ischemia 11/04/2019 11/12/2019 Epigastric pain 11/20/2017 03/05/2020 Overview: Added automatically from request for surgery [id number] Acute pain of left shoulder 08/01/2017 06/0 01/2020 Constitutional obesity 02/03/2016 0 Reactive depression 12/28/2015 03/05/2020 Diabetic ulcer of left foot associated with diabetes mellitus due to underlying condition 12/21/2015 01/31/2017 Type 2 diabetes mellitus with peripheral neuropa thy 10/15/2014 01/16/2019 Balance problem 10/15/2014 03/05/2020 documented as of this encounter (statuses as of 04/05/2023) [facility] History of Past illness Narrative* Problem Noted Date Diagnosed Date Resolved Date Diabetic foot ulcer 06/08/2020 01/04/20 21 Diarrhea of presumed infectious origin 12/12/2019 03/05/2020 Gangrene 12/09/2019 03/05/2020 Lower limb ischemia 11/04/2019 11/12/19 20 Epigastric pain 11/20/2017 03/05/2020 Overview: Added automatically from request for surgery [id number] Acute pain of left shoulder 08/01/2017 03/05/2020 Constitutional obesity 02/03/201603/05 Reactive depression 12/28/2015 03/05/20 20 Diabetic ulcer of left foot associated with diabetes mellitus due to underlying condition 12/21/2015 01/31/2017 Type 2 diabetes mellitus wit h peripheral neuropathy 10/15/2014 01/16/2019 Balance problem 10/15/2014 03/05/2020 documented as of this encounter (statuses as of 04/19/2023) [facility] History of Past illness Narrative* Problem Noted Date Diagnosed Date Resolved Date Diabetic foot ulcer 06/08/2020 01/04/20 21 Diarrhea of presumed infectious origin 12/12/2019 03/05/2020 Gangrene 12/09/2019 03/05/2020 Lower limb ischemia 11/04/2019 11/12/19 20 Epigastric pain 11/20/2017 03/05/2020 Overview: Added automatically from request for surgery [id number] Acute pain of left shoulder 08/01/2017 03/05/2020 Constitutional obesity 02/03/201603/05 Reactive depression 12/28/2015 03/05/20 20 Diabetic ulcer of left foot associated with diabetes mellitus due to underlying condition 12/21/2015 01/31/2017 Type 2 diabetes mellitus wit h peripheral neuropathy 10/15/2014 01/16/2019 Balance problem 10/15/2014 03/05/2020 documented as of this encounter (statuses as of 05/11/2023) [facility] History of Past illness Narrative* Problem Noted Date Diagnosed Date Resolved Date Diabetic foot ulcer 06/08/2020 01/04/20 21 Diarrhea of presumed infectious origin 12/12/2019 03/05/2020 Gangrene 12/09/2019 03/05/2020 Lower limb ischemia 11/04/2019 11/12/19 20 Epigastric pain 11/20/2017 03/05/2020 Overview: Added automatically from request for surgery [id number] Acute pain of left shoulder 08/01/2017 03/05/2020 Constitutional obesity 02/03/201603/05 Reactive depression 12/28/2015 03/05/20 20 Diabetic ulcer of left foot associated with diabetes mellitus due to underlying condition 12/21/2015 01/31/2017 Type 2 diabetes mellitus wit h peripheral neuropathy 10/15/2014 01/16/2019 Balance problem 10/15/2014 03/05/2020 documented as of this encounter (statuses as of 05/18/2023) [facility] History of Past illness Narrative* Problem Noted Date Diagnosed Date Resolved Date Diabetic foot ulcer 06/08/2020 01/04/20 21 Diarrhea of presumed infectious origin 12/12/2019 03/05/2020 Gangrene 12/09/2019 03/05/2020 Lower limb ischemia 11/04/2019 11/12/19 20 Epigastric pain 11/20/2017 03/05/2020 Overview: Added automatically from request for surgery [id number] Acute pain of left shoulder 08/01/2017 03/05/2020 Constitutional obesity 02/03/201603/05 Reactive depression 12/28/2015 03/05/20 20 Diabetic ulcer of left foot associated with diabetes mellitus due to underlying condition 12/21/2015 01/31/2017 Type 2 diabetes mellitus wit h peripheral neuropathy 10/15/2014 01/16/2019 Balance problem 10/15/2014 03/05/2020 documented as of this encounter (statuses as of 05/23/2023) [facility] History of Past illness Narrative* Problem Noted Date Diagnosed Date Resolved Date Diabetic foot ulcer 06/08/2020 01/04/20 21 Diarrhea of presumed infectious origin 12/12/2019 03/05/2020 Gangrene 12/09/2019 03/05/2020 Lower limb ischemia 11/04/2019 11/12/19 20 Epigastric pain 11/20/2017 03/05/2020 Overview: Added automatically from request for surgery [id number] Acute pain of left shoulder 08/01/2017 03/05/2020 Constitutional obesity 02/03/201603/05 Reactive depression 12/28/2015 03/05/20 20 Diabetic ulcer of left foot associated with diabetes mellitus due to underlying condition 12/21/2015 01/31/2017 Type 2 diabetes mellitus wit h peripheral neuropathy 10/15/2014 01/16/2019 Balance problem 10/15/2014 03/05/2020 documented as of this encounter (statuses as of 06/13/2023) [facility] History of Past illness Narrative* Problem Noted Date Diagnosed Date Resolved Date Diabetic foot ulcer 06/08/2020 01/04/20 21 Diarrhea of presumed infectious origin 12/12/2019 03/05/2020 Gangrene 12/09/2019 03/05/2020 Lower limb ischemia 11/04/2019 11/12/19 20 Epigastric pain 11/20/2017 03/05/2020 Overview: Added automatically from request for surgery [id number] Acute pain of left shoulder 08/01/2017 03/05/2020 Constitutional obesity 02/03/201603/05 Reactive depression 12/28/2015 03/05/20 20 Diabetic ulcer of left foot associated with diabetes mellitus due to underlying condition 12/21/2015 01/31/2017 Type 2 diabetes mellitus wit h peripheral neuropathy 10/15/2014 01/16/2019 Balance problem 10/15/2014 03/05/2020 documented as of this encounter (statuses as of 07/18/2023) [facility] History of Past illness Narrative* Problem Noted Date Diagnosed Date Resolved Date Diabetic foot ulcer 06/08/2020 01/04/20 21 Diarrhea of presumed infectious origin 12/12/2019 03/05/2020 Gangrene 12/09/2019 03/05/2020 Lower limb ischemia 11/04/2019 11/12/19 20 Epigastric pain 11/20/2017 03/05/2020 Overview: Added automatically from request for surgery [id number] Acute pain of left shoulder 08/01/2017 03/05/2020 Constitutional obesity 02/03/201603/05 Reactive depression 12/28/2015 03/05/20 20 Diabetic ulcer of left foot associated with diabetes mellitus due to underlying condition 12/21/2015 01/31/2017 Type 2 diabetes mellitus wit h peripheral neuropathy 10/15/2014 01/16/2019 Balance problem 10/15/2014 03/05/2020 documented as of this encounter (statuses as of 07/23/2023) [facility] History of Past illness Narrative* Problem Noted Date Diagnosed Date Resolved Date Diabetic foot ulcer 06/08/2020 01/04/20 21 Diarrhea of presumed infectious origin 12/12/2019 03/05/2020 Gangrene 12/09/2019 03/05/2020 Lower limb ischemia 11/04/2019 11/12/19 20 Epigastric pain 11/20/2017 03/05/2020 Overview: Added automatically from request for surgery [id number] Acute pain of left shoulder 08/01/2017 03/05/2020 Constitutional obesity 02/03/201603/05 Reactive depression 12/28/2015 03/05/20 20 Diabetic ulcer of left foot associated with diabetes mellitus due to underlying condition 12/21/2015 01/31/2017 Type 2 diabetes mellitus wit h peripheral neuropathy 10/15/2014 01/16/2019 Balance problem 10/15/2014 03/05/2020 documented as of this encounter (statuses as of 08/02/2023) [facility] History of Past illness Narrative* Problem Noted Date Diagnosed Date Resolved Date Diabetic foot ulcer 06/08/2020 01/04/20 21 Diarrhea of presumed infectious origin 12/12/2019 03/05/2020 Gangrene 12/09/2019 03/05/2020 Lower limb ischemia 11/04/2019 11/12/19 20 Epigastric pain 11/20/2017 03/05/2020 Overview: Added automatically from request for surgery [id number] Acute pain of left shoulder 08/01/2017 03/05/2020 Constitutional obesity 02/03/201603/05 Reactive depression 12/28/2015 03/05/20 20 Diabetic ulcer of left foot associated with diabetes mellitus due to underlying condition 12/21/2015 01/31/2017 Type 2 diabetes mellitus wit h peripheral neuropathy 10/15/2014 01/16/2019 Balance problem 10/15/2014 03/05/2020 documented as of this encounter (statuses as of 08/02/2023) [facility] History of Past illness Narrative* Problem Noted Date Diagnosed Date Resolved Date Diabetic foot ulcer 06/08/2020 01/04/20 21 Diarrhea of presumed infectious origin 12/12/2019 03/05/2020 Gangrene 12/09/2019 03/05/2020 Lower limb ischemia 11/04/2019 11/12/19 20 Epigastric pain 11/20/2017 03/05/2020 Overview: Added automatically from request for surgery [id number] Acute pain of left shoulder 08/01/2017 03/05/2020 Constitutional obesity 02/03/201603/05 Reactive depression 12/28/2015 03/05/20 20 Diabetic ulcer of left foot associated with diabetes mellitus due to underlying condition 12/21/2015 01/31/2017 Type 2 diabetes mellitus wit h peripheral neuropathy 10/15/2014 01/16/2019 Balance problem 10/15/2014 03/05/2020 documented as of this encounter (statuses as of 08/04/2023) [facility] History of Past illness Narrative* Problem Noted Date Diagnosed Date Resolved Date Diabetic foot ulcer 06/08/2020 01/04/20 21 Diarrhea of presumed infectious origin 12/12/2019 03/05/2020 Gangrene 12/09/2019 03/05/2020 Lower limb ischemia 11/04/2019 11/12/19 20 Epigastric pain 11/20/2017 03/05/2020 Overview: Added automatically from request for surgery [id number] Acute pain of left shoulder 08/01/2017 03/05/2020 Constitutional obesity 02/03/201603/05 Reactive depression 12/28/2015 03/05/20 20 Diabetic ulcer of left foot associated with diabetes mellitus due to underlying condition 12/21/2015 01/31/2017 Type 2 diabetes mellitus wit h peripheral neuropathy 10/15/2014 01/16/2019 Balance problem 10/15/2014 03/05/2020 documented as of this encounter (statuses as of 08/04/2023) [facility] History of Past illness Narrative* Problem Noted Date Diagnosed Date Resolved Date Diabetic foot ulcer 06/08/2020 01/04/20 21 Diarrhea of presumed infectious origin 12/12/2019 03/05/2020 Gangrene 12/09/2019 03/05/2020 Lower limb ischemia 11/04/2019 11/12/19 20 Epigastric pain 11/20/2017 03/05/2020 Overview: Added automatically from request for surgery [id number] Acute pain of left shoulder 08/01/2017 03/05/2020 Constitutional obesity 02/03/201603/05 Reactive depression 12/28/2015 03/05/20 20 Diabetic ulcer of left foot associated with diabetes mellitus due to underlying condition 12/21/2015 01/31/2017 Type 2 diabetes mellitus wit h peripheral neuropathy 10/15/2014 01/16/2019 Balance problem 10/15/2014 03/05/2020 documented as of this encounter (statuses as of 09/15/2023) [facility] History of Past illness Narrative* Problem Noted Date Diagnosed Date Resolved Date Diabetic foot ulcer 06/08/2020 01/04/20 21 Diarrhea of presumed infectious origin 12/12/2019 03/05/2020 Gangrene 12/09/2019 03/05/2020 Lower limb ischemia 11/04/2019 11/12/19 20 Epigastric pain 11/20/2017 03/05/2020 Overview: Added automatically from request for surgery [id number] Acute pain of left shoulder 08/01/2017 03/05/2020 Constitutional obesity 02/03/201603/05 Reactive depression 12/28/2015 03/05/20 20 Diabetic ulcer of left foot associated with diabetes mellitus due to underlying condition 12/21/2015 01/31/2017 Type 2 diabetes mellitus wit h peripheral neuropathy 10/15/2014 01/16/2019 Balance problem 10/15/2014 03/05/2020 documented as of this encounter (statuses as of 11/05/2023) [facility] History of Past illness Narrative* Problem Noted Date Diagnosed Date Resolved Date Diabetic foot ulcer 06/08/2020 01/04/20 21 Diarrhea of presumed infectious origin 12/12/2019 03/05/2020 Gangrene 12/09/2019 03/05/2020 Lower limb ischemia 11/04/2019 11/12/19 20 Epigastric pain 11/20/2017 03/05/2020 Overview: Added automatically from request for surgery [id number] Acute pain of left shoulder 08/01/2017 03/05/2020 Constitutional obesity 02/03/201603/05 Reactive depression 12/28/2015 03/05/20 20 Diabetic ulcer of left foot associated with diabetes mellitus due to underlying condition 12/21/2015 01/31/2017 Type 2 diabetes mellitus wit h peripheral neuropathy 10/15/2014 01/16/2019 Balance problem 10/15/2014 03/05/2020 documented as of this encounter (statuses as of 11/16/2023) [facility] History of Past illness Narrative* Problem Noted Date Diagnosed Date Resolved Date Diabetic foot ulcer 06/08/2020 01/04/20 21 Diarrhea of presumed infectious origin 12/12/2019 03/05/2020 Gangrene 12/09/2019 03/05/2020 Lower limb ischemia 11/04/2019 11/12/19 20 Epigastric pain 11/20/2017 03/05/2020 Overview: Added automatically from request for surgery [id number] Acute pain of left shoulder 08/01/2017 03/05/2020 Constitutional obesity 02/03/201603/05 Reactive depression 12/28/2015 03/05/20 20 Diabetic ulcer of left foot associated with diabetes mellitus due to underlying condition 12/21/2015 01/31/2017 Type 2 diabetes mellitus wit h peripheral neuropathy 10/15/2014 01/16/2019 Balance problem 10/15/2014 03/05/2020 documented as of this encounter (statuses as of 11/19/2023) [facility] History of Past illness Narrative* Problem Noted Date Diagnosed Date Resolved Date Diabetic foot ulcer 06/08/2020 01/04/20 21 Diarrhea of presumed infectious origin 12/12/2019 03/05/2020 Gangrene 12/09/2019 03/05/2020 Lower limb ischemia 11/04/2019 11/12/19 20 Epigastric pain 11/20/2017 03/05/2020 Overview: Added automatically from request for surgery [id number] Acute pain of left shoulder 08/01/2017 03/05/2020 Constitutional obesity 02/03/201603/05 Reactive depression 12/28/2015 03/05/20 20 Diabetic ulcer of left foot associated with diabetes mellitus due to underlying condition 12/21/2015 01/31/2017 Type 2 diabetes mellitus wit h peripheral neuropathy 10/15/2014 01/16/2019 Balance problem 10/15/2014 03/05/2020 documented as of this encounter (statuses as of 12/03/2023) [facility] History of Past illness Narrative* Problem Noted Date Diagnosed Date Resolved Date Diabetic foot ulcer 06/08/2020 01/04/20 21 Diarrhea of presumed infectious origin 12/12/2019 03/05/2020 Gangrene 12/09/2019 03/05/2020 Lower limb ischemia 11/04/2019 11/12/19 20 Epigastric pain 11/20/2017 03/05/2020 Overview: Added automatically from request for surgery [id number] Acute pain of left shoulder 08/01/2017 03/05/2020 Constitutional obesity 02/03/201603/05 Reactive depression 12/28/2015 03/05/20 20 Diabetic ulcer of left foot associated with diabetes mellitus due to underlying condition 12/21/2015 01/31/2017 Type 2 diabetes mellitus wit h peripheral neuropathy 10/15/2014 01/16/2019 Balance problem 10/15/2014 03/05/2020 documented as of this encounter (statuses as of 12/22/2023) [facility] History of Past illness Narrative* Problem Noted Date Diagnosed Date Resolved Date Diabetic foot ulcer 06/08/2020 01/04/20 21 Diarrhea of presumed infectious origin 12/12/2019 03/05/2020 Gangrene 12/09/2019 03/05/2020 Lower limb ischemia 11/04/2019 11/12/19 20 Epigastric pain 11/20/2017 03/05/2020 Overview: Added automatically from request for surgery [id number] Acute pain of left shoulder 08/01/2017 03/05/2020 Constitutional obesity 02/03/201603/05 Reactive depression 12/28/2015 03/05/20 20 Diabetic ulcer of left foot associated with diabetes mellitus due to underlying condition 12/21/2015 01/31/2017 Type 2 diabetes mellitus wit h peripheral neuropathy 10/15/2014 01/16/2019 Balance problem 10/15/2014 03/05/2020 documented as of this encounter (statuses as of 01/01/2024) [facility] History of Past illness Narrative* Problem Noted Date Diagnosed Date Resolved Date Diabetic foot ulcer 06/08/2020 01/04/20 21 Diarrhea of presumed infectious origin 12/12/2019 03/05/2020 Gangrene 12/09/2019 03/05/2020 Lower limb ischemia 11/04/2019 11/12/19 20 Epigastric pain 11/20/2017 03/05/2020 Overview: Added automatically from request for surgery [id number] Acute pain of left shoulder 08/01/2017 03/05/2020 Constitutional obesity 02/03/201603/05 Reactive depression 12/28/2015 03/05/20 20 Diabetic ulcer of left foot associated with diabetes mellitus due to underlying condition 12/21/2015 01/31/2017 Type 2 diabetes mellitus wit h peripheral neuropathy 10/15/2014 01/16/2019 Balance problem 10/15/2014 03/05/2020 documented as of this encounter (statuses as of 01/14/2024) [facility] Hemiparesis affecting dominant side as late effect of stroke (HCC) Hemiplegia affecting dominant side, late effect of cerebrovascular disease Genital herpes simplex type 1 infection Herpes simplex without mention of complication [facility] Essential hypertension Unspecified essential hypertension Gastroesophageal reflux disease without esophagitis Esophageal reflux [facility] Diagnosis Hemiparesis affecting dominant side as late effect of stroke (HCC) Hemiplegia affecting dominant side, late effect of cerebrovascular disease [facility] Diagnosis Moderate episode of recurrent major depressive disorder (HCC) [facility] Essential hypertension Unspecified essential hypertension Hemiparesis affecting dominant side as late effect of stroke (HCC) Hemiplegia affecting dominant side, late effect of cerebrovascular disease documented [facility] Urinary retention- Primary Retention of urine, unspecified Gastroesophageal reflux disease without esophagitis Esophageal reflux Hemiparesis affecting dominant side as late effect of stroke (HCC) Hemiplegia affecting dominant side, late effect of cerebrovascular disease [facility] Diagnosis Gastroesophageal reflux disease without esophagitis Esophageal reflux [facility] Diagnosis Type 2 diabetes mellitus with diabetic neuropathy, with long-term current use of insulin (HCC)- Primary Mixed hyperlipidemia Essential hypertension Unspecified essential hypertension [facility] Diagnosis Hyperglycemia- Primary Other abnormal glucose [facility] Diagnosis Type 2 diabetes mellitus with diabetic neuropathy, with long-term current use of insulin (HCC)- Primary [facility]* Diagnosis Type 2 diabetes mellitus with stage 3b chronic kidney disease, with long-term current use of insulin ([facility])- Primary Osteoporosis without current pathological fracture, unspecified osteoporosis type [facility] Diagnosis Type 2 diabetes mellitus with stage 3b chronic kidney disease, with long-term current use of insulin (HCC)- Primary Moderate episode of recurrent major depressive disorder (HCC) Essential hypertension Unspecified essential hypertension Hemiparesis affecting dominant side as late effect of stroke (HCC) Hemiplegia affecting dominant side, late effect of cerebrovascular disease Gastroesophageal reflux disease without esophagitis Esophageal reflux Genital herpes simplex type 1 infection Herpes simplex without mention of complication Asymptomatic postmenopausal status [facility] Diagnosis Trigger middle finger of right hand- Primary Trigger finger (acquired) Trigger ring finger of right hand Trigger finger (acquired) [facility] Diagnosis Moderate episode of recurrent major depressive disorder (HCC) [facility] Diagnosis Essential hypertension Unspecified essential hypertension Hemiparesis affecting dominant side as late effect of stroke (HCC) Hemiplegia affecting dominant side, late effect of cerebrovascular disease [facility] Diagnosis Right hip pain- Primary Pain in joint, pelvic region and thigh Hypertensive chronic kidney disease, unspecified CKD stage Hx of BKA, left (HCC) Obstruction of tear duct of both sides Type 2 diabetes mellitus with diabetic neuropathy, with long-term current use of insulin (HCC) Proliferative diabetic retinopathy of both 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, unspecified proliferative retinopathy type (HCC) PVD (peripheral vascular disease) (HCC) Peripheral vascular disease, unspecified Mixed hyperlipidemia Encounter for therapeutic drug monitoring [facility] Diagnosis Asymptomatic postmenopausal status [facility] Diagnosis Encounter for screening mammogram for breast cancer [facility]* Diagnosis Essential hypertension Unspecified essential hypertension Hemiparesis affecting dominant side as late effect of stroke (HCC) Hemiplegia affecting dominant side, late effect of cerebrovascular disease [facility] Diagnosis Essential hypertension Unspecified essential hypertension Hemiparesis affecting dominant side as late effect of stroke (HCC) Hemiplegia affecting dominant side, late effect of cerebrovascular disease [facility]* Diagnosis Type 2 diabetes mellitus with diabetic neuropathy, with long-term current use of insulin ([facility]) Essential hypertension Unspecified essential hypertension Hemiparesis affecting dominant side as late effect of stroke (HCC) Hemiplegia affecting dominant side, late effect of cerebrovascular disease [facility]* Diagnosis Type 2 diabetes mellitus with diabetic neuropathy, with long-term current use of insulin ([facility])- Primary documented in this encounter [facility] note* Diagnosis Moderate episode of recurrent major depressive disorder ([facility])- Primary Type 2 diabetes mellitus with stage 3b chronic kidney disease, with long-term current use of insulin ([facility]) Essential hypertension Unspecified essential hypertension Hemiparesis affecting dominant side as late effect of stroke (HCC) Hemiplegia affecting dominant side, late effect of cerebrovascular disease Gastroesophageal reflux disease without esophagitis Esophageal reflux Genital herpes simplex type 1 infection Herpes simplex without mention of complication Encounter for immunization Need for other specified prophylactic vaccination against single bacterial disease documented in this encounter [facility] note* Diagnosis Trigger finger, unspecified finger, unspecified laterality- Primary [facility]* Diagnosis Trigger middle finger of right hand- Primary Trigger finger (acquired) Trigger ring finger of right hand Trigger finger (acquired) Class 2 severe obesity due to excess calories with serious comorbidity and body mass index (BMI) of 36.0 to 36.9 in adult ([facility]) Type 2 diabetes mellitus with diabetic neuropathy, with long-term current use of insulin ([facility]) Weight gain Abnormal weight gain Constipation, unspecified constipation type Candidal intertrigo Candidiasis of skin and nails Genital herpes simplex type 1 infection Herpes simplex without mention of complication Right hip pain Pain in joint, pelvic region and thigh Anemia, unspecified type Osteoporosis without current pathological fracture, unspecified osteoporosis type Type 2 diabetes mellitus with stage 3b chronic kidney disease, with long-term current use of insulin ([facility]) Hypercalcemia Abdominal bloating Flatulence, eructation, and gas pain Hx of BKA, left (HCC) PVD (peripheral vascular disease) ([facility]) Peripheral vascular disease, unspecified documented in this encounter [facility] note* Diagnosis Type 2 diabetes mellitus with stage 3b chronic kidney disease, with long-term current use of insulin ([facility]) [facility]* Diagnosis Type 2 diabetes mellitus with stage 3b chronic kidney disease, with long-term current use of insulin ([facility])- Primary Medication management Encounter for long-term (current) use of other medications documented in this encounter [facility] note* Diagnosis Red eye- Primary Redness or discharge of eye [facility]* Diagnosis Change in financial circumstances- Primary documented [facility]* Diagnosis Type 2 diabetes mellitus with diabetic neuropathy, with long-term current use of insulin ([facility]) [facility]* Diagnosis Type 2 diabetes mellitus with stage 3b chronic kidney disease, with long-term current use of insulin ([facility])- Primary Medication management Encounter for long-term (current) use of other medications Type 2 diabetes mellitus with diabetic neuropathy, with long-term current use of insulin ([facility]) [facility]* Diagnosis Need for follow-up by health care social worker- Primary [facility]* Diagnosis Need for follow-up by health care social worker- Primary Needs assistance with community resources documented in this encounter [facility] note* Diagnosis Type 2 diabetes mellitus with stage 3b chronic kidney disease, with long-term current use of insulin ([facility])- Primary Type 2 diabetes mellitus with diabetic neuropathy, with long-term current use of insulin ([facility]) [facility]* Diagnosis Type 2 diabetes mellitus with stage 3b chronic kidney disease, with long-term current use of insulin ([facility])- Primary Moderate episode of recurrent major depressive disorder ([facility]) Essential hypertension Unspecified essential hypertension Gastroesophageal reflux disease without esophagitis Esophageal reflux Mixed hyperlipidemia Proliferative diabetic retinopathy associated with type 2 diabetes mellitus, macular edema presence unspecified, unspecified laterality (HCC) Muscular deconditioning Muscular wasting and disuse atrophy, not elsewhere classified Hx of BKA, left (HCC) [facility]* Diagnosis Encounter for therapeutic drug monitoring- Primary [facility]* Diagnosis Moderate episode of recurrent major depressive disorder (HCC) [facility]* Diagnosis Type 2 diabetes mellitus with stage 3b chronic kidney disease, with long-term current use of insulin (HCC)- Primary Medication management Encounter for long-term (current) use of other medications documented in this encounter [facility] note* Diagnosis Type 2 diabetes mellitus with diabetic neuropathy, with long-term current use of insulin (HCC) [facility]* Diagnosis Encounter for screening mammogram for breast cancer [facility]* Diagnosis Type 2 diabetes mellitus with stage 3b chronic kidney disease, with long-term current use of insulin (HCC) Type 2 diabetes mellitus with diabetic neuropathy, with long-term current use of insulin (HCC) [facility]* Diagnosis Type 2 diabetes mellitus with diabetic neuropathy, with long-term current use of insulin (HCC) PAD (peripheral artery disease) (HCC) Peripheral vascular disease, unspecified Diabetic ulcer of toe of right foot associated with type 2 diabetes mellitus, 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 Other problems of limbs documented in this encounter [facility] note* Diagnosis Diabetic ulcer of toe of right foot associated with type 2 diabetes mellitus, limited to breakdown of skin (HCC)- Primary Type 2 diabetes mellitus with diabetic neuropathy, with long-term current use of insulin (HCC) PAD (peripheral artery disease) (HCC) Peripheral vascular disease, unspecified Hx of amputation Other problems of limbs Type 2 diabetes mellitus with diabetic neuropathy, with long-term current use of insulin (HCC) PAD (peripheral artery disease) (HCC) Peripheral vascular disease, unspecified Diabetic ulcer of toe of right foot associated with type 2 diabetes mellitus, 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 Other problems of limbs [facility] Diagnosis Type 2 diabetes mellitus with diabetic neuropathy, with long-term current use of insulin (HCC) PAD (peripheral artery disease) (HCC) Peripheral vascular disease, unspecified Diabetic ulcer of toe of right foot associated with type 2 diabetes mellitus, 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 Other problems of limbs [facility]* Diagnosis PAD (peripheral artery disease) (HCC)- Primary Peripheral vascular disease, unspecified Diabetic ulcer of toe of right foot associated with type 2 diabetes mellitus, limited to breakdown of skin (HCC) Type 2 diabetes mellitus with diabetic neuropathy, with long-term current use of insulin (HCC) Other acute osteomyelitis of right foot (HCC) documented [facility]* Diagnosis PVD (peripheral vascular disease) (HCC)- Primary Peripheral vascular disease, unspecified Type 2 diabetes mellitus with stage 3b chronic kidney disease, with long-term current use of insulin (HCC) Type 2 diabetes mellitus with diabetic peripheral angiopathy with gangrene Acquired absence of left leg below knee Lower limb amputation, below knee [facility]* Diagnosis PAD (peripheral artery disease) (HCC)- Primary Peripheral vascular disease, unspecified PAD (peripheral artery disease) (HCC) Peripheral vascular disease, unspecified [facility]* Diagnosis PAD (peripheral artery disease) (HCC)- Primary Peripheral vascular disease, unspecified Type 2 diabetes mellitus with diabetic neuropathy, with long-term current use of insulin (HCC) Diabetic ulcer of toe of right foot associated with type 2 diabetes mellitus, limited to breakdown of skin (HCC) PAD (peripheral artery disease) ([facility]) Peripheral vascular disease, unspecified documented in this encounter [facility] note* Diagnosis Other acute osteomyelitis of right foot (HCC) Diabetic gastroparesis (HCC) (HCC)- Primary Type II or unspecified type diabetes mellitus with neurological manifestations, not stated as uncontrolled Hemiparesis affecting dominant side as late effect of stroke ([facility]) Hemiplegia affecting dominant side, late effect of cerebrovascular disease Essential hypertension Unspecified essential hypertension Mixed hyperlipidemia Hypertensive chronic kidney disease, unspecified CKD stage PVD (peripheral vascular disease) ([facility]) Peripheral vascular disease, unspecified Gastroesophageal reflux disease, unspecified whether esophagitis present Urinary retention Retention of urine, unspecified Type 2 diabetes mellitus with stage 3b chronic kidney disease, with long-term current use of insulin (HCC) Leukemoid reaction Recurrent major depression in partial remission (HCC) Major depressive disorder, recurrent episode, in partial or unspecified remission Obesity, Class I, BMI 30-34.9 Obesity, unspecified JOSE (obstructive sleep apnea) Obstructive sleep apnea (adult) (pediatric) documented in this encounter [facility] note* Diagnosis Pre-operative examination- Primary Preoperative examination, unspecified Diabetic gastroparesis (HCC) (HCC) Type II or unspecified type diabetes mellitus with neurological manifestations, not stated as uncontrolled Hemiparesis affecting dominant side as late effect of stroke (HCC) Hemiplegia affecting dominant side, late effect of cerebrovascular disease Essential hypertension Unspecified essential hypertension Mixed hyperlipidemia Hypertensive chronic kidney disease, unspecified CKD stage PVD (peripheral vascular disease) (HCC) Peripheral vascular disease, unspecified Gastroesophageal reflux disease, unspecified whether esophagitis present Urinary retention Retention of urine, unspecified Type 2 diabetes mellitus with stage 3b chronic kidney disease, with long-term current use of insulin ([facility]) Leukemoid reaction Recurrent major depression in partial remission (HCC) Major depressive disorder, recurrent episode, in partial or unspecified remission Obesity, Class I, BMI 30-34.9 Obesity, unspecified JOSE (obstructive sleep apnea) Obstructive sleep apnea (adult) (pediatric) * Assessment & Plan Note - Holly James APRN.CNP - 10/09/2024 10:21 AM EST Associated Problem(s): JOSE (obstructive sleep apnea) Assessment: cwcp * Assessment & Plan Note - Holly James APRN.CNP - 10/09/2024 10:18 AM EST Associated Problem(s): Obesity, Class I, BMI 30-34.9 Assessment: Body mass index is 33.11 kg/m . * Assessment & Plan Note - Holly James APRN.CNP - 10/09/2024 10:18 AM EST Associated Problem(s): Recurrent major depression in partial remission (HCC) Assessment: stable on rx per pt * Assessment & Plan Note - Holly James APRN.CNP - 10/09/2024 10:18 AM EST Associated Problem(s): Leukocytosis Assessment: chronic WBC Date Value Ref Range Status 12/11/2023 9.99 3.70 - 11.00 k/uL Final * Assessment & Plan Note - Holly James APRN.CNP - 10/09/2024 10:17 AM EST Associated Problem(s): Type 2 diabetes mellitus with stage 3b chronic kidney disease, with long-term current use of insulin (HCC) Assessment: IDDM Hemoglobin A1C (%) Date Value 06/13/2024 6.1 05/09/2021 5.4 * Assessment & Plan Note - Holly James APRN.CNP - 10/09/2024 10:17 AM EST Associated Problem(s): Urinary retention Assessment: controlled on rx * Assessment & Plan Note - Holly James APRN.CNP - 10/09/2024 10:17 AM EST Associated Problem(s): Gastroesophageal reflux disease Assessment: controlled on rx * Assessment & Plan Note - Holly James APRN.CNP - 10/09/2024 10:11 AM EST Associated Problem(s): PVD (peripheral vascular disease) (HCC) Assessment: following vascular, pending procedure, Most recent PVRs showing a TBI on the right of 0.15 with severely diminished waveforms. Previously underwent left leg angiogram with intervention SFA stenting with Dr. 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 * Assessment & Plan Note - Holly James APRN.BG - 10/09/2024 10:08 AM EST Associated Problem(s): Hypertensive CKD (chronic kidney disease) Assessment: Creatinine Date Value Ref Range Status 06/13/2024 1.78 (H) 0.58 - 0.96 mg/dL Final 12/11/2023 1.68 (H) 0.58 - 0.96 mg/dL Final 12/07/2022 1.93 (H) 0.58 - 0.96 mg/dL Final 05/09/2021 1.77 (H) 0.58 - 0.96 mg/dL Final * Assessment & Plan Note - Holly James APRN.CNP - 10/09/2024 10:08 AM EST Associated Problem(s): Hyperlipidemia Assessment: c/w statin * Assessment & Plan Note - Holly James APRN.CNP - 10/09/2024 10:06 AM EST Associated Problem(s): Essential hypertension Assessment: controlled on rx Last 14 BP Last 14 Encounter BP Readings: Date: BP: 10/09/2024 132/66 09/29/2024 122/62 06/13/2024 157/70 04/03/2024 146/68 03/17/2024 108/58 06/13/2023 130/54 05/15/2023 118/68 04/10/2023 136/82 12/11/2022 122/64 10/12/2021 132/62 10/05/2020 130/70 09/20/2020 150/90 08/31/2020 118/64 08/16/2020 106/58 * Assessment & Plan Note - Holly James APRN.CNP - 10/09/2024 10:06 AM EST Associated Problem(s): Hemiparesis affecting dominant side as late effect of stroke (HCC) Assessment: hx, and with left BKA, pt can transfer with stand by assist * Assessment & Plan Note - Holly James APRN.CNP - 10/09/2024 10:05 AM EST Associated Problem(s): Diabetic gastroparesis (HCC) (HCC) Assessment: NPO after MN [facility]* Diagnosis Pre-operative examination- Primary Preoperative examination, unspecified Diabetic gastroparesis (HCC) (HCC) Type II or unspecified type diabetes mellitus with neurological manifestations, not stated as uncontrolled Hemiparesis affecting dominant side as late effect of stroke (HCC) Hemiplegia affecting dominant side, late effect of cerebrovascular disease Essential hypertension Unspecified essential hypertension Mixed hyperlipidemia Hypertensive chronic kidney disease, unspecified CKD stage PVD (peripheral vascular disease) (HCC) Peripheral vascular disease, unspecified Gastroesophageal reflux disease, unspecified whether esophagitis present Urinary retention Retention of urine, unspecified Type 2 diabetes mellitus with stage 3b chronic kidney disease, with long-term current use of insulin (HCC) Leukemoid reaction Recurrent major depression in partial remission (HCC) Major depressive disorder, recurrent episode, in partial or unspecified remission Obesity, Class I, BMI 30-34.9 Obesity, unspecified JOSE (obstructive sleep apnea) Obstructive sleep apnea (adult) (pediatric) PVD (peripheral vascular disease) ([facility])- Primary Peripheral vascular disease, unspecified documented in this encounter [facility] note* Diagnosis Pre-operative examination- Primary Preoperative examination, unspecified Diabetic gastroparesis (HCC) (HCC) Type II or unspecified type diabetes mellitus with neurological manifestations, not stated as uncontrolled Hemiparesis affecting dominant side as late effect of stroke (HCC) Hemiplegia affecting dominant side, late effect of cerebrovascular disease Essential hypertension Unspecified essential hypertension Mixed hyperlipidemia Hypertensive chronic kidney disease, unspecified CKD stage PVD (peripheral vascular disease) (HCC) Peripheral vascular disease, unspecified Gastroesophageal reflux disease, unspecified whether esophagitis present Urinary retention Retention of urine, unspecified Type 2 diabetes mellitus with stage 3b chronic kidney disease, with long-term current use of insulin (HCC) Leukemoid reaction Recurrent major depression in partial remission (HCC) Major depressive disorder, recurrent episode, in partial or unspecified remission Obesity, Class I, BMI 30-34.9 Obesity, unspecified JOSE (obstructive sleep apnea) Obstructive sleep apnea (adult) (pediatric) Acute cough- Primary Community acquired pneumonia, unspecified laterality Acute cough documented in this encounter [facility] note* Diagnosis Pre-operative examination- Primary Preoperative examination, unspecified Diabetic gastroparesis (HCC) (HCC) Type II or unspecified type diabetes mellitus with neurological manifestations, not stated as uncontrolled Hemiparesis affecting dominant side as late effect of stroke (HCC) Hemiplegia affecting dominant side, late effect of cerebrovascular disease Essential hypertension Unspecified essential hypertension Mixed hyperlipidemia Hypertensive chronic kidney disease, unspecified CKD stage PVD (peripheral vascular disease) (HCC) Peripheral vascular disease, unspecified Gastroesophageal reflux disease, unspecified whether esophagitis present Urinary retention Retention of urine, unspecified Type 2 diabetes mellitus with stage 3b chronic kidney disease, with long-term current use of insulin (HCC) Leukemoid reaction Recurrent major depression in partial remission (HCC) Major depressive disorder, recurrent episode, in partial or unspecified remission Obesity, Class I, BMI 30-34.9 Obesity, unspecified JOSE (obstructive sleep apnea) Obstructive sleep apnea (adult) (pediatric) Acute cough documented in this encounter [facility] note* Diagnosis Pre-operative examination- Primary Preoperative examination, unspecified Diabetic gastroparesis (HCC) (HCC) Type II or unspecified type diabetes mellitus with neurological manifestations, not stated as uncontrolled Hemiparesis affecting dominant side as late effect of stroke (HCC) Hemiplegia affecting dominant side, late effect of cerebrovascular disease Essential hypertension Unspecified essential hypertension Mixed hyperlipidemia Hypertensive chronic kidney disease, unspecified CKD stage PVD (peripheral vascular disease) (HCC) Peripheral vascular disease, unspecified Gastroesophageal reflux disease, unspecified whether esophagitis present Urinary retention Retention of urine, unspecified Type 2 diabetes mellitus with stage 3b chronic kidney disease, with long-term current use of insulin (HCC) Leukemoid reaction Recurrent major depression in partial remission (HCC) Major depressive disorder, recurrent episode, in partial or unspecified remission Obesity, Class I, BMI 30-34.9 Obesity, unspecified JOSE (obstructive sleep apnea) Obstructive sleep apnea (adult) (pediatric) Pneumonia of left lower lobe due to infectious organism- Primary documented in this encounter [facility] note* Diagnosis Pre-operative examination- Primary Preoperative examination, unspecified Diabetic gastroparesis (HCC) (HCC) Type II or unspecified type diabetes mellitus with neurological manifestations, not stated as uncontrolled Hemiparesis affecting dominant side as late effect of stroke (HCC) Hemiplegia affecting dominant side, late effect of cerebrovascular disease Essential hypertension Unspecified essential hypertension Mixed hyperlipidemia Hypertensive chronic kidney disease, unspecified CKD stage PVD (peripheral vascular disease) (HCC) Peripheral vascular disease, unspecified Gastroesophageal reflux disease, unspecified whether esophagitis present Urinary retention Retention of urine, unspecified Type 2 diabetes mellitus with stage 3b chronic kidney disease, with long-term current use of insulin (HCC) Leukemoid reaction Recurrent major depression in partial remission (HCC) Major depressive disorder, recurrent episode, in partial or unspecified remission Obesity, Class I, BMI 30-34.9 Obesity, unspecified JOSE (obstructive sleep apnea) Obstructive sleep apnea (adult) (pediatric) Pneumonia of left lower lobe due to infectious organism- Primary documented in this encounter [facility] note* Diagnosis Pre-operative examination- Primary Preoperative examination, unspecified Diabetic gastroparesis (HCC) (HCC) Type II or unspecified type diabetes mellitus with neurological manifestations, not stated as uncontrolled Hemiparesis affecting dominant side as late effect of stroke (HCC) Hemiplegia affecting dominant side, late effect of cerebrovascular disease Essential hypertension Unspecified essential hypertension Mixed hyperlipidemia Hypertensive chronic kidney disease, unspecified CKD stage PVD (peripheral vascular disease) (HCC) Peripheral vascular disease, unspecified Gastroesophageal reflux disease, unspecified whether esophagitis present Urinary retention Retention of urine, unspecified Type 2 diabetes mellitus with stage 3b chronic kidney disease, with long-term current use of insulin (HCC) Leukemoid reaction Recurrent major depression in partial remission (HCC) Major depressive disorder, recurrent episode, in partial or unspecified remission Obesity, Class I, BMI 30-34.9 Obesity, unspecified JOSE (obstructive sleep apnea) Obstructive sleep apnea (adult) (pediatric) Pneumonia of left lower lobe due to infectious organism documented in this encounter [facility] note* Diagnosis Pre-operative examination- Primary Preoperative examination, unspecified Diabetic gastroparesis (HCC) (HCC) Type II or unspecified type diabetes mellitus with neurological manifestations, not stated as uncontrolled Hemiparesis affecting dominant side as late effect of stroke (HCC) Hemiplegia affecting dominant side, late effect of cerebrovascular disease Essential hypertension Unspecified essential hypertension Mixed hyperlipidemia Hypertensive chronic kidney disease, unspecified CKD stage PVD (peripheral vascular disease) (HCC) Peripheral vascular disease, unspecified Gastroesophageal reflux disease, unspecified whether esophagitis present Urinary retention Retention of urine, unspecified Type 2 diabetes mellitus with stage 3b chronic kidney disease, with long-term current use of insulin (HCC) Leukemoid reaction Recurrent major depression in partial remission (HCC) Major depressive disorder, recurrent episode, in partial or unspecified remission Obesity, Class I, BMI 30-34.9 Obesity, unspecified JOSE (obstructive sleep apnea) Obstructive sleep apnea (adult) (pediatric) Essential hypertension Unspecified essential hypertension [facility] Diagnosis Pre-operative examination- Primary Preoperative examination, unspecified Diabetic gastroparesis (HCC) ([facility]) Type II or unspecified type diabetes mellitus with neurological manifestations, not stated as uncontrolled Hemiparesis affecting dominant side as late effect of stroke (HCC) Hemiplegia affecting dominant side, late effect of cerebrovascular disease Essential hypertension Unspecified essential hypertension Mixed hyperlipidemia Hypertensive chronic kidney disease, unspecified CKD stage PVD (peripheral vascular disease) ([facility]) Peripheral vascular disease, unspecified Gastroesophageal reflux disease, unspecified whether esophagitis present Urinary retention Retention of urine, unspecified Type 2 diabetes mellitus with stage 3b chronic kidney disease, with long-term current use of insulin ([facility]) Leukemoid reaction Recurrent major depression in partial remission (HCC) Major depressive disorder, recurrent episode, in partial or unspecified remission Obesity, Class I, BMI 30-34.9 Obesity, unspecified JOSE (obstructive sleep apnea) Obstructive sleep apnea (adult) (pediatric) Type 2 diabetes mellitus with diabetic neuropathy, with long-term current use of insulin ([facility]) [facility]* Diagnosis Pre-operative examination- Primary Preoperative examination, unspecified Diabetic gastroparesis (HCC) (HCC) Type II or unspecified type diabetes mellitus with neurological manifestations, not stated as uncontrolled Hemiparesis affecting dominant side as late effect of stroke (HCC) Hemiplegia affecting dominant side, late effect of cerebrovascular disease Essential hypertension Unspecified essential hypertension Mixed hyperlipidemia Hypertensive chronic kidney disease, unspecified CKD stage PVD (peripheral vascular disease) (HCC) Peripheral vascular disease, unspecified Gastroesophageal reflux disease, unspecified whether esophagitis present Urinary retention Retention of urine, unspecified Type 2 diabetes mellitus with stage 3b chronic kidney disease, with long-term current use of insulin (HCC) Leukemoid reaction Recurrent major depression in partial remission (HCC) Major depressive disorder, recurrent episode, in partial or unspecified remission Obesity, Class I, BMI 30-34.9 Obesity, unspecified JOSE (obstructive sleep apnea) Obstructive sleep apnea (adult) (pediatric) Eschar- Primary Changes in skin texture PAD (peripheral artery disease) ([facility]) Peripheral vascular disease, unspecified Type 2 diabetes mellitus with diabetic neuropathy, with long-term current use of insulin ([facility]) Hx of amputation Other problems of limbs Ulcer of toe of right foot, limited to breakdown of skin ([facility]) Type 2 diabetes mellitus with diabetic peripheral angiopathy without gangrene, unspecified whether intermodal customer service insulin use ([facility]) [E11.51] [facility] Diagnosis Pre-operative examination- Primary Preoperative examination, unspecified Diabetic gastroparesis (HCC) ([facility]) Type II or unspecified type diabetes mellitus with neurological manifestations, not stated as uncontrolled Hemiparesis affecting dominant side as late effect of stroke (HCC) Hemiplegia affecting dominant side, late effect of cerebrovascular disease Essential hypertension Unspecified essential hypertension Mixed hyperlipidemia Hypertensive chronic kidney disease, unspecified CKD stage PVD (peripheral vascular disease) ([facility]) Peripheral vascular disease, unspecified Gastroesophageal reflux disease, unspecified whether esophagitis present Urinary retention Retention of urine, unspecified Type 2 diabetes mellitus with stage 3b chronic kidney disease, with long-term current use of insulin ([facility]) Leukemoid reaction Recurrent major depression in partial remission (HCC) Major depressive disorder, recurrent episode, in partial or unspecified remission Obesity, Class I, BMI 30-34.9 Obesity, unspecified JOSE (obstructive sleep apnea) Obstructive sleep apnea (adult) (pediatric) Essential hypertension Unspecified essential hypertension Hemiparesis affecting dominant side as late effect of stroke (HCC) Hemiplegia affecting dominant side, late effect of cerebrovascular disease [facility] Diagnosis Pre-operative examination- Primary Preoperative examination, unspecified Diabetic gastroparesis (HCC) (HCC) Type II or unspecified type diabetes mellitus with neurological manifestations, not stated as uncontrolled Hemiparesis affecting dominant side as late effect of stroke (HCC) Hemiplegia affecting dominant side, late effect of cerebrovascular disease Essential hypertension Unspecified essential hypertension Mixed hyperlipidemia Hypertensive chronic kidney disease, unspecified CKD stage PVD (peripheral vascular disease) (HCC) Peripheral vascular disease, unspecified Gastroesophageal reflux disease, unspecified whether esophagitis present Urinary retention Retention of urine, unspecified Type 2 diabetes mellitus with stage 3b chronic kidney disease, with long-term current use of insulin (HCC) Leukemoid reaction Recurrent major depression in partial remission (HCC) Major depressive disorder, recurrent episode, in partial or unspecified remission Obesity, Class I, BMI 30-34.9 Obesity, unspecified JOSE (obstructive sleep apnea) Obstructive sleep apnea (adult) (pediatric) Acute viral syndrome- Primary Unspecified viral infection, in conditions classified elsewhere and of unspecified site Nausea and vomiting, unspecified vomiting type Hemiparesis affecting dominant side as late effect of stroke (HCC) Hemiplegia affecting dominant side, late effect of cerebrovascular disease Type 2 diabetes mellitus with stage 3b chronic kidney disease, with long-term current use of insulin (HCC) [facility]* Diagnosis Pre-operative examination- Primary Preoperative examination, unspecified Diabetic gastroparesis (HCC) Type II or unspecified type diabetes mellitus with neurological manifestations, not stated as uncontrolled Hemiparesis affecting dominant side as late effect of stroke (HCC) Hemiplegia affecting dominant side, late effect of cerebrovascular disease Essential hypertension Unspecified essential hypertension Mixed hyperlipidemia Hypertensive chronic kidney disease, unspecified CKD stage PVD (peripheral vascular disease) Peripheral vascular disease, unspecified Gastroesophageal reflux disease, unspecified whether esophagitis present Urinary retention Retention of urine, unspecified Type 2 diabetes mellitus with stage 3b chronic kidney disease, with long-term current use of insulin (HCC) Leukemoid reaction Recurrent major depression in partial remission Major depressive disorder, recurrent episode, in partial or unspecified remission Obesity, Class I, BMI 30-34.9 Obesity, unspecified JOSE (obstructive sleep apnea) Obstructive sleep apnea (adult) (pediatric) PVD (peripheral vascular disease)- Primary Peripheral vascular disease, unspecified [facility] noteNo assessment information availableWSelect [facility] Work Phone: Evaluation note* Diagnosis Pre-operative examination- Primary Preoperative examination, unspecified Diabetic gastroparesis (HCC) Type II or unspecified type diabetes mellitus with neurological manifestations, not stated as uncontrolled Hemiparesis affecting dominant side as late effect of stroke (HCC) Hemiplegia affecting dominant side, late effect of cerebrovascular disease Essential hypertension Unspecified essential hypertension Mixed hyperlipidemia Hypertensive chronic kidney disease, unspecified CKD stage PVD (peripheral vascular disease) Peripheral vascular disease, unspecified Gastroesophageal reflux disease, unspecified whether esophagitis present Urinary retention Retention of urine, unspecified Type 2 diabetes mellitus with stage 3b chronic kidney disease, with long-term current use of insulin (HCC) Leukemoid reaction Recurrent major depression in partial remission Major depressive disorder, recurrent episode, in partial or unspecified remission Obesity, Class I, BMI 30-34.9 Obesity, unspecified JOSE (obstructive sleep apnea) Obstructive sleep apnea (adult) (pediatric) Genital herpes simplex type 1 infection Herpes simplex without mention of complication [facility]* Diagnosis Pre-operative examination- Primary Preoperative examination, unspecified Diabetic gastroparesis (HCC) Type II or unspecified type diabetes mellitus with neurological manifestations, not stated as uncontrolled Hemiparesis affecting dominant side as late effect of stroke (HCC) Hemiplegia affecting dominant side, late effect of cerebrovascular disease Essential hypertension Unspecified essential hypertension Mixed hyperlipidemia Hypertensive chronic kidney disease, unspecified CKD stage PVD (peripheral vascular disease) Peripheral vascular disease, unspecified Gastroesophageal reflux disease, unspecified whether esophagitis present Urinary retention Retention of urine, unspecified Type 2 diabetes mellitus with stage 3b chronic kidney disease, with long-term current use of insulin (HCC) Leukemoid reaction Recurrent major depression in partial remission Major depressive disorder, recurrent episode, in partial or unspecified remission Obesity, Class I, BMI 30-34.9 Obesity, unspecified JOSE (obstructive sleep apnea) Obstructive sleep apnea (adult) (pediatric) Essential hypertension Unspecified essential hypertension documented in this encounter [facility] note* Diagnosis Pre-operative examination- Primary Preoperative examination, unspecified Diabetic gastroparesis (HCC) Type II or unspecified type diabetes mellitus with neurological manifestations, not stated as uncontrolled Hemiparesis affecting dominant side as late effect of stroke (HCC) Hemiplegia affecting dominant side, late effect of cerebrovascular disease Essential hypertension Unspecified essential hypertension Mixed hyperlipidemia Hypertensive chronic kidney disease, unspecified CKD stage PVD (peripheral vascular disease) Peripheral vascular disease, unspecified Gastroesophageal reflux disease, unspecified whether esophagitis present Urinary retention Retention of urine, unspecified Type 2 diabetes mellitus with stage 3b chronic kidney disease, with long-term current use of insulin (HCC) Leukemoid reaction Recurrent major depression in partial remission Major depressive disorder, recurrent episode, in partial or unspecified remission Obesity, Class I, BMI 30-34.9 Obesity, unspecified JOSE (obstructive sleep apnea) Obstructive sleep apnea (adult) (pediatric) Self-care deficit- Primary Moderate episode of recurrent major depressive disorder (HCC) Type 2 diabetes mellitus with diabetic neuropathy, with long-term current use of insulin (HCC) 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) Pain of left lower extremity Type 2 diabetes mellitus with stage 3b chronic kidney disease, 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 limb syndrome with pain (HCC) Phantom limb (syndrome) Unilateral complete BKA, left, sequela (HCC) [facility] Diagnosis Pre-operative examination- Primary Preoperative examination, unspecified Diabetic gastroparesis (HCC) Type II or unspecified type diabetes mellitus with neurological manifestations, not stated as uncontrolled Hemiparesis affecting dominant side as late effect of stroke (HCC) Hemiplegia affecting dominant side, late effect of cerebrovascular disease Essential hypertension Unspecified essential hypertension Mixed hyperlipidemia Hypertensive chronic kidney disease, unspecified CKD stage PVD (peripheral vascular disease) Peripheral vascular disease, unspecified Gastroesophageal reflux disease, unspecified whether esophagitis present Urinary retention Retention of urine, unspecified Type 2 diabetes mellitus with stage 3b chronic kidney disease, with long-term current use of insulin (HCC) Leukemoid reaction Recurrent major depression in partial remission Major depressive disorder, recurrent episode, in partial or unspecified remission Obesity, Class I, BMI 30-34.9 Obesity, unspecified JOSE (obstructive sleep apnea) Obstructive sleep apnea (adult) (pediatric) Genital herpes simplex type 1 infection Herpes simplex without mention of complication Moderate episode of recurrent major depressive disorder (HCC) Essential hypertension Unspecified essential hypertension Hemiparesis affecting dominant side as late effect of stroke (HCC) Hemiplegia affecting dominant side, late effect of cerebrovascular disease Candidal intertrigo Candidiasis of skin and nails Gastroesophageal reflux disease without esophagitis Esophageal reflux [facility] Diagnosis Pre-operative examination- Primary Preoperative examination, unspecified Diabetic gastroparesis (HCC) Type II or unspecified type diabetes mellitus with neurological manifestations, not stated as uncontrolled Hemiparesis affecting dominant side as late effect of stroke (HCC) Hemiplegia affecting dominant side, late effect of cerebrovascular disease Essential hypertension Unspecified essential hypertension Mixed hyperlipidemia Hypertensive chronic kidney disease, unspecified CKD stage PVD (peripheral vascular disease) Peripheral vascular disease, unspecified Gastroesophageal reflux disease, unspecified whether esophagitis present Urinary retention Retention of urine, unspecified Type 2 diabetes mellitus with stage 3b chronic kidney disease, with long-term current use of insulin (HCC) Leukemoid reaction Recurrent major depression in partial remission Major depressive disorder, recurrent episode, in partial or unspecified remission Obesity, Class I, BMI 30-34.9 Obesity, unspecified JOSE (obstructive sleep apnea) Obstructive sleep apnea (adult) (pediatric) Type 2 diabetes mellitus with stage 3b chronic kidney disease, with long-term current use of insulin (HCC) [facility]* Diagnosis Pre-operative examination- Primary Preoperative examination, unspecified Diabetic gastroparesis (HCC) Type II or unspecified type diabetes mellitus with neurological manifestations, not stated as uncontrolled Hemiparesis affecting dominant side as late effect of stroke (HCC) Hemiplegia affecting dominant side, late effect of cerebrovascular disease Essential hypertension Unspecified essential hypertension Mixed hyperlipidemia Hypertensive chronic kidney disease, unspecified CKD stage PVD (peripheral vascular disease) Peripheral vascular disease, unspecified Gastroesophageal reflux disease, unspecified whether esophagitis present Urinary retention Retention of urine, unspecified Type 2 diabetes mellitus with stage 3b chronic kidney disease, with long-term current use of insulin (HCC) Leukemoid reaction Recurrent major depression in partial remission Major depressive disorder, recurrent episode, in partial or unspecified remission Obesity, Class I, BMI 30-34.9 Obesity, unspecified JOSE (obstructive sleep apnea) Obstructive sleep apnea (adult) (pediatric) Type 2 diabetes mellitus with diabetic neuropathy, with long-term current use of insulin (HCC) 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) Pain of left lower extremity Unilateral complete BKA, left, sequela (HCC) [facility]* Diagnosis Pre-operative examination- Primary Preoperative examination, unspecified Diabetic gastroparesis (HCC) Type II or unspecified type diabetes mellitus with neurological manifestations, not stated as uncontrolled Hemiparesis affecting dominant side as late effect of stroke (HCC) Hemiplegia affecting dominant side, late effect of cerebrovascular disease Essential hypertension Unspecified essential hypertension Mixed hyperlipidemia Hypertensive chronic kidney disease, unspecified CKD stage PVD (peripheral vascular disease) Peripheral vascular disease, unspecified Gastroesophageal reflux disease, unspecified whether esophagitis present Urinary retention Retention of urine, unspecified Type 2 diabetes mellitus with stage 3b chronic kidney disease, with long-term current use of insulin (HCC) Leukemoid reaction Recurrent major depression in partial remission Major depressive disorder, recurrent episode, in partial or unspecified remission Obesity, Class I, BMI 30-34.9 Obesity, unspecified JOSE (obstructive sleep apnea) Obstructive sleep apnea (adult) (pediatric) Type 2 diabetes mellitus with stage 3b chronic kidney disease, with long-term current use of insulin (HCC)- Primary Screening for diabetic retinopathy Screening for other eye conditions Encounter for immunization Need for other specified prophylactic vaccination against single bacterial disease Encounter for screening mammogram for breast cancer Class 2 severe obesity due to excess calories with serious comorbidity and body mass index (BMI) of 36.0 to 36.9 in adult (HCC) Proliferative diabetic retinopathy associated with type 2 diabetes mellitus, macular edema presence unspecified, unspecified laterality (HCC) [facility] Diagnosis Pre-operative examination- Primary Preoperative examination, unspecified Diabetic gastroparesis (HCC) Type II or unspecified type diabetes mellitus with neurological manifestations, not stated as uncontrolled Hemiparesis affecting dominant side as late effect of stroke (HCC) Hemiplegia affecting dominant side, late effect of cerebrovascular disease Essential hypertension Unspecified essential hypertension Mixed hyperlipidemia Hypertensive chronic kidney disease, unspecified CKD stage PVD (peripheral vascular disease) Peripheral vascular disease, unspecified Gastroesophageal reflux disease, unspecified whether esophagitis present Urinary retention Retention of urine, unspecified Type 2 diabetes mellitus with stage 3b chronic kidney disease, with long-term current use of insulin (HCC) Leukemoid reaction Recurrent major depression in partial remission Major depressive disorder, recurrent episode, in partial or unspecified remission Obesity, Class I, BMI 30-34.9 Obesity, unspecified JOSE (obstructive sleep apnea) Obstructive sleep apnea (adult) (pediatric) PVD (peripheral vascular disease)- Primary Peripheral vascular disease, unspecified [facility] Additional Instructions Follow-up with your PCP. Stay well-hydrated. Return for any worsening symptoms. [facility] Work Phone: Reason for referral (narrative)* Diagnostic Procedure Only (Routine) - Closed Specialty Diagnoses / Procedures Referred By Rafal bang Referred To Contact [facility] Diagnoses Encounter for screening mammogram for breast cancer Procedures ARNULFO SCREENING SCREENING MAMMOGRAPHY BI 2-VIEW BREAST INC Earl Borges MD [id number] [place] [address] [facility] [address] [place] [address] Referral ID Status Reason Start Date Expiration Date V isits Requested Visits Authorized [id number] Closed Auto-Generate d Referral 11/23/2021 12/23/2022 1 1 [facility] for referral (narrative)* Diagnostic Procedure Only (Routine) - New Request Specialty Diagnoses / Procedures Referred By Rafal t Referred To Contact BR IMAGING Diagnoses Encounter for screening mammogram for breast cancer Procedures ARNULFO SCREENING W MISHA SCREENING DIGITAL BREAST TOMOSYNTHESIS BI SCREENING MAMMOGRAPHY BI 2-VIEW BREAST INC Earl Borges MD [address] [place] [address] Br Imaging [address] [place] [address] Referral ID Status Reason Start Date Expiration Date Visits Requested Visits Authorized [id number] New Request Auto-Generat ed Referral 09/19/2025 1 1 [facility] for referral (narrative)* Diagnostic Procedure Only (Routine) - Closed Specialty Diagnoses / Procedures Referred By Rafal bang Referred To Contact XR IMAGING Diagnoses Type 2 diabetes mellitus with diabetic neuropathy, with long-term current use of insulin (HCC) PAD (peripheral artery disease) (HCC) Diabetic ulcer of toe of right foot associated with type 2 diabetes mellitus, 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 Procedures XR FOOT GENERAL 3V AP/LAT/OBL RIGHT RADEX FOOT COMPLETE MINIMUM 3 VIEWS Leti Roger DPM [address] [facility] [address] [place] [address] [place] [address] Referral ID Status Reason Start Date Expiration Date V isits Requested Visits Authorized [id number] Closed Auto-Generate d Referral 09/17/2024 10/17/2025 1 1 [facility] for referral (narrative)* Diagnostic Procedure Only (Routine) - Closed Specialty Diagnoses / Procedures Referred By Contac t Referred To Contact XR IMAGING Diagnoses Type 2 diabetes mellitus with diabetic neuropathy, with long-term current use of insulin (HCC) PAD (peripheral artery disease) (HCC) Diabetic ulcer of toe of right foot associated with type 2 diabetes mellitus, 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 Procedures XR FOOT GENERAL 3V AP/LAT/OBL RIGHT RADEX FOOT COMPLETE MINIMUM 3 VIEWS Leti Roger DPM [address] [place] [address] [place] [address] Xr Imaging [place] [address] Referral ID Status Reason Start Date Expiration Date V isits Requested Visits Authorized [id number] Closed Auto-Generate d Referral 09/17/2024 10/17/2025 1 1 * Diagnostic Procedure Only (Urgent) - Authorized Specialty Diagnoses / Procedures Referred By Contac t Referred To Contact US IMAGING Diagnoses Type 2 diabetes mellitus with diabetic neuropathy, with long-term current use of insulin (HCC) PAD (peripheral artery disease) (HCC) Diabetic ulcer of toe of right foot associated with type 2 diabetes mellitus, 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 Procedures US ARTERIAL PVR LOWER NON-INVASIVE PHYSIOLOGIC STUDY EXTREMITY 3 Leti Birmingham DPM [address] [place] [address] [place] [address] [id number] Referral ID Status Reason Start Date Expiration Date Visits Requested Visits Authorized [id number] Authorized Auto-Generat ed Referral 4 10/17/2025 1 1 [facility] Diagnostic Procedure Only (Urgent) - Closed Specialty Diagnoses / Procedures Referred By Contac t Referred To Contact US IMAGING Diagnoses Type 2 diabetes mellitus with diabetic neuropathy, with long-term current use of insulin (HCC) PAD (peripheral artery disease) (HCC) Diabetic ulcer of toe of right foot associated with type 2 diabetes mellitus, 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 Procedures US ARTERIAL PVR LOWER NON-INVASIVE PHYSIOLOGIC STUDY EXTREMITY 3 Leti Birmingham DPM [address] [place] [address] [place] [address] [place] [id number] Referral ID Status Reason Start Date Expiration Date V isits Requested Visits Authorized [id number] Closed Auto-Generate d Referral 09/17/2024 10/17/2025 1 1 [facility] for referral (narrative)* Outpatient Procedure (Routine) - New Request Specialty Diagnoses / Procedures Referred By Contac t Referred To Contact [facility] Diagnoses PVD (peripheral vascular disease) (HCC) Procedures PVR ANK PRESS KIRSTIE VAS LAB NON-INVAS PHYSIOLOGIC STD EXTREMITY ART 2 LEVEL Odin Dobbins MD [address] [place] [address] [facility] [place] [address] [place] [address] Referral ID Status Reason Start Date Expiration Date Visits Requested Visits Authorized [id number] New Request Auto-Generat ed Referral 11/10/2024 10/10/2025 1 1 * Outpatient Procedure (Routine) - New Request Specialty Diagnoses / Procedures Referred By Contac t Referred To Contact [facility] Diagnoses PVD (peripheral vascular disease) (HCC) Procedures US LEG ARTERIAL PERIPH UNL VAS LAB DUP-SCAN LXTR ART/ARTL BPGS UNI/LMTD STUDY Odin Dobbins MD [address] [place] [address] [place] [address] [place] [address] Referral ID Status Reason Start Date Expiration Date Visits Requested Visits Authorized [id number] New Request Auto-Generat ed Referral 11/10/2024 10/10/2025 1 1 [facility] for referral (narrative)No reason for referral information availableWSelect [facility] Work Phone: Reason for visit Narrative* Diagnostic Procedure Only (Routine) - Closed Specialty Diagnoses / Procedures Referred By Contac t Referred To Contact BR IMAGING Diagnoses Encounter for screening mammogram for breast cancer Procedures ARNULFO SCREENING SCREENING MAMMOGRAPHY BI 2-VIEW BREAST INC Earl Borges MD [address] [place] [address] Br Imaging [address] [place] [address] Referral ID Status Reason Start Date Expiration Date V isits Requested Visits Authorized [id number] Closed Auto-Generate d Referral 11/23/2021 12/23/2022 1 1 [facility] for visit Narrative* Diagnostic Procedure Only (Routine) - Closed Specialty Diagnoses / Procedures Referred By Contac t Referred To Contact BR IMAGING Diagnoses Encounter for screening mammogram for breast cancer Procedures ARNULFO SCREENING SCREENING MAMMOGRAPHY BI 2-VIEW BREAST INC Earl Borges MD [facility] [place] [address] Br Imaging [address] [place] [address] Referral ID Status Reason Start Date Expiration Date V isits Requested Visits Authorized [id number] Closed Auto-Generate d Referral 09/12/2023 10/11/2024 1 1 [facility] for visit Narrative* Diagnostic Procedure Only (Routine) - Closed Specialty Diagnoses / Procedures Referred By Rafal t Referred To Contact XR IMAGING Diagnoses Type 2 diabetes mellitus with diabetic neuropathy, with long-term current use of insulin (HCC) PAD (peripheral artery disease) (HCC) Diabetic ulcer of toe of right foot associated with type 2 diabetes mellitus, 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 Procedures XR FOOT GENERAL 3V AP/LAT/OBL RIGHT RADEX FOOT COMPLETE MINIMUM 3 VIEWS Leti Roger DPM [address] [address] [place] [address] [place] [address] Referral ID Status Reason Start Date Expiration Date V isits Requested Visits Authorized [id number] Closed Auto-Generate d Referral 09/17/2024 10/17/2025 1 1 [facility] Summary Purpose Family History Relationship Condition Age at Onset Recorded Date/T rigoberto father Coronary artery disease Unknown Status post three ve ssel coronary artery bypass Unknown Diabetes mellitus Unknown Hypertension Unknown Myocardial infarction Unknown mother Coronary artery disease Unknown Presence of stent in coronary artery Unkn own sister Diabetes mellitus Unknown Advance Directives Documents on File Type Date 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 Advance Directive(s) 07/20/2020 10:08 AM Advance Directive(s) 06/08/2020 12:37 PM Advance Directive(s) 12/09/2019 1:15 PM Advance Directive(s) 11/04/2019 6:17 AM Advance Directive(s) 01/14/2018 7:40 AM Advance Directive(s) 11/26/2017 12:38 PM Advance Directive(s) 02/17/2016 7:09 AM Latest Code Status on File Code Status Date Activated Date Inactivated Comments Full Code 06/08/2020 3:25 PM 06/11/2020 7:47 PM Full Code Order Discussed With: Patient Latest Code Status on File Code Status Date Activated Date Inactivated Comments Full Code 06/08/2020 3:25 PM 06/11/2020 7:47 PM Question Answer Comments Full Code Order Discussed With: Patient Latest Code Status on File Code Status Date Activated Date Inactivated Comments Full Code 06/08/2020 3:25 PM 06/11/2020 7:47 PM Question Answer Comments Full Code Order Discussed With: Patient Date Activated Date Inactivated Comments 06/08/2020 3:25 PM 06/11/2020 7:47 PM Question Answer Comments Full Code Order Discussed With: Patient Date Activated Date Inactivated Comments 06/08/2020 3:25 PM 06/11/2020 7:47 PM Question Answer Comments Full Code Order Discussed With: Patient Advance Directive Response Recorded Date/ Time Living Will No December 21, 2024 2:05pm Do you have a Healthcare Power of Surgical Product Sales Consultant? 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 Medications Administered Section Administered Medications Medication Order MAR Action Action Date Dose Rate Site tuberculin skin test, unspecified formulation Given 11/13/2019 0.1 Inactive Administered Medications - up to 3 most recent administrations Medication Order MAR Action Action Date Dose Rate Site lidocaine (PF) 10 mg/mL (1 %) 1 mL injection (XYLOCAINE) 1 mL, Injection - FOR ORTHO USE ONLY, ONE TIME INJECTION, 1 dose, Starting on Sun01/24/23 at 1558, Until Sun01/24/23 at 1558 Given 01/24/2023 3:58 PM EDT 1 mL Hand, Right triamcinolone acetonide 40 mg injection (KeNALog 40) 40 mg, Injection - FOR ORTHO USE ONLY, ONE TIME INJECTION, 1 dose, Starting on Sun01/24/23 at 1558, Until Sun01/24/23 at 1558 Given 01/24/2023 3:58 PM EDT 40 mg Hand, Right Reason for Referral Specialty Diagnoses / Procedures Referred By Contac t Referred To Contact Diagnoses Right hip pain Rhina Carrasco APRN.COMMUNICABLE DISEASE SPECIALIST [address] [place] [address] Referral ID Status Reason Start Date Expiration Date Visits Re quested Visits Authorized [id number] Closed 1 1 Specialty Diagnoses / Procedures Referred By Contac t Referred To Contact [facility] Diagnoses Hx of BKA, left (HCC) Right hip pain Procedures CONSULT TO MANAGER OFFICE OCCUPATIONAL THERAPY EVAL HIGH COMPLEX 60 MINS Rhina Carrasco APRN.COMMUNICABLE DISEASE SPECIALIST [address] [place] [address] [facility] [address] [address] Referral ID Status Reason Start Date Expiration Date Visits Requested Visits Authorized [id number] Pending Review Auto-Generat ed Referral 06/13/2023 06/12/2024 1 1 Specialty Diagnoses / Procedures Referred By Contac t Referred To Contact [facility] Diagnoses Hx of BKA, left (HCC) Right hip pain Procedures CONSULT TO PHYSICAL THERAPY PHYSICAL THERAPY EVALUATION HIGH COMPLEX 45 MINS Rhina Carrasco APRN.COMMUNICABLE DISEASE SPECIALIST [address] [place] [address] [facility] [address] [address] Referral ID Status Reason Start Date Expiration Date Visits Requested Visits Authorized [id number] Pending Review Auto-Generat ed Referral 06/13/2023 06/12/2024 1 1 Specialty Diagnoses / Procedures Referred By Contac t Referred To Contact [facility] Diagnoses Trigger finger, unspecified finger, unspecified laterality Procedures CONSULT TO MANAGER OFFICE OCCUPATIONAL THERAPY EVAL HIGH COMPLEX 60 MINS Earl Shepherd MD [address] [place] [address] [facility] [place] [address] [address] Referral ID Status Reason Start Date Expiration Date Visits Requested Visits Authorized [id number] Pending Review Auto-Generat ed Referral 02/03/2024 01/31/2025 1 1 Specialty Diagnoses / Procedures Referred By Rafal bang Referred To Contact Rhina Carrasco APRN.COMMUNICABLE DISEASE SPECIALIST [address] [place] [address] Referral ID Status Reason Start Date Expiration Date Visits Re quested Visits Authorized [id number] Closed 1 1 Specialty Diagnoses / Procedures Referred By Rafal bang Referred To Contact Nephrology Diagnoses Type 2 diabetes mellitus with stage 3b chronic kidney disease, with long-term current use of insulin (HCC) Procedures CONSULT TO NEPHROLOGY OFFICE/OUTPATIENT NEW HIGH MDM 60 MINUTES Rhina Carrasco APRN.COMMUNICABLE DISEASE SPECIALIST [address] [place] [address] Referral ID Status Reason Start Date Expiration Date Visits Requested Visits Authorized [id number] Authorized PCP Requested Referral 06/13/2024 06/13/2025 1 1 Specialty Diagnoses / Procedures Referred By Rafal bang Referred To Contact MR IMAGING Diagnoses Other acute osteomyelitis of right foot (HCC) Procedures MRI FOOT/TOES WO IVCON RIGHT MRI LOWER EXTREM OTH/THN JT W/O CONTR MATRL Leti Roger DPM [address] [address] Mr [id number] Referral ID Status Reason Start Date Expiration Date Visits Requested Visits Authorized [id number] Authorized Auto-Generat ed Referral 10/25/2025 1 1 Specialty Diagnoses / Procedures Referred By Rafal bang Referred To Contact Vascular Surgery Diagnoses PAD (peripheral artery disease) (HCC) Diabetic ulcer of toe of right foot associated with type 2 diabetes mellitus, limited to breakdown of skin (HCC) Type 2 diabetes mellitus with diabetic neuropathy, with long-term current use of insulin (HCC) Procedures CONSULT TO VASCULAR SURGERY OFFICE/OUTPATIENT NEW HIGH MDM 60 MINUTES Leti Roger DPM [address] [place] [address] Referral ID Status Reason Start Date Expiration Date Visits Requested Visits Authorized [id number] Authorized PCP Requested Referral 09/25/2025 1 1 Referral ID Status Reason Start Date Expiration Date V isits Requested Visits Authorized [id number] Closed Auto-Generate d Referral 09/25/2024 10/25/2025 1 1 Chief Complaint and Reason for Visit Chief Complaint Admit Date n/v December 21, 2024 2:0 2pm Additional Source Comments INFORMATION SOURCE (unrecogn ized section and content) DATE CREATED AUTHOR 03/25/2021 [facility] DATE CREATED AUTHOR AUTHOR'S ORGANIZ ATION 10/14/2024 [facility] DATE CREATED AUTHOR AUTHOR'S ORGANIZ ATION 11/22/2024 [facility] DATE CREATED AUTHOR AUTHOR'S ORGANIZ ATION 06/02/2025 [facility] DATE CREATED AUTHOR AUTHOR'S ORGANIZ ATION 06/10/2025 [facility] Source Comments (unrecognize d section and content) In the event this informatio n is protected by the Federal Confidentiality of Alcohol and Drug Abuse Patient Records regulations: The Federal rules restrict any use of the information to criminally investigate or prosecute any alcohol or drug abuse patient.[facility] the event this information is protected by the Federal Confidentiality of Alcohol and Drug Abuse Patient Records regulations: The Federal rules restrict any use of the information to criminally investigate or prosecute any alcohol or drug abuse patient.[facility] the event this information is protected by the Federal Confidentiality of Alcohol and Drug Abuse Patient Records regulations: The Federal rules restrict any use of the information to criminally investigate or prosecute any alcohol or drug abuse patient.[facility] HospitalIn the event this information is protected by the Federal Confidentiality of Alcohol and Drug Abuse Patient Records regulations: The Federal rules restrict any use of the information to criminally investigate or prosecute any alcohol or drug abuse patient.[facility] HospitalIn the event this information is protected by the Federal Confidentiality of Alcohol and Drug Abuse Patient Records regulations: The Federal rules restrict any use of the information to criminally investigate or prosecute any alcohol or drug abuse patient.[facility] HospitalIn the event this information is protected by the Federal Confidentiality of Alcohol and Drug Abuse Patient Records regulations: The Federal rules restrict any use of the information to criminally investigate or prosecute any alcohol or drug abuse patient.[facility] HospitalIn the event this information is protected by the Federal Confidentiality of Alcohol and Drug Abuse Patient Records regulations: The Federal rules restrict any use of the information to criminally investigate or prosecute any alcohol or drug abuse patient.[facility] HospitalIn the event this information is protected by the Federal Confidentiality of Alcohol and Drug Abuse Patient Records regulations: The Federal rules restrict any use of the information to criminally investigate or prosecute any alcohol or drug abuse patient.[facility] HospitalIn the event this information is protected by the Federal Confidentiality of Alcohol and Drug Abuse Patient Records regulations: The Federal rules restrict any use of the information to criminally investigate or prosecute any alcohol or drug abuse patient.[facility] HospitalIn the event this information is protected by the Federal Confidentiality of Alcohol and Drug Abuse Patient Records regulations: The Federal rules restrict any use of the information to criminally investigate or prosecute any alcohol or drug abuse patient.[facility] HospitalIn the event this information is protected by the Federal Confidentiality of Alcohol and Drug Abuse Patient Records regulations: The Federal rules restrict any use of the information to criminally investigate or prosecute any alcohol or drug abuse patient.[facility] HospitalIn the event this information is protected by the Federal Confidentiality of Alcohol and Drug Abuse Patient Records regulations: The Federal rules restrict any use of the information to criminally investigate or prosecute any alcohol or drug abuse patient.[facility] HospitalIn the event this information is protected by the Federal Confidentiality of Alcohol and Drug Abuse Patient Records regulations: The Federal rules restrict any use of the information to criminally investigate or prosecute any alcohol or drug abuse patient.[facility] HospitalIn the event this information is protected by the Federal Confidentiality of Alcohol and Drug Abuse Patient Records regulations: The Federal rules restrict any use of the information to criminally investigate or prosecute any alcohol or drug abuse patient.[facility] HospitalIn the event this information is protected by the Federal Confidentiality of Alcohol and Drug Abuse Patient Records regulations: The Federal rules restrict any use of the information to criminally investigate or prosecute any alcohol or drug abuse patient.[facility] HospitalIn the event this information is protected by the Federal Confidentiality of Alcohol and Drug Abuse Patient Records regulations: The Federal rules restrict any use of the information to criminally investigate or prosecute any alcohol or drug abuse patient.[facility] HospitalIn the event this information is protected by the Federal Confidentiality of Alcohol and Drug Abuse Patient Records regulations: The Federal rules restrict any use of the information to criminally investigate or prosecute any alcohol or drug abuse patient.[facility] HospitalIn the event this information is protected by the Federal Confidentiality of Alcohol and Drug Abuse Patient Records regulations: The Federal rules restrict any use of the information to criminally investigate or prosecute any alcohol or drug abuse patient.[facility] HospitalIn the event this information is protected by the Federal Confidentiality of Alcohol and Drug Abuse Patient Records regulations: The Federal rules restrict any use of the information to criminally investigate or prosecute any alcohol or drug abuse patient.[facility] HospitalIn the event this information is protected by the Federal Confidentiality of Alcohol and Drug Abuse Patient Records regulations: The Federal rules restrict any use of the information to criminally investigate or prosecute any alcohol or drug abuse patient.[facility] HospitalIn the event this information is protected by the Federal Confidentiality of Alcohol and Drug Abuse Patient Records regulations: The Federal rules restrict any use of the information to criminally investigate or prosecute any alcohol or drug abuse patient.[facility] HospitalIn the event this information is protected by the Federal Confidentiality of Alcohol and Drug Abuse Patient Records regulations: The Federal rules restrict any use of the information to criminally investigate or prosecute any alcohol or drug abuse patient.[facility] HospitalIn the event this information is protected by the Federal Confidentiality of Alcohol and Drug Abuse Patient Records regulations: The Federal rules restrict any use of the information to criminally investigate or prosecute any alcohol or drug abuse patient.[facility] HospitalIn the event this information is protected by the Federal Confidentiality of Alcohol and Drug Abuse Patient Records regulations: The Federal rules restrict any use of the information to criminally investigate or prosecute any alcohol or drug abuse patient.[facility] HospitalIn the event this information is protected by the Federal Confidentiality of Alcohol and Drug Abuse Patient Records regulations: The Federal rules restrict any use of the information to criminally investigate or prosecute any alcohol or drug abuse patient.[facility] HospitalIn the event this information is protected by the Federal Confidentiality of Alcohol and Drug Abuse Patient Records regulations: The Federal rules restrict any use of the information to criminally investigate or prosecute any alcohol or drug abuse patient.[facility] HospitalIn the event this information is protected by the Federal Confidentiality of Alcohol and Drug Abuse Patient Records regulations: The Federal rules restrict any use of the information to criminally investigate or prosecute any alcohol or drug abuse patient.[facility] HospitalIn the event this information is protected by the Federal Confidentiality of Alcohol and Drug Abuse Patient Records regulations: The Federal rules restrict any use of the information to criminally investigate or prosecute any alcohol or drug abuse patient.[facility] HospitalIn the event this information is protected by the Federal Confidentiality of Alcohol and Drug Abuse Patient Records regulations: The Federal rules restrict any use of the information to criminally investigate or prosecute any alcohol or drug abuse patient.[facility] HospitalIn the event this information is protected by the Federal Confidentiality of Alcohol and Drug Abuse Patient Records regulations: The Federal rules restrict any use of the information to criminally investigate or prosecute any alcohol or drug abuse patient.[facility] HospitalIn the event this information is protected by the Federal Confidentiality of Alcohol and Drug Abuse Patient Records regulations: The Federal rules restrict any use of the information to criminally investigate or prosecute any alcohol or drug abuse patient.[facility] HospitalIn the event this information is protected by the Federal Confidentiality of Alcohol and Drug Abuse Patient Records regulations: The Federal rules restrict any use of the information to criminally investigate or prosecute any alcohol or drug abuse patient.[facility] HospitalIn the event this information is protected by the Federal Confidentiality of Alcohol and Drug Abuse Patient Records regulations: The Federal rules restrict any use of the information to criminally investigate or prosecute any alcohol or drug abuse patient.[facility] HospitalIn the event this information is protected by the Federal Confidentiality of Alcohol and Drug Abuse Patient Records regulations: The Federal rules restrict any use of the information to criminally investigate or prosecute any alcohol or drug abuse patient.[facility]In the event this information is protected by the Federal Confidentiality of Alcohol and Drug Abuse Patient Records regulations: The Federal rules restrict any use of the information to criminally investigate or prosecute any alcohol or drug abuse patient.[facility] HospitalIn the event this information is protected by the Federal Confidentiality of Alcohol and Drug Abuse Patient Records regulations: The Federal rules restrict any use of the information to criminally investigate or prosecute any alcohol or drug abuse patient.[facility] HospitalIn the event this information is protected by the Federal Confidentiality of Alcohol and Drug Abuse Patient Records regulations: The Federal rules restrict any use of the information to criminally investigate or prosecute any alcohol or drug abuse patient.[facility] HospitalIn the event this information is protected by the Federal Confidentiality of Alcohol and Drug Abuse Patient Records regulations: The Federal rules restrict any use of the information to criminally investigate or prosecute any alcohol or drug abuse patient.[facility] HospitalIn the event this information is protected by the Federal Confidentiality of Alcohol and Drug Abuse Patient Records regulations: The Federal rules restrict any use of the information to criminally investigate or prosecute any alcohol or drug abuse patient.[facility] HospitalIn the event this information is protected by the Federal Confidentiality of Alcohol and Drug Abuse Patient Records regulations: The Federal rules restrict any use of the information to criminally investigate or prosecute any alcohol or drug abuse patient.[facility] HospitalIn the event this information is protected by the Federal Confidentiality of Alcohol and Drug Abuse Patient Records regulations: The Federal rules restrict any use of the information to criminally investigate or prosecute any alcohol or drug abuse patient.[facility] HospitalIn the event this information is protected by the Federal Confidentiality of Alcohol and Drug Abuse Patient Records regulations: The Federal rules restrict any use of the information to criminally investigate or prosecute any alcohol or drug abuse patient.[facility] HospitalIn the event this information is protected by the Federal Confidentiality of Alcohol and Drug Abuse Patient Records regulations: The Federal rules restrict any use of the information to criminally investigate or prosecute any alcohol or drug abuse patient.[facility] HospitalIn the event this information is protected by the Federal Confidentiality of Alcohol and Drug Abuse Patient Records regulations: The Federal rules restrict any use of the information to criminally investigate or prosecute any alcohol or drug abuse patient.[facility] HospitalIn the event this information is protected by the Federal Confidentiality of Alcohol and Drug Abuse Patient Records regulations: The Federal rules restrict any use of the information to criminally investigate or prosecute any alcohol or drug abuse patient.[facility] HospitalIn the event this information is protected by the Federal Confidentiality of Alcohol and Drug Abuse Patient Records regulations: The Federal rules restrict any use of the information to criminally investigate or prosecute any alcohol or drug abuse patient.[facility] HospitalIn the event this information is protected by the Federal Confidentiality of Alcohol and Drug Abuse Patient Records regulations: The Federal rules restrict any use of the information to criminally investigate or prosecute any alcohol or drug abuse patient.[facility] HospitalIn the event this information is protected by the Federal Confidentiality of Alcohol and Drug Abuse Patient Records regulations: The Federal rules restrict any use of the information to criminally investigate or prosecute any alcohol or drug abuse patient.[facility] HospitalIn the event this information is protected by the Federal Confidentiality of Alcohol and Drug Abuse Patient Records regulations: The Federal rules restrict any use of the information to criminally investigate or prosecute any alcohol or drug abuse patient.[facility] HospitalIn the event this information is protected by the Federal Confidentiality of Alcohol and Drug Abuse Patient Records regulations: The Federal rules restrict any use of the information to criminally investigate or prosecute any alcohol or drug abuse patient.[facility] HospitalIn the event this information is protected by the Federal Confidentiality of Alcohol and Drug Abuse Patient Records regulations: The Federal rules restrict any use of the information to criminally investigate or prosecute any alcohol or drug abuse patient.[facility] HospitalIn the event this information is protected by the Federal Confidentiality of Alcohol and Drug Abuse Patient Records regulations: The Federal rules restrict any use of the information to criminally investigate or prosecute any alcohol or drug abuse patient.[facility] HospitalIn the event this information is protected by the Federal Confidentiality of Alcohol and Drug Abuse Patient Records regulations: The Federal rules restrict any use of the information to criminally investigate or prosecute any alcohol or drug abuse patient.[facility] HospitalIn the event this information is protected by the Federal Confidentiality of Alcohol and Drug Abuse Patient Records regulations: The Federal rules restrict any use of the information to criminally investigate or prosecute any alcohol or drug abuse patient.[facility] HospitalIn the event this information is protected by the Federal Confidentiality of Alcohol and Drug Abuse Patient Records regulations: The Federal rules restrict any use of the information to criminally investigate or prosecute any alcohol or drug abuse patient.[facility] HospitalIn the event this information is protected by the Federal Confidentiality of Alcohol and Drug Abuse Patient Records regulations: The Federal rules restrict any use of the information to criminally investigate or prosecute any alcohol or drug abuse patient.[facility] HospitalIn the event this information is protected by the Federal Confidentiality of Alcohol and Drug Abuse Patient Records regulations: The Federal rules restrict any use of the information to criminally investigate or prosecute any alcohol or drug abuse patient.[facility] HospitalIn the event this information is protected by the Federal Confidentiality of Alcohol and Drug Abuse Patient Records regulations: The Federal rules restrict any use of the information to criminally investigate or prosecute any alcohol or drug abuse patient.[facility] HospitalIn the event this information is protected by the Federal Confidentiality of Alcohol and Drug Abuse Patient Records regulations: The Federal rules restrict any use of the information to criminally investigate or prosecute any alcohol or drug abuse patient.[facility] HospitalIn the event this information is protected by the Federal Confidentiality of Alcohol and Drug Abuse Patient Records regulations: The Federal rules restrict any use of the information to criminally investigate or prosecute any alcohol or drug abuse patient.[facility] HospitalIn the event this information is protected by the Federal Confidentiality of Alcohol and Drug Abuse Patient Records regulations: The Federal rules restrict any use of the information to criminally investigate or prosecute any alcohol or drug abuse patient.[facility] HospitalIn the event this information is protected by the Federal Confidentiality of Alcohol and Drug Abuse Patient Records regulations: The Federal rules restrict any use of the information to criminally investigate or prosecute any alcohol or drug abuse patient.[facility] HospitalIn the event this information is protected by the Federal Confidentiality of Alcohol and Drug Abuse Patient Records regulations: The Federal rules restrict any use of the information to criminally investigate or prosecute any alcohol or drug abuse patient.[facility] HospitalIn the event this information is protected by the Federal Confidentiality of Alcohol and Drug Abuse Patient Records regulations: The Federal rules restrict any use of the information to criminally investigate or prosecute any alcohol or drug abuse patient.[facility] HospitalIn the event this information is protected by the Federal Confidentiality of Alcohol and Drug Abuse Patient Records regulations: The Federal rules restrict any use of the information to criminally investigate or prosecute any alcohol or drug abuse patient.[facility] HospitalIn the event this information is protected by the Federal Confidentiality of Alcohol and Drug Abuse Patient Records regulations: The Federal rules restrict any use of the information to criminally investigate or prosecute any alcohol or drug abuse patient.[facility] HospitalIn the event this information is protected by the Federal Confidentiality of Alcohol and Drug Abuse Patient Records regulations: The Federal rules restrict any use of the information to criminally investigate or prosecute any alcohol or drug abuse patient.[facility] HospitalIn the event this information is protected by the Federal Confidentiality of Alcohol and Drug Abuse Patient Records regulations: The Federal rules restrict any use of the information to criminally investigate or prosecute any alcohol or drug abuse patient.[facility] HospitalIn the event this information is protected by the Federal Confidentiality of Alcohol and Drug Abuse Patient Records regulations: The Federal rules restrict any use of the information to criminally investigate or prosecute any alcohol or drug abuse patient.[facility] HospitalIn the event this information is protected by the Federal Confidentiality of Alcohol and Drug Abuse Patient Records regulations: The Federal rules restrict any use of the information to criminally investigate or prosecute any alcohol or drug abuse patient.[facility] HospitalIn the event this information is protected by the Federal Confidentiality of Alcohol and Drug Abuse Patient Records regulations: The Federal rules restrict any use of the information to criminally investigate or prosecute any alcohol or drug abuse patient.[facility] HospitalIn the event this information is protected by the Federal Confidentiality of Alcohol and Drug Abuse Patient Records regulations: The Federal rules restrict any use of the information to criminally investigate or prosecute any alcohol or drug abuse patient.[facility] HospitalIn the event this information is protected by the Federal Confidentiality of Alcohol and Drug Abuse Patient Records regulations: The Federal rules restrict any use of the information to criminally investigate or prosecute any alcohol or drug abuse patient.[facility] HospitalIn the event this information is protected by the Federal Confidentiality of Alcohol and Drug Abuse Patient Records regulations: The Federal rules restrict any use of the information to criminally investigate or prosecute any alcohol or drug abuse patient.[facility] HospitalIn the event this information is protected by the Federal Confidentiality of Alcohol and Drug Abuse Patient Records regulations: The Federal rules restrict any use of the information to criminally investigate or prosecute any alcohol or drug abuse patient.[facility] HospitalIn the event this information is protected by the Federal Confidentiality of Alcohol and Drug Abuse Patient Records regulations: The Federal rules restrict any use of the information to criminally investigate or prosecute any alcohol or drug abuse patient.[facility] HospitalIn the event this information is protected by the Federal Confidentiality of Alcohol and Drug Abuse Patient Records regulations: The Federal rules restrict any use of the information to criminally investigate or prosecute any alcohol or drug abuse patient.[facility] HospitalIn the event this information is protected by the Federal Confidentiality of Alcohol and Drug Abuse Patient Records regulations: The Federal rules restrict any use of the information to criminally investigate or prosecute any alcohol or drug abuse patient.[facility] HospitalIn the event this information is protected by the Federal Confidentiality of Alcohol and Drug Abuse Patient Records regulations: The Federal rules restrict any use of the information to criminally investigate or prosecute any alcohol or drug abuse patient.[facility] HospitalIn the event this information is protected by the Federal Confidentiality of Alcohol and Drug Abuse Patient Records regulations: The Federal rules restrict any use of the information to criminally investigate or prosecute any alcohol or drug abuse patient.[facility] HospitalIn the event this information is protected by the Federal Confidentiality of Alcohol and Drug Abuse Patient Records regulations: The Federal rules restrict any use of the information to criminally investigate or prosecute any alcohol or drug abuse patient.[facility] HospitalIn the event this information is protected by the Federal Confidentiality of Alcohol and Drug Abuse Patient Records regulations: The Federal rules restrict any use of the information to criminally investigate or prosecute any alcohol or drug abuse patient.[facility] HospitalIn the event this information is protected by the Federal Confidentiality of Alcohol and Drug Abuse Patient Records regulations: The Federal rules restrict any use of the information to criminally investigate or prosecute any alcohol or drug abuse patient.[facility] HospitalIn the event this information is protected by the Federal Confidentiality of Alcohol and Drug Abuse Patient Records regulations: The Federal rules restrict any use of the information to criminally investigate or prosecute any alcohol or drug abuse patient.[facility] HospitalIn the event this information is protected by the Federal Confidentiality of Alcohol and Drug Abuse Patient Records regulations: The Federal rules restrict any use of the information to criminally investigate or prosecute any alcohol or drug abuse patient.[facility] HospitalIn the event this information is protected by the Federal Confidentiality of Alcohol and Drug Abuse Patient Records regulations: The Federal rules restrict any use of the information to criminally investigate or prosecute any alcohol or drug abuse patient.[facility] HospitalIn the event this information is protected by the Federal Confidentiality of Alcohol and Drug Abuse Patient Records regulations: The Federal rules restrict any use of the information to criminally investigate or prosecute any alcohol or drug abuse patient.[facility] HospitalIn the event this information is protected by the Federal Confidentiality of Alcohol and Drug Abuse Patient Records regulations: The Federal rules restrict any use of the information to criminally investigate or prosecute any alcohol or drug abuse patient.[facility] HospitalIn the event this information is protected by the Federal Confidentiality of Alcohol and Drug Abuse Patient Records regulations: The Federal rules restrict any use of the information to criminally investigate or prosecute any alcohol or drug abuse patient.[facility] HospitalIn the event this information is protected by the Federal Confidentiality of Alcohol and Drug Abuse Patient Records regulations: The Federal rules restrict any use of the information to criminally investigate or prosecute any alcohol or drug abuse patient.[facility] HospitalIn the event this information is protected by the Federal Confidentiality of Alcohol and Drug Abuse Patient Records regulations: The Federal rules restrict any use of the information to criminally investigate or prosecute any alcohol or drug abuse patient.[facility] HospitalIn the event this information is protected by the Federal Confidentiality of Alcohol and Drug Abuse Patient Records regulations: The Federal rules restrict any use of the information to criminally investigate or prosecute any alcohol or drug abuse patient.[facility] HospitalIn the event this information is protected by the Federal Confidentiality of Alcohol and Drug Abuse Patient Records regulations: The Federal rules restrict any use of the information to criminally investigate or prosecute any alcohol or drug abuse patient.[facility] HospitalIn the event this information is protected by the Federal Confidentiality of Alcohol and Drug Abuse Patient Records regulations: The Federal rules restrict any use of the information to criminally investigate or prosecute any alcohol or drug abuse patient.[facility] HospitalIn the event this information is protected by the Federal Confidentiality of Alcohol and Drug Abuse Patient Records regulations: The Federal rules restrict any use of the information to criminally investigate or prosecute any alcohol or drug abuse patient.[facility] HospitalIn the event this information is protected by the Federal Confidentiality of Alcohol and Drug Abuse Patient Records regulations: The Federal rules restrict any use of the information to criminally investigate or prosecute any alcohol or drug abuse patient.[facility] HospitalIn the event this information is protected by the Federal Confidentiality of Alcohol and Drug Abuse Patient Records regulations: The Federal rules restrict any use of the information to criminally investigate or prosecute any alcohol or drug abuse patient.[facility] HospitalIn the event this information is protected by the Federal Confidentiality of Alcohol and Drug Abuse Patient Records regulations: The Federal rules restrict any use of the information to criminally investigate or prosecute any alcohol or drug abuse patient.[facility] HospitalIn the event this information is protected by the Federal Confidentiality of Alcohol and Drug Abuse Patient Records regulations: The Federal rules restrict any use of the information to criminally investigate or prosecute any alcohol or drug abuse patient.[facility] HospitalIn the event this information is protected by the Federal Confidentiality of Alcohol and Drug Abuse Patient Records regulations: The Federal rules restrict any use of the information to criminally investigate or prosecute any alcohol or drug abuse patient.[facility] HospitalIn the event this information is protected by the Federal Confidentiality of Alcohol and Drug Abuse Patient Records regulations: The Federal rules restrict any use of the information to criminally investigate or prosecute any alcohol or drug abuse patient.[facility] HospitalIn the event this information is protected by the Federal Confidentiality of Alcohol and Drug Abuse Patient Records regulations: The Federal rules restrict any use of the information to criminally investigate or prosecute any alcohol or drug abuse patient.[facility] HospitalIn the event this information is protected by the Federal Confidentiality of Alcohol and Drug Abuse Patient Records regulations: The Federal rules restrict any use of the information to criminally investigate or prosecute any alcohol or drug abuse patient.[facility] HospitalIn the event this information is protected by the Federal Confidentiality of Alcohol and Drug Abuse Patient Records regulations: The Federal rules restrict any use of the information to criminally investigate or prosecute any alcohol or drug abuse patient.[facility] HospitalIn the event this information is protected by the Federal Confidentiality of Alcohol and Drug Abuse Patient Records regulations: The Federal rules restrict any use of the information to criminally investigate or prosecute any alcohol or drug abuse patient.[facility]In the event this information is protected by the Federal Confidentiality of Alcohol and Drug Abuse Patient Records regulations: The Federal rules restrict any use of the information to criminally investigate or prosecute any alcohol or drug abuse patient.[facility] HospitalIn the event this information is protected by the Federal Confidentiality of Alcohol and Drug Abuse Patient Records regulations: The Federal rules restrict any use of the information to criminally investigate or prosecute any alcohol or drug abuse patient.[facility] HospitalIn the event this information is protected by the Federal Confidentiality of Alcohol and Drug Abuse Patient Records regulations: The Federal rules restrict any use of the information to criminally investigate or prosecute any alcohol or drug abuse patient.[facility] HospitalIn the event this information is protected by the Federal Confidentiality of Alcohol and Drug Abuse Patient Records regulations: The Federal rules restrict any use of the information to criminally investigate or prosecute any alcohol or drug abuse patient.[facility] HospitalIn the event this information is protected by the Federal Confidentiality of Alcohol and Drug Abuse Patient Records regulations: The Federal rules restrict any use of the information to criminally investigate or prosecute any alcohol or drug abuse patient.[facility]In the event this information is protected by the Federal Confidentiality of Alcohol and Drug Abuse Patient Records regulations: The Federal rules restrict any use of the information to criminally investigate or prosecute any alcohol or drug abuse patient.[facility] HospitalIn the event this information is protected by the Federal Confidentiality of Alcohol and Drug Abuse Patient Records regulations: The Federal rules restrict any use of the information to criminally investigate or prosecute any alcohol or drug abuse patient.[facility] HospitalIn the event this information is protected by the Federal Confidentiality of Alcohol and Drug Abuse Patient Records regulations: The Federal rules restrict any use of the information to criminally investigate or prosecute any alcohol or drug abuse patient.[facility] HospitalIn the event this information is protected by the Federal Confidentiality of Alcohol and Drug Abuse Patient Records regulations: The Federal rules restrict any use of the information to criminally investigate or prosecute any alcohol or drug abuse patient.[facility] HospitalIn the event this information is protected by the Federal Confidentiality of Alcohol and Drug Abuse Patient Records regulations: The Federal rules restrict any use of the information to criminally investigate or prosecute any alcohol or drug abuse patient.[facility] HospitalIn the event this information is protected by the Federal Confidentiality of Alcohol and Drug Abuse Patient Records regulations: The Federal rules restrict any use of the information to criminally investigate or prosecute any alcohol or drug abuse patient.[facility] HospitalIn the event this information is protected by the Federal Confidentiality of Alcohol and Drug Abuse Patient Records regulations: The Federal rules restrict any use of the information to criminally investigate or prosecute any alcohol or drug abuse patient.[facility] [facility] HospitalIn the event this information is protected by the Federal Confidentiality of Alcohol and Drug Abuse Patient Records regulations: The Federal rules restrict any use of the information to criminally investigate or prosecute any alcohol or drug abuse patient.[facility] HospitalIn the event this information is protected by the Federal Confidentiality of Alcohol and Drug Abuse Patient Records regulations: The Federal rules restrict any use of the information to criminally investigate or prosecute any alcohol or drug abuse patient.[facility] HospitalIn the event this information is protected by the Federal Confidentiality of Alcohol and Drug Abuse Patient Records regulations: The Federal rules restrict any use of the information to criminally investigate or prosecute any alcohol or drug abuse patient.[facility] HospitalIn the event this information is protected by the Federal Confidentiality of Alcohol and Drug Abuse Patient Records regulations: The Federal rules restrict any use of the information to criminally investigate or prosecute any alcohol or drug abuse patient.[facility] HospitalIn the event this information is protected by the Federal Confidentiality of Alcohol and Drug Abuse Patient Records regulations: The Federal rules restrict any use of the information to criminally investigate or prosecute any alcohol or drug abuse patient.[facility] HospitalIn the event this information is protected by the Federal Confidentiality of Alcohol and Drug Abuse Patient Records regulations: The Federal rules restrict any use of the information to criminally investigate or prosecute any alcohol or drug abuse patient.[facility] HospitalIn the event this information is protected by the Federal Confidentiality of Alcohol and Drug Abuse Patient Records regulations: The Federal rules restrict any use of the information to criminally investigate or prosecute any alcohol or drug abuse patient.[facility] HospitalIn the event this information is protected by the Federal Confidentiality of Alcohol and Drug Abuse Patient Records regulations: The Federal rules restrict any use of the information to criminally investigate or prosecute any alcohol or drug abuse patient.[facility] HospitalIn the event this information is protected by the Federal Confidentiality of Alcohol and Drug Abuse Patient Records regulations: The Federal rules restrict any use of the information to criminally investigate or prosecute any alcohol or drug abuse patient.[facility] HospitalIn the event this information is protected by the Federal Confidentiality of Alcohol and Drug Abuse Patient Records regulations: The Federal rules restrict any use of the information to criminally investigate or prosecute any alcohol or drug abuse patient.[facility] HospitalIn the event this information is protected by the Federal Confidentiality of Alcohol and Drug Abuse Patient Records regulations: The Federal rules restrict any use of the information to criminally investigate or prosecute any alcohol or drug abuse patient.[facility] HospitalIn the event this information is protected by the Federal Confidentiality of Alcohol and Drug Abuse Patient Records regulations: The Federal rules restrict any use of the information to criminally investigate or prosecute any alcohol or drug abuse patient.[facility] HospitalIn the event this information is protected by the Federal Confidentiality of Alcohol and Drug Abuse Patient Records regulations: The Federal rules restrict any use of the information to criminally investigate or prosecute any alcohol or drug abuse patient.[facility] HospitalIn the event this information is protected by the Federal Confidentiality of Alcohol and Drug Abuse Patient Records regulations: The Federal rules restrict any use of the information to criminally investigate or prosecute any alcohol or drug abuse patient.[facility] HospitalIn the event this information is protected by the Federal Confidentiality of Alcohol and Drug Abuse Patient Records regulations: The Federal rules restrict any use of the information to criminally investigate or prosecute any alcohol or drug abuse patient.[facility] HospitalIn the event this information is protected by the Federal Confidentiality of Alcohol and Drug Abuse Patient Records regulations: The Federal rules restrict any use of the information to criminally investigate or prosecute any alcohol or drug abuse patient.[facility] HospitalIn the event this information is protected by the Federal Confidentiality of Alcohol and Drug Abuse Patient Records regulations: The Federal rules restrict any use of the information to criminally investigate or prosecute any alcohol or drug abuse patient.[facility] HospitalIn the event this information is protected by the Federal Confidentiality of Alcohol and Drug Abuse Patient Records regulations: The Federal rules restrict any use of the information to criminally investigate or prosecute any alcohol or drug abuse patient.[facility] HospitalIn the event this information is protected by the Federal Confidentiality of Alcohol and Drug Abuse Patient Records regulations: The Federal rules restrict any use of the information to criminally investigate or prosecute any alcohol or drug abuse patient.[facility] HospitalIn the event this information is protected by the Federal Confidentiality of Alcohol and Drug Abuse Patient Records regulations: The Federal rules restrict any use of the information to criminally investigate or prosecute any alcohol or drug abuse patient.[facility] HospitalIn the event this information is protected by the Federal Confidentiality of Alcohol and Drug Abuse Patient Records regulations: The Federal rules restrict any use of the information to criminally investigate or prosecute any alcohol or drug abuse patient.[facility] HospitalIn the event this information is protected by the Federal Confidentiality of Alcohol and Drug Abuse Patient Records regulations: The Federal rules restrict any use of the information to criminally investigate or prosecute any alcohol or drug abuse patient.[facility] Reason for Visit (unrecogniz ed section and content) Reason Onset Date Comments Refill Request 12/30/2021 Reason Onset Date Comments Refill Request 01/24/2022 Reason Onset Date Comments Community Monitoring Outreach 01/30/2022 [facility] D [facility]M Outreach Reason Onset Date Comments Community Monitoring Outreach 02/24/2022 [facility] D Telephonic CDM Outreach Reason Onset Date Comments Refill Request 03/02/2022 Reason Onset Date Comments Community Monitoring Outreach 03/20/2022 [facility] D [facility]M Outreach Reason Comments Prescription Question Reason Onset Date Comments Refill Request 03/30/2022 Reason Onset Date Comments Refill Request 04/11/2022 Reason Onset Date Comments Community Monitoring Outreach 04/12/2022 [facility] D Telephonic CDM Outreach Reason Onset Date Comments Community Monitoring Outreach 04/28/2022 CK D Telephonic CDM Outreach Reason Onset Date Comments Community Monitoring Outreach 05/15/2022 Reason Onset Date Comments Refill Request 05/19/2022 Reason Comments Patient Question Reason Onset Date Comments Community [facility] Outreach 06/02/2022 Reason Onset Date Comments Community Monitoring Outreach 07/03/2022 Reason Onset Date Comments Community Monitoring Outreach 07/04/2022 Reason Onset Date Comments Community Monitoring Outreach 07/20/2022 Reason Onset Date Comments Medication Problem 08/07/2022 Reason Onset Date Comments Community [facility] outreach 08/07/2022 CD telephonic outreach Reason Comments Refill Request Reason Onset Date Comments Population Health Navigation Outreach 07/24/2022 [place] Care Gaps Reason Comments Patient Assistance Reason Onset Date Comments [facility] outreach 09/11/2022 CDM telephonic o utreach Reason Comments Escalation of Care Reason Comments Initial Consult Urgent Dispatch Reason Onset Date Comments [facility] outreach 10/19/2022 CDM escalation f /u Reason Onset Date Comments Refill Request 11/07/2022 Reason Onset Date Comments [facility] outreach 11/11/2022 CDM telephonic o utreach Reason Comments Lab Orders Reason Onset Date Comments [facility] 12/26/2022 Telephonic Outre ach Reason Onset Date Comments [facility] 12/27/2022 Telephonic Outre ach Reason Comments results Reason Comments Patient Update Reason Comments F/U 6 months Reason Comments Established Patient Reason Onset Date Comments [facility] 01/25/2023 Telephonic Outre ach Reason Onset Date Comments [facility] 03/21/2023 Check in call Reason Onset Date Comments Refill Request 04/01/2023 Reason Onset Date Comments [facility] 04/19/2023 Check in call Reason Onset Date Comments Refill Request 05/10/2023 Reason Onset Date Comments [facility] 05/17/2023 Check in call Reason Comments Results Reason Comments F/U 6 months Right Hip Pain Conjunctivitis dx and treated with antibiotic drops and then ointment but due to vision interference did not like the ointment Reason Onset Date Comments [facility] 07/18/2023 Check in call Reason Onset Date Comments Refill Request 08/02/2023 Reason Onset Date Comments [facility] 09/14/2023 Telephonic Outre ach Reason Onset Date Comments Refill Request 11/05/2023 Reason Onset Date Comments Community [facility] Outreach 11/16/2023 Fo llow up Reason Onset Date Comments Community [facility] Outreach 11/19/2023 Fo llow up Reason Onset Date Comments [facility] 12/03/2023 Community [facility] Outreach Call Reason Comments Patient Request Reason Onset Date Comments Community Monitoring Outreach 12/31/2023 Fo llow up Reason Onset Date Comments Community Monitoring Outreach 01/01/2024 Fo llow up Reason Comments Orders Reason Comments Yearly Exam Reason Onset Date Comments [facility] 02/01/2024 Chronic Disease Management routine call Reason Onset Date Comments [facility] 03/03/2024 Chronic Disease Management routine call Reason Onset Date Comments Population Health Navigation Outreach 03/12/2024 Care Gaps Reason Comments Appointment Reason Comments Established Patient Personal matter Reason Comments Primary Care Phaarmacy Reason Onset Date Comments Refill Request 03/19/2024 Reason Onset Date Comments [facility] 04/01/2024 Chronic Disease Management routine call Reason Comments Diabetes Reason Comments Mounjaro Reason Comments Eye Problem Left eye redness and blood shot. X2 weeks Reason Onset Date Comments [facility] 04/29/2024 Chronic Disease Management routine call Reason Comments Ambulatory Social Work Financial Resourc es Reason Onset Date Comments Refill Request 05/02/2024 Reason Comments Ambulatory Social Work Community Resourc es Reason Onset Date Comments [facility] 05/29/2024 Chronic Disease Management routine call Reason Comments F/U 6 Month Reason Onset Date Comments Refill Request 06/19/2024 Reason Onset Date Comments [facility] 06/26/2024 Chronic Disease Management routine call Reason Onset Date Comments [facility] 07/25/2024 Chronic Disease Management routine call Reason Comments Appointment Primary care resched ule Reason Onset Date Comments [facility] 08/11/2024 Chronic Disease Management routine call Reason Comments Diabetes Med Management Reason Onset Date Comments [facility] 09/08/2024 Chronic Disease Management routine call Reason Onset Date Comments Patient Assistance Program 08/20/2024 Basag lar Kwikpen u100 Humalog Kwikpen U100 Trulicity 4.5mg/0.5mL (SHILOH RENEWAL) Reason Comments Established Patient Reason Comments Radiology US Specialty Diagnoses / Procedures Referred By Rafal t Referred To Contact US IMAGING Diagnoses Type 2 diabetes mellitus with diabetic neuropathy, with long-term current use of insulin (HCC) PAD (peripheral artery disease) (HCC) Diabetic ulcer of toe of right foot associated with type 2 diabetes mellitus, 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 Procedures US ARTERIAL PVR LOWER NON-INVASIVE PHYSIOLOGIC STUDY EXTREMITY 3 Leti Birmingham, DPM [address] [place] [address] [place] [address] Referral ID Status Reason Start Date Expiration Date V isits Requested Visits Authorized [id number] Closed Auto-Generate d Referral 09/17/2024 10/17/2025 1 1 Reason Comments Results Reason Comments Peripheral Vascular Disease (PVD) Consult Reason Comments Established Patient Follow Up Pain PVR Specialty Diagnoses / Procedures Referred By Contac t Referred To Contact MR IMAGING Diagnoses Other acute osteomyelitis of right foot (HCC) Procedures MRI FOOT/TOES WO IVCON RIGHT MRI LOWER EXTREM OTH/THN JT W/O CONTR MATRL Leti Roger, INGE [address] [place] [address] [place] [address] Referral ID Status Reason Start Date Expiration Date V isits Requested Visits Authorized [id number] Closed Auto-Generate d Referral 09/25/2024 10/25/2025 1 1 Reason Comments Consult surgery 10/20/24 at [facility] Reason Comments Handicap Placard Request Reason Comments Request Outside Medical Records Reason Comments handicap placard Reason Comments Cough Head and chest conge stion x1 week Reason Comments Follow Up seen in UC - L lobe pneumonia Reason Comments Follow Up Reason Onset Date Comments Refill Request 11/05/2024 Reason Comments Established Patient Reason Onset Date Comments Refill Request 11/19/2024 Reason Comments Cough Nausea & Vomiting Diarrhea Reason Comments Urinary Symptoms Reason Onset Date Comments Refill Request 01/14/2025 Reason Onset Date Comments Refill Request 02/11/2025 Reason Comments Home Care Reason Comments Home Care Declined Reason Comments Home Health Orders Reason Onset Date Comments Refill Request 03/30/2025 Reason Comments Medication Question Reason Onset Date Comments Refill Request 04/15/2025 Reason Onset Date Comments Refill Request 05/14/2025 NEW PHARMACY Reason Comments F/U 3 Month Care Teams (unrecognized sec tion and content) Ground Service Equipment Mechanic Relationship Specialty Start Date End Date Earl Shepherd MD [address] [place] [address] PCP - General Internal Medicine 11/22/17 Joe Faria [facility] [address] [place] [address] Pharmacist Pharmacy 09/05/19 Frederic Trejo [address] [place] [address] Podiatry 09/22/19 Leti Roger, INGE [address] [place] [address] Physician Orthopedics 12/17/19 Leti Roger DPM [address] [place] [address] Home Care Physician Orthopedics 05/18/20 Leti Roger DPM [address] [place] [address] Referring Orthopedics 05/18/20 Armond Chapa [address] [phone] Cardiology 08/31/20 Ibrahima Ng, pin drafting machine operatorGlue Sprayer Internal Medicine 11/19/20 Ground Service Equipment Mechanic Relationship Specialty Start Date End Date Earl Shepherd MD [address] [place] [address] PCP - General Internal Medicine 11/22/17 Joe Faria, [facility] [address] [place] [address] Pharmacist Pharmacy 09/05/19 Frederic Trejo [address] [place] [address] Podiatry 09/22/19 Leti Roger DPM [address] [place] [address] Physician Orthopedics 12/17/19 Leti Roger DPM [address] [place] [address] Home Care Physician Orthopedics 05/18/20 Leti Roger DPM [address] [place] [address] Referring Orthopedics 05/18/20 [facility] [address] [address] Cardiology 08/31/20 Ibrahima Ng, pin drafting machine operatorGlue Sprayer Internal Medicine 11/19/20 Ground Service Equipment Mechanic Relationship Specialty Start Date End Date Earl Shepherd MD [address] [place] [address] PCP - General Internal Medicine 11/22/17 Joe Faria [facility] [address] [place] [address] Pharmacist Pharmacy 09/05/19 Frederic Trejo [address] [place] [address] Podiatry 09/22/19 Leti Roger DPM [address] [facility] [address] [place] [address] Physician Orthopedics 12/17/19 Leti Roger DPM [address] [place] [address] Home Care Physician Orthopedics 05/18/20 Leti Roger DPM [address] [place] [address] Referring Orthopedics 05/18/20 [facility]ERY[facility] [address] [phone] Cardiology 08/31/20 Ibrahima Ng, pin drafting machine operatorGlue Sprayer Internal Medicine 11/19/20 Ground Service Equipment Mechanic Relationship Specialty Start Date End Date Earl Shepherd MD [address] [place] [address] PCP - General Internal Medicine 11/22/17 [facility] [address] [place] [address] Pharmacist Pharmacy 09/05/19 Frederic [place] [place] [address] Podiatry 09/22/19 Leti oRger DPM [address] [address] Physician Orthopedics 12/17/19 Leti Roger DPM [address] [place] [address] Home Care Physician Orthopedics 05/18/20 Leti Roger, INGE [address] [place] [address] Referring Orthopedics 05/18/20 Armond Chapa [address] [phone] Cardiology 08/31/20 Ibrahima Ng RN Glue Sprayer Internal Medicine 11/19/20 Ground Service Equipment Mechanic Relationship Specialty Start Date End Date Earl Shepherd MD [address] [place] [address] PCP - General Internal Medicine 11/22/17 Joe Faria, [facility] [address] [place] [address] Pharmacist Pharmacy 09/05/19 Frederic Trejo [address] [place] [address] Podiatry 09/22/19 Leti Roger DPM [address] [place] [address], [place] [address] Physician Orthopedics 12/17/19 Leti Roger DPM [address] [place] [address] Home Care Physician Orthopedics 05/18/20 Leti Roger DPM [address] [place] [address] Referring Orthopedics 05/18/20 Armond Chapa [address] [address] Cardiology 08/31/20 Ibrahima Ng, pin drafting machine operatorGlue Sprayer Internal Medicine 11/19/20 Ground Service Equipment Mechanic Relationship Specialty Start Date End Date Earl Shepherd MD [address] [place] [address] PCP - General Internal Medicine 11/22/17 Joe Faria [facility] [address] [place] [address] Pharmacist Pharmacy 09/05/19 Frederic Trejo [address] [place] [address] Podiatry 09/22/19 Leti Roger DPM [address] [place] [address] Physician Orthopedics 12/17/19 Leti Roger DPM [address] [place] [address] Home Care Physician Orthopedics 05/18/20 Leti Roger DPM [address] [place] [address] Referring Orthopedics 05/18/20 Armond Chapa [address] [address] Cardiology 08/31/20 Ibrahima Ng, pin drafting machine operatorGlue Sprayer Internal Medicine 11/19/20 Ground Service Equipment Mechanic Relationship Specialty Start Date End Date Earl Shepherd MD [address] [place] [address] PCP - General Internal Medicine 11/22/17 Joe Faria [facility] [address] [place] [address] Pharmacist Pharmacy 09/05/19 Frederic Trejo [address] [place] [address] Podiatry 09/22/19 Leti Roger DPM [address] [facility] [address] [place] [address] Physician Orthopedics 12/17/19 Leti Roger DPM [address] [place] [address] Home Care Physician Orthopedics 05/18/20 Leti Roger DPM [address] [place] [address] Referring Orthopedics 05/18/20 Armond Chapa [address] [phone] Cardiology 08/31/20 Ibrahima Ng, pin drafting machine operatorGlue Sprayer Internal Medicine 11/19/20 Ground Service Equipment Mechanic Relationship Specialty Start Date End Date Earl Shepherd MD [address] [place] [address] PCP - General Internal Medicine 11/22/17 Joe Faria, [facility] [address] [facility] [place] [address] Pharmacist Pharmacy 09/05/19 Frederic Trejo [address] [place] [address] Podiatry 09/22/19 Leti Roger DPM [address] [address] Physician Orthopedics 12/17/19 Leti Roger DPM [address] [place] [address] Home Care Physician Orthopedics 05/18/20 Leti Roger DPM [address] [place] [address] Referring Orthopedics 05/18/20 Armond Chapa [address] [address] Cardiology 08/31/20 Ibrahima Ng, pin drafting machine operatorGlue Sprayer Internal Medicine 11/19/20 Ground Service Equipment Mechanic Relationship Specialty Start Date End Date Earl Shepherd MD [address] [place] [address] PCP - General Internal Medicine 11/22/17 Joe Faria, [facility] [address] [place] [address] Pharmacist Pharmacy 09/05/19 Frederic Trejo [address] [place] [address] Podiatry 09/22/19 Leti Roger DPM [address] [place] [address], [place] [address] Physician Orthopedics 12/17/19 Leti Roger DPM [address] [place] [address] Home Care Physician Orthopedics 05/18/20 Leti Roger DPM [address] [place] [address] Referring Orthopedics 05/18/20 Armond Chapa [address] [address] Cardiology 08/31/20 Ibrahima Ng, pin drafting machine operatorGlue Sprayer Internal Medicine 11/19/20 Ground Service Equipment Mechanic Relationship Specialty Start Date End Date Earl Shepherd MD [address] [place] [address] PCP - General Internal Medicine 11/22/17 Joe Faria [facility] [address] [place] [address] Pharmacist Pharmacy 09/05/19 Frederic Trejo [address] [place] [address] Podiatry 09/22/19 Leti Roger DPM [address] [place] [address], [place] [address] Physician Orthopedics 12/17/19 Leti Roger DPM [address] [place] [address] Home Care Provider Orthopedics 05/18/20 Leti Roger DPM [address] [place] [address] Referring Orthopedics 05/18/20 Armond Chapa [address] [address] Cardiology 08/31/20 Ibrahima Ng, pin drafting machine operatorGlue Sprayer Internal Medicine 11/19/20 Ground Service Equipment Mechanic Relationship Specialty Start Date End Date Earl Shepherd MD [address] [place] [address] PCP - General Internal Medicine 11/22/17 Joe Faria [facility] [address] [place] [address] Pharmacist Pharmacy 09/05/19 Frederic Trejo [address] [place] [address] Podiatry 09/22/19 Leti Roger DPM [address] [facility] [address] [place] [address] Physician Orthopedics 12/17/19 Leti Roger DPM [address] [place] [address] Home Care Provider Orthopedics 05/18/20 Leti Roger DPM [address] [place] [address] Referring Orthopedics 05/18/20 Armond Chapa [address] [address] Cardiology 08/31/20 Alexandre Thomas, CARMELO [address] [place] [address] Glue Sprayer Internal Medicine 11/19/20 Ground Service Equipment Mechanic Relationship Specialty Start Date End Date Earl Shepherd MD [address] [place] [address] PCP - General Internal Medicine 11/22/17 Joe Faria, [facility] [address] [place] [address] Pharmacist Pharmacy 09/05/19 Frederic Trejo [address] [place] [address] Podiatry 09/22/19 Leti Roger DPM [address] [address] Physician Orthopedics 12/17/19 Leti Roger DPM [address] [place] [address] Home Care Provider Orthopedics 05/18/20 Leti Roger DPM [address] [place] [address] Referring Orthopedics 05/18/20 Armond Chapa [address] [address] Cardiology 08/31/20 Alexandre Thomas RN [address] [place] [address] Glue Sprayer Internal Medicine 11/19/20 Ground Service Equipment Mechanic Relationship Specialty Start Date End Date Earl Shepherd MD [address] [place] [address] PCP - General Internal Medicine 11/22/17 Joe Faria, [facility] [address] [place] [address] Pharmacist Pharmacy 09/05/19 Frederic Trejo [address] [place] [address] Podiatry 09/22/19 Leti Roger DPM [address] [place] [address] Physician Orthopedics 12/17/19 Leti Roger DPM [address] [place] [address] Home Care Provider Orthopedics 05/18/20 Leti Roger DPM [address] [place] [address] Referring Orthopedics 05/18/20 Armond Chapa [address] [place] [phone] Cardiology 08/31/20 Alexandre Thomas, RN [address] [place] [address] Glue Sprayer Internal Medicine 11/19/20 Ground Service Equipment Mechanic Relationship Specialty Start Date End Date Earl Shepherd MD [address] [place] [address] PCP - General Internal Medicine 11/22/17 Joe Faria, [facility] [address] [place] [address] Pharmacist Pharmacy 09/05/19 Frederic Trejo [address] [place] [address] Podiatry 09/22/19 Leti Roger DPM [address] [place] [address] Physician Orthopedics 12/17/19 Leti Roger DPM [address] [place], [place] [address] Home Care Provider Orthopedics 05/18/20 Leti Roger DPM [address] [place] [address] Referring Orthopedics 05/18/20 Armond Chapa [address] [phone] Cardiology 08/31/20 Stan Alexandra, pin drafting machine operatorGlue Sprayer Internal Medicine 11/19/20 08/01/22 Alexandre Thomas, CARMELO [address] [place] [address] Glue Sprayer Internal Medicine 11/19/20 Ground Service Equipment Mechanic Relationship Specialty Start Date End Date Earl Shepherd MD [address] [place] [address] PCP - General Internal Medicine 11/22/17 Joe Faria RPh [address] [place] [address] Pharmacist Pharmacy 09/05/19 Frederic Trejo [address] [place] [address] Podiatry 09/22/19 Leti Roger DPM [address] [address] Physician Orthopedics 12/17/19 Leti Roger DPM [address] [place] [address] Home Care Provider Orthopedics 05/18/20 Leti Roger DPM [address] [place], [place] [phone] Referring Orthopedics 05/18/20 Armond Chapa [address] [address] Cardiology 08/31/20 Alexandre Thomas, RN [address] [place], [place] [id number] Glue Sprayer Internal Medicine 08/01/22 Ground Service Equipment Mechanic Relationship Specialty Start Date End Date Earl Shepherd MD [address] [place] [address] PCP - General Internal Medicine 11/22/17 Joe Faria [facility] [address] [place] [address] Pharmacist Pharmacy 09/05/19 Frederic Trejo [address] [place] [address] Podiatry 09/22/19 Leti Roger DPM [address] [address] Physician Orthopedics 12/17/19 Leti Roger DPM [address] [place] [address] Home Care Provider Orthopedics 05/18/20 Leti Roger DPM [address] [place] [address] Referring Orthopedics 05/18/20 Armond Chapa 176 [facility] [address] [address] Cardiology 08/31/20 Alexandre Thomas, CARMELO [address] [place], [place] [phone] Glue Sprayer Internal Medicine 08/01/22 Ground Service Equipment Mechanic Relationship Specialty Start Date End Date Earl Shepherd MD [address] [place] [address] PCP - General Internal Medicine 11/22/17 Joe Faria, [facility] [address] [place] [address] Pharmacist Pharmacy 09/05/19 Frederic Trejo [address] [place] [address] Podiatry 09/22/19 Leti Roger DPM [address] [address] Physician Orthopedics 12/17/19 Leti Roger DPM [address] [place] [address] Home Care Provider Orthopedics 05/18/20 Leti Roger DPM [address] [place] [address] Referring Orthopedics 05/18/20 Armond Chapa [address] [address] Cardiology 08/31/20 Alexandre Douglas, RN [address] [place] [address] Glue Sprayer Internal Medicine 08/01/22 Ground Service Equipment Mechanic Relationship Specialty Start Date End Date Earl Shepherd MD [address] [place] [address] PCP - General Internal Medicine 11/22/17 Joe Faria, [facility] [address] [place] [address] Pharmacist Pharmacy 09/05/19 Frederic Trejo [address] [place] [address] Podiatry 09/22/19 Leti Roger DPM [address] [address] Physician Orthopedics 12/17/19 Leti Roger DPM [address] [place] [address] Home Care Provider Orthopedics 05/18/20 Leti Roger DPM [address] [place], [place] [phone] Referring Orthopedics 05/18/20 Armond Chapa [address] [phone] Cardiology 08/31/20 Alexandre Douglas RN [address] [place] [address] Glue Sprayer Internal Medicine 08/01/22 Ground Service Equipment Mechanic Relationship Specialty Start Date End Date Earl Shepherd MD [address] [place] [address] PCP - General Internal Medicine 11/22/17 Joe Faria [facility] [address] [place] [address] Pharmacist Pharmacy 09/05/19 Frederic Trejo [address] [place] [address] Podiatry 09/22/19 Leti Roger DPM [address] [address] Physician Orthopedics 12/17/19 Leti Roger DPM [address] [place] [address] Home Care Provider Orthopedics 05/18/20 Leti Roger DPM [address] [place], [place] [phone] Referring Orthopedics 05/18/20 Armond Chapa [address] [address] Cardiology 08/31/20 Alexandre Douglas, RN [address] [place], [place] [phone] Glue Sprayer Internal Medicine 08/01/22 Ground Service Equipment Mechanic Relationship Specialty Start Date End Date Earl Shepherd MD [address] [place] [address] PCP - General Internal Medicine 11/22/17 Joe Faria [facility] [address] [place] [address] Pharmacist Pharmacy 09/05/19 Frederic Trejo [address] [place] [address] Podiatry 09/22/19 Leti Roger DPM [address] [address] Physician Orthopedics 12/17/19 Leti Roger DPM [address] [place] [address] Home Care Provider Orthopedics 05/18/20 Leti Roger DPM [address] [place] [address] Referring Orthopedics 05/18/20 Armond Chapa [address] [address] Cardiology 08/31/20 Alexandre Douglas, RN [address] [place] [phone] Glue Sprayer Internal Medicine 08/01/22 Ground Service Equipment Mechanic Relationship Specialty Start Date End Date Earl Shepherd MD [address] [place] [address] PCP - General Internal Medicine 11/22/17 [facility] [address] [place] [address] Pharmacist Pharmacy 09/05/19 Frederic [place] [place] [address] Podiatry 09/22/19 Leti Roger DPM [address] [address] Physician Orthopedics 12/17/19 Leti Roger DPM [address] [place] [address] Home Care Provider Orthopedics 05/18/20 Leti Roger, INGE [address] [place] [address] Referring Orthopedics 05/18/20 Armond Chapa [address] [address] Cardiology 08/31/20 Felipe Carranza, pin drafting machine operatorGlue Sprayer 12/11/22 Ground Service Equipment Mechanic Relationship Specialty Start Date End Date Earl Shepherd MD [address] [place] [address] PCP - General Internal Medicine 11/22/17 Joe Faria, [facility] [address] [place] [address] Pharmacist Pharmacy 09/05/19 Frederic Trejo [address] [place] [address] Podiatry 09/22/19 Leti Roger DPM [address] [place] [address] [place] [address] Physician Orthopedics 12/17/19 Leti Roger DPM [address] [place] [address] Home Care Provider Orthopedics 05/18/20 Leti Roger DPM [address] [place] [address] Referring Orthopedics 05/18/20 Armond Chapa [address] [address] Cardiology 08/31/20 Felipe Carranza, pin drafting machine operatorGlue Sprayer 12/11/22 Ground Service Equipment Mechanic Relationship Specialty Start Date End Date Earl Shepherd MD [address] [place] [address] PCP - General Internal Medicine 11/22/17 Joe Faria [facility] [address] [place] [address] Pharmacist Pharmacy 09/05/19 Frederic Trejo [address] [place] [address] Podiatry 09/22/19 Leti Roger DPM [address] [place] [address] [place] [address] Physician Orthopedics 12/17/19 Leti Roger DPM [address] [place] [address] Home Care Provider Orthopedics 05/18/20 Leti Roger DPM [address] [place] [address] Referring Orthopedics 05/18/20 Armond Chapa [address] [address] Cardiology 08/31/20 Felipe Carranza, pin drafting machine operatorGlue Sprayer 12/11/22 Ground Service Equipment Mechanic Relationship Specialty Start Date End Date Earl Shepherd MD [address] [place] [address] PCP - General Internal Medicine 11/22/17 Joe Faria [facility] [address] [place] [address] Pharmacist Pharmacy 09/05/19 Frederic Trejo [address] [place] [address] Podiatry 09/22/19 Leti Roger DPM [address] [facility] [address] [place] [address] Physician Orthopedics 12/17/19 Leti Roger DPM [address] [place] [address] Home Care Provider Orthopedics 05/18/20 Leti Roger DPM [address] [place] [address] Referring Orthopedics 05/18/20 Armond Chapa [address] [address] Cardiology 08/31/20 Felipe Carranza, pin drafting machine operatorGlue Sprayer 12/11/22 Ground Service Equipment Mechanic Relationship Specialty Start Date End Date Earl Shepherd MD [address] [facility] [place] [address] PCP - General Internal Medicine 11/22/17 Joe Faria, [facility] [address] [facility] [place] [address] Pharmacist Pharmacy 09/05/19 Frederic Trejo [address] [facility] [place] [address] Podiatry 09/22/19 Leti Roger DPM [address] [address] Physician Orthopedics 12/17/19 Leti Roger DPM [address] [place] [address] Home Care Provider Orthopedics 05/18/20 Leti Roger DPM [address] [place] [address] Referring Orthopedics 05/18/20 Armond Chapa [address] [address] Cardiology 08/31/20 Felipe Carranza, pin drafting machine operatorGlue Sprayer 12/11/22 Ground Service Equipment Mechanic Relationship Specialty Start Date End Date Earl Shepherd MD [address] [facility] [place] [address] PCP - General Internal Medicine 11/22/17 Joe Faria, [facility] [address] [facility] [place] [address] Pharmacist Pharmacy 09/05/19 Frederic Trejo [address] [facility] [place] [address] Podiatry 09/22/19 Leti Roger DPM [address] [address] [place] [address] Physician Orthopedics 12/17/19 Leti Roger DPM [address] [place] [address] Home Care Provider Orthopedics 05/18/20 Leti Roger DPM [address] [place] [address] Referring Orthopedics 05/18/20 Armond Chapa [address] [address] Cardiology 08/31/20 Felipe Carranza, pin drafting machine operatorGlue Sprayer 12/11/22 Ground Service Equipment Mechanic Relationship Specialty Start Date End Date Earl Shepherd MD [address] [place] [address] PCP - General Internal Medicine 11/22/17 Joe Faria [facility] [address] [place] [address] Pharmacist Pharmacy 09/05/19 Frederic Trejo [address] [place] [address] Podiatry 09/22/19 Leti Roger DPM [address] [place] [address] [place] [address] Physician Orthopedics 12/17/19 Leti Roger DPM [address] [place] [address] Home Care Provider Orthopedics 05/18/20 Leti Roger DPM [address] [place] [address] Referring Orthopedics 05/18/20 Armond Chapa [address] [address] Cardiology 08/31/20JanuaryFrancisca RN [address] [place], [place] 8109031 Glue Sprayer 03/06/23 Ground Service Equipment Mechanic Relationship Specialty Start Date End Date Earl Shepherd MD [address] [place] [address] PCP - General Internal Medicine 11/22/17 Joe Faria RPh [address] [place] [address] Pharmacist Pharmacy 09/05/19 Frederic Trejo [address] [place] [address] Podiatry 09/22/19 Leti Roger DPM [address] [address] Physician Orthopedics 12/17/19 Leti Roger DPM [address] [place] [address] Home Care Provider Orthopedics 05/18/20 Leti Roger DPM [address] [place] [address] Referring Orthopedics 05/18/20 Armond Chapa [address] [address] Cardiology 08/31/20 Francisca Nelson RN [address] [place] [address] Glue Sprayer 03/06/23 Ground Service Equipment Mechanic Relationship Specialty Start Date End Date Earl Shepherd MD [address] [place], [place] [id number] PCP - General Internal Medicine 11/22/17 Joe Faria RP [address] [place], [place] [id number] Pharmacist Pharmacy 09/05/19 Frederic Trejo [address] [place] [address] Podiatry 09/22/19 Leti Roger DPM [address] [address] Physician Orthopedics 12/17/19 Leti Roger DPM [address] [place] [address] Home Care Provider Orthopedics 05/18/20 Leti Roger DPM [address] [place] [address] Referring Orthopedics 05/18/20 Armond Chapa [address] [place] [phone] Cardiology 08/31/20January, Francisca Velázquez, RN [address] [place] [address] Glue Sprayer 03/06/23 Ground Service Equipment Mechanic Relationship Specialty Start Date End Date Earl Shepherd MD [address] [place], [place] [id number] PCP - General Internal Medicine 11/22/17 Joe Faria, [facility] [address] [place], [place] 9[address]31 Pharmacist Pharmacy 09/05/19 Frederic Trejo [address] [place], [place] 386111 Podiatry 09/22/19 Leti Roger DPM [address] [address] Physician Orthopedics 12/17/19 Leti Roger DPM [address] [place] [address] Home Care Provider Orthopedics 05/18/20 Leti Roger DPM [address] [place] [address] Referring Orthopedics 05/18/20 Armond Chapa [address] [place] [phone] Cardiology 08/31/20January, Francisca Velázquez RN [address] [place] [address] Glue Sprayer 03/06/23 Ground Service Equipment Mechanic Relationship Specialty Start Date End Date Earl Shepherd MD [address] [place] [address] PCP - General Internal Medicine 11/22/17 Joe Faria, [facility] [address] [place] [address] Pharmacist Pharmacy 09/05/19 Frederic Trejo [address] [place] [address] Podiatry 09/22/19 Leti Roger DPM [address] [address] Physician Orthopedics 12/17/19 Leti Roger DPM [address] [place] [address] Home Care Provider Orthopedics 05/18/20 Leti Roger DPM [address] [place] [address] Referring Orthopedics 05/18/20 Armond Chapa [address] [place] [phone] Cardiology 08/31/20January, Francisca Velázquez RN [address] [place], [place] [phone] Glue Sprayer 03/06/23 Ground Service Equipment Mechanic Relationship Specialty Start Date End Date Earl Shepherd MD [address] [place] [address] PCP - General Internal Medicine 11/22/17 Joe Faria RP [address] [place] [address] Pharmacist Pharmacy 09/05/19 Frederic Trejo [address] [place] [address] Podiatry 09/22/19 Leti Roger DPM [address] [address] Physician Orthopedics 12/17/19 Leti Roger DPM [address] [place] [address] Home Care Provider Orthopedics 05/18/20 Leti Roger DPM [address] [place] [address] Referring Orthopedics 05/18/20 Armond Chapa [address] [place] [phone] Cardiology 08/31/20January, Francisca Velázquez RN [address] [place] [phone] Glue Sprayer 03/06/23 Ground Service Equipment Mechanic Relationship Specialty Start Date End Date Earl Shepherd MD [address] [place] [address] PCP - General Internal Medicine 11/22/17 Joe Faria [facility] [address] [place] [address] Pharmacist Pharmacy 09/05/19 Frederic Trejo [address] [place] [address] Podiatry 09/22/19 Leti Roger DPM [address] [address] Physician Orthopedics 12/17/19 Leti Roger DPM [address] [place] [address] Home Care Provider Orthopedics 05/18/20 Leti Roger DPM [address] [place], [place] [address] Referring Orthopedics 05/18/20 NattymadelynArmond hobbs [address] [phone] Cardiology 08/31/20January, Francisca Velázquez RN [address] [place] [address] Glue Sprayer 03/06/23 Ground Service Equipment Mechanic Relationship Specialty Start Date End Date Earl Shepherd MD [address] [place], [place] [id number] PCP - General Internal Medicine 11/22/17 Joe Faria [facility] [address] [place], [place] 688741 Pharmacist Pharmacy 09/05/19 Frederic Trejo [address] [place], [place] [id number] Podiatry 09/22/19 Leti Roger DPM [address] [address] Physician Orthopedics 12/17/19 Leti Roger DPM [address] [place], [place] [address] Home Care Provider Orthopedics 05/18/20 Leti Roger DPM [address] [place], [place] [address] Referring Orthopedics 05/18/20 Armond Chapa [address] [phone] Cardiology 08/31/20 Francisca Nelson RN [address] [place] [address] Glue Sprayer 03/06/23 Ground Service Equipment Mechanic Relationship Specialty Start Date End Date Earl Shepherd MD [address] [place], [place] 461821 PCP - General Internal Medicine 11/22/17 Joe Faria [facility] [address] [place], [place] 110101 Pharmacist Pharmacy 09/05/19 Frederic Trejo [address] [place], [place] 704991 Podiatry 09/22/19 Leti Roger DPM [address] [address] Physician Orthopedics 12/17/19 Leti Roger DPM [address] [place] [address] Home Care Provider Orthopedics 05/18/20 Leti Roger DPM [address] [place] [address] Referring Orthopedics 05/18/20 Armond Chapa [address] [address] Cardiology 08/31/20 Felipe Carranza, pin drafting machine operatorGlue Sprayer 12/11/22 Ground Service Equipment Mechanic Relationship Specialty Start Date End Date Earl Shepherd MD [address] [place], [place] 712371 PCP - General Internal Medicine 11/22/17 Joe Faria [facility] [address] [place], [place] 050801 Pharmacist Pharmacy 09/05/19 Frederic Trejo [address] [place] [place] [address] Podiatry 09/22/19 Leti Roger DPM [address] [address] Physician Orthopedics 12/17/19 Leti Roger DPM [address] [place] [address] Home Care Provider Orthopedics 05/18/20 Leti Roger DPM [address] [place] [address] Referring Orthopedics 05/18/20 Armond Chapa [address] [place] [phone] Cardiology 08/31/20 Alexandre Douglas RN [address] [place] [address] Glue Sprayer Internal Medicine 08/01/22 Ground Service Equipment Mechanic Relationship Specialty Start Date End Date Earl Shepherd MD [address] [place], [place] [id number] PCP - General Internal Medicine 11/22/17 Joe Faria, [facility] [address] [place], [place] [id number] Pharmacist Pharmacy 09/05/19 Frederic Trejo [address] [place] [id number] Podiatry 09/22/19 Leti Roger DPM [address] [address] Physician Orthopedics 12/17/19 Leti Roger DPM [address] [place] [address] Home Care Provider Orthopedics 05/18/20 Leti Roger DPM [address] [place] [address] Referring Orthopedics 05/18/20 Armond Chapa [address] [place] [phone] Cardiology 08/31/20January, Francisca Velázquez RN [address] [place] [address] Glue Sprayer 03/06/23 Ground Service Equipment Mechanic Relationship Specialty Start Date End Date Earl Shepherd MD [address] [place], [place] [id number] PCP - General Internal Medicine 11/22/17 Joe Faria, [facility] [address] [place], [place] [id number] Pharmacist Pharmacy 09/05/19 Frederic Trejo [address] [place], [place] 634241 Podiatry 09/22/19 Leti Roger DPM [address] [place] [address] [place] [address] Physician Orthopedics 12/17/19 Leti Roger DPM [address] [place] [address] Home Care Provider Orthopedics 05/18/20 Leti Roger DPM [address] [place] [address] Referring Orthopedics 05/18/20 Armond Chapa [address] [place] [phone] Cardiology 08/31/20January, Francisca Velázquez RN [address] [place] [address] Glue Sprayer 03/06/23 Ground Service Equipment Mechanic Relationship Specialty Start Date End Date Earl Shepherd MD [address] [place], [place] 463621 PCP - General Internal Medicine 11/22/17 Frederic Trejo [address] [place] [address] Podiatry 09/22/19 Leti Roegr DPM [address] [place] [address] [place] [address] Physician Orthopedics 12/17/19 Leti Roger DPM [address] [place] [address] Home Care Provider Orthopedics 05/18/20 Leti Roger DPM [address] [place] [address] Referring Orthopedics 05/18/20 [place] [address] [place] [address] [phone] Cardiology 08/31/20January, Francisca Velázquez RN [address] [place] [address] Glue Sprayer 03/06/23 Ground Service Equipment Mechanic Relationship Specialty Start Date End Date Earl Shepherd MD [address] [place], [place] 860411 PCP - General Internal Medicine 11/22/17 Frederic Trejo [address] [facility] [place] [place] [id number] Podiatry 09/22/19 Leti Roger DPM [address] [address] Physician Orthopedics 12/17/19 Leti Roger DPM [address] [place] [address] Home Care Provider Orthopedics 05/18/20 Leti Roger DPM [address] [place] [address] Referring Orthopedics 05/18/20 Armond Chapa MD [address] 626851 Cardiology 08/31/20 Francisca Nelson RN [address] [place] [address] Glue Sprayer 03/06/23 Ground Service Equipment Mechanic Relationship Specialty Start Date End Date Earl Shepherd MD [address] [place] [address] PCP - General Internal Medicine 11/22/17 Frederic Trejo [address] [facility] 414511 Podiatry 09/22/19 Leti Roger DPM [address] [address] Physician Orthopedics 12/17/19 Leti Roger DPM [address] [place] [address] Home Care Provider Orthopedics 05/18/20 Leti Roger DPM [address] [place] [address] Referring Orthopedics 05/18/20 Armond Chapa MD [address] 484[address] Cardiology 08/31/20 Francisca Nelson RN [address] [place] [address] Glue Sprayer 03/06/23 Ground Service Equipment Mechanic Relationship Specialty Start Date End Date Earl Shepherd MD [address] [place] [address] PCP - General Internal Medicine 11/22/17 Frederic Trejo [address] [place] [address] Podiatry 09/22/19 Leti Roger DPM [address] [facility] [address] [place] [address] Physician Orthopedics 12/17/19 Leti Roger DPM [address] [place] [address] Home Care Provider Orthopedics 05/18/20 Leti Roger DPM [address] [place] [address] Referring Orthopedics 05/18/20 [place] [address] [place] [phone] Cardiology 08/31/20January, Francisca Velázquez RN [address] [place] [address] Glue Sprayer 03/06/23 Ground Service Equipment Mechanic Relationship Specialty Start Date End Date Earl Shepherd MD [address] [place] [address] PCP - General Internal Medicine 11/22/17 Frederic Treoj [address] [place] [address] Podiatry 09/22/19 Leti Roger DPM [address] [address] Physician Orthopedics 12/17/19 Leti Roger DPM [address] [place] [address] Home Care Provider Orthopedics 05/18/20 Leti Roger DPM [address] [place] [address] Referring Orthopedics 05/18/20 Armond Chapa MD [address] [place] [phone] Cardiology 08/31/20January, Francisca Velázquez RN [address] [place] [address] Glue Sprayer 03/06/23 Ground Service Equipment Mechanic Relationship Specialty Start Date End Date aErl Shepherd MD [address] [place] [address] PCP - General Internal Medicine 11/22/17 Frederic Trejo [address] [place] [address] Podiatry 09/22/19 Leti Roger DPM [address] [address] Physician Orthopedics 12/17/19 Leti Roger DPM [address] [place] [address] Home Care Provider Orthopedics 05/18/20 Leti Roger DPM [address] [place] [address] Referring Orthopedics 05/18/20 Armond Chapa MD [address] [address] Cardiology 08/31/20January, Farncisca Velázquez RN [address] [place] [address] Glue Sprayer 03/06/23 Ground Service Equipment Mechanic Relationship Specialty Start Date End Date Earl Shepherd MD [address] [place] [address] PCP - General Internal Medicine 11/22/17 Frederic Trejo [address] [place] [address] Podiatry 09/22/19 Leti Roger DPM [address] [address] Physician Orthopedics 12/17/19 Leti Roger DPM [address] [place] [address] Home Care Provider Orthopedics 05/18/20 Leti Roger DPM [address] [place] [address] Referring Orthopedics 05/18/20 Armond Chapa MD [address] [address] Cardiology 08/31/20January, Francisca Velázquez RN [address] [place] [address] Glue Sprayer 03/06/23 Ground Service Equipment Mechanic Relationship Specialty Start Date End Date Earl Shepherd MD [address] [place], [place] 567211 PCP - General Internal Medicine 11/22/17 Frederic Trejo [address] [place] [phone] Podiatry 09/22/19 Leti Roger DPM [address] [address] Physician Orthopedics 12/17/19 Leti Roger DPM [address] [place] [address] Home Care Provider Orthopedics 05/18/20 Leti Roger DPM [address] [place] [address] Referring Orthopedics 05/18/20 [place] [address] [place] [address] 024961 Cardiology 08/31/20JanuaryFrancisca RN [address] [place] [address] Glue Sprayer 03/06/23 Ground Service Equipment Mechanic Relationship Specialty Start Date End Date Earl Shepherd MD [address] [place], [place] [id number] PCP - General Internal Medicine 11/22/17 Frederic Trejo [address] [place] [id number] Podiatry 09/22/19 Leti Roger DPM [address] [address] Physician Orthopedics 12/17/19 Leti Roger DPM [address] [place] [address] Home Care Provider Orthopedics 05/18/20 Leti Roger DPM [address] [place] [address] Referring Orthopedics 05/18/20 [place] [address] [place] [address] [phone] Cardiology 08/31/20January, Francisca Velázquez RN [address] [place] [address] Glue Sprayer 03/06/23 Ground Service Equipment Mechanic Relationship Specialty Start Date End Date Earl Shepherd MD [address] [place] [address] PCP - General Internal Medicine 11/22/17 Frederic Trejo [address] [place] [address] Podiatry 09/22/19 Leti Roger DPM [address] [address] Physician Orthopedics 12/17/19 Leti Roger DPM [address] [place], [place] 04[address]262 Home Care Provider Orthopedics 05/18/20 Leti Roger DPM [address] [place] [address] Referring Orthopedics 05/18/20 Armond Chapa MD [address] [address] Cardiology 08/31/20January, Francisca Velázquez, RN [address] [place] [address] Glue Sprayer 03/06/23 Ground Service Equipment Mechanic Relationship Specialty Start Date End Date Earl Shepherd MD [address] [place], [place] 934961 PCP - General Internal Medicine 11/22/17 Frederic Trejo [address] [facility], [place] 976651 Podiatry 09/22/19 Leti Roger DPM [address] [address] Physician Orthopedics 12/17/19 Leti Roger DPM [address] [place] [address] Home Care Provider Orthopedics 05/18/20 Leti Roger DPM [address] [place] [address] Referring Orthopedics 05/18/20 Armond Chapa MD [address] [address] Cardiology 08/31/20January, Francisca Velázquez RN [address] [place] [address] Glue Sprayer 03/06/23 Ground Service Equipment Mechanic Relationship Specialty Start Date End Date Earl Shepherd MD [address] [place] [address] PCP - General Internal Medicine 11/22/17 Frederic Trejo [address] [place] [address] Podiatry 09/22/19 Leti Roger DPM [address] [address] Physician Orthopedics 12/17/19 Leti Roger DPM [address] [place] [address] Home Care Provider Orthopedics 05/18/20 Leti Roger DPM [address] [place] [address] Referring Orthopedics 05/18/20 Armond Chapa MD [address] [place] [address] Cardiology 08/31/20January, Francisca Velázquez RN [address] [place] [address] Glue Sprayer 03/06/23 Adelaide Ann, [facility] [address] [place] [phone] Pharmacist Pharmacy 04/02/24 Ground Service Equipment Mechanic Relationship Specialty Start Date End Date Earl Shepherd MD [address] [place] [address] PCP - General Internal Medicine 11/22/17 Frederic Trejo [address] [place] [address] Podiatry 09/22/19 Leti Roger DPM [address] [address] Physician Orthopedics 12/17/19 Leti Roger DPM [address] [place] [address] Home Care Provider Orthopedics 05/18/20 Leti Roger DPM [address] [place] [address] Referring Orthopedics 05/18/20 Armond Chapa MD [address] [place] [address] [phone] Cardiology 08/31/20January, Francisca Velázquez, RN [address] [place] [phone] Glue Sprayer 03/06/23 Adelaide Ann, [facility] [address] [place] [phone] Pharmacist Pharmacy 04/02/24 Ground Service Equipment Mechanic Relationship Specialty Start Date End Date Earl Shepherd MD [address] [place] [address] PCP - General Internal Medicine 11/22/17 Frederic Trejo [address] [place] [address] Podiatry 09/22/19 Leti Roger DPM [address] [phone] Physician Orthopedics 12/17/19 Leti Roger DPM [address] [place] [address] Home Care Provider Orthopedics 05/18/20 Leti Roger DPM [address] [place] [address] Referring Orthopedics 05/18/20 [place] [address] [place] [address] 585731 Cardiology 08/31/20January, Francisca Velázquez, RN [address] [place] [address] Glue Sprayer 03/06/23 Adelaide Ann, [facility] [address] [place] [phone] Pharmacist Pharmacy 04/02/24 Ground Service Equipment Mechanic Relationship Specialty Start Date End Date Earl Shepherd MD [address] [place], [place] 760561 PCP - General Internal Medicine 11/22/17 Frederic Trejo [address] [place] [address] Podiatry 09/22/19 Leti Roger DPM [address] [phone] Physician Orthopedics 12/17/19 Leti Roger DPM [address] [place], [place] [phone] Home Care Provider Orthopedics 05/18/20 Leti Roger DPM [address] [place] [address] Referring Orthopedics 05/18/20 [place] [address] [place] [address] [phone] Cardiology 08/31/20January, Francisca Velázquez RN [address] [place] [address] Glue Sprayer 03/06/23 Adelaide Ann, [facility] [address] [place] [phone] Pharmacist Pharmacy 04/02/24 Ground Service Equipment Mechanic Relationship Specialty Start Date End Date Earl Shepherd MD [address] [place], [place] [id number] PCP - General Internal Medicine 11/22/17 Frederic Trejo [address] [facility] [place] [address]111 Podiatry 09/22/19 Leti Roger DPM [address] [address] Physician Orthopedics 12/17/19 Leti Roger DPM [address] [place] [address] Home Care Provider Orthopedics 05/18/20 Leti Roger DPM [address] [place] [address] Referring Orthopedics 05/18/20 Armond Chapa MD [address] [address] Cardiology 08/31/20January, Francisca Velázquez RN [address] [place] [address] Glue Sprayer 03/06/23 SethAdelaide sequeira, [facility] [address] [place] [phone] Pharmacist Pharmacy 04/02/24 Ground Service Equipment Mechanic Relationship Specialty Start Date End Date Earl Shepherd MD [address] [place], [place] 682571 PCP - General Internal Medicine 11/22/17 Frederic Trejo [address] [place], [place] 303831 Podiatry 09/22/19 Leti Roger DPM [address] [address] Physician Orthopedics 12/17/19 Leti Roger DPM [address] [place] [address] Home Care Provider Orthopedics 05/18/20 Leti Roger DPM [address] [place] [address] Referring Orthopedics 05/18/20 Armond Chapa MD [address] 981001 Cardiology 08/31/20January, Francisca Velázquez, RN [address] [place] [address] Glue Sprayer 03/06/23 [facility] [address] [place] [phone] Pharmacist Pharmacy 04/02/24 Prabhakar Lopes LSW Machine Plate Stacker Primary Care 05/01/24 Ground Service Equipment Mechanic Relationship Specialty Start Date End Date Earl Shepherd MD [address] [place] [address] PCP - General Internal Medicine 11/22/17 Frederic Trejo [address] [place] [address] Podiatry 09/22/19 Leti Roger DPM [address] [address] Physician Orthopedics 12/17/19 Leti Roger DPM [address] [place] [address] Home Care Provider Orthopedics 05/18/20 Leti Roger DPM [address] [place] [address] Referring Orthopedics 05/18/20 Armond Chapa MD [address] [address] Cardiology 08/31/20January, Francisca Velázquez RN [address] [place] [address] Glue Sprayer 03/06/23 MilbridgeAdelaide sequeira, [facility] [address] [place] [address] Pharmacist Pharmacy 04/02/24 Prabhakar Lopes LSW Machine Plate Stacker Primary Care 05/01/24 Ground Service Equipment Mechanic Relationship Specialty Start Date End Date Earl Shepherd MD [address] [place], [place] [id number] PCP - General Internal Medicine 11/22/17 Frederic Trejo [address] [place], [place] [id number] Podiatry 09/22/19 Leti Roger DPM [address] [address] Physician Orthopedics 12/17/19 Leti Roger DPM [address] [place] [address] Home Care Provider Orthopedics 05/18/20 Leti Roger DPM [address] [place] [address] Referring Orthopedics 05/18/20 Armond Chapa MD [address] 478411 Cardiology 08/31/20January, Francisca Velázquez RN [address] [place] [address] Glue Sprayer 03/06/23 Adelaide Ann, [facility] [address] [place] [phone] Pharmacist Pharmacy 04/02/24 Prabhakar Lopes LSW Machine Plate Stacker Primary Care 05/01/24 Ground Service Equipment Mechanic Relationship Specialty Start Date End Date Earl Shepherd MD [address] [place], [place] [id number] PCP - General Internal Medicine 11/22/17 Frederic Trejo [address] [place], [place] [id number] Podiatry 09/22/19 Leti Roger DPM [address] [phone] Physician Orthopedics 12/17/19 Leti Rgoer DPM [address] [place] [address] Home Care Provider Orthopedics 05/18/20 Leti Roger DPM [address] [place] [address] Referring Orthopedics 05/18/20 [place] [address] [place] [address] 398601 Cardiology 08/31/20January, Francisca Velázquez RN [address] [place] [address] Glue Sprayer 03/06/23 MilbridgeAdelaide sequeira, [facility] [address] [place] [address] Pharmacist Pharmacy 04/02/24 Prabhkaar Lopes LSW Machine Plate Stacker Primary Care 05/01/24 Ground Service Equipment Mechanic Relationship Specialty Start Date End Date Earl Shepherd MD [address] [place], [place] 856651 PCP - General Internal Medicine 11/22/17 Frederic Trejo [address] [place], [place] [id number] Podiatry 09/22/19 Leti Roger DPM [address] [address] Physician Orthopedics 12/17/19 Leti Roger DPM [address] [place] [address] Home Care Provider Orthopedics 05/18/20 Leti Roger DPM [address] [place] [address] Referring Orthopedics 05/18/20 [place] [address] [place] [address] 550411 Cardiology 08/31/20January, Francisca Velázquez, RN [address] [place] [address] Glue Sprayer 03/06/23 Adelaide Ann, [facility] [address] [place] [address] Pharmacist Pharmacy 04/02/24 Ground Service Equipment Mechanic Relationship Specialty Start Date End Date Earl Shepherd MD [address] [place], [place] [id number] PCP - General Internal Medicine 11/22/17 Frederic Trejo [address] [facility] [place] [id number] Podiatry 09/22/19 Leti Roger DPM [address] [address] Physician Orthopedics 12/17/19 Leti Roger DPM [address] [place] [address] Home Care Provider Orthopedics 05/18/20 Leti Roger DPM [address] [place], [place] [phone] Referring Orthopedics 05/18/20 [place] [address] [place] [address] [phone] Cardiology 08/31/20January, Francisca Velázquez RN [address] [place] [address] Glue Sprayer 03/06/23 Adelaide Ann, [facility] [address] [place] [phone] Pharmacist Pharmacy 04/02/24 Ground Service Equipment Mechanic Relationship Specialty Start Date End Date Earl Shepherd MD [address] [place], [place] [id number] PCP - General Internal Medicine 11/22/17 Frederic Trejo [address] [facility] [place] [id number] Podiatry 09/22/19 Leti Roger DPM [address] [address] Physician Orthopedics 12/17/19 Leti Roger DPM [address] [place] [address] Home Care Provider Orthopedics 05/18/20 Leti Roger DPM [address] [place] [address] Referring Orthopedics 05/18/20 [place] [address] [place] [address] [phone] Cardiology 08/31/20JanuaryFrancisca, RN [address] [place] [address] Glue Sprayer 03/06/23 Adelaide Ann, [facility] [address] [place] [address] Pharmacist Pharmacy 04/02/24 Ground Service Equipment Mechanic Relationship Specialty Start Date End Date Earl Shepherd MD [address] [place], [place] 259171 PCP - General Internal Medicine 11/22/17 Frederic Trejo [address] [place], [place] [id number] Podiatry 09/22/19 Leti Roger DPM [address] [address] Physician Orthopedics 12/17/19 Leti Roger DPM [address] [place] [address] Home Care Provider Orthopedics 05/18/20 Leti Roger DPM [address] [place] [address] Referring Orthopedics 05/18/20 Armond Chapa MD [address] 819641 Cardiology 08/31/20January, Francisca Velázquez RN [address] [place] [address] Glue Sprayer 03/06/23 [facility] [address] [place] [phone] Pharmacist Pharmacy 04/02/24 Ground Service Equipment Mechanic Relationship Specialty Start Date End Date Earl Shepherd MD [address] [place], [place] [id number] PCP - General Internal Medicine 11/22/17 Frederic Trejo [address] [place], [place] [id number] Podiatry 09/22/19 Leti Roger DPM [address] [address] Physician Orthopedics 12/17/19 Leti Roger DPM [address] [place] [address] Home Care Provider Orthopedics 05/18/20 Leti Roger DPM [address] [place] [address] Referring Orthopedics 05/18/20 Armond Chapa MD [address] [address] Cardiology 08/31/20January, Francisca Velázquez RN [address] [place] [address] Glue Sprayer 03/06/23 MilbridgeAdelaide, [facility] [address] [place] [address]33[address] Pharmacist Pharmacy 04/02/24 Ground Service Equipment Mechanic Relationship Specialty Start Date End Date Earl Shepherd MD [address] [place], [place] 838001 PCP - General Internal Medicine 11/22/17 Frederic Trejo [address] [facility] [place] 622711 Podiatry 09/22/19 Leti Roger DPM [address] [address] Physician Orthopedics 12/17/19 Leti Roger DPM [address] [place] [address] Home Care Provider Orthopedics 05/18/20 Leti Roger DPM [address] [place] [address] Referring Orthopedics 05/18/20 Armond Chapa MD [address] [facility] [address] 502591 Cardiology 08/31/20January, Francisca Velázquez RN [address] [place] [address] Glue Sprayer 03/06/23 MilbridgeAdelaide, [facility] [address] [place] [phone] Pharmacist Pharmacy 04/02/24 Ground Service Equipment Mechanic Relationship Specialty Start Date End Date Earl Shepherd MD [address] [place], [place] [id number] PCP - General Internal Medicine 11/22/17 Frederic Trejo [address] [place], [place] [id number] Podiatry 09/22/19 Leti Roger DPM [address] [address] Physician Orthopedics 12/17/19 Leti Roger DPM [address] [place] [address] Home Care Provider Orthopedics 05/18/20 Leti Roger DPM [address] [place] [address] Referring Orthopedics 05/18/20 Armond Chapa MD 176 [facility] [address] 484891 Cardiology 08/31/20January, Francisca Velázquez RN [address] [place] [address] Glue Sprayer 03/06/23 Adelaide Ann, [facility] [address] [place] [address] Pharmacist Pharmacy 04/02/24 Ground Service Equipment Mechanic Relationship Specialty Start Date End Date Earl Shepherd MD [address] [place], [place] 722761 PCP - General Internal Medicine 11/22/17 Frederic Trejo [address] [place], [place] [id number] Podiatry 09/22/19 Leti Roger DPM [address] [address] Physician Orthopedics 12/17/19 Leti Roger DPM [address] [place] [address] Home Care Provider Orthopedics 05/18/20 Leti Roger DPM [address] [place] [address] Referring Orthopedics 05/18/20 [place] [address] [place] [address] 164311 Cardiology 08/31/20January, Francisca Velázquez RN [address] [place] [address] Glue Sprayer 03/06/23 Adelaide Ann, [facility] [address] [place] [address]3381256[address]3332 Pharmacist Pharmacy 04/02/24 Nichelle Villatoro APRN.[employer] [address] [place], [place] 185781 Repair Operator Internal Medicine 09/08/24 Rhina Carrasco, SHEAR OPERATOR AUTOMATIC.COMMUNICABLE DISEASE SPECIALIST [address] [place] [address] Repair Operator Internal Medicine 09/08/24 Ground Service Equipment Mechanic Relationship Specialty Start Date End Date Earl Shepherd MD [address] [place], [place] 016001 PCP - General Internal Medicine 11/22/17 Frederic Trejo [address] [place], [place] [id number] Podiatry 09/22/19 Leti Roger DPM [address] [address] Physician Orthopedics 12/17/19 Leti Roger DPM [address] [place] [address] Home Care Provider Orthopedics 05/18/20 Leti Roger DPM [address] [place] [address] Referring Orthopedics 05/18/20 [place] [address] [place] [address] [phone] Cardiology 08/31/20 Francisca Nelson RN [address] [place] [address] Glue Sprayer 03/06/23 Adelaide Ann, [facility] [address] [place] [address]43[address]32 Pharmacist Pharmacy 04/02/24 Nichelle Villatoro APRN.[employer] [address] [place] [address] Repair Operator Internal Medicine 09/08/24 Rhina Carrasco APRN.COMMUNICABLE DISEASE SPECIALIST [address] [place], [place] 663731 Repair Operator Internal Medicine 09/08/24 Ground Service Equipment Mechanic Relationship Specialty Start Date End Date Earl Shepherd MD [address] [place], [place] [id number] PCP - General Internal Medicine 11/22/17 Frederic Trejo [address] [place] [place], [place] [id number] Podiatry 09/22/19 Leti Roger DPM [address] [address] Physician Orthopedics 12/17/19 Leti Roger DPM [address] [place] [address] Home Care Provider Orthopedics 05/18/20 Leti Roegr DPM [address] [place] [address] Referring Orthopedics 05/18/20 [place] [address] [place] [address] Cardiology 08/31/20January, Francisca Velázquez RN [address] [place] [address] Glue Sprayer 03/06/23 MilbridgeAdelaide sequeira, [facility] [address] [place] [address]539[address]32 Pharmacist Pharmacy 04/02/24 Nichelle Villatoro APRN.[employer] [address] [place] [address] [phone] Repair Operator Internal Medicine 09/08/24 Rhina Carrasco APRN.COMMUNICABLE DISEASE SPECIALIST [address] [place] [address] [phone] Repair Operator Internal Medicine 09/08/24 Ground Service Equipment Mechanic Relationship Specialty Start Date End Date Earl Shepherd MD [address] [place] [address] [id number] PCP - General Internal Medicine 11/22/17 Frederic Trejo [address] [place], [place] [id number] Podiatry 09/22/19 Leti Roger DPM [address] [address] Physician Orthopedics 12/17/19 Leti Roger DPM [address] [place], [place] 88559262 Home Care Provider Orthopedics 05/18/20 Leti Roger DPM [address] [place], [place] [phone] Referring Orthopedics 05/18/20 Armond Chapa MD [address] [phone] Cardiology 08/31/20 Francisca Nelson, RN [address] [place] [address] Glue Sprayer 03/06/23 Adelaide Ann, [facility] [address] [place] [phone] Pharmacist Pharmacy 04/02/24 Nichelle Villatoro APRN.[employer] [address] [place] [address] [phone] Repair Operator Internal Medicine 09/08/24 Rhina Carrasco APRN.COMMUNICABLE DISEASE SPECIALIST [address] [place] [address] [phone] Repair Operator Internal Medicine 09/08/24 Ground Service Equipment Mechanic Relationship Specialty [place] [address] [place] [address] [id number] PCP - General Internal Medicine 11/22/17 Frederic Trejo [address] [place] [place], [place] [id number] Podiatry 09/22/19 Leti Roger DPM [address] [address] Physician Orthopedics 12/17/19 Leti Roger DPM [address] [place] [address] Home Care Provider Orthopedics 05/18/20 Leti Roger DPM [address] [place] [address] Referring Orthopedics 05/18/20 Armond Chapa MD [address] 566981 Cardiology 08/31/20January, Francisca Velázquez RN [address] [place] [address] Glue Sprayer 03/06/23 MilbridgeAdelaide, [facility] [address] [place] [address]-0451256-3332 Pharmacist Pharmacy 04/02/24 Nichelle Villatoro APRN.[employer] [address] [place], [place] [phone] Repair Operator Internal Medicine 09/08/24 Rhina Carrasco APRN.COMMUNICABLE DISEASE SPECIALIST [address] [place], [place] [phone] Repair Operator Internal Medicine 09/08/24 Ground Service Equipment Mechanic Relationship Specialty Start Date End Date Earl Shepherd MD [address] [place], [place] [id number] PCP - General Internal Medicine 11/22/17 Frederic Trejo [address] [place], [place] [id number] Podiatry 09/22/19 Leti Roger DPM [address] [address] Physician Orthopedics 12/17/19 Leti Roger DPM [address] [place] [address] Home Care Provider Orthopedics 05/18/20 Leti Roger DPM [address] [place] [address] Referring Orthopedics 05/18/20 Armond Chapa MD [address] [place] [address] 304291 Cardiology 08/31/20January, Francisca Velázquez RN [address] [place], [place] 1958531 Glue Sprayer 03/06/23 MilbridgeAdelaide, [facility] [address] [place] [address] Pharmacist Pharmacy 04/02/24 Nichelle Villatoro, SHEAR OPERATOR [employer] [address] [place] [address] Repair Operator Internal Medicine 09/08/24 Rhina Carrasco APRN.COMMUNICABLE DISEASE SPECIALIST [address] [place], [place] 069211 Repair Operator Internal Medicine 09/08/24 Ground Service Equipment Mechanic Relationship Specialty Start Date End Date Earl Shepherd MD [address] [place], [place] 341981 PCP - General Internal Medicine 11/22/17 Frederic Trejo [address] [place] [address] Podiatry 09/22/19 Leti Roger DPM [address] [address] Physician Orthopedics 12/17/19 Leti Roger DPM [address] [place] [address] Home Care Provider Orthopedics 05/18/20 Leti Roger DPM [address] [place] [address] Referring Orthopedics 05/18/20 Armond Chapa MD [address] [place] [address] [phone] Cardiology 08/31/20January, Francisca Velázquez RN [address] [place] [address] Glue Sprayer 03/06/23 Adelaide Ann, [facility] [address] [place] [phone] Pharmacist Pharmacy 04/02/24 Nichelle Villatoro APRN.[employer] [address] [place], [place] 942601 Repair Operator Internal Medicine 09/08/24 Rhina Carrasco APRN.COMMUNICABLE DISEASE SPECIALIST [address] [place], [place] 273511 Repair Operator Internal Medicine 09/08/24 Ground Service Equipment Mechanic Relationship Specialty Start Date End Date Earl Shepherd MD [address] [place], [place] 888121 PCP - General Internal Medicine 11/22/17 Frederic Trejo [address], [place] [id number] Podiatry 09/22/19 Leti Roger DPM [address] [address] Physician Orthopedics 12/17/19 Leti Roger DPM [address] [place] [address] Home Care Provider Orthopedics 05/18/20 Leti Roger DPM [address] [place] [address] Referring Orthopedics 05/18/20 Armond Chapa MD [address] [place] [address] [phone] Cardiology 08/31/20 Adelaide Ann, [facility] [address] [place] [address] Pharmacist Pharmacy 04/02/24 Nichelle Villatoro, TONIA.[employer] [address] [place], [place] 868551 Repair Operator Internal Medicine 09/08/24 Rhina Carrasco, SHEAR OPERATOR AUTOMATIC.COMMUNICABLE DISEASE SPECIALIST [address] [place], [place] [phone] Repair Operator Internal Medicine 09/08/24 Ground Service Equipment Mechanic Relationship Specialty Start Date End Date Earl Shepherd MD [address] [place], [place] 517441 PCP - General Internal Medicine 11/22/17 Frederic Trejo [address] [place] [address] Podiatry 09/22/19 Leti Roger DPM [address] [address] Physician Orthopedics 12/17/19 Leti Roger DPM [address] [place] [address] Home Care Provider Orthopedics 05/18/20 Leti Roger DPM [address] [place] [address] Referring Orthopedics 05/18/20 Armond Chapa MD [address] [place] [address] 348321 Cardiology 08/31/20 MilbridgeAdelaide, [facility] [address] [place] [phone] Pharmacist Pharmacy 04/02/24 Nichelle Villatoro APRN.[employer] [address] [place] [address] Repair Operator Internal Medicine 09/08/24 Rhina Carrasco SHEAR OPERATOR AUTOMATIC.COMMUNICABLE DISEASE SPECIALIST [address] [place], [place] 444501 Repair Operator Internal Medicine 09/08/24 Ground Service Equipment Mechanic Relationship Specialty Start Date End Date Earl Shepherd MD [address] [place] [address] PCP - General Internal Medicine 11/22/17 Frederic Trejo [address] [place], [place] 632631 Podiatry 09/22/19 Leti Roger DPM [address] [address] Physician Orthopedics 12/17/19 Leti Roger DPM [address] [place] [address] Home Care Provider Orthopedics 05/18/20 Leti Roger DPM [address] [place] [address] Referring Orthopedics 05/18/20 [place] [address] [place] [address] [phone] Cardiology 08/31/20 MilbridgeAdelaide, [facility] [address] [place] [phone] Pharmacist Pharmacy 04/02/24 Nichelle Villatoro APRN.[employer] [address] [place], [place] 095201 Repair Operator Internal Medicine 09/08/24 Rhina Carrasco SHEAR OPERATOR AUTOMATIC.COMMUNICABLE DISEASE SPECIALIST [address] [place], [place] [phone] Repair Operator Internal Medicine 09/08/24 Ground Service Equipment Mechanic Relationship Specialty Start Date End Date Earl Shepherd MD [address] [place], [place] 578501 PCP - General Internal Medicine 11/22/17 Frederic Trejo [address] [place] 581611 Podiatry 09/22/19 Leti Roger DPM [address] [address] Physician Orthopedics 12/17/19 Leti Roger DPM [address] [place] [address] Home Care Provider Orthopedics 05/18/20 Leti Roger DPM [address] [place], [place] [phone] Referring Orthopedics 05/18/20 [place] [address] [place] [address] [phone] Cardiology 08/31/20 MilbridgeAdelaide sequeira, [facility] [address] [place] [phone] Pharmacist Pharmacy 04/02/24 Nichelle Villatoro, TONIA.[employer] [address] [place], [place] 139651 Repair Operator Internal Medicine 09/08/24 Rhina Carrasco APRN.COMMUNICABLE DISEASE SPECIALIST [address] [place], [place] [phone] Repair Operator Internal Medicine 09/08/24 Ground Service Equipment Mechanic Relationship Specialty Start Date End Date Earl Shepherd MD [address] [place], [place] [id number] PCP - General Internal Medicine 11/22/17 Frederic Trejo [address] [place], [place] [id number] Podiatry 09/22/19 Leti Roger DPM [address] [address] Physician Orthopedics 12/17/19 Leti Roger DPM [address] [place] [address] Home Care Provider Orthopedics 05/18/20 Leti Roger DPM [address] [place], [place] [phone] Referring Orthopedics 05/18/20 [place] [address] [place] [address] [phone] Cardiology 08/31/20 MilbridgeAdelaide, [facility] [address] [place] [phone] Pharmacist Pharmacy 04/02/24 Nichelle Villatoro APRN.[employer] [address] [place], [place] 956171 Repair Operator Internal Medicine 09/08/24 Rhina Carrasco APRN.COMMUNICABLE DISEASE SPECIALIST [address] [place], [place] [phone] Repair Operator Internal Medicine 09/08/24 Ground Service Equipment Mechanic Relationship Specialty Start Date End Date Earl Shepherd MD [address] [place] [address] PCP - General Internal Medicine 11/22/17 Frederic Trejo [address] [place] [address] Podiatry 09/22/19 Leti Roger DPM [address] [address] Physician Orthopedics 12/17/19 Leti Roger DPM [address] [place] [address] Home Care Provider Orthopedics 05/18/20 Leti Roger DPM [address] [place] [address] Referring Orthopedics 05/18/20 Armond Chapa MD [address] [place] [address] 286001 Cardiology 08/31/20 MilbridgeAdelaide, [facility] [address] [place] [phone] Pharmacist Pharmacy 04/02/24 Nichelle Villatoro APRN.[employer] [address] [place], [place] 882981 Repair Operator Internal Medicine 09/08/24 Rhina Carrasco APRN.COMMUNICABLE DISEASE SPECIALIST [address] [place] [address] Repair Operator Internal Medicine 09/08/24 Ground Service Equipment Mechanic Relationship Specialty Start Date End Date Earl Shepherd MD [address] [place], [place] 310391 PCP - General Internal Medicine 11/22/17 Frederic Trejo [address] [place] [address] Podiatry 09/22/19 Leti Roger DPM [address] [address] Physician Orthopedics 12/17/19 Leti Roger DPM [address] [place] [address] Home Care Provider Orthopedics 05/18/20 Leti Roger DPM [address] [place] [address] Referring Orthopedics 05/18/20 Armond Chapa MD [address] [place] [address] [phone] Cardiology 08/31/20 [place], [facility] [address] [place] [phone] Pharmacist Pharmacy 04/02/24 Nichelle Villatoro APRN.[employer] [address] [place], [place] 893891 Repair Operator Internal Medicine 09/08/24 Rhina Carrasco APRN.COMMUNICABLE DISEASE SPECIALIST [address] [place], [place] [phone] Repair Operator Internal Medicine 09/08/24 Ground Service Equipment Mechanic Relationship Specialty Start Date End Date Earl Shepherd MD [address] [place], [place] [id number] PCP - General Internal Medicine 11/22/17 Frederic Trejo [address] [place], [place] [id number] Podiatry 09/22/19 Leti Roger DPM [address] [address] Physician Orthopedics 12/17/19 Leti Roger DPM [address] [place] [address] Home Care Provider Orthopedics 05/18/20 Leti Roger DPM [address] [place] [address] Referring Orthopedics 05/18/20 [place] [address] [place] [address] [phone] Cardiology 08/31/20 SethAdelaide sequeira, [facility] [address] [place] [phone] Pharmacist Pharmacy 04/02/24 Nichelle Villatoro APRN.[employer] [address] [place], [place] [phone] Repair Operator Internal Medicine 09/08/24 Rhina Carrasco APRN.COMMUNICABLE DISEASE SPECIALIST [address] [place], [place] [phone] Repair Operator Internal Medicine 09/08/24 Ground Service Equipment Mechanic Relationship Specialty Start Date End Date Earl Shepherd MD [address] [place], [place] [id number] PCP - General Internal Medicine 11/22/17 Frederic Trejo [address] [place] [id number] Podiatry 09/22/19 Leti Roger DPM [address] [address] Physician Orthopedics 12/17/19 Leti Roger DPM [address] [place] [address] Home Care Provider Orthopedics 05/18/20 Leti Roger DPM [address] [place] [address] Referring Orthopedics 05/18/20 [place] [address] [place] [address] [phone] Cardiology 08/31/20 Adelaide Ann, [facility] [address] [place] [phone] Pharmacist Pharmacy 04/02/24 Nichelle Villatoro APRN.[employer] [address] [place], [place] 673831 Repair Operator Internal Medicine 09/08/24 Rhina Carrasco APRN.COMMUNICABLE DISEASE SPECIALIST [address] [place] [address] Repair Operator Internal Medicine 09/08/24 Ground Service Equipment Mechanic Relationship Specialty Start Date End Date Earl Shepherd MD [address] [place] [address] PCP - General Internal Medicine 11/22/17 Frederic Trejo [address] [place], [place] 157091 Podiatry 09/22/19 Leti Roger DPM [address] [address] Physician Orthopedics 12/17/19 Leti Roger DPM [address] [place] [address] Home Care Provider Orthopedics 05/18/20 Leti Roger DPM [address] [place] [address] Referring Orthopedics 05/18/20 [place] [address] [place] [address] 02896 Cardiology 08/31/20 SethAdelaide sequeira, [facility] [address] [place] [phone] Pharmacist Pharmacy 04/02/24 Nichelle Villatoro APRN.[employer] [address] [place] [address] Repair Operator Internal Medicine 09/08/24 Rhina Carrasco APRN.COMMUNICABLE DISEASE SPECIALIST [address] [place], [place] 935771 Repair Operator Internal Medicine 09/08/24 Ground Service Equipment Mechanic Relationship Specialty Start Date End Date Earl Shepherd MD [address] [place], [place] 358471 PCP - General Internal Medicine 11/22/17 Frederic Trejo [address] [place], [place] [phone] Podiatry 09/22/19 Leti Roger DPM [address] [address] Physician Orthopedics 12/17/19 Leti Roger DPM [address] [place] [address] Home Care Provider Orthopedics 05/18/20 Leti Roger DPM [address] [place] [address] Referring Orthopedics 05/18/20 Armond Chapa MD [address] [place] [address] [phone] Cardiology 08/31/20 [place], [facility] [address] [place] [phone] Pharmacist Pharmacy 04/02/24 Nichelle Villatoro APRN.[employer] [address] [place], [place] [phone] Repair Operator Internal Medicine 09/08/24 Rhina Carrasco APRN.COMMUNICABLE DISEASE SPECIALIST [address] [place], [place] 703211 Repair Operator Internal Medicine 09/08/24 Ground Service Equipment Mechanic Relationship Specialty Start Date End Date Earl Shepherd MD [address] [place], [place] [id number] PCP - General Internal Medicine 11/22/17 Frederic Trejo [address] [place], [place] [id number] Podiatry 09/22/19 Leti Roger DPM [address] [address] Physician Orthopedics 12/17/19 Leti Roger DPM [address] [place] [address] Home Care Provider Orthopedics 05/18/20 Leti Roger DPM [address] [place] [address] Referring Orthopedics 05/18/20 [place] [address] [place] [address] 979411 Cardiology 08/31/20 Adelaide Ann, [facility] [address] [place] [phone] Pharmacist Pharmacy 04/02/24 Nichelle Villatoro APRN.[employer] [address] [place], [place] [phone] Repair Operator Internal Medicine 09/08/24 Rhina Carrasco APRN.COMMUNICABLE DISEASE SPECIALIST [address] [place], [place] [phone] Repair Operator Internal Medicine 09/08/24 Ground Service Equipment Mechanic Relationship Specialty Start Date End Date Earl Shepherd MD [address] [place], [place] [id number] PCP - General Internal Medicine 11/22/17 Frederic Trejo [address] [place], [place] [id number] Podiatry 09/22/19 Leti Roger DPM [address] [address] Physician Orthopedics 12/17/19 Leti Roger DPM [address] [place] [address] Home Care Provider Orthopedics 05/18/20 Leti Roger DPM [address] [place] [address] Referring Orthopedics 05/18/20 Armond Chapa MD [address] [phone] Cardiology 08/31/20 Adelaide Ann, [facility] [address] [place] [phone] Pharmacist Pharmacy 04/02/24 Nichelle Villatoro APRN.[employer] [address] [place] [address] Repair Operator Internal Medicine 09/08/24 Rhina Carrasco APRN.COMMUNICABLE DISEASE SPECIALIST [address] [place], [place] 598931 Repair Operator Internal Medicine 09/08/24 Ground Service Equipment Mechanic Relationship Specialty Start Date End Date Earl Shepherd MD [address] [place], [place] 610541 PCP - General Internal Medicine 11/22/17 Frederic Trejo [address] [place], [place] [phone] Podiatry 09/22/19 Leti Roger DPM [address] [address] Physician Orthopedics 12/17/19 Leti Roger DPM [address] [place] [address] Home Care Provider Orthopedics 05/18/20 Leti Roger DPM [address] [place] [address] Referring Orthopedics 05/18/20 [place] [address] [place] [address] [phone] Cardiology 08/31/20 Adelaide Ann, [facility] [address] [place] [address] Pharmacist Pharmacy 04/02/24 Nichelle Villatoro APRN.[employer] [address] [place], [place] 776621 Repair Operator Internal Medicine 09/08/24 Rhina Carrasco APRN.COMMUNICABLE DISEASE SPECIALIST [address] [place], [place] 796491 Repair Operator Internal Medicine 09/08/24 Ground Service Equipment Mechanic Relationship Specialty Start Date End Date Earl Shepherd MD [address] [place], [place] 792131 PCP - General Internal Medicine 11/22/17 Frederic Trejo [address] [place], [place] [phone] Podiatry 09/22/19 Leti Roger DPM [address] [address] Physician Orthopedics 12/17/19 Leti Roger DPM [address] [place] [address] Home Care Provider Orthopedics 05/18/20 Leti Roger DPM [address] [place] [address] Referring Orthopedics 05/18/20 [place] [address] [place] [address] 767131 Cardiology 08/31/20 SethAdelaide sequeira, [facility] [address] [place] [address] Pharmacist Pharmacy 04/02/24 Nichelle Villatoro APRN.[employer] [address] [place], [place] 541841 Repair Operator Internal Medicine 09/08/24 Rhina Carrasco APRN.COMMUNICABLE DISEASE SPECIALIST [address] [place], [place] 357791 Repair Operator Internal Medicine 09/08/24 Ground Service Equipment Mechanic Relationship Specialty Start Date End Date Earl Shepherd MD [address] [place], [place] [id number] PCP - General Internal Medicine 11/22/17 Frederic Trejo [address] [place], [place] [id number] Podiatry 09/22/19 Leti Roger DPM [address] [address] Physician Orthopedics 12/17/19 Leti Roger DPM [address] [place] [address] Home Care Provider Orthopedics 05/18/20 Leti Roger DPM [address] [place] [address] Referring Orthopedics 05/18/20 [place] [address] [place] [address] 610601 Cardiology 08/31/20 Adelaide Ann, [facility] [address] [place] [address] Pharmacist Pharmacy 04/02/24 Nichelle Villatoro, TONIA.[employer] [address] [place], [place] 917801 Repair Operator Internal Medicine 09/08/24 Rhina Carrasco APRN.COMMUNICABLE DISEASE SPECIALIST [address] [place], [place] 308941 Repair Operator Internal Medicine 09/08/24 Ground Service Equipment Mechanic Relationship Specialty Start Date End Date Earl Shepherd MD [address] [place], [place] [id number] PCP - General Internal Medicine 11/22/17 Frederic Trejo [address] [place], [place] [id number] Podiatry 09/22/19 Leti Roger DPM [address] [address] Physician Orthopedics 12/17/19 Leti Roger DPM [address] [place] [address] Home Care Provider Orthopedics 05/18/20 Leti Roger DPM [address] [place] [address] Referring Orthopedics 05/18/20 [place] [address] [place] [address] 364081 Cardiology 08/31/20 Adelaide Ann, [facility] [address] [place] [address] Pharmacist Pharmacy 04/02/24 Nichelle Villatoro APRN.[employer] [address] [place] [address] Repair Operator Internal Medicine 09/08/24 Rhina Carrasco SHEAR OPERATOR [employer].COMMUNICABLE DISEASE SPECIALIST [address] [place], [place] 717581 Repair Operator Internal Medicine 12/23/24 Ground Service Equipment Mechanic Relationship Specialty Start Date End Date Earl Shepherd MD [address] [place], [place] [id number] PCP - General Internal Medicine 11/22/17 Frederic Trejo [address] [place], [place] [id number] Podiatry 09/22/19 Leti Roger DPM [address] [address] Physician Orthopedics 12/17/19 Leti Roger DPM [address] [place] [address] Home Care Provider Orthopedics 05/18/20 Leti Roger DPM [address] [place] [address] Referring Orthopedics 05/18/20 Armond Chapa MD [address] [address] Cardiology 08/31/20 Adelaide Ann, [facility] [address] [place] [phone] Pharmacist Pharmacy 04/02/24 Nichelle Villatoro APRN.[employer] [address] [place], [place] 843021 Repair Operator Internal Medicine 09/08/24 Rhina Carrasco APRN.COMMUNICABLE DISEASE SPECIALIST [address] [place], [place] 166681 Repair Operator Internal Medicine 09/08/24 12/19/24 Team Status: Active Member Role Status Dates Dr. Earl Shepherd MD Primary Care Provider Active Team Status: Inactive Member Role Status Dates Dr. Earl Shepherd MD Primary Care Provider Active Start: November 12, 2024 End: November 12, 2024 Dr. Sharon Barnes DO Attending Provider Active Start: November 12, 2024 End: November 12, 2024 Dr. Sharon Barnes DO Referring Provider Active Start: November 12, 2024 End: November 12, 2024 Team Status: Inactive Member Role Status Dates Dr. Earl Shepherd MD Primary Care Provider Active Start: December 21, 2024 End: December 21, 2024 Dr. Cristopher Aparicio MD Emergency Provider Active Sta rt: December 21, 2024 End: December 21, 2024 Ground Service Equipment Mechanic Relationship Specialty Start Date End Date Earl Shepherd MD [address] [place], [place] 581811 PCP - General Internal Medicine 11/22/17 Frederic Trejo [address] [place], [place] [id number] Podiatry 09/22/19 Leti Roger DPM [address] [address] Physician Orthopedics 3/18/20 Leti Roger DPM [address] [place], [place] 89891262 Home Care Provider Orthopedics 05/18/20 Leti Roger DPM [address] [place], [place] 77758262 Referring Orthopedics 05/18/20 [place] [address] [place] [address] [phone] Cardiology 08/31/20 [facility] [address] [place] [phone] Pharmacist Pharmacy 04/02/24 Nichelle Villatoro APRN.[employer] [address] [place] [address] Repair Operator Internal Medicine 09/08/24 Rhina Carrasco APRN.COMMUNICABLE DISEASE SPECIALIST [address] [place] [address] Repair Operator Internal Medicine 12/23/24 Ground Service Equipment Mechanic Relationship Specialty Start Date End Date Earl Shepherd MD [address] [place] [address] PCP - General Internal Medicine 11/22/17 Frederic Trejo [address] [place] [address] Podiatry 09/22/19 Leti Roger DPM [address] [address] Physician Orthopedics 12/17/19 Leti Roger DPM [address] [place], [place] 865972 Home Care Provider Orthopedics 05/18/20 Leti Roger DPM [address] [place], [place] 105422 Referring Orthopedics 05/18/20 Armond Chapa MD [address] [id number] Cardiology 08/31/20 [place], [facility] [address] [place] [phone] Pharmacist Pharmacy 04/02/24 Nichelle Villatoro, [employer] [address] [place], [place] 726371 Repair Operator Internal Medicine 09/08/24 Rhina Carrasco, [employer] O[employer].COMMUNICABLE DISEASE SPECIALIST [address] [place], [place] [phone] Repair Operator Internal Medicine 12/23/24 Team Status: Inactive Member Role Status Dates Dr. Earl Shepherd MD Primary Care Provider Active Start: December 21, 2024 End: December 21, 2024 Dr. Cristopher Aparicio MD Attending Provider Active Sta rt: December 21, 2024 End: December 21, 2024 Dr. Cristopher Aparicio MD Emergency Provider Active Sta rt: December 21, 2024 End: December 21, 2024 Team Status: Inactive Member Role Status Dates Dr. Earl Shepherd MD Primary Care Provider Active Start: February 09, 2025 End: February 09, 2025 Dr. Sharon Barnes DO Attending Provider Active Start: February 09, 2025 End: February 09, 2025 Dr. Sharon Barnes DO Referring Provider Active Start: February 09, 2025 End: February 09, 2025 Ground Service Equipment Mechanic Relationship Specialty Start Date End Date Earl Shepherd MD [address] [place] [address] PCP - General Internal Medicine 11/22/17 Frederic Trejo [address] [place] [address] Podiatry 09/22/19 Leti Roger DPM [address] [address] Physician Orthopedics 12/17/19 Leti Roger DPM [address] [place] [address] Home Care Provider Orthopedics 05/18/20 Leti Roger DPM [address] [place] [address] Referring Orthopedics 05/18/20 Armond Chapa MD [address] [address] Cardiology 08/31/20 [place], [facility] [address] [place] [phone] Pharmacist Pharmacy 04/02/24 Rhina Carrasco APRN.COMMUNICABLE DISEASE SPECIALIST [address] [place] [address] Repair Operator Internal Medicine 12/23/24 Nichelle Villatoro APRN.[employer] [address] [place], [place] 393091 Repair Operator Internal Medicine 02/18/25 Ground Service Equipment Mechanic Relationship Specialty Start Date End Date Earl Shepherd MD [address] [place], [place] 407131 PCP - General Internal Medicine 11/22/17 Frederic Trejo [address] [place], [place] [phone] Podiatry 09/22/19 Leti Roger DPM [address] [address] Physician Orthopedics 12/17/19 Leti Roger DPM [address] [place] [address] Home Care Provider Orthopedics 05/18/20 Leti Roger DPM [address] [place] [address] Referring Orthopedics 05/18/20 [place] [address] [place] [address] 71843 Cardiology 08/31/20 [place], [facility] [address] [place] [phone] Pharmacist Pharmacy 04/02/24 Rhina Carrasco, [employer]PER[employer].COMMUNICABLE DISEASE SPECIALIST [address] [place], [place] 321201 Repair Operator Internal Medicine 12/23/24 Nichelle Villatoro APRN.[employer] [address] [place], [place] 748261 Repair Operator Internal Medicine 02/18/25 Ground Service Equipment Mechanic Relationship Specialty Start Date End Date Earl Shepherd MD [address] [place], [place] [id number] PCP - General Internal Medicine 11/22/17 Frederic Trejo [address] [place], [place] [id number] Podiatry 09/22/19 Leti Roger DPM [address] [address] Physician Orthopedics 12/17/19 Leti Roger DPM [address] [place] [address] Home Care Provider Orthopedics 05/18/20 Leti Roger DPM [address] [place] [address] Referring Orthopedics 05/18/20 Armond Chapa MD [address] 133511 Cardiology 08/31/20 SethAdelaide sequeira, [facility] [address] [place] [phone] Pharmacist Pharmacy 04/02/24 Rhina Carrasco APRN.COMMUNICABLE DISEASE SPECIALIST [address] [place], [place] [phone] Repair Operator Internal Medicine 12/23/24 Nichelle Villatoro APRN.[employer] [address] [place], [place] 091431 Repair Operator Internal Medicine 02/18/25 Ground Service Equipment Mechanic Relationship Specialty Start Date End Date Earl Shepherd MD [address] [place], [place] 313631 PCP - General Internal Medicine 11/22/17 Frederic Trejo [address] [place], [place] [id number] Podiatry 09/22/19 Leti Roger DPM [address] [address] Physician Orthopedics 12/17/19 Leti Roger DPM [address] [place] [address] Home Care Provider Orthopedics 05/18/20 Leti Roger DPM [address] [place] [address] Referring Orthopedics 05/18/20 Armond Chapa MD [address] 745181 Cardiology 08/31/20 Adelaide Ann, [facility] [address] [place] [address]17003332 Pharmacist Pharmacy 04/02/24 Rhina Carrasco APRN.COMMUNICABLE DISEASE SPECIALIST [address] [place] [address] Repair Operator Internal Medicine 12/23/24 Nichelle Villatoro APRN.[employer] [address] [place] [address] Repair Operator Internal Medicine 02/18/25 Ground Service Equipment Mechanic Relationship Specialty Start Date End Date Earl Shepherd MD [address] [place], [place] 296131 PCP - General Internal Medicine 11/22/17 Frederic Trejo [address] [place] 992931 Podiatry 09/22/19 Leti Roger DPM [address] [address] Physician Orthopedics 12/17/19 Leti Roger DPM [address] [place] [address] Home Care Provider Orthopedics 05/18/20 Leti Roger DPM [address] [place] [address] Referring Orthopedics 05/18/20 Armond Chapa MD [address] 583081 Cardiology 08/31/20 MilbridgeAdelaide sequeira, [facility] [address] [place] [address] Pharmacist Pharmacy 04/02/24 Rhina Carrasco APRN.COMMUNICABLE DISEASE SPECIALIST [address] [place], [place] 154931 Repair Operator Internal Medicine 12/23/24 Nichelle Villatoro, T[employer]IA.[employer] [address] [place] [address] Repair Operator Internal Medicine 02/18/25 Ground Service Equipment Mechanic Relationship Specialty Start Date End Date Earl Shepherd MD [address] [place], [place] 622201 PCP - General Internal Medicine 11/22/17 Frederic Trejo [address] [place], [place] 499891 Podiatry 09/22/19 Leti Roger DPM [address] [address] Physician Orthopedics 12/17/19 Leti Roger DPM [address] [place] [address] Home Care Provider Orthopedics 05/18/20 Leti Roger DPM [address] [place] [address] Referring Orthopedics 05/18/20 [place] [address] [place] [address] 434481 Cardiology 08/31/20 Adelaide Ann, [facility] [address] [place] [address] Pharmacist Pharmacy 04/02/24 Rhina Carrasco SHEAR OPERATOR AUTOMATIC.COMMUNICABLE DISEASE SPECIALIST [address] [place], [place] 940651 Repair Operator Internal Medicine 12/23/24 Nichelle Villatoro APRN.[employer] [address] [place], [place] 512401 Repair Operator Internal Medicine 02/18/25 Ground Service Equipment Mechanic Relationship Specialty Start Date End Date Earl Shepherd MD [address] [place], [place] 298991 PCP - General Internal Medicine 11/22/17 Frederic Trejo [address] [place], [place] [phone] Podiatry 09/22/19 Leti Roger DPM [address] [address] Physician Orthopedics 12/17/19 Leti Roger DPM [address] [place] [address] Home Care Provider Orthopedics 05/18/20 Leti Roger DPM [address] [place] [address] Referring Orthopedics 05/18/20 Armond Chapa MD [address] 704131 Cardiology 08/31/20 Adelaide Ann, [facility] [address] [place] [address] Pharmacist Pharmacy 04/02/24 Rhina Carrasco APRN.COMMUNICABLE DISEASE SPECIALIST [address] [place], [place] 903701 Repair Operator Internal Medicine 12/23/24 Nichelle Villatoro APRN.[employer] [address] [place], [place] 657741 Repair Operator Internal Medicine 02/18/25 Ground Service Equipment Mechanic Relationship Specialty Start Date End Date Earl Shepherd MD [address] [place], [place] [id number] PCP - General Internal Medicine 11/22/17 Frederic Trejo [address] [place], [place] [id number] Podiatry 09/22/19 Leti Roger DPM [address] [address] Physician Orthopedics 12/17/19 Leti Roger DPM [address] [place] [address] Home Care Provider Orthopedics 05/18/20 Leti Roger DPM [address] [place] [address] Referring Orthopedics 05/18/20 Armond Chapa MD [address] [address] Cardiology 08/31/20 Adelaide Ann, [facility] [address] [place] [phone] Pharmacist Pharmacy 04/02/24 Rhina Carrasco APRN.COMMUNICABLE DISEASE SPECIALIST [address] [place] [address] Repair Operator Internal Medicine 12/23/24 Nichelle Villatoro APRN.[employer] [address] [place] [address] Repair Operator Internal Medicine 02/18/25 Ground Service Equipment Mechanic Relationship Specialty Start Date End Date Earl Shepherd MD [address] [place], [place] 454161 PCP - General Internal Medicine 11/22/17 Frederic Trejo [address] [place], [place] 570561 Podiatry 09/22/19 Leti Roger DPM [address] [address] Physician Orthopedics 12/17/19 Leti Roger DPM [address] [place] [address] Home Care Provider Orthopedics 05/18/20 Leti Roger DPM [address] [place] [address] Referring Orthopedics 05/18/20 Armond Chapa MD [address] [address] Cardiology 08/31/20 Adelaide Ann, [facility] [address] [place] [address] Pharmacist Pharmacy 04/02/24 Rhina Carrasco APRN.COMMUNICABLE DISEASE SPECIALIST [address] [place] [address] Repair Operator Internal Medicine 12/23/24 Nichelle Villatoro APRN.[employer] [address] [place] [address] Repair Operator Internal Medicine 02/18/25 Ground Service Equipment Mechanic Relationship Specialty Start Date End Date Earl Shepherd MD [address] [place], [place] 601321 PCP - General Internal Medicine 11/22/17 Frederic Trejo [address] [place], [place] 245051 Podiatry 09/22/19 Leti Roger DPM [address] [address] Physician Orthopedics 12/17/19 Leti Roger DPM [address] [place] [address] Home Care Provider Orthopedics 05/18/20 Leti Roger DPM [address] [place] [address] Referring Orthopedics 05/18/20 [place] [address] [place] [address] Cardiology 08/31/20 Adelaide Ann, [facility] [address] [place] [address] Pharmacist Pharmacy 04/02/24 Rhina Carrasco SHEAR OPERATOR AUTOMATIC.COMMUNICABLE DISEASE SPECIALIST [address] [place] [address] Repair Operator Internal Medicine 12/23/24 Nichelle Villatoro, SHEAR OPERATOR [employer] [address] [place] [address] Repair Operator Internal Medicine 02/18/25 Goals (unrecognized section and content) Goals may be documented in a n alternate sectionGoals may be documented in an alternate section FOR RECORDS PERTAINING TO PATIENTS WHO ARE OR HAVE BEEN ENROLLED IN A CHEMICAL DEPENDENCY/SUBSTANCEABUSE PROGRAM, SOME INFORMATION MAY BE OMITTED. This clinical summary was aggregated from multiple sources. Caution should be exercised in using it in the provision of clinical care. This summary normalizes information from multiple sources, and as a consequence, information in this document may materially change the coding, format and clinical context of patient data. In addition, data may be omitted in some cases. CLINICAL DECISIONS SHOULD BE BASED ON THE PRIMARY CLINICAL RECORDS. [facility]. provides no warranty or guarantee of the accuracy or completeness of information in this document.
[2025-06-13 11:25] LABS: Hematocrit 30.1 % (37-47); Hemoglobin 9.7 g/dL (12.0-15.0); Mean Corp Hgb Conc 32.2 g/dL (32-36); Mean Corpuscular Volume 91.8 fL (81-99); Mean Platelet Vol. 9.8 fl (6.2-12.0); Platelet Count 208 K/mm3 (150-450); RBC Distribution Width CV 13.8 % (11.6-14.6); RBC Distribution Width SD 46.4 fl (35.1-43.9); Red Blood Count 3.28 M/mm3 (4.2-5.4); White Blood Count 7.1 K/mm3 (4.4-11.0)
[2025-06-13 12:01] LABS: PTHIN 255 pg/mL (11-61)
[2025-06-13 12:06] LABS: Albumin, Serum 3.9 g/dL (3.4-4.8); Anion Gap 12 (5-15); BUN 32 mg/dL (4-19); BUN/Creat Ratio 18.4 RATIO (10-20); Calcium,Total 10.1 mg/dL (7.6-11.0); Carbon Dioxide 20.6 mmol/L (21.0-32.0); Chloride 109 mmol/L (98-108); Glucose 141 mg/dL (70-99); Potassium 4.4 mmol/L (3.3-5.1)
[2025-06-13 13:34] LABS: Creatinine, Urine (random) 64.10 mg/dL (28.00-217.00); Microalbumin,Random Urine 40.4 mg/L (<20 mg/L)
[2025-06-13 13:48] LABS: Ferritin 153 ng/mL (22-378); Iron 49 ug/dL (50-170); Iron Binding Capacity,Total 245 ug/dL (250-450); Iron Binding Capacity,Unsat 196 ug/dL (228-428)
== END | disposition home or self-care (01) ==
LOC: LAB 10:39
PROVIDERS: PCP Internal Medicine; Referring Provider Internal Medicine Nephrology; Visit Provider Internal Medicine Nephrology
DX: E11.22 Type 2 diabetes mellitus with diabetic chronic kidney disease (principal); N18.32 Chronic kidney disease, stage 3b; D64.9 Anemia, unspecified; N25.81 Secondary hyperparathyroidism of renal origin
CPT/HCPCS: 36415; 80069; 82043; 82570; 82728; 83540; 83550; 83970; 85027